=== PATIENT | male | born 1960 | race Caucasian/White ===

== ENCOUNTER 2021-03-29 19:48 | Inpatient (IN) | payer OTHER, SELFPAY ==
[2021-03-29] VITALS (10 sets, daily range): BP systolic 132–148; BP diastolic 78–89; PULSE 69–75; RESP 12–18; TEMP 36.5; O2SAT 97–100
--- NOTE | ~2021-03-29 | MR_ITS ---
EXAMINATION: MRA brain wo con DATE: 03/31/2021 16:36 INDICATION: Right hemiparesis. TECHNIQUE: Magnetic resonance angiography (MRA) of the brain was performed without intravenous contra st with T1-weighted SPGR by the 3D [id number]-dl-roriyd technique. Maximum intensity projection 3D-reconstr uctions were obtained. COMPARISON: Head CT 03/29/2021, brain MRI 08/18/2019 FINDINGS: There is severe motion artifact. There is a large distribution of chronic encephalomalacia in right f rontotemporal parietal region. IMPRESSION: 1. Severe motion artifact, which severely obscures the arteries. 2. Large distribution of chronic encephalomalacia in right frontotemporal parietal region. Reviewed, dictated and finalized at location B. IMPRESSION: 1. Severe motion artifact, which severely obscures the arteries. 2. Large distribution of chronic encephalomalacia in right frontotemporal parie lu region.
--- NOTE | ~2021-03-29 | CT_ITS ---
EXAMINATION: CT abdomen pelvis wo con DATE: 04/02/2021 14:20 INDICATION: Abdominal pain. Constipation. TECHNIQUE: Computed tomography (CT) of the abdomen and pelvis was performed without intravenous contr ast. The dose-length product was 1395.48 mGy-cm. Automated exposure control and iterative reconstruct ion technique were employed. COMPARISON: None. FINDINGS: Small left pleural effusion with underlying compressive atelectasis. Trace right pleural ef fusion. There is atherosclerosis without aneurysm. Younger catheter present in the bladder. Bladder wal l appears mildly thickened, although decompressed. 2.8 cm right renal cyst. There are calcified granulomas of the spleen. The liver, pancreas, adrenal g lands and left kidney are unremarkable. Normal appendix. Nonobstructive bowel gas pattern. Moderate o steoarthritis of the hips. Mild levoscoliosis. Advanced multilevel spondylosis of the lower thoracic and lumbar spine. Tiny fat-containing umbilical hernia. Gallbladder is present. IMPRESSION: 1. Small pleural effusions, left greater than right. 2: Possible mild bladder wall thickening, although not well distended. Consider cystitis in the appro priate clinical setting. Younger catheter present. Reviewed, dictated and finalized at location A. IMPRESSION: 1. Small pleural effusions, left greater than right. 2: Possible mild bladder wall thickening, although not well distended. Consider cystitis in the appropriate clinical setting. Younger catheter present.
--- NOTE | ~2021-03-29 | XR_ITS ---
XR chest 1V portable 03/29/2021 20:27 Indication: Chest pain Procedure: AP portable chest Comparison: 08/18/2019 Findings: Status post median sternotomy for CABG. Moderate cardiomegaly. Mild interstitial edema. Sma ll left pleural effusion. No pneumothorax. No acute osseous abnormality. Impression: 1: Cardiomegaly with mild interstitial edema. 2: Small left pleural effusion. Reviewed, dictated and finalized at location A. Impression: 1: Cardiomegaly with mild interstitial edema. 2: Small left pleural effusion.
--- NOTE | ~2021-03-29 | US_ITS ---
EXAMINATION: US renal BI DATE: 03/30/2021 14:27 INDICATION: Acute kidney injury. TECHNIQUE: Multiple ultrasound grayscale images of the kidneys were obtained. COMPARISON: Chest CT 05/01/2019 FINDINGS: The right kidney measures 11.9 x 7.3 x 4.9 cm. The left kidney measures 10.4 x 5.8 x 6.0 cm. The kidn eys demonstrate normal parenchymal echogenicity. There is a 3.0 cm cyst in right kidney. There is no hydronephrosis. The bladder is decompressed by a Younger catheter. IMPRESSION: 1. Normal kidney sizes. No hydronephrosis. Reviewed, dictated and finalized at location B.
--- NOTE | ~2021-03-29 | CT_ITS ---
EXAMINATION: CT brain wo con DATE: 03/29/2021 20:22 INDICATION: Right-sided weakness TECHNIQUE: Computed tomography (CT) of the head was performed without intravenous contrast. The dose- length product was 681.00 mGy-cm. Automated exposure control and iterative reconstruction technique w ere employed. COMPARISON: CT dated 08/17/2019 FINDINGS: There is a chronic right MCA distribution infarction with encephalomalacia and developing d ystrophic calcification. No ventriculomegaly or midline shift. Basilar cisterns are patent. There is intracranial atherosclerosis. No acute intracranial hemorrhage, infarction, mass or mass effect. Mild mucosal thickening of the maxillary and ethmoid sinuses. Mastoids are pneumatized. No depressed skul l fractures. Generalized atrophy. There are scattered mild periventricular and subcortical white hector er changes, most likely related to small vessel ischemic disease (microangiopathy). IMPRESSION: 1. No acute intracranial abnormality. 2: Large chronic right MCA distribution infarction with associated dystrophic calcification. 3: Chronic age-related findings. As per stroke protocol, I called these results to emergency room, discussed with Dr. Himanshu murillo MD at 03/29/2021 20:26 CDT. Reviewed, dictated and finalized at location A. IMPRESSION: 1. No acute intracranial abnormality. 2: Large chronic right MCA distribution infarction with associated dystrophic c alcification. 3: Chronic age-related findings. As per stroke protocol, I called these results to emergency room, discussed wit h Dr. Himanshu Patel MD at 03/29/2021 20:26 CDT.
--- NOTE | 2021-03-29 20:05 | ED.NEUROSD ---
HPI - Neuro Symptoms/Deficit General Chief Complaint: Weakness Stated Complaint: stroke like sx Time Seen by Provider: 03/29/21 19:55 Source: patient Mode of arrival: EMS Limitations: no limitations History of Present Illness HPI Narrative: Patient is a 60-year-old male complaining of right-sided weakness and numbness of right hand that started yesterday. Patient states that his right-sided weakness has increased today and unable to even get up. 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 Patient states he had a stroke while undergoing CABG. Patient states that he is only able to ambulate with assistance due to his stroke in 2019 that cause his left sided weakness, that is why he is in a detention. Patient is on Coumadin due to history of blood clots but patient cannot recall if it is either DVT or PE. Patient denies any speech or visual disturbance, headache, dizziness, chest pain, abdominal pain, nausea, vomiting, fever or chills. Related Data Allergies Allergy/AdvReac Type Severity Reaction Status Date / Time No Known Allergies Allergy Unknown Unverified 03/29/21 20:03 No Known Allergies Allergy Unknown Uncoded 03/29/21 20:03 Review of Systems Review of Systems: All systems reviewed & are unremarkable except as noted in HPI and below Constitutional: Constitutional: Denies body ache(s), Denies chills, Denies excessive sweating, Denies fatigue, Denies fever(s), Denies headache(s), Denies lethargy, Denies malaise and Denies weight loss Eyes: Eyes: Denies blurry vision, Denies change in vision and Denies loss of vision ENT: Denies dizziness, Denies ear discharge, Denies headache(s), Denies lip swelling, Denies epistaxis, Denies nasal congestion, Denies neck pain, Denies throat swelling and Denies tongue swelling Cardiovascular: Cardiovascular: Denies chest pain, Denies chest pain at rest, Denies chest pain with activity, Denies diaphoresis, Denies rapid heart rate, Denies edema, Denies irregular heart rhythm, Denies lightheadedness, Denies palpitations, Denies dyspnea and Denies dyspnea on exertion Respiratory: Respiratory: Denies chest congestion, Denies cough, Denies hemoptysis, Denies dyspnea and Denies dyspnea on exertion Gastrointestinal: Gastrointestinal: Denies abdominal pain, Denies melena, Denies hematochezia, Denies diarrhea, Denies nausea, Denies vomiting and Denies hematemesis Musculoskeletal: Musculoskeletal: Denies abnormal gait, Denies deformity, Denies joint swelling, Denies limited range of motion, Denies neck pain and Denies numbness Neurologic: Denies Abnormal speech present, Denies abnormal gait, Denies confusion, Denies dizziness, Denies headache(s), Denies loss of vision and Denies Other visual disturbances Psychiatric: Psychiatric: Denies confusion, Denies depression, Denies auditory hallucinations, Denies homicidal ideation and Denies suicidal ideation Endocrine: Endocrine: Denies cold intolerance, Denies excessive sweating, Denies fatigue, Denies heat intolerance and Denies palpitations Hematologic/Lymphatic: Hematologic/Lymphatic: Denies easy bleeding and Denies easy bruising Allergic/Immunologic: Allergic/Immunologic: Denies lip swelling, Denies throat swelling and Denies tongue swelling PMFSH Family History Family History Mother Patient's mother is Father Patient's father is Social History Social History Smoking status: Former smoker Second hand tobacco smoke exposure: No Smoking end date: 11/05/10 Alcohol intake: never Comments Past medical history: CVA, coronary artery disease, CABG, hypertension, diabetes, hyperlipidemia Social history: Former smoker, no EtOH use, no drug use, lives in a detention Exam Const: General: cooperative, healthy appearing, comfortable, no acute distress
[2021-03-29 20:50] LABS: Basophils Absolute Auto 0.1 K/mm3 (0.0-0.1); Basophils Percent Auto 0.6 % (0.2-1.2); Eosinophils Absolute Auto 0.3 K/mm3 (0-0.3); Eosinophils Percent Auto 2.8 % (0-4.4); Hemoglobin 9.5 g/dL (14.0-18.0); Immature Granulocyte Absolute 0.08 K/mm3 (0.00-0.031); Immature Granulocyte Percent A 0.9 % (0-0.5); Lymphocytes Absolute Auto 1.52 K/mm3 (0.9-3.2); Lymphocytes Percent Auto 16.2 % (18.3-44.2); Mean Corpuscular HGB Conc 30.6 g/dl (32-36); Mean Corpuscular Hemoglobin 28.4 pg (26-34); Mean Corpuscular Volume 92.8 fl (80-100); Mean Platelet Volume 11.6 fl (7.4-10.4); Monocytes Absolute Auto 0.8 K/mm3 (0.1-0.6); Monocytes Percent Auto 8.1 % (2.6-8.5); Neutrophils Absolute Auto 6.7 K/mm3 (1.3-6.7); Neutrophils Percent Auto 71.4 % (45.5-73.1); Nucleated Red Blood Cells Perc 0.4 % (0.0-0.2); Platelet Count Result 147 k/mm3 (150-375); Red Blood Count 3.34 M/mm3 (4.6-6.20); Red Cell Distribution Width 16.4 % (11.5-14.5); White Blood Count 9.4 K/mm3 (4.5-10.0)
[2021-03-29 21:09] LABS: INR 3.5; Prothrombin Time 35.3 Seconds (11.1-14.7)
[2021-03-29 21:10] LABS: Partial Thromboplastin Time 50.3 SECONDS (22.3-36.8)
[2021-03-29 21:11] LABS: Troponin I < 0.012 ng/mL (0.000-0.034)
[2021-03-29 21:29] LABS: Alanine Aminotransferase 16 U/L (4-50); Albumin Level 4.3 g/dL (3.5-5.1); Alkaline Phosphatase 91 U/L (38-126); Anion Gap 8 mmol/L (8-16); Aspartate Amino Transferase 28 U/L (17-59); Bilirubin,Total 0.4 mg/dL (0.2-1.3); Blood Urea Nitrogen 60 mg/dL (9-20); Calcium 8.8 mg/dL (8.4-10.2); Carbon Dioxide 21 mmol/L (22-30); Chloride 109 mmol/L (98-107); Estimated Glomerular Filt Rate 24; Glucose 175 mg/dL (75-110); Potassium 7.6 mmol/L (3.4-5.0); Sodium 138 mmol/L (137-145)
--- NOTE | 2021-03-29 21:56 | ECG_ITS ---
Measurements Intervals [place] Rate: 71 P: 62 WA: 205 QRS: -45 QRSD: 162 T: 105 QT: 422 QTc: 459 Interpretive Statements SINUS RHYTHM LEFT AXIS DEVIATION BORDERLINE AV CONDUCTION DELAY INTRAVENTRICULAR CONDUCTION DELAY POOR R WAVE PROGRESSION, ANTERIOR LEADS ST-T WAVE ABNORMALITY IN HIGH LATERAL LEADS- CONSIDER ISCHEMIA ABNORMAL ECG Electronically Signed On 03-30-2021 6:58:05 CDT by Valentín James D.O.
[2021-03-29 21:57] LABS: Potassium 7.6 mmol/L (3.4-5.0)
[2021-03-29] MEDS: ALBUTEROL SULFATE NEB 2.5 MG/0.5 ML INH 10 MG INHALATION (22:14)
[2021-03-29] MEDS: DEXTROSE 50% 25 GM/50 ML SYRINGE IV PUSH (22:24)
[2021-03-29] MEDS: INSULIN HUMAN REGULAR (*BKC) 100 UNITS/ML 10 UNITS IV PUSH (22:24)
[2021-03-29] MEDS: CALCIUM GLUC 1,000 MG/NS 50 ML 1,000 MG/50 ML BAG 100 MG IVPB (22:29)
[2021-03-29 22:46] LABS: Glucose Point of Care 214 mg/dl (65-105)
--- NOTE | 2021-03-29 23:20 | PC.NURSE ---
[facility] unable to reach phone for report. Will call again shortly.
[2021-03-30] VITALS (21 sets, daily range): BP systolic 125–170; BP diastolic 57–74; PULSE 60–78; RESP 16–23; TEMP 35.9–36.7; O2SAT 94–99; BMI 31.8
--- NOTE | 2021-03-30 00:15 | ADMGEN ---
This patient, Bayron Ann, was admitted to [facility] Room 232-01. Patient/family oriented to hospital policies and general routines including ID bracelet, bed and alarms, visiting hours, pain management, procedures, bathroom and other care routines, personal items, smoking policy, room service/diet, and visiting hours. Information on how to activate the Rapid Response Team has been discussed. Patient/Family are encouraged to report perceived risks to care and to ask questions if they do not understand what they are told or what they should do.
[2021-03-30] MEDS: LACTATED RINGERS 1,000 ML 90 ML IV CONT ×2 (00:35→11:56)
--- NOTE | 2021-03-30 02:13 | PM.IMHP ---
H&P: HPI History of Present Illness Date/Time: 03/30/21 02:13 Chief Complaint: RIGHT-SIDED WEAKNESS Narrative: THIS IS A 60-YEAR-OLD MALE WITH PAST MEDICAL HISTORY SIGNIFICANT FOR STROKE IN JANUARY OF 2019 PATIENT HAS BEEN LIVING AT [facility]CE HAS NOT BEEN ABLE TO GET REHABILITATION DUE TO INSURANCE ISSUES BUT TODAY HE WAS BROUGHT TO THE EMERGENCY ROOM AFTER HE WAS NOTED TO HAVE SOME RIGHT UPPER EXTREMITY WEAKNESS. PRELIMINARY WORKUP WAS HE IS ESSENTIALLY NONREVEALING FOR ACUTE ABNORMALITY BUT PATIENT HAS A CREATININE OF 2.[address] OF HEAD SHOWED OLD STROKE AND ENCEPHALOMALACIA. PATIENT DENIES ANY HEADACHES ANY CHANGES IN HIS VISION NO TINGLING OF OR NUMBNESS NO NAUSEA VOMITING OR DIARRHEA NO SHORTNESS OF BREATH NO COUGH NO SPUTUM PRODUCTION NO ABDOMINAL PAIN. Review of Systems Review of Systems: Narrative: NUMBNESS OF RIGHT UPPER EXTREMITY Constitutional: Constitutional: Denies chills, Denies fatigue and Denies fever(s) Eyes: Eyes: Denies change in vision ENT: Denies nasal congestion, Denies nasal discharge and Denies nasal obstruction Cardiovascular: Cardiovascular: Denies irregular heart rhythm, Denies leg edema, Denies lightheadedness, Denies radiating jaw, neck or arm pain, Denies palpitations, Denies dyspnea and Denies orthopnea Respiratory: Respiratory: Denies chest congestion, Denies cough, Denies dyspnea and Denies wheezing Gastrointestinal: Gastrointestinal: Denies dysphagia, Denies diarrhea, Denies nausea and Denies vomiting Genitourinary: Genitourinary: Denies dysuria Musculoskeletal: Musculoskeletal: Reports muscle weakness Integumentary/Breasts: Skin/Breast: Denies rash Neurologic: Reports focal weakness and Reports Sensory deficit (Neuro) Comments: LEFT-SIDED HEMIPARESIS Psychiatric: Psychiatric: Reports no additional psychiatric complaints Endocrine: Endocrine: Reports no additional endocrine complaints Hematologic/Lymphatic: Hematologic/Lymphatic: Reports no additional hematologic/lymphatic complaints Allergic/Immunologic: Allergic/Immunologic: Reports no additional allergic/immunologic complaints [facility] Family History Family History Mother Patient's mother is Father Patient's father is Social History Social History Smoking status: Former smoker Second hand tobacco smoke exposure: No Smoking end date: 11/05/10 Alcohol intake: never Substance use: never Substance use type: does not use Spiritual care concerns: No Meds Home Medications and Allergies Home Medications Medication Instructions Recorded Confirmed Type acetaminophen [Tylenol] 650 mg PO ONCE PRN 03/30/21 03/30/21 History allopurinol 300 mg PO DAILY 03/30/21 03/30/21 History aspirin [Aspir-81] 81 mg PO DAILY 03/30/21 03/30/21 History atorvastatin 40 mg PO HS 03/30/21 03/30/21 History baclofen 5 mg PO BIDPC 03/30/21 03/30/21 History biotin 5,000 mcg PO DAILY 03/30/21 03/30/21 History bisacodyl [Biscolax] 10 mg RECTAL DAILY PRN 03/30/21 03/30/21 History carvedilol 6.25 mg PO DAILY 03/30/21 03/30/21 History cetirizine 10 mg PO DAILY 03/30/21 03/30/21 History collagenase clostridium histo. 1 applic TOPICAL DAILY 03/30/21 03/30/21 History [Santyl] diclofenac sodium 2 g TOPICAL QID PRN 03/30/21 03/30/21 History docusate sodium 100 mg PO DAILY PRN 03/30/21 03/30/21 History doxycycline hyclate 100 mg PO BID 03/30/21 03/30/21 History finasteride 5 mg PO DAILY 03/30/21 03/30/21 History fluticasone propionate 1 spray INTRANASAL DAILY 03/30/21 03/30/21 History gabapentin 300 mg PO HS 03/30/21 03/30/21 History gabapentin 600 mg PO TID 03/30/21 03/30/21 History insulin glargine [Lantus U-100 30 unit SUBCUT HS 03/30/21 03/30/21 History Insulin] insulin lispro 3 unit SUBCUT AC 03/30/21 03/30/21 History levothyroxine 137 mcg PO QAM 03/30/21 03/30/21 History lisinop
[2021-03-30 02:48] LABS: Anion Gap 8 mmol/L (8-16); Blood Urea Nitrogen 58 mg/dL (9-20); Calcium 8.8 mg/dL (8.4-10.2); Carbon Dioxide 20 mmol/L (22-30); Chloride 112 mmol/L (98-107); Estimated CRCL calculation 37 ml/min; Estimated Glomerular Filt Rate 26; Glucose 96 mg/dL (75-110); Sodium 140 mmol/L (137-145)
[2021-03-30] MEDS: SODIUM POLYSTYRENE SULFONONATE 15 GM/60 ML BTL PO (03:13)
[2021-03-30] MEDS: LEVOTHYROXINE SODIUM 112 MCG TABLET PO (06:11)
[2021-03-30] MEDS: LEVOTHYROXINE SODIUM 25 MCG TABLET PO (06:11)
[2021-03-30 08:06] LABS: Glucose Point of Care 108 mg/dl (65-105)
[2021-03-30] MEDS: FUROSEMIDE INJ 40 MG/4 ML VIAL 20 MG IV PUSH ×2 (08:40→23:47)
[2021-03-30] MEDS: CALCIUM GLUCONATE 1,000 MG/10 ML VIAL 1000 MG IV PUSH (08:40)
[2021-03-30] MEDS: INSULIN HUMAN REGULAR (*BKC) 100 UNITS/ML 10 UNITS IV PUSH ×2 (08:40→21:31)
[2021-03-30] MEDS: DEXTROSE 50% 25 GM/50 ML SYRINGE IV PUSH ×2 (08:41→21:31)
[2021-03-30] MEDS: PANTOPRAZOLE 40 MG TABLET PO (08:58)
[2021-03-30] MEDS: ASPIRIN 81 MG ENTERIC TABLET PO (08:58)
[2021-03-30] MEDS: DOXYCYCLINE HYCLATE 100 MG TABLET PO ×2 (08:58→21:04)
[2021-03-30] MEDS: BACLOFEN 5 MG TABLET PO ×2 (08:58→17:52)
[2021-03-30] MEDS: LORATADINE 10 MG TABLET PO (08:58)
[2021-03-30] MEDS: FINASTERIDE 5 MG TABLET PO (08:58)
[2021-03-30] MEDS: FLUTICASONE PROPIONATE 0.05% NA SPR 16 GM BTL (*BKC) 1 SPRAY NASAL (08:59)
[2021-03-30] MEDS: GABAPENTIN 300 MG CAPSULE 600 MG PO ×3 (08:59→17:52)
[2021-03-30] MEDS: allopurinoL 300 MG TABLET PO (08:59)
[2021-03-30 10:07] LABS: Albumin Level 3.8 g/dL (3.5-5.1); Anion Gap 7 mmol/L (8-16); Blood Urea Nitrogen 53 mg/dL (9-20); Calcium 9.1 mg/dL (8.4-10.2); Carbon Dioxide 21 mmol/L (22-30); Chloride 109 mmol/L (98-107); Estimated CRCL calculation 39 ml/min; Estimated Glomerular Filt Rate 28; Glucose 254 mg/dL (75-110); Phosphorus 4.2 mg/dL (2.5-4.5); Potassium 6.6 mmol/L (3.4-5.0); Sodium 137 mmol/L (137-145)
[2021-03-30] MEDS: carvediloL 6.25 MG TABLET PO (10:46)
[2021-03-30 11:22] LABS: Alanine Aminotransferase 18 U/L (4-50); Alkaline Phosphatase 73 U/L (38-126); Anion Gap 9 mmol/L (8-16); Aspartate Amino Transferase 29 U/L (17-59); Bilirubin,Total 0.6 mg/dL (0.2-1.3); Blood Urea Nitrogen 50 mg/dL (9-20); Calcium 8.9 mg/dL (8.4-10.2); Carbon Dioxide 22 mmol/L (22-30); Chloride 108 mmol/L (98-107); Estimated CRCL calculation 39 ml/min; Estimated Glomerular Filt Rate 28; Glucose 147 mg/dL (75-110); Potassium 6.4 mmol/L (3.4-5.0); Sodium 139 mmol/L (137-145)
[2021-03-30] MEDS: DICLOFENAC SODIUM 1% 100 GM GEL (*BKC) 1 APPLIC TOPICAL (12:00)
[2021-03-30] MEDS: traMADol HCL (*CRX) 50 MG TABLET 100 MG PO (12:05)
[2021-03-30] MEDS: INSULIN ASPART (*BKC) 100 UNITS/ML SUB-Q (12:06)
[2021-03-30 12:30] LABS: Glucose Point of Care 188 mg/dl (65-105)
--- NOTE | 2021-03-30 13:30 | PM.CNNEP ---
Assessment and Plan Assessment and plan (1) Acute renal failure (ARF): Qualifiers: Acute renal failure type: unspecified Qualified Code(s): N17.9 - Acute kidney failure, unspecified Code(s): N17.9 - Acute kidney failure, unspecified Status: Acute Assessment and Plan: no reported history of renal insuffiency or CKD will try to get records fron his nursing facility regarding old labs renal ultrasound with obstruction check urine electrolytes and urine eosinophils check UA and urine culture making good urine output but no significant improvement in creatinine if this is really all acute, will likely proceed with serological evaluation as well follow trend of repeat labs and UOP (2) Acute hyperkalemia: Code(s): E87.5 - Hyperkalemia Status: Acute Assessment and Plan: although better, quite persistent since admission likely precipitated by ERAN + JOSE-I + spironolactone - long half life of spironolactone in renal failure likely more to blame continue medical management as K+ is coming down will add bicarb to IVFs to help follow repeat K+ levels (3) CVA (cerebrovascular accident): Qualifiers: CVA mechanism: unspecified Qualified Code(s): I63.9 - Cerebral infarction, unspecified Code(s): I63.9 - Cerebral infarction, unspecified Status: Acute Assessment and Plan: positive history admission symptoms concerning for recurrence MRI of brain ordered for further evaluation (4) Type 2 diabetes mellitus without complications: Code(s): E11.9 - Type 2 diabetes mellitus without complications Status: Acute Assessment and Plan: follow accuchecks glycemic control Will continue to follow. History of Present Illness Reason for Consult Consult date: 03/30/21 Reason for consult: acute renal failure and hyperkalemia Chief Complaint Chief complaint: ACUTE RENAL FAILURE, HYPERKALEMIA, CVA History of Present Illness Narrative: The patient is a 60-year-old male with a past medical history as outlined below who presented to [facility] Emergency room for further evaluation of right upper extremity weakness. Ever since he had his CVA in 2019, the patient has been residing his current usp. He was noted on the day of admission that he had more severe right upper extremity weakness in general. Given his history of strokes in the past, the nursing facility was concerned that he may have had another neurological event and hence he was transferred to the emergency room for further evaluation. Workup and evaluation in the emergency room demonstrated the patient hemodynamically stable and with what appeared to be a profound weakness in his right upper extremity. CT scan of head demonstrated an old CVA consistent with his history but nothing new in terms any intracranial pathology. Routine blood test demonstrated Redig hyperkalemia in association with an elevated creatinine presumed to be acute renal failure. Do these laboratory abnormalities as well as his right upper extremity weakness, he was admitted the hospital for further evaluation and therapy. Renal consultation was requested due to his acute kidney injury in association with severe hyperkalemia. Since his admission, repeat blood work has shown persistent his hyperkalemia although it is slowly improving. He has received multiple rounds of medical management in the form of calcium gluconate, D50, insulin, as well as Kayexalate. According the patient, he has never been told he has any issues or problems with his kidneys in the past and he does not recall ever being told that he had problems with his potassium either. Currently, at the time my visit, he appears to be in no acute distress. Review of Systems Review of Systems: Narrative: As per HPI. [facility] Past Medical History Medical History (Updated 03/30/21 @ 18:39 by Christian Stubbs
--- NOTE | 2021-03-30 13:38 | PM.IMPN ---
Progress Note: A&P Assessment and Plan (1) Acute hyperkalemia: Code(s): E87.5 - Hyperkalemia Status: Acute Assessment and Plan: Nephrology consult Hold lisinopril and Aldactone Status post calcium gluconate Albuterol inhaler IV insulin Kayexalate Nephrology recommendation (2) CVA (cerebrovascular accident): Qualifiers: CVA mechanism: unspecified Qualified Code(s): I63.9 - Cerebral infarction, unspecified Code(s): I63.9 - Cerebral infarction, unspecified Status: Acute Assessment and Plan: OLD STROKE Patient have no right upper extremity weakness rule out acute stroke discussed with neurology MRI will be done once hyperkalemia improved (3) Acute renal failure (ARF): Qualifiers: Acute renal failure type: unspecified Qualified Code(s): N17.9 - Acute kidney failure, unspecified Code(s): N17.9 - Acute kidney failure, unspecified Status: Acute Assessment and Plan: Renal ultrasound Younger catheter nephrology consult S (4) Gout: Code(s): M10.9 - Gout, unspecified Status: Acute Assessment and Plan: Continue allopurinol (5) Type 2 diabetes mellitus without complications: Code(s): E11.9 - Type 2 diabetes mellitus without complications Status: Acute Assessment and Plan: CONTINUE INSULIN GLARGINE AND LISPRO ACCU-CHEKS AC AND HS HOLDING METFORMIN DUE TO RENAL FAILURE Lantus and lispro Accu-Chek hold metformin due to renal failure and as the patient was admitted to the hospital (6) Hyperlipidemia, unspecified: Code(s): E78.5 - Hyperlipidemia, unspecified Status: Acute Assessment and Plan: Continue statin Subjective Date/time seen: 03/30/21 13:38 Interval history: Patient seen and examined 60 years old male with past medical history of stroke 2019 on the left side presented from nursing facility with right upper extremity weakness at the ER CT scan was negative for acute stroke but patient was found to have acute renal failure and potassium of above 7 patient was admitted to the hospital for further evaluation and treatment I discussed with the hand tube winder today regarding hyperkalemia and patient current medication including lisinopril and Aldactone Patient feels weak still have right upper extremity weakness Patient denies fever headache chest pain shortness of breath I am seeing the patient for right upper extremity weakness Review of Systems Constitutional: Constitutional: Denies fever(s) Exam Narrative: Exam Narrative: Alert Chest no wheeze crackles Abdomen nontender nondistended CVS S1 + S2 Pre-existing left-sided weakness Right arm weakness Objective Data Vital Signs Vital Signs: Vital Signs - 24 hr 03/29/21 19:52 03/29/21 20:01 03/29/21 21:15 Temperature 97.7 F Pulse Rate 74 74 69 Respiratory Rate 13 18 12 Blood Pressure 137/89 137/89 Pulse Oximetry 98 97 97 03/29/21 21:55 03/29/21 22:01 03/29/21 22:15 Temperature Pulse Rate 71 72 73 Respiratory Rate 14 16 15 Blood Pressure 136/79 133/80 Pulse Oximetry 99 99 03/29/21 22:31 03/29/21 23:01 03/29/21 23:15 Temperature Pulse Rate 69 75 74 Respiratory Rate 17 16 13 Blood Pressure 132/80 148/82 H Pulse Oximetry 100 100 03/29/21 23:31 03/30/21 00:00 03/30/21 02:00 Temperature 97.4 F L Pulse Rate 75 74 78 Respiratory Rate 16 18 Blood Pressure 143/78 H 170/72 H Pulse Oximetry 98 95 03/30/21 04:00 03/30/21 05:56 03/30/21 08:04 Temperature 97.6 F 97.0 F L Pulse Rate 64 72 69 Respiratory Rate 20 23 H Blood Pressure 130/74 129/67 Pulse Oximetry 97 96 03/30/21 12:44 Temperature 96.7 F L Pulse Rate 76 Respiratory Rate 22 H Blood Pressure 137/57 L Pulse Oximetry 96 Intake/Output Intake/Output: Intake & Output 03/27/21 03/28/21 03/29/21 03/30/21 23:59 23:59 23:59 23:59 Intake Total 50 1240 Output Total 3250 Balance 50 -2009 Meds/Results Med
[2021-03-30] MEDS: COLLAGENASE OINT 30 GM TUBE 1 APPLIC TOPICAL (15:37)
[2021-03-30] MEDS: SODIUM POLYSTYRENE SULFONONATE 15 GM/60 ML BTL 30 GM PO ×2 (15:37→22:38)
[2021-03-30 17:14] LABS: Glucose Point of Care 146 mg/dl (65-105)
[2021-03-30 20:18] LABS: Glucose Point of Care 170 mg/dl (65-105)
[2021-03-30 20:22] LABS: Anion Gap 7 mmol/L (8-16); Blood Urea Nitrogen 52 mg/dL (9-20); Calcium 8.9 mg/dL (8.4-10.2); Carbon Dioxide 23 mmol/L (22-30); Chloride 108 mmol/L (98-107); Estimated CRCL calculation 41 ml/min; Estimated Glomerular Filt Rate 29; Glucose 170 mg/dL (75-110); Phosphorus 4.8 mg/dL (2.5-4.5); Potassium 6.8 mmol/L (3.4-5.0); Sodium 138 mmol/L (137-145)
[2021-03-30] MEDS: INSULIN GLARGINE (*BKC) 100 UNITS/ML 30 UNITS SUB-Q (21:01)
[2021-03-30] MEDS: GABAPENTIN 300 MG CAPSULE PO (21:04)
[2021-03-30] MEDS: TAMSULOSIN HCL 0.4 MG CAPSULE 0.8 MG PO (21:04)
[2021-03-30] MEDS: rOPINIRole HCL 1 MG TABLET PO (21:05)
[2021-03-30] MEDS: ATORVASTATIN 40 MG TABLET PO (21:05)
[2021-03-30] MEDS: SERTRALINE HCL 50 MG TABLET PO (21:05)
[2021-03-30] MEDS: ALBUTEROL SULFATE NEB 2.5 MG/0.5 ML INH 5 MG INHALATION (21:24)
[2021-03-30] MEDS: CALCIUM GLUC 1,000 MG/NS 50 ML 1,000 MG/50 ML BAG 100 MG IVPB (21:31)
[2021-03-30] MEDS: ALBUTEROL SULFATE NEB 2.5 MG/0.5 ML INH 10 MG INHALATION (21:48)
[2021-03-30 23:36] LABS: Glucose Point of Care 186 mg/dl (65-105)
[2021-03-30] MEDS: SODIUM BICARBONATE 8.4% 75 MEQ in SODIUM CHLORIDE 0.45% 1,000 ML 60 ML IV CONT (23:47)
[2021-03-31] VITALS (16 sets, daily range): BP systolic 133–150; BP diastolic 63–68; PULSE 67–96; RESP 20–22; TEMP 35.8–36.6; O2SAT 93–97
[2021-03-31 00:21] LABS: Total Protein Urine Random 15 mg/dL
[2021-03-31 00:44] LABS: Anion Gap 9 mmol/L (8-16); Blood Urea Nitrogen 52 mg/dL (9-20); Calcium 8.7 mg/dL (8.4-10.2); Carbon Dioxide 22 mmol/L (22-30); Chloride 108 mmol/L (98-107); Estimated CRCL calculation 44 ml/min; Estimated Glomerular Filt Rate 32; Glucose 183 mg/dL (75-110); Sodium 139 mmol/L (137-145)
[2021-03-31 01:20] LABS: Eosinophil Urine None Seen % (None Seen)
[2021-03-31 02:23] LABS: Add Urine Microscopic? YES; Appearance Urine Clear (Clear); Bilirubin Urine Negative (Negative); Blood Urine 1+ (Negative); Color Urine Colorless (Yellow); Glucose Urine UA Negative (Negative); Ketones Urine Negative (Negative); Leukocyte Esterase Ur Negative LEU/UL (Negative); Nitrate Urine Negative (Negative); Protein Urine Negative (Negative); Specific Grav Ur 1.005 (1.001-1.035); WBC Urine 0-3 /hpf
[2021-03-31] MEDS: ACETAMINOPHEN 325 MG TABLET 650 MG PO (03:17)
[2021-03-31 03:42] LABS: Creatinine Urine 13.2 mg/dL; Ur Ttl Prot Creatinine Ratio 1.14 mg/mg (0-0.20)
[2021-03-31 04:07] LABS: Sodium Urine Random 117 meq/L
[2021-03-31 05:19] LABS: Albumin Level 3.9 g/dL (3.5-5.1); Anion Gap 9 mmol/L (8-16); Blood Urea Nitrogen 47 mg/dL (9-20); Calcium 8.9 mg/dL (8.4-10.2); Carbon Dioxide 24 mmol/L (22-30); Chloride 107 mmol/L (98-107); Estimated CRCL calculation 42 ml/min; Estimated Glomerular Filt Rate 30; Glucose 156 mg/dL (75-110); Phosphorus 4.6 mg/dL (2.5-4.5); Sodium 140 mmol/L (137-145)
[2021-03-31 06:03] LABS: INR 3.5; Prothrombin Time 35.5 Seconds (11.1-14.7)
[2021-03-31] MEDS: LEVOTHYROXINE SODIUM 25 MCG TABLET PO (06:13)
[2021-03-31] MEDS: LEVOTHYROXINE SODIUM 112 MCG TABLET PO (06:13)
[2021-03-31] MEDS: traMADol HCL (*CRX) 50 MG TABLET 100 MG PO ×2 (06:18→19:58)
[2021-03-31] MEDS: DEXTROSE 50% 25 GM/50 ML SYRINGE IV PUSH (07:01)
[2021-03-31] MEDS: INSULIN HUMAN REGULAR (*BKC) 100 UNITS/ML 10 UNITS IV PUSH (07:02)
[2021-03-31] MEDS: CALCIUM GLUC 1,000 MG/NS 50 ML 1,000 MG/50 ML BAG 100 MG IVPB (07:11)
[2021-03-31] MEDS: allopurinoL 300 MG TABLET PO (09:10)
[2021-03-31] MEDS: LORATADINE 10 MG TABLET PO (09:10)
[2021-03-31] MEDS: ASPIRIN 81 MG ENTERIC TABLET PO (09:10)
[2021-03-31] MEDS: FLUTICASONE PROPIONATE 0.05% NA SPR 16 GM BTL (*BKC) 1 SPRAY NASAL (09:11)
[2021-03-31] MEDS: DOXYCYCLINE HYCLATE 100 MG TABLET PO ×2 (09:11→20:01)
[2021-03-31] MEDS: GABAPENTIN 300 MG CAPSULE 600 MG PO ×3 (09:11→16:42)
[2021-03-31] MEDS: FINASTERIDE 5 MG TABLET PO (09:11)
[2021-03-31] MEDS: carvediloL 6.25 MG TABLET PO (09:11)
[2021-03-31] MEDS: PANTOPRAZOLE 40 MG TABLET PO (09:11)
[2021-03-31 11:39] LABS: Albumin Level 3.9 g/dL (3.5-5.1); Anion Gap 9 mmol/L (8-16); Blood Urea Nitrogen 43 mg/dL (9-20); Calcium 9.1 mg/dL (8.4-10.2); Carbon Dioxide 25 mmol/L (22-30); Chloride 107 mmol/L (98-107); Estimated CRCL calculation 44 ml/min; Estimated Glomerular Filt Rate 32; Glucose 134 mg/dL (75-110); Phosphorus 4.6 mg/dL (2.5-4.5); Potassium 5.6 mmol/L (3.4-5.0); Sodium 141 mmol/L (137-145)
[2021-03-31 11:46] LABS: Complement C3 99 mg/dL (88-165)
[2021-03-31 12:24] LABS: Glucose Point of Care 129 mg/dl (65-105)
--- NOTE | 2021-03-31 12:46 | PM.IMPN ---
Progress Note: A&P Assessment and Plan (1) Acute hyperkalemia: Code(s): E87.5 - Hyperkalemia Status: Acute Assessment and Plan: Nephrology consult Hold lisinopril and Aldactone Status post calcium gluconate Albuterol inhaler IV insulin Kayexalate Improved low-potassium diet Nephrology recommendation appreciated (2) CVA (cerebrovascular accident): Qualifiers: CVA mechanism: unspecified Qualified Code(s): I63.9 - Cerebral infarction, unspecified Code(s): I63.9 - Cerebral infarction, unspecified Status: Acute Assessment and Plan: OLD STROKE Patient have no right upper extremity weakness rule out acute stroke discussed with neurology MRI pending MRI from today (3) Acute renal failure (ARF): Qualifiers: Acute renal failure type: unspecified Qualified Code(s): N17.9 - Acute kidney failure, unspecified Code(s): N17.9 - Acute kidney failure, unspecified Status: Acute Assessment and Plan: Renal ultrasound Younger catheter nephrology consult continue hydration (4) Gout: Code(s): M10.9 - Gout, unspecified Status: Acute Assessment and Plan: Continue allopurinol (5) Type 2 diabetes mellitus without complications: Code(s): E11.9 - Type 2 diabetes mellitus without complications Status: Acute Assessment and Plan: Lantus and lispro Accu-Chek hold metformin due to renal failure and as the patient was admitted to the hospital (6) Hyperlipidemia, unspecified: Code(s): E78.5 - Hyperlipidemia, unspecified Status: Acute Assessment and Plan: Continue statin Anticipate discharge once kidney function improve expected on 04/02/2021 Subjective Date/time seen: 03/31/21 12:46 Interval history: Patient seen and examined 60 years old male with past medical history of stroke 2019 on the left side presented from nursing facility with right upper extremity weakness at the ER CT scan was negative for acute stroke but patient was found to have acute renal failure and potassium of above 7 patient was admitted to the hospital for further evaluation and treatment Improved after DC Aldactone and lisinopril lying given Kayexalate nephrology recommendation appreciated Right arm weakness has significantly improved Patient denies fever headache chest pain shortness of breath I am seeing the patient for right upper extremity weakness Exam Narrative: Exam Narrative: Alert Chest no wheeze crackles Abdomen nontender nondistended CVS S1 + S2 Pre-existing left-sided weakness Right arm weakness significantly improved from yesterday Objective Data Vital Signs Vital Signs: Vital Signs - 24 hr 03/30/21 14:00 03/30/21 16:00 03/30/21 17:32 Temperature 96.8 F L Pulse Rate 77 69 66 Respiratory Rate 21 H Blood Pressure 127/63 Pulse Oximetry 95 03/30/21 18:00 03/30/21 19:57 03/30/21 20:00 Temperature 98.1 F Pulse Rate 63 66 66 Respiratory Rate 18 Blood Pressure 125/61 Pulse Oximetry 99 03/30/21 21:29 03/30/21 21:35 03/30/21 22:00 Temperature Pulse Rate 67 74 Respiratory Rate 16 Blood Pressure Pulse Oximetry 94 03/30/21 22:34 03/30/21 23:41 03/31/21 00:00 Temperature 97.9 F Pulse Rate 72 60 73 Respiratory Rate 16 18 Blood Pressure 130/60 Pulse Oximetry 97 03/31/21 01:47 03/31/21 04:00 03/31/21 05:28 Temperature 97.9 F Pulse Rate 74 67 77 Respiratory Rate 20 Blood Pressure 133/64 Pulse Oximetry 97 03/31/21 08:00 03/31/21 08:27 03/31/21 09:11 Temperature 96.7 F L Pulse Rate 80 83 83 Respiratory Rate 21 H Blood Pressure 148/63 H Pulse Oximetry 94 03/31/21 10:00 03/31/21 12:34 Temperature 97.0 F L Pulse Rate 84 77 Respiratory Rate 22 H Blood Pressure 137/68 Pulse Oximetry 94 Intake/Output Intake/Output: Intake & Output 03/28/21 03/29/21 03/30/21 03/31/21 23:59 23:59 23:59 23:59 Intake Total 50 5704 138
[2021-03-31] MEDS: GABAPENTIN 300 MG CAPSULE PO (13:31)
[2021-03-31] MEDS: LORazepam INJ (*CRX) 2 MG/ML VIAL 0.5 MG IV PUSH (15:24)
--- NOTE | 2021-03-31 15:43 | P.PNNP_ITS ---
Progress Note: A&P Assessment and Plan (1) Acute renal failure (ARF): Qualifiers: Acute renal failure type: unspecified Qualified Code(s): N17.9 - Acute kidney failure, unspecified Code(s): N17.9 - Acute kidney failure, unspecified Status: Acute Assessment and Plan: * normal creatinine by retirement labs about about a month ago * renal ultrasound with obstruction * urine electrolytes non-prerenal and urine eosinophils negative * making good urine output but no significant improvement in creatinine * evidence of proteinuria by urine protein/creatinine ratio but no protein on urinalysis... * proceed with serological evaluation * follow trend of repeat labs and UOP (2) Acute hyperkalemia: Code(s): E87.5 - Hyperkalemia Status: Acute Assessment and Plan: * although better, quite persistent since admission * likely precipitated by ERAN + JOSE-I + spironolactone - long half life of spironolactone in renal failure likely more to blame * continue medical management as K+ is coming down * follow repeat K+ levels (3) CVA (cerebrovascular accident): Qualifiers: CVA mechanism: unspecified Qualified Code(s): I63.9 - Cerebral infarction, unspecified Code(s): I63.9 - Cerebral infarction, unspecified Status: Acute Assessment and Plan: * positive history * admission symptoms concerning for recurrence * MRI of brain today for further evaluation (4) Type 2 diabetes mellitus without complications: Code(s): E11.9 - Type 2 diabetes mellitus without complications Status: Acute Assessment and Plan: * follow accuchecks * glycemic control Will continue to follow. Subjective Date/time seen: 03/31/21 15:43 No apparent distress voiced at the time of my visit; potassium is finally improving by last check; right arm weakness seems to be doing better as well; no apparent issues or events overnight or earlier this AM; no other complaints to report currently. Exam Narrative: Exam Narrative: General: WD/WN male in NAD Heart: normal S1 and S2; no rub Lungs: clear to auscultation Abdomen: soft, nontender, nondistended, positive bowel sounds Extremities: no cyanosis or clubbing; no edema Skin: warm and dry Objective Data Vital Signs Vital Signs: Vital Signs Temp Pulse Resp BP Pulse Ox 03/31/21 14:00 79 03/31/21 12:34 36.1 C L 77 22 H 137/68 94 03/31/21 12:00 80 03/31/21 10:00 84 03/31/21 09:11 83 03/31/21 08:27 35.9 C L 83 21 H 148/63 H 94 03/31/21 08:00 80 03/31/21 05:28 77 03/31/21 04:00 36.6 C 67 20 133/64 97 03/31/21 01:47 74 03/31/21 00:00 73 03/30/21 23:41 36.6 C 60 18 130/60 97 03/30/21 22:34 72 16 03/30/21 22:00 74 03/30/21 21:35 94 03/30/21 21:29 67 16 03/30/21 20:00 66 03/30/21 19:57 36.7 C 66 18 125/61 99 03/30/21 18:00 63 03/30/21 17:32 36.0 C L 66 21 H 127/63 95 Intake/Output Intake/Output: Intake & Output 03/28/21 03/29/21 03/30/21 03/31/21 23:59 23:59 23:59 23:59 Intake Total 50 1530 1380 Output Total 8487 3607 Balance 94 -9154 -7084 Meds/Results Medications:
--- NOTE | 2021-03-31 15:43 | PM.PNNEP ---
Progress Note: A&P Assessment and Plan (1) Acute renal failure (ARF): Qualifiers: Acute renal failure type: unspecified Qualified Code(s): N17.9 - Acute kidney failure, unspecified Code(s): N17.9 - Acute kidney failure, unspecified Status: Acute Assessment and Plan: normal creatinine by [facility] labs about about a month ago renal ultrasound with obstruction urine electrolytes non-prerenal and urine eosinophils negative making good urine output but no significant improvement in creatinine evidence of proteinuria by urine protein/creatinine ratio but no protein on urinalysis... proceed with serological evaluation follow trend of repeat labs and UOP (2) Acute hyperkalemia: Code(s): E87.5 - Hyperkalemia Status: Acute Assessment and Plan: although better, quite persistent since admission likely precipitated by ERAN + JOSE-I + spironolactone - long half life of spironolactone in renal failure likely more to blame continue medical management as K+ is coming down follow repeat K+ levels (3) CVA (cerebrovascular accident): Qualifiers: CVA mechanism: unspecified Qualified Code(s): I63.9 - Cerebral infarction, unspecified Code(s): I63.9 - Cerebral infarction, unspecified Status: Acute Assessment and Plan: positive history admission symptoms concerning for recurrence MRI of brain today for further evaluation (4) Type 2 diabetes mellitus without complications: Code(s): E11.9 - Type 2 diabetes mellitus without complications Status: Acute Assessment and Plan: follow accuchecks glycemic control Will continue to follow. Subjective Date/time seen: 03/31/21 15:43 No apparent distress voiced at the time of my visit; potassium is finally improving by last check; right arm weakness seems to be doing better as well; no apparent issues or events overnight or earlier this AM; no other complaints to report currently. Exam Narrative: Exam Narrative: General: WD/WN male in NAD Heart: normal S1 and S2; no rub Lungs: clear to auscultation Abdomen: soft, nontender, nondistended, positive bowel sounds Extremities: no cyanosis or clubbing; no edema Skin: warm and dry Objective Data Vital Signs Vital Signs: Vital Signs Temp Pulse Resp BP Pulse Ox 03/31/21 14:00 79 03/31/21 12:34 36.1 C L 77 22 H 137/68 94 03/31/21 12:00 80 03/31/21 10:00 84 03/31/21 09:11 83 03/31/21 08:27 35.9 C L 83 21 H 148/63 H 94 03/31/21 08:00 80 03/31/21 05:28 77 03/31/21 04:00 36.6 C 67 20 133/64 97 03/31/21 01:47 74 03/31/21 00:00 73 03/30/21 23:41 36.6 C 60 18 130/60 97 03/30/21 22:34 72 16 03/30/21 22:00 74 03/30/21 21:35 94 03/30/21 21:29 67 16 03/30/21 20:00 66 03/30/21 19:57 36.7 C 66 18 125/61 99 03/30/21 18:00 63 03/30/21 17:32 36.0 C L 66 21 H 127/63 95 Intake/Output Intake/Output: Intake & Output 03/28/21 03/29/21 03/30/21 03/31/21 23:59 23:59 23:59 23:59 Intake Total 50 1530 1380 Output Total 6200 4375 Balance 61 -6540 -2578 Meds/Results Medications: Active Medications Generic Name Dose Route Start Last Admin Trade Name Anton PRN Reason Stop Dose Admin Acetaminophen 650 mg 03/30/21 01:57 03/31/21 03:17 Acetaminophen 325 Mg Tablet PO 650 mg Q6H PRN Administration Mild Pain (Score 1-4) OR FEVER Allopurinol 300 mg 03/30/21 08:00 03/31/21 09:10 Allopurinol 300 Mg Tablet PO 300 mg DAILY@0800 [facility] Administration Aspirin 81 mg 03/30/21 09:00 03/31/21 09:10 Aspirin 81 Mg Enteric Tablet PO 81 mg DAILY JERRY Administration Atorvastatin Calcium 40 mg 03/30/21 21:00 03/30/21 21:05 Atorvastatin 40 Mg Tablet PO 40 mg HS JERRY Administration Baclofen 5 mg 03/31/21 16:00 Baclofen 5 Mg Tablet PO 0000,1600 [facility] Bisacod
[2021-03-31] MEDS: BACLOFEN 5 MG TABLET PO ×2 (16:43→23:16)
[2021-03-31] MEDS: SODIUM BICARBONATE 8.4% 75 MEQ in SODIUM CHLORIDE 0.45% 1,000 ML 60 ML IV CONT (16:43)
[2021-03-31] MEDS: ALPRAZolam (*CRX) 0.25 MG TABLET PO (17:22)
[2021-03-31 17:33] LABS: Glucose Point of Care 162 mg/dl (65-105)
[2021-03-31] MEDS: INSULIN ASPART (*BKC) 100 UNITS/ML SUB-Q (18:13)
[2021-03-31 19:02] LABS: Albumin Level 4.2 g/dL (3.5-5.1); Anion Gap 9 mmol/L (8-16); Blood Urea Nitrogen 42 mg/dL (9-20); Calcium 9.2 mg/dL (8.4-10.2); Carbon Dioxide 25 mmol/L (22-30); Chloride 107 mmol/L (98-107); Estimated CRCL calculation 47 ml/min; Estimated Glomerular Filt Rate 34; Glucose 170 mg/dL (75-110); Phosphorus 4.3 mg/dL (2.5-4.5); Potassium 5.3 mmol/L (3.4-5.0); Sodium 141 mmol/L (137-145)
[2021-03-31] MEDS: MELATONIN 5 MG TABLET PO (20:01)
[2021-03-31] MEDS: TAMSULOSIN HCL 0.4 MG CAPSULE 0.8 MG PO (20:01)
[2021-03-31] MEDS: rOPINIRole HCL 1 MG TABLET PO (20:01)
[2021-03-31] MEDS: ATORVASTATIN 40 MG TABLET PO (20:01)
[2021-03-31] MEDS: SERTRALINE HCL 50 MG TABLET PO (20:02)
[2021-03-31] MEDS: INSULIN GLARGINE (*BKC) 100 UNITS/ML 30 UNITS SUB-Q (20:14)
[2021-03-31 20:15] LABS: Glucose Point of Care 201 mg/dl (65-105)
[2021-04-01] VITALS (11 sets, daily range): BP systolic 127–169; BP diastolic 50–79; PULSE 72–86; RESP 18–20; TEMP 36.1–36.9; O2SAT 92–99
[2021-04-01 05:06] LABS: INR 2.1; Prothrombin Time 24.5 Seconds (11.1-14.7)
[2021-04-01 05:10] LABS: Albumin Level 3.7 g/dL (3.5-5.1); Anion Gap 8 mmol/L (8-16); Blood Urea Nitrogen 34 mg/dL (9-20); Calcium 8.7 mg/dL (8.4-10.2); Carbon Dioxide 24 mmol/L (22-30); Chloride 109 mmol/L (98-107); Estimated CRCL calculation 55 ml/min; Estimated Glomerular Filt Rate 41; Glucose 112 mg/dL (75-110); Phosphorus 4.2 mg/dL (2.5-4.5); Potassium 4.5 mmol/L (3.4-5.0); Sodium 141 mmol/L (137-145)
[2021-04-01] MEDS: LEVOTHYROXINE SODIUM 112 MCG TABLET PO (06:06)
[2021-04-01] MEDS: LEVOTHYROXINE SODIUM 25 MCG TABLET PO (06:06)
[2021-04-01 08:52] LABS: Glucose Point of Care 110 mg/dl (65-105)
[2021-04-01] MEDS: INSULIN ASPART (*BKC) 100 UNITS/ML SUB-Q ×3 (08:58→17:44)
[2021-04-01] MEDS: FLUTICASONE PROPIONATE 0.05% NA SPR 16 GM BTL (*BKC) 1 SPRAY NASAL (09:00)
[2021-04-01] MEDS: ASPIRIN 81 MG ENTERIC TABLET PO (09:01)
[2021-04-01] MEDS: GABAPENTIN 300 MG CAPSULE 600 MG PO ×3 (09:01→17:45)
[2021-04-01] MEDS: LORATADINE 10 MG TABLET PO (09:01)
[2021-04-01] MEDS: DOXYCYCLINE HYCLATE 100 MG TABLET PO ×2 (09:02→19:50)
[2021-04-01] MEDS: FINASTERIDE 5 MG TABLET PO (09:02)
[2021-04-01] MEDS: allopurinoL 300 MG TABLET PO (09:02)
[2021-04-01] MEDS: carvediloL 6.25 MG TABLET PO (09:03)
[2021-04-01] MEDS: PANTOPRAZOLE 40 MG TABLET PO (09:03)
[2021-04-01] MEDS: DOCUSATE SODIUM 100 MG CAPSULE PO (09:06)
[2021-04-01] MEDS: SODIUM BICARBONATE 8.4% 75 MEQ in SODIUM CHLORIDE 0.45% 1,000 ML 60 ML IV CONT (10:44)
[2021-04-01 11:44] LABS: Glucose Point of Care 191 mg/dl (65-105)
--- NOTE | 2021-04-01 14:28 | P.PNNP_ITS ---
Progress Note: A&P Assessment and Plan (1) Acute renal failure (ARF): Qualifiers: Acute renal failure type: unspecified Qualified Code(s): N17.9 - Acute kidney failure, unspecified Code(s): N17.9 - Acute kidney failure, unspecified Status: Acute Assessment and Plan: * normal creatinine by assisted labs about about a month ago * renal ultrasound with obstruction * urine electrolytes non-prerenal and urine eosinophils negative * creatinine seems to have improved. * evidence of proteinuria by urine protein/creatinine ratio but no protein on urinalysis... * proceed with serological evaluation * check creatinine in am (2) Acute hyperkalemia: Code(s): E87.5 - Hyperkalemia Status: Acute Assessment and Plan: * although better, quite persistent since admission * K okay now. (3) CVA (cerebrovascular accident): Qualifiers: CVA mechanism: unspecified Qualified Code(s): I63.9 - Cerebral infarction, unspecified Code(s): I63.9 - Cerebral infarction, unspecified Status: Acute Assessment and Plan: * positive history * admission symptoms concerning for recurrence * MRI of brain today for further evaluation (4) Type 2 diabetes mellitus without complications: Code(s): E11.9 - Type 2 diabetes mellitus without complications Status: Acute Assessment and Plan: * follow accuchecks * glycemic control Subjective Date/time seen: 04/01/21 14:28 Interval history: patient feels okay. up in a chair. no cp or sob. eating okay Exam Narrative: Exam Narrative: General: WD/WN male in NAD Heart: normal S1 and S2; no rub Lungs: clear Abdomen: soft, nontender, nondistended, positive bowel sounds Extremities: no cyanosis or clubbing; no edema Skin: no rash Objective Data Vital Signs Vital Signs: Vital Signs - 24 hr 03/31/21 16:50 03/31/21 18:00 03/31/21 19:33 Temperature 35.8 C L 36.5 C Pulse Rate 86 96 90 Respiratory Rate 20 20 Blood Pressure 150/68 H 150/67 H Pulse Oximetry 93 94 03/31/21 20:00 03/31/21 22:00 04/01/21 00:00 Temperature 36.6 C Pulse Rate 89 95 86 Respiratory Rate 19 Blood Pressure 143/68 H Pulse Oximetry 04/01/21 01:37 04/01/21 04:00 04/01/21 06:00 Temperature 36.6 C Pulse Rate 72 79 77 Respiratory Rate 20 Blood Pressure 127/50 L Pulse Oximetry 94 04/01/21 08:00 04/01/21 09:03 04/01/21 10:00 Temperature 36.2 C L Pulse Rate 77 86 76 Respiratory Rate 18 Blood Pressure 139/76 Pulse Oximetry 99 04/01/21 12:00 04/01/21 14:12 Temperature 36.2 C L Pulse Rate 79 Respiratory Rate 18 Blood Pressure 139/76 Pulse Oximetry 99 97 Intake/Output Intake/Output: Intake & Output 03/29/21 03/30/21 03/31/21 04/01/21 23:59 23:59 23:59 23:59 Intake Total 50 9370 2605 1815 Output Total 2539 1679 6720 Balance 03 -4248 -3102 415 Meds/Results Medications: Active Medications Generic Name Dose Route Start Last Admin Tr
--- NOTE | 2021-04-01 14:28 | PM.PNNEP ---
Progress Note: A&P Assessment and Plan (1) Acute renal failure (ARF): Qualifiers: Acute renal failure type: unspecified Qualified Code(s): N17.9 - Acute kidney failure, unspecified Code(s): N17.9 - Acute kidney failure, unspecified Status: Acute Assessment and Plan: normal creatinine by senior care labs about about a month ago renal ultrasound with obstruction urine electrolytes non-prerenal and urine eosinophils negative creatinine seems to have improved. evidence of proteinuria by urine protein/creatinine ratio but no protein on urinalysis... proceed with serological evaluation check creatinine in am (2) Acute hyperkalemia: Code(s): E87.5 - Hyperkalemia Status: Acute Assessment and Plan: although better, quite persistent since admission K okay now. (3) CVA (cerebrovascular accident): Qualifiers: CVA mechanism: unspecified Qualified Code(s): I63.9 - Cerebral infarction, unspecified Code(s): I63.9 - Cerebral infarction, unspecified Status: Acute Assessment and Plan: positive history admission symptoms concerning for recurrence MRI of brain today for further evaluation (4) Type 2 diabetes mellitus without complications: Code(s): E11.9 - Type 2 diabetes mellitus without complications Status: Acute Assessment and Plan: follow accuchecks glycemic control Subjective Date/time seen: 04/01/21 14:28 Interval history: patient feels okay. up in a chair. no cp or sob. eating okay Exam Narrative: Exam Narrative: General: WD/WN male in NAD Heart: normal S1 and S2; no rub Lungs: clear Abdomen: soft, nontender, nondistended, positive bowel sounds Extremities: no cyanosis or clubbing; no edema Skin: no rash Objective Data Vital Signs Vital Signs: Vital Signs - 24 hr 03/31/21 16:50 03/31/21 18:00 03/31/21 19:33 Temperature 35.8 C L 36.5 C Pulse Rate 86 96 90 Respiratory Rate 20 20 Blood Pressure 150/68 H 150/67 H Pulse Oximetry 93 94 03/31/21 20:00 03/31/21 22:00 04/01/21 00:00 Temperature 36.6 C Pulse Rate 89 95 86 Respiratory Rate 19 Blood Pressure 143/68 H Pulse Oximetry 04/01/21 01:37 04/01/21 04:00 04/01/21 06:00 Temperature 36.6 C Pulse Rate 72 79 77 Respiratory Rate 20 Blood Pressure 127/50 L Pulse Oximetry 94 04/01/21 08:00 04/01/21 09:03 04/01/21 10:00 Temperature 36.2 C L Pulse Rate 77 86 76 Respiratory Rate 18 Blood Pressure 139/76 Pulse Oximetry 99 04/01/21 12:00 04/01/21 14:12 Temperature 36.2 C L Pulse Rate 79 Respiratory Rate 18 Blood Pressure 139/76 Pulse Oximetry 99 97 Intake/Output Intake/Output: Intake & Output 03/29/21 03/30/21 03/31/21 04/01/21 23:59 23:59 23:59 23:59 Intake Total 50 4910 2605 1815 Output Total 1080 5149 1400 Balance 93 -8844 -4116 415 Meds/Results Medications: Active Medications Generic Name Dose Route Start Last Admin Trade Name Freq PRN Reason Stop Dose Admin Acetaminophen 650 mg 03/30/21 01:57 03/31/21 03:17 Acetaminophen 325 Mg Tablet PO 650 mg Q6H PRN Administration Mild Pain (Score 1-4) OR FEVER Allopurinol 300 mg 03/30/21 08:00 04/01/21 09:02 Allopurinol 300 Mg Tablet PO 300 mg DAILY@0800 [facility] Administration Aspirin 81 mg 03/30/21 09:00 04/01/21 09:01 Aspirin 81 Mg Enteric Tablet PO 81 mg DAILY JERRY Administration Atorvastatin Calcium 40 mg 03/30/21 21:00 03/31/21 20:01 Atorvastatin 40 Mg Tablet PO 40 mg HS JERRY Administration Baclofen 5 mg 03/31/21 16:00 03/31/21 23:16 Baclofen 5 Mg Tablet PO 5 mg 0000,1600 [facility] Administration Bisacodyl 10 mg 03/30/21 01:57 Bisacodyl 10 Mg Suppository RECTAL DAILY PRN Constipation Carvedilol 6.25 mg 03/30/21 09:00 04/01/21 09:03 Carvedilol 6.25 Mg Tablet PO 6.25 mg DAILY JERRY Administration Dextrose 12.5 gm 03/29/21
[2021-04-01 17:39] LABS: Glucose Point of Care 149 mg/dl (65-105)
[2021-04-01] MEDS: BACLOFEN 5 MG TABLET PO ×2 (17:46→23:07)
[2021-04-01] MEDS: WARFARIN (*PBKC) 3 MG TABLET PO (17:46)
--- NOTE | 2021-04-01 18:38 | PC.NURSE ---
This patient, Bayron Ann, was transferred to [facility] on 04/01/21 at 1838. Personal belongings sent with patient. Report given to Esperanza SPRINGER. Appropriate documentation sent with patient.
--- NOTE | 2021-04-01 18:46 | PC.NURSE ---
Pt received from IMU room 232. Patient oriented to the room. 04/01/21 [id number]
[2021-04-01] MEDS: ATORVASTATIN 40 MG TABLET PO (19:49)
[2021-04-01] MEDS: GABAPENTIN 300 MG CAPSULE PO (19:50)
[2021-04-01] MEDS: MELATONIN 5 MG TABLET PO (19:50)
[2021-04-01] MEDS: SERTRALINE HCL 50 MG TABLET PO (19:51)
[2021-04-01] MEDS: TAMSULOSIN HCL 0.4 MG CAPSULE 0.8 MG PO (19:51)
[2021-04-01] MEDS: rOPINIRole HCL 1 MG TABLET PO (19:56)
[2021-04-01] MEDS: INSULIN GLARGINE (*BKC) 100 UNITS/ML 30 UNITS SUB-Q (19:59)
[2021-04-01 22:48] LABS: Glucose Point of Care 188 mg/dl (65-105)
[2021-04-01] MEDS: traMADol HCL (*CRX) 50 MG TABLET 100 MG PO (23:03)
[2021-04-02] MEDS: SODIUM BICARBONATE 8.4% 75 MEQ in SODIUM CHLORIDE 0.45% 1,000 ML 60 ML IV CONT ×2 (03:10→20:03)
[2021-04-02 05:27] LABS: Albumin Level 3.9 g/dL (3.5-5.1); Anion Gap 8 mmol/L (8-16); Blood Urea Nitrogen 26 mg/dL (9-20); Calcium 8.8 mg/dL (8.4-10.2); Carbon Dioxide 25 mmol/L (22-30); Chloride 108 mmol/L (98-107); Estimated CRCL calculation 71 ml/min; Estimated Glomerular Filt Rate 56; Glucose 137 mg/dL (75-110); Phosphorus 3.4 mg/dL (2.5-4.5); Potassium 4.1 mmol/L (3.4-5.0); Sodium 141 mmol/L (137-145)
[2021-04-02 05:41] LABS: INR 1.5; Prothrombin Time 18.6 Seconds (11.1-14.7)
[2021-04-02] MEDS: LEVOTHYROXINE SODIUM 25 MCG TABLET PO (05:57)
[2021-04-02] MEDS: LEVOTHYROXINE SODIUM 112 MCG TABLET PO (05:57)
[2021-04-02 06:00] VITALS: BP 152/74; PULSE 88; RESP 18; TEMP 36.2; O2SAT 96
[2021-04-02 08:03] LABS: Glucose Point of Care 118 mg/dl (65-105)
[2021-04-02] MEDS: ASPIRIN 81 MG ENTERIC TABLET PO (08:13)
[2021-04-02] MEDS: allopurinoL 300 MG TABLET PO (08:13)
[2021-04-02] MEDS: FINASTERIDE 5 MG TABLET PO (08:13)
[2021-04-02] MEDS: DOXYCYCLINE HYCLATE 100 MG TABLET PO ×2 (08:13→20:30)
[2021-04-02] MEDS: GABAPENTIN 300 MG CAPSULE 600 MG PO ×3 (08:14→16:27)
[2021-04-02] MEDS: PANTOPRAZOLE 40 MG TABLET PO (08:14)
[2021-04-02] MEDS: LORATADINE 10 MG TABLET PO (08:14)
[2021-04-02] MEDS: FLUTICASONE PROPIONATE 0.05% NA SPR 16 GM BTL (*BKC) 1 SPRAY NASAL (08:15)
[2021-04-02 08:16] VITALS: PULSE 96
[2021-04-02] MEDS: carvediloL 6.25 MG TABLET PO (08:16)
--- NOTE | 2021-04-02 08:26 | PM.IMPN ---
Progress Note: A&P Assessment and Plan (1) Acute hyperkalemia: Code(s): E87.5 - Hyperkalemia Status: Acute Assessment and Plan: Nephrology consult Hold lisinopril and Aldactone Status post calcium gluconate Albuterol inhaler IV insulin Kayexalate Improved low-potassium diet Nephrology recommendation appreciated Anticipate discharge in a.m. Follow-up serology results (2) CVA (cerebrovascular accident): Qualifiers: CVA mechanism: unspecified Qualified Code(s): I63.9 - Cerebral infarction, unspecified Code(s): I63.9 - Cerebral infarction, unspecified Status: Acute Assessment and Plan: OLD STROKE Patient have no right upper extremity weakness MRI shows acute follow [place] (3) Acute renal failure (ARF): Qualifiers: Acute renal failure type: unspecified Qualified Code(s): N17.9 - Acute kidney failure, unspecified Code(s): N17.9 - Acute kidney failure, unspecified Status: Acute Assessment and Plan: Renal ultrasound Younger catheter nephrology consult continue hydration (4) Gout: Code(s): M10.9 - Gout, unspecified Status: Acute Assessment and Plan: Continue allopurinol (5) Type 2 diabetes mellitus without complications: Code(s): E11.9 - Type 2 diabetes mellitus without complications Status: Acute Assessment and Plan: Lantus and lispro Accu-Chek hold metformin due to renal failure and as the patient was admitted to the hospital (6) Hyperlipidemia, unspecified: Code(s): E78.5 - Hyperlipidemia, unspecified Status: Acute Assessment and Plan: Continue statin Anticipate discharge once kidney function improve expected on 04/02/2021 Subjective Date/time seen: 04/01/21 08:26 Interval history: Patient seen and examined 60 years old male with past medical history of stroke 2019 on the left side presented from nursing facility with right upper extremity weakness at the ER CT scan was negative for acute stroke but patient was found to have acute renal failure and potassium of above 7 patient was admitted to the hospital for further evaluation and treatment Improved after DC Aldactone and lisinopril lying given Kayexalate nephrology recommendation appreciated Right arm weakness has significantly improved I think the left arm weakness most likely is related to hyperkalemia and acute renal failure and dehydration Patient denies fever headache chest pain shortness of breath I am seeing the patient for right upper extremity weakness Exam Narrative: Exam Narrative: Alert Chest no wheeze crackles Abdomen nontender nondistended CVS S1 + S2 Pre-existing left-sided weakness Right arm weakness significantly improved from yesterday Objective Data Vital Signs Vital Signs: Vital Signs - 24 hr 04/01/21 09:03 04/01/21 10:00 04/01/21 12:00 Temperature 97.2 F L Pulse Rate 86 76 79 Respiratory Rate 18 Blood Pressure 139/76 Pulse Oximetry 99 04/01/21 14:12 04/01/21 16:00 04/01/21 22:00 Temperature 98.5 F 97.0 F L Pulse Rate 78 84 Respiratory Rate 20 20 Blood Pressure 169/79 H 155/68 H Pulse Oximetry 97 93 92 04/02/21 06:00 04/02/21 08:16 Temperature 97.1 F L Pulse Rate 88 96 Respiratory Rate 18 Blood Pressure 152/74 H Pulse Oximetry 96 Intake/Output Intake/Output: Intake & Output 03/30/21 03/31/21 04/01/21 04/02/21 23:59 23:59 23:59 23:59 Intake Total 1530 2605 2655 1175 Output Total 6200 6075 6400 2500 [facility] -4670 -3470 -3745 -1325 Meds/Results Medications: Active Medications Generic Name Dose Route Start Last Admin Trade Name Freq PRN Reason Stop Dose Admin Acetaminophen 650 mg 03/30/21 01:57 03/31/21 03:17 Acetaminophen 325 Mg Tablet PO 650 mg Q6H PRN Administration Mild Pain (Score 1-4) OR FEVER Allopurinol 300 mg 03/30/21 08:00 04/02/21 08:13 Allopurinol 300 Mg Tablet PO 300 mg DAILY@0800 [facility] Administrat
--- NOTE | 2021-04-02 08:29 | PM.IMPN ---
Progress Note: A&P Assessment and Plan (1) Acute hyperkalemia: Code(s): E87.5 - Hyperkalemia Status: Acute Assessment and Plan: Nephrology consult Hold lisinopril and Aldactone Status post calcium gluconate Albuterol inhaler IV insulin Kayexalate Improved low-potassium diet Nephrology recommendation appreciated Anticipate discharge in a.m. Follow-up serology results (2) CVA (cerebrovascular accident): Qualifiers: CVA mechanism: unspecified Qualified Code(s): I63.9 - Cerebral infarction, unspecified Code(s): I63.9 - Cerebral infarction, unspecified Status: Acute Assessment and Plan: OLD STROKE Patient have no right upper extremity weakness MRI shows acute follow malacia (3) Acute renal failure (ARF): Qualifiers: Acute renal failure type: unspecified Qualified Code(s): N17.9 - Acute kidney failure, unspecified Code(s): N17.9 - Acute kidney failure, unspecified Status: Acute Assessment and Plan: Renal ultrasound Younger catheter nephrology consult continue hydration (4) Gout: Code(s): M10.9 - Gout, unspecified Status: Acute Assessment and Plan: Continue allopurinol (5) Type 2 diabetes mellitus without complications: Code(s): E11.9 - Type 2 diabetes mellitus without complications Status: Acute Assessment and Plan: Lantus and lispro Accu-Chek hold metformin due to renal failure and as the patient was admitted to the hospital (6) Hyperlipidemia, unspecified: Code(s): E78.5 - Hyperlipidemia, unspecified Status: Acute Assessment and Plan: Continue statin (7) Abdominal pain: Code(s): R10.9 - Unspecified abdominal pain Status: Acute Assessment and Plan: Abdominal pain constipation will get CT scan of the abdomen Anticipate discharge in a.m. Subjective Date/time seen: 04/02/21 08:29 Interval history: Patient seen and examined 60 years old male with past medical history of stroke 2019 on the left side presented from nursing facility with right upper extremity weakness at the ER CT scan was negative for acute stroke but patient was found to have acute renal failure and potassium of above 7 patient was admitted to the hospital for further evaluation and treatment Improved after DC Aldactone and lisinopril lying given Kayexalate nephrology recommendation appreciated Right arm weakness has significantly improved I think the left arm weakness most likely is related to hyperkalemia and acute renal failure and dehydration Patient complains of abdominal pain distension and constipation Patient denies fever headache chest pain shortness of breath I am seeing the patient for right upper extremity weakness Exam Narrative: Exam Narrative: Alert Chest no wheeze crackles Abdomen nontender nondistended CVS S1 + S2 Pre-existing left-sided weakness Right arm weakness significantly improved from yesterday Objective Data Vital Signs Vital Signs: Vital Signs - 24 hr 04/01/21 09:03 04/01/21 10:00 04/01/21 12:00 Temperature 97.2 F L Pulse Rate 86 76 79 Respiratory Rate 18 Blood Pressure 139/76 Pulse Oximetry 99 04/01/21 14:12 04/01/21 16:00 04/01/21 22:00 Temperature 98.5 F 97.0 F L Pulse Rate 78 84 Respiratory Rate 20 20 Blood Pressure 169/79 H 155/68 H Pulse Oximetry 97 93 92 04/02/21 06:00 04/02/21 08:16 Temperature 97.1 F L Pulse Rate 88 96 Respiratory Rate 18 Blood Pressure 152/74 H Pulse Oximetry 96 Intake/Output Intake/Output: Intake & Output 03/30/21 03/31/21 04/01/21 04/02/21 23:59 23:59 23:59 23:59 Intake Total 1530 2605 2655 1175 Output Total 6200 6052 6400 2500 [facility] -4670 -3470 -3745 -1325 Meds/Results Medications: Active Medications Generic Name Dose Route Start Last Admin Trade Name Freq PRN Reason Stop Dose Admin Acetaminophen 650 mg 03/30/21 01:57 03/31/21 03:17 Acetaminophen 325 Mg Ta
[2021-04-02 10:00] VITALS: BP 141/72; PULSE 80; RESP 16; TEMP 36.3; O2SAT 96
[2021-04-02 11:25] LABS: Glucose Point of Care 148 mg/dl (65-105)
[2021-04-02 15:01] VITALS: BP 141/69; PULSE 84; RESP 16; TEMP 36.5; O2SAT 96
[2021-04-02] MEDS: ACETAMINOPHEN 325 MG TABLET 650 MG PO (15:31)
[2021-04-02] MEDS: BACLOFEN 5 MG TABLET PO (16:27)
[2021-04-02 16:35] LABS: Glucose Point of Care 145 mg/dl (65-105)
[2021-04-02] MEDS: WARFARIN (*PBKC) 4 MG TABLET PO (18:32)
[2021-04-02] MEDS: INSULIN GLARGINE (*BKC) 100 UNITS/ML 30 UNITS SUB-Q (20:29)
[2021-04-02] MEDS: GABAPENTIN 300 MG CAPSULE PO (20:30)
[2021-04-02] MEDS: rOPINIRole HCL 1 MG TABLET PO (20:30)
[2021-04-02] MEDS: SERTRALINE HCL 50 MG TABLET PO (20:30)
[2021-04-02] MEDS: TAMSULOSIN HCL 0.4 MG CAPSULE 0.8 MG PO (20:30)
[2021-04-02] MEDS: ATORVASTATIN 40 MG TABLET PO (20:31)
[2021-04-02] MEDS: MELATONIN 5 MG TABLET PO (20:31)
[2021-04-02 21:24] LABS: Glucose Point of Care 160 mg/dl (65-105)
[2021-04-02 22:00] VITALS: BP 157/66; PULSE 82; RESP 20; TEMP 36.7; O2SAT 95
[2021-04-03] MEDS: BACLOFEN 5 MG TABLET PO (00:16)
[2021-04-03] MEDS: traMADol HCL (*CRX) 50 MG TABLET 100 MG PO (00:16)
[2021-04-03 05:14] LABS: Albumin Level 3.9 g/dL (3.5-5.1); Anion Gap 8 mmol/L (8-16); Blood Urea Nitrogen 22 mg/dL (9-20); Calcium 8.9 mg/dL (8.4-10.2); Carbon Dioxide 25 mmol/L (22-30); Chloride 109 mmol/L (98-107); Estimated CRCL calculation 83 ml/min; Estimated Glomerular Filt Rate > 60; Glucose 119 mg/dL (75-110); Phosphorus 3.5 mg/dL (2.5-4.5); Potassium 4.2 mmol/L (3.4-5.0); Sodium 142 mmol/L (137-145)
[2021-04-03 05:18] LABS: INR 1.2; Prothrombin Time 15.9 Seconds (11.1-14.7)
[2021-04-03] MEDS: LEVOTHYROXINE SODIUM 25 MCG TABLET PO (05:40)
[2021-04-03] MEDS: LEVOTHYROXINE SODIUM 112 MCG TABLET PO (05:40)
[2021-04-03 05:41] LABS: Kappa\\Lambda Light Chains 1.61 (0.26-1.65); Lambda Light Chain 35.8 mg/L (5.7-26.3)
[2021-04-03 06:00] VITALS: BP 146/75; PULSE 84; RESP 18; TEMP 36.3; O2SAT 99
[2021-04-03 07:50] LABS: Glucose Point of Care 114 mg/dl (65-105)
[2021-04-03] MEDS: FLUTICASONE PROPIONATE 0.05% NA SPR 16 GM BTL (*BKC) 1 SPRAY NASAL (08:15)
[2021-04-03] MEDS: DOXYCYCLINE HYCLATE 100 MG TABLET PO (08:15)
[2021-04-03] MEDS: FINASTERIDE 5 MG TABLET PO (08:15)
[2021-04-03 08:16] VITALS: PULSE 100
[2021-04-03] MEDS: ASPIRIN 81 MG ENTERIC TABLET PO (08:16)
[2021-04-03] MEDS: GABAPENTIN 300 MG CAPSULE 600 MG PO (08:16)
[2021-04-03] MEDS: PANTOPRAZOLE 40 MG TABLET PO (08:16)
[2021-04-03] MEDS: allopurinoL 300 MG TABLET PO (08:16)
[2021-04-03] MEDS: LORATADINE 10 MG TABLET PO (08:16)
[2021-04-03] MEDS: carvediloL 6.25 MG TABLET PO (08:16)
--- NOTE | 2021-04-03 08:47 | PM.DS ---
DS: Admitting Diagnosis Admitting Diagnosis Admitting Diagnosis: Upper extremity weakness generalized weakness acute renal failure hyperkalemia DS: Discharge Diagnosis Discharge Diagnosis (1) Acute hyperkalemia: Code(s): E87.5 - Hyperkalemia Status: Acute Assessment and Plan: Nephrology consult Hold lisinopril and Aldactone Status post calcium gluconate Albuterol inhaler IV insulin Kayexalate Improved low-potassium diet Nephrology recommendation appreciated Repeat CMP in 2 days Follow-up serology results (2) CVA (cerebrovascular accident): Qualifiers: CVA mechanism: unspecified Qualified Code(s): I63.9 - Cerebral infarction, unspecified Code(s): I63.9 - Cerebral infarction, unspecified Status: Acute Assessment and Plan: OLD STROKE Patient have no right upper extremity weakness MRI shows acute follow malacia I do not think patient has TIA or stroke I think most likely patient has weakness related to acute renal failure and dehydration and hyperkalemia continue aspirin statin and home medication (3) Acute renal failure (ARF): Qualifiers: Acute renal failure type: unspecified Qualified Code(s): N17.9 - Acute kidney failure, unspecified Code(s): N17.9 - Acute kidney failure, unspecified Status: Acute Assessment and Plan: Renal ultrasound DC Younger catheter nephrology consult continue hydration repeat CMP in 2 days (4) Gout: Code(s): M10.9 - Gout, unspecified Status: Acute Assessment and Plan: Continue allopurinol (5) Type 2 diabetes mellitus without complications: Code(s): E11.9 - Type 2 diabetes mellitus without complications Status: Acute Assessment and Plan: Lantus and lispro Accu-Chek resume home medication (6) Hyperlipidemia, unspecified: Code(s): E78.5 - Hyperlipidemia, unspecified Status: Acute Assessment and Plan: Continue statin (7) Abdominal pain: Code(s): R10.9 - Unspecified abdominal pain Status: Acute Assessment and Plan: Secondary to constipation follow-up with GI as outpatient patient will need age-appropriate cancer screening with colonoscopy if not done CT scan negative for acute finding DS: Summary Hospital Course Hospital Course: Patient was admitted to the hospital with weakness was found to have acute on top of chronic renal failure severe hyperkalemia lisinopril and Aldactone was DC patient was treated with IV fluid bicarb albuterol calcium gluconate IV insulin significantly improved renal failure liver resolved patient will be discharged on amlodipine DC lisinopril and Aldactone encourage oral hydration I do not think patient has a stroke or TIA Patient on oral anticoagulation Coumadin resume home does repeat INR in 2 days Repeat CBC and CMP in 2 days Time Spent with Patient Time attestation: Total time spent providing and/or coordinating discharge services: 35 minutes Exam Narrative: Exam Narrative: Alert Chest no wheeze crackles Abdomen nontender nondistended CVS S1 + S2 Pre-existing left-sided weakness Right arm weakness significantly improved from yesterday DS: Data Data Completed and Pending Labs on day of discharge: Labs from last 24 hours 04/03/21 04/03/21 04/03/21 07:40 04:35 04:35 WBC RBC Hgb Hct MCV MCH MCHC RDW Plt Count MPV Immature Gran % (Auto) Neut % (Auto) Lymph % (Auto) [place] % (Auto) Eos % (Auto) Baso % (Auto) Lymph # (Auto) [place] # (Auto) Eos # (Auto) Baso # (Auto) Abs Immat Gran (auto) Absolute Neuts (auto) Absolute Nucleated RBC Nucleated RBC % PT 15.9 H INR 1.2 Sodium 142 Potassium 4.2 Chloride 109 H Carbon Dioxide 25 Anion Gap 8 BUN 22 H Creatinine 1.10 Estim Creat Clear Calc 83 Estimated GFR > 60 Glucose 119 H POC Capillary Glucose 114 H Calcium 8.9 Phosph
[2021-04-03 09:06] LABS: Basophils Absolute Auto 0.1 K/mm3 (0.0-0.1); Basophils Percent Auto 0.7 % (0.2-1.2); Eosinophils Absolute Auto 0.4 K/mm3 (0-0.3); Eosinophils Percent Auto 4.8 % (0-4.4); Hematocrit 30.9 % (42.0-52.0); Hemoglobin 9.5 g/dL (14.0-18.0); Immature Granulocyte Absolute 0.06 K/mm3 (0.00-0.031); Immature Granulocyte Percent A 0.7 % (0-0.5); Lymphocytes Percent Auto 15.7 % (18.3-44.2); Mean Corpuscular HGB Conc 30.7 g/dl (32-36); Mean Corpuscular Hemoglobin 28.4 pg (26-34); Mean Corpuscular Volume 92.5 fl (80-100); Mean Platelet Volume 12.4 fl (7.4-10.4); Monocytes Absolute Auto 0.6 K/mm3 (0.1-0.6); Monocytes Percent Auto 7.2 % (2.6-8.5); Neutrophils Absolute Auto 6.3 K/mm3 (1.3-6.7); Neutrophils Percent Auto 70.9 % (45.5-73.1); Nucleated Red Blood Cells Perc 0.2 % (0.0-0.2); Platelet Count Result 178 k/mm3 (150-375); Red Blood Count 3.34 M/mm3 (4.6-6.20); Red Cell Distribution Width 16.9 % (11.5-14.5); White Blood Count 8.9 K/mm3 (4.5-10.0)
[2021-04-03 12:13] LABS: ANCA Screen Negative (Negative)
[2021-04-05 01:14] LABS: Albumin 3.8 g/dL (3.8-4.8); Alpha 1 Globulin 0.3 g/dL (0.2-0.3); Alpha 2 Globulin 0.6 g/dL (0.5-0.9); Beta 1 Globulin 0.5 g/dL (0.4-0.6); Gamma Globulin 1.2 g/dL (0.8-1.7); Protein, Total 6.8 g/dL (6.1-8.1)
[2021-04-06 16:23] LABS: Cryoglobulin, QL Negative (Negative)
[2021-04-06 22:00] LABS: Anti Glomerular Basement Memb <1.0 AI (<1.0)
== END 2021-04-03 11:09 | DRG 425 ==
LOC: ANHED 22:09 → ANHIMU 03-30 01:07 → ANH2MED 04-03 08:44 → ANHIMU 04-06 13:53
PROVIDERS: Internal Medicine Nephrology; Nurse Practitioner; Admitting Provider Internal Medicine; Emergency Provider Emergency Medicine; PCP Family Medicine; Visit Provider Internal Medicine
DX: E87.5 Hyperkalemia (principal); N17.9 Acute kidney failure, unspecified; R29.898 Other symptoms and signs involving the musculoskeletal system; M10.9 Gout, unspecified; E78.5 Hyperlipidemia, unspecified; E11.9 Type 2 diabetes mellitus without complications; K59.00 Constipation, unspecified; I25.10 Atherosclerotic heart disease of native coronary artery without angina pectoris; I10 Essential (primary) hypertension; I69.354 Hemiplegia and hemiparesis following cerebral infarction affecting left non-dominant side; Z79.01 Long term (current) use of anticoagulants; Z79.4 Long term (current) use of insulin; Z79.82 Long term (current) use of aspirin; Z79.899 Other long term (current) drug therapy; Z87.891 Personal history of nicotine dependence; Z95.1 Presence of aortocoronary bypass graft
CPT/HCPCS: 36415; 70450; 70544; 71045; 74176; 76775; 80048; 80053; 80069; 81001; 81050; 82436; 82570; 82595; 82948; 83520; 83883; 84132; 84155; 84156; 84165; 84166; 84300; 84484; 85025; 85610; 85730; 85999; 86021; 86038; 86160; 86225; 86334; 86335; 93005; 94640; 96374; 96375; 97110; 97116; 97161; 97166; 97530; 97535; 99285; A9270; J0610; J1815; J1940; J2060; J7120

== ENCOUNTER 2021-04-19 08:31 | Inpatient (IN) | payer OTHER, SELFPAY ==
[2021-04-19] VITALS (17 sets, daily range): BP systolic 123–188; BP diastolic 54–104; PULSE 66–112; RESP 17–34; TEMP 36.3–36.6; O2SAT 89–98; BMI 35.6
--- NOTE | ~2021-04-19 | XR_ITS ---
EXAMINATION: XR chest 1V portable INDICATION: Shortness of breath TECHNIQUE: Portable AP chest at 0519 hours COMPARISON: 04/19/2021 FINDINGS: Cardiomegaly is noted. A mild diffuse interstitial pattern persists without significant flo nge. There is no pleural effusion or pneumothorax. Median sternotomy wires and mediastinal surgical c lips are seen, likely from prior coronary artery bypass grafting. IMPRESSION: 1. Stable cardiomegaly with mild pulmonary edema. Reviewed, dictated and finalized at location A.
--- NOTE | ~2021-04-19 | XR_ITS ---
XR chest 1V portable 04/19/2021 09:10 Indication: Dyspnea. Procedure: AP portable chest Comparison: Comparison to multiple prior studies sequentially, with oldest reviewed study dated 03/2019. Findings: Status post median sternotomy for CABG. Cardiomegaly with interstitial edema. Small left pl eural effusion. No pneumothorax. No acute osseous abnormality. There are degenerative changes of the right shoulder. Impression: 1: Cardiomegaly with interstitial edema. Reviewed, dictated and finalized at location A. Impression: 1: Cardiomegaly with interstitial edema.
--- NOTE | 2021-04-19 08:39 | ECG_ITS ---
Measurements Intervals [place] Rate: 87 P: 53 CO: 153 QRS: -19 QRSD: 125 T: 106 QT: 394 QTc: 475 Interpretive Statements SINUS RHYTHM VENTRICULAR PREMATURE COMPLEX INTRAVENTRICULAR CONDUCTION DELAY POOR R WAVE PROGRESSION, CONSIDER ANERIOR INFARCT BORDERLINE ST-T WAVE ABNORMALITY- HIGH LATERAL LEADS ABNORMAL ECG Electronically Signed On 04-19-2021 10:13:35 CDT by Valentín James D.O.
--- NOTE | 2021-04-19 08:39 | ED.SOB ---
HPI - SOB/Dyspnea General Chief Complaint: Shortness of Breath/Dyspnea Stated Complaint: SOB Time Seen by Provider: 04/19/21 08:39 Source: patient and EMS Mode of arrival: EMS Limitations: clinical condition History of Present Illness HPI Narrative: Patient is a 60-year-old male with a history of CVA in 2019, anticoagulated on Coumadin, type 2 diabetes, chronic kidney disease, hypertension, who presents for evaluation of shortness of breath. Patient reportedly short of breath at facility this morning, oxygen saturation 88% on room air, was placed on 2 L via EMS and transported to this facility for evaluation. Pt without history of COPD or emphysema. He is a previous smoker with smoking cessation over 12 years ago. He does report shortness of breath and generalized fatigue. He denies fever, chills. He reports cough without hemoptysis. He denies history of confirmed Covid infection or Covid vaccination. States he does not believe in the vaccine. He reports mild swelling of the left lower leg, states that otherwise his paralysis is at baseline. No current chest pain. Denies fever. Denies calf pain. He has been compliant with his anticoagulation. Related Data Home Medications Medication Instructions Recorded Confirmed Lantus U-100 Insulin 30 unit SUBCUT HS 03/30/21 03/30/21 Santyl 1 applic TOPICAL DAILY 03/30/21 03/30/21 acetaminophen [Tylenol] 650 mg PO Q6H PRN 03/30/21 04/19/21 allopurinol 300 mg PO DAILY 03/30/21 04/19/21 aspirin 81 mg PO DAILY 03/30/21 04/19/21 atorvastatin 40 mg PO HS 03/30/21 04/19/21 baclofen 5 mg PO BIDPC PRN 03/30/21 04/19/21 biotin 5,000 mcg PO DAILY 03/30/21 04/19/21 bisacodyl 10 mg RECTAL DAILY PRN 03/30/21 04/19/21 carvedilol 6.25 mg PO DAILY 03/30/21 04/19/21 cetirizine 10 mg PO DAILY 03/30/21 04/19/21 diclofenac sodium 2 g TOPICAL QID PRN 03/30/21 03/30/21 docusate sodium 100 mg PO DAILY PRN 03/30/21 04/19/21 finasteride 5 mg PO DAILY 03/30/21 04/19/21 fluticasone propionate 1 spray INTRANASAL DAILY 03/30/21 03/30/21 gabapentin 300 mg PO HS 03/30/21 03/30/21 gabapentin 600 mg PO TID 03/30/21 03/30/21 insulin lispro 3 unit SUBCUT AC 03/30/21 03/30/21 levothyroxine 137 mcg PO QAM 03/30/21 03/30/21 metformin 1,000 mg PO BID 03/30/21 04/19/21 pantoprazole 40 mg PO DAILY 03/30/21 04/19/21 ropinirole 1 mg PO HS 03/30/21 04/19/21 sertraline 75 mg PO HS 03/30/21 04/19/21 tamsulosin 0.8 mg PO HS 03/30/21 04/19/21 tramadol 100 mg PO Q8H PRN 03/30/21 04/19/21 warfarin 3 mg PO QTUTH 03/30/21 04/19/21 warfarin 4 mg PO QMWFSU 03/30/21 04/19/21 diphenhydramine HCl [Benadryl] 1 applic TOPICAL PRN PRN 04/19/21 04/19/21 ondansetron 4 mg PO TID PRN 04/19/21 04/19/21 polyethylene glycol 3350 17 g PO DAILY 04/19/21 04/19/21 Allergies Allergy/AdvReac Type Severity Reaction Status Date / Time No Known Allergies Allergy Unknown Verified 04/19/21 08:49 Review of Systems Review of Systems: Narrative: CONSTITUTIONAL: Denies fever, chills, or sweats. EYES: Denies visual changes, redness, or discharge. ENT: Denies rhinorrhea, congestion, sore throat, or otalgia. CARDIOVASCULAR: Denies chest pain, palpitations, reports leg leg swelling. RESPIRATORY: Reports cough and dyspnea GASTROINTESTINAL: Denies abdominal pain, nausea, vomiting, or diarrhea. GENITOURINARY: Denies dysuria or hematuria. SKIN: Denies rash or itching. MUSCULOSKELETAL: Denies back pain, joint pain, or myalgia. NEUROLOGIC: Denies headache, numbness, or weakness. [facility] Past Medical History Medical History CHF (congestive heart failure) Family History Family History (Updated 04/19/21 @ 13:40 by Wan Olvera RN) Mother Patient's mother is Hypertension Father Patient's father is Malignant neoplasm of prostate Social History Social History Smoking packs per day: 1 Smoking cigarettes per day: 2
[2021-04-19 09:02] LABS: Alveolar/Arterial O2 Gradient 51.7 mmHg; Base Excess ABG -4.9 mEq/l (+/-2.0); Carboxyhemoglobin 1.1 % THb (0-2.0); Fractional Inspired Oxygen 21 %; HCO3 ABG 19.7 mEq/l (22.0-26.0); Methemoglobin ABG 0.3 %THb (0-1.5); Oxygen Content ABG 12.1 %vol (16.0-22.0); Oxygen Saturation ABG 89.1 % (95.0-100.0); Oxyhemoglobin 86.7 % THb (90.0-100.0); PCO2 ABG 34.6 mmHg (35.0-45.0); PO2 ABG 56.6 mmHg (80.0-100.0); Reduced Hemoglobin 11.9 %THb (0-5.0); Total Hemoglobin 9.9 g/dL (12.0-18.0); pH ABG 7.374 (7.350-7.450)
[2021-04-19 09:03] LABS: Device ROOM AIR; Modified Allen's Test Pass; Site Drawn RIGHT RADIAL
--- NOTE | 2021-04-19 09:03 | PC.NURSE ---
Assumed care of pt, pt is alert and upright on stretcher, VSS, discussed POC.
--- NOTE | 2021-04-19 09:06 | PC.NURSE ---
Pt placed on 2 L NC O2 due to O2 sat 89% on room air.
[2021-04-19 09:12] LABS: Basophils Absolute Auto 0.1 K/mm3 (0.0-0.1); Basophils Percent Auto 0.7 % (0.2-1.2); Eosinophils Absolute Auto 0.3 K/mm3 (0-0.3); Eosinophils Percent Auto 3.7 % (0-4.4); Hematocrit 27.9 % (42.0-52.0); Hemoglobin 8.1 g/dL (14.0-18.0); Immature Granulocyte Absolute 0.06 K/mm3 (0.00-0.031); Immature Granulocyte Percent A 0.7 % (0-0.5); Lymphocytes Absolute Auto 1.16 K/mm3 (0.9-3.2); Lymphocytes Percent Auto 14.4 % (18.3-44.2); Mean Platelet Volume 11.1 fl (7.4-10.4); Monocytes Absolute Auto 0.6 K/mm3 (0.1-0.6); Monocytes Percent Auto 7.7 % (2.6-8.5); Neutrophils Absolute Auto 5.8 K/mm3 (1.3-6.7); Neutrophils Percent Auto 72.8 % (45.5-73.1); Platelet Count Result 173 k/mm3 (150-375); Red Cell Distribution Width 17.1 % (11.5-14.5)
[2021-04-19] MEDS: SODIUM CHLORIDE 0.9% IV 500 ML 999 ML IV CONT (09:16)
[2021-04-19 09:22] LABS: Hypochromasia 1+ (NORMAL); Ovalocytes 1+ (NORMAL); Platelet Estimate Adequate (Adequate); Poikilocytosis 2+ (NORMAL)
[2021-04-19 09:23] LABS: Tear Drop Cells 1+ (NORMAL)
[2021-04-19 09:24] LABS: Alanine Aminotransferase 12 U/L (4-50); Albumin Level 3.2 g/dL (3.5-5.1); Alkaline Phosphatase 74 U/L (38-126); Anion Gap 8 mmol/L (8-16); Aspartate Amino Transferase 22 U/L (17-59); Bilirubin,Total 0.8 mg/dL (0.2-1.3); Blood Urea Nitrogen 33 mg/dL (9-20); Calcium 7.2 mg/dL (8.4-10.2); Carbon Dioxide 18 mmol/L (22-30); Chloride 115 mmol/L (98-107); Estimated CRCL calculation 99 ml/min; Estimated Glomerular Filt Rate > 60; Glucose 92 mg/dL (75-110); Potassium 4.3 mmol/L (3.4-5.0); Sodium 141 mmol/L (137-145)
[2021-04-19 09:25] LABS: Anion Gap 11 mmol/L (8-16); Blood Urea Nitrogen 34 mg/dL (9-20); Calcium 7.5 mg/dL (8.4-10.2); Carbon Dioxide 18 mmol/L (22-30); Chloride 113 mmol/L (98-107); Estimated CRCL calculation 99 ml/min; Estimated Glomerular Filt Rate > 60; Glucose 95 mg/dL (75-110); Lactic Acid Reflex 1.2 mmol/L (0.7-2.1); Potassium 4.4 mmol/L (3.4-5.0); Sodium 142 mmol/L (137-145)
[2021-04-19 09:33] LABS: Prothrombin Time 39.5 Seconds (11.1-14.7)
[2021-04-19 09:35] LABS: Partial Thromboplastin Time 57.7 SECONDS (22.3-36.8)
[2021-04-19 09:36] LABS: NT Pro B Type Natriuretic Pept 4550 pg/mL (5-100); Troponin I < 0.012 ng/mL (0.000-0.034)
[2021-04-19] MEDS: FUROSEMIDE INJ 40 MG/4 ML VIAL 20 MG IV PUSH (09:58)
[2021-04-19] MEDS: MAGNESIUM SULF 2 GM/WATER 50ML 2 GM/50 ML BAG IVPB (11:10)
[2021-04-19] MEDS: ALBUTEROL SULFATE NEB 2.5 MG/0.5 ML INH 10 MG INHALATION (11:24)
[2021-04-19] MEDS: IPRATROPIUM BR 0.02% INH SOLN 0.5 MG/2.5 ML VIAL 2 MG INHALATION (11:24)
--- NOTE | 2021-04-19 12:16 | ADMGEN ---
This patient, Bayron Ann, was admitted to IMU Room 210-01. Patient/family oriented to hospital policies and general routines including ID bracelet, bed and alarms, visiting hours, pain management, procedures, bathroom and other care routines, personal items, smoking policy, room service/diet, and visiting hours. Information on how to activate the Rapid Response Team has been discussed. Patient/Family are encouraged to report perceived risks to care and to ask questions if they do not understand what they are told or what they should do.
[2021-04-19] MEDS: IPRATROPIUM BR 0.02% INH SOLN 0.5 MG/2.5 ML VIAL INHALATION ×2 (14:39→21:15)
[2021-04-19] MEDS: ALBUTEROL SULFATE NEB 2.5 MG/0.5 ML INH 5 MG INHALATION ×2 (14:40→21:15)
[2021-04-19 16:34] LABS: Glucose Point of Care 176 mg/dl (65-105)
[2021-04-19 17:24] LABS: SARS-CoV-2 RNA PCR Negative
--- NOTE | 2021-04-19 18:00 | PM.IMHP ---
H&P: HPI History of Present Illness Date/Time: 04/19/21 18:00 Chief Complaint: Shortness of breath. Narrative: This is a 60-year-old male with coronary artery disease status post CABG, ischemic cardiomyopathy, mixed systolic and diastolic congestive heart failure with most recent measured EF of 31%, hypertension, insulin-dependent diabetes, and several other comorbidities who presented to the emergency department earlier today via EMS from [facility] for evaluation of shortness of breath. He was recently admitted to the hospital on 03/29/2021 with generalized weakness, found to have hyperkalemia and acute kidney injury. His furosemide was held and he was hydrated with normalization of his renal function. It is my understanding that his furosemide was held on discharge and ?I think it was started back a little too late on ?as he has had progressive shortness of breath and extremity swelling over the last week however much worse over the last 2 days. Last night he endorses orthopnea as well as quite a bit of wheezing and a dry cough. This morning he was hypoxic with an SpO2 of 88% on room air and thus he was brought in for evaluation. In the emergency department he was given a nebulizer and steroids as he was reportedly wheezing, possibly with some improvement. He is a former smoker, up to a pack of cigarettes a day and quit in 2008, and has never been diagnosed with COPD. Chest x-ray today showed interstitial edema and he is being admitted for diuresis. His troponin level was also elevated however he is not having any chest pain. He goes on to deny pleuritic pain, palpitations, cough, dysphagia and concerns for aspiration, nausea, vomiting, and sweats. Sometime this evening he was increasingly hypoxic and was started on a non-rebreather at 15 liters. I have since ordered a BiPAP and he is tolerating that well. Review of Systems Review of Systems: Narrative: Twelve systems were reviewed with pertinent positives and negatives as per HPI. He denies cold and flu symptoms. No known exposure to those positive for COVID-19. He denies fever and chills. No nausea, vomiting, or diarrhea. No history of venous thromboembolism. Except as documented, all other systems were reviewed and are negative. [facility] Past Medical History Medical History Benign prostatic hyperplasia Chronic anemia Combined systolic and diastolic congestive heart failure Coronary artery disease Status post three-vessel bypass and left ventricular aneurysm repair in February 2019 at [facility]. 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 Hyperlipidemia Hypertension Hypothyroidism Insulin dependent diabetes mellitus Ischemic cardiomyopathy Most recent calculated EF was 31%. Myocardial infarction (~01/2019) Late presentation [place] found to have severe three-vessel disease, transferred to [facility] for emergent bypass with perioperative ventricular fibrillation arrest. Surgical History Surgical History (Updated 04/19/21 @ 18:42 by Lilly Larios PA-C) History of coronary artery bypass graft (~02/2019) Three-vessel bypass and surgical repair of left ventricular aneurysm at [facility]. Family History Family History Mother Patient's mother is Hypertension Father Patient's father is Malignant neoplasm of prostate Social History Social History (Updated 04/20/21 @ 00:12 by Lilly Larios PA-C) Social History: Surrogate decision maker: Josie Ann, . Code status: Full code. Smoking packs per day: 1 Smoking cigarettes per day: 20.0 Smoking status: Former smoker Tobacco type: cigarettes Second hand tobacco smoke exposure: No Smoking end date:
[2021-04-19 19:18] LABS: Alveolar/Arterial O2 Gradient 492.2 mmHg; Base Excess ABG -7.7 mEq/l (+/-2.0); Carboxyhemoglobin 0.2 % THb (0-2.0); Fractional Inspired Oxygen 90 %; HCO3 ABG 18.2 mEq/l (22.0-26.0); Methemoglobin ABG 0.3 %THb (0-1.5); Oxygen Content ABG 14.3 %vol (16.0-22.0); Oxygen Saturation ABG 97.5 % (95.0-100.0); Oxyhemoglobin 96.4 % THb (90.0-100.0); PCO2 ABG 38.8 mmHg (35.0-45.0); PO2 ABG 109.7 mmHg (80.0-100.0); PO2 FiO2 Ratio Arterial Blood 1.22 %; Reduced Hemoglobin 3.1 %THb (0-5.0); Total Hemoglobin 10.4 g/dL (12.0-18.0)
[2021-04-19 19:21] LABS: Device NON-REBREATHER MASK; Modified Allen's Test Pass; Site Drawn RIGHT RADIAL
[2021-04-19 19:45] LABS: Hemoglobin A1C 7.7 % (<5.7)
[2021-04-19 19:53] LABS: Troponin I 0.103 ng/mL (0.000-0.034)
[2021-04-19 19:54] LABS: CRP 1.8 mg/dL (<1.0)
--- NOTE | 2021-04-19 20:09 | ECG_ITS ---
Measurements Intervals [place] Rate: 102 P: [place]: 0 QRS: -34 QRSD: 132 T: 95 QT: 379 QTc: 494 Interpretive Statements SINUS TACHYCARDIA LEFT AXIS DEVIATION INTRAVENTRICULAR CONDUCTION DELAY POOR R WAVE PROGRESSION, CONSIDER ANTERIOR INFARCT BORDERLINE ST-T WAVE ABNORMALITY- HIGH LATERAL LEADS ABNORMAL ECG Electronically Signed On 04-20-2021 7:52:18 CDT by Valentín James D.O.
[2021-04-19 20:36] LABS: Iron 31 ug/dL (49-181)
[2021-04-19 20:40] LABS: Lactic Acid Reflex 2.4 mmol/L (0.7-2.1)
[2021-04-19 20:43] LABS: Anion Gap 14 mmol/L (8-16); Blood Urea Nitrogen 40 mg/dL (9-20); Calcium 8.6 mg/dL (8.4-10.2); Carbon Dioxide 18 mmol/L (22-30); Chloride 107 mmol/L (98-107); Estimated CRCL calculation 77 ml/min; Estimated Glomerular Filt Rate 56; Glucose 204 mg/dL (75-110); Magnesium 2.1 mg/dL (1.6-2.3); Potassium 5.3 mmol/L (3.4-5.0); Sodium 139 mmol/L (137-145)
[2021-04-19 20:46] LABS: Folic Acid 16.7 ng/mL (2.76->20); Percent Iron Saturation 7 % (20-50)
[2021-04-19] MEDS: SERTRALINE HCL 25 MG TABLET 75 MG PO (20:53)
[2021-04-19] MEDS: FUROSEMIDE INJ 40 MG/4 ML VIAL IV PUSH (20:53)
[2021-04-19] MEDS: GABAPENTIN 300 MG CAPSULE PO (20:53)
[2021-04-19] MEDS: rOPINIRole HCL 1 MG TABLET PO (20:54)
[2021-04-19] MEDS: ATORVASTATIN 40 MG TABLET PO (20:54)
[2021-04-19] MEDS: TAMSULOSIN HCL 0.4 MG CAPSULE 0.8 MG PO (20:54)
[2021-04-19] MEDS: INSULIN GLARGINE (*BKC) 100 UNITS/ML 30 UNITS SUB-Q (20:55)
[2021-04-19 21:10] LABS: Thyroid Stimulating Hormone Reflex 0.417 uIU/mL (0.465-4.68)
[2021-04-19] MEDS: traMADol HCL (*CRX) 50 MG TABLET 100 MG PO (21:10)
[2021-04-19 21:14] LABS: Procalcitonin 0.1 ng/mL
[2021-04-19 22:08] LABS: Troponin I 0.176 ng/mL (0.000-0.034)
[2021-04-19 22:33] LABS: Total Triiodothyronine (T3) 0.81 NG/ML (0.97-1.69)
[2021-04-19 23:29] LABS: Reflex Lactic Acid Yes or No Add Lactic
[2021-04-20] VITALS (28 sets, daily range): BP systolic 124–166; BP diastolic 72–86; PULSE 80–100; RESP 16–32; TEMP 36.2–36.6; O2SAT 94–100
[2021-04-20 00:12] LABS: Lactic Acid 2.1 mmol/L (0.7-2.1)
[2021-04-20] MEDS: ACETAMINOPHEN 325 MG TABLET 650 MG PO (00:18)
[2021-04-20 00:59] LABS: Potassium 5.3 mmol/L (3.4-5.0)
[2021-04-20] MEDS: BACLOFEN 5 MG TABLET PO ×2 (01:12→21:27)
[2021-04-20] MEDS: IPRATROPIUM BR 0.02% INH SOLN 0.5 MG/2.5 ML VIAL INHALATION ×4 (02:43→22:06)
[2021-04-20] MEDS: ALBUTEROL SULFATE NEB 2.5 MG/0.5 ML INH 5 MG INHALATION ×4 (02:43→22:06)
[2021-04-20 05:07] LABS: Hematocrit 29.6 % (42.0-52.0); Mean Corpuscular HGB Conc 30.4 g/dl (32-36); Mean Corpuscular Hemoglobin 27.5 pg (26-34); Mean Corpuscular Volume 90.5 fl (80-100); Mean Platelet Volume 10.2 fl (7.4-10.4); Platelet Count Result 180 k/mm3 (150-375); Red Blood Count 3.27 M/mm3 (4.6-6.20); Red Cell Distribution Width 16.8 % (11.5-14.5); White Blood Count 14.4 K/mm3 (4.5-10.0)
[2021-04-20 05:19] LABS: INR 4.1; Prothrombin Time 39.8 Seconds (11.1-14.7)
[2021-04-20 05:37] LABS: Alanine Aminotransferase 16 U/L (4-50); Alkaline Phosphatase 87 U/L (38-126); Anion Gap 12 mmol/L (8-16); Aspartate Amino Transferase 30 U/L (17-59); Blood Urea Nitrogen 42 mg/dL (9-20); Calcium 8.4 mg/dL (8.4-10.2); Carbon Dioxide 20 mmol/L (22-30); Chloride 107 mmol/L (98-107); Estimated CRCL calculation 77 ml/min; Estimated Glomerular Filt Rate 56; Glucose 212 mg/dL (75-110); Potassium 4.9 mmol/L (3.4-5.0); Sodium 139 mmol/L (137-145)
[2021-04-20] MEDS: LEVOTHYROXINE SODIUM 25 MCG TABLET PO (05:38)
[2021-04-20] MEDS: LEVOTHYROXINE SODIUM 112 MCG TABLET PO (05:38)
[2021-04-20] MEDS: traMADol HCL (*CRX) 50 MG TABLET 100 MG PO ×2 (05:38→14:33)
[2021-04-20] MEDS: LORATADINE 10 MG TABLET PO (08:48)
[2021-04-20] MEDS: allopurinoL 300 MG TABLET PO (08:48)
[2021-04-20] MEDS: polyethylene glycoL 3350 17 GM POWD.PACK PO (08:48)
[2021-04-20] MEDS: GABAPENTIN 300 MG CAPSULE 600 MG PO ×3 (08:48→16:26)
[2021-04-20] MEDS: ASPIRIN 81 MG ENTERIC TABLET PO (08:48)
[2021-04-20] MEDS: FINASTERIDE 5 MG TABLET PO (08:48)
[2021-04-20] MEDS: carvediloL 6.25 MG TABLET PO (08:48)
[2021-04-20] MEDS: FUROSEMIDE INJ 40 MG/4 ML VIAL IV PUSH ×2 (08:48→16:26)
[2021-04-20] MEDS: PANTOPRAZOLE 40 MG TABLET PO (08:48)
[2021-04-20] MEDS: amLODIPine BESYLATE 2.5 MG TABLET PO (08:49)
[2021-04-20] MEDS: FLUTICASONE PROPIONATE 0.05% NA SPR 16 GM BTL (*BKC) 1 SPRAY NASAL (08:49)
[2021-04-20 09:07] LABS: Glucose Point of Care 225 mg/dl (65-105)
[2021-04-20] MEDS: INSULIN ASPART (*BKC) 100 UNITS/ML SUB-Q ×2 (09:22→12:29)
[2021-04-20 12:17] LABS: Glucose Point of Care 275 mg/dl (65-105)
--- NOTE | 2021-04-20 16:22 | PM.IMPN ---
Progress Note: A&P Assessment and Plan (1) Acute respiratory failure with hypoxia: Code(s): J96.01 - Acute respiratory failure with hypoxia Status: Acute Assessment and Plan: Was on BIpap now on oxygen long Discussion with his Pt is a Nh pt due to immobility and old stroke pt/ ot ordered (2) Acute exacerbation of congestive heart failure: Code(s): I50.9 - Heart failure, unspecified Status: Acute Assessment and Plan: IV LASIX continue to watch Bps (3) Chronic anemia: Code(s): D64.9 - Anemia, unspecified Status: Acute Assessment and Plan: Watch Hb (4) Hypertension: Code(s): I10 - Essential (primary) hypertension Status: Acute Assessment and Plan: Elevated due to stopping Bp medications continue lisinopril and restart lasix oral pripr to dc (5) Insulin dependent diabetes mellitus: Status: Acute Assessment and Plan: Continue to watch Accuchecks and SSi stop metformin causes him alot of gi upset (6) Current use of belt loop maker 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 Weight: 129.5 kilograms. BMI: 35.7. HEENT: Normocephalic, atraumatic. PERRL, EOMI. Sclerae anicteric. Oral mucosa not examined as he is on BiPAP. Neck: Supple. No significant jugular venous distension. Respiratory: Currently on BiPAP, tolerating it well. Able to speak freely through the mask. Crackles heard anteriorly, right greater than left. Faint, scattered wheezing. Cardiovascular: Regular rate and rhythm with S1-S2. Gastrointestinal: Abdomen is soft, nontender, and nondistended with positive bowel sounds. Skin: Warm and dry. Chronic skin changes on the lower legs. Scattered excoriations on the anterior shins bilaterally, left greater than right. Extremities: No cyanosis or clubbing. He has pitting edema of the lower extremities, left greater than right, and the left upper extremity. Hands and feet are warm and perfused. Negative [place] sign bilaterally. Neurological: Alert. Cranial nerves 2-12 are grossly intact. Residual left-sided weakness from previous stroke. Psychiatric: Pleasant and cooperative with normal mood and affect. Objective Data Vital Signs Vital Signs: Vital Signs - 24 hr 04/19/21 18:00 04/19/21 20:00 04/19/21 21:05 Temperature 36.6 C Pulse Rate 106 H 104 H 104 H Respiratory Rate 28 H 34 H Blood Pressure 123/54 L Pulse Oximetry 96 97 04/19/21 21:18 04/19/21 21:30 04/19/21 21:33 Temperature Pulse Rate 104 H 100 99 Respiratory Rate 28 H 21 H 26 H Blood Pressure Pulse Oximetry 97 04/19/21 22:00 04/20/21 00:00 04/20/21 02:00 Temperature 36.6 C Pulse Rate 99 96 94 Respiratory Rate 17 Blood Pressure 166/84 H Pulse Oximetry 96 04/20/21 02:43 04/20/21 02:58 04/20/21 02:59 Temperature Pulse Rate 94 92 94 Respiratory Rate 27 H 25 H 32 H Blood Pressure Pulse Oximetry 97 04/20/21 04:00 04/20/21 06:00 04/20/21 08:00 Temperature 36.4 C 36.6 C Pulse Rate 94 96 97 Respiratory Rate 17 26 H Blood Pressure 156/73 H 163/86 H Pulse Oximetry 100 100 04/20/21 08:35 04/20/21 08:48 04/20/21 09:02 Temperature Pulse Rate 95 Respiratory Rate Blood Pressure Pulse Oximetry 94 96 04/20/21 10:00 04/20/21 10:15 04/20/21 10:26 Temperature Pulse Rate 91 89 88 Respiratory Rate 18 20 Blood Pressure Pulse Oximetry 04/20/21 12:00 04/20/21 14:00 04/20/21 14:57 Temperature 36.3 C L Puls
[2021-04-20] MEDS: BENZONATATE 100 MG CAPSULE PO (16:25)
[2021-04-20 17:39] LABS: Glucose Point of Care 147 mg/dl (65-105)
[2021-04-20 19:33] LABS: IFOB Positive Control Positive; Immunochemical Fecal Occult Bl Negative (N)
[2021-04-20 21:19] LABS: Glucose Point of Care 246 mg/dl (65-105)
[2021-04-20] MEDS: rOPINIRole HCL 1 MG TABLET PO (21:25)
[2021-04-20] MEDS: TAMSULOSIN HCL 0.4 MG CAPSULE 0.8 MG PO (21:25)
[2021-04-20] MEDS: SERTRALINE HCL 25 MG TABLET 75 MG PO (21:26)
[2021-04-20] MEDS: GABAPENTIN 300 MG CAPSULE PO (21:27)
[2021-04-20] MEDS: ATORVASTATIN 40 MG TABLET PO (21:27)
[2021-04-20] MEDS: INSULIN GLARGINE (*BKC) 100 UNITS/ML 30 UNITS SUB-Q (21:59)
[2021-04-20] MEDS: MELATONIN 5 MG TABLET PO (21:59)
[2021-04-21] VITALS (28 sets, daily range): BP systolic 111–141; BP diastolic 66–80; PULSE 77–99; RESP 17–21; TEMP 35.6–37; O2SAT 93–100
[2021-04-21] MEDS: ALBUTEROL SULFATE NEB 2.5 MG/0.5 ML INH 5 MG INHALATION ×4 (02:42→20:17)
[2021-04-21] MEDS: IPRATROPIUM BR 0.02% INH SOLN 0.5 MG/2.5 ML VIAL INHALATION ×4 (02:42→20:17)
[2021-04-21 05:08] LABS: Hematocrit 26.8 % (42.0-52.0); Mean Corpuscular HGB Conc 29.9 g/dl (32-36); Mean Corpuscular Hemoglobin 27.1 pg (26-34); Mean Corpuscular Volume 90.8 fl (80-100); Mean Platelet Volume 11.8 fl (7.4-10.4); Platelet Count Result 167 k/mm3 (150-375); Red Blood Count 2.95 M/mm3 (4.6-6.20); Red Cell Distribution Width 16.9 % (11.5-14.5)
[2021-04-21 05:30] LABS: Anion Gap 8 mmol/L (8-16); Blood Urea Nitrogen 43 mg/dL (9-20); Calcium 8.2 mg/dL (8.4-10.2); Carbon Dioxide 25 mmol/L (22-30); Chloride 105 mmol/L (98-107); Estimated CRCL calculation 83 ml/min; Estimated Glomerular Filt Rate > 60; Glucose 170 mg/dL (75-110); Potassium 4.4 mmol/L (3.4-5.0); Sodium 138 mmol/L (137-145)
[2021-04-21] MEDS: traMADol HCL (*CRX) 50 MG TABLET 100 MG PO (05:42)
[2021-04-21] MEDS: LEVOTHYROXINE SODIUM 25 MCG TABLET PO (05:43)
[2021-04-21] MEDS: LEVOTHYROXINE SODIUM 112 MCG TABLET PO (05:43)
[2021-04-21 07:52] LABS: Glucose Point of Care 150 mg/dl (65-105)
[2021-04-21] MEDS: AZITHROMYCIN 250 MG TABLET 500 MG PO (08:54)
[2021-04-21] MEDS: ASPIRIN 81 MG ENTERIC TABLET PO (08:54)
[2021-04-21] MEDS: amLODIPine BESYLATE 2.5 MG TABLET PO (08:54)
[2021-04-21] MEDS: GABAPENTIN 300 MG CAPSULE 600 MG PO ×3 (08:55→17:42)
[2021-04-21] MEDS: lisinopriL 2.5 MG TABLET PO (08:55)
[2021-04-21] MEDS: carvediloL 6.25 MG TABLET PO (08:56)
[2021-04-21] MEDS: allopurinoL 300 MG TABLET PO (08:56)
[2021-04-21] MEDS: BENZONATATE 100 MG CAPSULE PO ×3 (08:56→17:42)
[2021-04-21] MEDS: FINASTERIDE 5 MG TABLET PO (08:57)
[2021-04-21] MEDS: LORATADINE 10 MG TABLET PO (08:57)
[2021-04-21] MEDS: FLUTICASONE PROPIONATE 0.05% NA SPR 16 GM BTL (*BKC) 1 SPRAY NASAL (08:57)
[2021-04-21] MEDS: FUROSEMIDE INJ 40 MG/4 ML VIAL IV PUSH ×2 (08:57→17:57)
[2021-04-21] MEDS: polyethylene glycoL 3350 17 GM POWD.PACK PO (08:58)
[2021-04-21] MEDS: PANTOPRAZOLE 40 MG TABLET PO (11:24)
[2021-04-21 11:36] LABS: Glucose Point of Care 216 mg/dl (65-105)
[2021-04-21] MEDS: INSULIN ASPART (*BKC) 100 UNITS/ML SUB-Q ×2 (12:06→17:51)
--- NOTE | 2021-04-21 14:25 | PM.IMPN ---
Progress Note: A&P Assessment and Plan (1) Acute respiratory failure with hypoxia: Code(s): J96.01 - Acute respiratory failure with hypoxia Status: Acute Assessment and Plan: Was on BIpap now on oxygen long Discussion with his Pt is a [place] pt due to immobility and old stroke pt/ ot ordered (2) Acute exacerbation of congestive heart failure: Code(s): I50.9 - Heart failure, unspecified Status: Acute Assessment and Plan: IV LASIX continue to watch Bps (3) Chronic anemia: Code(s): D64.9 - Anemia, unspecified Status: Acute Assessment and Plan: Watch Hb (4) Hypertension: Code(s): I10 - Essential (primary) hypertension Status: Acute Assessment and Plan: Elevated due to stopping Bp medications continue lisinopril and restart lasix oral pripr to dc (5) Insulin dependent diabetes mellitus: Status: Acute Assessment and Plan: Continue to watch Accuchecks and SSi stop metformin causes him alot of gi upset (6) Current use of detention anticoagulation: Code(s): Z79.01 - alf (current) use of anticoagulants Status: Acute Assessment and Plan: Continue was before Additional Plan INTERVAL HISTORY : The patient presents today with 2 days of worsening shortness of breath, found to be hypoxic and with evidence of CHF exacerbation. He was also swabbed for COVID in the emergency department which seems to be less likely. Pulmonary embolism is also unlikely as his INR is 4.0. I suppose he may have undiagnosed COPD but he could be wheezing due to CHF as well. At this time I will continue with the updrafts as they seemed to have helped though will not schedule any further steroids as he is not wheezing significantly at this time. Subjective Date/time seen: 04/21/21 14:25 Interval history: Pt being treated for COPD exacerbation high BPs and pulmonary congestion Review of Systems Review of Systems: All systems reviewed & are unremarkable except as noted in HPI and below Exam Narrative: Exam Narrative: General: Well-developed male sitting up in bed in no acute distress. Respiratory: On oxygen Chest shows decreased BS Cardiovascular: Regular rate and rhythm with S1-S2. Gastrointestinal: Abdomen is soft, nontender, and nondistended with positive bowel sounds. Skin: Warm and dry. Chronic skin changes on the lower legs. Scattered excoriations on the anterior shins bilaterally, left greater than right. Extremities: No cyanosis or clubbing. He has pitting edema of the lower extremities, left greater than right, and the left upper extremity. Hands and feet are warm and perfused. Negative [place] sign bilaterally. Neurological: Alert. Cranial nerves 2-12 are grossly intact. Residual left-sided weakness from previous stroke. Psychiatric: Pleasant and cooperative with normal mood and affect. Objective Data Vital Signs Vital Signs: Vital Signs - 24 hr 04/20/21 14:57 04/20/21 15:05 04/20/21 16:00 Temperature 36.2 C L Pulse Rate 88 89 90 Respiratory Rate 18 18 22 H Blood Pressure 138/79 Pulse Oximetry 94 04/20/21 16:30 04/20/21 18:00 04/20/21 19:49 Temperature 36.2 C L Pulse Rate 80 92 Respiratory Rate 20 Blood Pressure 124/73 Pulse Oximetry 94 96 04/20/21 20:00 04/20/21 22:00 04/20/21 22:07 Temperature Pulse Rate 91 92 92 Respiratory Rate 18 Blood Pressure Pulse Oximetry 97 04/20/21 22:10 04/20/21 22:20 04/20/21 23:23 Temperature 36.5 C Pulse Rate 92 94 91 Respiratory Rate 20 18 16 Blood Pressure 132/80 Pulse Oximetry 95 94 04/21/21 00:00 04/21/21 02:00 04/21/21 02:42 Temperature Pulse Rate 85 82 89 Respiratory Rate 18 Blood Pressure Pulse Oximetry 97 04/21/21 02:48 04/21/21 04:00 04/21/21 06:00 Temperature 37.0 C Pulse Rate 88 87 90 Respiratory Rate 17 17 Blood Pressure 141/80 H Pulse Oximetry 95 04/21/21 07:43
[2021-04-21 16:43] LABS: Glucose Point of Care 212 mg/dl (65-105)
[2021-04-21] MEDS: GABAPENTIN 300 MG CAPSULE PO (20:31)
[2021-04-21] MEDS: TAMSULOSIN HCL 0.4 MG CAPSULE 0.8 MG PO (20:31)
[2021-04-21] MEDS: MELATONIN 5 MG TABLET PO (20:31)
[2021-04-21] MEDS: ATORVASTATIN 40 MG TABLET PO (20:31)
[2021-04-21] MEDS: SERTRALINE HCL 25 MG TABLET 75 MG PO (20:31)
[2021-04-21] MEDS: rOPINIRole HCL 1 MG TABLET PO (20:31)
[2021-04-21] MEDS: INSULIN GLARGINE (*BKC) 100 UNITS/ML 30 UNITS SUB-Q (20:32)
[2021-04-21 20:39] LABS: Glucose Point of Care 204 mg/dl (65-105)
[2021-04-21] MEDS: BACLOFEN 5 MG TABLET PO (21:15)
[2021-04-22] VITALS (23 sets, daily range): BP systolic 132–146; BP diastolic 71–90; PULSE 80–102; RESP 16–20; TEMP 36–36.6; O2SAT 91–95
[2021-04-22] MEDS: ALBUTEROL SULFATE NEB 2.5 MG/0.5 ML INH 5 MG INHALATION ×4 (01:50→22:09)
[2021-04-22] MEDS: IPRATROPIUM BR 0.02% INH SOLN 0.5 MG/2.5 ML VIAL INHALATION ×4 (01:50→22:09)
[2021-04-22] MEDS: LEVOTHYROXINE SODIUM 25 MCG TABLET PO (05:08)
[2021-04-22] MEDS: LEVOTHYROXINE SODIUM 112 MCG TABLET PO (05:08)
[2021-04-22 05:27] LABS: Hematocrit 24.6 % (42.0-52.0); Hemoglobin 7.5 g/dL (14.0-18.0); Mean Corpuscular HGB Conc 30.5 g/dl (32-36); Mean Corpuscular Volume 88.5 fl (80-100); Mean Platelet Volume 11.6 fl (7.4-10.4); Platelet Count Result 135 k/mm3 (150-375); Red Blood Count 2.78 M/mm3 (4.6-6.20); Red Cell Distribution Width 16.6 % (11.5-14.5); White Blood Count 10.1 K/mm3 (4.5-10.0)
[2021-04-22 05:31] LABS: Anion Gap 8 mmol/L (8-16); Blood Urea Nitrogen 48 mg/dL (9-20); Calcium 8.1 mg/dL (8.4-10.2); Carbon Dioxide 25 mmol/L (22-30); Chloride 105 mmol/L (98-107); Estimated CRCL calculation 77 ml/min; Estimated Glomerular Filt Rate 56; Glucose 160 mg/dL (75-110); Potassium 4.3 mmol/L (3.4-5.0); Sodium 138 mmol/L (137-145)
[2021-04-22 08:19] LABS: Glucose Point of Care 156 mg/dl (65-105)
[2021-04-22] MEDS: GABAPENTIN 300 MG CAPSULE 600 MG PO ×3 (09:52→16:55)
[2021-04-22] MEDS: FINASTERIDE 5 MG TABLET PO (09:53)
[2021-04-22] MEDS: AZITHROMYCIN 250 MG TABLET 500 MG PO (09:53)
[2021-04-22] MEDS: PANTOPRAZOLE 40 MG TABLET PO (09:53)
[2021-04-22] MEDS: FUROSEMIDE INJ 40 MG/4 ML VIAL IV PUSH ×2 (09:53→16:55)
[2021-04-22] MEDS: allopurinoL 300 MG TABLET PO (09:53)
[2021-04-22] MEDS: ASPIRIN 81 MG ENTERIC TABLET PO (09:53)
[2021-04-22] MEDS: lisinopriL 2.5 MG TABLET PO (09:53)
[2021-04-22] MEDS: FLUTICASONE PROPIONATE 0.05% NA SPR 16 GM BTL (*BKC) 1 SPRAY NASAL (09:54)
[2021-04-22] MEDS: polyethylene glycoL 3350 17 GM POWD.PACK PO (09:54)
[2021-04-22] MEDS: BENZONATATE 100 MG CAPSULE PO ×3 (09:54→16:55)
[2021-04-22] MEDS: carvediloL 6.25 MG TABLET PO (09:54)
[2021-04-22] MEDS: amLODIPine BESYLATE 2.5 MG TABLET PO (09:54)
[2021-04-22] MEDS: LORATADINE 10 MG TABLET PO (09:55)
[2021-04-22 11:50] LABS: Glucose Point of Care 217 mg/dl (65-105)
[2021-04-22] MEDS: INSULIN ASPART (*BKC) 100 UNITS/ML SUB-Q (13:47)
[2021-04-22 18:00] LABS: Glucose Point of Care 200 mg/dl (65-105)
--- NOTE | 2021-04-22 18:32 | PM.IMPN ---
Progress Note: A&P Assessment and Plan (1) Acute respiratory failure with hypoxia: Code(s): J96.01 - Acute respiratory failure with hypoxia Status: Resolved Assessment and Plan: Pt is off oxygen Pt is a [facility] pt due to immobility and old stroke PT/OT ordered iv rocephin and iv zithromax and breathing treatments (2) Acute exacerbation of congestive heart failure: Code(s): I50.9 - Heart failure, unspecified Status: Acute Assessment and Plan: iv lasix (3) Chronic anemia: Code(s): D64.9 - Anemia, unspecified Status: Acute Assessment and Plan: Watch Hb 7.8 (4) Hypertension: Code(s): I10 - Essential (primary) hypertension Status: Acute Assessment and Plan: Elevated due to stopping Bp medications continue lisinopril and restart lasix, bp is stable (5) Insulin dependent diabetes mellitus: Status: Acute Assessment and Plan: Continue to watch Accuchecks and SSi stop metformin causes him alot of gi upset (6) Current use of nursing home anticoagulation: Code(s): 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 Respiratory: Chest decreased BS Cardiovascular: Regular rate and rhythm with S1-S2. Gastrointestinal: Abdomen is soft, nontender, and nondistended with positive bowel sounds. Skin: Warm and dry. Chronic skin changes on the lower legs. Scattered excoriations on the anterior shins bilaterally, left greater than right. Extremities: No cyanosis or clubbing. . Neurological: Alert. Cranial nerves 2-12 are grossly intact. Residual left-sided weakness from previous stroke. Psychiatric: Pleasant and cooperative with normal mood and affect. Objective Data Vital Signs Vital Signs: Vital Signs - 24 hr 04/21/21 19:33 04/21/21 20:00 04/21/21 20:19 Temperature 36.3 C L Pulse Rate 79 79 77 Respiratory Rate 20 18 Blood Pressure 122/70 Pulse Oximetry 98 99 04/21/21 20:20 04/21/21 20:29 04/21/21 21:11 Temperature Pulse Rate 79 Respiratory Rate 18 Blood Pressure Pulse Oximetry 100 98 04/21/21 22:00 04/21/21 23:26 04/22/21 00:00 Temperature 36.5 C Pulse Rate 79 81 80 Respiratory Rate 18 Blood Pressure 125/69 Pulse Oximetry 97 95 04/22/21 01:50 04/22/21 02:00 04/22/21 03:40 Temperature 36.0 C L Pulse Rate 82 82 85 Respiratory Rate 18 18 16 Blood Pressure 132/74 Pulse Oximetry 95 04/22/21 04:00 04/22/21 06:00 04/22/21 07:53 Temperature Pulse Rate 85 84 88 Respiratory Rate 18 Blood Pressure Pulse Oximetry 94 92 04/22/21 08:00 04/22/21 08:03 04/22/21 09:54 Temperature 36.3 C L Pulse Rate 86 87 102 H Respiratory Rate 16 20 Blood Pressure 140/90 Pulse Oximetry 95 04/22/21 10:00 04/22/21 12:00 04/22/21 14:00 Temperature 36.4 C L Pulse Rate 96 90 88 Respiratory Rate 18 Blood Pressure 146/71 H Pulse Oximetry 93 04/22/21 14:03 04/22/21 16:00 04/22/21 17:48 Temperature 36.3 C L Pulse Rate 87 86 93 Respiratory Rate 20 18 Blood Pressure 146/74 H Pulse Oximetry 93 Intake/Output Intake/Output: Intake & Output 04/19/21 04/20/21 04/21/21 04/22/21 23:59 23:59 23:59 23:59 Intake Total 1460 1990 1600 3500 Output Total 950 2650 3850 4674 Balance 510 -660 -2250 -1125 Meds/Results Medications: Active Medications Generic Name Dose Route Start Last Admin Trade Name Freq PRN Reason Stop Dose Admin Acetaminophen 650 mg 04/19/21 18:59 Acetaminophen 325 M
[2021-04-22] MEDS: traMADol HCL (*CRX) 50 MG TABLET 100 MG PO (19:44)
[2021-04-22 20:53] LABS: Glucose Point of Care 284 mg/dl (65-105)
[2021-04-22] MEDS: SERTRALINE HCL 25 MG TABLET 75 MG PO (21:28)
[2021-04-22] MEDS: GABAPENTIN 300 MG CAPSULE PO (21:28)
[2021-04-22] MEDS: ATORVASTATIN 40 MG TABLET PO (21:28)
[2021-04-22] MEDS: TAMSULOSIN HCL 0.4 MG CAPSULE 0.8 MG PO (21:28)
[2021-04-22] MEDS: rOPINIRole HCL 1 MG TABLET PO (21:28)
[2021-04-22] MEDS: MELATONIN 5 MG TABLET PO (21:33)
[2021-04-22] MEDS: INSULIN GLARGINE (*BKC) 100 UNITS/ML 30 UNITS SUB-Q (21:33)
[2021-04-22] MEDS: BACLOFEN 5 MG TABLET PO (21:42)
[2021-04-23] VITALS (21 sets, daily range): BP systolic 118–150; BP diastolic 64–82; PULSE 86–98; RESP 16–18; TEMP 36.2–37.2; O2SAT 91–98
[2021-04-23] MEDS: ALBUTEROL SULFATE NEB 2.5 MG/0.5 ML INH 5 MG INHALATION ×4 (01:42→20:46)
[2021-04-23] MEDS: IPRATROPIUM BR 0.02% INH SOLN 0.5 MG/2.5 ML VIAL INHALATION ×4 (01:42→20:47)
[2021-04-23] MEDS: traMADol HCL (*CRX) 50 MG TABLET 100 MG PO ×2 (03:52→15:29)
[2021-04-23 04:57] LABS: Hematocrit 25.9 % (42.0-52.0); Hemoglobin 7.8 g/dL (14.0-18.0); Mean Corpuscular HGB Conc 30.1 g/dl (32-36); Mean Corpuscular Hemoglobin 26.7 pg (26-34); Mean Corpuscular Volume 88.7 fl (80-100); Mean Platelet Volume 11.3 fl (7.4-10.4); Platelet Count Result 143 k/mm3 (150-375); Red Blood Count 2.92 M/mm3 (4.6-6.20); Red Cell Distribution Width 16.8 % (11.5-14.5); White Blood Count 9.5 K/mm3 (4.5-10.0)
[2021-04-23 05:09] LABS: Anion Gap 7 mmol/L (8-16); Blood Urea Nitrogen 40 mg/dL (9-20); Calcium 8.2 mg/dL (8.4-10.2); Carbon Dioxide 27 mmol/L (22-30); Chloride 104 mmol/L (98-107); Estimated CRCL calculation 91 ml/min; Estimated Glomerular Filt Rate > 60; Glucose 155 mg/dL (75-110); Potassium 4.1 mmol/L (3.4-5.0); Sodium 138 mmol/L (137-145)
[2021-04-23] MEDS: LEVOTHYROXINE SODIUM 25 MCG TABLET PO (06:18)
[2021-04-23] MEDS: ACETAMINOPHEN 325 MG TABLET 650 MG PO ×2 (06:19→21:23)
[2021-04-23] MEDS: LEVOTHYROXINE SODIUM 112 MCG TABLET PO (06:19)
[2021-04-23 07:40] LABS: Glucose Point of Care 144 mg/dl (65-105)
[2021-04-23] MEDS: PANTOPRAZOLE 40 MG TABLET PO (09:07)
[2021-04-23] MEDS: lisinopriL 2.5 MG TABLET PO (09:07)
[2021-04-23] MEDS: FUROSEMIDE INJ 40 MG/4 ML VIAL IV PUSH ×2 (09:07→17:09)
[2021-04-23] MEDS: allopurinoL 300 MG TABLET PO (09:07)
[2021-04-23] MEDS: FINASTERIDE 5 MG TABLET PO (09:07)
[2021-04-23] MEDS: GABAPENTIN 300 MG CAPSULE 600 MG PO ×3 (09:07→17:09)
[2021-04-23] MEDS: carvediloL 6.25 MG TABLET PO (09:07)
[2021-04-23] MEDS: BENZONATATE 100 MG CAPSULE PO ×3 (09:07→17:09)
[2021-04-23] MEDS: AZITHROMYCIN 250 MG TABLET 500 MG PO (09:07)
[2021-04-23] MEDS: ASPIRIN 81 MG ENTERIC TABLET PO (09:07)
[2021-04-23] MEDS: amLODIPine BESYLATE 2.5 MG TABLET PO (09:07)
[2021-04-23] MEDS: LORATADINE 10 MG TABLET PO (09:07)
[2021-04-23] MEDS: polyethylene glycoL 3350 17 GM POWD.PACK PO (09:08)
[2021-04-23] MEDS: FLUTICASONE PROPIONATE 0.05% NA SPR 16 GM BTL (*BKC) 1 SPRAY NASAL (09:08)
[2021-04-23 12:01] LABS: Glucose Point of Care 222 mg/dl (65-105)
[2021-04-23] MEDS: INSULIN ASPART (*BKC) 100 UNITS/ML SUB-Q (12:04)
[2021-04-23] MEDS: BACLOFEN 5 MG TABLET PO (15:29)
[2021-04-23 15:53] LABS: Glucose Point of Care 151 mg/dl (65-105)
[2021-04-23 20:49] LABS: Glucose Point of Care 181 mg/dl (65-105)
[2021-04-23] MEDS: GABAPENTIN 300 MG CAPSULE PO (21:16)
[2021-04-23] MEDS: ATORVASTATIN 40 MG TABLET PO (21:16)
[2021-04-23] MEDS: rOPINIRole HCL 1 MG TABLET PO (21:17)
[2021-04-23] MEDS: SERTRALINE HCL 25 MG TABLET 75 MG PO (21:19)
[2021-04-23] MEDS: TAMSULOSIN HCL 0.4 MG CAPSULE 0.8 MG PO (21:20)
[2021-04-23] MEDS: INSULIN GLARGINE (*BKC) 100 UNITS/ML 30 UNITS SUB-Q (21:20)
[2021-04-23] MEDS: MELATONIN 5 MG TABLET PO (21:23)
[2021-04-24] VITALS (7 sets, daily range): BP systolic 118–140; BP diastolic 71–74; PULSE 83–94; RESP 16–20; TEMP 36.3–36.6; O2SAT 93–95
[2021-04-24] MEDS: ALBUTEROL SULFATE NEB 2.5 MG/0.5 ML INH 5 MG INHALATION ×3 (02:42→13:51)
[2021-04-24] MEDS: IPRATROPIUM BR 0.02% INH SOLN 0.5 MG/2.5 ML VIAL INHALATION ×3 (02:42→13:51)
[2021-04-24 05:27] LABS: Hematocrit 26.6 % (42.0-52.0); Hemoglobin 7.9 g/dL (14.0-18.0); Mean Corpuscular HGB Conc 29.7 g/dl (32-36); Mean Corpuscular Hemoglobin 26.8 pg (26-34); Mean Corpuscular Volume 90.2 fl (80-100); Mean Platelet Volume 11.4 fl (7.4-10.4); Platelet Count Result 162 k/mm3 (150-375); Red Blood Count 2.95 M/mm3 (4.6-6.20); Red Cell Distribution Width 16.5 % (11.5-14.5); White Blood Count 8.6 K/mm3 (4.5-10.0)
[2021-04-24 05:47] LABS: Anion Gap 5 mmol/L (8-16); Blood Urea Nitrogen 38 mg/dL (9-20); Calcium 8.4 mg/dL (8.4-10.2); Carbon Dioxide 30 mmol/L (22-30); Chloride 105 mmol/L (98-107); Estimated CRCL calculation 78 ml/min; Estimated Glomerular Filt Rate 56; Glucose 138 mg/dL (75-110); Sodium 140 mmol/L (137-145)
[2021-04-24] MEDS: LEVOTHYROXINE SODIUM 112 MCG TABLET PO (05:53)
[2021-04-24] MEDS: LEVOTHYROXINE SODIUM 25 MCG TABLET PO (05:53)
[2021-04-24 08:26] LABS: Glucose Point of Care 140 mg/dl (65-105)
[2021-04-24] MEDS: amLODIPine BESYLATE 2.5 MG TABLET PO (08:52)
[2021-04-24] MEDS: carvediloL 6.25 MG TABLET PO (08:52)
[2021-04-24] MEDS: FINASTERIDE 5 MG TABLET PO (08:52)
[2021-04-24] MEDS: allopurinoL 300 MG TABLET PO (08:52)
[2021-04-24] MEDS: ASPIRIN 81 MG ENTERIC TABLET PO (08:52)
[2021-04-24] MEDS: AZITHROMYCIN 250 MG TABLET 500 MG PO (08:52)
[2021-04-24] MEDS: LORATADINE 10 MG TABLET PO (08:52)
[2021-04-24] MEDS: BENZONATATE 100 MG CAPSULE PO (08:52)
[2021-04-24] MEDS: lisinopriL 2.5 MG TABLET PO (08:52)
[2021-04-24] MEDS: GABAPENTIN 300 MG CAPSULE 600 MG PO ×3 (08:53→16:25)
[2021-04-24] MEDS: polyethylene glycoL 3350 17 GM POWD.PACK PO (08:54)
[2021-04-24] MEDS: PANTOPRAZOLE 40 MG TABLET PO (08:54)
[2021-04-24] MEDS: FLUTICASONE PROPIONATE 0.05% NA SPR 16 GM BTL (*BKC) 1 SPRAY NASAL (08:54)
[2021-04-24] MEDS: FUROSEMIDE INJ 40 MG/4 ML VIAL IV PUSH (08:54)
[2021-04-24] MEDS: INSULIN ASPART (*BKC) 100 UNITS/ML SUB-Q (12:11)
[2021-04-24 12:20] LABS: Glucose Point of Care 206 mg/dl (65-105)
--- NOTE | 2021-04-24 14:49 | PM.DS ---
DS: Admitting Diagnosis Admitting Diagnosis Admitting Diagnosis: Shortness of breath DS: Discharge Diagnosis Discharge Diagnosis (1) Acute respiratory failure with hypoxia: Code(s): J96.01 - Acute respiratory failure with hypoxia Status: Resolved Assessment and Plan: Pt is off oxygen now Pt from [place],due to immobility and old stroke Pt was on iv rocephin and iv zithromax and breathing treatments transition to [facility]. 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 Respiratory: Chest clear good air entry Cardiovascular: Regular rate and rhythm with S1-S2. Gastrointestinal: Abdomen is soft, nontender, and nondistended with positive bowel sounds. Skin: Warm and dry. Chronic skin changes on the lower legs. Scattered excoriations on the anterior shins bilaterally, left greater than right. Extremities: No cyanosis or clubbing. . Neurological: Alert. Cranial nerves 2-12 are grossly intact. Residual left-sided weakness from previous stroke. Psychiatric: Pleasant and cooperative with normal mood and affect. DS: Data Data Completed and Pending Labs on day of discharge: Labs from last 24 hours 04/24/21 04/24/21 04/24/21 12:06 08:15 04:37 WBC RBC Hgb Hct MCV MCH MCHC RDW Plt Count MPV Sodium 140 Potassium 4.0 Chloride 105 Carbon Dioxide 30 Anion Gap 5 L BUN 38 H Creatinine 1.30 Estim Creat Clear Calc 78 Estimated GFR 56 L Glucose 138 H POC Capillary Glucose 206 H 140 H Calcium 8.4 04/24/21 04/23/21 04/23/21 04:37 20:44 15:41 WBC 8.6 RBC 2.95 L Hgb 7.9 L Hct 26.6 L MCV 90.2 MCH 26.8 MCHC 29.7 L RDW 16.5 H Plt Count 162 MPV 11.4 H Sodium Potassium Chloride Carbon Dioxide Anion Gap BUN Creatinine Estim Creat Clear Calc Estimated GFR Glucose POC Capillary Glucose 181 H 151 H Calcium Preliminary micro results at discharge 04/19/21 09:31 Blood Culture - Preliminary Blood 04/19/21 09:31 Blood Culture - Preliminary Blood Discharge Plan Discharge Attending physician on discharge: Lilliana Bain Discharging Clinician: Lilliana Bain Anticipated Discharge Date/Time: 04/24/21 14:45 Patient Disposition: SNF Activity: as tolerated Diet: heart healthy Patient Instructions: Warfarin (By mouth), Heart Failure (DC) Stand Alone Forms: General Discharge Information Follow-up/Referrals: Ike Rodríguez MD [Primary Care Provider] - Discharge Medications: New azithromycin [Zithromax] 250 mg Tablet 500 mg PO DAILY Qty: 5 RF: 0 baclofen 10 mg Tablet 5 mg PO Q12H PRN (Reason:
[2021-04-24 15:29] LABS: INR 1.3; Prothrombin Time 17.2 Seconds (11.1-14.7)
[2021-04-24] MEDS: WARFARIN (*PBKC) 4 MG TABLET PO (16:25)
== END 2021-04-24 17:03 | DRG 133 ==
LOC: ANHED 09:21 → ANHIMU 11:25
PROVIDERS: Physician Assistant; Admitting Provider Internal Medicine; Emergency Provider Emergency Medicine; PCP Family Medicine; Visit Provider Family Medicine
DX: J96.01 Acute respiratory failure with hypoxia (principal); D64.9 Anemia, unspecified; Z20.822 Contact with and (suspected) exposure to COVID-19; E11.9 Type 2 diabetes mellitus without complications; I11.0 Hypertensive heart disease with heart failure; I50.43 Acute on chronic combined systolic (congestive) and diastolic (congestive) heart failure; I25.2 Old myocardial infarction; E78.5 Hyperlipidemia, unspecified; E03.9 Hypothyroidism, unspecified; I25.10 Atherosclerotic heart disease of native coronary artery without angina pectoris; Z79.01 Long term (current) use of anticoagulants
CPT/HCPCS: 36415; 36600; 71045; 80048; 80053; 82274; 82375; 82607; 82728; 82746; 82805; 82948; 83036; 83050; 83540; 83550; 83605; 83735; 83880; 84132; 84145; 84439; 84443; 84480; 84484; 85025; 85027; 85610; 85730; 86140; 86850; 86900; 86901; 87040; 93005; 94002; 94003; 94640; 96361; 96374; 96375; 96376; 97110; 97116; 97161; 97166; 97530; 99285; A9270; C9803; G0378; G0379; J0696; J1100; J1815; J1940; J3475; J7040; U0003; U0005

== ENCOUNTER 2021-06-01 11:08 | Inpatient (IN) | payer OTHER, SELFPAY ==
[2021-06-01] VITALS (10 sets, daily range): BP systolic 100–136; BP diastolic 53–80; PULSE 81–102; RESP 14–22; TEMP 35.8–36.6; O2SAT 91–100; BMI 35.0
--- NOTE | ~2021-06-01 | XR_ITS ---
XR chest 2V 06/01/2021 11:31 Indication: Shortness of breath. CHF. Procedure: AP and lateral views of the chest Comparison: Comparison to multiple prior studies sequentially, with oldest reviewed study dated 08/05. Findings: Status post median sternotomy for CABG. Cardiomegaly. Improving interstitial edema. Small l eft pleural effusion. No pneumothorax. Impression: 1: Cardiomegaly with improving interstitial edema. 2: Small left pleural effusion. Reviewed, dictated and finalized at location A. Impression: 1: Cardiomegaly with improving interstitial edema. 2: Small left pleural effusion.
--- NOTE | ~2021-06-01 | CT_ITS ---
EXAMINATION: CT abdomen pelvis wo con DATE: 06/04/2021 14:36 INDICATION: Left-sided abdominal pain TECHNIQUE: Computed tomography (CT) of the abdomen and pelvis was performed without intravenous contr ast. The dose-length product (DLP) was 1472.17 mGy-cm. Automated exposure control and iterative recon struction technique were employed. COMPARISON: 04/02/2021 FINDINGS: There is a moderate size left pleural effusion and a trace right pleural effusion. Cardiome con is noted. There is atelectasis of the visualized lung bases. Punctate calcifications in an other [place] normal spleen likely represent healed granulomatous disease. The liver, pancreas, gallbladder, a nd adrenal glands are normal. There is a 2.8 cm cyst of the right kidney. The left kidney is unremark able. There is calcified atherosclerosis of the aorta and many of the other arteries. The appendix is normal. There is mild bilateral inguinal and right external iliac chain lymphadenopathy. A small vol ume of pelvic ascites is noted. There is a moderate volume of fluid in the left abdominal wall subcut aneous tissues and insinuating in the lateral abdominal wall musculature. There is severe lumbar spon dylosis. IMPRESSION: 1. Moderate volume of asymmetric fluid in the left lateral abdominal wall of unclear etiology, correl ate for history of trauma. 2. Moderate size left pleural effusion. 3. Small volume of ascites. 4. Bilateral inguinal and right pelvic lymphadenopathy, possibly reactive. Reviewed, dictated and finalized at location A. IMPRESSION: 1. Moderate volume of asymmetric fluid in the left lateral abdominal wall of un clear etiology, correlate for history of trauma. 2. Moderate size left pleural effusion. 3. Small volume of ascites. 4. Bilateral inguinal and right pelvic lymphadenopathy, possibly reactive.
--- NOTE | 2021-06-01 11:17 | ECG_ITS ---
Measurements Intervals [place]man Rate: 84 P: 48 VA: 163 QRS: -23 QRSD: 130 T: 112 QT: 413 QTc: 490 Interpretive Statements SINUS RHYTHM POSSIBLE LEFT ATRIAL ENLARGEMENT INTRAVENTRICULAR CONDUCTION DELAY CANNOT RULE OUT SEPTAL INFARCT, AGE INDETERMINATE ST-T WAVE ABNORMALITY IN HIGH LATERAL LEADS- CONSIDER ISCHEMIA BASELINE ARTIFACT- I, III, AVR, AVL, AVF ABNORMAL ECG Electronically Signed On 06-01-2021 11:43:11 CDT by Valentín James D.O.
[2021-06-01 11:30] LABS: Basophils Absolute Auto 0.1 K/mm3 (0.0-0.1); Basophils Percent Auto 0.5 % (0.2-1.2); Eosinophils Absolute Auto 0.3 K/mm3 (0-0.3); Eosinophils Percent Auto 2.8 % (0-4.4); Hematocrit 26.8 % (42.0-52.0); Hemoglobin 7.8 g/dL (14.0-18.0); Immature Granulocyte Absolute 0.06 K/mm3 (0.00-0.031); Immature Granulocyte Percent A 0.6 % (0-0.5); Lymphocytes Absolute Auto 0.77 K/mm3 (0.9-3.2); Lymphocytes Percent Auto 7.9 % (18.3-44.2); Mean Corpuscular HGB Conc 29.1 g/dl (32-36); Mean Corpuscular Hemoglobin 23.5 pg (26-34); Mean Corpuscular Volume 80.7 fl (80-100); Mean Platelet Volume 10.8 fl (7.4-10.4); Monocytes Absolute Auto 1.1 K/mm3 (0.1-0.6); Monocytes Percent Auto 10.9 % (2.6-8.5); Neutrophils Absolute Auto 7.5 K/mm3 (1.3-6.7); Neutrophils Percent Auto 77.3 % (45.5-73.1); Nucleated Red Blood Cells Perc 0.2 % (0.0-0.2); Platelet Count Result 199 k/mm3 (150-375); Red Blood Count 3.32 M/mm3 (4.6-6.20); Red Cell Distribution Width 17.3 % (11.5-14.5); White Blood Count 9.7 K/mm3 (4.5-10.0)
[2021-06-01 11:41] LABS: INR 2.1; Prothrombin Time 22.9 Seconds (11.1-14.7)
[2021-06-01 11:42] LABS: Partial Thromboplastin Time 51.8 SECONDS (22.3-36.8)
[2021-06-01 11:46] LABS: Hypochromasia 2+ (NORMAL); Ovalocytes 1+ (NORMAL); Platelet Estimate Adequate (Adequate); Tear Drop Cells 1+ (NORMAL)
[2021-06-01 11:49] LABS: Anion Gap 9 mmol/L (8-16); Blood Urea Nitrogen 35 mg/dL (9-20); Calcium 8.7 mg/dL (8.4-10.2); Carbon Dioxide 25 mmol/L (22-30); Chloride 101 mmol/L (98-107); Estimated CRCL calculation 64 ml/min; Estimated Glomerular Filt Rate 44; Glucose 173 mg/dL (65-110); Potassium 4.6 mmol/L (3.4-5.0); Sodium 135 mmol/L (137-145)
[2021-06-01 12:02] LABS: NT Pro B Type Natriuretic Pept 2750 pg/mL (5-100); Troponin I < 0.012 ng/mL (0.000-0.034)
--- NOTE | 2021-06-01 12:07 | PC.NURSE ---
sachin called lab, saray, added on hepatic
[2021-06-01 12:20] LABS: Alanine Aminotransferase 14 U/L (4-50); Albumin Level 4.1 g/dL (3.5-5.1); Alkaline Phosphatase 101 U/L (38-126); Aspartate Amino Transferase 25 U/L (17-59)
[2021-06-01 12:26] LABS: Alveolar/Arterial O2 Gradient 40.8 mmHg; Fractional Inspired Oxygen 21 %; HCO3 ABG 25.3 mEq/l (22.0-26.0); Oxygen Content ABG 11.1 %vol (16.0-22.0); Oxygen Saturation ABG 92.8 % (95.0-100.0); Oxyhemoglobin 90.2 % THb (90.0-100.0); PCO2 ABG 38.6 mmHg (35.0-45.0); PO2 ABG 62.7 mmHg (80.0-100.0); PO2 FiO2 Ratio Arterial Blood 2.99 %; Total Hemoglobin 8.7 g/dL (12.0-18.0); pH ABG 7.434 (7.350-7.450)
[2021-06-01 12:27] LABS: Device ROOM AIR; Modified Allen's Test Pass; Site Drawn RIGHT RADIAL
--- NOTE | 2021-06-01 12:44 | ED.SOB ---
HPI - SOB/Dyspnea General Chief Complaint: Shortness of Breath/Dyspnea Stated Complaint: SOB Time Seen by Provider: 06/01/21 11:35 Source: patient and RN notes reviewed Mode of arrival: EMS Limitations: no limitations History of Present Illness HPI Narrative: This is 60 year old male with history of DVT on eliquis, CHF, CABG, and cva who presents for evaluation of anasarca with shortness of breath. Patient states he was admitted to [facility] 1 month ago for CHF. He states he developed swelling to his legs and arms after having his lasix stopped 1 month ago. He was admitted to the hospital for diuresis. He states he has been taking his lasix but his swelling has worsened again. HE denies chest pain but he reports shortness of breath with exertion. He reports weight gain. He was diagnosed with upper extremity DVT so he is on Eliquis. Related Data Home Medications Medication Instructions Recorded Confirmed Lantus U-100 Insulin 30 unit SUBCUT 03/30/21 06/01/21 acetaminophen [Tylenol] 650 mg PO Q6H PRN 03/30/21 06/01/21 allopurinol 300 mg PO DAILY 03/30/21 06/01/21 aspirin 81 mg PO DAILY 03/30/21 06/01/21 atorvastatin 40 mg PO HS 03/30/21 06/01/21 baclofen 5 mg PO BIDPC PRN 03/30/21 06/01/21 biotin 5,000 mcg PO DAILY 03/30/21 06/01/21 bisacodyl 10 mg RECTAL DAILY PRN 03/30/21 06/01/21 carvedilol 6.25 mg PO DAILY 03/30/21 06/01/21 cetirizine 10 mg PO DAILY 03/30/21 06/01/21 docusate sodium 100 mg PO DAILY PRN 03/30/21 06/01/21 finasteride 5 mg PO DAILY 03/30/21 06/01/21 gabapentin 300 mg PO HS 03/30/21 06/01/21 gabapentin 600 mg PO TID 03/30/21 06/01/21 insulin lispro 3 unit SUBCUT AC 03/30/21 06/01/21 levothyroxine 137 mcg PO QAM 03/30/21 06/01/21 pantoprazole 40 mg PO DAILY 03/30/21 06/01/21 ropinirole 1 mg PO HS 03/30/21 06/01/21 sertraline 75 mg PO HS 03/30/21 06/01/21 tamsulosin 0.8 mg PO HS 03/30/21 06/01/21 tramadol 100 mg PO Q8H PRN 03/30/21 06/01/21 ondansetron 4 mg PO TID PRN 04/19/21 06/01/21 diclofenac sodium 2 g TOPICAL Q6H PRN 04/20/21 06/01/21 apixaban [Eliquis] 5 mg PO BID 06/01/21 06/01/21 ipratropium-albuterol 3 ml INHALATION Q4H PRN 06/01/21 06/01/21 metolazone 5 mg PO DAILY 06/01/21 06/01/21 Allergies Allergy/AdvReac Type Severity Reaction Status Date / Time No Known Allergies Allergy Unknown Verified 06/01/21 11:20 Review of Systems Review of Systems: All systems reviewed & are unremarkable except as noted in HPI and below [facility] Past Medical History Medical History (Updated 06/01/21 @ 19:17 by Callie Acosta MD) Benign prostatic hyperplasia Chronic anemia Combined systolic and diastolic congestive heart failure Coronary artery disease Status post three-vessel bypass and left ventricular aneurysm repair in February 2019 at [facility]. 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 Hyperlipidemia Hypertension Hypothyroidism Insulin dependent diabetes mellitus Hemoglobin A1c was 7.7% on 04/19/2021. Ischemic cardiomyopathy Most recent calculated EF was 31%. Myocardial infarction (~01/2019) Late presentation [place] found to have severe three-vessel disease, transferred to [facility] for emergent bypass with perioperative ventricular fibrillation arrest. Surgical History Surgical History History of coronary artery bypass graft (~02/2019) Three-vessel bypass and surgical repair of left ventricular aneurysm at [facility]. Family History Family History Mother Patient's mother is Hypertension Father Patient's father is Malignant neoplasm of prostate Social History Social History (Updated 06/01/21 @ 14:13 by Lilly Larios PA-C) Social History: Surrogate decision maker: Josie Hoffman
[2021-06-01] MEDS: FUROSEMIDE INJ 40 MG/4 ML VIAL IV PUSH ×2 (14:44→23:36)
--- NOTE | 2021-06-01 15:00 | PM.IMHP ---
H&P: HPI History of Present Illness Date/Time: 06/01/21 15:00 Chief Complaint: Edema and shortness of breath. Narrative: This is a 60-year-old male with coronary artery disease status post CABG, ischemic cardiomyopathy, mixed systolic and diastolic congestive heart failure with most recent measured EF of 31%, hypertension, insulin-dependent diabetes, and several other comorbidities who presented to the emergency department earlier today via EMS from [facility] for evaluation of edema shortness of breath. He has chronic lower extremity edema and seems to put weight on quite easily and quickly despite being hospitalized monthly for the last 3 months for diuresis. Last discharge was on 04/24/2021 and at that time he felt like the swelling had markedly improved and his dyspnea on exertion was back to baseline. Since that time he estimates he has put on 20 lb of fluid and it looks like he was prescribed metolazone 5 mg a day starting on 05/14/2021. Despite this he continues to have increasing shortness of breath on even minimal exertion, such is transferring from his wheelchair to the commode which is what occurred today. At the time my evaluation he reports that he has urinated quite a bit since admission. He is complaining of discomfort in his left flank and on exam the area is indurated with pitting edema. His swelling seems to be worse in his left leg and left arm as well when compared to the right and the patient admits that when he sits in his wheelchair that he leans to his left side. He denies fever, chills, sweats, shortness of breath at this time, chest pain, pleuritic pain, palpitations, cough, nausea, vomiting, change in urine output, and concerns for urinary retention. Review of Systems Review of Systems: 12 systems were reviewed with pertinent positives and negatives as per HPI. Except as documented, all other systems were reviewed and are negative. [facility] Past Medical History Medical History Benign prostatic hyperplasia Chronic anemia Combined systolic and diastolic congestive heart failure Coronary artery disease Status post three-vessel bypass and left ventricular aneurysm repair in February 2019 at [facility]. 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 Hyperlipidemia Hypertension Hypothyroidism Insulin dependent diabetes mellitus Hemoglobin A1c was 7.7% on 04/19/2021. Ischemic cardiomyopathy Most recent calculated EF was 31%. Myocardial infarction (~01/2019) Late presentation [place] found to have severe three-vessel disease, transferred to [facility] for emergent bypass with perioperative ventricular fibrillation arrest. Surgical History Surgical History History of coronary artery bypass graft (~02/2019) Three-vessel bypass and surgical repair of left ventricular aneurysm at [facility]. Family History Family History Mother Patient's mother is Hypertension Father Patient's father is Malignant neoplasm of prostate Social History Social History Social History: Surrogate decision maker: Josie Ann, . Code status: Full code. Smoking packs per day: 1 Smoking cigarettes per day: 20.0 Smoking status: Former smoker Tobacco type: cigarettes Second hand tobacco smoke exposure: No Smoking end date: 11/19/08 Alcohol intake: never Substance use: never Substance use type: does not use Additional living arrangements comments: Resides at [facility]. His lives in [place]. They have 2 grown children. 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
--- NOTE | 2021-06-01 16:03 | ADMGEN ---
This patient, Bayron Ann, was admitted to Medical Room 255-. Patient/family oriented to hospital policies and general routines including ID bracelet, bed and alarms, visiting hours, pain management, procedures, bathroom and other care routines, personal items, smoking policy, room service/diet, and visiting hours. Information on how to activate the Rapid Response Team has been discussed. Patient/Family are encouraged to report perceived risks to care and to ask questions if they do not understand what they are told or what they should do.
[2021-06-01 21:42] LABS: Glucose Point of Care 168 mg/dl (65-105)
[2021-06-01] MEDS: rOPINIRole HCL 1 MG TABLET PO (23:33)
[2021-06-01] MEDS: GABAPENTIN 300 MG CAPSULE PO (23:33)
[2021-06-01] MEDS: SERTRALINE HCL 25 MG TABLET 75 MG PO (23:34)
[2021-06-01] MEDS: TAMSULOSIN HCL 0.4 MG CAPSULE 0.8 MG PO (23:35)
[2021-06-01] MEDS: MELATONIN 5 MG TABLET PO (23:39)
[2021-06-01] MEDS: ACETAMINOPHEN 325 MG TABLET 650 MG PO (23:39)
[2021-06-01] MEDS: INSULIN GLARGINE (*BKC) 100 UNITS/ML 30 UNITS SUB-Q (23:40)
[2021-06-02] MEDS: traMADol HCL (*CRX) 50 MG TABLET 100 MG PO ×2 (02:42→18:15)
[2021-06-02] MEDS: BACLOFEN 5 MG TABLET PO (03:20)
[2021-06-02 05:30] VITALS: BP 133/74; PULSE 102; RESP 20; TEMP 36.5; O2SAT 94
[2021-06-02] MEDS: LEVOTHYROXINE SODIUM 25 MCG TABLET PO (05:36)
[2021-06-02] MEDS: LEVOTHYROXINE SODIUM 112 MCG TABLET PO (05:36)
[2021-06-02 05:44] LABS: Basophils Absolute Auto 0.1 K/mm3 (0.0-0.1); Basophils Percent Auto 0.5 % (0.2-1.2); Eosinophils Absolute Auto 0.2 K/mm3 (0-0.3); Eosinophils Percent Auto 1.9 % (0-4.4); Hematocrit 25.2 % (42.0-52.0); Hemoglobin 7.3 g/dL (14.0-18.0); Immature Granulocyte Absolute 0.07 K/mm3 (0.00-0.031); Immature Granulocyte Percent A 0.8 % (0-0.5); Lymphocytes Absolute Auto 0.87 K/mm3 (0.9-3.2); Lymphocytes Percent Auto 9.3 % (18.3-44.2); Mean Corpuscular Hemoglobin 23.1 pg (26-34); Mean Corpuscular Volume 79.7 fl (80-100); Mean Platelet Volume 10.7 fl (7.4-10.4); Monocytes Absolute Auto 0.9 K/mm3 (0.1-0.6); Monocytes Percent Auto 9.9 % (2.6-8.5); Neutrophils Absolute Auto 7.2 K/mm3 (1.3-6.7); Neutrophils Percent Auto 77.6 % (45.5-73.1); Platelet Count Result 192 k/mm3 (150-375); Red Blood Count 3.16 M/mm3 (4.6-6.20); Red Cell Distribution Width 17.3 % (11.5-14.5); White Blood Count 9.3 K/mm3 (4.5-10.0)
[2021-06-02 05:53] LABS: INR 1.8; Prothrombin Time 20.6 Seconds (11.1-14.7)
[2021-06-02 06:11] LABS: Alanine Aminotransferase 13 U/L (4-50); Albumin Level 3.6 g/dL (3.5-5.1); Alkaline Phosphatase 95 U/L (38-126); Anion Gap 13 mmol/L (8-16); Aspartate Amino Transferase 23 U/L (17-59); Bilirubin,Total 1.1 mg/dL (0.2-1.3); Blood Urea Nitrogen 33 mg/dL (9-20); Calcium 8.9 mg/dL (8.4-10.2); Carbon Dioxide 23 mmol/L (22-30); Chloride 99 mmol/L (98-107); Estimated CRCL calculation 71 ml/min; Estimated Glomerular Filt Rate 51; Glucose 130 mg/dL (65-110); Magnesium 1.8 mg/dL (1.6-2.3); Sodium 135 mmol/L (137-145)
[2021-06-02 08:05] LABS: Thyroid Stimulating Hormone Reflex 0.538 uIU/mL (0.465-4.68)
[2021-06-02 08:34] LABS: Glucose Point of Care 153 mg/dl (65-105)
[2021-06-02] MEDS: DICLOFENAC SODIUM 1% 100 GM GEL (*BKC) 1 APPLIC TOPICAL ×2 (09:38→21:26)
[2021-06-02] MEDS: APIXABAN 5 MG TABLET PO ×2 (09:38→21:23)
[2021-06-02] MEDS: FUROSEMIDE INJ 40 MG/4 ML VIAL IV PUSH ×2 (09:38→21:22)
[2021-06-02 09:39] VITALS: PULSE 102
[2021-06-02] MEDS: PANTOPRAZOLE 40 MG TABLET PO (09:39)
[2021-06-02] MEDS: allopurinoL 300 MG TABLET PO (09:39)
[2021-06-02] MEDS: carvediloL 6.25 MG TABLET PO (09:39)
[2021-06-02] MEDS: amLODIPine BESYLATE 2.5 MG TABLET PO (09:39)
[2021-06-02] MEDS: lisinopriL 2.5 MG TABLET PO (09:39)
[2021-06-02] MEDS: FINASTERIDE 5 MG TABLET PO (09:39)
[2021-06-02] MEDS: LORATADINE 10 MG TABLET PO (09:39)
[2021-06-02] MEDS: ASPIRIN 81 MG ENTERIC TABLET PO (09:39)
[2021-06-02] MEDS: GABAPENTIN 300 MG CAPSULE 600 MG PO ×2 (09:41→18:10)
--- NOTE | 2021-06-02 11:00 | PM.IMPN ---
Progress Note: A&P Assessment and Plan (1) Congestive heart failure: Qualifiers: Heart failure type: combined systolic and diastolic Heart failure chronicity: acute on chronic Qualified Code(s): I50.43 - Acute on chronic combined systolic (congestive) and diastolic (congestive) heart failure Code(s): I50.9 - Heart failure, unspecified Status: Acute Assessment and Plan: Acute on chronic combined systolic and diastolic CHF. Last known EF 31% presents again with worsening edema and shortness of breath. Continue diuresis with IV lasix and monitor electrolytes, fluid status. (2) Chronic anemia: Code(s): D64.9 - Anemia, unspecified Status: Chronic Assessment and Plan: H&H low but stable. No evidence of acute bleeding. Monitor CBC. (3) Hypertension: Qualifiers: Hypertension type: primary hypertension Qualified Code(s): I10 - Essential (primary) hypertension Code(s): I10 - Essential (primary) hypertension Status: Chronic Assessment and Plan: BPs reviewed, stable last 133/74. Continue home amlodipine, carvedilol, lisinopril. (4) Insulin dependent diabetes mellitus: Status: Chronic Assessment and Plan: Recent A1c 7.7% last month. Continue Lantus. Continue to monitor with accu-cheks and adjust treatment as needed, cover with SSI. (5) Hypothyroidism: Qualifiers: Hypothyroidism type: unspecified Qualified Code(s): E03.9 - Hypothyroidism, unspecified Code(s): E03.9 - Hypothyroidism, unspecified Status: Chronic Assessment and Plan: Continue home levothyroxine. TSH within normal limits. (6) Edema: Qualifiers: Edema type: localized Qualified Code(s): R60.0 - Localized edema Code(s): R60.9 - Edema, unspecified Status: Acute Assessment and Plan: Suspect related to decompensated CHF as above. Concentrated on his left side as he favors leaning to this side due to weakness from prior CVAs. Edema to L abdomen, forearm, and leg. Continue diuresis as above. (7) CVA (cerebrovascular accident): Qualifiers: CVA mechanism: unspecified Qualified Code(s): I63.9 - Cerebral infarction, unspecified Code(s): I63.9 - Cerebral infarction, unspecified Status: Chronic Assessment and Plan: H/o prior CVAs with residual left-sided weakness. Stable, continue ASA and statin therapy. PT/OT appreciated. Subjective Date/time seen: 06/02/21 1045 Interval history: Mr. Ann is a 60yo M admitted with decomensated CHF. He reports his shortness of breath and swelling are a bit improved today. He denies chest pain. Serena a little nauseous before breakfast but this has subsided. No vomiting. Slept a little on and off last night. Review of Systems Review of Systems: All systems reviewed & are unremarkable except as noted in HPI and below Exam Narrative: General: Well-developed male in the semi-Buenrostro position in bed in no distress.Weight: 127.1 kg. BMI: 35.0. HEENT: normocephalic, EOMI. Sclerae anicteric. Oral mucosa moist. Neck: Supple. Respiratory: Lung sounds are diminished due to body habitus with very faint crackles at the bases. He is in no respiratory distress and is speaking in full sentences. Tolerating room air. Cardiovascular: Regular rate and rhythm with S1-S2. Gastrointestinal: Abdomen is obese and nondistended with positive bowel sounds. Left flank is indurated with pitting edema while of the right is fairly soft. There is no bruising or discoloration in this area. Is a bit tender to palpation. No voluntary guarding or rebound tenderness. Skin: W
[2021-06-02 13:12] LABS: Glucose Point of Care 176 mg/dl (65-105)
[2021-06-02 14:00] VITALS: BP 139/62; PULSE 92; RESP 18; TEMP 36.6; O2SAT 96
[2021-06-02 16:53] LABS: Glucose Point of Care 194 mg/dl (65-105)
[2021-06-02] MEDS: MAGNESIUM OXIDE 400 MG TABLET PO (18:10)
[2021-06-02] MEDS: MUPIROCIN 2% OINT 22 GM TUBE 1 APPLIC TOPICAL ×2 (18:15→21:24)
[2021-06-02] MEDS: TAMSULOSIN HCL 0.4 MG CAPSULE 0.8 MG PO (21:22)
[2021-06-02] MEDS: ATORVASTATIN 40 MG TABLET PO (21:23)
[2021-06-02] MEDS: GABAPENTIN 300 MG CAPSULE PO (21:23)
[2021-06-02] MEDS: SERTRALINE HCL 25 MG TABLET 75 MG PO (21:23)
[2021-06-02] MEDS: rOPINIRole HCL 1 MG TABLET PO (21:23)
[2021-06-02] MEDS: MELATONIN 5 MG TABLET PO (21:27)
[2021-06-02] MEDS: INSULIN GLARGINE (*BKC) 100 UNITS/ML 30 UNITS SUB-Q (21:35)
[2021-06-02 22:00] VITALS: BP 118/55; PULSE 96; RESP 18; TEMP 36.7; O2SAT 93
[2021-06-02 22:02] LABS: Glucose Point of Care 195 mg/dl (65-105)
[2021-06-03] MEDS: ACETAMINOPHEN 325 MG TABLET 650 MG PO (00:33)
[2021-06-03] MEDS: BACLOFEN 5 MG TABLET PO (00:34)
[2021-06-03 02:00] VITALS: BP 103/57; PULSE 89; RESP 18; TEMP 36; O2SAT 91
[2021-06-03] MEDS: traMADol HCL (*CRX) 50 MG TABLET 100 MG PO (02:22)
[2021-06-03] MEDS: LEVOTHYROXINE SODIUM 112 MCG TABLET PO (05:44)
[2021-06-03] MEDS: LEVOTHYROXINE SODIUM 25 MCG TABLET PO (05:44)
[2021-06-03 05:47] LABS: Hematocrit 24.7 % (42.0-52.0); Hemoglobin 7.3 g/dL (14.0-18.0); Mean Corpuscular HGB Conc 29.6 g/dl (32-36); Mean Corpuscular Hemoglobin 22.9 pg (26-34); Mean Corpuscular Volume 77.4 fl (80-100); Mean Platelet Volume 9.5 fl (7.4-10.4); Platelet Count Result 182 k/mm3 (150-375); Red Blood Count 3.19 M/mm3 (4.6-6.20); Red Cell Distribution Width 17.2 % (11.5-14.5)
[2021-06-03 06:00] VITALS: BP 102/57; PULSE 95; RESP 18; TEMP 36.3; O2SAT 93
[2021-06-03 06:00] LABS: Anion Gap 10 mmol/L (8-16); Blood Urea Nitrogen 32 mg/dL (9-20); Carbon Dioxide 28 mmol/L (22-30); Chloride 98 mmol/L (98-107); Estimated CRCL calculation 66 ml/min; Estimated Glomerular Filt Rate 47; Glucose 141 mg/dL (65-110); Magnesium 1.7 mg/dL (1.6-2.3); Potassium 3.6 mmol/L (3.4-5.0); Sodium 136 mmol/L (137-145)
[2021-06-03] MEDS: amLODIPine BESYLATE 2.5 MG TABLET PO (09:35)
[2021-06-03] MEDS: MAGNESIUM SULF 1 GM/D5W 100 ML 1 GM/100 ML BAG IVPB (09:35)
[2021-06-03] MEDS: allopurinoL 300 MG TABLET PO (09:35)
[2021-06-03 09:36] VITALS: PULSE 96
[2021-06-03] MEDS: APIXABAN 5 MG TABLET PO ×2 (09:36→20:31)
[2021-06-03] MEDS: ASPIRIN 81 MG ENTERIC TABLET PO (09:36)
[2021-06-03] MEDS: carvediloL 6.25 MG TABLET PO (09:36)
[2021-06-03] MEDS: FINASTERIDE 5 MG TABLET PO (09:37)
[2021-06-03] MEDS: FUROSEMIDE INJ 40 MG/4 ML VIAL IV PUSH ×2 (09:37→20:31)
[2021-06-03] MEDS: GABAPENTIN 300 MG CAPSULE 600 MG PO ×3 (09:37→18:05)
[2021-06-03] MEDS: lisinopriL 2.5 MG TABLET PO (09:38)
[2021-06-03] MEDS: PANTOPRAZOLE 40 MG TABLET PO (09:39)
[2021-06-03] MEDS: MAGNESIUM OXIDE 400 MG TABLET PO (09:39)
[2021-06-03] MEDS: MUPIROCIN 2% OINT 22 GM TUBE 1 APPLIC TOPICAL ×2 (09:39→20:30)
[2021-06-03] MEDS: LORATADINE 10 MG TABLET PO (09:39)
[2021-06-03 09:51] LABS: Glucose Point of Care 131 mg/dl (65-105)
--- NOTE | 2021-06-03 11:10 | PM.IMPN ---
Progress Note: A&P Assessment and Plan (1) Congestive heart failure: Qualifiers: Heart failure type: combined systolic and diastolic Heart failure chronicity: acute on chronic Qualified Code(s): I50.43 - Acute on chronic combined systolic (congestive) and diastolic (congestive) heart failure Code(s): I50.9 - Heart failure, unspecified Status: Acute Assessment and Plan: Acute on chronic combined systolic and diastolic CHF. Last known EF 31% presents again with worsening edema and shortness of breath. Continue diuresis with IV lasix and monitor electrolytes, fluid status. (2) Chronic anemia: Code(s): D64.9 - Anemia, unspecified Status: Chronic Assessment and Plan: H&H low but stable. No evidence of acute bleeding. Monitor CBC. (3) Hypertension: Qualifiers: Hypertension type: primary hypertension Qualified Code(s): I10 - Essential (primary) hypertension Code(s): I10 - Essential (primary) hypertension Status: Chronic Assessment and Plan: BPs reviewed, stable last 136/67. Continue home amlodipine, carvedilol, lisinopril. (4) Insulin dependent diabetes mellitus: Status: Chronic Assessment and Plan: Recent A1c 7.7% last month. Continue Lantus. Continue to monitor with accu-cheks and adjust treatment as needed, cover with SSI. (5) Hypothyroidism: Qualifiers: Hypothyroidism type: unspecified Qualified Code(s): E03.9 - Hypothyroidism, unspecified Code(s): E03.9 - Hypothyroidism, unspecified Status: Chronic Assessment and Plan: Continue home levothyroxine. TSH within normal limits. (6) Edema: Qualifiers: Edema type: localized Qualified Code(s): R60.0 - Localized edema Code(s): R60.9 - Edema, unspecified Status: Acute Assessment and Plan: Suspect related to decompensated CHF as above. Concentrated on his left side as he favors leaning to this side due to weakness from prior CVAs. Edema to L abdomen, forearm, and leg. Continue diuresis as above. (7) CVA (cerebrovascular accident): Qualifiers: CVA mechanism: unspecified Qualified Code(s): I63.9 - Cerebral infarction, unspecified Code(s): I63.9 - Cerebral infarction, unspecified Status: Chronic Assessment and Plan: H/o prior CVAs with residual left-sided weakness. Stable, continue ASA and statin therapy. PT/OT appreciated. Subjective Date/time seen: 06/03/21 11:00 Interval history: Mr. Ann is a 60yo M admitted with decompensated CHF. He feels his shortness of breath is improved. Swelling is a little improved today. He denies chest pain. Tolerating meals without nausea, vomiting, abdominal pain. Review of Systems Review of Systems: All systems reviewed & are unremarkable except as noted in HPI and below Exam Narrative: General: Well-developed male in the semi-Buenrostro position in bed in no distress eating lunch. HEENT: normocephalic, EOMI. Sclerae anicteric. Oral mucosa moist. Neck: Supple. Respiratory: Lung sounds are diminished due to body habitus with very faint crackles at the bases. He is in no respiratory distress and is speaking in full sentences. Tolerating room air. Cardiovascular: Regular rate and rhythm with S1-S2. Gastrointestinal: Abdomen is obese and nondistended with positive bowel sounds. Left flank is indurated with pitting edema while of the right is fairly soft. There is no bruising or discoloration in this area. Is a bit tender to palpation. No voluntary guarding or rebound tenderness. Skin: Warm and dry. Excoriations on the lower legs, left greater th
[2021-06-03 12:50] LABS: Glucose Point of Care 187 mg/dl (65-105)
[2021-06-03 13:00] VITALS: BP 136/67; PULSE 96; RESP 20; TEMP 36.4; O2SAT 94
[2021-06-03 18:01] LABS: Glucose Point of Care 206 mg/dl (65-105)
[2021-06-03] MEDS: INSULIN ASPART (*BKC) 100 UNITS/ML SUB-Q (18:04)
[2021-06-03 20:00] VITALS: PULSE 90; RESP 18; O2SAT 94
[2021-06-03] MEDS: TAMSULOSIN HCL 0.4 MG CAPSULE 0.8 MG PO (20:30)
[2021-06-03] MEDS: ATORVASTATIN 40 MG TABLET PO (20:31)
[2021-06-03] MEDS: rOPINIRole HCL 1 MG TABLET PO (20:31)
[2021-06-03] MEDS: SERTRALINE HCL 25 MG TABLET 75 MG PO (20:31)
[2021-06-03] MEDS: GABAPENTIN 300 MG CAPSULE PO (20:31)
[2021-06-03] MEDS: INSULIN GLARGINE (*BKC) 100 UNITS/ML 30 UNITS SUB-Q (20:43)
[2021-06-03 20:45] LABS: Glucose Point of Care 184 mg/dl (65-105)
[2021-06-03 20:49] VITALS: BP 107/69; PULSE 90; RESP 18; TEMP 36.2; O2SAT 94
[2021-06-04] MEDS: traMADol HCL (*CRX) 50 MG TABLET 100 MG PO ×2 (00:39→10:06)
[2021-06-04] MEDS: MELATONIN 5 MG TABLET PO ×3 (00:41→20:50)
[2021-06-04 04:58] LABS: Hematocrit 24.9 % (42.0-52.0); Hemoglobin 7.2 g/dL (14.0-18.0)
[2021-06-04 05:15] LABS: Anion Gap 10 mmol/L (8-16); Blood Urea Nitrogen 35 mg/dL (9-20); Calcium 8.8 mg/dL (8.4-10.2); Carbon Dioxide 28 mmol/L (22-30); Chloride 96 mmol/L (98-107); Estimated CRCL calculation 72 ml/min; Estimated Glomerular Filt Rate 51; Glucose 141 mg/dL (65-110); Magnesium 1.8 mg/dL (1.6-2.3); Potassium 3.9 mmol/L (3.4-5.0); Sodium 134 mmol/L (137-145)
[2021-06-04 05:33] VITALS: BP 118/69; PULSE 93; RESP 20; TEMP 36.3; O2SAT 94
[2021-06-04] MEDS: LEVOTHYROXINE SODIUM 25 MCG TABLET PO (06:08)
[2021-06-04] MEDS: LEVOTHYROXINE SODIUM 112 MCG TABLET PO (06:08)
[2021-06-04] MEDS: MAGNESIUM OXIDE 400 MG TABLET PO (09:57)
[2021-06-04] MEDS: FUROSEMIDE INJ 40 MG/4 ML VIAL IV PUSH ×2 (09:57→20:43)
[2021-06-04] MEDS: allopurinoL 300 MG TABLET PO (09:57)
[2021-06-04] MEDS: GABAPENTIN 300 MG CAPSULE 600 MG PO ×3 (09:57→17:52)
[2021-06-04] MEDS: FINASTERIDE 5 MG TABLET PO (09:57)
[2021-06-04 09:58] VITALS: PULSE 64
[2021-06-04] MEDS: carvediloL 6.25 MG TABLET PO (09:58)
[2021-06-04] MEDS: lisinopriL 2.5 MG TABLET PO (09:58)
[2021-06-04] MEDS: APIXABAN 5 MG TABLET PO ×2 (09:58→20:44)
[2021-06-04] MEDS: PANTOPRAZOLE 40 MG TABLET PO (09:58)
[2021-06-04] MEDS: ASPIRIN 81 MG ENTERIC TABLET PO (09:58)
[2021-06-04] MEDS: LORATADINE 10 MG TABLET PO (09:58)
[2021-06-04] MEDS: amLODIPine BESYLATE 2.5 MG TABLET PO (09:58)
[2021-06-04] MEDS: MUPIROCIN 2% OINT 22 GM TUBE 1 APPLIC TOPICAL ×2 (10:04→20:45)
[2021-06-04 11:19] LABS: Glucose Point of Care 152 mg/dl (65-105)
[2021-06-04 12:00] VITALS: BP 117/68; PULSE 90; RESP 18; TEMP 36.2; O2SAT 94
[2021-06-04 15:20] LABS: Glucose Point of Care 183 mg/dl (65-105)
--- NOTE | 2021-06-04 15:50 | PM.IMPN ---
Progress Note: A&P Assessment and Plan (1) Congestive heart failure: Qualifiers: Heart failure type: combined systolic and diastolic Heart failure chronicity: acute on chronic Qualified Code(s): I50.43 - Acute on chronic combined systolic (congestive) and diastolic (congestive) heart failure Code(s): I50.9 - Heart failure, unspecified Status: Acute Assessment and Plan: Acute on chronic combined systolic and diastolic CHF. Last known EF 31% presents again with worsening edema and shortness of breath. Continue diuresis with IV lasix and monitor electrolytes, fluid status. (2) Chronic anemia: Code(s): D64.9 - Anemia, unspecified Status: Chronic Assessment and Plan: H&H low but stable. No evidence of acute bleeding. Monitor CBC. (3) Hypertension: Qualifiers: Hypertension type: primary hypertension Qualified Code(s): I10 - Essential (primary) hypertension Code(s): I10 - Essential (primary) hypertension Status: Chronic Assessment and Plan: BPs reviewed, stable last 117/68. Continue home amlodipine, carvedilol, lisinopril. (4) Insulin dependent diabetes mellitus: Status: Chronic Assessment and Plan: Recent A1c 7.7% last month. Continue Lantus. Continue to monitor with accu-cheks and adjust treatment as needed, cover with SSI. (5) Hypothyroidism: Qualifiers: Hypothyroidism type: unspecified Qualified Code(s): E03.9 - Hypothyroidism, unspecified Code(s): E03.9 - Hypothyroidism, unspecified Status: Chronic Assessment and Plan: Continue home levothyroxine. TSH within normal limits. (6) Edema: Qualifiers: Edema type: localized Qualified Code(s): R60.0 - Localized edema Code(s): R60.9 - Edema, unspecified Status: Acute Assessment and Plan: Suspect related to decompensated CHF as above. Concentrated on his left side as he favors leaning to this side due to weakness from prior CVAs. Edema to L abdomen, forearm, and leg. Continue diuresis as above. Abdominal pain initially felt to be related to L abdominal wall induration from edema patient endorses is worsening today - obtain CT abd/pel. (7) CVA (cerebrovascular accident): Qualifiers: CVA mechanism: unspecified Qualified Code(s): I63.9 - Cerebral infarction, unspecified Code(s): I63.9 - Cerebral infarction, unspecified Status: Chronic Assessment and Plan: H/o prior CVAs with residual left-sided weakness. Stable, continue ASA and statin therapy. PT/OT appreciated. Subjective Date/time seen: 06/04/21 1130 Interval history: Mr. Ann is a 60yo M admitted with decompensated CHF. He feels his shortness of breath is improved. Swelling is a little improved today. He denies chest pain. He endorses concerns regarding some left-sided abdominal pain that we initially attributed to abdominal wall swelling, but he describes it as a pressure with intermittent sharp/stabbing pain that feels worse now over the last few days. Tolerating meals without nausea, vomiting. Review of Systems Review of Systems: All systems reviewed & are unremarkable except as noted in HPI and below Exam Narrative: General: Well-developed male resting sitting in bedside chair in no acute distress. HEENT: normocephalic, EOMI. Sclerae anicteric. Oral mucosa moist. Neck: Supple. Respiratory: Lung sounds are diminished due to body habitus with very faint crackles at the bases. He is in no respiratory distress and is speaking in full sentences. Tolerating room air. Cardiovascular: Regular rate and rhythm. Gastrointestin
[2021-06-04] MEDS: FERROUS SULFATE 324 MG TABLET PO (17:52)
[2021-06-04] MEDS: INSULIN ASPART (*BKC) 100 UNITS/ML SUB-Q (17:55)
[2021-06-04 18:23] LABS: Glucose Point of Care 231 mg/dl (65-105)
[2021-06-04 20:00] VITALS: PULSE 87; RESP 20; O2SAT 95
[2021-06-04] MEDS: SERTRALINE HCL 25 MG TABLET 75 MG PO (20:44)
[2021-06-04] MEDS: TAMSULOSIN HCL 0.4 MG CAPSULE 0.8 MG PO (20:44)
[2021-06-04] MEDS: ATORVASTATIN 40 MG TABLET PO (20:44)
[2021-06-04] MEDS: GABAPENTIN 300 MG CAPSULE PO (20:44)
[2021-06-04] MEDS: rOPINIRole HCL 1 MG TABLET PO (20:44)
[2021-06-04 20:50] LABS: Glucose Point of Care 223 mg/dl (65-105)
[2021-06-04] MEDS: INSULIN GLARGINE (*BKC) 100 UNITS/ML 30 UNITS SUB-Q (20:56)
[2021-06-04 21:05] VITALS: BP 116/62; PULSE 87; RESP 20; TEMP 36.1; O2SAT 95
[2021-06-05 04:53] VITALS: BP 115/66; PULSE 92; RESP 20; TEMP 36.1; O2SAT 96
[2021-06-05 05:25] LABS: Hematocrit 25.8 % (42.0-52.0); Hemoglobin 7.6 g/dL (14.0-18.0)
[2021-06-05 05:41] LABS: Anion Gap 12 mmol/L (8-16); Blood Urea Nitrogen 33 mg/dL (9-20); Carbon Dioxide 29 mmol/L (22-30); Chloride 93 mmol/L (98-107); Estimated CRCL calculation 72 ml/min; Estimated Glomerular Filt Rate 51; Glucose 161 mg/dL (65-110); Magnesium 1.8 mg/dL (1.6-2.3); Potassium 3.7 mmol/L (3.4-5.0); Sodium 134 mmol/L (137-145)
[2021-06-05] MEDS: LEVOTHYROXINE SODIUM 112 MCG TABLET PO (06:31)
[2021-06-05] MEDS: LEVOTHYROXINE SODIUM 25 MCG TABLET PO (06:31)
[2021-06-05 08:06] LABS: Glucose Point of Care 150 mg/dl (65-105)
[2021-06-05] MEDS: traMADol HCL (*CRX) 50 MG TABLET 100 MG PO (09:25)
[2021-06-05] MEDS: MAGNESIUM OXIDE 400 MG TABLET PO (09:26)
[2021-06-05] MEDS: PANTOPRAZOLE 40 MG TABLET PO (09:27)
[2021-06-05] MEDS: GABAPENTIN 300 MG CAPSULE 600 MG PO ×2 (09:27→12:27)
[2021-06-05] MEDS: FINASTERIDE 5 MG TABLET PO (09:27)
[2021-06-05] MEDS: LORATADINE 10 MG TABLET PO (09:27)
[2021-06-05] MEDS: amLODIPine BESYLATE 2.5 MG TABLET PO (09:27)
[2021-06-05] MEDS: ASPIRIN 81 MG ENTERIC TABLET PO (09:27)
[2021-06-05] MEDS: APIXABAN 5 MG TABLET PO (09:27)
[2021-06-05] MEDS: lisinopriL 2.5 MG TABLET PO (09:27)
[2021-06-05 09:28] VITALS: PULSE 92
[2021-06-05] MEDS: carvediloL 6.25 MG TABLET PO (09:28)
[2021-06-05] MEDS: FUROSEMIDE INJ 40 MG/4 ML VIAL IV PUSH (09:28)
[2021-06-05] MEDS: allopurinoL 300 MG TABLET PO (09:28)
[2021-06-05] MEDS: FERROUS SULFATE 324 MG TABLET PO (09:28)
[2021-06-05] MEDS: MUPIROCIN 2% OINT 22 GM TUBE 1 APPLIC TOPICAL (09:28)
[2021-06-05] MEDS: INSULIN ASPART (*BKC) 100 UNITS/ML SUB-Q (11:23)
[2021-06-05] MEDS: polyethylene glycoL 3350 17 GM POWD.PACK PO (11:27)
--- NOTE | 2021-06-05 11:27 | PM.DS ---
DS: Admitting Diagnosis Admitting Diagnosis CHF exacerbation DS: Discharge Diagnosis Discharge Diagnosis (1) Congestive heart failure: Qualifiers: Heart failure type: combined systolic and diastolic Heart failure chronicity: acute on chronic Qualified Code(s): I50.43 - Acute on chronic combined systolic (congestive) and diastolic (congestive) heart failure Code(s): I50.9 - Heart failure, unspecified Status: Acute Assessment and Plan: Date of Admission 06/01/21 Date of Discharge 06/05/21 Mr. Ann is a pleasant 60yo M with history of systolic and diastolic CHF, chronic anemia, hypertension, and history of prior CVA who presented to the ED for evaluation of progressively worsening shortness of breath, leg swelling and generalized weakness. See H&P for full details. He was admitted to the hospitalist service for acute on chronic CHF exacerbation. He was diuresed with IV lasix which he tolerated well. He is known to have left-sided weakness due to his prior CVAs. It is noted that he tends to lean to his left when sitting and much of his edema is concentrated to his left arm, left abdominal wall, and left leg. The edema to his abdominal wall caused him discomfort on this left side. CT performed due to this pain and showed no other acute etiology to explain his discomfort other than the known subcutaneous edema which hopefully will improve as he is further diuresed. CT showed moderate left pleural effusion. His shortness of breath is improved and his vital signs are stable. Should this persist or worsen despite continued diuresis, thoracentesis should be considered. His other chronic medical comorbidities remained stable. He showed clinical improvement in his symptoms and is hemodynamically stable for discharge on 06/05/21. He is instructed to double his lasix dose for the next 1 week and follow up with cardiology. Acute on chronic combined systolic and diastolic CHF. Last known EF 31% presents again with worsening edema and shortness of breath. Diuresed with IV lasix while monitoring electrolytes and fluid status. (2) Chronic anemia: Code(s): D64.9 - Anemia, unspecified Status: Chronic Assessment and Plan: H&H low but stable. No evidence of acute bleeding. Monitor CBC. (3) Hypertension: Qualifiers: Hypertension type: primary hypertension Qualified Code(s): I10 - Essential (primary) hypertension Code(s): I10 - Essential (primary) hypertension Status: Chronic Assessment and Plan: BPs stable maintained on his home amlodipine, carvedilol, lisinopril. (4) Insulin dependent diabetes mellitus: Status: Chronic Assessment and Plan: Recent A1c 7.7% last month. Continue Lantus, monitored accu-cheks and covered with sliding scale insulin as needed. (5) Hypothyroidism: Qualifiers: Hypothyroidism type: unspecified Qualified Code(s): E03.9 - Hypothyroidism, unspecified Code(s): E03.9 - Hypothyroidism, unspecified Status: Chronic Assessment and Plan: Continue home levothyroxine. TSH within normal limits. (6) Edema: Qualifiers: Edema type: localized Qualified Code(s): R60.0 - Localized edema Code(s): R60.9 - Edema, unspecified Status: Acute Assessment and Plan: Suspect related to decompensated CHF as above. Concentrated on his left side as he favors leaning to this side due to weakness from prior CVAs. Edema to L abdomen, forearm, and leg. Continue diuresis as above. (7) CVA (cerebrovascular accident): Qualifiers: CVA mechanism: unspecified Qualified Code(s): I63.9 - Cerebral infarction, unspecified Code(s): I63.9 - Cer
[2021-06-05 14:42] LABS: Glucose Point of Care 224 mg/dl (65-105)
== END 2021-06-05 14:30 | DRG 194 ==
LOC: ANHED 12:02 → ANH2MED 14:28
PROVIDERS: Physician Assistant; Admitting Provider Internal Medicine; Emergency Provider General Practice; PCP Family Medicine; Visit Provider Hospitalist
DX: I11.0 Hypertensive heart disease with heart failure (principal); I50.43 Acute on chronic combined systolic (congestive) and diastolic (congestive) heart failure; D50.9 Iron deficiency anemia, unspecified; I69.354 Hemiplegia and hemiparesis following cerebral infarction affecting left non-dominant side; E03.9 Hypothyroidism, unspecified; E11.9 Type 2 diabetes mellitus without complications
CPT/HCPCS: 36415; 36600; 71046; 74176; 80048; 80053; 80076; 82805; 82948; 83735; 83880; 84443; 84484; 85014; 85018; 85025; 85027; 85610; 85730; 93005; 96365; 96374; 96375; 96376; 97110; 97161; 97165; 97530; 97535; 99285; A9270; G0378; G0379; J1815; J1940; J3475

== ENCOUNTER 2021-06-05 21:27 | Emergency (ER) | payer OTHER, SELFPAY ==
--- NOTE | ~2021-06-05 | CT_ITS ---
EXAMINATION: CT facial & cervical spine wo DATE: 06/05/2021 23:05 INDICATION: Patient fell and struck face. Neck pain. TECHNIQUE: Computed tomography (CT) of the facial bones and cervical spine was performed without intr avenous contrast. Automated exposure control and iterative reconstruction technique were employed. Ex am dose: 531.70 mGy-cm total exam DLP. COMPARISON: None FINDINGS: Right frontal cephalohematoma. The frontozygomatic arches are intact. Zygomatic arches are intact. Normal alignment of the temporal mandibular joint. No orbital rim or wall fracture or blowout fracture of the orbits. No other facial fracture is detected. Several mucous retention cysts or polyps of the right maxillary sinus and focal minimal soft tissue t hickening at the anterior base of the left maxillary sinus. The paranasal sinuses otherwise are sameer lly developed and aerated. The mastoid air cells are normally developed and aerated. There is severe degenerative disease at C7-T1 and mild degenerative disc disease of the cervical spin e. There are degenerative changes of the apophyseal joints throughout the cervical spine. No cervical spine fracture or dislocation, locked facet or prevertebral soft tissue swelling. IMPRESSION: Right frontal cephalohematoma No facial fracture or cervical spine fracture Reviewed, dictated and finalized at [facility]. Reviewed, dictated and finalized at [facility].
--- NOTE | ~2021-06-05 | CT_ITS ---
EXAMINATION: CT brain wo con DATE: 06/05/2021 23:05 INDICATION: Fall. Patient struck face. Neck pain. TECHNIQUE: Computed tomography (CT) of the head was performed without intravenous contrast. The mA wa s adjusted according to patient size. Iterative reconstruction technique was employed. Exam dose: 68 1.00 mGy-cm total exam DLP. COMPARISON: 03/29/2021 CT brain FINDINGS: There is chronic encephalomalacia and gyral calcification involving the mid to posterior ri ght temporal, parietal and occipital areas within the right middle cerebral artery territory, consist ent with old infarct. Bilateral vertebral artery and bilateral carotid siphon internal carotid artery calcifications are no jose. There is nonspecific diminished attenuation of the cerebral white matter, likely due to chronic small vessel ischemic changes. Left frontal scalp hematoma. No underlying skull fracture is evident. No skull fracture is noted othe rwise. No intracranial mass lesion or hemorrhage or recent cerebrovascular accident is detected. No midline shift or mass effect effect. No subdural or epidural hematoma is detected. There is a mucous retention cyst or polyp in the lateral floor of the right maxillary sinus. The para nasal sinuses and mastoid air cells are otherwise unremarkable. finding or IMPRESSION: Old right middle cerebral artery territory infarct; no acute intracranial finding Left frontal cephalohematoma; no skull fracture Reviewed, dictated and finalized at [facility]. Reviewed, dictated and finalized at [facility]. IMPRESSION: Old right middle cerebral artery territory infarct; no acute intra cranial finding Left frontal cephalohematoma; no skull fracture
[2021-06-05 22:20] VITALS: BP 127/65; PULSE 92; RESP 18; TEMP 36.5; O2SAT 98
[2021-06-06] VITALS (12 sets, daily range): BP systolic 134–142; BP diastolic 71–105; PULSE 100–105; RESP 15–23; TEMP 36.6; O2SAT 92–96
--- NOTE | 2021-06-06 02:31 | ED.GENADULT ---
HPI - General Adult General Chief complaint: Fall Stated complaint: ground level fall Time Seen by Provider: 06/06/21 02:16 History of Present Illness HPI narrative: Patient 60-year-old gentleman who presents the emergency department with chief complaint of head injury. The patient reports that he was just discharged from the hospital is currently on blood thinners and was using a wheelchair. The patient states the cushion in his wheelchair slid forward and the patient slid out of his chair and struck his head against a table. The patient denies loss of consciousness reports that he has a small abrasion on the bridge of his nose the patient states that he currently is not having any neck pain denies chest pain denies shortness of breath patient denies any other injuries. Related Data Home Medications Medication Instructions Recorded Confirmed Lantus U-100 Insulin 30 unit SUBCUT 03/30/21 06/01/21 acetaminophen [Tylenol] 650 mg PO Q6H PRN 03/30/21 06/01/21 allopurinol 300 mg PO DAILY 03/30/21 06/01/21 aspirin 81 mg PO DAILY 03/30/21 06/01/21 atorvastatin 40 mg PO HS 03/30/21 06/01/21 baclofen 5 mg PO BIDPC PRN 03/30/21 06/01/21 biotin 5,000 mcg PO DAILY 03/30/21 06/01/21 bisacodyl 10 mg RECTAL DAILY PRN 03/30/21 06/01/21 carvedilol 6.25 mg PO DAILY 03/30/21 06/01/21 cetirizine 10 mg PO DAILY 03/30/21 06/01/21 docusate sodium 100 mg PO DAILY PRN 03/30/21 06/01/21 finasteride 5 mg PO DAILY 03/30/21 06/01/21 gabapentin 300 mg PO 03/30/21 06/01/21 gabapentin 600 mg PO TID 03/30/21 06/01/21 insulin lispro 3 unit SUBCUT AC 03/30/21 06/01/21 levothyroxine 137 mcg PO QA 03/30/21 06/01/21 pantoprazole 40 mg PO DAILY 03/30/21 06/01/21 ropinirole 1 mg PO 03/30/21 06/01/21 sertraline 75 mg PO 03/30/21 06/01/21 tamsulosin 0.8 mg PO HS 03/30/21 06/01/21 tramadol 100 mg PO Q8H PRN 03/30/21 06/01/21 ondansetron 4 mg PO TID PRN 04/19/21 06/01/21 diclofenac sodium 2 g TOPICAL Q6H PRN 04/20/21 06/01/21 Eliquis 5 mg PO BID 06/01/21 06/01/21 ipratropium-albuterol 3 ml INHALATION Q4H PRN 06/01/21 06/01/21 metolazone 5 mg PO DAILY 06/01/21 06/01/21 Allergies Allergy/AdvReac Type Severity Reaction Status Date / Time No Known Allergies Allergy Unknown Verified 06/05/21 22:22 Review of Systems Review of Systems: A 10 system review of systems was completed on the patient and is negative except for what is stated in the HPI. Nursing and ancillary documentation was reviewed. [facility] Past Medical History Medical History Benign prostatic hyperplasia Chronic anemia Combined systolic and diastolic congestive heart failure Coronary artery disease Status post three-vessel bypass and left ventricular aneurysm repair in February 2019 at [facility]. Current use of intermediate accountant anticoagulation Gout History of cerebrovascular accident (~01/2019) Post CABG right parietal infarction with clinical left hemiplegia. Hyperlipidemia Hypertension Hypothyroidism Insulin dependent diabetes mellitus Hemoglobin A1c was 7.7% on 04/19/2021. Ischemic cardiomyopathy Most recent calculated EF was 31%. Myocardial infarction (~01/2019) Late presentation [place] found to have severe three-vessel disease, transferred to [facility] for emergent bypass with perioperative ventricular fibrillation arrest. Surgical History Surgical History History of coronary artery bypass graft (~02/2019) Three-vessel bypass and surgical repair of left ventricular aneurysm at [facility]. Family History Family History Mother Patient's mother is Hypertension Father Patient's father is Malignant neoplasm of prostate Social History Social History Social History: Surrogate ricardois
[2021-06-06] MEDS: TETANUS,DIPHTHERIA,AC PERTUSSIS ADULT (0.5 ML) BOOSTRIX IM (02:48)
--- NOTE | 2021-06-06 03:30 | PC.NURSE ---
called [facility] to request transport. ETA 20- 30 minutes.
--- NOTE | 2021-06-06 03:35 | PC.NURSE ---
Attempted to call report to the [place], no answer.
--- NOTE | 2021-06-06 03:51 | PC.NURSE ---
[facility] here.
== END 2021-06-06 03:56 ==
PROVIDERS: Emergency Provider Emergency Medicine; PCP Family Medicine
DX: S00.83XA Contusion of other part of head, initial encounter (principal); S00.31XA Abrasion of nose, initial encounter; Z23 Encounter for immunization; I25.10 Atherosclerotic heart disease of native coronary artery without angina pectoris; E78.5 Hyperlipidemia, unspecified; I50.40 Unspecified combined systolic (congestive) and diastolic (congestive) heart failure; I11.0 Hypertensive heart disease with heart failure; E11.9 Type 2 diabetes mellitus without complications; I25.2 Old myocardial infarction; I25.5 Ischemic cardiomyopathy; E03.9 Hypothyroidism, unspecified; N40.0 Benign prostatic hyperplasia without lower urinary tract symptoms; M10.9 Gout, unspecified; Z95.1 Presence of aortocoronary bypass graft; Z86.73 Personal history of transient ischemic attack (TIA), and cerebral infarction without residual deficits; Z87.891 Personal history of nicotine dependence; Z79.01 Long term (current) use of anticoagulants; Z79.4 Long term (current) use of insulin; W05.0XXA Fall from non-moving wheelchair, initial encounter
CPT/HCPCS: 70450; 70486; 72125; 90471; 90715; 99284

== ENCOUNTER 2022-01-25 01:18 | Day surgery (SDC) | payer MEDICAID, SELFPAY ==
[2022-01-18 11:19] VITALS: BMI 31.1
[2022-01-25] MEDS: LACTATED RINGERS 1,000 ML 150 ML IV CONT (11:32)
[2022-01-25 11:40] VITALS: BP 177/89; PULSE 87; RESP 18; TEMP 36.8; O2SAT 95
[2022-01-25 11:40] LABS: Glucose Point of Care 233 mg/dl (65-105)
--- NOTE | 2022-01-25 12:08 | WPDANESEPPF ---
Anes - Initial Pre Proc Eval Procedure: Operation Date: 01/25/22 12:30 Proposed Procedures p Screening Colonoscopy - Omi Sosa MD Date/Time: 01/25/22 12:08 Surgeon: Omi Sosa MD Pre Op Diagnosis: neoplasm screening Patient Data Age: 61 Gender: M Height: 1.91 m Weight: 112.9 kg Last Vital Signs Temp 36.8 C 01/25/22 11:40 Pulse 87 01/25/22 11:40 Resp 18 01/25/22 11:40 BP 177/89 H 01/25/22 11:40 Pulse Ox 95 01/25/22 11:40 Allergies Allergy/AdvReac Type Severity Reaction Status Date / Time No Known Allergies Allergy Unknown Verified 01/25/22 11:30 Home Medications Medication Instructions Recorded Confirmed Type acetaminophen [Tylenol] 650 mg PO Q6H PRN 03/30/21 01/18/22 History allopurinol 300 mg PO DAILY 03/30/21 01/18/22 History aspirin 81 mg PO DAILY 03/30/21 01/18/22 History atorvastatin 40 mg PO HS 03/30/21 01/18/22 History baclofen 5 mg PO BIDPC PRN 03/30/21 01/18/22 History biotin 5,000 mcg PO DAILY 03/30/21 01/18/22 History bisacodyl 10 mg RECTAL DAILY PRN 03/30/21 01/18/22 History carvedilol 6.25 mg PO DAILY 03/30/21 01/18/22 History cetirizine 10 mg PO DAILY 03/30/21 01/18/22 History docusate sodium 100 mg PO DAILY PRN 03/30/21 01/18/22 History finasteride 5 mg PO DAILY 03/30/21 01/18/22 History gabapentin 300 mg PO HS 03/30/21 01/18/22 History gabapentin 600 mg PO TID 03/30/21 01/18/22 History insulin lispro 3 unit SUBCUT AC 03/30/21 01/18/22 History levothyroxine 137 mcg PO QAM 03/30/21 01/18/22 History pantoprazole 40 mg PO DAILY 03/30/21 01/18/22 History ropinirole 1 mg PO HS 03/30/21 01/18/22 History tamsulosin 0.8 mg PO HS 03/30/21 01/18/22 History amlodipine 2.5 mg PO DAILY #30 tablet 04/03/21 01/18/22 Rx melatonin 5 mg PO HS PRN #30 tablet 04/03/21 01/18/22 Rx lisinopril 2.5 mg PO QAM #60 tablet 04/24/21 01/18/22 Rx Eliquis 5 mg PO BID 06/01/21 01/18/22 History ipratropium-albuterol 3 ml INHALATION Q6H PRN 06/01/21 01/18/22 History metolazone 5 mg PO DAILY 06/01/21 01/18/22 History ferrous sulfate 324 mg PO DAILY 30 Days #30 tablet 06/05/21 01/18/22 Rx hydrocodone-acetaminophen 1 tablet PO Q8H PRN #10 tablet 06/05/21 Rx magnesium oxide 400 mg PO DAILY 7 Days #7 tablet 06/05/21 01/18/22 Rx diclofenac sodium 1 % topical gel 2 g TOPICAL Q6H PRN #100 g 11/21/21 01/18/22 Rx fluticasone propionate 50 1 spray INTRANASAL DAILY #16 g 11/21/21 01/18/22 Rx mcg/actuation nasal spray,suspension Complete Multivitamin-Mineral 1 cap PO DAILY 01/18/22 01/18/22 History Fleet Enema 1 applic RECTAL PRN PRN 01/18/22 01/18/22 History ascorbic acid (vitamin C) 500 mg PO BID 01/18/22 01/18/22 History duloxetine 60 mg PO DAILY 01/18/22 01/18/22 History furosemide 80 mg PO DAILY 01/18/22 01/18/22 History insulin glargine [Lantus Solostar 30 unit SUBCUT HS 01/18/22 01/18/22 History U-100 Insulin] loperamide 2 mg PO PRN PRN 01/18/22 01/18/22 History magnesium citrate 296 ml PO DAILY PRN 01/18/22 01/18/22 History magnesium hydroxide [Milk of 30 ml PO HS PRN 01/18/22 01/18/22 History Magnesia] montelukast 10 mg PO DAILY 01/18/22 01/18/22 History polyethylene glycol 3350 [Miralax] 17 g PO QAM 01/18/22 01/18/22 History primidone 100 mg PO DAILY 01/18/22 01/18/22 History tramadol 100 mg PO Q8H PRN 01/18/22 01/18/22 History Laboratory Tests 01/25/22 11:34 POC Capillary Glucose 233 mg/dl H mg/dl (65-105) Patient hx anesthesia problems: none Family hx anesthesia problems: none Results Review: All pre-operative results and documents have been reviewed as part of the pre-operative evaluation. [facility] Past Medical History Medical History Benign prostatic hyperplasia Chronic anemia Combined systolic and diastolic congestive heart failure Coronary artery disease Status post three-vessel bypass and left ventricular aneurysm repair in February 2019 at [facility]. Current use of residential ant
--- NOTE | 2022-01-25 12:25 | PM.HPGS ---
History of Present Illness History of Present Illness Consent: Risks, benefits, and alternatives have been discussed and questions answered. Patient agrees to proceed with procedure. Chief complaint: neoplasm screening Narrative: Bayron Ann is a 61 year old male here for first screening colonoscopy Review of Systems Constitutional: Constitutional: Denies headache(s) and Denies weakness Eyes: Eyes: Denies blurry vision ENT: Reports Normal hearing present, Denies headache(s) and Denies neck pain Cardiovascular: Cardiovascular: Denies chest pain and Denies dyspnea Respiratory: Respiratory: Denies dyspnea Gastrointestinal: Gastrointestinal: Reports no additional gastrointestinal complaints Genitourinary: Genitourinary: Denies dysuria Musculoskeletal: Musculoskeletal: Denies neck pain Integumentary/Breasts: Skin/Breast: Denies dry skin Neurologic: Reports Normal hearing present, Denies headache(s) and Denies weakness Psychiatric: Psychiatric: Denies anxiety Endocrine: Endocrine: Denies change in body appearance Hematologic/Lymphatic: Hematologic/Lymphatic: Denies easy bleeding Allergic/Immunologic: Allergic/Immunologic: Denies urticaria [facility] Past Medical History Medical History (Updated 01/25/22 @ 12:25 by Omi Sosa MD) Benign prostatic hyperplasia Chronic anemia Colon cancer screening Combined systolic and diastolic congestive heart failure Coronary artery disease Status post three-vessel bypass and left ventricular aneurysm repair in February [address] [facility]. Current use of manager long term care anticoagulation Gout History of cerebrovascular accident (~01/2019) Post CABG right parietal infarction with clinical left hemiplegia. Hyperlipidemia Hypertension Hypothyroidism Insulin dependent diabetes mellitus Hemoglobin A1c was 7.7% on 04/19/2021. Ischemic cardiomyopathy Most recent calculated EF was 31%. Myocardial infarction (~01/2019) Late presentation OR found to have severe three-vessel disease, transferred to [facility] for emergent bypass with perioperative ventricular fibrillation arrest. Surgical History Surgical History History of coronary artery bypass graft (~02/2019) Three-vessel bypass and surgical repair of left ventricular aneurysm at [facility]. Family History Family History Mother Patient's mother is Hypertension Father Patient's father is Malignant neoplasm of prostate Social History Social History Social History: Surrogate decision maker: Josie Ann, . Code status: Full code. Smoking packs per day: 1 Smoking cigarettes per day: 20.0 Years smoked: 20 Smoking pack-years: 20.00 Smoking status: Former smoker Tobacco type: cigarettes Second hand tobacco smoke exposure: No Smoking end date: 11/19/08 Alcohol intake: never Substance use: never Substance use type: does not use Living arrangements: half-way Additional living arrangements comments: Resides at [facility]. His lives in [place]. They have 2 grown children. 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 Gender identity (if verbalized by the patient): Male Sexual Orientation (if Verbalized by the Patient): Straight or Heterosexual Spiritual care concerns: No Meds Home Medications and Allergies Home Medications Medication Instructions Recorded Confirmed Type acetaminophen [Tylenol] 650 mg PO Q6H PRN 03/30/21 01/18/22 History allopurinol 300 mg PO DAILY 03/30/21 01/18/22 History aspirin 81 mg PO DAILY 03/30/21 01/18/22 History atorvastatin 40 mg PO HS 03/30/21 01/18/22 History baclofen 5 mg PO BIDPC PRN 03/30/21 01/18/22 History biotin 5,000 mcg PO DAILY
--- NOTE | 2022-01-25 12:32 | SUR.OPER ---
Pressure ulcer noted bilateral upper buttock.
[2022-01-25 12:45] VITALS: BP 126/55; PULSE 88; RESP 18; O2SAT 96
[2022-01-25 12:55] VITALS: BP 120/59; PULSE 97; RESP 25; O2SAT 93
[2022-01-25 12:57] LABS: Glucose Point of Care 221 mg/dl (65-105)
[2022-01-25 13:05] VITALS: BP 123/54; PULSE 86; RESP 19; O2SAT 95
== END 2022-01-25 13:38 | disposition home or self-care (01) ==
PROVIDERS: PCP Family Medicine; Visit Provider Internal Medicine Gastroenterology
PROC: 0DJD8ZZ Inspection of Lower Intestinal Tract, Via Natural or Artificial Opening Endoscopic (ICD-10-PCS; CPT 45378; principal; 2022-01-25 12:30)
DX: Z12.11 Encounter for screening for malignant neoplasm of colon (principal); K64.8 Other hemorrhoids; I11.0 Hypertensive heart disease with heart failure; I50.40 Unspecified combined systolic (congestive) and diastolic (congestive) heart failure; I25.10 Atherosclerotic heart disease of native coronary artery without angina pectoris; I25.5 Ischemic cardiomyopathy; E78.5 Hyperlipidemia, unspecified; E03.9 Hypothyroidism, unspecified; I25.2 Old myocardial infarction; M10.9 Gout, unspecified; D64.9 Anemia, unspecified; N40.0 Benign prostatic hyperplasia without lower urinary tract symptoms; Z95.1 Presence of aortocoronary bypass graft; Z86.73 Personal history of transient ischemic attack (TIA), and cerebral infarction without residual deficits; Z87.891 Personal history of nicotine dependence; E66.9 Obesity, unspecified; Z68.31 Body mass index [BMI] 31.0-31.9, adult; Z79.01 Long term (current) use of anticoagulants; Z79.82 Long term (current) use of aspirin; Z79.4 Long term (current) use of insulin; Z79.891 Long term (current) use of opiate analgesic
CPT/HCPCS: 45378; 82948; J2704; J7120

== ENCOUNTER 2022-02-02 19:12 | Emergency (ER) | payer MEDICAID, SELFPAY ==
[2022-02-02] VITALS (31 sets, daily range): BP systolic 99–170; BP diastolic 84–98; PULSE 79–99; RESP 14–23; TEMP 36.9; O2SAT 93–96
--- NOTE | ~2022-02-02 | CT_ITS ---
EXAMINATION: CT brain wo con DATE: 02/02/2022 20:46 INDICATION: Altered mental status. Syncope. Transient ischemic attack. TECHNIQUE: Computed tomography (CT) of the head was performed without intravenous contrast. The mA wa s adjusted according to patient size. Iterative reconstruction technique was employed. The dose-lengt h product was 681.00 mGy-cm. 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 There is no intracrani al hemorrhage, acute infarction, or abnormal intracranial mass lesion. There is ex vacuo dilatation o f right lateral ventricle. The orbits are normal. There is mild mucosal thickening in the paranasal s inuses. The mastoid air cells are normal. IMPRESSION: 1. Old infarct in the expected distribution of right middle cerebral artery. Reviewed, dictated and finalized at location A.
--- NOTE | 2022-02-02 19:13 | ECG_ITS ---
Measurements Intervals [place] Rate: 92 P: 66 NV: 185 QRS: -35 QRSD: 134 T: 93 QT: 377 QTc: 469 Interpretive Statements SINUS RHYTHM POSSIBLE LEFT ATRIAL ENLARGEMENT [-0.1mV P WAVE IN V1/V2] LEFT AXIS DEVIATION [QRS AXIS < -30] INTRAVENTRICULAR CONDUCTION DELAY [130+ ms QRS DURATION] BASELINE ARTIFACT ANTEROSEPTAL MYOCARDIAL INFARCTION , OF INDETERMINATE AGE [40+ ms Q WAVE IN V1-V4] ABNORMAL EKG COMPARED TO ECG 06/01/2021 11:15:30 NO SIGNIFICANT CHANGE Electronically Signed On 02-03-2022 17:03:18 CDT by Dajuan Small M.D.
--- NOTE | 2022-02-02 19:20 | PC.NURSE ---
Patient report given to GIAN Mejía. All questions answered and care of patient transferred.
[2022-02-02 19:37] LABS: Basophils Absolute Auto 0.1 K/mm3 (0.0-0.1); Basophils Percent Auto 0.8 % (0.2-1.2); Eosinophils Absolute Auto 0.4 K/mm3 (0-0.3); Eosinophils Percent Auto 4.1 % (0-4.4); Hematocrit 44.4 % (42.0-52.0); Hemoglobin 15.1 g/dL (14.0-18.0); Immature Granulocyte Absolute 0.22 K/mm3 (0.00-0.031); Lymphocytes Absolute Auto 1.56 K/mm3 (0.9-3.2); Lymphocytes Percent Auto 14.4 % (18.3-44.2); Mean Corpuscular Hemoglobin 31.8 pg (26-34); Mean Corpuscular Volume 93.5 fl (80-100); Monocytes Percent Auto 9.2 % (2.6-8.5); Neutrophils Absolute Auto 7.5 K/mm3 (1.3-6.7); Neutrophils Percent Auto 69.5 % (45.5-73.1); Platelet Count Result 161 k/mm3 (150-375); Red Blood Count 4.75 M/mm3 (4.6-6.20); Red Cell Distribution Width 14.2 % (11.5-14.5); White Blood Count 10.8 K/mm3 (4.5-10.0)
[2022-02-02 19:47] LABS: Alanine Aminotransferase 20 U/L (4-50); Albumin Level 4.4 g/dL (3.5-5.1); Alkaline Phosphatase 150 U/L (38-126); Anion Gap 9 mmol/L (8-16); Aspartate Amino Transferase 35 U/L (17-59); Bilirubin,Total 0.5 mg/dL (0.2-1.3); Blood Urea Nitrogen 40 mg/dL (9-20); Calcium 8.9 mg/dL (8.4-10.2); Carbon Dioxide 28 mmol/L (22-30); Chloride 100 mmol/L (98-107); Estimated CRCL calculation 75 ml/min; Estimated Glomerular Filt Rate 51; Glucose 244 mg/dL (65-110); INR 1.2; Potassium 4.2 mmol/L (3.4-5.0); Sodium 137 mmol/L (137-145)
[2022-02-02 19:48] LABS: Partial Thromboplastin Time 37.3 SECONDS (22.3-36.8)
--- NOTE | 2022-02-02 21:14 | ED.GENADULT ---
HPI - General Adult General Chief complaint: Altered Mental Status Stated complaint: AMS Time Seen by Provider: 02/02/22 19:17 Source: patient and EMS Mode of arrival: EMS Limitations: no limitations History of Present Illness HPI narrative: 61-year-old with a history of CVA, hyperlipidemia, hypertension was sent in from the shelter for the complaints of. Of unresponsiveness for 3 to 4 seconds. Patient upon arrival is alert denies any headache, chest pain, shortness of breath. He still states that I feel weak. Onset (ago): hour(s) (1) Exacerbating factors: none Associated symptoms: denies other symptoms Related Data Home Medications Medication Instructions Recorded Confirmed acetaminophen [Tylenol] 650 mg PO Q6H PRN 03/30/21 01/18/22 allopurinol 300 mg PO DAILY 03/30/21 01/18/22 aspirin 81 mg PO DAILY 03/30/21 01/18/22 atorvastatin 40 mg PO HS 03/30/21 01/18/22 baclofen 5 mg PO BIDPC PRN 03/30/21 01/18/22 biotin 5,000 mcg PO DAILY 03/30/21 01/18/22 bisacodyl 10 mg RECTAL DAILY PRN 03/30/21 01/18/22 carvedilol 6.25 mg PO DAILY 03/30/21 01/18/22 cetirizine 10 mg PO DAILY 03/30/21 01/18/22 docusate sodium 100 mg PO DAILY PRN 03/30/21 01/18/22 finasteride 5 mg PO DAILY 03/30/21 01/18/22 gabapentin 300 mg PO HS 03/30/21 01/18/22 gabapentin 600 mg PO TID 03/30/21 01/18/22 insulin lispro 3 unit SUBCUT AC 03/30/21 01/18/22 levothyroxine 137 mcg PO QAM 03/30/21 01/18/22 pantoprazole 40 mg PO DAILY 03/30/21 01/18/22 ropinirole 1 mg PO HS 03/30/21 01/18/22 tamsulosin 0.8 mg PO 03/30/21 01/18/22 Eliquis 5 mg PO BID 06/01/21 01/18/22 ipratropium-albuterol 3 ml INHALATION Q6H PRN 06/01/21 01/18/22 metolazone 5 mg PO DAILY 06/01/21 01/18/22 Complete Multivitamin-Mineral 1 cap PO DAILY 01/18/22 01/18/22 Fleet Enema 1 applic RECTAL PRN PRN 01/18/22 01/18/22 ascorbic acid (vitamin C) 500 mg PO BID 01/18/22 01/18/22 duloxetine 60 mg PO DAILY 01/18/22 01/18/22 furosemide 80 mg PO DAILY 01/18/22 01/18/22 insulin glargine [Lantus Solostar 30 unit SUBCUT HS 01/18/22 01/18/22 U-100 Insulin] loperamide 2 mg PO PRN PRN 01/18/22 01/18/22 magnesium citrate 296 ml PO DAILY PRN 01/18/22 01/18/22 magnesium hydroxide [Milk of 30 ml PO HS PRN 01/18/22 01/18/22 Magnesia] montelukast 10 mg PO DAILY 01/18/22 01/18/22 polyethylene glycol 3350 [Miralax] 17 g PO QAM 01/18/22 01/18/22 primidone 100 mg PO DAILY 01/18/22 01/18/22 tramadol 100 mg PO Q8H PRN 01/18/22 01/18/22 Allergies Allergy/AdvReac Type Severity Reaction Status Date / Time No Known Allergies Allergy Unknown Verified 01/25/22 11:30 Review of Systems Review of Systems: All systems reviewed & are unremarkable except as noted in HPI and below Constitutional: Constitutional: Reports no additional constitutional complaints Eyes: Eyes: Reports no additional eye complaints Cardiovascular: Cardiovascular: Reports no additional cardiovascular complaints Respiratory: Respiratory: Reports no additional respiratory complaints Musculoskeletal: Musculoskeletal: Reports no additional musculoskeletal complaints [facility] Past Medical History Medical History Benign prostatic hyperplasia Chronic anemia Colon cancer screening Combined systolic and diastolic congestive heart failure Coronary artery disease Status post three-vessel bypass and left ventricular aneurysm repair in February 2019 at [facility]. 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 Hyperlipidemia Hypertension Hypothyroidism Insulin dependent diabetes mellitus Hemoglobin A1c was 7.7% on 04/19/2021. Ischemic cardiomyopathy Most recent calculated EF was 31%. Myocardial infarction (~01/2019) Late presentation [place] found to have severe three-vessel disease, transferred to [facility] for emergent bypass with perioperative ventricular fibrillation a
[2022-02-02 21:27] LABS: Add Urine Microscopic? YES; Amorphous Sediment Urine Few; Appearance Urine Cloudy (Clear); Bacteria Urine Trace /hpf; Bilirubin Urine Negative (Negative); Blood Urine Negative (Negative); Color Urine Yellow (Yellow); Glucose Urine UA Negative (Negative); Ketones Urine Negative (Negative); Leukocyte Esterase Ur Negative LEU/UL (Negative); Mucus Urine Rare /lpf; Nitrate Urine Negative (Negative); Protein Urine 1+ mg/dL (Negative); RBC Urine 0-2 /hpf (0-2); Specific Grav Ur 1.014 (1.001-1.035); Urobilinogen Urine Negative mg/dL (<2.0); WBC Urine 0-3 /hpf
[2022-02-02] MEDS: BACLOFEN 5 MG TABLET PO (23:05)
[2022-02-03] VITALS (12 sets, daily range): BP systolic 144–162; BP diastolic 79–98; PULSE 84–96; RESP 16–18; O2SAT 93–96
--- NOTE | 2022-02-03 04:38 | PC.NURSE ---
Rosaura called at 2200 [facility]. eta was given as 2300, then eta was updated to 0000, then flat tire to ambulance, then arrived at 315am. Laura tech
== END 2022-02-03 03:23 ==
PROVIDERS: Emergency Provider Family Medicine; PCP Family Medicine
DX: R53.1 Weakness (principal); R41.82 Altered mental status, unspecified; E78.5 Hyperlipidemia, unspecified; D64.9 Anemia, unspecified; I50.40 Unspecified combined systolic (congestive) and diastolic (congestive) heart failure; I25.10 Atherosclerotic heart disease of native coronary artery without angina pectoris; Z95.1 Presence of aortocoronary bypass graft; M10.9 Gout, unspecified; E03.9 Hypothyroidism, unspecified; E11.9 Type 2 diabetes mellitus without complications; I25.5 Ischemic cardiomyopathy; I69.954 Hemiplegia and hemiparesis following unspecified cerebrovascular disease affecting left non-dominant side; I11.0 Hypertensive heart disease with heart failure; I25.2 Old myocardial infarction; Z79.4 Long term (current) use of insulin; Z79.01 Long term (current) use of anticoagulants; Z79.82 Long term (current) use of aspirin; Z87.891 Personal history of nicotine dependence; I45.9 Conduction disorder, unspecified; R94.31 Abnormal electrocardiogram [ECG] [EKG]
CPT/HCPCS: 36415; 70450; 80053; 81001; 85025; 85610; 85730; 93005; 99284; A9270

== ENCOUNTER 2022-02-03 12:37 | Emergency (ER) | payer MEDICAID, SELFPAY ==
--- NOTE | ~2022-02-03 | CT_ITS ---
EXAMINATION: CT brain wo con EXAM DATE: 02/03/2022 15:11 INDICATION: Sleepy , weakness. TECHNIQUE: Spiral CT of the head was performed without contrast. Axial, coronal and sagittal images were reviewed. The dose-length product (DLP) for this examination was 681.00 mGy-cm. The exposure w as tailored according to patient size, and iterative reconstruction (ASIR) was used as additional dos e reduction technique. Comparison is made to prior examination from 02/02/2022. FINDINGS: There is no large infarction in right MCA distribution. There is mild microangiopathy and c erebral atrophy. There are no areas of restricted diffusion to suggest acute infarction. There is no acute hemorrhage seen on the T2*, a hemosiderin sensitive sequence. No intraparenchymal brain mass. The ventricles are normal in size. There are no extra-axial collections. Flow voids are seen in th e cerebral arteries on the T2-weighted sequences consistent with their expected patency. The orbits are unremarkable. Soft tissue is unremarkable. IMPRESSION: Large old right MCA infarction unchanged. No acute findings. Reviewed, dictated and finalized at location B.
--- NOTE | ~2022-02-03 | XR_ITS ---
EXAMINATION: XR chest 1V portable DATE: 02/03/2022 14:19 INDICATION: Weakness TECHNIQUE: frontal view of the chest was obtained. COMPARISON: Chest radiograph dated 06/01/21 FINDINGS: Persistent opacities at the left lower lung zones with blunting at the costophrenic angles consistent with small bilateral pleural effusions and associated basilar atelectasis and/or pneumonia. No pulmo nary edema, pneumothorax or right pleural effusion. Cardiomegaly. Median sternotomy wires and mediast inal surgical clips are seen, likely from prior coronary artery bypass grafting. IMPRESSION: 1. Small left pleural effusion with associated basilar atelectasis and/or pneumonia. 2. Cardiomegaly. Reviewed, dictated and finalized at location A. IMPRESSION: 1. Small left pleural effusion with associated basilar atelectasis and/or pneum onia. 2. Cardiomegaly.
[2022-02-03 12:43] VITALS: BP 148/79; PULSE 86; RESP 20; TEMP 36.3; O2SAT 92
--- NOTE | 2022-02-03 12:44 | ECG_ITS ---
Measurements Intervals [place] Rate: 84 P: 33 TN: 150 QRS: -34 QRSD: 131 T: 105 QT: 393 QTc: 466 Interpretive Statements SINUS RHYTHM POSSIBLE LEFT ATRIAL ENLARGEMENT [-0.1mV P WAVE IN V1/V2] LEFT AXIS DEVIATION [QRS AXIS < -30] BASELINE ARTIFACT INTRAVENTRICULAR CONDUCTION DELAY [130+ ms QRS DURATION] ANTEROSEPTAL MYOCARDIAL INFARCTION, AGE INDETERMINATE ABNORMAL ECG COMPARED TO ECG 02/02/2022 19:09:43 NO SIGNIFICANT CHANGES Electronically Signed On 02-03-2022 17:25:32 CDT by Dajuan Small M.D.
[2022-02-03 12:53] VITALS: PULSE 81
[2022-02-03 13:01] LABS: Basophils Absolute Auto 0.1 K/mm3 (0.0-0.1); Basophils Percent Auto 0.8 % (0.2-1.2); Eosinophils Absolute Auto 0.3 K/mm3 (0-0.3); Eosinophils Percent Auto 2.9 % (0-4.4); Hematocrit 47.8 % (42.0-52.0); Hemoglobin 16.1 g/dL (14.0-18.0); Immature Granulocyte Absolute 0.19 K/mm3 (0.00-0.031); Immature Granulocyte Percent A 1.9 % (0-0.5); Lymphocytes Absolute Auto 1.42 K/mm3 (0.9-3.2); Mean Corpuscular HGB Conc 33.7 g/dl (32-36); Mean Corpuscular Hemoglobin 31.8 pg (26-34); Mean Corpuscular Volume 94.3 fl (80-100); Mean Platelet Volume 10.7 fl (7.4-10.4); Monocytes Percent Auto 9.7 % (2.6-8.5); Neutrophils Absolute Auto 7.2 K/mm3 (1.3-6.7); Neutrophils Percent Auto 70.7 % (45.5-73.1); Platelet Count Result 157 k/mm3 (150-375); Red Blood Count 5.07 M/mm3 (4.6-6.20); Red Cell Distribution Width 14.3 % (11.5-14.5); White Blood Count 10.2 K/mm3 (4.5-10.0)
[2022-02-03 13:02] VITALS: BP 145/85; PULSE 78; RESP 15; O2SAT 96
--- NOTE | 2022-02-03 13:08 | PC.NURSE ---
Pt resting in bed, fall precautions in place, noted intermittent tremors, shaking on the right side.
[2022-02-03 13:48] LABS: Alanine Aminotransferase 19 U/L (4-50); Albumin Level 4.2 g/dL (3.5-5.1); Alkaline Phosphatase 113 U/L (38-126); Anion Gap 8 mmol/L (8-16); Aspartate Amino Transferase 28 U/L (17-59); Bilirubin,Total 0.6 mg/dL (0.2-1.3); Blood Urea Nitrogen 36 mg/dL (9-20); Calcium 8.9 mg/dL (8.4-10.2); Carbon Dioxide 29 mmol/L (22-30); Chloride 99 mmol/L (98-107); Estimated CRCL calculation 76 ml/min; Estimated Glomerular Filt Rate > 60; Glucose 301 mg/dL (65-110); Sodium 136 mmol/L (137-145)
--- NOTE | 2022-02-03 14:07 | ED.WEAKNESS ---
HPI - Weakness General Chief complaint: Weakness Stated complaint: weakness, lethargic Time Seen by Provider: 02/03/22 13:14 Source: patient, EMS and RN notes reviewed Mode of arrival: EMS Limitations: no limitations History of Present Illness HPI Narrative: Patient is 61 years old white male came from skilled nursing with a chief complaint of general weakness and falling asleep most of the day. Started yesterday. Patient was seen in our emergency room yesterday and was discharged without a specific diagnosis. Patient denies any fever, chills, nausea, vomiting, abdominal pain, chest pain, shortness of breath, headache, back pain or urinary symptoms. A lot of stress, fight with . Related Data Home Medications Medication Instructions Recorded Confirmed acetaminophen [Tylenol] 650 mg PO Q6H PRN 03/30/21 01/18/22 allopurinol 300 mg PO DAILY 03/30/21 01/18/22 aspirin 81 mg PO DAILY 03/30/21 01/18/22 atorvastatin 40 mg PO HS 03/30/21 01/18/22 baclofen 5 mg PO BIDPC PRN 03/30/21 01/18/22 biotin 5,000 mcg PO DAILY 03/30/21 01/18/22 bisacodyl 10 mg RECTAL DAILY PRN 03/30/21 01/18/22 carvedilol 6.25 mg PO DAILY 03/30/21 01/18/22 cetirizine 10 mg PO DAILY 03/30/21 01/18/22 docusate sodium 100 mg PO DAILY PRN 03/30/21 01/18/22 finasteride 5 mg PO DAILY 03/30/21 01/18/22 gabapentin 300 mg PO HS 03/30/21 01/18/22 gabapentin 600 mg PO TID 03/30/21 01/18/22 insulin lispro 3 unit SUBCUT AC 03/30/21 01/18/22 levothyroxine 137 mcg PO QAM 03/30/21 01/18/22 pantoprazole 40 mg PO DAILY 03/30/21 01/18/22 ropinirole 1 mg PO HS 03/30/21 01/18/22 tamsulosin 0.8 mg PO 03/30/21 01/18/22 Eliquis 5 mg PO BID 06/01/21 01/18/22 ipratropium-albuterol 3 ml INHALATION Q6H PRN 06/01/21 01/18/22 metolazone 5 mg PO DAILY 06/01/21 01/18/22 Complete Multivitamin-Mineral 1 cap PO DAILY 01/18/22 01/18/22 Fleet Enema 1 applic RECTAL PRN PRN 01/18/22 01/18/22 ascorbic acid (vitamin C) 500 mg PO BID 01/18/22 01/18/22 duloxetine 60 mg PO DAILY 01/18/22 01/18/22 furosemide 80 mg PO DAILY 01/18/22 01/18/22 insulin glargine [Lantus Solostar 30 unit SUBCUT HS 01/18/22 01/18/22 U-100 Insulin] loperamide 2 mg PO PRN PRN 01/18/22 01/18/22 magnesium citrate 296 ml PO DAILY PRN 01/18/22 01/18/22 magnesium hydroxide [Milk of 30 ml PO HS PRN 01/18/22 01/18/22 Magnesia] montelukast 10 mg PO DAILY 01/18/22 01/18/22 polyethylene glycol 3350 [Miralax] 17 g PO QAM 01/18/22 01/18/22 primidone 100 mg PO DAILY 01/18/22 01/18/22 tramadol 100 mg PO Q8H PRN 01/18/22 01/18/22 Allergies Allergy/AdvReac Type Severity Reaction Status Date / Time No Known Allergies Allergy Unknown Verified 02/03/22 13:10 [facility] Past Medical History Medical History Benign prostatic hyperplasia Chronic anemia Colon cancer screening Combined systolic and diastolic congestive heart failure Coronary artery disease Status post three-vessel bypass and left ventricular aneurysm repair in February 2019 at [facility]. 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 Hyperlipidemia Hypertension Hypothyroidism Insulin dependent diabetes mellitus Hemoglobin A1c was 7.7% on 04/19/2021. Ischemic cardiomyopathy Most recent calculated EF was 31%. Myocardial infarction (~01/2019) Late presentation [place] found to have severe three-vessel disease, transferred to [facility] for emergent bypass with perioperative ventricular fibrillation arrest. Surgical History Surgical History History of coronary artery bypass graft (~02/2019) Three-vessel bypass and surgical repair of left ventricular aneurysm at [facility]. Family History Family History Mother Patient's mother is Hypertension Father Patie
[2022-02-03 14:27] LABS: Alveolar/Arterial O2 Gradient 26.1 mmHg; Base Excess ABG 2.4 mEq/l (+/-2.0); Fractional Inspired Oxygen 21 %; HCO3 ABG 27.1 mEq/l (22.0-26.0); Oxygen Content ABG 21.1 %vol (16.0-22.0); Oxyhemoglobin 92.9 % THb (90.0-100.0); PCO2 ABG 42.2 mmHg (35.0-45.0); PO2 ABG 73.1 mmHg (80.0-100.0); PO2 FiO2 Ratio Arterial Blood 3.48 %; Total Hemoglobin 16.2 g/dL (12.0-18.0); pH ABG 7.426 (7.350-7.450)
[2022-02-03 14:28] LABS: Device ROOM AIR; Modified Allen's Test Pass; Site Drawn RIGHT RADIAL
[2022-02-03 14:30] VITALS: BP 135/85; PULSE 77; RESP 17; O2SAT 95
[2022-02-03 14:58] LABS: Troponin I < 0.012 ng/mL (0.000-0.034)
[2022-02-03 15:17] LABS: Thyroid Stimulating Hormone < 0.015 uIU/mL (0.465-4.680)
--- NOTE | 2022-02-03 16:28 | PC.NURSE ---
Ordered pt dinner tray at this time
--- NOTE | 2022-02-03 16:31 | PC.NURSE ---
[facility] accepted return to [facility] eta 1830 trip # [phone]
[2022-02-03 18:47] VITALS: PULSE 82; RESP 16
[2022-02-03 18:59] VITALS: BP 117/69; PULSE 80; RESP 22; O2SAT 92
== END 2022-02-03 19:27 ==
PROVIDERS: Emergency Medicine; Emergency Provider Emergency Medicine; PCP Family Medicine
DX: R53.1 Weakness (principal); N40.0 Benign prostatic hyperplasia without lower urinary tract symptoms; D64.9 Anemia, unspecified; I50.40 Unspecified combined systolic (congestive) and diastolic (congestive) heart failure; I25.10 Atherosclerotic heart disease of native coronary artery without angina pectoris; M10.9 Gout, unspecified; E78.5 Hyperlipidemia, unspecified; I11.0 Hypertensive heart disease with heart failure; E11.9 Type 2 diabetes mellitus without complications; I25.5 Ischemic cardiomyopathy; I25.2 Old myocardial infarction; Z95.1 Presence of aortocoronary bypass graft; Z87.891 Personal history of nicotine dependence; Z79.01 Long term (current) use of anticoagulants; Z79.4 Long term (current) use of insulin; Z79.82 Long term (current) use of aspirin; I51.7 Cardiomegaly; I45.9 Conduction disorder, unspecified; R94.31 Abnormal electrocardiogram [ECG] [EKG]
CPT/HCPCS: 36415; 36600; 70450; 71045; 80053; 82805; 84443; 84484; 85025; 93005; 99284

== ENCOUNTER 2022-04-03 14:25 | Emergency (ER) | payer MEDICAID, SELFPAY ==
--- NOTE | ~2022-04-03 | CT_ITS ---
EXAMINATION: CT brain wo con DATE: 04/03/2022 15:56 INDICATION: Altered mental status. History of hypertension. TECHNIQUE: Computed tomography (CT) of the head was performed without intravenous contrast. The dose- length product was 681.00 mGy-cm. Automated exposure control and iterative reconstruction technique w ere employed. COMPARISON: CT dated 02/03/2022 FINDINGS: There is a large chronic right parietal lobe infarction with a gyral calcification. There i s compensatory dilation of the right lateral ventricle. No midline shift. No acute intracranial hemor rhage, infarction, mass or mass effect. Mild mucosal thickening of the maxillary sinuses. Mastoids ar e pneumatized. No depressed skull fractures. IMPRESSION: 1. No acute intracranial abnormality. 2: Large chronic right parietal lobe infarction with encephalomalacia. Reviewed, dictated and finalized at location A.
--- NOTE | ~2022-04-03 | XR_ITS ---
XR chest 1V portable 04/03/2022 15:44 Indication: Altered mental status Procedure: AP portable chest Comparison: Comparison to multiple prior studies sequentially, with oldest reviewed study dated 04/19. Findings: Status post median sternotomy for CABG. Cardiomegaly is stable. Mild interstitial edema. Th ere is chronic left basilar airspace disease. Small left pleural effusion versus pleural thickening. No pneumothorax. No acute osseous abnormality. Impression: 1: Cardiomegaly with mild interstitial edema. 2: Chronic left basilar airspace disease which most likely represents atelectasis/scarring. 3: Chronic blunting left lateral costophrenic recess which may represent a small effusion or pleural thickening. Reviewed, dictated and finalized at location A. Impression: 1: Cardiomegaly with mild interstitial edema. 2: Chronic left basilar airspace disease which most likely represents atelecta sis/scarring. 3: Chronic blunting left lateral costophrenic recess which may represent a sma ll effusion or pleural thickening.
[2022-04-03 14:31] VITALS: BP 136/78; PULSE 75; RESP 18; TEMP 36.9; O2SAT 98
--- NOTE | 2022-04-03 14:58 | ECG_ITS ---
Measurements Intervals [place] Rate: 72 P: 45 WA: 173 QRS: -27 QRSD: 134 T: 118 QT: 436 QTc: 478 Interpretive Statements SINUS RHYTHM POSSIBLE LEFT ATRIAL ENLARGEMENT INTRAVENTRICULAR CONDUCTION DELAY POOR R WAVE PROGRESSION, ANTERIOR LEADS INFERIOR INFARCT, AGE INDETERMINATE ST-T WAVE ABNORMALITY IN HIGH LATERAL LEADS- CONSIDER ISCHEMIA BASELINE ARTIFACT- II, III, AVF ABNORMAL ECG Electronically Signed On 04-03-2022 20:16:35 CDT by Valentín James D.O.
[2022-04-03 15:17] LABS: Basophils Absolute Auto 0.1 K/mm3 (0.0-0.1); Basophils Percent Auto 0.6 % (0.2-1.2); Eosinophils Absolute Auto 0.4 K/mm3 (0-0.3); Eosinophils Percent Auto 3.2 % (0-4.4); Hematocrit 40.4 % (42.0-52.0); Hemoglobin 13.5 g/dL (14.0-18.0); Immature Granulocyte Absolute 0.28 K/mm3 (0.00-0.031); Immature Granulocyte Percent A 2.5 % (0-0.5); Lymphocytes Absolute Auto 1.69 K/mm3 (0.9-3.2); Lymphocytes Percent Auto 15.3 % (18.3-44.2); Mean Corpuscular HGB Conc 33.4 g/dl (32-36); Mean Corpuscular Hemoglobin 32.1 pg (26-34); Mean Platelet Volume 10.4 fl (7.4-10.4); Monocytes Percent Auto 8.7 % (2.6-8.5); Neutrophils Absolute Auto 7.7 K/mm3 (1.3-6.7); Neutrophils Percent Auto 69.7 % (45.5-73.1); Platelet Count Result 147 k/mm3 (150-375); Red Blood Count 4.21 M/mm3 (4.6-6.20); Red Cell Distribution Width 15.4 % (11.5-14.5); White Blood Count 11.1 K/mm3 (4.5-10.0)
[2022-04-03 15:28] LABS: Alanine Aminotransferase 23 U/L (6-50); Albumin Level 4.1 g/dL (3.5-5.1); Alkaline Phosphatase 140 U/L (38-126); Anion Gap 10 mmol/L (8-16); Aspartate Amino Transferase 40 U/L (17-59); Bilirubin,Total 0.5 mg/dL (0.2-1.3); Blood Urea Nitrogen 53 mg/dL (9-20); Calcium 8.5 mg/dL (8.4-10.2); Carbon Dioxide 28 mmol/L (22-30); Chloride 98 mmol/L (98-107); Estimated CRCL calculation 48 ml/min; Estimated Glomerular Filt Rate 41; Glucose 253 mg/dL (65-110); Magnesium 2.2 mg/dL (1.6-2.3); Potassium 3.9 mmol/L (3.4-5.0); Sodium 136 mmol/L (137-145)
[2022-04-03 15:39] LABS: NT Pro B Type Natriuretic Pept 1130 pg/mL (5-100); Troponin I 0.022 ng/mL (0.000-0.034)
--- NOTE | 2022-04-03 17:07 | ED.WEAKNESS ---
HPI - Weakness General Chief complaint: Weakness Stated complaint: lethargy Time Seen by Provider: 04/03/22 14:57 History of Present Illness HPI Narrative: 61-year-old male who states that he has been quite sleepy recently, says that while he was walking to the bathroom he started feeling like he was going to fall asleep again, so he kind of leaned against the wall, was found and brought here. He states that he has been seen for this in the past, they told him that they think he is just mental stress, he would like to have more complete work-up. Denies any chest pain, difficulty breathing, headache, focal numbness or weakness. No nausea or vomiting, no fevers or chills or recent illnesses. He does state that he likely snores at night and is supposed to sleep with a CPAP machine Related Data Home Medications Medication Instructions Recorded Confirmed acetaminophen 325 mg tablet 650 mg PO Q6H PRN Mild Pain (Scale 03/30/21 01/18/22 (Tylenol) Score 1-4) allopurinol 300 mg tablet 300 mg PO DAILY 03/30/21 01/18/22 aspirin 81 mg tablet,delayed 81 mg PO DAILY 03/30/21 01/18/22 release atorvastatin 40 mg tablet 40 mg PO HS 03/30/21 01/18/22 baclofen 5 mg tablet 5 mg PO BIDPC PRN Pain 03/30/21 01/18/22 biotin 5,000 mcg disintegrating 5,000 mcg PO DAILY 03/30/21 01/18/22 tablet bisacodyl 10 mg rectal suppository 10 mg RECTAL DAILY PRN Constipation 03/30/21 01/18/22 carvedilol 6.25 mg tablet 6.25 mg PO DAILY 03/30/21 01/18/22 cetirizine 10 mg tablet 10 mg PO DAILY 03/30/21 01/18/22 docusate sodium 100 mg capsule 100 mg PO DAILY PRN Constipation 03/30/21 01/18/22 finasteride 5 mg tablet 5 mg PO DAILY 03/30/21 01/18/22 gabapentin 300 mg capsule 300 mg PO HS 03/30/21 01/18/22 gabapentin 600 mg tablet 600 mg PO TID 03/30/21 01/18/22 insulin lispro 100 unit/mL 3 unit subcut AC 03/30/21 01/18/22 subcutaneous pen levothyroxine 137 mcg tablet 137 mcg PO QAM 03/30/21 01/18/22 pantoprazole 40 mg tablet,delayed 40 mg PO DAILY 03/30/21 01/18/22 release ropinirole 1 mg tablet 1 mg PO HS 03/30/21 01/18/22 tamsulosin 0.4 mg capsule 0.8 mg PO HS 03/30/21 01/18/22 apixaban 5 mg tablet (Eliquis) 5 mg PO BID 06/01/21 01/18/22 ipratropium 0.5 mg-albuterol 3 mg 3 ml inhalation Q6H PRN Shortness 06/01/21 01/18/22 (2.5 mg base)/3 mL nebulization Of Breath soln metolazone 5 mg tablet 5 mg PO DAILY 06/01/21 01/18/22 Complete Multivitamin-Mineral 1 cap PO DAILY 01/18/22 01/18/22 Fleet Enema 1 applic RECTAL PRN PRN 01/18/22 01/18/22 Constipation ascorbic acid (vitamin C) 500 mg 500 mg PO BID 01/18/22 01/18/22 capsule duloxetine 60 mg capsule,delayed 60 mg PO DAILY 01/18/22 01/18/22 release furosemide 80 mg tablet 80 mg PO DAILY 01/18/22 01/18/22 insulin glargine 100 unit/mL (3 30 unit subcut HS 01/18/22 01/18/22 mL) subcutaneous pen (Lantus Solostar U-100 Insulin) loperamide 2 mg capsule 2 mg PO PRN PRN Diarrhea 01/18/22 01/18/22 magnesium citrate 296 ml PO DAILY PRN Constipation 01/18/22 01/18/22 magnesium hydroxide 400 mg/5 mL 30 ml PO HS PRN Constipation 01/18/22 01/18/22 oral suspension (Milk of Magnesia) montelukast 10 mg tablet 10 mg PO DAILY 01/18/22 01/18/22 polyethylene glycol 3350 17 gram 17 g PO QAM 01/18/22 01/18/22 oral powder packet (Miralax) primidone 50 mg tablet 100 mg PO DAILY 01/18/22 01/18/22 tramadol 50 mg tablet 100 mg PO Q8H PRN Pain 01/18/22 01/18/22 Allergies Allergy/AdvReac Type Severity Reaction Status Date / Time No Known Allergies Allergy Unknown Verified 02/03/22 13:10 Review of Systems Review of Systems: CONST: No fever. HEENT: No sore throat C/V: No chest pain RESP: No cough GI: No nausea or vomiting : No dysuria. M/S: No joint pain. SKIN: No rash. NEURO: [No headache or focal numbness or weakness] PSYCH: Sleepy PMFSH Past Medical History Medical History Benign prostatic hyperplasia Chronic anemia Colon cancer screening Combined sys
[2022-04-03] MEDS: FUROSEMIDE INJ 40 MG/4 ML VIAL IV PUSH (17:15)
[2022-04-03 18:54] LABS: Appearance Urine Clear (Clear); Bilirubin Urine Negative (Negative); Blood Urine Negative (Negative); Color Urine Yellow (Yellow); Glucose Urine UA 3+ mg/dL (Negative); Ketones Urine Negative (Negative); Leukocyte Esterase Ur Negative LEU/UL (Negative); Nitrate Urine Negative (Negative); Protein Urine Negative (Negative); Urobilinogen Urine 0.2 mg/dL (<2.0); pH Urine 5.5 (5.0-9.0)
[2022-04-03 19:06] LABS: RBC Urine 0-2 /hpf (0-2)
[2022-04-03 19:07] LABS: Add Urine Microscopic? YES
[2022-04-03 19:46] VITALS: BP 130/78; PULSE 72; RESP 16; O2SAT 98
== END 2022-04-03 19:48 | disposition home or self-care (01) ==
PROVIDERS: Emergency Provider Emergency Medicine; PCP Family Medicine
DX: G47.10 Hypersomnia, unspecified (principal); I50.40 Unspecified combined systolic (congestive) and diastolic (congestive) heart failure; E78.5 Hyperlipidemia, unspecified; I11.0 Hypertensive heart disease with heart failure; E11.9 Type 2 diabetes mellitus without complications; I25.5 Ischemic cardiomyopathy; D64.9 Anemia, unspecified; I25.10 Atherosclerotic heart disease of native coronary artery without angina pectoris; I69.954 Hemiplegia and hemiparesis following unspecified cerebrovascular disease affecting left non-dominant side; I25.2 Old myocardial infarction; E03.9 Hypothyroidism, unspecified; N40.0 Benign prostatic hyperplasia without lower urinary tract symptoms; M10.9 Gout, unspecified; Z95.1 Presence of aortocoronary bypass graft; Z79.01 Long term (current) use of anticoagulants; Z79.4 Long term (current) use of insulin; Z79.82 Long term (current) use of aspirin; Z87.891 Personal history of nicotine dependence; I45.9 Conduction disorder, unspecified; R94.31 Abnormal electrocardiogram [ECG] [EKG]; I51.7 Cardiomegaly
CPT/HCPCS: 36415; 70450; 71045; 80053; 81001; 83735; 83880; 84484; 85025; 93005; 96374; 99283; J1940

== ENCOUNTER 2022-05-24 09:36 | Outpatient (CLI) | payer MEDICAID, SELFPAY ==
--- NOTE | ~2022-05-24 | XR_ITS ---
EXAMINATION: XR chest PICC line DATE: 05/24/2022 11:08 INDICATION: PICC line placement TECHNIQUE: frontal view of the chest was obtained. COMPARISON: Chest radiograph dated 04/03/2022 FINDINGS: Right upper extremity peripherally inserted central venous catheter (PICC) tip at the superior cavoa trial junction. Approximately 3.5 x 2.3 cm masslike opacity at the left lung base. Small left pleural effusion. Remainder of the lungs are clear. Lateral most aspect of the right mid to lower lung inclu ding the costophrenic angle is excluded from the [id number]. No pulmonary edema or pneumothorax. T he cardiomediastinal silhouette is within normal limits for AP technique. Median sternotomy wires and mediastinal surgical clips are seen, likely from prior coronary artery bypass grafting. IMPRESSION: 1. Right PICC line tip at the superior cavoatrial junction. 2. Indeterminate 3.5 x 2.3 cm masslike opacity left lung base which could represent pneumonia, malign peri or round atelectasis. Recommend further evaluation with chest CT, preferably with contrast. 3. Small left pleural effusion. Reviewed, dictated and finalized at location A. IMPRESSION: 1. Right PICC line tip at the superior cavoatrial junction. 2. Indeterminate 3.5 x 2.3 cm masslike opacity left lung base which could repre sent pneumonia, malignancy or round atelectasis. Recommend further evaluation w ith chest CT, preferably with contrast. 3. Small left pleural effusion.
[2022-05-24 10:00] VITALS: BMI 30.8
[2022-05-24 10:55] VITALS: BP 109/65; PULSE 75; RESP 14; TEMP 37.2; O2SAT 93
--- NOTE | 2022-05-24 13:37 | PC.NURSE ---
0950 Patient arrived per w/c for o/p picc line insertion. Patient A and O x3.
--- NOTE | 2022-05-24 13:39 | PC.NURSE ---
1115 Patient discharged per w/c with picc insertion information handed to transport personnel. No complaints voiced from patient.
== END 2022-05-24 09:37 | disposition home or self-care (01) ==
PROVIDERS: PCP Family Medicine; Visit Provider Family Medicine
DX: A49.02 Methicillin resistant Staphylococcus aureus infection, unspecified site (principal); J90 Pleural effusion, not elsewhere classified
CPT/HCPCS: 36569; C1751

== ENCOUNTER 2022-06-07 14:43 | Outpatient (CLI) | payer MEDICAID, SELFPAY ==
--- NOTE | ~2022-06-07 | CT_ITS ---
EXAMINATION:CT diagnostic chest w con DATE: 06/07/2022 15:40 INDICATION: Chest mass. TECHNIQUE: Computed tomography (CT) of the chest was performed with 75 mL Omnipaque 350 intravenous c ontrast. Automated exposure control and iterative reconstruction technique were employed. The dose-le ngth product (DLP) was 836.12 mGy-cm. COMPARISON: Chest CT 05/01/2019, chest single view 05/24/2022, 02/03/2022 FINDINGS: There is mild emphysema. There is elevation of left hemidiaphragm. There is a small left pl eural effusion with pleural thickening. There are airspace opacities in left lower lobe abutting the pleura, consistent with rounded atelectasis. Calcified left lung nodules are consistent with old and calcified left hilar lymph nodes are consistent with old granulomatous disease. The heart size is nor mal. There are coronary artery calcifications. There are changes of coronary artery bypass grafting. Calcifications in the spleen are consistent with old granulomatous disease. There is mild chronic ant erior wedging of multiple thoracic vertebral bodies. There is moderate thoracic spondylosis. IMPRESSION: 1. Chronic small left pleural effusion. 2. Chronic airspace opacities in left lung lower lobe abutting the pleura, consistent with rounded at electasis. 3. Mild emphysema. Reviewed, dictated and finalized at location A. IMPRESSION: 1. Chronic small left pleural effusion. 2. Chronic airspace opacities in left lung lower lobe abutting the pleura, cons istent with rounded atelectasis. 3. Mild emphysema.
[2022-06-07 15:27] LABS: Estimated Glomerular Filt Rate 36
== END 2022-06-07 14:44 | disposition home or self-care (01) ==
LOC: ANHIMG 14:51
PROVIDERS: PCP Family Medicine; Visit Provider Family Medicine
DX: J43.9 Emphysema, unspecified (principal); R91.8 Other nonspecific abnormal finding of lung field; J90 Pleural effusion, not elsewhere classified
CPT/HCPCS: 71260; Q9967

== ENCOUNTER 2022-06-09 08:03 | Inpatient (IN) | payer MEDICARE, MEDICAID, SELFPAY ==
[2022-06-09] VITALS (8 sets, daily range): BP systolic 122–151; BP diastolic 65–97; PULSE 81–87; RESP 16–18; TEMP 36.1–36.9; O2SAT 94–99
--- NOTE | ~2022-06-09 | XR_ITS ---
XR chest 1V portable 06/09/2022 10:09 Indication: Check placement of PICC line Procedure: AP portable chest Comparison: Comparison to multiple prior studies sequentially, with oldest reviewed study dated 11/2021. Findings: Right subclavian PICC line tip in the SVC. Left basilar airspace consolidation. Small left pleural effusion. Heart size normal. No pneumothorax or edema. Impression: 1: Left basilar airspace consolidation which may represent atelectasis or pneumonia. Reviewed, dictated and finalized at location A. Impression: 1: Left basilar airspace consolidation which may represent atelectasis or pneum onia.
--- NOTE | ~2022-06-09 | XR_ITS ---
EXAMINATION: XR foot LT min 3V DATE: 06/09/2022 08:32 INDICATION: Left foot wound. TECHNIQUE: 5 views of left foot were obtained. COMPARISON: Left ankle radiographs 12/15/2014 FINDINGS: Bone alignment is normal. No fracture. 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 There are erosions of c alcaneal tuberosity, consistent with osteomyelitis. There is soft tissue gas in the heel of the foot. IMPRESSION: 1. Osteomyelitis involving calcaneal tuberosity. Reviewed, dictated and finalized at location A.
--- NOTE | 2022-06-09 08:16 | ED.GENADULT ---
HPI - General Adult General Chief complaint: Wound/Laceration Stated complaint: unknown Time Seen by Provider: 06/09/22 08:05 Source: RN notes reviewed History of Present Illness HPI narrative: Patient presents emergency room from home for left heel wound. 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 and was just on vancomycin with last dose on June 05 denies any fevers or chills numbness or tingling in the extremities or any other symptoms of concern he states he does have aching in that leg secondary to the infection Related Data Home Medications Medication Instructions Recorded Confirmed acetaminophen 325 mg tablet 650 mg PO Q6H PRN Mild Pain (Scale 03/30/21 01/18/22 (Tylenol) Score 1-4) allopurinol 300 mg tablet 300 mg PO DAILY 03/30/21 01/18/22 aspirin 81 mg tablet,delayed 81 mg PO DAILY 03/30/21 01/18/22 release atorvastatin 40 mg tablet 40 mg PO HS 03/30/21 01/18/22 baclofen 5 mg tablet 5 mg PO BIDPC PRN Pain 03/30/21 01/18/22 biotin 5,000 mcg disintegrating 5,000 mcg PO DAILY 03/30/21 01/18/22 tablet bisacodyl 10 mg rectal suppository 10 mg RECTAL DAILY PRN Constipation 03/30/21 01/18/22 carvedilol 6.25 mg tablet 6.25 mg PO DAILY 03/30/21 01/18/22 cetirizine 10 mg tablet 10 mg PO DAILY 03/30/21 01/18/22 docusate sodium 100 mg capsule 100 mg PO DAILY PRN Constipation 03/30/21 01/18/22 finasteride 5 mg tablet 5 mg PO DAILY 03/30/21 01/18/22 insulin lispro 100 unit/mL 3 unit subcut AC 03/30/21 01/18/22 subcutaneous pen levothyroxine 137 mcg tablet 137 mcg PO QAM 03/30/21 01/18/22 pantoprazole 40 mg tablet,delayed 40 mg PO DAILY 03/30/21 01/18/22 release ropinirole 1 mg tablet 1 mg PO HS 03/30/21 01/18/22 tamsulosin 0.4 mg capsule 0.8 mg PO HS 03/30/21 01/18/22 apixaban 5 mg tablet (Eliquis) 5 mg PO BID 06/01/21 01/18/22 ipratropium 0.5 mg-albuterol 3 mg 3 ml inhalation Q6H PRN Shortness 06/01/21 01/18/22 (2.5 mg base)/3 mL nebulization Of Breath soln metolazone 5 mg tablet 5 mg PO DAILY 06/01/21 01/18/22 Complete Multivitamin-Mineral 1 cap PO DAILY 01/18/22 01/18/22 Fleet Enema 1 applic RECTAL PRN PRN 01/18/22 01/18/22 Constipation ascorbic acid (vitamin C) 500 mg 500 mg PO BID 01/18/22 01/18/22 capsule duloxetine 60 mg capsule,delayed 60 mg PO DAILY 01/18/22 01/18/22 release furosemide 80 mg tablet 80 mg PO DAILY 01/18/22 01/18/22 insulin glargine 100 unit/mL (3 30 unit subcut HS 01/18/22 01/18/22 mL) subcutaneous pen (Lantus Solostar U-100 Insulin) loperamide 2 mg capsule 2 mg PO PRN PRN Diarrhea 01/18/22 01/18/22 magnesium citrate 296 ml PO DAILY PRN Constipation 01/18/22 01/18/22 magnesium hydroxide 400 mg/5 mL 30 ml PO HS PRN Constipation 01/18/22 01/18/22 oral suspension (Milk of Magnesia) montelukast 10 mg tablet 10 mg PO DAILY 01/18/22 01/18/22 polyethylene glycol 3350 17 gram 17 g PO QAM 01/18/22 01/18/22 oral powder packet (Miralax) primidone 50 mg tablet 100 mg PO DAILY 01/18/22 01/18/22 Allergies Allergy/AdvReac Type Severity Reaction Status Date / Time No Known Allergies Allergy Unknown Verified 06/09/22 08:20 Review of Systems Review of Systems: Gen.: Denies fevers or chills ENT: Denies congestion Respiratory: Denies shortness of breath or cough CV: Denies chest pain or palpitations GI: Denies abdominal pain nausea, emesis or diarrhea Musculoskeletal: Denies back pain or muscle pain Neuro: Denies numbness, tingling, weakness or focal weakness Skin: See HPI Except as documented, all other systems reviewed and negative [facility] Past Medical History Medical History Benign prostatic hyperplasia Chronic anemia Colon cancer screening Combined systolic and diastolic congestive heart failure Coronary artery disease Status post three-vessel bypass and left ventricular aneurysm repair in
[2022-06-09 08:51] LABS: Basophils Absolute Auto 0.1 K/mm3 (0.0-0.1); Basophils Percent Auto 0.8 % (0.2-1.2); Eosinophils Absolute Auto 0.3 K/mm3 (0-0.3); Eosinophils Percent Auto 1.7 % (0-4.4); Hematocrit 37.8 % (42.0-52.0); Hemoglobin 11.7 g/dL (14.0-18.0); Immature Granulocyte Absolute 0.55 K/mm3 (0.00-0.031); Immature Granulocyte Percent A 3.5 % (0-0.5); Lymphocytes Absolute Auto 1.33 K/mm3 (0.9-3.2); Lymphocytes Percent Auto 8.5 % (18.3-44.2); Mean Corpuscular Hemoglobin 29.5 pg (26-34); Mean Corpuscular Volume 95.5 fl (80-100); Mean Platelet Volume 10.6 fl (7.4-10.4); Monocytes Absolute Auto 1.2 K/mm3 (0.1-0.6); Monocytes Percent Auto 7.4 % (2.6-8.5); Neutrophils Absolute Auto 12.2 K/mm3 (1.3-6.7); Neutrophils Percent Auto 78.1 % (45.5-73.1); Platelet Count Result 211 k/mm3 (150-375); Red Blood Count 3.96 M/mm3 (4.6-6.20); Red Cell Distribution Width 15.7 % (11.5-14.5); White Blood Count 15.6 K/mm3 (4.5-10.0)
[2022-06-09 09:02] LABS: Alanine Aminotransferase 25 U/L (6-50); Albumin Level 3.8 g/dL (3.5-5.1); Alkaline Phosphatase 161 U/L (38-126); Anion Gap 10 mmol/L (8-16); Aspartate Amino Transferase 36 U/L (17-59); Bilirubin,Total 0.4 mg/dL (0.2-1.3); Blood Urea Nitrogen 50 mg/dL (9-20); Calcium 8.5 mg/dL (8.4-10.2); Carbon Dioxide 27 mmol/L (22-30); Chloride 102 mmol/L (98-107); Estimated CRCL calculation 54 ml/min; Estimated Glomerular Filt Rate 41; Glucose 141 mg/dL (65-110); Potassium 4.3 mmol/L (3.4-5.0); Sodium 139 mmol/L (137-145)
[2022-06-09 09:37] LABS: SARS-CoV-2 RNA PCR Negative
--- NOTE | 2022-06-09 12:08 | PM.IMHP ---
H&P: HPI History of Present Illness Date/Time: 06/09/22 12:08 Chief Complaint: foot wound Narrative: 60-year-old male with coronary artery disease status post CABG, CVA, ischemic cardiomyopathy, mixed systolic and diastolic congestive heart failure with most recent measured EF of 31%, hypertension, insulin-dependent diabetes, and several other comorbidities who presented to the emergency department earlier today via EMS from [facility] for a L heel wound. Pt has reportedly been dealing with a wound to his L heel for >1 month. He had a PICC line placed last week and was supposed to be getting Vancomycin, however he states due to senior care staffing shortages he has only been getting it every few days. Apparently his nurse today noticed the wound looked worse which prompted the visit to the ED today. He admits to nausea and decreased appetite but denies fevers, chills. He had one episode of emesis yesterday. He has muscle cramps in that leg which have been ongoing for quite some time. Also admits to cough which has been present for quite some time but became productive w/ green sputum 1-2 weeks ago. ER workup significant for foot XR positive for osteomyelitis. Leukocytosis of 15.6. Pt was started on Vanc and Imipenem in the ED and general surgery consult was placed. Pt admitted as observation status. Review of Systems Review of Systems: General: Denies fevers Eyes: Denies vision changes ENT: Denies sore throat Respiratory: + cough, denies shortness of breath Cardiovascular: Denies chest pain Gastrointestinal: Denies abdominal pain, vomiting, or diarrhea Genitourinary: Denies dysuria Musculoskeletal: Denies back pain, +muscle cramps Neurological: Denies headache or motor weakness Integumentary: Denies rash [facility] Past Medical History Medical History Benign prostatic hyperplasia Chronic anemia Colon cancer screening Combined systolic and diastolic congestive heart failure Coronary artery disease Status post three-vessel bypass and left ventricular aneurysm repair in February 2019 at [facility]. Current use of intermediate anticoagulation Gout History of cerebrovascular accident (~01/2019) Post CABG right parietal infarction with clinical left hemiplegia. Hyperlipidemia Hypertension Hypothyroidism Insulin dependent diabetes mellitus Hemoglobin A1c was 7.7% on 04/19/2021. Ischemic cardiomyopathy Most recent calculated EF was 31%. Myocardial infarction (~01/2019) Late presentation NH found to have severe three-vessel disease, transferred to [facility] for emergent bypass with perioperative ventricular fibrillation arrest. Surgical History Surgical History History of coronary artery bypass graft (~02/2019) Three-vessel bypass and surgical repair of left ventricular aneurysm at [facility]. Family History Family History Mother Patient's mother is Hypertension Father Patient's father is Malignant neoplasm of prostate Social History Social History Social History: Surrogate decision maker: Josie Ann, . Code status: Full code. Smoking packs per day: 1 Smoking cigarettes per day: 20.0 Years smoked: 20 Smoking pack-years: 20.00 Smoking status: Former smoker Tobacco type: cigarettes Second hand tobacco smoke exposure: No Smoking end date: 11/19/08 Alcohol intake: former Substance use: never Substance use type: does not use Additional living arrangements comments: Resides at [facility]. His lives in [place]. They have 2 grown children. 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 Gender identity (if verbalized by the patien
--- NOTE | 2022-06-09 12:47 | PC.NURSE ---
This patient, Bayron Ann, was admitted to 2 Medical Room 256-. Patient/family oriented to hospital policies and general routines including ID bracelet, bed and alarms, visiting hours, pain management, procedures, bathroom and other care routines, personal items, smoking policy, room service/diet, and visiting hours. Information on how to activate the Rapid Response Team has been discussed. Patient/Family are encouraged to report perceived risks to care and to ask questions if they do not understand what they are told or what they should do.
[2022-06-09] MEDS: CENTRAL LINE FLUSH 10 ML IV PUSH ×2 (13:12→22:10)
--- NOTE | 2022-06-09 14:55 | PM.CNGS ---
Assessment and Plan Assessment and plan (1) Decubitus ulcer, heel, left, unstageable: Code(s): L89.620 - Pressure ulcer of left heel, unstageable Status: Acute Assessment and Plan: patient has an unstageable infected left heel ulcer with signs of osteomyelitis of the calcaneus on the foot x-ray. The ulcer will likely require surgical debridement to treat the infection. Depending on how deep the bone infection is, he might ultimately need amputation. Patient voiced his concerns with amputation and states he would rather I then proceed with amputation. After surgical debridement, I will have a better idea of ability to treat this with local wound care and/or long-term IV antibiotics. Discussed with patient that with wound care this still can take several months to years for the wound to completely heal. He will need to limit pressure on this part of his foot to allow for adequate blood flow and healing. (2) Acute osteomyelitis of left foot: Code(s): M86.172 - Other acute osteomyelitis, left ankle and foot Status: Acute (3) Insulin dependent diabetes mellitus: Status: Chronic (4) Coronary artery disease: Code(s): I25.10 - Atherosclerotic heart disease of i[place]qu[place] coronary artery without angina pectoris Status: Acute (5) Combined systolic and diastolic congestive heart failure: Code(s): I50.40 - Unspecified combined systolic (congestive) and diastolic (congestive) heart failure Status: Acute (6) CVA (cerebrovascular accident): Qualifiers: CVA mechanism: unspecified Qualified Code(s): I63.9 - Cerebral infarction, unspecified Code(s): I63.9 - Cerebral infarction, unspecified Status: Chronic History of Present Illness Consult details Consult date: 06/09/22 Reason for consult: wound care Requesting physician: Himanshu Cheng DO Narrative: This is a 61-year-old man who I am asked to see for a left heel wound. He presented to the emergency department today from his residential facility with worsening problems with a left heel wound. This [facility] with IV antibiotics, but patient's wound continued to progress. He is not ambulatory and states that he wears a shoe and has his leg propped up in his wheelchair for long periods of time. He has some pain in the area. He denies fevers. He denies any history of vascular procedures to his leg. He does have a prior history of coronary artery bypass graft. He is also diabetic and on insulin and oral hypoglycemics. Review of Systems Review of Systems: All systems reviewed & are unremarkable except as noted in HPI and below Constitutional: Constitutional: Denies chills and Denies fever(s) Eyes: Eyes: Denies change in vision ENT: Denies hearing loss, Denies neck pain and Denies sore throat Cardiovascular: Cardiovascular: Denies chest pain and Denies dyspnea Respiratory: Respiratory: Denies cough, Denies dyspnea and Denies wheezing Genitourinary: Genitourinary: Denies hematuria and Denies dysuria Musculoskeletal: Musculoskeletal: Denies arthralgias, Denies joint swelling and Denies neck pain Allergic/Immunologic: Allergic/Immunologic: Denies wheezing [facility] Past Medical History Medical History Benign prostatic hyperplasia Chronic anemia Colon cancer screening Combined systolic and diastolic congestive heart failure Coronary artery disease Status post three-vessel bypass and left ventricular aneurysm repair in February 2019 at [facility]. 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 Hyperlipidemia Hypertension Hypothyroidism Insulin dependent diabetes mellitus Hemoglobin A1c was 7.7% on 04/19/2021. Ischemic cardiomyopathy Most recent calculated EF was 31%. Myocardial infarction (~
[2022-06-09] MEDS: traMADol HCL (*CRX) 50 MG TABLET 100 MG PO (16:33)
[2022-06-09 16:54] LABS: Glucose Point of Care 120 mg/dl (65-105)
[2022-06-09] MEDS: BACLOFEN 5 MG TABLET PO (17:06)
[2022-06-09] MEDS: ASCORBIC ACID 500 MG TABLET PO (17:06)
[2022-06-09] MEDS: PREGABALIN (*CRX) 50 MG CAPSULE PO (17:06)
[2022-06-09] MEDS: SACCHAROMYCES BOULARDII 250 MG CAPSULE PO (17:07)
[2022-06-09] MEDS: ATORVASTATIN 40 MG TABLET PO (20:04)
[2022-06-09] MEDS: APIXABAN 5 MG TABLET PO (20:04)
[2022-06-09] MEDS: LATANOPROST 0.005% OP SOLN 2.5 ML BTL 1 DROP EACH EYE (20:04)
[2022-06-09] MEDS: rOPINIRole HCL 1 MG TABLET 3 MG PO (20:05)
[2022-06-09] MEDS: TAMSULOSIN HCL 0.4 MG CAPSULE 0.8 MG PO (20:05)
[2022-06-10] VITALS (10 sets, daily range): BP systolic 109–148; BP diastolic 70–81; PULSE 77–97; RESP 12–20; TEMP 36.2–36.8; O2SAT 96–100
[2022-06-10 05:15] LABS: Basophils Absolute Auto 0.1 K/mm3 (0.0-0.1); Basophils Percent Auto 0.8 % (0.2-1.2); Eosinophils Absolute Auto 0.2 K/mm3 (0-0.3); Hematocrit 38.1 % (42.0-52.0); Hemoglobin 11.9 g/dL (14.0-18.0); Immature Granulocyte Absolute 0.39 K/mm3 (0.00-0.031); Immature Granulocyte Percent A 3.2 % (0-0.5); Lymphocytes Absolute Auto 1.09 K/mm3 (0.9-3.2); Lymphocytes Percent Auto 8.9 % (18.3-44.2); Mean Corpuscular HGB Conc 31.2 g/dl (32-36); Mean Corpuscular Hemoglobin 29.9 pg (26-34); Mean Corpuscular Volume 95.7 fl (80-100); Mean Platelet Volume 10.7 fl (7.4-10.4); Monocytes Absolute Auto 0.9 K/mm3 (0.1-0.6); Monocytes Percent Auto 7.4 % (2.6-8.5); Neutrophils Absolute Auto 9.5 K/mm3 (1.3-6.7); Neutrophils Percent Auto 77.7 % (45.5-73.1); Platelet Count Result 202 k/mm3 (150-375); Red Blood Count 3.98 M/mm3 (4.6-6.20); Red Cell Distribution Width 15.8 % (11.5-14.5); White Blood Count 12.2 K/mm3 (4.5-10.0)
[2022-06-10] MEDS: CENTRAL LINE FLUSH 10 ML IV PUSH ×3 (06:04→21:25)
--- NOTE | 2022-06-10 07:44 | WPDANESEPPF ---
Anes - Initial Pre Proc Eval Procedure: Operation Date: 06/10/22 09:00 Proposed Procedures p Debridement Left Heel Ulcer - Ethan Fu DO Date/Time: 06/10/22 07:44 Surgeon: Loreta Weinstein PA-C Pre Op Diagnosis: osteomyelutis left heel left foot cellulitis Patient Data Age: 61 Gender: M Height: 1.91 m Weight: 111 kg Last Vital Signs Temp 36.8 C 06/10/22 04:14 Pulse 80 06/10/22 04:14 Resp 16 06/10/22 04:14 BP 143/77 H 06/10/22 04:14 Pulse Ox 97 06/10/22 04:14 O2 Del Method Room Air 06/09/22 22:46 Allergies Allergy/AdvReac Type Severity Reaction Status Date / Time No Known Allergies Allergy Unknown Verified 06/09/22 08:20 Home Medications Medication Instructions Recorded Confirmed Type allopurinol 300 mg tablet 300 mg PO DAILY 03/30/21 06/09/22 History aspirin 81 mg tablet,delayed 81 mg PO DAILY 03/30/21 06/09/22 History release atorvastatin 40 mg tablet 40 mg PO HS 03/30/21 06/09/22 History biotin 5,000 mcg disintegrating 5,000 mcg PO DAILY 03/30/21 06/09/22 History tablet bisacodyl 10 mg rectal suppository 10 mg RECTAL DAILY PRN Constipation 03/30/21 06/09/22 History carvedilol 6.25 mg tablet 6.25 mg PO DAILY 03/30/21 06/09/22 History cetirizine 10 mg tablet 10 mg PO DAILY 03/30/21 06/09/22 History docusate sodium 100 mg capsule 100 mg PO DAILY PRN Constipation 03/30/21 06/09/22 History finasteride 5 mg tablet 5 mg PO DAILY 03/30/21 06/09/22 History insulin lispro 100 unit/mL 3 unit subcut AC 03/30/21 06/09/22 History subcutaneous pen levothyroxine 137 mcg tablet 137 mcg PO QAM 03/30/21 06/09/22 History pantoprazole 40 mg tablet,delayed 40 mg PO DAILY 03/30/21 06/09/22 History release ropinirole 1 mg tablet 3 mg PO HS 03/30/21 06/09/22 History tamsulosin 0.4 mg capsule 0.8 mg PO HS 03/30/21 06/09/22 History amlodipine 2.5 mg tablet 2.5 mg PO DAILY #30 tabs 04/03/21 06/09/22 Rx melatonin 5 mg tablet 5 mg PO HS PRN insomina #30 tabs 04/03/21 06/09/22 Rx lisinopril 2.5 mg tablet 2.5 mg PO QAM #60 tabs 04/24/21 06/09/22 Rx apixaban 5 mg tablet (Eliquis) 5 mg PO BID 06/01/21 06/09/22 History metolazone 5 mg tablet 5 mg PO DAILY 06/01/21 06/09/22 History magnesium oxide 400 mg (241.3 mg 400 mg PO DAILY 7 days #7 tabs 06/05/21 06/09/22 Rx magnesium) tablet diclofenac sodium 1 % topical gel 2 g topical Q6H PRN mild pain to 11/21/21 06/09/22 Rx hips/legs #100 grams fluticasone propionate 50 1 spray intranasal DAILY #16 grams 11/21/21 06/09/22 Rx mcg/actuation nasal spray,suspension ascorbic acid (vitamin C) 500 mg 500 mg PO BID 01/18/22 06/09/22 History capsule duloxetine 60 mg capsule,delayed 60 mg PO DAILY 01/18/22 06/09/22 History release furosemide 80 mg tablet 80 mg PO DAILY 01/18/22 06/09/22 History loperamide 2 mg capsule 2 mg PO PRN PRN Diarrhea 01/18/22 06/09/22 History magnesium hydroxide 400 mg/5 mL 30 ml PO HS PRN Constipation 01/18/22 06/09/22 History oral suspension (Milk of Magnesia) montelukast 10 mg tablet 10 mg PO DAILY 01/18/22 06/09/22 History polyethylene glycol 3350 17 gram 17 g PO QAM 01/18/22 06/09/22 History oral powder packet (Miralax) primidone 50 mg tablet 100 mg PO DAILY 01/18/22 06/09/22 History tramadol 50 mg tablet 100 mg PO Q8H PRN Pain #100 tabs 04/19/22 06/09/22 Rx Multivitamin-Minerals 1 tab-cap PO DAILY 06/09/22 06/09/22 History Saccharomyces boulardii 250 mg 250 mg PO BID 06/09/22 06/09/22 History capsule acetaminophen 500 mg tablet 1,000 mg PO Q8H PRN Pain 06/09/22 06/09/22 History baclofen 5 mg tablet 5 mg PO TID 06/09/22 06/09/22 History dulaglutide 0.75 mg/0.5 mL 0.75 mg subcut WEEKLY 06/09/22 06/09/22 History subcutaneous pen injector (Trulicity) empagliflozin 25 mg tablet 25 mg PO DAILY 06/09/22 06/09/22 History (Jardiance) ferrous gluconate 324 mg (38 mg 324 mg PO DAILY 06/09/22 06/09/22 History iron) tablet insulin glargine-yfgn 100 unit/mL 55 unit subcut HS 06/09/22 06/09/22 Hi
[2022-06-10 07:55] LABS: Glucose Point of Care 190 mg/dl (65-105)
--- NOTE | 2022-06-10 08:30 | WPDHPUPDATE1 ---
History and Physical Update Update Date/Time: 06/10/22 08:30 History and Physical has been reviewed, including an updated exam of the patient. There are NO changes in the patient's condition. Risks, benefits, and alternatives have been discussed and questions answered. Patient agrees to proceed with procedure.
[2022-06-10] MEDS: carvediloL 6.25 MG TABLET PO (09:00)
--- NOTE | 2022-06-10 09:20 | PM.IMPN ---
Progress Note: A&P Assessment and Plan (1) Acute osteomyelitis of left foot: Code(s): M86.172 - Other acute osteomyelitis, left ankle and foot Status: Acute Assessment and Plan: -noted on foot XR -started on Vanc and Imipenem (had reportedly been on Vanc already started last week but only got a couple of doses, apparently missed several days in a row because of alf shortages? Per patient report to previous provider, unclear if this is accurate or not) -general surgery consulted and plan for the OR today -blood cx NGTD, wound cx pending -WBC improving and pt has been afebrile. No systemic infection suspected at this time. (2) Diabetes mellitus: Code(s): E11.9 - Type 2 diabetes mellitus without complications Status: Acute Assessment and Plan: Last glucose 190 -Pt takes 55u of glargine at home as well as trulicity and jardiance -Will continue jardiance for tomorrow morning (pt NPO this morning for a procedure) -Will start lantus at 40u HS and increase depending on his trends. Continue SSI -Continue AccuChecks AC/HS and hypoglycemia protocol (3) Community acquired pneumonia: Code(s): J18.9 - Pneumonia, unspecified organism Status: Acute Assessment and Plan: -noted on CXR, pt symptomatic -being tx for osteo w/ Vanc and Imipenem which will also cover bacterial PNA -COVID negative (4) Hypertension: Qualifiers: Hypertension type: primary hypertension Qualified Code(s): I10 - Essential (primary) hypertension Code(s): I10 - Essential (primary) hypertension Status: Chronic Assessment and Plan: Last bp 143/77 -Continue amlodipine, carvedilol, lasix, and lisinopril (5) Chronic anticoagulation: Code(s): Z79.01 - 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 gifford about this (6) History of CVA (cerebrovascular accident): Code(s): Z86.73 - Personal history of transient ischemic attack (TIA), and cerebral infarction without residual deficits Status: Acute Assessment and Plan: With left sided weakness -continue aspirin and statin therapy (7) Chronic systolic (congestive) heart failure: Code(s): I50.22 - Chronic systolic (congestive) heart failure Status: Acute Assessment and Plan: Hx of HFrEF down to 31% -Continue lisinopril, metoprolol, aspirin, and lasix -Pt have IV fluids during this augie-operative time but would d/c them once he is eating and drinking -monitor fluid statis Time Spent With Patient Time with patient: 25 - 35 minutes Subjective Date/time seen: 06/10/22 09:20 Interval history: Pt is a 61-year-old male here for osteomyelitis. Patient was seen today and states he is doing okay. He denies foot pain, fevers, chills, chest pain, shortness of breath, diarrhea or constipation. He is about to go down to surgery and has no questions or concerns at this time. Review of Systems Review of Systems: All systems reviewed & are unremarkable except as noted in HPI and below Exam Narrative: General: Well developed well nourished patient in NAD HEENT: normocephalic Neck: supple Neuro: Alert and oriented CV:RRR No murmurs Resp:CTA, no crackles, rhonchi or wheezing Abd: Soft, non distended. No pain to palpation. Positive bowel sounds Extremities: left foot wrapped with gauze with a foul odor. Foot warm with good color. bandage intact and I did not remove it since pt is heading down for surgery. Please see prior note for wound specifics. Objective Data Vital Signs Vital Signs: Vital Signs - 24 hr 06/09/22 10:19 06/09/22 12:23 06/09/22 14:00 Temperature 97.9 F Pulse Rate 81 84 83 Respiratory Rate 18 18 18 Blood Pressure 131/77 151/97 H 148/82 H Pul
[2022-06-10] MEDS: LIDO 1%/EPINEPHRINE 1:100,000 50 ML VIAL 30 ML INFILTRATE (10:04)
[2022-06-10] MEDS: LACTATED RINGERS 1,000 ML 30 ML IV CONT (10:24)
--- NOTE | 2022-06-10 10:32 | P.OP_ITS ---
Procedure Note - Detailed Date of Procedure 06/10/22 Pre-op Diagnosis Unstageable left heel decubitus ulcer, left foot osteomyelitis Post-op Diagnosis Other (Stage IV left heel decubitus ulcer, left foot osteomyelitis) Procedure Performed Sharp excisional debridement left heel ulcer measuring 7 cm x 7 cm including skin, subcutaneous fat, tendon, and bone Surgeon Ethan Fu, DO Anesthesia MAC and Local (1% lidocaine with epinephrine) Indications This is a 61-year-old man who presented with a decubitus ulcer on his left heel. He is wheelchair-bound and sits with his leg propped up in shoes most of the day. He has a necrotic ulcer on the surface of his left heel and tissue appears soft and necrotic deep to this area. There is some foul smelling drainage around the wound as well. Foot x-rays showed evidence of osteomyelitis involving the left calcaneus. Discussions were made with the patient about treatment options and decision was made to proceed with debridement of left heel wound. Findings Sharp excisional debridement was performed using scissors and scalpel. The necrotic surface of the wound was unroofed and the necrotic tissue deep to this area was sharply debrided. Debridement included skin, subcutaneous fat, tendon, and bone. Bone biopsies were performed to confirm osteomyelitis. Total dimensions of wound measured 7 cm x 7 cm. Wound was debrided back to about 90% healthy appearing tissue. Betadine soaked 2 in Kerlix gauze was then placed within the wound followed by left gauze, ABD pad, and 4 in Kerlix wrap. Description of Procedure Procedure as well as risks, benefits, and alternatives were discussed with the patient. Written consent was obtained and placed in chart prior to procedure. Patient was brought back to surgical suite. He was placed supine on operating table. Time-out was done to confirm patient and procedure. IV sedation was then administered by the anesthesia department. His left foot area was prepped and draped in sterile fashion using Betadine prep. 1% lidocaine with epinephrine was infiltrated locally around the heel ulcer. Sharp excisional debridement was then performed using curved Franklin scissors. The necrotic tissue was debrided down to healthy appearing bleeding tissue. A 10 blade scalpel then also used to further d?bride some of the necrotic tissue. The necrotic appeared to extend all the way down to the calcaneus. Rongeurs were used to take several bone biopsies to send for pathology. Most of the wound bed appeared healthy and viable after adequate debridement. The wound was then irrigated with sterile saline. Hemostasis was achieved with electrocautery. The wound was then packed with Betadine soaked 2 in Kerlix gauze. Fluff gauze, ABD pad, and 4 in Kerlix wrap were applied. The patient was then awakened from anesthesia and transferred to recovery. Estimated Blood Loss -10.0 Urine Output 400 Pathology Yes (Left calcaneus biopsy) Complications No immediate complications Condition Stable Disposition Floor [facility] [place] Billing Surgery - Charge Forward: Surgery Billing
[2022-06-10] MEDS: fentaNYL CITRATE INJ (*CRX) 100 MCG/2 ML VIAL 25 MCG IV PUSH ×4 (10:38→10:49)
[2022-06-10 10:40] LABS: Glucose Point of Care 133 mg/dl (65-105)
[2022-06-10 12:18] LABS: Glucose Point of Care 133 mg/dl (65-105)
[2022-06-10] MEDS: FLUTICASONE PROPIONATE 0.05% NA SPR 16 GM BTL (*BKC) 1 SPRAY NASAL (12:32)
[2022-06-10] MEDS: PANTOPRAZOLE 40 MG TABLET PO (12:33)
[2022-06-10] MEDS: BACLOFEN 5 MG TABLET PO ×3 (12:33→17:13)
[2022-06-10] MEDS: FUROSEMIDE 80 MG TABLET PO (12:33)
[2022-06-10] MEDS: SACCHAROMYCES BOULARDII 250 MG CAPSULE PO ×2 (12:33→17:14)
[2022-06-10] MEDS: ASCORBIC ACID 500 MG TABLET PO ×2 (12:33→17:13)
[2022-06-10] MEDS: FERROUS GLUCONATE 324 MG TABLET PO (12:34)
[2022-06-10] MEDS: allopurinoL 300 MG TABLET PO (12:34)
[2022-06-10] MEDS: FINASTERIDE 5 MG TABLET PO (12:34)
[2022-06-10] MEDS: MONTELUKAST SODIUM 10 MG TABLET PO (12:34)
[2022-06-10] MEDS: MAGNESIUM OXIDE 400 MG TABLET PO (12:34)
[2022-06-10] MEDS: DULoxetine HCL 60 MG CAPSULE.DR PO (12:34)
[2022-06-10] MEDS: metOLazone 5 MG TABLET PO (12:34)
[2022-06-10] MEDS: APIXABAN 5 MG TABLET PO ×2 (12:35→21:24)
[2022-06-10] MEDS: EMPAGLIFLOZIN 25 MG TABLET PO (12:35)
[2022-06-10] MEDS: lisinopriL 2.5 MG TABLET PO (12:35)
[2022-06-10] MEDS: amLODIPine BESYLATE 2.5 MG TABLET PO (12:36)
[2022-06-10] MEDS: PRIMIDONE 50 MG TABLET 100 MG PO (12:36)
[2022-06-10] MEDS: POTASSIUM CHLORIDE 10 MEQ TABLET.ER PO (12:36)
[2022-06-10] MEDS: ASPIRIN 81 MG ENTERIC TABLET PO (12:37)
[2022-06-10 12:50] LABS: Alanine Aminotransferase 20 U/L (6-50); Albumin Level 3.6 g/dL (3.5-5.1); Alkaline Phosphatase 96 U/L (38-126); Anion Gap 10 mmol/L (8-16); Aspartate Amino Transferase 21 U/L (17-59); Bilirubin,Total 0.5 mg/dL (0.2-1.3); Blood Urea Nitrogen 35 mg/dL (9-20); Calcium 8.5 mg/dL (8.4-10.2); Carbon Dioxide 28 mmol/L (22-30); Chloride 101 mmol/L (98-107); Estimated CRCL calculation 76 ml/min; Estimated Glomerular Filt Rate > 60; Glucose 135 mg/dL (65-110); Potassium 4.2 mmol/L (3.4-5.0); Sodium 139 mmol/L (137-145)
[2022-06-10] MEDS: PREGABALIN (*CRX) 50 MG CAPSULE PO ×2 (12:53→17:13)
[2022-06-10] MEDS: THERAPEUTIC MULTIVITAMINS/MINERALS TAB (*BKC) 1 TABLET PO (12:54)
[2022-06-10] MEDS: traMADol HCL (*CRX) 50 MG TABLET 100 MG PO (14:51)
[2022-06-10 17:35] LABS: Glucose Point of Care 153 mg/dl (65-105)
[2022-06-10] MEDS: ATORVASTATIN 40 MG TABLET PO (21:24)
[2022-06-10] MEDS: rOPINIRole HCL 1 MG TABLET 3 MG PO (21:24)
[2022-06-10] MEDS: TAMSULOSIN HCL 0.4 MG CAPSULE 0.8 MG PO (21:24)
[2022-06-10] MEDS: LATANOPROST 0.005% OP SOLN 2.5 ML BTL 1 DROP EACH EYE (21:24)
[2022-06-10] MEDS: INSULIN GLARGINE (*BKC) 100 UNITS/ML 40 UNITS SUB-Q (21:25)
[2022-06-10 21:55] LABS: Glucose Point of Care 200 mg/dl (65-105)
[2022-06-11] VITALS (8 sets, daily range): BP systolic 100–115; BP diastolic 51–89; PULSE 78–104; RESP 12–20; TEMP 36.1–37.4; O2SAT 94–98
[2022-06-11] MEDS: CENTRAL LINE FLUSH 10 ML IV PUSH ×3 (06:12→21:09)
[2022-06-11] MEDS: LEVOTHYROXINE SODIUM 112 MCG TABLET PO (06:12)
[2022-06-11] MEDS: LEVOTHYROXINE SODIUM 25 MCG TABLET PO (06:12)
[2022-06-11 06:24] LABS: Basophils Absolute Auto 0.1 K/mm3 (0.0-0.1); Basophils Percent Auto 0.6 % (0.2-1.2); Eosinophils Absolute Auto 0.2 K/mm3 (0-0.3); Eosinophils Percent Auto 1.8 % (0-4.4); Hematocrit 38.2 % (42.0-52.0); Hemoglobin 11.9 g/dL (14.0-18.0); Immature Granulocyte Absolute 0.31 K/mm3 (0.00-0.031); Immature Granulocyte Percent A 2.3 % (0-0.5); Lymphocytes Absolute Auto 1.05 K/mm3 (0.9-3.2); Lymphocytes Percent Auto 7.7 % (18.3-44.2); Mean Corpuscular HGB Conc 31.2 g/dl (32-36); Mean Corpuscular Hemoglobin 29.6 pg (26-34); Monocytes Absolute Auto 0.9 K/mm3 (0.1-0.6); Monocytes Percent Auto 6.6 % (2.6-8.5); Neutrophils Absolute Auto 11.1 K/mm3 (1.3-6.7); Platelet Count Result 198 k/mm3 (150-375); Red Blood Count 4.02 M/mm3 (4.6-6.20); Red Cell Distribution Width 15.6 % (11.5-14.5); White Blood Count 13.7 K/mm3 (4.5-10.0)
[2022-06-11 07:22] LABS: Anion Gap 10 mmol/L (8-16); Blood Urea Nitrogen 39 mg/dL (9-20); Calcium 8.7 mg/dL (8.4-10.2); Carbon Dioxide 24 mmol/L (22-30); Chloride 98 mmol/L (98-107); Estimated CRCL calculation 65 ml/min; Estimated Glomerular Filt Rate 51; Glucose 189 mg/dL (65-110); Potassium 3.8 mmol/L (3.4-5.0); Sodium 132 mmol/L (137-145)
[2022-06-11 07:45] LABS: Glucose Point of Care 183 mg/dl (65-105)
[2022-06-11] MEDS: FUROSEMIDE 80 MG TABLET PO (08:44)
[2022-06-11] MEDS: lisinopriL 2.5 MG TABLET PO (08:44)
[2022-06-11] MEDS: POTASSIUM CHLORIDE 10 MEQ TABLET.ER PO (08:44)
[2022-06-11] MEDS: amLODIPine BESYLATE 2.5 MG TABLET PO (08:44)
[2022-06-11] MEDS: THERAPEUTIC MULTIVITAMINS/MINERALS TAB (*BKC) 1 TABLET PO (08:44)
[2022-06-11] MEDS: BACLOFEN 5 MG TABLET PO ×4 (08:44→23:01)
[2022-06-11] MEDS: MAGNESIUM OXIDE 400 MG TABLET PO (08:44)
[2022-06-11] MEDS: PRIMIDONE 50 MG TABLET 100 MG PO (08:45)
[2022-06-11] MEDS: FERROUS GLUCONATE 324 MG TABLET PO (08:45)
[2022-06-11] MEDS: SACCHAROMYCES BOULARDII 250 MG CAPSULE PO ×2 (08:45→17:23)
[2022-06-11] MEDS: ASCORBIC ACID 500 MG TABLET PO ×2 (08:45→17:24)
[2022-06-11] MEDS: DULoxetine HCL 60 MG CAPSULE.DR PO (08:45)
[2022-06-11] MEDS: metOLazone 5 MG TABLET PO (08:45)
[2022-06-11] MEDS: MONTELUKAST SODIUM 10 MG TABLET PO (08:45)
[2022-06-11] MEDS: PANTOPRAZOLE 40 MG TABLET PO (08:45)
[2022-06-11] MEDS: FINASTERIDE 5 MG TABLET PO (08:45)
[2022-06-11] MEDS: APIXABAN 5 MG TABLET PO ×2 (08:46→21:06)
[2022-06-11] MEDS: allopurinoL 300 MG TABLET PO (08:46)
[2022-06-11] MEDS: ASPIRIN 81 MG ENTERIC TABLET PO (08:46)
[2022-06-11] MEDS: EMPAGLIFLOZIN 25 MG TABLET PO (08:46)
[2022-06-11] MEDS: carvediloL 6.25 MG TABLET PO (08:46)
[2022-06-11] MEDS: FLUTICASONE PROPIONATE 0.05% NA SPR 16 GM BTL (*BKC) 1 SPRAY NASAL (08:47)
[2022-06-11] MEDS: PREGABALIN (*CRX) 50 MG CAPSULE PO ×2 (08:50→17:23)
[2022-06-11] MEDS: POVIDONE-IODINE 10% SOLUTION 118 ML BOTTLE TOPICAL (08:50)
--- NOTE | 2022-06-11 10:40 | WPDANESPN ---
Anes - Prog Note Post-Op Date/Time: 06/11/22 10:40 Vital Signs: Last Vital Signs Temp 36.1 C L 06/11/22 09:21 Pulse 80 06/11/22 09:21 Resp 16 06/11/22 09:21 BP 109/68 06/11/22 09:21 Pulse Ox 98 06/11/22 09:21 O2 Del Method Room Air 06/10/22 20:00 O2 Flow Rate 8 06/10/22 10:40 Pain Score (VAS): 0 I/O: Intake & Output 06/10/22 06/11/22 06/11/22 23:59 07:59 15:59 Intake Total 1900 750 360 Output Total 1325 500 Balance 575 250 360 Laboratory Tests 06/11/22 06:09 06/11/22 06:54 06/10/22 06/10/22 06/10/22 10:34 12:13 12:16 WBC RBC Hgb Hct MCV MCH MCHC RDW Plt Count MPV Immature Gran % (Auto) Neut % (Auto) Lymph % (Auto) [place] % (Auto) Eos % (Auto) Baso % (Auto) Lymph # (Auto) [place] # (Auto) Eos # (Auto) Baso # (Auto) Abs Immat Gran (auto) Absolute Neuts (auto) Absolute Nucleated RBC Nucleated RBC % Sodium 139 Potassium 4.2 Chloride 101 Carbon Dioxide 28 Anion Gap 10 BUN 35 H D Creatinine 1.20 Estim Creat Clear Calc 76 Estimated GFR > 60 Glucose 135 H POC Capillary Glucose 133 H 133 H Calcium 8.5 Total Bilirubin 0.5 AST 21 ALT 20 Alkaline Phosphatase 96 Total Protein 8.0 Albumin 3.6 06/10/22 06/10/22 06/11/22 17:29 21:21 06:09 WBC 13.7 H RBC 4.02 L Hgb 11.9 L Hct 38.2 L MCV 95.0 MCH 29.6 MCHC 31.2 L RDW 15.6 H Plt Count 198 MPV 11.0 H Immature Gran % (Auto) 2.3 H Neut % (Auto) 81.0 H Lymph % (Auto) 7.7 L [place] % (Auto) 6.6 Eos % (Auto) 1.8 Baso % (Auto) 0.6 Lymph # (Auto) 1.05 [place] # (Auto) 0.9 H Eos # (Auto) 0.2 Baso # (Auto) 0.1 Abs Immat Gran (auto) 0.31 H Absolute Neuts (auto) 11.1 H Absolute Nucleated RBC 0.0 Nucleated RBC % 0.0 Sodium Potassium Chloride Carbon Dioxide Anion Gap BUN Creatinine Estim Creat Clear Calc Estimated GFR Glucose POC Capillary Glucose 153 H 200 H Calcium Total Bilirubin AST ALT Alkaline Phosphatase Total Protein Albumin 06/11/22 06/11/22 06:54 07:39 WBC RBC Hgb Hct MCV MCH MCHC RDW Plt Count MPV Immature Gran % (Auto) Neut % (Auto) Lymph % (Auto) [place] % (Auto) Eos % (Auto) Baso % (Auto) Lymph # (Auto) [place] # (Auto) Eos # (Auto) Baso # (Auto) Abs Immat Gran (auto) Absolute Neuts (auto) Absolute Nucleated RBC Nucleated RBC % Sodium 132 L Potassium 3.8 Chloride 98 Carbon Dioxide 24 Anion Gap 10 BUN 39 H Creatinine 1.40 H Estim Creat Clear Calc 65 Estimated GFR 51 L Glucose 189 H POC Capillary Glucose 183 H Calcium 8.7 Total Bilirubin AST ALT Alkaline Phosphatase Total Protein Albumin Microbiology 06/09/22 09:06 Foot Left Anaerobic Culture - Preliminary Patient Feedback: Patient satisfied with anesthetic care.
--- NOTE | 2022-06-11 11:21 | PM.IMPN ---
Progress Note: A&P Assessment and Plan (1) Acute osteomyelitis of left foot: Code(s): M86.172 - Other acute osteomyelitis, left ankle and foot Status: Acute Assessment and Plan: - noted on foot XR - continue Vanc and Imipenem (had reportedly been on Vanc already started last week but only got a couple of doses, apparently missed several days in a row because of reported halfway shortages per patient report to previous provider, unclear if this is accurate or not) - appreciate general surgery consultation - underwent sharp excisional debridement of left heel ulcer in the OR on 06/10/2022. Tolerated procedure well - wound culture pending - blood cultures with no growth to date - mild leukocytosis noted today. Continue to monitor. Patient is afebrile. No signs of systemic infection. (2) Diabetes mellitus: Code(s): E11.9 - Type 2 diabetes mellitus without complications Status: Acute Assessment and Plan: blood sugars have been reasonably controlled - continue Accu-Cheks, sliding scale insulin, hypoglycemic protocol - continue Jardiance - increase Lantus to 42 units q.h.s. Home dose is 55 units - check A1c (3) Community acquired pneumonia: Code(s): J18.9 - Pneumonia, unspecified organism Status: Acute Assessment and Plan: suspected however seems unlikely based on clinical picture and imaging. - CXR with left basilar airspace consolidation which may represent atelectasis vs pna. CT of the chest reviewed with findings most consistent with atelectasis - patient remains on broad-spectrum antibiotics for treatment of osteomyelitis. This would cover CAP - COVID negative - provide incentive spirometry (4) Hypertension: Qualifiers: Hypertension type: primary hypertension Qualified Code(s): I10 - Essential (primary) hypertension Code(s): I10 - Essential (primary) hypertension Status: Chronic Assessment and Plan: blood pressure reviewed and has been stable. Last BP 109/68 -Continue amlodipine, carvedilol, lasix, and lisinopril (5) Chronic anticoagulation: Code(s): Z79.01 - [facility] (current) use of anticoagulants Status: Acute Assessment and Plan: Pt on eliquis for many years - secondary to stroke (6) History of CVA (cerebrovascular accident): Code(s): Z86.73 - Personal history of transient ischemic attack (TIA), and cerebral infarction without residual deficits Status: Acute Assessment and Plan: With residual left sided weakness -continue aspirin and statin therapy (7) Chronic systolic (congestive) heart failure: Code(s): I50.22 - Chronic systolic (congestive) heart failure Status: Acute Assessment and Plan: Hx of HFrEF down to 31% - No acute issues - Continue lisinopril, metoprolol, aspirin, and lasix - monitor volume status closely and avoid overhydration (8) Elevated serum creatinine: Code(s): R79.89 - Other specified abnormal findings of blood chemistry Status: Acute Assessment and Plan: Creatinine 1.4 today - Review of prior labs suggest this to be near his baseline - He likely has CKD, though this is not documented in his medical history - Continue to monitor BMP closely Subjective Date/time seen: 06/11/22 11:21 Interval history: Date of service: 06/11/2022 Bayron Ann is a 61-year-old male with a history of BPH, CAD, CHF, CVA, hypertension, hyperlipidemia, type 2 diabetes mellitus who is seen in follow-up for osteomyelitis of the left foot. He underwent excisional debridement yesterday and states he tolerated this procedure well. He has poor sensation in his foot. At this time he has no pain. He denies shortness of breath. denies nausea or vomiting. Tolerating his diet. He states he had a bowel movement yesterday. He denies dysuria. Review of Systems Review of Systems: All syst
[2022-06-11 11:52] LABS: Glucose Point of Care 165 mg/dl (65-105)
--- NOTE | 2022-06-11 13:29 | PM.PNGS ---
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 Will likely need [facility] to treat osteomyelitis. Will assess wound with wound care nurses tomorrow. Discussed with patient that this will take months to heal completely, if not longer. Could result in amputation if unable to heal or infection worsens. (2) Acute osteomyelitis of left foot: Code(s): M86.172 - Other acute osteomyelitis, left ankle and foot Status: Acute (3) Current use of [place] anticoagulation: Code(s): Z79.01 - [facility] (current) use of anticoagulants Status: Acute (4) Insulin dependent diabetes mellitus: Status: Chronic (5) Coronary artery disease: Code(s): I25.10 - Atherosclerotic heart disease of [place] coronary artery without angina pectoris Status: Acute Subjective Subjective Date/Time Seen: 06/11/22 13:29 Interval history: Pain controlled. No fevers. Tolerated dressing change today. Exam Extrem: Other: Dressing dry. Just changed at 10:30 this AM, so I did not take dressing down to look at wound. Objective Data Vital Signs Vital Signs: Vital Signs - 24 hr 06/10/22 15:30 06/10/22 14:00 06/10/22 20:11 Temperature 36.5 C 36.5 C Pulse Rate 86 97 Respiratory Rate 20 16 Blood Pressure 139/74 110/70 Pulse Oximetry 96 96 98 Oxygen Delivery Room Air 06/11/22 01:03 06/10/22 20:00 06/11/22 05:03 Temperature 36.8 C 37.1 C Pulse Rate 84 78 Respiratory Rate 20 16 Blood Pressure 111/68 104/62 Pulse Oximetry 98 98 94 Oxygen Delivery Room Air 06/11/22 08:46 06/11/22 09:21 06/11/22 10:30 Temperature 36.1 C L Pulse Rate 78 80 Respiratory Rate 16 16 Blood Pressure 109/68 Pulse Oximetry 98 98 Oxygen Delivery Room Air Intake/Output Intake/Output: Intake & Output 06/08/22 06/09/22 06/10/22 06/11/22 23:59 23:59 23:59 23:59 Intake Total 1390 3350 1210 Output Total 925 2625 1000 Balance 465 725 210 Meds/Results Medications: Active Medications Generic Name Dose Route Start Last Admin Trade Name Anton PRN Reason Stop Dose Admin Acetaminophen 1,000 mg 06/09/22 15:32 Acetaminophen 500 Mg Tablet PO Q8H PRN Pain 1-3 Albuterol 2.5 mg 06/09/22 15:32 Albuterol Sulfate Neb 2.5 Mg/0.5 Ml Inh INHALATION Q6HRT PRN Shortness Of Breath Allopurinol 300 mg 06/10/22 09:00 06/11/22 08:46 Allopurinol 300 Mg Tablet PO 300 mg DAILY JERRY Administration Amlodipine Besylate 2.5 mg 06/10/22 09:00 06/11/22 08:44 Amlodipine Besylate 2.5 Mg Tablet PO 2.5 mg DAILY JERRY Administration Apixaban 5 mg 06/09/22 21:00 06/11/22 08:46 Apixaban 5 Mg Tablet PO 5 mg Q12HR JERRY Administration Ascorbic Acid 500 mg 06/09/22 17:00 06/11/22 08:45 Ascorbic Acid 500 Mg Tablet PO 500 mg BID JERRY Administration Aspirin 81 mg 06/10/22 09:00 06/11/22 08:46 Aspirin 81 Mg Enteric Tablet PO 81 mg DAILY JERRY Administration Atorvastatin Calcium 40 mg 06/09/22 21:00 06/10/22 21:24 Atorvastatin 40 Mg Tablet PO 40 mg HS JERRY Administration Baclofen 5 mg 06/09/22 17:00 06/11/22 12:29 Baclofen 5 Mg Tablet PO 5 mg TID JERRY Administration Carvedilol 6.25 mg 06/10/22 09:00 06/11/22 08:46 Carvedilol 6.25 Mg Tablet PO 6.25 mg DAILY JERRY Administration Dextrose 12.5 gm 06/09/22 14:20 Dextrose 50% 25 Gm/50 Ml Syringe IV PUSH PRN PRN Hypoglycemia Protocol Docusate Sodium 100 mg 06/09/22 15:32 Docusate Sodium 100 Mg Capsule PO DAILY PRN Constipation Duloxetine HCl 60 mg 06/10/22 09:00 06/11/22 08:45 Duloxetine Hcl 60 Mg Capsule.Dr PO 60 mg DAILY JERRY Administration Empagliflozin 25 mg 06/10/22 09:00 06/11/22 08:46 Empagliflozin 25 Mg Tablet PO 25 mg LEONARDO
[2022-06-11 15:59] LABS: Vancomycin Trough 33.4 ug/mL (10.0-20.0)
[2022-06-11 17:28] LABS: Glucose Point of Care 170 mg/dl (65-105)
[2022-06-11 20:32] LABS: Glucose Point of Care 175 mg/dl (65-105)
[2022-06-11] MEDS: rOPINIRole HCL 1 MG TABLET 3 MG PO (21:06)
[2022-06-11] MEDS: TAMSULOSIN HCL 0.4 MG CAPSULE 0.8 MG PO (21:06)
[2022-06-11] MEDS: ATORVASTATIN 40 MG TABLET PO (21:06)
[2022-06-11] MEDS: INSULIN GLARGINE (*BKC) 100 UNITS/ML 42 UNITS SUB-Q (21:07)
[2022-06-11] MEDS: LATANOPROST 0.005% OP SOLN 2.5 ML BTL 1 DROP EACH EYE (21:07)
[2022-06-11] MEDS: ACETAMINOPHEN 500 MG TABLET 1000 MG PO (21:08)
[2022-06-11] MEDS: MELATONIN 5 MG TABLET PO (23:06)
[2022-06-12] VITALS (7 sets, daily range): BP systolic 103–122; BP diastolic 59–74; PULSE 77–89; RESP 12–20; TEMP 36–36.6; O2SAT 93–97
[2022-06-12] MEDS: traMADol HCL (*CRX) 50 MG TABLET 100 MG PO ×2 (01:43→10:12)
[2022-06-12 05:27] LABS: Hematocrit 37.3 % (42.0-52.0); Hemoglobin 11.7 g/dL (14.0-18.0); Mean Corpuscular HGB Conc 31.4 g/dl (32-36); Mean Corpuscular Hemoglobin 29.3 pg (26-34); Mean Corpuscular Volume 93.3 fl (80-100); Mean Platelet Volume 10.9 fl (7.4-10.4); Platelet Count Result 198 k/mm3 (150-375); Red Cell Distribution Width 15.5 % (11.5-14.5); White Blood Count 14.9 K/mm3 (4.5-10.0)
[2022-06-12] MEDS: CENTRAL LINE FLUSH 10 ML IV PUSH ×3 (05:35→20:13)
[2022-06-12] MEDS: LEVOTHYROXINE SODIUM 25 MCG TABLET PO (05:35)
[2022-06-12 05:36] LABS: Hemoglobin A1C 8.4 % (<5.7)
[2022-06-12] MEDS: LEVOTHYROXINE SODIUM 112 MCG TABLET PO (05:36)
[2022-06-12 05:39] LABS: Anion Gap 9 mmol/L (8-16); Blood Urea Nitrogen 45 mg/dL (9-20); Calcium 8.8 mg/dL (8.4-10.2); Carbon Dioxide 27 mmol/L (22-30); Chloride 97 mmol/L (98-107); Estimated CRCL calculation 61 ml/min; Estimated Glomerular Filt Rate 47; Glucose 154 mg/dL (65-110); Potassium 3.6 mmol/L (3.4-5.0); Sodium 133 mmol/L (137-145)
[2022-06-12 07:45] LABS: Glucose Point of Care 155 mg/dl (65-105)
[2022-06-12] MEDS: lisinopriL 2.5 MG TABLET PO (09:22)
[2022-06-12] MEDS: FERROUS GLUCONATE 324 MG TABLET PO (09:22)
[2022-06-12] MEDS: carvediloL 6.25 MG TABLET PO (09:22)
[2022-06-12] MEDS: FLUTICASONE PROPIONATE 0.05% NA SPR 16 GM BTL (*BKC) 1 SPRAY NASAL ×2 (09:22→20:12)
[2022-06-12] MEDS: APIXABAN 5 MG TABLET PO ×2 (09:22→20:12)
[2022-06-12] MEDS: POTASSIUM CHLORIDE 10 MEQ TABLET.ER PO (09:22)
[2022-06-12] MEDS: THERAPEUTIC MULTIVITAMINS/MINERALS TAB (*BKC) 1 TABLET PO (09:22)
[2022-06-12] MEDS: DULoxetine HCL 60 MG CAPSULE.DR PO (09:23)
[2022-06-12] MEDS: BACLOFEN 5 MG TABLET PO ×3 (09:23→16:22)
[2022-06-12] MEDS: ASCORBIC ACID 500 MG TABLET PO ×2 (09:24→16:23)
[2022-06-12] MEDS: metOLazone 5 MG TABLET PO (09:24)
[2022-06-12] MEDS: FUROSEMIDE 80 MG TABLET PO (09:24)
[2022-06-12] MEDS: allopurinoL 300 MG TABLET PO (09:24)
[2022-06-12] MEDS: MAGNESIUM OXIDE 400 MG TABLET PO (09:24)
[2022-06-12] MEDS: PRIMIDONE 50 MG TABLET 100 MG PO (09:24)
[2022-06-12] MEDS: amLODIPine BESYLATE 2.5 MG TABLET PO (09:24)
[2022-06-12] MEDS: EMPAGLIFLOZIN 25 MG TABLET PO (09:24)
[2022-06-12] MEDS: ASPIRIN 81 MG ENTERIC TABLET PO (09:24)
[2022-06-12] MEDS: SACCHAROMYCES BOULARDII 250 MG CAPSULE PO ×2 (09:24→16:23)
[2022-06-12] MEDS: FINASTERIDE 5 MG TABLET PO (09:24)
[2022-06-12] MEDS: MONTELUKAST SODIUM 10 MG TABLET PO (09:24)
[2022-06-12] MEDS: PANTOPRAZOLE 40 MG TABLET PO (09:25)
[2022-06-12] MEDS: PREGABALIN (*CRX) 50 MG CAPSULE PO ×2 (09:27→16:22)
[2022-06-12 12:21] LABS: Glucose Point of Care 172 mg/dl (65-105)
--- NOTE | 2022-06-12 15:01 | PM.IMPN ---
Progress Note: A&P Assessment and Plan (1) Acute osteomyelitis of left foot: Code(s): M86.172 - Other acute osteomyelitis, left ankle and foot Status: Acute Assessment and Plan: noted on foot XR - continue Vanc and Imipenem (had reportedly been on Vanc already started last week but only got a couple of doses, apparently missed several days in a row because of reported long term shortages per patient report to previous provider, unclear if this is accurate or not) - appreciate general surgery consultation - underwent sharp excisional debridement of left heel ulcer in the OR on 06/10/2022. Tolerated procedure well - wound culture with heavy growth of Providencia rettgeri - discussed with Infectious Disease PharmD. Recommends transition to IV Ceftriaxone 2 g and PO flagyl for anaerobic coverage while awaiting finalized cultures. Will discuss with general surgery regarding duration. Continue Vanc and Imipenem until further surgical recommendations - blood cultures with no growth to date - slight increase in leukocytosis noted today. Continue to monitor. Patient is afebrile (2) Diabetes mellitus: Code(s): E11.9 - Type 2 diabetes mellitus without complications Status: Acute Assessment and Plan: A1c is 8.4. Blood sugars have been reasonably controlled - continue Accu-Cheks, sliding scale insulin, hypoglycemic protocol - continue Jardiance - Lantus to 42 units q.h.s. Home dose is 55 units (3) Community acquired pneumonia: Code(s): J18.9 - Pneumonia, unspecified organism Status: Acute Assessment and Plan: suspected however seems unlikely based on clinical picture and imaging. - CXR with left basilar airspace consolidation which may represent atelectasis vs pna. CT of the chest reviewed with findings most consistent with atelectasis - No treatment required, however patient remains on broad-spectrum antibiotics for treatment of osteomyelitis. This would cover CAP - COVID negative - provide incentive spirometry (4) Hypertension: Qualifiers: Hypertension type: primary hypertension Qualified Code(s): I10 - Essential (primary) hypertension Code(s): I10 - Essential (primary) hypertension Status: Chronic Assessment and Plan: blood pressure reviewed and has been stable. Last BP 117/70 -Continue amlodipine, carvedilol, lasix, and lisinopril (5) Chronic anticoagulation: Code(s): Z79.01 - [facility] (current) use of anticoagulants Status: Acute Assessment and Plan: Pt on eliquis for many years - secondary to stroke (6) History of CVA (cerebrovascular accident): Code(s): Z86.73 - Personal history of transient ischemic attack (TIA), and cerebral infarction without residual deficits Status: Acute Assessment and Plan: With residual left sided weakness -continue aspirin and statin therapy (7) Chronic systolic (congestive) heart failure: Code(s): I50.22 - Chronic systolic (congestive) heart failure Status: Acute Assessment and Plan: Hx of HFrEF down to 31% - No acute issues - Continue lisinopril, metoprolol, aspirin, and lasix - monitor volume status closely (8) Elevated serum creatinine: Code(s): R79.89 - Other specified abnormal findings of blood chemistry Status: Acute Assessment and Plan: Creatinine 1.5 today - Review of prior labs suggest this to be near his baseline - He likely has CKD, though this is not documented in his medical history - Continue to monitor BMP closely - Slight increase in BUN today noted. Continue monitoring Subjective Date/time seen: 06/12/22 15:01 Interval history: Date of service: 06/12/2022 Bayron Ann is a 61-year-old male with a history of BPH, CAD, CHF, CVA, hypertension, hyperlipidemia, type 2 diabetes mellitus who is seen in follow-up for osteomyelitis of the left foot s/p excisional azar
[2022-06-12] MEDS: POVIDONE-IODINE 10% SOLUTION 118 ML BOTTLE TOPICAL (16:23)
--- NOTE | 2022-06-12 17:13 | PC.NURSE ---
On 06/12/22, the Graduate nurse, Philip Quinonez, provided care and completed [employer] documentation on this patient. I have reviewed the student's documentation and agree with the findings.
[2022-06-12 17:27] LABS: Glucose Point of Care 167 mg/dl (65-105)
--- NOTE | 2022-06-12 20:00 | PM.PNGS ---
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 Will likely need intermediate school teacher antibiotics to treat osteomyelitis, possible 6 week course. Might benefit from enzymatic debridement with Santyl dressings to allow for more healing. Will discuss with wound care nurses tomorrow. Hopefully patient will be stable for discharge in the next 1-2 days. (2) Acute osteomyelitis of left foot: Code(s): M86.172 - Other acute osteomyelitis, left ankle and foot Status: Acute (3) Current use of jail anticoagulation: Code(s): Z79.01 - [facility] (current) use of anticoagulants Status: Acute (4) Insulin dependent diabetes mellitus: Status: Chronic (5) Coronary artery disease: Code(s): I25.10 - Atherosclerotic heart disease of [place] coronary artery without angina pectoris Status: Acute Subjective Subjective Date/Time Seen: 06/12/22 20:00 Interval history: Patient doing well. Pain controlled. No fevers. Exam Extrem: Other: Left heel wound has no purulence drainage. Minimal necrotic slough in wound bed. No surrounding erythema. Objective Data Vital Signs Vital Signs: Vital Signs - 24 hr 06/11/22 20:02 06/12/22 00:28 06/12/22 04:41 Temperature 37.4 C 36.6 C 36.5 C Pulse Rate 104 H 89 79 Respiratory Rate 12 12 20 Blood Pressure 115/89 110/69 111/73 Pulse Oximetry 98 95 97 Oxygen Delivery 06/12/22 09:22 06/12/22 10:00 06/12/22 14:00 Temperature 36.0 C L 36.2 C L Pulse Rate 79 77 78 Respiratory Rate 16 16 Blood Pressure 117/70 122/74 Pulse Oximetry 97 97 Oxygen Delivery 06/12/22 19:27 06/12/22 19:46 Temperature 36.1 C L Pulse Rate 77 77 Respiratory Rate 20 20 Blood Pressure 103/59 L Pulse Oximetry 93 93 Oxygen Delivery Room Air Intake/Output Intake/Output: Intake & Output 06/09/22 06/10/22 06/11/22 06/12/22 23:59 23:59 23:59 23:59 Intake Total 1390 3350 2350 1600 Output Total 920 4814 1821 1100 Balance 465 725 525 500 Meds/Results Medications: Active Medications Generic Name Dose Route Start Last Admin Trade Name Freq PRN Reason Stop Dose Admin Acetaminophen 1,000 mg 06/09/22 15:32 06/11/22 21:08 Acetaminophen 500 Mg Tablet PO 1,000 mg Q8H PRN Administration Pain 1-3 Albuterol 2.5 mg 06/09/22 15:32 Albuterol Sulfate Neb 2.5 Mg/0.5 Ml Inh INHALATION Q6HRT PRN Shortness Of Breath Allopurinol 300 mg 06/10/22 09:00 06/12/22 09:24 Allopurinol 300 Mg Tablet PO 300 mg DAILY JERRY Administration Amlodipine Besylate 2.5 mg 06/10/22 09:00 06/12/22 09:24 Amlodipine Besylate 2.5 Mg Tablet PO 2.5 mg DAILY JERRY Administration Apixaban 5 mg 06/09/22 21:00 06/12/22 09:22 Apixaban 5 Mg Tablet PO 5 mg Q12HR JERRY Administration Ascorbic Acid 500 mg 06/09/22 17:00 06/12/22 16:23 Ascorbic Acid 500 Mg Tablet PO 500 mg BID JERRY Administration Aspirin 81 mg 06/10/22 09:00 06/12/22 09:24 Aspirin 81 Mg Enteric Tablet PO 81 mg DAILY JERRY Administration Atorvastatin Calcium 40 mg 06/09/22 21:00 06/11/22 21:06 Atorvastatin 40 Mg Tablet PO 40 mg HS JERRY Administration Baclofen 5 mg 06/09/22 17:00 06/12/22 16:22 Baclofen 5 Mg Tablet PO 5 mg TID JERRY Administration Carvedilol 6.25 mg 06/10/22 09:00 06/12/22 09:22 Carvedilol 6.25 Mg Tablet PO 6.25 mg DAILY JERRY Administration Dextrose 12.5 gm 06/09/22 14:20 Dextrose 50% 25 Gm/50 Ml Syringe IV PUSH PRN PRN Hypoglycemia Protocol Docusate Sodium 100 mg 06/09/22 15:32 Docusate Sodium 100 Mg Capsule PO DAILY PRN Constipation Duloxetine HCl 60 mg 06/10/22 09:00 06/12/22 09:23 Duloxetine Hcl 60 Mg Capsule.Dr PO 60 mg DAILY JERRY Administration Empagliflozin 25 mg 06/10/22 09:00
[2022-06-12] MEDS: TAMSULOSIN HCL 0.4 MG CAPSULE 0.8 MG PO (20:11)
[2022-06-12] MEDS: rOPINIRole HCL 1 MG TABLET 3 MG PO (20:11)
[2022-06-12] MEDS: ATORVASTATIN 40 MG TABLET PO (20:12)
[2022-06-12] MEDS: LATANOPROST 0.005% OP SOLN 2.5 ML BTL 1 DROP EACH EYE (20:14)
[2022-06-12] MEDS: INSULIN GLARGINE (*BKC) 100 UNITS/ML 42 UNITS SUB-Q (20:45)
[2022-06-12 20:56] LABS: Glucose Point of Care 199 mg/dl (65-105)
[2022-06-12] MEDS: MAGNESIUM HYDROXIDE SUSP 30 ML UDC PO (21:12)
[2022-06-13 04:13] VITALS: BP 113/69; PULSE 86; RESP 20; TEMP 36; O2SAT 94
[2022-06-13] MEDS: LEVOTHYROXINE SODIUM 25 MCG TABLET PO (04:57)
[2022-06-13] MEDS: LEVOTHYROXINE SODIUM 112 MCG TABLET PO (04:57)
[2022-06-13] MEDS: CENTRAL LINE FLUSH 10 ML IV PUSH ×2 (04:57→13:43)
[2022-06-13 05:01] LABS: Basophils Absolute Auto 0.1 K/mm3 (0.0-0.1); Basophils Percent Auto 0.7 % (0.2-1.2); Eosinophils Absolute Auto 0.3 K/mm3 (0-0.3); Eosinophils Percent Auto 2.8 % (0-4.4); Hematocrit 37.4 % (42.0-52.0); Hemoglobin 11.9 g/dL (14.0-18.0); Immature Granulocyte Absolute 0.23 K/mm3 (0.00-0.031); Immature Granulocyte Percent A 1.9 % (0-0.5); Lymphocytes Absolute Auto 1.46 K/mm3 (0.9-3.2); Mean Corpuscular HGB Conc 31.8 g/dl (32-36); Mean Corpuscular Hemoglobin 29.5 pg (26-34); Mean Corpuscular Volume 92.8 fl (80-100); Mean Platelet Volume 10.7 fl (7.4-10.4); Monocytes Absolute Auto 0.8 K/mm3 (0.1-0.6); Monocytes Percent Auto 6.8 % (2.6-8.5); Neutrophils Absolute Auto 9.2 K/mm3 (1.3-6.7); Neutrophils Percent Auto 75.8 % (45.5-73.1); Platelet Count Result 188 k/mm3 (150-375); Red Blood Count 4.03 M/mm3 (4.6-6.20); Red Cell Distribution Width 15.7 % (11.5-14.5); White Blood Count 12.2 K/mm3 (4.5-10.0)
[2022-06-13 05:18] LABS: Anion Gap 12 mmol/L (8-16); Blood Urea Nitrogen 55 mg/dL (9-20); Calcium 8.5 mg/dL (8.4-10.2); Carbon Dioxide 27 mmol/L (22-30); Chloride 97 mmol/L (98-107); Estimated CRCL calculation 61 ml/min; Estimated Glomerular Filt Rate 47; Glucose 128 mg/dL (65-110); Potassium 3.7 mmol/L (3.4-5.0); Sodium 136 mmol/L (137-145)
[2022-06-13 05:22] LABS: Vancomycin Trough 19.1 ug/mL (10.0-20.0)
[2022-06-13 07:20] LABS: Glucose Point of Care 117 mg/dl (65-105)
[2022-06-13] MEDS: cefTRIAXone 2 GM in SODIUM CHLORIDE 0.9% IV 100 ML 200 ML IVPB (08:49)
[2022-06-13] MEDS: metroNIDAZOLE 250 MG TABLET 500 MG PO ×2 (08:51→13:42)
[2022-06-13] MEDS: FINASTERIDE 5 MG TABLET PO (08:52)
[2022-06-13] MEDS: POTASSIUM CHLORIDE 10 MEQ TABLET.ER PO (08:52)
[2022-06-13] MEDS: allopurinoL 300 MG TABLET PO (08:52)
[2022-06-13] MEDS: FUROSEMIDE 80 MG TABLET PO (08:52)
[2022-06-13] MEDS: MONTELUKAST SODIUM 10 MG TABLET PO (08:52)
[2022-06-13] MEDS: metOLazone 5 MG TABLET PO (08:52)
[2022-06-13] MEDS: FERROUS GLUCONATE 324 MG TABLET PO (08:52)
[2022-06-13] MEDS: THERAPEUTIC MULTIVITAMINS/MINERALS TAB (*BKC) 1 TABLET PO (08:52)
[2022-06-13] MEDS: SACCHAROMYCES BOULARDII 250 MG CAPSULE PO ×2 (08:52→17:27)
[2022-06-13 08:53] VITALS: PULSE 88
[2022-06-13] MEDS: carvediloL 6.25 MG TABLET PO (08:53)
[2022-06-13] MEDS: amLODIPine BESYLATE 2.5 MG TABLET PO (08:53)
[2022-06-13] MEDS: MAGNESIUM OXIDE 400 MG TABLET PO (08:53)
[2022-06-13] MEDS: BACLOFEN 5 MG TABLET PO ×3 (08:53→17:25)
[2022-06-13] MEDS: PRIMIDONE 50 MG TABLET 100 MG PO (08:54)
[2022-06-13] MEDS: ASPIRIN 81 MG ENTERIC TABLET PO (08:54)
[2022-06-13] MEDS: ASCORBIC ACID 500 MG TABLET PO ×2 (08:54→17:26)
[2022-06-13] MEDS: APIXABAN 5 MG TABLET PO (08:54)
[2022-06-13] MEDS: lisinopriL 2.5 MG TABLET PO (08:54)
[2022-06-13] MEDS: EMPAGLIFLOZIN 25 MG TABLET PO (08:54)
[2022-06-13] MEDS: DULoxetine HCL 60 MG CAPSULE.DR PO (08:54)
[2022-06-13] MEDS: PANTOPRAZOLE 40 MG TABLET PO (08:54)
[2022-06-13] MEDS: PREGABALIN (*CRX) 50 MG CAPSULE PO ×2 (09:00→17:26)
[2022-06-13 11:16] LABS: Glucose Point of Care 161 mg/dl (65-105)
[2022-06-13] MEDS: COLLAGENASE OINT 30 GM TUBE 1 APPLIC TOPICAL (11:47)
--- NOTE | 2022-06-13 12:46 | PM.DS ---
DS: Admitting Diagnosis Discharge Date 06/13/22 Admitting Diagnosis Osteomyelitis of the left foot DS: Discharge Diagnosis Discharge Diagnosis (1) Acute osteomyelitis of left foot: Code(s): M86.172 - Other acute osteomyelitis, left ankle and foot Status: Acute Assessment and Plan: Noted on foot XR - seen in consultation by general surgery - underwent sharp excisional debridement of left heel ulcer in the OR on 06/10/2022. Tolerated procedure well - treated with IV Vancomycin and Primaxin during admission - wound culture with heavy growth of Providencia rettgeri - discussed with Infectious Disease PharmD. Recommended IV Ceftriaxone 2 g x6 weeks and PO flagyl for anaerobic coverage while awaiting finalized cultures for 2 weeks. Discussed with PCP who will follow antibiotics and determine full duration of Flagyl based on culture results and clinical improvement. - blood cultures with no growth to date. Final cultures will be monitored. - seen by wound care and instructions provided to pts nursing facility regarding wound care - follow up with General surgery and wound care on 06/27/22 (2) Diabetes mellitus: Code(s): E11.9 - Type 2 diabetes mellitus without complications Status: Acute Assessment and Plan: A1c is 8.4. Blood sugars were reasonably controlled during admission - continue Jardiance - continue home Lantus 55 units qHS with scheduled mealtime insulin 3 units (3) Community acquired pneumonia: Code(s): J18.9 - Pneumonia, unspecified organism Status: Ruled-out Assessment and Plan: Suspected on admission however seems unlikely based on clinical picture and imaging. - CXR with left basilar airspace consolidation which may represent atelectasis vs pna. CT of the chest reviewed with findings most consistent with atelectasis - No treatment required - COVID negative - Incentive spirometry provided. (4) Hypertension: Qualifiers: Hypertension type: primary hypertension Qualified Code(s): I10 - Essential (primary) hypertension Code(s): I10 - Essential (primary) hypertension Status: Chronic Assessment and Plan: Blood pressure reviewed daily during admission and was stable - Continue amlodipine, carvedilol, lasix, and lisinopril (5) History of CVA (cerebrovascular accident): Code(s): Z86.73 - Personal history of transient ischemic attack (TIA), and cerebral infarction without residual deficits Status: Acute Assessment and Plan: With residual left sided weakness -continue aspirin and statin therapy -pt maintained on eliquis due to history of stroke (6) Chronic systolic (congestive) heart failure: Code(s): I50.22 - Chronic systolic (congestive) heart failure Status: Acute Assessment and Plan: Hx of HFrEF down to 31% - not in acute exacerbation - No issues during admisison - Continue lisinopril, metoprolol, aspirin, and lasix (7) Elevated serum creatinine: Code(s): R79.89 - Other specified abnormal findings of blood chemistry Status: Acute Assessment and Plan: Renal function was monitored daily and remained stable - Review of prior labs suggest this to be near his baseline - He likely has CKD, though this is not documented in his medical history DS: Summary Hospital Course Hospital Course: Date of admission: 06/09/2022 Date of discharge: 06/13/2022 Bayron Ann is a 61-year-old male with a history of BPH, CAD, CHF,? CVA, hypertension, hyperlipidemia, type 2 diabetes mellitus who presented to the emergency department on 06/09/2022 due to left heel wound. The wound had been monitored at his nursing facility and when dressing change was being completed, staff felt the wound looked worsened. The patient was reportedly on vancomycin via PICC line, however the patient reported not taking this as prescribed due to medication shortage. On presentat
[2022-06-13 13:42] VITALS: BP 105/68; PULSE 86; RESP 20; TEMP 36.1; O2SAT 98
[2022-06-13 15:23] LABS: EDCOVIDSCREEN Negative (Negative)
[2022-06-13 16:29] LABS: Glucose Point of Care 254 mg/dl (65-105)
[2022-06-13] MEDS: INSULIN ASPART (*BKC) 100 UNITS/ML SUB-Q (17:28)
--- NOTE | 2022-06-13 19:20 | PC.NURSE ---
On 06/13/22, the Graduate Nurse, Philip Quinonez, provided care and completed [facility] documentation on this patient. I have reviewed the student's documentation and agree with the findings.
--- NOTE | 2022-06-16 06:49 | PC.NURSE ---
Blood cx are negative. Wound cx growing Providencia Rettgeri- susceptible to Ceftriaxone. THis is what pt was dc on. BRENNA Valdez aware.
== END 2022-06-13 19:35 | DRG 628 ==
LOC: ANHED 09:45 → ANH2MED 15:04
PROVIDERS: Physician Assistant; Surgery; Admitting Provider Student in an Organized Health Care Education/Training Program; Emergency Provider Emergency Medicine; PCP Family Medicine; Visit Provider Internal Medicine
PROC: 0QBM0ZX Excision of Left Tarsal, Open Approach, Diagnostic (ICD-10-PCS; principal; 2022-06-10 09:00)
DX: E11.69 Type 2 diabetes mellitus with other specified complication (principal); L89.624 Pressure ulcer of left heel, stage 4; M86.172 Other acute osteomyelitis, left ankle and foot; I69.354 Hemiplegia and hemiparesis following cerebral infarction affecting left non-dominant side; I50.42 Chronic combined systolic (congestive) and diastolic (congestive) heart failure; J98.11 Atelectasis; E11.621 Type 2 diabetes mellitus with foot ulcer; Z20.822 Contact with and (suspected) exposure to COVID-19; E11.9 Type 2 diabetes mellitus without complications; I11.0 Hypertensive heart disease with heart failure; E78.5 Hyperlipidemia, unspecified; B96.89 Other specified bacterial agents as the cause of diseases classified elsewhere; I25.10 Atherosclerotic heart disease of native coronary artery without angina pectoris; N40.0 Benign prostatic hyperplasia without lower urinary tract symptoms; E03.9 Hypothyroidism, unspecified; D72.829 Elevated white blood cell count, unspecified; I25.5 Ischemic cardiomyopathy; D64.9 Anemia, unspecified; Z79.82 Long term (current) use of aspirin; Z79.01 Long term (current) use of anticoagulants; I25.2 Old myocardial infarction; Z95.1 Presence of aortocoronary bypass graft; Z87.891 Personal history of nicotine dependence
CPT/HCPCS: 36415; 71045; 73630; 80048; 80053; 80202; 82948; 83036; 83605; 83735; 85025; 85027; 87040; 87070; 87075; 87077; 87186; 87205; 87426; 88307; 88311; 96365; 99285; A9270; C9803; J0696; J0743; J1815; J2704; J3010; J3370; J7120; U0003; U0005

== ENCOUNTER 2022-09-18 07:31 | Outpatient (RCR) | payer MEDICAID, SELFPAY ==
[2022-06-26 12:56] VITALS: BMI 30.4
--- NOTE | 2022-06-26 15:59 | P.PNWOUND_ITS ---
Wound Care Note Date/Time: 06/26/22 15:59 History: This is a 61-year-old man who presented with a left heel was hospitalized from 06/09/2022 to 06/13/2022. He underwent debridement of the heel wound on 06/10/2022. There was evidence of osteomyelitis and he is currently on long- term antibiotics. He returns for follow-up assessment of the wound. Wound history: Sharp excisional debridement left heel wound performed on 06/10/2022. Patient has currently been performing Santyl with Vaseline gauze dressings daily. He has been using the soft cushion and boot while in bed and avoiding pressure to the heel area. 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 Will have patient follow up again in 1 month in the wound clinic. (2) Acute osteomyelitis of left foot: Code(s): M86.172 - Other acute osteomyelitis, left ankle and foot Status: Acute (3) Chronic systolic (congestive) heart failure: Code(s): I50.22 - Chronic systolic (congestive) heart failure Status: Acute (4) Diabetes mellitus: Code(s): E11.9 - Type 2 diabetes mellitus without complications Status: Acute (5) Neuropathy: Code(s): G62.9 - Polyneuropathy, unspecified Status: Acute (6) CVA (cerebrovascular accident): Qualifiers: CVA mechanism: unspecified Qualified Code(s): I63.9 - Cerebral infarction, unspecified Code(s): I63.9 - Cerebral infarction, unspecified Status: Chronic Review of Systems Review of Systems: All systems reviewed & are unremarkable except as noted in HPI and below Exam 2 Extrem: Other: left heel wound remains open but surrounding tissue appears healthy and viable. There is still some yellow slough within the wound but there is also healthy granulation tissue and no evidence of necrotic tissue or purulence drainage.
--- NOTE | 2022-07-25 12:16 | PCWOUND ---
WOCN NOTE Care facility called and cancelled appointment for today. Let provider know and waiting for call back on new appointment date
--- NOTE | 2022-08-08 13:46 | P.PNWOUND_ITS ---
Wound Care Note Date/Time: 08/07/22 12:00 History: Bayron presented with a necrotic heel ulcer and osteomyelitis in June of 2022. He underwent surgical debridement of the ulcer on 06/10/2022. He was discharged from the hospital on 06/13/2022 and has been following up in the Wound Clinic. He has routine wound care at [facility]. Wound history: Patient was having Santyl wound dressing changes. He reports the wound has been doing well. He denies any fevers or surrounding redness. 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 Follow up in 6 weeks in Wound Clinic. (2) Acute osteomyelitis of left foot: Code(s): M86.172 - Other acute osteomyelitis, left ankle and foot Status: Acute (3) Chronic systolic (congestive) heart failure: Code(s): I50.22 - Chronic systolic (congestive) heart failure Status: Acute (4) Chronic anticoagulation: Code(s): Z79.01 - [facility] (current) use of anticoagulants Status: Acute (5) Diabetes mellitus: Code(s): E11.9 - Type 2 diabetes mellitus without complications Status: Acute Review of Systems Review of Systems: All systems reviewed & are unremarkable except as noted in HPI and below
--- NOTE | 2022-10-02 11:47 | P.PNWOUND_ITS ---
Wound Care Note Date/Time: 10/02/22 11:47 History: 62 yo man with left heel decubitus ulcer. Has hx of CVA and is bed and wheel chair bound. 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 Patient no longer on IV antibiotics. Continue physical therapy. Avoid pressure to heel. Follow up in 6 weeks. (2) History of CVA (cerebrovascular accident): Code(s): Z86.73 - Personal history of transient ischemic attack (TIA), and cerebral infarction without residual deficits Status: Acute Exam Extrem: Other: Left heel ulcer continuing to improve. Good granulation tissue and bone appears firm. No purulent drainage.
== END 2022-09-24 23:59 | disposition home or self-care (01) ==
LOC: ANHWOC 07:31
PROVIDERS: PCP Family Medicine; Visit Provider Surgery
DX: E11.621 Type 2 diabetes mellitus with foot ulcer (principal); L89.624 Pressure ulcer of left heel, stage 4
CPT/HCPCS: 99213; G0463

== ENCOUNTER 2022-11-30 12:34 | Observation (INO) | payer MEDICAID, SELFPAY ==
[2022-11-30] VITALS (19 sets, daily range): BP systolic 98–137; BP diastolic 60–93; PULSE 68–96; RESP 11–23; TEMP 36.3–36.5; O2SAT 93–99
--- NOTE | ~2022-11-30 | US_ITS ---
Duplex Sonography of the bilateral lower extremities: Indication: Swelling Sagittal and transverse B-mode images as well as color-flow imaging were performed on the right and l eft femoral and popliteal veins. B-mode examination was done without and with compression in the tra nsverse plane. There is good visualization of the bilateral common femoral, proximal profunda femora l, superficial femoral, greater saphenous, and popliteal veins. Normal flow was seen on color-flow im aging. Normal compressibility was demonstrated. Bilateral posterior tibial and peroneal veins are al so patent. Impression: No evidence of deep vein thrombosis involving either lower extremity. Reviewed, dictated and finalized at location M. NISTRATIVE NURSING SUPERVISOR Impression: No evidence of deep vein thrombosis involving either lower extremit y.
--- NOTE | ~2022-11-30 | XR_ITS ---
EXAMINATION: XR chest 1V portable DATE: 11/30/2022 14:11 INDICATION: Cough and shortness of breath. Syncope. TECHNIQUE: A single frontal view of the chest was obtained. COMPARISON: Chest single view 06/09/2022 FINDINGS: There are airspace opacities at left lung base. There is a small left pleural effusion. No pneumothorax. The heart size is normal. Median sternotomy wires and mediastinal surgical clips are se en, likely from prior coronary artery bypass grafting. IMPRESSION: 1. Stable chronic small left pleural effusion. 2. Stable chronic airspace opacities at left lung base, consistent with rounded atelectasis. Reviewed, dictated and finalized at location A. RVISOR LEAF SPRING FABRICATION
--- NOTE | ~2022-11-30 | CT_ITS ---
EXAMINATION: CT brain wo con DATE: 11/30/2022 20:18 INDICATION: Facial twitch. TECHNIQUE: Computed tomography (CT) of the head was performed without intravenous contrast. The dose- length product was 681.00 mGy-cm. Automated exposure control and iterative reconstruction technique w ere employed. COMPARISON: CT dated 04/03/2022 FINDINGS: Stable large chronic right parietal infarction with encephalomalacia. Generalized atrophy. There are scattered mild periventricular and subcortical white matter changes, most likely related to small vessel ischemic disease (microangiopathy). There is intracranial atherosclerosis. No ventricul omegaly or midline shift. There is compensatory dilation of the right lateral ventricle. Paranasal si nuses and mastoids are pneumatized. No depressed skull fractures. There is intracranial atheroscleros is. IMPRESSION: 1. No acute intracranial abnormality. 2: Stable chronic right parietal lobe infarction. Reviewed, dictated and finalized at location A. 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
--- NOTE | ~2022-11-30 | CT_ITS ---
EXAMINATION: CT facial & cervical spine wo DATE: 12/01/2022 10:55 INDICATION: Muscle spasms to the face. TECHNIQUE: Computed tomography (CT) of the maxillofacial region and cervical spine was performed with out intravenous contrast. Automated exposure control and iterative reconstruction technique were empl oyed. The dose-length product was 504.73 mGy-cm. COMPARISON: CT 06/05/2021 FINDINGS: MAXILLOFACIAL CT: There is an old infarct in right frontotemporal parietal region. There is a 10 x 13 mm subcutaneous m ass in right posterior scalp, stable from 06/05/2021, likely benign. There is rightward deviation of th e nasal septum. No fracture. There is mild mucosal thickening in the paranasal sinuses. There is ceru men in left external auditory canal. There is a carious lesion of tooth 31. CERVICAL SPINE CT: There is 14 degrees levoscoliosis of cervical spine. Vertebral body heights are normal. There is an o ld healed fracture of the base of the dens. There is mildly decreased disc height at C3-C4, C4-C5, an d C5-C6 and severely decreased disc height at C7-T1. The following disc levels are specifically discu ssed: C2-C3: There is mild bilateral uncovertebral joint osteoarthritis. There is mild bilateral facet join t osteoarthritis. There is no neural foraminal stenosis. There is no central canal stenosis. C3-C4: There is severe bilateral uncovertebral joint osteoarthritis. There is severe bilateral facet joint osteoarthritis. There is mild left neural foraminal stenosis. There is mild central canal steno sis. C4-C5: There is severe right and mild left uncovertebral joint osteoarthritis. There is severe bilate ral facet joint osteoarthritis. There is mild right neural foraminal stenosis. There is mild central canal stenosis. C5-C6: There is no uncovertebral joint osteoarthritis. There is mild right and severe left facet join t osteoarthritis. There is no neural foraminal stenosis. There is no central canal stenosis. C6-C7: There is mild left uncovertebral joint osteoarthritis. There is severe bilateral facet joint o steoarthritis. There is mild left neural foraminal stenosis. There is no central canal stenosis. C7-T1: There is severe bilateral uncovertebral joint osteoarthritis. There is severe right and modera te left facet joint osteoarthritis. There is mild bilateral neural foraminal stenosis. There is no ce ntral canal stenosis. IMPRESSION: 1. Old infarct in right frontotemporal parietal region. 2. Carious lesion of tooth 31. 3. No acute fracture. 4. Severe cervical spondylosis. 5. Cervical levoscoliosis. Reviewed, dictated and finalized at location A. 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
--- NOTE | ~2022-11-30 | US_ITS ---
Procedure: Duplex Doppler examination of the bilateral carotids. Indication: Syncope Technique: Real time, color-flow and pulse wave Doppler examination of the bilateral carotids was performed. Findings: Rawls scale ultrasonography of the right neck demonstrated a small calcified plaques the right carotid bulb. There was demonstration of normal color-flow and Doppler waveforms within the right common, in ternal and external carotid arteries. The peak systolic velocities in the right common, internal and external carotid arteries were demonstrated to be 68 cm/sec, 79 cm/sec and 101 cm/sec respectively. T he right ICA/CCA ratio was 1.3.The proximal right internal carotid artery demonstrates 15% stenosis r elative to the normal distal artery lumen diameter. Rawls scale sonography of the left neck demonstrated small calcified plaque at the mid left common car otid artery. There are additional small to moderate calcified plaques at the distal left common carot id artery/left carotid bulb.. There was demonstration of normal color-flow and wave forms within the left common, internal and external carotid arteries. The peak systolic velocities in the left common, internal and external carotid arteries were demonstrated to be 70cm/sec, 96 cm/sec and 152 cm/sec re spectively. The left ICA/CCA ratio was 1.4. The proximal left internal carotid artery demonstrates 15 % stenosis relative to the normal distal artery lumen diameter. There was antegrade flow demonstrated in the bilateral vertebral arteries. Impression: No hemodynamically significant stenosis of the bilateral internal carotid arteries. Antegrade flow in the bilateral vertebral arteries. Note: The methodology used is an indirect measurement validated against a direct method (such as the NASCET criteria) that compares diameters at the stenosis to the distal ICA. Reviewed, dictated and finalized at location . H FIXER Impression: No hemodynamically significant stenosis of the bilateral internal carotid arter ies. Antegrade flow in the bilateral vertebral arteries. Note: The methodology used is an indirect measurement validated against a direct meth od (such as the NASCET criteria) that compares diameters at the stenosis to the distal ICA.
--- NOTE | ~2022-11-30 | XR_ITS ---
XR ankle LT 2V 11/30/2022 22:51 Indication: Chronic wound Procedure: 2 views left ankle Comparison: 12/15/2014 Findings: Ankle mortise intact. No there is moderate soft tissue swelling adjacent to the posterior m argin of the calcaneus. There are degenerative calcaneal enthesophytes. There is polyarticular osteoa rthritis. There is extensive atherosclerosis. No erosive changes. No fracture or traumatic malalignme nt. Impression: 1: No acute bone or joint abnormality. No evidence for osteomyelitis. If there is clinical concern fo r osteomyelitis, further evaluation with MRI recommended. Reviewed, dictated and finalized at location A. EW TRAINER Impression: 1: No acute bone or joint abnormality. No evidence for osteomyelitis. If there is clinical concern for osteomyelitis, further evaluation with MRI recommended.
--- NOTE | 2022-11-30 12:47 | ECG_ITS ---
Measurements Intervals [place] Rate: 77 P: 57 DE: 197 QRS: -30 QRSD: 121 T: 136 QT: 390 QTc: 442 Interpretive Statements SINUS RHYTHM EXTENSIVE ANTERIOR INFARCT, AGE INDETERMINATE INFERIOR INFARCT, AGE INDETERMINATE ST-T WAVE ABNORMALITY IN HIGH LATERAL LEADS- CONSIDER ISCHEMIA BASELINE ARTIFACT- I, II, AVR, AVL. V4-V5 ABNORMAL ECG COMPARED TO ECG 04/03/2022 16:03:53 NO SIGNIFICANT CHANGES Electronically Signed On 11-30-2022 15:33:05 SHOE COVERER by Valentín James D.O.
[2022-11-30 13:03] LABS: Basophils Absolute Auto 0.1 K/mm3 (0.0-0.1); Eosinophils Absolute Auto 0.3 K/mm3 (0-0.3); Eosinophils Percent Auto 3.3 % (0-4.4); Hematocrit 43.3 % (42.0-52.0); Hemoglobin 14.3 g/dL (14.0-18.0); Immature Granulocyte Absolute 0.45 K/mm3 (0.00-0.031); Immature Granulocyte Percent A 4.6 % (0-0.5); Lymphocytes Absolute Auto 1.24 K/mm3 (0.9-3.2); Lymphocytes Percent Auto 12.6 % (18.3-44.2); Mean Corpuscular Hemoglobin 29.9 pg (26-34); Mean Corpuscular Volume 90.6 fl (80-100); Mean Platelet Volume 11.8 fl (7.4-10.4); Monocytes Absolute Auto 0.8 K/mm3 (0.1-0.6); Monocytes Percent Auto 7.7 % (2.6-8.5); Neutrophils Absolute Auto 6.9 K/mm3 (1.3-6.7); Neutrophils Percent Auto 70.8 % (45.5-73.1); Platelet Count Result 141 k/mm3 (150-375); Red Blood Count 4.78 M/mm3 (4.6-6.20); Red Cell Distribution Width 16.9 % (11.5-14.5); White Blood Count 9.8 K/mm3 (4.5-10.0)
[2022-11-30 13:11] LABS: Chloride 93 mmol/L (98-107)
[2022-11-30 13:15] LABS: Alanine Aminotransferase 18 U/L (6-50); Albumin Level 4.5 g/dL (3.5-5.1); Alkaline Phosphatase 111 U/L (38-126); Anion Gap 10 mmol/L (8-16); Aspartate Amino Transferase 26 U/L (17-59); Bilirubin,Total 0.5 mg/dL (0.2-1.3); Blood Urea Nitrogen 63 mg/dL (9-20); Calcium 8.8 mg/dL (8.4-10.2); Carbon Dioxide 30 mmol/L (22-30); Estimated CRCL calculation 58 ml/min; Estimated Glomerular Filt Rate 44; Glucose 334 mg/dL (65-110); Potassium 4.3 mmol/L (3.4-5.0); Sodium 133 mmol/L (137-145)
--- NOTE | 2022-11-30 13:31 | ED.GENADULT ---
HPI - General Adult General Chief complaint: Syncope Stated complaint: change of mental status Time Seen by Provider: 11/30/22 12:43 History of Present Illness HPI narrative: Patient is a 62-year-old male with history of CAD status post CABG, hyperlipidemia, hypertension, chronic foot wound presenting with syncope. Patient was at his nursing facility when he was noted to have altered mental status. He reportedly had a syncopal episode requiring sternal rub. Patient states that he thinks that he was aware of the entire episode but he is not sure. States that he sometimes has these blackout episodes. He complains of feeling generally fatigued but he otherwise denies complaints. No headache, vision changes, focal numbness or weakness, chest pain, shortness of breath, abdominal pain, vomiting, diarrhea. States he has a wound on his left foot that has been healing well since Dr. Fu debrided it. Related Data Home Medications Medication Instructions Recorded Confirmed allopurinol 300 mg tablet 300 mg PO DAILY 03/30/21 06/26/22 aspirin 81 mg tablet,delayed 81 mg PO DAILY 03/30/21 06/26/22 release atorvastatin 40 mg tablet 40 mg PO HS 03/30/21 06/26/22 biotin 5,000 mcg disintegrating 5,000 mcg PO DAILY 03/30/21 06/26/22 tablet bisacodyl 10 mg rectal suppository 10 mg RECTAL DAILY PRN Constipation 03/30/21 06/26/22 carvedilol 6.25 mg tablet 6.25 mg PO DAILY 03/30/21 06/26/22 cetirizine 10 mg tablet 10 mg PO DAILY 03/30/21 06/26/22 docusate sodium 100 mg capsule 100 mg PO DAILY PRN Constipation 03/30/21 06/26/22 finasteride 5 mg tablet 5 mg PO DAILY 03/30/21 06/26/22 insulin lispro 100 unit/mL 3 unit subcut AC 03/30/21 06/26/22 subcutaneous pen levothyroxine 137 mcg tablet 137 mcg PO QAM 03/30/21 06/26/22 pantoprazole 40 mg tablet,delayed 40 mg PO DAILY 03/30/21 06/26/22 release ropinirole 1 mg tablet 3 mg PO HS 03/30/21 06/26/22 tamsulosin 0.4 mg capsule 0.8 mg PO HS 03/30/21 06/26/22 apixaban 5 mg tablet (Eliquis) 5 mg PO BID 06/01/21 06/26/22 metolazone 5 mg tablet 5 mg PO DAILY 06/01/21 06/26/22 ascorbic acid (vitamin C) 500 mg 500 mg PO BID 01/18/22 06/26/22 capsule duloxetine 60 mg capsule,delayed 60 mg PO DAILY 01/18/22 06/26/22 release furosemide 80 mg tablet 80 mg PO DAILY 01/18/22 06/26/22 loperamide 2 mg capsule 2 mg PO PRN PRN Diarrhea 01/18/22 06/26/22 magnesium hydroxide 400 mg/5 mL 30 ml PO HS PRN Constipation 01/18/22 06/26/22 oral suspension (Milk of Magnesia) montelukast 10 mg tablet 10 mg PO DAILY 01/18/22 06/26/22 polyethylene glycol 3350 17 gram 17 g PO QAM 01/18/22 06/26/22 oral powder packet (Miralax) primidone 50 mg tablet 100 mg PO DAILY 01/18/22 06/26/22 Multivitamin-Minerals 1 tab-cap PO DAILY 06/09/22 06/26/22 Saccharomyces boulardii 250 mg 250 mg PO BID 06/09/22 06/26/22 capsule acetaminophen 500 mg tablet 1,000 mg PO Q8H PRN Pain 06/09/22 06/26/22 baclofen 5 mg tablet 5 mg PO TID 06/09/22 06/26/22 dulaglutide 0.75 mg/0.5 mL 0.75 mg subcut WEEKLY 06/09/22 06/26/22 subcutaneous pen injector (Trulicity) empagliflozin 25 mg tablet 25 mg PO DAILY 06/09/22 06/26/22 (Jardiance) ferrous gluconate 324 mg (38 mg 324 mg PO DAILY 06/09/22 06/26/22 iron) tablet insulin glargine-yfgn 100 unit/mL 55 unit subcut HS 06/09/22 06/26/22 subcutaneous solution ipratropium 0.5 mg-albuterol 3 mg 3 ml inhalation Q6H PRN Shortness 06/09/22 06/26/22 (2.5 mg base)/3 mL nebulization Of Breath soln latanoprost 0.005 % eye drops 1 drp EACH EYE HS 06/09/22 06/26/22 magnesium citrate (Citroma oral 296 ml PO DAILY PRN Constipation 06/09/22 06/26/22 solution) nystatin 100,000 unit/gram topical 1 applic topical BID 06/09/22 06/26/22 powder (Nyamyc) potassium chloride 10 mEq 10 meq PO DAILY 06/09/22 06/26/22 capsule,extended release sodium phosphates 19 gram-7 118 ml RECTAL DAILY PRN 06/09/22 06/26/22 gram/118 mL enema (Fleet Enema) Constipation triamcinolone acetonide 0.1 % 1 applic topical BI
[2022-11-30] MEDS: SODIUM CHLORIDE 0.9% IV 1,000 ML 999 ML IV CONT (13:52)
[2022-11-30 14:03] LABS: Troponin I < 0.012 ng/mL (0.000-0.034)
[2022-11-30 14:07] LABS: Appearance Urine Clear (Clear); Bilirubin Urine Negative (Negative); Blood Urine Negative (Negative); Color Urine Yellow (Yellow); Glucose Urine UA 3+ mg/dL (Negative); Ketones Urine Negative (Negative); Leukocyte Esterase Ur Negative LEU/UL (Negative); Nitrate Urine Negative (Negative); Protein Urine Negative (Negative); Urobilinogen Urine 0.2 mg/dL (<2.0)
[2022-11-30 14:14] LABS: RBC Urine 0-2 /hpf (0-2); WBC Urine 0-3 /hpf
[2022-11-30 14:33] LABS: Add Urine Microscopic? YES
[2022-11-30 14:53] LABS: Influenza A QL RT-PCR Negative (Negative); Influenza B QL RT-PCR Negative (Negative); RSV RNA, RT-PCR Negative (Negative); SARS-CoV-2 RNA PCR Negative
--- NOTE | 2022-11-30 15:49 | ADMGEN ---
This patient, Bayron Ann, was admitted to Medical Room 254-01. Patient/family oriented to hospital policies and general routines including ID bracelet, bed and alarms, visiting hours, pain management, procedures, bathroom and other care routines, personal items, smoking policy, room service/diet, and visiting hours. Information on how to activate the Rapid Response Team has been discussed. Patient/Family are encouraged to report perceived risks to care and to ask questions if they do not understand what they are told or what they should do.
[2022-11-30 17:32] LABS: Glucose Point of Care 210 mg/dl (65-105)
[2022-11-30 17:34] LABS: Troponin I < 0.012 ng/mL (0.000-0.034)
--- NOTE | 2022-11-30 19:09 | PM.IMHP ---
H&P: HPI History of Present Illness Date/Time: 11/30/22 19:09 Chief Complaint: Syncope Narrative: This is a 62-year-old male patient who has a history of a 4 vessel CABG, hyperlipidemia and hypertension. The patient also has a chronic wound to his left foot and cannot bear weight on that foot. The patient comes from [facility] where he was noted to have altered mental status. The patient stated that he had a syncopal episode requiring sternal rub. The patient is also complaining of having some muscle spasms to his left face. No facial drooping is noted. The patient had no visual changes and no other focal weakness. The patient has not been ambulating very well due to his nonweightbearing to his left foot due to his chronic ulcer. The patient stated that his left foot has been healing since he saw Dr. gifford however that left foot is edematous. Platelet count is 141. Patient's creatinine is 1.6 with a baseline of 1.4-1.5. The patient was found to be hypotensive when sitting up. Patient's blood pressure lying was 126/88 and sitting was 98/60. The patient is on a beta-farhan. His glucose initially was 334 and is now 200. Troponin x2 nonreactive. Patient is negative for influenza a B RSV and COVID. The patient was started on IV fluids. Head CT was read as no acute intracranial abnormality. Stable chronic rate parietal lobe infarction. Chest x-ray was read as stable chronic small left pleural effusion. Stable chronic airspace opacities at the left lung base consistent with rounded atelectasis. The patient is being admitted to observation on the date of service 11/30/2022. Review of Systems Review of Systems: See HPI All systems reviewed & are unremarkable except as noted in HPI and below Constitutional: Constitutional: Reports as per HPI and Reports no additional constitutional complaints Eyes: Eyes: Reports as per HPI and Reports no additional eye complaints ENT: Reports system reviewed and no additional complaints, except as documented and Reports Normal hearing present Cardiovascular: Cardiovascular: Reports no additional cardiovascular complaints Respiratory: Respiratory: Reports no additional respiratory complaints and Reports no additional respiratory complaints Gastrointestinal: Gastrointestinal: Reports as per HPI and Reports no additional gastrointestinal complaints Musculoskeletal: Musculoskeletal: Reports no additional musculoskeletal complaints Integumentary/Breasts: Skin/Breast: Reports system reviewed and no additional complaints, except as docu and Reports as per HPI Neurologic: Reports system reviewed and no additional complaints, except as documented, Reports as per HPI and Reports Normal hearing present Psychiatric: Psychiatric: Reports no additional psychiatric complaints and Reports as per HPI Endocrine: Endocrine: Reports no additional endocrine complaints Hematologic/Lymphatic: Hematologic/Lymphatic: Reports no additional hematologic/lymphatic complaints Allergic/Immunologic: Allergic/Immunologic: Reports no additional allergic/immunologic complaints [facility] Past Medical History Medical History (Updated 11/30/22 @ 22:26 by Barb Hoyt NP) Benign prostatic hyperplasia Chronic anemia Colon cancer screening Combined systolic and diastolic congestive heart failure Coronary artery disease Status post three-vessel bypass and left ventricular aneurysm repair in February 2019 at [facility]. Current use of alf anticoagulation Depression Glaucoma Gout History of cerebrovascular accident (~01/2019) Post CABG right parietal infarction with clinical left hemiplegia. Hyperlipidemia Hypertension Hypothyroidism Insulin dependent diabetes mellitus Hemoglobin A1c was 7.7% on 04/19/2021. Ischemic cardiomyopathy Most recent calculated EF was 31%. Myocardial infarction (~01/2019) Late presentation [place] found to have severe three-vessel disease, transferred to [facility]
[2022-11-30 20:58] LABS: Glucose Point of Care 200 mg/dl (65-105)
[2022-11-30] MEDS: APIXABAN 5 MG TABLET PO (23:29)
[2022-11-30] MEDS: rOPINIRole HCL 1 MG TABLET 3 MG PO (23:29)
[2022-11-30] MEDS: BACLOFEN 5 MG TABLET PO (23:29)
[2022-11-30] MEDS: TAMSULOSIN HCL 0.4 MG CAPSULE 0.8 MG PO (23:29)
[2022-11-30] MEDS: SILVERGEL (ELTA) 45 ML 1 APPLIC TOPICAL (23:29)
[2022-11-30] MEDS: PREGABALIN (*CRX) 75 MG CAPSULE PO (23:29)
[2022-11-30] MEDS: MELATONIN 5 MG TABLET PO (23:30)
[2022-11-30] MEDS: ATORVASTATIN 40 MG TABLET PO (23:30)
[2022-11-30] MEDS: LATANOPROST 0.005% OP SOLN 2.5 ML BTL 1 DROP EACH EYE (23:31)
[2022-11-30] MEDS: PRIMIDONE 50 MG TABLET PO (23:33)
[2022-12-01] VITALS (18 sets, daily range): BP systolic 103–130; BP diastolic 56–91; PULSE 72–94; RESP 14–21; TEMP 36.3–36.8; O2SAT 92–100
--- NOTE | 2022-12-01 | ECHO_ITS ---
Patient Info Name: Bayron Ann Age: 62 years : 1960 Gender: Male Ht: 74 in Wt: 258 lbs BSA: 2.50 m2 HR: 81 bpm BP: 128 / 56 mmHg Heart Rhythm: Sinus Rhythm Technical Quality: Fair Exam Date: 12/01/2022 9:15 AM Exam Location: [facility] Patient Status: Outpatient Admit Date: 11/30/2022 Staff Ordering Physician: Barb Hoyt NP Frame Stripper: Raina Hooks RDCS Attending Provider: Sarah Woods DO Referring Physician: Evelina ROGERS; Exam Type: CA echo dop color flow w con Study Info Indications R55 - Syncope and collapse Complete two-dimensional, color flow and Doppler transthoracic echocardiogram is performed with contrast to opacify the left ventricle and to improve the deliniation of the left ventricle endocardial borders. Contrast/Agitated Saline Contrast/Ag. Saline: Definity Amount: 3.00 ml Administered By: Raina Hooks RDCS Existing IV Access: Yes IV Access Condition: patent with no signs of infiltration Summary 1. Definity contrast injected to improve visualization. 2. Mild LV enlargement with systolic dysfunction with akinesis of the mid to apical anterior wall, apex, apical septum and apical inferior wall. 3. Wall motion abnormalities are compatible with previous mid to apical anterior infarction. 4. Dilated left atrium. 5. Mild aortic valve stenosis. Left Ventricle Left ventricular chamber dimension is mildly enlarged. Left ventricular systolic function is moderately reduced, estimated at 35-40%. The left ventricular diastolic function is grade I diastolic dysfunction. Right Ventricle Right ventricular chamber dimension is normal. Left Atria Left atrial chamber dimension is moderately enlarged. Right Atria Right atrial chamber dimension is normal. Aortic Valve The aortic valve is trileaflet. There is moderate aortic valve sclerosis. There is mild aortic valve stenosis with a peak velocity of 191.04 cm/s, mean gradient of 8 mmHg, and aortic valve area of 1.76 cm2. Pulmonic Valve The pulmonic valve is not well visualized. Mitral Valve The mitral valve has normal leaflets. The mitral valve annulus is mildly calcified. Tricuspid Valve The tricuspid valve leaflets are normal. Pericardium/Pleural The pericardium appears normal. Aorta The aortic root size at the sinus of Valsalva is normal. Left Ventricular Outflow Tract Name Value Normal LVOT 2D LVOT Diameter 2.02 cm LVOT Doppler LVOT Peak Gradient 5 mmHg LVOT Mean Gradient 2 mmHg LVOT VTI 20.88 cm LVOT VTI/AV VTI Ratio 0.55 LVOT Stroke Volume 66.98 ml LVOT CO 5.20 l/min LVOT CI 2.07 L/min/m2 Pulmonic Valve Name Value Normal MANSOOR Snell
[2022-12-01 03:43] LABS: Alanine Aminotransferase 17 U/L (6-50); Albumin Level 4.1 g/dL (3.5-5.1); Alkaline Phosphatase 102 U/L (38-126); Anion Gap 8 mmol/L (8-16); Aspartate Amino Transferase 28 U/L (17-59); Bilirubin,Total 0.6 mg/dL (0.2-1.3); Blood Urea Nitrogen 60 mg/dL (9-20); Calcium 8.6 mg/dL (8.4-10.2); Carbon Dioxide 30 mmol/L (22-30); Chloride 96 mmol/L (98-107); Estimated CRCL calculation 58 ml/min; Estimated Glomerular Filt Rate 44; Glucose 175 mg/dL (65-110); Phosphorus 4.7 mg/dL (2.5-4.5); Sodium 134 mmol/L (137-145)
--- NOTE | 2022-12-01 04:18 | PC.NURSE ---
0155 patient had called nursing for pain medication, entered room to find patient with jerking movements to bilat arms, right leg and head. patient was not incontinent, could answer questions and follow commands to hold arm still for blood pressure check. bp 128/56, pulse 81, rr 16, pulse ox 95% on room air.
--- NOTE | 2022-12-01 04:21 | PC.NURSE ---
0200 Dr. Guevara informed of jerking movements and status, order for prolactin level obtained.
--- NOTE | 2022-12-01 04:22 | PC.NURSE ---
0230 patient resting quietly in bed with no jerking movements noted.
[2022-12-01] MEDS: LEVOTHYROXINE SODIUM 112 MCG TABLET PO (05:50)
[2022-12-01] MEDS: LEVOTHYROXINE SODIUM 25 MCG TABLET PO (05:50)
[2022-12-01 06:11] LABS: Basophils Absolute Auto 0.1 K/mm3 (0.0-0.1); Basophils Percent Auto 1.1 % (0.2-1.2); Eosinophils Absolute Auto 0.4 K/mm3 (0-0.3); Hematocrit 40.5 % (42.0-52.0); Immature Granulocyte Absolute 0.51 K/mm3 (0.00-0.031); Immature Granulocyte Percent A 4.2 % (0-0.5); Lymphocytes Absolute Auto 1.73 K/mm3 (0.9-3.2); Lymphocytes Percent Auto 14.1 % (18.3-44.2); Mean Corpuscular HGB Conc 32.1 g/dl (32-36); Mean Corpuscular Hemoglobin 29.7 pg (26-34); Mean Corpuscular Volume 92.7 fl (80-100); Mean Platelet Volume 11.3 fl (7.4-10.4); Monocytes Absolute Auto 1.2 K/mm3 (0.1-0.6); Monocytes Percent Auto 9.4 % (2.6-8.5); Neutrophils Absolute Auto 8.4 K/mm3 (1.3-6.7); Neutrophils Percent Auto 68.2 % (45.5-73.1); Platelet Count Result 144 k/mm3 (150-375); Red Blood Count 4.37 M/mm3 (4.6-6.20); Red Cell Distribution Width 16.7 % (11.5-14.5); White Blood Count 12.3 K/mm3 (4.5-10.0)
[2022-12-01 06:39] LABS: Lactic Acid Reflex 1.3 mmol/L (0.7-2.0)
[2022-12-01 07:28] LABS: Hemoglobin A1C 7.9 % (<5.7)
--- NOTE | 2022-12-01 08:30 | PM.IMPN ---
Progress Note: A&P Assessment and Plan (1) Syncope due to orthostatic hypotension: Code(s): I95.1 - Orthostatic hypotension Status: Acute Assessment and Plan: Q shift orthostatic blood pressures Head CT - No acute intracranial abnormality and stable chronic right parietal lobe infarction. Patient has had a history of cervical neck fracture that was fused. facial and neck CT negative. carotid doppler without significant stenosis Echocardiogram pending. EEG completed and results pending. Prolactin level pending. neurology consult was greatly be appreciated. Attempt to de-escalate medications- decreased coreg and furosemide. 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 -wound care consult was greatly be appreciated. continue wound care daily. wound culture pending (3) Chronic systolic (congestive) heart failure: Code(s): I50.22 - Chronic systolic (congestive) heart failure Status: Acute Assessment and Plan: Is reported that he has both diastolic and systolic. an echo pending decrease coreg and furosemide doses due to orthostasis. Hold zaroxolyn. the patient has been inactive and chair bound. (4) History of CVA (cerebrovascular accident): Code(s): Z86.73 - Personal history of transient ischemic attack (TIA), and cerebral infarction without residual deficits Status: Chronic Assessment and Plan: the patient is on Eliquis (5) Diabetes mellitus: Code(s): E11.9 - Type 2 diabetes mellitus without complications Status: Acute Assessment and Plan: Trulicity is non formulary. Accu-Cheks AC and HS with sliding scale insulin and hypoglycemic protocol. Check A1c 7.9% continue with Jardiance (6) Neuropathy: Code(s): G62.9 - Polyneuropathy, unspecified Status: Acute Assessment and Plan: Continue with Lyrica. (7) Hypothyroidism: Qualifiers: Hypothyroidism type: unspecified Qualified Code(s): E03.9 - Hypothyroidism, unspecified Code(s): E03.9 - Hypothyroidism, unspecified Status: Chronic Assessment and Plan: TSH low, free T4 within normal range, repeat in 4-6 weeks. -continue with levothyroxine. (8) Hyperlipidemia: Code(s): E78.5 - Hyperlipidemia, unspecified Status: Chronic Assessment and Plan: -continue with atorvastatin (9) Hypertension: Qualifiers: Hypertension type: primary hypertension Qualified Code(s): I10 - Essential (primary) hypertension Code(s): I10 - Essential (primary) hypertension Status: Chronic Assessment and Plan: +orthostatic vitals. antihypertensive changes as above (10) RLS (restless legs syndrome): Code(s): G25.81 - Restless legs syndrome Status: Acute Assessment and Plan: -continue with Lyrica -continue with baclofen -continue with Voltaren cream -continue with primidone. Patient's outside pharmacy prescription is read as 50 mg b.i.d. and not 150 mg daily. (11) Glaucoma: Code(s): H40.9 - Unspecified glaucoma Status: Chronic Assessment and Plan: Continue with home eye drops. (12) Benign prostatic hyperplasia: Code(s): N40.0 - Benign prostatic hyperplasia without lower urinary tract symptoms Status: Chronic Assessment and Plan: -continue with finasteride and tamsulosin (13) CKD (chronic kidney disease) stage 3, GFR 30-59 ml/min: Code(s): N18.30 - Chronic kidney disease, stage 3 unspecified Status: Chronic Assessment and Plan: Monitor renal function Time Spent With Patient Time with patient: 25 - 35 minutes Subjective Date/time seen: 12/01/22 08:30 Interval history: Patient is a 62-year-old male with CAD s/p CABG 4 vessel, insulin depend
[2022-12-01 08:37] LABS: Glucose Point of Care 180 mg/dl (65-105)
[2022-12-01] MEDS: DULoxetine HCL 60 MG CAPSULE.DR PO (09:17)
[2022-12-01] MEDS: FINASTERIDE 5 MG TABLET PO (09:17)
[2022-12-01] MEDS: CHOLECALCIFEROL 1,000 UNITS TABLET 4000 UNITS PO (09:17)
[2022-12-01] MEDS: MAGNESIUM OXIDE 400 MG TABLET PO (09:17)
[2022-12-01] MEDS: EMPAGLIFLOZIN 25 MG TABLET PO (09:18)
[2022-12-01] MEDS: APIXABAN 5 MG TABLET PO ×2 (09:18→20:33)
[2022-12-01] MEDS: ASCORBIC ACID 500 MG TABLET PO ×2 (09:18→16:06)
[2022-12-01] MEDS: PANTOPRAZOLE 40 MG TABLET PO (09:18)
[2022-12-01] MEDS: PRIMIDONE 50 MG TABLET PO ×2 (09:18→20:33)
[2022-12-01] MEDS: FERROUS GLUCONATE 324 MG TABLET PO (09:19)
[2022-12-01] MEDS: PREGABALIN (*CRX) 75 MG CAPSULE PO ×3 (09:19→16:06)
[2022-12-01] MEDS: POTASSIUM CHLORIDE 10 MEQ TABLET.ER PO (09:19)
[2022-12-01] MEDS: ASPIRIN 81 MG ENTERIC TABLET PO (09:19)
[2022-12-01] MEDS: BACLOFEN 5 MG TABLET PO ×2 (09:19→16:06)
[2022-12-01] MEDS: carvediloL 3.125 MG TABLET PO (09:21)
[2022-12-01] MEDS: lisinopriL 2.5 MG TABLET PO (09:22)
[2022-12-01] MEDS: FUROSEMIDE 40 MG TABLET PO (09:22)
[2022-12-01] MEDS: TRIAMCINOLONE ACET 0.1% CREAM 15 GM TUBE 1 APPLIC TOPICAL ×2 (09:22→16:06)
[2022-12-01] MEDS: AZELASTINE HCL NASAL 0.1% 137 MCG/SPR 30 ML BTL 1 SPRAY NASAL ×2 (09:22→16:06)
[2022-12-01] MEDS: traMADol HCL (*CRX) 50 MG TABLET 100 MG PO (09:39)
[2022-12-01 09:53] LABS: Free T4 Free Thyroxine Reflex 1.22 ng/dL (0.78-2.19)
[2022-12-01] MEDS: PERFLUTREN LIPID MICROSPHERES 1.5 ML VIAL DILUTED TO 10 ML TOTAL VOLUME IV PUSH (10:16)
--- NOTE | 2022-12-01 10:17 | IVDEFINITY ---
Prior to administration of IV Definity the patient was educated on the risks and benefits of the imaging enhancing agent including potential adverse side effects. The patient verbalized understanding. Allergies were verified. No exclusion criteria were identified and at least one of the following inclusion criteria were met: 1) physician request, 2) patient technically difficult to image (per the [place] [employer] Echocardi[employer] guidelines of two or more segments not discernable within the apical view), or 3) questionable left ventricular function. ?
[2022-12-01 11:34] LABS: Total Triiodothyronine (T3) 1.01 NG/ML (0.97-1.69)
[2022-12-01 12:26] LABS: Glucose Point of Care 222 mg/dl (65-105)
[2022-12-01] MEDS: INSULIN ASPART (*BKC) 100 UNITS/ML SUB-Q ×2 (12:41→17:10)
[2022-12-01 17:06] LABS: Glucose Point of Care 218 mg/dl (65-105)
--- NOTE | 2022-12-01 17:15 | WPDNEURCNPN ---
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: Code(s): L89.624 - Pressure ulcer of left heel, stage 4 Status: Acute (4) Chronic systolic (congestive) heart failure: Code(s): I50.22 - Chronic systolic (congestive) heart failure Status: Acute (5) History of CVA (cerebrovascular accident): Code(s): Z86.73 - Personal history of transient ischemic attack (TIA), and cerebral infarction without residual deficits Status: Acute (6) Chronic anticoagulation: Code(s): 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 Diabetic neuropathy with autonomic dysfunction resulting in orthostatic hypotension 4 history of cervical spine surgery but no evidence of abnormal Babinski's consider spinal stenosis plan complete evaluation then recommendation accordingly Consult date: 12/01/22 HPI: Bayron Ann is a 62 year old male admitted to the hospital through the emergency room for the complaints of change in the mental status with syncope in addition to history of 1. Coronary artery disease status post CABG 2. Hyperlipidemia 3. Hypertension 4. Chronic foot wound reportedly he was at his nursing facility when he was noted to have change in the mental status with syncopal episode which required sternal rub he also reported some time he has these blackout episodes he complained of general weakness and fatigue without any headache focal weakness or numbness or difficulties in breathing. Medications included aspirin 81 mg daily atorvastatin 40 mg daily, carvedilol 6.25 mg daily finasteride 5 mg daily insulin 3units a.c. levothyroxine 137 micro g daily ropinirole 3 mg at night apixaban 5 mg twice a day and duloxetine 60 mg daily, evaluation in the Emergency Room documented mild leukocytosis with platelet count 144, blood sugar 218, negative for influenza AB RSV and starts COVID, x-ray chest with chronic small left pleural effusion, carotid Doppler studies negative, head CT scan negative, echocardiogram with dilated left atrium and mild aortic valve stenosis, former alcohol intake former smoker, initial evaluation in the emergency room with normal vital signs and admitted to the hospital for syncope due to orthostatic hypotension in addition to documented stage IV pressure ulcer of the left he Leah history of TIA in the past, history of neuropathy in the p [facility] Past Medical History Medical History Benign prostatic hyperplasia Chronic anemia CKD (chronic kidney disease) stage 3, GFR 30-59 ml/min Colon cancer screening Combined systolic and diastolic congestive heart failure Coronary artery disease Status post three-vessel bypass and left ventricular aneurysm repair in February 2019 at [facility]. Current use of fpc anticoagulation Depression Glaucoma Gout History of cerebrovascular accident (~01/2019) Post CABG right parietal infarction with clinical left hemiplegia. Hyperlipidemia Hypertension Hypothyroidism Insulin dependent diabetes mellitus Hemoglobin A1c was 7.7% on 04/19/2021. Ischemic cardiomyopathy Most recent calculated EF was 31%. Myocardial infarction (~01/2019) Late presentation [place] found to have severe three-vessel disease, transferred to [facility] for emergent bypass with perioperative ventricular fibrillation arrest. Surgical History Surgical History (Reviewed
[2022-12-01] MEDS: TAMSULOSIN HCL 0.4 MG CAPSULE 0.8 MG PO (20:32)
[2022-12-01] MEDS: ATORVASTATIN 40 MG TABLET PO (20:33)
[2022-12-01] MEDS: rOPINIRole HCL 1 MG TABLET 3 MG PO (20:33)
[2022-12-01] MEDS: LATANOPROST 0.005% OP SOLN 2.5 ML BTL 1 DROP EACH EYE (20:33)
[2022-12-01] MEDS: INSULIN GLARGINE (*BKC) 100 UNITS/ML 55 UNITS SUB-Q (20:39)
[2022-12-01 21:12] LABS: Glucose Point of Care 216 mg/dl (65-105)
[2022-12-02] VITALS (12 sets, daily range): BP systolic 109–128; BP diastolic 48–71; PULSE 74–107; RESP 14–20; TEMP 36.3–36.8; O2SAT 94–99
[2022-12-02] MEDS: BACLOFEN 5 MG TABLET PO ×4 (02:04→23:23)
[2022-12-02 05:15] LABS: Hematocrit 39.8 % (42.0-52.0); Mean Corpuscular HGB Conc 32.7 g/dl (32-36); Mean Corpuscular Hemoglobin 30.1 pg (26-34); Mean Corpuscular Volume 92.1 fl (80-100); Mean Platelet Volume 11.6 fl (7.4-10.4); Platelet Count Result 137 k/mm3 (150-375); Red Blood Count 4.32 M/mm3 (4.6-6.20); Red Cell Distribution Width 16.7 % (11.5-14.5); White Blood Count 11.5 K/mm3 (4.5-10.0)
[2022-12-02 05:35] LABS: Alanine Aminotransferase 16 U/L (6-50); Albumin Level 3.9 g/dL (3.5-5.1); Alkaline Phosphatase 81 U/L (38-126); Anion Gap 8 mmol/L (8-16); Aspartate Amino Transferase 19 U/L (17-59); Bilirubin,Total 0.4 mg/dL (0.2-1.3); Blood Urea Nitrogen 53 mg/dL (9-20); Calcium 8.7 mg/dL (8.4-10.2); Carbon Dioxide 30 mmol/L (22-30); Chloride 97 mmol/L (98-107); Estimated CRCL calculation 58 ml/min; Estimated Glomerular Filt Rate 44; Glucose 140 mg/dL (65-110); Potassium 3.6 mmol/L (3.4-5.0); Sodium 135 mmol/L (137-145)
[2022-12-02] MEDS: LEVOTHYROXINE SODIUM 25 MCG TABLET PO (05:50)
[2022-12-02] MEDS: LEVOTHYROXINE SODIUM 112 MCG TABLET PO (05:50)
[2022-12-02 06:30] LABS: Vitamin D 25 Hydroxy 66.9 ng/mL
[2022-12-02 08:18] LABS: Glucose Point of Care 160 mg/dl (65-105)
[2022-12-02] MEDS: TRIAMCINOLONE ACET 0.1% CREAM 15 GM TUBE 1 APPLIC TOPICAL ×2 (08:55→16:26)
[2022-12-02] MEDS: PRIMIDONE 50 MG TABLET PO (08:55)
[2022-12-02] MEDS: EMPAGLIFLOZIN 25 MG TABLET PO (08:55)
[2022-12-02] MEDS: PANTOPRAZOLE 40 MG TABLET PO (08:55)
[2022-12-02] MEDS: MAGNESIUM OXIDE 400 MG TABLET PO (08:55)
[2022-12-02] MEDS: AZELASTINE HCL NASAL 0.1% 137 MCG/SPR 30 ML BTL 1 SPRAY NASAL ×2 (08:55→16:26)
[2022-12-02] MEDS: ASCORBIC ACID 500 MG TABLET PO ×2 (08:56→16:26)
[2022-12-02] MEDS: lisinopriL 2.5 MG TABLET PO (08:56)
[2022-12-02] MEDS: APIXABAN 5 MG TABLET PO ×2 (08:56→20:21)
[2022-12-02] MEDS: PREGABALIN (*CRX) 75 MG CAPSULE PO ×3 (08:56→16:26)
[2022-12-02] MEDS: ASPIRIN 81 MG ENTERIC TABLET PO (08:56)
[2022-12-02] MEDS: CHOLECALCIFEROL 1,000 UNITS TABLET 4000 UNITS PO (08:56)
[2022-12-02] MEDS: FERROUS GLUCONATE 324 MG TABLET PO (08:56)
[2022-12-02] MEDS: carvediloL 3.125 MG TABLET PO (08:56)
[2022-12-02] MEDS: POTASSIUM CHLORIDE 10 MEQ TABLET.ER PO (08:56)
[2022-12-02] MEDS: DULoxetine HCL 60 MG CAPSULE.DR PO (08:56)
[2022-12-02] MEDS: FUROSEMIDE 40 MG TABLET PO (08:57)
[2022-12-02] MEDS: SILVERGEL (ELTA) 45 ML 1 APPLIC TOPICAL (08:57)
--- NOTE | 2022-12-02 09:51 | PM.IMPN ---
Progress Note: A&P Assessment and Plan (1) Syncope due to orthostatic hypotension: Code(s): I95.1 - Orthostatic hypotension Status: Acute Assessment and Plan: Q shift orthostatic blood pressures Head CT - No acute intracranial abnormality and stable chronic right parietal lobe infarction. Patient has had a history of cervical neck fracture that was fused. facial and neck CT negative. carotid doppler without significant stenosis Echocardiogram pending. EEG completed and results pending. Prolactin level pending. neurology consult was greatly be appreciated. Attempt to de-escalate medications- decreased coreg and furosemide. 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 -wound care consult was greatly be appreciated. continue wound care daily. wound culture demonstrates staph aureus growth. Wound with yellow slough to the wound base and clear, yellow discharge. No odor, surrounding erythema or purulent discharge. Hold off on antibiotics at this time. (3) Chronic systolic (congestive) heart failure: Code(s): I50.22 - Chronic systolic (congestive) heart failure Status: Acute Assessment and Plan: Chronic, not in acute exacerbation. echo shows mild LV enlargement, apical and septal akinesis, EF 35-40%, mild aortic stenosis and LA enlargement. decrease coreg and furosemide doses due to orthostasis. Hold zaroxolyn. the patient has been inactive and chair bound. (4) History of CVA (cerebrovascular accident): Code(s): Z86.73 - Personal history of transient ischemic attack (TIA), and cerebral infarction without residual deficits Status: Chronic Assessment and Plan: -the patient is on Eliquis (5) Diabetes mellitus: Code(s): E11.9 - Type 2 diabetes mellitus without complications Status: Acute Assessment and Plan: -Trulicity is non formulary. -Accu-Cheks AC and HS with sliding scale insulin and hypoglycemic protocol. A1c 7.9% -continue with Jardiance (6) Neuropathy: Code(s): G62.9 - Polyneuropathy, unspecified Status: Acute Assessment and Plan: Continue with Lyrica. (7) Hypothyroidism: Qualifiers: Hypothyroidism type: unspecified Qualified Code(s): E03.9 - Hypothyroidism, unspecified Code(s): E03.9 - Hypothyroidism, unspecified Status: Chronic Assessment and Plan: -check thyroid level in the a.m.. -continue with levothyroxine. (8) Hyperlipidemia: Code(s): E78.5 - Hyperlipidemia, unspecified Status: Chronic Assessment and Plan: -continue with atorvastatin (9) Hypertension: Qualifiers: Hypertension type: primary hypertension Qualified Code(s): I10 - Essential (primary) hypertension Code(s): I10 - Essential (primary) hypertension Status: Chronic (10) RLS (restless legs syndrome): Code(s): G25.81 - Restless legs syndrome Status: Acute Assessment and Plan: -continue with Lyrica -continue with baclofen -continue with Voltaren cream -continue with primidone. Increased jerking movements- increase HS primidone 75 mg and am 50 mg. EEG pending. (11) Glaucoma: Code(s): H40.9 - Unspecified glaucoma Status: Chronic Assessment and Plan: Continue with home eye drops. (12) Benign prostatic hyperplasia: Code(s): N40.0 - Benign prostatic hyperplasia without lower urinary tract symptoms Status: Chronic Assessment and Plan: -continue with finasteride (13) CKD (chronic kidney disease) stage 3, GFR 30-59 ml/min: Code(s): N18.30 - Chronic kidney disease, stage 3 unspecified Status: Chronic Assessment and Plan: Chronic, near baseline and stable for 48 hours. Avoid nephrotoxic agents. Monitor I/O Plan Pos
[2022-12-02 12:05] LABS: Glucose Point of Care 173 mg/dl (65-105)
[2022-12-02 17:35] LABS: Glucose Point of Care 183 mg/dl (65-105)
[2022-12-02] MEDS: LATANOPROST 0.005% OP SOLN 2.5 ML BTL 1 DROP EACH EYE (20:21)
[2022-12-02] MEDS: FINASTERIDE 5 MG TABLET PO (20:21)
[2022-12-02] MEDS: rOPINIRole HCL 1 MG TABLET 3 MG PO (20:21)
[2022-12-02] MEDS: TAMSULOSIN HCL 0.4 MG CAPSULE 0.8 MG PO (20:21)
[2022-12-02] MEDS: ATORVASTATIN 40 MG TABLET PO (20:21)
[2022-12-02] MEDS: PRIMIDONE 25 MG TABLET 75 MG PO (20:21)
[2022-12-02] MEDS: INSULIN GLARGINE (*BKC) 100 UNITS/ML 55 UNITS SUB-Q (20:23)
[2022-12-02 20:46] LABS: Glucose Point of Care 188 mg/dl (65-105)
[2022-12-02] MEDS: traMADol HCL (*CRX) 50 MG TABLET 100 MG PO (21:57)
[2022-12-02] MEDS: MELATONIN 5 MG TABLET PO (21:58)
[2022-12-03] VITALS (8 sets, daily range): BP systolic 101–126; BP diastolic 57–73; PULSE 73–97; RESP 16–18; TEMP 36.4–36.8; O2SAT 94–95
[2022-12-03 04:49] LABS: Basophils Absolute Auto 0.1 K/mm3 (0.0-0.1); Basophils Percent Auto 0.7 % (0.2-1.2); Eosinophils Absolute Auto 0.3 K/mm3 (0-0.3); Eosinophils Percent Auto 2.8 % (0-4.4); Hematocrit 42.3 % (42.0-52.0); Hemoglobin 13.6 g/dL (14.0-18.0); Immature Granulocyte Absolute 0.35 K/mm3 (0.00-0.031); Immature Granulocyte Percent A 2.9 % (0-0.5); Lymphocytes Absolute Auto 1.91 K/mm3 (0.9-3.2); Lymphocytes Percent Auto 15.6 % (18.3-44.2); Mean Corpuscular HGB Conc 32.2 g/dl (32-36); Mean Corpuscular Hemoglobin 29.9 pg (26-34); Mean Platelet Volume 11.6 fl (7.4-10.4); Monocytes Percent Auto 8.3 % (2.6-8.5); Neutrophils Absolute Auto 8.5 K/mm3 (1.3-6.7); Neutrophils Percent Auto 69.7 % (45.5-73.1); Nucleated Red Blood Cells Perc 0.2 % (0.0-0.2); Platelet Count Result 149 k/mm3 (150-375); Red Blood Count 4.55 M/mm3 (4.6-6.20); Red Cell Distribution Width 16.9 % (11.5-14.5); White Blood Count 12.3 K/mm3 (4.5-10.0)
[2022-12-03 05:07] LABS: Anion Gap 11 mmol/L (8-16); Blood Urea Nitrogen 53 mg/dL (9-20); CRP 1.3 mg/dL (<1.0); Calcium 9.1 mg/dL (8.4-10.2); Carbon Dioxide 29 mmol/L (22-30); Chloride 98 mmol/L (98-107); Estimated CRCL calculation 55 ml/min; Estimated Glomerular Filt Rate 41; Glucose 167 mg/dL (65-110); Potassium 3.8 mmol/L (3.4-5.0); Sodium 138 mmol/L (137-145)
[2022-12-03] MEDS: LEVOTHYROXINE SODIUM 25 MCG TABLET PO (06:05)
[2022-12-03] MEDS: LEVOTHYROXINE SODIUM 112 MCG TABLET PO (06:05)
[2022-12-03] MEDS: traMADol HCL (*CRX) 50 MG TABLET 100 MG PO (07:56)
[2022-12-03] MEDS: PREGABALIN (*CRX) 75 MG CAPSULE PO ×3 (08:00→16:25)
[2022-12-03] MEDS: MAGNESIUM OXIDE 400 MG TABLET PO (08:00)
[2022-12-03] MEDS: ASPIRIN 81 MG ENTERIC TABLET PO (08:00)
[2022-12-03] MEDS: lisinopriL 2.5 MG TABLET PO (08:00)
[2022-12-03] MEDS: PRIMIDONE 50 MG TABLET PO (08:00)
[2022-12-03] MEDS: FUROSEMIDE 40 MG TABLET PO (08:00)
[2022-12-03] MEDS: DULoxetine HCL 60 MG CAPSULE.DR PO (08:00)
[2022-12-03] MEDS: ASCORBIC ACID 500 MG TABLET PO ×2 (08:00→16:25)
[2022-12-03] MEDS: POTASSIUM CHLORIDE 10 MEQ TABLET.ER PO (08:00)
[2022-12-03] MEDS: CHOLECALCIFEROL 1,000 UNITS TABLET 1000 UNITS PO (08:00)
[2022-12-03] MEDS: APIXABAN 5 MG TABLET PO (08:00)
[2022-12-03] MEDS: FERROUS GLUCONATE 324 MG TABLET PO (08:00)
[2022-12-03] MEDS: PANTOPRAZOLE 40 MG TABLET PO (08:00)
[2022-12-03] MEDS: BACLOFEN 5 MG TABLET PO ×2 (08:00→16:25)
[2022-12-03] MEDS: carvediloL 3.125 MG TABLET PO (08:01)
[2022-12-03] MEDS: EMPAGLIFLOZIN 25 MG TABLET PO (08:01)
[2022-12-03] MEDS: TRIAMCINOLONE ACET 0.1% CREAM 15 GM TUBE 1 APPLIC TOPICAL ×2 (08:01→16:25)
[2022-12-03] MEDS: AZELASTINE HCL NASAL 0.1% 137 MCG/SPR 30 ML BTL 1 SPRAY NASAL ×2 (08:01→16:25)
[2022-12-03 08:39] LABS: Glucose Point of Care 187 mg/dl (65-105)
[2022-12-03 11:51] LABS: Glucose Point of Care 255 mg/dl (65-105)
[2022-12-03] MEDS: INSULIN ASPART (*BKC) 100 UNITS/ML SUB-Q (12:02)
--- NOTE | 2022-12-03 12:10 | WPDNEUROLOGY ---
Neurology EEG Report General Information Date of Study: 12/01/22 TEST eeg DIAGNOSIS Syncope CONDITION OF RECORDING sleep EEG NUMBER [id number] CLINICAL HISTORY patient was brought in to hospital yesterday after losing consciousness. EEG DESCRIPTION Background rhythm consists of low-voltage 15 to 21 hertz per 2nd beta with waxing and waning low-voltage posterior alpha rhythm. Bilateral symmetrical sleep activity seen during sleep hyperventilation not done. Photic stimulation not done. Non paroxysmal. Nonfocal. Nonlateralizing. IMPRESSION No significant abnormalities noted. Clinical correlation recommended.
--- NOTE | 2022-12-03 13:05 | PM.DS ---
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 Chronic systolic (congestive) heart failure History of CVA Diabetes mellitus Neuropathy? Hypothyroidism Essential (primary) hypertension Restless legs syndrome DS: Discharge Diagnosis Discharge Diagnosis (1) Syncope due to orthostatic hypotension: Code(s): I95.1 - Orthostatic hypotension Status: Acute Assessment and Plan: Positive orthostatic vitals in ED. Treated with IV fluids and antihypertensives adjusted. Monitored Q shift orthostatic blood pressures Head CT - No acute intracranial abnormality and stable chronic right parietal lobe infarction. Patient has had a history of cervical neck fracture that was fused. facial and neck CT negative. carotid doppler without significant stenosis Echocardiogram with mild aortic stenosis, mild LV enlargement with systolic dysfunction and akinesis, EF 35%, EEG completed and did not acute findings suggesting seizure Prolactin level pending at discharge neurology consulted was greatly be appreciated. Attempt to de-escalate medications- decreased coreg and furosemide. 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 wound care consult was greatly be appreciated. continue silver gel ointment with dry gauze changed daily. wound culture demonstrates staph aureus growth. Wound with yellow slough to the wound base and clear, yellow discharge. No odor, surrounding erythema or purulent discharge. He is completing course of cefuroxime and will need 2 more doses after discharge. (3) Chronic systolic (congestive) heart failure: Code(s): I50.22 - Chronic systolic (congestive) heart failure Status: Acute Assessment and Plan: Chronic, not in acute exacerbation. echo shows mild LV enlargement, apical and septal akinesis, EF 35-40%, mild aortic stenosis and LA enlargement. decrease coreg and furosemide doses due to orthostasis. Stopped zaroxolyn due to orthostasis the patient has been inactive and chair bound. (4) History of CVA (cerebrovascular accident): Code(s): Z86.73 - Personal history of transient ischemic attack (TIA), and cerebral infarction without residual deficits Status: Chronic Assessment and Plan: continue Eliquis (5) Diabetes mellitus: Code(s): E11.9 - Type 2 diabetes mellitus without complications Status: Acute Assessment and Plan: Trulicity is non formulary. Accu-Cheks AC and HS with sliding scale insulin and hypoglycemic protocol. A1c 7.9% continued with Jardiance stable (6) Neuropathy: Code(s): G62.9 - Polyneuropathy, unspecified Status: Acute Assessment and Plan: Continue with Lyrica. (7) Hypothyroidism: Qualifiers: Hypothyroidism type: unspecified Qualified Code(s): E03.9 - Hypothyroidism, unspecified Code(s): E03.9 - Hypothyroidism, unspecified Status: Chronic Assessment and Plan: thyroid panel shows low TSH and normal free T4. Repeat thyroid panel in 4-6 weeks. continue with levothyroxine (8) Hyperlipidemia: Qualifiers: Hyperlipidemia type: mixed hyperlipidemia Qualified Code(s): E78.2 - Mixed hyperlipidemia Code(s): E78.5 - Hyperlipidemia, unspecified Status: Chronic Assessment and Plan: -continue with atorvastatin (9) Hypertension: Qualifiers: Hypertension type: primary hypertension Qualified Code(s): I10 - Essential (primary) hypertension Code(s): I10 - Essential (primary) hypertension Status: Chronic Assessment and Plan: chronic, now with orthostatic hypotension. Decreased coreg and furosemide doses. Stopped metolazo
[2022-12-03] MEDS: SILVERGEL (ELTA) 45 ML 1 APPLIC TOPICAL (14:14)
[2022-12-03 17:13] LABS: Glucose Point of Care 182 mg/dl (65-105)
[2022-12-06 04:40] LABS: Prolactin 8.6 ng/mL (***)
== END 2022-12-03 17:28 ==
LOC: ANHED 14:19 → ANH2MED 14:34
PROVIDERS: Nurse Practitioner; Nurse Practitioner Family; Admitting Provider Student in an Organized Health Care Education/Training Program; Emergency Provider Emergency Medicine; PCP Family Medicine; Visit Provider Student in an Organized Health Care Education/Training Program
DX: I95.1 Orthostatic hypotension (principal); L89.624 Pressure ulcer of left heel, stage 4; I25.10 Atherosclerotic heart disease of native coronary artery without angina pectoris; I50.22 Chronic systolic (congestive) heart failure; E78.5 Hyperlipidemia, unspecified; Z79.82 Long term (current) use of aspirin; Z95.1 Presence of aortocoronary bypass graft; I13.0 Hypertensive heart and chronic kidney disease with heart failure and stage 1 through stage 4 chronic kidney disease, or unspecified chronic kidney disease; E03.9 Hypothyroidism, unspecified; I25.2 Old myocardial infarction; Z87.891 Personal history of nicotine dependence; Z86.73 Personal history of transient ischemic attack (TIA), and cerebral infarction without residual deficits; E11.42 Type 2 diabetes mellitus with diabetic polyneuropathy; Z79.4 Long term (current) use of insulin; H40.9 Unspecified glaucoma; N40.0 Benign prostatic hyperplasia without lower urinary tract symptoms; N18.30 Chronic kidney disease, stage 3 unspecified; E11.22 Type 2 diabetes mellitus with diabetic chronic kidney disease; Z79.01 Long term (current) use of anticoagulants; G25.81 Restless legs syndrome; Z20.822 Contact with and (suspected) exposure to COVID-19
CPT/HCPCS: 36415; 70450; 70486; 71045; 72125; 73600; 80048; 80053; 81001; 82306; 82948; 83036; 83605; 83735; 84100; 84146; 84439; 84443; 84480; 84484; 85025; 85027; 86140; 87040; 87070; 87147; 87181; 87186; 87205; 87637; 93005; 93880; 93970; 95816; 96374; 97161; 97165; 99285; A9270; C8929; G0378; G0379; J1815; J7030; Q9957

== ENCOUNTER 2022-12-07 19:00 | Emergency (ER) | payer MEDICAID, SELFPAY ==
--- NOTE | ~2022-12-07 | XR_ITS ---
EXAMINATION: XR chest 1V portable DATE: 12/07/2022 19:46 INDICATION: Presyncope. TECHNIQUE: A single frontal view of the chest was obtained on 2 radiographs. COMPARISON: Chest single view 11/30/2022 FINDINGS: There is a small left pleural effusion. There are chronic airspace opacities at left lung b ase. No pneumothorax. The heart size is normal. Median sternotomy wires and mediastinal surgical clip s are seen, likely from prior coronary artery bypass grafting. IMPRESSION: 1. Stable chronic small left pleural effusion. 2. Stable chronic airspace opacities at left lung base, consistent with rounded atelectasis. Reviewed, dictated and finalized at location [facility]. [facility]
[2022-12-07 19:18] VITALS: PULSE 85
--- NOTE | 2022-12-07 19:28 | ECG_ITS ---
Measurements Intervals [place] Rate: 77 P: 19 [place]: 151 QRS: -37 QRSD: 128 T: 114 QT: 416 QTc: 473 Interpretive Statements SINUS RHYTHM LEFT VENTRICULAR HYPERTROPHY AND ST-T CHANGE [VOLTAGE CRITERIA PLUS ST/T ABNORMALITY] INFERIOR MYOCARDIAL INFARCTION , OF INDETERMINATE AGE [40+ ms Q WAVE AND/OR ST/T ABNORMALITY IN II/aVF] POSSIBLE ANTEROSEPTAL MYOCARDIAL INFARCTION , OF INDETERMINATE AGE [30 ms Q WAVE IN V1- V4] COMPARED TO ECG 11/30/2022 12:43:17 NO SIGNIFICANT DIFFERENCE Electronically Signed On 12-08-2022 14:40:57 HOUSEPERSON by Bayron Rojas M.D.
[2022-12-07 19:54] LABS: Glucose Point of Care 209 mg/dl (65-105)
[2022-12-07 20:00] LABS: Appearance Urine Clear (Clear); Bilirubin Urine Negative (Negative); Blood Urine Negative (Negative); Glucose Urine UA 2+ mg/dL (Negative); Ketones Urine Negative (Negative); Leukocyte Esterase Ur Negative LEU/UL (Negative); Nitrate Urine Negative (Negative); Protein Urine Trace mg/dL (Negative); Urobilinogen Urine 0.2 mg/dL (<2.0); pH Urine 5.5 (5.0-9.0)
[2022-12-07 20:06] LABS: Alanine Aminotransferase 17 U/L (6-50); Albumin Level 3.3 g/dL (3.5-5.1); Alkaline Phosphatase 115 U/L (38-126); Anion Gap 7 mmol/L (8-16); Aspartate Amino Transferase 20 U/L (17-59); Bilirubin,Total 0.4 mg/dL (0.2-1.3); Blood Urea Nitrogen 44 mg/dL (9-20); Calcium 6.9 mg/dL (8.4-10.2); Carbon Dioxide 24 mmol/L (22-30); Chloride 108 mmol/L (98-107); Estimated CRCL calculation 62 ml/min; Estimated Glomerular Filt Rate 56; Glucose 190 mg/dL (65-110); Magnesium 1.8 mg/dL (1.6-2.3); Potassium 3.7 mmol/L (3.4-5.0); Sodium 139 mmol/L (137-145)
[2022-12-07 20:09] LABS: INR 1.2; Prothrombin Time 14.7 Seconds (11.1-14.7)
[2022-12-07 20:11] LABS: RBC Urine 0-2 /hpf (0-2); WBC Urine 0-3 /hpf
[2022-12-07 20:17] LABS: Add Urine Microscopic? YES; Color Urine Light Yellow (Yellow); Troponin I < 0.012 ng/mL (0.000-0.034)
[2022-12-07 20:20] LABS: NT Pro B Type Natriuretic Pept 1810 pg/mL (19.9-100)
--- NOTE | 2022-12-07 20:30 | PC.NURSE ---
Diabetic ulcer to heal of L foot cleaned, dried, covered with absorbant dressing and wrapped with kerlex for protection.
[2022-12-07 20:53] LABS: Basophils Absolute Auto 0.1 K/mm3 (0.0-0.1); Basophils Percent Auto 0.9 % (0.2-1.2); Eosinophils Absolute Auto 0.4 K/mm3 (0-0.3); Eosinophils Percent Auto 3.8 % (0-4.4); Hematocrit 42.2 % (42.0-52.0); Hemoglobin 13.5 g/dL (14.0-18.0); Immature Granulocyte Percent A 4.1 % (0-0.5); Lymphocytes Absolute Auto 1.41 K/mm3 (0.9-3.2); Lymphocytes Percent Auto 14.5 % (18.3-44.2); Mean Corpuscular Hemoglobin 30.1 pg (26-34); Mean Corpuscular Volume 94.2 fl (80-100); Mean Platelet Volume 11.7 fl (7.4-10.4); Monocytes Absolute Auto 0.9 K/mm3 (0.1-0.6); Monocytes Percent Auto 8.9 % (2.6-8.5); Neutrophils Absolute Auto 6.6 K/mm3 (1.3-6.7); Neutrophils Percent Auto 67.8 % (45.5-73.1); Platelet Count Result 150 k/mm3 (150-375); Red Blood Count 4.48 M/mm3 (4.6-6.20); Red Cell Distribution Width 17.1 % (11.5-14.5); White Blood Count 9.8 K/mm3 (4.5-10.0)
[2022-12-07 20:53] LABS: D Dimer 0.54 ug/mL (<0.48)
[2022-12-07 20:55] LABS: Influenza A QL RT-PCR Negative (Negative); Influenza B QL RT-PCR Negative (Negative); RSV RNA, RT-PCR Negative (Negative); SARS-CoV-2 RNA PCR Negative
[2022-12-07 21:46] VITALS: PULSE 78; RESP 19
[2022-12-07 21:48] VITALS: BP 112/61; PULSE 78; RESP 15
[2022-12-07 21:49] VITALS: BP 134/86; PULSE 78; RESP 16; O2SAT 97
[2022-12-07 22:01] VITALS: BP 136/62; PULSE 78
[2022-12-07 22:02] VITALS: BP 115/57; PULSE 80
--- NOTE | 2022-12-07 22:15 | ED.SYNCOPE ---
HPI - Syncope General Chief Complaint: Syncope Stated Complaint: syncope, lethargy, weakness Time Seen by Provider: 12/07/22 19:28 History of Present Illness HPI narrative: Patient states that [facility] [place] [facility] [place] [facility] when he started feeling very tired, and felt like he may pass out, he also was feeling some tremors in his left upper extremity. He has a history of an old stroke on this extremity, and was admitted recently for the same issue a week ago; just discharged 2 days ago and states his symptoms have been persistent. States that he has been having the symptoms for quite a while now and he is quite frustrated about it. Related Data Home Medications Medication Instructions Recorded Confirmed aspirin 81 mg tablet,delayed 81 mg PO DAILY 03/30/21 11/30/22 release atorvastatin 40 mg tablet 40 mg PO HS 03/30/21 11/30/22 biotin 5,000 mcg disintegrating 5,000 mcg PO DAILY 03/30/21 11/30/22 tablet bisacodyl 10 mg rectal suppository 10 mg RECTAL DAILY PRN Constipation 03/30/21 11/30/22 insulin lispro 100 unit/mL 3 unit subcut AC 03/30/21 11/30/22 subcutaneous pen levothyroxine 137 mcg tablet 137 mcg PO QAM 03/30/21 11/30/22 pantoprazole 40 mg tablet,delayed 40 mg PO DAILY 03/30/21 11/30/22 release ropinirole 1 mg tablet 3 mg PO HS 03/30/21 11/30/22 tamsulosin 0.4 mg capsule 0.8 mg PO HS 03/30/21 11/30/22 apixaban 5 mg tablet (Eliquis) 5 mg PO BID 06/01/21 11/30/22 ascorbic acid (vitamin C) 500 mg 500 mg PO BID 01/18/22 11/30/22 capsule duloxetine 60 mg capsule,delayed 60 mg PO DAILY 01/18/22 11/30/22 release magnesium hydroxide 400 mg/5 mL 30 ml PO HS PRN Constipation 01/18/22 11/30/22 oral suspension (Milk of Magnesia) polyethylene glycol 3350 17 gram 17 g PO QAM PRN Constipation 01/18/22 11/30/22 oral powder packet (Miralax) Multivitamin-Minerals 1 tab-cap PO DAILY 06/09/22 11/30/22 baclofen 5 mg tablet 5 mg PO TID 06/09/22 11/30/22 dulaglutide 0.75 mg/0.5 mL 0.75 mg subcut WEEKLY 06/09/22 11/30/22 subcutaneous pen injector (Trulicity) empagliflozin 25 mg tablet 25 mg PO DAILY 06/09/22 11/30/22 (Jardiance) ferrous gluconate 324 mg (38 mg 324 mg PO DAILY 06/09/22 11/30/22 iron) tablet insulin glargine-yfgn 100 unit/mL 55 unit subcut HS 06/09/22 11/30/22 subcutaneous solution ipratropium 0.5 mg-albuterol 3 mg 3 ml inhalation Q6H PRN Shortness 06/09/22 11/30/22 (2.5 mg base)/3 mL nebulization Of Breath soln latanoprost 0.005 % eye drops 1 drp EACH EYE HS 06/09/22 11/30/22 nystatin 100,000 unit/gram topical 1 applic topical BID PRN Fungal 06/09/22 11/30/22 powder (Nyamy) rash potassium chloride 10 mEq 10 meq PO DAILY 06/09/22 11/30/22 capsule,extended release sodium phosphates 19 gram-7 118 ml RECTAL DAILY PRN 06/09/22 11/30/22 gram/118 mL enema (Fleet Enema) Constipation triamcinolone acetonide 0.1 % 1 applic topical BID 06/09/22 11/30/22 topical cream Arginald Packet 1 packet PO DAILY 11/30/22 11/30/22 silver chloride 1 ea topical DAILY 11/30/22 11/30/22 Allergies Allergy/AdvReac Type Severity Reaction Status Date / Time No Known Allergies Allergy Unknown Verified 06/09/22 08:20 Review of Systems Review of Systems: CONST: No fever. HEENT: No sore throat C/V: No chest pain RESP: No cough GI: No nausea or vomiting : No dysuria. M/S: No joint pain. SKIN: No rash. NEURO: Shakes PSYCH: [No depression] PMFSH Past Medical History Medical History Benign prostatic hyperplasia Chronic anemia CKD (chronic kidney disease) stage 3, GFR 30-59 ml/min Colon cancer screening Combined systolic and diastolic congestive heart failure Coronary artery disease Status post three-vessel bypass and left ventricular aneurysm repair in February 2019 at [facility]. Current use of clinical counselor anticoagulation Depression Glaucoma Gout History of cerebrovascular accident (~01/2019) Post CABG right parietal infarction wi
== END 2022-12-08 00:04 ==
PROVIDERS: Emergency Provider Emergency Medicine; PCP Family Medicine
DX: R55 Syncope and collapse (principal); R25.1 Tremor, unspecified; Z20.822 Contact with and (suspected) exposure to COVID-19; I13.0 Hypertensive heart and chronic kidney disease with heart failure and stage 1 through stage 4 chronic kidney disease, or unspecified chronic kidney disease; E11.22 Type 2 diabetes mellitus with diabetic chronic kidney disease; N18.30 Chronic kidney disease, stage 3 unspecified; I50.40 Unspecified combined systolic (congestive) and diastolic (congestive) heart failure; N40.0 Benign prostatic hyperplasia without lower urinary tract symptoms; D64.9 Anemia, unspecified; I25.10 Atherosclerotic heart disease of native coronary artery without angina pectoris; H40.9 Unspecified glaucoma; I69.954 Hemiplegia and hemiparesis following unspecified cerebrovascular disease affecting left non-dominant side; E78.5 Hyperlipidemia, unspecified; I25.5 Ischemic cardiomyopathy; I25.2 Old myocardial infarction; M10.9 Gout, unspecified; Z95.1 Presence of aortocoronary bypass graft; Z98.1 Arthrodesis status; Z87.891 Personal history of nicotine dependence; Z79.4 Long term (current) use of insulin; Z79.82 Long term (current) use of aspirin; Z79.01 Long term (current) use of anticoagulants; Z79.84 Long term (current) use of oral hypoglycemic drugs; I51.7 Cardiomegaly
CPT/HCPCS: 36415; 71045; 80053; 81001; 82948; 83735; 83880; 84484; 85025; 85380; 85610; 87637; 93005; 99284

== ENCOUNTER 2022-12-28 14:03 | Inpatient (IN) | payer MEDICARE, MEDICAID, SELFPAY ==
[2022-12-28] VITALS (102 sets, daily range): BP systolic 109–183; BP diastolic 58–140; PULSE 78–118; RESP 12–26; TEMP 36.2–36.8; O2SAT 93–100
--- NOTE | ~2022-12-28 | MR_ITS ---
EXAMINATION: MR brain/brain stem wo/w con DATE: 01/03/2023 11:48 INDICATION: Seizure. TECHNIQUE: Magnetic resonance imaging (MRI) of the brain and brainstem was performed without and with 20 mL MultiHance intravenous contrast. COMPARISON: Brain MRI 08/18/2019, head CT 12/28/2022 FINDINGS: There is an old infarct involving the right frontal temporal parietal occipital region and posterior right insula. Areas of decreased T2*weighted signal intensity in the old infarct correlate with calcifications by CT. Increased T2-weighted signal intensity extending from the old infarct into the posterior limb right internal capsule and right thalamus may be chronic Wallerian degeneration. There are two foci of decreased T2*-weighted signal intensity in right frontal lobe, likely old micro hemorrhages. There are scattered areas of nonspecific increased T2-weighted signal intensity in the c erebral white matter, which is within normal limits for the patient's age. There is no acute ischemic infarct or abnormal mass lesion. There is ex vacuo dilatation of trigone of right lateral ventricle. The orbits are normal. The paranasal sinuses are clear. The mastoid air cells are normal. IMPRESSION: 1. Old infarct in the expected distribution of the right middle cerebral artery. Reviewed, dictated and finalized at location A. Y RAIL TRAIN OPERATOR IMPRESSION: 1. Old infarct in the expected distribution of the right middle cerebral artery .
--- NOTE | ~2022-12-28 | CT_ITS ---
EXAMINATION: CT brain wo con DATE: 12/28/2022 15:49 INDICATION: Seizure. Altered mental status. TECHNIQUE: Computed tomography (CT) of the head was performed without intravenous contrast. Sagittal and coronal reconstructions were performed. Automated exposure control and iterative reconstruction t echnique were employed. The dose-length product was 756.67 mGy-cm. COMPARISON: head CT dated 11/30/2022 FINDINGS: Old infarct in the right parietal lobe extending to involve the distal regions of the right occipital lobe and posterior right frontal and temporal lobes and insula, the expected vascular distribution o f the right middle cerebral artery. No acute intracranial hemorrhage, acute infarction or abnormal ex tra axial fluid collection. Expected dilation of the occipital horn of the right lateral ventricle. V entricles are otherwise normal and symmetric. No mass/mass effect. The orbits, paranasal sinuses and mastoid air cells are normal. . IMPRESSION: 1. No acute intracranial process. 2. Stable appearance of an old infarct in the expected vascular distribution of the right middle cere bral artery. Reviewed, dictated and finalized at location A. HER OPERATOR IMPRESSION: 1. No acute intracranial process. 2. Stable appearance of an old infarct in the expected vascular distribution of the right middle cerebral artery.
--- NOTE | ~2022-12-28 | US_ITS ---
EXAMINATION: US carotid duplex BI DATE: 12/28/2022 22:35 INDICATION: Syncope. Seizure. TECHNIQUE: Grayscale, color Doppler, and pulsed Doppler images of the cervical carotid arteries were obtained. The degree of vessel stenosis is placed in one of the following categories: normal, <50%, 5 0-69%, >=70% but less than near-occlusion, near-occlusion, or total occlusion. Note that percent sten osis relative to normal distal artery lumen diameter is indirectly measured from velocity measurement s as described by Kale, et al. Radiology 2003; [id number]:340-346. COMPARISON: ultrasound 11/30/22 FINDINGS: RIGHT: The right common carotid artery (CCA) peak systolic velocity (PSV) is 55 cm/s. The right internal car otid artery (ICA) PSV is 58 cm/s. The right ICA end-diastolic velocity (EDV) is 13 cm/s. The right IC A/CCA PSV ratio is 1.0. Grayscale and color Doppler images yield an estimate of <50% diameter reducti on from plaque in the ICA. There is antegrade flow in the right vertebral artery. LEFT: The left CCA PSV is 45 cm/s. The left ICA PSV is 92 cm/s. The left ICA EDV is 24 cm/s. The left ICA/C CA PSV ratio is 2.1. Grayscale and color Doppler images yield an estimate of <50% diameter reduction from plaque in the ICA. There is antegrade flow in the left vertebral artery. IMPRESSION: 1. <50% stenosis in the right internal carotid artery. 2. <50% stenosis in the left internal carotid artery. Reviewed, dictated and finalized at location A. HER WORKER
--- NOTE | ~2022-12-28 | XR_ITS ---
XR chest 1V portable 12/28/2022 16:12 Indication: Altered mental status. Seizures. Procedure: AP portable chest Comparison: Comparison to multiple prior studies sequentially, with oldest reviewed study dated 05/24. Findings: Status post median sternotomy for CABG. Cardiomegaly. Mild interstitial edema. No significa nt effusion or pneumothorax. No acute osseous abnormality. Impression: 1: Cardiomegaly with mild interstitial edema. Reviewed, dictated and finalized at location A. MOTIVE PAINTER HELPER Impression: 1: Cardiomegaly with mild interstitial edema.
--- NOTE | ~2022-12-28 | XR_ITS ---
Supine portable view of the abdomen Clinical history: NG tube placement Findings: NG tube is in satisfactory position. Bowel gas pattern is nonspecific. No evidence for obst ruction or free air. No abnormal mass lesion or calcification is seen. Osseous structures are intact. Impression: NG tube in satisfactory position. Reviewed, dictated and finalized at [facility]. STRIPPER Impression: NG tube in satisfactory position.
--- NOTE | ~2022-12-28 | XR_ITS ---
Portable chest x-ray Comparison: 12/31/2022 Clinical History: Respiratory failure Findings: Endotracheal tube and NG tube are in satisfactory positions. There is probable mild pulmon rene edema pattern. Small left pleural effusion present. Cardiomediastinal silhouette is stable. Bone s and soft tissues are unremarkable. Impression: Mild pulmonary edema pattern with small left pleural effusion. Support tubes, as above. Reviewed, dictated and finalized at location . IRER GENERAL Impression: Mild pulmonary edema pattern with small left pleural effusion. Support tubes, as above.
--- NOTE | ~2022-12-28 | XR_ITS ---
Portable chest x-ray Comparison: 12/28/2022 at 4:10 PM Clinical History: Tube placement Findings: Endotracheal tube and NG tube are in satisfactory use. Probable minimal left pleural effus ion. Possible minimal central congestive changes. Cardiomediastinal silhouette is stable. Bones and soft tissues are unremarkable. Impression: Support tubes, as above. Minimal left pleural effusion and possible minimal central congestive changes. Reviewed, dictated and finalized at location M. M POWER PLANT OPERATOR Impression: Support tubes, as above. Minimal left pleural effusion and possible minimal central congestive changes.
--- NOTE | ~2022-12-28 | XR_ITS ---
EXAMINATION: XR abdomen NG/feed tube insert DATE: 12/29/2022 17:27 INDICATION: Nasogastric tube placement. TECHNIQUE: An upright view of the abdomen was obtained. COMPARISON: Abdomen radiograph 12/29/2022 FINDINGS: The lower abdomen and right lateral aspect of the abdomen are excluded. The nasogastric tub e tip is in the stomach. Median sternotomy wires and mediastinal surgical clips are seen, likely from prior coronary artery bypass grafting. IMPRESSION: 1. Nasogastric tube tip in the stomach. Reviewed, dictated and finalized at location A. ET NEWS REPORTER
--- NOTE | ~2022-12-28 | XR_ITS ---
Portable chest x-ray Comparison: 01/03/2023 Clinical History: Respiratory failure Findings: There is central congestive change and probable mild pulmonary edema. Minimal left pleural effusion present. Cardiomediastinal silhouette is stable. Bones and soft tissues are unremarkable. Impression: Central congestive change with mild pulmonary edema and minimal left pleural effusion. Reviewed, dictated and finalized at [facility]. ICAL MASSAGE THERAPIST Impression: Central congestive change with mild pulmonary edema and minimal left pleural ef fusion.
--- NOTE | ~2022-12-28 | XR_ITS ---
XR chest 1V portable DATE: 12/31/2022 06:31 INDICATION: Acute respiratory failure TECHNIQUE: Portable AP chest on December 31, 2022 at 0518 hours COMPARISON: December 30, 2022 portable AP chest at 0513 hours FINDINGS: ET and NG tubes in satisfactory position. No central lines. Relatively stable left lower lung infiltrate and/atelectasis, particularly at the left lung base. Sma ll left pleural effusion is suggested. IMPRESSION: No change since December 30 Reviewed, dictated and finalized at location A. ING SAW OPERATOR IMPRESSION: No change since December 30
--- NOTE | ~2022-12-28 | XR_ITS ---
Portable chest x-ray Comparison: 01/01/2023 Clinical History: Respiratory failure Findings: Probable mild central congestive changes and minimal left pleural effusion. Cardiomediast inal silhouette is stable, status post CABG. Bones and soft tissues are unremarkable. Impression: Probable mild central congestive changes and minimal left pleural effusion. Reviewed, dictated and finalized at [facility]. HEAD CRANE TRUCK LOADER Impression: Probable mild central congestive changes and minimal left pleural effusion.
--- NOTE | ~2022-12-28 | XR_ITS ---
Portable chest x-ray Comparison: 01/02/2023 Clinical History: Acute respiratory failure Findings: Probable minimal central congestive changes are noted. No definite pleural effusion. Card iomediastinal silhouette is stable. Bones and soft tissues are unremarkable. Impression: Probable minimal central congestive changes. Reviewed, dictated and finalized at [facility]. ENT CASE COORDINATOR Impression: Probable minimal central congestive changes.
--- NOTE | ~2022-12-28 | XR_ITS ---
XR chest 1V portable DATE: 12/30/2022 06:00 INDICATION: Intubation TECHNIQUE: Portable AP chest of December 30, 2022 at 0513 hours COMPARISON: December 28, 2022 portable AP chest at 2354 hours FINDINGS: ET and NG tubes in expected position. Status post sternotomy. There is infiltrate and/atelectasis at the left lower lung, particularly left lung base and mild left pleural effusion. IMPRESSION: Left lower lung infiltrate and/atelectasis and mild left pleural effusion Reviewed, dictated and finalized at location A. CONDUCTOR PROCESSING GROUP LEADER IMPRESSION: Left lower lung infiltrate and/atelectasis and mild left pleural ef fusion
--- NOTE | 2022-12-28 14:40 | ED.SEIZURE ---
HPI - Seizure General Chief Complaint: Seizure Stated Complaint: unresponsive with seizure like activity Time Seen by Provider: 12/28/22 14:40 Source: EMS Mode of arrival: EMS Limitations: clinical condition History of Present Illness HPI Narrative: Patient is a 62-year-old male with a history of CVA with left-sided hemiplegia and hemiparesis, type 2 diabetes, hypertension, hyperlipidemia, with chronic embolism of right upper extremity, left upper extremity, atrial fibrillation, essential tremor, presenting to the emergency department for evaluation of seizure-like activity. Per EMS report, patient was noted to have tonic-clonic activity of the bilateral upper extremities. Patient had 1 short episode during transport which resolved without use of Ativan. Patient blood sugar was greater than 100. Patient transferred here in stable condition. The time of my assessment, called to bedside as patient was having tonic-clonic activity of the right upper and lower extremity. Patient was nonverbal at this time. He was tachycardic. Not hypoxic. Glucose 187 at time of recheck. I reviewed the patient's chart, no history of known seizure. He is on chronic anticoagulation per review. Patient is full code per review. Related Data Home Medications Medication Instructions Recorded Confirmed aspirin 81 mg tablet,delayed 81 mg PO DAILY 03/30/21 11/30/22 release atorvastatin 40 mg tablet 40 mg PO HS 03/30/21 11/30/22 biotin 5,000 mcg disintegrating 5,000 mcg PO DAILY 03/30/21 11/30/22 tablet bisacodyl 10 mg rectal suppository 10 mg RECTAL DAILY PRN Constipation 03/30/21 11/30/22 insulin lispro 100 unit/mL 3 unit subcut AC 03/30/21 11/30/22 subcutaneous pen levothyroxine 137 mcg tablet 137 mcg PO QAM 03/30/21 11/30/22 pantoprazole 40 mg tablet,delayed 40 mg PO DAILY 03/30/21 11/30/22 release ropinirole 1 mg tablet 3 mg PO HS 03/30/21 11/30/22 tamsulosin 0.4 mg capsule 0.8 mg PO HS 03/30/21 11/30/22 apixaban 5 mg tablet (Eliquis) 5 mg PO BID 06/01/21 11/30/22 ascorbic acid (vitamin C) 500 mg 500 mg PO BID 01/18/22 11/30/22 capsule duloxetine 60 mg capsule,delayed 60 mg PO DAILY 01/18/22 11/30/22 release magnesium hydroxide 400 mg/5 mL 30 ml PO HS PRN Constipation 01/18/22 11/30/22 oral suspension (Milk of Magnesia) polyethylene glycol 3350 17 gram 17 g PO QAM PRN Constipation 01/18/22 11/30/22 oral powder packet (Miralax) Multivitamin-Minerals 1 tab-cap PO DAILY 06/09/22 11/30/22 baclofen 5 mg tablet 5 mg PO TID 06/09/22 11/30/22 dulaglutide 0.75 mg/0.5 mL 0.75 mg subcut WEEKLY 06/09/22 11/30/22 subcutaneous pen injector (Trulicity) empagliflozin 25 mg tablet 25 mg PO DAILY 06/09/22 11/30/22 (Jardiance) ferrous gluconate 324 mg (38 mg 324 mg PO DAILY 06/09/22 11/30/22 iron) tablet insulin glargine-yfgn 100 unit/mL 55 unit subcut HS 06/09/22 11/30/22 subcutaneous solution ipratropium 0.5 mg-albuterol 3 mg 3 ml inhalation Q6H PRN Shortness 06/09/22 11/30/22 (2.5 mg base)/3 mL nebulization Of Breath soln latanoprost 0.005 % eye drops 1 drp EACH EYE HS 06/09/22 11/30/22 nystatin 100,000 unit/gram topical 1 applic topical BID PRN Fungal 06/09/22 11/30/22 powder (Nyamyc) rash potassium chloride 10 mEq 10 meq PO DAILY 06/09/22 11/30/22 capsule,extended release sodium phosphates 19 gram-7 118 ml RECTAL DAILY PRN 06/09/22 11/30/22 gram/118 mL enema (Fleet Enema) Constipation triamcinolone acetonide 0.1 % 1 applic topical BID 06/09/22 11/30/22 topical cream Arginald Packet 1 packet PO DAILY 11/30/22 11/30/22 silver chloride 1 ea topical DAILY 11/30/22 11/30/22 Allergies Allergy/AdvReac Type Severity Reaction Status Date / Time No Known Allergies Allergy Unknown Verified 12/28/22 14:24 Review of Systems Review of Systems: ROS unobtainable: Yes unobtainable due to mental status PMFSH Past Medical History Medical History Benign prostatic hype
--- NOTE | 2022-12-28 14:43 | ECG_ITS ---
Measurements Intervals [place] Rate: 87 P: 32 [place]: 154 QRS: -42 QRSD: 125 T: 108 QT: 392 QTc: 473 Interpretive Statements SINUS RHYTHM POSSIBLE LEFT ATRIAL ENLARGEMENT [-0.1mV P-WAVE IN V1/V2] LEFT VENTRICULAR HYPERTROPHY AND ST-T CHANGE [VOLTAGE CRITERIA PLUS ST/T ABNORMALITY] INFERIOR MYOCARDIAL INFARCTION , OF INDETERMINATE AGE [40+ ms Q WAVE AND/OR ST/T ABNORMALITY IN II/aVF] POSSIBLE ANTEROSEPTAL MYOCARDIAL INFARCTION , OF INDETERMINATE AGE [30 ms Q WAVE IN V1-V4] ABNORMAL ECG COMPARED TO ECG 12/07/2022 19:38:49 NO SIGNIFICANT CHANGES Electronically Signed On 12-28-2022 15:12:17 DESKTOP PUBLISHING SPECIALIST by Benjamin Benitez M.D.
[2022-12-28] MEDS: LORazepam INJ (*CRX) 2 MG/ML VIAL IV PUSH ×3 (15:20→23:07)
[2022-12-28 15:29] LABS: Glucose Point of Care 187 mg/dl (65-105)
[2022-12-28] MEDS: LORazepam INJ (*CRX) 2 MG/ML VIAL (15:31)
[2022-12-28 15:32] LABS: Basophils Absolute Auto 0.1 K/mm3 (0.0-0.1); Eosinophils Absolute Auto 0.3 K/mm3 (0-0.3); Eosinophils Percent Auto 3.4 % (0-4.4); Hematocrit 42.5 % (42.0-52.0); Immature Granulocyte Absolute 0.28 K/mm3 (0.00-0.031); Immature Granulocyte Percent A 2.8 % (0-0.5); Immature Platelet Fraction Pct 4.2 % (0.9-11.2); Lymphocytes Absolute Auto 1.18 K/mm3 (0.9-3.2); Mean Corpuscular HGB Conc 32.9 g/dl (32-36); Mean Corpuscular Hemoglobin 30.4 pg (26-34); Mean Corpuscular Volume 92.4 fl (80-100); Mean Platelet Volume 11.9 fl (7.4-10.4); Monocytes Absolute Auto 0.7 K/mm3 (0.1-0.6); Monocytes Percent Auto 7.5 % (2.6-8.5); Neutrophils Absolute Auto 7.2 K/mm3 (1.3-6.7); Neutrophils Percent Auto 73.3 % (45.5-73.1); Platelet Count Result 140 k/mm3 (150-375); Red Cell Distribution Width 16.2 % (11.5-14.5); White Blood Count 9.9 K/mm3 (4.5-10.0)
[2022-12-28 15:33] LABS: Appearance Urine Clear (Clear); Bilirubin Urine Negative (Negative); Blood Urine Negative (Negative); Color Urine Yellow (Yellow); Glucose Urine UA 3+ mg/dL (Negative); Ketones Urine Negative (Negative); Leukocyte Esterase Ur Negative LEU/UL (Negative); Nitrate Urine Negative (Negative); Protein Urine 1+ mg/dL (Negative); Urobilinogen Urine 0.2 mg/dL (<2.0); pH Urine 5.5 (5.0-9.0)
[2022-12-28 15:39] LABS: RBC Urine 0-2 /hpf (0-2); WBC Urine 0-3 /hpf
[2022-12-28 15:41] LABS: Add Urine Microscopic? YES
[2022-12-28 15:42] LABS: Lactic Acid Reflex 1.1 mmol/L (0.7-2.0)
[2022-12-28 15:43] LABS: Alanine Aminotransferase 21 U/L (6-50); Albumin Level 4.2 g/dL (3.5-5.1); Alkaline Phosphatase 134 U/L (38-126); Anion Gap 6 mmol/L (8-16); Aspartate Amino Transferase 24 U/L (17-59); Bilirubin,Total 0.5 mg/dL (0.2-1.3); Blood Urea Nitrogen 39 mg/dL (9-20); Calcium 8.6 mg/dL (8.4-10.2); Carbon Dioxide 24 mmol/L (22-30); Chloride 106 mmol/L (98-107); Estimated CRCL calculation 70 ml/min; Estimated Glomerular Filt Rate 56; Glucose 168 mg/dL (65-110); Potassium 4.1 mmol/L (3.4-5.0); Sodium 136 mmol/L (137-145)
[2022-12-28 15:52] LABS: Amphetamine Screen Urine Negative (Negative); Barbiturate Screen Urine Positive (Negative); Benzodiazepines Screen Urine Negative (Negative); Cannabinoid Screen Urine Negative (Negative); Cocaine Screen Urine Negative (Negative); Methadone Screen Urine Negative (Negative); Opiate Screen Urine Negative (Negative); Phencyclidine Screen Urine Negative (Negative)
[2022-12-28] MEDS: levETIRAcetam 1000MG/NACL100ML 1,000 MG/100 ML BAG 400 MG IVPB (15:59)
--- NOTE | 2022-12-28 16:14 | PC.NURSE ---
Pt transferred to room 3 for end title CO2 monitoring. Sleeping, VSS. 98% on room air, HR 88, RR 18, BP 144/73. Seizure pads on bed, Pt laying on left side
[2022-12-28 16:17] LABS: Troponin I < 0.012 ng/mL (0.000-0.034)
[2022-12-28 16:46] LABS: Alveolar/Arterial O2 Gradient 52.4 mmHg; Carboxyhemoglobin 1.5 % THb (0-2.0); Fractional Inspired Oxygen 28 %; HCO3 ABG 23.4 mEq/l (22.0-26.0); Oxygen Content ABG 18.8 %vol (16.0-22.0); Oxygen Saturation ABG 96.4 % (95.0-100.0); PCO2 ABG 46.5 mmHg (35.0-45.0); PO2 ABG 92.4 mmHg (80.0-100.0); Reduced Hemoglobin 3.5 %THb (0-5.0); pH ABG 7.319 (7.350-7.450)
[2022-12-28 16:47] LABS: Device NASAL CANNULA; Modified Allen's Test Unable to perform; Site Drawn RIGHT RADIAL
[2022-12-28 16:56] LABS: Creatine Kinase 81 U/L (55-170); Procalcitonin 0.1 ng/mL
[2022-12-28 17:19] LABS: Influenza A QL RT-PCR Negative (Negative); Influenza B QL RT-PCR Negative (Negative); RSV RNA, RT-PCR Negative (Negative); SARS-CoV-2 RNA PCR Negative
--- NOTE | 2022-12-28 18:09 | PC.NURSE ---
Clarified with Angie Tavares to be scheduled every 12 hours. Not due at this time.
--- NOTE | 2022-12-28 18:31 | PM.IMHP ---
H&P: HPI History of Present Illness Date/Time: 12/28/22 18:31 Chief Complaint: Seizure Narrative: This is a 62-year-old male patient who comes from [facility]. The patient is in rehab but there for a large left heel wound. He is diabetic. He has no prior history of having a seizure. He also has a history of CVA and he is bed bound and wheelchair bound. The patient has had her a surgical debridement on 06/10/2022. The patient has a history of left-sided hemo plegia and hemo paresis. The patient came to the emergency room to be evaluated for seizure-like activity. The patient was noted to have tonic clonic activity of the bilateral upper extremities. The patient had a short episode during transport which resolved without the use of Ativan. The patient had a blood sugar that was greater than 100. At the time of assessment the he per ED provider the patient was having a tonic clonic activity of right upper and lower extremity. Patient was nonverbal at the time. He was very tachycardic but not hypoxic. Neurology has been consulted. Oxygen has been applied to the patient. The patient was given 6 mg of Ativan in the emergency room. The patient was lethargic when I assessed him. The patient was started on Keppra in the emergency room. The patient is being admitted to inpatient status date of service of 12/28/2022. Review of Systems Review of Systems: See HPI All systems reviewed & are unremarkable except as noted in HPI and below Constitutional: Constitutional: Reports as per HPI and Reports no additional constitutional complaints Eyes: Eyes: Reports as per HPI and Reports no additional eye complaints ENT: Reports system reviewed and no additional complaints, except as documented and Reports Normal hearing present Cardiovascular: Cardiovascular: Reports no additional cardiovascular complaints Respiratory: Respiratory: Reports no additional respiratory complaints and Reports no additional respiratory complaints Gastrointestinal: Gastrointestinal: Reports as per HPI and Reports no additional gastrointestinal complaints Musculoskeletal: Musculoskeletal: Reports no additional musculoskeletal complaints Integumentary/Breasts: Skin/Breast: Reports system reviewed and no additional complaints, except as docu and Reports as per HPI Neurologic: Reports system reviewed and no additional complaints, except as documented, Reports as per HPI and Reports Normal hearing present Psychiatric: Psychiatric: Reports no additional psychiatric complaints and Reports as per HPI Endocrine: Endocrine: Reports no additional endocrine complaints Hematologic/Lymphatic: Hematologic/Lymphatic: Reports no additional hematologic/lymphatic complaints Allergic/Immunologic: Allergic/Immunologic: Reports no additional allergic/immunologic complaints [facility] Past Medical History Medical History Benign prostatic hyperplasia Chronic anemia CKD (chronic kidney disease) stage 3, GFR 30-59 ml/min Colon cancer screening Combined systolic and diastolic congestive heart failure Coronary artery disease Status post three-vessel bypass and left ventricular aneurysm repair in February 2019 at [facility]. Current use of fertilizer loader anticoagulation Depression Glaucoma Gout History of cerebrovascular accident (~01/2019) Post CABG right parietal infarction with clinical left hemiplegia. Hyperlipidemia Hypertension Hypothyroidism Insulin dependent diabetes mellitus Hemoglobin A1c was 7.7% on 04/19/2021. Ischemic cardiomyopathy Most recent calculated EF was 31%. Myocardial infarction (~01/2019) Late presentation [place] found to have severe three-vessel disease, transferred to [facility] for emergent bypass with perioperative ventricular fibrillation arrest. Surgical History Surgical History H/O cervical spine surgery Fusion History of church
[2022-12-28] MEDS: LACTATED RINGERS 1,000 ML 125 ML IV CONT (18:34)
--- NOTE | 2022-12-28 22:13 | PC.NURSE ---
US at bedside
[2022-12-28] MEDS: LORazepam INJ (*CRX) 2 MG/ML VIAL 1 MG IV PUSH (22:26)
--- NOTE | 2022-12-28 22:27 | PC.NURSE ---
Cryptologic Supervisor found patient seizing at 10:24. MD At bedside. 1 MG of Ativan given at 2226. HR 97, SpO@ 97%, Co2 4
--- NOTE | 2022-12-28 23:07 | PC.NURSE ---
Another witness seizure by RN, EPOXY SPECIALIST Barb, and Dr Anna. 2 IV ativan given via verbal order. Setting up intubation at this time.
--- NOTE | 2022-12-28 23:16 | PC.NURSE ---
Addendum entered by Saima Camp RN 12/29/22 06:55: 2330 propofol drip started at 5 mcg/kg/min and increased to 30 mcg/kg/min q5 minutes until pt. RASS -2 Original Note: 2316: HR 89 97% on 2 liters NC RR 17 2316: 30 of Atomodate given 2314: 80 Rocc given 87 HR SpO2 100% RR 17 2318: Successful intubation, mechanically ventilating Hr 104 SpO2 100% RR 17 2319: HR 117 100% RR 16 2320: HR 120 100% RR 26 2330: Propofol drip started at 30 mcg/kg/min with weight of 113.6 kg. Rate of 20.3 mL/HR
[2022-12-28] MEDS: PROPOFOL IV EMULSION 100 ML 3.41 MG IV CONT (23:24)
--- NOTE | 2022-12-28 23:37 | P.PNCROSS_ITS ---
Event Note Event Note Event Note: I was called to the emergency room as the patient was having continuous seizure s. The patient had 3 seizures sound in the emergency room. The patient was given Ativan in the emergency room by the ED provider. Neurology has been contacted by the ED physician. Who suggested that the patient receive another g of Keppra. The nurse and I were on the way to IMU when the patient had another seizure. It was determined that the patient needed to be intubated to protect his airway. See intubation note.
--- NOTE | 2022-12-28 23:39 | WPDPROCEDUR ---
Procedures Intubation Intubation Date: 12/28/22 Intubation Time: 23:30 Sedative: etomidate Mg given: 30 Paralytic: rocuronium Mg given: 80 Laryngoscope: fiber optic video scope Assist device used: fiber optic device ET tube size: 8 Tube secured depth (cm): 26 Tube secured location: lips Tube placement confirmation: visualized tube passing through cords, equal breath sounds bilaterally, no breath sounds over epigastrium and confirmation by capnometry Patient tolerated procedure: no complications Intubation complications: none Additional comments: O2 saturations remain 100%. see chest x-ray for position
--- NOTE | 2022-12-28 23:40 | PC.NURSE ---
Report called to Xi[facility] in ICU. Pt to be admitted to ICU 5
[2022-12-29] VITALS (32 sets, daily range): BP systolic 120–160; BP diastolic 50–104; PULSE 76–100; RESP 15–19; TEMP 36.2–38.7; O2SAT 95–100; BMI 31.1
--- NOTE | 2022-12-29 | PC.NURSE ---
Called respiratory for assist with transfer to ICU
--- NOTE | 2022-12-29 01:00 | PC.NURSE ---
Attempted to call to give status update. No answer at this time.
[2022-12-29] MEDS: levETIRAcetam 1000MG/NACL100ML 1,000 MG/100 ML BAG 400 MG IVPB ×3 (01:03→21:35)
--- NOTE | 2022-12-29 01:11 | ADMGEN ---
This patient, Bayron Ann, was admitted to Intensive Care Unit-5 at 0033. Patient/family oriented to hospital policies and general routines including ID bracelet, bed and alarms, visiting hours, pain management, procedures, bathroom and other care routines, personal items, smoking policy, room service/diet, and visiting hours. Information on how to activate the Rapid Response Team has been discussed. Patient/Family are encouraged to report perceived risks to care and to ask questions if they do not understand what they are told or what they should do.
[2022-12-29 02:40] LABS: Base Excess ABG -0.7 mEq/l (+/-2.0); Device VENTILATOR; Fractional Inspired Oxygen 45 %; HCO3 ABG 24.5 mEq/l (22.0-26.0); Modified Allen's Test Pass; Oxygen Saturation ABG 98.5 % (95.0-100.0); Oxyhemoglobin 96.4 % THb (90.0-100.0); PO2 ABG 127.1 mmHg (80.0-100.0); PO2 FiO2 Ratio Arterial Blood 2.82 %; Site Drawn RIGHT RADIAL; Total Hemoglobin 14.6 g/dL (12.0-18.0); pH ABG 7.383 (7.350-7.450)
[2022-12-29 02:41] LABS: Arterial Blood Gas PEEP 5 cmH2O; Arterial Blood Gas Tidal Volume 500 ml; Arterial Blood Gas Vent Mode CMV; Arterial Blood Gas Ventilator rate 16 /MIN
[2022-12-29] MEDS: PROPOFOL IV EMULSION 100 ML 27.26 MG IV CONT ×4 (02:41→20:00)
[2022-12-29 02:58] LABS: Glucose Point of Care 160 mg/dl (65-105)
[2022-12-29 04:21] LABS: Basophils Absolute Auto 0.1 K/mm3 (0.0-0.1); Basophils Percent Auto 1.1 % (0.2-1.2); Eosinophils Absolute Auto 0.4 K/mm3 (0-0.3); Eosinophils Percent Auto 3.4 % (0-4.4); Hematocrit 41.4 % (42.0-52.0); Hemoglobin 13.6 g/dL (14.0-18.0); Immature Granulocyte Absolute 0.23 K/mm3 (0.00-0.031); Immature Platelet Fraction Pct 4.7 % (0.9-11.2); Lymphocytes Absolute Auto 1.58 K/mm3 (0.9-3.2); Lymphocytes Percent Auto 14.1 % (18.3-44.2); Mean Corpuscular HGB Conc 32.9 g/dl (32-36); Mean Corpuscular Volume 91.2 fl (80-100); Mean Platelet Volume 12.1 fl (7.4-10.4); Monocytes Absolute Auto 0.9 K/mm3 (0.1-0.6); Monocytes Percent Auto 7.6 % (2.6-8.5); Neutrophils Absolute Auto 8.1 K/mm3 (1.3-6.7); Neutrophils Percent Auto 71.8 % (45.5-73.1); Platelet Count Result 124 k/mm3 (150-375); Red Blood Count 4.54 M/mm3 (4.6-6.20); Red Cell Distribution Width 15.8 % (11.5-14.5); White Blood Count 11.2 K/mm3 (4.5-10.0)
[2022-12-29 04:48] LABS: Alanine Aminotransferase 20 U/L (6-50); Albumin Level 3.9 g/dL (3.5-5.1); Alkaline Phosphatase 98 U/L (38-126); Anion Gap 7 mmol/L (8-16); Aspartate Amino Transferase 26 U/L (17-59); Bilirubin,Total 0.5 mg/dL (0.2-1.3); Blood Urea Nitrogen 33 mg/dL (9-20); Calcium 8.8 mg/dL (8.4-10.2); Carbon Dioxide 24 mmol/L (22-30); Chloride 108 mmol/L (98-107); Estimated CRCL calculation 82 ml/min; Estimated Glomerular Filt Rate > 60; Glucose 153 mg/dL (65-110); Lipase 206 U/L (23-300); Potassium 3.7 mmol/L (3.4-5.0); Sodium 139 mmol/L (137-145)
[2022-12-29] MEDS: LEVOTHYROXINE SODIUM INJ 100 MCG/5 ML VIAL 68 MCG IV PUSH (05:50)
[2022-12-29] MEDS: LACTATED RINGERS 1,000 ML 125 ML IV CONT (05:51)
[2022-12-29 05:59] LABS: Glucose Point of Care 136 mg/dl (65-105)
[2022-12-29 06:05] LABS: Thyroid Stimulating Hormone Reflex 0.254 uIU/mL (0.465-4.68)
[2022-12-29] MEDS: LACTATED RINGERS 1,000 ML 75 ML IV CONT ×2 (08:55→17:12)
[2022-12-29 09:14] LABS: Free T4 Free Thyroxine Reflex 1.37 ng/dL (0.78-2.19)
[2022-12-29] MEDS: ENOXAPARIN 40 MG/0.4 ML SYRINGE SUB-Q (10:58)
[2022-12-29] MEDS: PANTOPRAZOLE SODIUM IV 40 MG VIAL IV PUSH (10:58)
--- NOTE | 2022-12-29 11:10 | WPDCNINT ---
Assessment and Plan Assessment and plan (1) Seizure: Code(s): R56.9 - Unspecified convulsions Status: Acute Assessment and Plan: Patient presented with multiple seizures, requiring intubation for airway protection -patient was loaded with Keppra 1 g IV x2 occasions on admission -will start Keppra 1 g IV q.12 hours -currently on propofol -Ativan p.r.n. -seizure precautions -12/28/2022: CT scan of the brain no acute intracranial process, stable appearance of an old infarct in the expected vascular distribution of the right middle cerebral artery -neurology has been consulted -12/28 EEG was done, results are pending (2) Acute respiratory failure with hypoxia: Code(s): J96.01 - Acute respiratory failure with hypoxia Status: Resolved Assessment and Plan: Patient was intubated on 12/28/2022 for airway protection a biopsy had multiple seizure activity and altered mental status -chest x-ray this morning showed minimal left effusion possible minimal central congestive changes -currently on CMV mode of ventilation, peep of 5, 45% FiO2 -will add bronchodilators -sedated with propofol, wean to maintain a RASS of 0 to -2 (3) 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: Code(s): L89.624 - Pressure ulcer of left heel, stage 4 Status: Acute Assessment and Plan: Wound care is following the patient for his left heel ulcer (4) Insulin dependent diabetes mellitus: Status: Chronic Assessment and Plan: Continue Accu-Cheks and sliding scale insulin -if blood sugar are elevated we will add Lantus (5) Hypothyroidism: Qualifiers: Hypothyroidism type: unspecified Qualified Code(s): E03.9 - Hypothyroidism, unspecified Code(s): E03.9 - Hypothyroidism, unspecified Status: Chronic Assessment and Plan: Continue levothyroxine (6) Hypertension: Qualifiers: Hypertension type: primary hypertension Qualified Code(s): I10 - Essential (primary) hypertension Code(s): I10 - Essential (primary) hypertension Status: Chronic Assessment and Plan: Blood pressures are stable at this time - On hydralazine p.r.n. (7) History of CVA (cerebrovascular accident): Code(s): Z86.73 - Personal history of transient ischemic attack (TIA), and cerebral infarction without residual deficits Status: Chronic Assessment and Plan: Patient with history of CVA with left hemiparesis -12/28 CT scan of the brain as above Plan DVT prophylaxis: Lovenox SQ Stress ulcer prophylaxis: Protonix Nutrition: Will start tube feeds Code Status: Full code Critical Care Time Spent: 51 minutes Due to a high probability of clinically significant, life threatening deterioration, the patient required my highest level of preparedness to intervene emergently and I personally spent this critical care time directly and personally managing the patient. This critical care time included obtaining a history; examining the patient; pulse oximetry; ordering and review of studies; arranging urgent treatment with development of a management plan; evaluation of patient's response to treatment; frequent reassessment; and discussions with other providers. It was exclusive of separately billable procedures and treating other patients and teaching time. Please see Assessment and Plan section and the rest of the note for further information on patient assessment and treatment This dictation may have been done utilizing a voice recognition system. Attempts have been made to correct errors. However, there may be uncorrected grammatical, spelling, and recognitions errors present. Energy Audit Advisor Consult Note Consult date: 12/29/22 Reason for consult: Multiple tonic clonic seizures requiring intubation for airway protection due to altered mental status, chronic left hemiparesis, left heel pressure ulcer HPI: Bayron Ann is a 62 year old male with significant past medical histor
[2022-12-29 11:45] LABS: Glucose Point of Care 150 mg/dl (65-105)
[2022-12-29 13:25] LABS: Total Triiodothyronine (T3) 0.98 NG/ML (0.97-1.69)
[2022-12-29] MEDS: PROPOFOL IV EMULSION 100 ML 17.04 MG IV CONT (14:53)
[2022-12-29 17:29] LABS: Glucose Point of Care 185 mg/dl (65-105)
[2022-12-29] MEDS: PROPOFOL IV EMULSION 100 ML 30.67 MG IV CONT (23:02)
[2022-12-29 23:07] LABS: Glucose Point of Care 169 mg/dl (65-105)
[2022-12-30] VITALS (33 sets, daily range): BP systolic 130–151; BP diastolic 60–84; PULSE 75–99; RESP 16–22; TEMP 37.2–38.4; O2SAT 97–100
[2022-12-30 00:52] LABS: Glucose Point of Care 160 mg/dl (65-105)
[2022-12-30] MEDS: CEFEPIME 2 GM/NS 50 ML 2 GM/50 ML BAG IVPB ×2 (01:13→13:23)
[2022-12-30] MEDS: PROPOFOL IV EMULSION 100 ML 30.67 MG IV CONT (02:40)
[2022-12-30] MEDS: PROPOFOL IV EMULSION 100 ML 27.26 MG IV CONT (05:38)
[2022-12-30] MEDS: LEVOTHYROXINE SODIUM INJ 100 MCG/5 ML VIAL 68 MCG IV PUSH (05:42)
[2022-12-30 06:02] LABS: Glucose Point of Care 181 mg/dl (65-105)
[2022-12-30 07:31] LABS: Basophils Absolute Auto 0.1 K/mm3 (0.0-0.1); Basophils Percent Auto 0.7 % (0.2-1.2); Eosinophils Absolute Auto 0.2 K/mm3 (0-0.3); Eosinophils Percent Auto 1.6 % (0-4.4); Hematocrit 41.8 % (42.0-52.0); Hemoglobin 13.5 g/dL (14.0-18.0); Immature Granulocyte Absolute 0.17 K/mm3 (0.00-0.031); Immature Granulocyte Percent A 1.2 % (0-0.5); Lymphocytes Absolute Auto 0.93 K/mm3 (0.9-3.2); Lymphocytes Percent Auto 6.8 % (18.3-44.2); Mean Corpuscular HGB Conc 32.3 g/dl (32-36); Mean Corpuscular Hemoglobin 30.5 pg (26-34); Mean Corpuscular Volume 94.4 fl (80-100); Mean Platelet Volume 11.8 fl (7.4-10.4); Monocytes Absolute Auto 1.4 K/mm3 (0.1-0.6); Monocytes Percent Auto 10.1 % (2.6-8.5); Neutrophils Absolute Auto 10.9 K/mm3 (1.3-6.7); Neutrophils Percent Auto 79.6 % (45.5-73.1); Platelet Count Result 135 k/mm3 (150-375); Red Blood Count 4.43 M/mm3 (4.6-6.20); Red Cell Distribution Width 16.5 % (11.5-14.5); White Blood Count 13.7 K/mm3 (4.5-10.0)
[2022-12-30 07:44] LABS: Phosphorus 3.7 mg/dL (2.5-4.5); Triglycerides 253 mg/dL (<150)
[2022-12-30] MEDS: ENOXAPARIN 40 MG/0.4 ML SYRINGE SUB-Q (08:19)
[2022-12-30] MEDS: PANTOPRAZOLE SODIUM IV 40 MG VIAL IV PUSH (08:21)
[2022-12-30] MEDS: SILVERGEL (ELTA) 45 ML 1 APPLIC TOPICAL (08:21)
[2022-12-30] MEDS: levETIRAcetam 1000MG/NACL100ML 1,000 MG/100 ML BAG 400 MG IVPB ×2 (09:08→21:49)
[2022-12-30] MEDS: PROPOFOL IV EMULSION 100 ML 13.58 MG IV CONT ×2 (09:10→16:22)
--- NOTE | 2022-12-30 09:19 | WPDINTPN ---
Progress Note: A&P Assessment and Plan (1) Sepsis: Code(s): A41.9 - Sepsis, unspecified organism Status: Acute Assessment and Plan: Febrile with T-max of 101.6? F, leukocytosis, new left lower lobe infiltrates -patient also on acetaminophen for fevers -chest x-ray this morning showed left lower lobe infiltrate -12/28/2022 blood cultures negative x2 so far -12/28/2022 culture from the foot wound is growing few Gram-positive cocci in clusters -check sputum cultures -patient started on vancomycin and cefepime (12/30) to treat pneumonia and possible wound infection (2) Seizure: Code(s): R56.9 - Unspecified convulsions Status: Acute Assessment and Plan: Patient presented with multiple seizures, requiring intubation for airway protection -patient was loaded with Keppra 1 g IV x2 occasions on admission -will start Keppra 1 g IV q.12 hours -currently on propofol -Ativan p.r.n. -seizure precautions -12/28/2022: CT scan of the brain no acute intracranial process, stable appearance of an old infarct in the expected vascular distribution of the right middle cerebral artery -neurology has been consulted -12/28 EEG was done, results are pending (3) Acute respiratory failure with hypoxia: Code(s): J96.01 - Acute respiratory failure with hypoxia Status: Resolved Assessment and Plan: Patient was intubated on 12/28/2022 for airway protection a biopsy had multiple seizure activity and altered mental status -chest x-ray this morning showed minimal left effusion possible minimal central congestive changes -currently on CMV mode of ventilation, peep of 5, 45% FiO2 -continue bronchodilators -antibiotics as above -sedated with propofol, wean to maintain a RASS of 0 to -2 -have asked the bedside RN to wean propofol to evaluate mental status (4) 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: Code(s): L89.624 - Pressure ulcer of left heel, stage 4 Status: Acute Assessment and Plan: Wound care is following the patient for his left heel ulcer -wound cultures as above (5) Insulin dependent diabetes mellitus: Status: Chronic Assessment and Plan: Continue Accu-Cheks and sliding scale insulin -if blood sugar are elevated we will add Lantus (6) Hypothyroidism: Qualifiers: Hypothyroidism type: unspecified Qualified Code(s): E03.9 - Hypothyroidism, unspecified Code(s): E03.9 - Hypothyroidism, unspecified Status: Chronic Assessment and Plan: Continue levothyroxine (7) Hypertension: Qualifiers: Hypertension type: primary hypertension Qualified Code(s): I10 - Essential (primary) hypertension Code(s): I10 - Essential (primary) hypertension Status: Chronic Assessment and Plan: Blood pressures are stable at this time - On hydralazine p.r.n. (8) History of CVA (cerebrovascular accident): Code(s): Z86.73 - Personal history of transient ischemic attack (TIA), and cerebral infarction without residual deficits Status: Chronic Assessment and Plan: Patient with history of CVA with left hemiparesis -12/28 CT scan of the brain as above Plan DVT prophylaxis: Lovenox SQ Stress ulcer prophylaxis: Protonix Nutrition: Tolerating tube feeds Code Status: Full code Critical Care Time Spent: 33 minutes Due to a high probability of clinically significant, life threatening deterioration, the patient required my highest level of preparedness to intervene emergently and I personally spent this critical care time directly and personally managing the patient. This critical care time included obtaining a history; examining the patient; pulse oximetry; ordering and review of studies; arranging urgent treatment with development of a management plan; evaluation of patient's response to treatment; frequent reassessment; and discussions with other providers. It was exclusive of separately billable procedures and treating ot
[2022-12-30] MEDS: SCOPOLAMINE 1.5 MG PATCH TRANSDERM (11:53)
[2022-12-30] MEDS: INSULIN ASPART (*BKC) 100 UNITS/ML SUB-Q (11:57)
[2022-12-30 11:58] LABS: Glucose Point of Care 201 mg/dl (65-105)
[2022-12-30 13:32] LABS: Alanine Aminotransferase 17 U/L (6-50); Albumin Level 3.7 g/dL (3.5-5.1); Alkaline Phosphatase 86 U/L (38-126); Anion Gap 10 mmol/L (8-16); Aspartate Amino Transferase 20 U/L (17-59); Bilirubin,Total 0.5 mg/dL (0.2-1.3); Blood Urea Nitrogen 25 mg/dL (9-20); Calcium 9.3 mg/dL (8.4-10.2); Carbon Dioxide 19 mmol/L (22-30); Chloride 115 mmol/L (98-107); Estimated CRCL calculation 77 ml/min; Estimated Glomerular Filt Rate > 60; Glucose 181 mg/dL (65-110); Sodium 144 mmol/L (137-145)
[2022-12-30 17:28] LABS: Glucose Point of Care 181 mg/dl (65-105)
[2022-12-30] MEDS: PROPOFOL IV EMULSION 100 ML 20.38 MG IV CONT ×2 (20:26→23:10)
[2022-12-31] VITALS (40 sets, daily range): BP systolic 113–143; BP diastolic 60–82; PULSE 0–89; RESP 16–21; TEMP 37.1–37.5; O2SAT 79–100
[2022-12-31 00:19] LABS: Glucose Point of Care 200 mg/dl (65-105)
[2022-12-31] MEDS: CEFEPIME 2 GM/NS 50 ML 2 GM/50 ML BAG IVPB ×2 (01:59→13:01)
[2022-12-31] MEDS: PROPOFOL IV EMULSION 100 ML 23.77 MG IV CONT ×2 (03:04→07:45)
[2022-12-31 03:42] LABS: Basophils Absolute Auto 0.1 K/mm3 (0.0-0.1); Basophils Percent Auto 0.5 % (0.2-1.2); Eosinophils Absolute Auto 0.2 K/mm3 (0-0.3); Eosinophils Percent Auto 1.4 % (0-4.4); Hematocrit 39.4 % (42.0-52.0); Hemoglobin 12.8 g/dL (14.0-18.0); Immature Granulocyte Absolute 0.17 K/mm3 (0.00-0.031); Immature Granulocyte Percent A 1.2 % (0-0.5); Lymphocytes Absolute Auto 0.87 K/mm3 (0.9-3.2); Lymphocytes Percent Auto 6.2 % (18.3-44.2); Mean Corpuscular HGB Conc 32.5 g/dl (32-36); Mean Corpuscular Volume 92.3 fl (80-100); Mean Platelet Volume 12.2 fl (7.4-10.4); Monocytes Absolute Auto 1.1 K/mm3 (0.1-0.6); Neutrophils Absolute Auto 11.6 K/mm3 (1.3-6.7); Neutrophils Percent Auto 82.7 % (45.5-73.1); Platelet Count Result 127 k/mm3 (150-375); Red Blood Count 4.27 M/mm3 (4.6-6.20); Red Cell Distribution Width 16.1 % (11.5-14.5); White Blood Count 14.1 K/mm3 (4.5-10.0)
[2022-12-31 03:55] LABS: Lactic Acid Reflex 0.9 mmol/L (0.7-2.0)
[2022-12-31 03:57] LABS: INR 1.3; Prothrombin Time 15.8 Seconds (11.1-14.7)
[2022-12-31 03:58] LABS: Alanine Aminotransferase 15 U/L (6-50); Albumin Level 3.7 g/dL (3.5-5.1); Alkaline Phosphatase 80 U/L (38-126); Anion Gap 6 mmol/L (8-16); Aspartate Amino Transferase 18 U/L (17-59); Bilirubin,Total 0.6 mg/dL (0.2-1.3); Blood Urea Nitrogen 23 mg/dL (9-20); Calcium 8.7 mg/dL (8.4-10.2); Carbon Dioxide 23 mmol/L (22-30); Chloride 111 mmol/L (98-107); Estimated CRCL calculation 92 ml/min; Estimated Glomerular Filt Rate > 60; Glucose 202 mg/dL (65-110); Lipase 57 U/L (23-300); Partial Thromboplastin Time 41.6 SECONDS (22.3-36.8); Phosphorus 3.6 mg/dL (2.5-4.5); Potassium 3.6 mmol/L (3.4-5.0); Sodium 140 mmol/L (137-145)
[2022-12-31 04:28] LABS: Thyroid Stimulating Hormone 0.241 uIU/mL (0.465-4.680)
[2022-12-31 05:22] LABS: Alveolar/Arterial O2 Gradient 72.3 mmHg; Base Excess ABG -0.5 mEq/l (+/-2.0); Fractional Inspired Oxygen 30 %; HCO3 ABG 23.5 mEq/l (22.0-26.0); Methemoglobin ABG 0.2 %THb (0-1.5); Oxygen Content ABG 20.4 %vol (16.0-22.0); Oxygen Saturation ABG 97.6 % (95.0-100.0); Oxyhemoglobin 95.8 % THb (90.0-100.0); PCO2 ABG 37.1 mmHg (35.0-45.0); PO2 FiO2 Ratio Arterial Blood 3.27 %; Total Hemoglobin 15.1 g/dL (12.0-18.0)
[2022-12-31 05:46] LABS: Device VENTILATOR; Modified Allen's Test Pass; Site Drawn RIGHT RADIAL
[2022-12-31 05:47] LABS: Arterial Blood Gas PEEP 5 cmH2O; Arterial Blood Gas Tidal Volume 500 ml; Arterial Blood Gas Vent Mode CMV; Arterial Blood Gas Ventilator rate 16 /MIN
[2022-12-31 06:15] LABS: Glucose Point of Care 244 mg/dl (65-105)
[2022-12-31] MEDS: LEVOTHYROXINE SODIUM INJ 100 MCG/5 ML VIAL 68 MCG IV PUSH (06:18)
[2022-12-31] MEDS: INSULIN ASPART (*BKC) 100 UNITS/ML SUB-Q ×3 (06:21→18:33)
--- NOTE | 2022-12-31 07:47 | PM.IMPN ---
Progress Note: A&P Assessment and Plan (1) Sepsis: Code(s): A41.9 - Sepsis, unspecified organism Status: Acute Assessment and Plan: Suspect pneumonia as etiology, follow sputum cultures, continue vancomycin and cefepime, started 12/30 Blood cultures NGTD Foot wound culture growing Staph aureus, sensitivity pending, continue current antibiotics (2) Seizure: Code(s): R56.9 - Unspecified convulsions Status: Acute Assessment and Plan: Recurrent seizures noted, CT of the brain nonacute, continue Keppra Seizure precautions, appreciate neurology consultation EEG pending? 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: Code(s): L89.624 - Pressure ulcer of left heel, stage 4 Status: Acute Assessment and Plan: Appreciate Wound Care consult, follow-up wound culture, Staph aureus growing, sensitivities pending (5) Insulin dependent diabetes mellitus: Status: Chronic Assessment and Plan: Continue Lantus, Accu-Cheks, sliding scale insulin (6) Hypothyroidism: Qualifiers: Hypothyroidism type: unspecified Qualified Code(s): E03.9 - Hypothyroidism, unspecified Code(s): E03.9 - Hypothyroidism, unspecified Status: Chronic Assessment and Plan: Continue levothyroxine (7) Hypertension: Qualifiers: Hypertension type: primary hypertension Qualified Code(s): I10 - Essential (primary) hypertension Code(s): I10 - Essential (primary) hypertension Status: Chronic Assessment and Plan: Continue hydralazine as needed, stable (8) History of CVA (cerebrovascular accident): Code(s): Z86.73 - Personal history of transient ischemic attack (TIA), and cerebral infarction without residual deficits Status: Chronic Assessment and Plan: Patient with history of CVA with left hemiparesis Plan DVT prophylaxis: Lovenox SQ Stress ulcer prophylaxis: Protonix Nutrition: Tolerating tube feeds Code Status: Full code Subjective Date/time seen: 12/31/22 07:47 Interval history: Intubated, sedated. Continue tube feeds. Review of Systems Review of Systems: ROS unobtainable: Yes unobtainable due to endotracheal tube Exam Narrative: General: Intubated, sedated HEENT: Atraumatic, normocephalic, mucous membranes moist CV: Sinus rhythm on telemetry Lungs: Unlabored breathing noted Abdomen: Nondistended abdomen Extremities: Normal to inspection, left heel wound with dressing noted Skin: Chronic venous stasis dermatitis noted on bilateral lower extremities Psych: Unable to assess Objective Data Vital Signs Vital Signs: Vital Signs - 24 hr 12/30/22 08:00 12/30/22 09:10 12/30/22 09:52 Temperature Pulse Rate 81 78 79 Respiratory Rate 16 16 16 Blood Pressure Pulse Oximetry Oxygen Delivery Fraction of Inspired Oxygen 12/30/22 10:23 12/30/22 08:00 12/30/22 08:00 Temperature 99.8 F H Pulse Rate 94 85 85 Respiratory Rate 16 16 16 Blood Pressure 134/68 Pulse Oximetry 97 97 Oxygen Delivery Mechanical Ventilation Fraction of Inspired Oxygen 30 12/30/22 10:00 12/30/22 08:00 12/30/22 08:00 Temperature Pulse Rate 94 83 Respiratory Rate 16 Blood Pressure 144/71 H Pulse Oximetry 100 Oxygen Delivery Fraction of Inspired Oxygen 30 12/30/22 10:00 12/30/22 11:11 12/30/22 12:00 Temperature Pulse Rate 94 88 84 Respiratory Rate Blood Pressure Pulse Oximetry 99 Oxygen Delivery Mechanical Ventilation Fraction of Inspired Oxygen 30 12/30/22 12:00 12/30/22 12:00 12/30/22 14:30 Temperature 99.3 F
[2022-12-31] MEDS: levETIRAcetam 1000MG/NACL100ML 1,000 MG/100 ML BAG 400 MG IVPB ×2 (08:10→20:01)
[2022-12-31] MEDS: dexmedeTOMIDine 400 MCG/100 ML 400 MCG/100 ML BAG 5.73 MCG IV CONT (08:12)
[2022-12-31] MEDS: PANTOPRAZOLE SODIUM IV 40 MG VIAL IV PUSH (08:19)
[2022-12-31] MEDS: SILVERGEL (ELTA) 45 ML 1 APPLIC TOPICAL (08:19)
[2022-12-31] MEDS: ENOXAPARIN 40 MG/0.4 ML SYRINGE SUB-Q (08:19)
[2022-12-31] MEDS: MINERAL OIL/WHITE PETROLATUM OINTMENT 1 APPLIC EACH EYE ×2 (08:29→20:01)
--- NOTE | 2022-12-31 08:39 | WPDINTPN ---
Progress Note: A&P Assessment and Plan (1) Sepsis: Code(s): A41.9 - Sepsis, unspecified organism Status: Acute Assessment and Plan: 12/30: Febrile with T-max of 101.6? F, leukocytosis, new left lower lobe infiltrates -patient also on acetaminophen for fevers -chest x-ray this morning showed left lower lobe infiltrate -12/28/2022 blood cultures negative x2 so far -12/28/2022 culture from the foot wound is growing Staph Aureus -12/29: sputum pending -12/30: MRSA screen pending -continue vancomycin and cefepime (12/30) to treat wound infection possible pneumonia (2) Seizure: Code(s): R56.9 - Unspecified convulsions Status: Acute Assessment and Plan: Patient presented with multiple seizures, requiring intubation for airway protection -patient was loaded with Keppra 1 g IV x2 occasions on admission -will start Keppra 1 g IV q.12 hours -currently on propofol -Ativan p.r.n. -seizure precautions -12/28/2022: CT scan of the brain no acute intracranial process, stable appearance of an old infarct in the expected vascular distribution of the right middle cerebral artery -neurology has been consulted -12/28 EEG was done, results are pending (3) Acute respiratory failure with hypoxia: Code(s): J96.01 - Acute respiratory failure with hypoxia Status: Resolved Assessment and Plan: Patient was intubated on 12/28/2022 for airway protection a biopsy had multiple seizure activity and altered mental status -chest x-ray this morning showed minimal left effusion possible minimal central congestive changes -currently on CMV mode of ventilation, peep of 5, 45% FiO2 -continue bronchodilators -antibiotics as above -sedated with propofol, wean to maintain a RASS of 0 to -2 -have asked the bedside RN to wean propofol to evaluate mental status -will place patient on Precedex infusion, wean propofol off and will try patient on SBT and evaluate for extubation when more awake (4) 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: Code(s): L89.624 - Pressure ulcer of left heel, stage 4 Status: Acute Assessment and Plan: Wound care is following the patient for his left heel ulcer -wound cultures as above (5) Insulin dependent diabetes mellitus: Status: Chronic Assessment and Plan: Continue Accu-Cheks and sliding scale insulin -if blood sugar are elevated we will add Lantus (6) Hypothyroidism: Qualifiers: Hypothyroidism type: unspecified Qualified Code(s): E03.9 - Hypothyroidism, unspecified Code(s): E03.9 - Hypothyroidism, unspecified Status: Chronic Assessment and Plan: Continue levothyroxine (7) Hypertension: Qualifiers: Hypertension type: primary hypertension Qualified Code(s): I10 - Essential (primary) hypertension Code(s): I10 - Essential (primary) hypertension Status: Chronic Assessment and Plan: Blood pressures are stable at this time - On hydralazine p.r.n. (8) History of CVA (cerebrovascular accident): Code(s): Z86.73 - Personal history of transient ischemic attack (TIA), and cerebral infarction without residual deficits Status: Chronic Assessment and Plan: Patient with history of CVA with left hemiparesis -12/28 CT scan of the brain as above Plan DVT prophylaxis: Lovenox SQ Stress ulcer prophylaxis: Protonix Nutrition: Tolerating tube feeds Code Status: Full code Critical Care Time Spent: 33 minutes Due to a high probability of clinically significant, life threatening deterioration, the patient required my highest level of preparedness to intervene emergently and I personally spent this critical care time directly and personally managing the patient. This critical care time included obtaining a history; examining the patient; pulse oximetry; ordering and review of studies; arranging urgent treatment with development of a management plan; evaluation of patient's response to treatme
[2022-12-31 13:04] LABS: Glucose Point of Care 227 mg/dl (65-105)
[2022-12-31 13:50] LABS: Vancomycin Trough 21.1 ug/mL (10.0-20.0)
[2022-12-31] MEDS: dexmedeTOMIDine 400 MCG/100 ML 400 MCG/100 ML BAG 22.92 MCG IV CONT (14:21)
[2022-12-31 18:28] LABS: Glucose Point of Care 251 mg/dl (65-105)
[2022-12-31] MEDS: dexmedeTOMIDine 400 MCG/100 ML 400 MCG/100 ML BAG 17.19 MCG IV CONT (19:49)
[2023-01-01] VITALS (29 sets, daily range): BP systolic 119–149; BP diastolic 65–86; PULSE 67–85; RESP 16–22; TEMP 37.1–37.7; O2SAT 95–100
[2023-01-01] MEDS: CEFEPIME 2 GM/NS 50 ML 2 GM/50 ML BAG IVPB ×3 (00:10→23:34)
[2023-01-01] MEDS: INSULIN ASPART (*BKC) 100 UNITS/ML SUB-Q ×5 (00:15→23:39)
[2023-01-01 00:19] LABS: Glucose Point of Care 264 mg/dl (65-105)
[2023-01-01] MEDS: dexmedeTOMIDine 400 MCG/100 ML 400 MCG/100 ML BAG 17.19 MCG IV CONT ×2 (01:08→06:42)
[2023-01-01 04:33] LABS: Basophils Absolute Auto 0.1 K/mm3 (0.0-0.1); Basophils Percent Auto 0.5 % (0.2-1.2); Eosinophils Absolute Auto 0.3 K/mm3 (0-0.3); Eosinophils Percent Auto 2.4 % (0-4.4); Hematocrit 42.7 % (42.0-52.0); Hemoglobin 13.9 g/dL (14.0-18.0); Immature Granulocyte Absolute 0.18 K/mm3 (0.00-0.031); Immature Granulocyte Percent A 1.4 % (0-0.5); Lymphocytes Absolute Auto 0.86 K/mm3 (0.9-3.2); Lymphocytes Percent Auto 6.6 % (18.3-44.2); Mean Corpuscular HGB Conc 32.6 g/dl (32-36); Mean Corpuscular Hemoglobin 30.4 pg (26-34); Mean Corpuscular Volume 93.4 fl (80-100); Mean Platelet Volume 11.9 fl (7.4-10.4); Monocytes Percent Auto 7.8 % (2.6-8.5); Neutrophils Absolute Auto 10.6 K/mm3 (1.3-6.7); Neutrophils Percent Auto 81.3 % (45.5-73.1); Platelet Count Result 129 k/mm3 (150-375); Red Blood Count 4.57 M/mm3 (4.6-6.20)
[2023-01-01 04:43] LABS: INR 1.2; Prothrombin Time 14.8 Seconds (11.1-14.7)
[2023-01-01 04:55] LABS: Alanine Aminotransferase 17 U/L (6-50); Albumin Level 3.8 g/dL (3.5-5.1); Alkaline Phosphatase 84 U/L (38-126); Anion Gap 5 mmol/L (8-16); Aspartate Amino Transferase 18 U/L (17-59); Bilirubin,Total 0.6 mg/dL (0.2-1.3); Blood Urea Nitrogen 26 mg/dL (9-20); Calcium 8.7 mg/dL (8.4-10.2); Carbon Dioxide 24 mmol/L (22-30); Chloride 110 mmol/L (98-107); Estimated CRCL calculation 91 ml/min; Estimated Glomerular Filt Rate > 60; Glucose 259 mg/dL (65-110); Magnesium 2.1 mg/dL (1.6-2.3); Phosphorus 3.4 mg/dL (2.5-4.5); Potassium 3.9 mmol/L (3.4-5.0); Sodium 139 mmol/L (137-145); Triglycerides 158 mg/dL (<150)
[2023-01-01 05:14] LABS: Alveolar/Arterial O2 Gradient 45.9 mmHg; Carboxyhemoglobin 1.7 % THb (0-2.0); Device VENTILATOR; Fractional Inspired Oxygen 30 %; HCO3 ABG 24.4 mEq/l (22.0-26.0); Modified Allen's Test Pass; Oxygen Content ABG 19.2 %vol (16.0-22.0); Oxygen Saturation ABG 98.2 % (95.0-100.0); Oxyhemoglobin 96.2 % THb (90.0-100.0); PCO2 ABG 42.9 mmHg (35.0-45.0); PO2 ABG 117.6 mmHg (80.0-100.0); PO2 FiO2 Ratio Arterial Blood 3.92 %; Reduced Hemoglobin 2.1 %THb (0-5.0); Site Drawn RIGHT RADIAL; Total Hemoglobin 14.1 g/dL (12.0-18.0); pH ABG 7.372 (7.350-7.450)
[2023-01-01 05:15] LABS: Arterial Blood Gas PEEP 5 cmH2O; Arterial Blood Gas Vent Mode ASV
[2023-01-01] MEDS: LEVOTHYROXINE SODIUM INJ 100 MCG/5 ML VIAL 68 MCG IV PUSH (05:33)
[2023-01-01] MEDS: FUROSEMIDE INJ 40 MG/4 ML VIAL IV PUSH (08:03)
[2023-01-01] MEDS: PANTOPRAZOLE SODIUM IV 40 MG VIAL IV PUSH (08:04)
[2023-01-01] MEDS: levETIRAcetam 1000MG/NACL100ML 1,000 MG/100 ML BAG 400 MG IVPB ×2 (08:04→20:39)
[2023-01-01] MEDS: BACLOFEN 5 MG TABLET PO ×3 (08:14→23:33)
[2023-01-01] MEDS: amLODIPine BESYLATE 2.5 MG TABLET PO (08:14)
[2023-01-01] MEDS: carvediloL 3.125 MG TABLET PO (08:14)
[2023-01-01] MEDS: APIXABAN 5 MG TABLET PO ×2 (08:14→20:37)
[2023-01-01] MEDS: PRIMIDONE 50 MG TABLET PO ×2 (08:15→17:41)
[2023-01-01] MEDS: DULoxetine HCL 60 MG CAPSULE.DR PO (08:15)
[2023-01-01] MEDS: PREGABALIN (*CRX) 75 MG CAPSULE 150 MG PO ×2 (08:17→17:41)
--- NOTE | 2023-01-01 08:25 | WPDINTPN ---
Progress Note: A&P Assessment and Plan (1) Sepsis: Code(s): A41.9 - Sepsis, unspecified organism Status: Acute Assessment and Plan: 12/30: Febrile with T-max of 101.6? F, leukocytosis, new left lower lobe infiltrates -currently afebrile -patient also on acetaminophen for fevers -chest x-ray this morning showed left lower lobe infiltrate -12/28/2022 blood cultures negative x2 so far -12/28/2022 culture from the foot wound is growing Staph Aureus -12/29: sputum - no growth so far -12/30: MRSA screen is positive -continue vancomycin and cefepime (12/30) to treat wound infection and possible pneumonia (2) Seizure: Code(s): R56.9 - Unspecified convulsions Status: Acute Assessment and Plan: Patient presented with multiple seizures, requiring intubation for airway protection -patient was loaded with Keppra 1 g IV x2 occasions on admission -will start Keppra 1 g IV q.12 hours -currently on propofol -Ativan p.r.n. -seizure precautions -12/28/2022: CT scan of the brain no acute intracranial process, stable appearance of an old infarct in the expected vascular distribution of the right middle cerebral artery -neurology has been consulted -12/28 EEG was done, results are pending (3) Acute respiratory failure with hypoxia: Code(s): J96.01 - Acute respiratory failure with hypoxia Status: Resolved Assessment and Plan: Patient was intubated on 12/28/2022 for airway protection a biopsy had multiple seizure activity and altered mental status -chest x-ray this morning showed minimal left effusion possible minimal central congestive changes -currently on CMV mode of ventilation, peep of 5, 45% FiO2 -continue bronchodilators -antibiotics as above -sedated with propofol, wean to maintain a RASS of 0 to -2 -on precedex infusion, pt more awake, Will place on SBT and evaluate for extubation (4) 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: Code(s): L89.624 - Pressure ulcer of left heel, stage 4 Status: Acute Assessment and Plan: Wound care is following the patient for his left heel ulcer -wound cultures as above (5) Insulin dependent diabetes mellitus: Status: Chronic Assessment and Plan: Continue Accu-Cheks and sliding scale insulin Hold tube feeds as patient may be extubated (6) Hypothyroidism: Qualifiers: Hypothyroidism type: unspecified Qualified Code(s): E03.9 - Hypothyroidism, unspecified Code(s): E03.9 - Hypothyroidism, unspecified Status: Chronic Assessment and Plan: Continue levothyroxine (7) Hypertension: Qualifiers: Hypertension type: primary hypertension Qualified Code(s): I10 - Essential (primary) hypertension Code(s): I10 - Essential (primary) hypertension Status: Chronic Assessment and Plan: Blood pressures are stable at this time - On hydralazine p.r.n -started on home carvedilol, will also add Lasix which is home medication (8) History of CVA (cerebrovascular accident): Code(s): Z86.73 - Personal history of transient ischemic attack (TIA), and cerebral infarction without residual deficits Status: Chronic Assessment and Plan: Patient with history of CVA with left hemiparesis -12/28 CT scan of the brain as above -add primidone, pregabalin, baclofen Plan DVT prophylaxis: Continue Eliquis, patient takes at half-way Stress ulcer prophylaxis: Protonix Nutrition: Tolerating tube feeds, currently on hold for possible extubation Code Status: Full code Critical Care Time Spent: 34 minutes Due to a high probability of clinically significant, life threatening deterioration, the patient required my highest level of preparedness to intervene emergently and I personally spent this critical care time directly and personally managing the patient. This critical care time included obtaining a history; examining the patient; pulse oximetry; ordering and review of studies;
[2023-01-01] MEDS: SILVERGEL (ELTA) 45 ML 1 APPLIC TOPICAL (08:27)
[2023-01-01 09:28] LABS: Alveolar/Arterial O2 Gradient 73.1 mmHg; Base Excess ABG -1.3 mEq/l (+/-2.0); Fractional Inspired Oxygen 30 %; HCO3 ABG 23.4 mEq/l (22.0-26.0); Oxygen Content ABG 19.2 %vol (16.0-22.0); Oxygen Saturation ABG 97.2 % (95.0-100.0); Oxyhemoglobin 95.3 % THb (90.0-100.0); PCO2 ABG 39.3 mmHg (35.0-45.0); PO2 ABG 94.6 mmHg (80.0-100.0); PO2 FiO2 Ratio Arterial Blood 3.15 %; Total Hemoglobin 14.3 g/dL (12.0-18.0); pH ABG 7.393 (7.350-7.450)
[2023-01-01 09:29] LABS: Device VENTILATOR; Modified Allen's Test Pass
[2023-01-01 09:30] LABS: Arterial Blood Gas PEEP 5 cmH2O; Arterial Blood Gas Pressure Support 8 cmH2O; Arterial Blood Gas Vent Mode SPONTANEOUS
[2023-01-01] MEDS: racEPINEPHrine 2.25% NEBU SOLN 0.5 ML VIAL.NEB INHALATION (11:00)
--- NOTE | 2023-01-01 11:05 | PCFNICU ---
ICU Rounding Note: Pt current nutrition is NPO awaiting speech evaluation. Nutrition recommendation: Advance to oral diet as medically able Last recorded weight is 118.1 kg. Bowel Motility: Last BM 12/31/22 Labs Reviewed: Hgb 13.9, BUN 26, Glu 259 Meds Noted: Danelle Adams Skin: L h eel diabetic ulcer crater Additional Notes: Pt was successfully extubated today. Tube feeding will be cancelled. Speech eval is ordered. Following daily in ICU rounds. Will monitor every Sunday and Sunday..
--- NOTE | 2023-01-01 11:12 | P.NEURO_ITS ---
Neurology EEG Report General Information Date of Study: 12/29/22 TEST Routine EEG DIAGNOSIS Seizures CONDITION OF RECORDING Unresponsive EEG NUMBER [id number] CLINICAL HISTORY Patient is currently in the ICU on mechanical ventilation following several witnessed seizures. Propofol was stopped at the beginning of recording but was restarted again senior care during the recording due to agitation and movement. EEG DESCRIPTION The recording is continuous, there is no well-developed posterior dominant rhythm or anterior posterior gardient. The background consists of mostly theta and alpha range activity that is symmetric. There is also intermittent beta range activity noted bilaterally. There are focal epileptiform discharges intermittently noted in the left anterior temporal region (T3). Normal sleep architecture was not observed. No electrographic seizures are noted. No activation procedures were performed due to patient's clinical status. IMPRESSION This is an abnormal EEG due to: 1. Abnormal slowing of background which can be seen in the setting of encephalopathy. 2. Epileptiform discharges arising from the left anterior temporal region which may suggest a decrease threshold to have seizure from a focal-onset mechanism. 3. Diffuse beta range activity which is likely secondary to sedative medication effect (propofol). Clinical correlation is recommended.
[2023-01-01 11:46] LABS: Glucose Point of Care 288 mg/dl (65-105)
[2023-01-01 12:37] LABS: Alveolar/Arterial O2 Gradient 76.3 mmHg; Base Excess ABG -3.4 mEq/l (+/-2.0); Fractional Inspired Oxygen 32 %; HCO3 ABG 22.4 mEq/l (22.0-26.0); Oxygen Content ABG 19.8 %vol (16.0-22.0); Oxygen Saturation ABG 97.3 % (95.0-100.0); PCO2 ABG 42.9 mmHg (35.0-45.0); PO2 ABG 101.7 mmHg (80.0-100.0); PO2 FiO2 Ratio Arterial Blood 3.18 %; Total Hemoglobin 14.6 g/dL (12.0-18.0); pH ABG 7.335 (7.350-7.450)
[2023-01-01 12:38] LABS: Device NASAL CANNULA; Modified Allen's Test Pass; Site Drawn RIGHT RADIAL
[2023-01-01] MEDS: DEXAMETHASONE SOD PHOS INJ 4 MG/ML VIAL IV PUSH ×3 (12:59→23:33)
--- NOTE | 2023-01-01 14:11 | WPDNEURCNPN ---
Assessment and Plan Assessment and plan (1) New onset seizure: Code(s): R56.9 - Unspecified convulsions Status: Acute (2) History of CVA (cerebrovascular accident): Code(s): Z86.73 - Personal history of transient ischemic attack (TIA), and cerebral infarction without residual deficits Status: Chronic (3) Sepsis: Code(s): A41.9 - Sepsis, unspecified organism Status: Acute Plan Mr. Ann is a 62 year old male with a history of prior stroke, current admitted after presenting with new onset seizures. - Agree with maintenance Keppra 1g BID - Waiting on MRI brain w/o contrast - No driving until seizure free for 6 months Consult date: 01/01/23 Time Seen: 14:11 Reason for consult: Seizure HPI: Bayron Ann is a 62 year old male with a past medical history of BPH, chronic anemia, CKD, heart failure, CAD s/p bypass, depression, gout, prior stroke with residulal L hemiplegia, HLD, HTN, DM, hypothyroidism who presented from his [facility] due to seizure like activity. EMS was called and patient was brought to [facility] ED. He was given ativan en route. In the ED patient has notable GTC activity of the R upper and lower extremity. He had three more seizures, resulting in him receing more doses of Ativan. Due to persistent seizures, patient was intubated for airway protection and started on propofol for sedation. He was given Keppra 2 g load and admitted to the ICU. CT head was negative for any acute process. UDS was positive for barbiturates. CT head showed old R MCA territory infarct. Patient was switched to Precedex this morning and then intubated. He is currently being treated for wound infection pneumonia. EEG done this morning which showed generalized slowing. Review of Systems Review of Systems: ROS unobtainable: Yes unobtainable due to medical condition and unobtainable due to mental status [facility] Past Medical History Medical History Benign prostatic hyperplasia Chronic anemia CKD (chronic kidney disease) stage 3, GFR 30-59 ml/min Colon cancer screening Combined systolic and diastolic congestive heart failure Coronary artery disease Status post three-vessel bypass and left ventricular aneurysm repair in February 2019 at [facility]. 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 Hyperlipidemia Hypertension Hypothyroidism Insulin dependent diabetes mellitus Hemoglobin A1c was 7.7% on 04/19/2021. Ischemic cardiomyopathy Most recent calculated EF was 31%. Myocardial infarction (~01/2019) Late presentation NH found to have severe three-vessel disease, transferred to [facility] for emergent bypass with perioperative ventricular fibrillation arrest. Surgical History Surgical History H/O cervical spine surgery Fusion History of coronary artery bypass graft (~02/2019) Three-vessel bypass and surgical repair of left ventricular aneurysm at [facility]. Family History Family History Mother Patient's mother is Hypertension Father Patient's father is Malignant neoplasm of prostate Social History Social History Social History: The patient lives at [facility]. His lives in their home. His daughter takes care of his . The patient had a set of twins a boy and a girl. 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 Surrogate decision maker: Josie Ann, . Code status: Full code. Smoking packs per day: 1 Smoking cigarettes per day: 20.0 Years smoked: 20 Smoking pack-years: 20.00 Smoking status: Unknown if ever smoked Tobacco type: ci
--- NOTE | 2023-01-01 15:44 | PM.IMPN ---
Progress Note: A&P Assessment and Plan (1) Sepsis: Code(s): A41.9 - Sepsis, unspecified organism Status: Acute Assessment and Plan: Continue vancomycin and cefepime, started 12/30 Blood cultures NGTD Foot wound culture growing Staph aureus, sensitivity pending, continue current antibiotics Sputum culture growing Staph aureus, sensitivities pending Wound culture showing gram-positive cocci in clusters as well as Staph aureus, sensitivities pending (2) Seizure: Code(s): R56.9 - Unspecified convulsions Status: Acute Assessment and Plan: Recurrent seizures noted, CT of the brain nonacute, MRI pending Seizure precautions, appreciate neurology consultation Continue Keppra 1 g b.i.d. 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: Code(s): L89.624 - Pressure ulcer of left heel, stage 4 Status: Acute Assessment and Plan: Appreciate Wound Care consult, follow-up wound culture, Staph aureus growing, sensitivities pending (5) Insulin dependent diabetes mellitus: Status: Chronic Assessment and Plan: Continue Lantus, Accu-Cheks, sliding scale insulin (6) Hypothyroidism: Qualifiers: Hypothyroidism type: unspecified Qualified Code(s): E03.9 - Hypothyroidism, unspecified Code(s): E03.9 - Hypothyroidism, unspecified Status: Chronic Assessment and Plan: Continue levothyroxine (7) Hypertension: Qualifiers: Hypertension type: primary hypertension Qualified Code(s): I10 - Essential (primary) hypertension Code(s): I10 - Essential (primary) hypertension Status: Chronic Assessment and Plan: Continue hydralazine as needed, stable (8) History of CVA (cerebrovascular accident): Code(s): Z86.73 - Personal history of transient ischemic attack (TIA), and cerebral infarction without residual deficits Status: Chronic Assessment and Plan: Patient with history of CVA with left hemiparesis Plan DVT prophylaxis: Lovenox SQ Stress ulcer prophylaxis: Protonix Nutrition: Tolerating tube feeds Code Status: Full code Subjective Date/time seen: 01/01/23 15:44 Interval history: Patient recently extubated earlier this morning. Sitting up in bed asking for ice chips. Voice is somewhat hoarse, no other complaints. Patient is remember why end of need intubated. No overnight events noted. No fevers. Review of Systems Review of Systems: 12 point review of systems was assessed and was negative except as noted in the HPI Exam Narrative: General: No acute distress, alert and oriented per baseline, comfortable on nasal cannula HEENT: Atraumatic, normocephalic, mucous membranes moist CV: Regular rate and rhythm, S1, S2 Lungs: Coarse breath sounds throughout, moderate air entry Abdomen: Soft, nontender, nondistended Extremities: Normal to inspection Skin: No rashes noted, no lesions or wounds seen Psych: Euthymic, normal affect Objective Data Vital Signs Vital Signs: Vital Signs - 24 hr 12/31/22 16:00 12/31/22 16:00 12/31/22 16:00 Temperature 98.8 F Pulse Rate 72 71 71 Respiratory Rate 16 16 Blood Pressure 137/74 Pulse Oximetry 98 98 Oxygen Delivery Mechanical Ventilation Oxygen Flow Rate Fraction of Inspired Oxygen 30 12/31/22 16:45 12/31/22 18:00 12/31/22 18:00 Temperature Pulse Rate 74 70 70 Respiratory Rate 20 Blood Pressure 134/69 Pulse Oximetry 99 79 L Oxygen Delivery Mechanical Ventilation Oxygen Flow Rate Fraction of Inspired Oxygen 30 12/31/22 19:36 12/31/22 19:49 12/31/22 19:57 Temperature Pulse Rate 65 69 69
[2023-01-01 18:14] LABS: Glucose Point of Care 285 mg/dl (65-105)
[2023-01-01] MEDS: rOPINIRole HCL 1 MG TABLET 3 MG PO (20:36)
[2023-01-01] MEDS: LORATADINE 5 MG TABLET PO (20:37)
[2023-01-01] MEDS: ATORVASTATIN 40 MG TABLET PO (20:37)
[2023-01-01] MEDS: LATANOPROST 0.005% OP SOLN 2.5 ML BTL 1 DROP EACH EYE (20:38)
[2023-01-01 23:50] LABS: Glucose Point of Care 217 mg/dl (65-105)
[2023-01-02] VITALS (11 sets, daily range): BP systolic 121–143; BP diastolic 55–97; PULSE 66–91; RESP 15–22; TEMP 36.4–36.9; O2SAT 92–97
[2023-01-02 04:49] LABS: Basophils Percent Auto 0.3 % (0.2-1.2); Hematocrit 42.6 % (42.0-52.0); Hemoglobin 13.8 g/dL (14.0-18.0); Immature Granulocyte Absolute 0.15 K/mm3 (0.00-0.031); Immature Granulocyte Percent A 1.1 % (0-0.5); Lymphocytes Absolute Auto 0.68 K/mm3 (0.9-3.2); Lymphocytes Percent Auto 5.1 % (18.3-44.2); Mean Corpuscular HGB Conc 32.4 g/dl (32-36); Mean Corpuscular Hemoglobin 29.7 pg (26-34); Mean Corpuscular Volume 91.8 fl (80-100); Mean Platelet Volume 11.4 fl (7.4-10.4); Monocytes Absolute Auto 0.7 K/mm3 (0.1-0.6); Monocytes Percent Auto 4.9 % (2.6-8.5); Neutrophils Absolute Auto 11.8 K/mm3 (1.3-6.7); Neutrophils Percent Auto 88.6 % (45.5-73.1); Platelet Count Result 160 k/mm3 (150-375); Red Blood Count 4.64 M/mm3 (4.6-6.20); Red Cell Distribution Width 15.8 % (11.5-14.5); White Blood Count 13.3 K/mm3 (4.5-10.0)
[2023-01-02 04:59] LABS: INR 1.3; Prothrombin Time 15.6 Seconds (11.1-14.7)
[2023-01-02 05:07] LABS: Alanine Aminotransferase 17 U/L (6-50); Albumin Level 3.9 g/dL (3.5-5.1); Alkaline Phosphatase 81 U/L (38-126); Anion Gap 8 mmol/L (8-16); Aspartate Amino Transferase 18 U/L (17-59); Bilirubin,Total 0.6 mg/dL (0.2-1.3); Blood Urea Nitrogen 35 mg/dL (9-20); Calcium 8.9 mg/dL (8.4-10.2); Carbon Dioxide 26 mmol/L (22-30); Chloride 107 mmol/L (98-107); Estimated CRCL calculation 83 ml/min; Estimated Glomerular Filt Rate > 60; Glucose 205 mg/dL (65-110); Phosphorus 3.6 mg/dL (2.5-4.5); Potassium 3.9 mmol/L (3.4-5.0); Sodium 141 mmol/L (137-145)
[2023-01-02] MEDS: LEVOTHYROXINE SODIUM INJ 100 MCG/5 ML VIAL 68 MCG IV PUSH (05:35)
[2023-01-02] MEDS: DEXAMETHASONE SOD PHOS INJ 4 MG/ML VIAL IV PUSH (05:35)
[2023-01-02 05:40] LABS: Glucose Point of Care 195 mg/dl (65-105)
[2023-01-02 05:41] LABS: Alveolar/Arterial O2 Gradient 28.5 mmHg; Base Excess ABG 0.3 mEq/l (+/-2.0); Carboxyhemoglobin 0.8 % THb (0-2.0); Fractional Inspired Oxygen 21 %; HCO3 ABG 24.7 mEq/l (22.0-26.0); Methemoglobin ABG 0.1 %THb (0-1.5); Oxygen Content ABG 19.7 %vol (16.0-22.0); Oxygen Saturation ABG 95.1 % (95.0-100.0); Oxyhemoglobin 94.1 % THb (90.0-100.0); PCO2 ABG 39.4 mmHg (35.0-45.0); PO2 ABG 74.1 mmHg (80.0-100.0); PO2 FiO2 Ratio Arterial Blood 3.53 %; Total Hemoglobin 14.9 g/dL (12.0-18.0); pH ABG 7.415 (7.350-7.450)
[2023-01-02 05:42] LABS: Device ROOM AIR; Modified Allen's Test Pass; Site Drawn RIGHT RADIAL
--- NOTE | 2023-01-02 08:58 | WPDINTPN ---
Progress Note: A&P Assessment and Plan (1) Sepsis: Code(s): A41.9 - Sepsis, unspecified organism Status: Acute Assessment and Plan: Secondary to left leg wound infection and possible pneumonia -chest x-ray this morning showed left lower lobe infiltrate -12/28/2022 blood cultures negative x2 so far -12/28/2022 culture from the foot wound is growing Staph Aureus -12/29: sputum -MRSA -12/30: MRSA screen is positive -continue vancomycin and cefepime (12/30) to treat wound infection and possible pneumonia (2) Seizure: Code(s): R56.9 - Unspecified convulsions Status: Acute Assessment and Plan: Patient presented with multiple seizures, requiring intubation for airway protection -patient was loaded with Keppra 1 g IV x2 occasions on admission -continue 1 g IV q.12 hours -Ativan p.r.n. -seizure precautions -12/28/2022: CT scan of the brain no acute intracranial process, stable appearance of an old infarct in the expected vascular distribution of the right middle cerebral artery -neurology is following -01/01 EEG This is an abnormal EEG due to: 1. Abnormal slowing of background which can be seen in the setting of encephalopathy. 2. Epileptiform discharges arising from the left anterior temporal region which may suggest a decrease threshold to have seizure from a focal-onset mechanism. 3. Diffuse beta range activity which is likely secondary to sedative medication effect (propofol). Clinical correlation is recommended. -MRIs ordered and pending -seizure precautions. P.r.n. 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: Code(s): L89.624 - Pressure ulcer of left heel, stage 4 Status: Acute Assessment and Plan: Wound care is following the patient for his left heel ulcer -wound cultures and antibiotics as above (5) Insulin dependent diabetes mellitus: Status: Chronic Assessment and Plan: Continue Accu-Cheks and sliding scale insulin Diabetic diet (6) Hypothyroidism: Qualifiers: Hypothyroidism type: unspecified Qualified Code(s): E03.9 - Hypothyroidism, unspecified Code(s): E03.9 - Hypothyroidism, unspecified Status: Chronic Assessment and Plan: Continue levothyroxine (7) Hypertension: Qualifiers: Hypertension type: primary hypertension Qualified Code(s): I10 - Essential (primary) hypertension Code(s): I10 - Essential (primary) hypertension Status: Chronic Assessment and Plan: Blood pressures are stable at this time - On hydralazine p.r.n -started on home carvedilol -continue Lasix (8) History of CVA (cerebrovascular accident): Code(s): Z86.73 - Personal history of transient ischemic attack (TIA), and cerebral infarction without residual deficits Status: Chronic Assessment and Plan: Patient with history of CVA with left hemiparesis -12/28 CT scan of the brain as above -continue home dose primidone, pregabalin, baclofen Plan DVT prophylaxis: Continue Eliquis, patient takes at half-way Stress ulcer prophylaxis: Protonix Nutrition: Tolerating tube feeds, currently on hold for possible extubation Code Status: Full code Patient was evaluated by speech therapy and modified diet as per recommendations ordered. Incentive spirometry, up in chair, PT OT Transfer out of ICU today Subjective Date/time seen: 01/02/23 He was extubated yesterday after
[2023-01-02] MEDS: carvediloL 3.125 MG TABLET PO (09:00)
[2023-01-02] MEDS: BACLOFEN 5 MG TABLET PO ×3 (09:00→23:29)
[2023-01-02] MEDS: amLODIPine BESYLATE 2.5 MG TABLET PO (09:00)
[2023-01-02] MEDS: APIXABAN 5 MG TABLET PO ×2 (09:00→20:05)
[2023-01-02] MEDS: PRIMIDONE 50 MG TABLET PO ×3 (09:01→16:56)
[2023-01-02] MEDS: DULoxetine HCL 60 MG CAPSULE.DR PO (09:01)
[2023-01-02] MEDS: PREGABALIN (*CRX) 75 MG CAPSULE 150 MG PO ×2 (09:01→16:56)
[2023-01-02] MEDS: FUROSEMIDE INJ 40 MG/4 ML VIAL IV PUSH (09:03)
[2023-01-02] MEDS: PANTOPRAZOLE SODIUM IV 40 MG VIAL IV PUSH (09:03)
[2023-01-02] MEDS: levETIRAcetam 1000MG/NACL100ML 1,000 MG/100 ML BAG 400 MG IVPB ×2 (09:03→20:02)
[2023-01-02] MEDS: SILVERGEL (ELTA) 45 ML 1 APPLIC TOPICAL (09:04)
[2023-01-02] MEDS: BENZONATATE 100 MG CAPSULE PO (09:04)
[2023-01-02] MEDS: SCOPOLAMINE 1.5 MG PATCH TRANSDERM (09:04)
--- NOTE | 2023-01-02 09:14 | PCSTNOTE ---
Please refer to the Bedside Swallow Evaluation in the EMR. Please note, silent aspiration cannot be ruled out at bedside.
--- NOTE | 2023-01-02 10:48 | PCFNICU ---
ICU Rounding Note: Pt current nutrition is Soft and Bite Sized Level 6/DBCC Last recorded weight is 115.7 kg. Bowel Motility:+Bm reported 01/02 Labs Reviewed:Glu 205, BUN 35 Meds Noted:Keppra, Cylindsayalta, Eliquis, Lasanabelle Skin: Left heel-DM ulcer Additional Notes: Patient had swallow study today, diet order has advanced to a soft and bite sized, Level 6/DBCC. Tolerating diet. Agree with diet orders. Monitoring every 7 days.
[2023-01-02 12:15] LABS: Glucose Point of Care 356 mg/dl (65-105)
[2023-01-02 12:15] LABS: Glucose Point of Care 324 mg/dl (65-105)
[2023-01-02] MEDS: INSULIN ASPART (*BKC) 100 UNITS/ML SUB-Q ×2 (12:21→16:57)
[2023-01-02] MEDS: CEFEPIME 2 GM/NS 50 ML 2 GM/50 ML BAG IVPB ×2 (12:47→23:29)
[2023-01-02 17:05] LABS: Glucose Point of Care 233 mg/dl (65-105)
[2023-01-02] MEDS: rOPINIRole HCL 1 MG TABLET 3 MG PO (20:05)
[2023-01-02] MEDS: LORATADINE 5 MG TABLET PO (20:05)
[2023-01-02] MEDS: LATANOPROST 0.005% OP SOLN 2.5 ML BTL 1 DROP EACH EYE (20:06)
[2023-01-02] MEDS: ATORVASTATIN 40 MG TABLET PO (20:06)
[2023-01-02 20:29] LABS: Glucose Point of Care 225 mg/dl (65-105)
[2023-01-03] VITALS (14 sets, daily range): BP systolic 99–152; BP diastolic 60–80; PULSE 66–82; RESP 18; TEMP 36.4–36.5; O2SAT 94–97
--- NOTE | 2023-01-03 00:43 | PC.NURSE ---
This patient, Bayron Ann, was transferred to [[id number]] on 01/03/23 at 0043. Personal belongings sent with patient. Report given. Appropriate documentation sent with patient.
--- NOTE | 2023-01-03 01:01 | PC.NURSE ---
RECEIVED PT FROM ICU PER BED. PT VOICES NO C/O
[2023-01-03 05:15] LABS: Alanine Aminotransferase 19 U/L (6-50); Albumin Level 3.4 g/dL (3.5-5.1); Alkaline Phosphatase 73 U/L (38-126); Anion Gap 7 mmol/L (8-16); Aspartate Amino Transferase 20 U/L (17-59); Basophils Absolute Auto 0.1 K/mm3 (0.0-0.1); Basophils Percent Auto 0.7 % (0.2-1.2); Bilirubin,Total 0.6 mg/dL (0.2-1.3); Blood Urea Nitrogen 42 mg/dL (9-20); Carbon Dioxide 24 mmol/L (22-30); Chloride 108 mmol/L (98-107); Eosinophils Absolute Auto 0.1 K/mm3 (0-0.3); Estimated CRCL calculation 83 ml/min; Estimated Glomerular Filt Rate > 60; Glucose 194 mg/dL (65-110); Hematocrit 39.2 % (42.0-52.0); Hemoglobin 12.6 g/dL (14.0-18.0); Immature Granulocyte Absolute 0.21 K/mm3 (0.00-0.031); Immature Granulocyte Percent A 1.5 % (0-0.5); Lymphocytes Absolute Auto 1.47 K/mm3 (0.9-3.2); Lymphocytes Percent Auto 10.8 % (18.3-44.2); Mean Corpuscular HGB Conc 32.1 g/dl (32-36); Mean Corpuscular Hemoglobin 29.5 pg (26-34); Mean Corpuscular Volume 91.8 fl (80-100); Mean Platelet Volume 11.9 fl (7.4-10.4); Monocytes Absolute Auto 1.1 K/mm3 (0.1-0.6); Neutrophils Absolute Auto 10.7 K/mm3 (1.3-6.7); Phosphorus 2.8 mg/dL (2.5-4.5); Platelet Count Result 150 k/mm3 (150-375); Potassium 3.4 mmol/L (3.4-5.0); Red Blood Count 4.27 M/mm3 (4.6-6.20); Red Cell Distribution Width 15.4 % (11.5-14.5); Sodium 139 mmol/L (137-145); White Blood Count 13.7 K/mm3 (4.5-10.0)
[2023-01-03 05:30] LABS: INR 1.3
[2023-01-03] MEDS: LEVOTHYROXINE SODIUM INJ 100 MCG/5 ML VIAL 68 MCG IV PUSH (06:13)
[2023-01-03 08:28] LABS: Glucose Point of Care 163 mg/dl (65-105)
[2023-01-03] MEDS: levETIRAcetam 1000MG/NACL100ML 1,000 MG/100 ML BAG 400 MG IVPB (08:56)
[2023-01-03] MEDS: FUROSEMIDE INJ 40 MG/4 ML VIAL IV PUSH (08:57)
[2023-01-03] MEDS: PREGABALIN (*CRX) 75 MG CAPSULE 150 MG PO ×2 (08:57→16:03)
[2023-01-03] MEDS: DULoxetine HCL 60 MG CAPSULE.DR PO (08:57)
[2023-01-03] MEDS: PANTOPRAZOLE SODIUM IV 40 MG VIAL IV PUSH (08:57)
[2023-01-03] MEDS: APIXABAN 5 MG TABLET PO ×2 (09:02→20:42)
[2023-01-03] MEDS: BACLOFEN 5 MG TABLET PO ×2 (09:02→16:03)
[2023-01-03] MEDS: PRIMIDONE 50 MG TABLET PO ×3 (09:02→16:03)
[2023-01-03] MEDS: SILVERGEL (ELTA) 45 ML 1 APPLIC TOPICAL (09:50)
[2023-01-03] MEDS: amLODIPine BESYLATE 2.5 MG TABLET PO (10:39)
[2023-01-03] MEDS: carvediloL 3.125 MG TABLET PO (10:40)
[2023-01-03 12:17] LABS: Glucose Point of Care 239 mg/dl (65-105)
[2023-01-03] MEDS: INSULIN ASPART (*BKC) 100 UNITS/ML SUB-Q ×2 (12:29→17:41)
[2023-01-03] MEDS: CEFEPIME 2 GM/NS 50 ML 2 GM/50 ML BAG IVPB (14:05)
--- NOTE | 2023-01-03 15:13 | PC.NURSE ---
On 01/03/23, the student, [Lisa Arthur], provided care and completed [facility] documentation on this patient. I have reviewed the student's documentation and agree with the findings.
[2023-01-03 17:34] LABS: Glucose Point of Care 244 mg/dl (65-105)
--- NOTE | 2023-01-03 18:19 | PM.IMPN ---
Progress Note: A&P Assessment and Plan (1) Sepsis: Code(s): A41.9 - Sepsis, unspecified organism Status: Acute Assessment and Plan: Secondary to left leg wound infection and possible pneumonia -chest x-ray this morning showed left lower lobe infiltrate -12/28/2022 blood cultures negative x2 so far -12/28/2022 culture from the foot wound is growing Staph Aureus -12/29: sputum -MRSA -12/30: MRSA screen is positive -continue vancomycin and cefepime (12/30) to treat wound infection and possible pneumonia (2) Seizure: Code(s): R56.9 - Unspecified convulsions Status: Acute Assessment and Plan: Patient presented with multiple seizures, requiring intubation for airway protection -patient was loaded with Keppra 1 g IV x2 occasions on admission and continued on 1gm Q12 -12/28/2022: CT scan of the brain no acute intracranial process, stable appearance of an old infarct in the expected vascular distribution of the right middle cerebral artery -neurology is following -01/01 EEG This is an abnormal EEG due to: 1. Abnormal slowing of background which can be seen in the setting of encephalopathy. 2. Epileptiform discharges arising from the left anterior temporal region which may suggest a decrease threshold to have seizure from a focal-onset mechanism. 3. Diffuse beta range activity which is likely secondary to sedative medication effect (propofol). Clinical correlation is recommended. -Brain MRI showing old infarct in the right MCA territory. -Continue seizure precautions and P.r.n. 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 The patient's blood glucose was reviewed on 01/03 Glucose remains poorly controlled. Continue AccuCheks covering with sliding scale. Hypoglycemia protocol available as needed. Resume lantus Diabetic diet (6) Hypothyroidism: Qualifiers: Hypothyroidism type: unspecified Qualified Code(s): E03.9 - Hypothyroidism, unspecified Code(s): E03.9 - Hypothyroidism, unspecified Status: Chronic Assessment and Plan: TSH 0.25. Continue levothyroxine and change back to oral (7) Hypertension: Qualifiers: Hypertension type: primary hypertension Qualified Code(s): I10 - Essential (primary) hypertension Code(s): I10 - Essential (primary) hypertension Status: Chronic Assessment and Plan: Patient's blood pressure was reviewed on 01/03 Blood pressure remains well controlled. Will continue current medications. (8) History of CVA (cerebrovascular accident): Code(s): Z86.73 - Personal history of transient ischemic attack (TIA), and cerebral infarction without residual deficits Status: Chronic Assessment and Plan: Patient with history of CVA with left hemiparesis -12/28 CT and MRI of the brain as above -continue home dose primidone, pregabalin, baclofen Plan DVT prophylaxis: Eliquis Stress ulcer prophylaxis: Protonix Code Status: Full code Patient was evaluated by speech therapy and modified diet as per recommendations ordere
[2023-01-03] MEDS: LATANOPROST 0.005% OP SOLN 2.5 ML BTL 1 DROP EACH EYE (20:40)
[2023-01-03] MEDS: BRIMONIDINE TARTRATE 0.2% OP SOLN 5 ML BTL 1 DROP EACH EYE (20:41)
[2023-01-03] MEDS: levETIRAcetam 500 MG TABLET 1000 MG PO (20:42)
[2023-01-03] MEDS: rOPINIRole HCL 1 MG TABLET 3 MG PO (20:42)
[2023-01-03] MEDS: ATORVASTATIN 40 MG TABLET PO (20:42)
[2023-01-03] MEDS: FINASTERIDE 5 MG TABLET PO (20:42)
[2023-01-03] MEDS: LORATADINE 5 MG TABLET PO (20:42)
[2023-01-03] MEDS: TAMSULOSIN HCL 0.4 MG CAPSULE 0.8 MG PO (20:44)
[2023-01-03] MEDS: metroNIDAZOLE 250 MG TABLET 500 MG PO (20:45)
[2023-01-03] MEDS: INSULIN GLARGINE (*BKC) 100 UNITS/ML 40 UNITS SUB-Q (20:48)
[2023-01-03 22:04] LABS: Glucose Point of Care 221 mg/dl (65-105)
[2023-01-04] VITALS (8 sets, daily range): BP systolic 122–129; BP diastolic 63–64; PULSE 67–82; RESP 16; TEMP 36.5–36.8; O2SAT 96–97
[2023-01-04] MEDS: CEFEPIME 2 GM/NS 50 ML 2 GM/50 ML BAG IVPB ×2 (00:47→12:05)
[2023-01-04] MEDS: BACLOFEN 5 MG TABLET PO ×3 (00:47→16:37)
[2023-01-04 06:06] LABS: Alanine Aminotransferase 20 U/L (6-50); Albumin Level 3.6 g/dL (3.5-5.1); Alkaline Phosphatase 80 U/L (38-126); Anion Gap 6 mmol/L (8-16); Aspartate Amino Transferase 29 U/L (17-59); Bilirubin,Total 0.6 mg/dL (0.2-1.3); Blood Urea Nitrogen 44 mg/dL (9-20); Calcium 8.1 mg/dL (8.4-10.2); Carbon Dioxide 25 mmol/L (22-30); Chloride 103 mmol/L (98-107); Estimated CRCL calculation 89 ml/min; Estimated Glomerular Filt Rate > 60; Glucose 229 mg/dL (65-110); Phosphorus 3.3 mg/dL (2.5-4.5); Potassium 4.1 mmol/L (3.4-5.0); Sodium 134 mmol/L (137-145)
[2023-01-04] MEDS: metroNIDAZOLE 250 MG TABLET 500 MG PO ×3 (06:11→21:01)
[2023-01-04] MEDS: LEVOTHYROXINE SODIUM 112 MCG TABLET PO (06:12)
[2023-01-04] MEDS: LEVOTHYROXINE SODIUM 25 MCG TABLET PO (06:12)
[2023-01-04 06:38] LABS: INR 1.2; Prothrombin Time 15.1 Seconds (11.1-14.7)
[2023-01-04] MEDS: BRIMONIDINE TARTRATE 0.2% OP SOLN 5 ML BTL 1 DROP EACH EYE ×2 (08:03→16:38)
[2023-01-04] MEDS: levETIRAcetam 500 MG TABLET 1000 MG PO ×2 (08:04→20:31)
[2023-01-04] MEDS: PANTOPRAZOLE 40 MG TABLET PO (08:05)
[2023-01-04] MEDS: PRIMIDONE 50 MG TABLET PO ×3 (08:05→16:38)
[2023-01-04] MEDS: DULoxetine HCL 60 MG CAPSULE.DR PO (08:05)
[2023-01-04] MEDS: FUROSEMIDE 40 MG TABLET PO (08:05)
[2023-01-04] MEDS: EMPAGLIFLOZIN 25 MG TABLET PO (08:05)
[2023-01-04] MEDS: amLODIPine BESYLATE 2.5 MG TABLET PO (08:06)
[2023-01-04] MEDS: APIXABAN 5 MG TABLET PO ×2 (08:06→20:30)
[2023-01-04] MEDS: allopurinoL 300 MG TABLET PO (08:06)
[2023-01-04] MEDS: FERROUS GLUCONATE 324 MG TABLET PO (08:06)
[2023-01-04] MEDS: THERAPEUTIC MULTIVITAMINS/MINERALS TAB (*BKC) 1 TABLET PO (08:06)
[2023-01-04] MEDS: MAGNESIUM OXIDE 400 MG TABLET PO (08:06)
[2023-01-04] MEDS: ARTIFICIAL TEARS OPHTH SOLN 15 ML BOTTLE 1 DROP EACH EYE ×2 (08:07→16:38)
[2023-01-04] MEDS: carvediloL 3.125 MG TABLET PO (08:07)
[2023-01-04] MEDS: SILVERGEL (ELTA) 45 ML 1 APPLIC TOPICAL (08:07)
[2023-01-04 08:10] LABS: Basophils Absolute Auto 0.1 K/mm3 (0.0-0.1); Basophils Percent Auto 0.9 % (0.2-1.2); Eosinophils Absolute Auto 0.3 K/mm3 (0-0.3); Eosinophils Percent Auto 2.9 % (0-4.4); Hematocrit 40.1 % (42.0-52.0); Hemoglobin 12.8 g/dL (14.0-18.0); Immature Granulocyte Absolute 0.25 K/mm3 (0.00-0.031); Immature Granulocyte Percent A 2.9 % (0-0.5); Immature Platelet Fraction Pct 5.6 % (0.9-11.2); Lymphocytes Absolute Auto 1.18 K/mm3 (0.9-3.2); Lymphocytes Percent Auto 13.5 % (18.3-44.2); Mean Corpuscular HGB Conc 31.9 g/dl (32-36); Mean Corpuscular Hemoglobin 30.1 pg (26-34); Mean Corpuscular Volume 94.4 fl (80-100); Mean Platelet Volume 12.4 fl (7.4-10.4); Monocytes Absolute Auto 0.9 K/mm3 (0.1-0.6); Monocytes Percent Auto 10.4 % (2.6-8.5); Neutrophils Absolute Auto 6.1 K/mm3 (1.3-6.7); Neutrophils Percent Auto 69.4 % (45.5-73.1); Platelet Count Result 136 k/mm3 (150-375); Red Blood Count 4.25 M/mm3 (4.6-6.20); Red Cell Distribution Width 15.6 % (11.5-14.5); White Blood Count 8.8 K/mm3 (4.5-10.0)
[2023-01-04] MEDS: PREGABALIN (*CRX) 75 MG CAPSULE 150 MG PO ×2 (08:10→16:40)
[2023-01-04 08:24] LABS: Glucose Point of Care 200 mg/dl (65-105)
[2023-01-04 09:33] LABS: Platelet Estimate Adequate (Adequate)
[2023-01-04 09:34] LABS: Anisocytosis 1+ (NORMAL); Schistocytes Rare (NORMAL); Tear Drop Cells 1+ (NORMAL)
--- NOTE | 2023-01-04 11:27 | PCOTNOTE ---
Attempted to see patient this am, however patient was sleeping upon entering and unable to arouse at this time.
[2023-01-04 12:27] LABS: Glucose Point of Care 263 mg/dl (65-105)
[2023-01-04] MEDS: INSULIN ASPART (*BKC) 100 UNITS/ML SUB-Q ×2 (12:28→16:49)
--- NOTE | 2023-01-04 14:20 | PM.IMPN ---
Progress Note: A&P Assessment and Plan (1) Sepsis: Code(s): A41.9 - Sepsis, unspecified organism Status: Acute Assessment and Plan: Secondary to left leg wound infection and possible pneumonia -chest x-ray this morning showed left lower lobe infiltrate -12/28/2022 blood cultures negative x2 so far -12/28/2022 culture from the foot wound is growing Staph Aureus -12/29: sputum -MRSA -12/30: MRSA screen is positive -continue vancomycin and cefepime (12/30) to treat wound infection and possible pneumonia; Flagyl added 01/03. Plan to change to Doxy and Flagyl at discharge to complete a 10 day course. (2) Seizure: Code(s): R56.9 - Unspecified convulsions Status: Acute Assessment and Plan: Patient presented with multiple seizures, requiring intubation for airway protection -patient was loaded with Keppra 1 g IV x2 occasions on admission and continued on 1gm Q12 -12/28/2022: CT scan of the brain no acute intracranial process, stable appearance of an old infarct in the expected vascular distribution of the right middle cerebral artery -neurology is following -01/01 EEG This is an abnormal EEG due to: 1. Abnormal slowing of background which can be seen in the setting of encephalopathy. 2. Epileptiform discharges arising from the left anterior temporal region which may suggest a decrease threshold to have seizure from a focal-onset mechanism. 3. Diffuse beta range activity which is likely secondary to sedative medication effect (propofol). Clinical correlation is recommended. -Brain MRI showing old infarct in the right MCA territory. -Continue seizure precautions and P.r.n. 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 The patient's blood glucose was reviewed on 01/04 Glucose remains poorly controlled. Continue AccuCheks covering with sliding scale. Hypoglycemia protocol available as needed. Advance lantus Diabetic diet (6) Hypothyroidism: Qualifiers: Hypothyroidism type: unspecified Qualified Code(s): E03.9 - Hypothyroidism, unspecified Code(s): E03.9 - Hypothyroidism, unspecified Status: Chronic Assessment and Plan: TSH 0.25. Continue levothyroxine (7) Hypertension: Qualifiers: Hypertension type: primary hypertension Qualified Code(s): I10 - Essential (primary) hypertension Code(s): I10 - Essential (primary) hypertension Status: Chronic Assessment and Plan: Patient's blood pressure was reviewed on 01/04 Blood pressure remains well controlled. Will continue current medications. (8) History of CVA (cerebrovascular accident): Code(s): Z86.73 - Personal history of transient ischemic attack (TIA), and cerebral infarction without residual deficits Status: Chronic Assessment and Plan: Patient with history of CVA with left hemiparesis -12/28 CT and MRI of the brain as above -continue home dose primidone, pregabalin, baclofen Plan DVT prophylaxis: Eliquis Stress ulcer prophylaxis: Protonix Code Status: Full code Patient was
[2023-01-04 17:07] LABS: Glucose Point of Care 209 mg/dl (65-105)
[2023-01-04] MEDS: INSULIN GLARGINE (*BKC) 100 UNITS/ML 48 UNITS SUB-Q (20:25)
[2023-01-04] MEDS: rOPINIRole HCL 1 MG TABLET 3 MG PO (20:30)
[2023-01-04] MEDS: FINASTERIDE 5 MG TABLET PO (20:30)
[2023-01-04] MEDS: TAMSULOSIN HCL 0.4 MG CAPSULE 0.8 MG PO (20:30)
[2023-01-04] MEDS: ATORVASTATIN 40 MG TABLET PO (20:30)
[2023-01-04] MEDS: LORATADINE 5 MG TABLET PO (20:30)
[2023-01-04] MEDS: LATANOPROST 0.005% OP SOLN 2.5 ML BTL 1 DROP EACH EYE (20:31)
[2023-01-04 20:37] LABS: Glucose Point of Care 235 mg/dl (65-105)
[2023-01-05] MEDS: BACLOFEN 5 MG TABLET PO ×2 (00:02→09:01)
[2023-01-05] MEDS: CEFEPIME 2 GM/NS 50 ML 2 GM/50 ML BAG IVPB (00:02)
[2023-01-05] MEDS: LEVOTHYROXINE SODIUM 25 MCG TABLET PO (05:42)
[2023-01-05] MEDS: metroNIDAZOLE 250 MG TABLET 500 MG PO (05:42)
[2023-01-05] MEDS: LEVOTHYROXINE SODIUM 112 MCG TABLET PO (05:42)
[2023-01-05 06:24] VITALS: BP 119/58; PULSE 67; RESP 16; TEMP 36.6; O2SAT 96
[2023-01-05 08:38] LABS: Glucose Point of Care 177 mg/dl (65-105)
[2023-01-05 08:46] LABS: Anion Gap 4 mmol/L (8-16); Blood Urea Nitrogen 39 mg/dL (9-20); Calcium 8.4 mg/dL (8.4-10.2); Carbon Dioxide 26 mmol/L (22-30); Chloride 105 mmol/L (98-107); Estimated CRCL calculation 95 ml/min; Estimated Glomerular Filt Rate > 60; Glucose 145 mg/dL (65-110); Potassium 3.7 mmol/L (3.4-5.0); Sodium 135 mmol/L (137-145)
[2023-01-05] MEDS: EMPAGLIFLOZIN 25 MG TABLET PO (08:59)
[2023-01-05] MEDS: PREGABALIN (*CRX) 75 MG CAPSULE 150 MG PO (08:59)
[2023-01-05] MEDS: levETIRAcetam 500 MG TABLET 1000 MG PO (08:59)
[2023-01-05 09:00] LABS: Vancomycin Trough 19.9 ug/mL (10.0-20.0)
[2023-01-05] MEDS: APIXABAN 5 MG TABLET PO (09:00)
[2023-01-05] MEDS: allopurinoL 300 MG TABLET PO (09:00)
[2023-01-05] MEDS: THERAPEUTIC MULTIVITAMINS/MINERALS TAB (*BKC) 1 TABLET PO (09:00)
[2023-01-05] MEDS: amLODIPine BESYLATE 2.5 MG TABLET PO (09:00)
[2023-01-05] MEDS: FUROSEMIDE 40 MG TABLET PO (09:01)
[2023-01-05] MEDS: MAGNESIUM OXIDE 400 MG TABLET PO (09:01)
[2023-01-05] MEDS: DULoxetine HCL 60 MG CAPSULE.DR PO (09:01)
[2023-01-05 09:02] VITALS: PULSE 67
[2023-01-05] MEDS: FERROUS GLUCONATE 324 MG TABLET PO (09:02)
[2023-01-05] MEDS: carvediloL 3.125 MG TABLET PO (09:02)
[2023-01-05] MEDS: PRIMIDONE 50 MG TABLET PO ×2 (09:03→12:33)
[2023-01-05] MEDS: PANTOPRAZOLE 40 MG TABLET PO (09:03)
[2023-01-05] MEDS: SCOPOLAMINE 1.5 MG PATCH TRANSDERM (09:04)
[2023-01-05] MEDS: BRIMONIDINE TARTRATE 0.2% OP SOLN 5 ML BTL 1 DROP EACH EYE (09:05)
[2023-01-05] MEDS: ARTIFICIAL TEARS OPHTH SOLN 15 ML BOTTLE 1 DROP EACH EYE (09:05)
[2023-01-05] MEDS: SILVERGEL (ELTA) 45 ML 1 APPLIC TOPICAL (09:10)
[2023-01-05 12:12] LABS: Glucose Point of Care 318 mg/dl (65-105)
[2023-01-05] MEDS: INSULIN ASPART (*BKC) 100 UNITS/ML SUB-Q (12:30)
--- NOTE | 2023-01-05 13:02 | PM.DS ---
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: Code(s): L89.624 - Pressure ulcer of left heel, stage 4 Status: Acute (6) Insulin dependent diabetes mellitus: Status: Chronic (7) Hypothyroidism: Qualifiers: Hypothyroidism type: unspecified Qualified Code(s): E03.9 - Hypothyroidism, unspecified Code(s): E03.9 - Hypothyroidism, unspecified Status: Chronic (8) Hypertension: Qualifiers: Hypertension type: primary hypertension Qualified Code(s): I10 - Essential (primary) hypertension Code(s): I10 - Essential (primary) hypertension Status: Chronic (9) History of CVA (cerebrovascular accident): Code(s): Z86.73 - Personal history of transient ischemic attack (TIA), and cerebral infarction without residual deficits Status: Chronic DS: Summary Hospital Course Reason for hospitalization: 62yo male with CKD, HTN, DM and CHF here for seizure. Please see H&P for details. Hospital Course: Patient presented to the emergency room after having seizure-like activities. He was found to have sepsis with the source being the left heel wound and/or pneumonia. Sputum culture grew MRSA. His left heel wound also grew MRSA. Completed 7 days of IV antibiotics for his sepsis. Plan is for him to be transition to doxycycline and Flagyl for 3 more days. Patient did require intubation for airway protection on admission due to the multiple seizures. He was loaded with Keppra IV continued on Keppra throughout his hospital course. His clinical condition improved and he was able to be extubated. EEG showed abnormal slowing of background consistent with encephalopathy. He had epileptiform discharges arising the left anterior temporal region. Brain MRI showing old infarcts in the right MCA territory no acute findings. Patient had clinical improvement. He overall did well and was able to be [facility]. Status at Discharge Cognitive/behavioral status at discharge: stable Time Spent with Patient Time attestation: Total time spent providing and/or coordinating discharge services: 35 minutes Time spent: Greater than 30 minutes Exam Narrative: AF 119/58 67 16 96% ra Gen - NARD Chest - few basilar crackles. nml RR CV - RRR S1/S2 Abd - Soft, NT/ND, Positive BS Ext - No pedal edema Psych - Nml mood and affect Skin - Warm and dry. Left heel with serous drainage from flat shallow ulcer with good granulation tissue. No surrounding erythema or strong odor. No purluence DS: Data Data Completed and Pending Labs on day of discharge: Labs from last 24 hours 01/05/23 01/05/23 01/05/23 12:08 08:22 07:55 Sodium 135 L Potassium 3.7 Chloride 105 Carbon Dioxide 26 Anion Gap 4 L BUN 39 H Creatinine 1.00 Estim Creat Clear Calc 95 Estimated GFR > 60 Glucose 145 H POC Capillary Glucose 318 H 177 H Calcium 8.4 Vancomycin Trough 01/05/23 01/04/23 01/04/23 07:55 20:24 16:47 Sodium Potassium Chloride Carbon Dioxide Anion Gap BUN Creatinine Estim Creat Clear Calc Estimated GFR Glucose POC Capillary Glucose 235 H 209 H Calcium Vancomycin Trough 19.9 Discharge Plan Discharge Attending physician on discharge: Rocael Corado Consulting providers: Joao Estrada Discharging Clinician: Rocael Corado Anti
[2023-01-05 14:15] LABS: EDCOVIDSCREEN Negative (Negative)
== END 2023-01-05 16:46 | DRG 870 ==
LOC: ANHED 14:42 → ANHIMU 19:34 → ANHICU 12-29 00:45 → ANH2MED 01-03 00:45
PROVIDERS: Internal Medicine; Nurse Practitioner; Admitting Provider Chiropractor; Emergency Provider Emergency Medicine; PCP Family Medicine; Visit Provider Internal Medicine
DX: A41.02 Sepsis due to Methicillin resistant Staphylococcus aureus (principal); I50.43 Acute on chronic combined systolic (congestive) and diastolic (congestive) heart failure; J18.9 Pneumonia, unspecified organism; L89.624 Pressure ulcer of left heel, stage 4; J96.01 Acute respiratory failure with hypoxia; I13.0 Hypertensive heart and chronic kidney disease with heart failure and stage 1 through stage 4 chronic kidney disease, or unspecified chronic kidney disease; I69.354 Hemiplegia and hemiparesis following cerebral infarction affecting left non-dominant side; R56.9 Unspecified convulsions; E03.9 Hypothyroidism, unspecified; E11.22 Type 2 diabetes mellitus with diabetic chronic kidney disease; N18.30 Chronic kidney disease, stage 3 unspecified; I25.2 Old myocardial infarction; I25.10 Atherosclerotic heart disease of native coronary artery without angina pectoris; E11.65 Type 2 diabetes mellitus with hyperglycemia; F32.A Depression, unspecified; N40.0 Benign prostatic hyperplasia without lower urinary tract symptoms; Z20.822 Contact with and (suspected) exposure to COVID-19; Z74.01 Bed confinement status; Z79.4 Long term (current) use of insulin; Z95.1 Presence of aortocoronary bypass graft; Z87.891 Personal history of nicotine dependence; Z79.899 Other long term (current) drug therapy
CPT/HCPCS: 36415; 36600; 70450; 70553; 71045; 80048; 80053; 80202; 80307; 81001; 82375; 82550; 82805; 82948; 83050; 83605; 83690; 83735; 84100; 84145; 84439; 84443; 84478; 84480; 84484; 85025; 85055; 85610; 85730; 87040; 87070; 87077; 87081; 87147; 87186; 87205; 87426; 87637; 92610; 93005; 93880; 94002; 94003; 94640; 95816; 96374; 96375; 97161; 97165; 97530; 97535; 99285; A9270; A9577; C9113; C9803; J0131; J0692; J1100; J1650; J1815; J1940; J1953; J2060; J2704; J3370; J7120

== ENCOUNTER 2023-01-07 18:48 | Inpatient (IN) | payer MEDICARE, MEDICAID, SELFPAY ==
[2023-01-07] VITALS (7 sets, daily range): BP systolic 143–181; BP diastolic 73–81; PULSE 89–97; RESP 16–26; O2SAT 95–100
--- NOTE | ~2023-01-07 | CT_ITS ---
EXAMINATION: CT brain wo con INDICATION: Confusion COMPARISON: 12/28/2022 TECHNIQUE: Standard unenhanced head CT. The dose-length product (DLP) was 681.00 mGy-cm. The mA was a djusted according to patient size. Iterative reconstruction technique was employed. FINDINGS: There is no acute intraparenchymal hemorrhage. No evidence of mass lesion. No evidence of a cute infarction. Again noted is an old infarct in the expected distribution of the right middle cereb ral artery. There is mild ex vacuo enlargement of the right lateral ventricle. Intracranial calcified cerebral atherosclerosis is noted. There are no extra-axial collections. There is no mass effect or midline shift. The orbits and soft tissues are unremarkable. The visualized sinuses and mastoid air c ells are well aerated. IMPRESSION: 1. Old right middle cerebral artery distribution infarct without acute intracranial abnormality. 2. Age related findings. Reviewed, dictated and finalized at location F. ORK ENGINEERING ADVISOR IMPRESSION: 1. Old right middle cerebral artery distribution infarct without acute intracra nial abnormality. 2. Age related findings.
--- NOTE | ~2023-01-07 | XR_ITS ---
MODIFIED ESOPHAGRAM HISTORY: Difficulty swallowing TECHNIQUE: Modified barium esophagram was performed on 01/08/2023. I administered fluoroscopy and perfo rmed the exam with speech pathologist. Patient was seated for lateral fluoroscopic imaging for inges tion of thin liquids, pudding, solids and quantified amounts, followed by thin liquids in uncontrolle d amounts. This was recorded on tape. A single fluoroscopic spot image was also recorded. The DAP for this procedure was 1.914 Gycm2. The amount of fluoroscopy time used during this procedure was 2.0 mi nutes. FINDINGS: Oral stage: Adequate function. Pharyngeal stage: Adequate function. Cervical/esophageal stage: Adequate function. IMPRESSION: Patient tolerated regular consistency oral feedings in the upright position. Please eric elate with speech pathologist findings and specific feeding recommendations. Reviewed, dictated and finalized at location A. ICITY PERSON IMPRESSION: Patient tolerated regular consistency oral feedings in the upright position. Please correlate with speech pathologist findings and specific feedi ng recommendations.
--- NOTE | ~2023-01-07 | XR_ITS ---
EXAMINATION: XR foot LT min 3V DATE: 01/07/2023 21:33 INDICATION: Left foot pain post recent debridement of a plantar wound at the left foot TECHNIQUE: Dorsoplantar, two oblique and lateral views of the left foot were obtained. COMPARISON: 06/09/2022 FINDINGS: Bone alignment is normal. No acute fracture. Moderate polyarticular osteoarthritis at the first metat arsophalangeal, the second and third tarsal metatarsal and first interphalangeal joints and mild oste oarthritis at the left ankle and remaining joints in the left foot. Moderate-sized plantar calcaneal spur. Now smoothly corticated margin along the posterior tuberosity of the calcaneus at the site of p rior erosions related osteomyelitis. No new erosions or osteolysis to suggest acute osteomyelitis. Ad ditional enthesophytes along the dorsal aspect of multiple tarsal bones. Diffuse soft tissue swelling about the left foot. No soft tissue gas. Scattered vascular calcifications. IMPRESSION: 1. Moderate polyarticular osteoarthritis in the left foot. 2. Interval healing of prior erosion related to osteitis. No regions suspicious for acute/ongoing ost eomyelitis. Reviewed, dictated and finalized at location A. L EQUIPMENT OPERATOR IMPRESSION: 1. Moderate polyarticular osteoarthritis in the left foot. 2. Interval healing of prior erosion related to osteitis. No regions suspicious for acute/ongoing osteomyelitis.
--- NOTE | ~2023-01-07 | XR_ITS ---
EXAMINATION: XR chest 1V portable INDICATION: Shortness of breath TECHNIQUE: Portable AP chest at 1927 hours COMPARISON: 01/04/2023 FINDINGS: Cardiomegaly is noted. There is a mild diffuse interstitial pattern. There is a small left pleural effusion. There is no pneumothorax. Median sternotomy wires and mediastinal surgical clips ar e seen, likely from prior coronary artery bypass grafting. IMPRESSION: 1. Cardiomegaly with mild pulmonary edema. 2. Small left pleural effusion. Reviewed, dictated and finalized at location F. IRATORY CARE PROGRAM DIRECTOR
--- NOTE | 2023-01-07 19:03 | ECG_ITS ---
Measurements Intervals [place] Rate: 97 P: 76 OK: 176 QRS: -31 QRSD: 128 T: 103 QT: 385 QTc: 491 Interpretive Statements SINUS RHYTHM LEFT AXIS DEVIATION POSSIBLE LEFT ATRIAL ENLARGEMENT INTRAVENTRICULAR CONDUCTION DELAY CANNOT RULE OUT SEPTAL INFARCT, AGE INDETERMINATE CONSIDER INFERIOR INFARCT, AGE INDETERMINATE ST-T WAVE ABNORMALITY IN HIGH LATERAL LEADS- CONSIDER ISCHEMIA ABNORMAL ECG COMPARED TO ECG 12/28/2022 14:54:49 NO SIGNIFICANT CHANGES Electronically Signed On 01-07-2023 21:08:43 GRADES 1 THROUGH 5 TEACHER by Valentín James D.O.
--- NOTE | 2023-01-07 19:30 | ED.AMS ---
HPI - Altered Mental Status General Chief Complaint: Altered Mental Status Stated Complaint: CHOKING EPISODE Time Seen by Provider: 01/07/23 18:54 Source: patient, EMS, RN notes reviewed and old records reviewed Mode of arrival: EMS Limitations: other (poor historian) History of Present Illness HPI narrative: This is a 62 year old male with history of left heel ulcer, seizures, CVA with residual left side weakness. sepsis who presents for evaluation of choking. EMS states patient has been reporting that he feels like he is choking on secretions. IT is reports that patient appeared to gasping for air . EMS reports patient's lungs are clear and normal oxygen saturation. EMS reports patient seems to be having episodes in which he may be going in and out of consciousness. Patient reports he is here to today for similar admission. He states that he was eating sloppy jasmeet today and he felt like he was choking. He also reports episode of nausea and vomiting. HE also reports left lower back pain since yesterday. He denies any falls. Related Data Home Medications Medication Instructions Recorded Confirmed aspirin 81 mg tablet,delayed 81 mg PO DAILY 03/30/21 12/29/22 release atorvastatin 40 mg tablet 40 mg PO HS 03/30/21 12/29/22 biotin 5,000 mcg disintegrating 5,000 mcg PO DAILY 03/30/21 12/29/22 tablet bisacodyl 10 mg rectal suppository 10 mg RECTAL DAILY PRN Constipation 03/30/21 12/29/22 insulin lispro 100 unit/mL 3 unit subcut AC 03/30/21 12/29/22 subcutaneous pen levothyroxine 137 mcg tablet 137 mcg PO QAM 03/30/21 12/29/22 pantoprazole 40 mg tablet,delayed 40 mg PO DAILY 03/30/21 12/29/22 release ropinirole 1 mg tablet 3 mg PO HS 03/30/21 12/29/22 tamsulosin 0.4 mg capsule 0.8 mg PO HS 03/30/21 12/29/22 ascorbic acid (vitamin C) 500 mg 500 mg PO BID 01/18/22 12/29/22 capsule duloxetine 60 mg capsule,delayed 60 mg PO DAILY 01/18/22 12/29/22 release magnesium hydroxide 400 mg/5 mL 30 ml PO HS PRN Constipation 01/18/22 12/29/22 oral suspension (Milk of Magnesia) polyethylene glycol 3350 17 gram 17 g PO QAM PRN Constipation 01/18/22 12/29/22 oral powder packet (Miralax) baclofen 5 mg tablet 5 mg PO TID 06/09/22 12/29/22 dulaglutide 0.75 mg/0.5 mL 0.75 mg subcut WEEKLY 06/09/22 12/29/22 subcutaneous pen injector (Trulicity) empagliflozin 25 mg tablet 25 mg PO DAILY 06/09/22 12/29/22 (Jardiance) ferrous gluconate 324 mg (38 mg 324 mg PO DAILY 06/09/22 12/29/22 iron) tablet insulin glargine-yfgn 100 unit/mL 55 unit subcut HS 06/09/22 12/29/22 subcutaneous solution ipratropium 0.5 mg-albuterol 3 mg 3 ml inhalation Q6H PRN Shortness 06/09/22 12/29/22 (2.5 mg base)/3 mL nebulization Of Breath soln latanoprost 0.005 % eye drops 1 drp EACH EYE HS 06/09/22 12/29/22 multivitamin with minerals (Daily 1 tablet PO DAILY ##0 06/09/22 12/29/22 Multivitamin-Minerals tablet) nystatin 100,000 unit/gram topical 1 applic topical BID PRN Fungal 06/09/22 12/29/22 powder (Nyamyc) rash potassium chloride 10 mEq 10 meq PO DAILY 06/09/22 12/29/22 capsule,extended release sodium phosphates 19 gram-7 118 ml RECTAL DAILY PRN 06/09/22 12/29/22 gram/118 mL enema (Fleet Enema) Constipation arginine-vitamin C-vitamin E oral See Rx Instructions .Route 11/30/22 12/29/22 4.5 gram-156 mg/9.2 gram powder .COMPLEX ##0 pkt (Arginaid) acetaminophen 500 mg tablet 500 mg PO Q8H PRN Mild Pain (Scale 12/29/22 12/29/22 Score 1-4) allopurinol 300 mg tablet 300 mg PO DAILY 12/29/22 12/29/22 amlodipine 2.5 mg tablet 2.5 mg PO DAILY 12/29/22 12/29/22 brimonidine 0.2 % eye drops 1 drp EACH EYE BID 12/29/22 12/29/22 diclofenac sodium 1 % topical gel 1 ea topical Q6H PRN mild pain to 12/29/22 12/29/22 hips/legs levocetirizine 5 mg tablet 2.5 mg PO HS 12/29/22 12/29/22 peg [id number] 1 1 drp EACH EYE BID 12/29/22 12/29/22 %-0.2 %-0.2 % eye drops (Artificial Tears ([id number])) pregabalin 75 mg cap
[2023-01-07 20:03] LABS: Basophils Absolute Auto 0.1 K/mm3 (0.0-0.1); Basophils Percent Auto 1.1 % (0.2-1.2); Eosinophils Absolute Auto 0.3 K/mm3 (0-0.3); Eosinophils Percent Auto 2.5 % (0-4.4); Hematocrit 44.3 % (42.0-52.0); Hemoglobin 14.2 g/dL (14.0-18.0); Immature Granulocyte Absolute 0.73 K/mm3 (0.00-0.031); Immature Granulocyte Percent A 5.8 % (0-0.5); Lymphocytes Absolute Auto 1.77 K/mm3 (0.9-3.2); Lymphocytes Percent Auto 14.1 % (18.3-44.2); Mean Corpuscular HGB Conc 32.1 g/dl (32-36); Mean Corpuscular Hemoglobin 30.1 pg (26-34); Mean Corpuscular Volume 94.1 fl (80-100); Mean Platelet Volume 11.6 fl (7.4-10.4); Monocytes Absolute Auto 0.9 K/mm3 (0.1-0.6); Monocytes Percent Auto 7.2 % (2.6-8.5); Neutrophils Absolute Auto 8.7 K/mm3 (1.3-6.7); Neutrophils Percent Auto 69.3 % (45.5-73.1); Platelet Count Result 189 k/mm3 (150-375); Red Blood Count 4.71 M/mm3 (4.6-6.20); Red Cell Distribution Width 15.4 % (11.5-14.5); White Blood Count 12.6 K/mm3 (4.5-10.0)
[2023-01-07 20:22] LABS: Lactic Acid Reflex 3.9 mmol/L (0.7-2.0)
[2023-01-07 20:24] LABS: Alanine Aminotransferase 56 U/L (6-50); Albumin Level 4.3 g/dL (3.5-5.1); Alkaline Phosphatase 147 U/L (38-126); Anion Gap 11 mmol/L (8-16); Aspartate Amino Transferase 45 U/L (17-59); Bilirubin,Total 0.4 mg/dL (0.2-1.3); Blood Urea Nitrogen 44 mg/dL (9-20); Calcium 8.7 mg/dL (8.4-10.2); Carbon Dioxide 21 mmol/L (22-30); Chloride 105 mmol/L (98-107); Estimated CRCL calculation 65 ml/min; Estimated Glomerular Filt Rate 51; Glucose 216 mg/dL (65-110); Magnesium 2.2 mg/dL (1.6-2.3); Potassium 4.4 mmol/L (3.4-5.0); Sodium 137 mmol/L (137-145)
[2023-01-07 20:35] LABS: NT Pro B Type Natriuretic Pept 1910 pg/mL (19.9-100); Troponin I < 0.012 ng/mL (0.000-0.034)
[2023-01-07] MEDS: levETIRAcetam 1000MG/NACL100ML 1,000 MG/100 ML BAG 400 MG IVPB (21:55)
[2023-01-07 22:46] LABS: Appearance Urine Clear (Clear); Bacteria Urine None Seen /hpf; Bilirubin Urine Negative (Negative); Blood Urine Negative (Negative); Color Urine Yellow (Yellow); Glucose Urine UA 3+ mg/dL (Negative); Ketones Urine Negative (Negative); Leukocyte Esterase Ur Negative LEU/UL (Negative); Nitrate Urine Negative (Negative); Non Pathogenic Casts 0-2; Protein Urine 2+ mg/dL (Negative); RBC Urine 0-2 /hpf (0-2); Squamous Epithelial Cell Urine None seen /hpf (Few); Urobilinogen Urine 0.2 mg/dL (<2.0); WBC Urine 0-5 /hpf
[2023-01-07 22:52] LABS: Add Urine Microscopic? YES; INR 1.1; Prothrombin Time 14.2 Seconds (11.1-14.7)
[2023-01-07 22:53] LABS: Partial Thromboplastin Time 33.9 SECONDS (22.3-36.8)
[2023-01-07 22:59] LABS: Reflex Lactic Acid Yes or No Add Lactic
[2023-01-08] VITALS (14 sets, daily range): BP systolic 119–165; BP diastolic 60–80; PULSE 64–102; RESP 14–20; TEMP 36.2–36.8; O2SAT 95–98; BMI 30.6
--- NOTE | 2023-01-08 00:49 | ADMGEN ---
This patient, Bayron Ann, was admitted to 2 Medical Room 260-. Patient/family oriented to hospital policies and general routines including ID bracelet, bed and alarms, visiting hours, pain management, procedures, bathroom and other care routines, personal items, smoking policy, room service/diet, and visiting hours. Information on how to activate the Rapid Response Team has been discussed. Patient/Family are encouraged to report perceived risks to care and to ask questions if they do not understand what they are told or what they should do.
[2023-01-08] MEDS: SODIUM CHLORIDE 0.9% IV 1,000 ML 75 ML IV CONT (01:06)
[2023-01-08 01:35] LABS: Creatine Kinase 68 U/L (55-170)
[2023-01-08 01:38] LABS: Lactic Acid 1.2 mmol/L (0.7-2.0)
[2023-01-08 02:00] LABS: Troponin I < 0.012 ng/mL (0.000-0.034)
--- NOTE | 2023-01-08 02:46 | PM.IMHP ---
H&P: HPI History of Present Illness Date/Time: 01/08/23 02:46 Chief Complaint: Difficulty eating, ?seizure-like activity? Narrative: 62-year-old male with past medical history of coronary artery disease, ischemic cardiomyopathy with mixed systolic and diastolic heart failure, essential hypertension, insulin-dependent diabetes, prior strokes, and recent hospitalization for status epilepticus and intubation for protection of airway due to seizure who presented to the ER from senior care facility via EMS due to seizure-like activity and difficulty swallowing. The patient in the ER complained that he was sent in due to difficulty swallowing. EMS report reported that the patient was having seizure-like activity in route. The entirety of the HPI comes from review of recent medical records and ER in EMS report. The patient was alert oriented for nursing staff but time of my evaluation the patient became tearful any time I tried to ask orientation questions. When asked the patient why he came to the ER he did not give me an answer but he had told both ER and the admitting nurse that he is having difficulty eating and swallowing. He had just been admitted on the due to seizure and was found have pneumonia and MRSA infection in his diabetic foot wound on the left foot. He was extubated on the . He was discharged hospital on the with prescriptions for Keppra 1 g q.12 hours Flagyl 500 mg q.8 hours and doxycycline 100 mg q.12 hours to completed completed on 01/08/2023. During that hospitalization an EEG which confirmed generalized background slowing and epileptiform discharges. Patient was post follow-up with Neurology in 4-6 weeks.. ER reports that the patient's seizure-like activity the involved patient clenching his right fist an arm. The ER prior to me that they could talk the patient through the episodes in a seem to respond and talk to them occasionally the patient had another when these episodes when he arrived to the medical floor in fact he had several of the episodes on the medical floor. When the patient arrived to the medical floor he was initially alert oriented and was answering all questions. The patient had told the nursing staff that he was coughing up phlegm that that tasted like fire. Told me that he has been short of breath but could not give me any details. He has a told the nurses on the floor that he has not slept in 1 week due to a stopping some of his medications. However the only medication that was stopped when he was discharged were topical medications and tramadol as this can increase the risk of seizures. He states that he was not getting his medications per his usual regimen at the assisted. However by the time I saw the patient he was tearful. He stated that he did not know where he was not thought that he was at the assisted. He was slow to answer questions and ultimately did not answer any orientation questions for me. He did state that is hands and feet were hurting. I did witness 1 of his episodes of seizure-like activity. The patient gripped the hand rail of the bed and was shaking the bed violently. He did not have any movement of his lower extremities at all. The episode happened while I was entering the room the patient was turned away from me so I could not see if there was any facial movement or eye involvement. He did seem to relax and like of the side of the bed and was following commands immediately after this episode. He did squeeze my hand with his right hand and follow make him answer my told him to let go. This episode ended Within approximately 10 seconds at the most vigorous portions of shaking. The patient started to get anxious and seemed to start shaking again but when I diverted his attention the shaking seemed to cease and it was not as violent. This episode was probably 10 seconds. Pictures of the patient's foot wound were reviewed as nursing staff had already re bandaged the patien
[2023-01-08 06:20] LABS: Basophils Absolute Auto 0.1 K/mm3 (0.0-0.1); Basophils Percent Auto 1.2 % (0.2-1.2); Eosinophils Absolute Auto 0.3 K/mm3 (0-0.3); Eosinophils Percent Auto 2.6 % (0-4.4); Hematocrit 42.1 % (42.0-52.0); Hemoglobin 13.8 g/dL (14.0-18.0); Lymphocytes Absolute Auto 1.72 K/mm3 (0.9-3.2); Lymphocytes Percent Auto 14.6 % (18.3-44.2); Mean Corpuscular HGB Conc 32.8 g/dl (32-36); Mean Corpuscular Hemoglobin 30.3 pg (26-34); Mean Corpuscular Volume 92.3 fl (80-100); Mean Platelet Volume 12.2 fl (7.4-10.4); Monocytes Percent Auto 8.1 % (2.6-8.5); Neutrophils Percent Auto 67.5 % (45.5-73.1); Platelet Count Result 188 k/mm3 (150-375); Red Blood Count 4.56 M/mm3 (4.6-6.20); Red Cell Distribution Width 15.4 % (11.5-14.5); White Blood Count 11.8 K/mm3 (4.5-10.0)
[2023-01-08 06:34] LABS: Alanine Aminotransferase 49 U/L (6-50); Albumin Level 3.8 g/dL (3.5-5.1); Alkaline Phosphatase 115 U/L (38-126); Anion Gap 7 mmol/L (8-16); Aspartate Amino Transferase 33 U/L (17-59); Bilirubin,Total 0.4 mg/dL (0.2-1.3); Blood Urea Nitrogen 36 mg/dL (9-20); Calcium 8.5 mg/dL (8.4-10.2); Carbon Dioxide 22 mmol/L (22-30); Chloride 110 mmol/L (98-107); Estimated CRCL calculation 89 ml/min; Estimated Glomerular Filt Rate > 60; Glucose 145 mg/dL (65-110); Potassium 3.9 mmol/L (3.4-5.0); Sodium 139 mmol/L (137-145)
[2023-01-08 08:02] LABS: Glucose Point of Care 147 mg/dl (65-105)
[2023-01-08] MEDS: FERROUS GLUCONATE 324 MG TABLET PO (09:24)
[2023-01-08] MEDS: metroNIDAZOLE 250 MG TABLET 500 MG PO ×3 (09:24→21:00)
[2023-01-08] MEDS: BRIMONIDINE TARTRATE 0.2% OP SOLN 5 ML BTL 1 DROP EACH EYE ×2 (09:24→18:21)
[2023-01-08] MEDS: LEVOTHYROXINE SODIUM 25 MCG TABLET PO (09:25)
[2023-01-08] MEDS: POTASSIUM CHLORIDE 10 MEQ TABLET.ER PO (09:25)
[2023-01-08] MEDS: BACLOFEN 5 MG TABLET PO ×3 (09:25→18:21)
[2023-01-08] MEDS: PRIMIDONE 50 MG TABLET PO ×3 (09:25→18:57)
[2023-01-08] MEDS: DOXYCYCLINE HYCLATE 100 MG TABLET PO ×2 (09:26→20:56)
[2023-01-08] MEDS: EMPAGLIFLOZIN 25 MG TABLET PO (09:26)
[2023-01-08] MEDS: PANTOPRAZOLE 40 MG TABLET PO (09:26)
[2023-01-08] MEDS: DULoxetine HCL 60 MG CAPSULE.DR PO (09:26)
[2023-01-08] MEDS: levETIRAcetam 500 MG TABLET 1000 MG PO ×2 (09:26→20:57)
[2023-01-08] MEDS: ASPIRIN 81 MG ENTERIC TABLET PO (09:26)
[2023-01-08] MEDS: MAGNESIUM OXIDE 400 MG TABLET PO (09:26)
[2023-01-08] MEDS: lisinopriL 2.5 MG TABLET PO (09:27)
[2023-01-08] MEDS: SILVERGEL (ELTA) 45 ML 1 APPLIC TOPICAL (09:33)
[2023-01-08] MEDS: THERAPEUTIC MULTIVITAMINS/MINERALS TAB (*BKC) 1 TABLET PO (09:33)
[2023-01-08] MEDS: PREGABALIN (*CRX) 75 MG CAPSULE 150 MG PO ×2 (09:37→18:21)
[2023-01-08] MEDS: INSULIN ASPART (*BKC) 100 UNITS/ML SUB-Q ×3 (09:37→18:20)
[2023-01-08] MEDS: LEVOTHYROXINE SODIUM 112 MCG TABLET PO (09:38)
[2023-01-08] MEDS: ASCORBIC ACID 500 MG TABLET PO ×2 (09:38→18:21)
[2023-01-08] MEDS: amLODIPine BESYLATE 2.5 MG TABLET PO (09:48)
--- NOTE | 2023-01-08 10:02 | PCSTNOTE ---
Please refer to the Bedside Swallow Evaluation in the EMR. Please note, silent aspiration cannot be ruled out at bedside.
--- NOTE | 2023-01-08 10:43 | PM.IMPN ---
Progress Note: A&P Assessment and Plan (1) Dysphagia: Qualifiers: Dysphagia type: unspecified Qualified Code(s): R13.10 - Dysphagia, unspecified Code(s): R13.10 - Dysphagia, unspecified Status: Acute Assessment and Plan: The patient had been discharged on a soft diet level 6 which will continue. Is very possible the patient may not be receiving this modified diet at the [facility] resulting in him having a sensation of dysphagia. CXR here showing CMG and mild pulmonary edema but no infiltrates. Speech therapy recommending MBS which has been ordered. (2) Seizure disorder: Code(s): G40.909 - Epilepsy, unspecified, not intractable, without status epilepticus Status: Acute Assessment and Plan: The patient may be having partial or partial complex seizures versus pseudoseizures. He received additional 1 g of Keppra IV in the ER. Continue patient's home Keppra. Neurology has been consulted. Patient has been placed on seizure precautions. Ativan available if the patient has any persistent seizures lasting greater than 2 minutes or any persistent generalized seizures. (3) Idayu-vh-[id number] kidney injury: Code(s): N17.9 - Acute kidney failure, unspecified; N18.9 - Chronic kidney disease, unspecified Status: Acute Assessment and Plan: The patient's mucous membranes do appear dry. The patient does have ischemic cardiomyopathy with combined systolic and diastolic dysfunction. He does have some pulmonary edema on x-ray but this is unchanged from prior. His BMP is similar to prior. He was given some IV fluids. Cr normal now so IV fluids stopped. 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 Continue localized wound care. (5) Chronic systolic (congestive) heart failure: Code(s): I50.22 - Chronic systolic (congestive) heart failure Status: Acute Assessment and Plan: Patient has pulmonary edema on x-ray but does not appear to be overtly fluid overloaded. Continue the patient's home cardiac medications. Will monitor fluid status. (6) Type 2 diabetes mellitus with hyperglycemia: Qualifiers: Diabetes mellitus termite treater helper insulin use: with termite treater helper use Qualified Code(s): E11.65 - Type 2 diabetes mellitus with hyperglycemia; Z79.4 - long term care pharmacist (current) use of insulin Code(s): E11.65 - Type 2 diabetes mellitus with hyperglycemia Status: Acute Assessment and Plan: A1c 7.9 in November. Patient's home Lantus resumed and lower dose of 40 units. Will continue mealtime bolus insulin and moderate dose sliding scale insulin with Accu-Cheks. Continue hypoglycemia protocol. Subjective Date/time seen: 01/08/23 10:43 Interval history: 62yo male with CKD, HTN, DM and CHF here for seizure. Patient states he has little memory of events that occurred the prompted this readmission. He denies any nausea or vomiting. No chest pain or shortness of breath. He does have a cough productive of brown sputum at times. No hemoptysis. He has a burn to taste in his mouth. He believes lot of his symptoms began after being extubated from the prior hospitalization. Speech therapy was at bedside at the time of my evaluation and they recommended modified barium swallow because patient was having difficulty with breakfast. Exam Narrative: AF 123/60 71 14 97% ra Gen - NARD Chest - few basilar rhonchi o/w clear. nml RR CV - RRR S1/S2. Tele showing PVCs Abd - Soft, NT/ND, Positive BS Ext - No pedal edema. Left ankle dressing clean and dry Neuro - Alert and oriented x4. Psych - Nml mood but odd affect Skin - Warm and dry Objective Data Vital Signs Vital Signs: Vital Signs - 24 hr 01/07/23 18:57 01/07/23 18:55 01/07/23 18:59
--- NOTE | 2023-01-08 11:28 | WPDNEURCNPN ---
Assessment and Plan Assessment and plan (1) Type 2 diabetes mellitus with hyperglycemia: Qualifiers: Diabetes mellitus public administration teacher insulin use: with penitentiary use Qualified Code(s): E11.65 - Type 2 diabetes mellitus with hyperglycemia; Z79.4 - halfway (current) use of insulin Code(s): E11.65 - Type 2 diabetes mellitus with hyperglycemia Status: Acute (2) Seizure disorder: Code(s): G40.909 - Epilepsy, unspecified, not intractable, without status epilepticus Status: Acute (3) Dysphagia: Qualifiers: Dysphagia type: unspecified Qualified Code(s): R13.10 - Dysphagia, unspecified Code(s): R13.10 - Dysphagia, unspecified Status: Acute (4) History of CVA (cerebrovascular accident): Code(s): Z86.73 - Personal history of transient ischemic attack (TIA), and cerebral infarction without residual deficits Status: Chronic Plan One is status post right hemispheric stroke in the distribution of the middle cerebral artery 2 multiple underlying medical conditions. predisposing to the complication the care but definitely will benefit from the speech and swallowing evaluation before continuing these medications p.o. patient has had the CT scan of the head done this time which is unchanged and so as the MRI 1 can consider the possibility of seizure which is likely because of underlying stroke but that will need another medication to be added he is taking Lyrica 150 b.i.d. with primidone 50 t.i.d. we need to 1st evaluate the swallowing mechanism Consult date: 01/08/23 HPI: Bayron Ann is a 62 year old maleAdmitted to the hospital through the emergency room the complaints of choking episode with altered mental status in addition to the history of 1. Left heel ulcer 2. Seizure 3. Cerebrovascular accident with residual left hemiparesis patient as per the information has been choking on his own secretions and gasping for air though his initial oxygen saturation were normal but reportedly was going in and out of the consciousness as per the report from the EMS and he was brought to the ER for the same incidence he was eating sloppy Pramod and felt like he was choking. His medications included aspirin 81 mg daily atorvastatin 40 mg at night insulin 3units subcu a.c. levothyroxine 137 micro grain daily pantoprazole 40 mg daily ropinirole 3 mg at night tamsulosin 0.8 mg at night duloxetine 60 mg daily baclofen 5 mg 3 times a day to lucidity 0.75 mg subcu weekly GERD and 25 mg daily insulin 55units subcu q.h.s. amlodipine 2.5 mg daily pregabalin 75 mg each 150 twice a day and primidone 50 mg 3 times a day. He has undergone coronary artery bypass grafting in February of 2019 he has undergone cervical spine fusion surgery does not drink and does not smoke. Initial vital signs were normal with blood pressure 153/75 pulse ox 95 on room air CBC normal basic metabolic panel with BUN of 44 creatinine 1.40 and blood sugar of 216 chest x-ray revealed cardiomegaly with mild pulmonary edema and left pleural effusion CT of the head was compatible with old right middle cerebral artery distribution without acute intracranial abnormality . And the brain MRI has documented old infarct in the expected distribution of the right middle cerebral artery Review of Systems Review of Systems: All systems reviewed & are unremarkable except as noted in HPI and below [facility] Past Medical History Medical History (Updated 01/08/23 @ 07:07 by Esperanza Hutton, DO) Benign prostatic hyperplasia Chronic anemia CKD (chronic kidney disease) stage 3, GFR 30-59 ml/min Colon cancer screening Combined systolic and diastolic congestive heart failure Coronary artery disease Status post three-vessel bypass and left ventricular aneurysm repair in February 2019 at [facility]. Current use of penitentiary anticoagulation Depression Glaucoma Gout History of cerebrovascular accident (~01/2019) Post CABG right parietal infarction with clin
[2023-01-08 12:13] LABS: Glucose Point of Care 152 mg/dl (65-105)
--- NOTE | 2023-01-08 15:08 | PCSTNOTE ---
Please refer to the Bedside Swallow Evaluation in the EMR. Please note, silent aspiration cannot be ruled out at bedside.
[2023-01-08 17:33] LABS: Glucose Point of Care 141 mg/dl (65-105)
[2023-01-08 20:47] LABS: Glucose Point of Care 141 mg/dl (65-105)
[2023-01-08] MEDS: ATORVASTATIN 40 MG TABLET PO (20:56)
[2023-01-08] MEDS: TAMSULOSIN HCL 0.4 MG CAPSULE PO (20:56)
[2023-01-08] MEDS: LORATADINE 10 MG TABLET PO (20:57)
[2023-01-08] MEDS: LATANOPROST 0.005% OP SOLN 2.5 ML BTL 1 DROP EACH EYE (20:57)
[2023-01-08] MEDS: rOPINIRole HCL 1 MG TABLET PO (20:57)
[2023-01-08] MEDS: INSULIN GLARGINE (*BKC) 100 UNITS/ML 40 UNITS SUB-Q (21:01)
[2023-01-09] VITALS (7 sets, daily range): BP systolic 120–126; BP diastolic 63–65; PULSE 64–77; RESP 18; TEMP 36.4–36.7; O2SAT 93–97
[2023-01-09 05:31] LABS: Hematocrit 41.6 % (42.0-52.0); Hemoglobin 13.3 g/dL (14.0-18.0); Mean Corpuscular Hemoglobin 29.3 pg (26-34); Mean Corpuscular Volume 91.6 fl (80-100); Mean Platelet Volume 11.3 fl (7.4-10.4); Platelet Count Result 176 k/mm3 (150-375); Red Blood Count 4.54 M/mm3 (4.6-6.20); Red Cell Distribution Width 15.5 % (11.5-14.5); White Blood Count 10.1 K/mm3 (4.5-10.0)
[2023-01-09] MEDS: LEVOTHYROXINE SODIUM 112 MCG TABLET PO (05:36)
[2023-01-09] MEDS: LEVOTHYROXINE SODIUM 25 MCG TABLET PO (05:36)
[2023-01-09 05:51] LABS: Albumin Level 3.7 g/dL (3.5-5.1); Anion Gap 5 mmol/L (8-16); Blood Urea Nitrogen 27 mg/dL (9-20); Calcium 8.6 mg/dL (8.4-10.2); Carbon Dioxide 24 mmol/L (22-30); Chloride 108 mmol/L (98-107); Estimated CRCL calculation 89 ml/min; Estimated Glomerular Filt Rate > 60; Glucose 126 mg/dL (65-110); Magnesium 2.1 mg/dL (1.6-2.3); Phosphorus 3.4 mg/dL (2.5-4.5); Potassium 3.9 mmol/L (3.4-5.0); Sodium 137 mmol/L (137-145)
[2023-01-09 08:29] LABS: Glucose Point of Care 150 mg/dl (65-105)
[2023-01-09] MEDS: MAGNESIUM OXIDE 400 MG TABLET PO (09:27)
[2023-01-09] MEDS: POTASSIUM CHLORIDE 10 MEQ TABLET.ER PO (09:27)
[2023-01-09] MEDS: EMPAGLIFLOZIN 25 MG TABLET PO (09:27)
[2023-01-09] MEDS: FERROUS GLUCONATE 324 MG TABLET PO (09:27)
[2023-01-09] MEDS: PREGABALIN (*CRX) 75 MG CAPSULE 150 MG PO ×2 (09:27→16:39)
[2023-01-09] MEDS: DOXYCYCLINE HYCLATE 100 MG TABLET PO (09:27)
[2023-01-09] MEDS: PRIMIDONE 50 MG TABLET PO ×3 (09:27→16:39)
[2023-01-09] MEDS: DULoxetine HCL 60 MG CAPSULE.DR PO (09:28)
[2023-01-09] MEDS: ASPIRIN 81 MG ENTERIC TABLET PO (09:28)
[2023-01-09] MEDS: amLODIPine BESYLATE 2.5 MG TABLET PO (09:28)
[2023-01-09] MEDS: ASCORBIC ACID 500 MG TABLET PO ×2 (09:28→16:40)
[2023-01-09] MEDS: PANTOPRAZOLE 40 MG TABLET PO (09:28)
[2023-01-09] MEDS: lisinopriL 2.5 MG TABLET PO (09:28)
[2023-01-09] MEDS: levETIRAcetam 500 MG TABLET 1000 MG PO (09:28)
[2023-01-09] MEDS: THERAPEUTIC MULTIVITAMINS/MINERALS TAB (*BKC) 1 TABLET PO (09:28)
[2023-01-09] MEDS: BACLOFEN 5 MG TABLET PO ×3 (09:28→16:39)
[2023-01-09] MEDS: BRIMONIDINE TARTRATE 0.2% OP SOLN 5 ML BTL 1 DROP EACH EYE ×2 (09:29→16:39)
[2023-01-09] MEDS: SILVERGEL (ELTA) 45 ML 1 APPLIC TOPICAL (09:37)
--- NOTE | 2023-01-09 11:08 | PCNWS ---
Weekly nutritional screen. Patient is tolerating current diet with adequate intake. MBS -3/6 recommending regular consistencies. No weight loss reported. No further nutritional needs at this time.
--- NOTE | 2023-01-09 11:50 | WPDNEUROPN ---
Subjective Date/time seen: 01/09/23 11:50 Interval history: on follow-up today is more awake alert and following instructions fairly well, had the modified esophagram which documented advocate functioning of the oral pharyngeal and cervical and esophageal stage, and as mentioned before MRI of the brain had documented old infarct in the distribution of the right middle cerebral artery and he is already taking Keppra 1000 mg q.12 hours treatment will be continued as such Objective Data Vital Signs Vital Signs: Vital Signs - 24 hr 01/08/23 14:46 01/08/23 12:00 01/08/23 16:00 Temperature 36.2 C L Pulse Rate 64 72 66 Respiratory Rate 17 Blood Pressure 119/71 Pulse Oximetry 95 Oxygen Delivery 01/08/23 21:39 01/08/23 21:15 01/09/23 00:00 Temperature 36.8 C Pulse Rate 74 73 69 Respiratory Rate 18 Blood Pressure 125/70 Pulse Oximetry 96 Oxygen Delivery 01/09/23 04:00 01/09/23 05:29 01/09/23 09:20 Temperature 36.7 C Pulse Rate 67 64 Respiratory Rate 18 Blood Pressure 120/65 Pulse Oximetry 93 Oxygen Delivery Room Air Intake/Output Intake/Output: Intake & Output 01/06/23 01/07/23 01/08/23 01/09/23 23:59 23:59 23:59 23:59 Intake Total 100 840 580 Output Total 2500 600 Balance 100 -1660 -20 Meds/Results Medications: Active Medications Generic Name Dose Route Start Last Admin Trade Name Freq PRN Reason Stop Dose Admin Albuterol 2.5 mg 01/08/23 06:57 Albuterol Sulfate Neb 2.5 Mg/3 Ml Inh INHALATION Q6H PRN Shortness Of Breath Amlodipine Besylate 2.5 mg 01/08/23 09:00 01/09/23 09:28 Amlodipine Besylate 2.5 Mg Tablet PO 2.5 mg DAILY JERRY Administration Ascorbic Acid 500 mg 01/08/23 09:00 01/09/23 09:28 Ascorbic Acid 500 Mg Tablet PO 500 mg BID JERRY Administration Aspirin 81 mg 01/08/23 09:00 01/09/23 09:28 Aspirin 81 Mg Enteric Tablet PO 81 mg DAILY JERRY Administration Atorvastatin Calcium 40 mg 01/08/23 21:00 01/08/23 20:56 Atorvastatin 40 Mg Tablet PO 40 mg HS JERRY Administration Baclofen 5 mg 01/08/23 09:00 01/09/23 09:28 Baclofen 5 Mg Tablet PO 5 mg TID ON LICENSE OF [facility] Administration Bisacodyl 10 mg 01/08/23 06:27 Bisacodyl 10 Mg Suppository RECTAL DAILY PRN Constipation Brimonidine Tartrate 1 drop 01/08/23 09:00 01/09/23 09:29 Brimonidine Tartrate 0.2% Op Soln 5 Ml Btl EACH EYE 1 drop BID JERRY Administration Dextrose 12.5 gm 01/08/23 06:30 Dextrose 50% 25 Gm/50 Ml Syringe IV PUSH PRN PRN Hypoglycemia Protocol Diclofenac Sodium 1 applic 01/08/23 04:37 Diclofenac Sodium 1% 100 Gm Gel (*Bkc) TOPICAL Q6H PRN mild pain to hips/legs Doxycycline Hyclate 100 mg 01/08/23 09:00 01/09/23 09:27 Doxycycline Hyclate 100 Mg Tablet PO 100 mg Q12HR JERRY Administration Duloxetine HCl 60 mg 01/08/23 09:00 01/09/23 09:28 Duloxetine Hcl 60 Mg Capsule. PO 60 mg DAILY JERRY Administration Empagliflozin 25 mg 01/08/23 09:00 01/09/23 09:27 Empagliflozin 25 Mg Tablet PO 25 mg DAILY JERRY Administration Ferrous Gluconate 324 mg 01/08/23 09:00 01/09/23 09:27 Ferrous Gluconate 324 Mg Tablet PO 324 mg DAILY JERRY Administration Glucagon 1 mg 01/08/23 06:30 Glucagon For Inj 1 Mg Vial IM PRN PRN Hypoglycemia Protocol Glucose 15 gm 01/08/23 06:30 Glucose Oral Gel 15 Gm Of Glucse In 37.5 Gm Tube PO PRN PRN Hypoglycemia Protocol Dextrose 1,000 mls @ 100 mls/hr 01/08/23 06:30 Dextrose 5% 1,000 Ml IVPB PRN PRN Hypoglycemia Protocol Insulin Aspart 3 - 6 units 01/08/23 08:00 01/09/23 09:19 Insulin Aspart (*Bkc) 100 Units/Ml SUB-Q Not Given TIDWM ON LICENSE OF [facility] Protocol Insulin Aspart 3 units 01/08/23 08:00 01/09/23 09:00 Insulin Aspart (*Bkc) 100 Units/Ml SUB-Q Not Given TIDWM ON LICENSE OF [facility] Insulin Glargine 40 units 01/08/23 21:00 01/08/23 21:01 I
[2023-01-09 12:01] LABS: Glucose Point of Care 237 mg/dl (65-105)
[2023-01-09] MEDS: INSULIN ASPART (*BKC) 100 UNITS/ML SUB-Q ×3 (12:02→17:22)
--- NOTE | 2023-01-09 15:40 | PM.DS ---
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: Code(s): L89.624 - Pressure ulcer of left heel, stage 4 Status: Acute (5) Chronic systolic (congestive) heart failure: Code(s): I50.22 - Chronic systolic (congestive) heart failure Status: Acute (6) Type 2 diabetes mellitus with hyperglycemia: Qualifiers: Diabetes mellitus medical terminologist insulin use: with senior care use Qualified Code(s): E11.65 - Type 2 diabetes mellitus with hyperglycemia; Z79.4 - intermission coordinator (current) use of insulin Code(s): E11.65 - Type 2 diabetes mellitus with hyperglycemia Status: Acute DS: Summary Hospital Course Reason for hospitalization: 62yo male with CKD, HTN, DM and CHF here for possible seizure. Please see H&P for details. Hospital Course: The patient has a seizure disorder. Patient was having seizure-like activity and was sent to the ED for this reason. The patient may be having partial or partial complex seizures versus pseudoseizures.? He received additional 1 g of Keppra IV in the ER.? We continued patient's home Keppra.? Neurology was consulted.? Patient was placed on seizure precautions.?CXR showing CMG and mild pulmonary edema. Patient did not appear to be overtly fluid overloaded. We continued the patient's home cardiac medications.?CT brain showing no acute changes. The patient was discharged on a soft diet level 6 which was continued.? It is very possible the patient may not be receiving this modified diet at the long-term resulting in him having a sensation of dysphagia. Speech therapy recommending MBS which was ordered. They recommended regular diet. Patient had [id number] kidney injury. The patient's mucous membranes were dry.? He was given some IV fluids. Cr normal now so IV fluids stopped. The left heel wound appeared improved from prior. Patient overall did well and was able be discharged on 01/09/2023. Status at Discharge Cognitive/behavioral status at discharge: Stable Time Spent with Patient Time attestation: Total time spent providing and/or coordinating discharge services: 35 minutes Time spent: Greater than 30 minutes Exam Narrative: AF 126/63 73 18 97% ra Gen - NARD Chest - CTA bilaterally. CV - RRR S1/S2. Tele showing PVCs Abd - Soft, NT/ND, Positive BS Ext - No pedal edema. Left ankle dressing clean and dry Neuro - Alert and appropriate Psych - Nml mood and affect Skin - Warm and dry DS: Data Data Completed and Pending Labs on day of discharge: Labs from last 24 hours 01/09/23 01/09/23 01/09/23 11:58 08:26 05:15 WBC RBC Hgb Hct MCV MCH MCHC RDW Plt Count MPV Sodium 137 Potassium 3.9 Chloride 108 H Carbon Dioxide 24 Anion Gap 5 L BUN 27 H Creatinine 1.00 Estim Creat Clear Calc 89 Estimated GFR > 60 Glucose 126 H POC Capillary Glucose 237 H 150 H Calcium 8.6 Phosphorus 3.4 Magnesium 2.1 Albumin 3.7 01/09/23 01/08/23 01/08/23 05:15 20:39 17:18 WBC 10.1 H RBC 4.54 L Hgb 13.3 L Hct 41.6 L MCV 91.6 MCH 29.3 MCHC 32.0 RDW 15.5 H Plt Count 176 MPV 11.3 H Sodium Potassium Chloride Carbon Dioxide Anion Gap BUN Creatinine Estim Creat Clear Calc Estimated GFR Glucose POC Capillary
[2023-01-09 17:04] LABS: Glucose Point of Care 186 mg/dl (65-105)
== END 2023-01-09 20:40 | DRG 100 ==
LOC: ANHED 23:54 → ANH2MED 01-08 00:11
PROVIDERS: Admitting Provider Internal Medicine; Emergency Provider General Practice; PCP Family Medicine; Visit Provider Internal Medicine
DX: G40.209 Localization-related (focal) (partial) symptomatic epilepsy and epileptic syndromes with complex partial seizures, not intractable, without status epilepticus (principal); L89.624 Pressure ulcer of left heel, stage 4; N17.9 Acute kidney failure, unspecified; I13.0 Hypertensive heart and chronic kidney disease with heart failure and stage 1 through stage 4 chronic kidney disease, or unspecified chronic kidney disease; I50.42 Chronic combined systolic (congestive) and diastolic (congestive) heart failure; R13.10 Dysphagia, unspecified; E11.65 Type 2 diabetes mellitus with hyperglycemia; E11.22 Type 2 diabetes mellitus with diabetic chronic kidney disease; N18.30 Chronic kidney disease, stage 3 unspecified; I25.5 Ischemic cardiomyopathy; I25.10 Atherosclerotic heart disease of native coronary artery without angina pectoris; Z95.1 Presence of aortocoronary bypass graft; I25.2 Old myocardial infarction; Z79.4 Long term (current) use of insulin; Z79.01 Long term (current) use of anticoagulants; Z79.899 Other long term (current) drug therapy
CPT/HCPCS: 36415; 70450; 71045; 73630; 80053; 80069; 81001; 82550; 82948; 83605; 83735; 83880; 84484; 85025; 85027; 85610; 85730; 92610; 92611; 93005; 96374; 99285; A9270; G0378; J1815; J1953; J7030

== ENCOUNTER 2023-01-15 12:34 | Inpatient (IN) | payer MEDICARE, MEDICAID, SELFPAY ==
[2023-01-15] VITALS (13 sets, daily range): BP systolic 104–145; BP diastolic 49–87; PULSE 81–109; RESP 18–20; TEMP 36.1–37.1; O2SAT 92–97; BMI 31.0
--- NOTE | ~2023-01-15 | CT_ITS ---
Noncontrast CT scan of the cervical spine Technique: Multiple contiguous axial [address] images of the cervical spine were obtained and rec onstructed in 2D sagittal and coronal planes on the acquisition scanner. Dose reduction technique was used on this scan by utilizing automated exposure control, adjustment of the mA and/or kV according to patient size. Clinical History: Pain Findings: No fracture identified. Probable minimal grade 1 anterolisthesis of C3 over C4. Interverteb ral disc spaces are relatively well-preserved. Scattered facet arthropathy noted in the cervical spin e. Multilevel minimal disc osteophyte complexes are present. No prevertebral soft tissue swelling. Impression: No fracture. Minimal grade 1 anterolisthesis of C3 over C4. Mild degenerative spondylosis, as above. Reviewed, dictated and finalized at [facility]. Impression: No fracture. Minimal grade 1 anterolisthesis of C3 over C4. Mild degenerative spondylosis, as above.
--- NOTE | ~2023-01-15 | CT_ITS ---
Non-contrast Head CT History: Seizure COMPARISON: 01/07/2023 Technique: Axial non-contrast imaging of the brain was performed. Dose reduction technique was used on this scan by utilizing automated exposure control and iterative reconstruction technique. The dose -length product (DLP) was 681.00 mGy-cm. Findings: There is no evidence of intracranial hemorrhage, mass lesion, or acute infarct. Stable chr onic encephalomalacia in the right temporal and parietal lobes. The ventricles and subarachnoid spac es are normal in size. The calvarium appears normal. The visualized paranasal sinuses and mastoid a ir cells are clear. Impression: No acute abnormality seen. Stable chronic right temporoparietal encephalomalacia. Reviewed, dictated and finalized at location . Impression: No acute abnormality seen. Stable chronic right temporoparietal encephalomalacia.
--- NOTE | ~2023-01-15 | XR_ITS ---
Right wrist Technique: PA, oblique, lateral, and ulnar deviation views were obtained. Clinical History: Pain Findings: No acute fracture or dislocation is seen. There is mild to moderate degenerative change at the STT articulations. Soft tissues are unremarkable. Impression: Mild to moderate degenerative change at the STT articulations. No fracture or dislocation. Reviewed, dictated and finalized at location . Impression: Mild to moderate degenerative change at the STT articulations. No fracture or dislocation.
--- NOTE | 2023-01-15 13:49 | ED.GENADULT ---
HPI - General Adult General Chief complaint: Seizure Stated complaint: seizure Time Seen by Provider: 01/15/23 12:49 History of Present Illness HPI narrative: 62-year-old male presented the emergency department from [facility] for evaluation of multiple seizures. Patient has a prior history of CVA in 2019. Patient had his first seizures in December of this year. Patient has been taking Keppra. Nursing staff reported that the patient did have up to 7 seizures prior to arrival. Patient was treated with Ativan. Patient does take Keppra for his seizures and states he does not believe he has missed any medications. Patient was also complaining of some right wrist pain. Patient denies any other new pain or complaint Related Data Home Medications Medication Instructions Recorded Confirmed aspirin 81 mg tablet,delayed 81 mg PO DAILY 03/30/21 01/15/23 release atorvastatin 40 mg tablet 40 mg PO HS 03/30/21 01/15/23 biotin 5,000 mcg disintegrating 5,000 mcg PO DAILY 03/30/21 01/15/23 tablet bisacodyl 10 mg rectal suppository 10 mg RECTAL DAILY PRN Constipation 03/30/21 01/15/23 insulin lispro 100 unit/mL See Rx Instructions .Route .COMPLEX 03/30/21 01/15/23 subcutaneous pen levothyroxine 137 mcg tablet 137 mcg PO QAM 03/30/21 01/15/23 ropinirole 1 mg tablet 1 mg PO HS 03/30/21 01/15/23 tamsulosin 0.4 mg capsule 0.4 mg PO HS 03/30/21 01/15/23 ascorbic acid (vitamin C) 500 mg 500 mg PO BID 01/18/22 01/15/23 capsule duloxetine 60 mg capsule,delayed 60 mg PO DAILY 01/18/22 01/15/23 release magnesium hydroxide 400 mg/5 mL 30 ml PO HS PRN Constipation 01/18/22 01/15/23 oral suspension (Milk of Magnesia) baclofen 5 mg tablet 5 mg PO TID 06/09/22 01/15/23 dulaglutide 0.75 mg/0.5 mL 0.75 mg subcut WEEKLY 06/09/22 01/15/23 subcutaneous pen injector (Trulicity) empagliflozin 25 mg tablet 25 mg PO DAILY 06/09/22 01/15/23 (Jardiance) ferrous gluconate 324 mg (38 mg 324 mg PO DAILY 06/09/22 01/15/23 iron) tablet ipratropium 0.5 mg-albuterol 3 mg 3 ml inhalation Q6H PRN Shortness 06/09/22 01/15/23 (2.5 mg base)/3 mL nebulization Of Breath soln latanoprost 0.005 % eye drops 1 drp EACH EYE HS 06/09/22 01/15/23 multivitamin with minerals (Daily 1 tablet PO DAILY ##0 06/09/22 01/15/23 Multivitamin-Minerals tablet) nystatin 100,000 unit/gram topical 1 applic topical BID PRN Fungal 06/09/22 01/15/23 powder (Nyamyc) rash potassium chloride 10 mEq 10 meq PO DAILY 06/09/22 01/15/23 capsule,extended release sodium phosphates 19 gram-7 118 ml RECTAL DAILY PRN 06/09/22 01/15/23 gram/118 mL enema (Fleet Enema) Constipation amlodipine 2.5 mg tablet 2.5 mg PO DAILY 12/29/22 01/15/23 brimonidine 0.2 % eye drops 1 drp EACH EYE BID 12/29/22 01/15/23 diclofenac sodium 1 % topical gel 1 ea topical Q6H PRN mild pain to 12/29/22 01/15/23 hips/legs levocetirizine 5 mg tablet 5 mg PO HS 12/29/22 01/15/23 primidone 50 mg tablet (Mysoline) 50 mg PO TID 12/29/22 01/15/23 silver chloride 1 ea topical DAILY 12/29/22 01/15/23 omeprazole 20 mg capsule,delayed 20 mg PO DAILY GERD 01/08/23 01/15/23 release insulin lispro 100 unit/mL 3 unit subcut AC 01/15/23 01/15/23 subcutaneous pen levetiracetam 500 mg tablet 500 mg PO Q12HR 01/15/23 01/15/23 (Keppra) Allergies Allergy/AdvReac Type Severity Reaction Status Date / Time No Known Allergies Allergy Unknown Verified 01/07/23 19:05 Review of Systems Review of Systems: All systems reviewed & are unremarkable except as noted in HPI and below PMFSH Past Medical History Medical History (Updated 01/15/23 @ 15:21 by Timbo Prieto MD) Benign prostatic hyperplasia Chronic anemia CKD (chronic kidney disease) stage 3, GFR 30-59 ml/min Colon cancer screening Combined systolic and diastolic congestive heart failure Coronary artery disease Status post three-vessel bypass and left ventricular aneurysm repair in February 2019 at [facility]. Current use of
[2023-01-15 13:57] LABS: Basophils Absolute Auto 0.1 K/mm3 (0.0-0.1); Basophils Percent Auto 0.7 % (0.2-1.2); Eosinophils Absolute Auto 0.2 K/mm3 (0-0.3); Eosinophils Percent Auto 1.5 % (0-4.4); Hematocrit 42.7 % (42.0-52.0); Hemoglobin 14.1 g/dL (14.0-18.0); Lymphocytes Percent Auto 6.1 % (18.3-44.2); Mean Corpuscular Hemoglobin 29.7 pg (26-34); Mean Corpuscular Volume 89.9 fl (80-100); Mean Platelet Volume 12.1 fl (7.4-10.4); Monocytes Absolute Auto 1.2 K/mm3 (0.1-0.6); Monocytes Percent Auto 8.4 % (2.6-8.5); Neutrophils Percent Auto 81.3 % (45.5-73.1); Platelet Count Result 174 k/mm3 (150-375); Red Blood Count 4.75 M/mm3 (4.6-6.20); Red Cell Distribution Width 15.5 % (11.5-14.5); White Blood Count 14.8 K/mm3 (4.5-10.0)
[2023-01-15 14:09] LABS: INR 1.1; Partial Thromboplastin Time 32.4 SECONDS (22.3-36.8); Prothrombin Time 13.7 Seconds (11.1-14.7)
[2023-01-15 14:13] LABS: Lactic Acid Reflex 1.4 mmol/L (0.7-2.0)
[2023-01-15 14:18] LABS: Alanine Aminotransferase 23 U/L (6-50); Alkaline Phosphatase 108 U/L (38-126); Anion Gap 6 mmol/L (8-16); Aspartate Amino Transferase 20 U/L (17-59); Bilirubin,Total 0.5 mg/dL (0.2-1.3); Blood Urea Nitrogen 26 mg/dL (9-20); Calcium 8.6 mg/dL (8.4-10.2); Carbon Dioxide 24 mmol/L (22-30); Chloride 107 mmol/L (98-107); Estimated CRCL calculation 89 ml/min; Estimated Glomerular Filt Rate > 60; Glucose 176 mg/dL (65-110); Potassium 4.8 mmol/L (3.4-5.0); Sodium 137 mmol/L (137-145)
[2023-01-15 14:36] LABS: Procalcitonin 0.1 ng/mL
[2023-01-15] MEDS: SODIUM CHLORIDE 0.9% IV 1,000 ML 999 ML IV CONT (14:39)
[2023-01-15 14:59] LABS: Appearance Urine Clear (Clear); Bacteria Urine None Seen /hpf; Bilirubin Urine Negative (Negative); Blood Urine Negative (Negative); Color Urine Yellow (Yellow); Glucose Urine UA 3+ mg/dL (Negative); Ketones Urine Negative (Negative); Leukocyte Esterase Ur Negative LEU/UL (Negative); Nitrate Urine Negative (Negative); Non Pathogenic Casts 0-2; Protein Urine 2+ mg/dL (Negative); RBC Urine 0-2 /hpf (0-2); Specific Grav Ur 1.017 (1.001-1.035); Squamous Epithelial Cell Urine None seen /hpf (Few); Urobilinogen Urine 0.2 mg/dL (<2.0); WBC Urine 0-5 /hpf
[2023-01-15] MEDS: levETIRAcetam 1000MG/NACL100ML 1,000 MG/100 ML BAG 400 MG IVPB ×3 (15:16)
[2023-01-15 15:34] LABS: Add Urine Microscopic? YES
[2023-01-15 15:39] LABS: Influenza A QL RT-PCR Negative (Negative); Influenza B QL RT-PCR Negative (Negative); RSV RNA, RT-PCR Negative (Negative); SARS-CoV-2 RNA PCR Negative
--- NOTE | 2023-01-15 18:55 | ADMGEN ---
This patient, Bayron Ann, was admitted to IMU Room 206-02. Patient/family oriented to hospital policies and general routines including ID bracelet, bed and alarms, visiting hours, pain management, procedures, bathroom and other care routines, personal items, smoking policy, room service/diet, and visiting hours. Information on how to activate the Rapid Response Team has been discussed. Patient/Family are encouraged to report perceived risks to care and to ask questions if they do not understand what they are told or what they should do.
--- NOTE | 2023-01-15 19:32 | PM.IMHP ---
H&P: HPI History of Present Illness Date/Time: 01/15/23 19:32 Chief Complaint: Seizure activity Narrative: This is a 62-year-old male patient who has a history of seizures NT came to the emergency room from [facility] to be evaluated for multiple seizures. The patient was just discharged from this facility on 01/09/2023 after having multiple seizures. The nursing staff stated that the patient had 7 seizures prior to arrival to the emergency room today. The patient was treated with Ativan. The patient does take Keppra for seizures and does not miss any medication.He has a wbc of 14.8. Glucose 175. Negative for influenza A/B and COVID. The patient was given normal saline and Keppra in the emergency room. Cervical spine CT read as no fracture minimal grade 1 anterior lithiasis of C3 over C4 mild degenerative spondylosis. Wrist x-ray was read asMild to moderate degenerative change at the STT articulations. No fracture or dislocation. Head CT was read as no acute abnormality seen. Stable chronic right temporoparietal encephalomalacia. The patient did have a modified barium swallow on 01/08/2023 which stated the patient was able to have a regular diet. Patient is being admitted to observation status on 01/15/2023. Review of Systems Review of Systems: All systems reviewed & are unremarkable except as noted in HPI and below Constitutional: Constitutional: Reports as per HPI and Reports no additional constitutional complaints Eyes: Eyes: Reports as per HPI and Reports no additional eye complaints ENT: Reports system reviewed and no additional complaints, except as documented and Reports Normal hearing present Cardiovascular: Cardiovascular: Reports no additional cardiovascular complaints Respiratory: Respiratory: Reports no additional respiratory complaints and Reports no additional respiratory complaints Gastrointestinal: Gastrointestinal: Reports as per HPI and Reports no additional gastrointestinal complaints Musculoskeletal: Musculoskeletal: Reports no additional musculoskeletal complaints Integumentary/Breasts: Skin/Breast: Reports system reviewed and no additional complaints, except as docu and Reports as per HPI Neurologic: Reports system reviewed and no additional complaints, except as documented, Reports as per HPI and Reports Normal hearing present Psychiatric: Psychiatric: Reports no additional psychiatric complaints and Reports as per HPI Endocrine: Endocrine: Reports no additional endocrine complaints Hematologic/Lymphatic: Hematologic/Lymphatic: Reports no additional hematologic/lymphatic complaints Allergic/Immunologic: Allergic/Immunologic: Reports no additional allergic/immunologic complaints [facility] Past Medical History Medical History Benign prostatic hyperplasia Chronic anemia CKD (chronic kidney disease) stage 3, GFR 30-59 ml/min Colon cancer screening Combined systolic and diastolic congestive heart failure Coronary artery disease Status post three-vessel bypass and left ventricular aneurysm repair in February 2019 at [facility]. Current use of intermediate anticoagulation Depression Glaucoma Gout History of cerebrovascular accident (~01/2019) Post CABG right parietal infarction with clinical left hemiplegia. Hyperlipidemia Hypertension Hypothyroidism Insulin dependent diabetes mellitus Hemoglobin A1c was 7.7% on 04/19/2021. Ischemic cardiomyopathy Most recent calculated EF was 31%. Myocardial infarction (~01/2019) Late presentation [place] found to have severe three-vessel disease, transferred to [facility] for emergent bypass with perioperative ventricular fibrillation arrest. Seizure disorder Surgical History Surgical History H/O cervical spine surgery Fusion History of coronary artery bypass graft (~02/2019) Three-vessel bypass and surgical repair of left v
[2023-01-15] MEDS: BRIMONIDINE TARTRATE 0.2% OP SOLN 5 ML BTL 1 DROP EACH EYE (21:05)
[2023-01-15] MEDS: PRIMIDONE 50 MG TABLET PO (21:06)
[2023-01-15] MEDS: LATANOPROST 0.005% OP SOLN 2.5 ML BTL 1 DROP EACH EYE (21:06)
[2023-01-15] MEDS: ATORVASTATIN 40 MG TABLET PO (21:06)
[2023-01-15] MEDS: LORATADINE 10 MG TABLET PO (21:07)
[2023-01-15] MEDS: levETIRAcetam 500 MG TABLET PO (21:07)
[2023-01-15] MEDS: TAMSULOSIN HCL 0.4 MG CAPSULE PO (21:07)
[2023-01-15] MEDS: rOPINIRole HCL 1 MG TABLET PO (21:07)
[2023-01-15] MEDS: PREGABALIN (*CRX) 75 MG CAPSULE 150 MG PO (21:10)
[2023-01-15] MEDS: INSULIN GLARGINE (*BKC) 100 UNITS/ML 45 UNITS SUB-Q (21:10)
[2023-01-15] MEDS: ASCORBIC ACID 500 MG TABLET PO (21:12)
[2023-01-15] MEDS: BACLOFEN 5 MG TABLET PO (23:23)
[2023-01-16] VITALS (14 sets, daily range): BP systolic 115–139; BP diastolic 57–67; PULSE 71–95; RESP 14–20; TEMP 36.6–37.6; O2SAT 95–100; BMI 31.0
[2023-01-16 03:24] LABS: Basophils Absolute Auto 0.1 K/mm3 (0.0-0.1); Basophils Percent Auto 0.7 % (0.2-1.2); Eosinophils Absolute Auto 0.2 K/mm3 (0-0.3); Hematocrit 40.7 % (42.0-52.0); Hemoglobin 13.2 g/dL (14.0-18.0); Immature Granulocyte Absolute 0.24 K/mm3 (0.00-0.031); Immature Granulocyte Percent A 2.4 % (0-0.5); Lymphocytes Absolute Auto 1.29 K/mm3 (0.9-3.2); Lymphocytes Percent Auto 12.8 % (18.3-44.2); Mean Corpuscular HGB Conc 32.4 g/dl (32-36); Mean Corpuscular Hemoglobin 30.4 pg (26-34); Mean Corpuscular Volume 93.8 fl (80-100); Mean Platelet Volume 11.2 fl (7.4-10.4); Monocytes Absolute Auto 1.1 K/mm3 (0.1-0.6); Monocytes Percent Auto 10.9 % (2.6-8.5); Neutrophils Absolute Auto 7.2 K/mm3 (1.3-6.7); Neutrophils Percent Auto 71.2 % (45.5-73.1); Platelet Count Result 171 k/mm3 (150-375); Red Blood Count 4.34 M/mm3 (4.6-6.20); Red Cell Distribution Width 15.6 % (11.5-14.5); White Blood Count 10.1 K/mm3 (4.5-10.0)
[2023-01-16 03:35] LABS: Alanine Aminotransferase 20 U/L (6-50); Albumin Level 3.8 g/dL (3.5-5.1); Alkaline Phosphatase 79 U/L (38-126); Anion Gap 5 mmol/L (8-16); Aspartate Amino Transferase 18 U/L (17-59); Bilirubin,Total 0.6 mg/dL (0.2-1.3); Blood Urea Nitrogen 23 mg/dL (9-20); Calcium 8.3 mg/dL (8.4-10.2); Carbon Dioxide 24 mmol/L (22-30); Chloride 110 mmol/L (98-107); Estimated CRCL calculation 89 ml/min; Estimated Glomerular Filt Rate > 60; Glucose 130 mg/dL (65-110); Lactic Acid Reflex 1.2 mmol/L (0.7-2.0); Potassium 4.6 mmol/L (3.4-5.0); Sodium 139 mmol/L (137-145)
[2023-01-16 04:27] LABS: Thyroid Stimulating Hormone Reflex 0.132 uIU/mL (0.465-4.68)
[2023-01-16 05:18] LABS: Free T4 Free Thyroxine Reflex 1.38 ng/dL (0.78-2.19)
[2023-01-16] MEDS: LEVOTHYROXINE SODIUM 112 MCG TABLET PO (05:50)
[2023-01-16] MEDS: LEVOTHYROXINE SODIUM 25 MCG TABLET PO (05:50)
[2023-01-16 06:00] LABS: Total Triiodothyronine (T3) 0.97 NG/ML (0.97-1.69)
[2023-01-16 07:51] LABS: Glucose Point of Care 111 mg/dl (65-105)
[2023-01-16] MEDS: BRIMONIDINE TARTRATE 0.2% OP SOLN 5 ML BTL 1 DROP EACH EYE ×2 (09:16→18:51)
[2023-01-16] MEDS: lisinopriL 2.5 MG TABLET PO (09:16)
[2023-01-16] MEDS: PREGABALIN (*CRX) 75 MG CAPSULE 150 MG PO ×2 (09:16→18:51)
[2023-01-16] MEDS: PANTOPRAZOLE 40 MG TABLET PO (09:16)
[2023-01-16] MEDS: THERAPEUTIC MULTIVITAMINS/MINERALS TAB (*BKC) 1 TABLET PO (09:16)
[2023-01-16] MEDS: POTASSIUM CHLORIDE 10 MEQ TABLET.ER PO (09:16)
[2023-01-16] MEDS: DULoxetine HCL 60 MG CAPSULE.DR PO (09:17)
[2023-01-16] MEDS: MAGNESIUM OXIDE 400 MG TABLET PO (09:17)
[2023-01-16] MEDS: EMPAGLIFLOZIN 25 MG TABLET PO (09:17)
[2023-01-16] MEDS: levETIRAcetam 500 MG TABLET PO ×2 (09:17→20:12)
[2023-01-16] MEDS: SILVERGEL (ELTA) 45 ML 1 APPLIC TOPICAL (09:17)
[2023-01-16] MEDS: amLODIPine BESYLATE 2.5 MG TABLET PO (09:17)
[2023-01-16] MEDS: FERROUS GLUCONATE 324 MG TABLET PO (09:17)
[2023-01-16] MEDS: ASPIRIN 81 MG ENTERIC TABLET PO (09:17)
[2023-01-16] MEDS: PRIMIDONE 50 MG TABLET PO ×3 (09:17→18:51)
[2023-01-16] MEDS: BACLOFEN 5 MG TABLET PO ×2 (09:17→18:51)
[2023-01-16] MEDS: ASCORBIC ACID 500 MG TABLET PO ×2 (09:17→18:51)
--- NOTE | 2023-01-16 10:09 | WPDNEURCNPN ---
Assessment and Plan Assessment and plan (1) Status epilepticus: Code(s): G40.901 - Epilepsy, unspecified, not intractable, with status epilepticus Status: Acute (2) Seizure disorder: Code(s): G40.909 - Epilepsy, unspecified, not intractable, without status epilepticus Status: Acute (3) History of CVA (cerebrovascular accident): Code(s): Z86.73 - Personal history of transient ischemic attack (TIA), and cerebral infarction without residual deficits Status: Chronic Plan Bayron Ann is a 62 year old male with a history of CKD, HTN, DM, CHF, prior stroke resulting in seizures presenting due to status epilepticus. Patient reports having some preservation of awareness during what sounded like a generalized episode. This raises suspicion for non-epileptic spells. Obviously he is also at risk for having true epileptic seizures given encephalomalacia which makes treatment challenging. Not sure what to make of the black out spells he is describing. His carotid ultrasound from last month showed <50% stenosis bilaterally. Could be cardiogenic? - I would not increase his Keppra at this time, until we have more definite information about what is occurring during these episodes - Will watch him in the hospital for a few more days to see if he has any more episodes Consult date: 01/16/23 Reason for consult: Status epileptics HPI: Bayron Ann is a 62 year old male with a history of CKD, HTN, DM, CHF, prior stroke resulting in seizures presenting due to concerns of status epilepticus. Patient was recently admitted last week due to increase seizure frequency. He was discharged on his same dose of Keppra 1000mg BID. Patient presented again yesterday due to increase seizures. Patient lives at [facility]. The nursing staff noted that patient had seven seizures prior to arrival in the emergency room. At [facility] he was treated with Ativan and given Keppra 3 gram load. There are reports of good compliance to Keppra. No Keppra level was obtained prior to the load. CT head showed old right MCA territory encephalomalacia. Labs work-up was unrevealing. No signs of illness. Per hospitalist note, patient was twitching and appeared to be having clonic-tonic seizure however patient was talking during the episode. There have been concerns for non-epileptic seizures. Patient reports feeling well this morning. He says he has some recollection of the seizure that occurred yesterday. He remembers the nurse calling out his name and he reports he was able to partially respond. His seizures started last month, but he has been having black out episodes for quite some time, which he describes as passing out and slumping over. He also reports his legs shake due to his neuropathy. Review of Systems Constitutional: Constitutional: Reports no additional constitutional complaints Eyes: Eyes: Reports no additional eye complaints ENT: Reports system reviewed and no additional complaints, except as documented Cardiovascular: Cardiovascular: Reports no additional cardiovascular complaints Respiratory: Respiratory: Reports no additional respiratory complaints Gastrointestinal: Gastrointestinal: Reports no additional gastrointestinal complaints Genitourinary: Genitourinary: Reports no additional male genitourinary complaints Musculoskeletal: Musculoskeletal: Reports no additional musculoskeletal complaints Integumentary/Breasts: Skin/Breast: Reports system reviewed and no additional complaints, except as docu Neurologic: Reports as per HPI Psychiatric: Psychiatric: Reports no additional psychiatric complaints [facility] Past Medical History Medical History Benign prostatic hyperplasia Chronic anemia CKD (chronic kidney disease) stage 3, GFR 30-59 ml/min Colon cancer screening Combined systolic and diastolic congestive heart failure Coronary artery disease Statu
--- NOTE | 2023-01-16 11:25 | PM.IMPN ---
Progress Note: A&P Assessment and Plan (1) Seizure: Code(s): R56.9 - Unspecified convulsions Status: Acute Assessment and Plan: Check Keppra level No seizure activity overnight. Perhaps the patient is having pseudoseizures? Neurology has been consulted Continue with home dose of Keppra P.r.n. Ativan Continue primidone The patient is on Cymbalta perhaps this is causing him to have seizures He is also on Lyrica. (2) Chronic heel ulcer: Code(s): L97.409 - Non-pressure chronic ulcer of unspecified heel and midfoot with unspecified severity Status: Acute Assessment and Plan: Wound care consult has been placed (3) Type 2 diabetes mellitus with hyperglycemia: Qualifiers: Diabetes mellitus correction insulin use: with rodent exterminator use Qualified Code(s): E11.65 - Type 2 diabetes mellitus with hyperglycemia; Z79.4 - roasterman (current) use of insulin Code(s): E11.65 - Type 2 diabetes mellitus with hyperglycemia Status: Acute Assessment and Plan: Accu-Cheks AC and HS with sliding scale insulin and hypoglycemic protocol Continue with Jardiance (4) Depression: Code(s): F32.A - Depression, unspecified Status: Acute Assessment and Plan: Continue with Cymbalta and Lyrica? 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 Definity contrast injected to improve visualization. ? 2. Mild LV enlargement with systolic dysfunction with akinesis of the mid to apical anterior wall, apex, apical septum and apical inferior wall. ? 3. Wall motion abnormalities are compatible with previous mid to apical anterior infarction. ? 4. Dilated left atrium. ? 5. Mild aortic valve stenosis. Left Ventricle ? Left ventricular chamber dimension is mildly enlarged. ? Left ventricular systolic function is moderately reduced, estimated at 35-40%. ? The left ventricular diastolic function is grade I diastolic dysfunction. (8) Hypothyroidism: Qualifiers: Hypothyroidism type: unspecified Qualified Code(s): E03.9 - Hypothyroidism, unspecified Code(s): E03.9 - Hypothyroidism, unspecified Status: Chronic Assessment and Plan: Check thyroid level Continue levothyroxine (9) Benign prostatic hyperplasia: Code(s): N40.0 - Benign prostatic hyperplasia without lower urinary tract symptoms Status: Chronic Assessment and Plan: Continue with tamsulosin (10) Hyperlipidemia: Qualifiers: Hyperlipidemia type: mixed hyperlipidemia Qualified Code(s): E78.2 - Mixed hyperlipidemia Code(s): E78.5 - Hyperlipidemia, unspecified Status: Chronic Assessment and Plan: Atorvastatin (11) Hypertension: Qualifiers: Hypertension type: primary hypertension Qualified Code(s): I10 - Essential (primary) hypertension Code(s): I10 - Essential (primary) hypertension Status: Chronic Assessment and Plan: Continue with amlodipine Subjective Date/time seen: 01/16/23 11:25 No complaints today. No seizure activity overnight. Exam Const: General: cooperative, healthy appearing, comfortable, no acute distress, well developed, awake, Physically active, average body habitus and well nourished Nutritional A
[2023-01-16 12:05] LABS: Glucose Point of Care 220 mg/dl (65-105)
[2023-01-16] MEDS: INSULIN ASPART (*BKC) 100 UNITS/ML SUB-Q (12:36)
[2023-01-16] MEDS: MICONAZOLE NITRATE 2% CREAM 30 GM TUBE 1 APPLIC TOPICAL (12:39)
[2023-01-16 16:51] LABS: Glucose Point of Care 162 mg/dl (65-105)
[2023-01-16] MEDS: TOLNAFTATE 1% POWDER 45 GM BTL 1 APPLIC TOPICAL ×2 (18:28→20:13)
[2023-01-16 20:05] LABS: Glucose Point of Care 192 mg/dl (65-105)
[2023-01-16] MEDS: rOPINIRole HCL 1 MG TABLET PO (20:12)
[2023-01-16] MEDS: INSULIN GLARGINE (*BKC) 100 UNITS/ML 45 UNITS SUB-Q (20:12)
[2023-01-16] MEDS: LATANOPROST 0.005% OP SOLN 2.5 ML BTL 1 DROP EACH EYE (20:12)
[2023-01-16] MEDS: ATORVASTATIN 40 MG TABLET PO (20:12)
[2023-01-16] MEDS: TAMSULOSIN HCL 0.4 MG CAPSULE PO (20:12)
[2023-01-16] MEDS: LORATADINE 10 MG TABLET PO (20:12)
[2023-01-17] VITALS (12 sets, daily range): BP systolic 110–135; BP diastolic 50–72; PULSE 65–89; RESP 16–20; TEMP 36.3–36.6; O2SAT 94–98
[2023-01-17] MEDS: BACLOFEN 5 MG TABLET PO ×4 (00:26→23:36)
[2023-01-17] MEDS: LEVOTHYROXINE SODIUM 25 MCG TABLET PO (05:32)
[2023-01-17] MEDS: LEVOTHYROXINE SODIUM 112 MCG TABLET PO (05:32)
[2023-01-17 07:56] LABS: Glucose Point of Care 127 mg/dl (65-105)
[2023-01-17] MEDS: PRIMIDONE 50 MG TABLET PO ×3 (10:00→18:00)
[2023-01-17] MEDS: PANTOPRAZOLE 40 MG TABLET PO (11:35)
[2023-01-17] MEDS: ASPIRIN 81 MG ENTERIC TABLET PO (11:35)
[2023-01-17] MEDS: PREGABALIN (*CRX) 75 MG CAPSULE 150 MG PO ×2 (11:35→17:58)
[2023-01-17] MEDS: THERAPEUTIC MULTIVITAMINS/MINERALS TAB (*BKC) 1 TABLET PO (11:35)
[2023-01-17] MEDS: MAGNESIUM OXIDE 400 MG TABLET PO (11:35)
[2023-01-17] MEDS: levETIRAcetam 500 MG TABLET PO ×2 (11:36→20:46)
[2023-01-17] MEDS: lisinopriL 2.5 MG TABLET PO (11:36)
[2023-01-17] MEDS: DULoxetine HCL 60 MG CAPSULE.DR PO (11:37)
[2023-01-17] MEDS: EMPAGLIFLOZIN 25 MG TABLET PO (11:37)
[2023-01-17] MEDS: ASCORBIC ACID 500 MG TABLET PO ×2 (11:38→17:59)
[2023-01-17] MEDS: amLODIPine BESYLATE 2.5 MG TABLET PO (11:38)
[2023-01-17] MEDS: BRIMONIDINE TARTRATE 0.2% OP SOLN 5 ML BTL 1 DROP EACH EYE ×2 (11:38→17:59)
[2023-01-17] MEDS: POTASSIUM CHLORIDE 10 MEQ TABLET.ER PO (11:39)
[2023-01-17] MEDS: TOLNAFTATE 1% POWDER 45 GM BTL 1 APPLIC TOPICAL ×2 (11:39→20:47)
[2023-01-17] MEDS: SILVERGEL (ELTA) 45 ML 1 APPLIC TOPICAL (11:39)
[2023-01-17] MEDS: FERROUS GLUCONATE 324 MG TABLET PO (11:39)
[2023-01-17 11:46] LABS: Glucose Point of Care 148 mg/dl (65-105)
[2023-01-17 15:22] LABS: Levetiracetam Keppra 12.9 mcg/mL (6.0-46.0)
--- NOTE | 2023-01-17 16:18 | PM.IMPN ---
Progress Note: A&P Assessment and Plan (1) Seizure: Code(s): R56.9 - Unspecified convulsions Status: Acute Assessment and Plan: Check Keppra level No seizure activity overnight. Perhaps the patient is having pseudoseizures? Neurology has been consulted Continue with home dose of Keppra P.r.n. Ativan Continue primidone The patient is on Cymbalta perhaps this is causing him to have seizures He is also on Lyrica. (2) Chronic heel ulcer: Code(s): L97.409 - Non-pressure chronic ulcer of unspecified heel and midfoot with unspecified severity Status: Acute Assessment and Plan: Wound care consult has been placed (3) Type 2 diabetes mellitus with hyperglycemia: Qualifiers: Diabetes mellitus fpc insulin use: with unit controller use Qualified Code(s): E11.65 - Type 2 diabetes mellitus with hyperglycemia; Z79.4 - new car get ready mechanic (current) use of insulin Code(s): E11.65 - Type 2 diabetes mellitus with hyperglycemia Status: Acute Assessment and Plan: Accu-Cheks AC and HS with sliding scale insulin and hypoglycemic protocol Continue with Jardiance (4) Depression: Code(s): F32.A - Depression, unspecified Status: Acute Assessment and Plan: Continue with Cymbalta and Lyrica? 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 Definity contrast injected to improve visualization. ? 2. Mild LV enlargement with systolic dysfunction with akinesis of the mid to apical anterior wall, apex, apical septum and apical inferior wall. ? 3. Wall motion abnormalities are compatible with previous mid to apical anterior infarction. ? 4. Dilated left atrium. ? 5. Mild aortic valve stenosis. Left Ventricle ? Left ventricular chamber dimension is mildly enlarged. ? Left ventricular systolic function is moderately reduced, estimated at 35-40%. ? The left ventricular diastolic function is grade I diastolic dysfunction. (8) Hypothyroidism: Qualifiers: Hypothyroidism type: unspecified Qualified Code(s): E03.9 - Hypothyroidism, unspecified Code(s): E03.9 - Hypothyroidism, unspecified Status: Chronic Assessment and Plan: Check thyroid level Continue levothyroxine (9) Benign prostatic hyperplasia: Code(s): N40.0 - Benign prostatic hyperplasia without lower urinary tract symptoms Status: Chronic Assessment and Plan: Continue with tamsulosin (10) Hyperlipidemia: Qualifiers: Hyperlipidemia type: mixed hyperlipidemia Qualified Code(s): E78.2 - Mixed hyperlipidemia Code(s): E78.5 - Hyperlipidemia, unspecified Status: Chronic Assessment and Plan: Atorvastatin (11) Hypertension: Qualifiers: Hypertension type: primary hypertension Qualified Code(s): I10 - Essential (primary) hypertension Code(s): I10 - Essential (primary) hypertension Status: Chronic Assessment and Plan: Continue with amlodipine Plan (1) Seizure Check Keppra level No seizure activity overnight. Perhaps the patient is having pseudoseizures Continue Keppra per neurology P.r.n. Ativan Neurology following (2) Chronic heel ulcer: Wound care consult has been placed (3) Type 2 diabetes mellitus w
[2023-01-17 16:51] LABS: Glucose Point of Care 178 mg/dl (65-105)
[2023-01-17 20:25] LABS: Glucose Point of Care 191 mg/dl (65-105)
[2023-01-17] MEDS: LATANOPROST 0.005% OP SOLN 2.5 ML BTL 1 DROP EACH EYE (20:45)
[2023-01-17] MEDS: INSULIN GLARGINE (*BKC) 100 UNITS/ML 45 UNITS SUB-Q (20:45)
[2023-01-17] MEDS: rOPINIRole HCL 1 MG TABLET PO (20:46)
[2023-01-17] MEDS: ATORVASTATIN 40 MG TABLET PO (20:46)
[2023-01-17] MEDS: TAMSULOSIN HCL 0.4 MG CAPSULE PO (20:46)
[2023-01-17] MEDS: LORATADINE 10 MG TABLET PO (20:46)
[2023-01-18] VITALS (15 sets, daily range): BP systolic 100–151; BP diastolic 48–96; PULSE 68–90; RESP 16–20; TEMP 36.1–36.6; O2SAT 92–98
[2023-01-18 05:01] LABS: Basophils Absolute Auto 0.1 K/mm3 (0.0-0.1); Eosinophils Absolute Auto 0.2 K/mm3 (0-0.3); Eosinophils Percent Auto 2.6 % (0-4.4); Hematocrit 42.7 % (42.0-52.0); Hemoglobin 13.7 g/dL (14.0-18.0); Immature Granulocyte Absolute 0.18 K/mm3 (0.00-0.031); Immature Granulocyte Percent A 2.1 % (0-0.5); Lymphocytes Absolute Auto 1.02 K/mm3 (0.9-3.2); Lymphocytes Percent Auto 11.7 % (18.3-44.2); Mean Corpuscular HGB Conc 32.1 g/dl (32-36); Mean Corpuscular Hemoglobin 30.1 pg (26-34); Mean Corpuscular Volume 93.8 fl (80-100); Mean Platelet Volume 12.2 fl (7.4-10.4); Monocytes Absolute Auto 0.9 K/mm3 (0.1-0.6); Monocytes Percent Auto 10.2 % (2.6-8.5); Neutrophils Absolute Auto 6.3 K/mm3 (1.3-6.7); Neutrophils Percent Auto 72.4 % (45.5-73.1); Platelet Count Result 152 k/mm3 (150-375); Red Blood Count 4.55 M/mm3 (4.6-6.20); Red Cell Distribution Width 15.3 % (11.5-14.5); White Blood Count 8.7 K/mm3 (4.5-10.0)
[2023-01-18 05:13] LABS: Alanine Aminotransferase 17 U/L (6-50); Albumin Level 3.8 g/dL (3.5-5.1); Alkaline Phosphatase 79 U/L (38-126); Anion Gap 5 mmol/L (8-16); Aspartate Amino Transferase 18 U/L (17-59); Bilirubin,Total 0.5 mg/dL (0.2-1.3); Blood Urea Nitrogen 30 mg/dL (9-20); Calcium 8.7 mg/dL (8.4-10.2); Carbon Dioxide 25 mmol/L (22-30); Chloride 105 mmol/L (98-107); Estimated CRCL calculation 93 ml/min; Estimated Glomerular Filt Rate > 60; Glucose 110 mg/dL (65-110); Potassium 4.4 mmol/L (3.4-5.0); Sodium 135 mmol/L (137-145)
[2023-01-18] MEDS: LEVOTHYROXINE SODIUM 112 MCG TABLET PO (05:59)
[2023-01-18] MEDS: LEVOTHYROXINE SODIUM 25 MCG TABLET PO (05:59)
[2023-01-18 08:25] LABS: Glucose Point of Care 99 mg/dl (65-105)
[2023-01-18] MEDS: TOLNAFTATE 1% POWDER 45 GM BTL 1 APPLIC TOPICAL ×2 (09:45→21:31)
[2023-01-18] MEDS: SILVERGEL (ELTA) 45 ML 1 APPLIC TOPICAL (09:46)
[2023-01-18] MEDS: PANTOPRAZOLE 40 MG TABLET PO (09:47)
[2023-01-18] MEDS: PREGABALIN (*CRX) 75 MG CAPSULE 150 MG PO ×2 (09:47→16:25)
[2023-01-18] MEDS: POTASSIUM CHLORIDE 10 MEQ TABLET.ER PO (09:47)
[2023-01-18] MEDS: PRIMIDONE 50 MG TABLET PO ×3 (09:47→16:25)
[2023-01-18] MEDS: FERROUS GLUCONATE 324 MG TABLET PO (09:48)
[2023-01-18] MEDS: MAGNESIUM OXIDE 400 MG TABLET PO (09:48)
[2023-01-18] MEDS: THERAPEUTIC MULTIVITAMINS/MINERALS TAB (*BKC) 1 TABLET PO (09:48)
[2023-01-18] MEDS: lisinopriL 2.5 MG TABLET PO (09:48)
[2023-01-18] MEDS: ENOXAPARIN 40 MG/0.4 ML SYRINGE SUB-Q (09:48)
[2023-01-18] MEDS: levETIRAcetam 500 MG TABLET PO ×2 (09:48→21:27)
[2023-01-18] MEDS: BRIMONIDINE TARTRATE 0.2% OP SOLN 5 ML BTL 1 DROP EACH EYE ×2 (09:52→16:26)
[2023-01-18] MEDS: DULoxetine HCL 60 MG CAPSULE.DR PO (09:52)
[2023-01-18] MEDS: EMPAGLIFLOZIN 25 MG TABLET PO (09:52)
[2023-01-18] MEDS: ASCORBIC ACID 500 MG TABLET PO ×2 (09:53→16:26)
[2023-01-18] MEDS: amLODIPine BESYLATE 2.5 MG TABLET PO (09:53)
[2023-01-18] MEDS: ASPIRIN 81 MG ENTERIC TABLET PO (09:53)
[2023-01-18] MEDS: BACLOFEN 5 MG TABLET PO ×2 (09:54→16:27)
[2023-01-18 12:46] LABS: Glucose Point of Care 157 mg/dl (65-105)
--- NOTE | 2023-01-18 15:04 | PM.IMPN ---
Progress Note: A&P Assessment and Plan (1) Seizure: Code(s): R56.9 - Unspecified convulsions Status: Acute Assessment and Plan: Check Keppra level No seizure activity overnight. Perhaps the patient is having pseudoseizures? Neurology has been consulted Continue with home dose of Keppra P.r.n. Ativan Continue primidone The patient is on Cymbalta perhaps this is causing him to have seizures He is also on Lyrica. 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 Definity contrast injected to improve visualization. ? 2. Mild LV enlargement with systolic dysfunction with akinesis of the mid to apical anterior wall, apex, apical septum and apical inferior wall. ? 3. Wall motion abnormalities are compatible with previous mid to apical anterior infarction. ? 4. Dilated left atrium. ? 5. Mild aortic valve stenosis. Left Ventricle ? Left ventricular chamber dimension is mildly enlarged. ? Left ventricular systolic function is moderately reduced, estimated at 35-40%. ? The left ventricular diastolic function is grade I diastolic dysfunction. (8) Hypothyroidism: Qualifiers: Hypothyroidism type: unspecified Qualified Code(s): E03.9 - Hypothyroidism, unspecified Code(s): E03.9 - Hypothyroidism, unspecified Status: Chronic Assessment and Plan: Check thyroid level Continue levothyroxine (9) Benign prostatic hyperplasia: Code(s): N40.0 - Benign prostatic hyperplasia without lower urinary tract symptoms Status: Chronic Assessment and Plan: Continue with tamsulosin (10) Hyperlipidemia: Qualifiers: Hyperlipidemia type: mixed hyperlipidemia Qualified Code(s): E78.2 - Mixed hyperlipidemia Code(s): E78.5 - Hyperlipidemia, unspecified Status: Chronic Assessment and Plan: Atorvastatin (11) Hypertension: Qualifiers: Hypertension type: primary hypertension Qualified Code(s): I10 - Essential (primary) hypertension Code(s): I10 - Essential (primary) hypertension Status: Chronic Assessment and Plan: Continue with amlodipine Plan (1) Seizure Check Keppra level No seizure activity overnight. Perhaps the patient is having pseudoseizures Continue Keppra per neurology [facility] noted patient will be monitored in the hospital for a few more days, thus awaiting neurology clearance for disc
[2023-01-18 17:04] LABS: Glucose Point of Care 123 mg/dl (65-105)
[2023-01-18 21:08] LABS: Glucose Point of Care 150 mg/dl (65-105)
[2023-01-18] MEDS: INSULIN GLARGINE (*BKC) 100 UNITS/ML 45 UNITS SUB-Q (21:26)
[2023-01-18] MEDS: TAMSULOSIN HCL 0.4 MG CAPSULE PO (21:27)
[2023-01-18] MEDS: LATANOPROST 0.005% OP SOLN 2.5 ML BTL 1 DROP EACH EYE (21:27)
[2023-01-18] MEDS: rOPINIRole HCL 1 MG TABLET PO (21:27)
[2023-01-18] MEDS: ATORVASTATIN 40 MG TABLET PO (21:27)
[2023-01-18] MEDS: LORATADINE 10 MG TABLET PO (21:27)
[2023-01-19] VITALS (8 sets, daily range): BP systolic 92–123; BP diastolic 57–67; PULSE 68–90; RESP 16–20; TEMP 36.1–36.6; O2SAT 92–97
[2023-01-19] MEDS: BACLOFEN 5 MG TABLET PO ×2 (00:04→10:33)
[2023-01-19 05:23] LABS: Basophils Absolute Auto 0.1 K/mm3 (0.0-0.1); Basophils Percent Auto 0.8 % (0.2-1.2); Eosinophils Absolute Auto 0.2 K/mm3 (0-0.3); Eosinophils Percent Auto 2.9 % (0-4.4); Hematocrit 43.2 % (42.0-52.0); Hemoglobin 14.1 g/dL (14.0-18.0); Immature Granulocyte Absolute 0.13 K/mm3 (0.00-0.031); Immature Granulocyte Percent A 1.7 % (0-0.5); Lymphocytes Absolute Auto 1.11 K/mm3 (0.9-3.2); Lymphocytes Percent Auto 14.6 % (18.3-44.2); Mean Corpuscular HGB Conc 32.6 g/dl (32-36); Mean Corpuscular Hemoglobin 30.7 pg (26-34); Mean Corpuscular Volume 93.9 fl (80-100); Mean Platelet Volume 11.7 fl (7.4-10.4); Monocytes Absolute Auto 0.8 K/mm3 (0.1-0.6); Monocytes Percent Auto 10.7 % (2.6-8.5); Neutrophils Absolute Auto 5.3 K/mm3 (1.3-6.7); Neutrophils Percent Auto 69.3 % (45.5-73.1); Platelet Count Result 158 k/mm3 (150-375); Red Cell Distribution Width 15.2 % (11.5-14.5); White Blood Count 7.6 K/mm3 (4.5-10.0)
[2023-01-19 05:48] LABS: Alanine Aminotransferase 16 U/L (6-50); Albumin Level 3.9 g/dL (3.5-5.1); Alkaline Phosphatase 76 U/L (38-126); Anion Gap 4 mmol/L (8-16); Aspartate Amino Transferase 20 U/L (17-59); Bilirubin,Total 0.5 mg/dL (0.2-1.3); Blood Urea Nitrogen 37 mg/dL (9-20); Calcium 8.9 mg/dL (8.4-10.2); Carbon Dioxide 28 mmol/L (22-30); Chloride 104 mmol/L (98-107); Estimated CRCL calculation 85 ml/min; Estimated Glomerular Filt Rate > 60; Glucose 133 mg/dL (65-110); Potassium 4.8 mmol/L (3.4-5.0); Sodium 136 mmol/L (137-145)
[2023-01-19] MEDS: LEVOTHYROXINE SODIUM 112 MCG TABLET PO (06:19)
[2023-01-19] MEDS: LEVOTHYROXINE SODIUM 25 MCG TABLET PO (06:19)
[2023-01-19 07:51] LABS: Glucose Point of Care 119 mg/dl (65-105)
[2023-01-19] MEDS: ASCORBIC ACID 500 MG TABLET PO (10:35)
[2023-01-19] MEDS: ASPIRIN 81 MG ENTERIC TABLET PO (10:36)
[2023-01-19] MEDS: DULoxetine HCL 60 MG CAPSULE.DR PO (10:36)
[2023-01-19] MEDS: EMPAGLIFLOZIN 25 MG TABLET PO (10:37)
[2023-01-19] MEDS: ENOXAPARIN 40 MG/0.4 ML SYRINGE SUB-Q (10:37)
[2023-01-19] MEDS: FERROUS GLUCONATE 324 MG TABLET PO (10:39)
[2023-01-19] MEDS: amLODIPine BESYLATE 2.5 MG TABLET PO (10:41)
[2023-01-19] MEDS: lisinopriL 2.5 MG TABLET PO (10:41)
[2023-01-19] MEDS: MAGNESIUM OXIDE 400 MG TABLET PO (10:42)
--- NOTE | 2023-01-19 10:42 | PM.DS ---
DS: Admitting Diagnosis Discharge Date 01/19/23 Admitting Diagnosis Seizure activity DS: Discharge Diagnosis Discharge Diagnosis Plan Plan (1) Seizure Check Keppra level No seizure activity overnight. Perhaps the patient is having pseudoseizures Continue Keppra per neurology P.r.n. [facility] Neu[facility] noted to increase Keppra and monitor in the hospital for a few more days, Patient has been asymptomatic since admission Neurology approved discharge and will f/u outpatient keppra increased to 750 bid (2) Chronic heel ulcer: Wound care consult has been placed (3) Type 2 diabetes mellitus with hyperglycemia Accu-Cheks AC and HS with sliding scale insulin and hypoglycemic protocol Continue with Jardiance (4) Depression: Continue with Cymbalta and Lyrica? 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 Definity contrast injected to improve visualization. ? 2. Mild LV enlargement with systolic dysfunction with akinesis of the mid to apical anterior wall, apex, apical septum and apical inferior wall. ? 3. Wall motion abnormalities are compatible with previous mid to apical anterior infarction. ? 4. Dilated left atrium. ? 5. Mild aortic valve stenosis. Left Ventricle ? Left ventricular chamber dimension is mildly enlarged. ? Left ventricular systolic function is moderately reduced, estimated at 35-40%. ? The left ventricular diastolic function is grade I diastolic dysfunction. Cardiology referral for f/u in 1- 2 weeks (8) Hypothyroidism Check thyroid level Continue levothyroxine (9) Benign prostatic hyperplasia Continue with tamsulosin (10) Hyperlipidemia Atorvastatin (11) Hypertension Continue with amlodipine F/u with PCP in 3-5 days DS: Summary Hospital Course Hospital Course: Presented to the ER with seizure activity, evaluated by neurology who suspected non epileptic seizure, keppra was increased and patient was observed in the hospital for another 3 day with no symptoms. Discharged today back to SNF, will f/u with neurology as instructed, PCP in 3-5 days, cardiology referral to follow up in 1-2 weeks. Time Spent with Patient Time attestation: Total time spent providing and/or coordinating discharge services: DS: Data Data Completed and Pending Labs on day of discharge: Labs from last 24 hours 01/19/23 01/19/23 01/19/23 07:41 05:00 05:00 WBC 7.6 RBC 4.60 Hgb 14.1 Hct 43.2 MCV 93.9 MCH 30.7 MCHC 32.6 RDW 15.2 H Plt Count 158 MPV 11.7 H Immature Gran % (Auto) 1.7 H Neut % (Auto) 69.3 Lymph % (Auto) 14.6 L Blaine % (Auto) 10.7 H Eos % (Auto) 2.9 Baso % (Auto) 0.8 Lymph # (Auto) 1.11 Blaine # (Auto) 0.8 H Eos # (Auto) 0.2 Baso # (Auto) 0.1 Abs Immat Gran (auto) 0.13 H Absolute Neuts (auto) 5.3 Absolute Nucleated RBC 0.0 Nucleated RBC % 0.0 Sodium 136 L Potassium 4.8 Chloride 104 Carbon Dioxide 28 Anion Gap 4 L BUN 37 H Creatinine 1.10 Estim Creat Clear Calc 85 Estimated GFR > 60 Glucose 133 H POC Capillary Glucose 119 H Calcium 8.9 Total Bilirubin 0.5 AST 20 ALT 16 Alkaline Phosphatase 76 Total Protein 7.0 Albumin 3.9 01/18/23 01/18/23 01/18/23 20:59 16:40 11:41 WBC RBC Hgb Hct MCV MCH MCHC RDW Plt Count MPV Immature Gran % (Auto) Neut % (Auto) Lymph % (Auto) Blaine % (Auto) Eos % (Auto) Baso % (Auto) Lymph # (Auto) Blaine # (Auto) Eos # (Auto) Baso # (Auto) Abs Immat Gran (auto) Absolute Neuts (auto) Absolute Nucleated RBC Nucleated RBC % Sodium Potassium Chloride Carbon Dioxide Anion Gap BUN Creatinine Estim Creat Clear Calc Estimated GFR Glucose POC Capillary
[2023-01-19] MEDS: PANTOPRAZOLE 40 MG TABLET PO (10:43)
[2023-01-19] MEDS: THERAPEUTIC MULTIVITAMINS/MINERALS TAB (*BKC) 1 TABLET PO (10:43)
[2023-01-19] MEDS: POTASSIUM CHLORIDE 10 MEQ TABLET.ER PO (10:44)
[2023-01-19] MEDS: PRIMIDONE 50 MG TABLET PO (10:45)
[2023-01-19] MEDS: BRIMONIDINE TARTRATE 0.2% OP SOLN 5 ML BTL 1 DROP EACH EYE (10:46)
[2023-01-19] MEDS: TOLNAFTATE 1% POWDER 45 GM BTL 1 APPLIC TOPICAL (10:50)
[2023-01-19] MEDS: SILVERGEL (ELTA) 45 ML 1 APPLIC TOPICAL (10:50)
[2023-01-19] MEDS: PREGABALIN (*CRX) 75 MG CAPSULE 150 MG PO (10:55)
[2023-01-19 11:30] LABS: Glucose Point of Care 152 mg/dl (65-105)
[2023-01-19] MEDS: levETIRAcetam 500 MG TABLET PO (12:05)
[2023-01-19 12:31] LABS: EDCOVIDSCREEN Negative (Negative)
== END 2023-01-19 13:52 | DRG 100 ==
LOC: ANHED 15:21 → ANHIMU 16:20
PROVIDERS: Nurse Practitioner; Admitting Provider Chiropractor; Emergency Provider Emergency Medicine; PCP Family Medicine; Visit Provider Internal Medicine
DX: G40.901 Epilepsy, unspecified, not intractable, with status epilepticus (principal); I50.43 Acute on chronic combined systolic (congestive) and diastolic (congestive) heart failure; L89.624 Pressure ulcer of left heel, stage 4; I13.0 Hypertensive heart and chronic kidney disease with heart failure and stage 1 through stage 4 chronic kidney disease, or unspecified chronic kidney disease; I69.354 Hemiplegia and hemiparesis following cerebral infarction affecting left non-dominant side; D63.1 Anemia in chronic kidney disease; E11.22 Type 2 diabetes mellitus with diabetic chronic kidney disease; E11.65 Type 2 diabetes mellitus with hyperglycemia; E78.5 Hyperlipidemia, unspecified; E03.9 Hypothyroidism, unspecified; F32.A Depression, unspecified; G93.89 Other specified disorders of brain; H40.9 Unspecified glaucoma; I69.398 Other sequelae of cerebral infarction; I25.10 Atherosclerotic heart disease of native coronary artery without angina pectoris; I25.5 Ischemic cardiomyopathy; I25.2 Old myocardial infarction; M10.9 Gout, unspecified; N40.0 Benign prostatic hyperplasia without lower urinary tract symptoms; N18.30 Chronic kidney disease, stage 3 unspecified; Z20.822 Contact with and (suspected) exposure to COVID-19; Z79.82 Long term (current) use of aspirin; Z79.4 Long term (current) use of insulin; Z95.1 Presence of aortocoronary bypass graft
CPT/HCPCS: 36415; 70450; 72125; 73110; 80053; 80177; 81001; 82948; 83605; 83735; 84145; 84439; 84443; 84480; 85025; 85610; 85730; 87426; 87637; 96361; 96365; 99285; A9270; C9803; G0378; J1650; J1815; J1953; J7030

== ENCOUNTER 2023-01-23 07:22 | Outpatient (RCR) | payer MEDICAID, SELFPAY ==
[2022-09-25 00:06] VITALS: BMI 30.4
--- NOTE | 2022-10-31 16:19 | P.PNWOUND_ITS ---
Wound Care Note Date/Time: 10/31/22 16:19 History: 62 yo man with left heel decubitus ulcer.? Has hx of CVA and is bed and wheel chair bound. He is doing well with current wound care and denies any changes or concerns. 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 Will have patient follow-up in the office in 6 weeks to reassess. Continue limiting pressure to the heel to prevent any further pressure injuries. (2) History of CVA (cerebrovascular accident): Code(s): Z86.73 - Personal history of transient ischemic attack (TIA), and cerebral infarction without residual deficits Status: Acute Review of Systems Review of Systems: All systems reviewed & are unremarkable except as noted in HPI and below Exam Extrem: Other: Left heel ulcer still measuring about 4 cm x 4 cm. There is good granulation tissue and evidence of slow healing. No exposed bone or purulence drainage.
--- NOTE | 2022-12-12 13:15 | P.PNWOUND_ITS ---
Wound Care Note Date/Time: 12/12/22 13:15 History: 62 yo man with left heel decubitus ulcer.? Has hx of CVA and is bed and wheel chair bound.? He is doing well with current wound care and denies any changes or concerns. He is continuing to work with PT to increase mobility and strength. 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 Will add antifungal powder to surrounding skin. Will have patient follow-up in the office in 6 weeks to reassess. Continue limiting pressure to the heel to prevent any further pressure injuries. (2) History of CVA (cerebrovascular accident): Code(s): Z86.73 - Personal history of transient ischemic attack (TIA), and cerebral infarction without residual deficits Status: Chronic Exam Extrem: Other: Left heel ulcer with good granulation tissue. Surrounding skin has yeast appearing rash developing. No other wound breakdown or signs of soft tissue infection.
--- NOTE | 2023-01-23 12:34 | P.PNWOUND_ITS ---
Wound Care Note Date/Time: 01/23/23 12:34 History: 62 yo man with left heel decubitus ulcer.? Has hx of CVA and is bed and wheel chair bound.? He is doing well with current wound care and denies any changes or concerns.? He is continuing to work with PT to increase mobility and strength. He was recently hospitalized for seizure activity. He was seen by the wound care nurses at time but no further changes to treatment were needed. He was discharged back to his intermediate facility on 01/19/2023. 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 Will have patient follow-up in the office in 6 weeks to reassess. Continue limiting pressure to the heel to prevent any further pressure injuries. (2) History of CVA (cerebrovascular accident): Code(s): Z86.73 - Personal history of transient ischemic attack (TIA), and cerebral infarction without residual deficits Status: Chronic Exam Extrem: Other: Left heel ulcer continuing to show signs of healing. Tissue remains healthy.
== END 2023-01-29 23:59 | disposition home or self-care (01) ==
LOC: ANHWOC 07:22
PROVIDERS: PCP Family Medicine; Visit Provider Surgery
DX: E11.621 Type 2 diabetes mellitus with foot ulcer (principal); L89.624 Pressure ulcer of left heel, stage 4
CPT/HCPCS: 99212; 99213; A9270; G0463

== ENCOUNTER 2023-01-30 20:38 | Observation (INO) | payer MEDICAID, SELFPAY ==
[2023-01-30] VITALS (13 sets, daily range): BP systolic 140–172; BP diastolic 76–88; PULSE 88–103; RESP 15–22; TEMP 36.9; O2SAT 93–100
--- NOTE | ~2023-01-30 | MR_ITS ---
EXAMINATION: MR brain/brain stem wo/w con DATE: 01/31/2023 08:58 INDICATION: Right hemiparesis. Right-sided paresthesias. TECHNIQUE: Magnetic resonance imaging (MRI) of the brain and brainstem was performed without and with 20 mL MultiHance intravenous contrast. COMPARISON: Brain MRI 01/03/2023, head CT 01/30/2023 FINDINGS: There is an old infarct involving the right frontal temporal parietal occipital region and posterior right insula. Areas of decreased T2*-weighted signal intensity in the old infarct correlate with calcifications by CT. Increased T2-weighted signal intensity extending from the old infarct int o the posterior limb right internal capsule and right thalamus may be chronic Wallerian degeneration. There are a few scattered foci of old microhemorrhage in the brain. There is no abnormal mass lesion or acute ischemic infarct. There is ex vacuo dilatation of trigone of right lateral ventricle. There is mucosal thickening in the paranasal sinuses. The orbits are normal. The mastoid air cells are nor mal. IMPRESSION: 1. Old infarct in the expected distribution of the right middle cerebral artery. Reviewed, dictated and finalized at location A. IMPRESSION: 1. Old infarct in the expected distribution of the right middle cerebral artery .
--- NOTE | ~2023-01-30 | XR_ITS ---
EXAMINATION: XR chest 1V portable INDICATION: Stroke symptoms TECHNIQUE: Portable AP chest at 2103 hours COMPARISON: 01/07/2023 FINDINGS: Cardiomegaly is noted. There is mild diffuse interstitial pattern. A small left pleural eff usion is present and not significantly changed. There is no pneumothorax. Median sternotomy wires and mediastinal surgical clips are seen, likely from prior coronary artery bypass grafting. IMPRESSION: 1. Cardiomegaly with mild pulmonary edema. 2. Small left pleural effusion. Reviewed, dictated and finalized at location F.
--- NOTE | ~2023-01-30 | CT_ITS ---
EXAMINATION: CT brain wo con INDICATION: Headache COMPARISON: None TECHNIQUE: Standard unenhanced head CT. The dose-length product (DLP) was 756.67 mGy-cm. The mA was a djusted according to patient size. Iterative reconstruction technique was employed. FINDINGS: There is no acute intraparenchymal hemorrhage. No evidence of mass lesion. No evidence of a cute infarction. There is an old infarct in the expected distribution of the right middle cerebral ar araceli. Extra-axial enlargement of the right lateral ventricle is again noted. Intracranial calcified c erebral atherosclerosis is noted. There are no extra-axial collections. There is no mass effect or mi dline shift. The orbits and soft tissues are unremarkable. The visualized sinuses and mastoid air gilberto ls are well aerated. IMPRESSION: 1. Old right middle cerebral artery distribution infarct without acute intracranial abnormality. 2. Age related findings. As per stroke protocol, I called these results to the Emergency Department, and discussed with Dr. Julius Prieto MD at 2050 hours on 01/30/2023. Reviewed, dictated and finalized at location F. IMPRESSION: 1. Old right middle cerebral artery distribution infarct without acute intracra nial abnormality. 2. Age related findings. As per stroke protocol, I called these results to the Emergency Department, and discussed with Dr. Timbo Prieto MD at 2050 hours on 01/30/2023.
--- NOTE | ~2023-01-30 | CT_ITS ---
EXAMINATION: CTA brain carotid DATE: 01/30/2023 21:59 INDICATION: Right-sided facial droop TECHNIQUE: Computed tomographic angiography (CTA) of the head was performed with 100 mL Omnipaque-350 intravenous contrast. CTA of the neck was performed with intravenous contrast. The dose-length produ ct was 1278.81 mGy-cm. Maximum intensity projection and volume rendered 3D-reconstructions were creat ed by the technologist on a separate workstation. Automated exposure control and iterative reconstruc tion technique were employed. COMPARISON: 03/31/2021 FINDINGS: HEAD CTA: There is no acute intraparenchymal hemorrhage. No evidence of mass lesion. No evidence of a cute infarction. Again seen is an old infarct in the expected distribution of the right middle cerebr al artery. Ex-vacuo enlargement of the right lateral ventricle is again noted. Intracranial calcified cerebral atherosclerosis is noted. There are no extra-axial collections. There is no mass effect or midline shift. The orbits and soft tissues are unremarkable. There is mild mucosal thickening of the paranasal sinuses. There is no significant stenosis of the basilar artery or posterior cerebral arteries. There is no si gnificant stenosis of the intracranial internal carotid arteries or the anterior or middle cerebral a rteries. The anterior communicating artery and posterior communicating arteries are normal. There is no aneurysm. NECK CTA: The thyroid gland is unremarkable. The submandibular and parotid glands are symmetric. Ther e is no lymphadenopathy. There are no masses identified. The airway is unremarkable. There are mild c ervical spondylosis. There is a small left pleural effusion. There are minimal airspace opacities of the upper lobes. Mild mediastinal lymphadenopathy is noted, likely reactive. There is 16% stenosis of the proximal right internal carotid artery relative to normal distal artery lumen diameter (NASCET criteria). There is 28% stenosis of the proximal left internal carotid artery relative to normal distal artery lumen diameter. IMPRESSION: 1. Areas of prior infarction in the right middle cerebral artery distribution without acute intracran ial abnormality. Normal head CTA. 2. 16% stenosis of the proximal right internal carotid artery relative to normal distal artery lumen diameter (NASCET criteria). 3. 28% stenosis of the proximal left internal carotid artery relative to normal distal artery lumen d iameter. Reviewed, dictated and finalized at location F. IMPRESSION: 1. Areas of prior infarction in the right middle cerebral artery distribution w ithout acute intracranial abnormality. Normal head CTA. 2. 16% stenosis of the proximal right internal carotid artery relative to sameer l distal artery lumen diameter (NASCET criteria). 3. 28% stenosis of the proximal left internal carotid artery relative to normal distal artery lumen diameter.
--- NOTE | 2023-01-30 20:53 | ECG_ITS ---
Measurements Intervals [place] Rate: 112 P: 57 AR: 172 QRS: -30 QRSD: 111 T: 114 QT: 343 QTc: 469 Interpretive Statements SINUS TACHYCARDIA INTRAVENTRICULAR CONDUCTION DELAY CANNOT RULE OUT SEPTAL INFARCT, AGE INDETERMINATE CONSIDER INFERIOR INFARCT, AGE INDETERMINATE ST-T WAVE ABNORMALITY IN HIGH LATERAL LEADS- CONSIDER ISCHEMIA BASELINE ARTIFACT- I, II, III, AVR, AVL AVF, V3-V6 ABNORMAL ECG COMPARED TO ECG 01/07/2023 21:02:10 SINUS TACHYCARDIA NOW PRESENT Electronically Signed On 01-30-2023 21:59:06 CDT by Valentín James D.O.
[2023-01-30 21:14] LABS: Basophils Absolute Auto 0.1 K/mm3 (0.0-0.1); Basophils Percent Auto 1.1 % (0.2-1.2); Eosinophils Absolute Auto 0.4 K/mm3 (0-0.3); Eosinophils Percent Auto 4.3 % (0-4.4); Hematocrit 43.6 % (42.0-52.0); Hemoglobin 14.2 g/dL (14.0-18.0); Immature Granulocyte Absolute 0.23 K/mm3 (0.00-0.031); Immature Granulocyte Percent A 2.7 % (0-0.5); Lymphocytes Absolute Auto 1.44 K/mm3 (0.9-3.2); Lymphocytes Percent Auto 16.8 % (18.3-44.2); Mean Corpuscular HGB Conc 32.6 g/dl (32-36); Mean Corpuscular Hemoglobin 30.1 pg (26-34); Mean Corpuscular Volume 92.4 fl (80-100); Mean Platelet Volume 10.7 fl (7.4-10.4); Monocytes Absolute Auto 0.8 K/mm3 (0.1-0.6); Monocytes Percent Auto 9.6 % (2.6-8.5); Neutrophils Absolute Auto 5.6 K/mm3 (1.3-6.7); Neutrophils Percent Auto 65.5 % (45.5-73.1); Platelet Count Result 144 k/mm3 (150-375); Red Blood Count 4.72 M/mm3 (4.6-6.20); White Blood Count 8.6 K/mm3 (4.5-10.0)
[2023-01-30 21:19] LABS: INR 1.2; Prothrombin Time 14.3 Seconds (11.1-14.7)
[2023-01-30 21:22] LABS: Ethanol < 10 mg/dL (<10); Lactic Acid Reflex 1.8 mmol/L (0.7-2.0)
--- NOTE | 2023-01-30 21:30 | PC.NURSE ---
RN attempted to call [facility] for report x4 no answer. MD order RN to call PD for a wellness check.
[2023-01-30 21:42] LABS: Alanine Aminotransferase 19 U/L (6-50); Albumin Level 4.3 g/dL (3.5-5.1); Alkaline Phosphatase 120 U/L (38-126); Anion Gap 10 mmol/L (8-16); Aspartate Amino Transferase 21 U/L (17-59); Bilirubin,Total 0.5 mg/dL (0.2-1.3); Blood Urea Nitrogen 31 mg/dL (9-20); Calcium 8.5 mg/dL (8.4-10.2); Carbon Dioxide 25 mmol/L (22-30); Chloride 108 mmol/L (98-107); Estimated Glomerular Filt Rate > 60; Glucose 240 mg/dL (65-110); Magnesium 1.9 mg/dL (1.6-2.3); Potassium 4.4 mmol/L (3.4-5.0); Sodium 143 mmol/L (137-145)
[2023-01-30] MEDS: SODIUM CHLORIDE 0.9% IV 1,000 ML 999 ML IV CONT (21:44)
--- NOTE | 2023-01-30 21:50 | PC.NURSE ---
pt. to CT
[2023-01-30 21:54] LABS: Troponin I 0.014 ng/mL (0.000-0.034)
[2023-01-30 22:24] LABS: Barbiturate Screen Urine Positive (Negative); Benzodiazepines Screen Urine Negative (Negative)
[2023-01-30 22:25] LABS: Amphetamine Screen Urine Negative (Negative); Cocaine Screen Urine Negative (Negative); Methadone Screen Urine Negative (Negative); Opiate Screen Urine Negative (Negative)
[2023-01-30 22:30] LABS: Appearance Urine Clear (Clear); Bacteria Urine None Seen /hpf; Bilirubin Urine Negative (Negative); Blood Urine Negative (Negative); Color Urine Yellow (Yellow); Glucose Urine UA 3+ mg/dL (Negative); Ketones Urine Negative (Negative); Leukocyte Esterase Ur Negative LEU/UL (Negative); Nitrate Urine Negative (Negative); Non Pathogenic Casts 0-2; Protein Urine 2+ mg/dL (Negative); RBC Urine 0-2 /hpf (0-2); Specific Grav Ur 1.023 (1.001-1.035); Squamous Epithelial Cell Urine None seen /hpf (Few); Urobilinogen Urine 0.2 mg/dL (<2.0); WBC Urine 0-5 /hpf; pH Urine 5.5 (5.0-9.0)
[2023-01-30 22:40] LABS: Phencyclidine Screen Urine Negative (Negative)
[2023-01-30 22:42] LABS: Add Urine Microscopic? YES
[2023-01-30 22:54] LABS: Cannabinoid Screen Urine Negative (Negative)
--- NOTE | 2023-01-30 23:22 | ED.GENADULT ---
HPI - General Adult General Chief complaint: Altered Mental Status Stated complaint: Stroke Time Seen by Provider: 01/30/23 20:46 History of Present Illness HPI narrative: Patient 62-year-old gentleman who presents the emergency department with chief complaint of right-sided weakness and numbness. Patient has prior history of a stroke that resulted in left-sided weakness the patient also has history of seizures and takes Keppra for this. The patient was at the nursing facility and was reported to have a seizure and then also was complaining of right-sided paresthesias and right-sided facial droop. The patient reports no missing of any medications. Related Data Home Medications Medication Instructions Recorded Confirmed aspirin 81 mg tablet,delayed 81 mg PO DAILY 03/30/21 01/15/23 release atorvastatin 40 mg tablet 40 mg PO HS 03/30/21 01/15/23 biotin 5,000 mcg disintegrating 5,000 mcg PO DAILY 03/30/21 01/15/23 tablet bisacodyl 10 mg rectal suppository 10 mg RECTAL DAILY PRN Constipation 03/30/21 01/15/23 insulin lispro 100 unit/mL See Rx Instructions .Route .COMPLEX 03/30/21 01/15/23 subcutaneous pen levothyroxine 137 mcg tablet 137 mcg PO QAM 03/30/21 01/15/23 ropinirole 1 mg tablet 1 mg PO HS 03/30/21 01/15/23 tamsulosin 0.4 mg capsule 0.4 mg PO HS 03/30/21 01/15/23 ascorbic acid (vitamin C) 500 mg 500 mg PO BID 01/18/22 01/15/23 capsule duloxetine 60 mg capsule,delayed 60 mg PO DAILY 01/18/22 01/15/23 release magnesium hydroxide 400 mg/5 mL 30 ml PO HS PRN Constipation 01/18/22 01/15/23 oral suspension (Milk of Magnesia) baclofen 5 mg tablet 5 mg PO TID 06/09/22 01/15/23 dulaglutide 0.75 mg/0.5 mL 0.75 mg subcut WEEKLY 06/09/22 01/15/23 subcutaneous pen injector (Trulicity) empagliflozin 25 mg tablet 25 mg PO DAILY 06/09/22 01/15/23 (Jardiance) ferrous gluconate 324 mg (38 mg 324 mg PO DAILY 06/09/22 01/15/23 iron) tablet ipratropium 0.5 mg-albuterol 3 mg 3 ml inhalation Q6H PRN Shortness 06/09/22 01/15/23 (2.5 mg base)/3 mL nebulization Of Breath soln latanoprost 0.005 % eye drops 1 drp EACH EYE HS 06/09/22 01/15/23 multivitamin with minerals (Daily 1 tablet PO DAILY ##0 06/09/22 01/15/23 Multivitamin-Minerals tablet) nystatin 100,000 unit/gram topical 1 applic topical BID PRN Fungal 06/09/22 01/15/23 powder (Nyamyc) rash potassium chloride 10 mEq 10 meq PO DAILY 06/09/22 01/15/23 capsule,extended release sodium phosphates 19 gram-7 118 ml RECTAL DAILY PRN 06/09/22 01/15/23 gram/118 mL enema (Fleet Enema) Constipation amlodipine 2.5 mg tablet 2.5 mg PO DAILY 12/29/22 01/15/23 brimonidine 0.2 % eye drops 1 drp EACH EYE BID 12/29/22 01/15/23 diclofenac sodium 1 % topical gel 1 ea topical Q6H PRN mild pain to 12/29/22 01/15/23 hips/legs levocetirizine 5 mg tablet 5 mg PO HS 12/29/22 01/15/23 primidone 50 mg tablet (Mysoline) 50 mg PO TID 12/29/22 01/15/23 silver chloride 1 ea topical DAILY 12/29/22 01/15/23 omeprazole 20 mg capsule,delayed 20 mg PO DAILY GERD 01/08/23 01/15/23 release insulin lispro 100 unit/mL 3 unit subcut AC 01/15/23 01/15/23 subcutaneous pen Allergies Allergy/AdvReac Type Severity Reaction Status Date / Time No Known Allergies Allergy Unknown Verified 01/30/23 22:37 Review of Systems Review of Systems: A 10 system review of systems was completed on the patient and is negative except for what is stated in the HPI. Nursing and ancillary documentation was reviewed. [facility] Past Medical History Medical History Benign prostatic hyperplasia Chronic anemia CKD (chronic kidney disease) stage 3, GFR 30-59 ml/min Colon cancer screening Combined systolic and diastolic congestive heart failure Coronary artery disease Status post three-vessel bypass and left ventricular aneurysm repair in February 2019 at [facility]. Current use of jail anticoagulation Depression Glaucoma Gout Histo
[2023-01-30 23:57] LABS: Troponin I 0.017 ng/mL (0.000-0.034)
[2023-01-31] VITALS (34 sets, daily range): BP systolic 108–180; BP diastolic 64–95; PULSE 86–110; RESP 12–26; TEMP 36.2–36.9; O2SAT 90–98; BMI 31.5; BMI 31.6
--- NOTE | 2023-01-31 04:31 | PM.IMHP ---
H&P: HPI History of Present Illness Date/Time: 01/31/23 04:31 Chief Complaint: Left-sided weakness Narrative: Bayron Ann is a 62 year old male resident of [facility] with a history of CKD, HTN, DM, CHF, CAD s/p quadruple bypass, prior stroke with left-sided residual resulting in seizures presenting due to concerns of new CVA with worsening left-sided weakness as well as repeat seizure. This is the patient's 3rd admission this month. Patient was recently admitted due to increased seizure frequency. He was discharged on his same dose of Keppra 1000mg BID. Patient presented again about a week ago due to increase seizures. Labs work-up was unrevealing. No signs of illness. Per hospitalist note, patient was twitching and appeared to be having clonic-tonic seizure however patient was talking during the episode. There have been concerns for non-epileptic seizures. Neurology was again consulted at that time and supposedly no further changes to his medications were made. However on review of discharge summary, patient initially was on 1000 twice a day of Keppra and on most recent discharge this was changed to 750 twice a day. Patient says that he has baseline left-sided weakness however yesterday she started having more severe left-sided facial weakness as well as inability to lift his left arm he usually ambulates with a wheelchair and he felt so weak he leaned forward and fell out of his wheelchair. When nursing staff assisted him back to bed patient had seizure episode lasting about 1 minute. On arrival to the ER patient had a code stroke called and imaging of his head was done which did not show any acute lesions. Neurology was consulted from the ER and did not recommend any tPA or anticoagulation due to patient's seizure history. No change in his Keppra was done. I am seeing the patient in the ER and he says that he is almost back to baseline. He is able to move the left side of his face as well as his left arm but he says he still feels a little bit numb. Patient says that his symptoms started after he had complications from his quadruple bypass surgery. He said he coded 2 times in the ICU and when he woke P already sustained a CVA with left-sided weakness at that time. Currently he is only ambulating with a wheelchair as he has an open wound on his left heel for which [facility]. He says he feels very frustrated with this situation because she was supposed to follow-up with the neurologist as recommended from his previous discharge however no appointments were made. He denies any fever, nausea or vomiting. Denies any diarrhea or dysuria. He says he eats regular food and denies any choking episodes. Review of Systems Review of Systems: no fever or weight loss no vision changes, no eye discharge no throat pain, no hoarseness, no lymphadenopathy no chest pain, no palpitations no coughing, no wheezing no abdominal pain, no diarrhea, no nausea, no vomiting no dysuria, no vaginal discharge no leg swelling, no edema no suicidal or homicidal ideation PMFSH Past Medical History Medical History Benign prostatic hyperplasia Chronic anemia CKD (chronic kidney disease) stage 3, GFR 30-59 ml/min Colon cancer screening Combined systolic and diastolic congestive heart failure Coronary artery disease Status post three-vessel bypass and left ventricular aneurysm repair in February 2019 at [facility]. Current use of terminal gauger anticoagulation Depression Glaucoma Gout History of cerebrovascular accident (~01/2019) Post CABG right parietal infarction with clinical left hemiplegia. Hyperlipidemia Hypertension Hypothyroidism Insulin dependent diabetes mellitus Hemoglobin A1c was 7.7% on 04/19/2021. Ischemic cardiomyopathy Most recent calculated EF was 31%. Myocardial infarction (~01/2019) Late presentation [place] found to have severe thre
[2023-01-31 05:46] LABS: Troponin I 0.028 ng/mL (0.000-0.034)
[2023-01-31 08:37] LABS: Glucose Point of Care 195 mg/dl (65-105)
[2023-01-31] MEDS: ENOXAPARIN 40 MG/0.4 ML SYRINGE SUB-Q (09:45)
[2023-01-31] MEDS: levETIRAcetam 500 MG TABLET PO (09:45)
[2023-01-31] MEDS: ASPIRIN 81 MG CHEWABLE TABLET PO (09:45)
--- NOTE | 2023-01-31 10:08 | WPDNEURCNPN ---
Assessment and Plan Assessment and plan (1) Seizure: Code(s): R56.9 - Unspecified convulsions Status: Acute (2) CVA (cerebrovascular accident): Qualifiers: CVA mechanism: unspecified Qualified Code(s): I63.9 - Cerebral infarction, unspecified Code(s): I63.9 - Cerebral infarction, unspecified Status: Chronic Plan Bayron Ann is a 62 year old male with a history of CAD s/p quadruple bypass, CKD, HTN, DM, prior R MCA territory stroke, seizures presenting for evaluation of worsening left sided weakness and seizure. MRI brain negative for acute stroke. Concern for breakthrough seizure, seemingly unprovoked. 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 - Increase Keppra back to 1000mg BID Consult date: 01/31/23 Reason for consult: Worsening left sided weakness HPI: Bayron Ann is a 62 year old male with a history of CAD s/p quadruple bypass, CKD, HTN, DM, prior R MCA territory stroke, seizures presenting for evaluation of left sided weakness and seizure. Patient has already been admitted several times this month due to concerns regarding increase in seizures. However, there have been concerns for non-epileptic episodes as patient had an episode of generalized movements but patient was talking during the episode. He was discharged on Keppra 750mg BID (although he was receiving 1000mg BID while he was admitted). At baseline patient has left sided weakness from the prior stroke. However, he presented yesterday after noting left facial droop and worsening of left upper extremity weakness. Per nursing staff at his [facility], he had a one minute long seizure. On arrival to ED, patient had a CT head which did not show any acute findings. MRI brain shows old R MCA territory infarct but no new findings. CTA brain/carotid showed 16% stenosis of the proximal R ICA and 28% stenosis of the L ICA. His labs including WBC, UA, and UDS were unremarkable. UDS was positive for barbiturates but patient is on primidone. Patient still feels weaker on the left side compared to his baseline. He denies any other complaints. Review of Systems Constitutional: Constitutional: Reports weakness Eyes: Eyes: Reports no additional eye complaints ENT: Reports system reviewed and no additional complaints, except as documented Cardiovascular: Cardiovascular: Reports no additional cardiovascular complaints Respiratory: Respiratory: Reports no additional respiratory complaints Gastrointestinal: Gastrointestinal: Reports no additional gastrointestinal complaints Genitourinary: Genitourinary: Reports no additional male genitourinary complaints Musculoskeletal: Musculoskeletal: Reports no additional musculoskeletal complaints Integumentary/Breasts: Skin/Breast: Reports system reviewed and no additional complaints, except as docu Neurologic: Reports as per HPI Psychiatric: Psychiatric: Reports no additional psychiatric complaints [facility] Past Medical History Medical History Benign prostatic hyperplasia Chronic anemia CKD (chronic kidney disease) stage 3, GFR 30-59 ml/min Colon cancer screening Combined systolic and diastolic congestive heart failure Coronary artery disease Status post three-vessel bypass and left ventricular aneurysm repair in February 2019 at [facility]. Current use of [facility] anticoagulation Depression Glaucoma Gout History of cerebrovascular accident (~01/2019) Post CABG right parietal infarction with clinical left hemiplegia. Hyperlipidemia Hypertension Hypothyroidism Insulin dependent diabetes mellitus Hemoglobin A1c was 7.7% on 04/19/2021. Ischemic cardiomyopathy Most recent calculated EF was 31%. Myocardial infarction (~01/2019) Late presentation PR found to have severe three-vessel disease, transferred to [facility] for emergent bypass with perioperative ventricular fibrillation arrest. Seizure disorder
[2023-01-31 12:23] LABS: Glucose Point of Care 240 mg/dl (65-105)
--- NOTE | 2023-01-31 12:53 | P.PNCROSS_ITS ---
Event Note Event Note Event Note: Bayron Ann is a 62 year old male with a history of CAD s/p quadruple byp ass, CKD, HTN, DM, prior R MCA territory stroke, seizures presenting for evaluation of worsening left sided weakness and seizure. MRI brain negative for acute stroke. Concern for breakthrough seizure, seemingly unprovoked. 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 Neurology consulted. - Increase Keppra back to 1000mg BID
[2023-01-31] MEDS: INSULIN ASPART (*BKC) 100 UNITS/ML SUB-Q ×2 (13:20→17:14)
[2023-01-31] MEDS: PREGABALIN (*CRX) 75 MG CAPSULE 150 MG PO ×2 (13:20→17:13)
[2023-01-31] MEDS: amLODIPine BESYLATE 5 MG TABLET 10 MG PO (14:13)
[2023-01-31 16:57] LABS: Glucose Point of Care 272 mg/dl (65-105)
[2023-01-31] MEDS: SILVERGEL (ELTA) 45 ML 1 APPLIC TOPICAL (17:14)
[2023-01-31] MEDS: levETIRAcetam 500 MG TABLET 1000 MG PO (20:04)
[2023-01-31 20:58] LABS: Glucose Point of Care 200 mg/dl (65-105)
[2023-02-01] VITALS: BP 90/70; PULSE 115; PULSE 119; RESP 16; RESP 20; TEMP 37.2; O2SAT 96; O2SAT 98
[2023-02-01] MEDS: BACLOFEN 5 MG TABLET PO ×2 (00:36→08:38)
[2023-02-01 02:00] VITALS: PULSE 110
[2023-02-01 04:00] VITALS: BP 128/62; PULSE 101; PULSE 102; RESP 18; RESP 20; TEMP 36.1; O2SAT 90; O2SAT 98
[2023-02-01 06:00] VITALS: PULSE 93
[2023-02-01 07:51] LABS: Glucose Point of Care 183 mg/dl (65-105)
[2023-02-01 07:54] VITALS: BP 121/63; PULSE 86; RESP 14; TEMP 37.1; O2SAT 92
[2023-02-01 08:00] VITALS: PULSE 93
[2023-02-01] MEDS: PREGABALIN (*CRX) 75 MG CAPSULE 150 MG PO (08:37)
[2023-02-01] MEDS: levETIRAcetam 500 MG TABLET 1000 MG PO (08:37)
[2023-02-01] MEDS: amLODIPine BESYLATE 5 MG TABLET 10 MG PO (08:38)
[2023-02-01] MEDS: DULoxetine HCL 60 MG CAPSULE.DR PO (08:38)
[2023-02-01] MEDS: ASPIRIN 81 MG CHEWABLE TABLET PO (08:39)
[2023-02-01] MEDS: SILVERGEL (ELTA) 45 ML 1 APPLIC TOPICAL (08:39)
[2023-02-01] MEDS: ENOXAPARIN 40 MG/0.4 ML SYRINGE SUB-Q (08:39)
--- NOTE | 2023-02-01 10:47 | PM.DS ---
DS: Admitting Diagnosis Discharge Date 02/01/23 Admitting Diagnosis Left-sided weakness DS: Discharge Diagnosis Discharge Diagnosis (1) Seizure: Code(s): R56.9 - Unspecified convulsions Status: Acute (2) Type 2 diabetes mellitus with hyperglycemia: Qualifiers: Diabetes mellitus [facility] insulin use: with moth exterminator use Qualified Code(s): E11.65 - Type 2 diabetes mellitus with hyperglycemia; Z79.4 - moth exterminator (current) use of insulin Code(s): E11.65 - Type 2 diabetes mellitus with hyperglycemia Status: Acute (3) Nighf-fm-qctqsel kidney injury: Code(s): N17.9 - Acute kidney failure, unspecified; N18.9 - Chronic kidney disease, unspecified Status: Acute DS: Summary Hospital Course Hospital Course: Bayron Ann is a 62 year old male with a history of CAD s/p quadruple bypass, CKD, HTN, DM, prior R MCA territory stroke, seizures presenting for evaluation of worsening left sided weakness and seizure. MRI brain negative for acute stroke. Concern for breakthrough seizure, seemingly unprovoked. 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 Neurology consulted. Increased Keppra back to 1000mg BID. Patient is less some residual left-sided weakness but otherwise stable. He has been discharged back to longterm facility Time Spent with Patient Time attestation: Total time spent providing and/or coordinating discharge services: Exam Const: General: comfortable and no acute distress HENMT: Mouth: Yes moist mucous membranes Eyes: Pupils: Equal, round and reactive pupils present EOM: EOMs intact bilaterally Resp: Effort & Inspection: normal respiratory effort Auscultation: clear to auscultation bilaterally Cardio: Rate: regular rate GI: GI Palp: Yes Soft to palpation Skin: General skin exam: normal color Neuro: Other: Pupils equal and reactive bilaterally, EOMI, left facial droop. Strength is 5/5 in RUE, 2/5 in LUE, 5/5 in RLE, and 2/5 in LLE. Language comprehension and fluency intact. Gait deferred. Extrem: General: normal to inspection Psych: Mental Status: mental status grossly normal Affect: normal affect DS: Data Data Completed and Pending Labs on day of discharge: Labs from last 24 hours 02/01/23 01/31/23 01/31/23 07:46 20:55 16:54 POC Capillary Glucose 183 H 200 H 272 H 01/31/23 11:45 POC Capillary Glucose 240 H Discharge Plan Discharge Consulting providers: Cynthia Camilo Discharging Clinician: Vicente Ribera Anticipated Discharge Date/Time: 02/01/23 10:44 Patient Disposition: SNF Activity: may shower Diet: heart healthy Stand Alone Forms: General Discharge Information Follow-up/Referrals: Ike Rodríguez MD [Primary Care Provider] - Cynthia Camilo MD [Physician] - Discharge Medications: Continued atorvastatin 40 mg tablet 40 mg PO HS levothyroxine 137 mcg tablet 137 mcg PO QAM ropinirole 1 mg tablet 1 mg PO HS aspirin 81 mg Tablet,Delayed Release (Dr/Ec) 81 mg PO DAILY bisacodyl 10 mg Suppository 10 mg RECTAL DAILY PRN (Reason: Constipation) Rx Instructions: IF NO RESULTS FROM MOM insulin lispro 100 unit/mL Insulin Pen See Rx Instructions .ROUTE .COMPLEX Rx Instructions: bs 151-200 =3U, 201-250 =6 U, 251-300= 9 U, 301-350= 12U, 351-400= 15U biotin 5,000 mcg Tablet,Disintegrating 5,000 mcg PO DAILY tamsulosin 0.4 mg capsule 0.4 mg PO HS magnesium oxide 400 mg (241.3 mg magnesium) Tablet 400 mg PO DAILY 7 Days Qty: 7 0RF omeprazole 20 mg capsule,delayed release(DR/EC) 20 mg PO DAILY insulin glargine-yfgn 100 unit/mL solution 45 unit SUBCUT HS Qty: 1 0RF insulin lispro 100 unit/mL Insulin Pen 3 unit SUBCUT AC lisinopril 2.5 mg Tablet 2.5 mg PO QAM Qty: 60 0RF duloxetine 60 mg capsule,delayed release(DR/EC) 60 mg PO DAILY magnesium hydroxide [Milk of Magnesia] 400 m
[2023-02-01 12:17] LABS: EDCOVIDSCREEN Negative (Negative)
[2023-02-01 12:26] LABS: Glucose Point of Care 252 mg/dl (65-105)
[2023-02-01] MEDS: INSULIN ASPART (*BKC) 100 UNITS/ML SUB-Q (12:36)
[2023-02-04 11:36] LABS: Levetiracetam Keppra 11.5 mcg/mL (6.0-46.0)
== END 2023-02-01 13:31 ==
LOC: ANHED 23:30 → ANHIMU 01-31 04:39
PROVIDERS: Admitting Provider Internal Medicine; Emergency Provider Emergency Medicine; PCP Family Medicine; Visit Provider Hospitalist
DX: R56.9 Unspecified convulsions (principal); E11.65 Type 2 diabetes mellitus with hyperglycemia; N17.9 Acute kidney failure, unspecified; Z20.822 Contact with and (suspected) exposure to COVID-19; I69.354 Hemiplegia and hemiparesis following cerebral infarction affecting left non-dominant side; N40.0 Benign prostatic hyperplasia without lower urinary tract symptoms; D64.9 Anemia, unspecified; I13.0 Hypertensive heart and chronic kidney disease with heart failure and stage 1 through stage 4 chronic kidney disease, or unspecified chronic kidney disease; E11.22 Type 2 diabetes mellitus with diabetic chronic kidney disease; N18.30 Chronic kidney disease, stage 3 unspecified; I50.40 Unspecified combined systolic (congestive) and diastolic (congestive) heart failure; I25.10 Atherosclerotic heart disease of native coronary artery without angina pectoris; Z95.1 Presence of aortocoronary bypass graft; F32.A Depression, unspecified; H40.9 Unspecified glaucoma; M10.9 Gout, unspecified; E78.5 Hyperlipidemia, unspecified; E03.9 Hypothyroidism, unspecified; I25.5 Ischemic cardiomyopathy; I25.2 Old myocardial infarction; Z79.82 Long term (current) use of aspirin; Z79.4 Long term (current) use of insulin; Z79.85 Long-term (current) use of injectable non-insulin antidiabetic drugs; Z79.51 Long term (current) use of inhaled steroids; Z79.899 Other long term (current) drug therapy; Z82.49 Family history of ischemic heart disease and other diseases of the circulatory system
CPT/HCPCS: 36415; 70450; 70496; 70498; 70553; 71045; 80053; 80177; 80307; 81001; 82948; 83605; 83735; 84484; 85025; 85610; 85730; 87426; 93005; 96360; 96372; 99285; A9270; A9577; C9803; G0378; G0379; J1650; J1815; J7030; Q9967

== ENCOUNTER → 2023-02-04 | Emergency (ER) | payer MEDICAID, SELFPAY ==
[2023-02-04] VITALS (10 sets, daily range): BP systolic 134–170; BP diastolic 83–98; PULSE 89–109; RESP 14–22; TEMP 36.6; O2SAT 88–96
--- NOTE | ~2023-02-04 | CT_ITS ---
EXAMINATION: CT brain wo con DATE: 02/04/2023 18:48 INDICATION: seizure . TECHNIQUE: Computed tomography (CT) of the head was performed without intravenous contrast. The mA wa s adjusted according to patient size. Iterative reconstruction technique was employed. The dose-lengt h product was 681.00 mGy-cm. COMPARISON: 01/30/2023. FINDINGS: No acute intracranial hemorrhage or extra-axial fluid collection. No hydrocephalus, mass, or herniation. No acute ischemic infarct. Unremarkable dural venous sinus attenuation. No acute osseous abnormality. Minimal left inferior maxillary sinus mucosal thickening, the remaining aerated spaces are clear. Mild atrophy and chronic white matter change. Atherosclerotic intracranial calcification. Encephaloma lacia and laminar necrosis in the right MCA territory. Ex vacuo dilation of the right lateral ventric le. IMPRESSION: No acute intracranial process. Reviewed, dictated and finalized at location K.
[2023-02-04] MEDS: diazePAM INJ (*CRX) 10 MG/2 ML SYRINGE 5 MG IV PUSH (16:30)
--- NOTE | 2023-02-04 16:40 | ECG_ITS ---
Measurements Intervals [place] Rate: 107 P: 68 MD: 183 QRS: -42 QRSD: 125 T: 108 QT: 355 QTc: 476 Interpretive Statements SINUS TACHYCARDIA MARKED LEFT AXIS DEVIATION [QRS AXIS < -30] INTRAVENTRICULAR CONDUCTION DELAY POSSIBLE SEPTAL MYOCARDIAL INFARCTION , OF INDETERMINATE AGE [30 ms Q WAVE IN V3/V4, OR R < 0.2 mV IN V4] MODERATE T-WAVE ABNORMALITY, CONSIDER LATERAL ISCHEMIA [-0.1+ mV T WAVE IN I/aVL/V5/V6] COMPARED TO ECG 01/30/2023 20:55:53 NO SIGNIFICANT CHANGES Electronically Signed On 02-05-2023 12:06:26 CDT by Maritza Edwards M.D.
[2023-02-04 16:56] LABS: Basophils Absolute Auto 0.1 K/mm3 (0.0-0.1); Basophils Percent Auto 1.1 % (0.2-1.2); Eosinophils Absolute Auto 0.3 K/mm3 (0-0.3); Eosinophils Percent Auto 3.4 % (0-4.4); Hematocrit 40.4 % (42.0-52.0); Hemoglobin 12.9 g/dL (14.0-18.0); Immature Granulocyte Absolute 0.18 K/mm3 (0.00-0.031); Immature Granulocyte Percent A 2.2 % (0-0.5); Lymphocytes Absolute Auto 1.08 K/mm3 (0.9-3.2); Lymphocytes Percent Auto 13.1 % (18.3-44.2); Mean Corpuscular HGB Conc 31.9 g/dl (32-36); Mean Corpuscular Hemoglobin 29.6 pg (26-34); Mean Corpuscular Volume 92.7 fl (80-100); Mean Platelet Volume 11.4 fl (7.4-10.4); Monocytes Absolute Auto 0.7 K/mm3 (0.1-0.6); Neutrophils Percent Auto 72.2 % (45.5-73.1); Platelet Count Result 185 k/mm3 (150-375); Red Blood Count 4.36 M/mm3 (4.6-6.20); Red Cell Distribution Width 14.9 % (11.5-14.5); White Blood Count 8.3 K/mm3 (4.5-10.0)
--- NOTE | 2023-02-04 16:59 | ED.SEIZURE ---
HPI - Seizure General Chief Complaint: Seizure Stated Complaint: SEIZURE Source: patient and EMS Mode of arrival: EMS History of Present Illness HPI Narrative: Patient came to the emergency room by ambulance from [facility] with seizure-like activity on the right side of his body. Patient is awake, alert and oriented x4 during the seizure. Patient is able to carry normal conversation while seizing on the right upper and right lower extremity. Patient still me that he had similar symptoms numerous of time, was admitted to [facility] many times for the same problem without any significant conclusion. Patient currently on Keppra. He denies any fever, chills, nausea, vomiting, diarrhea, constipation, chest pain, shortness of breath, headache or new focal neurodeficit. History of CAD, status post quadruple bypass, CKD, hypertension, diabetes, prior right MCA territory stroke and seizure. Related Data Home Medications Medication Instructions Recorded Confirmed aspirin 81 mg tablet,delayed 81 mg PO DAILY 03/30/21 01/31/23 release atorvastatin 40 mg tablet 40 mg PO HS 03/30/21 01/31/23 biotin 5,000 mcg disintegrating 5,000 mcg PO DAILY 03/30/21 01/31/23 tablet bisacodyl 10 mg rectal suppository 10 mg RECTAL DAILY PRN Constipation 03/30/21 01/31/23 insulin lispro 100 unit/mL See Rx Instructions .Route .COMPLEX 03/30/21 01/31/23 subcutaneous pen levothyroxine 137 mcg tablet 137 mcg PO QAM 03/30/21 01/31/23 ropinirole 1 mg tablet 1 mg PO HS 03/30/21 01/31/23 tamsulosin 0.4 mg capsule 0.4 mg PO HS 03/30/21 01/31/23 ascorbic acid (vitamin C) 500 mg 500 mg PO BID 01/18/22 01/31/23 capsule duloxetine 60 mg capsule,delayed 60 mg PO DAILY 01/18/22 01/31/23 release magnesium hydroxide 400 mg/5 mL 30 ml PO HS PRN Constipation 01/18/22 01/31/23 oral suspension (Milk of Magnesia) baclofen 5 mg tablet 5 mg PO TID 06/09/22 01/31/23 dulaglutide 0.75 mg/0.5 mL 0.75 mg subcut WEEKLY 06/09/22 01/31/23 subcutaneous pen injector (Trulicity) empagliflozin 25 mg tablet 25 mg PO DAILY 06/09/22 01/31/23 (Jardiance) ferrous gluconate 324 mg (38 mg 324 mg PO DAILY 06/09/22 01/31/23 iron) tablet ipratropium 0.5 mg-albuterol 3 mg 3 ml inhalation Q6H PRN Shortness 06/09/22 01/31/23 (2.5 mg base)/3 mL nebulization Of Breath soln latanoprost 0.005 % eye drops 1 drp EACH EYE HS 06/09/22 01/31/23 multivitamin with minerals (Daily 1 tablet PO DAILY ##0 06/09/22 01/31/23 Multivitamin-Minerals tablet) nystatin 100,000 unit/gram topical 1 applic topical BID PRN Fungal 06/09/22 01/31/23 powder (Nyamyc) rash potassium chloride 10 mEq 10 meq PO DAILY 06/09/22 01/31/23 capsule,extended release sodium phosphates 19 gram-7 118 ml RECTAL DAILY PRN 06/09/22 01/31/23 gram/118 mL enema (Fleet Enema) Constipation amlodipine 2.5 mg tablet 2.5 mg PO DAILY 12/29/22 01/31/23 brimonidine 0.2 % eye drops 1 drp EACH EYE BID 12/29/22 01/31/23 diclofenac sodium 1 % topical gel 1 ea topical Q6H PRN mild pain to 12/29/22 01/31/23 hips/legs levocetirizine 5 mg tablet 5 mg PO HS 12/29/22 01/31/23 primidone 50 mg tablet (Mysoline) 50 mg PO TID 12/29/22 01/31/23 silver chloride 1 ea topical DAILY 12/29/22 01/31/23 omeprazole 20 mg capsule,delayed 20 mg PO DAILY GERD 01/08/23 01/31/23 release insulin lispro 100 unit/mL 3 unit subcut AC 01/15/23 01/31/23 subcutaneous pen Allergies Allergy/AdvReac Type Severity Reaction Status Date / Time No Known Allergies Allergy Unknown Verified 01/30/23 22:37 Review of Systems Review of Systems: All systems reviewed & are unremarkable except as noted in HPI and below PMFSH Past Medical History Medical History Benign prostatic hyperplasia Chronic anemia CKD (chronic kidney disease) stage 3, GFR 30-59 ml/min Colon cancer screening Combined systolic and diastolic congestive heart failure Coronary artery disease Status post three-vessel bypass a
[2023-02-04 17:04] LABS: Alanine Aminotransferase 18 U/L (6-50); Albumin Level 3.8 g/dL (3.5-5.1); Alkaline Phosphatase 110 U/L (38-126); Anion Gap 7 mmol/L (8-16); Aspartate Amino Transferase 20 U/L (17-59); Bilirubin,Total 0.5 mg/dL (0.2-1.3); Blood Urea Nitrogen 25 mg/dL (9-20); Calcium 8.3 mg/dL (8.4-10.2); Carbon Dioxide 26 mmol/L (22-30); Chloride 107 mmol/L (98-107); Estimated CRCL calculation 78 ml/min; Estimated Glomerular Filt Rate > 60; Glucose 222 mg/dL (65-110); Potassium 4.1 mmol/L (3.4-5.0); Sodium 140 mmol/L (137-145)
--- NOTE | 2023-02-04 19:57 | PC.NURSE ---
Called pt's with updates. Informed her that pt has been accepted at [facility] and he already has a bed. We are currently waiting for EMS and the ETA is 2114. Reassured that pt has not had anymore tremors or shaking. She will be notified when pt leaves department.
--- NOTE | 2023-02-04 22:27 | PM.IMHP ---
H&P: HPI History of Present Illness Date/Time: 02/04/23 22:27 Chief Complaint: Seizure Narrative: This is a 62-year-old male patient who has a history of seizure activity. The patient resides at [facility]. He was noted to have a seizure-like activity on the right side of his body. The patient was recently discharged from this hospital on 01/19/2023. He was also discharged from this hospital on 01/09/2023. Prior to that he was discharged from this hospital on 01/05/2023. Prior to that he was discharged from here on 12/03/2022. The patient has been admitted multiple times for seizure-like activity. The patient has been seen and evaluated by Neurology during his previous admissions to this hospital. During his last admission his Keppra was increased to 1000 mg b.i.d.. Patient has some left-sided residual from a previous CVA. I assessed the patient in the emergency room and he was awake and talking. The patient stated that he does not care to be staying at [facility] and would like to find somewhere else to stay. However he is having difficulty finding somewhere else to go. The patient denies any nausea vomiting diarrhea or fever. The ER physician spoke with the travel accommodations rater and it was noted that the patient could go back to residential. It was noted that the patient had an extensive workup and believes that the patient may need long-term monitoring at [facility]. It was felt that the patient would be unsafe if they return back to the residential. As per ER note DR RAMOS, neurologist at [facility], accepted patient transfer, no bed available at this time. The patient was being admitted to the hospitalist services until the patient could be transferred to [facility]. However the patient had received a bed before he ever left the emergency department. THE PATIENT WAS TRANSFERRED TO [facility] FROM THE EMERGENCY ROOM.. THIS IS A SHORT-STAY SUMMARY. Review of Systems Review of Systems: All systems reviewed & are unremarkable except as noted in HPI and below Constitutional: Constitutional: Reports as per HPI and Reports no additional constitutional complaints Eyes: Eyes: Reports as per HPI and Reports no additional eye complaints ENT: Reports system reviewed and no additional complaints, except as documented and Reports Normal hearing present Cardiovascular: Cardiovascular: Reports no additional cardiovascular complaints Respiratory: Respiratory: Reports no additional respiratory complaints and Reports no additional respiratory complaints Gastrointestinal: Gastrointestinal: Reports as per HPI and Reports no additional gastrointestinal complaints Musculoskeletal: Musculoskeletal: Reports no additional musculoskeletal complaints Integumentary/Breasts: Skin/Breast: Reports system reviewed and no additional complaints, except as docu and Reports as per HPI Neurologic: Reports system reviewed and no additional complaints, except as documented, Reports as per HPI and Reports Normal hearing present Psychiatric: Psychiatric: Reports no additional psychiatric complaints and Reports as per HPI Endocrine: Endocrine: Reports no additional endocrine complaints Hematologic/Lymphatic: Hematologic/Lymphatic: Reports no additional hematologic/lymphatic complaints Allergic/Immunologic: Allergic/Immunologic: Reports no additional allergic/immunologic complaints [facility] Past Medical History Medical History Benign prostatic hyperplasia Chronic anemia CKD (chronic kidney disease) stage 3, GFR 30-59 ml/min Colon cancer screening Combined systolic and diastolic congestive heart failure Coronary artery disease Status post three-vessel bypass and left ventricular aneurysm repair in February 2019 at [facility]. Current use of alf anticoagulation Depression Glaucoma Gout History of cerebrovas
--- NOTE | 2023-02-04 23:21 | PC.NURSE ---
Pt pulled up in bed and turned onto his left side. Lights turned out per pt request.
--- NOTE | 2023-02-04 23:43 | PC.NURSE ---
Receiving RN Colette at [facility] notified EMS is here to picking tech pt at this time. Updates given. No questions.
== END | disposition short-term general hospital (02) ==
PROVIDERS: Emergency Provider Emergency Medicine; PCP Family Medicine
DX: G40.909 Epilepsy, unspecified, not intractable, without status epilepticus (principal); F32.A Depression, unspecified; I13.0 Hypertensive heart and chronic kidney disease with heart failure and stage 1 through stage 4 chronic kidney disease, or unspecified chronic kidney disease; E11.22 Type 2 diabetes mellitus with diabetic chronic kidney disease; N18.30 Chronic kidney disease, stage 3 unspecified; I50.40 Unspecified combined systolic (congestive) and diastolic (congestive) heart failure; I25.10 Atherosclerotic heart disease of native coronary artery without angina pectoris; Z86.73 Personal history of transient ischemic attack (TIA), and cerebral infarction without residual deficits; E78.5 Hyperlipidemia, unspecified; E03.9 Hypothyroidism, unspecified; Z87.891 Personal history of nicotine dependence
CPT/HCPCS: 36415; 70450; 80053; 85025; 93005; 99285; J3360

== ENCOUNTER 2023-03-06 11:50 | Outpatient (RCR) | payer MEDICAID, SELFPAY ==
[2023-01-30 00:04] VITALS: BMI 30.4
--- NOTE | 2023-03-06 16:05 | P.PNWOUND_ITS ---
Wound Care Note Date/Time: 03/06/23 16:05 History: 62 yo man with left heel decubitus ulcer.? Has hx of CVA and is bed and wheel chair bound.? He is doing well with current wound care and denies any changes or concerns.? He is continuing to work with PT to increase mobility and strength. He was recently hospitalized for seizure activity.? He has been continuing with wound care. It appears that Silvadene cream was being applied to the wound instead of Silver gel. 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 Will have wound care nurses explain to SNF that we would prefer Silver gel instead of Silvadene cream. Will have patient follow-up in the office in 6 weeks to reassess. Continue limiting pressure to the heel to prevent any further pres sure injuries. (2) History of CVA (cerebrovascular accident): Code(s): Z86.73 - Personal history of transient ischemic attack (TIA), and cerebral infarction without residual deficits Status: Chronic Review of Systems Review of Systems: All systems reviewed & are unremarkable except as noted in HPI and below Exam Extrem: Other: Left heel wound still open but continuing to heal. Wound is much smaller that last wound assessment.
== END 2023-05-21 08:33 | disposition home or self-care (01) ==
LOC: ANHWOC 11:50
PROVIDERS: PCP Family Medicine; Visit Provider Surgery
DX: E11.621 Type 2 diabetes mellitus with foot ulcer (principal); L89.624 Pressure ulcer of left heel, stage 4
CPT/HCPCS: 99212; G0463

== ENCOUNTER 2023-03-20 16:06 | Emergency (ER) | payer MEDICAID, SELFPAY ==
[2023-03-20] VITALS (15 sets, daily range): BP systolic 115–141; BP diastolic 73–82; PULSE 76–87; RESP 15–22; TEMP 36.3; O2SAT 90–93
--- NOTE | ~2023-03-20 | XR_ITS ---
EXAMINATION: XR chest 1V portable DATE: 03/20/2023 17:23 INDICATION: Seizure TECHNIQUE: frontal view of the chest was obtained. COMPARISON: Chest radiograph dated 01/30/2023 FINDINGS: Slight improvement in hazy opacities in the left lower lung zone with blunting at the left costophren ic angle consistent with small posterior layering left pleural effusion and associated atelectasis an d/or pneumonia. Improvement in prior pulmonary vascular congestion and resolution of prior pulmonary edema. No pneumothorax or right-sided pleural effusion. Cardiomegaly. Median sternotomy wires, ostial markers and mediastinal surgical clips consistent with prior coronary artery bypass grafting. IMPRESSION: 1. Small left pleural effusion with associated left basilar atelectasis and/or pneumonia. 2. Cardiomegaly. Reviewed, dictated and finalized at location A.
--- NOTE | 2023-03-20 17:01 | ECG_ITS ---
Measurements Intervals [place] Rate: 85 P: 65 IN: 175 QRS: -34 QRSD: 130 T: 106 QT: 414 QTc: 493 Interpretive Statements SINUS RHYTHM VENTRICULAR PREMATURE COMPLEX INTRAVENTRICULAR CONDUCTION DELAY CONSIDER EXTENSIVE ANTERIOR INFARCT, AGE INDETERMINATE ST-T WAVE ABNORMALITY IN HIGH LATERAL LEADS- CONSIDER ISCHEMIA ABNORMAL ECG COMPARED TO ECG 02/04/2023 15:59:19 SINUS RHYTHM NOW PRESENT Electronically Signed On 03-20-2023 18:38:27 CDT by Valentín James D.O.
[2023-03-20] MEDS: SODIUM CHLORIDE 0.9% IV 1,000 ML 999 ML IV CONT (17:23)
--- NOTE | 2023-03-20 17:38 | ED.SEIZURE ---
HPI - Seizure General Chief Complaint: Seizure Stated Complaint: altered mental status Time Seen by Provider: 03/20/23 16:24 History of Present Illness HPI Narrative: Patient is a 62-year-old male with a history of stroke with left-sided deficits, seizures, hyperlipidemia, hypertension, CAD, diabetes presenting after a seizure. Patient states that he was in therapy at his nursing facility today when he felt the left side of his face go tight. States that he was then witnessed to have a generalized tonic-clonic seizure. EMS was called and brought him in for evaluation. Patient states that he has been having seizures for the last several months. States that he was at [facility] recently and an EEG was performed. States that there is no seizure activity and his neurologist wants to get him off of Keppra. Currently, the patient states that he feels tired. Denies headache, new focal weakness or numbness, chest pain, shortness of breath, cough, abdominal pain, nausea or vomiting. Related Data Home Medications Medication Instructions Recorded Confirmed aspirin 81 mg tablet,delayed 81 mg PO DAILY heart disease 03/30/21 03/06/23 release atorvastatin 40 mg tablet 40 mg PO HS high cholesterol 03/30/21 03/06/23 biotin 5,000 mcg disintegrating 5,000 mcg PO DAILY supplement 03/30/21 03/06/23 tablet bisacodyl 10 mg rectal suppository 10 mg RECTAL DAILY PRN Constipation 03/30/21 03/06/23 insulin lispro 100 unit/mL See Rx Instructions .Route .COMPLEX 03/30/21 03/06/23 subcutaneous pen levothyroxine 137 mcg tablet 137 mcg PO QAM hypothyroidism 03/30/21 03/06/23 tamsulosin 0.4 mg capsule 0.8 mg PO HS benign prostatic 03/30/21 03/06/23 hyperplasia ascorbic acid (vitamin C) 500 mg 500 mg PO BID wound healing 01/18/22 03/06/23 capsule duloxetine 60 mg capsule,delayed 60 mg PO DAILY depression 01/18/22 03/06/23 release baclofen 5 mg tablet 5 mg PO TID pain 06/09/22 03/06/23 dulaglutide 0.75 mg/0.5 mL 0.75 mg subcut WEEKLY 06/09/22 03/06/23 subcutaneous pen injector ([facility]) empagliflozin 25 mg tablet 25 mg PO DAILY type 2 diabetes 06/09/22 03/06/23 (Jardiance) ferrous gluconate 324 mg (38 mg 324 mg PO DAILY supplementation 06/09/22 03/06/23 iron) tablet ipratropium 0.5 mg-albuterol 3 mg 3 ml inhalation Q6H PRN Shortness 06/09/22 03/06/23 (2.5 mg base)/3 mL nebulization Of Breath soln latanoprost 0.005 % eye drops 1 drp EACH EYE HS glaucoma 06/09/22 03/06/23 multivitamin with minerals (Daily 1 tablet PO DAILY wound healing ##0 06/09/22 03/06/23 Multivitamin-Minerals tablet) potassium chloride 10 mEq 10 meq PO DAILY hypokalemia 06/09/22 03/06/23 capsule,extended release sodium phosphates 19 gram-7 118 ml RECTAL DAILY PRN 06/09/22 03/06/23 gram/118 mL enema (Fleet Enema) Constipation amlodipine 2.5 mg tablet 2.5 mg PO DAILY Hypertension 12/29/22 03/06/23 brimonidine 0.2 % eye drops 1 drp EACH EYE BID glaucoma 12/29/22 03/06/23 diclofenac sodium 1 % topical gel 1 ea topical Q6H PRN mild pain to 12/29/22 03/06/23 hips/legs levocetirizine 5 mg tablet 2.5 mg PO HS allergic rhinitis 12/29/22 03/06/23 Nystatin Powder 1 applic topical DIRECTED PRN 03/06/23 03/06/23 Rash acetaminophen 500 mg tablet 1,000 mg PO Q8H PRN Pain (Scale 03/06/23 03/06/23 (Acetaminophen Extra Strength) Score 4-6) allopurinol 300 mg tablet 300 mg PO DAILY gout 03/06/23 03/06/23 apixaban 5 mg tablet (Eliquis) 5 mg PO BID anticoagulant 03/06/23 03/06/23 arginine-vitamin C-vitamin E oral 1 g PO DAILY wound healing 03/06/23 03/06/23 4.5 gram-156 mg/9.2 gram powder pkt (Arginaid) azelastine 137 mcg (0.1 %) nasal 1 spray intranasal Q12H allergic 03/06/23 03/06/23 spray aerosol rhinitis carvedilol 3.125 mg tablet 3.125 mg PO DAILY hypertension 03/06/23 03/06/23 cholecalciferol (vitamin D3) 25 25 mcg PO DAILY supplement 03/06/23 03/06/23 mcg (1,000 unit) tablet finasteride 5 mg tablet 5 mg PO HS BPH 03/06/23 03/06/23 furosemide 40 mg tablet 40 mg PO
[2023-03-20 17:43] LABS: Add Urine Microscopic? YES; Appearance Urine Clear (Clear); Bacteria Urine None Seen /hpf; Bilirubin Urine Negative (Negative); Blood Urine Negative (Negative); Color Urine Yellow (Yellow); Glucose Urine UA 3+ mg/dL (Negative); Ketones Urine Negative (Negative); Leukocyte Esterase Ur Negative LEU/UL (Negative); Nitrate Urine Negative (Negative); Non Pathogenic Casts 0-2; Protein Urine 2+ mg/dL (Negative); RBC Urine 0-2 /hpf (0-2); Specific Grav Ur 1.013 (1.001-1.035); Squamous Epithelial Cell Urine None seen /hpf (Few); Urobilinogen Urine 0.2 mg/dL (<2.0); WBC Urine 0-5 /hpf; pH Urine 5.5 (5.0-9.0)
[2023-03-20 17:44] LABS: Basophils Absolute Auto 0.1 K/mm3 (0.0-0.1); Basophils Percent Auto 0.7 % (0.2-1.2); Eosinophils Absolute Auto 0.2 K/mm3 (0-0.3); Eosinophils Percent Auto 3.2 % (0-4.4); Hemoglobin 13.4 g/dL (14.0-18.0); Immature Granulocyte Absolute 0.09 K/mm3 (0.00-0.031); Immature Granulocyte Percent A 1.2 % (0-0.5); Lymphocytes Absolute Auto 1.09 K/mm3 (0.9-3.2); Lymphocytes Percent Auto 14.4 % (18.3-44.2); Mean Corpuscular HGB Conc 31.9 g/dl (32-36); Mean Corpuscular Hemoglobin 29.9 pg (26-34); Mean Corpuscular Volume 93.8 fl (80-100); Mean Platelet Volume 10.9 fl (7.4-10.4); Monocytes Absolute Auto 0.8 K/mm3 (0.1-0.6); Monocytes Percent Auto 10.5 % (2.6-8.5); Neutrophils Absolute Auto 5.3 K/mm3 (1.3-6.7); Platelet Count Result 151 k/mm3 (150-375); Red Blood Count 4.48 M/mm3 (4.6-6.20); Red Cell Distribution Width 16.1 % (11.5-14.5); White Blood Count 7.6 K/mm3 (4.5-10.0)
[2023-03-20 17:53] LABS: Alanine Aminotransferase 19 U/L (6-50); Albumin Level 4.1 g/dL (3.5-5.1); Alkaline Phosphatase 99 U/L (38-126); Anion Gap 10 mmol/L (8-16); Aspartate Amino Transferase 21 U/L (17-59); Bilirubin,Total 0.5 mg/dL (0.2-1.3); Blood Urea Nitrogen 25 mg/dL (9-20); Calcium 8.2 mg/dL (8.4-10.2); Carbon Dioxide 24 mmol/L (22-30); Chloride 108 mmol/L (98-107); Estimated CRCL calculation 75 ml/min; Estimated Glomerular Filt Rate > 60; Glucose 131 mg/dL (65-110); Potassium 4.2 mmol/L (3.4-5.0); Sodium 142 mmol/L (137-145)
[2023-03-20] MEDS: ACETAMINOPHEN 500 MG TABLET 1000 MG PO (18:32)
== END 2023-03-20 20:34 ==
PROVIDERS: Emergency Provider Emergency Medicine; PCP Family Medicine
DX: G40.909 Epilepsy, unspecified, not intractable, without status epilepticus (principal); I13.0 Hypertensive heart and chronic kidney disease with heart failure and stage 1 through stage 4 chronic kidney disease, or unspecified chronic kidney disease; E11.22 Type 2 diabetes mellitus with diabetic chronic kidney disease; N18.30 Chronic kidney disease, stage 3 unspecified; I50.40 Unspecified combined systolic (congestive) and diastolic (congestive) heart failure; I69.954 Hemiplegia and hemiparesis following unspecified cerebrovascular disease affecting left non-dominant side; I25.10 Atherosclerotic heart disease of native coronary artery without angina pectoris; N40.0 Benign prostatic hyperplasia without lower urinary tract symptoms; E11.39 Type 2 diabetes mellitus with other diabetic ophthalmic complication; H42 Glaucoma in diseases classified elsewhere; M10.9 Gout, unspecified; E78.5 Hyperlipidemia, unspecified; I25.5 Ischemic cardiomyopathy; I25.2 Old myocardial infarction; Z95.1 Presence of aortocoronary bypass graft; Z98.1 Arthrodesis status; Z87.891 Personal history of nicotine dependence; Z79.01 Long term (current) use of anticoagulants; Z79.4 Long term (current) use of insulin; Z79.82 Long term (current) use of aspirin; I49.3 Ventricular premature depolarization; I45.9 Conduction disorder, unspecified; R94.31 Abnormal electrocardiogram [ECG] [EKG]
CPT/HCPCS: 36415; 71045; 80053; 81001; 85025; 93005; 96360; 96361; 99283; A9270; J7030

== ENCOUNTER 2023-04-17 02:20 | Inpatient (IN) | payer MEDICARE, MEDICAID, SELFPAY ==
[2023-04-17] VITALS (13 sets, daily range): BP systolic 130–149; BP diastolic 78–100; PULSE 84–95; RESP 12–21; TEMP 35.6–36.3; O2SAT 90–96; BMI 33.7
--- NOTE | 2023-04-17 | ECHO_ITS ---
Patient Info Name: Bayron Ann Age: 62 years : 1960 Gender: Male Ht: 75 in Wt: 270 lbs BSA: 2.58 m2 HR: 86 bpm BP: 149 / 92 mmHg Heart Rhythm: Sinus Rhythm Technical Quality: Fair Exam Date: 04/17/2023 9:39 AM Exam Location: [facility] Patient Status: Inpatient Admit Date: 04/17/2023 Staff Ordering Physician: Vicente Ribera MD Other Sales Support Worker: Raina Hooks RDCS Attending Provider: Vicente Ribera MD Referring Physician: Mounika CRABTREE; Exam Type: CA echo limited w contrast Study Info Indications R06.02 - Shortness of breath Limited two-dimensional transthoracic echocardiogram is performed with contrast. Contrast/Agitated Saline Contrast/Ag. Saline: Definity Amount: 2.00 ml Administered By: Raina Hooks RDCS Existing IV Access: Yes IV Access Condition: patent with no signs of infiltration Summary 1. Left ventricular chamber dimension is mildly enlarged. 2. Left ventricular systolic function is severely reduced, estimated at 25-30%. 3. There is akinesis of the anteroseptum, apex, mid to apical anterior wall. 4. Right ventricular chamber dimension is normal. 5. Right ventricular systolic function is normal. 6. Left atrial chamber dimension is moderately enlarged. 7. Right atrial chamber dimension is moderately enlarged. 8. There is mild mitral valve regurgitation. 9. There is mild tricuspid valve regurgitation. Left Ventricle There is akinesis of the anteroseptum, apex, mid to apical anterior wall. Left ventricular chamber dimension is mildly enlarged. Left ventricular systolic function is severely reduced, estimated at 25-30%. Right Ventricle Right ventricular chamber dimension is normal. Right ventricular systolic function is normal. Left Atria Left atrial chamber dimension is moderately enlarged. Right Atria Right atrial chamber dimension is moderately enlarged. Atrial Septum Intact interatrial septum visualized by color flow imaging. Aortic Valve There is no aortic valve regurgitation. There is moderate aortic valve calcification. Pulmonic Valve The pulmonic valve is not well visualized. Mitral Valve There is mild mitral valve regurgitation. The mitral valve annulus is mildly calcified. Tricuspid Valve There is mild tricuspid valve regurgitation. Pericardium/Pleural There is no pericardial effusion. Inferior Vena Cava Normal inferior vena cava with <50% collapse upon inspiration consistent with elevated right atrial pressure, 8 mmHg. Aorta The aortic root size at the sinus of Valsalva is normal. Tricuspid Valve Name Value Normal Estimated PAP/RSVP RA Pressure 8 mmHg <=5 Ventricles Name Value Normal LV Fractional Shortening/Ejection Fraction 2D/MM LV Diastolic Volume (4C MOD) 112 ml LV EF (4C MOD) 25 % LV Diastolic Volume (2C MOD) 107 ml LV EF (2C MOD) 39 % LV Diastolic Volume (BP MOD) 110 ml
--- NOTE | ~2023-04-17 | XR_ITS ---
EXAMINATION: XR chest 1V portable INDICATION: Shortness of breath TECHNIQUE: Portable AP chest at 0255 hours COMPARISON: 03/20/2023 FINDINGS: Cardiomegaly is noted. There is a small left pleural effusion. There is a mild diffuse inte rstitial pattern. No pneumothorax is identified. Median sternotomy wires and mediastinal surgical cli ps are seen, likely from prior coronary artery bypass grafting. IMPRESSION: 1. Cardiomegaly with mild pulmonary edema. 2. Small left pleural effusion Reviewed, dictated and finalized at location A.
--- NOTE | ~2023-04-17 | XR_ITS ---
EXAMINATION: XR chest 1V portable DATE: 04/19/2023 09:20 INDICATION: Congestive heart failure. TECHNIQUE: A single frontal view of the chest was obtained. COMPARISON: Chest single view 04/17/2023, chest CT 06/07/2022 FINDINGS: There is a small left pleural effusion. There are airspace opacities at left lung base. No pneumothorax. Cardiomegaly is noted. Median sternotomy wires and mediastinal surgical clips are seen, likely from prior coronary artery bypass grafting. IMPRESSION: 1. Stable chronic small left pleural effusion. 2. Stable chronic airspace opacities at left lung base, consistent with rounded atelectasis. 3. Cardiomegaly. Reviewed, dictated and finalized at location A.
--- NOTE | 2023-04-17 02:26 | ECG_ITS ---
Measurements Intervals Calvin Rate: 84 P: 69 CT: 173 QRS: -30 QRSD: 134 T: 109 QT: 417 QTc: 493 Interpretive Statements SINUS RHYTHM WITH OCCASIONAL VENTRICULAR PREMATURE COMPLEXES INTRAVENTRICULAR CONDUCTION DELAY [130+ ms QRS DURATION] POSSIBLE ANTERIOR MYOCARDIAL INFARCTION , OF INDETERMINATE AGE [30 ms Q WAVE IN V3/V4, OR R < 0.2 mV IN V4] COMPARED TO ECG 03/20/2023 17:21:01 NO SIGNIFICANT CHANGES Electronically Signed On 04-17-2023 14:51:37 CDT by Maritza Edwards M.D.
[2023-04-17 02:44] LABS: Basophils Absolute Auto 0.1 K/mm3 (0.0-0.1); Basophils Percent Auto 0.8 % (0.2-1.2); Eosinophils Absolute Auto 0.3 K/mm3 (0-0.3); Eosinophils Percent Auto 3.2 % (0-4.4); Hematocrit 44.7 % (42.0-52.0); Hemoglobin 14.1 g/dL (14.0-18.0); Immature Granulocyte Absolute 0.05 K/mm3 (0.00-0.031); Immature Granulocyte Percent A 0.6 % (0-0.5); Immature Platelet Fraction Pct 4.8 % (0.9-11.2); Lymphocytes Absolute Auto 1.12 K/mm3 (0.9-3.2); Lymphocytes Percent Auto 14.5 % (18.3-44.2); Mean Corpuscular HGB Conc 31.5 g/dl (32-36); Mean Corpuscular Hemoglobin 29.1 pg (26-34); Mean Corpuscular Volume 92.4 fl (80-100); Mean Platelet Volume 10.8 fl (7.4-10.4); Monocytes Absolute Auto 0.8 K/mm3 (0.1-0.6); Monocytes Percent Auto 10.5 % (2.6-8.5); Neutrophils Absolute Auto 5.5 K/mm3 (1.3-6.7); Neutrophils Percent Auto 70.4 % (45.5-73.1); Platelet Count Result 139 k/mm3 (150-375); Red Blood Count 4.84 M/mm3 (4.6-6.20); Red Cell Distribution Width 15.6 % (11.5-14.5); White Blood Count 7.7 K/mm3 (4.5-10.0)
[2023-04-17 02:53] LABS: INR 1.3; Prothrombin Time 16.8 Seconds (11.1-14.7)
[2023-04-17 02:54] LABS: Partial Thromboplastin Time 38.3 SECONDS (22.3-36.8)
[2023-04-17 02:55] LABS: Alanine Aminotransferase 18 U/L (6-50); Albumin Level 3.9 g/dL (3.5-5.1); Alkaline Phosphatase 100 U/L (38-126); Anion Gap 7 mmol/L (8-16); Aspartate Amino Transferase 22 U/L (17-59); Bilirubin,Total 0.5 mg/dL (0.2-1.3); Blood Urea Nitrogen 22 mg/dL (9-20); Calcium 8.3 mg/dL (8.4-10.2); Carbon Dioxide 28 mmol/L (22-30); Chloride 107 mmol/L (98-107); Estimated CRCL calculation 79 ml/min; Estimated Glomerular Filt Rate > 60; Glucose 131 mg/dL (65-110); Potassium 3.9 mmol/L (3.4-5.0); Sodium 142 mmol/L (137-145)
[2023-04-17 03:06] LABS: NT Pro B Type Natriuretic Pept 10600 pg/mL (19.9-100); Troponin I < 0.012 ng/mL (0.000-0.034)
[2023-04-17] MEDS: FUROSEMIDE INJ 40 MG/4 ML VIAL IV PUSH (03:14)
--- NOTE | 2023-04-17 03:36 | ED.GENADULT ---
HPI - General Adult General Chief complaint: Shortness of Breath/Dyspnea Stated complaint: SOB Time Seen by Provider: 04/17/23 02:31 History of Present Illness HPI narrative: Patient 62-year-old gentleman who presents the emergency department with chief complaint of shortness of breath. Patient was sent from a local nursing facility after has been having increasing shortness of breath. The patient has prior history of CHF and they noticed that his BNP was running high and normally is not on oxygen but is required to laser his nasal cannula to maintain a saturation in the 90s. Patient was recently started on Lasix at the facility Related Data Home Medications Medication Instructions Recorded Confirmed aspirin 81 mg tablet,delayed 81 mg PO DAILY heart disease 03/30/21 03/06/23 release atorvastatin 40 mg tablet 40 mg PO HS high cholesterol 03/30/21 03/06/23 biotin 5,000 mcg disintegrating 5,000 mcg PO DAILY supplement 03/30/21 03/06/23 tablet bisacodyl 10 mg rectal suppository 10 mg RECTAL DAILY PRN Constipation 03/30/21 03/06/23 insulin lispro 100 unit/mL See Rx Instructions .Route .COMPLEX 03/30/21 03/06/23 subcutaneous pen levothyroxine 137 mcg tablet 137 mcg PO QAM hypothyroidism 03/30/21 03/06/23 tamsulosin 0.4 mg capsule 0.8 mg PO HS benign prostatic 03/30/21 03/06/23 hyperplasia ascorbic acid (vitamin C) 500 mg 500 mg PO BID wound healing 01/18/22 03/06/23 capsule duloxetine 60 mg capsule,delayed 60 mg PO DAILY depression 01/18/22 03/06/23 release baclofen 5 mg tablet 5 mg PO TID pain 06/09/22 03/06/23 dulaglutide 0.75 mg/0.5 mL 0.75 mg subcut WEEKLY 06/09/22 03/06/23 subcutaneous pen injector (Trulicity) empagliflozin 25 mg tablet 25 mg PO DAILY type 2 diabetes 06/09/22 03/06/23 (Jardiance) ferrous gluconate 324 mg (38 mg 324 mg PO DAILY supplementation 06/09/22 03/06/23 iron) tablet ipratropium 0.5 mg-albuterol 3 mg 3 ml inhalation Q6H PRN Shortness 06/09/22 03/06/23 (2.5 mg base)/3 mL nebulization Of Breath soln latanoprost 0.005 % eye drops 1 drp EACH EYE HS glaucoma 06/09/22 03/06/23 multivitamin with minerals (Daily 1 tablet PO DAILY wound healing ##0 06/09/22 03/06/23 Multivitamin-Minerals tablet) potassium chloride 10 mEq 10 meq PO DAILY hypokalemia 06/09/22 03/06/23 capsule,extended release sodium phosphates 19 gram-7 118 ml RECTAL DAILY PRN 06/09/22 03/06/23 gram/118 mL enema (Fleet Enema) Constipation amlodipine 2.5 mg tablet 2.5 mg PO DAILY Hypertension 12/29/22 03/06/23 brimonidine 0.2 % eye drops 1 drp EACH EYE BID glaucoma 12/29/22 03/06/23 diclofenac sodium 1 % topical gel 1 ea topical Q6H PRN mild pain to 12/29/22 03/06/23 hips/legs levocetirizine 5 mg tablet 2.5 mg PO HS allergic rhinitis 12/29/22 03/06/23 Nystatin Powder 1 applic topical DIRECTED PRN 03/06/23 03/06/23 Rash acetaminophen 500 mg tablet 1,000 mg PO Q8H PRN Pain (Scale 03/06/23 03/06/23 (Acetaminophen Extra Strength) Score 4-6) allopurinol 300 mg tablet 300 mg PO DAILY gout 03/06/23 03/06/23 apixaban 5 mg tablet (Eliquis) 5 mg PO BID anticoagulant 03/06/23 03/06/23 arginine-vitamin C-vitamin E oral 1 g PO DAILY wound healing 03/06/23 03/06/23 4.5 gram-156 mg/9.2 gram powder pkt (Arginaid) azelastine 137 mcg (0.1 %) nasal 1 spray intranasal Q12H allergic 03/06/23 03/06/23 spray aerosol rhinitis carvedilol 3.125 mg tablet 3.125 mg PO DAILY hypertension 03/06/23 03/06/23 cholecalciferol (vitamin D3) 25 25 mcg PO DAILY supplement 03/06/23 03/06/23 mcg (1,000 unit) tablet finasteride 5 mg tablet 5 mg PO HS BPH 03/06/23 03/06/23 furosemide 40 mg tablet 40 mg PO DAILY HTN 03/06/23 03/06/23 insulin glargine-yfgn 100 unit/mL 55 unit subcut HS 03/06/23 03/06/23 subcutaneous solution lisinopril 2.5 mg tablet 2.5 mg PO QAM HTN 03/06/23 03/06/23 magnesium hydroxide 400 mg/5 mL 30 ml PO HS PRN Constipation 03/06/23 03/06/23 oral suspension (Milk of Magnesia) magnesium oxide 400 mg (241.3 mg 400 mg PO LEONARDO
[2023-04-17 06:55] LABS: Troponin I < 0.012 ng/mL (0.000-0.034)
[2023-04-17 08:15] LABS: Glucose Point of Care 102 mg/dl (65-105)
[2023-04-17] MEDS: levETIRAcetam 250 MG TABLET 750 MG PO ×2 (10:00→20:25)
[2023-04-17] MEDS: ASPIRIN 81 MG ENTERIC TABLET PO (10:00)
[2023-04-17] MEDS: PERFLUTREN LIPID MICROSPHERES 1.5 ML VIAL DILUTED TO 10 ML TOTAL VOLUME IV PUSH (10:00)
[2023-04-17] MEDS: FUROSEMIDE INJ 100 MG/10 ML VIAL 60 MG IV PUSH ×2 (10:01→20:25)
[2023-04-17] MEDS: LEVOTHYROXINE SODIUM 112 MCG, LEVOTHYROXINE SODIUM 25 MCG 137 MCG PO (10:01)
[2023-04-17] MEDS: lisinopriL 5 MG TABLET PO (10:01)
[2023-04-17] MEDS: POTASSIUM CHLORIDE 10 MEQ ER TABLET PO (10:01)
[2023-04-17] MEDS: PREGABALIN (*CRX) 75 MG CAPSULE PO ×2 (10:03→17:08)
--- NOTE | 2023-04-17 10:27 | PM.IMHP ---
H&P: HPI History of Present Illness Date/Time: 04/17/23 10:27 Chief Complaint: Shortness of Narrative: 62-year-old male with a past medical history of congestive heart failure who presented to the ER from longterm with complaints of acute onset of shortness of breath. Patient states he has been short of breath for last 6 days but it got worse last night. He is usually not on oxygen but he was placed on oxygen last night to keep his saturations above 90%. Patient denies any chest pain fever chills abdominal pain nausea vomiting or change in bladder or bowel habits. He was given 40 mg IV Lasix in the ED and is being admitted for further management. Review of Systems Review of Systems: A 10 system review of systems was completed on the patient and is negative except for what is stated in the HPI. Nursing and ancillary documentation was reviewed. [facility] Past Medical History Medical History Benign prostatic hyperplasia Chronic anemia CKD (chronic kidney disease) stage 3, GFR 30-59 ml/min Colon cancer screening Combined systolic and diastolic congestive heart failure Coronary artery disease Status post three-vessel bypass and left ventricular aneurysm repair in February 2019 at [facility]. 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 Hyperlipidemia Hypertension Hypothyroidism Insulin dependent diabetes mellitus Hemoglobin A1c was 7.7% on 04/19/2021. Ischemic cardiomyopathy Most recent calculated EF was 31%. Myocardial infarction (~01/2019) Late presentation [place] found to have severe three-vessel disease, transferred to [facility] for emergent bypass with perioperative ventricular fibrillation arrest. Seizure disorder Surgical History Surgical History H/O cervical spine surgery Fusion History of coronary artery bypass graft (~02/2019) Three-vessel bypass and surgical repair of left ventricular aneurysm at [facility]. Family History Family History Mother Patient's mother is Hypertension Father Patient's father is Malignant neoplasm of prostate Social History Social History Social History: The patient lives at [facility]. His lives in their home. His daughter takes care of his . The patient had a set of twins a boy and a girl. 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 Surrogate decision maker: Josie Ann, . Code status: Full code. Smoking packs per day: 1 Smoking cigarettes per day: 20.0 Years smoked: 15 Smoking pack-years: 15.00 Smoking status: Never smoker Tobacco type: cigarettes Second hand tobacco smoke exposure: No Smoking end date: 01/20/09 Alcohol intake: never Substance use: never Substance use type: does not use Lack of Transportation: No Lack of Food: Never True Current Housing: I Have Housing Concerned About Future Housing: No Difficulty Paying Gas/Electric Bills: No Difficulty Paying for Meds: No Currently Unemployed: No Education: High School Diploma/GED Difficulty w/ Childcare or Family Care: No Living arrangements: longterm Additional living arrangements comments: Resides at [facility]. His lives in [place]. They have 2 grown children. 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 Gender identity (if verbalized by the patient): Male Sexual Orientation (if Verbalized by the Patient): Straight or Heterosexual Spiritual care concerns: No Meds Home Medications and Allergies Home Med
[2023-04-17 11:36] LABS: Glucose Point of Care 173 mg/dl (65-105)
[2023-04-17] MEDS: ENOXAPARIN 40 MG/0.4 ML SYRINGE SUB-Q (11:51)
[2023-04-17 16:30] LABS: Glucose Point of Care 162 mg/dl (65-105)
[2023-04-17] MEDS: SILVERGEL (ELTA) 45 ML 1 APPLIC TOPICAL (17:09)
[2023-04-17] MEDS: INSULIN GLARGINE (*BKC) 100 UNITS/ML 45 UNITS SUB-Q (17:09)
[2023-04-17 19:39] LABS: Glucose Point of Care 172 mg/dl (65-105)
[2023-04-17] MEDS: TAMSULOSIN HCL 0.4 MG CAPSULE 0.8 MG PO (20:25)
[2023-04-17] MEDS: ATORVASTATIN 40 MG TABLET PO (20:25)
[2023-04-17] MEDS: ACETAMINOPHEN 325 MG TABLET 650 MG PO (23:02)
[2023-04-18 12:10] LABS: Glucose Point of Care 101 mg/dl (65-105)
[2023-04-18 12:37] LABS: Glucose Point of Care 148 mg/dl (65-105)
[2023-04-18 16:56] LABS: Glucose Point of Care 140 mg/dl (65-105)
[2023-04-18 20:00] VITALS: PULSE 92; O2SAT 96
[2023-04-18 20:27] LABS: Glucose Point of Care 198 mg/dl (65-105)
[2023-04-18] MEDS: ACETAMINOPHEN 325 MG TABLET 650 MG PO (20:59)
[2023-04-18] MEDS: TAMSULOSIN HCL 0.4 MG CAPSULE 0.8 MG PO (21:00)
[2023-04-18] MEDS: levETIRAcetam 250 MG TABLET 750 MG PO (21:00)
[2023-04-18] MEDS: ATORVASTATIN 40 MG TABLET PO (21:00)
[2023-04-18 21:19] VITALS: BP 117/57; PULSE 89; RESP 16; TEMP 36.8; O2SAT 96
--- NOTE | 2023-04-18 21:25 | PC.NURSE ---
Paper documentation exists on this patient due to [employer] downtime on 04/18/23 from 0030 to 1930 .
[2023-04-19] VITALS (14 sets, daily range): BP systolic 120–136; BP diastolic 57–75; PULSE 62–97; RESP 12–18; TEMP 36.3–37.1; O2SAT 92–99
[2023-04-19] MEDS: LEVOTHYROXINE SODIUM 112 MCG, LEVOTHYROXINE SODIUM 25 MCG 137 MCG PO (05:36)
[2023-04-19 07:39] LABS: Glucose Point of Care 120 mg/dl (65-105)
[2023-04-19] MEDS: lisinopriL 5 MG TABLET PO (08:28)
[2023-04-19] MEDS: ASPIRIN 81 MG ENTERIC TABLET PO (08:29)
[2023-04-19] MEDS: POTASSIUM CHLORIDE 10 MEQ ER TABLET PO (08:29)
[2023-04-19] MEDS: FUROSEMIDE INJ 100 MG/10 ML VIAL 60 MG IV PUSH ×2 (08:30→20:25)
[2023-04-19] MEDS: levETIRAcetam 250 MG TABLET 750 MG PO ×2 (08:30→20:25)
[2023-04-19] MEDS: SILVERGEL (ELTA) 45 ML 1 APPLIC TOPICAL (08:34)
[2023-04-19] MEDS: ENOXAPARIN 40 MG/0.4 ML SYRINGE SUB-Q (08:35)
[2023-04-19] MEDS: PREGABALIN (*CRX) 75 MG CAPSULE PO ×2 (08:38→16:58)
[2023-04-19 09:30] LABS: Anion Gap 5 mmol/L (8-16); Blood Urea Nitrogen 32 mg/dL (9-20); Calcium 8.3 mg/dL (8.4-10.2); Carbon Dioxide 38 mmol/L (22-30); Chloride 98 mmol/L (98-107); Estimated CRCL calculation 63 ml/min; Estimated Glomerular Filt Rate 47; Glucose 152 mg/dL (65-110); Sodium 141 mmol/L (137-145)
[2023-04-19 09:55] LABS: NT Pro B Type Natriuretic Pept 7590 pg/mL (19.9-100)
--- NOTE | 2023-04-19 11:04 | PM.IMPN ---
Progress Note: A&P Assessment and Plan (1) Acute exacerbation of CHF (congestive heart failure): Qualifiers: Heart failure type: unspecified Qualified Code(s): I50.9 - Heart failure, unspecified Code(s): I50.9 - Heart failure, unspecified Status: Acute Assessment and Plan: Will start him on IV Lasix 60 mg b.i.d.. Monitor intake and output. Monitor daily weights. Will also get an echocardiogram. Continue lisinopril. Continue aspirin and statin (2) Seizure: Code(s): R56.9 - Unspecified convulsions Status: Acute Assessment and Plan: History of seizures. 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 Hold Trulicity for now. Monitor Accu-Cheks AC and HS. Continue hypoglycemia protocol Plan Full code Cardiac diabetic diet DVT prophylaxis-Lovenox Subjective Date/time seen: 04/19/23 11:04 Interval history: Breathing is better. Still a little short of breath. Vitals are stable Exam Narrative: GENERAL: Well-appearing, well-nourished, and in no acute distress. HEAD: Normocephalic, atraumatic. EYES: PERRLA and EOMI. ENT: Nares clear, no rhinorrhea or epistaxis. Mucous membranes moist. NECK: Supple. CHEST: Clear to auscultation. No respiratory distress. HEART: Regular rate and rhythm. No murmur heard. Normal peripheral pulses. ABDOMEN: Soft, nontender, nondistended, normal active bowel sounds. EXTREMITIES: Normal range of motion. Left lower extremity edema. SKIN: Warm, dry, no rash. NEURO: No focal deficits. Alert and oriented x3. PSYCH: Normal mood and affect. Objective Data Vital Signs Vital Signs: Vital Signs - 24 hr 04/18/23 21:19 04/18/23 20:00 04/19/23 00:10 Temperature 98.2 F Pulse Rate 89 89 Respiratory Rate 16 16 Blood Pressure 117/57 L Pulse Oximetry 96 96 96 Oxygen Delivery Nasal Cannula Nasal Cannula Oxygen Flow Rate 2.5 2 Fraction of Inspired Oxygen 28 04/18/23 20:00 04/19/23 00:00 04/19/23 04:00 Temperature Pulse Rate 92 83 75 Respiratory Rate Blood Pressure Pulse Oximetry Oxygen Delivery Oxygen Flow Rate Fraction of Inspired Oxygen 04/19/23 05:17 Temperature 97.8 F Pulse Rate 97 Respiratory Rate 16 Blood Pressure 133/70 Pulse Oximetry 99 Oxygen Delivery Oxygen Flow Rate Fraction of Inspired Oxygen Intake/Output Intake/Output: Intake & Output 04/16/23 04/17/23 04/18/23 04/19/23 23:59 23:59 23:59 23:59 Intake Total 1036 1334 Output Total 5250 925 Balance -4214 409 Meds/Results Medications: Active Medications Generic Name Dose Route Start Last Admin Trade Name Freq PRN Reason Stop Dose Admin Acetaminophen 650 mg 04/17/23 22:10 04/18/23 20:59 Acetaminophen 325 Mg Tablet PO 650 mg Q6H PRN Administration Mild Pain (1-3) or Fever Albuterol 2.5 mg 04/17/23 08:22 Albuterol Sulfate Neb 2.5 Mg/3 Ml Inh INHALATION Q6HRT PRN Shortness Of Breath Aspirin 81 mg 04/17/23 09:00 04/19/23 08:29 Aspirin 81 Mg Enteric Tablet PO 81 mg DAILY JERRY Administration Atorvastatin Calcium 40 mg 04/17/23 21:00 04/18/23 21:00 Atorvastatin 40 Mg Tablet PO 40 mg HS JERRY Administration Dextrose 12.5 gm 04/17/23 10:30 Dextrose 50% 25 Gm/50 Ml Syringe IV PUSH PRN PRN Hypoglycemia Protocol Enoxaparin Sodium 40 mg 04/17/23 11:00 04/19/23 08:35 Enoxaparin 40 Mg/0.4 Ml Syringe SUB-Q 40 mg DAILY JERRY Administration Furosemide 60 mg 04/17/23 09:00 04/19/23 08:30 Furosemide Inj 100 Mg/10 Ml Vial IV PUSH 60 mg Q12HR JERRY Administ
[2023-04-19 11:25] LABS: Glucose Point of Care 166 mg/dl (65-105)
[2023-04-19] MEDS: INSULIN ASPART (*BKC) 100 UNITS/ML SUB-Q ×2 (12:32→16:52)
[2023-04-19 13:03] LABS: Anion Gap 7 mmol/L (8-16); Blood Urea Nitrogen 25 mg/dL (9-20); Calcium 8.5 mg/dL (8.4-10.2); Carbon Dioxide 35 mmol/L (22-30); Chloride 99 mmol/L (98-107); Estimated CRCL calculation 73 ml/min; Estimated Glomerular Filt Rate 56; Glucose 152 mg/dL (65-110); Potassium 3.8 mmol/L (3.4-5.0); Sodium 141 mmol/L (137-145)
[2023-04-19 13:04] LABS: Hematocrit 46.1 % (42.0-52.0); Hemoglobin 14.3 g/dL (14.0-18.0); Mean Corpuscular Hemoglobin 29.1 pg (26-34); Mean Corpuscular Volume 93.7 fl (80-100); Mean Platelet Volume 11.5 fl (7.4-10.4); NT Pro B Type Natriuretic Pept 11100 pg/mL (19.9-100); Platelet Count Result 165 k/mm3 (150-375); Red Blood Count 4.92 M/mm3 (4.6-6.20); Red Cell Distribution Width 15.4 % (11.5-14.5); White Blood Count 8.4 K/mm3 (4.5-10.0)
[2023-04-19 16:28] LABS: Glucose Point of Care 153 mg/dl (65-105)
[2023-04-19] MEDS: INSULIN GLARGINE (*BKC) 100 UNITS/ML 45 UNITS SUB-Q (18:00)
--- NOTE | 2023-04-19 18:10 | PC.NURSE ---
Pt complaining of shortness of breath and a new cough. RN took and charted vital signs. RN called RT for a PRN breathing treatment.
[2023-04-19] MEDS: ALBUTEROL SULFATE NEB 2.5 MG/3 ML INH INHALATION (18:20)
[2023-04-19] MEDS: IPRATROPIUM BR 0.02% INH SOLN 0.5 MG/2.5 ML VIAL INHALATION (18:20)
[2023-04-19 20:17] LABS: Glucose Point of Care 157 mg/dl (65-105)
[2023-04-19] MEDS: TAMSULOSIN HCL 0.4 MG CAPSULE 0.8 MG PO (20:25)
[2023-04-19] MEDS: ATORVASTATIN 40 MG TABLET PO (20:25)
[2023-04-20] VITALS (7 sets, daily range): BP systolic 104–122; BP diastolic 56–62; PULSE 76–86; RESP 20; TEMP 35.9–36.4; O2SAT 91–99
[2023-04-20] MEDS: LEVOTHYROXINE SODIUM 112 MCG, LEVOTHYROXINE SODIUM 25 MCG 137 MCG PO (05:33)
[2023-04-20] MEDS: ACETAMINOPHEN 325 MG TABLET 650 MG PO (05:34)
[2023-04-20 07:44] LABS: Glucose Point of Care 158 mg/dl (65-105)
[2023-04-20] MEDS: INSULIN ASPART (*BKC) 100 UNITS/ML SUB-Q ×2 (08:33→11:49)
[2023-04-20] MEDS: levETIRAcetam 250 MG TABLET 750 MG PO (08:35)
[2023-04-20] MEDS: PREGABALIN (*CRX) 75 MG CAPSULE PO (08:35)
[2023-04-20] MEDS: FUROSEMIDE INJ 100 MG/10 ML VIAL 60 MG IV PUSH (08:36)
[2023-04-20] MEDS: POTASSIUM CHLORIDE 10 MEQ ER TABLET PO (08:36)
[2023-04-20] MEDS: lisinopriL 5 MG TABLET PO (08:36)
[2023-04-20] MEDS: ASPIRIN 81 MG ENTERIC TABLET PO (08:36)
[2023-04-20] MEDS: SILVERGEL (ELTA) 45 ML 1 APPLIC TOPICAL (08:37)
[2023-04-20] MEDS: ENOXAPARIN 40 MG/0.4 ML SYRINGE SUB-Q (08:37)
[2023-04-20 09:42] LABS: Anion Gap 9 mmol/L (8-16); Blood Urea Nitrogen 38 mg/dL (9-20); Calcium 8.1 mg/dL (8.4-10.2); Carbon Dioxide 33 mmol/L (22-30); Chloride 97 mmol/L (98-107); Estimated CRCL calculation 68 ml/min; Estimated Glomerular Filt Rate 51; Glucose 155 mg/dL (65-110); Potassium 4.1 mmol/L (3.4-5.0); Sodium 139 mmol/L (137-145)
--- NOTE | 2023-04-20 11:19 | PM.DS ---
DS: Admitting Diagnosis Discharge Date April 20, 2023 Admitting Diagnosis Acute on chronic CHF exacerbation. Systolic DS: Discharge Diagnosis Discharge Diagnosis (1) Acute exacerbation of CHF (congestive heart failure): Qualifiers: Heart failure type: unspecified Qualified Code(s): I50.9 - Heart failure, unspecified Code(s): I50.9 - Heart failure, unspecified Status: Acute Assessment and Plan: Will start him on IV Lasix 60 mg b.i.d.. Monitor intake and output. Monitor daily weights. Will also get an echocardiogram. Continue lisinopril. Continue aspirin and statin (2) Seizure: Code(s): R56.9 - Unspecified convulsions Status: Acute Assessment and Plan: History of seizures. 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 Hold Trulicity for now. Monitor Accu-Cheks AC and HS. Continue hypoglycemia protocol Plan Full code Cardiac diabetic diet DVT prophylaxis-Lovenox DS: Summary Hospital Course Hospital Course: Patient was admitted for CHF exacerbation, acute on chronic systolic. Patient is on appropriate cardiac regimen however we increased his IV diuretics and he did exceptionally well. He is now satting 99% no oxygen when i saw him today. Not have any complaints of chest pain shortness of breath. Will increase his Lasix on discharge to40mg p.o. daily. Otherwise electrolytes are okay and kidney function is good. Time Spent with Patient Time attestation: Total time spent providing and/or coordinating discharge services: Exam Narrative: GENERAL: Well-appearing, well-nourished, and in no acute distress. HEAD: Normocephalic, atraumatic. EYES: PERRLA and EOMI. ENT: Nares clear, no rhinorrhea or epistaxis. Mucous membranes moist. NECK: Supple. CHEST: Clear to auscultation. No respiratory distress. HEART: Regular rate and rhythm. No murmur heard. Normal peripheral pulses. ABDOMEN: Soft, nontender, nondistended, normal active bowel sounds. EXTREMITIES: Normal range of motion. Left lower extremity edema. SKIN: Warm, dry, no rash. NEURO: No focal deficits. Alert and oriented x3. PSYCH: Normal mood and affect. DS: Data Data Completed and Pending Labs on day of discharge: Labs from last 24 hours 04/20/23 04/20/23 04/19/23 08:59 07:39 20:15 WBC RBC Hgb Hct MCV MCH MCHC RDW Plt Count MPV Sodium 139 Potassium 4.1 Chloride 97 L Carbon Dioxide 33 H Anion Gap 9 BUN 38 H Creatinine 1.40 H Estim Creat Clear Calc 68 Estimated GFR 51 L Glucose 155 H POC Capillary Glucose 158 H 157 H Calcium 8.1 L NT-Pro-B Natriuret Pep 04/19/23 04/19/23 04/19/23 16:19 11:17 09:10 WBC RBC Hgb Hct MCV MCH MCHC RDW Plt Count MPV Sodium Potassium Chloride Carbon Dioxide Anion Gap BUN 32 H Creatinine Estim Creat Clear Calc Estimated GFR Glucose POC Capillary Glucose 153 H 166 H Calcium NT-Pro-B Natriuret Pep 04/18/23 10:30 WBC 8.4 RBC 4.92 Hgb 14.3 Hct 46.1 MCV 93.7 MCH 29.1 MCHC 31.0 L RDW 15.4 H Plt Count 165 MPV 11.5 H Sodium 141 Potassium 3.8 Chloride 99 Carbon Dioxide 35 H Anion Gap 7 L BUN 25 H Creatinine 1.30 Estim Creat Clear Calc 73 Estimated GFR 56 L Glucose 152 H POC Capillary Glucose Calcium 8.5 NT-Pro-B Natriuret Pep 43683 H Discharge Plan Discharge Attending physician on discharge: Bayron Bob Discharging Clinician: Bayron Bob Patient Disposition: Home,
[2023-04-20 11:37] LABS: Glucose Point of Care 140 mg/dl (65-105)
== END 2023-04-20 14:20 | DRG 291 ==
LOC: ANHED 03:41 → ANH3MEDSUR 04:32
PROVIDERS: Hospitalist; Admitting Provider Internal Medicine; Emergency Provider Emergency Medicine; PCP Family Medicine; Visit Provider Chiropractor
DX: I13.0 Hypertensive heart and chronic kidney disease with heart failure and stage 1 through stage 4 chronic kidney disease, or unspecified chronic kidney disease (principal); I50.23 Acute on chronic systolic (congestive) heart failure; I69.354 Hemiplegia and hemiparesis following cerebral infarction affecting left non-dominant side; D63.1 Anemia in chronic kidney disease; E11.65 Type 2 diabetes mellitus with hyperglycemia; E11.22 Type 2 diabetes mellitus with diabetic chronic kidney disease; E03.9 Hypothyroidism, unspecified; E78.5 Hyperlipidemia, unspecified; F32.A Depression, unspecified; G40.909 Epilepsy, unspecified, not intractable, without status epilepticus; H40.9 Unspecified glaucoma; I25.10 Atherosclerotic heart disease of native coronary artery without angina pectoris; I43 Cardiomyopathy in diseases classified elsewhere; I25.2 Old myocardial infarction; M10.9 Gout, unspecified; N18.30 Chronic kidney disease, stage 3 unspecified; N40.0 Benign prostatic hyperplasia without lower urinary tract symptoms; Z95.1 Presence of aortocoronary bypass graft; Z79.01 Long term (current) use of anticoagulants; Z79.4 Long term (current) use of insulin; Z79.82 Long term (current) use of aspirin
CPT/HCPCS: 36415; 71045; 80048; 80053; 82948; 83880; 84484; 85025; 85027; 85055; 85610; 85730; 93005; 93308; 94640; 96374; 96375; 99285; A9270; C8924; G0378; J1650; J1815; J1940; Q9957

== ENCOUNTER 2023-05-14 20:25 | Inpatient (IN) | payer MEDICARE, MEDICAID, SELFPAY ==
[2023-05-14] VITALS (7 sets, daily range): BP systolic 119–159; BP diastolic 79–98; PULSE 85–89; RESP 14–20; TEMP 36–36.3; O2SAT 91–99; BMI 31.6
--- NOTE | ~2023-05-14 | XR_ITS ---
EXAMINATION: XR chest 1V DATE: 05/14/2023 20:44 INDICATION: Shortness of breath. TECHNIQUE: A single frontal view of the chest was obtained. COMPARISON: Chest single view 04/19/2023, chest CT 06/07/2022 FINDINGS: There is a small left pleural effusion. There are chronic airspace opacities in left mid an d lower lung zones. No pneumothorax. Cardiomegaly is noted. Median sternotomy wires and mediastinal s urgical clips are seen, likely from prior coronary artery bypass grafting. IMPRESSION: 1. Stable small left pleural effusion. 2. Stable airspace opacities in left mid and lower lung zones, likely rounded atelectasis. 3. Cardiomegaly. Reviewed, dictated and finalized at location E. IMPRESSION: 1. Stable small left pleural effusion. 2. Stable airspace opacities in left mid and lower lung zones, likely rounded a telectasis. 3. Cardiomegaly.
--- NOTE | ~2023-05-14 | XR_ITS ---
Clinical Indication: Shortness of breath AP and lateral views of the chest: Comparison: 05/14/2023 Findings: Small left pleural effusion is present. There is probable minimal central congestive change . Cardiomediastinal silhouette is stable, status post median sternotomy. Bones and soft tissues are unremarkable. Impression: Small left pleural effusion and probable minimal central congestive change. Stable cardiomegaly, status post median sternotomy. Reviewed, dictated and finalized at location M. Impression: Small left pleural effusion and probable minimal central congestive change. Stable cardiomegaly, status post median sternotomy.
--- NOTE | 2023-05-14 20:32 | ECG_ITS ---
Measurements Intervals [place] Rate: 83 P: 72 CT: 179 QRS: -41 QRSD: 130 T: 113 QT: 437 QTc: 516 Interpretive Statements SINUS RHYTHM LEFT AXIS DEVIATION POSSIBLE LEFT ATRIAL ENLARGEMENT INTRAVENTRICULAR CONDUCTION DELAY POOR R WAVE PROGRESSION, CONSIDER ANTERIOR INFARCT INFERIOR INFARCT, AGE INDETERMINATE ST-T WAVE ABNORMALITY IN HIGH LATERAL LEADS- CONSIDER ISCHEMIA ABNORMAL ECG COMPARED TO ECG 04/17/2023 02:28:21 NO SIGNIFICANT CHANGES Electronically Signed On 05-14-2023 21:12:06 CDT by Valentín James D.O.
[2023-05-14 20:41] LABS: Basophils Absolute Auto 0.1 K/mm3 (0.0-0.1); Basophils Percent Auto 0.8 % (0.2-1.2); Eosinophils Absolute Auto 0.2 K/mm3 (0-0.3); Eosinophils Percent Auto 2.8 % (0-4.4); Hematocrit 39.9 % (42.0-52.0); Hemoglobin 12.3 g/dL (14.0-18.0); Immature Granulocyte Absolute 0.04 K/mm3 (0.00-0.031); Immature Granulocyte Percent A 0.5 % (0-0.5); Lymphocytes Percent Auto 13.5 % (18.3-44.2); Mean Corpuscular HGB Conc 30.8 g/dl (32-36); Mean Corpuscular Hemoglobin 28.5 pg (26-34); Mean Corpuscular Volume 92.6 fl (80-100); Mean Platelet Volume 12.8 fl (7.4-10.4); Monocytes Absolute Auto 0.9 K/mm3 (0.1-0.6); Monocytes Percent Auto 11.8 % (2.6-8.5); Neutrophils Absolute Auto 5.2 K/mm3 (1.3-6.7); Neutrophils Percent Auto 70.6 % (45.5-73.1); Platelet Count Result 113 k/mm3 (150-375); Red Blood Count 4.31 M/mm3 (4.6-6.20); Red Cell Distribution Width 15.7 % (11.5-14.5); White Blood Count 7.4 K/mm3 (4.5-10.0)
[2023-05-14 20:50] LABS: Alanine Aminotransferase 16 U/L (6-50); Albumin Level 2.8 g/dL (3.5-5.1); Alkaline Phosphatase 94 U/L (38-126); Anion Gap 3 mmol/L (8-16); Aspartate Amino Transferase 20 U/L (17-59); Bilirubin,Total 0.5 mg/dL (0.2-1.3); Blood Urea Nitrogen 25 mg/dL (9-20); Calcium 6.5 mg/dL (8.4-10.2); Carbon Dioxide 23 mmol/L (22-30); Chloride 114 mmol/L (98-107); Estimated CRCL calculation 99 ml/min; Estimated Glomerular Filt Rate > 60; Glucose 131 mg/dL (65-110); Potassium 3.1 mmol/L (3.4-5.0); Sodium 140 mmol/L (137-145)
[2023-05-14 21:15] LABS: Magnesium 1.7 mg/dL (1.6-2.3)
[2023-05-14 21:28] LABS: NT Pro B Type Natriuretic Pept 8120 pg/mL (19.9-100); Troponin I < 0.012 ng/mL (0.000-0.034)
[2023-05-14 21:30] LABS: Lactic Acid Reflex 1.2 mmol/L (0.7-2.0)
[2023-05-14 21:42] LABS: Alveolar/Arterial O2 Gradient 92.5 mmHg; Base Excess ABG -1.9 mEq/l (+/-2.0); Fractional Inspired Oxygen 32 %; HCO3 ABG 23.9 mEq/l (22.0-26.0); Oxygen Content ABG 19.7 %vol (16.0-22.0); Oxygen Saturation ABG 95.8 % (95.0-100.0); Oxyhemoglobin 92.8 % THb (90.0-100.0); PCO2 ABG 44.3 mmHg (35.0-45.0); PO2 ABG 83.8 mmHg (80.0-100.0); PO2 FiO2 Ratio Arterial Blood 2.62 %; Total Hemoglobin 15.1 g/dL (12.0-18.0); pH ABG 7.349 (7.350-7.450)
[2023-05-14 21:43] LABS: Device NASAL CANNULA; Modified Allen's Test Pass; Site Drawn RIGHT RADIAL
[2023-05-14 21:59] LABS: Procalcitonin 0.1 ng/mL
[2023-05-14 22:06] LABS: Appearance Urine Clear (Clear); Bacteria Urine None Seen /hpf; Bilirubin Urine Negative (Negative); Blood Urine Trace (Negative); Color Urine Yellow (Yellow); Glucose Urine UA 3+ mg/dL (Negative); Hyaline Casts Urine Present /lpf; Ketones Urine Negative (Negative); Leukocyte Esterase Ur Negative LEU/UL (Negative); Nitrate Urine Negative (Negative); Non Pathogenic Casts 0-2; Protein Urine 3+ mg/dL (Negative); RBC Urine 0-2 /hpf (0-2); Specific Grav Ur 1.025 (1.001-1.035); Squamous Epithelial Cell Urine None seen /hpf (Few); WBC Urine 0-5 /hpf; pH Urine 5.5 (5.0-9.0)
[2023-05-14 22:07] LABS: Add Urine Microscopic? YES
--- NOTE | 2023-05-14 22:32 | ED.GENADULT ---
HPI - General Adult General Chief complaint: Shortness of Breath/Dyspnea Stated complaint: LETHARGY Time Seen by Provider: 05/14/23 20:55 History of Present Illness HPI narrative: Patient is a 62-year-old gentleman who presents the emergency department with chief complaint of shortness of breath generalized weakness. Patient is a resident of local residential after he had a prior stroke. Patient has had generalized weakness today and also was noted to have shortness of breath and a oxygen saturation was in the 80s. The patient oxygen levels improved with nasal cannula oxygen Related Data Home Medications Medication Instructions Recorded Confirmed aspirin 81 mg tablet,delayed 81 mg PO DAILY heart disease 03/30/21 04/17/23 release atorvastatin 40 mg tablet 40 mg PO HS high cholesterol 03/30/21 04/17/23 biotin 5,000 mcg disintegrating 5,000 mcg PO DAILY supplement 03/30/21 04/17/23 tablet bisacodyl 10 mg rectal suppository 10 mg RECTAL DAILY PRN Constipation 03/30/21 04/17/23 levothyroxine 137 mcg tablet 137 mcg PO QAM hypothyroidism 03/30/21 04/17/23 tamsulosin 0.4 mg capsule 0.8 mg PO HS benign prostatic 03/30/21 04/17/23 hyperplasia ascorbic acid (vitamin C) 500 mg 500 mg PO BID wound healing 01/18/22 04/17/23 capsule duloxetine 60 mg capsule,delayed 60 mg PO DAILY depression 01/18/22 04/17/23 release baclofen 5 mg tablet 5 mg PO TID pain 06/09/22 04/17/23 dulaglutide 0.75 mg/0.5 mL 0.75 mg subcut WEEKLY 06/09/22 04/17/23 subcutaneous pen injector (Trulicity) empagliflozin 25 mg tablet 25 mg PO DAILY type 2 diabetes 06/09/22 04/17/23 (Jardiance) ferrous gluconate 324 mg (38 mg 324 mg PO DAILY supplementation 06/09/22 04/17/23 iron) tablet ipratropium 0.5 mg-albuterol 3 mg 3 ml inhalation Q6H PRN Shortness 06/09/22 04/17/23 (2.5 mg base)/3 mL nebulization Of Breath soln latanoprost 0.005 % eye drops 1 drp EACH EYE HS glaucoma 06/09/22 04/17/23 multivitamin with minerals (Daily 1 tablet PO DAILY wound healing ##0 06/09/22 04/17/23 Multivitamin-Minerals tablet) potassium chloride 10 mEq 10 meq PO DAILY hypokalemia 06/09/22 04/17/23 capsule,extended release sodium phosphates 19 gram-7 118 ml RECTAL DAILY PRN 06/09/22 04/17/23 gram/118 mL enema (Fleet Enema) Constipation amlodipine 2.5 mg tablet 5 mg PO DAILY Hypertension 12/29/22 04/17/23 brimonidine 0.2 % eye drops 1 drp EACH EYE BID glaucoma 12/29/22 04/17/23 diclofenac sodium 1 % topical gel 1 ea topical Q6H PRN mild pain to 12/29/22 04/17/23 hips/legs Nystatin Powder 1 applic topical DIRECTED PRN 03/06/23 04/17/23 Rash acetaminophen 500 mg tablet 1,000 mg PO Q8H PRN Pain (Scale 03/06/23 04/17/23 (Acetaminophen Extra Strength) Score 4-6) azelastine 137 mcg (0.1 %) nasal 1 spray intranasal Q12H allergic 03/06/23 04/17/23 spray aerosol rhinitis furosemide 40 mg tablet 40 mg PO DAILY HTN 03/06/23 04/17/23 magnesium hydroxide 400 mg/5 mL 30 ml PO HS PRN Constipation 03/06/23 04/17/23 oral suspension (Milk of Magnesia) magnesium oxide 400 mg (241.3 mg 400 mg PO DAILY hypomagnesemia 03/06/23 04/17/23 magnesium) tablet peg [id number] 1 1 drp EACH EYE BID dry eyes 03/06/23 04/17/23 %-0.2 %-0.2 % eye drops (Artificial Tears ([id number])) polyethylene glycol 1 ea DIRECTED PRN Constipation 03/06/23 04/17/23 pregabalin 75 mg capsule 75 mg PO BID neuropathy 03/06/23 04/17/23 primidone 50 mg tablet 50 mg PO TID tremors 03/06/23 04/17/23 ropinirole 3 mg tablet 1 mg PO HS RLS 03/06/23 04/17/23 silver chloride 1 ea topical DAILY wound healing 03/06/23 04/17/23 triamcinolone acetonide 0.1 % 1 applic topical BID dermatitis 03/06/23 04/17/23 topical cream cetirizine 10 mg tablet (All Day 10 mg PO DAILY 04/17/23 04/17/23 Allergy (cetirizine)) glucagon 1 mg injection kit 1 mg subcut PRN PRN Hypoglycemia 04/17/23 04/17/23 insulin glargine 100 unit/mL (3 45 unit subcut QPM 04/17/23 04/17/23 mL) subcutaneous pen (
[2023-05-14] MEDS: FUROSEMIDE INJ 40 MG/4 ML VIAL IV PUSH (22:45)
--- NOTE | 2023-05-14 22:53 | PM.IMHP ---
H&P: HPI History of Present Illness Date/Time: 05/14/23 22:53 Chief Complaint: AMS Narrative: This is a 62-year-old male with past medical history significant for insulin-dependent diabetes mellitus, hypertension, chronic left heel ulcer, peripheral diabetic neuropathy. Patient lives at a [facility]. was brought to the emergency room for evaluation due to lethargy. Most of the history has been obtained upon reviewing medical records. Preliminary workup was significant for lung infiltrates. Patient is been admitted for further evaluation management and treat EXAMINATION: XR chest 1V DATE: 05/14/2023 20:44 INDICATION: Shortness of breath. TECHNIQUE: A single frontal view of the chest was obtained. COMPARISON: Chest single view 04/19/2023, chest CT 06/07/2022 FINDINGS: There is a small left pleural effusion. There are chronic airspace opacities in left mid and lower lung zones. No pneumothorax. Cardiomegaly is noted. Median sternotomy wires and mediastinal surgical clips are seen, likely from prior coronary artery bypass grafting. IMPRESSION: 1. Stable small left pleural effusion. 2. Stable airspace opacities in left mid and lower lung zones, likely rounded atelectasis. 3. Cardiomegaly. Review of Systems Review of Systems: ROS unobtainable: Yes unobtainable due to mental status (Lethargy) [facility] Past Medical History Medical History Benign prostatic hyperplasia Chronic anemia CKD (chronic kidney disease) stage 3, GFR 30-59 ml/min Colon cancer screening Combined systolic and diastolic congestive heart failure Coronary artery disease Status post three-vessel bypass and left ventricular aneurysm repair in February 2019 at [facility]. Current use of assisted anticoagulation Depression Glaucoma Gout History of cerebrovascular accident (~01/2019) Post CABG right parietal infarction with clinical left hemiplegia. Hyperlipidemia Hypertension Hypothyroidism Insulin dependent diabetes mellitus Hemoglobin A1c was 7.7% on 04/19/2021. Ischemic cardiomyopathy Most recent calculated EF was 31%. Myocardial infarction (~01/2019) Late presentation [place] found to have severe three-vessel disease, transferred to [facility] for emergent bypass with perioperative ventricular fibrillation arrest. Seizure disorder Surgical History Surgical History H/O cervical spine surgery Fusion History of coronary artery bypass graft (~02/2019) Three-vessel bypass and surgical repair of left ventricular aneurysm at [facility]. Family History Family History Mother Patient's mother is Hypertension Father Patient's father is Malignant neoplasm of prostate Social History Social History Social History: The patient lives at [facility]. His lives in their home. His daughter takes care of his . The patient had a set of twins a boy and a girl. 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 Surrogate decision maker: Josie Ann, . Code status: Full code. Smoking packs per day: 1.5 Smoking cigarettes per day: 30.0 Years smoked: 30 Smoking pack-years: 45.00 Smoking status: Former smoker Tobacco type: cigarettes Second hand tobacco smoke exposure: No Smoking end date: 01/20/09 Alcohol intake: never Substance use: never Substance use type: does not use Lack of Transportation: No Lack of Food: Never True Current Housing: I Have Housing Concerned About Future Housing: No Difficulty Paying Gas/Electric Bills: No Difficulty Paying for Meds: No Currently Unemployed: No Education: High School Diploma/GED Difficulty w/ Childcare or Family Care: No Living arrangements: [facility] Enrique gonzalez
[2023-05-14] MEDS: AZITHROMYCIN 500 MG/NS 250 ML 500 MG/250 ML BAG 250 MG IVPB (23:24)
--- NOTE | 2023-05-14 23:50 | ADMGEN ---
This patient, Bayron Ann, was admitted to Medical Room 257-01. Patient/family oriented to hospital policies and general routines including ID bracelet, bed and alarms, visiting hours, pain management, procedures, bathroom and other care routines, personal items, smoking policy, room service/diet, and visiting hours. Information on how to activate the Rapid Response Team has been discussed. Patient/Family are encouraged to report perceived risks to care and to ask questions if they do not understand what they are told or what they should do.
[2023-05-15] VITALS (12 sets, daily range): BP systolic 114–130; BP diastolic 70–83; PULSE 82–93; RESP 14–20; TEMP 36.2; O2SAT 93–98
--- NOTE | 2023-05-15 | ECHO_ITS ---
Patient Info Name: Bayron Ann Age: 62 years : 1960 Gender: Male Ht: 75 in Wt: 252 lbs BSA: 2.49 m2 HR: 86 bpm BP: 114 / 70 mmHg Heart Rhythm: Sinus Rhythm Technical Quality: Poor Exam Date: 05/15/2023 2:37 PM Exam Location: [facility] Card Pulmonary Patient Status: Inpatient Admit Date: 05/15/2023 Staff Ordering Physician: Judy Calles PA-C Truck Engine Technician: Anay Johnston RDCS Attending Provider: Bianca Anna MD Referring Physician: Stevan MONTGOMERY; Exam Type: CA echo dop color flow w con Study Info Indications R60.9 - Edema, unspecified R06.02 - Shortness of breath Complete two-dimensional, color flow and Doppler transthoracic echocardiogram is performed with contrast to opacify the left ventricle and to improve the deliniation of the left ventricle endocardial borders. Contrast/Agitated Saline Contrast/Ag. Saline: Definity Amount: 4.00 ml Administered By: Anay Johnston RDCS Existing IV Access: Yes IV Access Condition: patent with no signs of infiltration Reason for Poor Study: poor echocardiographic windows Summary 1. Left ventricular chamber dimension is severely enlarged. 2. There is mildly increased left ventricular wall thickness. 3. Left ventricular systolic function is severely reduced, estimated at 20-25%. 4. The apex, anteroseptum are akinetic. The inferoseptum, inferior, anterior govea are hypokinetic. 5. Right ventricular chamber dimension is enlarged. 6. Right ventricular systolic function is reduced. 7. Left atrial chamber dimension is moderately enlarged. 8. Right atrial chamber dimension is moderately enlarged. 9. There is moderate aortic valve calcification. 10. There is mild aortic valve stenosis with a peak velocity of 138.87 cm/s, mean gradient of 5 mmHg, and aortic valve area of 1.40 cm2. 11. The mitral valve annulus is moderately calcified. 12. There is mild mitral valve regurgitation. 13. There is moderate tricuspid valve regurgitation. 14. Pulmonary 15. hypertension, estimated pulmonary arterial systolic pressure is 68 mmHg. Left Ventricle The apex, anteroseptum are akinetic. The inferoseptum, inferior, anterior govea are hypokinetic. Left ventricular chamber dimension is severely enlarged. Left ventricular systolic function is severely reduced, estimated at 20-25%. There is mildly increased left ventricular wall thickness. Right Ventricle Right ventricular chamber dimension is enlarged. Right ventricular systolic function is reduced. Left Atria Left atrial chamber dimension is moderately enlarged. Right Atria Right atrial chamber dimension is moderately enlarged. Atrial Septum Intact interatrial septum visualized by color flow imaging. Aortic Valve The aortic valve is probable trileaflet. There is mild aortic valve stenosis with a peak velocity of 138.87 cm/s, mean gradient of 5 mmHg, and aortic valve area of 1.40 cm2. There is no aortic valve regurgitation. There is moderate aortic valve calcification. Pulmonic Valve The pulmonic valve is not well visualized. Mitral Valve There is mild mitral valve regurgitation. The mitral valve annulus is moderately calcified. Tricuspid Valve There is moderate tricuspid valve regurgitation. Pulmonary hypertension, estimated pulmonary arterial systolic pressure is 68 mmHg. Pericardium/Pleural There is no pericardial effusion. Inferior Vena Cava Dilated inferior vena cava with <50% collapse upon inspiration consistent with elevated right atrial pressure, 15 mmHg. Aorta The aortic root size at
[2023-05-15 01:28] LABS: Troponin I < 0.012 ng/mL (0.000-0.034)
[2023-05-15] MEDS: LEVOTHYROXINE SODIUM 25 MCG TABLET PO (05:31)
[2023-05-15] MEDS: LEVOTHYROXINE SODIUM 112 MCG TABLET PO (05:31)
[2023-05-15 05:43] LABS: Basophils Absolute Auto 0.1 K/mm3 (0.0-0.1); Basophils Percent Auto 0.8 % (0.2-1.2); Eosinophils Absolute Auto 0.2 K/mm3 (0-0.3); Eosinophils Percent Auto 2.9 % (0-4.4); Hematocrit 47.2 % (42.0-52.0); Hemoglobin 14.4 g/dL (14.0-18.0); Immature Granulocyte Absolute 0.06 K/mm3 (0.00-0.031); Immature Granulocyte Percent A 0.7 % (0-0.5); Lymphocytes Absolute Auto 1.26 K/mm3 (0.9-3.2); Mean Corpuscular HGB Conc 30.5 g/dl (32-36); Mean Corpuscular Hemoglobin 28.2 pg (26-34); Mean Corpuscular Volume 92.5 fl (80-100); Mean Platelet Volume 12.3 fl (7.4-10.4); Monocytes Percent Auto 11.3 % (2.6-8.5); Neutrophils Absolute Auto 5.8 K/mm3 (1.3-6.7); Neutrophils Percent Auto 69.3 % (45.5-73.1); Platelet Count Result 131 k/mm3 (150-375); Red Cell Distribution Width 15.8 % (11.5-14.5); White Blood Count 8.4 K/mm3 (4.5-10.0)
[2023-05-15 05:58] LABS: Alanine Aminotransferase 20 U/L (6-50); Albumin Level 3.8 g/dL (3.5-5.1); Alkaline Phosphatase 113 U/L (38-126); Anion Gap 5 mmol/L (8-16); Aspartate Amino Transferase 24 U/L (17-59); Bilirubin,Total 0.6 mg/dL (0.2-1.3); Blood Urea Nitrogen 27 mg/dL (9-20); Calcium 8.2 mg/dL (8.4-10.2); Carbon Dioxide 28 mmol/L (22-30); Chloride 111 mmol/L (98-107); Estimated CRCL calculation 76 ml/min; Estimated Glomerular Filt Rate > 60; Glucose 140 mg/dL (65-110); Potassium 3.6 mmol/L (3.4-5.0); Sodium 144 mmol/L (137-145)
[2023-05-15 07:46] LABS: Glucose Point of Care 126 mg/dl (65-105)
[2023-05-15] MEDS: DULoxetine HCL 60 MG CAPSULE.DR PO (09:27)
[2023-05-15] MEDS: MAGNESIUM OXIDE 400 MG TABLET PO (09:27)
[2023-05-15] MEDS: BACLOFEN 5 MG TABLET PO ×3 (09:27→17:39)
[2023-05-15] MEDS: PREGABALIN (*CRX) 75 MG CAPSULE PO ×2 (09:27→20:14)
[2023-05-15] MEDS: FUROSEMIDE INJ 40 MG/4 ML VIAL IV PUSH ×2 (09:27→20:07)
[2023-05-15] MEDS: levETIRAcetam 250 MG TABLET 750 MG PO ×2 (09:27→20:08)
[2023-05-15] MEDS: THERAPEUTIC MULTIVITAMINS/MINERALS TAB (*BKC) 1 TABLET PO (09:28)
[2023-05-15] MEDS: BRIMONIDINE TARTRATE 0.2% OP SOLN 5 ML BTL 1 DROP EACH EYE ×2 (09:28→20:07)
[2023-05-15] MEDS: ASPIRIN 81 MG ENTERIC TABLET PO (09:28)
[2023-05-15] MEDS: INSULIN ASPART (*BKC) 100 UNITS/ML SUB-Q ×4 (09:28→17:39)
[2023-05-15] MEDS: FERROUS GLUCONATE 324 MG TABLET PO (09:28)
[2023-05-15] MEDS: lisinopriL 5 MG TABLET PO (09:28)
[2023-05-15] MEDS: ARTIFICIAL TEARS OPHTH SOLN 15 ML BOTTLE 1 DROP EACH EYE ×2 (09:28→17:39)
[2023-05-15] MEDS: LORATADINE 10 MG TABLET PO (09:28)
[2023-05-15] MEDS: PANTOPRAZOLE 40 MG TABLET PO (09:28)
[2023-05-15] MEDS: GENTAMICIN SULFATE 0.1% CR 15 GM TUBE 1 APPLIC TOPICAL (09:29)
[2023-05-15] MEDS: AZELASTINE HCL NASAL 0.1% 137 MCG/SPR 30 ML BTL 1 SPRAY NASAL ×2 (09:34→20:07)
[2023-05-15] MEDS: TRIAMCINOLONE ACET 0.1% CREAM 15 GM TUBE 1 APPLIC TOPICAL (09:35)
[2023-05-15] MEDS: amLODIPine BESYLATE 5 MG TABLET PO (09:37)
[2023-05-15 11:49] LABS: Glucose Point of Care 249 mg/dl (65-105)
[2023-05-15] MEDS: PRIMIDONE 50 MG TABLET PO ×2 (12:42→17:39)
--- NOTE | 2023-05-15 13:06 | PM.IMPN ---
Progress Note: A&P Assessment and Plan (1) Acute exacerbation of CHF (congestive heart failure): Qualifiers: Heart failure type: unspecified Qualified Code(s): I50.9 - Heart failure, unspecified Code(s): I50.9 - Heart failure, unspecified Status: Acute Assessment and Plan: Patient recently here on 04/19/2023 for CHF exacerbation. -Monitor vital signs, I&Os, BUN/creatinine, daily weights, and patient is a fall risk -Monitor serum electrolytes, Keep serum Potassium>4 and serum Magnesium>2 and CBC -previous EKG revealed EF of 35-40%, grade 1 diastolic dysfunction with wall motion abnormalities compatible to prior anterior infarct -Obtain an Echocardiogram -Lasix 40 mg IV q12H -BNP elevated at 8100 -tropes negative x3 -wean oxygen to maintain O2 saturation greater than 90%. -Patient was post to follow-up with cardiology back in November but I do not see record of this in our system. (2) Fatigue: Code(s): R53.83 - Other fatigue Status: Acute Assessment and Plan: Patient presented to the ED due to increased fatigue. Patient recently in the hospital for CHF exacerbation. He did not change echocardiogram at this time. Echocardiogram ordered. -Increased to take could be due to worsening CHF -overall labs are fairly normal. 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 BUN moderately increased at 25. Continue to monitor Plan Continue home medications as appropriate. Subjective Date/time seen: 05/15/23 13:06 Interval history: Patient presented back to the ED due to increased fatigue and shortness of breath. He was found have an elevated BNP of surgery IV Lasix. He is not sure why he is so tired. I explained him that with heart failure he can have the symptoms. He has difficulty lying flat in does have a chronic cough. He is requiring 4 L of oxygen and typically does not wear oxygen at home. He was really started on IV antibiotics although chest x-ray does not reveal any signs of pneumonia. He also clinically does not appear infectious. Is likely that patient is suffering more from uncontrolled CHF. Review of Systems Review of Systems: All systems reviewed & are unremarkable except as noted in HPI and below Exam Narrative: GENERAL: Comfortable, no acute distress HENMT: moist mucous membranes EYES: EOM intact b/l NECK: no lymphadenopathy RESPIRATORY: clear to auscultation CARDIO: RRR GI: soft, nontender, bowel sounds present, mild edema over the flanks SKIN: no rashes EXTREMITIES: no edema, redness or tenderness Objective Data Vital Signs Vital Signs: Vital Signs - 24 hr 05/14/23 20:27 05/14/23 20:31 05/14/23 21:01 Temperature 97.4 F L Pulse Rate 85 85 Respiratory Rate 14 16 Blood Pressure 143/82 H Pulse Oximetry 91 95 96 Oxygen Delivery Nasal Cannula Nasal Cannula Oxygen Flow Rate 2 2 Fraction of Inspired Oxygen 05/14/23 22:23 05/14/23 22:46 05/14/23 23:01 Temperature Pulse Rate 88 88 89 Respiratory Rate 17 17 16 Blood Pressure 159/93 H 155/98 H 157/98 H Pulse Oximetry 99 98 97 Oxygen Delivery Oxygen Flow Rate Fraction of Inspired Oxygen 05/14/23 23:59 05/15/23 00:00 05/15/23 00:00 Temperature 96.8 F L Pulse Rate 87 86 Respiratory Rate 20
[2023-05-15] MEDS: PERFLUTREN LIPID MICROSPHERES 1.5 ML VIAL DILUTED TO 10 ML TOTAL VOLUME IV PUSH (15:00)
[2023-05-15] MEDS: MAGNESIUM SULF 2 GM/WATER 50ML 2 GM/50 ML BAG IVPB (17:08)
[2023-05-15 17:36] LABS: Glucose Point of Care 155 mg/dl (65-105)
[2023-05-15] MEDS: INSULIN GLARGINE (*BKC) 100 UNITS/ML 45 UNITS SUB-Q (17:39)
[2023-05-15] MEDS: LATANOPROST 0.005% OP SOLN 2.5 ML BTL 1 DROP EACH EYE (20:07)
[2023-05-15] MEDS: rOPINIRole HCL 1 MG TABLET PO (20:07)
[2023-05-15] MEDS: ZINC SULFATE 220 MG CAPSULE PO (20:07)
[2023-05-15] MEDS: TAMSULOSIN HCL 0.4 MG CAPSULE 0.8 MG PO (20:08)
[2023-05-15 21:46] LABS: Glucose Point of Care 172 mg/dl (65-105)
[2023-05-16] VITALS (15 sets, daily range): BP systolic 100–124; BP diastolic 62–76; PULSE 72–87; RESP 18–20; TEMP 36–36.6; O2SAT 92–100
[2023-05-16] MEDS: MICONAZOLE NITRATE 2% CREAM 30 GM TUBE 1 APPLIC TOPICAL (00:23)
[2023-05-16 01:42] LABS: Glucose Point of Care 147 mg/dl (65-105)
[2023-05-16 05:25] LABS: Basophils Absolute Auto 0.1 K/mm3 (0.0-0.1); Eosinophils Absolute Auto 0.2 K/mm3 (0-0.3); Hematocrit 46.4 % (42.0-52.0); Hemoglobin 14.4 g/dL (14.0-18.0); Immature Granulocyte Absolute 0.05 K/mm3 (0.00-0.031); Immature Granulocyte Percent A 0.6 % (0-0.5); Immature Platelet Fraction Pct 5.9 % (0.9-11.2); Lymphocytes Absolute Auto 1.18 K/mm3 (0.9-3.2); Lymphocytes Percent Auto 15.2 % (18.3-44.2); Mean Corpuscular Hemoglobin 28.7 pg (26-34); Mean Corpuscular Volume 92.4 fl (80-100); Mean Platelet Volume 12.5 fl (7.4-10.4); Monocytes Absolute Auto 0.9 K/mm3 (0.1-0.6); Monocytes Percent Auto 11.7 % (2.6-8.5); Neutrophils Absolute Auto 5.3 K/mm3 (1.3-6.7); Neutrophils Percent Auto 68.5 % (45.5-73.1); Platelet Count Result 111 k/mm3 (150-375); Red Blood Count 5.02 M/mm3 (4.6-6.20); Red Cell Distribution Width 15.7 % (11.5-14.5); White Blood Count 7.8 K/mm3 (4.5-10.0)
[2023-05-16 05:37] LABS: Albumin Level 3.6 g/dL (3.5-5.1); Blood Urea Nitrogen 33 mg/dL (9-20); Chloride 107 mmol/L (98-107); Glucose 134 mg/dL (65-110); Magnesium 2.3 mg/dL (1.6-2.3); Potassium 3.9 mmol/L (3.4-5.0); Sodium 140 mmol/L (137-145)
[2023-05-16 05:58] LABS: Alanine Aminotransferase 19 U/L (6-50); Alkaline Phosphatase 97 U/L (38-126); Anion Gap 4 mmol/L (8-16); Aspartate Amino Transferase 24 U/L (17-59); Bilirubin,Total 0.7 mg/dL (0.2-1.3); Carbon Dioxide 29 mmol/L (22-30); Estimated CRCL calculation 83 ml/min; Estimated Glomerular Filt Rate > 60
[2023-05-16] MEDS: LEVOTHYROXINE SODIUM 112 MCG TABLET PO (06:09)
[2023-05-16] MEDS: LEVOTHYROXINE SODIUM 25 MCG TABLET PO (06:09)
[2023-05-16 08:56] LABS: Glucose Point of Care 102 mg/dl (65-105)
[2023-05-16] MEDS: PREGABALIN (*CRX) 75 MG CAPSULE PO ×2 (08:57→20:16)
[2023-05-16] MEDS: PRIMIDONE 50 MG TABLET PO ×3 (08:57→17:02)
[2023-05-16] MEDS: FERROUS GLUCONATE 324 MG TABLET PO (08:57)
[2023-05-16] MEDS: THERAPEUTIC MULTIVITAMINS/MINERALS TAB (*BKC) 1 TABLET PO (08:57)
[2023-05-16] MEDS: MAGNESIUM OXIDE 400 MG TABLET PO (08:57)
[2023-05-16] MEDS: levETIRAcetam 250 MG TABLET 750 MG PO ×2 (08:58→20:16)
[2023-05-16] MEDS: amLODIPine BESYLATE 5 MG TABLET PO (08:58)
[2023-05-16] MEDS: BACLOFEN 5 MG TABLET PO ×3 (08:58→17:02)
[2023-05-16] MEDS: lisinopriL 5 MG TABLET PO (08:58)
[2023-05-16] MEDS: LORATADINE 10 MG TABLET PO (08:59)
[2023-05-16] MEDS: ASPIRIN 81 MG ENTERIC TABLET PO (08:59)
[2023-05-16] MEDS: DULoxetine HCL 60 MG CAPSULE.DR PO (08:59)
[2023-05-16] MEDS: PANTOPRAZOLE 40 MG TABLET PO (08:59)
[2023-05-16] MEDS: FUROSEMIDE INJ 40 MG/4 ML VIAL IV PUSH ×2 (09:05→20:16)
[2023-05-16] MEDS: ARTIFICIAL TEARS OPHTH SOLN 15 ML BOTTLE 1 DROP EACH EYE ×2 (09:06→17:02)
[2023-05-16] MEDS: INSULIN ASPART (*BKC) 100 UNITS/ML SUB-Q ×4 (09:07→18:25)
[2023-05-16] MEDS: BRIMONIDINE TARTRATE 0.2% OP SOLN 5 ML BTL 1 DROP EACH EYE ×2 (09:12→20:16)
[2023-05-16] MEDS: AZELASTINE HCL NASAL 0.1% 137 MCG/SPR 30 ML BTL 1 SPRAY NASAL ×2 (09:13→20:15)
--- NOTE | 2023-05-16 10:24 | PM.IMPN ---
Progress Note: A&P Assessment and Plan (1) Acute exacerbation of CHF (congestive heart failure): Qualifiers: Heart failure type: unspecified Qualified Code(s): I50.9 - Heart failure, unspecified Code(s): I50.9 - Heart failure, unspecified Status: Acute Assessment and Plan: Patient recently here on 04/19/2023 for CHF exacerbation. -Monitor vital signs, I&Os, BUN/creatinine, daily weights, and patient is a fall risk -Monitor serum electrolytes, Keep serum Potassium>4 and serum Magnesium>2 and CBC -previous EKG revealed EF of 35-40%, grade 1 diastolic dysfunction with wall motion abnormalities compatible to prior anterior infarct -Obtain an Echocardiogram -Lasix 40 mg IV q12H -BNP elevated at 8100 -tropes negative x3 -wean oxygen to maintain O2 saturation greater than 90%. -Patient was post to follow-up with cardiology back in November but I do not see record of this in our system. (2) Fatigue: Code(s): R53.83 - Other fatigue Status: Acute Assessment and Plan: Patient presented to the ED due to increased fatigue. Patient recently in the hospital for CHF exacerbation. He did not change echocardiogram at this time. Echocardiogram ordered. -Increased to take could be due to worsening CHF -overall labs are fairly normal. (3) Type 2 diabetes mellitus with hyperglycemia: Qualifiers: Diabetes mellitus terminal superintendent insulin use: with terminal superintendent use Qualified Code(s): E11.65 - Type 2 diabetes mellitus with hyperglycemia; Z79.4 - longterm (current) use of insulin Code(s): E11.65 - Type 2 diabetes mellitus with hyperglycemia Status: Acute Assessment and Plan: -Insulin Lispro sliding scale, Accu-checks qAc and HS and Hold oral hypoglycemics -Initiate hypoglycemic precautions -Obtain a HgbA1c (4) Cpyvc-kz-jslptqq kidney injury: Code(s): N17.9 - Acute kidney failure, unspecified; N18.9 - Chronic kidney disease, unspecified Status: Inactive Assessment and Plan: Patient's kidney function is stable. BUN moderately increased at 25. Continue to monitor Plan Continue home medications as appropriate. Subjective Date/time seen: 05/16/23 10:24 Interval history: no new complaints sob improved Exam Narrative: GENERAL: Comfortable, no acute distress HENMT: moist mucous membranes EYES: EOM intact b/l NECK: no lymphadenopathy RESPIRATORY: clear to auscultation CARDIO: RRR GI: soft, nontender, bowel sounds present, mild edema over the flanks SKIN: no rashes EXTREMITIES: no edema, redness or tenderness Objective Data Vital Signs Vital Signs: Vital Signs - 24 hr 05/15/23 14:00 05/15/23 12:00 05/15/23 16:00 Temperature 97.1 F L Pulse Rate 87 91 85 Respiratory Rate 20 Blood Pressure 114/70 Pulse Oximetry 96 Oxygen Delivery Oxygen Flow Rate Fraction of Inspired Oxygen 05/15/23 20:11 05/15/23 20:00 05/15/23 20:00 Temperature 97.2 F L Pulse Rate 84 82 Respiratory Rate 20 Blood Pressure 128/80 Pulse Oximetry 96 96 Oxygen Delivery Nasal Cannula Oxygen Flow Rate 2 Fraction of Inspired Oxygen 05/16/23 00:11 05/16/23 00:00 05/16/23 04:00 Temperature Pulse Rate 77 72 Respiratory Rate Blood Pressure Pulse Oximetry 94 Oxygen Delivery Nasal Cannula Oxygen Flow Rate 2 Fraction of Inspired Oxygen 28 05/16/23 04:35 05/16/23 08:55 Temperature 96.8 F L Pulse Rate 74 74 Respiratory Rate 20 Blood Pressure 124/76 111/70 Pulse Oximetry 96 98 Oxygen Delivery Oxygen Flow Rate Fraction of Inspired Oxygen Intake/Output Intake/Output: Intake & Output 05/13/23 05/14/23 05/15/23 05/16/23 23:59 23:59 23:59 23:59 Intake Total 50 1772 950 Output Total 2600 1000 Balance 50 -828 -50 Meds/Results Medications: Active Medications Generic Name Dose Route Start Last Admin Trade Name Anton PRN Reason Stop Dose Admin Acetaminophen 1,000 mg 05/15/23 02:
[2023-05-16 12:20] LABS: Glucose Point of Care 204 mg/dl (65-105)
--- NOTE | 2023-05-16 12:33 | PM.CNCAR ---
Assessment and Plan Assessment and plan (1) Acute exacerbation of CHF (congestive heart failure): Qualifiers: Heart failure type: unspecified Qualified Code(s): I50.9 - Heart failure, unspecified Code(s): I50.9 - Heart failure, unspecified Status: Acute Assessment and Plan: Continue with IV Lasix today. Anticipate changing to PO Lasix tomorrow. Please monitor strict I/Os. As for his heart failure with reduced ejection fraction, will stop Amlodipine to allow blood pressure room for GDMT. Start Toprol. Increase home Lisinopril from 5mg to 10mg. Will arrange for outpatient follow up with Dr. Rojas. History of Present Illness History of Present Illness Consult date/time: 05/16/23 12:33 Requesting physician: Bayron Bob MD Consult reason: congestive heart failure Reason For Visit: hypoxic respiratory failure, dyspnea, generalized Narrative: We are consulted for congestive heart failure. This is a 62-year-old male who follows with Dr. Rojas. He has coronary artery disease who presented in January 2019 with myocardial infarction. Cardiac cath showed chronic occlusion of the LAD and diffuse three vessel coronary artery disease. He had very poor LV function with LVEF 15% and anteroapical aneurysm. IABP was placed and patient sent to [facility] for surgical revascularization He underwent CABG and had a left ventricular aneurysmectomy done. Post-operatively, he had ventricular fibrillation arrest and had a CVA with left hemiplegia. He also had post-operative atrial fibrillation. Echo 11/2022 showed LVEF 35-40%. Patient last saw Dr. Rojas in January 2022. Echo 04/17/2023 shows LVEF 25-30%. Patient was brought in from his intermediate for shortness of breath and weakness. Shortness of breath had been occurring for about a week. No chest pain. No lower extremity edema. BNP elevated at 8,120. Troponins negative x 2. CXR with small left pleural effusion and minimal central congestive changes. Echo 05/15/2023 shows LVEF 20-25%. Review of Systems Review of Systems: All systems reviewed & are unremarkable except as noted in HPI and below (HPI) FOR[facility]LY [facility] Past Medical History Medical History Benign prostatic hyperplasia Chronic anemia CKD (chronic kidney disease) stage 3, GFR 30-59 ml/min Colon cancer screening Combined systolic and diastolic congestive heart failure Coronary artery disease Status post three-vessel bypass and left ventricular aneurysm repair in February 2019 at [facility]. Current use of halfway anticoagulation Depression Glaucoma Gout History of cerebrovascular accident (~01/2019) Post CABG right parietal infarction with clinical left hemiplegia. Hyperlipidemia Hypertension Hypothyroidism Insulin dependent diabetes mellitus Hemoglobin A1c was 7.7% on 04/19/2021. Ischemic cardiomyopathy Most recent calculated EF was 31%. Myocardial infarction (~01/2019) Late presentation [place] found to have severe three-vessel disease, transferred to [facility] for emergent bypass with perioperative ventricular fibrillation arrest. Seizure disorder Surgical History Surgical History H/O cervical spine surgery Fusion History of coronary artery bypass graft (~02/2019) Three-vessel bypass and surgical repair of left ventricular aneurysm at [facility]. Family History Family History Mother Patient's mother is Hypertension Father Patient's father is Malignant neoplasm of prostate Social History Social History Social History: The patient lives at [facility]. His lives in their home. His daughter takes care of his . The patient had a set of twins a boy and a girl. 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
[2023-05-16] MEDS: METOPROLOL SUCCINATE EXT REL 25 MG TABCR PO (13:57)
[2023-05-16] MEDS: TRIAMCINOLONE ACET 0.1% CREAM 15 GM TUBE 1 APPLIC TOPICAL ×2 (13:58→17:03)
[2023-05-16 16:46] LABS: Glucose Point of Care 124 mg/dl (65-105)
[2023-05-16] MEDS: INSULIN GLARGINE (*BKC) 100 UNITS/ML 45 UNITS SUB-Q (18:27)
[2023-05-16] MEDS: ZINC SULFATE 220 MG CAPSULE PO (20:16)
[2023-05-16] MEDS: rOPINIRole HCL 1 MG TABLET PO (20:16)
[2023-05-16] MEDS: LATANOPROST 0.005% OP SOLN 2.5 ML BTL 1 DROP EACH EYE (20:16)
[2023-05-16] MEDS: TAMSULOSIN HCL 0.4 MG CAPSULE 0.8 MG PO (20:16)
[2023-05-16] MEDS: TOLNAFTATE 1% POWDER 45 GM BTL 1 APPLIC TOPICAL (20:17)
[2023-05-16 20:55] LABS: Glucose Point of Care 204 mg/dl (65-105)
[2023-05-17] VITALS (11 sets, daily range): BP systolic 91–103; BP diastolic 58–69; PULSE 66–74; RESP 16–20; TEMP 36.2–36.6; O2SAT 92–97
[2023-05-17] MEDS: ACETAMINOPHEN 500 MG TABLET 1000 MG PO ×2 (03:16→18:54)
[2023-05-17] MEDS: BACLOFEN 5 MG TABLET PO ×3 (04:52→23:08)
[2023-05-17] MEDS: LEVOTHYROXINE SODIUM 112 MCG TABLET PO (05:48)
[2023-05-17] MEDS: LEVOTHYROXINE SODIUM 25 MCG TABLET PO (05:48)
[2023-05-17 07:41] LABS: Glucose Point of Care 148 mg/dl (65-105)
--- NOTE | 2023-05-17 08:40 | PCPTNOTE ---
Attempted PT evaluation, pt's BP is low this morning per RN. Will follow.
[2023-05-17] MEDS: levETIRAcetam 250 MG TABLET 750 MG PO ×2 (09:36→20:47)
[2023-05-17] MEDS: DULoxetine HCL 60 MG CAPSULE.DR PO (09:36)
[2023-05-17] MEDS: MAGNESIUM OXIDE 400 MG TABLET PO (09:37)
[2023-05-17] MEDS: METOPROLOL SUCCINATE EXT REL 25 MG TABCR PO (09:37)
[2023-05-17] MEDS: PANTOPRAZOLE 40 MG TABLET PO (09:37)
[2023-05-17] MEDS: THERAPEUTIC MULTIVITAMINS/MINERALS TAB (*BKC) 1 TABLET PO (09:37)
[2023-05-17] MEDS: FERROUS GLUCONATE 324 MG TABLET PO (09:37)
[2023-05-17] MEDS: PRIMIDONE 50 MG TABLET PO ×3 (09:37→17:09)
[2023-05-17] MEDS: LORATADINE 10 MG TABLET PO (09:38)
[2023-05-17] MEDS: ASPIRIN 81 MG ENTERIC TABLET PO (09:38)
[2023-05-17] MEDS: PREGABALIN (*CRX) 75 MG CAPSULE PO ×2 (09:40→20:48)
[2023-05-17] MEDS: FUROSEMIDE INJ 40 MG/4 ML VIAL IV PUSH (09:41)
[2023-05-17] MEDS: AZELASTINE HCL NASAL 0.1% 137 MCG/SPR 30 ML BTL 1 SPRAY NASAL ×2 (09:41→20:47)
[2023-05-17] MEDS: ARTIFICIAL TEARS OPHTH SOLN 15 ML BOTTLE 1 DROP EACH EYE ×2 (09:42→17:10)
[2023-05-17] MEDS: TOLNAFTATE 1% POWDER 45 GM BTL 1 APPLIC TOPICAL ×2 (09:47→20:48)
[2023-05-17] MEDS: BRIMONIDINE TARTRATE 0.2% OP SOLN 5 ML BTL 1 DROP EACH EYE ×2 (09:47→20:47)
[2023-05-17] MEDS: TRIAMCINOLONE ACET 0.1% CREAM 15 GM TUBE 1 APPLIC TOPICAL (09:48)
[2023-05-17] MEDS: INSULIN ASPART (*BKC) 100 UNITS/ML SUB-Q ×3 (09:50→17:22)
--- NOTE | 2023-05-17 09:50 | P.CDI_ITS ---
acute systolic CDI Query Clarification Request Documented history of CHF. CHF noted in the assessment and plan. Elevated BNP on 05/14/23 lab work. Lasix listed as a home medication. Patient receiving Lasix. Edema noted in the documentation. Congestive changes noted on the 05/15/23 Chest Xray. Shortness of breath with exertion noted in documentation. Please specify type and acuity of heart failure if known. * Acute * Chronic * Acute on Chronic * Unknown * Systolic * Diastolic * Combined Systolic and Diastolic * Unknown
--- NOTE | 2023-05-17 10:51 | PM.IMPN ---
Progress Note: A&P Assessment and Plan (1) Acute exacerbation of CHF (congestive heart failure): Qualifiers: Heart failure type: unspecified Qualified Code(s): I50.9 - Heart failure, unspecified Code(s): I50.9 - Heart failure, unspecified Status: Acute Assessment and Plan: Patient recently here on 04/19/2023 for CHF exacerbation. -Monitor vital signs, I&Os, BUN/creatinine, daily weights, and patient is a fall risk -Monitor serum electrolytes, Keep serum Potassium>4 and serum Magnesium>2 and CBC -previous EKG revealed EF of 35-40%, grade 1 diastolic dysfunction with wall motion abnormalities compatible to prior anterior infarct -Obtain an Echocardiogram -Lasix 40 mg IV q12H -BNP elevated at 8100 -tropes negative x3 -wean oxygen to maintain O2 saturation greater than 90%. -Patient was post to follow-up with cardiology back in November but I do not see record of this in our system. Blood pressure little low today. Patient does feel more weak and lethargic. Will adjust his blood pressure medications. (2) Fatigue: Code(s): R53.83 - Other fatigue Status: Acute Assessment and Plan: Patient presented to the ED due to increased fatigue. Patient recently in the hospital for CHF exacerbation. He did not change echocardiogram at this time. Echocardiogram ordered. -Increased to take could be due to worsening CHF -overall labs are fairly normal. (3) Type 2 diabetes mellitus with hyperglycemia: Qualifiers: Diabetes mellitus director long term care insulin use: with assisted use Qualified Code(s): E11.65 - Type 2 diabetes mellitus with hyperglycemia; Z79.4 - halfway (current) use of insulin Code(s): E11.65 - Type 2 diabetes mellitus with hyperglycemia Status: Acute Assessment and Plan: -Insulin Lispro sliding scale, Accu-checks qAc and HS and Hold oral hypoglycemics -Initiate hypoglycemic precautions -Obtain a HgbA1c (4) Ovexj-yi-rnobsdp kidney injury: Code(s): N17.9 - Acute kidney failure, unspecified; N18.9 - Chronic kidney disease, unspecified Status: Inactive Assessment and Plan: Patient's kidney function is stable. BUN moderately increased at 25. Continue to monitor Plan Continue home medications as appropriate. Subjective Date/time seen: 05/17/23 10:51 Interval history: No complaints Exam Narrative: GENERAL: Comfortable, no acute distress HENMT: moist mucous membranes EYES: EOM intact b/l NECK: no lymphadenopathy RESPIRATORY: clear to auscultation CARDIO: RRR GI: soft, nontender, bowel sounds present, mild edema over the flanks SKIN: no rashes EXTREMITIES: no edema, redness or tenderness Objective Data Vital Signs Vital Signs: Vital Signs - 24 hr 05/16/23 11:09 05/16/23 11:43 05/16/23 13:51 Temperature Pulse Rate 78 Respiratory Rate Blood Pressure 122/69 Pulse Oximetry 94 92 93 Oxygen Delivery Nasal Cannula Room Air Oxygen Flow Rate 1 05/16/23 13:57 05/16/23 14:20 05/16/23 12:00 Temperature 97.8 F Pulse Rate 78 78 76 Respiratory Rate 18 Blood Pressure 107/62 Pulse Oximetry 92 Oxygen Delivery Oxygen Flow Rate 05/16/23 16:00 05/16/23 20:41 05/16/23 20:00 Temperature 97.2 F L Pulse Rate 84 87 Respiratory Rate 20 Blood Pressure 100/67 Pulse Oximetry 100 Oxygen Delivery Room Air Oxygen Flow Rate 05/16/23 20:00 05/17/23 00:00 05/17/23 04:00 Temperature Pulse Rate 73 70 69 Respiratory Rate Blood Pressure Pulse Oximetry Oxygen Delivery Oxygen Flow Rate 05/17/23 04:27 05/17/23 07:40 05/17/23 08:00 Temperature 97.1 F L 97.6 F Pulse Rate 73 71 71 Respiratory Rate 20 16 Blood Pressure 91/66 L 99/68 L Pulse Oximetry 96 95 Oxygen Delivery Oxygen Flow Rate 05/17/23 09:37 Temperature Pulse Rate 70 Respiratory Rate Blood Pressure Pulse Oximetry Oxygen Delivery Oxygen Flow Rate Intake/Output Intake/O
[2023-05-17 11:57] LABS: Glucose Point of Care 159 mg/dl (65-105)
--- NOTE | 2023-05-17 11:58 | PM.PNCARD ---
Progress Note: A&P Assessment and Plan (1) Acute exacerbation of CHF (congestive heart failure): Qualifiers: Heart failure type: unspecified Qualified Code(s): I50.9 - Heart failure, unspecified Code(s): I50.9 - Heart failure, unspecified Status: Acute Assessment and Plan: Shift to PO Lasix today. Please monitor strict I/Os. As for his heart failure with reduced ejection fraction, continue Amlodipine to allow blood pressure room for GDMT. Start Toprol. Increase home Lisinopril from 5mg to 10mg. Cardiology will sign off. Please call with questions. Subjective Date/time seen: 05/17/23 11:58 Interval history: Feeling better today. He is complaining of some pain in his left foot. No chest pain, shortness of breath, or palpitations. Exam Const: General: comfortable and no acute distress Eyes: General: appearance normal, both eyes and all related structures Sclera: sclerae normal Resp: Effort & Inspection: normal respiratory effort Auscultation: diminished lung sounds Cardio: Rate: regular rate Rhythm: regular rhythm Heart sounds: Murmur heart sound present systolic Neuro: Speech: normal speech Psych: Mental Status: mental status grossly normal Affect: normal affect Objective Data Vital Signs Vital Signs: Vital Signs - 24 hr 05/16/23 13:51 05/16/23 13:57 05/16/23 14:20 Temperature 36.6 C Pulse Rate 78 78 78 Respiratory Rate 18 Blood Pressure 122/69 107/62 Pulse Oximetry 93 92 Oxygen Delivery 05/16/23 12:00 05/16/23 16:00 05/16/23 20:41 Temperature 36.2 C L Pulse Rate 76 84 87 Respiratory Rate 20 Blood Pressure 100/67 Pulse Oximetry 100 Oxygen Delivery 05/16/23 20:00 05/16/23 20:00 05/17/23 00:00 Temperature Pulse Rate 73 70 Respiratory Rate Blood Pressure Pulse Oximetry Oxygen Delivery Room Air 05/17/23 04:00 05/17/23 04:27 05/17/23 07:40 Temperature 36.2 C L 36.4 C Pulse Rate 69 73 71 Respiratory Rate 20 16 Blood Pressure 91/66 L 99/68 L Pulse Oximetry 96 95 Oxygen Delivery 05/17/23 08:00 05/17/23 09:37 05/17/23 09:40 Temperature Pulse Rate 71 70 Respiratory Rate Blood Pressure Pulse Oximetry Oxygen Delivery Room Air 05/17/23 10:40 Temperature Pulse Rate Respiratory Rate Blood Pressure Pulse Oximetry Oxygen Delivery Room Air Intake/Output Intake/Output: Intake & Output 05/14/23 05/15/23 05/16/23 05/17/23 23:59 23:59 23:59 23:59 Intake Total 50 1772 2270 720 Output Total 2600 1550 Balance 50 -828 720 720 Meds/Results Medications: Active Medications Generic Name Dose Route Start Last Admin Trade Name Freq PRN Reason Stop Dose Admin Acetaminophen 1,000 mg 05/15/23 02:10 05/17/23 03:16 Acetaminophen 500 Mg Tablet PO 1,000 mg Q8H PRN Administration Pain (Scale Score 4-6) Albuterol 2.5 mg 05/15/23 02:56 Albuterol Sulfate Neb 2.5 Mg/3 Ml Inh INHALATION Q6H PRN Shortness Of Breath Artificial Tears 1 drop 05/15/23 09:00 05/17/23 09:42 Artificial Tears Ophth Soln 15 Ml Bottle EACH EYE 1 drop BID JERRY Administration Aspirin 81 mg 05/15/23 09:00 05/17/23 09:38 Aspirin 81 Mg Enteric Tablet PO 81 mg DAILY JERRY Administration Azelastine HCl 1 spray 05/15/23 09:00 05/17/23 09:41 Azelastine Hcl Nasal 0.1% 137 Mcg/Spr 30 Ml Btl NASAL 1 spray Q12HR JERRY Administration Baclofen 5 mg 05/17/23 15:00 Baclofen 5 Mg Tablet PO Q8H JERRY Bisacodyl 10 mg 05/15/23 02:10 Bisacodyl 10 Mg Suppository RECTAL DAILY PRN Constipation Brimonidine Tartrate 1 drop 05/15/23 09:00 05/17/23 09:47 Brimonidine Tartrate 0.2% Op Soln 5 Ml Btl EACH EYE 1 drop Q12HR JERRY Administration Dextrose 12.5 gm 05/15/23 06:11 Dextrose 50% 25 Gm/50 Ml Syringe IV PUSH PRN PRN Hypoglycemia Protocol Diclofenac Sodium 1 applic 05/15/23 02:10 Diclofenac Sodium 1% 1
--- NOTE | 2023-05-17 13:57 | PCPTNOTE ---
On 05/17/23, the student, MICHELLE Jolley, provided care and completed [facility] documentation on this patient. I have reviewed the student's documentation and agree with the findings.
[2023-05-17] MEDS: FUROSEMIDE 40 MG TABLET PO (17:09)
[2023-05-17 17:19] LABS: Glucose Point of Care 173 mg/dl (65-105)
[2023-05-17] MEDS: INSULIN GLARGINE (*BKC) 100 UNITS/ML 45 UNITS SUB-Q (17:23)
[2023-05-17] MEDS: LATANOPROST 0.005% OP SOLN 2.5 ML BTL 1 DROP EACH EYE (20:47)
[2023-05-17] MEDS: ZINC SULFATE 220 MG CAPSULE PO (20:48)
[2023-05-17] MEDS: rOPINIRole HCL 1 MG TABLET PO (20:48)
[2023-05-17] MEDS: TAMSULOSIN HCL 0.4 MG CAPSULE 0.8 MG PO (20:48)
[2023-05-17 20:57] LABS: Glucose Point of Care 131 mg/dl (65-105)
[2023-05-18] VITALS (8 sets, daily range): BP systolic 106–115; BP diastolic 64–79; PULSE 68–91; RESP 16–20; TEMP 35.6–36.6; O2SAT 90–99
[2023-05-18] MEDS: ACETAMINOPHEN 500 MG TABLET 1000 MG PO (06:18)
[2023-05-18] MEDS: LEVOTHYROXINE SODIUM 25 MCG TABLET PO (06:19)
[2023-05-18] MEDS: LEVOTHYROXINE SODIUM 112 MCG TABLET PO (06:19)
[2023-05-18] MEDS: BACLOFEN 5 MG TABLET PO ×2 (06:19→17:19)
[2023-05-18 08:32] LABS: Glucose Point of Care 156 mg/dl (65-105)
[2023-05-18] MEDS: FERROUS GLUCONATE 324 MG TABLET PO (08:53)
[2023-05-18] MEDS: ASPIRIN 81 MG ENTERIC TABLET PO (08:53)
[2023-05-18] MEDS: PANTOPRAZOLE 40 MG TABLET PO (08:54)
[2023-05-18] MEDS: PREGABALIN (*CRX) 75 MG CAPSULE PO (08:54)
[2023-05-18] MEDS: LORATADINE 10 MG TABLET PO (08:54)
[2023-05-18] MEDS: DULoxetine HCL 60 MG CAPSULE.DR PO (08:54)
[2023-05-18] MEDS: levETIRAcetam 250 MG TABLET 750 MG PO (08:54)
[2023-05-18] MEDS: lisinopriL 5 MG TABLET PO (08:54)
[2023-05-18] MEDS: PRIMIDONE 50 MG TABLET PO ×3 (08:54→17:19)
[2023-05-18] MEDS: ARTIFICIAL TEARS OPHTH SOLN 15 ML BOTTLE 1 DROP EACH EYE ×2 (08:54→17:19)
[2023-05-18] MEDS: MAGNESIUM OXIDE 400 MG TABLET PO (08:54)
[2023-05-18] MEDS: FUROSEMIDE 40 MG TABLET PO ×2 (08:54→17:19)
[2023-05-18] MEDS: METOPROLOL SUCCINATE EXT REL 25 MG TABCR PO (08:54)
[2023-05-18] MEDS: THERAPEUTIC MULTIVITAMINS/MINERALS TAB (*BKC) 1 TABLET PO (08:54)
[2023-05-18] MEDS: TRIAMCINOLONE ACET 0.1% CREAM 15 GM TUBE 1 APPLIC TOPICAL ×2 (08:55→17:19)
[2023-05-18] MEDS: BRIMONIDINE TARTRATE 0.2% OP SOLN 5 ML BTL 1 DROP EACH EYE (08:55)
[2023-05-18] MEDS: TOLNAFTATE 1% POWDER 45 GM BTL 1 APPLIC TOPICAL (08:55)
[2023-05-18] MEDS: AZELASTINE HCL NASAL 0.1% 137 MCG/SPR 30 ML BTL 1 SPRAY NASAL (08:55)
[2023-05-18] MEDS: INSULIN ASPART (*BKC) 100 UNITS/ML SUB-Q ×3 (08:58→17:08)
--- NOTE | 2023-05-18 12:11 | PM.DS ---
DS: Admitting Diagnosis Discharge Date May 18, 2023 Admitting Diagnosis Hypoxic respiratory failure, CHF exacerbation. , systolic. DS: Discharge Diagnosis Discharge Diagnosis (1) Generalized weakness: Code(s): R53.1 - Weakness Status: Acute (2) Pneumonia: Code(s): J18.9 - Pneumonia, unspecified organism Status: Acute (3) Acute exacerbation of CHF (congestive heart failure): Qualifiers: Heart failure type: unspecified Qualified Code(s): I50.9 - Heart failure, unspecified Code(s): I50.9 - Heart failure, unspecified Status: Acute Assessment and Plan: Summary 11/30/22 ? 1. Definity contrast injected to improve visualization. ? 2. Mild LV enlargement with systolic dysfunction with akinesis of the mid to apical anterior wall, apex, apical septum and apical inferior wall. ? 3. Wall motion abnormalities are compatible with previous mid to apical anterior infarction. ? 4. Dilated left atrium. ? 5. Mild aortic valve stenosis. Left Ventricle ? Left ventricular chamber dimension is mildly enlarged. ? Left ventricular systolic function is moderately reduced, estimated at 35-40%. ? The left ventricular diastolic function is grade I diastolic dysfunction. Right Ventricle ? Right ventricular chamber dimension is normal. 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 He was found to have mild exacerbation of CHF. Medications were adjusted and he is breathing much better. He is at his baseline and can be discharged. Time Spent with Patient Time attestation: Total time spent providing and/or coordinating discharge services: Exam Narrative: GENERAL: Comfortable, no acute distress HENMT: moist mucous membranes EYES: EOM intact b/l NECK: no lymphadenopathy RESPIRATORY: clear to auscultation CARDIO: RRR GI: soft, nontender, bowel sounds present, mild edema over the flanks SKIN: no rashes EXTREMITIES: no edema, redness or tenderness DS: Data Data Completed and Pending Labs on day of discharge: Labs from last 24 hours 05/18/23 05/17/23 05/17/23 08:30 20:50 17:12 POC Capillary Glucose 156 H 131 H 173 H Preliminary micro results at discharge 05/14/23 22:43 Blood Culture - Preliminary Blood 05/14/23 22:43 Blood Culture - Preliminary Blood Discharge Plan Discharge Attending physician on discharge: Bayron Bob Consulting providers: Scarlett De La Torre Discharging Clinician: Bayron Bob Patient Disposition: Home, Self-Care Activity: as tolerated Diet: as tolerated Patient Instructions: Antibiotic Form, Pain Management (DC) Stand Alone Forms: General Discharge Information Follow-up/Referrals: Marcy Davalos, SHIRT FINISHER-C [Advanced Practice Nurse] - (05/23/23 at 11:00. Please arrive at 10:45.) Discharge Medications: New metoprolol succinate [Toprol XL] 25 mg Tablet Extended Release 24 Hr 25 mg PO QAM 30 Days Qty: 30 0RF Continued atorvastatin 40 mg tablet 40 mg PO HS levothyroxine 137 mcg tablet 137 mcg PO QAM aspirin 81 mg Tablet,Delayed Release (Dr/Ec) 81 mg PO DAILY bisacodyl 1
[2023-05-18 12:18] LABS: Glucose Point of Care 150 mg/dl (65-105)
[2023-05-18 17:13] LABS: Glucose Point of Care 191 mg/dl (65-105)
[2023-05-18] MEDS: INSULIN GLARGINE (*BKC) 100 UNITS/ML 45 UNITS SUB-Q (17:19)
== END 2023-05-18 19:43 | disposition home or self-care (01) | DRG 291 ==
LOC: ANHED 22:35 → ANH2MED 22:59
PROVIDERS: Internal Medicine Critical Care Medicine; Admitting Provider Internal Medicine; Emergency Provider Emergency Medicine; PCP Family Medicine; Visit Provider Chiropractor
DX: I13.0 Hypertensive heart and chronic kidney disease with heart failure and stage 1 through stage 4 chronic kidney disease, or unspecified chronic kidney disease (principal); I50.23 Acute on chronic systolic (congestive) heart failure; I69.354 Hemiplegia and hemiparesis following cerebral infarction affecting left non-dominant side; N17.9 Acute kidney failure, unspecified; E11.22 Type 2 diabetes mellitus with diabetic chronic kidney disease; N18.30 Chronic kidney disease, stage 3 unspecified; N40.0 Benign prostatic hyperplasia without lower urinary tract symptoms; F64.9 Gender identity disorder, unspecified; I25.10 Atherosclerotic heart disease of native coronary artery without angina pectoris; H40.9 Unspecified glaucoma; G40.909 Epilepsy, unspecified, not intractable, without status epilepticus; E03.9 Hypothyroidism, unspecified; E78.5 Hyperlipidemia, unspecified; G25.81 Restless legs syndrome; E11.42 Type 2 diabetes mellitus with diabetic polyneuropathy; E11.65 Type 2 diabetes mellitus with hyperglycemia; I25.2 Old myocardial infarction; Z95.1 Presence of aortocoronary bypass graft; Z79.01 Long term (current) use of anticoagulants; Z98.1 Arthrodesis status; Z79.4 Long term (current) use of insulin
CPT/HCPCS: 36415; 36600; 71045; 71046; 80053; 81001; 82805; 82948; 83605; 83735; 83880; 84145; 84484; 85025; 85055; 87040; 93005; 96365; 96375; 97162; 97166; 97530; 97535; 99285; A9270; C8929; G0378; G0379; J0456; J0696; J1815; J1940; J3475; Q9957

== ENCOUNTER 2023-06-07 09:26 | Outpatient (CLI) | payer MEDICAID, SELFPAY ==
--- NOTE | ~2023-06-07 | MR_ITS ---
EXAMINATION: MR foot LT wo/w con DATE: 06/07/2023 10:49 INDICATION: Chronic wound and osteomyelitis at the left heel TECHNIQUE: Magnetic resonance imaging (MRI) of the left fore/mid foot was performed without and with 20 mL Multihance intravenous contrast. Sequences included axial, sagittal and coronal T1-weighted FSE , sagittal fluid sensitive FSE STIR, axial and coronal T2-weighted FS FSE, axial T1-weighted FS FSE a nd postcontrast axial, sagittal and coronal T1-weighted FS FSE. COMPARISON: Left foot radiographs dated 01/07/2023 FINDINGS: Large skin ulceration with loss of the overlying subcutaneous fat overlying the posterolateral margin of the posterior tuberosity of the calcaneus. There is an irregular cortical contour in this region with underlying geographic region of decreased T1 and increased T2 signal with associated enhancement consistent with osteomyelitis. No nonenhancing necrotic bone. At the mild to moderate polyarticular osteoarthritis at the left ankle, mid and hindfoot. Subarticular cystic changes are seen in the talus along the margin of the subtalar joint primarily at the anterior facet. Otherwise normal marrow sign al. No fracture or other regions of osteolysis or other pathologic marrow replacing process. There is extensive increased signal throughout the intrinsic musculature of the foot with some fatty atrophy of the deeper intrinsic musculature in the forefoot. Findings most consistent with acute or chronic d enervation change such as in the setting of diabetes. Visualized musculature of the joint spaces no a bscess or other abnormal fluid collections. The ligaments and tendons of the colon visualized foot ar e normal. Assessment is somewhat limited by motion artifact primarily on the axial sequences. IMPRESSION: 1. Small region of marrow signal change and enhancement with overlying cortical irregularity at the p osterior tuberosity of the calcaneus underlying a skin ulceration at the heel which would be consiste nt with secondary osteomyelitis. No abscess. Reviewed, dictated and finalized at location A. IMPRESSION: 1. Small region of marrow signal change and enhancement with overlying cortical irregularity at the posterior tuberosity of the calcaneus underlying a skin ul ceration at the heel which would be consistent with secondary osteomyelitis. No abscess.
== END 2023-06-07 09:27 | disposition home or self-care (01) ==
PROVIDERS: PCP Family Medicine; Visit Provider Family Medicine
DX: M86.672 Other chronic osteomyelitis, left ankle and foot (principal)
CPT/HCPCS: 73720; A9577

== ENCOUNTER 2023-07-05 13:56 | Outpatient (CLI) | payer MEDICAID, SELFPAY ==
--- NOTE | ~2023-07-05 | CT_ITS ---
CT Scan of the Chest without Contrast: Clinical Indication: Pneumonia Technique: Contiguous sections were acquired throughout the chest without intravenous contrast. Dose reduction technique was used on this scan by utilizing automated exposure control and iterative recon struction technique. The dose-length product (DLP) was 885.29 mGy-cm. COMPARISON: 06/07/2022 Findings: There is no evidence of any significant mediastinal, hilar or axillary lymphadenopathy. Evidence of p rior CABG noted. There is no evidence of pleural or pericardial effusion. There is dense left basilar consolidation, suggestive atelectasis, though pneumonia is not completely excluded. Images through the upper abdomen reveal perisplenic ascites. Impression: Probable left basilar atelectasis, versus possibly pneumonia, or even neoplasm. Correlate clinically. Consider follow-up exam in 1-3 months to reassess. Perisplenic ascites in the left upper quadrant. Cardiomegaly, status post CABG Reviewed, dictated and finalized at [facility]. Impression: Probable left basilar atelectasis, versus possibly pneumonia, or even neoplasm. Correlate clinically. Consider follow-up exam in 1-3 months to reassess. Perisplenic ascites in the left upper quadrant. Cardiomegaly, status post CABG
== END 2023-07-05 13:57 | disposition home or self-care (01) ==
PROVIDERS: PCP Family Medicine; Visit Provider Family Medicine
DX: J18.9 Pneumonia, unspecified organism (principal); I51.7 Cardiomegaly; R91.8 Other nonspecific abnormal finding of lung field
CPT/HCPCS: 71250

== ENCOUNTER 2023-07-19 11:24 | Outpatient (RCR) | payer MEDICARE, MEDICAID, SELFPAY ==
--- NOTE | 2023-07-19 15:50 | P.PNWOUND_ITS ---
Wound Care Note Date/Time: 07/19/23 15:50 History: 62 yo man with left heel decubitus ulcer.? Has hx of CVA and is bed and wheel chair bound.? He is doing well with current wound care and denies any changes or concerns.? He is continuing to work with PT to increase mobility and strength. He underwent Left foot MRI on 06/07/23 which showed evidence of chronic osteomyelitis. His wound has healed completely and he denies any wound openings or other concerns. 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 Continue monitoring for any signs of skin breakdown. OK to be full weight bearing on left foot. Follow up as needed. (2) History of CVA (cerebrovascular accident): Code(s): Z86.73 - Personal history of transient ischemic attack (TIA), and cerebral infarction without residual deficits Status: Chronic Exam Extrem: Other: No wound openings on the left heel where the previous ulcer was. Tissue appears firm without any signs of active infection.
== END 2023-10-08 08:26 | disposition home or self-care (01) ==
LOC: ANHWOC 11:24
PROVIDERS: PCP Family Medicine; Visit Provider Surgery
DX: E11.621 Type 2 diabetes mellitus with foot ulcer (principal); L97.409 Non-pressure chronic ulcer of unspecified heel and midfoot with unspecified severity
CPT/HCPCS: 99213; G0463

== ENCOUNTER 2023-11-02 13:35 | Emergency (ER) | payer MEDICARE, MEDICAID, SELFPAY ==
[2023-11-02] VITALS (8 sets, daily range): BP systolic 104–138; BP diastolic 72–84; PULSE 65–72; RESP 15–20; TEMP 36.5–36.7; O2SAT 97–100
--- NOTE | 2023-11-02 13:47 | ECG_ITS ---
Measurements Intervals [place] Rate: 70 P: 34 IN: 158 QRS: -30 QRSD: 138 T: 119 QT: 443 QTc: 481 Interpretive Statements SINUS RHYTHM POSSIBLE LEFT ATRIAL ENLARGEMENT [-0.1mV P WAVE IN V1/V2] INTRAVENTRICULAR CONDUCTION DELAY [130+ ms QRS DURATION] ANTEROSEPTAL MYOCARDIAL INFARCTION , OF INDETERMINATE AGE [40+ ms Q WAVE IN V1-V4] COMPARED TO ECG 05/14/2023 20:34:50 NO SIGNIFICANT CHANGES Electronically Signed On 11-02-2023 16:41:49 MECHANICAL EXPERT by Maritza Edwards M.D.
[2023-11-02 14:16] LABS: Basophils Absolute Auto 0.1 K/mm3 (0.0-0.1); Basophils Percent Auto 0.8 % (0.2-1.2); Eosinophils Absolute Auto 0.4 K/mm3 (0-0.3); Eosinophils Percent Auto 4.3 % (0-4.4); Hematocrit 44.3 % (42.0-52.0); Hemoglobin 13.6 g/dL (14.0-18.0); Immature Granulocyte Percent A 1.2 % (0-0.5); Immature Platelet Fraction Pct 5.5 % (0.9-11.2); Lymphocytes Absolute Auto 1.08 K/mm3 (0.9-3.2); Lymphocytes Percent Auto 12.6 % (18.3-44.2); Mean Corpuscular HGB Conc 30.7 g/dl (32-36); Mean Corpuscular Hemoglobin 30.1 pg (26-34); Mean Platelet Volume 11.5 fl (7.4-10.4); Monocytes Absolute Auto 1.1 K/mm3 (0.1-0.6); Monocytes Percent Auto 12.6 % (2.6-8.5); Neutrophils Absolute Auto 5.9 K/mm3 (1.3-6.7); Neutrophils Percent Auto 68.5 % (45.5-73.1); Platelet Count Result 127 k/mm3 (150-375); Red Blood Count 4.52 M/mm3 (4.6-6.20); Red Cell Distribution Width 16.1 % (11.5-14.5); White Blood Count 8.6 K/mm3 (4.5-10.0)
--- NOTE | 2023-11-02 14:39 | ED.GENADULT ---
HPI - General Adult General Chief complaint: Seizure Stated complaint: seizures Time Seen by Provider: 11/02/23 14:32 History of Present Illness HPI narrative: 63-year-old male present to the ED for evaluation after having a 1 minute seizure. Patient denies any falls or injuries. Patient was diagnosed by [facility] with nonepileptic seizures. Patient states when he was coming back from breakfast he was sitting in his chair and had 1 minute of seizure-like activity. Patient denies any pain or injury from this episode. Previous EMR documentation shows that the patient does follow-up with [facility] and they stated that the the patient was diagnosed with nonepileptic seizures and that they planned to decrease his Keppra. Related Data Home Medications Medication Instructions Recorded Confirmed aspirin 81 mg tablet,delayed 81 mg PO DAILY heart disease 03/30/21 06/14/23 release atorvastatin 40 mg tablet 40 mg PO HS high cholesterol 03/30/21 06/14/23 biotin 5,000 mcg disintegrating 5,000 mcg PO DAILY supplement 03/30/21 06/14/23 tablet levothyroxine 137 mcg tablet 137 mcg PO QAM hypothyroidism 03/30/21 06/14/23 tamsulosin 0.4 mg capsule 0.8 mg PO HS benign prostatic 03/30/21 06/14/23 hyperplasia ascorbic acid (vitamin C) 500 mg 500 mg PO BID wound healing 01/18/22 06/14/23 capsule duloxetine 60 mg capsule,delayed 60 mg PO DAILY depression 01/18/22 06/14/23 release baclofen 5 mg tablet 5 mg PO TID pain 06/09/22 06/14/23 dulaglutide 0.75 mg/0.5 mL 0.75 mg subcut WEEKLY 06/09/22 06/14/23 subcutaneous pen injector (Trulicity) empagliflozin 25 mg tablet 25 mg PO DAILY type 2 diabetes 06/09/22 06/14/23 (Jardiance) ferrous gluconate 324 mg (38 mg 324 mg PO DAILY supplementation 06/09/22 06/14/23 iron) tablet ipratropium 0.5 mg-albuterol 3 mg 3 ml inhalation Q6H PRN Shortness 06/09/22 06/14/23 (2.5 mg base)/3 mL nebulization Of Breath soln latanoprost 0.005 % eye drops 1 drp EACH EYE HS glaucoma 06/09/22 06/14/23 multivitamin with minerals (Daily 1 tablet PO DAILY wound healing ##0 06/09/22 06/14/23 Multivitamin-Minerals tablet) potassium chloride 10 mEq 10 meq PO DAILY hypokalemia 06/09/22 06/14/23 capsule,extended release sodium phosphates 19 gram-7 118 ml RECTAL DAILY PRN 06/09/22 06/14/23 gram/118 mL enema (Fleet Enema) Constipation amlodipine 2.5 mg tablet 5 mg PO DAILY Hypertension 12/29/22 06/14/23 brimonidine 0.2 % eye drops 1 drp EACH EYE BID glaucoma 12/29/22 06/14/23 diclofenac sodium 1 % topical gel 1 ea topical Q6H PRN mild pain to 12/29/22 06/14/23 hips/legs Nystatin Powder 1 applic topical DIRECTED PRN 03/06/23 06/14/23 Rash acetaminophen 500 mg tablet 1,000 mg PO Q8H PRN Pain (Scale 03/06/23 06/14/23 (Acetaminophen Extra Strength) Score 4-6) azelastine 137 mcg (0.1 %) nasal 1 spray intranasal Q12H allergic 03/06/23 06/14/23 spray aerosol rhinitis magnesium oxide 400 mg (241.3 mg 400 mg PO DAILY hypomagnesemia 03/06/23 06/14/23 magnesium) tablet peg [id number] 1 1 drp EACH EYE BID dry eyes 03/06/23 06/14/23 %-0.2 %-0.2 % eye drops (Artificial Tears ([id number])) polyethylene glycol 1 ea DIRECTED PRN Constipation 03/06/23 06/14/23 primidone 50 mg tablet 50 mg PO TID tremors 03/06/23 06/14/23 ropinirole 3 mg tablet 1 mg PO HS RLS 03/06/23 06/14/23 triamcinolone acetonide 0.1 % 1 applic topical BID dermatitis 03/06/23 06/14/23 topical cream glucagon 1 mg injection kit 1 mg subcut PRN PRN Hypoglycemia 04/17/23 06/14/23 insulin glargine 100 unit/mL (3 45 unit subcut QPM 04/17/23 06/14/23 mL) subcutaneous pen (Lantus Solostar U-100 Insulin) insulin lispro 100 unit/mL 1 sliding scale dose subcut 04/17/23 06/14/23 subcutaneous pen USEASDIRECTD insulin lispro 100 unit/mL 1 sliding scale dose subcut 04/17/23 06/14/23 subcutaneous pen (Humalog KwikPen USEASDIRECTD (U-100) Insulin) levetiracetam 750 mg tablet 750 mg PO BID 04/17/23
[2023-11-02 14:59] LABS: Alanine Aminotransferase 17 U/L (6-50); Albumin Level 3.7 g/dL (3.5-5.1); Alkaline Phosphatase 162 U/L (38-126); Anion Gap 9 mmol/L (8-16); Aspartate Amino Transferase 23 U/L (17-59); Bilirubin,Total 0.9 mg/dL (0.2-1.3); Blood Urea Nitrogen 29 mg/dL (9-20); Calcium 8.2 mg/dL (8.4-10.2); Carbon Dioxide 24 mmol/L (22-30); Chloride 105 mmol/L (98-107); Estimated Glomerular Filt Rate > 60; Glucose 128 mg/dL (65-110); Potassium 3.5 mmol/L (3.4-5.0); Sodium 138 mmol/L (137-145)
[2023-11-02 15:52] LABS: Influenza A QL RT-PCR Negative (Negative); Influenza B QL RT-PCR Negative (Negative); RSV RNA, RT-PCR Negative (Negative); SARS-CoV-2 RNA PCR Negative (Negative)
[2023-11-02 15:56] LABS: Appearance Urine Clear (Clear); Bacteria Urine None Seen /hpf; Bilirubin Urine Negative (Negative); Blood Urine Negative (Negative); Color Urine Yellow (Yellow); Glucose Urine UA 3+ mg/dL (Negative); Ketones Urine Negative (Negative); Leukocyte Esterase Ur Negative LEU/UL (Negative); Nitrate Urine Negative (Negative); Non Pathogenic Casts 0-2; Protein Urine 2+ mg/dL (Negative); RBC Urine 0-2 /hpf (0-2); Specific Grav Ur 1.012 (1.001-1.035); Squamous Epithelial Cell Urine None seen /hpf (Few); WBC Urine 0-5 /hpf
[2023-11-02 16:08] LABS: Add Urine Microscopic? YES
--- NOTE | 2023-11-02 18:35 | PC.NURSE ---
EMS here to transport to [place]
== END 2023-11-02 18:44 ==
PROVIDERS: Emergency Provider Emergency Medicine; PCP Family Medicine
DX: R56.9 Unspecified convulsions (principal); Z20.822 Contact with and (suspected) exposure to COVID-19; I13.0 Hypertensive heart and chronic kidney disease with heart failure and stage 1 through stage 4 chronic kidney disease, or unspecified chronic kidney disease; E11.22 Type 2 diabetes mellitus with diabetic chronic kidney disease; N18.30 Chronic kidney disease, stage 3 unspecified; I50.40 Unspecified combined systolic (congestive) and diastolic (congestive) heart failure; I25.10 Atherosclerotic heart disease of native coronary artery without angina pectoris; I69.954 Hemiplegia and hemiparesis following unspecified cerebrovascular disease affecting left non-dominant side; I25.5 Ischemic cardiomyopathy; I25.2 Old myocardial infarction; E78.5 Hyperlipidemia, unspecified; N40.0 Benign prostatic hyperplasia without lower urinary tract symptoms; H40.9 Unspecified glaucoma; M10.9 Gout, unspecified; Z87.891 Personal history of nicotine dependence; Z79.82 Long term (current) use of aspirin; Z79.4 Long term (current) use of insulin; Z79.85 Long-term (current) use of injectable non-insulin antidiabetic drugs; Z79.84 Long term (current) use of oral hypoglycemic drugs; R94.31 Abnormal electrocardiogram [ECG] [EKG]; I45.9 Conduction disorder, unspecified
CPT/HCPCS: 36415; 80053; 81001; 85025; 85055; 87637; 93005; 99283

== ENCOUNTER 2023-11-21 11:03 | Emergency (ER) | payer MEDICARE, MEDICAID, SELFPAY ==
[2023-11-21] VITALS (11 sets, daily range): BP systolic 102–136; BP diastolic 66–90; PULSE 72–82; RESP 12–20; TEMP 36.8; O2SAT 91–100
--- NOTE | ~2023-11-21 | XR_ITS ---
Portable chest x-ray Comparison: 05/15/2023 Clinical History: Syncope Findings: Small left pleural effusion present with probable rounded area of left basilar consolidati on. Right lung clear. Cardiomediastinal silhouette is stable. Bones and soft tissues are unremarkabl e. Impression: Rounded area of left basilar consolidation. Correlate for atelectasis, pneumonia, or possibly neoplas m. Consider repeat chest CT. Minimal left pleural effusion. Reviewed, dictated and finalized at location M. OR EMBEDDED SOFTWARE ENGINEER Impression: Rounded area of left basilar consolidation. Correlate for atelectasis, pneumoni a, or possibly neoplasm. Consider repeat chest CT. Minimal left pleural effusion.
--- NOTE | ~2023-11-21 | CT_ITS ---
EXAMINATION: CTA chest PE protocol DATE: 11/21/2023 12:22 INDICATION: Rounded area of left basilar atelectasis or consolidation versus lung mass on 11/21/2023 p ortable AP chest TECHNIQUE: Computed tomography angiography (CTA) of the chest was performed with 100 mL Omnipaque-350 intravenous contrast timed to evaluate the pulmonary arteries. Coronal maximum intensity projection 3D-reconstructions were created by the technologist. Automated exposure control and iterative reconst ruction technique were employed. Exam dose: 862.67 mGy-cm total exam DLP. COMPARISON: 11/21/2023 portable AP chest 07/05/2023 CT chest FINDINGS: There is diagnostic contrast enhancement of the pulmonary arteries and no evidence of pulmo nary embolism. There is cardiomegaly. There is some aortic valve calcification. Coronary artery calcifications. No thoracic aortic aneurysm. Mild prominence of the hilar and mediastinal lymph nodes, likely reactive. Chronic stable large semilunar-shaped area of soft tissue opacification without apparent contrast enh ancement in the posterolateral left lung base, left lower lobe, with occasional punctate calcificatio ns, not significantly changed since 07/05/2023, likely an area of chronic atelectasis, pulmonary conso lidation and/or fibrotic change. Pulmonary and pleural malignancy are less likely. There is old pulmonary granulomatous disease, with calcified left hilar nodes, calcified left upper l obe pulmonary granuloma. Normal morphology of the adrenal glands. Small sliding hiatal hernia. IMPRESSION: Stable left basilar lower lobe semilunar prominent soft tissue density, which may repres ent atelectasis, consolidation and/or fibrotic change; no significant change since 07/05/2023 Reviewed, dictated and finalized at [facility]. Reviewed, dictated and finalized at location B. STANT AT SURGERY IMPRESSION: Stable left basilar lower lobe semilunar prominent soft tissue den sity, which may represent atelectasis, consolidation and/or fibrotic change; no significant change since 07/05/2023
--- NOTE | 2023-11-21 11:07 | ECG_ITS ---
Measurements Intervals [place] Rate: 79 P: 51 WI: 143 QRS: -23 QRSD: 136 T: 120 QT: 435 QTc: 499 Interpretive Statements SINUS RHYTHM POSSIBLE LEFT ATRIAL ENLARGEMENT INTRAVENTRICULAR CONDUCTION DELAY ANTEROSEPTAL INFARCT, AGE INDETERMINATE INFERIOR INFARCT, AGE INDETERMINATE ST-T WAVE ABNORMALITY IN HIGH LATERAL LEADS- CONSIDER ISCHEMIA BASELINE ARTIFACT- I, II, AVR, AVL, AVF, V1, V5 ABNORMAL ECG COMPARED TO ECG 11/02/2023 13:52:08 NO SIGNIFICANT CHANGES Electronically Signed On 11-21-2023 11:22:20 ASSOCIATE SALES MANAGER by Valentín James D.O.
--- NOTE | 2023-11-21 11:10 | ED.GENADULT ---
HPI - General Adult General Chief complaint: Seizure Stated complaint: seizure-like activity per NH Time Seen by Provider: 11/21/23 11:08 History of Present Illness HPI narrative: Patient is a 63-year-old male with a known seizure disorder presents to the emergency department this morning after witnessed seizure at his rehab facility. Patient states that he has been at his rehab facility which was helping him with walking in physical therapy after he has had a sore on his foot repaired. Patient states that today at the facility he did have a seizure which was witnessed, patient leaned back into his wheelchair when this happened, denies falling or hitting his head. By the time patient presented to the emergency department he was back to his baseline and patient is currently alert and oriented and answers all my questions appropriately. Patient admits that he is currently on Keppra for his seizure disorder and has been taking it as prescribed. He follows up with a neurologist out of [facility]. Patient denies any symptoms at this time including chest pain, shortness of breath, nausea, vomiting, abdominal pain, dysuria, hematuria, constipation, diarrhea, melena, hematochezia, fevers or chills. Patient also denies any headaches, dizziness, lightheadedness, blurry visions, focal weakness, numbness and or tingling. There are no other modifying, alleviating, or precipitating factors at this time. Related Data Home Medications Medication Instructions Recorded Confirmed aspirin 81 mg tablet,delayed 81 mg PO DAILY heart disease 03/30/21 06/14/23 release atorvastatin 40 mg tablet 40 mg PO HS high cholesterol 03/30/21 06/14/23 biotin 5,000 mcg disintegrating 5,000 mcg PO DAILY supplement 03/30/21 06/14/23 tablet levothyroxine 137 mcg tablet 137 mcg PO QAM hypothyroidism 03/30/21 06/14/23 tamsulosin 0.4 mg capsule 0.8 mg PO HS benign prostatic 03/30/21 06/14/23 hyperplasia ascorbic acid (vitamin C) 500 mg 500 mg PO BID wound healing 01/18/22 06/14/23 capsule duloxetine 60 mg capsule,delayed 60 mg PO DAILY depression 01/18/22 06/14/23 release baclofen 5 mg tablet 5 mg PO TID pain 06/09/22 06/14/23 dulaglutide 0.75 mg/0.5 mL 0.75 mg subcut WEEKLY 06/09/22 06/14/23 subcutaneous pen injector (Trulicity) empagliflozin 25 mg tablet 25 mg PO DAILY type 2 diabetes 06/09/22 06/14/23 (Jardiance) ferrous gluconate 324 mg (38 mg 324 mg PO DAILY supplementation 06/09/22 06/14/23 iron) tablet ipratropium 0.5 mg-albuterol 3 mg 3 ml inhalation Q6H PRN Shortness 06/09/22 06/14/23 (2.5 mg base)/3 mL nebulization Of Breath soln latanoprost 0.005 % eye drops 1 drp EACH EYE HS glaucoma 06/09/22 06/14/23 multivitamin with minerals (Daily 1 tablet PO DAILY wound healing ##0 06/09/22 06/14/23 Multivitamin-Minerals tablet) potassium chloride 10 mEq 10 meq PO DAILY hypokalemia 06/09/22 06/14/23 capsule,extended release sodium phosphates 19 gram-7 118 ml RECTAL DAILY PRN 06/09/22 06/14/23 gram/118 mL enema (Fleet Enema) Constipation amlodipine 2.5 mg tablet 5 mg PO DAILY Hypertension 12/29/22 06/14/23 brimonidine 0.2 % eye drops 1 drp EACH EYE BID glaucoma 12/29/22 06/14/23 diclofenac sodium 1 % topical gel 1 ea topical Q6H PRN mild pain to 12/29/22 06/14/23 hips/legs Nystatin Powder 1 applic topical DIRECTED PRN 03/06/23 06/14/23 Rash acetaminophen 500 mg tablet 1,000 mg PO Q8H PRN Pain (Scale 03/06/23 06/14/23 (Acetaminophen Extra Strength) Score 4-6) azelastine 137 mcg (0.1 %) nasal 1 spray intranasal Q12H allergic 03/06/23 06/14/23 spray aerosol rhinitis magnesium oxide 400 mg (241.3 mg 400 mg PO DAILY hypomagnesemia 03/06/23 06/14/23 magnesium) tablet peg [id number] 1 1 drp EACH EYE BID dry eyes 03/06/23 06/14/23 %-0.2 %-0.2 % eye drops (Artificial Tears ([id number])) polyethylene glycol 1 ea DIRECTED PRN Constipation 03/06/23 06/14/23 primidone 50 mg tablet 50 mg PO TID tremors 05
[2023-11-21] MEDS: levETIRAcetam 1000MG/NACL100ML 1,000 MG/100 ML BAG 400 MG IVPB (11:13)
[2023-11-21 11:29] LABS: Basophils Absolute Auto 0.1 K/mm3 (0.0-0.1); Basophils Percent Auto 0.8 % (0.2-1.2); Eosinophils Absolute Auto 0.3 K/mm3 (0-0.3); Eosinophils Percent Auto 3.4 % (0-4.4); Hematocrit 44.5 % (42.0-52.0); Hemoglobin 14.1 g/dL (14.0-18.0); Immature Granulocyte Absolute 0.05 K/mm3 (0.00-0.031); Immature Granulocyte Percent A 0.7 % (0-0.5); Lymphocytes Absolute Auto 1.07 K/mm3 (0.9-3.2); Mean Corpuscular HGB Conc 31.7 g/dl (32-36); Mean Corpuscular Hemoglobin 30.3 pg (26-34); Mean Corpuscular Volume 95.7 fl (80-100); Mean Platelet Volume 11.2 fl (7.4-10.4); Monocytes Absolute Auto 0.7 K/mm3 (0.1-0.6); Monocytes Percent Auto 8.7 % (2.6-8.5); Neutrophils Absolute Auto 5.5 K/mm3 (1.3-6.7); Neutrophils Percent Auto 72.4 % (45.5-73.1); Platelet Count Result 147 k/mm3 (150-375); Red Blood Count 4.65 M/mm3 (4.6-6.20); Red Cell Distribution Width 15.9 % (11.5-14.5); White Blood Count 7.6 K/mm3 (4.5-10.0)
[2023-11-21 11:39] LABS: Creatine Kinase 53 U/L (55-170); Lactic Acid Reflex 2.2 mmol/L (0.7-2.0); Magnesium 2.2 mg/dL (1.6-2.3)
[2023-11-21 11:40] LABS: Alanine Aminotransferase 15 U/L (6-50); Alkaline Phosphatase 149 U/L (38-126); Anion Gap 12 mmol/L (8-16); Aspartate Amino Transferase 24 U/L (17-59); Bilirubin,Total 0.8 mg/dL (0.2-1.3); Blood Urea Nitrogen 28 mg/dL (9-20); Calcium 8.6 mg/dL (8.4-10.2); Carbon Dioxide 26 mmol/L (22-30); Chloride 103 mmol/L (98-107); Estimated CRCL calculation 76 ml/min; Estimated Glomerular Filt Rate > 60; Glucose 181 mg/dL (65-110); Potassium 3.9 mmol/L (3.4-5.0); Sodium 141 mmol/L (137-145)
[2023-11-21 12:25] LABS: INR 1.2; Partial Thromboplastin Time 38.3 SECONDS (22.3-36.8); Prothrombin Time 15.6 Seconds (11.1-14.7)
[2023-11-21] MEDS: SODIUM CHLORIDE 0.9% IV 1,000 ML 999 ML IV CONT (12:32)
[2023-11-21 14:24] LABS: Reflex Lactic Acid Yes or No Add Lactic
--- NOTE | 2023-11-21 14:42 | PC.NURSE ---
called house sup for house truck at [phone]
== END 2023-11-21 15:24 ==
PROVIDERS: Emergency Provider Emergency Medicine; PCP Family Medicine
DX: G40.909 Epilepsy, unspecified, not intractable, without status epilepticus (principal); I13.0 Hypertensive heart and chronic kidney disease with heart failure and stage 1 through stage 4 chronic kidney disease, or unspecified chronic kidney disease; E11.22 Type 2 diabetes mellitus with diabetic chronic kidney disease; N18.30 Chronic kidney disease, stage 3 unspecified; I50.9 Heart failure, unspecified; Z79.4 Long term (current) use of insulin; E03.9 Hypothyroidism, unspecified; F32.A Depression, unspecified; D64.9 Anemia, unspecified
CPT/HCPCS: 36415; 71045; 71275; 80053; 82550; 83605; 83735; 85025; 85610; 85730; 93005; 96361; 96374; 99284; J1953; J7030; Q9967

== ENCOUNTER 2023-11-27 09:54 | Observation (INO) | payer MEDICARE, MEDICAID, SELFPAY ==
[2023-11-27] VITALS (10 sets, daily range): BP systolic 123–141; BP diastolic 67–84; PULSE 64–70; RESP 15–18; TEMP 35.8–36.2; O2SAT 95–97
--- NOTE | ~2023-11-27 | US_ITS ---
EXAMINATION: US venous doppler [facility] DATE: 11/27/2023 20:14 INDICATION: Left lower limb swelling. TECHNIQUE: Grayscale ultrasound images without and with compression and Doppler ultrasound images of the left lower extremity veins were obtained. COMPARISON: None. FINDINGS: The visualized portions of left common femoral vein, profunda (deep) femoral vein, femoral vein, popl iteal vein, peroneal veins, posterior tibial veins, and greater saphenous vein outflow are patent. IMPRESSION: 1. No deep venous thrombosis. Reviewed, dictated and finalized at location E.
--- NOTE | ~2023-11-27 | XR_ITS ---
XR chest 2V 11/27/2023 10:53 Indication: Left upper chest pain Procedure: 2 view chest Comparison: Comparison to multiple prior studies sequentially, with oldest reviewed study dated 04/19. Findings: Status post median sternotomy for CABG. Cardiomegaly. There is patchy bilateral airspace di sease, compatible with pneumonia. Small left pleural effusion. No pneumothorax. Impression: 1: Patchy bilateral airspace disease, compatible with pneumonia. 2: Small left pleural effusion. Reviewed, dictated and finalized at location L. K MECHANIC Impression: 1: Patchy bilateral airspace disease, compatible with pneumonia. 2: Small left pleural effusion.
--- NOTE | 2023-11-27 10:01 | ECG_ITS ---
Measurements Intervals [place] Rate: 69 P: 45 VT: 204 QRS: -45 QRSD: 118 T: 122 QT: 437 QTc: 469 Interpretive Statements SINUS RHYTHM POSSIBLE LEFT ATRIAL ENLARGEMENT INTRAVENTRICULAR CONDUCTION DELAY LEFT VENTRICULAR HYPERTROPHY AND ST-T CHANGE INFERIOR INFARCT, AGE INDETERMINATE ANTEROLATERAL INFARCT, AGE INDETERMINATE BASELINE ARTIFACT- I, II, AVR, AVL ABNORMAL ECG COMPARED TO ECG 11/21/2023 11:10:57 LEFT VENTRICULAR HYPERTROPHY NOW PRESENT Electronically Signed On 11-27-2023 10:27:53 INSPECTOR POISING by Valentín James D.O.
[2023-11-27 12:26] LABS: Basophils Absolute Auto 0.1 K/mm3 (0.0-0.1); Basophils Percent Auto 0.9 % (0.2-1.2); Eosinophils Absolute Auto 0.3 K/mm3 (0-0.3); Eosinophils Percent Auto 3.3 % (0-4.4); Hematocrit 45.5 % (42.0-52.0); Hemoglobin 14.4 g/dL (14.0-18.0); Immature Granulocyte Absolute 0.07 K/mm3 (0.00-0.031); Immature Granulocyte Percent A 0.9 % (0-0.5); Lymphocytes Absolute Auto 0.99 K/mm3 (0.9-3.2); Lymphocytes Percent Auto 12.2 % (18.3-44.2); Mean Corpuscular HGB Conc 31.6 g/dl (32-36); Mean Corpuscular Hemoglobin 30.6 pg (26-34); Mean Corpuscular Volume 96.8 fl (80-100); Mean Platelet Volume 10.7 fl (7.4-10.4); Monocytes Absolute Auto 0.8 K/mm3 (0.1-0.6); Monocytes Percent Auto 9.6 % (2.6-8.5); Neutrophils Absolute Auto 5.9 K/mm3 (1.3-6.7); Neutrophils Percent Auto 73.1 % (45.5-73.1); Platelet Count Result 150 k/mm3 (150-375); Red Cell Distribution Width 15.7 % (11.5-14.5); White Blood Count 8.1 K/mm3 (4.5-10.0)
[2023-11-27 12:36] LABS: INR 1.2; Prothrombin Time 16.1 Seconds (11.1-14.7)
[2023-11-27 12:37] LABS: Partial Thromboplastin Time 40.2 SECONDS (22.3-36.8)
[2023-11-27 12:39] LABS: Alanine Aminotransferase 16 U/L (6-50); Alkaline Phosphatase 161 U/L (38-126); Anion Gap 10 mmol/L (8-16); Aspartate Amino Transferase 24 U/L (17-59); Bilirubin,Total 0.9 mg/dL (0.2-1.3); Blood Urea Nitrogen 30 mg/dL (9-20); Calcium 8.5 mg/dL (8.4-10.2); Carbon Dioxide 25 mmol/L (22-30); Chloride 104 mmol/L (98-107); Estimated CRCL calculation 80 ml/min; Estimated Glomerular Filt Rate > 60; Glucose 196 mg/dL (65-110); Lipase 330 U/L (23-300); Potassium 4.2 mmol/L (3.4-5.0); Sodium 139 mmol/L (137-145)
[2023-11-27 12:51] LABS: Troponin I < 0.012 ng/mL (0.000-0.034)
--- NOTE | 2023-11-27 12:53 | ED.GENADULT ---
HPI - General Adult General Chief complaint: Unspecified Stated complaint: left side pain Time Seen by Provider: 11/27/23 12:40 Source: patient Limitations: no limitations History of Present Illness HPI narrative: 63 yo with history of bypass surgery complicated by stroke resulting in left sided deficits and seizures presents from facility where he resides. Began having chest pain which he feels like is along his left superior anterior chest and radiating to his left axilla. No appreciable swelling. Has been working with PT to improve functionality in his left upper and lower extremity after stroke but otherwise no significant repetitive movements. Exposure to possible sick contacts given lives in a facility where several residence cough. Occasional cough for patient but denies fever. Related Data Home Medications Medication Instructions Recorded Confirmed aspirin 81 mg tablet,delayed 81 mg PO DAILY heart disease 03/30/21 11/27/23 release atorvastatin 40 mg tablet 40 mg PO HS high cholesterol 03/30/21 11/27/23 biotin 5,000 mcg disintegrating 5,000 mcg PO DAILY supplement 03/30/21 11/27/23 tablet levothyroxine 137 mcg tablet 137 mcg PO QAM hypothyroidism 03/30/21 11/27/23 tamsulosin 0.4 mg capsule 0.8 mg PO HS benign prostatic 03/30/21 11/27/23 hyperplasia ascorbic acid (vitamin C) 500 mg 500 mg PO BID wound healing 01/18/22 11/27/23 capsule duloxetine 60 mg capsule,delayed 60 mg PO DAILY depression 01/18/22 11/27/23 release baclofen 5 mg tablet 5 mg PO TID pain 06/09/22 11/27/23 dulaglutide 0.75 mg/0.5 mL 0.75 mg subcut WEEKLY 06/09/22 11/27/23 subcutaneous pen injector (Trulicity) empagliflozin 25 mg tablet 25 mg PO DAILY type 2 diabetes 06/09/22 11/27/23 (Jardiance) ferrous gluconate 324 mg (38 mg 324 mg PO DAILY supplementation 06/09/22 11/27/23 iron) tablet ipratropium 0.5 mg-albuterol 3 mg 3 ml inhalation Q6H PRN Shortness 06/09/22 11/27/23 (2.5 mg base)/3 mL nebulization Of Breath soln latanoprost 0.005 % eye drops 1 drp EACH EYE HS glaucoma 06/09/22 11/27/23 multivitamin with minerals (Daily 1 tablet PO DAILY wound healing ##0 06/09/22 11/27/23 Multivitamin-Minerals tablet) potassium chloride 10 mEq 10 meq PO DAILY hypokalemia 06/09/22 11/27/23 capsule,extended release sodium phosphates 19 gram-7 118 ml RECTAL DAILY PRN 06/09/22 11/27/23 gram/118 mL enema (Fleet Enema) Constipation amlodipine 2.5 mg tablet 5 mg PO DAILY Hypertension 12/29/22 11/27/23 brimonidine 0.2 % eye drops 1 drp EACH EYE BID glaucoma 12/29/22 11/27/23 diclofenac sodium 1 % topical gel 1 ea topical Q6H PRN mild pain to 12/29/22 11/27/23 hips/legs Nystatin Powder 1 applic topical DIRECTED PRN 03/06/23 11/27/23 Rash acetaminophen 500 mg tablet 1,000 mg PO Q8H PRN Pain (Scale 03/06/23 11/27/23 (Acetaminophen Extra Strength) Score 4-6) azelastine 137 mcg (0.1 %) nasal 1 spray intranasal Q12H allergic 03/06/23 11/27/23 spray aerosol rhinitis magnesium oxide 400 mg (241.3 mg 400 mg PO DAILY hypomagnesemia 03/06/23 11/27/23 magnesium) tablet peg [id number] 1 1 drp EACH EYE BID dry eyes 03/06/23 11/27/23 %-0.2 %-0.2 % eye drops (Artificial Tears ([id number])) polyethylene glycol 1 ea DIRECTED PRN Constipation 03/06/23 11/27/23 primidone 50 mg tablet 50 mg PO TID tremors 03/06/23 11/27/23 triamcinolone acetonide 0.1 % 1 applic topical BID dermatitis 03/06/23 11/27/23 topical cream glucagon 1 mg injection kit 1 mg subcut PRN PRN Hypoglycemia 04/17/23 11/27/23 insulin glargine 100 unit/mL (3 10 unit subcut QPM 04/17/23 11/27/23 mL) subcutaneous pen (Lantus Solostar U-100 Insulin) insulin lispro 100 unit/mL 3 sliding scale dose subcut TID 04/17/23 11/27/23 subcutaneous pen insulin lispro 100 unit/mL 1 sliding scale dose subcut 04/17/23 11/27/23 subcutaneous pen (Humalog KwikPen USEASDIRECTD (U-100) Insulin) levetiracetam 750 mg tablet 500 mg PO BID 04/17/23 11/27/23
--- NOTE | 2023-11-27 13:47 | PC.NURSE ---
No blood cultures needed per EDP
[2023-11-27] MEDS: DOXYCYCLINE 100 MG/NS 100 ML 100 MG/100 ML BAG IVPB ×2 (14:23→23:10)
--- NOTE | 2023-11-27 15:40 | PM.IMHP ---
H&P: HPI History of Present Illness Date/Time: 11/27/23 18:00 Chief Complaint: Left upper chest and arm pain. Narrative: This is a 63-year-old male with coronary artery disease status post CABG, ischemic cardiomyopathy with an EF of 20 to 25% in May 2023, reduced right ventricular systolic function, pulmonary hypertension, hypertension, insulin-dependent diabetes mellitus, stroke, seizures, and other comorbidities who presented to the emergency department via EMS from a nursing facility for evaluation of left upper chest and arm pain. The patient provides the following history. Today he was experiencing sharp pain in the left upper ribs near mid axillary line radiating to the left axilla and left biceps. It is perhaps a bit worse with palpation and sometimes movement but not always. It is not pleuritic in nature. He has not had any recent falls or injuries to the area. He does note however that he is currently undergoing rehab after a pretty lengthy treatment for a left heel wound. He is learning to walk again and he has noticed that he is getting short of breath with that activity although he does admit that he has been deconditioned. Because of his cardiac history he was sent in for evaluation. His vital signs were stable on arrival to the ED. Initial troponin was negative and EKG did not show any ST segment elevations or depressions. Chest x-ray showed patchy bilateral airspace disease compatible with pneumonia and I was asked to admit the patient in this setting. With further questioning he has had congestion, postnasal drip, and cough though it is rarely productive. It should be noted that he was seen in the ED 1 week ago with seizure-like activity and a CTA of the chest at that time showed stable findings at the left base which may represent atelectasis, consolidation, and/or fibrotic change. No evidence of pulmonary embolism was noted. At the time my evaluation he is resting comfortably and is not having any chest pain. Review of Systems Review of Systems: Twelve systems were reviewed. No fever, chills, or sweats. He denies sore throat. He has mild lower extremity edema, left greater than right. Reports history of DVT. No calf pain or tenderness. Except as documented, all other systems were reviewed and are negative. [facility] Past Medical History Medical History Benign prostatic hyperplasia Cerebrovascular accident Chronic anemia (01/2019) Post CABG right parietal infarction resultant hemiplegia. Chronic kidney disease, stage 3 Chronic systolic right heart failure Combined systolic and diastolic congestive heart failure Coronary artery disease Status post three-vessel bypass and left ventricular aneurysm repair in February 2019 at [facility]. 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 Myocardial infarction (01/2019) Late presentation [facility] found to have severe three-vessel disease, transferred to [facility] for emergent bypass with perioperative ventricular fibrillation arrest. Pulmonary hypertension Seizure disorder Surgical History Surgical History History of cardiac catheterization History of coronary artery bypass graft (~02/2019) Three-vessel bypass and surgical repair of left ventricular aneurysm at [facility]. History of fusion of cervical spine Family History Family History Mother Patient's mother is Hypertension Father Patient's father is Malignant neoplasm of prostate Social History Social History Social History: Healthcare power of patent attorney: Blanquita Ann, .
--- NOTE | 2023-11-27 15:41 | ADMGEN ---
This patient, Bayron Ann, was admitted to [facility] Surg Room 325-01. Patient/family oriented to hospital policies and general routines including ID bracelet, bed and alarms, visiting hours, pain management, procedures, bathroom and other care routines, personal items, smoking policy, room service/diet, and visiting hours. Information on how to activate the Rapid Response Team has been discussed. Patient/Family are encouraged to report perceived risks to care and to ask questions if they do not understand what they are told or what they should do.
[2023-11-27 16:37] LABS: Influenza A QL RT-PCR Negative (Negative); Influenza B QL RT-PCR Negative (Negative); RSV RNA, RT-PCR Negative (Negative); SARS-CoV-2 RNA PCR Negative (Negative)
[2023-11-27 16:42] LABS: Troponin I < 0.012 ng/mL (0.000-0.034)
[2023-11-27 17:16] LABS: Glucose Point of Care 188 mg/dl (65-105)
[2023-11-27 19:03] LABS: Troponin I < 0.012 ng/mL (0.000-0.034)
[2023-11-27 20:24] LABS: Glucose Point of Care 184 mg/dl (65-105)
[2023-11-27 21:40] LABS: Hemoglobin A1C 7.9 % (<5.7)
[2023-11-27] MEDS: ATORVASTATIN 40 MG TABLET PO (22:50)
[2023-11-27] MEDS: AZELASTINE HCL NASAL 0.1% 137 MCG/SPR 30 ML BTL 1 SPRAY NASAL (22:50)
[2023-11-27] MEDS: levETIRAcetam 500 MG TABLET PO (22:50)
[2023-11-27] MEDS: ZINC SULFATE 220 MG CAPSULE PO (22:51)
[2023-11-27] MEDS: TAMSULOSIN HCL 0.4 MG CAPSULE 0.8 MG PO (22:51)
[2023-11-27] MEDS: TRIAMCINOLONE ACET 0.1% CREAM 15 GM TUBE 1 APPLIC TOPICAL (22:51)
[2023-11-27] MEDS: ARTIFICIAL TEARS OPHTH SOLN 15 ML BOTTLE 1 DROP EACH EYE (22:52)
[2023-11-27] MEDS: INSULIN GLARGINE (*BKC) 100 UNITS/ML 10 UNITS SUB-Q (22:59)
[2023-11-27] MEDS: traMADol HCL (*CRX) 50 MG TABLET 100 MG PO (23:09)
[2023-11-27] MEDS: PREGABALIN (*CRX) 75 MG CAPSULE PO (23:09)
[2023-11-27] MEDS: BACLOFEN 5 MG TABLET PO (23:10)
[2023-11-27] MEDS: BRIMONIDINE TARTRATE 0.2% OP SOLN 5 ML BTL 1 DROP EACH EYE (23:10)
[2023-11-28] VITALS (11 sets, daily range): BP systolic 106–120; BP diastolic 55–75; PULSE 63–89; RESP 13–16; TEMP 35.9–36.6; O2SAT 90–95
[2023-11-28] MEDS: LEVOTHYROXINE SODIUM 25 MCG TABLET PO (06:24)
[2023-11-28] MEDS: LEVOTHYROXINE SODIUM 112 MCG TABLET PO (06:24)
[2023-11-28 06:28] LABS: Hemoglobin 13.4 g/dL (14.0-18.0); Immature Platelet Fraction Pct 4.9 % (0.9-11.2); Mean Corpuscular HGB Conc 31.2 g/dl (32-36); Mean Corpuscular Hemoglobin 30.6 pg (26-34); Mean Corpuscular Volume 98.2 fl (80-100); Mean Platelet Volume 10.9 fl (7.4-10.4); Platelet Count Result 120 k/mm3 (150-375); Red Blood Count 4.38 M/mm3 (4.6-6.20); Red Cell Distribution Width 15.5 % (11.5-14.5)
[2023-11-28 06:50] LABS: Anion Gap 5 mmol/L (8-16); Blood Urea Nitrogen 28 mg/dL (9-20); CRP 1.3 mg/dL (<1.0); Calcium 8.2 mg/dL (8.4-10.2); Carbon Dioxide 30 mmol/L (22-30); Chloride 102 mmol/L (98-107); Estimated CRCL calculation 71 ml/min; Estimated Glomerular Filt Rate > 60; Glucose 111 mg/dL (65-110); Magnesium 2.2 mg/dL (1.6-2.3); Sodium 137 mmol/L (137-145)
[2023-11-28 07:08] LABS: Procalcitonin 0.1 ng/mL
[2023-11-28 07:26] LABS: Glucose Point of Care 235 mg/dl (65-105)
[2023-11-28 07:42] LABS: Thyroid Stimulating Hormone Reflex 0.551 uIU/mL (0.465-4.68)
[2023-11-28] MEDS: INSULIN ASPART (*BKC) 100 UNITS/ML SUB-Q ×5 (08:28→16:52)
[2023-11-28] MEDS: EMPAGLIFLOZIN 25 MG TABLET PO (08:30)
[2023-11-28] MEDS: PREGABALIN (*CRX) 75 MG CAPSULE PO ×2 (08:30→20:38)
[2023-11-28] MEDS: ASPIRIN 81 MG ENTERIC TABLET PO (08:30)
[2023-11-28] MEDS: POTASSIUM CHLORIDE 10 MEQ ER TABLET PO (08:30)
[2023-11-28] MEDS: PANTOPRAZOLE 40 MG TABLET PO (08:30)
[2023-11-28] MEDS: ASCORBIC ACID 500 MG TABLET PO ×2 (08:30→16:31)
[2023-11-28] MEDS: MAGNESIUM OXIDE 400 MG TABLET PO (08:31)
[2023-11-28] MEDS: amLODIPine BESYLATE 5 MG TABLET PO (08:31)
[2023-11-28] MEDS: THERAPEUTIC MULTIVITAMINS/MINERALS TAB (*BKC) 1 TABLET PO (08:31)
[2023-11-28] MEDS: METOPROLOL SUCCINATE EXT REL 25 MG TABCR PO (08:31)
[2023-11-28] MEDS: FUROSEMIDE 40 MG TABLET PO ×2 (08:31→16:32)
[2023-11-28] MEDS: DULoxetine HCL 60 MG CAPSULE.DR PO (08:31)
[2023-11-28] MEDS: FERROUS GLUCONATE 324 MG TABLET PO (08:31)
[2023-11-28] MEDS: levETIRAcetam 500 MG TABLET PO ×2 (08:31→20:38)
[2023-11-28] MEDS: ARTIFICIAL TEARS OPHTH SOLN 15 ML BOTTLE 1 DROP EACH EYE ×2 (08:35→20:39)
[2023-11-28] MEDS: AZELASTINE HCL NASAL 0.1% 137 MCG/SPR 30 ML BTL 1 SPRAY NASAL ×2 (08:36→20:39)
[2023-11-28] MEDS: MICONAZOLE NITRATE 2% CREAM 30 GM TUBE 1 APPLIC TOPICAL ×2 (08:43→20:37)
[2023-11-28] MEDS: BRIMONIDINE TARTRATE 0.2% OP SOLN 5 ML BTL 1 DROP EACH EYE ×2 (08:43→20:39)
[2023-11-28] MEDS: TOLNAFTATE 1% POWDER 45 GM BTL 1 APPLIC TOPICAL ×2 (08:44→20:40)
[2023-11-28] MEDS: BACLOFEN 5 MG TABLET PO ×3 (08:52→23:44)
[2023-11-28] MEDS: PRIMIDONE 50 MG TABLET PO ×3 (08:53→16:32)
[2023-11-28] MEDS: TRIAMCINOLONE ACET 0.1% CREAM 15 GM TUBE 1 APPLIC TOPICAL ×2 (08:54→20:41)
[2023-11-28] MEDS: ENOXAPARIN 40 MG/0.4 ML SYRINGE SUB-Q (09:01)
[2023-11-28] MEDS: traMADol HCL (*CRX) 50 MG TABLET 100 MG PO (09:56)
[2023-11-28 11:44] LABS: Glucose Point of Care 209 mg/dl (65-105)
[2023-11-28] MEDS: DOXYCYCLINE 100 MG/NS 100 ML 100 MG/100 ML BAG IVPB ×2 (11:56→23:44)
--- NOTE | 2023-11-28 16:13 | PM.IMPN ---
Progress Note: A&P Assessment and Plan (1) Pneumonia: Code(s): J18.9 - Pneumonia, unspecified organism Status: Acute Assessment and Plan: Chest x-ray showed patchy bilateral airspace opacities compatible with pneumonia. Continue doxycycline and ceftriaxone. . (2) Left-sided chest pain: Code(s): R07.9 - Chest pain, unspecified Status: Acute Assessment and Plan: Patient presented with left-sided chest pain as detailed in HPI. Likely relate underlying pneumonia or musculoskeletal component. Acute coronary syndrome seems unlikely and troponins have been negative. Chest CTA 1 week ago was negative for PE and that seems unlikely. (3) Elevated lipase: Code(s): R74.8 - Abnormal levels of other serum enzymes Status: Acute Assessment and Plan: Lipase is mildly elevated and his abdominal exam is benign. Repeat in a.m. and continue serial abdominal exams. (4) Heart failure with reduced ejection fraction: Code(s): I50.20 - Unspecified systolic (congestive) heart failure Status: Acute Assessment and Plan: Appears clinically compensated. Continue furosemide, metoprolol, empagliflozin, aspirin, atorvastatin. (5) Insulin dependent diabetes mellitus: Status: Chronic Assessment and Plan: Continue basal insulin. Initiate sliding scale insulin, Accu-Cheks, and hypoglycemic protocol. Check hemoglobin A1c. (6) Hypothyroidism: Qualifiers: Hypothyroidism type: unspecified Qualified Code(s): E03.9 - Hypothyroidism, unspecified Code(s): E03.9 - Hypothyroidism, unspecified Status: Chronic Assessment and Plan: Continue levothyroxine and check TSH. (7) Seizure disorder: Code(s): G40.909 - Epilepsy, unspecified, not intractable, without status epilepticus Status: Acute Assessment and Plan: Continue levetiracetam. Subjective Date/time seen: 11/28/23 16:13 Interval history: 63-year-old male with coronary artery disease status post CABG, ischemic cardiomyopathy with an EF of 20 to 25% in May 2023, reduced right ventricular systolic function, pulmonary hypertension, hypertension, insulin-dependent diabetes mellitus, stroke, seizures, and other comorbidities who presented to the emergency department via EMS from a nursing facility for evaluation of left upper chest and arm pain. The patient provides the following history. Today he was experiencing sharp pain in the left upper ribs near mid axillary line radiating to the left axilla and left biceps. It is perhaps a bit worse with palpation and sometimes movement but not always. It is not pleuritic in nature. He has not had any recent falls or injuries to the area. He does note however that he is currently undergoing rehab after a pretty lengthy treatment for a left heel wound. He is learning to walk again and he has noticed that he is getting short of breath with that activity although he does admit that he has been deconditioned. Because of his cardiac history he was sent in for evaluation. His vital signs were stable on arrival to the ED. Initial troponin was negative and EKG did not show any ST segment elevations or depressions. Chest x-ray showed patchy bilateral airspace disease compatible with pneumonia and I was asked to admit the patient in this setting. Review of Systems Review of Systems: some chest discomfort left sided Exam Narrative: General:?Well-developed, nontoxic-appearing male sitting up in bed. Neck:??Supple. Respiratory:?Respirations are nonlabored. Lung sounds are coarse at the bases. Cardiovascular:??Regular rate and rhythm with S1-S2.?Systolic murmur at the left sternal border. Gastrointestinal:??Abdomen is soft, nontender, and nondistended with positive bowel sounds. Skin:??Warm and dry.?Chronic skin changes of the lower legs bilaterally. Extremities:??No cyanosis or clubbing. He has trace edema of the right lowe
[2023-11-28 16:23] LABS: Glucose Point of Care 145 mg/dl (65-105)
[2023-11-28] MEDS: INSULIN GLARGINE (*BKC) 100 UNITS/ML 10 UNITS SUB-Q (17:29)
[2023-11-28 20:32] LABS: Glucose Point of Care 170 mg/dl (65-105)
[2023-11-28] MEDS: ATORVASTATIN 40 MG TABLET PO (20:38)
[2023-11-28] MEDS: ZINC SULFATE 220 MG CAPSULE PO (20:38)
[2023-11-28] MEDS: TAMSULOSIN HCL 0.4 MG CAPSULE 0.8 MG PO (20:38)
[2023-11-28] MEDS: LATANOPROST 0.005% OP SOLN 2.5 ML BTL 1 DROP EACH EYE (20:40)
[2023-11-29] VITALS (11 sets, daily range): BP systolic 103–138; BP diastolic 56–97; PULSE 62–72; RESP 14–18; TEMP 36.1–36.5; O2SAT 94–96
[2023-11-29] MEDS: LEVOTHYROXINE SODIUM 25 MCG TABLET PO (05:53)
[2023-11-29] MEDS: LEVOTHYROXINE SODIUM 112 MCG TABLET PO (05:53)
[2023-11-29 06:31] LABS: Hematocrit 45.3 % (42.0-52.0); Immature Platelet Fraction Pct 4.8 % (0.9-11.2); Mean Corpuscular HGB Conc 30.9 g/dl (32-36); Mean Corpuscular Hemoglobin 30.3 pg (26-34); Mean Corpuscular Volume 98.1 fl (80-100); Mean Platelet Volume 11.4 fl (7.4-10.4); Platelet Count Result 117 k/mm3 (150-375); Red Blood Count 4.62 M/mm3 (4.6-6.20); Red Cell Distribution Width 15.7 % (11.5-14.5); White Blood Count 6.6 K/mm3 (4.5-10.0)
[2023-11-29 06:41] LABS: Anion Gap 10 mmol/L (8-16); Blood Urea Nitrogen 32 mg/dL (9-20); Calcium 8.6 mg/dL (8.4-10.2); Carbon Dioxide 23 mmol/L (22-30); Chloride 105 mmol/L (98-107); Estimated CRCL calculation 78 ml/min; Estimated Glomerular Filt Rate > 60; Glucose 110 mg/dL (65-110); Sodium 138 mmol/L (137-145)
[2023-11-29 08:08] LABS: Glucose Point of Care 100 mg/dl (65-105)
[2023-11-29] MEDS: INSULIN ASPART (*BKC) 100 UNITS/ML SUB-Q ×4 (08:34→17:09)
[2023-11-29] MEDS: traMADol HCL (*CRX) 50 MG TABLET 100 MG PO (08:36)
[2023-11-29] MEDS: ENOXAPARIN 40 MG/0.4 ML SYRINGE SUB-Q (08:37)
[2023-11-29] MEDS: PANTOPRAZOLE 40 MG TABLET PO (08:38)
[2023-11-29] MEDS: PRIMIDONE 50 MG TABLET PO ×3 (08:38→17:08)
[2023-11-29] MEDS: POTASSIUM CHLORIDE 10 MEQ ER TABLET PO (08:38)
[2023-11-29] MEDS: PREGABALIN (*CRX) 75 MG CAPSULE PO ×2 (08:38→20:52)
[2023-11-29] MEDS: FERROUS GLUCONATE 324 MG TABLET PO (08:38)
[2023-11-29] MEDS: MAGNESIUM OXIDE 400 MG TABLET PO (08:38)
[2023-11-29] MEDS: ASCORBIC ACID 500 MG TABLET PO ×2 (08:38→17:08)
[2023-11-29] MEDS: ASPIRIN 81 MG ENTERIC TABLET PO (08:38)
[2023-11-29] MEDS: EMPAGLIFLOZIN 25 MG TABLET PO (08:38)
[2023-11-29] MEDS: FUROSEMIDE 40 MG TABLET PO ×2 (08:38→17:08)
[2023-11-29] MEDS: BACLOFEN 5 MG TABLET PO ×2 (08:38→17:14)
[2023-11-29] MEDS: levETIRAcetam 500 MG TABLET PO ×2 (08:38→20:52)
[2023-11-29] MEDS: amLODIPine BESYLATE 5 MG TABLET PO (08:39)
[2023-11-29] MEDS: METOPROLOL SUCCINATE EXT REL 25 MG TABCR PO (08:39)
[2023-11-29] MEDS: THERAPEUTIC MULTIVITAMINS/MINERALS TAB (*BKC) 1 TABLET PO (08:39)
[2023-11-29] MEDS: DULoxetine HCL 60 MG CAPSULE.DR PO (08:39)
[2023-11-29] MEDS: AZELASTINE HCL NASAL 0.1% 137 MCG/SPR 30 ML BTL 1 SPRAY NASAL ×2 (08:44→20:53)
[2023-11-29] MEDS: TOLNAFTATE 1% POWDER 45 GM BTL 1 APPLIC TOPICAL ×2 (08:44→20:51)
[2023-11-29] MEDS: ARTIFICIAL TEARS OPHTH SOLN 15 ML BOTTLE 1 DROP EACH EYE ×2 (08:44→20:55)
[2023-11-29] MEDS: BRIMONIDINE TARTRATE 0.2% OP SOLN 5 ML BTL 1 DROP EACH EYE ×2 (08:44→20:54)
[2023-11-29] MEDS: TRIAMCINOLONE ACET 0.1% CREAM 15 GM TUBE 1 APPLIC TOPICAL ×2 (08:45→20:53)
[2023-11-29] MEDS: MICONAZOLE NITRATE 2% CREAM 30 GM TUBE 1 APPLIC TOPICAL ×2 (09:41→20:54)
[2023-11-29 11:23] LABS: Glucose Point of Care 194 mg/dl (65-105)
[2023-11-29] MEDS: DOXYCYCLINE 100 MG/NS 100 ML 100 MG/100 ML BAG IVPB (12:18)
[2023-11-29 12:28] LABS: Mycoplasma IgM Antibody Titer 117 U/mL (<770)
--- NOTE | 2023-11-29 13:32 | PM.IMPN ---
Progress Note: A&P Assessment and Plan (1) Pneumonia: Code(s): J18.9 - Pneumonia, unspecified organism Status: Acute Assessment and Plan: Chest x-ray showed patchy bilateral airspace opacities compatible with pneumonia. Continue doxycycline and ceftriaxone. . (2) Left-sided chest pain: Code(s): R07.9 - Chest pain, unspecified Status: Acute Assessment and Plan: Patient presented with left-sided chest pain as detailed in HPI. Likely relate underlying pneumonia or musculoskeletal component. Acute coronary syndrome seems unlikely and troponins have been negative. Chest CTA 1 week ago was negative for PE and that seems unlikely. (3) Elevated lipase: Code(s): R74.8 - Abnormal levels of other serum enzymes Status: Acute Assessment and Plan: Lipase is mildly elevated and his abdominal exam is benign. Repeat in a.m. and continue serial abdominal exams. (4) Heart failure with reduced ejection fraction: Code(s): I50.20 - Unspecified systolic (congestive) heart failure Status: Acute Assessment and Plan: Appears clinically compensated. Continue furosemide, metoprolol, empagliflozin, aspirin, atorvastatin. (5) Insulin dependent diabetes mellitus: Status: Chronic Assessment and Plan: Continue basal insulin. Initiate sliding scale insulin, Accu-Cheks, and hypoglycemic protocol. Check hemoglobin A1c. (6) Hypothyroidism: Qualifiers: Hypothyroidism type: unspecified Qualified Code(s): E03.9 - Hypothyroidism, unspecified Code(s): E03.9 - Hypothyroidism, unspecified Status: Chronic Assessment and Plan: Continue levothyroxine and check TSH. (7) Seizure disorder: Code(s): G40.909 - Epilepsy, unspecified, not intractable, without status epilepticus Status: Acute Assessment and Plan: Continue levetiracetam. Plan L sided chest pain start lidoderm patch Subjective Date/time seen: 11/29/23 13:32 Interval history: 63-year-old male with coronary artery disease status post CABG, ischemic cardiomyopathy with an EF of 20 to 25% in May 2023, reduced right ventricular systolic function, pulmonary hypertension, hypertension, insulin-dependent diabetes mellitus, stroke, seizures, and other comorbidities who presented to the emergency department via EMS from a nursing facility for evaluation of left upper chest and arm pain. The patient provides the following history. Today he was experiencing sharp pain in the left upper ribs near mid axillary line radiating to the left axilla and left biceps. It is perhaps a bit worse with palpation and sometimes movement but not always. It is not pleuritic in nature. He has not had any recent falls or injuries to the area. He does note however that he is currently undergoing rehab after a pretty lengthy treatment for a left heel wound. He is learning to walk again and he has noticed that he is getting short of breath with that activity although he does admit that he has been deconditioned. Because of his cardiac history he was sent in for evaluation. His vital signs were stable on arrival to the ED. Initial troponin was negative and EKG did not show any ST segment elevations or depressions. Chest x-ray showed patchy bilateral airspace disease compatible with pneumonia and I was asked to admit the patient in this setting. Pt still complaining of left sided chest pains ? secondary from pneumonia cxr shows - Patchy bilateral airspace disease, compatible with pneumonia. 2:? Small left pleural effusion. Pt had ct chest from 11/21 showing - Stable left basilar lower lobe semilunar prominent soft tissue density, which may represent atelectasis, consolidation and/or fibrotic change; no significant change since 07/05/2023 Review of Systems Review of Systems: L sided chest pains Exam Narrative: General:?Well-developed, nontoxic-appearing male sitting up
[2023-11-29] MEDS: LIDOCAINE 5% PATCH 1 PATCH TRANSDERM (14:27)
[2023-11-29 16:35] LABS: Glucose Point of Care 220 mg/dl (65-105)
[2023-11-29] MEDS: INSULIN GLARGINE (*BKC) 100 UNITS/ML 10 UNITS SUB-Q (17:15)
[2023-11-29] MEDS: TAMSULOSIN HCL 0.4 MG CAPSULE 0.8 MG PO (20:51)
[2023-11-29] MEDS: ZINC SULFATE 220 MG CAPSULE PO (20:52)
[2023-11-29] MEDS: ATORVASTATIN 40 MG TABLET PO (20:52)
[2023-11-29] MEDS: LATANOPROST 0.005% OP SOLN 2.5 ML BTL 1 DROP EACH EYE (20:56)
[2023-11-29 21:36] LABS: Glucose Point of Care 132 mg/dl (65-105)
[2023-11-29 22:14] LABS: Pneumococcal Antigen Urine Not Detected (Not Detected)
[2023-11-30] VITALS (10 sets, daily range): BP systolic 110–125; BP diastolic 65–71; PULSE 59–70; RESP 14–15; TEMP 36.1–36.6; O2SAT 93–98
[2023-11-30] MEDS: BACLOFEN 5 MG TABLET PO ×3 (00:49→16:56)
[2023-11-30] MEDS: DOXYCYCLINE 100 MG/NS 100 ML 100 MG/100 ML BAG IVPB ×2 (00:49→12:27)
[2023-11-30 06:18] LABS: Hematocrit 44.4 % (42.0-52.0); Hemoglobin 14.1 g/dL (14.0-18.0); Immature Platelet Fraction Pct 5.6 % (0.9-11.2); Mean Corpuscular HGB Conc 31.8 g/dl (32-36); Mean Corpuscular Hemoglobin 30.6 pg (26-34); Mean Corpuscular Volume 96.3 fl (80-100); Mean Platelet Volume 11.5 fl (7.4-10.4); Platelet Count Result 113 k/mm3 (150-375); Red Blood Count 4.61 M/mm3 (4.6-6.20); Red Cell Distribution Width 15.6 % (11.5-14.5)
[2023-11-30] MEDS: LEVOTHYROXINE SODIUM 25 MCG TABLET PO (06:28)
[2023-11-30] MEDS: LEVOTHYROXINE SODIUM 112 MCG TABLET PO (06:28)
[2023-11-30 06:34] LABS: Anion Gap 10 mmol/L (8-16); Blood Urea Nitrogen 33 mg/dL (9-20); Calcium 8.7 mg/dL (8.4-10.2); Carbon Dioxide 23 mmol/L (22-30); Chloride 105 mmol/L (98-107); Estimated CRCL calculation 71 ml/min; Estimated Glomerular Filt Rate > 60; Glucose 118 mg/dL (65-110); Potassium 3.9 mmol/L (3.4-5.0); Sodium 138 mmol/L (137-145)
[2023-11-30 07:43] LABS: Glucose Point of Care 124 mg/dl (65-105)
[2023-11-30] MEDS: THERAPEUTIC MULTIVITAMINS/MINERALS TAB (*BKC) 1 TABLET PO (09:26)
[2023-11-30] MEDS: EMPAGLIFLOZIN 25 MG TABLET PO (09:26)
[2023-11-30] MEDS: FUROSEMIDE 40 MG TABLET PO ×2 (09:26→16:54)
[2023-11-30] MEDS: METOPROLOL SUCCINATE EXT REL 25 MG TABCR PO (09:26)
[2023-11-30] MEDS: levETIRAcetam 500 MG TABLET PO ×2 (09:26→21:05)
[2023-11-30] MEDS: ASCORBIC ACID 500 MG TABLET PO ×2 (09:26→16:54)
[2023-11-30] MEDS: PANTOPRAZOLE 40 MG TABLET PO (09:26)
[2023-11-30] MEDS: FERROUS GLUCONATE 324 MG TABLET PO (09:26)
[2023-11-30] MEDS: PRIMIDONE 50 MG TABLET PO ×3 (09:27→16:54)
[2023-11-30] MEDS: PREGABALIN (*CRX) 75 MG CAPSULE PO ×2 (09:27→21:05)
[2023-11-30] MEDS: amLODIPine BESYLATE 5 MG TABLET PO (09:27)
[2023-11-30] MEDS: POTASSIUM CHLORIDE 10 MEQ ER TABLET PO (09:27)
[2023-11-30] MEDS: MAGNESIUM OXIDE 400 MG TABLET PO (09:27)
[2023-11-30] MEDS: ASPIRIN 81 MG ENTERIC TABLET PO (09:27)
[2023-11-30] MEDS: DULoxetine HCL 60 MG CAPSULE.DR PO (09:27)
[2023-11-30] MEDS: LIDOCAINE 5% PATCH 1 PATCH TRANSDERM (09:28)
[2023-11-30] MEDS: ENOXAPARIN 40 MG/0.4 ML SYRINGE SUB-Q (09:28)
[2023-11-30] MEDS: TOLNAFTATE 1% POWDER 45 GM BTL 1 APPLIC TOPICAL ×2 (09:29→21:05)
[2023-11-30] MEDS: BRIMONIDINE TARTRATE 0.2% OP SOLN 5 ML BTL 1 DROP EACH EYE ×2 (09:30→21:05)
[2023-11-30] MEDS: TRIAMCINOLONE ACET 0.1% CREAM 15 GM TUBE 1 APPLIC TOPICAL ×2 (09:30→21:05)
[2023-11-30] MEDS: AZELASTINE HCL NASAL 0.1% 137 MCG/SPR 30 ML BTL 1 SPRAY NASAL (09:30)
[2023-11-30] MEDS: MICONAZOLE NITRATE 2% CREAM 30 GM TUBE 1 APPLIC TOPICAL ×2 (09:31→21:04)
[2023-11-30] MEDS: ARTIFICIAL TEARS OPHTH SOLN 15 ML BOTTLE 1 DROP EACH EYE ×2 (09:31→21:04)
[2023-11-30] MEDS: INSULIN ASPART (*BKC) 100 UNITS/ML SUB-Q ×4 (09:32→21:05)
[2023-11-30 11:40] LABS: Glucose Point of Care 183 mg/dl (65-105)
[2023-11-30] MEDS: AMOXICILLIN/CLAVULANATE K 875-125 MG TAB 1 TABLET PO ×2 (13:17→21:04)
[2023-11-30] MEDS: DOXYCYCLINE HYCLATE 100 MG TABLET PO ×2 (13:17→21:05)
--- NOTE | 2023-11-30 14:16 | PM.IMPN ---
Progress Note: A&P Assessment and Plan (1) Pneumonia: Code(s): J18.9 - Pneumonia, unspecified organism Status: Acute Assessment and Plan: Chest x-ray showed patchy bilateral airspace opacities compatible with pneumonia. Continue doxycycline and ceftriaxone. . (2) Left-sided chest pain: Code(s): R07.9 - Chest pain, unspecified Status: Acute Assessment and Plan: Patient presented with left-sided chest pain as detailed in HPI. Likely relate underlying pneumonia or musculoskeletal component. Acute coronary syndrome seems unlikely and troponins have been negative. Chest CTA 1 week ago was negative for PE and that seems unlikely. (3) Elevated lipase: Code(s): R74.8 - Abnormal levels of other serum enzymes Status: Acute Assessment and Plan: Lipase is mildly elevated and his abdominal exam is benign. Repeat in a.m. and continue serial abdominal exams. (4) Heart failure with reduced ejection fraction: Code(s): I50.20 - Unspecified systolic (congestive) heart failure Status: Acute Assessment and Plan: Appears clinically compensated. Continue furosemide, metoprolol, empagliflozin, aspirin, atorvastatin. (5) Insulin dependent diabetes mellitus: Status: Chronic Assessment and Plan: Continue basal insulin. Initiate sliding scale insulin, Accu-Cheks, and hypoglycemic protocol. Check hemoglobin A1c. (6) Hypothyroidism: Qualifiers: Hypothyroidism type: unspecified Qualified Code(s): E03.9 - Hypothyroidism, unspecified Code(s): E03.9 - Hypothyroidism, unspecified Status: Chronic Assessment and Plan: Continue levothyroxine and check TSH. (7) Seizure disorder: Code(s): G40.909 - Epilepsy, unspecified, not intractable, without status epilepticus Status: Acute Assessment and Plan: Continue levetiracetam. Plan 63-year-old male with coronary artery disease status post CABG, ischemic cardiomyopathy with an EF of 20 to 25% in May 2023, reduced right ventricular systolic function, pulmonary hypertension, hypertension, insulin-dependent diabetes mellitus, stroke, seizures, and other comorbidities who presented to the emergency department via EMS from a nursing facility for evaluation of left upper chest and arm pain. The patient provides the following history. Today he was experiencing sharp pain in the left upper ribs near mid axillary line radiating to the left axilla and left biceps. It is perhaps a bit worse with palpation and sometimes movement but not always. It is not pleuritic in nature. He has not had any recent falls or injuries to the area. He does note however that he is currently undergoing rehab after a pretty lengthy treatment for a left heel wound. He is learning to walk again and he has noticed that he is getting short of breath with that activity although he does admit that he has been deconditioned. Because of his cardiac history he was sent in for evaluation. His vital signs were stable on arrival to the ED. Initial troponin was negative and EKG did not show any ST segment elevations or depressions. Chest x-ray showed patchy bilateral airspace disease compatible with pneumonia and was admitted for further treatment. Chest pain likely musculoskeletal. CT chest 11/21/2023 with stable left basilar lower lobe similar nerve prominent soft tissue density which may represent atelectasis consolidation and/or fibrotic change. No significant change since 07/05/2023. Supportive treatment with anti-inflammatory lidocaine patches. Restarted on antibiotic with ceftriaxone and doxycycline which will be switched to oral. Subjective Date/time seen: 11/30/23 14:16 Interval history: 63-year-old male with coronary artery disease status post CABG, ischemic cardiomyopathy with an EF of 20 to 25% in May 2023, reduced right ventricular systolic function, pulmonary hypertension, hypertension, insu
[2023-11-30 16:21] LABS: Glucose Point of Care 175 mg/dl (65-105)
[2023-11-30] MEDS: INSULIN GLARGINE (*BKC) 100 UNITS/ML 10 UNITS SUB-Q (17:29)
[2023-11-30] MEDS: LATANOPROST 0.005% OP SOLN 2.5 ML BTL 1 DROP EACH EYE (21:05)
[2023-11-30] MEDS: ZINC SULFATE 220 MG CAPSULE PO (21:05)
[2023-11-30] MEDS: TAMSULOSIN HCL 0.4 MG CAPSULE 0.8 MG PO (21:05)
[2023-11-30] MEDS: ATORVASTATIN 40 MG TABLET PO (21:05)
[2023-11-30 21:31] LABS: Glucose Point of Care 218 mg/dl (65-105)
[2023-12-01] VITALS (7 sets, daily range): BP systolic 105–132; BP diastolic 66–76; PULSE 60–81; RESP 16; TEMP 35.9–36.6; O2SAT 95–98
[2023-12-01] MEDS: traMADol HCL (*CRX) 50 MG TABLET 100 MG PO ×2 (02:30→17:26)
[2023-12-01 03:21] LABS: Legionella pneumophila Ag Ur Not Detected (Not Detected)
[2023-12-01] MEDS: LEVOTHYROXINE SODIUM 25 MCG TABLET PO (05:41)
[2023-12-01] MEDS: LEVOTHYROXINE SODIUM 112 MCG TABLET PO (05:41)
[2023-12-01 06:21] LABS: Basophils Percent Auto 0.7 % (0.2-1.2); Eosinophils Absolute Auto 0.2 K/mm3 (0-0.3); Eosinophils Percent Auto 3.4 % (0-4.4); Hematocrit 47.5 % (42.0-52.0); Hemoglobin 14.8 g/dL (14.0-18.0); Immature Granulocyte Absolute 0.06 K/mm3 (0.00-0.031); Immature Granulocyte Percent A 1.1 % (0-0.5); Lymphocytes Absolute Auto 0.91 K/mm3 (0.9-3.2); Lymphocytes Percent Auto 16.3 % (18.3-44.2); Mean Corpuscular HGB Conc 31.2 g/dl (32-36); Mean Corpuscular Hemoglobin 30.6 pg (26-34); Mean Corpuscular Volume 98.1 fl (80-100); Monocytes Absolute Auto 0.5 K/mm3 (0.1-0.6); Monocytes Percent Auto 9.5 % (2.6-8.5); Neutrophils Absolute Auto 3.9 K/mm3 (1.3-6.7); Platelet Count Result 116 k/mm3 (150-375); Red Blood Count 4.84 M/mm3 (4.6-6.20); Red Cell Distribution Width 15.7 % (11.5-14.5); White Blood Count 5.6 K/mm3 (4.5-10.0)
[2023-12-01 06:29] LABS: Alanine Aminotransferase 14 U/L (6-50); Albumin Level 3.9 g/dL (3.5-5.1); Alkaline Phosphatase 174 U/L (38-126); Anion Gap 7 mmol/L (8-16); Aspartate Amino Transferase 26 U/L (17-59); Bilirubin,Total 0.7 mg/dL (0.2-1.3); Blood Urea Nitrogen 33 mg/dL (9-20); Calcium 8.8 mg/dL (8.4-10.2); Carbon Dioxide 29 mmol/L (22-30); Chloride 104 mmol/L (98-107); Estimated CRCL calculation 71 ml/min; Estimated Glomerular Filt Rate > 60; Glucose 102 mg/dL (65-110); Magnesium 2.2 mg/dL (1.6-2.3); Potassium 4.1 mmol/L (3.4-5.0); Sodium 140 mmol/L (137-145)
[2023-12-01 07:50] LABS: Glucose Point of Care 99 mg/dl (65-105)
[2023-12-01] MEDS: TOLNAFTATE 1% POWDER 45 GM BTL 1 APPLIC TOPICAL ×2 (08:53→20:40)
[2023-12-01] MEDS: INSULIN ASPART (*BKC) 100 UNITS/ML SUB-Q ×3 (08:53→17:19)
[2023-12-01] MEDS: MICONAZOLE NITRATE 2% CREAM 30 GM TUBE 1 APPLIC TOPICAL ×2 (08:54→20:23)
[2023-12-01] MEDS: ACETAMINOPHEN 325 MG TABLET 650 MG PO (08:56)
[2023-12-01] MEDS: MAGNESIUM OXIDE 400 MG TABLET PO (08:57)
[2023-12-01] MEDS: LORATADINE 10 MG TABLET PO (08:57)
[2023-12-01] MEDS: amLODIPine BESYLATE 5 MG TABLET PO (08:57)
[2023-12-01] MEDS: METOPROLOL SUCCINATE EXT REL 25 MG TABCR PO (08:57)
[2023-12-01] MEDS: FUROSEMIDE 40 MG TABLET PO ×2 (08:57→17:18)
[2023-12-01] MEDS: POTASSIUM CHLORIDE 10 MEQ ER TABLET PO (08:58)
[2023-12-01] MEDS: PREGABALIN (*CRX) 75 MG CAPSULE PO ×2 (08:58→20:22)
[2023-12-01] MEDS: ASCORBIC ACID 500 MG TABLET PO ×2 (08:58→17:18)
[2023-12-01] MEDS: levETIRAcetam 500 MG TABLET PO ×2 (08:58→20:22)
[2023-12-01] MEDS: AMOXICILLIN/CLAVULANATE K 875-125 MG TAB 1 TABLET PO (08:59)
[2023-12-01] MEDS: PANTOPRAZOLE 40 MG TABLET PO (08:59)
[2023-12-01] MEDS: EMPAGLIFLOZIN 25 MG TABLET PO (08:59)
[2023-12-01] MEDS: THERAPEUTIC MULTIVITAMINS/MINERALS TAB (*BKC) 1 TABLET PO (08:59)
[2023-12-01] MEDS: PRIMIDONE 50 MG TABLET PO ×3 (08:59→17:19)
[2023-12-01] MEDS: ASPIRIN 81 MG ENTERIC TABLET PO (08:59)
[2023-12-01] MEDS: FERROUS GLUCONATE 324 MG TABLET PO (08:59)
[2023-12-01] MEDS: DULoxetine HCL 60 MG CAPSULE.DR PO (08:59)
[2023-12-01] MEDS: DOXYCYCLINE HYCLATE 100 MG TABLET PO ×2 (08:59→20:22)
[2023-12-01] MEDS: ARTIFICIAL TEARS OPHTH SOLN 15 ML BOTTLE 1 DROP EACH EYE ×2 (09:00→20:23)
[2023-12-01] MEDS: BRIMONIDINE TARTRATE 0.2% OP SOLN 5 ML BTL 1 DROP EACH EYE ×2 (09:01→20:22)
[2023-12-01] MEDS: AZELASTINE HCL NASAL 0.1% 137 MCG/SPR 30 ML BTL 1 SPRAY NASAL ×2 (09:01→20:22)
[2023-12-01] MEDS: LIDOCAINE 5% PATCH 1 PATCH TRANSDERM (09:02)
[2023-12-01] MEDS: TRIAMCINOLONE ACET 0.1% CREAM 15 GM TUBE 1 APPLIC TOPICAL ×2 (09:03→20:40)
[2023-12-01] MEDS: BACLOFEN 5 MG TABLET PO ×3 (09:06→17:23)
[2023-12-01 11:52] LABS: Glucose Point of Care 135 mg/dl (65-105)
--- NOTE | 2023-12-01 13:28 | PM.IMPN ---
Progress Note: A&P Assessment and Plan (1) Pneumonia: Code(s): J18.9 - Pneumonia, unspecified organism Status: Acute (2) Left-sided chest pain: Code(s): R07.9 - Chest pain, unspecified Status: Acute (3) Elevated lipase: Code(s): R74.8 - Abnormal levels of other serum enzymes Status: Acute (4) Heart failure with reduced ejection fraction: Code(s): I50.20 - Unspecified systolic (congestive) heart failure Status: Acute (5) Insulin dependent diabetes mellitus: Status: Chronic (6) Hypothyroidism: Qualifiers: Hypothyroidism type: unspecified Qualified Code(s): E03.9 - Hypothyroidism, unspecified Code(s): E03.9 - Hypothyroidism, unspecified Status: Chronic (7) Seizure disorder: Code(s): G40.909 - Epilepsy, unspecified, not intractable, without status epilepticus Status: Acute Plan 63-year-old male with coronary artery disease status post CABG, ischemic cardiomyopathy with an EF of 20 to 25% in May 2023, reduced right ventricular systolic function, pulmonary hypertension, hypertension, insulin-dependent diabetes mellitus, stroke, seizures, and other comorbidities who presented to the emergency department via EMS from a nursing facility for evaluation of left upper chest and arm pain. The patient provides the following history. Today he was experiencing sharp pain in the left upper ribs near mid axillary line radiating to the left axilla and left biceps. It is perhaps a bit worse with palpation and sometimes movement but not always. It is not pleuritic in nature. He has not had any recent falls or injuries to the area. He does note however that he is currently undergoing rehab after a pretty lengthy treatment for a left heel wound. He is learning to walk again and he has noticed that he is getting short of breath with that activity although he does admit that he has been deconditioned. Because of his cardiac history he was sent in for evaluation. His vital signs were stable on arrival to the ED. Initial troponin was negative and EKG did not show any ST segment elevations or depressions. Chest x-ray showed patchy bilateral airspace disease compatible with pneumonia and was admitted for further treatment. Chest pain likely musculoskeletal. CT chest 11/21/2023 with stable left basilar lower lobe similar nerve prominent soft tissue density which may represent atelectasis consolidation and/or fibrotic change. No significant change since 07/05/2023. Supportive treatment with anti-inflammatory lidocaine patches. Restarted on antibiotic with ceftriaxone and doxycycline which will be switched to oral. PT OT ordered for evaluation [facility] resident Subjective Date/time seen: 12/01/23 13:28 Interval history: 63-year-old male with coronary artery disease status post CABG, ischemic cardiomyopathy with an EF of 20 to 25% in May 2023, reduced right ventricular systolic function, pulmonary hypertension, hypertension, insulin-dependent diabetes mellitus, stroke, seizures, and other comorbidities who presented to the emergency department via EMS from a nursing facility for evaluation of left upper chest and arm pain. The patient provides the following history. Today he was experiencing sharp pain in the left upper ribs near mid axillary line radiating to the left axilla and left biceps. It is perhaps a bit worse with palpation and sometimes movement but not always. It is not pleuritic in nature. He has not had any recent falls or injuries to the area. He does note however that he is currently undergoing rehab after a pretty lengthy treatment for a left heel wound. He is learning to walk again and he has noticed that he is getting short of breath with that activity although he does admit that he has been deconditioned. Because of his cardiac history he was sent in for evaluation. His vital signs were stable on arrival to the ED. Initial troponin was negative and EKG did not shahid
[2023-12-01 17:20] LABS: Glucose Point of Care 178 mg/dl (65-105)
[2023-12-01] MEDS: INSULIN GLARGINE (*BKC) 100 UNITS/ML 10 UNITS SUB-Q (17:20)
[2023-12-01] MEDS: TAMSULOSIN HCL 0.4 MG CAPSULE 0.8 MG PO (20:22)
[2023-12-01] MEDS: ATORVASTATIN 40 MG TABLET PO (20:22)
[2023-12-01] MEDS: ZINC SULFATE 220 MG CAPSULE PO (20:22)
[2023-12-01] MEDS: LATANOPROST 0.005% OP SOLN 2.5 ML BTL 1 DROP EACH EYE (20:23)
[2023-12-01 21:36] LABS: Glucose Point of Care 168 mg/dl (65-105)
[2023-12-02] MEDS: BACLOFEN 5 MG TABLET PO ×2 (00:25→08:38)
[2023-12-02] MEDS: ACETAMINOPHEN 325 MG TABLET 650 MG PO (00:25)
[2023-12-02] MEDS: LEVOTHYROXINE SODIUM 25 MCG TABLET PO (05:51)
[2023-12-02] MEDS: LEVOTHYROXINE SODIUM 112 MCG TABLET PO (05:51)
[2023-12-02 06:31] VITALS: BP 118/74; PULSE 62; RESP 16; TEMP 36.4; O2SAT 97
[2023-12-02 08:20] LABS: Glucose Point of Care 150 mg/dl (65-105)
[2023-12-02] MEDS: amLODIPine BESYLATE 5 MG TABLET PO (08:22)
[2023-12-02] MEDS: BRIMONIDINE TARTRATE 0.2% OP SOLN 5 ML BTL 1 DROP EACH EYE (08:23)
[2023-12-02] MEDS: ARTIFICIAL TEARS OPHTH SOLN 15 ML BOTTLE 1 DROP EACH EYE (08:23)
[2023-12-02] MEDS: ASCORBIC ACID 500 MG TABLET PO (08:23)
[2023-12-02] MEDS: ASPIRIN 81 MG ENTERIC TABLET PO (08:23)
[2023-12-02] MEDS: MICONAZOLE NITRATE 2% CREAM 30 GM TUBE 1 APPLIC TOPICAL (08:23)
[2023-12-02] MEDS: AZELASTINE HCL NASAL 0.1% 137 MCG/SPR 30 ML BTL 1 SPRAY NASAL (08:23)
[2023-12-02] MEDS: DULoxetine HCL 60 MG CAPSULE.DR PO (08:24)
[2023-12-02] MEDS: DOXYCYCLINE HYCLATE 100 MG TABLET PO (08:24)
[2023-12-02 08:25] VITALS: PULSE 65
[2023-12-02] MEDS: FUROSEMIDE 40 MG TABLET PO (08:25)
[2023-12-02] MEDS: levETIRAcetam 500 MG TABLET PO (08:25)
[2023-12-02] MEDS: METOPROLOL SUCCINATE EXT REL 25 MG TABCR PO (08:25)
[2023-12-02] MEDS: LIDOCAINE 5% PATCH 1 PATCH TRANSDERM (08:25)
[2023-12-02] MEDS: MAGNESIUM OXIDE 400 MG TABLET PO (08:25)
[2023-12-02] MEDS: THERAPEUTIC MULTIVITAMINS/MINERALS TAB (*BKC) 1 TABLET PO (08:26)
[2023-12-02] MEDS: PREGABALIN (*CRX) 75 MG CAPSULE PO (08:27)
[2023-12-02] MEDS: PRIMIDONE 50 MG TABLET PO ×2 (08:27→15:35)
[2023-12-02] MEDS: TRIAMCINOLONE ACET 0.1% CREAM 15 GM TUBE 1 APPLIC TOPICAL (08:27)
[2023-12-02] MEDS: PANTOPRAZOLE 40 MG TABLET PO (08:27)
[2023-12-02] MEDS: TOLNAFTATE 1% POWDER 45 GM BTL 1 APPLIC TOPICAL (08:27)
[2023-12-02] MEDS: POTASSIUM CHLORIDE 10 MEQ ER TABLET PO (08:27)
[2023-12-02] MEDS: EMPAGLIFLOZIN 25 MG TABLET PO (08:38)
[2023-12-02 08:39] VITALS: BP 116/72; PULSE 65
[2023-12-02] MEDS: INSULIN ASPART (*BKC) 100 UNITS/ML SUB-Q ×2 (08:39→11:46)
[2023-12-02] MEDS: FERROUS GLUCONATE 324 MG TABLET PO (08:42)
[2023-12-02 11:30] LABS: Glucose Point of Care 120 mg/dl (65-105)
--- NOTE | 2023-12-02 13:25 | PM.DS ---
DS: Admitting Diagnosis Discharge Date 12/02/2023 Admitting Diagnosis Chest pain DS: Discharge Diagnosis Discharge Diagnosis (1) Pneumonia: Code(s): J18.9 - Pneumonia, unspecified organism Status: Acute (2) Left-sided chest pain: Code(s): R07.9 - Chest pain, unspecified Status: Acute (3) Elevated lipase: Code(s): R74.8 - Abnormal levels of other serum enzymes Status: Acute (4) Heart failure with reduced ejection fraction: Code(s): I50.20 - Unspecified systolic (congestive) heart failure Status: Acute (5) Insulin dependent diabetes mellitus: Status: Chronic (6) Hypothyroidism: Qualifiers: Hypothyroidism type: unspecified Qualified Code(s): E03.9 - Hypothyroidism, unspecified Code(s): E03.9 - Hypothyroidism, unspecified Status: Chronic (7) Seizure disorder: Code(s): G40.909 - Epilepsy, unspecified, not intractable, without status epilepticus Status: Acute DS: Summary Hospital Course Hospital Course: 63-year-old male with coronary artery disease status post CABG, ischemic cardiomyopathy with an EF of 20 to 25% in May 2023, reduced right ventricular systolic function, pulmonary hypertension, hypertension, insulin-dependent diabetes mellitus, stroke, seizures, and other comorbidities who presented to the emergency department via EMS from a nursing facility for evaluation of left upper chest and arm pain. The patient provides the following history. He was experiencing sharp pain in the left upper ribs near mid axillary line radiating to the left axilla and left biceps. It is perhaps a bit worse with palpation and sometimes movement but not always. It is not pleuritic in nature. He has not had any recent falls or injuries to the area. He does note however that he is currently undergoing rehab after a pretty lengthy treatment for a left heel wound. He is learning to walk again and he has noticed that he is getting short of breath with that activity although he does admit that he has been deconditioned. Because of his cardiac history he was sent in for evaluation. His vital signs were stable on arrival to the ED. Initial troponin was negative and EKG did not show any ST segment elevations or depressions. Chest x-ray showed patchy bilateral airspace disease compatible with pneumonia and was admitted for further treatment.? Chest pain likely musculoskeletal and lidocaine patch was applied which helped.? CT chest 11/21/2023 with stable left basilar lower lobe similar nerve prominent soft tissue density which may represent atelectasis consolidation and/or fibrotic change.? No significant change since 07/05/2023.? Supportive treatment with anti-inflammatory lidocaine patches.? Restarted on antibiotic with ceftriaxone and doxycycline which will be switched to oral he will finish his oral antibiotics at discharge. PT OT ordered evaluated the patient during the hospital stay. He will continue PT OT at discharge in the nursing facility. Arrangements were made. Time Spent with Patient Time attestation: Total time spent providing and/or coordinating discharge services: 5 Exam Narrative: General:?Well-developed, nontoxic-appearing male sitting up in bed. Neck:??Supple. Respiratory:?Respirations are nonlabored. Lung sounds are coarse at the bases. Cardiovascular:??Regular rate and rhythm with S1-S2.?Systolic murmur at the left sternal border. Left-sided chest wall tenderness Gastrointestinal:??Abdomen is soft, nontender, and nondistended with positive bowel sounds. Skin:??Warm and dry.?Chronic skin changes of the lower legs bilaterally. Extremities:??No cyanosis or clubbing. He has trace edema of the right lower leg and 1+ augie ankle and pretibial edema of the left leg. No palpable knots or cords. Negative [place] sign bilaterally. Neurological:??Alert.? Cranial nerves 2-12 are grossly intact. Left-sided weakness from previous stroke. Psychiatric:??Pleasant and c
[2023-12-02 14:00] VITALS: BP 105/83; PULSE 65; RESP 18; TEMP 36.3; O2SAT 96
--- NOTE | 2023-12-02 14:51 | PCPTNOTE ---
1432 attempted to see patient, but has discharge orders and just waiting on an ambulance ride. Offered therapy, but patient declines.
== END 2023-12-02 15:45 ==
LOC: ANHED 13:08 → ANH3MEDSUR 15:15
PROVIDERS: Emergency Medicine; Family Medicine; Physician Assistant; Admitting Provider Internal Medicine; Emergency Provider Student in an Organized Health Care Education/Training Program; PCP Family Medicine; Visit Provider Internal Medicine
DX: J18.9 Pneumonia, unspecified organism (principal); R07.9 Chest pain, unspecified; R74.8 Abnormal levels of other serum enzymes; I13.0 Hypertensive heart and chronic kidney disease with heart failure and stage 1 through stage 4 chronic kidney disease, or unspecified chronic kidney disease; I50.20 Unspecified systolic (congestive) heart failure; E11.22 Type 2 diabetes mellitus with diabetic chronic kidney disease; N18.30 Chronic kidney disease, stage 3 unspecified; D63.1 Anemia in chronic kidney disease; E03.9 Hypothyroidism, unspecified; I44.0 Atrioventricular block, first degree; G40.909 Epilepsy, unspecified, not intractable, without status epilepticus; I69.354 Hemiplegia and hemiparesis following cerebral infarction affecting left non-dominant side; J90 Pleural effusion, not elsewhere classified; R79.89 Other specified abnormal findings of blood chemistry; I25.10 Atherosclerotic heart disease of native coronary artery without angina pectoris; Z95.5 Presence of coronary angioplasty implant and graft; N40.0 Benign prostatic hyperplasia without lower urinary tract symptoms; F32.A Depression, unspecified; I25.5 Ischemic cardiomyopathy; Z20.822 Contact with and (suspected) exposure to COVID-19; I25.2 Old myocardial infarction; E78.5 Hyperlipidemia, unspecified; H40.9 Unspecified glaucoma; Z87.891 Personal history of nicotine dependence; Z79.82 Long term (current) use of aspirin; Z79.51 Long term (current) use of inhaled steroids; Z79.1 Long term (current) use of non-steroidal anti-inflammatories (NSAID); Z79.52 Long term (current) use of systemic steroids; Z79.4 Long term (current) use of insulin; Z79.85 Long-term (current) use of injectable non-insulin antidiabetic drugs; Z79.899 Other long term (current) drug therapy; Z82.49 Family history of ischemic heart disease and other diseases of the circulatory system; Z95.1 Presence of aortocoronary bypass graft
CPT/HCPCS: 36415; 71046; 80048; 80053; 82948; 83036; 83690; 83735; 84145; 84443; 84484; 85025; 85027; 85055; 85610; 85730; 86140; 86738; 87449; 87637; 87899; 93005; 93971; 96365; 96366; 96367; 96372; 96376; 97166; 99285; A9270; G0378; J0696; J1650; J1815

== ENCOUNTER 2024-01-01 16:25 | Inpatient (IN) | payer MEDICARE, MEDICAID, SELFPAY ==
[2024-01-01] VITALS (36 sets, daily range): BP systolic 90–103; BP diastolic 60–73; PULSE 66–136; RESP 13–33; TEMP 37.3–39.6; O2SAT 91–99
--- NOTE | ~2024-01-01 | XR_ITS ---
EXAMINATION: XR chest 1V portable Exam Date/Time: 01/01/2024 17:45 CLOTH FINISHING RANGE OPERATOR CHIEF HISTORY: Cough, weakness, short of breath Comparison: 11/27/2023. RESULT: Lines, tubes, and devices: Intact sternotomy wires. Lungs and pleura: Mild diffuse reticular opacities with indistinct vessels. Subsegmental left basila r airspace disease. Mild left costophrenic angle blunting. Cardiomediastinal silhouette: Stable. Other: No acute osseous or upper abdominal finding. IMPRESSION: Mild interstitial edema. Subsegmental left basilar atelectasis/consolidation. Small left pleural effu luis. Reviewed, dictated and finalized at location K. H FINISHING RANGE OPERATOR CHIEF IMPRESSION: Mild interstitial edema. Subsegmental left basilar atelectasis/consolidation. S mall left pleural effusion.
--- NOTE | ~2024-01-01 | XR_ITS ---
EXAMINATION: XR knee RT 3V DATE: 01/04/2024 19:36 INDICATION: Right knee pain TECHNIQUE: Three views of the right knee were obtained. COMPARISON: 11/16/2014 FINDINGS: Alignment is normal. No fracture or osteochondral lesion. There is mild to moderate tricomp artmental osteoarthritis. No joint effusion/synovitis. Calcified atherosclerosis is noted. IMPRESSION: 1. Osteoarthritis without acute osseous abnormality. Reviewed, dictated and finalized at location F. PYTHON DEVELOPER
--- NOTE | ~2024-01-01 | XR_ITS ---
Portable chest x-ray Comparison: 01/01/2024 Clinical History: CHF Findings: Minimal left pleural effusion present with probable hazy left basilar airspace disease. Ri ght lung clear. Cardiomediastinal silhouette is stable. Bones and soft tissues are unremarkable. Impression: Minimal left pleural effusion with left basilar pulmonary edema/atelectasis versus possibly pneumonia . Reviewed, dictated and finalized at location . WINDER Impression: Minimal left pleural effusion with left basilar pulmonary edema/atelectasis janene gume possibly pneumonia.
--- NOTE | ~2024-01-01 | US_ITS ---
EXAMINATION: US venous doppler [facility] DATE: 01/03/2024 14:14 INDICATION: Lower limb pain with positive Homans sign TECHNIQUE: Grayscale ultrasound images without and with compression and Doppler ultrasound images of the bilateral lower extremity veins were obtained. COMPARISON: None. FINDINGS: The visualized portions of right common femoral vein, profunda (deep) femoral vein, femoral vein, pop liteal vein, posterior tibial veins, peroneal veins and greater saphenous vein outflow are patent. The visualized portions of left common femoral vein, profunda femoral vein, femoral vein, popliteal v ein, posterior tibial veins, peroneal veins and greater saphenous vein outflow are patent. IMPRESSION: 1. No deep venous thrombosis in either lower limb. Reviewed, dictated and finalized at location L. CAL LAB SCIENTIST
--- NOTE | 2024-01-01 16:35 | ECG_ITS ---
Measurements Intervals [place] Rate: 136 P: RI: 0 QRS: 208 QRSD: 194 T: 32 QT: 347 QTc: 523 Interpretive Statements SUSPECT VENTRICULAR TACHYCARDIA COMPARED TO ECG 11/27/2023 10:09:57 VENTRICULAR TACHYCARDIA PRESENT Electronically Signed On 01-02-2024 17:20:12 RETAIL SERVICE REPRESENTATIVE by Maritza Edwards M.D.
--- NOTE | 2024-01-01 16:45 | ED.SOB ---
HPI - SOB/Dyspnea General Chief Complaint: Shortness of Breath/Dyspnea Stated Complaint: SOB, R leg pain x 1 wk Time Seen by Provider: 01/01/24 16:27 History of Present Illness HPI Narrative: This is a 63-year-old male, with history coronary artery disease, diabetes, stroke and CHF (EF 25-30%), brought in by EMS from his nursing for hypoxia and tachycardia. The patient states over the past several days, he has had cough productive of nonbloody sputum. He also complains of dull, right anterior lower leg pain without obvious aggravating or alleviating factors. Today, he states he felt feverish and short of breath. EMS reports arrival, the patient was tachycardic to the 130s. Blood pressure was reportedly in the mid 90s the patient was febrile. EKG performed and route showed tachycardia, presumably AFib RVR and possible ST segment elevations. Related Data Home Medications Medication Instructions Recorded Confirmed aspirin 81 mg tablet,delayed 81 mg PO DAILY heart disease 03/30/21 11/27/23 release atorvastatin 40 mg tablet 40 mg PO HS high cholesterol 03/30/21 11/27/23 biotin 5,000 mcg disintegrating 5,000 mcg PO DAILY supplement 03/30/21 11/27/23 tablet levothyroxine 137 mcg tablet 137 mcg PO QAM hypothyroidism 03/30/21 11/27/23 tamsulosin 0.4 mg capsule 0.8 mg PO HS benign prostatic 03/30/21 11/27/23 hyperplasia ascorbic acid (vitamin C) 500 mg 500 mg PO BID wound healing 01/18/22 11/27/23 capsule duloxetine 60 mg capsule,delayed 60 mg PO DAILY depression 01/18/22 11/27/23 release baclofen 5 mg tablet 5 mg PO TID pain 06/09/22 11/27/23 dulaglutide 0.75 mg/0.5 mL 0.75 mg subcut WEEKLY 06/09/22 11/27/23 subcutaneous pen injector (Trulicity) empagliflozin 25 mg tablet 25 mg PO DAILY type 2 diabetes 06/09/22 11/27/23 (Jardiance) ferrous gluconate 324 mg (38 mg 324 mg PO DAILY supplementation 06/09/22 11/27/23 iron) tablet ipratropium 0.5 mg-albuterol 3 mg 3 ml inhalation Q6H PRN Shortness 06/09/22 11/27/23 (2.5 mg base)/3 mL nebulization Of Breath soln latanoprost 0.005 % eye drops 1 drp EACH EYE HS glaucoma 06/09/22 11/27/23 multivitamin with minerals (Daily 1 tablet PO DAILY wound healing ##0 06/09/22 11/27/23 Multivitamin-Minerals tablet) potassium chloride 10 mEq 10 meq PO DAILY hypokalemia 06/09/22 11/27/23 capsule,extended release sodium phosphates 19 gram-7 118 ml RECTAL DAILY PRN 06/09/22 11/27/23 gram/118 mL enema (Fleet Enema) Constipation amlodipine 2.5 mg tablet 5 mg PO DAILY Hypertension 12/29/22 11/27/23 brimonidine 0.2 % eye drops 1 drp EACH EYE BID glaucoma 12/29/22 11/27/23 diclofenac sodium 1 % topical gel 1 ea topical Q6H PRN mild pain to 12/29/22 11/27/23 hips/legs Nystatin Powder 1 applic topical DIRECTED PRN 03/06/23 11/27/23 Rash acetaminophen 500 mg tablet 1,000 mg PO Q8H PRN Pain (Scale 03/06/23 11/27/23 (Acetaminophen Extra Strength) Score 4-6) azelastine 137 mcg (0.1 %) nasal 1 spray intranasal Q12H allergic 03/06/23 11/27/23 spray aerosol rhinitis magnesium oxide 400 mg (241.3 mg 400 mg PO DAILY hypomagnesemia 03/06/23 11/27/23 magnesium) tablet peg [id number] 1 1 drp EACH EYE BID dry eyes 03/06/23 11/27/23 %-0.2 %-0.2 % eye drops (Artificial Tears ([id number])) polyethylene glycol 1 ea DIRECTED PRN Constipation 03/06/23 11/27/23 primidone 50 mg tablet 50 mg PO TID tremors 03/06/23 11/27/23 triamcinolone acetonide 0.1 % 1 applic topical BID dermatitis 03/06/23 11/27/23 topical cream glucagon 1 mg injection kit 1 mg subcut PRN PRN Hypoglycemia 04/17/23 11/27/23 insulin glargine 100 unit/mL (3 10 unit subcut QPM 04/17/23 11/27/23 mL) subcutaneous pen (Lantus Solostar U-100 Insulin) insulin lispro 100 unit/mL 3 sliding scale dose subcut TID 04/17/23 11/27/23 subcutaneous pen insulin lispro 100 unit/mL 1 sliding scale dose subcut 04/17/23 11/27/23 subcutaneous pen (Humalog KwikPen USEASDIRECTD (U-100) Insulin) leveti
[2024-01-01 17:03] LABS: Basophils Percent Auto 0.2 % (0.2-1.2); Eosinophils Percent Auto 0.2 % (0-4.4); Hematocrit 43.2 % (42.0-52.0); Hemoglobin 14.1 g/dL (14.0-18.0); Immature Granulocyte Percent A 0.7 % (0-0.5); Lymphocytes Absolute Auto 0.73 K/mm3 (0.9-3.2); Lymphocytes Percent Auto 5.1 % (18.3-44.2); Mean Corpuscular HGB Conc 32.6 g/dl (32-36); Mean Corpuscular Hemoglobin 30.2 pg (26-34); Mean Corpuscular Volume 92.5 fl (80-100); Mean Platelet Volume 11.9 fl (7.4-10.4); Monocytes Absolute Auto 1.5 K/mm3 (0.1-0.6); Monocytes Percent Auto 10.2 % (2.6-8.5); Neutrophils Absolute Auto 11.9 K/mm3 (1.3-6.7); Neutrophils Percent Auto 83.6 % (45.5-73.1); Platelet Count Result 194 k/mm3 (150-375); Red Blood Count 4.67 M/mm3 (4.6-6.20); Red Cell Distribution Width 14.9 % (11.5-14.5); White Blood Count 14.2 K/mm3 (4.5-10.0)
[2024-01-01] MEDS: SODIUM CHLORIDE 0.9% IV 1,000 ML 999 ML IV CONT (17:10)
[2024-01-01] MEDS: CEFEPIME 2 GM/NS 50 ML 2 GM/50 ML BAG IVPB ×2 (17:10→21:18)
[2024-01-01] MEDS: ACETAMINOPHEN 500 MG TABLET 1000 MG PO (17:14)
[2024-01-01 17:25] LABS: INR 1.5; Prothrombin Time 19.2 Seconds (11.1-14.7)
[2024-01-01 17:26] LABS: Partial Thromboplastin Time 50.7 SECONDS (22.3-36.8)
[2024-01-01 17:26] LABS: Appearance Urine Clear (Clear); Bacteria Urine None Seen /hpf; Bilirubin Urine Negative (Negative); Blood Urine Negative (Negative); Color Urine Yellow (Yellow); Glucose Urine UA 3+ mg/dL (Negative); Ketones Urine Negative (Negative); Leukocyte Esterase Ur Negative LEU/UL (Negative); Nitrate Urine Negative (Negative); Non Pathogenic Casts 0-2; Protein Urine 3+ mg/dL (Negative); RBC Urine 0-2 /hpf (0-2); Specific Grav Ur 1.022 (1.001-1.035); Squamous Epithelial Cell Urine None seen /hpf (Few); WBC Urine 0-5 /hpf
[2024-01-01 17:29] LABS: Add Urine Microscopic? YES
[2024-01-01 17:33] LABS: Alanine Aminotransferase 21 U/L (6-50); Albumin Level 3.8 g/dL (3.5-5.1); Alkaline Phosphatase 168 U/L (38-126); Anion Gap 10 mmol/L (8-16); Aspartate Amino Transferase 39 U/L (17-59); Bilirubin,Total 1.4 mg/dL (0.2-1.3); Blood Urea Nitrogen 37 mg/dL (9-20); CRP 22.2 mg/dL (<1.0); Calcium 8.7 mg/dL (8.4-10.2); Carbon Dioxide 20 mmol/L (22-30); Chloride 102 mmol/L (98-107); Estimated CRCL calculation 53 ml/min; Estimated Glomerular Filt Rate 47; Glucose 263 mg/dL (65-110); Potassium 4.3 mmol/L (3.4-5.0); Sodium 132 mmol/L (137-145)
[2024-01-01] MEDS: SODIUM CHLORIDE 0.9% IV 500 ML 999 ML IV CONT (18:00)
[2024-01-01] MEDS: VANCOMYCIN 1,250 MG/NS 250 ML 1,250 MG/250 ML BAG 166.67 MG IVPB ×2 (18:12→19:46)
--- NOTE | 2024-01-01 18:28 | ECG_ITS ---
Measurements Intervals [place] Rate: 81 P: 36 MN: 144 QRS: -49 QRSD: 130 T: 110 QT: 409 QTc: 476 Interpretive Statements SINUS RHYTHM POSSIBLE ANTERIOR MYOCARDIAL INFARCTION , OF INDETERMINATE AGE [30 ms Q WAVE IN V3/V4, OR R < 0.2 mV IN V4] INFERIOR MYOCARDIAL INFARCTION , OF INDETERMINATE AGE [40+ ms Q WAVE AND/OR ST/T ABNORMALITY IN II/aVF] MODERATE T-WAVE ABNORMALITY, CONSIDER LATERAL ISCHEMIA [-0.1+ mV T-WAVE IN I/aVL/V5/V6] COMPARED TO ECG 01/01/2024 16:35:33 SINUS RHYTHM NOW PRESENT Electronically Signed On 01-02-2024 16:24:07 CONTACT ACID PLANT OPERATOR HELPER by Maritza Edwards M.D.
[2024-01-01 18:29] LABS: NT Pro B Type Natriuretic Pept 26100 pg/mL (19.9-100); Troponin I < 0.012 ng/mL (0.000-0.034)
[2024-01-01 18:50] LABS: Influenza A QL RT-PCR Negative (Negative); Influenza B QL RT-PCR Negative (Negative); RSV RNA, RT-PCR Negative (Negative); SARS-CoV-2 RNA PCR Negative (Negative)
[2024-01-01 19:24] LABS: MRSA (PCR) DETECTED (NOT DETECTE)
--- NOTE | 2024-01-01 19:47 | ECG_ITS ---
Measurements Intervals [place] Rate: 73 P: 29 ND: 143 QRS: -48 QRSD: 133 T: 112 QT: 445 QTc: 494 Interpretive Statements SINUS RHYTHM LEFT AXIS DEVIATION [QRS AXIS < -30] INTRAVENTRICULAR CONDUCTION DELAY [130+ ms QRS DURATION] POSSIBLE ANTERIOR MYOCARDIAL INFARCTION , OF INDETERMINATE AGE [30 ms Q WAVE IN V3/V4, OR R < 0.2 mV IN V4] COMPARED TO ECG 01/01/2024 18:28:09 NO SIGNIFICANT CHANGES Electronically Signed On 01-02-2024 16:25:33 DIAMOND PICKER by Maritza Edwards M.D.
[2024-01-01 20:21] LABS: Troponin I 0.876 ng/mL (0.000-0.034)
[2024-01-01] MEDS: INSULIN GLARGINE (*BKC) 100 UNITS/ML 16 UNITS SUB-Q (21:19)
[2024-01-01 21:26] LABS: Glucose Point of Care 187 mg/dl (65-105)
--- NOTE | 2024-01-01 23:41 | PM.IMHP ---
H&P: HPI History of Present Illness Date/Time: 01/01/24 23:41 Chief Complaint: shortness of breath and difficulty breathing Narrative: 63-year-old male with a past medical history of CVA, diabetes, coronary arteries, cardiac bypass Among other who presented to the ER from [facility] due to staff reported the patient having shortness of breath and difficulty breathing. The patient's only complaint time my evaluation was right arm and leg pain. On direct questioning he does state that he may have been breathing a little bit harder than usual. He denies any recent cough or congestion. Had alf the patient's oxygen saturations were reportedly 60% on room air but when the patient arrived to the ER his oxygen saturations were 93% on room air. He was placed back on oxygen for comfort. Patient denied having any chest pain or palpitations. On arrival to ER patient was found to be in atrial flutter with interventricular conduction delay. He was also noted to be febrile with rectal temperature of 103.2?. After treatment of the patient's temperature and fluid administration patient's heart rate returned to normal and repeat EKG demonstrated normal sinus rhythm. Initial troponin was negative but repeat troponins demonstrate elevation. Patient still denies any chest pain. He denies any dysuria, abdominal symptoms, nausea, vomiting, diaphoresis or other distress. He is focused on the back of his left heel being painful as it is hanging over the into the bed. He reports that his right arm and leg feel weaker than usual. And that they have been hurting for a week. He denies any difficulty with urinary symptoms. Source of information is mainly from ER report, EMS records and alf records. Patient was a fair historian regarding his past medical history but was not the best historian regarding his acute symptoms on presentation. Review of Systems Review of Systems: 12 point review of systems was attempted but limited as patient is not the best historian [facility] Past Medical History Medical History Benign prostatic hyperplasia Cerebrovascular accident Chronic anemia (01/2019) Post CABG right parietal infarction resultant hemiplegia. Chronic kidney disease, stage 3 Chronic systolic right heart failure Combined systolic and diastolic congestive heart failure Coronary artery disease Status post three-vessel bypass and left ventricular aneurysm repair in February 2019 at [facility]. 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 Myocardial infarction (01/2019) Late presentation [place] found to have severe three-vessel disease, transferred to [facility] for emergent bypass with perioperative ventricular fibrillation arrest. Pulmonary hypertension Seizure disorder Surgical History Surgical History History of cardiac catheterization History of coronary artery bypass graft (~02/2019) Three-vessel bypass and surgical repair of left ventricular aneurysm at [facility]. History of fusion of cervical spine Family History Family History Mother Patient's mother is Hypertension Father Patient's father is Malignant neoplasm of prostate Social History Social History (Updated 01/02/24 @ 02:36 by Esperanza Hutton DO) Social History: Healthcare power of agriculture technician: Blanquita Ann, . Code status: Full code. Smoking packs per day: 1.5 Smoking cigarettes per day: 30.0 Years smoked: 30 Smoking pack-years: 45.00 Smoking status: Former smoker Second hand tobacco smoke exposure: No Alcohol intake: never Substance use
--- NOTE | 2024-01-01 23:52 | ECG_ITS ---
Measurements Intervals [place] Rate: 66 P: 74 HI: 207 QRS: -33 QRSD: 120 T: 123 QT: 439 QTc: 463 Interpretive Statements SINUS RHYTHM MARKED LEFT AXIS DEVIATION [QRS AXIS < -30] POSSIBLE ANTERIOR MYOCARDIAL INFARCTION , OF INDETERMINATE AGE [30 ms Q WAVE IN V3/V4, OR R < 0.2 mV IN V4] MODERATE T-WAVE ABNORMALITY, CONSIDER LATERAL ISCHEMIA [-0.1+ mV T WAVE IN I/aVL/V5/V6] COMPARED TO ECG 01/01/2024 19:53:35 NO SIGNIFICANT CHANGES Electronically Signed On 01-02-2024 16:27:29 INBOUND SALES MANAGER by Maritza Edwards M.D.
[2024-01-02] VITALS (17 sets, daily range): BP systolic 83–121; BP diastolic 66–81; PULSE 62–80; RESP 15–21; TEMP 36.5–37.9; O2SAT 92–100; BMI 29.2
--- NOTE | 2024-01-02 | ECHO_ITS ---
Patient Info Name: Bayron Ann Age: 63 years : 1960 Gender: Male Ht: 75 in Wt: 234 lbs BSA: 2.39 m2 HR: 78 bpm BP: 112 / 71 mmHg Heart Rhythm: Sinus Rhythm Technical Quality: Fair Exam Date: 01/02/2024 3:29 PM Exam Location: Echo Lab Exam Room: ICU1 Patient Status: Inpatient Admit Date: 01/02/2024 Staff Ordering Physician: Rocael Corado MD Costume Specialist: Ana Barraza RDCS Attending Provider: Esperanza Hutton DO Exam Type: CA echo doppler color flow Study Info Indications - ATRIAL FLUTTER VS V TACH I51.9 - Heart disease, unspecified Complete two-dimensional, color flow and Doppler transthoracic echocardiogram is performed with contrast to opacify the left ventricle and to improve the deliniation of the left ventricle endocardial borders. Contrast/Agitated Saline Contrast/Ag. Saline: Definity Amount: 2.00 ml Administered By: Ana Barraza [facility] Existing IV Access: Yes IV Access Condition: patent with no signs of infiltration Summary 1. Moderate left ventricular enlargement with normal thickness. Severe left ventricular dysfunction, with akinesis of the anterior wall, anteroseptal wall and apex. Ejection fraction visually 20-25%, calculated 19%. Grade 2 diastolic dysfunction is present. 2. Right ventricular chamber dimension is moderately enlarged. 3. Left atrial chamber dimension is severely enlarged. 4. Right atrial chamber dimension is moderately enlarged. 5. Degree of stenosis. Appeared to have a Was moderately calcified and Valve The aortic There is probably moderate moderate aortic valve stenosis with a peak velocity of only 204 cm/s mean gradient of 9 mmHg, and aortic valve area of 1.4 cm2. Probably low-flow low gradient aortic stenosis. 6. There is moderate mitral valve regurgitation. 7. There is moderate tricuspid valve regurgitation. 8. Severe pulmonary hypertension, estimated pulmonary arterial systolic pressure is 81 mmHg. 9. Dilated inferior vena cava with <50% collapse upon inspiration consistent with significantly elevated right atrial pressure, 10 mmHg. 10. Normal sinus rhythm. Left Ventricle Left ventricular chamber dimension is moderately enlarged. Left ventricular systolic function is severely reduced, estimated at 20-25%. There is no increased left ventricular wall thickness. Left ventricular septal wall motion is normal. The left ventricular diastolic function is grade II diastolic dysfunction. Right Ventricle Right ventricular chamber dimension is moderately enlarged. Right ventricular systolic function is reduced. Left Atria Left atrial chamber dimension is severely enlarged. Right Atria Right atrial chamber dimension is moderately enlarged. Aortic Valve The aortic valve is trileaflet. There is no aortic valve sclerosis. Degree of stenosis. Appeared to have a Was moderately calcified and Valve The aortic There is probably moderate moderate aortic valve stenosis with a peak velocity of only 204 cm/s mean gradient of 9 mmHg, and aortic valve area of 1.4 cm2. Probably low-flow low gradient aortic stenosis. There is trace aortic valve regurgitation. There is moderate aortic valve calcification. Pulmonic Valve The pulmonic valve is normal. There is no pulmonic valve stenosis. There is trace pulmonic regurgitation. Mitral Valve The mitral valve has normal leaflets. There is no mitral valve stenosis. There is moderate mitral valve regurgitation. Tricuspid Valve The tricuspid valve leaflets are normal. There is no significant tricuspid valve stenosis. There
--- NOTE | 2024-01-02 02:17 | ADMGEN ---
This patient, Bayron Ann, was admitted to Intensive Care Unit-1. Patient/family oriented to hospital policies and general routines including ID bracelet, bed and alarms, visiting hours, pain management, procedures, bathroom and other care routines, personal items, smoking policy, room service/diet, and visiting hours. Information on how to activate the Rapid Response Team has been discussed. Patient/Family are encouraged to report perceived risks to care and to ask questions if they do not understand what they are told or what they should do.
[2024-01-02] MEDS: HEPARIN SODIUM 5,000 UNITS/ML VIAL 4000 UNITS IV PUSH ×2 (03:02→09:39)
[2024-01-02] MEDS: HEPARIN SOD/D5W 100 UNITS/ML 25,000 UNITS/250 ML BAG 10 UNITS IV CONT (03:03)
[2024-01-02] MEDS: traMADol HCL (*CRX) 50 MG TABLET 100 MG PO ×2 (03:52→23:43)
[2024-01-02 03:56] LABS: Basophils Percent Auto 0.2 % (0.2-1.2); Eosinophils Absolute Auto 0.1 K/mm3 (0-0.3); Eosinophils Percent Auto 0.8 % (0-4.4); Hematocrit 42.4 % (42.0-52.0); Hemoglobin 13.5 g/dL (14.0-18.0); Immature Granulocyte Absolute 0.07 K/mm3 (0.00-0.031); Immature Granulocyte Percent A 0.7 % (0-0.5); Lymphocytes Absolute Auto 1.07 K/mm3 (0.9-3.2); Lymphocytes Percent Auto 10.3 % (18.3-44.2); Mean Corpuscular HGB Conc 31.8 g/dl (32-36); Mean Corpuscular Hemoglobin 30.3 pg (26-34); Mean Corpuscular Volume 95.1 fl (80-100); Mean Platelet Volume 11.2 fl (7.4-10.4); Monocytes Absolute Auto 1.3 K/mm3 (0.1-0.6); Monocytes Percent Auto 12.2 % (2.6-8.5); Neutrophils Absolute Auto 7.9 K/mm3 (1.3-6.7); Neutrophils Percent Auto 75.8 % (45.5-73.1); Platelet Count Result 141 k/mm3 (150-375); Red Blood Count 4.46 M/mm3 (4.6-6.20); Red Cell Distribution Width 14.8 % (11.5-14.5); White Blood Count 10.4 K/mm3 (4.5-10.0)
[2024-01-02 04:07] LABS: Anion Gap 8 mmol/L (8-16); Blood Urea Nitrogen 40 mg/dL (9-20); Calcium 8.4 mg/dL (8.4-10.2); Carbon Dioxide 24 mmol/L (22-30); Chloride 105 mmol/L (98-107); Estimated CRCL calculation 50 ml/min; Estimated Glomerular Filt Rate 44; Glucose 143 mg/dL (65-110); INR 1.8; Potassium 3.9 mmol/L (3.4-5.0); Sodium 137 mmol/L (137-145)
[2024-01-02 04:32] LABS: Partial Thromboplastin Time > 200.0 SECONDS (22.3-36.8)
--- NOTE | 2024-01-02 04:42 | PC.NURSE ---
PTT > 200 resulted shortly after initiation of Heparin drip and heparin bolus was administered. Dr. Hutton notified and orders received to adjust Heparin drip when 6 hour PTT is drawn at 0900. Will continue to monitor.
[2024-01-02] MEDS: LEVOTHYROXINE SODIUM 25 MCG TABLET PO (05:42)
[2024-01-02 07:44] LABS: Glucose Point of Care 145 mg/dl (65-105)
[2024-01-02] MEDS: DULoxetine HCL 60 MG CAPSULE.DR PO (09:10)
[2024-01-02] MEDS: EMPAGLIFLOZIN 25 MG TABLET PO (09:10)
[2024-01-02] MEDS: levETIRAcetam 500 MG TABLET PO ×2 (09:10→20:27)
[2024-01-02] MEDS: BACLOFEN 5 MG TABLET PO ×3 (09:10→23:43)
[2024-01-02] MEDS: ASPIRIN 81 MG ENTERIC TABLET PO (09:10)
[2024-01-02] MEDS: LEVOTHYROXINE SODIUM 112 MCG TABLET PO (09:11)
[2024-01-02] MEDS: MAGNESIUM OXIDE 400 MG TABLET PO (09:11)
[2024-01-02] MEDS: THERAPEUTIC MULTIVITAMINS/MINERALS TAB (*BKC) 1 TABLET PO (09:12)
[2024-01-02] MEDS: PRIMIDONE 50 MG TABLET PO ×3 (09:12→17:09)
[2024-01-02] MEDS: PANTOPRAZOLE 40 MG TABLET PO (09:12)
[2024-01-02] MEDS: BRIMONIDINE TARTRATE 0.2% OP SOLN 5 ML BTL 1 DROP EACH EYE ×2 (09:12→20:29)
[2024-01-02] MEDS: LIDOCAINE 5% PATCH 1 PATCH TRANSDERM (09:12)
[2024-01-02] MEDS: AZELASTINE HCL NASAL 0.1% 137 MCG/SPR 30 ML BTL 1 SPRAY NASAL ×2 (09:12→20:29)
[2024-01-02] MEDS: ARTIFICIAL TEARS OPHTH SOLN 15 ML BOTTLE 1 DROP EACH EYE ×2 (09:12→20:30)
[2024-01-02] MEDS: PREGABALIN (*CRX) 75 MG CAPSULE PO ×2 (09:12→17:09)
[2024-01-02] MEDS: INSULIN ASPART (*BKC) 100 UNITS/ML SUB-Q ×3 (09:13→17:09)
[2024-01-02] MEDS: polyethylene glycoL 3350 17 GM POWD.PACK PO (09:23)
[2024-01-02] MEDS: DICLOFENAC SODIUM 1% 100 GM GEL (*BKC) 1 APPLIC TOPICAL (09:23)
[2024-01-02 09:29] LABS: Partial Thromboplastin Time 59.8 SECONDS (22.3-36.8)
--- NOTE | 2024-01-02 09:34 | PM.CNCAR ---
Assessment and Plan Assessment and plan (1) Elevated troponin: Code(s): R79.89 - Other specified abnormal findings of blood chemistry Status: Acute Assessment and Plan: Elevated troponin w/o CP or ischemic EKG changes. Type 2 MD 2nd to sustained Ventricular tachycardia, hypoxia, CHF on pre-existing CAD. --DC heparin since no ACS --Echo (2) Ventricular tachycardia: Code(s): I47.20 - Ventricular tachycardia, unspecified Status: Acute Assessment and Plan: Pt's EKG suggests sustained ventricular tachycardia on admission, which spontaneously converted to NSR. Has substrate for VT and is at risk for sudden cardiac . --Resume BB at lower dose since BP is better, titrate. --Further tx depending on pt's resuscitation status, infection status, wishes for tx, etc. (EP eval vs amio???) (3) Acute on chronic combined systolic and diastolic CHF (congestive heart failure): Code(s): I50.43 - Acute on chronic combined systolic (congestive) and diastolic (congestive) heart failure Status: Acute Assessment and Plan: Acute CHF 2nd to ventricular tachycardia, sepsis. Also received a lot of IV fluids yesterday for sepsis. May be resolving as pt no longer needs O2. --CXR tmr.. (4) Ischemic cardiomyopathy: Code(s): I25.5 - Ischemic cardiomyopathy Status: Acute Assessment and Plan: EF 15-20% 05/2023. --Resume guideline-directed medical tx as BP tolerates. (5) Coronary artery disease: Code(s): I25.10 - Atherosclerotic heart disease of [place] coronary artery without angina pectoris Status: Acute Assessment and Plan: H/O CAD, MD, CABG, ischemic cardiomyopathy. --Cont ASA, statin (6) Sepsis: Qualifiers: Acute renal failure type: unspecified Sepsis acute organ dysfunction status: with acute organ dysfunction Sepsis type: sepsis due to unspecified organism Severe sepsis acute organ dysfunction type: acute renal failure Severe sepsis shock status: without septic shock Qualified Code(s): A41.9 - Sepsis, unspecified organism; R65.20 - Severe sepsis without septic shock; N17.9 - Acute kidney failure, unspecified Code(s): A41.9 - Sepsis, unspecified organism Status: Acute Assessment and Plan: with CAP, treated by hospitalists. (7) ERAN (acute kidney injury): Code(s): N17.9 - Acute kidney failure, unspecified Status: Acute Assessment and Plan: Hydrated; --Daily BMP History of Present Illness History of Present Illness Consult date/time: 01/02/24 09:34 Reason For Visit: Sepsis, CAP Narrative: Bayron Ann is a 63 y.o. male residential resident whom we were asked to see at the request of Dr. Hutton for our advice and opinion regarding his elevated troponins, in consultation. Past medical history of CVA, diabetes, CAD (late presentation MD, CABG x3 with ventricular aneurysm repair 2019 at [facility], perioperative VFib arrest), CHF (EF 25-30%), CKD stage 3. Mr. Ann is not a detailed historian, but complained to me that he had right hand and finger pain, and right lower extremity pain. He was short of breath for couple days, worse yesterday. He presented to the ER from [facility] due to staff reported the patient having shortness of breath, cough and difficulty breathing with O2 sats in the 60s. On EMS arrival he was hypotensive with a blood pressure in the mid 90s and tachycardic with heart rate in the 130s, presumed to be AFib RVR at that time. In the emergency room he was found have a temperature of a 103? and was said to be in atrial fib/ flutter. He was treated for sepsis and pneumonia with iV fluids and antibiotics. He converted to sinus rhythm. His blood pressure is gradually improved. His troponins increased to 6.6. He is on antibiotics, heparin, and came office oxygen today. Blood cultures so far are negative. The patient had no complaints of chest laura
[2024-01-02 11:49] LABS: Glucose Point of Care 153 mg/dl (65-105)
[2024-01-02] MEDS: FERROUS GLUCONATE 324 MG TABLET PO (12:12)
[2024-01-02] MEDS: CEFEPIME 2 GM/NS 50 ML 2 GM/50 ML BAG IVPB ×2 (12:13→23:44)
--- NOTE | 2024-01-02 13:18 | PM.IMPN ---
Progress Note: A&P Assessment and Plan (1) Sepsis: Qualifiers: Acute renal failure type: unspecified Sepsis acute organ dysfunction status: with acute organ dysfunction Sepsis type: sepsis due to unspecified organism Severe sepsis acute organ dysfunction type: acute renal failure Severe sepsis shock status: without septic shock Qualified Code(s): A41.9 - Sepsis, unspecified organism; R65.20 - Severe sepsis without septic shock; N17.9 - Acute kidney failure, unspecified Code(s): A41.9 - Sepsis, unspecified organism Status: Acute Assessment and Plan: Patient presents with sepsis likely due to left lower lobe pneumonia with HoTN, tachycardia, fever and leukocytosis. Patient also had associated ERAN. Patient was given 1.5 L of fluid administration but full fluid administration for 30 mL/kilos not given due to the patient's history of cardiac disease. Patient's symptoms improved significantly after fluid administration with resolution of hypotension. MRSA nasal screen positive. BCx pending IV abx started. Sepsis symptoms improving. (2) Non-ST elevation MT (NSTEMI): Code(s): I21.4 - Non-ST elevation (NSTEMI) myocardial infarction Status: Acute Assessment and Plan: Troponin elevated on admission and has climbed to 6.6. EKG showing wide complex tachycardia with computer reading as AFlutter. Consider run of VTach. Repeat EKG was in NSR with evidence of old AMI and IMI with high lateral T wave changes Concern for NSTEMI but could be related to sustained VTach. Heparin gtt started. Continue ASA, Lipitor. Consider resuming Metoprolol if BP remains stable. Cardiology consulted and discussed. Consider AICD placement Check Echo. (3) CAP (community acquired pneumonia): Qualifiers: Laterality: left Lung location: lower lobe of lung Qualified Code(s): J18.9 - Pneumonia, unspecified organism Code(s): J18.9 - Pneumonia, unspecified organism Status: Acute Assessment and Plan: CXR showing mild interstitial edema and subsegmental left basilar atelectasis/consolidation. UA not consistent with UTI. BCx collected. Influenza, COVID and RSV PCR negative. Suspect PNA to explain the sepsis symptoms Continue IV abx. Check sputum (4) Acute kidney injury superimposed on chronic kidney disease: Code(s): N17.9 - Acute kidney failure, unspecified; N18.9 - Chronic kidney disease, unspecified Status: Acute Assessment and Plan: Patient has acute kidney injury. Chronic kidney disease listed with eGFR>60 but CrCl 70-80 range so probably CKD II at baseline. Cr 1.6 most likely due to sepsis with baseline creatinine is usually less than 1. May be a component of retention. Nursing staff noted patient retaining about 450 mL of urine without feeling to void. Younger catheter was placed Continue home Flomax. Monitor urine output, electrolytes and renal function. (5) Hypoxia: Code(s): R09.02 - Hypoxemia Status: Acute Assessment and Plan: Patient was hypoxic requiring O2 at times but resolved now Related to above Monitor (6) Atrial fibrillation with RVR: Code(s): I48.91 - Unspecified atrial fibrillation Status: Acute Assessment and Plan: Patient with tachycardia on admission with EKG showing wide complex tachycardia with computer reading as AFlutter. Official reading not completed yet. Don't see clear flutter waves. Cardiology following. Considering VTach. (7) Heart failure with reduced ejection fraction: Code(s): I50.20 - Unspecified systolic (congestive) heart failure Status: Acute Assessment and Plan: Echo in May showing EF 20-25% with akinetic and hypokinetic govea, RV enlarged with reduced function and moderated MR with pulmonary HTN CXR results noted but felt less likely CHF and more infectious etiology. BNP 26K but could be from the VTach IV fluids given but not continued Mon
[2024-01-02] MEDS: PERFLUTREN LIPID MICROSPHERES 1.5 ML VIAL DILUTED TO 10 ML TOTAL VOLUME IV PUSH (15:40)
--- NOTE | 2024-01-02 16:13 | IVDEFINITY ---
Prior to administration of IV Definity the patient was educated on the risks and benefits of the imaging enhancing agent including potential adverse side effects. The patient verbalized understanding. Allergies were verified. No exclusion criteria were identified and at least one of the following inclusion criteria were met: 1) physician request, 2) patient technically difficult to image (per the [place] [employer] guidelines of two or more segments not discernable within the apical view), or 3) questionable left ventricular function. ?
[2024-01-02 16:50] LABS: Glucose Point of Care 178 mg/dl (65-105)
[2024-01-02] MEDS: INSULIN GLARGINE (*BKC) 100 UNITS/ML 10 UNITS SUB-Q (20:26)
[2024-01-02] MEDS: TAMSULOSIN HCL 0.4 MG CAPSULE 0.8 MG PO (20:28)
[2024-01-02] MEDS: METOPROLOL TARTRATE 12.5 MG TABLET PO (20:28)
[2024-01-02] MEDS: ATORVASTATIN 40 MG TABLET PO (20:28)
[2024-01-02] MEDS: LATANOPROST 0.005% OP SOLN 2.5 ML BTL 1 DROP EACH EYE (20:29)
[2024-01-02] MEDS: VANCOMYCIN 1,500 MG/NS 500 ML 1,500 MG/500 ML BAG 250 MG IVPB (20:30)
[2024-01-02] MEDS: MICONAZOLE NITRATE 2% CREAM 30 GM TUBE 1 APPLIC TOPICAL (20:30)
[2024-01-02 20:45] LABS: Glucose Point of Care 185 mg/dl (65-105)
[2024-01-03] VITALS (16 sets, daily range): BP systolic 97–164; BP diastolic 60–81; PULSE 67–79; RESP 16–24; TEMP 36.5–37.9; O2SAT 94–98
[2024-01-03 04:16] LABS: Alanine Aminotransferase 23 U/L (6-50); Albumin Level 3.3 g/dL (3.5-5.1); Alkaline Phosphatase 158 U/L (38-126); Anion Gap 8 mmol/L (8-16); Aspartate Amino Transferase 51 U/L (17-59); Bilirubin,Total 1.4 mg/dL (0.2-1.3); Blood Urea Nitrogen 44 mg/dL (9-20); Calcium 8.5 mg/dL (8.4-10.2); Carbon Dioxide 21 mmol/L (22-30); Chloride 104 mmol/L (98-107); Estimated CRCL calculation 50 ml/min; Estimated Glomerular Filt Rate 44; Glucose 145 mg/dL (65-110); Magnesium 2.3 mg/dL (1.6-2.3); Potassium 4.1 mmol/L (3.4-5.0); Sodium 133 mmol/L (137-145)
[2024-01-03 04:41] LABS: Basophils Percent Auto 0.3 % (0.2-1.2); Eosinophils Absolute Auto 0.1 K/mm3 (0-0.3); Eosinophils Percent Auto 1.1 % (0-4.4); Hematocrit 39.5 % (42.0-52.0); Hemoglobin 12.8 g/dL (14.0-18.0); Immature Granulocyte Absolute 0.05 K/mm3 (0.00-0.031); Immature Granulocyte Percent A 0.5 % (0-0.5); Lymphocytes Percent Auto 8.3 % (18.3-44.2); Mean Corpuscular HGB Conc 32.4 g/dl (32-36); Mean Corpuscular Hemoglobin 30.5 pg (26-34); Mean Platelet Volume 12.5 fl (7.4-10.4); Monocytes Absolute Auto 0.9 K/mm3 (0.1-0.6); Monocytes Percent Auto 9.6 % (2.6-8.5); Neutrophils Absolute Auto 7.8 K/mm3 (1.3-6.7); Neutrophils Percent Auto 80.2 % (45.5-73.1); Platelet Count Result 143 k/mm3 (150-375); Red Cell Distribution Width 14.6 % (11.5-14.5); White Blood Count 9.7 K/mm3 (4.5-10.0)
[2024-01-03] MEDS: LEVOTHYROXINE SODIUM 112 MCG TABLET PO (05:18)
[2024-01-03] MEDS: LEVOTHYROXINE SODIUM 25 MCG TABLET PO (05:18)
[2024-01-03 07:41] LABS: Glucose Point of Care 168 mg/dl (65-105)
[2024-01-03] MEDS: EMPAGLIFLOZIN 25 MG TABLET PO (08:29)
[2024-01-03] MEDS: levETIRAcetam 500 MG TABLET PO ×2 (08:29→21:14)
[2024-01-03] MEDS: ASPIRIN 81 MG ENTERIC TABLET PO (08:29)
[2024-01-03] MEDS: DULoxetine HCL 60 MG CAPSULE.DR PO (08:29)
[2024-01-03] MEDS: MAGNESIUM OXIDE 400 MG TABLET PO (08:29)
[2024-01-03] MEDS: ENOXAPARIN 40 MG/0.4 ML SYRINGE SUB-Q (08:29)
[2024-01-03] MEDS: METOPROLOL TARTRATE 12.5 MG TABLET PO ×2 (08:29→21:14)
[2024-01-03] MEDS: BACLOFEN 5 MG TABLET PO ×2 (08:29→17:36)
[2024-01-03] MEDS: THERAPEUTIC MULTIVITAMINS/MINERALS TAB (*BKC) 1 TABLET PO (08:30)
[2024-01-03] MEDS: PANTOPRAZOLE 40 MG TABLET PO (08:30)
[2024-01-03] MEDS: LIDOCAINE 5% PATCH 1 PATCH TRANSDERM (08:30)
[2024-01-03] MEDS: INSULIN ASPART (*BKC) 100 UNITS/ML SUB-Q ×4 (08:30→21:17)
[2024-01-03] MEDS: PREGABALIN (*CRX) 75 MG CAPSULE PO ×2 (08:30→17:36)
[2024-01-03] MEDS: polyethylene glycoL 3350 17 GM POWD.PACK PO (08:30)
[2024-01-03] MEDS: PRIMIDONE 50 MG TABLET PO ×2 (08:30→11:59)
[2024-01-03] MEDS: AZELASTINE HCL NASAL 0.1% 137 MCG/SPR 30 ML BTL 1 SPRAY NASAL ×2 (08:31→21:16)
[2024-01-03] MEDS: ARTIFICIAL TEARS OPHTH SOLN 15 ML BOTTLE 1 DROP EACH EYE ×2 (08:31→21:15)
[2024-01-03] MEDS: BRIMONIDINE TARTRATE 0.2% OP SOLN 5 ML BTL 1 DROP EACH EYE ×2 (08:31→21:15)
[2024-01-03] MEDS: DICLOFENAC SODIUM 1% 100 GM GEL (*BKC) 1 APPLIC TOPICAL ×2 (10:00→17:39)
--- NOTE | 2024-01-03 10:33 | PM.IMPN ---
Progress Note: A&P Assessment and Plan (1) Sepsis: Qualifiers: Acute renal failure type: unspecified Sepsis acute organ dysfunction status: with acute organ dysfunction Sepsis type: sepsis due to unspecified organism Severe sepsis acute organ dysfunction type: acute renal failure Severe sepsis shock status: without septic shock Qualified Code(s): A41.9 - Sepsis, unspecified organism; R65.20 - Severe sepsis without septic shock; N17.9 - Acute kidney failure, unspecified Code(s): A41.9 - Sepsis, unspecified organism Status: Acute Assessment and Plan: Patient presents with sepsis likely due to left lower lobe pneumonia with HoTN, tachycardia, fever and leukocytosis. Patient also had associated ERAN. Patient was given 1.5 L of fluid administration but full fluid administration for 30 mL/kilos not given due to the patient's history of cardiac disease. Patient's symptoms improved significantly after fluid administration with resolution of hypotension. CXR showing mild interstitial edema. UA not consistent with UTI. MRSA nasal screen positive. BCx NGTD. Sepsis from PNA vs SIRS? IV abx started. Sepsis symptoms improving. Continue IV abx for now. (2) Non-ST elevation PR (NSTEMI): Code(s): I21.4 - Non-ST elevation (NSTEMI) myocardial infarction Status: Acute Assessment and Plan: Troponin elevated on admission and has climbed to 6.6. EKG showing wide complex tachycardia concerning for VTach. Repeat EKG was in NSR with evidence of old AMI and IMI with high lateral T wave changes Concern for NSTEMI but elevated Trop could be related to sustained VTach Heparin gtt started but now off. We continued ASA, Lipitor. Metoprolol low dose resumed since BP better. Echo showing EF 20-25%, Grade II diastolic dysfunction, moderate , moderate MR/TR and severe pulm HTN. Potassium and Mag levels okay. Cardiology consulted and appreciate their input. Consider AICD placement (3) CAP (community acquired pneumonia): Qualifiers: Laterality: left Lung location: lower lobe of lung Qualified Code(s): J18.9 - Pneumonia, unspecified organism Code(s): J18.9 - Pneumonia, unspecified organism Status: Acute Assessment and Plan: CXR showing mild interstitial edema and subsegmental left basilar atelectasis/consolidation. UA not consistent with UTI. BCx NGTD. Influenza, COVID and RSV PCR negative. Suspect PNA to explain the sepsis symptoms Continue IV abx. (4) Acute kidney injury superimposed on chronic kidney disease: Code(s): N17.9 - Acute kidney failure, unspecified; N18.9 - Chronic kidney disease, unspecified Status: Acute Assessment and Plan: Patient has acute kidney injury. Chronic kidney disease listed with eGFR>60 but CrCl 70-80 range so probably CKD II at baseline. Cr 1.6 most likely due to sepsis with baseline creatinine is usually less than 1. May be a component of retention. Nursing staff noted patient retaining about 450 mL of urine without feeling to void. Younger catheter was placed Cr unchanged. Continue home Flomax. Monitor urine output, electrolytes and renal function. (5) Hypoxia: Code(s): R09.02 - Hypoxemia Status: Acute Assessment and Plan: Patient was hypoxic requiring O2 at times but resolved now Related to above Monitor (6) Atrial fibrillation with RVR: Code(s): I48.91 - Unspecified atrial fibrillation Status: Acute Assessment and Plan: Patient with tachycardia on admission with EKG showing wide complex tachycardia with computer reading as AFlutter but more likely VTach. Cardiology following. Heparin gtt stopped (7) Heart failure with reduced ejection fraction: Code(s): I50.20 - Unspecified systolic (congestive) heart failure Status: Acute Assessment and Plan: Echo as above CXR results noted but felt less likely CHF and more infectious etiology. BNP
--- NOTE | 2024-01-03 11:18 | PM.PNCARD ---
Progress Note: A&P Assessment and Plan (1) Elevated troponin: Code(s): R79.89 - Other specified abnormal findings of blood chemistry Status: Acute Assessment and Plan: Elevated troponin w/o CP or ischemic EKG changes. Nonspecific troponin elevation 2nd to sustained Ventricular tachycardia, hypoxia, CHF on pre-existing CAD. (2) Ventricular tachycardia: Code(s): I47.20 - Ventricular tachycardia, unspecified Status: Acute Assessment and Plan: Pt's EKG on admission showed sustained ventricular tachycardia with a HR of 130's, fairly stable w/ SBP in 90's, and which spontaneously converted to NSR. Has substrate for VT and is at risk for sudden cardiac . --Resumed BB at lower dose since BP is better, titrate. --discussed risk of sudden cardiac with patient, recommended ICD implantation. Described use of a Life Vest also as a bridge to ICD implant. He had a Life Vest after his CABG and VFib arrest; I believe it was discontinued because of improvement of left ventricular function. He will take this under consideration. --In an attempt to prevent further sustained ventricular tachycardia will add amiodarone 400 mg b.i.d. and wean to a lower dose later. (Note: drug interaction w/ primidone,which I will DC for now. (3) Acute on chronic combined systolic and diastolic CHF (congestive heart failure): Code(s): I50.43 - Acute on chronic combined systolic (congestive) and diastolic (congestive) heart failure Status: Acute Assessment and Plan: Acute CHF 2nd to ventricular tachycardia, sepsis. Also received a lot of IV fluids yesterday for sepsis. May be resolving as pt no longer needs O2. --CXR today showed improvement ( personally reviewed) (4) Ischemic cardiomyopathy: Code(s): I25.5 - Ischemic cardiomyopathy Status: Acute Assessment and Plan: EF 15-20% 05/2023. --Resume guideline-directed medical tx as BP tolerates. -- start metoprolol 12.5 mg b.i.d. -- holding losartan because of a KI and low blood pressure (5) Coronary artery disease: Code(s): I25.10 - Atherosclerotic heart disease of [place] coronary artery without angina pectoris Status: Acute Assessment and Plan: H/O CAD, [place], CABG, ischemic cardiomyopathy. --Cont ASA, atorvastatin (6) Sepsis: Qualifiers: Acute renal failure type: unspecified Sepsis acute organ dysfunction status: with acute organ dysfunction Sepsis type: sepsis due to unspecified organism Severe sepsis acute organ dysfunction type: acute renal failure Severe sepsis shock status: without septic shock Qualified Code(s): A41.9 - Sepsis, unspecified organism; R65.20 - Severe sepsis without septic shock; N17.9 - Acute kidney failure, unspecified Code(s): A41.9 - Sepsis, unspecified organism Status: Acute Assessment and Plan: with CAP, treated by hospitalists. Blood cultures negative so far. (7) ERAN (acute kidney injury): Code(s): N17.9 - Acute kidney failure, unspecified Status: Acute Assessment and Plan: Hydrated but no better --Daily BMP (8) Leg pain: Code(s): M79.606 - Pain in leg, unspecified Status: Acute Assessment and Plan: Complains of persistent severe pain in the right lower leg and also fingers on the right hand. There is erythema around the right 3rd metacarpal and some swelling of the right posterior knee. -- Evaluation and treatment per hospitalist --venous Doppler was negative but that only evaluated the LLE. Will order venous doppler RLE Subjective Date/time seen: 01/03/24 11:18 Interval history: FU for CHF, elevated troponins, sustained ventricular tachycardia, cardiomyopathy. Mr. Ann is a 63 y.o. followed by Dr. Rojas. He has a history of late presentation NC followed by CABG and ventricular aneurysm resection in 2019 at [facility], complicated by a postop VFib arrest and also stroke.
[2024-01-03] MEDS: CEFEPIME 2 GM/NS 50 ML 2 GM/50 ML BAG IVPB (11:59)
[2024-01-03] MEDS: FERROUS GLUCONATE 324 MG TABLET PO (11:59)
[2024-01-03 12:06] LABS: Glucose Point of Care 197 mg/dl (65-105)
--- NOTE | 2024-01-03 13:30 | PCPTNOTE ---
Attempted PT evaluation, pt refused due to R knee pain (RN aware) and RN states he has an ultrasound for BLE pending at this time. Pt states he will be agreeable to therapy after pain medicationa and test.Will follow.
[2024-01-03] MEDS: traMADol HCL (*CRX) 50 MG TABLET 100 MG PO (13:32)
--- NOTE | 2024-01-03 13:55 | PCOTNOTE ---
Received OT evaluation orders. Per PT, pt is declining working with therapy at this time due to pain in LE. Pt also having an ultrasound done soon. Will continue to follow.
[2024-01-03 16:12] LABS: Glucose Point of Care 159 mg/dl (65-105)
[2024-01-03] MEDS: AMIODARONE HCL 200 MG TABLET 400 MG PO (17:36)
--- NOTE | 2024-01-03 18:45 | PC.NURSE ---
This patient, Bayron Ann, was transferred to [[id number]] on 01/03/24 at 1845. Personal belongings sent with patient. Report given to [Nayeli SPRINGER]. Appropriate documentation sent with patient.
--- NOTE | 2024-01-03 18:53 | PC.NURSE ---
This patient, Bayron Ann, was received from [ICU ] on 01/03/24 at 1853. Patient/family oriented to unit policies and routines.
[2024-01-03 19:21] LABS: Vancomycin Trough 15.4 ug/mL (10.0-20.0)
[2024-01-03 20:25] LABS: Glucose Point of Care 227 mg/dl (65-105)
[2024-01-03] MEDS: TAMSULOSIN HCL 0.4 MG CAPSULE 0.8 MG PO (21:14)
[2024-01-03] MEDS: ATORVASTATIN 40 MG TABLET PO (21:14)
[2024-01-03] MEDS: LATANOPROST 0.005% OP SOLN 2.5 ML BTL 1 DROP EACH EYE (21:15)
[2024-01-03] MEDS: MICONAZOLE NITRATE 2% CREAM 30 GM TUBE 1 APPLIC TOPICAL (21:15)
[2024-01-03] MEDS: MUPIROCIN 2% OINT 22 GM TUBE 1 APPLIC EACH NARE (21:16)
[2024-01-03] MEDS: INSULIN GLARGINE (*BKC) 100 UNITS/ML 10 UNITS SUB-Q (21:17)
[2024-01-03] MEDS: VANCOMYCIN 1,500 MG/NS 500 ML 1,500 MG/500 ML BAG 250 MG IVPB (21:35)
[2024-01-04] VITALS (15 sets, daily range): BP systolic 102–127; BP diastolic 62–73; PULSE 63–93; RESP 17–21; TEMP 36.1–36.8; O2SAT 94–100
[2024-01-04] MEDS: BACLOFEN 5 MG TABLET PO ×3 (00:29→17:33)
[2024-01-04] MEDS: CEFEPIME 2 GM/NS 50 ML 2 GM/50 ML BAG IVPB ×2 (00:29→12:34)
[2024-01-04 04:38] LABS: Basophils Absolute Auto 0.1 K/mm3 (0.0-0.1); Basophils Percent Auto 0.6 % (0.2-1.2); Eosinophils Absolute Auto 0.2 K/mm3 (0-0.3); Eosinophils Percent Auto 1.8 % (0-4.4); Hematocrit 39.3 % (42.0-52.0); Hemoglobin 12.6 g/dL (14.0-18.0); Immature Granulocyte Absolute 0.08 K/mm3 (0.00-0.031); Immature Granulocyte Percent A 0.9 % (0-0.5); Lymphocytes Absolute Auto 0.82 K/mm3 (0.9-3.2); Lymphocytes Percent Auto 9.5 % (18.3-44.2); Mean Corpuscular HGB Conc 32.1 g/dl (32-36); Mean Corpuscular Hemoglobin 30.1 pg (26-34); Mean Corpuscular Volume 93.8 fl (80-100); Mean Platelet Volume 12.5 fl (7.4-10.4); Monocytes Absolute Auto 0.9 K/mm3 (0.1-0.6); Monocytes Percent Auto 10.5 % (2.6-8.5); Neutrophils Absolute Auto 6.6 K/mm3 (1.3-6.7); Neutrophils Percent Auto 76.7 % (45.5-73.1); Platelet Count Result 143 k/mm3 (150-375); Red Blood Count 4.19 M/mm3 (4.6-6.20); Red Cell Distribution Width 14.6 % (11.5-14.5); White Blood Count 8.7 K/mm3 (4.5-10.0)
[2024-01-04 04:50] LABS: Alanine Aminotransferase 24 U/L (6-50); Albumin Level 3.1 g/dL (3.5-5.1); Alkaline Phosphatase 182 U/L (38-126); Anion Gap 9 mmol/L (8-16); Aspartate Amino Transferase 46 U/L (17-59); Bilirubin,Total 1.4 mg/dL (0.2-1.3); Blood Urea Nitrogen 46 mg/dL (9-20); Calcium 8.5 mg/dL (8.4-10.2); Carbon Dioxide 19 mmol/L (22-30); Chloride 104 mmol/L (98-107); Estimated CRCL calculation 57 ml/min; Estimated Glomerular Filt Rate 51; Glucose 118 mg/dL (65-110); Magnesium 2.4 mg/dL (1.6-2.3); Potassium 3.9 mmol/L (3.4-5.0); Sodium 132 mmol/L (137-145)
[2024-01-04] MEDS: LEVOTHYROXINE SODIUM 112 MCG TABLET PO (06:16)
[2024-01-04] MEDS: LEVOTHYROXINE SODIUM 25 MCG TABLET PO (06:16)
[2024-01-04 08:15] LABS: Glucose Point of Care 111 mg/dl (65-105)
[2024-01-04] MEDS: THERAPEUTIC MULTIVITAMINS/MINERALS TAB (*BKC) 1 TABLET PO (08:56)
[2024-01-04] MEDS: METOPROLOL TARTRATE 12.5 MG TABLET PO ×2 (08:56→20:43)
[2024-01-04] MEDS: AMIODARONE HCL 200 MG TABLET 400 MG PO ×2 (08:56→17:33)
[2024-01-04] MEDS: EMPAGLIFLOZIN 25 MG TABLET PO (08:57)
[2024-01-04] MEDS: PREGABALIN (*CRX) 75 MG CAPSULE PO ×2 (08:57→17:33)
[2024-01-04] MEDS: MUPIROCIN 2% OINT 22 GM TUBE 1 APPLIC EACH NARE ×2 (08:57→20:42)
[2024-01-04] MEDS: ENOXAPARIN 40 MG/0.4 ML SYRINGE SUB-Q (08:57)
[2024-01-04] MEDS: levETIRAcetam 500 MG TABLET PO ×2 (08:57→20:42)
[2024-01-04] MEDS: ASPIRIN 81 MG ENTERIC TABLET PO (08:57)
[2024-01-04] MEDS: MAGNESIUM OXIDE 400 MG TABLET PO (08:57)
[2024-01-04] MEDS: PANTOPRAZOLE 40 MG TABLET PO (08:57)
[2024-01-04] MEDS: polyethylene glycoL 3350 17 GM POWD.PACK PO (08:57)
[2024-01-04] MEDS: BRIMONIDINE TARTRATE 0.2% OP SOLN 5 ML BTL 1 DROP EACH EYE ×2 (08:57→20:40)
[2024-01-04] MEDS: DULoxetine HCL 60 MG CAPSULE.DR PO (08:57)
[2024-01-04] MEDS: ARTIFICIAL TEARS OPHTH SOLN 15 ML BOTTLE 1 DROP EACH EYE ×2 (08:58→20:39)
[2024-01-04] MEDS: INSULIN ASPART (*BKC) 100 UNITS/ML SUB-Q ×3 (08:58→17:33)
[2024-01-04] MEDS: AZELASTINE HCL NASAL 0.1% 137 MCG/SPR 30 ML BTL 1 SPRAY NASAL ×2 (08:58→20:39)
[2024-01-04] MEDS: LIDOCAINE 5% PATCH 1 PATCH TRANSDERM ×2 (08:59)
[2024-01-04 12:31] LABS: Glucose Point of Care 194 mg/dl (65-105)
[2024-01-04] MEDS: FERROUS GLUCONATE 324 MG TABLET PO (12:34)
--- NOTE | 2024-01-04 14:16 | PM.PNCARD ---
Progress Note: A&P Assessment and Plan (1) Elevated troponin: Code(s): R79.89 - Other specified abnormal findings of blood chemistry Status: Acute Assessment and Plan: Elevated troponin w/o CP or ischemic EKG changes. Nonspecific troponin elevation 2nd to sustained Ventricular tachycardia, hypoxia, CHF on pre-existing CAD. (2) Ventricular tachycardia: Code(s): I47.20 - Ventricular tachycardia, unspecified Status: Acute Assessment and Plan: Pt's EKG on admission showed sustained ventricular tachycardia with a HR of 130's, fairly stable w/ SBP in 90's, and which spontaneously converted to NSR. Has substrate for VT and is at risk for sudden cardiac . --Resumed BB at lower dose since BP is better, titrate as able. --discussed risk of sudden cardiac with patient, recommended ICD implantation. Described use of a Life Vest also as a bridge to ICD implant. He had a Life Vest after his CABG and VFib arrest. He has considered LifeVest on d/c from this admission and declines at this time - he states he doesn't want to carry the battery equipment. I re-educated him about the risk of SCD in the absence of LifeVest and his particular risk given presentation with VT. He verbalizes understanding and still wishes to decline LifeVest at this time. --In an attempt to prevent further sustained ventricular tachycardia will add amiodarone 400 mg b.i.d. and wean to a lower dose later. (3) Acute on chronic combined systolic and diastolic CHF (congestive heart failure): Code(s): I50.43 - Acute on chronic combined systolic (congestive) and diastolic (congestive) heart failure Status: Acute Assessment and Plan: Acute CHF 2nd to ventricular tachycardia, sepsis. Also received a lot of IV fluids yesterday for sepsis. May be resolving as pt no longer needs O2. (4) Ischemic cardiomyopathy: Code(s): I25.5 - Ischemic cardiomyopathy Status: Acute Assessment and Plan: EF 15-20% 05/2023. --Resume guideline-directed medical tx as BP tolerates. -- start metoprolol 12.5 mg b.i.d. -- holding losartan because of and low blood pressure. Resume when appropriate. (5) Coronary artery disease: Code(s): I25.10 - Atherosclerotic heart disease of [place] coronary artery without angina pectoris Status: Acute Assessment and Plan: H/O CAD, [place], CABG, ischemic cardiomyopathy. --Cont ASA, atorvastatin (6) Sepsis: Qualifiers: Acute renal failure type: unspecified Sepsis acute organ dysfunction status: with acute organ dysfunction Sepsis type: sepsis due to unspecified organism Severe sepsis acute organ dysfunction type: acute renal failure Severe sepsis shock status: without septic shock Qualified Code(s): A41.9 - Sepsis, unspecified organism; R65.20 - Severe sepsis without septic shock; N17.9 - Acute kidney failure, unspecified Code(s): A41.9 - Sepsis, unspecified organism Status: Acute Assessment and Plan: with CAP, treated by hospitalists. Blood cultures negative so far. (7) ERAN (acute kidney injury): Code(s): N17.9 - Acute kidney failure, unspecified Status: Acute Assessment and Plan: --Daily BMP (8) Leg pain: Code(s): M79.606 - Pain in leg, unspecified Status: Acute Assessment and Plan: Complains of persistent severe pain in the right lower leg and also fingers on the right hand. There is erythema around the right 3rd metacarpal and some swelling of the right posterior knee. -- Evaluation and treatment per hospitalist (9) Joint pain: Code(s): M25.50 - Pain in unspecified joint Status: Acute Assessment and Plan: Synovitis and erythema of right 3rd MCP, R knee consistent with arthritis....gouty arthritis vs. viral/infectious vs. RA. He does have hx gout. Will check uric acid level. Further workup per hospitalist Subjective Date/time seen: 01/04/24 14:
--- NOTE | 2024-01-04 16:13 | PM.IMPN ---
Progress Note: A&P Assessment and Plan (1) Sepsis: Qualifiers: Acute renal failure type: unspecified Sepsis acute organ dysfunction status: with acute organ dysfunction Sepsis type: sepsis due to unspecified organism Severe sepsis acute organ dysfunction type: acute renal failure Severe sepsis shock status: without septic shock Qualified Code(s): A41.9 - Sepsis, unspecified organism; R65.20 - Severe sepsis without septic shock; N17.9 - Acute kidney failure, unspecified Code(s): A41.9 - Sepsis, unspecified organism Status: Acute Assessment and Plan: Patient presents with sepsis likely due to LLL PNA with HoTN, tachycardia, fever and leukocytosis. Patient also had associated ERAN. Patient given 1.5 L but full fluid administration for 30 mL/kilos not given due to the patient's history of cardiac disease. Patient's symptoms improved significantly after fluid administration with resolution of hypotension. CXR showing mild interstitial edema. UA not consistent with UTI. MRSA nasal screen positive. BCx NGTD. Sepsis from PNA vs SIRS? IV abx started. Sepsis symptoms improving. Continue IV abx for now. (2) Non-ST elevation [place] (NSTEMI): Code(s): I21.4 - Non-ST elevation (NSTEMI) myocardial infarction Status: Acute Assessment and Plan: Troponin elevated on admission and has climbed to 6.6. EKG showing wide complex tachycardia concerning for VTach. Repeat EKG was in NSR with evidence of old AMI and IMI with high lateral T wave changes Concern for NSTEMI but elevated Trop could be related to sustained VTach Heparin gtt started but now off. We continued ASA, Lipitor. Metoprolol low dose resumed since BP better. Echo showing EF 20-25%, Grade II diastolic dysfunction, moderate , moderate MR/TR and severe pulm HTN. Potassium and Mag levels okay. Continue ASA, metoprolol and Lipitor. Cardiology consulted and appreciate their input. (3) Ventricular tachycardia: Code(s): I47.20 - Ventricular tachycardia, unspecified Status: Acute Assessment and Plan: Patient with tachycardia on admission with EKG showing wide complex tachycardia with computer reading as AFlutter but more likely VTach. Cardiology following. Heparin gtt stopped Amiodarone started. (4) CAP (community acquired pneumonia): Qualifiers: Laterality: left Lung location: lower lobe of lung Qualified Code(s): J18.9 - Pneumonia, unspecified organism Code(s): J18.9 - Pneumonia, unspecified organism Status: Acute Assessment and Plan: CXR showing mild interstitial edema and subsegmental left basilar atelectasis/consolidation. UA not consistent with UTI. BCx NGTD. Influenza, COVID and RSV PCR negative. Suspect PNA to explain the sepsis symptoms WBC normal. Fever resolving. Continue IV abx. (5) Acute on chronic combined systolic and diastolic CHF (congestive heart failure): Code(s): I50.43 - Acute on chronic combined systolic (congestive) and diastolic (congestive) heart failure Status: Acute Assessment and Plan: Echo as above. Patient with acute on chronic systolic and diastolic CHF. CXR results noted. BNP 26K but could be from the VTach IV fluids given but not continued Monitor fluid status Continue empagliflozin. Metoprol added and tolerating. (6) Acute kidney injury superimposed on chronic kidney disease: Code(s): N17.9 - Acute kidney failure, unspecified; N18.9 - Chronic kidney disease, unspecified Status: Acute Assessment and Plan: Patient has acute kidney injury. Chronic kidney disease listed with eGFR>60 but CrCl 70-80 range so probably CKD II at baseline. Cr 1.6 most likely due to sepsis with baseline creatinine is usually less than 1. May be a component of retention. Nursing staff noted patient retaining about 450 mL of urine without feeling to void. Younger catheter was placed Cr better at 1.4 Continue home Floma
[2024-01-04 17:39] LABS: Glucose Point of Care 159 mg/dl (65-105)
[2024-01-04 18:35] LABS: Uric Acid 9.4 mg/dL (3.5-8.5)
[2024-01-04] MEDS: traMADol HCL (*CRX) 50 MG TABLET 100 MG PO (18:51)
[2024-01-04 20:09] LABS: Glucose Point of Care 188 mg/dl (65-105)
[2024-01-04] MEDS: COLCHICINE 0.6 MG TABLET PO (20:38)
[2024-01-04] MEDS: VANCOMYCIN 1,500 MG/NS 500 ML 1,500 MG/500 ML BAG 250 MG IVPB (20:38)
[2024-01-04] MEDS: ATORVASTATIN 40 MG TABLET PO (20:39)
[2024-01-04] MEDS: INSULIN GLARGINE (*BKC) 100 UNITS/ML 10 UNITS SUB-Q (20:41)
[2024-01-04] MEDS: LATANOPROST 0.005% OP SOLN 2.5 ML BTL 1 DROP EACH EYE (20:42)
[2024-01-04] MEDS: TAMSULOSIN HCL 0.4 MG CAPSULE 0.8 MG PO (20:42)
[2024-01-04] MEDS: MICONAZOLE NITRATE 2% CREAM 30 GM TUBE 1 APPLIC TOPICAL (20:43)
[2024-01-05] VITALS (19 sets, daily range): BP systolic 97–125; BP diastolic 62–76; PULSE 63–74; RESP 18–20; TEMP 36.1–36.6; O2SAT 93–98
[2024-01-05] MEDS: CEFEPIME 2 GM/NS 50 ML 2 GM/50 ML BAG IVPB (00:16)
[2024-01-05] MEDS: BACLOFEN 5 MG TABLET PO ×3 (00:17→17:47)
[2024-01-05 05:08] LABS: Basophils Percent Auto 0.3 % (0.2-1.2); Eosinophils Absolute Auto 0.1 K/mm3 (0-0.3); Eosinophils Percent Auto 1.6 % (0-4.4); Hematocrit 38.3 % (42.0-52.0); Hemoglobin 12.2 g/dL (14.0-18.0); Immature Granulocyte Absolute 0.08 K/mm3 (0.00-0.031); Immature Granulocyte Percent A 0.9 % (0-0.5); Lymphocytes Absolute Auto 0.53 K/mm3 (0.9-3.2); Mean Corpuscular HGB Conc 31.9 g/dl (32-36); Mean Corpuscular Hemoglobin 30.2 pg (26-34); Mean Corpuscular Volume 94.8 fl (80-100); Mean Platelet Volume 12.4 fl (7.4-10.4); Monocytes Absolute Auto 0.9 K/mm3 (0.1-0.6); Monocytes Percent Auto 9.6 % (2.6-8.5); Neutrophils Absolute Auto 7.3 K/mm3 (1.3-6.7); Neutrophils Percent Auto 81.6 % (45.5-73.1); Platelet Count Result 150 k/mm3 (150-375); Red Blood Count 4.04 M/mm3 (4.6-6.20); Red Cell Distribution Width 14.5 % (11.5-14.5); White Blood Count 8.9 K/mm3 (4.5-10.0)
[2024-01-05 05:20] LABS: Alanine Aminotransferase 22 U/L (6-50); Albumin Level 3.1 g/dL (3.5-5.1); Alkaline Phosphatase 212 U/L (38-126); Anion Gap 8 mmol/L (8-16); Aspartate Amino Transferase 38 U/L (17-59); Bilirubin,Total 1.2 mg/dL (0.2-1.3); Blood Urea Nitrogen 47 mg/dL (9-20); Calcium 8.4 mg/dL (8.4-10.2); Carbon Dioxide 19 mmol/L (22-30); Chloride 104 mmol/L (98-107); Estimated CRCL calculation 61 ml/min; Estimated Glomerular Filt Rate 55; Glucose 136 mg/dL (65-110); Magnesium 2.5 mg/dL (1.6-2.3); Potassium 3.8 mmol/L (3.4-5.0); Sodium 131 mmol/L (137-145)
[2024-01-05] MEDS: LEVOTHYROXINE SODIUM 112 MCG TABLET PO (06:30)
[2024-01-05] MEDS: LEVOTHYROXINE SODIUM 25 MCG TABLET PO (06:30)
[2024-01-05] MEDS: ENOXAPARIN 40 MG/0.4 ML SYRINGE SUB-Q (08:45)
[2024-01-05] MEDS: PANTOPRAZOLE 40 MG TABLET PO (08:46)
[2024-01-05] MEDS: ASPIRIN 81 MG ENTERIC TABLET PO (08:46)
[2024-01-05] MEDS: MAGNESIUM OXIDE 400 MG TABLET PO (08:46)
[2024-01-05] MEDS: METOPROLOL TARTRATE 12.5 MG TABLET PO ×2 (08:46→21:43)
[2024-01-05] MEDS: PREGABALIN (*CRX) 75 MG CAPSULE PO ×2 (08:46→17:47)
[2024-01-05] MEDS: THERAPEUTIC MULTIVITAMINS/MINERALS TAB (*BKC) 1 TABLET PO (08:46)
[2024-01-05] MEDS: AMIODARONE HCL 200 MG TABLET 400 MG PO ×2 (08:47→17:47)
[2024-01-05] MEDS: DULoxetine HCL 60 MG CAPSULE.DR PO (08:47)
[2024-01-05] MEDS: levETIRAcetam 500 MG TABLET PO ×2 (08:47→21:43)
[2024-01-05] MEDS: BRIMONIDINE TARTRATE 0.2% OP SOLN 5 ML BTL 1 DROP EACH EYE ×2 (08:48→21:46)
[2024-01-05] MEDS: AZELASTINE HCL NASAL 0.1% 137 MCG/SPR 30 ML BTL 1 SPRAY NASAL ×2 (08:48→21:45)
[2024-01-05] MEDS: ARTIFICIAL TEARS OPHTH SOLN 15 ML BOTTLE 1 DROP EACH EYE ×2 (08:48→21:45)
[2024-01-05] MEDS: LIDOCAINE 5% PATCH 1 PATCH TRANSDERM ×2 (08:49→08:50)
[2024-01-05] MEDS: EMPAGLIFLOZIN 25 MG TABLET PO (08:49)
[2024-01-05] MEDS: MUPIROCIN 2% OINT 22 GM TUBE 1 APPLIC EACH NARE ×2 (08:50→21:46)
[2024-01-05] MEDS: polyethylene glycoL 3350 17 GM POWD.PACK PO (08:51)
[2024-01-05] MEDS: INSULIN ASPART (*BKC) 100 UNITS/ML SUB-Q ×4 (08:51→21:47)
[2024-01-05 09:14] LABS: Glucose Point of Care 126 mg/dl (65-105)
--- NOTE | 2024-01-05 11:14 | PM.PNCARD ---
Progress Note: A&P Assessment and Plan (1) Elevated troponin: Code(s): R79.89 - Other specified abnormal findings of blood chemistry Status: Acute Assessment and Plan: Elevated troponin w/o CP or ischemic EKG changes. Nonspecific troponin elevation 2nd to sustained Ventricular tachycardia, hypoxia, CHF on pre-existing CAD. (2) Ventricular tachycardia: Code(s): I47.20 - Ventricular tachycardia, unspecified Status: Acute Assessment and Plan: Pt's EKG on admission showed sustained ventricular tachycardia with a HR of 130's, fairly stable w/ SBP in 90's, and which spontaneously converted to NSR. Has substrate for VT and is at risk for sudden cardiac . --Resumed BB at lower dose since BP is better, titrate as able. --discussed risk of sudden cardiac with patient, recommended ICD implantation. Described use of a Life Vest also as a bridge to ICD implant. He had a Life Vest after his CABG and VFib arrest. He has considered LifeVest on d/c from this admission and declines at this time - he states he doesn't want to carry the battery equipment. I re-educated him about the risk of SCD in the absence of LifeVest and his particular risk given presentation with VT. He verbalizes understanding and still wishes to decline LifeVest at this time. --continue amiodarone (3) Acute on chronic combined systolic and diastolic CHF (congestive heart failure): Code(s): I50.43 - Acute on chronic combined systolic (congestive) and diastolic (congestive) heart failure Status: Acute Assessment and Plan: Acute CHF 2nd to ventricular tachycardia, sepsis. Diuresis as needed. May be resolving as pt no longer needs O2. (4) Ischemic cardiomyopathy: Code(s): I25.5 - Ischemic cardiomyopathy Status: Acute Assessment and Plan: EF 15-20% 05/2023. --Resume guideline-directed medical tx as BP tolerates. --continue metoprolol 12.5 mg b.i.d. -- holding losartan because of and low blood pressure. Resume when appropriate. (5) Coronary artery disease: Code(s): I25.10 - Atherosclerotic heart disease of [place] coronary artery without angina pectoris Status: Acute Assessment and Plan: H/O CAD, [place], CABG, ischemic cardiomyopathy. --Cont ASA, atorvastatin (6) Sepsis: Qualifiers: Acute renal failure type: unspecified Sepsis acute organ dysfunction status: with acute organ dysfunction Sepsis type: sepsis due to unspecified organism Severe sepsis acute organ dysfunction type: acute renal failure Severe sepsis shock status: without septic shock Qualified Code(s): A41.9 - Sepsis, unspecified organism; R65.20 - Severe sepsis without septic shock; N17.9 - Acute kidney failure, unspecified Code(s): A41.9 - Sepsis, unspecified organism Status: Acute Assessment and Plan: with CAP, treated by hospitalists. Blood cultures negative so far. (7) ERAN (acute kidney injury): Code(s): N17.9 - Acute kidney failure, unspecified Status: Acute Assessment and Plan: --Daily BMP (8) Leg pain: Code(s): M79.606 - Pain in leg, unspecified Status: Acute Assessment and Plan: Complains of persistent severe pain in the right lower leg and also fingers on the right hand. There is erythema around the right 3rd metacarpal and some swelling of the right posterior knee. -- Evaluation and treatment per hospitalist (9) Joint pain: Code(s): M25.50 - Pain in unspecified joint Status: Acute Assessment and Plan: Synovitis and erythema of right 3rd MCP, R knee consistent with arthritis....gouty arthritis vs. viral/infectious vs. RA. He does have hx gout. Further workup per hospitalist Subjective Date/time seen: 01/05/24 11:14 Interval history: FU for CHF, elevated troponins, sustained ventricular tachycardia, cardiomyopathy. Mr. Ann is a 63 y.o[address] followed by Dr. Rojas. He has a his
[2024-01-05 11:55] LABS: Glucose Point of Care 140 mg/dl (65-105)
--- NOTE | 2024-01-05 12:09 | PM.IMPN ---
Progress Note: A&P Assessment and Plan (1) Sepsis: Qualifiers: Acute renal failure type: unspecified Sepsis acute organ dysfunction status: with acute organ dysfunction Sepsis type: sepsis due to unspecified organism Severe sepsis acute organ dysfunction type: acute renal failure Severe sepsis shock status: without septic shock Qualified Code(s): A41.9 - Sepsis, unspecified organism; R65.20 - Severe sepsis without septic shock; N17.9 - Acute kidney failure, unspecified Code(s): A41.9 - Sepsis, unspecified organism Status: Acute Assessment and Plan: Patient presents with sepsis likely due to LLL PNA with HoTN, tachycardia, fever and leukocytosis. Patient also had associated ERAN. Patient given 1.5 L but full fluid administration for 30 mL/kgs not given due to the patient's history of cardiac disease. Patient's symptoms improved significantly after fluid administration with resolution of hypotension. CXR showing mild interstitial edema. UA not consistent with UTI. MRSA nasal screen positive. BCx NGTD. Sputum pending Sepsis from PNA vs SIRS? IV abx started 01/01. Sepsis symptoms improving. WBC normal. Fevers resolving. Continue abx for now. Change to oral abx (2) Non-ST elevation [place] (NSTEMI): Code(s): I21.4 - Non-ST elevation (NSTEMI) myocardial infarction Status: Acute Assessment and Plan: Troponin elevated on admission and has climbed to 6.6. EKG showing wide complex tachycardia concerning for VTach. Repeat EKG was in NSR with evidence of old AMI and IMI with high lateral T wave changes Concern for NSTEMI but elevated Trop could be related to sustained VTach Heparin gtt started but now off. We continued ASA, Lipitor. Metoprolol low dose resumed since BP better. Echo showing EF 20-25%, Grade II diastolic dysfunction, moderate , moderate MR/TR and severe pulm HTN. Mag levels okay. Potassium 3.8 so will replace to keep above 4 Continue ASA, metoprolol and Lipitor. Cardiology consulted and appreciate their input. (3) Ventricular tachycardia: Code(s): I47.20 - Ventricular tachycardia, unspecified Status: Acute Assessment and Plan: Patient with tachycardia on admission with EKG showing wide complex tachycardia with computer reading as AFlutter but more likely VTach. Cardiology following and appreciate their input. Echo as above. Heparin gtt but now stopped Amiodarone started. No recurrence by tele Continue Amio. Continue to monitor on tele. (4) CAP (community acquired pneumonia): Qualifiers: Laterality: left Lung location: lower lobe of lung Qualified Code(s): J18.9 - Pneumonia, unspecified organism Code(s): J18.9 - Pneumonia, unspecified organism Status: Acute Assessment and Plan: CXR showing mild interstitial edema and subsegmental left basilar atelectasis/consolidation. UA not consistent with UTI. BCx NGTD. Influenza, COVID and RSV PCR negative. Suspect PNA to explain the sepsis symptoms WBC normal. Fever resolving. Continue abx. (5) Acute on chronic combined systolic and diastolic CHF (congestive heart failure): Code(s): I50.43 - Acute on chronic combined systolic (congestive) and diastolic (congestive) heart failure Status: Acute Assessment and Plan: Echo as above. Patient with acute on chronic systolic and diastolic CHF. CXR results noted. BNP 26K but could be from the VTach IV fluids given but not continued. No Lasix given. BP better. Monitor fluid status Continue empagliflozin. Metoprol added and tolerating. (6) Acute kidney injury superimposed on chronic kidney disease: Code(s): N17.9 - Acute kidney failure, unspecified; N18.9 - Chronic kidney disease, unspecified Status: Acute Assessment and Plan: Patient has acute kidney injury. Chronic kidney disease listed with eGFR>60 but CrCl 70-80 range so probably CKD II at baseline. Cr 1.6 most likely due to sepsis w
[2024-01-05] MEDS: POTASSIUM CHLORIDE 20 MEQ ER TABLET PO (13:01)
[2024-01-05] MEDS: predniSONE 20 MG TABLET 40 MG PO (13:01)
[2024-01-05] MEDS: FERROUS GLUCONATE 324 MG TABLET PO (13:02)
[2024-01-05 17:03] LABS: Glucose Point of Care 184 mg/dl (65-105)
[2024-01-05 20:28] LABS: Glucose Point of Care 208 mg/dl (65-105)
[2024-01-05] MEDS: TAMSULOSIN HCL 0.4 MG CAPSULE 0.8 MG PO (21:42)
[2024-01-05] MEDS: ATORVASTATIN 40 MG TABLET PO (21:43)
[2024-01-05] MEDS: DOXYCYCLINE HYCLATE 100 MG TABLET PO (21:43)
[2024-01-05] MEDS: AMOXICILLIN/CLAVULANATE K 875-125 MG TAB 1 TABLET PO (21:43)
[2024-01-05] MEDS: LATANOPROST 0.005% OP SOLN 2.5 ML BTL 1 DROP EACH EYE (21:48)
[2024-01-05] MEDS: INSULIN GLARGINE (*BKC) 100 UNITS/ML 10 UNITS SUB-Q (21:48)
[2024-01-05] MEDS: MICONAZOLE NITRATE 2% CREAM 30 GM TUBE 1 APPLIC TOPICAL (21:49)
[2024-01-06] VITALS (19 sets, daily range): BP systolic 110–139; BP diastolic 64–78; PULSE 56–74; RESP 16–20; TEMP 36.1–36.7; O2SAT 95–97
[2024-01-06] MEDS: BACLOFEN 5 MG TABLET PO ×4 (00:37→23:35)
[2024-01-06 01:04] LABS: Glucose Point of Care 174 mg/dl (65-105)
[2024-01-06 04:45] LABS: Anion Gap 11 mmol/L (8-16); Blood Urea Nitrogen 47 mg/dL (9-20); Calcium 8.7 mg/dL (8.4-10.2); Carbon Dioxide 18 mmol/L (22-30); Chloride 106 mmol/L (98-107); Estimated CRCL calculation 65 ml/min; Estimated Glomerular Filt Rate > 60; Glucose 162 mg/dL (65-110); Potassium 4.8 mmol/L (3.4-5.0); Sodium 135 mmol/L (137-145)
[2024-01-06] MEDS: LEVOTHYROXINE SODIUM 112 MCG TABLET PO (06:17)
[2024-01-06] MEDS: LEVOTHYROXINE SODIUM 25 MCG TABLET PO (06:17)
[2024-01-06 08:09] LABS: Glucose Point of Care 165 mg/dl (65-105)
[2024-01-06] MEDS: polyethylene glycoL 3350 17 GM POWD.PACK PO (08:40)
[2024-01-06] MEDS: DOXYCYCLINE HYCLATE 100 MG TABLET PO ×2 (08:41→20:25)
[2024-01-06] MEDS: AMOXICILLIN/CLAVULANATE K 875-125 MG TAB 1 TABLET PO ×2 (08:41→20:26)
[2024-01-06] MEDS: ASPIRIN 81 MG ENTERIC TABLET PO (08:41)
[2024-01-06] MEDS: ARTIFICIAL TEARS OPHTH SOLN 15 ML BOTTLE 1 DROP EACH EYE ×2 (08:41→20:30)
[2024-01-06] MEDS: BRIMONIDINE TARTRATE 0.2% OP SOLN 5 ML BTL 1 DROP EACH EYE ×2 (08:41→20:30)
[2024-01-06] MEDS: PANTOPRAZOLE 40 MG TABLET PO (08:41)
[2024-01-06] MEDS: ENOXAPARIN 40 MG/0.4 ML SYRINGE SUB-Q (08:41)
[2024-01-06] MEDS: MAGNESIUM OXIDE 400 MG TABLET PO (08:41)
[2024-01-06] MEDS: DULoxetine HCL 60 MG CAPSULE.DR PO (08:42)
[2024-01-06] MEDS: AMIODARONE HCL 200 MG TABLET 400 MG PO ×2 (08:42→17:27)
[2024-01-06] MEDS: SODIUM BICARBONATE TAB 650 MG TABLET PO ×2 (08:42→17:27)
[2024-01-06] MEDS: levETIRAcetam 500 MG TABLET PO ×2 (08:42→20:26)
[2024-01-06] MEDS: predniSONE 20 MG TABLET 40 MG PO (08:42)
[2024-01-06] MEDS: THERAPEUTIC MULTIVITAMINS/MINERALS TAB (*BKC) 1 TABLET PO (08:43)
[2024-01-06] MEDS: PREGABALIN (*CRX) 75 MG CAPSULE PO ×2 (08:43→17:27)
[2024-01-06] MEDS: METOPROLOL TARTRATE 12.5 MG TABLET PO (08:43)
[2024-01-06] MEDS: AZELASTINE HCL NASAL 0.1% 137 MCG/SPR 30 ML BTL 1 SPRAY NASAL ×2 (08:43→20:28)
[2024-01-06] MEDS: EMPAGLIFLOZIN 25 MG TABLET PO (08:43)
[2024-01-06] MEDS: MUPIROCIN 2% OINT 22 GM TUBE 1 APPLIC EACH NARE ×2 (08:43→21:57)
[2024-01-06] MEDS: LIDOCAINE 5% PATCH 1 PATCH TRANSDERM ×2 (08:44)
[2024-01-06] MEDS: INSULIN ASPART (*BKC) 100 UNITS/ML SUB-Q ×5 (08:45→21:50)
--- NOTE | 2024-01-06 09:47 | PM.PNCARD ---
Progress Note: A&P Assessment and Plan (1) Elevated troponin: Code(s): R79.89 - Other specified abnormal findings of blood chemistry Status: Acute Assessment and Plan: Elevated troponin w/o CP or ischemic EKG changes. Nonspecific troponin elevation 2nd to sustained Ventricular tachycardia, hypoxia, CHF on pre-existing CAD. (2) Ventricular tachycardia: Code(s): I47.20 - Ventricular tachycardia, unspecified Status: Acute Assessment and Plan: Pt's EKG on admission showed sustained ventricular tachycardia with a HR of 130's, fairly stable w/ SBP in 90's, and which spontaneously converted to NSR. Has substrate for VT and is at risk for sudden cardiac . --Resumed BB at lower dose since BP is better, titrate as able. --discussed risk of sudden cardiac with patient, recommended ICD implantation. Described use of a Life Vest also as a bridge to ICD implant. He had a Life Vest after his CABG and VFib arrest. He has considered LifeVest on d/c from this admission and declines at this time - he states he doesn't want to carry the battery equipment. I re-educated him about the risk of SCD in the absence of LifeVest and his particular risk given presentation with VT. He verbalizes understanding and still wishes to decline LifeVest at this time. --continue amiodarone (3) Acute on chronic combined systolic and diastolic CHF (congestive heart failure): Code(s): I50.43 - Acute on chronic combined systolic (congestive) and diastolic (congestive) heart failure Status: Acute Assessment and Plan: Diuresis as needed. May be resolving as pt no longer needs O2. (4) Ischemic cardiomyopathy: Code(s): I25.5 - Ischemic cardiomyopathy Status: Acute Assessment and Plan: EF 15-20% 05/2023. --Resume guideline-directed medical tx as BP tolerates. DC short-acting metoprolol and start metoprolol succinate 25 mg daily (5) Coronary artery disease: Code(s): I25.10 - Atherosclerotic heart disease of [place] coronary artery without angina pectoris Status: Acute Assessment and Plan: H/O CAD, HI, CABG, ischemic cardiomyopathy. --Cont ASA, atorvastatin (6) Sepsis: Qualifiers: Acute renal failure type: unspecified Sepsis acute organ dysfunction status: with acute organ dysfunction Sepsis type: sepsis due to unspecified organism Severe sepsis acute organ dysfunction type: acute renal failure Severe sepsis shock status: without septic shock Qualified Code(s): A41.9 - Sepsis, unspecified organism; R65.20 - Severe sepsis without septic shock; N17.9 - Acute kidney failure, unspecified Code(s): A41.9 - Sepsis, unspecified organism Status: Acute Assessment and Plan: with CAP, treated by hospitalists. Blood cultures negative so far. (7) ERAN (acute kidney injury): Code(s): N17.9 - Acute kidney failure, unspecified Status: Acute Assessment and Plan: --Daily BMP (8) Leg pain: Code(s): M79.606 - Pain in leg, unspecified Status: Acute Assessment and Plan: Complains of persistent severe pain in the right lower leg and also fingers on the right hand. There is erythema around the right 3rd metacarpal and some swelling of the right posterior knee. -- Evaluation and treatment per hospitalist (9) Joint pain: Code(s): M25.50 - Pain in unspecified joint Status: Acute Assessment and Plan: Synovitis and erythema of right 3rd MCP, R knee consistent with arthritis....gouty arthritis vs. viral/infectious vs. RA. He does have hx gout. Further workup per hospitalist Subjective Date/time seen: 01/06/24 09:47 Interval history: FU for CHF, elevated troponins, sustained ventricular tachycardia, cardiomyopathy. Mr. Ann is a 63 y[address] followed by Dr. Rojas. He has a history of late presentation HI followed by CABG and ventricular aneurysm resection in 2019 at [facility]
[2024-01-06 11:39] LABS: Glucose Point of Care 160 mg/dl (65-105)
[2024-01-06] MEDS: FERROUS GLUCONATE 324 MG TABLET PO (12:20)
--- NOTE | 2024-01-06 13:54 | PM.IMPN ---
Progress Note: A&P Assessment and Plan (1) Sepsis: Qualifiers: Acute renal failure type: unspecified Sepsis acute organ dysfunction status: with acute organ dysfunction Sepsis type: sepsis due to unspecified organism Severe sepsis acute organ dysfunction type: acute renal failure Severe sepsis shock status: without septic shock Qualified Code(s): A41.9 - Sepsis, unspecified organism; R65.20 - Severe sepsis without septic shock; N17.9 - Acute kidney failure, unspecified Code(s): A41.9 - Sepsis, unspecified organism Status: Acute Assessment and Plan: Patient presents with sepsis likely due to LLL PNA with HoTN, tachycardia, fever and leukocytosis. Patient also had associated ERAN. Patient given IV fluids but full fluid administration for 30 mL/kgs not given due to the patient's history of cardiac disease. Patient's symptoms improved significantly after fluid administration with resolution of hypotension. CXR showed mild interstitial edema. UA was not consistent with UTI. MRSA nasal screen positive. BCx NGTD. Sputum not performed. Sepsis from PNA IV abx started 01/01. Sepsis symptoms improving. WBC normal. Fevers resolving. Changed to oral. Continue abx for now. (2) Non-ST elevation NE (NSTEMI): Code(s): I21.4 - Non-ST elevation (NSTEMI) myocardial infarction Status: Acute Assessment and Plan: Troponin elevated on admission and has climbed to 6.6. EKG showing wide complex tachycardia concerning for VTach. Repeat EKG was in NSR with evidence of old AMI and IMI with high lateral T wave changes Concern for NSTEMI but elevated Trop could be related to sustained VTach Heparin gtt started but now off. We continued ASA, Lipitor. Metoprolol low dose resumed since BP better. Echo showing EF 20-25%, Grade II diastolic dysfunction, moderate , moderate MR/TR and severe pulm HTN. Mag levels okay. Potassium 4.8; try to keep above 4 Continue ASA, metoprolol and Lipitor. Cardiology consulted and appreciate their input. (3) Ventricular tachycardia: Code(s): I47.20 - Ventricular tachycardia, unspecified Status: Acute Assessment and Plan: Patient with tachycardia on admission with EKG showing wide complex tachycardia likely VTach. Cardiology following and appreciate their input. Echo as above. Heparin gtt but now stopped Amiodarone started. No recurrence by tele Continue Amio. Continue to monitor on tele. (4) CAP (community acquired pneumonia): Qualifiers: Laterality: left Lung location: lower lobe of lung Qualified Code(s): J18.9 - Pneumonia, unspecified organism Code(s): J18.9 - Pneumonia, unspecified organism Status: Acute Assessment and Plan: CXR showing mild interstitial edema and subsegmental left basilar atelectasis/consolidation. UA not consistent with UTI. BCx NGTD. Influenza, COVID and RSV PCR negative. Suspect PNA to explain the sepsis symptoms. Abx started (01/01) WBC normal. Fever resolving. Continue abx to complete a course. (5) Acute on chronic combined systolic and diastolic CHF (congestive heart failure): Code(s): I50.43 - Acute on chronic combined systolic (congestive) and diastolic (congestive) heart failure Status: Acute Assessment and Plan: Echo as above. Patient with acute on chronic systolic and diastolic CHF. CXR results noted. BNP 26K [facility] not continued. No Lasix given. BP better. Monitor fluid status Continue empagliflozin. Tolerating Metoprol and now changed to XL. Resume Lasix as needed. Consider losartan/entresto and spironolactone now that his BP better and Cr improved LifeVest discussed with patient and he declines at this time. (6) Acute kidney injury superimposed on chronic kidney disease: Code(s): N17.9 - Acute kidney failure, unspecified; N18.9 - Chronic kidney disease, unspecified Status: Acute Assessm
[2024-01-06 16:24] LABS: Glucose Point of Care 210 mg/dl (65-105)
[2024-01-06] MEDS: metroNIDAZOLE 0.75% TOPICAL GEL 45 GM 1 APPLIC TOPICAL (17:29)
[2024-01-06] MEDS: TAMSULOSIN HCL 0.4 MG CAPSULE 0.8 MG PO (20:25)
[2024-01-06] MEDS: ATORVASTATIN 40 MG TABLET PO (20:26)
[2024-01-06 20:55] LABS: Glucose Point of Care 227 mg/dl (65-105)
[2024-01-06] MEDS: INSULIN GLARGINE (*BKC) 100 UNITS/ML 10 UNITS SUB-Q (21:51)
[2024-01-06] MEDS: LATANOPROST 0.005% OP SOLN 2.5 ML BTL 1 DROP EACH EYE (21:56)
[2024-01-06] MEDS: traMADol HCL (*CRX) 50 MG TABLET 100 MG PO (22:01)
[2024-01-06] MEDS: MICONAZOLE NITRATE 2% CREAM 30 GM TUBE 1 APPLIC TOPICAL (23:36)
[2024-01-07] VITALS (9 sets, daily range): BP systolic 117–141; BP diastolic 72–81; PULSE 59–71; RESP 16; TEMP 36.1–36.6; O2SAT 95–97
--- NOTE | 2024-01-07 00:38 | PC.NURSE ---
[facility] faxed and verbal report given for transfer to room 309. Patient aware.
[2024-01-07] MEDS: LEVOTHYROXINE SODIUM 25 MCG TABLET PO (06:05)
[2024-01-07] MEDS: LEVOTHYROXINE SODIUM 112 MCG TABLET PO (06:05)
[2024-01-07 06:49] LABS: Hemoglobin 13.3 g/dL (14.0-18.0); Mean Corpuscular HGB Conc 31.7 g/dl (32-36); Mean Corpuscular Hemoglobin 30.2 pg (26-34); Mean Corpuscular Volume 95.2 fl (80-100); Mean Platelet Volume 12.2 fl (7.4-10.4); Platelet Count Result 187 k/mm3 (150-375); Red Blood Count 4.41 M/mm3 (4.6-6.20); Red Cell Distribution Width 14.7 % (11.5-14.5); White Blood Count 11.3 K/mm3 (4.5-10.0)
[2024-01-07 06:59] LABS: Albumin Level 3.3 g/dL (3.5-5.1); Anion Gap 10 mmol/L (8-16); Blood Urea Nitrogen 48 mg/dL (9-20); Calcium 8.6 mg/dL (8.4-10.2); Carbon Dioxide 21 mmol/L (22-30); Chloride 105 mmol/L (98-107); Estimated CRCL calculation 65 ml/min; Estimated Glomerular Filt Rate > 60; Glucose 161 mg/dL (65-110); Phosphorus 3.3 mg/dL (2.5-4.5); Potassium 4.6 mmol/L (3.4-5.0); Sodium 136 mmol/L (137-145)
[2024-01-07 07:50] LABS: Glucose Point of Care 219 mg/dl (65-105)
[2024-01-07] MEDS: DOXYCYCLINE HYCLATE 100 MG TABLET PO ×2 (08:27→21:59)
[2024-01-07] MEDS: AMIODARONE HCL 200 MG TABLET 400 MG PO ×2 (08:28→17:24)
[2024-01-07] MEDS: METOPROLOL SUCCINATE EXT REL 25 MG TABCR PO (08:28)
[2024-01-07] MEDS: DULoxetine HCL 60 MG CAPSULE.DR PO (08:28)
[2024-01-07] MEDS: predniSONE 20 MG TABLET 40 MG PO (08:28)
[2024-01-07] MEDS: EMPAGLIFLOZIN 25 MG TABLET PO (08:28)
[2024-01-07] MEDS: PREGABALIN (*CRX) 75 MG CAPSULE PO ×2 (08:28→17:24)
[2024-01-07] MEDS: AMOXICILLIN/CLAVULANATE K 875-125 MG TAB 1 TABLET PO ×2 (08:28→22:00)
[2024-01-07] MEDS: SODIUM BICARBONATE TAB 650 MG TABLET PO ×2 (08:28→17:24)
[2024-01-07] MEDS: MAGNESIUM OXIDE 400 MG TABLET PO (08:28)
[2024-01-07] MEDS: PANTOPRAZOLE 40 MG TABLET PO (08:28)
[2024-01-07] MEDS: levETIRAcetam 500 MG TABLET PO ×2 (08:28→22:00)
[2024-01-07] MEDS: THERAPEUTIC MULTIVITAMINS/MINERALS TAB (*BKC) 1 TABLET PO (08:29)
[2024-01-07] MEDS: ASPIRIN 81 MG ENTERIC TABLET PO (08:29)
[2024-01-07] MEDS: ENOXAPARIN 40 MG/0.4 ML SYRINGE SUB-Q (08:30)
[2024-01-07] MEDS: BRIMONIDINE TARTRATE 0.2% OP SOLN 5 ML BTL 1 DROP EACH EYE (08:33)
[2024-01-07] MEDS: MUPIROCIN 2% OINT 22 GM TUBE 1 APPLIC EACH NARE (08:34)
[2024-01-07] MEDS: ARTIFICIAL TEARS OPHTH SOLN 15 ML BOTTLE 1 DROP EACH EYE (08:34)
[2024-01-07] MEDS: AZELASTINE HCL NASAL 0.1% 137 MCG/SPR 30 ML BTL 1 SPRAY NASAL (08:34)
[2024-01-07] MEDS: INSULIN ASPART (*BKC) 100 UNITS/ML SUB-Q ×5 (08:35→21:58)
[2024-01-07] MEDS: BACLOFEN 5 MG TABLET PO ×2 (08:41→17:24)
[2024-01-07] MEDS: LIDOCAINE 5% PATCH 1 PATCH TRANSDERM ×2 (08:54→08:55)
[2024-01-07] MEDS: polyethylene glycoL 3350 17 GM POWD.PACK PO (08:55)
[2024-01-07 11:48] LABS: Glucose Point of Care 171 mg/dl (65-105)
[2024-01-07] MEDS: FERROUS GLUCONATE 324 MG TABLET PO (13:40)
--- NOTE | 2024-01-07 15:38 | PM.DS ---
DS: Admitting Diagnosis Discharge Date 01/07/24 Admitting Diagnosis Shortness of breath DS: Discharge Diagnosis Discharge Diagnosis (1) Sepsis: Qualifiers: Acute renal failure type: unspecified Sepsis acute organ dysfunction status: with acute organ dysfunction Sepsis type: sepsis due to unspecified organism Severe sepsis acute organ dysfunction type: acute renal failure Severe sepsis shock status: without septic shock Qualified Code(s): A41.9 - Sepsis, unspecified organism; R65.20 - Severe sepsis without septic shock; N17.9 - Acute kidney failure, unspecified Code(s): A41.9 - Sepsis, unspecified organism Status: Acute (2) Non-ST elevation LA (NSTEMI): Code(s): I21.4 - Non-ST elevation (NSTEMI) myocardial infarction Status: Acute (3) Ventricular tachycardia: Code(s): I47.20 - Ventricular tachycardia, unspecified Status: Acute (4) CAP (community acquired pneumonia): Qualifiers: Laterality: left Lung location: lower lobe of lung Qualified Code(s): J18.9 - Pneumonia, unspecified organism Code(s): J18.9 - Pneumonia, unspecified organism Status: Acute (5) Acute on chronic combined systolic and diastolic CHF (congestive heart failure): Code(s): I50.43 - Acute on chronic combined systolic (congestive) and diastolic (congestive) heart failure Status: Acute (6) Acute kidney injury superimposed on chronic kidney disease: Code(s): N17.9 - Acute kidney failure, unspecified; N18.9 - Chronic kidney disease, unspecified Status: Acute (7) Hypoxia: Code(s): R09.02 - Hypoxemia Status: Acute (8) Type 2 diabetes mellitus with hyperglycemia, with long-term current use of insulin: Code(s): E11.65 - Type 2 diabetes mellitus with hyperglycemia; Z79.4 - penitentiary (current) use of insulin Status: Acute (9) Leg pain: Code(s): M79.606 - Pain in leg, unspecified Status: Acute DS: Summary Hospital Course Reason for hospitalization: 63yo male with CAD, pHTN, DM, CVA and seizures here for SOB. Please see H&P for details Hospital Course: Patient presents with sepsis likely due to LLL PNA with HoTN, tachycardia, fever and leukocytosis. Patient also had associated ERAN.?Patient given 1.5 L but full fluid administration for 30 mL/kgs not given due to the patient's history of cardiac disease. Patient's symptoms improved significantly after fluid administration with resolution of hypotension.?CXR showing mild interstitial edema and subsegmental left basilar atelectasis/consolidation. Influenza, COVID and RSV PCR negative. UA not consistent with UTI. MRSA nasal screen positive.? BCx NGTD. Sputum test not performed. Sputum not performed. IV abx started 01/01. Sepsis symptoms resolved. WBC normal. Fevers resolved. Changed to oral abx. Troponin elevated on admission and climbed to 6.6. EKG showing wide complex tachycardia concerning for VTach. Repeat EKG was in NSR with evidence of old AMI and IMI with high lateral T wave changes. Concern for NSTEMI but elevated Trop could be related to sustained VTach. Was on a Heparin gtt for a period of time. We continued ASA, Lipitor.? Metoprolol low dose resumed since BP improved. Echo showing EF 20-25%, Grade II diastolic dysfunction, moderate , moderate MR/TR and severe pulmonary HTN. Cardiology consulted and appreciate their input. Patient with tachycardia on admission with EKG showing wide complex tachycardia likely VTach. Amiodarone started. No recurrence by tele. Patient with acute on chronic systolic and diastolic CHF. BNP 26K but could be from the VTach. No Lasix given. We continued empagliflozin. Tolerating Metoprol and now changed to XL. LifeVest discussed with patient and he declines at this time. Patient has acute kidney injury. Chronic kidney disease listed with eGFR>60 but CrCl 70-80 range so probably CKD II at baseline. Cr 1.6 most likely due to sepsis with baseline creatinine is u
[2024-01-07 16:15] LABS: Glucose Point of Care 243 mg/dl (65-105)
[2024-01-07] MEDS: traMADol HCL (*CRX) 50 MG TABLET 100 MG PO (17:24)
[2024-01-07 21:41] LABS: Glucose Point of Care 234 mg/dl (65-105)
[2024-01-07] MEDS: INSULIN GLARGINE (*BKC) 100 UNITS/ML 10 UNITS SUB-Q (21:57)
[2024-01-07] MEDS: TAMSULOSIN HCL 0.4 MG CAPSULE 0.8 MG PO (21:59)
[2024-01-07] MEDS: ATORVASTATIN 40 MG TABLET PO (22:00)
== END 2024-01-07 22:23 | DRG 871 ==
LOC: ANHED 20:12 → ANHIMU 20:28 → ANHICU 01-02 01:20 → ANHIMU 01-03 18:48 → ANH3MEDSUR 01-07 16:08 → ANHIMU 01-08 16:43
PROVIDERS: Nurse Practitioner; Admitting Provider Internal Medicine; Emergency Provider Preventive Medicine Aerospace Medicine; PCP Family Medicine; Visit Provider Internal Medicine
DX: A41.9 Sepsis, unspecified organism (principal); I50.43 Acute on chronic combined systolic (congestive) and diastolic (congestive) heart failure; J18.9 Pneumonia, unspecified organism; N17.9 Acute kidney failure, unspecified; I13.0 Hypertensive heart and chronic kidney disease with heart failure and stage 1 through stage 4 chronic kidney disease, or unspecified chronic kidney disease; I47.20 Ventricular tachycardia, unspecified; R65.20 Severe sepsis without septic shock; I25.5 Ischemic cardiomyopathy; I25.10 Atherosclerotic heart disease of native coronary artery without angina pectoris; I25.2 Old myocardial infarction; I27.20 Pulmonary hypertension, unspecified; I08.3 Combined rheumatic disorders of mitral, aortic and tricuspid valves; I48.91 Unspecified atrial fibrillation; E11.22 Type 2 diabetes mellitus with diabetic chronic kidney disease; E11.65 Type 2 diabetes mellitus with hyperglycemia; E03.9 Hypothyroidism, unspecified; E78.5 Hyperlipidemia, unspecified; G40.909 Epilepsy, unspecified, not intractable, without status epilepticus; H40.9 Unspecified glaucoma; M10.9 Gout, unspecified; M17.11 Unilateral primary osteoarthritis, right knee; N18.30 Chronic kidney disease, stage 3 unspecified; N40.0 Benign prostatic hyperplasia without lower urinary tract symptoms; Z79.82 Long term (current) use of aspirin; Z79.85 Long-term (current) use of injectable non-insulin antidiabetic drugs; Z79.84 Long term (current) use of oral hypoglycemic drugs; Z20.822 Contact with and (suspected) exposure to COVID-19; Z86.73 Personal history of transient ischemic attack (TIA), and cerebral infarction without residual deficits; Z95.1 Presence of aortocoronary bypass graft; Z98.1 Arthrodesis status; Z87.891 Personal history of nicotine dependence
CPT/HCPCS: 36415; 71045; 73562; 80048; 80053; 80069; 80202; 81001; 82948; 83605; 83735; 83880; 84484; 84550; 85025; 85027; 85055; 85610; 85730; 86140; 87040; 87070; 87205; 87637; 87641; 93005; 93970; 96361; 96365; 96366; 96367; 97110; 97162; 97166; 97530; 97535; 99285; A9270; C8929; G0378; J0692; J1644; J1650; J1815; J3370; J7030; J7040; J7512; Q9957

== ENCOUNTER 2024-02-10 22:37 | Inpatient (IN) | payer MEDICARE, MEDICAID, SELFPAY ==
--- NOTE | ~2024-02-10 | XR_ITS ---
Left Knee Technique: AP, lateral, and sunrise views were obtained. Clinical History: Prepatellar abscess COMPARISON: 05/01/2019 Findings: No fracture or dislocation is seen. Osseous alignment is anatomic. Mild degenerative joint disease noted. Multiple soft tissue calcifications/ossifications in the prepatellar soft tissues are similar to prior exam.. No joint effusion is seen. Impression: Multiple soft tissue calcification/ossifications in the prepatellar soft tissues are similar to prior exam, nonspecific, chronic. Mild degenerative joint disease. Reviewed, dictated and finalized at location . Impression: Multiple soft tissue calcification/ossifications in the prepatellar soft tissue s are similar to prior exam, nonspecific, chronic. Mild degenerative joint disease.
[2024-02-10 22:38] VITALS: BP 137/73; PULSE 91; RESP 22; TEMP 36.6; O2SAT 94
[2024-02-10 22:44] VITALS: BP 137/73; PULSE 89; RESP 22; O2SAT 94
--- NOTE | 2024-02-10 23:52 | ED.EXTPRO ---
HPI - Extremity Problem General Chief complaint: Extremity Problem,Nontraumatic Stated complaint: LEFT KNEE SWELLING AND PAIN Time Seen by Provider: 02/10/24 22:44 History of Present Illness HPI Narrative: 63-year-old male with history of CVA, hyperlipidemia, hypothyroidism, insulin-dependent diabetes, CHF, gout presents to emergency department for swelling and erythema and pain to his left knee that started yesterday. Patient lives at [facility]. Patient reports he has been in PT and has been using a standing assisting device that requires him to lean his knees against a pad. States he has had a focal area of swelling to the anterior aspect of his left knee for a while. States yesterday he started noticing it became more painful and edematous. . He denies fever, vomiting, difficulty with range of motion. Patient is taking febuxostat for gout. Related Data Home Medications Medication Instructions Recorded Confirmed aspirin 81 mg tablet,delayed 81 mg PO DAILY heart disease 03/30/21 02/11/24 release atorvastatin 40 mg tablet 40 mg PO HS high cholesterol 03/30/21 02/11/24 biotin 5,000 mcg disintegrating 5,000 mcg PO DAILY supplement 03/30/21 02/11/24 tablet levothyroxine 137 mcg tablet 137 mcg PO QAM hypothyroidism 03/30/21 02/11/24 tamsulosin 0.4 mg capsule 0.8 mg PO HS benign prostatic 03/30/21 02/11/24 hyperplasia ascorbic acid (vitamin C) 500 mg 500 mg PO BID wound healing 01/18/22 02/11/24 capsule duloxetine 60 mg capsule,delayed 60 mg PO DAILY depression 01/18/22 02/11/24 release baclofen 5 mg tablet 5 mg PO TID pain 06/09/22 02/11/24 dulaglutide 0.75 mg/0.5 mL 0.75 mg subcut WEEKLY 06/09/22 02/11/24 subcutaneous pen injector (Trulicity) empagliflozin 25 mg tablet 25 mg PO DAILY type 2 diabetes 06/09/22 02/11/24 (Jardiance) ferrous gluconate 324 mg (38 mg 324 mg PO DAILY supplementation 06/09/22 02/11/24 iron) tablet ipratropium 0.5 mg-albuterol 3 mg 3 ml inhalation Q6H PRN Shortness 06/09/22 02/11/24 (2.5 mg base)/3 mL nebulization Of Breath soln latanoprost 0.005 % eye drops 1 drp EACH EYE HS glaucoma 06/09/22 02/11/24 multivitamin with minerals (Daily 1 tablet PO DAILY wound healing ##0 06/09/22 02/11/24 Multivitamin-Minerals tablet) sodium phosphates 19 gram-7 118 ml RECTAL DAILY PRN 06/09/22 02/11/24 gram/118 mL enema (Fleet Enema) Constipation brimonidine 0.2 % eye drops 1 drp EACH EYE BID glaucoma 12/29/22 02/11/24 diclofenac sodium 1 % topical gel 1 ea topical Q6H PRN Mild Pain 12/29/22 02/11/24 (Scale Score 1-4) Nystatin Powder 1 applic topical Q12H PRN Rash 03/06/23 02/11/24 acetaminophen 500 mg tablet 1,000 mg PO Q8H PRN Pain (Scale 03/06/23 02/11/24 (Acetaminophen Extra Strength) Score 4-6) azelastine 137 mcg (0.1 %) nasal 1 spray intranasal Q12H allergic 03/06/23 02/11/24 spray aerosol rhinitis magnesium oxide 400 mg (241.3 mg 400 mg PO DAILY hypomagnesemia 03/06/23 02/11/24 magnesium) tablet peg [id number] 1 1 drp EACH EYE BID dry eyes 03/06/23 02/11/24 %-0.2 %-0.2 % eye drops (Artificial Tears ([id number])) glucagon 1 mg injection kit 1 mg subcut PRN PRN Hypoglycemia 04/17/23 02/11/24 insulin glargine 100 unit/mL (3 10 unit subcut QPM 04/17/23 02/11/24 mL) subcutaneous pen (Lantus Solostar U-100 Insulin) insulin lispro 100 unit/mL 3 unit subcut AC 04/17/23 02/11/24 subcutaneous pen (Humalog KwikPen (U-100) Insulin) omeprazole 20 mg capsule,delayed 20 mg PO DAILY 04/17/23 02/11/24 release Zinc-50 50 mg PO HS 05/15/23 02/11/24 magnesium citrate 296 ml PO PRN PRN Constipation 05/15/23 02/11/24 metronidazole 1 applic topical PRN PRN Rash 05/15/23 02/11/24 cetirizine 10 mg tablet 10 mg PO DAILY PRN Allergy Symptoms 06/14/23 02/11/24 miconazole nitrate 2 % topical 1 applic topical HS 06/14/23 02/11/24 cream bisacodyl 10 mg rectal suppository 10 mg RECTAL DAILY PRN Constipation 01/02/24 02/11/24 carboxymethylcellulose 0
[2024-02-10 23:53] LABS: Basophils Absolute Auto 0.1 K/mm3 (0.0-0.1); Basophils Percent Auto 0.6 % (0.2-1.2); Eosinophils Absolute Auto 0.2 K/mm3 (0-0.3); Eosinophils Percent Auto 2.1 % (0-4.4); Hematocrit 41.9 % (42.0-52.0); Hemoglobin 13.4 g/dL (14.0-18.0); Immature Granulocyte Absolute 0.11 K/mm3 (0.00-0.031); Immature Granulocyte Percent A 1.1 % (0-0.5); Lymphocytes Percent Auto 12.3 % (18.3-44.2); Mean Corpuscular Hemoglobin 29.9 pg (26-34); Mean Corpuscular Volume 93.5 fl (80-100); Mean Platelet Volume 11.2 fl (7.4-10.4); Monocytes Absolute Auto 0.9 K/mm3 (0.1-0.6); Monocytes Percent Auto 9.3 % (2.6-8.5); Neutrophils Absolute Auto 7.3 K/mm3 (1.3-6.7); Neutrophils Percent Auto 74.6 % (45.5-73.1); Platelet Count Result 168 k/mm3 (150-375); Red Blood Count 4.48 M/mm3 (4.6-6.20); Red Cell Distribution Width 15.9 % (11.5-14.5); White Blood Count 9.8 K/mm3 (4.5-10.0)
[2024-02-11] VITALS (8 sets, daily range): BP systolic 129–149; BP diastolic 72–89; PULSE 79–88; RESP 17–20; TEMP 36.1–36.9; O2SAT 93–99; BMI 28.9
[2024-02-11 00:04] LABS: Anion Gap 6 mmol/L (4-12); Blood Urea Nitrogen 33 mg/dL (9-20); Calcium 8.7 mg/dL (8.4-10.2); Carbon Dioxide 27 mmol/L (22-30); Chloride 106 mmol/L (98-107); Estimated CRCL calculation 78 ml/min; Estimated Glomerular Filt Rate > 60; Glucose 104 mg/dL (65-110); Lactic Acid Reflex 0.7 mmol/L (0.7-2.0); Potassium 3.9 mmol/L (3.4-5.0); Sodium 139 mmol/L (137-145)
[2024-02-11 00:24] LABS: Erythrocyte Sedimentation Rate 64 mm/hr (0-20)
[2024-02-11 02:11] LABS: CRP 2.5 mg/dL (<1.0)
[2024-02-11 03:32] LABS: Uric Acid 4.4 mg/dL (3.5-8.5)
[2024-02-11 03:46] LABS: Appearance Synovial Fluid Bloody (Clear); Color Synovial Fluid Red (Colorless); Source Synovial Fluid Synovial fluid
[2024-02-11] MEDS: MORPHINE SULFATE (*CRX) 2 MG/ML INJ IV PUSH (03:50)
[2024-02-11] MEDS: INDOMETHACIN 25 MG CAPSULE PO (04:01)
[2024-02-11] MEDS: VANCOMYCIN 1,500 MG/NS 500 ML 1,500 MG/500 ML BAG 250 MG IVPB ×2 (04:14→20:27)
[2024-02-11 04:16] LABS: Lymphocytes Synovial Fluid 2 %; Monocytes Synovial Fluid 1 %; Neutrophils Synovial Fluid 97 % (0-25)
[2024-02-11] MEDS: HYDROmorphone HCL INJ (*CRX) 1 MG/ML SYR IV PUSH (04:56)
--- NOTE | 2024-02-11 04:57 | ADMGEN ---
This patient, Bayron Ann, was admitted to [address] [facility] Surg Room 316-02. Patient/family oriented to hospital policies and general routines including ID bracelet, bed and alarms, visiting hours, pain management, procedures, bathroom and other care routines, personal items, smoking policy, room service/diet, and visiting hours. Information on how to activate the Rapid Response Team has been discussed. Patient/Family are encouraged to report perceived risks to care and to ask questions if they do not understand what they are told or what they should do.
--- NOTE | 2024-02-11 08:50 | PM.IMHP ---
H&P: HPI History of Present Illness Date/Time: 02/11/24 08:50 Chief Complaint: Left knee swelling and pain Narrative: 63 year old male with history of coronary artery disease status post CABG, cardiomyopathy with an EF of 20-25% on 01/02/24, reduced right ventricular systolic function, pulmonary hypertension, hypertension, insulin-dependent diabetes mellitus, stroke, and seizures presents to the hospital from [facility] for pain and swelling to the left knee. Patient states that the swelling began a few days ago after continuous use of a standing assistance device that requires him to kneel on a pad. He then developed increased pain yesterday which resulted in him coming to the hospital. He denies any fever, nausea/vomiting, or changes in range of motion. Of note patient has left sided residual weakness due to prior stroke in 2019. Patient states that he has not been able to fully straighten his left knee or move his toes since then. He does note worsening pain with minimal movement but is able to move the extremity. Discussed patient with Dr. Sanchez on the phone. Since WBC is WNL, VS stable, joint is less concerning for septic joint, and patient being a poor surgical candidate will continue to treat with IV antibiotics at this time. The left knee fluctuance was marked and will be monitored for spreading. ED workup: CBC without leukocytosis. Chemistries unremarkable. CRP elevated 2.5, ESR 0.7, Uric acid 4.4. Left knee XR revealed multiple soft tissue calcification/ossifications in the prepatellar soft tissues that are similar to prior exam, nonspecific, chronic and mild degenerative joint disease. Left knee aspiration of synovial fluid revealed elevated neutrophils 97 and mod synovial crystals. Bursa culture showing gram positive cocci in pairs, concerning for staph. Blood cultures pending. Patient started on vancomycin. NPO ordered placed for plan to go to OR 02/[address] Sanchez for bursa debridement. Review of Systems Review of Systems: All systems reviewed & are unremarkable except as noted in HPI and below PMFSH Past Medical History Medical History Benign prostatic hyperplasia Cerebrovascular accident Chronic anemia (01/2019) Post CABG right parietal infarction resultant hemiplegia. Chronic kidney disease, stage 3 Chronic systolic right heart failure Combined systolic and diastolic congestive heart failure Coronary artery disease Status post three-vessel bypass and left ventricular aneurysm repair in February 2019 at [facility]. Current use of intermediate anticoagulation Depression Glaucoma Gout Hyperlipidemia Hypertension Hypothyroidism Insulin dependent diabetes mellitus Ischemic cardiomyopathy EF was 20 to 25% and May 2023. Myocardial infarction (01/2019) Late presentation CA found to have severe three-vessel disease, transferred to [facility] for emergent bypass with perioperative ventricular fibrillation arrest. Pulmonary hypertension Seizure disorder Ventricular tachycardia Surgical History Surgical History History of cardiac catheterization History of coronary artery bypass graft (~02/2019) Three-vessel bypass and surgical repair of left ventricular aneurysm at [facility]. 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 Healthcare power of insurance defense attorney: Blanquita Ann, . Code status: Full code. Smoking packs per day: 1.5 Smoking cigarettes per day: 30.0 Years smoked: 22 Smoking pack-y
[2024-02-11 14:53] LABS: Glucose Point of Care 117 mg/dl (65-105)
[2024-02-11] MEDS: ARTIFICIAL TEARS OPHTH SOLN 15 ML BOTTLE 1 DROP EACH EYE (16:22)
[2024-02-11] MEDS: BRIMONIDINE TARTRATE 0.2% OP SOLN 5 ML BTL 1 DROP EACH EYE (16:23)
[2024-02-11] MEDS: ASCORBIC ACID 500 MG TABLET PO (16:26)
[2024-02-11] MEDS: FUROSEMIDE 40 MG TABLET PO (16:26)
[2024-02-11] MEDS: PRIMIDONE 50 MG TABLET PO (16:26)
[2024-02-11] MEDS: PREGABALIN (*CRX) 75 MG CAPSULE PO (16:26)
[2024-02-11 16:49] LABS: Glucose Point of Care 170 mg/dl (65-105)
[2024-02-11] MEDS: oxyCODONE HCL (*CRX) 5 MG TAB IR PO ×2 (18:06→22:50)
[2024-02-11 20:26] LABS: Appearance Urine Cloudy (Clear); Bacteria Urine None Seen /hpf; Bilirubin Urine Negative (Negative); Blood Urine 1+ (Negative); Color Urine Yellow (Yellow); Glucose Urine UA 3+ mg/dL (Negative); Ketones Urine Negative (Negative); Leukocyte Esterase Ur 2+ LEU/UL (Negative); Nitrate Urine Negative (Negative); Non Pathogenic Casts 0-2; Protein Urine 2+ mg/dL (Negative); Squamous Epithelial Cell Urine None Seen /hpf (Few); WBC Urine >100 /hpf (0-3); pH Urine 5.5 (5.0-9.0)
[2024-02-11] MEDS: ATORVASTATIN 40 MG TABLET PO (20:28)
[2024-02-11] MEDS: LATANOPROST 0.005% OP SOLN 2.5 ML BTL 1 DROP EACH EYE (20:28)
[2024-02-11] MEDS: levETIRAcetam 500 MG TABLET PO (20:28)
[2024-02-11] MEDS: TAMSULOSIN HCL 0.4 MG CAPSULE 0.8 MG PO (20:29)
[2024-02-11 20:44] LABS: Glucose Point of Care 157 mg/dl (65-105)
[2024-02-11 20:57] LABS: Add Urine Microscopic? YES
[2024-02-11 23:54] LABS: Hemoglobin A1C 7.3 % (<5.7)
[2024-02-12] MEDS: traMADol HCL (*CRX) 50 MG TABLET 100 MG PO ×3 (01:36→23:28)
[2024-02-12] MEDS: LEVOTHYROXINE SODIUM 25 MCG TABLET PO (05:33)
[2024-02-12] MEDS: oxyCODONE HCL (*CRX) 5 MG TAB IR PO (05:33)
[2024-02-12] MEDS: LEVOTHYROXINE SODIUM 112 MCG TABLET PO (05:33)
[2024-02-12 05:57] VITALS: BP 134/75; PULSE 87; RESP 20; TEMP 37.1; O2SAT 95
[2024-02-12 06:49] LABS: Estimated CRCL calculation 86 ml/min; Estimated Glomerular Filt Rate > 60
--- NOTE | 2024-02-12 07:15 | PM.IMPN ---
Progress Note: A&P Assessment and Plan (1) Gouty bursitis: Code(s): M10.9 - Gout, unspecified Status: Acute Assessment and Plan: Discussed patient with Dr. Sanchez on the phone. Since WBC is WNL, VS stable, joint is less concerning for septic joint, and patient being a poor surgical candidate will continue to treat with IV antibiotics at this time. - Left bursa synovial fluid: blood appearance, 97 neutrophils, 2 lymphocytes, 1 monocytes, moderate crystals - Left bursa gram stain: Gram positive cocci in pairs, concerning for staph - Continue Vancomycin. MRSA PCR previously positive in 01/01/24. - Left knee fluctuance was marked and will be monitored for spreading. - Analgesics (2) Ischemic cardiomyopathy: Code(s): I25.5 - Ischemic cardiomyopathy Status: Acute Assessment and Plan: In no acute exacerbation. - Current medications: Jardiance 25 mg daily, Lasix 40 mg BID, Atorvastatin 40 mg daily, Metoprolol 25 mg daily - Runner Worker: Dr. Benitez. - Echo 01/02/24: EF of 20-25%, reduced right ventricular systolic function (3) Type 2 diabetes mellitus with hyperglycemia, with long-term current use of insulin: Code(s): E11.65 - Type 2 diabetes mellitus with hyperglycemia; Z79.4 - long-term (current) use of insulin Status: Acute Assessment and Plan: - hypoglycemia protocol - POC blood glucose ACHS - home medication - insulin - correct regimen ordered - low dose TIDWM and HS - A1C pending (4) Seizure: Code(s): R56.9 - Unspecified convulsions Status: Acute Assessment and Plan: Per last seizure in August of 2023. Continue Keppra. (5) Hypothyroidism: Qualifiers: Hypothyroidism type: unspecified Qualified Code(s): E03.9 - Hypothyroidism, unspecified Code(s): E03.9 - Hypothyroidism, unspecified Status: Chronic Assessment and Plan: TSH pending. Continue home levothyroxine. (6) Coronary artery disease: Code(s): I25.10 - Atherosclerotic heart disease of [place] coronary artery without angina pectoris Status: Acute Assessment and Plan: Status post CABG complicated by stroke. (7) History of CVA (cerebrovascular accident): Code(s): Z86.73 - Personal history of transient ischemic attack (TIA), and cerebral infarction without residual deficits Status: Chronic Assessment and Plan: Ischemic stroke following CABG in 2019 with left-sided residual weakness. Time Spent With Patient Time with patient: 25 - 35 minutes Subjective Date/time seen: 02/12/24 07:15 Interval history: 63 year old male with history of coronary artery disease status post CABG, cardiomyopathy with an EF of 20-25% on 01/02/24, reduced right ventricular systolic function, pulmonary hypertension, hypertension, insulin-dependent diabetes mellitus, stroke, and seizures presents [facility] the hospital [facility] for pain and swelling to the left knee.? Patient is pleasant lying in bed. He states he has worsening spasms going down his left leg. Restarted his home baclofen which he states helps. He continues to have an exudative bloody discharge from the aspiration site of the left knee. The erythema extends laterally along the tib fib region. Plan for Dr. Sanchez to see patient today. He remains on vancomycin. Infection markers remain in normal range. Review of Systems Review of Systems: All systems reviewed & are unremarkable except as noted in HPI and below Exam Narrative: AF HR 80 RR 16 SpO2 93 BP 127/57 General: Male in no acute respiratory distress who is nontoxic appearing, lying semi recumbent in bed. HEENT: Normocephalic. Atraumatic. Pupils equal round reactive to light. Extraocular movement intact. Sclera clear and anicteric. No facial asymmetry. Neck: Neck was supple. No dominant adenopathy, thyromegaly or masses. 2+ carotid upstrokes without bruits. Chest: Lungs are clear to auscultation bilaterally
[2024-02-12 07:54] LABS: Glucose Point of Care 115 mg/dl (65-105)
[2024-02-12 08:12] LABS: Basophils Absolute Auto 0.1 K/mm3 (0.0-0.1); Basophils Percent Auto 0.7 % (0.2-1.2); Eosinophils Absolute Auto 0.2 K/mm3 (0-0.3); Eosinophils Percent Auto 1.9 % (0-4.4); Hematocrit 42.4 % (42.0-52.0); Hemoglobin 13.2 g/dL (14.0-18.0); Immature Granulocyte Absolute 0.07 K/mm3 (0.00-0.031); Immature Granulocyte Percent A 0.8 % (0-0.5); Lymphocytes Absolute Auto 0.96 K/mm3 (0.9-3.2); Lymphocytes Percent Auto 11.1 % (18.3-44.2); Mean Corpuscular HGB Conc 31.1 g/dl (32-36); Mean Corpuscular Hemoglobin 30.1 pg (26-34); Mean Corpuscular Volume 96.6 fl (80-100); Mean Platelet Volume 12.6 fl (7.4-10.4); Monocytes Absolute Auto 0.8 K/mm3 (0.1-0.6); Monocytes Percent Auto 9.8 % (2.6-8.5); Neutrophils Absolute Auto 6.5 K/mm3 (1.3-6.7); Neutrophils Percent Auto 75.7 % (45.5-73.1); Platelet Count Result 143 k/mm3 (150-375); Red Blood Count 4.39 M/mm3 (4.6-6.20); Red Cell Distribution Width 15.9 % (11.5-14.5); White Blood Count 8.6 K/mm3 (4.5-10.0)
[2024-02-12 08:23] LABS: Anion Gap 8 mmol/L (4-12); Blood Urea Nitrogen 27 mg/dL (9-20); Carbon Dioxide 25 mmol/L (22-30); Chloride 107 mmol/L (98-107); Estimated CRCL calculation 78 ml/min; Estimated Glomerular Filt Rate > 60; Glucose 112 mg/dL (65-110); Potassium 3.8 mmol/L (3.4-5.0); Sodium 140 mmol/L (137-145)
[2024-02-12] MEDS: BRIMONIDINE TARTRATE 0.2% OP SOLN 5 ML BTL 1 DROP EACH EYE ×2 (09:08→18:02)
[2024-02-12] MEDS: ARTIFICIAL TEARS OPHTH SOLN 15 ML BOTTLE 1 DROP EACH EYE ×2 (09:08→18:02)
[2024-02-12 09:11] VITALS: PULSE 85
[2024-02-12] MEDS: MAGNESIUM OXIDE 400 MG TABLET PO (09:11)
[2024-02-12] MEDS: METOPROLOL SUCCINATE EXT REL 25 MG TABCR PO (09:11)
[2024-02-12] MEDS: ASCORBIC ACID 500 MG TABLET PO ×2 (09:12→18:05)
[2024-02-12] MEDS: FUROSEMIDE 40 MG TABLET PO ×2 (09:13→18:05)
[2024-02-12] MEDS: THERAPEUTIC MULTIVITAMINS/MINERALS TAB (*BKC) 1 TABLET PO (09:13)
[2024-02-12] MEDS: FERROUS GLUCONATE 324 MG TABLET PO (09:13)
[2024-02-12] MEDS: PREGABALIN (*CRX) 75 MG CAPSULE PO ×2 (09:13→18:05)
[2024-02-12] MEDS: levETIRAcetam 500 MG TABLET PO ×2 (09:14→22:00)
[2024-02-12] MEDS: PRIMIDONE 50 MG TABLET PO ×3 (09:14→18:05)
[2024-02-12] MEDS: DULoxetine HCL 60 MG CAPSULE.DR PO (09:15)
[2024-02-12 09:16] VITALS: PULSE 85
[2024-02-12] MEDS: PANTOPRAZOLE 40 MG TABLET PO (09:16)
[2024-02-12] MEDS: AMIODARONE HCL 200 MG TABLET PO (09:16)
[2024-02-12 11:55] LABS: Glucose Point of Care 113 mg/dl (65-105)
[2024-02-12 14:00] VITALS: BP 124/57; PULSE 80; RESP 16; TEMP 36.6; O2SAT 93
[2024-02-12] MEDS: VANCOMYCIN 1,500 MG/NS 500 ML 1,500 MG/500 ML BAG 250 MG IVPB (15:49)
[2024-02-12 16:40] LABS: Glucose Point of Care 140 mg/dl (65-105)
[2024-02-12] MEDS: BACLOFEN 5 MG TABLET PO (18:05)
[2024-02-12 20:53] LABS: Glucose Point of Care 178 mg/dl (65-105)
[2024-02-12 21:22] VITALS: BP 100/48; PULSE 70; RESP 13; TEMP 36.4; O2SAT 91
[2024-02-12] MEDS: ATORVASTATIN 40 MG TABLET PO (22:00)
[2024-02-12] MEDS: LATANOPROST 0.005% OP SOLN 2.5 ML BTL 1 DROP EACH EYE (22:00)
[2024-02-12] MEDS: TAMSULOSIN HCL 0.4 MG CAPSULE 0.8 MG PO (22:00)
[2024-02-13] MEDS: LEVOTHYROXINE SODIUM 25 MCG TABLET PO (05:32)
[2024-02-13] MEDS: LEVOTHYROXINE SODIUM 112 MCG TABLET PO (05:32)
[2024-02-13 05:38] VITALS: BP 106/54; PULSE 75; RESP 14; TEMP 36.7; O2SAT 92
[2024-02-13 07:42] VITALS: O2SAT 95
[2024-02-13 07:46] LABS: Glucose Point of Care 157 mg/dl (65-105)
[2024-02-13] MEDS: BRIMONIDINE TARTRATE 0.2% OP SOLN 5 ML BTL 1 DROP EACH EYE ×2 (09:00→17:01)
[2024-02-13] MEDS: MUPIROCIN 2% OINT 22 GM TUBE 1 APPLIC TOPICAL (09:00)
[2024-02-13] MEDS: ARTIFICIAL TEARS OPHTH SOLN 15 ML BOTTLE 1 DROP EACH EYE ×2 (09:00→17:05)
[2024-02-13] MEDS: MAGNESIUM OXIDE 400 MG TABLET PO (09:21)
[2024-02-13] MEDS: ENOXAPARIN 40 MG/0.4 ML SYRINGE SUB-Q (09:21)
[2024-02-13] MEDS: BACLOFEN 5 MG TABLET PO ×3 (09:21→17:00)
[2024-02-13] MEDS: ASPIRIN 81 MG ENTERIC TABLET PO (09:21)
[2024-02-13 09:22] VITALS: PULSE 79
[2024-02-13] MEDS: POTASSIUM CHLORIDE 10 MEQ ER TABLET PO (09:22)
[2024-02-13] MEDS: PRIMIDONE 50 MG TABLET PO ×3 (09:22→17:01)
[2024-02-13] MEDS: FUROSEMIDE 40 MG TABLET PO ×2 (09:22→17:00)
[2024-02-13] MEDS: METOPROLOL SUCCINATE EXT REL 25 MG TABCR PO (09:22)
[2024-02-13] MEDS: THERAPEUTIC MULTIVITAMINS/MINERALS TAB (*BKC) 1 TABLET PO (09:22)
[2024-02-13] MEDS: levETIRAcetam 500 MG TABLET PO ×2 (09:22→20:27)
[2024-02-13] MEDS: PANTOPRAZOLE 40 MG TABLET PO (09:22)
[2024-02-13] MEDS: AMIODARONE HCL 200 MG TABLET PO (09:22)
[2024-02-13] MEDS: ASCORBIC ACID 500 MG TABLET PO ×2 (09:22→17:01)
[2024-02-13] MEDS: PREGABALIN (*CRX) 75 MG CAPSULE PO ×2 (09:23→17:01)
[2024-02-13] MEDS: DULoxetine HCL 60 MG CAPSULE.DR PO (09:23)
[2024-02-13] MEDS: FERROUS GLUCONATE 324 MG TABLET PO (09:23)
[2024-02-13] MEDS: LIDOCAINE 5% PATCH 1 PATCH TRANSDERM (09:23)
[2024-02-13] MEDS: EMPAGLIFLOZIN 25 MG TABLET PO (09:23)
[2024-02-13 09:34] LABS: Basophils Absolute Auto 0.1 K/mm3 (0.0-0.1); Basophils Percent Auto 0.7 % (0.2-1.2); Eosinophils Absolute Auto 0.2 K/mm3 (0-0.3); Eosinophils Percent Auto 2.1 % (0-4.4); Hematocrit 42.8 % (42.0-52.0); Hemoglobin 13.6 g/dL (14.0-18.0); Immature Granulocyte Absolute 0.07 K/mm3 (0.00-0.031); Immature Granulocyte Percent A 0.9 % (0-0.5); Lymphocytes Percent Auto 11.8 % (18.3-44.2); Mean Corpuscular HGB Conc 31.8 g/dl (32-36); Mean Corpuscular Hemoglobin 29.8 pg (26-34); Mean Corpuscular Volume 93.7 fl (80-100); Mean Platelet Volume 12.1 fl (7.4-10.4); Monocytes Absolute Auto 0.7 K/mm3 (0.1-0.6); Monocytes Percent Auto 9.2 % (2.6-8.5); Neutrophils Absolute Auto 5.7 K/mm3 (1.3-6.7); Neutrophils Percent Auto 75.3 % (45.5-73.1); Platelet Count Result 149 k/mm3 (150-375); Red Blood Count 4.57 M/mm3 (4.6-6.20); Red Cell Distribution Width 15.8 % (11.5-14.5); White Blood Count 7.6 K/mm3 (4.5-10.0)
[2024-02-13 09:54] LABS: Anion Gap 6 mmol/L (4-12); Blood Urea Nitrogen 28 mg/dL (9-20); Calcium 8.7 mg/dL (8.4-10.2); Carbon Dioxide 28 mmol/L (22-30); Chloride 102 mmol/L (98-107); Estimated CRCL calculation 78 ml/min; Estimated Glomerular Filt Rate > 60; Glucose 218 mg/dL (65-110); Potassium 3.6 mmol/L (3.4-5.0); Sodium 136 mmol/L (137-145)
[2024-02-13 10:45] LABS: Vancomycin Trough 15.7 ug/mL (10.0-20.0)
[2024-02-13 11:36] LABS: Glucose Point of Care 175 mg/dl (65-105)
[2024-02-13 14:00] VITALS: BP 88/51; PULSE 69; RESP 20; TEMP 36.4; O2SAT 93
--- NOTE | 2024-02-13 15:35 | PM.IMPN ---
Progress Note: A&P Assessment and Plan (1) Gouty bursitis: Code(s): M10.9 - Gout, unspecified Status: Acute Assessment and Plan: Discussed patient with Dr. Sanchez on the phone. Since WBC is WNL, VS stable, joint is less concerning for septic joint, and patient being a poor surgical candidate will continue to treat with IV antibiotics at this time. - Left bursa synovial fluid: blood appearance, 97 neutrophils, 2 lymphocytes, 1 monocytes, moderate crystals - Left bursa gram stain: Gram positive cocci in pairs, concerning for staph - Continue Vancomycin. MRSA PCR previously positive in 01/01/24. - Left knee fluctuance was marked and will be monitored for spreading. - Analgesics - wound consulted for appropriate dressing (2) Ischemic cardiomyopathy: Code(s): I25.5 - Ischemic cardiomyopathy Status: Chronic Assessment and Plan: In no acute exacerbation. - Current medications: Jardiance 25 mg daily, Lasix 40 mg BID, Atorvastatin 40 mg daily, Metoprolol 25 mg daily - Mushroom Press Operator: Dr. Benitez. - Echo 01/02/24: EF of 20-25%, reduced right ventricular systolic function (3) Type 2 diabetes mellitus with hyperglycemia, with long-term current use of insulin: Code(s): E11.65 - Type 2 diabetes mellitus with hyperglycemia; Z79.4 - intermediate accountant (current) use of insulin Status: Chronic Assessment and Plan: - hypoglycemia protocol - POC blood glucose ACHS - home medication - insulin - correct regimen ordered - low dose TIDWM and HS - A1C pending (4) Seizure: Code(s): R56.9 - Unspecified convulsions Status: Chronic Assessment and Plan: Per last seizure in August of 2023. Continue Keppra. (5) Hypothyroidism: Qualifiers: Hypothyroidism type: unspecified Qualified Code(s): E03.9 - Hypothyroidism, unspecified Code(s): E03.9 - Hypothyroidism, unspecified Status: Chronic Assessment and Plan: TSH WNL Continue home levothyroxine. (6) Coronary artery disease: Code(s): I25.10 - Atherosclerotic heart disease of [place] coronary artery without angina pectoris Status: Chronic Assessment and Plan: Status post CABG complicated by stroke. (7) History of CVA (cerebrovascular accident): Code(s): Z86.73 - Personal history of transient ischemic attack (TIA), and cerebral infarction without residual deficits Status: Chronic Assessment and Plan: Ischemic stroke following CABG in 2019 with left-sided residual weakness. Subjective Date/time seen: 02/13/24 15:35 Interval history: Patient is lying in bed, resting and in no acute distress. Continue vancomycin as he is not a candidate for surgery at this time. Wound consulted for appropriate care. BC pending. micro wound showing staph aureus. Will continue to monitor. Review of Systems Review of Systems: All systems reviewed & are unremarkable except as noted in HPI and below Exam Narrative: General: Male in no acute respiratory distress who is nontoxic appearing, lying semi recumbent in bed. HEENT: Normocephalic. Atraumatic. PERRLA, EOMI. Neck: supple. Chest: Lungs are clear to auscultation bilaterally. No wheezes or crackles. CV: RRR. S1/S2. No murmurs, gallops, or rubs. Abd: soft, nontender. Nondistended. Positive bowel sounds. Ext: No clubbing, cyanosis, or edema. 2+ DP pulses bilaterally. Skin: Painful local fluctuation of the left prepatellar region with surrounding erythema with bloody drainage following aspiration. Surrounding erythema extending laterally down the tib-fib area. Neuro: Patient is alert and oriented x4. Weakness to bilaterally lower extremities L>R. Speech is clear. Psych: Normal mood and affect. Patient is pleasant and cooperative. Objective Data Vital Signs Vital Signs: Vital Signs - 24 hr 02/12/24 21:22 02/12/24 20:00 02/13/24 05:38 Temperature 97.6 F 98.1 F Pulse Rate 70 75 Respiratory Rate 13
[2024-02-13] MEDS: VANCOMYCIN 1,500 MG/NS 500 ML 1,500 MG/500 ML BAG 250 MG IVPB (16:11)
--- NOTE | 2024-02-13 16:16 | PM.PNORT ---
Progress Note: A&P Assessment and Plan (1) Gouty bursitis: Code(s): M10.9 - Gout, unspecified Status: Acute Assessment and Plan: S/P GOUTY BURSITIS WITH ABSCESS. HE WILL MOST LIKELY REQUIRE AN I AND D LEFT PRE P[place] B[place]. HIS SKIN IS NOT IN GOOD REPAIR AND HE HAS MULTIPLE SIGHTS DRAINING GOUTY TOPHUS AND PUS. HE IS A POOR SURGICAL CANDIDATE BUT I DO NOT BELIEVE HE WILL HEAL UNLESS SURGICAL DEBRIDEMENT IS PREFORMED. HE WILL MOST LIKELY REQUIRE A WOUND VAC POSTOPERATIVELY DUE TO THE POOR CONDITION OF THE SKIN AND POTENTIAL FOR THE NEED TO D?BRIDE THE SKIN WELL. THIS MAY MAKE HIS INCISION DIFFICULT TO CLOSE AFTER EXTENSIVE DEBRIDEMENT. WILL DISCUSS WITH INTERNAL MEDICINE AND ANESTHESIA REGARDING PATIENT MEDICAL STABILITY AND DISCUSS A POSSIBLE SURGERY DATE. (2) Cellulitis: Qualifiers: Laterality: left Site of cellulitis: extremity Site of cellulitis of extremity: lower extremity Qualified Code(s): L03.116 - Cellulitis of left lower limb Code(s): L03.90 - Cellulitis, unspecified Status: Acute Subjective Subjective Date/Time Seen: 02/13/24 16:16 Interval history: LEFT KNEE GOUTY BURSITIS WITH ABSCESS. THE PATIENT WAS RESTING COMFORTABLY TODAY. THE CELLULITIS APPEARS TO BE IT WAS YESTERDAY. HE CONTINUES TO BE AFEBRILE AND DHIS WBC COUNT IS NOT INCREASING. Exam Extrem: Other: VSS AFEBRILE DRESSING WITH GOUTY TOPHUS AND PURULENCE. CELLULITIS HAS NOT PROGRESSED SINCE YESTERDAY. TENDER AND FLUCTUANT, IN PRE PATE[place] BUR[place] REGION., CALF AND THIGH ARE NON TENDER Objective Data Vital Signs Vital Signs: Vital Signs - 24 hr 02/12/24 21:22 02/12/24 20:00 02/13/24 05:38 Temperature 36.4 C 36.7 C Pulse Rate 70 75 Respiratory Rate 13 14 Blood Pressure 100/48 L 106/54 L Pulse Oximetry 91 92 Oxygen Delivery Room Air 02/13/24 07:42 02/13/24 09:22 02/13/24 09:22 Temperature Pulse Rate 79 79 Respiratory Rate Blood Pressure Pulse Oximetry 95 Oxygen Delivery Room Air 02/13/24 08:00 02/13/24 14:00 Temperature 36.4 C L Pulse Rate 69 Respiratory Rate 20 Blood Pressure 88/51 L Pulse Oximetry 93 Oxygen Delivery Room Air Intake/Output Intake/Output: Intake & Output 02/10/24 02/11/24 02/12/24 02/13/24 23:59 23:59 23:59 23:59 Intake Total 9924 739 7344 Output Total 900 1825 900 Balance 820 -865 508 Meds/Results Medications: Active Medications Generic Name Dose Route Start Last Admin Trade Name Freq PRN Reason Stop Dose Admin Acetaminophen 1,000 mg 02/11/24 05:07 Acetaminophen 500 Mg Tablet PO Q6H PRN Mild Pain (1-3) or Fever Amiodarone HCl 200 mg 02/12/24 09:00 02/13/24 09:22 Amiodarone Hcl 200 Mg Tablet PO 200 mg DAILY JERRY Administration Artificial Tears 1 drop 02/11/24 17:00 02/13/24 09:00 Artificial Tears Ophth Soln 15 Ml Bottle EACH EYE 1 drop BID JERRY Administration Ascorbic Acid 500 mg 02/11/24 17:00 02/13/24 09:22 Ascorbic Acid 500 Mg Tablet PO 500 mg BID JERRY Administration Aspirin 81 mg 02/12/24 09:00 02/13/24 09:21 Aspirin 81 Mg Enteric Tablet PO 81 mg DAILY JERRY Administration Atorvastatin Calcium 40 mg 02/11/24 21:00 02/12/24 22:00 Atorvastatin 40 Mg Tablet PO 40 mg HS JERRY Administration Baclofen 5 mg 02/12/24 17:00 02/13/24 13:38 Baclofen 5 Mg Tablet PO 5 mg TID JERRY Administration Brimonidine Tartrate 1 drop 02/11/24 17:00 02/13/24 09:00 Brimonidine Tartrate 0.2% Op Soln 5 Ml Btl EACH EYE 1 drop BID JERRY Administration Dextrose 12.5 gm 02/11/24 15:42 Dextrose 50% 25 Gm/50 Ml Syringe IV PUSH PRN PRN Hypoglycemia Protocol Diclofenac Sodium 1 applic 02/11/24 15:34 Diclofenac Sodium 1% 100 Gm Gel (*Bkc) TOPICAL Q6H PRN Mild Pain (Scale Score 1-4) Duloxetine HCl 60 mg 02/12/24 09:00 02/13/24 09:23 Duloxetine Hcl 60 Mg Capsule. PO 60 mg DAILY JERRY Adminis
[2024-02-13 17:00] LABS: Glucose Point of Care 179 mg/dl (65-105)
[2024-02-13 19:58] LABS: Glucose Point of Care 190 mg/dl (65-105)
[2024-02-13] MEDS: ATORVASTATIN 40 MG TABLET PO (20:27)
[2024-02-13] MEDS: TAMSULOSIN HCL 0.4 MG CAPSULE 0.8 MG PO (20:27)
[2024-02-13] MEDS: traMADol HCL (*CRX) 50 MG TABLET 100 MG PO (20:28)
[2024-02-13] MEDS: LATANOPROST 0.005% OP SOLN 2.5 ML BTL 1 DROP EACH EYE (20:28)
[2024-02-13 21:34] VITALS: BP 114/69; PULSE 68; RESP 16; TEMP 36.6; O2SAT 94
[2024-02-14 05:29] VITALS: BP 118/73; PULSE 72; RESP 16; TEMP 36.8; O2SAT 94
[2024-02-14 07:19] LABS: Basophils Absolute Auto 0.1 K/mm3 (0.0-0.1); Basophils Percent Auto 0.9 % (0.2-1.2); Eosinophils Absolute Auto 0.1 K/mm3 (0-0.3); Eosinophils Percent Auto 1.6 % (0-4.4); Hematocrit 42.8 % (42.0-52.0); Hemoglobin 13.6 g/dL (14.0-18.0); Immature Granulocyte Absolute 0.09 K/mm3 (0.00-0.031); Immature Granulocyte Percent A 1.1 % (0-0.5); Lymphocytes Absolute Auto 1.09 K/mm3 (0.9-3.2); Lymphocytes Percent Auto 13.3 % (18.3-44.2); Mean Corpuscular HGB Conc 31.8 g/dl (32-36); Mean Corpuscular Hemoglobin 29.8 pg (26-34); Mean Corpuscular Volume 93.9 fl (80-100); Mean Platelet Volume 11.8 fl (7.4-10.4); Monocytes Absolute Auto 0.9 K/mm3 (0.1-0.6); Monocytes Percent Auto 10.5 % (2.6-8.5); Neutrophils Percent Auto 72.6 % (45.5-73.1); Platelet Count Result 141 k/mm3 (150-375); Red Blood Count 4.56 M/mm3 (4.6-6.20); Red Cell Distribution Width 15.9 % (11.5-14.5); White Blood Count 8.2 K/mm3 (4.5-10.0)
[2024-02-14 07:36] LABS: Anion Gap 8 mmol/L (4-12); Blood Urea Nitrogen 32 mg/dL (9-20); Calcium 8.9 mg/dL (8.4-10.2); Carbon Dioxide 24 mmol/L (22-30); Chloride 107 mmol/L (98-107); Estimated CRCL calculation 61 ml/min; Estimated Glomerular Filt Rate 55; Glucose 152 mg/dL (65-110); Potassium 3.7 mmol/L (3.4-5.0); Sodium 139 mmol/L (137-145)
[2024-02-14 08:03] LABS: Glucose Point of Care 154 mg/dl (65-105)
[2024-02-14] MEDS: METOPROLOL SUCCINATE EXT REL 25 MG TABCR PO (10:24)
[2024-02-14] MEDS: BRIMONIDINE TARTRATE 0.2% OP SOLN 5 ML BTL 1 DROP EACH EYE ×2 (10:25→17:50)
[2024-02-14] MEDS: levETIRAcetam 500 MG TABLET PO ×2 (10:25→20:33)
[2024-02-14] MEDS: LIDOCAINE 5% PATCH 1 PATCH TRANSDERM (10:26)
[2024-02-14] MEDS: ARTIFICIAL TEARS OPHTH SOLN 15 ML BOTTLE 1 DROP EACH EYE ×2 (10:26→17:49)
[2024-02-14] MEDS: MUPIROCIN 2% OINT 22 GM TUBE 1 APPLIC TOPICAL (10:27)
--- NOTE | 2024-02-14 11:37 | ECG_ITS ---
SEE SCANNED COPY FOR CONFIRMED REPORT MTDD
[2024-02-14 11:43] LABS: Glucose Point of Care 160 mg/dl (65-105)
--- NOTE | 2024-02-14 12:16 | PM.IMPN ---
Progress Note: A&P Assessment and Plan (1) Gouty bursitis: Code(s): M10.9 - Gout, unspecified Status: Acute Assessment and Plan: Discussed patient with Dr. Sanchez on the phone. Since WBC is WNL, VS stable, joint is less concerning for septic joint, and patient being a poor surgical candidate will continue to treat with IV antibiotics at this time. - Left bursa synovial fluid: blood appearance, 97 neutrophils, 2 lymphocytes, 1 monocytes, moderate crystals - Left bursa gram stain: POsitive for MRSA Staph - Continue Vancomycin. - Left knee fluctuance was marked and will be monitored for spreading. - ortho following and possible I&D planned for today, pending anesthesia and clearance - poor candidate for anesthesia due to extensive cardiac history - Analgesics - wound consulted for appropriate dressing (2) Ischemic cardiomyopathy: Code(s): I25.5 - Ischemic cardiomyopathy Status: Chronic Assessment and Plan: In no acute exacerbation. - Current medications: Jardiance 25 mg daily, Lasix 40 mg BID, Atorvastatin 40 mg daily, Metoprolol 25 mg daily - Pill Coater: Dr. Benitez. - Echo 01/02/24: EF of 20-25%, reduced right ventricular systolic function (3) Type 2 diabetes mellitus with hyperglycemia, with long-term current use of insulin: Code(s): E11.65 - Type 2 diabetes mellitus with hyperglycemia; Z79.4 - remote computer terminal operator (current) use of insulin Status: Chronic Assessment and Plan: - hypoglycemia protocol - POC blood glucose ACHS - home medication - insulin - correct regimen ordered - low dose TIDWM and HS - A1C 7.3 (4) Seizure: Code(s): R56.9 - Unspecified convulsions Status: Chronic Assessment and Plan: Per last seizure in August of 2023. Continue Keppra. (5) Hypothyroidism: Qualifiers: Hypothyroidism type: unspecified Qualified Code(s): E03.9 - Hypothyroidism, unspecified Code(s): E03.9 - Hypothyroidism, unspecified Status: Chronic Assessment and Plan: TSH WNL Continue home levothyroxine. (6) Coronary artery disease: Code(s): I25.10 - Atherosclerotic heart disease of [place] coronary artery without angina pectoris Status: Chronic Assessment and Plan: Status post CABG complicated by stroke. (7) History of CVA (cerebrovascular accident): Code(s): Z86.73 - Personal history of transient ischemic attack (TIA), and cerebral infarction without residual deficits Status: Chronic Assessment and Plan: Ischemic stroke following CABG in 2019 with left-sided residual weakness. Subjective Date/time seen: 02/14/24 12:16 Interval history: Ortho on board and recommends I&D of his wound due to lack of improvement with AB therapy. Wound cultures finalized with MRSA staph, will continue Vanc in the interim. Due to patient's extensive cardiac history, CHF and confirmed with cardiology that patient is at high risk for anesthesia. Discussed with Dr. Sanchez and will defer to anesthesia for evaluation. Review of Systems Review of Systems: All systems reviewed & are unremarkable except as noted in HPI and below Exam Narrative: General: Male in no acute respiratory distress who is nontoxic appearing, lying semi recumbent in bed. HEENT: Normocephalic. Atraumatic. PERRLA, EOMI. Neck: supple. Chest: Lungs are clear to auscultation bilaterally. No wheezes or crackles. CV: RRR. S1/S2. No murmurs, gallops, or rubs. Abd: soft, nontender. Nondistended. Positive bowel sounds. Ext: No clubbing, cyanosis, or edema. 2+ DP pulses bilaterally. Skin: Painful local fluctuation of the left prepatellar region with surrounding erythema with bloody drainage following aspiration. Surrounding erythema extending laterally down the tib-fib area. Neuro: Patient is alert and oriented x4. Weakness to bilaterally lower extremities L>R. Speech is clear. Psych: Normal mood and affect. Patient is pleasant
--- NOTE | 2024-02-14 12:28 | PM.PNORT ---
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 Surrounding tissue was cellulitis. Warm to touch. Erythema. No malodor. No purulence. Plan for patient to go to the operating room for an I and D and possible wound VAC placement versus closure of the wound by Dr. Sanchez. Surgical intervention currently pending approval from both the medicine team and the anesthesiology team given patient's medical history. Continue IV antibiotics in the interim. Pending decisions, may need to contact the Wound Clinic for wound care recommendations of surgical intervention is declined. Patient to be NPO pending surgical intervention potential. Consent to be obtained by the patient/family. (2) Cellulitis: Qualifiers: Laterality: left Site of cellulitis: extremity Site of cellulitis of extremity: lower extremity Qualified Code(s): L03.116 - Cellulitis of left lower limb Code(s): L03.90 - Cellulitis, unspecified Status: Acute (3) Joint pain: Code(s): M25.50 - Pain in unspecified joint Status: Acute (4) Ischemic cardiomyopathy: Code(s): I25.5 - Ischemic cardiomyopathy Status: Chronic (5) Ventricular tachycardia: Code(s): I47.20 - Ventricular tachycardia, unspecified Status: Acute (6) Acute on chronic combined systolic and diastolic CHF (congestive heart failure): Code(s): I50.43 - Acute on chronic combined systolic (congestive) and diastolic (congestive) heart failure Status: Acute (7) Non-ST elevation [place] (NSTEMI): Code(s): I21.4 - Non-ST elevation (NSTEMI) myocardial infarction Status: Acute Time Spent With Patient Time: Reviewed history, exam, radiographs and current labs with attending MD and covering surgeon, Dr. Sanchez, who agrees with current plan as indicated above. No further recommendations from Dr. Sanchez at this time. Subjective Subjective Date/Time Seen: 02/14/24 12:28 Interval history: Patient is lying in bed. Awakens to voice. Answers questions appropriately. Reports that he is hungry and is currently awaiting decisions regarding surgical intervention today for I and D of the left prepatellar bursa. Review of Systems Review of Systems: All systems reviewed & are unremarkable except as noted in HPI and below Exam Const: General: comfortable and no acute distress Resp: Effort & Inspection: normal respiratory effort Skin: Lesions: lesion noted ( Anterior knee, see below) Extrem: Left lower extremity: knee Details: tenderness ( anterior) Location: of the pre-patellar area, swelling Location: of the patella, normal ROM, crepitus ( anterior patella) and other ( open wounds with gouty tophus noted. Surrounding cellulitis. No significant knee joint effusion) Objective Data Vital Signs Vital Signs: Vital Signs - 24 hr 02/13/24 14:00 02/13/24 21:34 02/13/24 20:00 Temperature 36.4 C L 36.6 C Pulse Rate 69 68 Respiratory Rate 20 16 Blood Pressure 88/51 L 114/69 Pulse Oximetry 93 94 Oxygen Delivery Room Air 02/14/24 05:29 02/14/24 08:00 Temperature 36.8 C Pulse Rate 72 Respiratory Rate 16 Blood Pressure 118/73 Pulse Oximetry 94 Oxygen Delivery Room Air Intake/Output Intake/Output: Intake & Output 02/11/24 02/12/24 02/13/24 02/14/24 23:59 23:59 23:59 23:59 Intake Total 8537 606 0764 0 Output Total 900 1825 2750 500 Balance 820 -865 -882 -500 Meds/Results Medications: Active Medications Generic Name Dose Route Start Last Admin Trade Name Freq PRN Reason Stop Dose Admin Acetaminophen 1,000 mg 02/11/24 05:07 Acetaminophen 500 Mg Tablet PO Q6H PRN Mild Pain (1-3) or Fever Amiodarone HCl 200 mg 02/12/24 09:00 02/14/24 10:20 Amiodarone Hcl
[2024-02-14 14:00] VITALS: BP 119/72; PULSE 66; RESP 16; TEMP 36; O2SAT 93
[2024-02-14] MEDS: oxyCODONE HCL (*CRX) 5 MG TAB IR PO ×2 (15:11→20:34)
[2024-02-14 16:12] LABS: Vancomycin Trough 15.4 ug/mL (10.0-20.0)
[2024-02-14 16:33] LABS: Glucose Point of Care 211 mg/dl (65-105)
[2024-02-14] MEDS: PRIMIDONE 50 MG TABLET PO (17:49)
[2024-02-14] MEDS: BACLOFEN 5 MG TABLET PO (17:49)
[2024-02-14] MEDS: ASCORBIC ACID 500 MG TABLET PO (17:49)
[2024-02-14] MEDS: VANCOMYCIN 1,500 MG/NS 500 ML 1,500 MG/500 ML BAG 250 MG IVPB (17:49)
[2024-02-14] MEDS: PREGABALIN (*CRX) 75 MG CAPSULE PO (17:49)
[2024-02-14] MEDS: FUROSEMIDE 40 MG TABLET PO (17:49)
[2024-02-14] MEDS: INSULIN ASPART (*BKC) 100 UNITS/ML SUB-Q (17:51)
[2024-02-14] MEDS: ATORVASTATIN 40 MG TABLET PO (20:33)
[2024-02-14] MEDS: TAMSULOSIN HCL 0.4 MG CAPSULE 0.8 MG PO (20:33)
[2024-02-14 21:12] VITALS: BP 114/67; PULSE 62; RESP 13; TEMP 36.1; O2SAT 98
[2024-02-14 23:18] VITALS: O2SAT 97
[2024-02-15 05:50] VITALS: BP 121/65; PULSE 76; RESP 13; TEMP 36.3; O2SAT 96
[2024-02-15] MEDS: LEVOTHYROXINE SODIUM 25 MCG TABLET PO (06:03)
[2024-02-15] MEDS: LEVOTHYROXINE SODIUM 112 MCG TABLET PO (06:03)
[2024-02-15] MEDS: oxyCODONE HCL (*CRX) 5 MG TAB IR PO ×3 (06:03→20:38)
[2024-02-15 06:33] LABS: Basophils Absolute Auto 0.1 K/mm3 (0.0-0.1); Basophils Percent Auto 0.7 % (0.2-1.2); Eosinophils Absolute Auto 0.2 K/mm3 (0-0.3); Eosinophils Percent Auto 2.2 % (0-4.4); Hematocrit 42.5 % (42.0-52.0); Hemoglobin 13.4 g/dL (14.0-18.0); Immature Granulocyte Absolute 0.09 K/mm3 (0.00-0.031); Immature Granulocyte Percent A 1.1 % (0-0.5); Lymphocytes Absolute Auto 1.06 K/mm3 (0.9-3.2); Lymphocytes Percent Auto 12.5 % (18.3-44.2); Mean Corpuscular HGB Conc 31.5 g/dl (32-36); Mean Corpuscular Hemoglobin 29.7 pg (26-34); Mean Corpuscular Volume 94.2 fl (80-100); Mean Platelet Volume 12.6 fl (7.4-10.4); Monocytes Absolute Auto 0.8 K/mm3 (0.1-0.6); Monocytes Percent Auto 9.6 % (2.6-8.5); Neutrophils Absolute Auto 6.3 K/mm3 (1.3-6.7); Neutrophils Percent Auto 73.9 % (45.5-73.1); Platelet Count Result 136 k/mm3 (150-375); Red Blood Count 4.51 M/mm3 (4.6-6.20); Red Cell Distribution Width 15.9 % (11.5-14.5); White Blood Count 8.5 K/mm3 (4.5-10.0)
[2024-02-15 06:42] LABS: Anion Gap 8 mmol/L (4-12); Blood Urea Nitrogen 32 mg/dL (9-20); Calcium 8.6 mg/dL (8.4-10.2); Carbon Dioxide 24 mmol/L (22-30); Chloride 105 mmol/L (98-107); Estimated CRCL calculation 78 ml/min; Estimated Glomerular Filt Rate > 60; Glucose 141 mg/dL (65-110); Sodium 137 mmol/L (137-145)
[2024-02-15 07:40] LABS: Glucose Point of Care 145 mg/dl (65-105)
[2024-02-15 09:44] VITALS: PULSE 65
[2024-02-15] MEDS: FUROSEMIDE 40 MG TABLET PO ×2 (09:44→16:08)
[2024-02-15] MEDS: POTASSIUM CHLORIDE 10 MEQ ER TABLET PO (09:44)
[2024-02-15] MEDS: DULoxetine HCL 60 MG CAPSULE.DR PO (09:44)
[2024-02-15] MEDS: ASPIRIN 81 MG ENTERIC TABLET PO (09:44)
[2024-02-15] MEDS: THERAPEUTIC MULTIVITAMINS/MINERALS TAB (*BKC) 1 TABLET PO (09:44)
[2024-02-15] MEDS: PREGABALIN (*CRX) 75 MG CAPSULE PO ×2 (09:44→16:08)
[2024-02-15] MEDS: PRIMIDONE 50 MG TABLET PO ×2 (09:44→16:19)
[2024-02-15] MEDS: METOPROLOL SUCCINATE EXT REL 25 MG TABCR PO (09:44)
[2024-02-15 09:45] VITALS: PULSE 65
[2024-02-15] MEDS: EMPAGLIFLOZIN 25 MG TABLET PO (09:45)
[2024-02-15] MEDS: AMIODARONE HCL 200 MG TABLET PO (09:45)
[2024-02-15] MEDS: levETIRAcetam 500 MG TABLET PO ×2 (09:45→20:38)
[2024-02-15] MEDS: FERROUS GLUCONATE 324 MG TABLET PO (09:45)
[2024-02-15] MEDS: BACLOFEN 5 MG TABLET PO ×2 (09:45→16:19)
[2024-02-15] MEDS: MAGNESIUM OXIDE 400 MG TABLET PO (09:45)
[2024-02-15] MEDS: ASCORBIC ACID 500 MG TABLET PO ×2 (09:45→16:08)
[2024-02-15] MEDS: PANTOPRAZOLE 40 MG TABLET PO (09:45)
[2024-02-15] MEDS: LIDOCAINE 5% PATCH 1 PATCH TRANSDERM (09:47)
[2024-02-15] MEDS: MUPIROCIN 2% OINT 22 GM TUBE 1 APPLIC TOPICAL (09:48)
[2024-02-15] MEDS: BRIMONIDINE TARTRATE 0.2% OP SOLN 5 ML BTL 1 DROP EACH EYE ×2 (09:49→16:20)
[2024-02-15] MEDS: ARTIFICIAL TEARS OPHTH SOLN 15 ML BOTTLE 1 DROP EACH EYE ×2 (09:49→16:20)
--- NOTE | 2024-02-15 09:59 | PM.PNORT ---
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 Surrounding tissue was cellulitis. Warm to touch. Erythema. No malodor. No purulence. Plan for patient to go to the operating room for an I and D and possible wound VAC placement versus closure of the wound by Dr. Sanchez yesterday but unfortunately due to medical status, patient was not cleared for surgical intervention by anesthesia or the medicine team. Continue IV antibiotics and wound care as directed by the wound care team. Patient can follow up in the outpatient wound clinic for continued care. Will require daily dressing changes as well. (2) Cellulitis: Qualifiers: Laterality: left Site of cellulitis: extremity Site of cellulitis of extremity: lower extremity Qualified Code(s): L03.116 - Cellulitis of left lower limb Code(s): L03.90 - Cellulitis, unspecified Status: Acute (3) Joint pain: Code(s): M25.50 - Pain in unspecified joint Status: Acute (4) Ischemic cardiomyopathy: Code(s): I25.5 - Ischemic cardiomyopathy Status: Chronic (5) Ventricular tachycardia: Code(s): I47.20 - Ventricular tachycardia, unspecified Status: Acute (6) Acute on chronic combined systolic and diastolic CHF (congestive heart failure): Code(s): I50.43 - Acute on chronic combined systolic (congestive) and diastolic (congestive) heart failure Status: Acute (7) Non-ST elevation [place] (NSTEMI): Code(s): I21.4 - Non-ST elevation (NSTEMI) myocardial infarction Status: Acute Time Spent With Patient Time: Reviewed history, exam, radiographs and current labs with attending MD and covering surgeon, Dr. Sanchez, who agrees with current plan as indicated above. No further recommendations from Dr. Sanchez at this time. Subjective Subjective Date/Time Seen: 02/15/24 09:59 Interval history: Patient is lying in bed. Awakens to voice. Answers questions appropriately. No new concerns. Review of Systems Review of Systems: All systems reviewed & are unremarkable except as noted in HPI and below Exam Const: General: comfortable and no acute distress Resp: Effort & Inspection: normal respiratory effort Skin: Lesions: lesion noted ( Anterior knee, see below) Extrem: Left lower extremity: knee Details: tenderness ( anterior) Location: of the pre-patellar area, swelling Location: of the patella, normal ROM, crepitus ( anterior patella) and other ( open wounds with gouty tophus noted. Surrounding cellulitis. No significant knee joint effusion) Objective Data Vital Signs Vital Signs: Vital Signs - 24 hr 02/14/24 14:00 02/14/24 21:12 02/14/24 23:18 Temperature 36.0 C L 36.1 C L Pulse Rate 66 62 Respiratory Rate 16 13 Blood Pressure 119/72 114/67 Pulse Oximetry 93 98 97 Oxygen Delivery Room Air 02/15/24 05:50 02/15/24 09:44 02/15/24 09:45 Temperature 36.3 C L Pulse Rate 76 65 65 Respiratory Rate 13 Blood Pressure 121/65 Pulse Oximetry 96 Oxygen Delivery Intake/Output Intake/Output: Intake & Output 02/12/24 02/13/24 02/14/24 02/15/24 23:59 23:59 23:59 23:59 Intake Total 960 1498 567 5346 Output Total 1825 2750 2100 900 [facility] -[phone] 100 Meds/Results Medications: Active Medications Generic Name Dose Route Start Last Admin Trade Name Freq PRN Reason Stop Dose Admin Acetaminophen 1,000 mg 02/11/24 05:07 Acetaminophen 500 Mg Tablet PO Q6H PRN Mild Pain (1-3) or Fever Amiodarone HCl 200 mg 02/12/24 09:00 02/15/24 09:45 Amiodarone Hcl 200 Mg Tablet PO 200 mg DAILY JERRY Administration Artificial Tears 1 drop 02/11/24 17:00 02/15/24 09:49 Artificial Tears Ophth Soln 15 Ml Bottle EACH EYE 1 drop B
--- NOTE | 2024-02-15 11:12 | PM.IMPN ---
Subjective Date/time seen: 02/15/24 11:12 Objective Data Vital Signs Vital Signs: Vital Signs - 24 hr 02/14/24 14:00 02/14/24 21:12 02/14/24 23:18 Temperature 96.8 F L 96.9 F L Pulse Rate 66 62 Respiratory Rate 16 13 Blood Pressure 119/72 114/67 Pulse Oximetry 93 98 97 Oxygen Delivery Room Air 02/15/24 05:50 02/15/24 09:44 02/15/24 09:45 Temperature 97.4 F L Pulse Rate 76 65 65 Respiratory Rate 13 Blood Pressure 121/65 Pulse Oximetry 96 Oxygen Delivery Intake/Output Intake/Output: Intake & Output 02/12/24 02/13/24 02/14/24 02/15/24 23:59 23:59 23:59 23:59 Intake Total 960 9108 319 3864 Output Total 1825 2750 2100 900 [facility] [phone] Meds/Results Medications: Active Medications Generic Name Dose Route Start Last Admin Trade Name Freq PRN Reason Stop Dose Admin Acetaminophen 1,000 mg 02/11/24 05:07 Acetaminophen 500 Mg Tablet PO Q6H PRN Mild Pain (1-3) or Fever Amiodarone HCl 200 mg 02/12/24 09:00 02/15/24 09:45 Amiodarone Hcl 200 Mg Tablet PO 200 mg DAILY JERRY Administration Artificial Tears 1 drop 02/11/24 17:00 02/15/24 09:49 Artificial Tears Ophth Soln 15 Ml Bottle EACH EYE 1 drop BID JERRY Administration Ascorbic Acid 500 mg 02/11/24 17:00 02/15/24 09:45 Ascorbic Acid 500 Mg Tablet PO 500 mg BID JERRY Administration Aspirin 81 mg 02/12/24 09:00 02/15/24 09:44 Aspirin 81 Mg Enteric Tablet PO 81 mg DAILY JERRY Administration Atorvastatin Calcium 40 mg 02/11/24 21:00 02/14/24 20:33 Atorvastatin 40 Mg Tablet PO 40 mg HS JERRY Administration Baclofen 5 mg 02/12/24 17:00 02/15/24 09:45 Baclofen 5 Mg Tablet PO 5 mg TID JERRY Administration Brimonidine Tartrate 1 drop 02/11/24 17:00 02/15/24 09:49 Brimonidine Tartrate 0.2% Op Soln 5 Ml Btl EACH EYE 1 drop BID JERRY Administration Dextrose 12.5 gm 02/11/24 15:42 Dextrose 50% 25 Gm/50 Ml Syringe IV PUSH PRN PRN Hypoglycemia Protocol Diclofenac Sodium 1 applic 02/11/24 15:34 Diclofenac Sodium 1% 100 Gm Gel (*Bkc) TOPICAL Q6H PRN Mild Pain (Scale Score 1-4) Duloxetine HCl 60 mg 02/12/24 09:00 02/15/24 09:44 Duloxetine Hcl 60 Mg Capsule.Dr PO 60 mg DAILY JERRY Administration Empagliflozin 25 mg 02/12/24 09:00 02/15/24 09:45 Empagliflozin 25 Mg Tablet PO 25 mg DAILY JERRY Administration Enoxaparin Sodium 40 mg 02/13/24 09:00 02/14/24 10:25 Enoxaparin 40 Mg/0.4 Ml Syringe SUB-Q Not Given DAILY [facility] Ferrous Gluconate 324 mg 02/12/24 09:00 02/15/24 09:45 Ferrous Gluconate 324 Mg Tablet PO 324 mg DAILY JERRY Administration Furosemide 40 mg 02/11/24 17:00 02/15/24 09:44 Furosemide 40 Mg Tablet PO 40 mg BID JERRY Administration Glucagon 1 mg 02/11/24 15:42 Glucagon For Inj 1 Mg Vial IM PRN PRN Hypoglycemia Protocol Glucose 15 gm 02/11/24 15:42 Glucose Oral Gel 15 Gm Of Glucse In 37.5 Gm Tube PO PRN PRN Hypoglycemia Protocol Hydromorphone HCl 1 mg 02/11/24 05:07 Hydromorphone Hcl Inj (*Crx) 1 Mg/Ml Syr IV PUSH Q3H PRN Pain Rated 7-10 Dextrose 1,000 mls @ 100 mls/hr 02/11/24 15:42 Dextrose 5% 1,000 Ml IVPB PRN PRN Hypoglycemia Protocol Vancomycin HCl 1,500 mg in 500 mls @ 250 mls/hr 02/14/24 17:00 02/14/24 17:49 Vancomycin 1,500 Mg/Ns 500 Ml IVPB 250 mls/hr Q24H JERRY Administration Insulin Aspart 2 - 5 units 02/11/24 17:00 02/15/24 09:49 Insulin Aspart (*Bkc) 100 Units/Ml SUB-Q Not Given TIDWM [facility] Protocol Latanoprost 1 drop 02/11/24 21:00 02/14/24 21:00 Latanoprost 0.005% Op Soln 2.5 Ml Btl EACH EYE Not Given HS JERRY Levetiracetam 500 mg 02/11/24 21:00 02/15/24 09:45 Levetiracetam 500 Mg Tablet PO 500 mg Q12HR JERRY Administration Levothyroxine Sodium 112 mcg 02/12/24 06:30 02/15/24 06:03 Levothyroxine Sodium 112 Mcg
[2024-02-15 11:29] LABS: Glucose Point of Care 203 mg/dl (65-105)
[2024-02-15 14:00] VITALS: BP 95/58; PULSE 62; RESP 14; TEMP 36.4; O2SAT 96
--- NOTE | 2024-02-15 15:10 | PM.DS ---
DS: Admitting Diagnosis Discharge Date Left knee swelling and pain Admitting Diagnosis Tophus gout DS: Discharge Diagnosis Discharge Diagnosis (1) Gouty bursitis: Code(s): M10.9 - Gout, unspecified Status: Acute (2) Cellulitis: Qualifiers: Laterality: left Site of cellulitis: extremity Site of cellulitis of extremity: lower extremity Qualified Code(s): L03.116 - Cellulitis of left lower limb Code(s): L03.90 - Cellulitis, unspecified Status: Acute (3) Joint pain: Code(s): M25.50 - Pain in unspecified joint Status: Acute (4) Leg pain: Code(s): M79.606 - Pain in leg, unspecified Status: Acute (5) Ischemic cardiomyopathy: Code(s): I25.5 - Ischemic cardiomyopathy Status: Chronic (6) Acute on chronic combined systolic and diastolic CHF (congestive heart failure): Code(s): I50.43 - Acute on chronic combined systolic (congestive) and diastolic (congestive) heart failure Status: Acute (7) History of CVA (cerebrovascular accident): Code(s): Z86.73 - Personal history of transient ischemic attack (TIA), and cerebral infarction without residual deficits Status: Chronic (8) Seizure: Code(s): R56.9 - Unspecified convulsions Status: Chronic (9) Hypothyroidism: Qualifiers: Hypothyroidism type: unspecified Qualified Code(s): E03.9 - Hypothyroidism, unspecified Code(s): E03.9 - Hypothyroidism, unspecified Status: Chronic DS: Summary Hospital Course Reason for hospitalization: Left knee swelling and pain Hospital Course: H&P: HPI History of Present Illness Date/Time: 02/11/24? 08:50 Chief Complaint: Left knee swelling and pain Narrative: 63 year old male with history of coronary artery disease status post CABG, cardiomyopathy with an EF of 20-25% on 01/02/24, reduced right ventricular systolic function, pulmonary hypertension, hypertension, insulin-dependent diabetes mellitus, stroke, and seizures presents to the hospital from [facility] for pain and swelling to the left knee. Patient states that the swelling began a few days ago after continuous use of a standing assistance device that requires him to kneel on a pad. He then developed increased pain yesterday which resulted in him coming to the hospital. He denies any fever, nausea/vomiting, or changes in range of motion. Of note patient has left sided residual weakness due to prior stroke in 2019. Patient states that he has not been able to fully straighten his left knee or move his toes since then. He does note worsening pain with minimal movement but is able to move the extremity. Discussed patient with Dr. Sanchez on the phone. Since WBC is WNL, VS stable, joint is less concerning for septic joint, and patient being a poor surgical candidate will continue to treat with IV antibiotics at this time. The left knee fluctuance was marked and will be monitored for spreading. ED workup: CBC without leukocytosis. Chemistries unremarkable. CRP elevated 2.5, ESR 0.7, Uric acid 4.4. Left knee XR revealed multiple soft tissue calcification/ossifications in the prepatellar soft tissues that are similar to prior exam, nonspecific, chronic and mild degenerative joint disease. Left knee aspiration of synovial fluid revealed elevated neutrophils 97 and mod synovial crystals. Bursa culture showing gram positive cocci in pairs, concerning for staph. Blood cultures pending. Patient started on vancomycin. NPO ordered placed for plan to go to OR 02/[address] Sanchez for bursa debridement. Interval Hx: 02/11- Patient is pleasant lying in bed. He states he has worsening spasms going down his left leg. Restarted his home baclofen which he states helps. He continues to have an exudative bloody discharge from the aspiration site of the left knee. The erythema extends laterally along the tib fib region. Plan for Dr. Sanchez to see patient today. He remains on vancomyci
[2024-02-15] MEDS: SULFAMETHOXAZOLE/TRIMETHOPRIM 800/160 MG DS TABLET 2 TAB PO (16:19)
[2024-02-15 16:34] LABS: Glucose Point of Care 201 mg/dl (65-105)
[2024-02-15 17:25] LABS: Influenza A QL RT-PCR Negative (Negative); Influenza B QL RT-PCR Negative (Negative); SARS-CoV-2 RNA PCR Negative (Negative)
[2024-02-15 20:00] VITALS: PULSE 60; RESP 18; O2SAT 91
[2024-02-15 20:21] LABS: Glucose Point of Care 228 mg/dl (65-105)
[2024-02-15] MEDS: traMADol HCL (*CRX) 50 MG TABLET 100 MG PO (20:35)
[2024-02-15] MEDS: TAMSULOSIN HCL 0.4 MG CAPSULE 0.8 MG PO (20:37)
[2024-02-15] MEDS: ATORVASTATIN 40 MG TABLET PO (20:38)
[2024-02-15 20:45] VITALS: BP 94/59; PULSE 60; RESP 18; TEMP 36; O2SAT 91
== END 2024-02-15 21:00 | DRG 554 ==
LOC: ANHED 02-11 03:36 → ANH3MEDSUR 02-11 04:04
PROVIDERS: Orthopaedic Surgery; Student in an Organized Health Care Education/Training Program; Admitting Provider Internal Medicine; Emergency Provider Physician Assistant; Visit Provider Nurse Practitioner
DX: M1A.0621 Idiopathic chronic gout, left knee, with tophus (tophi) (principal); L03.116 Cellulitis of left lower limb; I13.0 Hypertensive heart and chronic kidney disease with heart failure and stage 1 through stage 4 chronic kidney disease, or unspecified chronic kidney disease; I50.42 Chronic combined systolic (congestive) and diastolic (congestive) heart failure; I69.354 Hemiplegia and hemiparesis following cerebral infarction affecting left non-dominant side; M71.062 Abscess of bursa, left knee; B95.62 Methicillin resistant Staphylococcus aureus infection as the cause of diseases classified elsewhere; I25.10 Atherosclerotic heart disease of native coronary artery without angina pectoris; I25.5 Ischemic cardiomyopathy; I27.20 Pulmonary hypertension, unspecified; N18.30 Chronic kidney disease, stage 3 unspecified; N40.0 Benign prostatic hyperplasia without lower urinary tract symptoms; E11.22 Type 2 diabetes mellitus with diabetic chronic kidney disease; E78.5 Hyperlipidemia, unspecified; E03.9 Hypothyroidism, unspecified; E11.9 Type 2 diabetes mellitus without complications; R56.9 Unspecified convulsions; H40.9 Unspecified glaucoma; F32.A Depression, unspecified; I25.2 Old myocardial infarction; Z79.82 Long term (current) use of aspirin; Z79.4 Long term (current) use of insulin; Z11.52 Encounter for screening for COVID-19; Z95.1 Presence of aortocoronary bypass graft; Z98.1 Arthrodesis status; Z87.891 Personal history of nicotine dependence
CPT/HCPCS: 20610; 36415; 73562; 80048; 80202; 81001; 82565; 82948; 83036; 83605; 84443; 84550; 85025; 85652; 86140; 87040; 87070; 87075; 87147; 87181; 87205; 87636; 89051; 89060; 93005; 96365; 96366; 96372; 96375; 99285; A9270; G0378; J1170; J1650; J1815; J2270; J3370

== ENCOUNTER 2024-03-28 18:34 | Emergency (ER) | payer MEDICARE, MEDICAID, SELFPAY ==
--- NOTE | ~2024-03-28 | XR_ITS ---
EXAMINATION: XR chest 2V DATE: 03/28/2024 19:12 INDICATION: Chest pain TECHNIQUE: frontal and lateral views of the chest were obtained. COMPARISON: Chest radiograph dated 01/03/2024, 11/27/[address] studies dated 11/21/2023 and 07/05/2023 FINDINGS: Persistent opacity in the posterior left lower lung zone with appearance on prior CT studies includin g volume loss and architectural distortion most consistent with chronic round atelectasis. Blunting a t the left costophrenic angle and posterior sulcus consistent with small pleural effusion. Difficult to exclude associated pneumonia in the left lower lung zone. No pulmonary edema, pneumothorax or righ t-sided pleural effusion. Cardiomegaly. Median sternotomy wires and mediastinal surgical clips are se en, likely from prior coronary artery bypass grafting. Mild thoracic spondylosis with chronic mild an terior wedging of a few lower thoracic vertebral bodies. IMPRESSION: 1. Persistent opacities in the left lower lung zone consistent with combination of chronic round atel ectasis and small left pleural effusion. Difficult to exclude superimposed pneumonia. Reviewed, dictated and finalized at location A. IMPRESSION: 1. Persistent opacities in the left lower lung zone consistent with combination of chronic round atelectasis and small left pleural effusion. Difficult to exc lude superimposed pneumonia.
--- NOTE | ~2024-03-28 | XR_ITS ---
EXAMINATION: XR shoulder LT min 2V DATE: 03/28/2024 19:49 INDICATION: Left shoulder pain TECHNIQUE: AP internally and externally rotated, AP oblique externally rotated and transscapular Y vi ews of the left shoulder were obtained. COMPARISON: 12/15/2014 FINDINGS: Normal alignment. No fracture. Moderate left glenohumeral and acromioclavicular osteoarthritis the l atter with small inferiorly directed osteophytes. Small subacromial spur with new mild narrowing of t he subacromial space which suggests possibility of interval rotator cuff tear. Median sternotomy wire s and mediastinal surgical clips are seen, likely from prior coronary artery bypass grafting. Soft ti ssues are unremarkable. IMPRESSION: 1. Moderate left glenohumeral and acromioclavicular osteoarthritis. 2. Subacromial spur, inferior directed acromioclavicular osteophytes and narrowing of the subacromial space suggesting possibility of rotator cuff tear. Reviewed, dictated and finalized at location A. IMPRESSION: 1. Moderate left glenohumeral and acromioclavicular osteoarthritis. 2. Subacromial spur, inferior directed acromioclavicular osteophytes and narrow ing of the subacromial space suggesting possibility of rotator cuff tear.
--- NOTE | ~2024-03-28 | CT_ITS ---
CORRECTED REPORT corrected examination description [facility] [place] 04/04/24 This report was recreated on 04/04/2024. Original report was EXAMINATION: CTA UE LT DATE: 03/28/2024 21:07 INDICATION: Left shoulder pain and decreased left radial pulse TECHNIQUE: Computed tomographic angiography (CTA) of the left upper extremity was performed with 100 mL Omnipaque 350 intravenous contrast. Automated exposure control and iterative reconstruction technique were employed. The dose-length product was 1519.08 mGy-cm. COMPARISON: None. FINDINGS: Normal caliber thoracic aorta with no stenosis or dissection. There is no stenosis with good contrast opacification of the left subclavian, axillary and brachial artery extending to below the elbow. Distal to the bifurcation of the left brachial artery the ulnar artery appears atretic with minimal nearly indiscernible contrast seen along portions of the arteries including at the level of Guyon's canal and the hand. No contrast opacification identified along the left radial artery. Phase of contrast is considered unlikely as an etiology for the poor opacification as good contrast opacification to be seen in some of the smaller arteries in the pelvis and visualized proximal left thigh. Findings in the visualized chest, abdomen and pelvis of been described on separate CT angiogram of the chest, abdomen or pelvis. Of note, in the current study there is an irregular elongated filling defect within the dependent layering contrast within the bladder which is of indeterminate etiology. IMPRESSION: 1. No evident contrast opacification of the left brachial artery and minimal contrast in the atretic left pulmonary artery with no evident hemodynamically significant stenosis in the left brachial or more proximal arteries. There is concerning for thrombosis of the left radial artery with differential including lobe of the left contrast bolus in the left upper extremity resulting from a nonvisualized more distal stenosis including in the smaller peripheral arteries suggesting the setting of her Raynaud's disease. 2. Irregular elongated filling defect within the dependent bladder which is of indeterminate etiology, potentially thrombus. Correlate with urinalysis. Reviewed, dictated and finalized at location A. MTDD IMPRESSION: 1. No evident contrast opacification of the left brachial artery and minimal c ontrast in the atretic left pulmonary artery with no evident hemodynamically si gnificant stenosis in the left brachial or more proximal arteries. There is con cerning for thrombosis of the left radial artery with differential including lo be of the left contrast bolus in the left upper extremity resulting from a nonv isualized more distal stenosis including in the smaller peripheral arteries sug gesting the setting of her Raynaud's disease. 2. Irregular elongated filling defect within the dependent bladder which is of indeterminate etiology, potentially thrombus. Correlate with urinalysis.
--- NOTE | ~2024-03-28 | US_ITS ---
EXAMINATION: US art doppler w press UE BI DATE: 03/28/2024 23:25 INDICATION: Diminished left upper extremity pulses TECHNIQUE: Segmental pressures and plethysmographic and Doppler waveforms of the upper extremity sonia emir were obtained. COMPARISON: None. FINDINGS: Right and left brachial artery pressures of 158 mm Hg and 158 mm Hg, respectively, are concordant (no rmal difference <= 30 mmHg). The right finger:brachial systolic pressure ratio is 0.98 (normal > 0.8) . Arterial waveforms are triphasic at the right axillary and radial arteries and biphasic at the righ t subclavian, brachial and ulnar arteries all with normal systolic upstrokes (normal upstroke < 0.2 s ). The left finger:brachial systolic pressure ratio is 0.89. Arterial waveforms are biphasic throughout the arteries of the left upper limb. There appear to be mildly delayed upstrokes on the left radial a nd ulnar arterial Doppler waveforms however when re-interrogated on color Doppler imaging the left ra dial artery waveform appeared biphasic with a normal systolic upstroke. IMPRESSION: 1. No significant arterial occlusive disease in either upper limb with normal bilateral finger brachi al indices. Reviewed, dictated and finalized at location A. IMPRESSION: 1. No significant arterial occlusive disease in either upper limb with normal b ilateral finger brachial indices.
--- NOTE | ~2024-03-28 | CT_ITS ---
EXAMINATION: CTA chest abdomen pelvis DATE: 03/28/2024 21:07 INDICATION: Left shoulder and chest pain TECHNIQUE: Computed tomographic angiography (CTA) of the chest, abdomen, and pelvis was performed 100 mL Omnipaque-350 intravenous contrast. Automated exposure control and iterative reconstruction techn ique were employed. The dose-length product was 1922.92 mGy-cm. COMPARISON: Chest CT dated 11/21/2023 and 07/05/[address] abdomen and pelvis dated 06/04/2021 FINDINGS: Chest: Although not performed as a dedicated pulmonary embolism protocol there is good opacification of the pulmonary arteries which demonstrates no pulmonary embolism with decrease sensitivity in the smaller subsegmental pulmonary arteries. Again seen are few small calcified nodules consistent with old granu lomatous disease within a region of chronic round atelectasis along the left lung base with correspon ding architectural distortion volume loss in the left lower lobe. There is mild smooth septal line th ickening at the bilateral lung bases consistent with mild pulmonary edema. Small left pleural effusio n. Cardiomegaly with coronary artery disease and change of prior mediastinal and coronary artery bypa ss grafting. Thoracic aorta is normal in caliber with no dissection. There is some mediastinal lympha denopathy which is increased since 07/05/2023. For reference the cephalad-most right paratracheal lymp h node is increased from 9 mm in short axis diameter to 1.3 cm and a more caudal right paratracheal l ymph node has increased from 1.3 cm to 1.6 cm. Chronic mild anterior wedging of a few lower thoracic vertebral bodies. Severe spondylosis at C7-T1 with mild cervical and moderate thoracic spondylosis. Abdomen and pelvis: Liver, gallbladder, pancreas and bilateral adrenal glands are normal. Chronic splenomegaly measuring 15.1 cm craniocaudal length which measured 14.2 cm on 06/04/2021. Bowels including the appendix are no rmal. Bladder is normal. Prostatomegaly. No free intraperitoneal gas or fluid. Unchanged mild retrope ritoneal lymph node more notable for number than size with no pathologically enlarged lymph nodes in the abdomen or pelvis. Abdominal aorta is normal in caliber with small amount scattered atherosclerot ic plaque. No dissection or aneurysm. There is moderate stenosis at the proximal celiac axis with mil d poststenotic dilation. This appears to result from extrinsic compression from the sheri of the diaph ragm. No other hemodynamically significant stenosis in the remaining arteries of the abdomen or pelvi s. Small fat-containing umbilical hernia. Transitional partially lumbarized S1 segment. Moderate to s evere lumbar spondylosis. IMPRESSION: 1. Likely congestive heart failure with cardiomegaly, mild pulmonary edema at the lung bases and smal l left pleural effusion. 2. Stable appearance of chronic round atelectasis/scarring at the basilar left lower lobe. 3. No acute intra-abdominal/pelvic process. 4. Mild interval progression since 07/05/2023 and still relatively mild mediastinal lymphadenopathy mo st likely reactive although could not exclude metastatic disease or lymphoma. 5. No significant change in mild splenomegaly. 6. 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 Reviewed, dictated and finalized at location A. IMPRESSION: 1. Likely congestive heart failure with cardiomegaly, mild pulmonary edema at t he lung bases and small left pleural effusion. 2. Stable appearance of chronic round atelectasis/scarring at the basilar left lower lobe. 3. No acute intra-abdominal/pelvic process. 4. Mild interval progression since 07/05/2023 and still relatively mild mediasti nal lymp
[2024-03-28 18:34] VITALS: BP 145/74; PULSE 84; RESP 17; TEMP 36.7; O2SAT 96
[2024-03-28 18:40] VITALS: O2SAT 100
--- NOTE | 2024-03-28 18:46 | ECG_ITS ---
SEE SCANNED COPY FOR CONFIRMED REPORT MTDD
[2024-03-28 19:05] LABS: Basophils Absolute Auto 0.1 K/mm3 (0.0-0.1); Eosinophils Absolute Auto 0.2 K/mm3 (0-0.3); Hematocrit 42.8 % (42.0-52.0); Hemoglobin 13.4 g/dL (14.0-18.0); Immature Granulocyte Absolute 0.09 K/mm3 (0.00-0.031); Immature Granulocyte Percent A 1.2 % (0-0.5); Lymphocytes Percent Auto 13.8 % (18.3-44.2); Mean Corpuscular HGB Conc 31.3 g/dl (32-36); Mean Corpuscular Hemoglobin 29.6 pg (26-34); Mean Corpuscular Volume 94.7 fl (80-100); Monocytes Absolute Auto 0.6 K/mm3 (0.1-0.6); Monocytes Percent Auto 8.6 % (2.6-8.5); Neutrophils Absolute Auto 5.2 K/mm3 (1.3-6.7); Neutrophils Percent Auto 72.4 % (45.5-73.1); Platelet Count Result 144 k/mm3 (150-375); Red Blood Count 4.52 M/mm3 (4.6-6.20); Red Cell Distribution Width 17.5 % (11.5-14.5); White Blood Count 7.2 K/mm3 (4.5-10.0)
[2024-03-28 19:16] LABS: Alanine Aminotransferase 18 U/L (6-50); Albumin Level 4.3 g/dL (3.5-5.1); Alkaline Phosphatase 193 U/L (38-126); Anion Gap 9 mmol/L (4-12); Aspartate Amino Transferase 30 U/L (17-59); Bilirubin,Total 0.9 mg/dL (0.2-1.3); Blood Urea Nitrogen 44 mg/dL (9-20); Calcium 8.5 mg/dL (8.4-10.2); Carbon Dioxide 24 mmol/L (22-30); Chloride 107 mmol/L (98-107); Estimated CRCL calculation 61 ml/min; Estimated Glomerular Filt Rate 55; Glucose 162 mg/dL (65-110); Lipase 368 U/L (23-300); Potassium 4.4 mmol/L (3.4-5.0); Sodium 140 mmol/L (137-145)
[2024-03-28 19:21] LABS: INR 1.3; Prothrombin Time 16.5 Seconds (11.1-14.7)
[2024-03-28 19:22] LABS: Partial Thromboplastin Time 44.5 Seconds (22.3-36.8)
[2024-03-28 19:26] LABS: Troponin I < 0.012 ng/mL (0.000-0.034)
--- NOTE | 2024-03-28 19:32 | ED.CHESTPAIN ---
HPI - Chest Pain General Chief Complaint: Chest Pain Stated Complaint: chest pain Time Seen by Provider: 03/28/24 19:01 History of Present Illness HPI narrative: Patient with complex history including CABG done at [facility], presents here with pain to his left shoulder that he states is going to his chest and down his arm. Has had similar symptoms in the past but seems worse today. Related Data Home Medications Medication Instructions Recorded Confirmed aspirin 81 mg tablet,delayed 81 mg PO DAILY heart disease 03/30/21 03/13/24 release atorvastatin 40 mg tablet 40 mg PO HS high cholesterol 03/30/21 03/13/24 biotin 5,000 mcg disintegrating 5,000 mcg PO DAILY supplement 03/30/21 03/13/24 tablet levothyroxine 137 mcg tablet 137 mcg PO QAM hypothyroidism 03/30/21 03/13/24 tamsulosin 0.4 mg capsule 0.8 mg PO HS benign prostatic 03/30/21 03/13/24 hyperplasia ascorbic acid (vitamin C) 500 mg 500 mg PO BID wound healing 01/18/22 03/13/24 capsule duloxetine 60 mg capsule,delayed 60 mg PO DAILY depression 01/18/22 03/13/24 release baclofen 5 mg tablet 10 mg PO TID pain 06/09/22 03/13/24 dulaglutide 0.75 mg/0.5 mL 0.75 mg subcut WEEKLY 06/09/22 03/13/24 subcutaneous pen injector (Trulicity) empagliflozin 25 mg tablet 25 mg PO DAILY type 2 diabetes 06/09/22 03/13/24 (Jardiance) ferrous gluconate 324 mg (38 mg 324 mg PO DAILY supplementation 06/09/22 03/13/24 iron) tablet ipratropium 0.5 mg-albuterol 3 mg 3 ml inhalation Q6H PRN Shortness 06/09/22 03/13/24 (2.5 mg base)/3 mL nebulization Of Breath soln latanoprost 0.005 % eye drops 1 drp EACH EYE HS glaucoma 06/09/22 03/13/24 multivitamin with minerals (Daily 1 tablet PO DAILY wound healing ##0 06/09/22 03/13/24 Multivitamin-Minerals tablet) brimonidine 0.2 % eye drops 1 drp EACH EYE BID glaucoma 12/29/22 03/13/24 diclofenac sodium 1 % topical gel 1 ea topical Q6H PRN Mild Pain 12/29/22 03/13/24 (Scale Score 1-4) Nystatin Powder 1 applic topical Q12H PRN Rash 03/06/23 03/13/24 acetaminophen 500 mg tablet 1,000 mg PO Q8H PRN Pain (Scale 03/06/23 03/13/24 (Acetaminophen Extra Strength) Score 4-6) azelastine 137 mcg (0.1 %) nasal 1 spray intranasal Q12H allergic 03/06/23 03/13/24 spray aerosol rhinitis magnesium oxide 400 mg (241.3 mg 400 mg PO DAILY hypomagnesemia 03/06/23 03/13/24 magnesium) tablet peg [id number] 1 1 drp EACH EYE BID dry eyes 03/06/23 03/13/24 %-0.2 %-0.2 % eye drops (Artificial Tears ([id number])) glucagon 1 mg injection kit 1 mg subcut PRN PRN Hypoglycemia 04/17/23 03/13/24 insulin glargine 100 unit/mL (3 10 unit subcut QPM 04/17/23 03/13/24 mL) subcutaneous pen (Lantus Solostar U-100 Insulin) insulin lispro 100 unit/mL 3 unit subcut AC 04/17/23 03/13/24 subcutaneous pen (Humalog KwikPen (U-100) Insulin) omeprazole 20 mg capsule,delayed 20 mg PO DAILY 04/17/23 03/13/24 release Zinc-50 50 mg PO HS 05/15/23 03/13/24 magnesium citrate 296 ml PO PRN PRN Constipation 05/15/23 03/13/24 metronidazole 1 applic topical PRN PRN Rash 05/15/23 03/13/24 cetirizine 10 mg tablet 10 mg PO DAILY PRN Allergy Symptoms 06/14/23 03/13/24 miconazole nitrate 2 % topical 1 applic topical HS 06/14/23 03/13/24 cream bisacodyl 10 mg rectal suppository 10 mg RECTAL DAILY PRN Constipation 01/02/24 03/13/24 carboxymethylcellulose 0.5 1 drp EACH EYE BID 01/02/24 03/13/24 %-glycerin 0.9 % eye drops insulin lispro 100 unit/mL 1 sliding scale dose subcut 01/02/24 03/13/24 subcutaneous pen (Humalog KwikPen USEASDIRECTD (U-100) Insulin) magnesium hydroxide 400 mg/5 mL 30 ml PO HS PRN Constipation 01/02/24 03/13/24 oral suspension (Milk of Magnesia) metoprolol succinate 25 mg 25 mg PO DAILY 01/02/24 03/13/24 tablet,extended release 24 hr (Toprol XL) polyethylene glycol 3350 17 gram 17 g PO DAILY PRN Constipation 01/02/24 03/13/24 oral powder packet sodium bicarbonate-sodium chloride 1 pac
[2024-03-28 20:16] VITALS: BP 147/86; PULSE 81; RESP 15; O2SAT 94
[2024-03-28 20:17] VITALS: PULSE 81; RESP 20; O2SAT 94
[2024-03-28 22:15] VITALS: BP 148/85; PULSE 89; RESP 18; O2SAT 98
[2024-03-28 23:48] VITALS: BP 148/85; PULSE 94; RESP 21; O2SAT 95
[2024-03-29] VITALS: BP 146/78; PULSE 92; RESP 22; O2SAT 97
[2024-03-29 00:58] LABS: Appearance Urine Clear (Clear); Bacteria Urine None Seen /hpf; Bilirubin Urine Negative (Negative); Blood Urine 1+ (Negative); Color Urine Yellow (Yellow); Glucose Urine UA 3+ mg/dL (Negative); Ketones Urine Negative (Negative); Leukocyte Esterase Ur 1+ LEU/UL (Negative); Nitrate Urine Negative (Negative); Non Pathogenic Casts 0-2; Protein Urine 2+ mg/dL (Negative); Specific Grav Ur 1.027 (1.001-1.035); Squamous Epithelial Cell Urine None Seen /hpf (Few); WBC Urine 51-100 /hpf (0-3); pH Urine 5.5 (5.0-9.0)
[2024-03-29 01:00] LABS: Add Urine Microscopic? YES
== END 2024-03-29 02:52 ==
PROVIDERS: Student in an Organized Health Care Education/Training Program; Emergency Provider Emergency Medicine
DX: M25.512 Pain in left shoulder (principal); G89.29 Other chronic pain; N39.0 Urinary tract infection, site not specified; I13.0 Hypertensive heart and chronic kidney disease with heart failure and stage 1 through stage 4 chronic kidney disease, or unspecified chronic kidney disease; E11.22 Type 2 diabetes mellitus with diabetic chronic kidney disease; N18.30 Chronic kidney disease, stage 3 unspecified; I50.40 Unspecified combined systolic (congestive) and diastolic (congestive) heart failure; I27.20 Pulmonary hypertension, unspecified; I25.10 Atherosclerotic heart disease of native coronary artery without angina pectoris; I25.5 Ischemic cardiomyopathy; E78.5 Hyperlipidemia, unspecified; E11.39 Type 2 diabetes mellitus with other diabetic ophthalmic complication; H42 Glaucoma in diseases classified elsewhere; G40.909 Epilepsy, unspecified, not intractable, without status epilepticus; D64.9 Anemia, unspecified; N40.0 Benign prostatic hyperplasia without lower urinary tract symptoms; M10.9 Gout, unspecified; Z86.73 Personal history of transient ischemic attack (TIA), and cerebral infarction without residual deficits; Z79.82 Long term (current) use of aspirin; Z79.4 Long term (current) use of insulin; Z79.85 Long-term (current) use of injectable non-insulin antidiabetic drugs; Z79.84 Long term (current) use of oral hypoglycemic drugs; Z79.899 Other long term (current) drug therapy; R09.89 Other specified symptoms and signs involving the circulatory and respiratory systems; I45.9 Conduction disorder, unspecified; I51.7 Cardiomegaly; R94.31 Abnormal electrocardiogram [ECG] [EKG]; M19.012 Primary osteoarthritis, left shoulder; M75.92 Shoulder lesion, unspecified, left shoulder
CPT/HCPCS: 36415; 71046; 71275; 73030; 73206; 73706; 74174; 80053; 81001; 83690; 84484; 85025; 85610; 85730; 87086; 87088; 93005; 93923; 96365; 99284; J0696; Q9967

== ENCOUNTER 2024-04-21 07:59 | Outpatient (RCR) | payer MEDICARE, MEDICAID, SELFPAY ==
[2024-03-13 09:43] VITALS: BMI 28.9
== END 2024-06-11 23:59 | disposition home or self-care (01) ==
LOC: ANHWOC 07:59
PROVIDERS: Visit Provider Family Medicine
DX: L97.829 Non-pressure chronic ulcer of other part of left lower leg with unspecified severity (principal)
CPT/HCPCS: 99213; A9270; G0463

== ENCOUNTER 2024-08-17 14:56 | Observation (INO) | payer MEDICARE, MEDICAID, SELFPAY ==
[2024-08-17] VITALS (8 sets, daily range): BP systolic 118–136; BP diastolic 68–83; PULSE 66–71; RESP 16–24; TEMP 36.5–36.7; O2SAT 94–97
--- NOTE | ~2024-08-17 | XR_ITS ---
EXAMINATION: XR chest 1V portable Exam Date/Time: 08/17/2024 16:00 CDT HISTORY: SEIZURE Comparison: 03/28/2024. RESULT: Lines, tubes, and devices: Mediastinal surgical clips. Intact sternotomy wires. Lungs and pleura: Lordotic positioning and leftward rotation. Low volumes with crowding. Mild diffus e interstitial opacities. Streaky left basilar atelectasis/scar. Mild left costophrenic angle bluntin g. Cardiomediastinal silhouette: Stable. Other: No acute osseous or upper abdominal finding. IMPRESSION: Mild interstitial edema. 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 Reviewed, dictated and finalized at location K. IMPRESSION: Mild interstitial edema. Left basilar atelectasis/scar with a small left pleura l effusion versus chronic pleural blunting.
--- NOTE | ~2024-08-17 | CT_ITS ---
EXAMINATION: CT brain wo con DATE: 08/18/2024 14:21 INDICATION: Right-sided cerebral vascular accident. TECHNIQUE: Computed tomography (CT) of the head was performed without intravenous contrast. The mA wa s adjusted according to patient size. Iterative reconstruction technique was employed. The dose-lengt h product was 681.00 mGy-cm. COMPARISON: Head CT 02/04/2023 FINDINGS: There is an old infarct involving the right temporal, parietal, and occipital lobes, right insula, and right thalamus. There is no intracranial hemorrhage, acute infarction, or abnormal intrac ranial mass lesion. There is ex vacuo dilatation of right lateral ventricle. There is mild mucosal th ickening in the ethmoid sinuses. The orbits are normal. The mastoid air cells are normal. IMPRESSION: 1. Old infarct involving the right temporal, parietal, and occipital lobes, right insula, and right t halamus. Reviewed, dictated and finalized at location A. IMPRESSION: 1. Old infarct involving the right temporal, parietal, and occipital lobes, rig ht insula, and right thalamus.
--- NOTE | ~2024-08-17 | US_ITS ---
EXAMINATION: US carotid duplex BI DATE: 08/18/2024 15:46 INDICATION: Right cerebral infarct. Facial weakness. Hemiparesis. TECHNIQUE: Grayscale, color Doppler, and pulsed Doppler images of the cervical carotid arteries were obtained. The degree of vessel stenosis is placed in one of the following categories: normal, <50%, 5 0-69%, >=70% but less than near-occlusion, near-occlusion, or total occlusion. Note that percent sten osis relative to normal distal artery lumen diameter is indirectly measured from velocity measurement s as described by Kale, et al. Radiology 2003; [id number]:[id number]. COMPARISON: CTA 01/30/23 FINDINGS: RIGHT: The right common carotid artery (CCA) peak systolic velocity (PSV) is 44 cm/s. The right internal car otid artery (ICA) PSV is 62 cm/s. The right ICA end-diastolic velocity (EDV) is 15 cm/s. The right IC A/CCA PSV ratio is 1.4. Grayscale and color Doppler images yield an estimate of <50% diameter reducti on from plaque in the ICA. The right vertebral artery is not well visualized. LEFT: The left CCA PSV is 51 cm/s. The left ICA PSV is 65 cm/s. The left ICA EDV is 18 cm/s. The left ICA/C CA PSV ratio is 1.3. Grayscale and color Doppler images yield an estimate of <50% diameter reduction from plaque in the ICA. The left vertebral artery is not well visualized. IMPRESSION: 1. <50% stenosis in the right internal carotid artery. 2. <50% stenosis in the left internal carotid artery. 3. Vertebral arteries not well visualized. Reviewed, dictated and finalized at location A.
--- NOTE | 2024-08-17 15:36 | ED.GENADULT ---
HPI - General Adult General Chief complaint: Seizure Stated complaint: Seizure Time Seen by Provider: 08/17/24 15:35 Source: patient and EMS Mode of arrival: EMS Limitations: no limitations History of Present Illness HPI narrative: 64 YEARS OLD WHITE MALE CAME FROM [facility] AFTER HAVING 3 EPISODES OF SEIZURE. PATIENT IS TELLING ME THAT USUALLY HIS SEIZURE TRIGGERED BY STRONG SHINING LIGHT IN THE LUNCH AREA. HE DENIES ANY FEVER, CHILLS, NAUSEA, VOMITING, DIARRHEA, CHEST PAIN, SHORTNESS OF BREATH, BACK PAIN OR HEADACHE. HISTORY OF SEIZURE CURRENTLY ON [facility]. HIS NEUROLOGIST PROBABLY AT [facility] Related Data Home Medications Medication Instructions Recorded Confirmed aspirin 81 mg tablet,delayed 81 mg PO DAILY heart disease 03/30/21 03/13/24 release atorvastatin 40 mg tablet 40 mg PO HS high cholesterol 03/30/21 03/13/24 biotin 5,000 mcg disintegrating 5,000 mcg PO DAILY supplement 03/30/21 03/13/24 tablet levothyroxine 137 mcg tablet 137 mcg PO QAM hypothyroidism 03/30/21 03/13/24 tamsulosin 0.4 mg capsule 0.8 mg PO HS benign prostatic 03/30/21 03/13/24 hyperplasia ascorbic acid (vitamin C) 500 mg 500 mg PO BID wound healing 01/18/22 03/13/24 capsule duloxetine 60 mg capsule,delayed 60 mg PO DAILY depression 01/18/22 03/13/24 release baclofen 5 mg tablet 10 mg PO TID pain 06/09/22 03/13/24 dulaglutide 0.75 mg/0.5 mL 0.75 mg subcut WEEKLY 06/09/22 03/13/24 subcutaneous pen injector (Trulicity) empagliflozin 25 mg tablet 25 mg PO DAILY type 2 diabetes 06/09/22 03/13/24 (Jardiance) ferrous gluconate 324 mg (38 mg 324 mg PO DAILY supplementation 06/09/22 03/13/24 iron) tablet ipratropium 0.5 mg-albuterol 3 mg 3 ml inhalation Q6H PRN Shortness 06/09/22 03/13/24 (2.5 mg base)/3 mL nebulization Of Breath soln latanoprost 0.005 % eye drops 1 drp EACH EYE HS glaucoma 06/09/22 03/13/24 multivitamin with minerals (Daily 1 tablet PO DAILY wound healing ##0 06/09/22 03/13/24 Multivitamin-Minerals tablet) brimonidine 0.2 % eye drops 1 drp EACH EYE BID glaucoma 12/29/22 03/13/24 diclofenac sodium 1 % topical gel 1 ea topical Q6H PRN Mild Pain 12/29/22 03/13/24 (Scale Score 1-4) Nystatin Powder 1 applic topical Q12H PRN Rash 03/06/23 03/13/24 acetaminophen 500 mg tablet 1,000 mg PO Q8H PRN Pain (Scale 03/06/23 03/13/24 (Acetaminophen Extra Strength) Score 4-6) azelastine 137 mcg (0.1 %) nasal 1 spray intranasal Q12H allergic 03/06/23 03/13/24 spray rhinitis magnesium oxide 400 mg (241.3 mg 400 mg PO DAILY hypomagnesemia 03/06/23 03/13/24 magnesium) tablet peg [id number] 1 1 drp EACH EYE BID dry eyes 03/06/23 03/13/24 %-0.2 %-0.2 % eye drops (Artificial Tears ([id number])) glucagon 1 mg injection kit 1 mg subcut PRN PRN Hypoglycemia 04/17/23 03/13/24 insulin glargine 100 unit/mL (3 10 unit subcut QPM 04/17/23 03/13/24 mL) subcutaneous pen (Lantus Solostar U-100 Insulin) insulin lispro 100 unit/mL 3 unit subcut AC 04/17/23 03/13/24 subcutaneous pen (Humalog KwikPen (U-100) Insulin) omeprazole 20 mg capsule,delayed 20 mg PO DAILY 04/17/23 03/13/24 release Zinc-50 50 mg PO HS 05/15/23 03/13/24 magnesium citrate 296 ml PO PRN PRN Constipation 05/15/23 03/13/24 metronidazole 1 applic topical PRN PRN Rash 05/15/23 03/13/24 cetirizine 10 mg tablet 10 mg PO DAILY PRN Allergy Symptoms 06/14/23 03/13/24 miconazole nitrate 2 % topical 1 applic topical HS 06/14/23 03/13/24 cream bisacodyl 10 mg rectal suppository 10 mg RECTAL DAILY PRN Constipation 01/02/24 03/13/24 carboxymethylcellulose 0.5 1 drp EACH EYE BID 01/02/24 03/13/24 %-glycerin 0.9 % eye drops insulin lispro 100 unit/mL 1 sliding scale dose subcut 01/02/24 03/13/24 subcutaneous pen (Humalog KwikPen USEASDIRECTD (U-100) Insulin) magnesium hydroxide 400 mg/5 mL 30 ml PO HS PRN Constipation 01/02/24 03/13/24 oral suspension (Milk of Magnesia) metoprolol succinate 25 mg 25 mg PO DAILY 02
[2024-08-17] MEDS: levETIRAcetam 1000MG/NACL100ML 1,000 MG/100 ML BAG 400 MG IVPB (15:47)
[2024-08-17 16:48] LABS: Basophils Percent Auto 0.5 % (0.2-1.2); Eosinophils Absolute Auto 0.3 K/mm3 (0-0.3); Eosinophils Percent Auto 3.4 % (0-4.4); Hematocrit 43.3 % (42.0-52.0); Hemoglobin 14.1 g/dL (14.0-18.0); Immature Granulocyte Absolute 0.07 K/mm3 (0.00-0.031); Immature Granulocyte Percent A 0.9 % (0-0.5); Immature Platelet Fraction Pct 4.9 % (0.9-11.2); Lymphocytes Absolute Auto 1.03 K/mm3 (0.9-3.2); Lymphocytes Percent Auto 13.5 % (18.3-44.2); Mean Corpuscular HGB Conc 32.6 g/dl (32-36); Mean Corpuscular Hemoglobin 30.9 pg (26-34); Mean Platelet Volume 11.3 fl (7.4-10.4); Monocytes Absolute Auto 0.9 K/mm3 (0.1-0.6); Monocytes Percent Auto 11.3 % (2.6-8.5); Neutrophils Absolute Auto 5.4 K/mm3 (1.3-6.7); Neutrophils Percent Auto 70.4 % (45.5-73.1); Platelet Count Result 109 k/mm3 (150-375); Red Blood Count 4.56 M/mm3 (4.6-6.20); Red Cell Distribution Width 15.8 % (11.5-14.5); White Blood Count 7.6 K/mm3 (4.5-10.0)
[2024-08-17 16:53] LABS: Add Urine Microscopic? YES; Appearance Urine Cloudy (Clear); Bacteria Urine None Seen /hpf; Bilirubin Urine Negative (Negative); Blood Urine Non-Hemolyzed Trace (Negative); Color Urine Yellow (Yellow); Glucose Urine UA 3+ mg/dL (Negative); Ketones Urine Negative (Negative); Leukocyte Esterase Ur 2+ LEU/UL (Negative); Nitrate Urine Negative (Negative); Non Pathogenic Casts 0-2; Protein Urine 1+ mg/dL (Negative); Specific Grav Ur 1.015 (1.001-1.035); Squamous Epithelial Cell Urine None Seen /hpf (Few); WBC Urine >100 /hpf (0-3)
[2024-08-17 17:05] LABS: Alanine Aminotransferase 17 U/L (6-50); Albumin Level 4.1 g/dL (3.5-5.1); Alkaline Phosphatase 167 U/L (38-126); Anion Gap 9 mmol/L (4-12); Aspartate Amino Transferase 22 U/L (17-59); Bilirubin,Total 0.6 mg/dL (0.2-1.3); Blood Urea Nitrogen 36 mg/dL (9-20); Calcium 8.7 mg/dL (8.4-10.2); Carbon Dioxide 29 mmol/L (22-30); Chloride 101 mmol/L (98-107); Estimated Glomerular Filt Rate 51; Glucose 159 mg/dL (65-110); Potassium 4.1 mmol/L (3.4-5.0); Sodium 139 mmol/L (137-145)
[2024-08-17] MEDS: ACETAMINOPHEN 325 MG TABLET 650 MG PO (18:38)
[2024-08-17] MEDS: SODIUM CHLORIDE 0.9% IV 1,000 ML 125 ML IV CONT (18:41)
--- NOTE | 2024-08-17 20:43 | PM.IMHP ---
H&P: HPI History of Present Illness Date/Time: 08/17/24 20:43 Chief Complaint: Sent in from skilled nursing for 3 seizures Narrative: 64-year-old male with past medical history mild CVA, seizure disorder, combined systolic and diastolic heart failure with EF of 20-25%, grade 2 diastolic dysfunction, severe pulmonary hypertension, essential hypertension and insulin-dependent diabetes mellitus among other comorbidities who presented to ER from [facility] via EMS with reported 3 seizures. The patient although alert orient x4 is not providing best details regarding his possible seizures today. He stated that he usually gets seizures triggered by bright lights or stimulus. He will off taking have issues after bright lights in the dining room at the skilled nursing due to flashing of car lytes through the window. He did not appreciate having much of this stimuli today. However he reports he went back to his room and was assisted to the toilet by skilled nursing staff. Shortly thereafter he began having shaking and tremors of his right side. He does not know how long this lasted. He did feel confused at the time. He then reports that he had 2 more episodes down in the ER. During his brief mention of patient having to spells of possible seizure in the ER lasting 15-30 seconds. The patient was awake alert oriented x4 during and activity. However there is no documentation of what the possible seizure activity look like. The patient did not have any episodes of tongue biting, or urinary incontinence. (however the time of my evaluation the patient denied urinary continence but while I was evaluating the patient his depends were wet.) His neurologist is at [facility]. Unfortunately there is no EMS report available for my review for further details. Reports that he has been taking his seizure medications as directed. He had an EEG in December 2022 that demonstrated epileptiform activity originating around the left anterior temporal region confirming area to confirm focal onset seizures. The patient does report chronic urinary frequency with intermittent dysuria for several months. He has had multiple UAs and urine culture sent at the skilled nursing which been negative for infection. He does report weak urine stream but feels like he empties his bladder completely. He is scheduled to have a cystoscopy at [facility] on to further evaluate. He has not had any fevers, chills or hematuria. He does not have a white count. Patient's UA did demonstrate 3+ glucose 2+ esterase 3-5 RBCs and greater than 100 wbc's with no bacteria or squamous cells. Patient was given 1 dose of Rocephin in the ER. Review of Systems Review of Systems: 12 systems were reviewed with pertinent positives and negatives per HPI. Except as documented in the HPI, all other systems were reviewed and are negative. [facility] Past Medical History Medical History (Updated 08/18/24 @ 01:56 by Esperanza Hutton, DO) Benign prostatic hyperplasia Cerebrovascular accident Chronic anemia (01/2019) Post CABG right parietal infarction resultant hemiplegia. Chronic kidney disease, stage 3 Combined systolic and diastolic congestive heart failure EF 20-25% on echocardiogram December 2023 with grade 2 diastolic dysfunction, severe pulmonary hypertension with RVSP of 81, moderate aortic stenosis with peak velocity of to 4 mean gradient of 9 valve area 1.4 consistent with low-flow low gradient aortic stenosis Coronary artery disease Status post three-vessel bypass and left ventricular aneurysm repair in February 2019 at [facility]. 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 Myocardial infarction (01/2019) Late presentation [place] found to have severe three-vessel disease, transferred to [facility] for emergent bypass
[2024-08-17] MEDS: ATORVASTATIN 40 MG TABLET PO (21:43)
[2024-08-17] MEDS: MELATONIN 5 MG TABLET PO (21:43)
[2024-08-17] MEDS: BRIMONIDINE TARTRATE 0.2% OP SOLN 5 ML BTL 1 DROP EACH EYE (21:43)
[2024-08-17] MEDS: TAMSULOSIN HCL 0.4 MG CAPSULE 0.8 MG PO (21:43)
[2024-08-17] MEDS: PREGABALIN (*CRX) 75 MG CAPSULE PO (21:43)
[2024-08-17] MEDS: INSULIN ASPART (*BKC) 100 UNITS/ML SUB-Q (21:44)
[2024-08-17 21:52] LABS: Glucose Point of Care 221 mg/dl (65-105)
[2024-08-17] MEDS: LATANOPROST 0.005% OP SOLN 2.5 ML BTL 1 DROP EACH EYE (22:19)
[2024-08-17] MEDS: AZELASTINE HCL NASAL 0.1% 137 MCG/SPR 30 ML BTL 1 SPRAY NASAL (22:19)
[2024-08-18] VITALS (8 sets, daily range): BP systolic 102–124; BP diastolic 64–74; PULSE 59–66; RESP 18–20; TEMP 36.2–36.5; O2SAT 90–98
[2024-08-18] MEDS: LEVOTHYROXINE SODIUM 25 MCG TABLET PO (06:14)
[2024-08-18] MEDS: LEVOTHYROXINE SODIUM 112 MCG TABLET PO (06:14)
[2024-08-18] MEDS: BACLOFEN 10 MG TABLET PO ×3 (07:59→17:34)
[2024-08-18] MEDS: FERROUS GLUCONATE 324 MG TABLET PO (07:59)
[2024-08-18] MEDS: LORATADINE 10 MG TABLET PO (07:59)
[2024-08-18] MEDS: PRIMIDONE 50 MG TABLET PO ×3 (07:59→17:34)
[2024-08-18] MEDS: amLODIPine BESYLATE 5 MG TABLET PO (07:59)
[2024-08-18] MEDS: METOPROLOL SUCCINATE EXT REL 25 MG TABCR PO (08:00)
[2024-08-18] MEDS: MAGNESIUM OXIDE 400 MG TABLET PO (08:00)
[2024-08-18] MEDS: EMPAGLIFLOZIN 25 MG TABLET PO (08:00)
[2024-08-18] MEDS: ASCORBIC ACID 500 MG TABLET PO ×2 (08:00→17:34)
[2024-08-18] MEDS: levETIRAcetam 500 MG TABLET PO ×2 (08:00→20:38)
[2024-08-18] MEDS: POTASSIUM CHLORIDE 10 MEQ ER TABLET PO (08:00)
[2024-08-18] MEDS: MULTIVITAMINS THERAPEUTIC TAB (*BKC) 1 TABLET PO (08:00)
[2024-08-18] MEDS: FUROSEMIDE 40 MG TABLET PO ×2 (08:00→17:34)
[2024-08-18] MEDS: PANTOPRAZOLE 40 MG TABLET PO (08:00)
[2024-08-18] MEDS: PREGABALIN (*CRX) 75 MG CAPSULE PO ×2 (08:00→20:39)
[2024-08-18] MEDS: levETIRAcetam 250 MG TABLET PO ×2 (08:00→20:39)
[2024-08-18] MEDS: FEBUXOSTAT 40 MG TABLET PO (08:01)
[2024-08-18] MEDS: AZELASTINE HCL NASAL 0.1% 137 MCG/SPR 30 ML BTL 1 SPRAY NASAL ×2 (08:02→20:52)
[2024-08-18] MEDS: ASPIRIN 81 MG ENTERIC TABLET PO (08:02)
[2024-08-18] MEDS: ARTIFICIAL TEARS OPHTH SOLN 15 ML BOTTLE 1 DROP EACH EYE ×2 (08:02→17:34)
[2024-08-18] MEDS: BRIMONIDINE TARTRATE 0.2% OP SOLN 5 ML BTL 1 DROP EACH EYE ×2 (08:02→20:52)
[2024-08-18] MEDS: DULoxetine HCL 60 MG CAPSULE.DR PO (08:03)
[2024-08-18] MEDS: ENOXAPARIN 40 MG/0.4 ML SYRINGE SUB-Q (08:06)
[2024-08-18 08:09] LABS: Glucose Point of Care 125 mg/dl (65-105)
[2024-08-18] MEDS: INSULIN ASPART (*BKC) 100 UNITS/ML SUB-Q ×5 (08:12→22:19)
--- NOTE | 2024-08-18 10:43 | PM.IMPN ---
Progress Note: A&P Assessment and Plan (1) Breakthrough seizure: Code(s): G40.919 - Epilepsy, unspecified, intractable, without status epilepticus Status: Acute Assessment and Plan: Patient had reported breakthrough seizure. Patient received 1 g Keppra load in the ER. Will increase patient's home Keppra to 750 mg p.o. q.[address] consult for Neurology. Patient has been placed on seizure precautions. (2) Abnormal finding on urinalysis: Code(s): R82.90 - Unspecified abnormal findings in urine Status: Acute Assessment and Plan: The patient's urinalysis does demonstrate 2+ leukocyte esterase and greater than 100 wbc's patient does not have any evidence bacteria or nitrates in his urine. - longstanding intermittent dysuria but has had multiple negative urine cultures in the past. He has not had a fever and has a normal white count. Patient received 1 dose of Rocephin in the ER for possible UTI Will await urine culture but will not continue antibiotics at this time. The patient has outpatient appointment for cystoscopy and evaluation for BPH at [facility] on the . (3) Chronic kidney disease, stage 3: Qualifiers: Chronic kidney disease stage 3 subtype: stage 3a (GFR 45-59) Qualified Code(s): N18.31 - Chronic kidney disease, stage 3a Code(s): N18.30 - Chronic kidney disease, stage 3 unspecified Status: Acute (4) Insulin dependent diabetes mellitus: Status: Chronic Assessment and Plan: - continue patient's home Lantus but will decrease dose by 2 units. - 8 units Will continue patient's home bolus mealtime insulin of 3 units and p.r.n. sliding scale - AccuCheck ac/hs hypoglycemia protocol has also been ordered. Plan Patient does have history of combined systolic diastolic heart failure, right-sided heart failure and severe pulmonary hypertension. No evidence of exacerbation of the patient's chronic heart failure at this time. -resume patient's home Norvasc and Lasix. The patient's symptoms could be consistent with alteration in status due to cardiac arrhythmia but this seems less likely given the localized nature of the patient's reported symptoms to the right side of his body. Patient has been admitted as observation status. Time Spent With Patient Time with patient: Greater than 35 minutes Subjective Date/time seen: 08/18/24 10:43 Interval history: Chief Complaint: [facility] in from [facility] for [facility] seizures Narrative retrieved form H/P: 64-year-old male with past medical history mild CVA, seizure disorder, combined systolic and diastolic heart failure with EF of 20-25%, grade 2 diastolic dysfunction, severe pulmonary hypertension, essential hypertension and insulin-dependent diabetes mellitus among other comorbidities who presented to ER from [facility] via EMS with reported 3 seizures. The patient although alert orient x4 is not providing best details regarding his possible seizures today. He stated that he usually gets seizures triggered by bright lights or stimulus. He will off taking have issues after bright lights in the [facility] room at the [facility] due to flashing of car lytes through the window. He did not appreciate having much of this stimuli today. However he reports he went back to his room and was assisted to the toilet by [facility] staff. Shortly thereafter he began having shaking and tremors of his right side. He does not know how long this lasted. He did feel confused at the time. He then reports that he had 2 more episodes down in the ER. During his brief mention of patient having to spells of possible seizure in the ER lasting 15-30 seconds. The patient was awake alert oriented x4 during and activity. However there is no documentation of what the possible seizure activity look like. The patient did not have any episodes of tongue biting, or urinary incontinence. (however the time
[2024-08-18 11:45] LABS: Glucose Point of Care 179 mg/dl (65-105)
--- NOTE | 2024-08-18 12:06 | WPDNEURCNPN ---
Assessment and Plan Assessment and plan (1) Seizure: Code(s): R56.9 - Unspecified convulsions Status: Acute Assessment and Plan: Patient has had 5 or 6 seizures in the last 1 year and requires further control. Also suggest increase the dose of Keppra to 750 mg twice a day. It was noted that for some reason he is also on Lyrica or pregabalin 150 mg twice a day in addition Mysoline 50 mg 3 times a day. Since he just had a seizure is probably not appropriate to start reducing his medications but I would suggest consideration of the medications stiff your drugs. He does not appear to have evidence for benign essential tremor and hence Mysoline can be gradually reduced. He does have history of neck pain and surgery on cervical spine and he may be on pregabalin for that reason. The dose of Keppra may be increased further if he has any seizures [place] on 750 mg twice a day. He should be followed up by Neurology seizures and strokes. He told that he follows of somebody in [facility]. (2) History of CVA (cerebrovascular accident): Code(s): Z86.73 - Personal history of transient ischemic attack (TIA), and cerebral infarction without residual deficits Status: Chronic (3) CKD (chronic kidney disease) stage 3, GFR 30-59 ml/min: Code(s): N18.30 - Chronic kidney disease, stage 3 unspecified Status: Chronic (4) Insulin dependent diabetes mellitus: Status: Chronic (5) Coronary artery disease: Code(s): I25.10 - Atherosclerotic heart disease of [place] coronary artery without angina pectoris Status: Chronic Plan I agree with increasing the dose of Keppra to 750 mg twice a day and may continue with the pregabalin and Mysoline at previous doses. Given the history of previous strokes suggest a CT scan of brain without contrast and a carotid Doppler study and lipid profile. Consult date: 08/18/24 HPI: Bayron Ann is a 64 year old male With history of right CVA with a residual left hemiparesis and seizure disorder, diabetes mellitus, coronary artery bypass grafting, cervical spine surgery, chronic kidney disease admitted to the hospital after having had 3 seizures. Patient states that he has had 2 seizures about 2 weeks ago also. He thinks that he might have had 5 to 6 seizures in the last year. He has been on Keppra 500 mg twice a day. In addition is also on pregabalin 150 mg twice a day and Mysoline 50 mg 3 times a day the reason for this is not entirely clear however it may have been for different reasons since pregabalin is often used for pain and Mysoline for tremor however he denies any history of tremor. He does have some pain issue the neck. When he has seizure-like spells his right hand is the 1 that is tremulous and he states that he is generally aware of what is going on but he cannot help it the spells are short-lived and he has not had any tongue biting or incontinence of urine or injuries. No difficulty speech or swallowing. He has persistent weakness in the left upper and lower limb. He is a [facility] of a [facility]. He is and has a . Review of Systems Review of Systems: All systems reviewed & are unremarkable except as noted in HPI and below PMFSH Past Medical History Medical History Benign prostatic hyperplasia Cerebrovascular accident Chronic anemia (01/2019) Post CABG right parietal infarction resultant hemiplegia. Chronic kidney disease, stage 3 Combined systolic and diastolic congestive heart failure EF 20-25% on echocardiogram December 2023 with grade 2 diastolic dysfunction, severe pulmonary hypertension with RVSP of 81, moderate aortic stenosis with peak velocity of to 4 mean gradient of 9 valve area 1.4 consistent with low-flow low gradient aortic stenosis Coronary artery disease Status post three-vessel bypass and left ventricular aneurysm repair in February 2019 at [facility]. Curr
[2024-08-18 13:24] LABS: Cholesterol 86 mg/dL (0-200); HDL Direct 23 mg/dL; Triglycerides 100 mg/dL (<150)
[2024-08-18 13:35] LABS: LDL Cholesterol Direct 39 mg/dL
[2024-08-18 16:42] LABS: Glucose Point of Care 206 mg/dl (65-105)
[2024-08-18] MEDS: INSULIN GLARGINE (*BKC) 100 UNITS/ML 8 UNITS SUB-Q (19:09)
[2024-08-18] MEDS: TAMSULOSIN HCL 0.4 MG CAPSULE 0.8 MG PO (20:38)
[2024-08-18] MEDS: ATORVASTATIN 40 MG TABLET PO (20:38)
[2024-08-18] MEDS: MELATONIN 5 MG TABLET PO (20:39)
[2024-08-18] MEDS: ACETAMINOPHEN 325 MG TABLET 650 MG PO (20:41)
[2024-08-18] MEDS: LATANOPROST 0.005% OP SOLN 2.5 ML BTL 1 DROP EACH EYE (20:52)
[2024-08-18 21:56] LABS: Glucose Point of Care 227 mg/dl (65-105)
[2024-08-19] VITALS: PULSE 56
[2024-08-19 04:00] VITALS: PULSE 56
[2024-08-19] MEDS: LEVOTHYROXINE SODIUM 25 MCG TABLET PO (05:36)
[2024-08-19] MEDS: LEVOTHYROXINE SODIUM 112 MCG TABLET PO (05:36)
[2024-08-19 06:00] VITALS: BP 158/95; PULSE 60; RESP 18; TEMP 36.3; O2SAT 92
[2024-08-19 08:00] VITALS: PULSE 60; RESP 18; O2SAT 92
[2024-08-19 08:09] LABS: Glucose Point of Care 149 mg/dl (65-105)
[2024-08-19] MEDS: FERROUS GLUCONATE 324 MG TABLET PO (09:23)
[2024-08-19] MEDS: METOPROLOL SUCCINATE EXT REL 25 MG TABCR PO (09:24)
[2024-08-19] MEDS: levETIRAcetam 500 MG TABLET PO (09:24)
[2024-08-19] MEDS: FUROSEMIDE 40 MG TABLET PO (09:24)
[2024-08-19] MEDS: amLODIPine BESYLATE 5 MG TABLET PO (09:24)
[2024-08-19] MEDS: PREGABALIN (*CRX) 75 MG CAPSULE PO (09:24)
[2024-08-19] MEDS: PRIMIDONE 50 MG TABLET PO ×2 (09:24→13:09)
[2024-08-19] MEDS: PANTOPRAZOLE 40 MG TABLET PO (09:24)
[2024-08-19] MEDS: MULTIVITAMINS THERAPEUTIC TAB (*BKC) 1 TABLET PO (09:24)
[2024-08-19] MEDS: ASCORBIC ACID 500 MG TABLET PO (09:24)
[2024-08-19] MEDS: levETIRAcetam 250 MG TABLET PO (09:24)
[2024-08-19] MEDS: ASPIRIN 81 MG ENTERIC TABLET PO (09:24)
[2024-08-19] MEDS: EMPAGLIFLOZIN 25 MG TABLET PO (09:24)
[2024-08-19] MEDS: POTASSIUM CHLORIDE 10 MEQ ER TABLET PO (09:24)
[2024-08-19] MEDS: FEBUXOSTAT 40 MG TABLET PO (09:24)
[2024-08-19] MEDS: BACLOFEN 10 MG TABLET PO ×2 (09:24→13:09)
[2024-08-19] MEDS: LORATADINE 10 MG TABLET PO (09:24)
[2024-08-19] MEDS: DULoxetine HCL 60 MG CAPSULE.DR PO (09:24)
[2024-08-19] MEDS: BRIMONIDINE TARTRATE 0.2% OP SOLN 5 ML BTL 1 DROP EACH EYE (09:25)
[2024-08-19] MEDS: ARTIFICIAL TEARS OPHTH SOLN 15 ML BOTTLE 1 DROP EACH EYE (09:25)
[2024-08-19] MEDS: AZELASTINE HCL NASAL 0.1% 137 MCG/SPR 30 ML BTL 1 SPRAY NASAL (09:25)
[2024-08-19] MEDS: ENOXAPARIN 40 MG/0.4 ML SYRINGE SUB-Q (09:25)
[2024-08-19] MEDS: MAGNESIUM OXIDE 400 MG TABLET PO (09:25)
[2024-08-19] MEDS: INSULIN ASPART (*BKC) 100 UNITS/ML SUB-Q ×3 (09:27→13:09)
[2024-08-19 11:50] LABS: Glucose Point of Care 205 mg/dl (65-105)
[2024-08-19 12:00] VITALS: PULSE 60
--- NOTE | 2024-08-19 13:05 | PM.DS ---
DS: Admitting Diagnosis Discharge Date 08/19/2024 Admitting Diagnosis Breakthrough seizure DS: Discharge Diagnosis Discharge Diagnosis (1) Breakthrough seizure: Code(s): G40.919 - Epilepsy, unspecified, intractable, without status epilepticus Status: Acute (2) Abnormal finding on urinalysis: Code(s): R82.90 - Unspecified abnormal findings in urine Status: Acute (3) Chronic kidney disease, stage 3: Qualifiers: Chronic kidney disease stage 3 subtype: stage 3a (GFR 45-59) Qualified Code(s): N18.31 - Chronic kidney disease, stage 3a Code(s): N18.30 - Chronic kidney disease, stage 3 unspecified Status: Acute (4) Insulin dependent diabetes mellitus: Status: Chronic DS: Summary Hospital Course Reason for hospitalization: Breakthrough seizures Hospital Course: Patient was a 64-year-old male who presented to the emergency department with breakthrough seizure from the detention facility. Patient has a past medical history of CVAs, seizure disorder and heart failure with an EF of 20-25. It was reported patient had 3 breakthrough seizures patient states he is seizures are usually triggered by bright lights and prior to seizure he continue to have flashing car lights to his window. Patient had to Will or seizures in the emergency department lasting anywhere between 15-30 seconds patient was none postictal no urinary incontinence. Patient was admitted for observation overnight with a consult to Neurology it was recommended patient increase his Keppra to 750 mg b.i.d. and to monitor for any further breakthrough seizures he did receive 1000 mg IV Keppra in the emergency department. He had an EEG in December 2022 that demonstrated epileptiform activity originating around the left anterior temporal region confirming area to confirm focal onset seizures. Neurology also recommended patient began gradually reducing his my Mysoline. CT head showed old infarct involving the right temporal partial and occipital lobe, right insula, and right thalamus, carotid less than 50% stenosis bilateral. Patient with overall improvement in no further seizures during admission patient was discharged back to detention facility on increase Keppra to follow-up with his neurologist outpatient. Status at Discharge Functional status at discharge: wheelchair bound Time Spent with Patient Time attestation: Total time spent providing and/or coordinating discharge services: Time spent: Greater than 30 minutes Exam Const: General: comfortable HENMT: Other: Mucous membranes are moist, no oral pharyngeal erythema, crowded posterior oropharynx Eyes: Other: Pupils are equal and reactive, no scleral icterus, no conjunctival pallor Neck: Other: No JVD, large neck circumference, supple Resp: Effort & Inspection: normal respiratory effort Auscultation: clear to auscultation bilaterally Other: Clear to auscultation bilaterally, no increased work of breathing Cardio: Rate: regular rate Other: 2/6 systolic murmur, regular rate, regular rhythm presumed by palpation of pulse, 2+ bilateral radial pedal pulses GI: Other: Obese, soft, nontender, +bowel sounds : Other: Normal circumcised male with depends in place, depends are wet patient Skin: Other: No jaundice, no pallor, no foot wounds Neuro: Other: Alert orient times 4, speech is clear, no obvious facial asymmetry, patient is able to move both extremities equally in can lift is foot from the bed about an inch, no localizing neurologic deficits noted during the course of conversation, extraocular movements intact Extrem: General: normal to inspection Other: no clubbing, cyanosis or edema Psych: Other: Appropriate mood and affect, pleasant and cooperative, judgment and insight intact DS: Data Data Completed and Pending Labs on day of discharge: Labs from last 2
[2024-08-19 14:00] VITALS: BP 96/45; PULSE 77; RESP 18; TEMP 36.2; O2SAT 98
[2024-08-19 16:20] LABS: SARS-CoV-2 RNA PCR Negative (Negative)
[2024-08-19 16:49] LABS: Glucose Point of Care 168 mg/dl (65-105)
== END 2024-08-19 18:06 ==
LOC: ANHED 17:22 → ANH3MEDSUR 19:29
PROVIDERS: Psychiatry & Neurology Neurology; Admitting Provider Family Medicine; Emergency Provider Emergency Medicine; Visit Provider Nurse Practitioner Family
DX: G40.919 Epilepsy, unspecified, intractable, without status epilepticus (principal); R82.90 Unspecified abnormal findings in urine; R35.0 Frequency of micturition; R30.0 Dysuria; N40.0 Benign prostatic hyperplasia without lower urinary tract symptoms; M54.2 Cervicalgia; Z98.1 Arthrodesis status; D64.9 Anemia, unspecified; E11.22 Type 2 diabetes mellitus with diabetic chronic kidney disease; I13.0 Hypertensive heart and chronic kidney disease with heart failure and stage 1 through stage 4 chronic kidney disease, or unspecified chronic kidney disease; N18.31 Chronic kidney disease, stage 3a; I50.42 Chronic combined systolic (congestive) and diastolic (congestive) heart failure; I25.10 Atherosclerotic heart disease of native coronary artery without angina pectoris; E11.40 Type 2 diabetes mellitus with diabetic neuropathy, unspecified; I69.354 Hemiplegia and hemiparesis following cerebral infarction affecting left non-dominant side; F32.9 Major depressive disorder, single episode, unspecified; H40.9 Unspecified glaucoma; M10.9 Gout, unspecified; E03.9 Hypothyroidism, unspecified; I25.5 Ischemic cardiomyopathy; I27.20 Pulmonary hypertension, unspecified; I47.20 Ventricular tachycardia, unspecified; I25.2 Old myocardial infarction; Z11.52 Encounter for screening for COVID-19; Z87.891 Personal history of nicotine dependence; Z95.1 Presence of aortocoronary bypass graft; Z79.01 Long term (current) use of anticoagulants; Z79.82 Long term (current) use of aspirin; Z79.4 Long term (current) use of insulin; Z79.84 Long term (current) use of oral hypoglycemic drugs; Z79.85 Long-term (current) use of injectable non-insulin antidiabetic drugs; Z79.51 Long term (current) use of inhaled steroids; Z79.899 Other long term (current) drug therapy
CPT/HCPCS: 36415; 70450; 71045; 80053; 80061; 81001; 82948; 85025; 85055; 87086; 87635; 93880; 96365; 96367; 96372; 97161; 97166; 97530; 99285; A9270; G0378; J0696; J1650; J1815; J1953; J7030

== ENCOUNTER 2024-09-22 15:43 | Inpatient (IN) | payer MEDICARE, SELFPAY ==
[2024-09-22] VITALS (22 sets, daily range): BP systolic 107–129; BP diastolic 56–74; PULSE 66–79; RESP 13–19; TEMP 36.5–36.7; O2SAT 94–98
--- NOTE | ~2024-09-22 | CT_ITS ---
EXAMINATION: CT brain wo con DATE: 09/22/2024 18:38 INDICATION: Seizure. TECHNIQUE: Computed tomography (CT) of the head was performed without intravenous contrast. The mA wa s adjusted according to patient size. Iterative reconstruction technique was employed. The dose-lengt h product was 756.67 mGy-cm. COMPARISON: Head CT 08/18/2024 FINDINGS: There is an old infarct involving the right temporal, parietal, and occipital lobes, right insula, and right thalamus. There is no intracranial hemorrhage, acute infarction, or abnormal intrac ranial mass lesion. There is ex vacuo dilatation of right lateral ventricle. The orbits are normal. T here is mild mucosal thickening in the paranasal sinuses. The mastoid air cells are normal. IMPRESSION: 1. Old infarct involving the right temporal, parietal, and occipital lobes, right insula, and right t halamus. Reviewed, dictated and finalized at location A. CAL PRACTICE MANAGER IMPRESSION: 1. Old infarct involving the right temporal, parietal, and occipital lobes, rig ht insula, and right thalamus.
--- NOTE | ~2024-09-22 | XR_ITS ---
EXAMINATION: XR chest 1V portable DATE: 09/22/2024 18:18 INDICATION: Seizure. TECHNIQUE: A single frontal view of the chest was obtained. COMPARISON: Chest single view 08/17/2024, chest CT 03/28/2024 FINDINGS: There are airspace opacities in left lower lung zone. There is a diffuse interstitial patte rn in the lungs, consistent with mild pulmonary edema. No pleural effusion or pneumothorax. Cardiomeg tayler is noted. Median sternotomy wires and mediastinal surgical clips are seen, likely from prior kobe nary artery bypass grafting. IMPRESSION: 1. Stable airspace opacities in left lower lung zone, consistent with atelectasis versus pneumonia. 2. Mild pulmonary edema. 3. Cardiomegaly. Reviewed, dictated and finalized at location A. OR GIS ANALYST IMPRESSION: 1. Stable airspace opacities in left lower lung zone, consistent with atelectas is versus pneumonia. 2. Mild pulmonary edema. 3. Cardiomegaly.
--- NOTE | 2024-09-22 18:09 | ECG_ITS ---
Test Date: 2024-09-22 18:22:48 Measurements Intervals [place] Rate: 68 P: 60 MI: 203 QRS: -31 QRSD: 137 T: 111 QT: 453 QTc: 483 Interpretive Statements SINUS RHYTHM LEFT AXIS DEVIATION INTRAVENTRICULAR CONDUCTION DELAY POOR R WAVE PROGRESSION, CONSIDER ANTEROLATERAL INFARCT INFERIOR INFARCT, AGE INDETERMINATE ST-T WAVE ABNORMALITY IN HIGH LATERAL LEADS- CONSIDER ISCHEMIA BASELINE WANDER- II, III ABNORMAL ECG No previous ECG available for comparison Electronically Signed On 09-22-2024 18:56:11 PAPER MACHINE BACK TENDER by Valentín James D.O.
[2024-09-22] MEDS: levETIRAcetam 1500MG/NACL100ML 1,500 MG/100 ML BAG 400 MG IVPB (18:19)
[2024-09-22 18:28] LABS: Basophils Absolute Auto 0.1 K/mm3 (0.0-0.1); Basophils Percent Auto 0.9 % (0.2-1.2); Eosinophils Absolute Auto 0.3 K/mm3 (0-0.3); Eosinophils Percent Auto 3.1 % (0-4.4); Hematocrit 46.2 % (42.0-52.0); Hemoglobin 15.1 g/dL (14.0-18.0); Immature Granulocyte Absolute 0.11 K/mm3 (0.00-0.031); Immature Granulocyte Percent A 1.3 % (0-0.5); Immature Platelet Fraction Pct 4.3 % (0.9-11.2); Lymphocytes Absolute Auto 1.43 K/mm3 (0.9-3.2); Lymphocytes Percent Auto 17.5 % (18.3-44.2); Mean Corpuscular HGB Conc 32.7 g/dl (32-36); Mean Corpuscular Volume 94.9 fl (80-100); Mean Platelet Volume 10.9 fl (7.4-10.4); Monocytes Absolute Auto 0.7 K/mm3 (0.1-0.6); Monocytes Percent Auto 8.8 % (2.6-8.5); Neutrophils Absolute Auto 5.6 K/mm3 (1.3-6.7); Neutrophils Percent Auto 68.4 % (45.5-73.1); Platelet Count Result 125 k/mm3 (150-375); Red Blood Count 4.87 M/mm3 (4.6-6.20); Red Cell Distribution Width 15.7 % (11.5-14.5); White Blood Count 8.2 K/mm3 (4.5-10.0)
[2024-09-22 18:45] LABS: Alanine Aminotransferase 18 U/L (6-50); Albumin Level 4.1 g/dL (3.5-5.1); Alkaline Phosphatase 152 U/L (38-126); Anion Gap 8 mmol/L (4-12); Aspartate Amino Transferase 27 U/L (17-59); Bilirubin,Total 0.6 mg/dL (0.2-1.3); Blood Urea Nitrogen 38 mg/dL (9-20); Carbon Dioxide 29 mmol/L (22-30); Chloride 105 mmol/L (98-107); Estimated CRCL calculation 68 ml/min; Estimated Glomerular Filt Rate > 60; Glucose 130 mg/dL (65-110); Magnesium 2.2 mg/dL (1.6-2.3); Sodium 142 mmol/L (137-145)
[2024-09-22 19:03] LABS: Influenza A QL RT-PCR Negative (Negative); Influenza B QL RT-PCR Negative (Negative); RSV RNA, RT-PCR Negative (Negative); SARS-CoV-2 RNA PCR Negative (Negative)
--- NOTE | 2024-09-22 19:22 | PC.NURSE ---
Assumed care of pt after receiving report from GIAN Grace @[id number]
[2024-09-22 19:46] LABS: Add Urine Microscopic? YES; Appearance Urine Cloudy (Clear); Bacteria Urine None Seen /hpf; Bilirubin Urine Negative (Negative); Blood Urine 2+ (Negative); Color Urine Dark Yellow (Yellow); Glucose Urine UA 3+ mg/dL (Negative); Ketones Urine Negative (Negative); Leukocyte Esterase Ur 2+ LEU/UL (Negative); Need Manual Microscopic Reviewed; Nitrate Urine Positive (Negative); Non Pathogenic Casts 0-2; Protein Urine 2+ mg/dL (Negative); Specific Grav Ur 1.016 (1.001-1.035); Squamous Epithelial Cell Urine None Seen /hpf (Few); WBC Urine >100 /hpf (0-3); pH Urine 5.5 (5.0-9.0)
--- NOTE | 2024-09-22 21:17 | ED_ITS ---
HPI - General Adult General Chief complaint: Seizure Stated complaint: seizure Time Seen by Provider: 09/22/24 18:09 History of Present Illness HPI narrative: This is a 64-year-old male history of seizure disorder presenting for breakthrough seizures. Patient had [facility] the prison. EN route to the hospital he received 2 of Ativan and 5 of Versed which abated his seizures. patient was hypoxic in the ambulance 88% room air placed on 2 L nasal cannula patient is sleepy but arousable. He says he has not missed any of his medication. He has denied any complaints such as fevers chills chest pain difficulty breathing abdominal pain or urinary symptoms. Patient says sometimes he has multiple seizures per month and sometimes he does not have them for month s on end. Related Data Home Medications Medication Instructions Recorded Confirmed aspirin 81 mg tablet,delayed 81 mg PO DAILY heart disease 03/30/21 08/17/24 release atorvastatin 40 mg tablet 40 mg PO HS high cholesterol 03/30/21 08/17/24 biotin 5,000 mcg disintegrating 5,000 mcg PO DAILY supplement 03/30/21 08/17/24 tablet levothyroxine 137 mcg tablet 137 mcg PO QAM hypothyroidism 03/30/21 08/17/24 tamsulosin 0.4 mg capsule 0.8 mg PO HS benign prostatic 03/30/21 08/17/24 hyperplasia ascorbic acid (vitamin C) 500 mg 500 mg PO BID wound healing 01/18/22 08/17/24 capsule duloxetine 60 mg capsule,delayed 60 mg PO DAILY depression 01/18/22 08/17/24 release baclofen 5 mg tablet 10 mg PO TID pain 06/09/22 08/17/24 dulaglutide 0.75 mg/0.5 mL 0.75 mg subcut WEEKLY 06/09/22 08/17/24 subcutaneous pen injector (Trulicity) empagliflozin 25 mg tablet 25 mg PO DAILY type 2 diabetes 06/09/22 08/17/24 (Jardiance) ferrous gluconate 324 mg (38 mg 324 mg PO DAILY supplementation 06/09/22 08/17/24 iron) tablet ipratropium 0.5 mg-albuterol 3 mg 3 ml inhalation Q6H PRN Shortness 06/09/22 08/17/24 (2.5 mg base)/3 mL nebulization Of Breath soln latanoprost 0.005 % eye drops 1 drp EACH EYE HS glaucoma 06/09/22 08/17/24 brimonidine 0.2 % eye drops 1 drp EACH EYE BID glaucoma 12/29/22 08/17/24 diclofenac sodium 1 % topical gel 1 ea topical Q6H PRN Mild Pain 12/29/22 08/17/24 (Scale Score 1-4) Nystatin Powder 1 applic topical Q12H PRN Rash 03/06/23 08/17/24 acetaminophen 500 mg tablet 1,000 mg PO Q8H PRN Pain (Scale 03/06/23 08/17/24 (Acetaminophen Extra Strength) Score 4-6) azelastine 137 mcg (0.1 %) nasal 1 spray intranasal Q12H allergic 03/06/23 08/17/24 spray rhinitis magnesium oxide 400 mg (241.3 mg 400 mg PO DAILY hypomagnesemia 03/06/23 08/17/24 magnesium) tablet peg [id number] 1 1 drp EACH EYE BID dry eyes 03/06/23 08/17/24 %-0.2 %-0.2 % eye drops (Artificial Tears ([id number])) glucagon 1 mg injection kit 1 mg subcut PRN PRN Hypoglycemia 04/17/23 08/17/24 insulin glargine 100 unit/mL (3 10 unit subcut QPM 04/17/23 08/17/24 mL) subcutaneous pen (Lantus Solostar U-100 Insulin) insulin lispro 100 unit/mL 3 unit subcut AC 04/17/23 08/17/24 subcutaneous pen (Humalog KwikPen (U-100) Insulin) omeprazole 20 mg capsule,delayed 20 mg PO DAILY 04/17/23 08/17/24 release magnesium citrate 296 ml PO PRN PRN Constipation 05/15/23 08/17/24 metronidazole 1 applic topical PRN PRN Rash 05/15/23 08/17/24 cetirizine 10 mg tablet 10 mg PO DAILY 06/14/23 08/17/24 miconazole nitrate 2 % topical 1 applic topical HS 06/14/23 08/17/24 cream bisacodyl 10 mg rectal suppository 10 mg RECTAL DAILY PRN Constipation 01/02/24 08/17/24 insulin lispro 100 unit/mL 1 sliding scale dose subcut 01/02/24 08/17/24 subcutaneous pen (Humalog KwikPen USEASDIRECTD (U-100) Insulin) magnesium hydroxide 400 mg/5 mL 30 ml PO HS PRN Constipation 01/02/24 08/17/24 oral suspension (Milk of Magnesia) metoprolol succinate 25 mg 25 mg PO DAILY 01/02/24 08/17/24 tablet,extended release 24 hr (Toprol XL) polyethylene glycol 3350 17 gram 17 g PO DAILY PRN Constipation 01/02/24 08/17/24 oral powder packet potassium chloride 10 mEq 10 meq PO DAILY 02/11/24 08/17/24 tablet,extended release primidone 50 mg tablet 50 mg PO TID 02/11/24 08/17/24 amlodipine 5 mg tablet 5 mg PO DAILY 03/13/24 08/17/24 febuxostat 40 mg tablet (Uloric) 40 mg PO DAILY 03/13/24 08/17/24 loperamide 2 mg capsule 2 mg PO Q12H PRN Diarrhea 03/13/24 08/17/24 carboxymethyl 0.5 %-glycerin 1 1 drp EACH EYE BID 08/17/24 08/17/24 %-polysorb 80 0.5 %-PF eye dropperette (Refresh Optive Advanced (PF)) lidocaine 4 % topical patch 1 patch topical DAILY 08/17/24 08/17/24 (Lidocaine Pain Relief) melatonin 5 mg tablet 5 mg PO HS 08/17/24 08/17/24 multivitamin (Multiple Vitamins 1 tablet PO DAILY 08/17/24 08/17/24 tablet) sodium phosphates 19 gram-7 118 ml RECTAL USEASDIRECTD PRN 08/17/24 08/17/24 gram/118 mL enema (Fleet Enema) Constipation Allergies Allergy/AdvReac Type Severity Reaction Status Date / Time No Known Allergies Allergy Unknown Verified 08/17/24 19:29 FOR[facility]LY [facility] Past Medical History Medical History Benign prostatic hyperplasia Cerebrovascular accident Chronic anemia (01/2019) Post CABG right parietal infarction resultant hemiplegia. 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 Current use of adjunct faculty for medical terminology anticoagulation Depression Glaucoma Gout Hyperlipidemia Hypertension Hypothyroidism Insulin dependent diabetes mellitus Ischemic cardiomyopathy EF was 20 to 25% and May 2023. Myocardial infarction (01/2019) Late presentation DC found to have severe three-vessel disease, transferred to [facility] for emergent bypass with perioperative ventricular fibrillation arrest. Pulmonary hypertension Severe pulmonary hypertension with RVSP of 81 non echo December 2023 RLS (restless legs syndrome) Seizure disorder With epileptiform discharges from the left anterior temporal region on EKG December 2022 consistent with history of focal seizures Ventricular tachycardia Surgical History Surgical History History of cardiac catheterization History of coronary artery bypass graft (~02/2019) Three-vessel bypass and surgical repair of left ventricular aneurysm at [facility]. History of fusion of cervical spine Family History Family History Mother Patient's mother is Hypertension Father Patient's father is Malignant neoplasm of prostate Social History Social History Social History: He reports that he has not been home since approximately 2018 due to difficulties with mobility he has had to stay in the prison since then. 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 Healthcare power of insurance attorney: Blanquita Ann, . Code status: Full code. Smoking packs per day: 1.5 Smoking cigarettes per day: 30.0 Years smoked: 30 Smoking pack-years: 45.00 Smoking status: Former smoker Tobacco type: cigarettes Second hand tobacco smoke exposure: No Alcohol intake: never Substance use: never Substance use type: does not use Do You Feel Safe in your Home?: Yes Lack of Transportation: No Lack of Food: Never True Current Housing: I Have Housing Concerned About Future Housing: No Difficulty Paying Gas/Electric Bills: No Difficulty Paying for Meds: No Currently Unemployed: No Education: High School Diploma/GED Difficulty w/ Childcare or Family Care: No Living arrangements: prison Additional living arrangements comments: . He has resided at [facility] since 2019. 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 Spiritual care concerns: No Exam Narrative: APPEARANCE: No apparent distress. Head: atraumatic. EYES: EOMI, NOSE: Atraumatic NECK: Trachea midline RESPIRATORY: hypoxic, clear to auscultation CARDIOVASCULAR: RRR, no peripheral edema ABDOMINAL: Non-distended soft nontender MUSCULOSKELETAl: No obvious deformities NEURO: Alert. left leg paralysis SKIN:: Warm, dry. Normal color PSYCHIATRIC: Normal affect Course Vital Signs Vital signs: Vital Signs Temperature 97.7 F 09/22/24 15:46 Pulse Rate 74 09/22/24 15:46 Respiratory Rate 18 09/22/24 15:46 Blood Pressure 108/56 L 09/22/24 15:46 Pulse Oximetry 96 09/22/24 15:46 Oxygen Delivery Nasal Cannula 09/22/24 15:46 Oxygen Flow Rate 2 09/22/24 15:46 Temperature 97.7 F 09/22/24 15:46 Pulse Rate 69 09/22/24 19:26 Respiratory Rate 16 09/22/24 19:26 Blood Pressure 110/64 09/22/24 19:26 Pulse Oximetry 98 09/22/24 19:27 Oxygen Delivery Nasal Cannula 09/22/24 19:27 Oxygen Flow Rate 2 09/22/24 19:27 Medical Decision Making [facility] Narrative Medical decision making narrative: -Course: 64-year-old male history of seizures secondary to CVA presenting with breakthrough seizures. Patient received appropriate amount of benzos en route to the hospital and has not had any breakthrough seizure since then. He was given a dose of Keppra. Workup was positive for urinary tract infection. Additionally the patient has been hypoxic at 88% on room air. Chest x-ray shows cardiomegaly and possible left lower lobe pneumonia. Point of care cardiothoracic echo shows reduced ejection fraction, dilated left ventricle and a plethoric ivc w/ no respiratory variation. Will trial the patient on a small dose of Lasix. BNP added. Will also start him on ceftriaxone and azithromycin which will cover the UTI and possible pneumonia. Patient will be admitted the hospital for further management. -DDX includes but is not limited to: breakthrough seizure, UTI, pneumonia, sepsis, dehydration, ICH -Co-morbidities complicating care: seizures, CVA -Social determinants of health: prison resident -Independent interpretation of studies: labs imaging reviewed Independent EKG interpretation: Rhythm [sinus], Rate [68], [place] -[normal], [place] -[normal], QRS [narrow], QTC [normal], T waves -[negative for concerning inversions], ST Segments - [Negative for concerning elevations] Final interpretations: [Normal Sinus Rhythm] -Discussion of Management/Consultants:Dr. Anna -Interventions:Ceftriaxone, Azithro, Keprra 1500mg, lasix 40mg iv. -Shared decision making / Disposition:Admitted. Vital Signs Vital Signs: Vital Signs Temperature 97.7 F 09/22/24 15:46 Pulse Rate 74 09/22/24 15:46 Respiratory Rate 18 09/22/24 15:46 Blood Pressure 108/56 L 09/22/24 15:46 Pulse Oximetry 96 09/22/24 15:46 Oxygen Delivery Nasal Cannula 09/22/24 15:46 Oxygen Flow Rate 2 09/22/24 15:46 Temperature 97.7 F 09/22/24 15:46 Pulse Rate 69 09/22/24 19:26 Respiratory Rate 16 09/22/24 19:26 Blood Pressure 110/64 09/22/24 19:26 Pulse Oximetry 98 09/22/24 19:27 Oxygen Delivery Nasal Cannula 09/22/24 19:27 Oxygen Flow Rate 2 09/22/24 19:27 Lab Data 09/22/24 18:19 09/22/24 18:19 Labs: Lab Results 09/22/24 09/22/24 09/22/24 Range/Units 18:19 18:21 19:05 WBC 8.2 (4.5-10.0) K/mm3 RBC 4.87 (4.6-6.20) M/mm3 Hgb 15.1 (14.0-18.0) g/dL Hct 46.2 (42.0-52.0) % MCV 94.9 (80-100) fl MCH 31.0 (26-34) pg MCHC 32.7 (32-36) g/dl RDW 15.7 H (11.5-14.5) % Plt Count 125 L (150-375) k/mm3 MPV 10.9 H (7.4-10.4) fl Immature Gran % (Auto) 1.3 H (0-0.5) % Neut % (Auto) 68.4 (45.5-73.1) % Lymph % (Auto) 17.5 L (18.3-44.2) % [place] % (Auto) 8.8 H (2.6-8.5) % Eos % (Auto) 3.1 (0-4.4) % Baso % (Auto) 0.9 (0.2-1.2) % Lymph # (Auto) 1.43 (0.9-3.2) K/mm3 [place] # (Auto) 0.7 H (0.1-0.6) K/mm3 Eos # (Auto) 0.3 (0-0.3) K/mm3 Baso # (Auto) 0.1 (0.0-0.1) K/mm3 Abs Immat Gran (auto) 0.11 H (0.00-0.031) K/mm3 Absolute Neuts (auto) 5.6 (1.3-6.7) K/mm3 Absolute Nucleated RBC 0.000 (0.0-0.012) K/mm3 Nucleated RBC % 0.0 (0.0-0.2) % % Immature Plt Fraction 4.3 (0.9-11.2) % Sodium 142 (137-145) mmol/L Potassium 4.0 (3.4-5.0) mmol/L Chloride 105 (98-107) mmol/L Carbon Dioxide 29 (22-30) mmol/L Anion Gap 8 (4-12) mmol/L BUN 38 H (9-20) mg/dL Creatinine 1.20 (0.7-1.3) mg/dL Estim Creat Clear Calc 68 ml/min Estimated GFR > 60 (59 - ) Glucose 130 H (65-110) mg/dL Calcium 9.0 (8.4-10.2) mg/dL Magnesium 2.2 (1.6-2.3) mg/dL Total Bilirubin 0.6 (0.2-1.3) mg/dL AST 27 (17-59) U/L ALT 18 (6-50) U/L Alkaline Phosphatase 152 H (38-126) U/L Total Protein 9.0 H (6.3-8.2) g/dL Albumin 4.1 (3.5-5.1) g/dL Urine Color Dark yellow (Yellow) Urine Appearance Cloudy H (Clear) Urine pH 5.5 (5.0-9.0) Ur Specific [place] 1.016 (1.001-1.035) Urine Protein 2+ H (Negative) mg/dL Urine Glucose (UA) 3+ H (Negative) mg/dL Urine Ketones Negative (Negative) mg/dL Ur Blood (Man) 2+ H (Negative) Urine Nitrate Positive H (Negative) Urine Bilirubin Negative (Negative) Urine Urobilinogen 1.0 (<2.0) mg/dL Add Ur Microanalysis Reviewed Leukocyte Esterase Rfl 2+ H (Negative) BRENDA/UL Urine RBC 3-5 H (0-2) /hpf Urine WBC >100 H (0-3) /hpf Ur Squamous Epith Cells None seen (Few) /hpf Urine Bacteria None seen /hpf Urine Casts 0-2 Influenza A (RT-PCR) Negative (Negative) Influenza B (RT-PCR) Negative (Negative) RSV (RT-PCR) Negative (Negative) SARS-CoV-2 RNA (RT-PCR) Negative (Negative) Discharge Plan Discharge Clinical Impression: Breakthrough seizure, Acute UTI, Hypoxic respiratory failure, CHF (congestive heart failure), PNA (pneumonia) Patient Disposition: Still a Patient Condition: Serious Prescriptions: No Action cetirizine 10 mg tablet 10 mg PO DAILY miconazole nitrate 2 % cream 1 applic topical HS Rx Instructions: apply to groin atorvastatin 40 mg tablet 40 mg PO HS levothyroxine 137 mcg tablet 137 mcg PO QAM aspirin 81 mg Tablet,Delayed Release (Dr/Ec) 81 mg PO DAILY biotin 5,000 mcg Tablet,Disintegrating 5,000 mcg PO DAILY tamsulosin 0.4 mg capsule 0.8 mg PO HS glucagon 1 mg Kit 1 mg subcut PRN PRN (Reason: Hypoglycemia) omeprazole 20 mg Capsule,Delayed Release(Dr/Ec) 20 mg PO DAILY insulin lispro [Humalog KwikPen Insulin] 100 unit/mL Insulin Pen 3 unit SUBCUT AC insulin glargine [Lantus Solostar U-100 Insulin] 100 unit/mL (3 mL) Insulin Pen 10 unit SUBCUT QPM magnesium citrate 296 ml PO PRN PRN (Reason: Constipation) metronidazole cream 1 applic topical PRN PRN (Reason: Rash) Rx Instructions: metronidazole external gel 1% prn for rash on face and neck furosemide 40 mg tablet 40 mg PO BID Qty: 60 0RF Hold Instructions: Hold - resume when okay with the doctor primidone 50 mg tablet 50 mg PO TID potassium chloride 10 mEq tablet extended release 10 meq PO DAILY loperamide 2 mg Capsule 2 mg PO Q12H PRN (Reason: Diarrhea) Rx Instructions: give 1 capsule by mouth every 12 hours as needed for diarrhea. Do not exceed 16mg in any 24 hour period. Notify Provider if symptoms persist after 24 hours amlodipine 5 mg Tablet 5 mg PO DAILY febuxostat [Uloric] 40 mg Tablet 40 mg PO DAILY duloxetine 60 mg capsule,delayed release(DR/EC) 60 mg PO DAILY ascorbic acid (vitamin C) 500 mg Capsule 500 mg PO BID Jardiance 25 mg tablet 25 mg PO DAILY Trulicity 0.75 mg/0.5 mL Pen Injector 0.75 mg SUBCUT WEEKLY Rx Instructions: Wednesdays baclofen 5 mg tablet 10 mg PO TID Rx Instructions: patient takes one of the doses at midnight ferrous gluconate 324 mg (38 mg iron) Tablet 324 mg PO DAILY latanoprost 0.005 % drops 1 drp EACH EYE HS ipratropium-albuterol 0.5 mg-3 mg(2.5 mg base)/3 mL Solution For Nebulization 3 ml INHALATION Q6H PRN (Reason: Shortness Of Breath) brimonidine 0.2 % drops 1 drp EACH EYE BID diclofenac sodium 1 % gel 1 ea TOPICAL Q6H PRN (Reason: Mild Pain (Scale Score 1-4)) Rx Instructions: apply to hips and legs acetaminophen [Acetaminophen Extra Strength] 500 mg Tablet 1,000 mg PO Q8H MDD 3000mg PRN (Reason: Pain (Scale Score 4-6)) azelastine 137 mcg (0.1 %) Aerosol,[place] 1 spray INTRANASAL Q12H Rx Instructions: administer into each nostril Artificial Tears([id number]) 1-0.2-0.2 % Drops 1 drp EACH EYE BID Nystatin Powder 1 applic topical Q12H PRN (Reason: Rash) Rx Instructions: apply nystatin powder to groin topically as needed for fungal rash groin magnesium oxide 400 mg (241.3 mg magnesium) tablet 400 mg PO DAILY bisacodyl 10 mg Suppository 10 mg RECTAL DAILY PRN (Reason: Constipation) Rx Instructions: if no results from MOM insulin lispro [Humalog KwikPen Insulin] 100 unit/mL Insulin Pen 1 sliding scale dose SUBCUT USEASDIRECTD Rx Instructions: sliding scale 151-200 3 201-250 6 251-300 9 301-350 12 351-400 15 If >400, call polyethylene glycol 3350 17 gram Powder In Packet 17 g PO DAILY PRN (Reason: Constipation) magnesium hydroxide [Milk of Magnesia] 400 mg/5 mL Suspension 30 ml PO HS PRN (Reason: Constipation) Rx Instructions: if no BM in 3 days metoprolol succinate [Toprol XL] 25 mg tablet extended release 24 hr 25 mg PO DAILY triamcinolone acetonide 0.1 % Cream 1 applic TOPICAL BID PRN (Reason: dermatitis) Qty: 15 0RF Rx Instructions: apply to face and neck redness topically two times a day for dermatitis multivitamin [Multiple Vitamins] Tablet 1 tablet PO DAILY lidocaine [Lidocaine Pain Relief] 4 % Adhesive Patch,Medicated 1 patch TOPICAL DAILY Rx Instructions: apply to left shoulder Fleet Enema 19-7 gram/118 mL Enema 118 ml RECTAL USEASDIRECTD PRN (Reason: Constipation) Rx Instructions: insert one application rectally as needed for constipation if no results 1 day after suppository melatonin 5 mg Tablet 5 mg PO HS Refresh Optive Advanced (PF) 0.5-1-0.5 % Dropperette 1 drp EACH EYE BID levetiracetam [Keppra] 500 mg Tablet 500 mg PO Q12HR Qty: 30 0RF levetiracetam 250 mg Tablet 250 mg PO Q12HR Qty: 30 0RF tramadol 50 mg tablet 100 mg PO Q8H PRN (Reason: pain) Qty: 90 0RF pregabalin 75 mg capsule 75 mg PO BID Qty: 60 1RF Follow-up/Referrals: PHYSICIAN,SALES AUDIT CLERK [Primary Care Provider] -
--- NOTE | 2024-09-22 21:45 | PM.IMHP ---
H&P: HPI History of Present Illness Date/Time: 09/22/24 21:45 Chief Complaint: Seizure Narrative: This is a 64-year-old male with past medical history significant for stroke, left-sided hemiparesis, coronary artery disease, insulin-dependent diabetes mellitus, peripheral neuropathy, seizure disorder, chronic kidney disease, combined systolic and diastolic heart failure, gout, hypertension, restless leg syndrome. patient is a [facility] resident he was brought to the emergency room after having several seizures episodes patient had a recent admission in August for similar problem in which his Keppra was increased. Patient is unable to provide much history however he knows that he had seizures he knows he is at [facility]. Preliminary workup was significant for urine analysis with over 100 WBCs per high-power field, a chest x-ray showed new airspace opacity of the left lower lung. Patient has been admitted for further evaluation management and treatment EXAMINATION: XR chest 1V portable DATE: 09/22/2024 18:18 INDICATION: Seizure. TECHNIQUE: A single frontal view of the chest was obtained. COMPARISON: Chest single view 08/17/2024, chest CT 03/28/2024 FINDINGS: There are airspace opacities in left lower lung zone. There is a diffuse interstitial pattern in the lungs, consistent with mild pulmonary edema. No pleural effusion or pneumothorax. Cardiomegaly is noted. Median sternotomy wires and mediastinal surgical clips are seen, likely from prior coronary artery bypass grafting. IMPRESSION: 1. Stable airspace opacities in left lower lung zone, consistent with atelectasis versus pneumonia. 2. Mild pulmonary edema. 3. Cardiomegaly. Review of Systems Review of Systems: ROS unobtainable: Yes unobtainable due to mental status ( postictal) [facility] Past Medical History Medical History Benign prostatic hyperplasia Cerebrovascular accident Chronic anemia (01/2019) Post CABG right parietal infarction resultant hemiplegia. Chronic kidney disease, stage 3 Combined systolic and diastolic congestive heart failure EF 20-25% on echocardiogram December 2023 with grade 2 diastolic dysfunction, severe pulmonary hypertension with RVSP of 81, moderate aortic stenosis with peak velocity of to 4 mean gradient of 9 valve area 1.4 consistent with low-flow low gradient aortic stenosis Coronary artery disease Status post three-vessel bypass and left ventricular aneurysm repair in February 2019 at [facility]. Current use of retirement anticoagulation Depression Glaucoma Gout Hyperlipidemia Hypertension Hypothyroidism Insulin dependent diabetes mellitus Ischemic cardiomyopathy EF was 20 to 25% and May 2023. Myocardial infarction (01/2019) Late presentation PR found to have severe three-vessel disease, transferred to [facility] for emergent bypass with perioperative ventricular fibrillation arrest. Pulmonary hypertension Severe pulmonary hypertension with RVSP of 81 non echo December 2023 RLS (restless legs syndrome) Seizure disorder With epileptiform discharges from the left anterior temporal region on EKG December 2022 consistent with history of focal seizures Ventricular tachycardia Surgical History Surgical History History of cardiac catheterization History of coronary artery bypass graft (~02/2019) Three-vessel bypass and surgical repair of left ventricular aneurysm at [facility]. History of fusion of cervical spine Family History Family History Mother Patient's mother is Hypertension Father Patient's father is Malignant neoplasm of prostate Social History Social History Social History: He reports that he has not been home since approximately 2018 due to difficulties with mobility he has [facility] in the [facility] since [facility]. 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 Healthcare power of trade mark attorney: Blanquita Ann, . Code status: Full code. Smoking packs per day: 1.5 Smoking cigarettes per day: 30.0 Years smoked: 30 Smoking pack-years: 45.00 Smoking status: Former smoker Tobacco type: cigarettes Second hand tobacco smoke exposure: No Alcohol intake: never Substance use: never Substance use type: does not use Do You Feel Safe in your Home?: Yes Lack of Transportation: No Lack of Food: Never True Current Housing: I Have Housing Concerned About Future Housing: No Difficulty Paying Gas/Electric Bills: No Difficulty Paying for Meds: No Currently Unemployed: No Education: High School Diploma/GED Difficulty w/ Childcare or Family Care: No Living arrangements: [facility] Additional living arrangements comments: . He has resided at [facility] since 2019. 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 Spiritual care concerns: No Meds Home Medications and Allergies Home Medications Medication Instructions Recorded Confirmed Type aspirin 81 mg tablet,delayed 81 mg PO DAILY 03/30/21 09/22/24 History release atorvastatin 40 mg tablet 40 mg PO HS high cholesterol 03/30/21 09/22/24 History biotin 5,000 mcg disintegrating 5,000 mcg PO DAILY supplement 03/30/21 09/22/24 History tablet levothyroxine 137 mcg tablet 137 mcg PO QAM hypothyroidism 03/30/21 09/22/24 History tamsulosin 0.4 mg capsule 0.8 mg PO HS benign prostatic 03/30/21 09/22/24 History hyperplasia ascorbic acid (vitamin C) 500 mg 500 mg PO BID wound healing 01/18/22 09/22/24 History capsule duloxetine 60 mg capsule,delayed 60 mg PO DAILY depression 01/18/22 09/22/24 History release baclofen 5 mg tablet 10 mg PO TID 06/09/22 09/22/24 History dulaglutide 0.75 mg/0.5 mL 0.75 mg subcut WEEKLY 06/09/22 09/22/24 History subcutaneous pen injector (Trulicity) empagliflozin 25 mg tablet 25 mg PO DAILY type 2 diabetes 06/09/22 09/22/24 History (Jardiance) ferrous gluconate 324 mg (38 mg 324 mg PO DAILY supplementation 06/09/22 09/22/24 History iron) tablet ipratropium 0.5 mg-albuterol 3 mg 3 ml inhalation Q6H PRN Shortness 06/09/22 09/22/24 History (2.5 mg base)/3 mL nebulization Of Breath soln latanoprost 0.005 % eye drops 1 drp EACH EYE HS glaucoma 06/09/22 09/22/24 History brimonidine 0.2 % eye drops 1 drp EACH EYE BID glaucoma 12/29/22 09/22/24 History diclofenac sodium 1 % topical gel 1 ea topical BID 12/29/22 09/22/24 History Nystatin Powder 1 applic topical Q12H PRN Rash 03/06/23 09/22/24 History acetaminophen 500 mg tablet 1,000 mg PO Q8H PRN Pain (Scale 03/06/23 09/22/24 History (Acetaminophen Extra Strength) Score 4-6) azelastine 137 mcg (0.1 %) nasal 1 spray intranasal Q12H allergic 03/06/23 09/22/24 History spray rhinitis magnesium oxide 400 mg (241.3 mg 400 mg PO DAILY hypomagnesemia 03/06/23 09/22/24 History magnesium) tablet peg [id number] 1 1 drp EACH EYE BID dry eyes 03/06/23 09/22/24 History %-0.2 %-0.2 % eye drops (Artificial Tears ([id number])) glucagon 1 mg injection kit 1 mg subcut PRN PRN Hypoglycemia 04/17/23 09/22/24 History insulin lispro 100 unit/mL 3 unit subcut AC 04/17/23 09/22/24 History subcutaneous pen (Humalog KwikPen (U-100) Insulin) omeprazole 20 mg capsule,delayed 20 mg PO DAILY 04/17/23 09/22/24 History release tramadol 50 mg tablet 100 mg PO Q8H PRN pain #90 tabs 04/20/23 09/22/24 Rx furosemide 40 mg tablet 40 mg PO BID #60 tabs 05/18/23 09/22/24 Rx cetirizine 10 mg tablet 10 mg PO DAILY 06/14/23 09/22/24 History miconazole nitrate 2 % topical 1 applic topical HS 06/14/23 09/22/24 History cream bisacodyl 10 mg rectal suppository 10 mg RECTAL DAILY PRN Constipation 01/02/24 09/22/24 History insulin lispro 100 unit/mL 1 sliding scale dose subcut 01/02/24 09/22/24 History subcutaneous pen (Humalog KwikPen USEASDIRECTD (U-100) Insulin) magnesium hydroxide 400 mg/5 mL 30 ml PO HS PRN Constipation 01/02/24 09/22/24 History oral suspension (Milk of Magnesia) metoprolol succinate 25 mg 25 mg PO DAILY 01/02/24 09/22/24 History tablet,extended release 24 hr (Toprol XL) polyethylene glycol 3350 17 gram 17 g PO DAILY PRN Constipation 01/02/24 09/22/24 History oral powder packet triamcinolone acetonide 0.1 % 1 applic topical BID PRN 01/07/24 09/22/24 Rx topical cream dermatitis #15 grams potassium chloride 10 mEq 10 meq PO DAILY 02/11/24 09/22/24 History tablet,extended release primidone 50 mg tablet 50 mg PO TID 02/11/24 09/22/24 History amlodipine 5 mg tablet 5 mg PO DAILY 03/13/24 09/22/24 History loperamide 2 mg capsule 2 mg PO Q12H PRN Diarrhea 03/13/24 09/22/24 History carboxymethyl 0.5 %-glycerin 1 1 drp EACH EYE BID 08/17/24 09/22/24 History %-polysorb 80 0.5 %-PF eye dropperette (Refresh Optive Advanced (PF)) lidocaine 4 % topical patch 1 patch topical DAILY 08/17/24 09/22/24 History (Lidocaine Pain Relief) melatonin 5 mg tablet 5 mg PO HS 08/17/24 09/22/24 History multivitamin (Multiple Vitamins 1 tablet PO DAILY 08/17/24 09/22/24 History tablet) sodium phosphates 19 gram-7 118 ml RECTAL USEASDIRECTD PRN 08/17/24 09/22/24 History gram/118 mL enema (Fleet Enema) Constipation levetiracetam 250 mg tablet 250 mg PO Q12HR #30 tabs 08/19/24 09/22/24 Rx levetiracetam 500 mg tablet 500 mg PO Q12HR #30 tabs 08/19/24 09/22/24 Rx (Keppra) febuxostat 40 mg tablet (Uloric) 40 mg PO DAILY 09/22/24 09/22/24 History insulin glargine 100 unit/mL (3 12 unit subcut HS 09/22/24 09/22/24 History mL) subcutaneous pen (Lantus Solostar U-100 Insulin) liraglutide 0.6 mg/0.1 mL (18 mg/3 1.2 mg subcut DAILY 09/22/24 09/22/24 History mL) subcutaneous pen injector lorazepam 2 mg/mL injection 0.5 mg IM Q4H PRN Seizures 09/22/24 09/22/24 History solution magnesium citrate (Citroma oral 296 ml PO DAILY PRN Constipation 09/22/24 09/22/24 History solution) miconazole nitrate 2 % topical 1 applic topical BID 09/22/24 09/22/24 History cream (Micatin) phenazopyridine 100 mg tablet 100 mg PO TID 09/22/24 09/22/24 History pregabalin 75 mg capsule 75 mg PO BID 09/22/24 09/22/24 History Allergies Allergy/AdvReac Type Severity Reaction Status Date / Time No Known Allergies Allergy Unknown Verified 09/22/24 22:27 Vital Signs Vital Signs - 24 hr 09/22/24 15:46 09/22/24 16:21 09/22/24 15:50 Temperature 97.7 F Pulse Rate 74 72 Respiratory Rate 18 19 Blood Pressure 108/56 L Pulse Oximetry 96 97 94 Oxygen Delivery Nasal Cannula Nasal Cannula Oxygen Flow Rate 2 2 09/22/24 16:12 09/22/24 16:15 09/22/24 16:42 Temperature Pulse Rate 79 71 72 Respiratory Rate 17 18 17 Blood Pressure Pulse Oximetry 96 96 96 Oxygen Delivery Oxygen Flow Rate 09/22/24 16:45 09/22/24 17:38 09/22/24 17:45 Temperature Pulse Rate 71 69 70 Respiratory Rate 16 15 13 Blood Pressure 114/68 Pulse Oximetry 95 96 97 Oxygen Delivery Oxygen Flow Rate 09/22/24 17:47 09/22/24 18:00 09/22/24 18:01 Temperature Pulse Rate 68 70 68 Respiratory Rate 14 13 14 Blood Pressure 121/68 122/70 Pulse Oximetry 96 95 95 Oxygen Delivery Oxygen Flow Rate 09/22/24 18:15 09/22/24 18:17 09/22/24 18:55 Temperature Pulse Rate 71 71 69 Respiratory Rate 13 15 17 Blood Pressure 129/67 Pulse Oximetry 94 95 98 Oxygen Delivery Oxygen Flow Rate 09/22/24 18:56 09/22/24 19:26 09/22/24 19:27 Temperature Pulse Rate 74 69 Respiratory Rate 15 16 Blood Pressure 107/74 110/64 Pulse Oximetry 97 96 98 Oxygen Delivery Nasal Cannula Oxygen Flow Rate 2 Exam Narrative: patient is laying in a stretcher Const: General: comfortable, no acute distress, well developed, ill appearing chronically, patient obtunded and average body habitus Nutritional Appearance: average body habitus Orientation/consciousness: oriented to person, oriented to place and Other orientation findings ( post ictal) HENMT: Head: normal to inspection, normocephalic and atraumatic Ears: hearing grossly normal bilaterally Face/Nose/Sinus: normal facial exam Face and sinus: normal facial exam Eyes: General: appearance normal, both eyes and all related structures Pupils: Equal, round and reactive pupils present EOM: EOMs intact bilaterally Neck: Neck: full ROM, no lymphadenopathy and no JVD Thyroid: thyroid normal Lymphatic: no lymphadenopathy noted Resp: Effort & Inspection: normal respiratory effort and able to speak in complete sentences Auscultation: clear to auscultation bilaterally Cardio: Jugular venous distension: no JVD Rate: regular rate Rhythm: regular rhythm Heart sounds: S1 normal heart sound present and S2 normal heart sound present GI: GI Palp: Yes Soft to palpation and Yes No hepatosplenomegaly present : General: Yes deferred Skin: Rashes: no rashes Wounds: no wounds Neuro: General: oriented to person, oriented to place, CN's II-XI intact bilaterally and Unable to assess gait Cranial nerves: Yes CN's II-XII intact bilaterally and Yes Equal, round and reactive pupils present Cognition (Neuro): abnormal cognition ( post ictal) Speech: normal speech Gait exam (Neuro): Unable to assess gait Motor exam (neuro): 5/5 motor strength present throughout Extrem: General: normal to inspection, full ROM, no joint enlargement and no pedal edema H&P: Results Labs Labs: Short CBC 09/22/24 Range/Units 18:19 WBC 8.2 (4.5-10.0) K/mm3 Hgb 15.1 (14.0-18.0) g/dL Hct 46.2 (42.0-52.0) % Plt Count 125 L (150-375) k/mm3 BMP 09/22/24 18:19 Sodium 142 Potassium 4.0 Chloride 105 Carbon Dioxide 29 BUN 38 H Creatinine 1.20 Glucose 130 H Calcium 9.0 Liver Function 09/22/24 Range/Units 18:19 Total Bilirubin 0.6 (0.2-1.3) mg/dL AST 27 (17-59) U/L ALT 18 (6-50) U/L Alkaline Phosphatase 152 H (38-126) U/L Albumin 4.1 (3.5-5.1) g/dL Urine 09/22/24 Range/Units 19:05 Urine Color Dark yellow (Yellow) Urine Appearance Cloudy H (Clear) Urine pH 5.5 (5.0-9.0) Ur Specific [place] 1.016 (1.001-1.035) Urine Protein 2+ H (Negative) mg/dL Urine Glucose (UA) 3+ H (Negative) mg/dL Assessment and Plan Assessment and plan (1) Breakthrough seizure: Code(s): G40.919 - Epilepsy, unspecified, intractable, without status epilepticus Status: Acute Assessment and Plan: patient was loaded with Keppra likely secondary to acute infection CT head reviewed (2) Urinary tract infection: Code(s): N39.0 - Urinary tract infection, site not specified Status: Acute Assessment and Plan: patient started on Rocephin (3) Ischemic cardiomyopathy: Code(s): I25.5 - Ischemic cardiomyopathy Status: Chronic Assessment and Plan: continue to monitor appears euvolemic (4) Type 2 diabetes mellitus with hyperglycemia, with long-term current use of insulin: Code(s): E11.65 - Type 2 diabetes mellitus with hyperglycemia; Z79.4 - ocean transportation intermediary (current) use of insulin Status: Chronic Assessment and Plan: resume home meds continue to monitor (5) Pneumonia: Qualifiers: Laterality: bilateral Code(s): J18.9 - Pneumonia, unspecified organism Status: Acute Assessment and Plan: on Rocephin and Zithromax (6) Generalized weakness: Code(s): R53.1 - Weakness Status: Acute Assessment and Plan: likely secondary to chronic illness with acute superimposed infection (7) Seizure disorder: Code(s): G40.909 - Epilepsy, unspecified, not intractable, without status epilepticus Status: Acute Assessment and Plan: patient is on Keppra (8) Chronic heel ulcer: Code(s): L97.409 - Non-pressure chronic ulcer of unspecified heel and midfoot with unspecified severity Status: Acute Assessment and Plan: local care (9) CKD (chronic kidney disease) stage 3, GFR 30-59 ml/min: Code(s): N18.30 - Chronic kidney disease, stage 3 unspecified Status: Chronic Assessment and Plan: continue to monitor BUN and creatinine (10) Neuropathy: Code(s): G62.9 - Polyneuropathy, unspecified Status: Acute Assessment and Plan: unchanged Hospitalist [facility] Advance Care Plan I have confirmed that the patient's Advanced Care Plan is present, code status is documented, or surrogate decision maker is listed in patient medical record.: Yes Medication Reconciliation I have utilized all available resources to obtain, update and review the patients current medications (includes all prescriptions, OTC, herbals, cannabis, and nutritional supplements).: Yes
[2024-09-22] MEDS: FUROSEMIDE INJ 40 MG/4 ML VIAL IV PUSH (23:00)
[2024-09-22] MEDS: AZITHROMYCIN 500 MG/NS 250 ML 500 MG/250 ML BAG 250 MG IVPB (23:00)
[2024-09-23] VITALS (17 sets, daily range): BP systolic 112–129; BP diastolic 43–72; PULSE 70–83; RESP 14–24; TEMP 35.9–37.2; O2SAT 92–98; BMI 29.0
--- NOTE | 2024-09-23 00:02 | ADMGEN ---
This patient, Bayron Ann, was admitted to IMU Room 213-01. Patient/family oriented to hospital policies and general routines including ID bracelet, bed and alarms, visiting hours, pain management, procedures, bathroom and other care routines, personal items, smoking policy, room service/diet, and visiting hours. Information on how to activate the Rapid Response Team has been discussed. Patient/Family are encouraged to report perceived risks to care and to ask questions if they do not understand what they are told or what they should do.
--- NOTE | 2024-09-23 02:32 | PC.NURSE ---
Azithromycin and Lasix given by GIAN Draper. IMU RN just called asking for meds to be marked as given.
[2024-09-23] MEDS: INSULIN ASPART (*BKC) 100 UNITS/ML SUB-Q ×5 (06:03→20:33)
[2024-09-23] MEDS: LEVOTHYROXINE SODIUM 25 MCG TABLET PO (06:04)
[2024-09-23] MEDS: LEVOTHYROXINE SODIUM 112 MCG TABLET PO (06:04)
[2024-09-23 06:12] LABS: Glucose Point of Care 203 mg/dl (65-105)
[2024-09-23 07:26] LABS: Glucose Point of Care 218 mg/dl (65-105)
[2024-09-23] MEDS: PREGABALIN (*CRX) 75 MG CAPSULE PO ×2 (08:14→16:23)
[2024-09-23] MEDS: BACLOFEN 10 MG TABLET PO ×3 (08:18→16:23)
[2024-09-23] MEDS: levETIRAcetam 500 MG TABLET 1000 MG PO ×2 (08:18→20:33)
[2024-09-23] MEDS: MAGNESIUM OXIDE 400 MG TABLET PO (08:19)
[2024-09-23] MEDS: amLODIPine BESYLATE 5 MG TABLET PO (08:19)
[2024-09-23] MEDS: PANTOPRAZOLE 40 MG TABLET PO (08:19)
[2024-09-23] MEDS: ASPIRIN 81 MG ENTERIC TABLET PO (08:19)
[2024-09-23] MEDS: DULoxetine HCL 60 MG CAPSULE.DR PO (08:21)
[2024-09-23] MEDS: EMPAGLIFLOZIN 25 MG TABLET PO (08:21)
[2024-09-23] MEDS: PRIMIDONE 50 MG TABLET PO ×3 (08:21→16:23)
[2024-09-23] MEDS: FERROUS GLUCONATE 324 MG TABLET PO (08:21)
[2024-09-23] MEDS: FEBUXOSTAT 40 MG TABLET PO (08:21)
[2024-09-23] MEDS: METOPROLOL SUCCINATE EXT REL 25 MG TABCR PO (08:21)
[2024-09-23] MEDS: AZELASTINE HCL NASAL 0.1% 137 MCG/SPR 30 ML BTL 1 SPRAY NASAL ×2 (08:21→20:32)
[2024-09-23] MEDS: LORATADINE 10 MG TABLET PO (08:21)
[2024-09-23] MEDS: BRIMONIDINE TARTRATE 0.2% OP SOLN 5 ML BTL 1 DROP EACH EYE ×2 (08:22→16:24)
[2024-09-23] MEDS: ARTIFICIAL TEARS OPHTH SOLN 15 ML BOTTLE 1 DROP EACH EYE ×2 (08:22→16:23)
[2024-09-23] MEDS: PHENAZOPYRIDINE HCL 100 MG TABLET PO ×3 (08:23→16:23)
[2024-09-23 11:29] LABS: Glucose Point of Care 293 mg/dl (65-105)
--- NOTE | 2024-09-23 13:02 | PM.IMPN ---
Progress Note: A&P Assessment and Plan (1) Breakthrough seizure: Code(s): G40.919 - Epilepsy, unspecified, intractable, without status epilepticus Status: Acute Assessment and Plan: patient was loaded with Keppra likely secondary to acute infection CT head reviewed Will increase Keppra to 1000 mg b.i.d. 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 Status: Chronic Assessment and Plan: resume home meds continue to monitor (5) Pneumonia: Qualifiers: Laterality: bilateral Code(s): J18.9 - Pneumonia, unspecified organism Status: Acute Assessment and Plan: on Rocephin and Zithromax (6) Generalized weakness: Code(s): R53.1 - Weakness Status: Acute Assessment and Plan: likely secondary to chronic illness with acute superimposed infection (7) Seizure disorder: Code(s): G40.909 - Epilepsy, unspecified, not intractable, without status epilepticus Status: Acute Assessment and Plan: patient is on Keppra (8) Chronic heel ulcer: Code(s): L97.409 - Non-pressure chronic ulcer of unspecified heel and midfoot with unspecified severity Status: Acute Assessment and Plan: local care (9) CKD (chronic kidney disease) stage 3, GFR 30-59 ml/min: Code(s): N18.30 - Chronic kidney disease, stage 3 unspecified Status: Chronic Assessment and Plan: continue to monitor BUN and creatinine (10) Neuropathy: Code(s): G62.9 - Polyneuropathy, unspecified Status: Acute Assessment and Plan: unchanged Plan Will order PT OT Downgrade to med surge Subjective Date/time seen: 09/23/24 13:02 Interval history: No overnight events. More awake and alert. Denies any new complaints. Review of Systems Review of Systems: All systems reviewed & are unremarkable except as noted in HPI and below Exam Narrative: GENERAL: The patient is well developed, not in acute distress HEENT: Nonicteric sclerae, PERRLA, EOMI. Oropharynx clear. Moist mucous membranes. Conjunctivae appear well perfused. CHEST: Chest wall is nontender. HEART: Regular rate and rhythm without murmur, rubs, or gallops LUNGS: Clear to auscultation bilaterally. no respiratory distress ABDOMEN: Soft, positive bowel sounds, non-tender, no organomegaly. SKIN: No rash, no excessive bruising, petechiae, or purpura. NEUROLOGIC: Cranial nerves II-XII intact, alert and oriented x 3, left leg weakness from previous stroke EXTREMITIES: no edema, cyanosis or clubbing Objective Data Vital Signs Vital Signs: Vital Signs - 24 hr 09/22/24 15:46 09/22/24 16:21 09/22/24 15:50 Temperature 97.7 F Pulse Rate 74 72 Respiratory Rate 18 19 Blood Pressure 108/56 L Pulse Oximetry 96 97 94 Oxygen Delivery Nasal Cannula Nasal Cannula Oxygen Flow Rate 2 2 Fraction of Inspired Oxygen 09/22/24 16:12 09/22/24 16:15 09/22/24 16:42 Temperature Pulse Rate 79 71 72 Respiratory Rate 17 18 17 Blood Pressure Pulse Oximetry 96 96 96 Oxygen Delivery Oxygen Flow Rate Fraction of Inspired Oxygen 09/22/24 16:45 09/22/24 17:38 09/22/24 17:45 Temperature Pulse Rate 71 69 70 Respiratory Rate 16 15 13 Blood Pressure 114/68 Pulse Oximetry 95 96 97 Oxygen Delivery Oxygen Flow Rate Fraction of Inspired Oxygen 09/22/24 17:47 09/22/24 18:00 09/22/24 18:01 Temperature Pulse Rate 68 70 68 Respiratory Rate 14 13 14 Blood Pressure 121/68 122/70 Pulse Oximetry 96 95 95 Oxygen Delivery Oxygen Flow Rate Fraction of Inspired Oxygen 09/22/24 18:15 09/22/24 18:17 09/22/24 18:55 Temperature Pulse Rate 71 71 69 Respiratory Rate 13 15 17 Blood Pressure 129/67 Pulse Oximetry 94 95 98 Oxygen Delivery Oxygen Flow Rate Fraction of Inspired Oxygen 09/22/24 18:56 09/22/24 19:26 09/22/24 19:27 Temperature Pulse Rate 74 69 Respiratory Rate 15 16 Blood Pressure 107/74 110/64 Pulse Oximetry 97 96 98 Oxygen Delivery Nasal Cannula Oxygen Flow Rate 2 Fraction of Inspired Oxygen 09/22/24 21:53 09/22/24 22:25 09/22/24 23:20 Temperature 98.0 F Pulse Rate 66 66 78 Respiratory Rate 17 17 18 Blood Pressure 125/69 112/66 114/67 Pulse Oximetry 97 96 96 Oxygen Delivery Oxygen Flow Rate Fraction of Inspired Oxygen 09/23/24 00:00 09/22/24 23:26 09/23/24 00:00 Temperature Pulse Rate 76 75 Respiratory Rate Blood Pressure Pulse Oximetry 96 Oxygen Delivery Nasal Cannula Oxygen Flow Rate 2 Fraction of Inspired Oxygen 09/23/24 02:00 09/23/24 03:04 09/23/24 03:52 Temperature 98.2 F Pulse Rate 76 83 Respiratory Rate 18 Blood Pressure 127/65 Pulse Oximetry 97 98 Oxygen Delivery Nasal Cannula Oxygen Flow Rate 2 Fraction of Inspired Oxygen 09/23/24 04:00 09/23/24 06:00 09/23/24 08:00 Temperature 98.9 F Pulse Rate 77 80 81 Respiratory Rate 20 Blood Pressure 116/68 Pulse Oximetry 97 Oxygen Delivery Oxygen Flow Rate Fraction of Inspired Oxygen 09/23/24 08:21 09/23/24 09:11 09/23/24 09:22 Temperature Pulse Rate 83 Respiratory Rate Blood Pressure Pulse Oximetry 96 92 Oxygen Delivery Nasal Cannula Room Air Oxygen Flow Rate 1 Fraction of Inspired Oxygen 09/23/24 12:00 09/23/24 08:00 Temperature 97.4 F L Pulse Rate 76 81 Respiratory Rate 16 Blood Pressure 129/43 L Pulse Oximetry 95 Oxygen Delivery Oxygen Flow Rate Fraction of Inspired Oxygen Intake/Output Intake/Output: Intake & Output 09/20/24 09/21/24 09/22/24 09/23/24 23:59 23:59 23:59 23:59 Intake Total 150 730 Output Total 500 1720 Balance -350 -990 Meds/Results Medications: Active Medications Generic Name Dose Route Start Last Admin Trade Name Freq PRN Reason Stop Dose Admin Acetaminophen 1,000 mg 09/23/24 01:44 Acetaminophen 500 Mg Tablet PO Q8H PRN Pain (Scale Score 1-3) Albuterol/Ipratropium 3 ml 09/23/24 01:44 Ipratropium 0.5 Mg/Albuterol Sulfate 2.5 Mg Ampul.Neb 3 Ml INHALATION Q6HRT PRN Shortness Of Breath Amlodipine Besylate 5 mg 09/23/24 09:00 09/23/24 08:19 Amlodipine Besylate 5 Mg Tablet PO 5 mg DAILY JERRY Administration Artificial Tears 1 drop 09/23/24 09:00 09/23/24 08:22 Artificial Tears Ophth Soln 15 Ml Bottle EACH EYE 1 drop BID JERRY Administration Aspirin 81 mg 09/23/24 09:00 09/23/24 08:19 Aspirin 81 Mg Enteric Tablet PO 81 mg DAILY JERRY Administration Atorvastatin Calcium 40 mg 09/23/24 21:00 Atorvastatin 40 Mg Tablet PO HS JERRY Azelastine HCl 1 spray 09/23/24 09:00 09/23/24 08:21 Azelastine Hcl Nasal 0.1% 137 Mcg/Spr 30 Ml Btl NASAL 1 spray Q12HR JERRY Administration Baclofen 10 mg 09/23/24 09:00 09/23/24 11:49 Baclofen 10 Mg Tablet PO 10 mg TID JERRY Administration Bisacodyl 10 mg 09/23/24 01:44 Bisacodyl 10 Mg Suppository RECTAL DAILY PRN Constipation Brimonidine Tartrate 1 drop 09/23/24 09:00 09/23/24 08:22 Brimonidine Tartrate 0.2% Op Soln 5 Ml Btl EACH EYE 1 drop BID JERRY Administration Dextrose 12.5 gm 09/23/24 11:26 Dextrose 50% 25 Gm/50 Ml Syringe IV PUSH PRN PRN Hypoglycemia Protocol Diclofenac Sodium 1 applic 09/23/24 09:00 09/23/24 08:22 Diclofenac Sodium 1% 100 Gm Gel (*Bkc) TOPICAL 1 applic BID JERRY Administration Duloxetine HCl 60 mg 09/23/24 09:00 09/23/24 08:21 Duloxetine Hcl 60 Mg Capsule.Dr PO 60 mg DAILY JERRY Administration Empagliflozin 25 mg 09/23/24 09:00 09/23/24 08:21 Empagliflozin 25 Mg Tablet PO 25 mg DAILY JERRY Administration Febuxostat 40 mg 09/23/24 09:00 09/23/24 08:21 Febuxostat 40 Mg Tablet PO 40 mg DAILY JERRY Administration Ferrous Gluconate 324 mg 09/23/24 09:00 09/23/24 08:21 Ferrous Gluconate 324 Mg Tablet PO 324 mg DAILY JERRY Administration Glucagon 1 mg 09/23/24 11:26 Glucagon For Inj 1 Mg Vial IM PRN PRN Hypoglycemia Protocol Glucose 15 gm 09/23/24 11:26 Glucose Oral Gel 15 Gm Of Glucse In 37.5 Gm Tube PO PRN PRN Hypoglycemia Protocol Ceftriaxone Sodium 1 gm in 50 mls @ 100 mls/hr 09/23/24 21:00 Rocephin 1 Gm/Ns 50 Ml IVPB Q24H JERRY Azithromycin 500 mg in 250 mls @ 250 mls/hr 09/23/24 21:00 Zithromax IVPB Q24H JERRY Dextrose 1,000 mls @ 100 mls/hr 09/23/24 11:26 Dextrose 5% 1,000 Ml IVPB PRN PRN Hypoglycemia Protocol Insulin Aspart 3 units 09/23/24 06:30 09/23/24 11:49 Insulin Aspart (*Bkc) 100 Units/Ml SUB-Q 10/23/24 06:29 3 units AC JERRY Administration Insulin Aspart 4 - 8 units 09/23/24 12:00 09/23/24 11:50 Insulin Aspart (*Bkc) 100 Units/Ml SUB-Q 5 units TIDWM JERRY Administration Protocol Insulin Aspart 2 - 4 units 09/23/24 21:00 Insulin Aspart (*Bkc) 100 Units/Ml SUB-Q HS [facility] Protocol Insulin Glargine 12 units 09/23/24 21:00 Insulin Glargine (*Bkc) 100 Units/Ml SUB-Q HS [facility] Latanoprost 1 drop 09/23/24 21:00 Latanoprost 0.005% Op Soln 2.5 Ml Btl EACH EYE [facility] Levetiracetam 1,000 mg 09/23/24 09:00 09/23/24 08:18 Levetiracetam 500 Mg Tablet PO 1,000 mg Q12HR JERRY Administration Levothyroxine Sodium 112 mcg 09/23/24 06:30 09/23/24 06:04 Levothyroxine Sodium 112 Mcg Tablet PO 112 mcg DAILY@0630 JERRY Administration Levothyroxine Sodium 25 mcg 09/23/24 06:30 09/23/24 06:04 Levothyroxine Sodium 25 Mcg Tablet PO 25 mcg DAILY@0630 JERRY Administration Loratadine 10 mg 09/23/24 09:00 09/23/24 08:21 Loratadine 10 Mg Tablet PO 10/23/24 08:59 10 mg DAILY JERRY Administration Magnesium Hydroxide 30 ml 09/23/24 01:44 Magnesium Hydroxide Susp 30 Ml Udc PO HS PRN Constipation Magnesium Oxide 400 mg 09/23/24 09:00 09/23/24 08:19 Magnesium Oxide 400 Mg Tablet PO 400 mg DAILY JERRY Administration Melatonin 5 mg 09/23/24 21:00 Melatonin 5 Mg Tablet PO HS [facility] Metoprolol Succinate 25 mg 09/23/24 09:00 09/23/24 08:21 Metoprolol Succinate Ext Rel 25 Mg Tabcr PO 25 mg DAILY JERRY Administration Miconazole Nitrate 1 applic 09/23/24 21:00 Miconazole Nitrate 2% Cream 30 Gm Tube TOPICAL HS [facility] Pantoprazole Sodium 40 mg 09/23/24 09:00 09/23/24 08:19 Pantoprazole 40 Mg Tablet PO 10/23/24 08:59 40 mg DAILY JERRY Administration Phenazopyridine HCl 100 mg 09/23/24 09:00 09/23/24 11:49 Phenazopyridine Hcl 100 Mg Tablet PO 100 mg TID [facility] Administration Polyethylene Glycol 17 gm 09/23/24 01:44 Polyethylene Glycol 3350 17 Gm Powd.Pack PO DAILY PRN Constipation Pregabalin 75 mg 09/23/24 09:00 09/23/24 08:14 Pregabalin (*Crx) 75 Mg Capsule PO 75 mg BID [facility] Administration Primidone 50 mg 09/23/24 09:00 09/23/24 11:49 Primidone 50 Mg Tablet PO 50 mg TID [facility] Administration Tamsulosin HCl 0.8 mg 09/23/24 21:00 Tamsulosin Hcl 0.4 Mg Capsule PO HS [facility] Tramadol HCl 100 mg 09/23/24 01:44 Tramadol Hcl (*Crx) 50 Mg Tablet PO Q8H PRN pain 4-6 Radiology Results: ITS Impressions Chest X-Ray 09/22/24 18:22 IMPRESSION: 1. Stable airspace opacities in left lower lung zone, consistent with atelectasis versus pneumonia. 2. Mild pulmonary edema. 3. Cardiomegaly. Head CT 09/22/24 18:41 IMPRESSION: 1. 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 Labs Labs: Laboratory Results - last 24 hr 09/22/24 09/22/24 09/22/24 18:19 18:21 19:05 WBC 8.2 RBC 4.87 Hgb 15.1 Hct 46.2 MCV 94.9 MCH 31.0 MCHC 32.7 RDW 15.7 H Plt Count 125 L MPV 10.9 H Immature Gran % (Auto) 1.3 H Neut % (Auto) 68.4 Lymph % (Auto) 17.5 L [place] % (Auto) 8.8 H Eos % (Auto) 3.1 Baso % (Auto) 0.9 Lymph # (Auto) 1.43 [place] # (Auto) 0.7 H Eos # (Auto) 0.3 Baso # (Auto) 0.1 Abs Immat Gran (auto) 0.11 H Absolute Neuts (auto) 5.6 Absolute Nucleated RBC 0.000 Nucleated RBC % 0.0 % Immature Plt Fraction 4.3 Sodium 142 Potassium 4.0 Chloride 105 Carbon Dioxide 29 Anion Gap 8 BUN 38 H Creatinine 1.20 Estim Creat Clear Calc 68 Estimated GFR > 60 Glucose 130 H POC Capillary Glucose Calcium 9.0 Magnesium 2.2 Total Bilirubin 0.6 AST 27 ALT 18 Alkaline Phosphatase 152 H Total Protein 9.0 H Albumin 4.1 Urine Color Dark yellow Urine Appearance Cloudy H Urine pH 5.5 Ur Specific [place] 1.016 Urine Protein 2+ H Urine Glucose (UA) 3+ H Urine Ketones Negative Ur Blood (Man) 2+ H Urine Nitrate Positive H Urine Bilirubin Negative Urine Urobilinogen 1.0 Add Ur Microanalysis Reviewed Leukocyte Esterase Rfl 2+ H Urine RBC 3-5 H Urine WBC >100 H Ur Squamous Epith Cells None seen Urine Bacteria None seen Urine Casts 0-2 Influenza A (RT-PCR) Negative Influenza B (RT-PCR) Negative RSV (RT-PCR) Negative SARS-CoV-2 RNA (RT-PCR) Negative 09/23/24 09/23/24 09/23/24 06:02 07:23 11:27 WBC RBC Hgb Hct MCV MCH MCHC RDW Plt Count MPV Immature Gran % (Auto) Neut % (Auto) Lymph % (Auto) [place] % (Auto) Eos % (Auto) Baso % (Auto) Lymph # (Auto) [place] # (Auto) Eos # (Auto) Baso # (Auto) Abs Immat Gran (auto) Absolute Neuts (auto) Absolute Nucleated RBC Nucleated RBC % % Immature Plt Fraction Sodium Potassium Chloride Carbon Dioxide Anion Gap BUN Creatinine Estim Creat Clear Calc Estimated GFR Glucose POC Capillary Glucose 203 H 218 H 293 H Calcium Magnesium Total Bilirubin AST ALT Alkaline Phosphatase Total Protein Albumin Urine Color Urine Appearance Urine pH Ur Specific [place] Urine Protein Urine Glucose (UA) Urine Ketones Ur Blood (Man) Urine Nitrate Urine Bilirubin Urine Urobilinogen Add Ur Microanalysis Leukocyte Esterase Rfl Urine RBC Urine WBC Ur Squamous Epith Cells Urine Bacteria Urine Casts Influenza A (RT-PCR) Influenza B (RT-PCR) RSV (RT-PCR) SARS-CoV-2 RNA (RT-PCR)
[2024-09-23] MEDS: ACETAMINOPHEN 500 MG TABLET 1000 MG PO (14:55)
[2024-09-23 17:03] LABS: Glucose Point of Care 182 mg/dl (65-105)
[2024-09-23 20:25] LABS: Glucose Point of Care 263 mg/dl (65-105)
[2024-09-23] MEDS: AZITHROMYCIN 500 MG/NS 250 ML 500 MG/250 ML BAG 250 MG IVPB (20:32)
[2024-09-23] MEDS: ATORVASTATIN 40 MG TABLET PO (20:32)
[2024-09-23] MEDS: MELATONIN 5 MG TABLET PO (20:33)
[2024-09-23] MEDS: INSULIN GLARGINE (*BKC) 100 UNITS/ML 12 UNITS SUB-Q (20:33)
[2024-09-23] MEDS: MICONAZOLE NITRATE 2% CREAM 30 GM TUBE 1 APPLIC TOPICAL (20:33)
[2024-09-23] MEDS: LATANOPROST 0.005% OP SOLN 2.5 ML BTL 1 DROP EACH EYE (20:33)
[2024-09-23] MEDS: TAMSULOSIN HCL 0.4 MG CAPSULE 0.8 MG PO (20:33)
[2024-09-24] VITALS (14 sets, daily range): BP systolic 107–129; BP diastolic 61–73; PULSE 63–82; RESP 12–20; TEMP 35.7–36.7; O2SAT 92–100
--- NOTE | 2024-09-24 05:56 | PCRCNOTE ---
APNEA was done but no data was collected due to the Pt disconnecting the pulse-ox. Study will need repeated.
[2024-09-24] MEDS: LEVOTHYROXINE SODIUM 112 MCG TABLET PO (06:16)
[2024-09-24] MEDS: LEVOTHYROXINE SODIUM 25 MCG TABLET PO (06:16)
[2024-09-24] MEDS: INSULIN ASPART (*BKC) 100 UNITS/ML SUB-Q ×3 (06:17→12:20)
[2024-09-24 06:51] LABS: Basophils Percent Auto 0.5 % (0.2-1.2); Eosinophils Absolute Auto 0.2 K/mm3 (0-0.3); Eosinophils Percent Auto 2.5 % (0-4.4); Hematocrit 45.7 % (42.0-52.0); Hemoglobin 14.7 g/dL (14.0-18.0); Immature Granulocyte Absolute 0.09 K/mm3 (0.00-0.031); Immature Granulocyte Percent A 1.1 % (0-0.5); Immature Platelet Fraction Pct 4.7 % (0.9-11.2); Lymphocytes Percent Auto 13.5 % (18.3-44.2); Mean Corpuscular HGB Conc 32.2 g/dl (32-36); Mean Corpuscular Hemoglobin 30.7 pg (26-34); Mean Corpuscular Volume 95.4 fl (80-100); Mean Platelet Volume 11.7 fl (7.4-10.4); Monocytes Absolute Auto 0.8 K/mm3 (0.1-0.6); Monocytes Percent Auto 9.4 % (2.6-8.5); Platelet Count Result 109 k/mm3 (150-375); Red Blood Count 4.79 M/mm3 (4.6-6.20); Red Cell Distribution Width 15.6 % (11.5-14.5); White Blood Count 8.2 K/mm3 (4.5-10.0)
[2024-09-24 06:59] LABS: Alanine Aminotransferase 17 U/L (6-50); Albumin Level 3.9 g/dL (3.5-5.1); Alkaline Phosphatase 118 U/L (38-126); Anion Gap 8 mmol/L (4-12); Aspartate Amino Transferase 27 U/L (17-59); Bilirubin,Total 0.8 mg/dL (0.2-1.3); Blood Urea Nitrogen 40 mg/dL (9-20); Calcium 8.9 mg/dL (8.4-10.2); Carbon Dioxide 32 mmol/L (22-30); Chloride 101 mmol/L (98-107); Estimated CRCL calculation 71 ml/min; Estimated Glomerular Filt Rate 55; Glucose 164 mg/dL (65-110); Magnesium 2.2 mg/dL (1.6-2.3); Potassium 3.8 mmol/L (3.4-5.0); Sodium 141 mmol/L (137-145)
[2024-09-24 08:08] LABS: Glucose Point of Care 177 mg/dl (65-105)
[2024-09-24] MEDS: EMPAGLIFLOZIN 25 MG TABLET PO (08:18)
[2024-09-24] MEDS: ASPIRIN 81 MG ENTERIC TABLET PO (08:18)
[2024-09-24] MEDS: PHENAZOPYRIDINE HCL 100 MG TABLET PO ×2 (08:18→12:24)
[2024-09-24] MEDS: BACLOFEN 10 MG TABLET PO ×2 (08:18→12:24)
[2024-09-24] MEDS: METOPROLOL SUCCINATE EXT REL 25 MG TABCR PO (08:18)
[2024-09-24] MEDS: PREGABALIN (*CRX) 75 MG CAPSULE PO (08:18)
[2024-09-24] MEDS: PRIMIDONE 50 MG TABLET PO ×2 (08:18→12:24)
[2024-09-24] MEDS: levETIRAcetam 500 MG TABLET 1000 MG PO (08:18)
[2024-09-24] MEDS: amLODIPine BESYLATE 5 MG TABLET PO (08:18)
[2024-09-24] MEDS: FEBUXOSTAT 40 MG TABLET PO (08:18)
[2024-09-24] MEDS: MAGNESIUM OXIDE 400 MG TABLET PO (08:19)
[2024-09-24] MEDS: PANTOPRAZOLE 40 MG TABLET PO (08:19)
[2024-09-24] MEDS: FERROUS GLUCONATE 324 MG TABLET PO (08:19)
[2024-09-24] MEDS: LORATADINE 10 MG TABLET PO (08:19)
[2024-09-24] MEDS: DULoxetine HCL 60 MG CAPSULE.DR PO (08:19)
[2024-09-24] MEDS: DICLOFENAC SODIUM 1% 100 GM GEL (*BKC) 1 APPLIC TOPICAL ×2 (08:20→16:53)
[2024-09-24] MEDS: AZELASTINE HCL NASAL 0.1% 137 MCG/SPR 30 ML BTL 1 SPRAY NASAL (08:20)
[2024-09-24] MEDS: ARTIFICIAL TEARS OPHTH SOLN 15 ML BOTTLE 1 DROP EACH EYE ×2 (08:20→16:53)
[2024-09-24] MEDS: BRIMONIDINE TARTRATE 0.2% OP SOLN 5 ML BTL 1 DROP EACH EYE ×2 (08:20→16:53)
[2024-09-24 12:08] LABS: Glucose Point of Care 210 mg/dl (65-105)
--- NOTE | 2024-09-24 12:27 | P.PNIM_ITS ---
Progress Note: A&P Assessment and Plan (1) Breakthrough seizure: Code(s): G40.919 - Epilepsy, unspecified, intractable, without status epilepticus Status: Acute Assessment and Plan: * patient was loaded with Keppra * likely secondary to acute infection * CT head reviewed * Neurology consulted * Patient having seizures this afternoon the first was about 2 minutes followed by a couple 30 second to 1 minute seizures. Patient given a total of Ativan 4 mg IVP. * Neuro aware and ordered Levetiracetam 1,000 mg IVPB bolus then Levetiracetam 2,000 mg IVPB q12. Ordered Lorazepam 5 mg ivp q 4 PRN for seizures. * Seizure precautions and suction set up * Telemetry ordered. (2) Urinary tract infection: Code(s): N39.0 - Urinary tract infection, site not specified Status: Acute Assessment and Plan: * patient started on Rocephin * Urine culture showed no growth * encourage hydration. (3) Pneumonia: Qualifiers: Laterality: bilateral Code(s): J18.9 - Pneumonia, unspecified organism Status: Acute Assessment and Plan: * on Rocephin and Zithromax * Add Mucinex. (4) Ischemic cardiomyopathy: Code(s): I25.5 - Ischemic cardiomyopathy Status: Chronic Assessment and Plan: * continue to monitor * appears euvolemic (5) Type 2 diabetes mellitus with hyperglycemia, with long-term current use of insulin: Code(s): E11.65 - Type 2 diabetes mellitus with hyperglycemia; Z79.4 - intermediate accountant (current) use of insulin Status: Chronic Assessment and Plan: * resume home meds * continue to monitor (6) Generalized weakness: Code(s): R53.1 - Weakness Status: Acute Assessment and Plan: * likely secondary to chronic illness with acute superimposed infection * PT/OT (7) Seizure disorder: Code(s): G40.909 - Epilepsy, unspecified, not intractable, without status epilepticus Status: Acute Assessment and Plan: * Neurology consulted * Patient having seizures this afternoon the first was about 2 minutes followed by a couple 30 second to 1 minute seizures. Patient given a total of Ativan 4 mg IVP. * Neuro aware and ordered Levetiracetam 1,000 mg IVPB bolus then Levetiracetam 2,000 mg IVPB q12. Ordered Lorazepam 5 mg ivp q 4 PRN for seizures. * Seizure precautions and suction set up * Keppra level ordered. (8) Chronic heel ulcer: Code(s): L97.409 - Non-pressure chronic ulcer of unspecified heel and midfoot with unspecified severity Status: Acute Assessment and Plan: * local care (9) CKD (chronic kidney disease) stage 3, GFR 30-59 ml/min: Code(s): N18.30 - Chronic kidney disease, stage 3 unspecified Status: Chronic Assessment and Plan: * BUN 40, Creatinine 1.30, GFR 55. (10) Neuropathy: Code(s): G62.9 - Polyneuropathy, unspecified Status: Acute Assessment and Plan: * unchanged Plan Will order PT OT Downgrade to med surge Subjective Date/time seen: 09/24/24 12:27 Interval history: Patient reports pain when coughs and coughing up clear to brown sputum. Patient had episode of left chest heaviness after coughing that subsided after nebulizer treatment and rest. EKG done and Troponin ordered. Trop <0/012. Patient started on Mucinex. Patient having seizures this afternoon the first was about 2 minutes followed by a couple 30 second to 1 minute seizures. Patient given a total of Ativan 4 mg IVP. Neuro aware and ordered Levetiracetam 1,000 mg IVPB bolus then Levetiracetam 2,000 mg IVPB q12. Ordered Lorazepam 5 mg ivp q 4 PRN for seizures. Patient denies palpitations, headache, dizziness, nausea, or vomiting. Patient reported feeling tired. Review of Systems Review of Systems: All systems reviewed & are unremarkable except as noted in HPI and below Exam Const: General: comfortable Resp: Effort & Inspection: normal respiratory effort Auscultation: diminished lung sounds Cardio: Rate: regular rate Rhythm: regular rhythm GI: GI Palp: Yes Soft to palpation Auscultation: normal bowel sounds Skin: Rashes: no rashes noted Neuro: Speech: normal speech Extrem: General: no pedal edema Psych: Affect: normal affect Objective Data Vital Signs Vital Signs: Vital Signs - 24 hr 09/23/24 14:00 09/23/24 16:00 09/23/24 18:03 Temperature 98.2 F 97.7 F Pulse Rate 78 78 70 Respiratory Rate 24 H 16 Blood Pressure 126/72 112/58 L Pulse Oximetry 95 97 Oxygen Delivery Fraction of Inspired Oxygen 09/23/24 19:45 09/23/24 20:35 09/24/24 00:08 Temperature 96.7 F L 97 F L Pulse Rate 71 71 63 Respiratory Rate 14 14 14 Blood Pressure 121/63 Pulse Oximetry 97 97 92 Oxygen Delivery Room Air Fraction of Inspired Oxygen 21 09/24/24 04:35 09/24/24 08:00 09/24/24 12:00 Temperature 96.3 F L 97.3 F L 97.5 F L Pulse Rate 66 67 70 Respiratory Rate 16 18 18 Blood Pressure 117/73 125/70 107/64 Pulse Oximetry 95 92 96 Oxygen Delivery Fraction of Inspired Oxygen Intake/Output Intake/Output: Intake & Output 09/21/24 09/22/24 09/23/24 09/24/24 23:59 23:59 23:59 23:59 Intake Total 150 1450 1280 Output Total 500 1720 1725 Balance -087 -484 -643 Meds/Results Medications: Active Medications Generic Name Dose Route Start Last Admin Trade Name Freq PRN Reason Stop Dose Admin Acetaminophen 1,000 mg 09/23/24 01:44 09/23/24 14:55 Acetaminophen 500 Mg Tablet PO 1,000 mg Q8H PRN Administration Pain (Scale Score 1-3) Albuterol/Ipratropium 3 ml 09/23/24 01:44 Ipratropium 0.5 Mg/Albuterol Sulfate 2.5 Mg Ampul.Neb 3 Ml INHALATION Q6HRT PRN Shortness Of Breath Amlodipine Besylate 5 mg 09/23/24 09:00 09/24/24 08:18 Amlodipine Besylate 5 Mg Tablet PO 5 mg DAILY JERRY Administration Artificial Tears 1 drop 09/23/24 09:00 09/24/24 08:20 Artificial Tears Ophth Soln 15 Ml Bottle EACH EYE 1 drop BID JERYR Administration Aspirin 81 mg 09/23/24 09:00 09/24/24 08:18 Aspirin 81 Mg Enteric Tablet PO 81 mg DAILY JERRY Administration Atorvastatin Calcium 40 mg 09/23/24 21:00 09/23/24 20:32 Atorvastatin 40 Mg Tablet PO 40 mg HS JERRY Administration Azelastine HCl 1 spray 09/23/24 09:00 09/24/24 08:20 Azelastine Hcl Nasal 0.1% 137 Mcg/Spr 30 Ml Btl NASAL 1 spray Q12HR JERRY Administration Baclofen 10 mg 09/23/24 09:00 09/24/24 12:24 Baclofen 10 Mg Tablet PO 10 mg TID JERRY Administration Bisacodyl 10 mg 09/23/24 01:44 Bisacodyl 10 Mg Suppository RECTAL DAILY PRN Constipation Brimonidine Tartrate 1 drop 09/23/24 09:00 09/24/24 08:20 Brimonidine Tartrate 0.2% Op Soln 5 Ml Btl EACH EYE 1 drop BID JERRY Administration Dextrose 12.5 gm 09/23/24 11:26 Dextrose 50% 25 Gm/50 Ml Syringe IV PUSH PRN PRN Hypoglycemia Protocol Diclofenac Sodium 1 applic 09/23/24 09:00 09/24/24 08:20 Diclofenac Sodium 1% 100 Gm Gel (*Bkc) TOPICAL 1 applic BID JERRY Administration Duloxetine HCl 60 mg 09/23/24 09:00 09/24/24 08:19 Duloxetine Hcl 60 Mg Capsule. PO 60 mg DAILY JERRY Administration Empagliflozin 25 mg 09/23/24 09:00 09/24/24 08:18 Empagliflozin 25 Mg Tablet PO 25 mg DAILY JERRY Administration Febuxostat 40 mg 09/23/24 09:00 09/24/24 08:18 Febuxostat 40 Mg Tablet PO 40 mg DAILY JERRY Administration Ferrous Gluconate 324 mg 09/23/24 09:00 09/24/24 08:19 Ferrous Gluconate 324 Mg Tablet PO 324 mg DAILY JERRY Administration Glucagon 1 mg 09/23/24 11:26 Glucagon For Inj 1 Mg Vial IM PRN PRN Hypoglycemia Protocol Glucose 15 gm 09/23/24 11:26 Glucose Oral Gel 15 Gm Of Glucse In 37.5 Gm Tube PO PRN PRN Hypoglycemia Protocol Ceftriaxone Sodium 1 gm in 50 mls @ 100 mls/hr 09/23/24 21:00 09/23/24 22:09 Rocephin 1 Gm/Ns 50 Ml IVPB 100 mls/hr Q24H JERRY Administration Azithromycin 500 mg in 250 mls @ 250 mls/hr 09/23/24 21:00 09/23/24 20:32 Zithromax IVPB 250 mls/hr Q24H JERRY Administration Dextrose 1,000 mls @ 100 mls/hr 09/23/24 11:26 Dextrose 5% 1,000 Ml IVPB PRN PRN Hypoglycemia Protocol Insulin Aspart 3 units 09/23/24 06:30 09/24/24 12:19 Insulin Aspart (*Bkc) 100 Units/Ml SUB-Q 10/23/24 06:29 3 units AC JERRY Administration Insulin Aspart 4 - 8 units 09/23/24 12:00 09/24/24 12:20 Insulin Aspart (*Bkc) 100 Units/Ml SUB-Q 4 units TIDWM JERRY Administration Protocol Insulin Aspart 2 - 4 units 09/23/24 21:00 09/23/24 20:33 Insulin Aspart (*Bkc) 100 Units/Ml SUB-Q 2 units HS JERRY Administration Protocol Insulin Glargine 12 units 09/23/24 21:00 09/23/24 20:33 Insulin Glargine (*Bkc) 100 Units/Ml SUB-Q 12 units HS JERRY Administration Latanoprost 1 drop 09/23/24 21:00 09/23/24 20:33 Latanoprost 0.005% Op Soln 2.5 Ml Btl EACH EYE 1 drop HS JERRY Administration Levetiracetam 1,000 mg 09/23/24 09:00 09/24/24 08:18 Levetiracetam 500 Mg Tablet PO 1,000 mg Q12HR JERRY Administration Levothyroxine Sodium 112 mcg 09/23/24 06:30 09/24/24 06:16 Levothyroxine Sodium 112 Mcg Tablet PO 112 mcg DAILY@0630 JERRY Administration Levothyroxine Sodium 25 mcg 09/23/24 06:30 09/24/24 06:16 Levothyroxine Sodium 25 Mcg Tablet PO 25 mcg DAILY@0630 JERRY Administration Loratadine 10 mg 09/23/24 09:00 09/24/24 08:19 Loratadine 10 Mg Tablet PO 10/23/24 08:59 10 mg DAILY JERRY Administration Magnesium Hydroxide 30 ml 09/23/24 01:44 Magnesium Hydroxide Susp 30 Ml Udc PO HS PRN Constipation Magnesium Oxide 400 mg 09/23/24 09:00 09/24/24 08:19 Magnesium Oxide 400 Mg Tablet PO 400 mg DAILY JERRY Administration Melatonin 5 mg 09/23/24 21:00 09/23/24 20:33 Melatonin 5 Mg Tablet PO 5 mg HS JERRY Administration Metoprolol Succinate 25 mg 09/23/24 09:00 09/24/24 08:18 Metoprolol Succinate Ext Rel 25 Mg Tabcr PO 25 mg DAILY JERRY Administration Miconazole Nitrate 1 applic 09/23/24 21:00 09/23/24 20:33 Miconazole Nitrate 2% Cream 30 Gm Tube TOPICAL 1 applic HS JERRY Administration Pantoprazole Sodium 40 mg 09/23/24 09:00 09/24/24 08:19 Pantoprazole 40 Mg Tablet PO 10/23/24 08:59 40 mg DAILY JERRY Administration Phenazopyridine HCl 100 mg 09/23/24 09:00 09/24/24 12:24 Phenazopyridine Hcl 100 Mg Tablet PO 100 mg TID JERRY Administration Polyethylene Glycol 17 gm 09/23/24 01:44 Polyethylene Glycol 3350 17 Gm Powd.Pack PO DAILY PRN Constipation Pregabalin 75 mg 09/23/24 09:00 09/24/24 08:18 Pregabalin (*Crx) 75 Mg Capsule PO 75 mg BID JERRY Administration Primidone 50 mg 09/23/24 09:00 09/24/24 12:24 Primidone 50 Mg Tablet PO 50 mg TID JERRY Administration Tamsulosin HCl 0.8 mg 09/23/24 21:00 09/23/24 20:33 Tamsulosin Hcl 0.4 Mg Capsule PO 0.8 mg HS [facility] Administration Tramadol HCl 100 mg 09/23/24 01:44 Tramadol Hcl (*Crx) 50 Mg Tablet PO Q8H PRN pain 4-6 Radiology Results: ITS Impressions Chest X-Ray 09/22/24 18:22 IMPRESSION: 1. Stable airspace opacities in left lower lung zone, consistent with atelectasis versus pneumonia. 2. Mild pulmonary edema. 3. Cardiomegaly. Head CT 09/22/24 18:41 IMPRESSION: 1. 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 Labs Labs: Laboratory Results - last 24 hr 09/23/24 09/23/24 09/24/24 16:58 19:48 05:38 WBC RBC Hgb Hct MCV MCH MCHC RDW Plt Count MPV Immature Gran % (Auto) Neut % (Auto) Lymph % (Auto) [place] % (Auto) Eos % (Auto) Baso % (Auto) Lymph # (Auto) [place] # (Auto) Eos # (Auto) Baso # (Auto) Abs Immat Gran (auto) Absolute Neuts (auto) Absolute Nucleated RBC Nucleated RBC % % Immature Plt Fraction Sodium 141 Potassium 3.8 Chloride 101 Carbon Dioxide 32 H Anion Gap 8 BUN 40 H Creatinine 1.30 Estim Creat Clear Calc 71 Estimated GFR 55 L Glucose 164 H POC Capillary Glucose 182 H 263 H Calcium 8.9 Magnesium 2.2 Total Bilirubin 0.8 AST 27 ALT 17 Alkaline Phosphatase 118 Total Protein 8.0 Albumin 3.9 09/24/24 09/24/24 09/24/24 05:41 07:46 11:59 WBC 8.2 RBC 4.79 Hgb 14.7 Hct 45.7 MCV 95.4 MCH 30.7 MCHC 32.2 RDW 15.6 H Plt Count 109 L MPV 11.7 H Immature Gran % (Auto) 1.1 H Neut % (Auto) 73.0 Lymph % (Auto) 13.5 L [place] % (Auto) 9.4 H Eos % (Auto) 2.5 Baso % (Auto) 0.5 Lymph # (Auto) 1.10 [place] # (Auto) 0.8 H Eos # (Auto) 0.2 Baso # (Auto) 0.0 Abs Immat Gran (auto) 0.09 H Absolute Neuts (auto) 6.0 Absolute Nucleated RBC 0.000 Nucleated RBC % 0.0 % Immature Plt Fraction 4.7 Sodium Potassium Chloride Carbon Dioxide Anion Gap BUN Creatinine Estim Creat Clear Calc Estimated GFR Glucose POC Capillary Glucose 177 H 210 H Calcium Magnesium Total Bilirubin AST ALT Alkaline Phosphatase Total Protein Albumin Quality VTE Prophylaxis VTE prophylaxis: mechanical ordered
[2024-09-24] MEDS: guaiFENesin 12 HR 600 MG TABCR PO (12:34)
--- NOTE | 2024-09-24 12:55 | P.CONNEU_ITS ---
Assessment and Plan Assessment and plan (1) Breakthrough seizure: Code(s): G40.919 - Epilepsy, unspecified, intractable, without status epilepticus Status: Acute Plan 1. Focal seizure with secondary generalization. 2. status post right hemispheric stroke in the regions as described above, 3. Increase the levetiracetam [id number] q.12 hours, and obtain an EEG in addition to the ongoing treatment the underlying multiple medical problems. Consult date: 09/24/24 HPI: Bayron Ann is a 64 year old male Admitted to the hospital for the ongoing diagnosis of breakthrough seizure with history of underlying seizure disorder. Patient is a [place] [facility] resident and he has received and route to the hospital 2mg of Ativan and 5mg of Versed he was notedly hypoxic in the ambulance with 88% appear to and receive subsequently oxygen he denied any spec [facility] complaints but was concerned about that he has had multiple seizures when he has a seizure recurrence. He has been taking multiple medications as listed particularly aspirin 81mg daily, atorvastatin 40mg at night, levothyroxine 137 mcg daily, duloxetine 60mg delayed release daily baclofen 5mg daily Trulicity 0.75mg subQ weekly Jardiance 25mg daily insulin subQ 10units subQ in the evening, primidone 50mg 3 times a day, and amlodipine 5mg daily. He has ongoing history of 1. Previous stroke 2. Chronic renal disease stage III 3. Systolic and diastolic congestive heart failure 4. Status post 3 vessel bypass and left ventricular aneurysm repair in February of 2019 5. Glaucoma 6. gout 7. Seizure disorder which documented seizure focus in the left anterior temporal region in the past. Evaluation up until now revealed him to have normal CBC with platelet count of [id number], UA positive for the nitrates screening for influenza RSV and SARs COVID negative, initial CT scan of the head revealed old infarct involving the right temporal parietal and occipital lobe in addition to right insula and right thalamus Review of Systems Review of Systems: All systems reviewed & are unremarkable except as noted in HPI and below PMFSH Past Medical History Medical History Benign prostatic hyperplasia Cerebrovascular accident Chronic anemia (01/2019) Post CABG right parietal infarction resultant hemiplegia. Chronic kidney disease, stage 3 Combined systolic and diastolic congestive heart failure EF 20-25% on echocardiogram December 2023 with grade 2 diastolic dysfunction, severe pulmonary hypertension with RVSP of 81, moderate aortic stenosis with peak velocity of to 4 mean gradient of 9 valve area 1.4 consistent with low- flow low gradient aortic stenosis Coronary artery disease Status post three-vessel bypass and left ventricular aneurysm repair in February 2019 at [facility]. Current use of fpc anticoagulation Depression Glaucoma Gout Hyperlipidemia Hypertension Hypothyroidism Insulin dependent diabetes mellitus Ischemic cardiomyopathy EF was 20 to 25% and May 2023. Myocardial infarction (01/2019) Late presentation [place] found to have severe three-vessel disease, transferred to [facility] for emergent bypass with perioperative ventricular fibrillation arrest. Pulmonary hypertension Severe pulmonary hypertension with RVSP of 81 non echo December 2023 RLS (restless legs syndrome) Seizure disorder With epileptiform discharges from the left anterior temporal region on EKG December 2022 consistent with history of focal seizures Ventricular tachycardia Surgical History Surgical History History of cardiac catheterization History of coronary artery bypass graft (~02/2019) Three-vessel bypass and surgical repair of left ventricular aneurysm at [facility]. History of fusion of cervical spine Family History Family History Mother Patient's mother is Hypertension Father Patient's father is Malignant neoplasm of prostate Social History Social History Social History: He reports that he has not been home since approximately 2018 due to difficulties with mobility he has had to stay in the [place] [facility] since then. 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 Healthcare power of real estate attorney: Blanquita Ann, . Code status: Full code. Smoking packs per day: 1.5 Smoking cigarettes per day: 30.0 Years smoked: 30 Smoking pack-years: 45.00 Smoking status: Former smoker Tobacco type: cigarettes Second hand tobacco smoke exposure: No Alcohol intake: never Substance use: never Substance use type: does not use Do You Feel Safe in your Home?: Yes Lack of Transportation: No Lack of Food: Never True Current Housing: I Have Housing Concerned About Future Housing: No Difficulty Paying Gas/Electric Bills: No Difficulty Paying for Meds: No Currently Unemployed: No Education: High School Diploma/GED Difficulty w/ Childcare or Family Care: No Living arrangements: [facility] Additional living arrangements comments: . He has resided at [facility] since 2019. 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 Spiritual care concerns: No Meds Home Medications and Allergies Home Medications Medication Instructions Recorded Confirmed Type aspirin 81 mg tablet,delayed 81 mg PO DAILY 03/30/21 09/22/24 History release atorvastatin 40 mg tablet 40 mg PO HS high cholesterol 03/30/21 09/22/24 History biotin 5,000 mcg disintegrating 5,000 mcg PO DAILY supplement 03/30/21 09/22/24 History tablet levothyroxine 137 mcg tablet 137 mcg PO QAM hypothyroidism 03/30/21 09/22/24 History tamsulosin 0.4 mg capsule 0.8 mg PO HS benign prostatic 03/30/21 09/22/24 History hyperplasia ascorbic acid (vitamin C) 500 mg 500 mg PO BID wound healing 01/18/22 09/22/24 History capsule duloxetine 60 mg capsule,delayed 60 mg PO DAILY depression 01/18/22 09/22/24 History release baclofen 5 mg tablet 10 mg PO TID 06/09/22 09/22/24 History dulaglutide 0.75 mg/0.5 mL 0.75 mg subcut WEEKLY 06/09/22 09/22/24 History subcutaneous pen injector (Trulicity) empagliflozin 25 mg tablet 25 mg PO DAILY type 2 diabetes 06/09/22 09/22/24 History (Jardiance) ferrous gluconate 324 mg (38 mg 324 mg PO DAILY supplementation 06/09/22 09/22/24 History iron) tablet ipratropium 0.5 mg-albuterol 3 mg 3 ml inhalation Q6H PRN Shortness 06/09/22 09/22/24 History (2.5 mg base)/3 mL nebulization Of Breath soln latanoprost 0.005 % eye drops 1 drp EACH EYE HS glaucoma 06/09/22 09/22/24 History brimonidine 0.2 % eye drops 1 drp EACH EYE BID glaucoma 12/29/22 09/22/24 History diclofenac sodium 1 % topical gel 1 ea topical BID 12/29/22 09/22/24 History Nystatin Powder 1 applic topical Q12H PRN Rash 03/06/23 09/22/24 History acetaminophen 500 mg tablet 1,000 mg PO Q8H PRN Pain (Scale 03/06/23 09/22/24 History (Acetaminophen Extra Strength) Score 4-6) azelastine 137 mcg (0.1 %) nasal 1 spray intranasal Q12H allergic 03/06/23 09/22/24 History spray rhinitis magnesium oxide 400 mg (241.3 mg 400 mg PO DAILY hypomagnesemia 03/06/2309/05 History magnesium) tablet peg [id number] 1 1 drp EACH EYE BID dry eyes 03/06/23 09/22/24 History %-0.2 %-0.2 % eye drops (Artificial Tears ([id number])) glucagon 1 mg injection kit 1 mg subcut PRN PRN Hypoglycemia 04/17/23 09/22/24 History insulin lispro 100 unit/mL 3 unit subcut AC 04/17/23 09/22/24 History subcutaneous pen (Humalog KwikPen (U-100) Insulin) omeprazole 20 mg capsule,delayed 20 mg PO DAILY 04/17/23 09/22/24 History release tramadol 50 mg tablet 100 mg PO Q8H PRN pain #90 tabs 04/20/23 09/22/24 Rx furosemide 40 mg tablet 40 mg PO BID #60 tabs 05/18/23 09/22/24 Rx cetirizine 10 mg tablet 10 mg PO DAILY 06/14/23 09/22/24 History miconazole nitrate 2 % topical 1 applic topical HS 06/14/23 09/22/24 History cream bisacodyl 10 mg rectal suppository 10 mg RECTAL DAILY PRN Constipation 01/02/24 09/22/24 History insulin lispro 100 unit/mL 1 sliding scale dose subcut 01/02/24 09/22/24 History subcutaneous pen (Humalog KwikPen USEASDIRECTD (U-100) Insulin) magnesium hydroxide 400 mg/5 mL 30 ml PO HS PRN Constipation 01/02/24 09/22/24 History oral suspension (Milk of Magnesia) metoprolol succinate 25 mg 25 mg PO DAILY 01/02/24 09/22/24 History tablet,extended release 24 hr (Toprol XL) polyethylene glycol 3350 17 gram 17 g PO DAILY PRN Constipation 01/02/24 09/22/24 History oral powder packet triamcinolone acetonide 0.1 % 1 applic topical BID PRN 01/07/24 09/22/24 Rx topical cream dermatitis #15 grams potassium chloride 10 mEq 10 meq PO DAILY 02/11/24 09/22/24 History tablet,extended release primidone 50 mg tablet 50 mg PO TID 02/11/24 09/22/24 History amlodipine 5 mg tablet 5 mg PO DAILY 03/13/24 09/22/24 History loperamide 2 mg capsule 2 mg PO Q12H PRN Diarrhea 03/13/24 09/22/24 History carboxymethyl 0.5 %-glycerin 1 1 drp EACH EYE BID 08/17/24 09/22/24 History %-polysorb 80 0.5 %-PF eye dropperette (Refresh Optive Advanced (PF)) lidocaine 4 % topical patch 1 patch topical DAILY 08/17/24 09/22/24 History (Lidocaine Pain Relief) melatonin 5 mg tablet 5 mg PO HS 08/17/24 09/22/24 History multivitamin (Multiple Vitamins 1 tablet PO DAILY 08/17/24 09/22/24 History tablet) sodium phosphates 19 gram-7 118 ml RECTAL USEASDIRECTD PRN 08/17/24 09/22/24 History gram/118 mL enema (Fleet Enema) Constipation levetiracetam 250 mg tablet 250 mg PO Q12HR #30 tabs 08/19/24 09/22/24 Rx levetiracetam 500 mg tablet 500 mg PO Q12HR #30 tabs 08/19/24 09/22/24 Rx (Keppra) febuxostat 40 mg tablet (Uloric) 40 mg PO DAILY 09/22/24 09/22/24 History insulin glargine 100 unit/mL (3 12 unit subcut HS 09/22/24 09/22/24 History mL) subcutaneous pen (Lantus Solostar U-100 Insulin) liraglutide 0.6 mg/0.1 mL (18 mg/3 1.2 mg subcut DAILY 09/22/24 09/22/24 History mL) subcutaneous pen injector lorazepam 2 mg/mL injection 0.5 mg IM Q4H PRN Seizures 09/22/24 09/22/24 History solution magnesium citrate (Citroma oral 296 ml PO DAILY PRN Constipation 09/22/24 09/22/24 History solution) miconazole nitrate 2 % topical 1 applic topical BID 09/22/24 09/22/24 History cream (Micatin) phenazopyridine 100 mg tablet 100 mg PO TID 09/22/24 09/22/24 History pregabalin 75 mg capsule 75 mg PO BID 09/22/24 09/22/24 History Allergies Allergy/AdvReac Type Severity Reaction Status Date / Time No Known Allergies Allergy Unknown Verified 09/22/24 22:27 Vital Signs Vital Signs - 24 hr 09/23/24 14:00 09/23/24 16:00 09/23/24 18:03 Temperature 36.8 C 36.5 C Pulse Rate 78 78 70 Respiratory Rate 24 H 16 Blood Pressure 126/72 112/58 L Pulse Oximetry 95 97 Oxygen Delivery Fraction of Inspired Oxygen 09/23/24 19:45 09/23/24 20:35 09/24/24 00:08 Temperature 35.9 C L 36.1 C L Pulse Rate 71 71 63 Respiratory Rate 14 14 14 Blood Pressure 121/63 Pulse Oximetry 97 97 92 Oxygen Delivery Room Air Fraction of Inspired Oxygen 21 09/24/24 04:35 09/24/24 08:00 09/24/24 12:00 Temperature 35.7 C L 36.3 C L 36.4 C L Pulse Rate 66 67 70 Respiratory Rate 16 18 18 Blood Pressure 117/73 125/70 107/64 Pulse Oximetry 95 92 96 Oxygen Delivery Fraction of Inspired Oxygen Exam Narrative: revealed him to be awake alert cooperative in no obvious acute distress, head normocephalic with no cranial bruits, ear nose throat examination normal, neck supple with no cervical bruit no thyromegaly no lymphadenopathy, heart regular with no murmur, lungs clear to auscultation with no rhonchi or crepitations, abdomen is soft protuberant with no organomegaly, neurological examination revealed him to be awake alert oriented x3 aware that he is in the hospital has been transferred from the [place] [facility] speech not dysphasic not dysarthric not dysphonic pupils round regular feels the vision with left-sided neglect face is symmetrical tongue midline uvula midline motor examination revealed him to have left hemiparesis Results Labs 09/24/24 05:41 09/24/24 05:38 Labs: Short CBC 09/24/24 Range/Units 05:41 WBC 8.2 (4.5-10.0) K/mm3 Hgb 14.7 (14.0-18.0) g/dL Hct 45.7 (42.0-52.0) % Plt Count 109 L (150-375) k/mm3 BMP 09/24/24 05:38 Sodium 141 Potassium 3.8 Chloride 101 Carbon Dioxide 32 H BUN 40 H Creatinine 1.30 Glucose 164 H Calcium 8.9 Liver Function 09/24/24 Range/Units 05:38 Total Bilirubin 0.8 (0.2-1.3) mg/dL AST 27 (17-59) U/L ALT 17 (6-50) U/L Alkaline Phosphatase 118 (38-126) U/L Albumin 3.9 (3.5-5.1) g/dL
[2024-09-24] MEDS: IPRATROPIUM 0.5 MG/ALBUTEROL SULFATE 2.5 MG AMPUL.NEB 3 ML INHALATION (14:20)
--- NOTE | 2024-09-24 14:22 | ECG_ITS ---
Test Date: 2024-09-24 14:38:02 Measurements Intervals [place] Rate: 72 P: 39 MD: 156 QRS: 89 QRSD: 139 T: -45 QT: 445 QTc: 488 Interpretive Statements SINUS RHYTHM INTRAVENTRICULAR CONDUCTION DELAY POOR R WAVE PROGRESSION ST-T WAVE ABNORMALITY IN INFERIOR LEADS- CONSIDER ISCHEMIA BASELINE ARTIFACT- I, II, AVR, AVL, AVF, V1, V3 ABNORMAL ECG Compared to ECG 09/22/2024 18:22:48 NO SIGNIFICANT CHANGE Electronically Signed On 09-24-2024 14:47:36 [employer] by Valentín James D.O.
[2024-09-24] MEDS: guaiFENesin/DEXTROMETHORPHAN 10 ML UDC 5 ML PO (14:46)
[2024-09-24] MEDS: LORazepam INJ (*CRX) 2 MG/ML VIAL 1 MG IV PUSH ×2 (15:03→15:14)
[2024-09-24] MEDS: levETIRAcetam 1000MG/NACL100ML 1,000 MG/100 ML BAG 400 MG IVPB ×3 (15:14→20:42)
--- NOTE | 2024-09-24 15:16 | PCPTNOTE ---
Attempted PT evaluation, pt not medically safe to participate with skilled therapy at this time. Will follow.
[2024-09-24] MEDS: LORazepam INJ (*CRX) 2 MG/ML VIAL IV PUSH (15:21)
--- NOTE | 2024-09-24 16:10 | PC.NURSE ---
This RN was at the bedside talking with the patient when he began seizing at approximately 1455. The patient had a total of 4 [id number] seizures with the longest lasting around 3 minutes. Barb Hoff NP called to bedside at onset of seizures and Dr. Estrada called to obtain orders via telephone.
[2024-09-24 16:24] LABS: Troponin I < 0.012 ng/mL (0.000-0.034)
[2024-09-24 17:05] LABS: Glucose Point of Care 197 mg/dl (65-105)
[2024-09-24 19:36] LABS: Glucose Point of Care 175 mg/dl (65-105)
[2024-09-24] MEDS: LATANOPROST 0.005% OP SOLN 2.5 ML BTL 1 DROP EACH EYE (20:28)
[2024-09-24] MEDS: MICONAZOLE NITRATE 2% CREAM 30 GM TUBE 1 APPLIC TOPICAL (20:28)
[2024-09-24] MEDS: INSULIN GLARGINE (*BKC) 100 UNITS/ML 12 UNITS SUB-Q (21:09)
[2024-09-25] VITALS (8 sets, daily range): BP systolic 112–128; BP diastolic 62–71; PULSE 71–77; RESP 13–16; TEMP 36.2–36.6; O2SAT 92–98
[2024-09-25] MEDS: LEVOTHYROXINE SODIUM 25 MCG TABLET PO (05:40)
[2024-09-25] MEDS: LEVOTHYROXINE SODIUM 112 MCG TABLET PO (05:40)
[2024-09-25 06:30] LABS: Glucose Point of Care 172 mg/dl (65-105)
[2024-09-25 06:57] LABS: Basophils Percent Auto 0.5 % (0.2-1.2); Eosinophils Absolute Auto 0.2 K/mm3 (0-0.3); Eosinophils Percent Auto 2.6 % (0-4.4); Hematocrit 47.1 % (42.0-52.0); Hemoglobin 15.1 g/dL (14.0-18.0); Immature Granulocyte Absolute 0.07 K/mm3 (0.00-0.031); Immature Granulocyte Percent A 0.9 % (0-0.5); Immature Platelet Fraction Pct 4.7 % (0.9-11.2); Lymphocytes Absolute Auto 0.96 K/mm3 (0.9-3.2); Lymphocytes Percent Auto 12.1 % (18.3-44.2); Mean Corpuscular HGB Conc 32.1 g/dl (32-36); Mean Corpuscular Hemoglobin 30.4 pg (26-34); Mean Platelet Volume 11.7 fl (7.4-10.4); Monocytes Absolute Auto 0.8 K/mm3 (0.1-0.6); Monocytes Percent Auto 10.5 % (2.6-8.5); Neutrophils Absolute Auto 5.8 K/mm3 (1.3-6.7); Neutrophils Percent Auto 73.4 % (45.5-73.1); Platelet Count Result 107 k/mm3 (150-375); Red Blood Count 4.96 M/mm3 (4.6-6.20); Red Cell Distribution Width 15.3 % (11.5-14.5); White Blood Count 7.9 K/mm3 (4.5-10.0)
[2024-09-25 07:08] LABS: Alanine Aminotransferase 17 U/L (6-50); Albumin Level 3.9 g/dL (3.5-5.1); Alkaline Phosphatase 125 U/L (38-126); Anion Gap 5 mmol/L (4-12); Aspartate Amino Transferase 26 U/L (17-59); Bilirubin,Total 0.8 mg/dL (0.2-1.3); Blood Urea Nitrogen 36 mg/dL (9-20); Calcium 8.8 mg/dL (8.4-10.2); Carbon Dioxide 31 mmol/L (22-30); Chloride 104 mmol/L (98-107); Estimated CRCL calculation 75 ml/min; Estimated Glomerular Filt Rate > 60; Glucose 178 mg/dL (65-110); Potassium 4.5 mmol/L (3.4-5.0); Sodium 140 mmol/L (137-145)
[2024-09-25] MEDS: ACETAMINOPHEN 500 MG TABLET 1000 MG PO (08:15)
[2024-09-25] MEDS: PREGABALIN (*CRX) 75 MG CAPSULE PO ×2 (08:15→16:13)
[2024-09-25] MEDS: FERROUS GLUCONATE 324 MG TABLET PO (08:15)
[2024-09-25] MEDS: LORATADINE 10 MG TABLET PO (08:15)
[2024-09-25] MEDS: FEBUXOSTAT 40 MG TABLET PO (08:16)
[2024-09-25] MEDS: MAGNESIUM OXIDE 400 MG TABLET PO (08:16)
[2024-09-25] MEDS: PHENAZOPYRIDINE HCL 100 MG TABLET PO ×3 (08:16→16:13)
[2024-09-25] MEDS: ASPIRIN 81 MG ENTERIC TABLET PO (08:16)
[2024-09-25] MEDS: guaiFENesin 12 HR 600 MG TABCR PO ×2 (08:16→20:24)
[2024-09-25] MEDS: PRIMIDONE 50 MG TABLET PO ×3 (08:16→16:13)
[2024-09-25] MEDS: METOPROLOL SUCCINATE EXT REL 25 MG TABCR PO (08:16)
[2024-09-25] MEDS: BACLOFEN 10 MG TABLET PO ×3 (08:16→16:13)
[2024-09-25] MEDS: DULoxetine HCL 60 MG CAPSULE.DR PO (08:16)
[2024-09-25] MEDS: PANTOPRAZOLE 40 MG TABLET PO (08:16)
[2024-09-25] MEDS: EMPAGLIFLOZIN 25 MG TABLET PO (08:16)
[2024-09-25] MEDS: amLODIPine BESYLATE 5 MG TABLET PO (08:16)
[2024-09-25] MEDS: DICLOFENAC SODIUM 1% 100 GM GEL (*BKC) 1 APPLIC TOPICAL ×2 (08:17→16:14)
[2024-09-25] MEDS: BRIMONIDINE TARTRATE 0.2% OP SOLN 5 ML BTL 1 DROP EACH EYE ×2 (08:17→16:14)
[2024-09-25] MEDS: AZELASTINE HCL NASAL 0.1% 137 MCG/SPR 30 ML BTL 1 SPRAY NASAL ×2 (08:17→20:34)
[2024-09-25] MEDS: ARTIFICIAL TEARS OPHTH SOLN 15 ML BOTTLE 1 DROP EACH EYE ×2 (08:17→16:14)
[2024-09-25] MEDS: levETIRAcetam 1000MG/NACL100ML 1,000 MG/100 ML BAG 400 MG IVPB ×2 (08:18→08:32)
[2024-09-25 08:56] LABS: Glucose Point of Care 159 mg/dl (65-105)
--- NOTE | 2024-09-25 09:22 | PM.IMPN ---
Progress Note: A&P Assessment and Plan (1) Breakthrough seizure: Code(s): G40.919 - Epilepsy, unspecified, intractable, without status epilepticus Status: Acute Assessment and Plan: patient was loaded with Keppra likely secondary to acute infection CT head reviewed Neurology following Patient having seizures yesterday afternoon the first was about 2 minutes followed by a couple 30 second to 1 minute seizures. Patient given a total of Ativan 4 mg IVP. Neuro aware and ordered Levetiracetam 1,000 mg IVPB bolus then Levetiracetam 2,000 mg IVPB q12. Ordered Lorazepam 5 mg ivp q 4 PRN for seizures. Seizure precautions and suction set up Telemetry- SR 77 (2) Urinary tract infection: Code(s): N39.0 - Urinary tract infection, site not specified Status: Ruled-out Assessment and Plan: Urine culture showed no growth encourage hydration. (3) Pneumonia: Qualifiers: Laterality: bilateral Code(s): J18.9 - Pneumonia, unspecified organism Status: Acute Assessment and Plan: Augmentin 875-125 mg PO q 12 and Azithromycin 500 mg PO daily. Mucinex 600 mg PO q 12. (4) Ischemic cardiomyopathy: Code(s): I25.5 - Ischemic cardiomyopathy Status: Chronic Assessment and Plan: continue to monitor appears euvolemic (5) Type 2 diabetes mellitus with hyperglycemia, with long-term current use of insulin: Code(s): E11.65 - Type 2 diabetes mellitus with hyperglycemia; Z79.4 - continuous churn buttermaker (current) use of insulin Status: Chronic Assessment and Plan: resume home meds continue to monitor (6) Generalized weakness: Code(s): R53.1 - Weakness Status: Acute Assessment and Plan: likely secondary to chronic illness with acute superimposed infection PT/OT (7) Seizure disorder: Code(s): G40.909 - Epilepsy, unspecified, not intractable, without status epilepticus Status: Acute Assessment and Plan: Neurology consulted Patient having seizures this afternoon the first was about 2 minutes followed by a couple 30 second to 1 minute seizures. Patient given a total of Ativan 4 mg IVP. Neuro aware and ordered Levetiracetam 1,000 mg IVPB bolus then Levetiracetam 2,000 mg IVPB q12. Ordered Lorazepam 5 mg ivp q 4 PRN for seizures. Seizure precautions and suction set up Keppra level ordered. (8) Chronic heel ulcer: Code(s): L97.409 - Non-pressure chronic ulcer of unspecified heel and midfoot with unspecified severity Status: Acute Assessment and Plan: local care (9) CKD (chronic kidney disease) stage 3, GFR 30-59 ml/min: Code(s): N18.30 - Chronic kidney disease, stage 3 unspecified Status: Chronic Assessment and Plan: BUN 36, Creatinine 1.20, GFR >60. (10) Neuropathy: Code(s): G62.9 - Polyneuropathy, unspecified Status: Acute Assessment and Plan: unchanged Subjective Date/time seen: 09/25/24 09:22 Interval history: Patient reports pain in left side is a 4 , frequent, and aching. Patient denies chest pain, palpitations, headache, or dizziness. Patient is sitting up in bed eating breakfast. Review of Systems Review of Systems: All systems reviewed & are unremarkable except as noted in HPI and below Exam Const: General: no acute distress and uncomfortable Resp: Effort & Inspection: normal respiratory effort Auscultation: diminished lung sounds Cardio: Rate: regular rate Rhythm: regular rhythm GI: GI Palp: Yes Soft to palpation Auscultation: normal bowel sounds Skin: General skin exam: no rashes or lesions noted Neuro: Speech: normal speech Extrem: General: normal to inspection Psych: Affect: normal affect Objective Data Vital Signs Vital Signs: Vital Signs - 24 hr 09/24/24 12:00 09/24/24 14:22 09/24/24 14:20 Temperature 97.5 F L Pulse Rate 70 72 75 Respiratory Rate 18 18 Blood Pressure 107/64 112/62 Pulse Oximetry 96 96 97 Oxygen Delivery Nasal Cannula Oxygen Flow Rate 1 Fraction of Inspired Oxygen 09/24/24 14:20 09/24/24 14:29 09/24/24 16:00 Temperature 97.6 F Pulse Rate 75 76 79 Respiratory Rate 18 18 20 Blood Pressure 129/63 Pulse Oximetry 99 Oxygen Delivery Oxygen Flow Rate Fraction of Inspired Oxygen 09/24/24 15:30 09/24/24 16:00 09/24/24 19:59 Temperature 97.7 F Pulse Rate 82 80 73 Respiratory Rate 14 Blood Pressure 129/69 Pulse Oximetry 100 Oxygen Delivery Oxygen Flow Rate Fraction of Inspired Oxygen 09/24/24 20:20 09/24/24 20:20 09/24/24 21:56 Temperature Pulse Rate 73 73 Respiratory Rate 14 Blood Pressure Pulse Oximetry 100 93 Oxygen Delivery Nasal Cannula Room Air Oxygen Flow Rate 2 Fraction of Inspired Oxygen 09/24/24 20:01 09/24/24 23:22 09/25/24 00:03 Temperature 98.0 F Pulse Rate 77 77 77 Respiratory Rate 12 Blood Pressure 122/61 Pulse Oximetry 99 Oxygen Delivery Oxygen Flow Rate Fraction of Inspired Oxygen 09/25/24 04:00 09/25/24 04:00 09/25/24 08:00 Temperature 97.7 F 97.8 F Pulse Rate 73 71 76 Respiratory Rate 16 16 Blood Pressure 125/70 128/71 Pulse Oximetry 92 97 Oxygen Delivery Oxygen Flow Rate Fraction of Inspired Oxygen Intake/Output Intake/Output: Intake & Output 09/22/24 09/23/24 09/24/24 09/25/24 23:59 23:59 23:59 23:59 Intake Total 150 1500 1960 0 Output Total 500 1720 1725 1100 Balance -350 -220 235 -1100 Meds/Results Medications: Active Medications Generic Name Dose Route Start Last Admin Trade Name Freq PRN Reason Stop Dose Admin Acetaminophen 1,000 mg 09/23/24 01:44 09/25/24 08:15 Acetaminophen 500 Mg Tablet PO 1,000 mg Q8H PRN Administration Pain (Scale Score 1-3) Albuterol/Ipratropium 3 ml 09/23/24 01:44 09/24/24 14:20 Ipratropium 0.5 Mg/Albuterol Sulfate 2.5 Mg Ampul.Neb 3 Ml INHALATION 3 ml Q6HRT PRN Administration Shortness Of Breath Amlodipine Besylate 5 mg 09/23/24 09:00 09/25/24 08:16 Amlodipine Besylate 5 Mg Tablet PO 5 mg DAILY JERRY Administration Artificial Tears 1 drop 09/23/24 09:00 09/25/24 08:17 Artificial Tears Ophth Soln 15 Ml Bottle EACH EYE 1 drop BID JERRY Administration Aspirin 81 mg 09/23/24 09:00 09/25/24 08:16 Aspirin 81 Mg Enteric Tablet PO 81 mg DAILY JERRY Administration Atorvastatin Calcium 40 mg 09/23/24 21:00 09/24/24 20:27 Atorvastatin 40 Mg Tablet PO Not Given HS [facility] Azelastine HCl 1 spray 09/23/24 09:00 09/25/24 08:17 Azelastine Hcl Nasal 0.1% 137 Mcg/Spr 30 Ml Btl NASAL 1 spray Q12HR JERRY Administration Azithromycin 500 mg 09/24/24 21:00 09/24/24 21:15 Azithromycin 250 Mg Tablet PO 09/26/24 21:01 Not Given DAILY@2100 [facility] Baclofen 10 mg 09/23/24 09:00 09/25/24 08:16 Baclofen 10 Mg Tablet PO 10 mg TID JERRY Administration Bisacodyl 10 mg 09/23/24 01:44 Bisacodyl 10 Mg Suppository RECTAL DAILY PRN Constipation Brimonidine Tartrate 1 drop 09/23/24 09:00 09/25/24 08:17 Brimonidine Tartrate 0.2% Op Soln 5 Ml Btl EACH EYE 1 drop BID JERRY Administration Dextrose 12.5 gm 09/23/24 11:26 Dextrose 50% 25 Gm/50 Ml Syringe IV PUSH PRN PRN Hypoglycemia Protocol Diclofenac Sodium 1 applic 09/23/24 09:00 09/25/24 08:17 Diclofenac Sodium 1% 100 Gm Gel (*Bkc) TOPICAL 1 applic BID JERRY Administration Duloxetine HCl 60 mg 09/23/24 09:00 09/25/24 08:16 Duloxetine Hcl 60 Mg Capsule.Dr PO 60 mg DAILY JERRY Administration Empagliflozin 25 mg 09/23/24 09:00 09/25/24 08:16 Empagliflozin 25 Mg Tablet PO 25 mg DAILY JERRY Administration Febuxostat 40 mg 09/23/24 09:00 09/25/24 08:16 Febuxostat 40 Mg Tablet PO 40 mg DAILY JERRY Administration Ferrous Gluconate 324 mg 09/23/24 09:00 09/25/24 08:15 Ferrous Gluconate 324 Mg Tablet PO 324 mg DAILY JERRY Administration Flumazenil 0.2 mg 09/24/24 15:27 Flumazenil 0.5 Mg/5 Ml Vial IV PUSH PRN PRN Sedation from ativan Glucagon 1 mg 09/23/24 11:26 Glucagon For Inj 1 Mg Vial IM PRN PRN Hypoglycemia Protocol Glucose 15 gm 09/23/24 11:26 Glucose Oral Gel 15 Gm Of Glucse In 37.5 Gm Tube PO PRN PRN Hypoglycemia Protocol Guaifenesin 600 mg 09/24/24 12:30 09/25/24 08:16 Guaifenesin 12 Hr 600 Mg Tabcr PO 10/01/24 12:29 600 mg Q12HR JERRY Administration Guaifenesin/Dextromethorphan 5 ml 09/24/24 14:36 09/24/24 14:46 Guaifenesin/Dextromethorphan 10 Ml Udc PO 5 ml Q4H PRN Administration Cough Ceftriaxone Sodium 1 gm in 50 mls @ 100 mls/hr 09/23/24 21:00 09/24/24 21:08 Rocephin 1 Gm/Ns 50 Ml IVPB 100 mls/hr Q24H JERRY Administration Dextrose 1,000 mls @ 100 mls/hr 09/23/24 11:26 Dextrose 5% 1,000 Ml IVPB PRN PRN Hypoglycemia Protocol Insulin Aspart 3 units 09/23/24 06:30 09/25/24 06:31 Insulin Aspart (*Bkc) 100 Units/Ml SUB-Q 10/23/24 06:29 Not Given AC [facility] Insulin Aspart 4 - 8 units 09/23/24 12:00 09/25/24 08:17 Insulin Aspart (*Bkc) 100 Units/Ml SUB-Q Not Given TIDWM [facility] Protocol Insulin Aspart 2 - 4 units 09/23/24 21:00 09/24/24 20:26 Insulin Aspart (*Bkc) 100 Units/Ml SUB-Q Not Given HS [facility] Protocol Insulin Glargine 12 units 09/23/24 21:00 09/24/24 21:09 Insulin Glargine (*Bkc) 100 Units/Ml SUB-Q 12 units HS [facility] Administration Latanoprost 1 drop 09/23/24 21:00 09/24/24 20:28 Latanoprost 0.005% Op Soln 2.5 Ml Btl EACH EYE 1 drop HS [facility] Administration Levetiracetam 2,000 mg 09/25/24 21:00 Levetiracetam 500 Mg Tablet PO Q12HR [facility] Levothyroxine Sodium 112 mcg 09/23/24 06:30 09/25/24 05:40 Levothyroxine Sodium 112 Mcg Tablet PO 112 mcg DAILY@0630 JERRY Administration Levothyroxine Sodium 25 mcg 09/23/24 06:30 09/25/24 05:40 Levothyroxine Sodium 25 Mcg Tablet PO 25 mcg DAILY@0630 JERRY Administration Loratadine 10 mg 09/23/24 09:00 09/25/24 08:15 Loratadine 10 Mg Tablet PO 10/23/24 08:59 10 mg DAILY [facility] Administration Lorazepam 2 mg 09/24/24 16:00 Lorazepam Inj (*Crx) 2 Mg/Ml Vial IV PUSH Q4H PRN seizure Magnesium Hydroxide 30 ml 09/23/24 01:44 Magnesium Hydroxide Susp 30 Ml Udc PO HS PRN Constipation Magnesium Oxide 400 mg 09/23/24 09:00 09/25/24 08:16 Magnesium Oxide 400 Mg Tablet PO 400 mg DAILY [facility] Administration Melatonin 5 mg 09/23/24 21:00 09/24/24 20:28 Melatonin 5 Mg Tablet PO Not Given [facility] Metoprolol Succinate 25 mg 09/23/24 09:00 09/25/24 08:16 Metoprolol Succinate Ext Rel 25 Mg Tabcr PO 25 mg DAILY [facility] Administration Miconazole Nitrate 1 applic 09/23/24 21:00 09/24/24 20:28 Miconazole Nitrate 2% Cream 30 Gm Tube TOPICAL 1 applic HS [facility] Administration Pantoprazole Sodium 40 mg 09/23/24 09:00 09/25/24 08:16 Pantoprazole 40 Mg Tablet PO 10/23/24 08:59 40 mg DAILY [facility] Administration Phenazopyridine HCl 100 mg 09/23/24 09:00 09/25/24 08:16 Phenazopyridine Hcl 100 Mg Tablet PO 100 mg TID [facility] Administration Polyethylene Glycol 17 gm 09/23/24 01:44 Polyethylene Glycol 3350 17 Gm Powd.Pack PO DAILY PRN Constipation Pregabalin 75 mg 09/23/24 09:00 09/25/24 08:15 Pregabalin (*Crx) 75 Mg Capsule PO 75 mg BID [facility] Administration Primidone 50 mg 09/23/24 09:00 09/25/24 08:16 Primidone 50 Mg Tablet PO 50 mg TID [facility] Administration Tamsulosin HCl 0.8 mg 09/23/24 21:00 09/24/24 20:29 Tamsulosin Hcl 0.4 Mg Capsule PO Not Given HS [facility] Tramadol HCl 100 mg 09/23/24 01:44 Tramadol Hcl (*Crx) 50 Mg Tablet PO Q8H PRN pain 4-6 Radiology Results: ITS Impressions Chest X-Ray 09/22/24 18:22 IMPRESSION: 1. Stable airspace opacities in left lower lung zone, consistent with atelectasis versus pneumonia. 2. Mild pulmonary edema. 3. Cardiomegaly. Head CT 09/22/24 18:41 IMPRESSION: 1. 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 Labs Labs: Laboratory Results - last 24 hr 09/24/24 09/24/24 09/24/24 11:59 15:54 16:59 WBC RBC Hgb Hct MCV MCH MCHC RDW Plt Count MPV Immature Gran % (Auto) Neut % (Auto) Lymph % (Auto) [place] % (Auto) Eos % (Auto) Baso % (Auto) Lymph # (Auto) [place] # (Auto) Eos # (Auto) Baso # (Auto) Abs Immat Gran (auto) Absolute Neuts (auto) Absolute Nucleated RBC Nucleated RBC % % Immature Plt Fraction Sodium Potassium Chloride Carbon Dioxide Anion Gap BUN Creatinine Estim Creat Clear Calc Estimated GFR Glucose POC Capillary Glucose 210 H 197 H Calcium Total Bilirubin AST ALT Alkaline Phosphatase Troponin I < 0.012 Total Protein Albumin 09/24/24 09/25/24 09/25/24 19:20 06:23 06:25 WBC 7.9 RBC 4.96 Hgb 15.1 Hct 47.1 MCV 95.0 MCH 30.4 MCHC 32.1 RDW 15.3 H Plt Count 107 L MPV 11.7 H Immature Gran % (Auto) 0.9 H Neut % (Auto) 73.4 H Lymph % (Auto) 12.1 L [place] % (Auto) 10.5 H Eos % (Auto) 2.6 Baso % (Auto) 0.5 Lymph # (Auto) 0.96 [place] # (Auto) 0.8 H Eos # (Auto) 0.2 Baso # (Auto) 0.0 Abs Immat Gran (auto) 0.07 H Absolute Neuts (auto) 5.8 Absolute Nucleated RBC 0.000 Nucleated RBC % 0.0 % Immature Plt Fraction 4.7 Sodium 140 Potassium 4.5 Chloride 104 Carbon Dioxide 31 H Anion Gap 5 BUN 36 H Creatinine 1.20 Estim Creat Clear Calc 75 Estimated GFR > 60 Glucose 178 H POC Capillary Glucose 175 H 172 H Calcium 8.8 Total Bilirubin 0.8 AST 26 ALT 17 Alkaline Phosphatase 125 Troponin I Total Protein 8.0 Albumin 3.9 09/25/24 08:14 WBC RBC Hgb Hct MCV MCH MCHC RDW Plt Count MPV Immature Gran % (Auto) Neut % (Auto) Lymph % (Auto) [place] % (Auto) Eos % (Auto) Baso % (Auto) Lymph # (Auto) [place] # (Auto) Eos # (Auto) Baso # (Auto) Abs Immat Gran (auto) Absolute Neuts (auto) Absolute Nucleated RBC Nucleated RBC % % Immature Plt Fraction Sodium Potassium Chloride Carbon Dioxide Anion Gap BUN Creatinine Estim Creat Clear Calc Estimated GFR Glucose POC Capillary Glucose 159 H Calcium Total Bilirubin AST ALT Alkaline Phosphatase Troponin I Total Protein Albumin Quality VTE Prophylaxis VTE prophylaxis: mechanical ordered
[2024-09-25 09:28] LABS: Levetiracetam Keppra 57.9 mcg/mL (6.0-46.0)
--- NOTE | 2024-09-25 12:45 | P.PNNEUR_ITS ---
Progress Note: A&P Assessment and Plan (1) Breakthrough seizure: Code(s): G40.919 - Epilepsy, unspecified, intractable, without status epilepticus Status: Acute (2) Left spastic hemiplegia: Code(s): G81.14 - Spastic hemiplegia affecting left nondominant side Status: Acute (3) Acute kidney injury superimposed on chronic kidney disease: Code(s): N17.9 - Acute kidney failure, unspecified; N18.9 - Chronic kidney disease, unspecified Status: Acute (4) Type 2 diabetes mellitus with hyperglycemia: Qualifiers: Diabetes mellitus mcfp insulin use: with adjunct faculty for medical terminology use Qualified Code(s): E11.65 - Type 2 diabetes mellitus with hyperglycemia; Z79.4 - assisted (current) use of insulin Code(s): E11.65 - Type 2 diabetes mellitus with hyperglycemia Status: Acute Plan The patient was previously on Keppra 750 mg twice a day and hence I would suggest we can keep him on Keppra 15 mg twice a day. Of course he to taken some time to adjust to this medication. If he has any further seizures I would like to be informed and would be glad to take care of him. Neurology will follow while he is here. He does have residual weakness on the left side of the body which is longstanding. CT scan of brain shows old right CVA. Carotid Doppler study performed on 08/18/2024 did not show any hemodynamically significant narrowing. From cerebrovascular disease point of view he is on atorvastatin 40 mg a day and aspirin 81 mg a day. Subjective Date/time seen: 09/25/24 12:45 Interval history: the patient is 64 years old with history of CVA with residual left hemiparesis and seizure disorder. He states that he has 2 types of seizures in 1 of them he has some visual symptoms and thereafter he passes out. And other kind he has twitching of the right arm and after that he passes out. He also has history of diabetes mellitus and chronic kidney disease and has had coronary bypass grafting. Been long-term for last 5 years. He has had 6-7 seizures in the last 1 year. I saw him on the previous hospitalization and we have reduced his Keppra to 750 mg twice a day. He came in from an outside hospital because of seizures. He is on Keppra 2000 mg twice a day. He is feeling very drowsy Most likely from medication effect. However he has not had any further seizures. Review of Systems Review of Systems: All systems reviewed & are unremarkable except as noted in HPI and below Exam Narrative: Fully conscious alert oriented to self time place and person. No aphasia or dysarthria. Cranial nerves pupils were equal reacting to light visual garcía by confrontation were normal. There is no facial asymmetry. Face sensation intact. Other cranial normal limits. Motor system shows mild weakness of the left upper and moderate to severe weakness of the left lower limb. No involuntary movements. Objective Data Vital Signs Vital Signs: Vital Signs - 24 hr 09/24/24 14:22 09/24/24 14:20 09/24/24 14:20 Temperature Pulse Rate 72 75 75 Respiratory Rate 18 18 Blood Pressure 112/62 Pulse Oximetry 96 97 Oxygen Delivery Nasal Cannula Oxygen Flow Rate 1 Fraction of Inspired Oxygen 09/24/24 14:29 09/24/24 16:00 09/24/24 15:30 Temperature 97.6 F Pulse Rate 76 79 82 Respiratory Rate 18 20 Blood Pressure 129/63 Pulse Oximetry 99 Oxygen Delivery Oxygen Flow Rate Fraction of Inspired Oxygen 09/24/24 16:00 09/24/24 19:59 09/24/24 20:20 Temperature 97.7 F Pulse Rate 80 73 73 Respiratory Rate 14 14 Blood Pressure 129/69 Pulse Oximetry 100 100 Oxygen Delivery Nasal Cannula Oxygen Flow Rate 2 Fraction of Inspired Oxygen 09/24/24 20:20 09/24/24 21:56 09/24/24 20:01 Temperature Pulse Rate 73 77 Respiratory Rate Blood Pressure Pulse Oximetry 93 Oxygen Delivery Room Air Oxygen Flow Rate Fraction of Inspired Oxygen 09/24/24 23:22 09/25/24 00:03 09/25/24 04:00 Temperature 98.0 F Pulse Rate 77 77 73 Respiratory Rate 12 Blood Pressure 122/61 Pulse Oximetry 99 Oxygen Delivery Oxygen Flow Rate Fraction of Inspired Oxygen 09/25/24 04:00 09/25/24 08:00 09/25/24 09:39 Temperature 97.7 F 97.8 F Pulse Rate 71 76 Respiratory Rate 16 16 Blood Pressure 125/70 128/71 Pulse Oximetry 92 97 Oxygen Delivery Nasal Cannula Oxygen Flow Rate 2 Fraction of Inspired Oxygen 09/25/24 09:28 09/25/24 08:16 09/25/24 08:16 Temperature Pulse Rate 72 Respiratory Rate Blood Pressure Pulse Oximetry 94 Oxygen Delivery Nasal Cannula Nasal Cannula Oxygen Flow Rate 1 2 Fraction of Inspired Oxygen 09/25/24 12:00 Temperature 97.3 F L Pulse Rate 75 Respiratory Rate 16 Blood Pressure 114/69 Pulse Oximetry 98 Oxygen Delivery Oxygen Flow Rate Fraction of Inspired Oxygen Intake/Output Intake/Output: Intake & Output 09/22/24 09/23/24 09/24/24 09/25/24 23:59 23:59 23:59 23:59 Intake Total 150 1500 1960 860 Output Total 500 1720 1725 1100 Balance -350 -220 235 -240 Meds/Results Medications: Active Medications Generic Name Dose Route Start Last Admin Trade Name Freq PRN Reason Stop Dose Admin Acetaminophen 1,000 mg 09/23/24 01:44 09/25/24 08:15 Acetaminophen 500 Mg Tablet PO 1,000 mg Q8H PRN Administration Pain (Scale Score 1-3) Albuterol/Ipratropium 3 ml 09/23/24 01:44 09/24/24 14:20 Ipratropium 0.5 Mg/Albuterol Sulfate 2.5 Mg Ampul.Neb 3 Ml INHALATION 3 ml Q6HRT PRN Administration Shortness Of Breath Amlodipine Besylate 5 mg 09/23/24 09:00 09/25/24 08:16 Amlodipine Besylate 5 Mg Tablet PO 5 mg DAILY JERRY Administration Artificial Tears 1 drop 09/23/24 09:00 09/25/24 08:17 Artificial Tears Ophth Soln 15 Ml Bottle EACH EYE 1 drop BID JERRY Administration Aspirin 81 mg 09/23/24 09:00 09/25/24 08:16 Aspirin 81 Mg Enteric Tablet PO 81 mg DAILY JERRY Administration Atorvastatin Calcium 40 mg 09/23/24 21:00 09/24/24 20:27 Atorvastatin 40 Mg Tablet PO Not Given HS JERRY Azelastine HCl 1 spray 09/23/24 09:00 09/25/24 08:17 Azelastine Hcl Nasal 0.1% 137 Mcg/Spr 30 Ml Btl NASAL 1 spray Q12HR JERRY Administration Azithromycin 500 mg 09/24/24 21:00 09/24/24 21:15 Azithromycin 250 Mg Tablet PO 09/26/24 21:01 Not Given DAILY@2100 JERRY Baclofen 10 mg 09/23/24 09:00 09/25/24 08:16 Baclofen 10 Mg Tablet PO 10 mg TID JERRY Administration Bisacodyl 10 mg 09/23/24 01:44 Bisacodyl 10 Mg Suppository RECTAL DAILY PRN Constipation Brimonidine Tartrate 1 drop 09/23/24 09:00 09/25/24 08:17 Brimonidine Tartrate 0.2% Op Soln 5 Ml Btl EACH EYE 1 drop BID JERRY Administration Dextrose 12.5 gm 09/23/24 11:26 Dextrose 50% 25 Gm/50 Ml Syringe IV PUSH PRN PRN Hypoglycemia Protocol Diclofenac Sodium 1 applic 09/23/24 09:00 09/25/24 08:17 Diclofenac Sodium 1% 100 Gm Gel (*Bkc) TOPICAL 1 applic BID JRERY Administration Duloxetine HCl 60 mg 09/23/24 09:00 09/25/24 08:16 Duloxetine Hcl 60 Mg Capsule. PO 60 mg DAILY JERRY Administration Empagliflozin 25 mg 09/23/24 09:00 09/25/24 08:16 Empagliflozin 25 Mg Tablet PO 25 mg DAILY JERRY Administration Febuxostat 40 mg 09/23/24 09:00 09/25/24 08:16 Febuxostat 40 Mg Tablet PO 40 mg DAILY JERRY Administration Ferrous Gluconate 324 mg 09/23/24 09:00 09/25/24 08:15 Ferrous Gluconate 324 Mg Tablet PO 324 mg DAILY JERRY Administration Flumazenil 0.2 mg 09/24/24 15:27 Flumazenil 0.5 Mg/5 Ml Vial IV PUSH PRN PRN Sedation from ativan Glucagon 1 mg 09/23/24 11:26 Glucagon For Inj 1 Mg Vial IM PRN PRN Hypoglycemia Protocol Glucose 15 gm 09/23/24 11:26 Glucose Oral Gel 15 Gm Of Glucse In 37.5 Gm Tube PO PRN PRN Hypoglycemia Protocol Guaifenesin 600 mg 09/24/24 12:30 09/25/24 08:16 Guaifenesin 12 Hr 600 Mg Tabcr PO 10/01/24 12:29 600 mg Q12HR JERRY Administration Guaifenesin/Dextromethorphan 5 ml 09/24/24 14:36 09/24/24 14:46 Guaifenesin/Dextromethorphan 10 Ml Udc PO 5 ml Q4H PRN Administration Cough Ceftriaxone Sodium 1 gm in 50 mls @ 100 mls/hr 09/23/24 21:00 09/24/24 21:08 Rocephin 1 Gm/Ns 50 Ml IVPB 100 mls/hr Q24H JERRY Administration Dextrose 1,000 mls @ 100 mls/hr 09/23/24 11:26 Dextrose 5% 1,000 Ml IVPB PRN PRN Hypoglycemia Protocol Insulin Aspart 3 units 09/23/24 06:30 09/25/24 06:31 Insulin Aspart (*Bkc) 100 Units/Ml SUB-Q 10/23/24 06:29 Not Given AC JERRY Insulin Aspart 4 - 8 units 09/23/24 12:00 09/25/24 08:17 Insulin Aspart (*Bkc) 100 Units/Ml SUB-Q Not Given TIDWM JERRY Protocol Insulin Aspart 2 - 4 units 09/23/24 21:00 09/24/24 20:26 Insulin Aspart (*Bkc) 100 Units/Ml SUB-Q Not Given HS [facility] Protocol Insulin Glargine 12 units 09/23/24 21:00 09/24/24 21:09 Insulin Glargine (*Bkc) 100 Units/Ml SUB-Q 12 units HS JERRY Administration Latanoprost 1 drop 09/23/24 21:00 09/24/24 20:28 Latanoprost 0.005% Op Soln 2.5 Ml Btl EACH EYE 1 drop HS JERRY Administration Levetiracetam 2,000 mg 09/25/24 21:00 Levetiracetam 500 Mg Tablet PO Q12HR [facility] Levothyroxine Sodium 112 mcg 09/23/24 06:30 09/25/24 05:40 Levothyroxine Sodium 112 Mcg Tablet PO 112 mcg DAILY@0630 JERRY Administration Levothyroxine Sodium 25 mcg 09/23/24 06:30 09/25/24 05:40 Levothyroxine Sodium 25 Mcg Tablet PO 25 mcg DAILY@0630 JERRY Administration Loratadine 10 mg 09/23/24 09:00 09/25/24 08:15 Loratadine 10 Mg Tablet PO 10/23/24 08:59 10 mg DAILY JERRY Administration Lorazepam 2 mg 09/24/24 16:00 Lorazepam Inj (*Crx) 2 Mg/Ml Vial IV PUSH Q4H PRN seizure Magnesium Hydroxide 30 ml 09/23/24 01:44 Magnesium Hydroxide Susp 30 Ml Udc PO HS PRN Constipation Magnesium Oxide 400 mg 09/23/24 09:00 09/25/24 08:16 Magnesium Oxide 400 Mg Tablet PO 400 mg DAILY JERRY Administration Melatonin 5 mg 09/23/24 21:00 09/24/24 20:28 Melatonin 5 Mg Tablet PO Not Given HS [facility] Metoprolol Succinate 25 mg 09/23/24 09:00 09/25/24 08:16 Metoprolol Succinate Ext Rel 25 Mg Tabcr PO 25 mg DAILY JERRY Administration Miconazole Nitrate 1 applic 09/23/24 21:00 09/24/24 20:28 Miconazole Nitrate 2% Cream 30 Gm Tube TOPICAL 1 applic HS [facility] Administration Pantoprazole Sodium 40 mg 09/23/24 09:00 09/25/24 08:16 Pantoprazole 40 Mg Tablet PO 10/23/24 08:59 40 mg DAILY JERRY Administration Phenazopyridine HCl 100 mg 09/23/24 09:00 09/25/24 08:16 Phenazopyridine Hcl 100 Mg Tablet PO 100 mg TID JERRY Administration Polyethylene Glycol 17 gm 09/23/24 01:44 Polyethylene Glycol 3350 17 Gm Powd.Pack PO DAILY PRN Constipation Pregabalin 75 mg 09/23/24 09:00 09/25/24 08:15 Pregabalin (*Crx) 75 Mg Capsule PO 75 mg BID JERRY Administration Primidone 50 mg 09/23/24 09:00 09/25/24 08:16 Primidone 50 Mg Tablet PO 50 mg TID JERRY Administration Tamsulosin HCl 0.8 mg 09/23/24 21:00 09/24/24 20:29 Tamsulosin Hcl 0.4 Mg Capsule PO Not Given HS [facility] Tramadol HCl 100 mg 09/23/24 01:44 Tramadol Hcl (*Crx) 50 Mg Tablet PO Q8H PRN pain 4-6 Radiology Results: ITS Impressions Chest X-Ray 09/22/24 18:22 IMPRESSION: 1. Stable airspace opacities in left lower lung zone, consistent with atelectasis versus pneumonia. 2. Mild pulmonary edema. 3. Cardiomegaly. Head CT 09/22/24 18:41 IMPRESSION: 1. 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 Labs Labs: Laboratory Results - last 24 hr 09/24/24 09/24/24 09/24/24 15:54 16:59 19:20 WBC RBC Hgb Hct MCV MCH MCHC RDW Plt Count MPV Immature Gran % (Auto) Neut % (Auto) Lymph % (Auto) Mcleod % (Auto) Eos % (Auto) Baso % (Auto) Lymph # (Auto) Mcleod # (Auto) Eos # (Auto) Baso # (Auto) Abs Immat Gran (auto) Absolute Neuts (auto) Absolute Nucleated RBC Nucleated RBC % % Immature Plt Fraction Sodium Potassium Chloride Carbon Dioxide Anion Gap BUN Creatinine Estim Creat Clear Calc Estimated GFR Glucose POC Capillary Glucose 197 H 175 H Calcium Total Bilirubin AST ALT Alkaline Phosphatase Troponin I < 0.012 Total Protein Albumin Levetiracetam 57.9 H 09/25/24 09/25/24 09/25/24 06:23 06:25 08:14 WBC 7.9 RBC 4.96 Hgb 15.1 Hct 47.1 MCV 95.0 MCH 30.4 MCHC 32.1 RDW 15.3 H Plt Count 107 L MPV 11.7 H Immature Gran % (Auto) 0.9 H Neut % (Auto) 73.4 H Lymph % (Auto) 12.1 L Mcleod % (Auto) 10.5 H Eos % (Auto) 2.6 Baso % (Auto) 0.5 Lymph # (Auto) 0.96 Mcleod # (Auto) 0.8 H Eos # (Auto) 0.2 Baso # (Auto) 0.0 Abs Immat Gran (auto) 0.07 H Absolute Neuts (auto) 5.8 Absolute Nucleated RBC 0.000 Nucleated RBC % 0.0 % Immature Plt Fraction 4.7 Sodium 140 Potassium 4.5 Chloride 104 Carbon Dioxide 31 H Anion Gap 5 BUN 36 H Creatinine 1.20 Estim Creat Clear Calc 75 Estimated GFR > 60 Glucose 178 H POC Capillary Glucose 172 H 159 H Calcium 8.8 Total Bilirubin 0.8 AST 26 ALT 17 Alkaline Phosphatase 125 Troponin I Total Protein 8.0 Albumin 3.9 Levetiracetam
[2024-09-25 12:51] LABS: Glucose Point of Care 229 mg/dl (65-105)
[2024-09-25] MEDS: INSULIN ASPART (*BKC) 100 UNITS/ML SUB-Q ×3 (13:17→20:24)
[2024-09-25 13:29] LABS: Cholesterol 114 mg/dL (0-200); HDL Direct 27 mg/dL; Triglycerides 116 mg/dL (<150)
[2024-09-25 13:46] LABS: LDL Cholesterol Direct 53 mg/dL
[2024-09-25 14:36] LABS: Folic Acid 6.4 ng/mL (2.76->20)
[2024-09-25 16:28] LABS: Glucose Point of Care 184 mg/dl (65-105)
[2024-09-25 16:41] LABS: Vitamin D 25 Hydroxy 24.5 ng/mL
[2024-09-25 19:41] LABS: Glucose Point of Care 237 mg/dl (65-105)
[2024-09-25] MEDS: AZITHROMYCIN 250 MG TABLET 500 MG PO (20:22)
[2024-09-25] MEDS: ATORVASTATIN 40 MG TABLET PO (20:22)
[2024-09-25] MEDS: TAMSULOSIN HCL 0.4 MG CAPSULE 0.8 MG PO (20:22)
[2024-09-25] MEDS: AMOXICILLIN/CLAVULANATE K 875-125 MG TAB 1 TABLET PO (20:23)
[2024-09-25] MEDS: levETIRAcetam 500 MG TABLET 1500 MG PO (20:23)
[2024-09-25] MEDS: MELATONIN 5 MG TABLET PO (20:24)
[2024-09-25] MEDS: traMADol HCL (*CRX) 50 MG TABLET 100 MG PO (20:25)
[2024-09-25] MEDS: INSULIN GLARGINE (*BKC) 100 UNITS/ML 12 UNITS SUB-Q (20:25)
[2024-09-25] MEDS: MICONAZOLE NITRATE 2% CREAM 30 GM TUBE 1 APPLIC TOPICAL (20:34)
[2024-09-25] MEDS: LATANOPROST 0.005% OP SOLN 2.5 ML BTL 1 DROP EACH EYE (20:35)
[2024-09-26] VITALS (11 sets, daily range): BP systolic 103–123; BP diastolic 65–72; PULSE 63–71; RESP 16; TEMP 36.2–36.7; O2SAT 95–97
[2024-09-26] MEDS: ACETAMINOPHEN 500 MG TABLET 1000 MG PO (02:40)
[2024-09-26] MEDS: LEVOTHYROXINE SODIUM 112 MCG TABLET PO (06:25)
[2024-09-26] MEDS: LEVOTHYROXINE SODIUM 25 MCG TABLET PO (06:25)
[2024-09-26 07:21] LABS: Basophils Absolute Auto 0.1 K/mm3 (0.0-0.1); Basophils Percent Auto 0.7 % (0.2-1.2); Eosinophils Absolute Auto 0.3 K/mm3 (0-0.3); Eosinophils Percent Auto 3.8 % (0-4.4); Hematocrit 44.1 % (42.0-52.0); Hemoglobin 14.1 g/dL (14.0-18.0); Immature Granulocyte Absolute 0.05 K/mm3 (0.00-0.031); Immature Granulocyte Percent A 0.7 % (0-0.5); Immature Platelet Fraction Pct 5.7 % (0.9-11.2); Lymphocytes Absolute Auto 1.12 K/mm3 (0.9-3.2); Lymphocytes Percent Auto 15.1 % (18.3-44.2); Mean Corpuscular Hemoglobin 30.6 pg (26-34); Mean Corpuscular Volume 95.7 fl (80-100); Mean Platelet Volume 11.5 fl (7.4-10.4); Monocytes Absolute Auto 0.8 K/mm3 (0.1-0.6); Monocytes Percent Auto 10.6 % (2.6-8.5); Neutrophils Absolute Auto 5.2 K/mm3 (1.3-6.7); Neutrophils Percent Auto 69.1 % (45.5-73.1); Platelet Count Result 100 k/mm3 (150-375); Red Blood Count 4.61 M/mm3 (4.6-6.20); Red Cell Distribution Width 15.3 % (11.5-14.5); White Blood Count 7.4 K/mm3 (4.5-10.0)
[2024-09-26 07:23] LABS: Glucose Point of Care 169 mg/dl (65-105)
[2024-09-26 07:38] LABS: Alanine Aminotransferase 17 U/L (6-50); Albumin Level 3.7 g/dL (3.5-5.1); Alkaline Phosphatase 113 U/L (38-126); Anion Gap 8 mmol/L (4-12); Aspartate Amino Transferase 28 U/L (17-59); Bilirubin,Total 0.7 mg/dL (0.2-1.3); Blood Urea Nitrogen 40 mg/dL (9-20); Calcium 8.5 mg/dL (8.4-10.2); Carbon Dioxide 27 mmol/L (22-30); Chloride 103 mmol/L (98-107); Estimated CRCL calculation 76 ml/min; Estimated Glomerular Filt Rate > 60; Glucose 151 mg/dL (65-110); Potassium 4.2 mmol/L (3.4-5.0); Sodium 138 mmol/L (137-145)
[2024-09-26] MEDS: LORATADINE 10 MG TABLET PO (08:44)
[2024-09-26] MEDS: levETIRAcetam 500 MG TABLET 1500 MG PO ×2 (08:44→21:03)
[2024-09-26] MEDS: PREGABALIN (*CRX) 75 MG CAPSULE PO ×2 (08:44→17:26)
[2024-09-26] MEDS: PHENAZOPYRIDINE HCL 100 MG TABLET PO ×3 (08:44→17:26)
[2024-09-26] MEDS: amLODIPine BESYLATE 5 MG TABLET PO (08:44)
[2024-09-26] MEDS: ARTIFICIAL TEARS OPHTH SOLN 15 ML BOTTLE 1 DROP EACH EYE ×2 (08:44→17:26)
[2024-09-26] MEDS: FEBUXOSTAT 40 MG TABLET PO (08:44)
[2024-09-26] MEDS: AMOXICILLIN/CLAVULANATE K 875-125 MG TAB 1 TABLET PO ×2 (08:44→21:03)
[2024-09-26] MEDS: EMPAGLIFLOZIN 25 MG TABLET PO (08:45)
[2024-09-26] MEDS: MAGNESIUM OXIDE 400 MG TABLET PO (08:45)
[2024-09-26] MEDS: METOPROLOL SUCCINATE EXT REL 25 MG TABCR PO (08:45)
[2024-09-26] MEDS: BACLOFEN 10 MG TABLET PO ×3 (08:45→17:26)
[2024-09-26] MEDS: PANTOPRAZOLE 40 MG TABLET PO (08:45)
[2024-09-26] MEDS: DULoxetine HCL 60 MG CAPSULE.DR PO (08:45)
[2024-09-26] MEDS: guaiFENesin 12 HR 600 MG TABCR PO ×2 (08:45→21:03)
[2024-09-26] MEDS: DICLOFENAC SODIUM 1% 100 GM GEL (*BKC) 1 APPLIC TOPICAL ×2 (08:46→17:27)
[2024-09-26] MEDS: BRIMONIDINE TARTRATE 0.2% OP SOLN 5 ML BTL 1 DROP EACH EYE ×2 (08:46→17:27)
[2024-09-26] MEDS: FERROUS GLUCONATE 324 MG TABLET PO (08:46)
[2024-09-26] MEDS: ASPIRIN 81 MG ENTERIC TABLET PO (08:46)
[2024-09-26] MEDS: AZELASTINE HCL NASAL 0.1% 137 MCG/SPR 30 ML BTL 1 SPRAY NASAL ×2 (08:46→21:05)
[2024-09-26] MEDS: PRIMIDONE 50 MG TABLET PO ×3 (08:50→17:26)
[2024-09-26 11:21] LABS: Glucose Point of Care 261 mg/dl (65-105)
[2024-09-26] MEDS: INSULIN ASPART (*BKC) 100 UNITS/ML SUB-Q ×3 (12:10→17:26)
--- NOTE | 2024-09-26 15:55 | P.PNIM_ITS ---
Progress Note: A&P Assessment and Plan (1) Breakthrough seizure: Code(s): G40.919 - Epilepsy, unspecified, intractable, without status epilepticus Status: Acute Assessment and Plan: * patient was loaded with Keppra * likely secondary to acute infection * CT head reviewed * Neurology following * Patient having seizures 09/24 afternoon the first was about 2 minutes followed by a couple 30 second to 1 minute seizures. Patient given a total of Ativan 4 mg IVP. * Neuro aware and ordered Levetiracetam 1,000 mg IVPB bolus then Levetiracetam 2,000 mg IVPB q12. Ordered Lorazepam 5 mg ivp q 4 PRN for seizures. * Currently Levetiracetam 1,500 mg PO q 12. * Seizure precautions and suction set up * Telemetry- SR 63 (2) Urinary tract infection: Code(s): N39.0 - Urinary tract infection, site not specified Status: Ruled-out Assessment and Plan: * Urine culture showed no growth * encourage hydration. (3) Pneumonia: Qualifiers: Laterality: bilateral Code(s): J18.9 - Pneumonia, unspecified organism Status: Acute Assessment and Plan: * Augmentin 875-125 mg PO q 12 and Azithromycin 500 mg PO daily. * Mucinex 600 mg PO q 12. * Patient weaned to room air with Sa02 96%. 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 Patient given a total of Ativan 4 mg IVP. * Neuro aware and ordered Levetiracetam 1,000 mg IVPB bolus then Levetiracetam 2,000 mg IVPB q12. Ordered Lorazepam 5 mg ivp q 4 PRN for seizures. * Currently Levetiracetam 1,500 mg PO q 12. * Seizure precautions and suction set up * Keppra level ordered. (8) Chronic heel ulcer: Code(s): L97.409 - Non-pressure chronic ulcer of unspecified heel and midfoot with unspecified severity Status: Acute Assessment and Plan: * local care (9) CKD (chronic kidney disease) stage 3, GFR 30-59 ml/min: Code(s): N18.30 - Chronic kidney disease, stage 3 unspecified Status: Chronic Assessment and Plan: * BUN 40, Creatinine 1.20, GFR >60. (10) Neuropathy: Code(s): G62.9 - Polyneuropathy, unspecified Status: Acute Assessment and Plan: * unchanged Subjective Date/time seen: 09/26/24 15:55 Interval history: Patient reports pain in left hand is a 4 , frequent, and aching. Patient feeling stronger today. Patient denies chest pain, palpitations, headache, dizziness, nausea, or vomiting. Review of Systems Review of Systems: All systems reviewed & are unremarkable except as noted in HPI and below Exam Const: General: no acute distress and uncomfortable Resp: Effort & Inspection: normal respiratory effort Auscultation: diminished lung sounds Cardio: Rate: regular rate Rhythm: regular rhythm GI: GI Palp: Yes Soft to palpation Auscultation: normal bowel sounds Skin: Other: Brown 1 1/2 inch area to medial aspect of right great toe. No drainage Neuro: Speech: normal speech Extrem: General: normal to inspection Psych: Affect: normal affect Objective Data Vital Signs Vital Signs: Vital Signs - 24 hr 09/25/24 15:56 09/25/24 16:00 09/25/24 20:00 Temperature 97.8 F 97.1 F L Pulse Rate 73 74 73 Respiratory Rate 16 13 Blood Pressure 112/62 125/71 Pulse Oximetry 93 94 Oxygen Delivery 09/25/24 20:00 09/26/24 00:00 09/26/24 04:00 Temperature Pulse Rate 74 67 64 Respiratory Rate Blood Pressure Pulse Oximetry Oxygen Delivery 09/26/24 05:06 09/26/24 08:00 09/26/24 08:45 Temperature 98.1 F Pulse Rate 68 63 68 Respiratory Rate 16 Blood Pressure 107/65 Pulse Oximetry 97 Oxygen Delivery 09/26/24 08:00 09/26/24 09:40 09/26/24 08:00 Temperature 97.2 F L Pulse Rate 63 Respiratory Rate 16 Blood Pressure 103/69 Pulse Oximetry 96 95 Oxygen Delivery Room Air Room Air 09/26/24 15:47 Temperature 97.6 F Pulse Rate 67 Respiratory Rate 16 Blood Pressure 113/66 Pulse Oximetry 96 Oxygen Delivery Intake/Output Intake/Output: Intake & Output 09/23/24 09/24/24 09/25/24 09/26/24 23:59 23:59 23:59 23:59 Intake Total 1500 1960 2820 1410 Output Total 1720 1725 2600 1800 Balance -220 235 220 -390 Meds/Results Medications: Active Medications Generic Name Dose Route Start Last Admin Trade Name Freq PRN Reason Stop Dose Admin Acetaminophen 1,000 mg 09/23/24 01:44 09/26/24 02:40 Acetaminophen 500 Mg Tablet PO 1,000 mg Q8H PRN Administration Pain (Scale Score 1-3) Albuterol/Ipratropium 3 ml 09/23/24 01:44 09/24/24 14:20 Ipratropium 0.5 Mg/Albuterol Sulfate 2.5 Mg Ampul.Neb 3 Ml INHALATION 3 ml Q6HRT PRN Administration Shortness Of Breath Amlodipine Besylate 5 mg 09/23/24 09:00 09/26/24 08:44 Amlodipine Besylate 5 Mg Tablet PO 5 mg DAILY JERRY Administration Amoxicillin/Clavulanate Potassium 1 tablet 09/25/24 21:00 09/26/24 08:44 Amoxicillin/Clavulanate K 875-125 Mg Tab PO 09/29/24 09:01 1 tablet Q12HR JERRY Administration Artificial Tears 1 drop 09/23/24 09:00 09/26/24 08:44 Artificial Tears Ophth Soln 15 Ml Bottle EACH EYE 1 drop BID JERRY Administration Aspirin 81 mg 09/23/24 09:00 09/26/24 08:46 Aspirin 81 Mg Enteric Tablet PO 81 mg DAILY JERRY Administration Atorvastatin Calcium 40 mg 09/23/24 21:00 09/25/24 20:22 Atorvastatin 40 Mg Tablet PO 40 mg HS JERRY Administration Azelastine HCl 1 spray 09/23/24 09:00 09/26/24 08:46 Azelastine Hcl Nasal 0.1% 137 Mcg/Spr 30 Ml Btl NASAL 1 spray Q12HR JERRY Administration Azithromycin 500 mg 09/24/24 21:00 09/25/24 20:22 Azithromycin 250 Mg Tablet PO 09/26/24 21:01 500 mg DAILY@2100 JERRY Administration Baclofen 10 mg 09/23/24 09:00 09/26/24 12:15 Baclofen 10 Mg Tablet PO 10 mg TID JERRY Administration Bisacodyl 10 mg 09/23/24 01:44 Bisacodyl 10 Mg Suppository RECTAL DAILY PRN Constipation Brimonidine Tartrate 1 drop 09/23/24 09:00 09/26/24 08:46 Brimonidine Tartrate 0.2% Op Soln 5 Ml Btl EACH EYE 1 drop BID JERRY Administration Dextrose 12.5 gm 09/23/24 11:26 Dextrose 50% 25 Gm/50 Ml Syringe IV PUSH PRN PRN Hypoglycemia Protocol Diclofenac Sodium 1 applic 09/23/24 09:00 09/26/24 08:46 Diclofenac Sodium 1% 100 Gm Gel (*Bk) TOPICAL 1 applic BID JERRY Administration Duloxetine HCl 60 mg 09/23/24 09:00 09/26/24 08:45 Duloxetine Hcl 60 Mg Capsule.Dr PO 60 mg DAILY JERRY Administration Empagliflozin 25 mg 09/23/24 09:00 09/26/24 08:45 Empagliflozin 25 Mg Tablet PO 25 mg DAILY EJRRY Administration Febuxostat 40 mg 09/23/24 09:00 09/26/24 08:44 Febuxostat 40 Mg Tablet PO 40 mg DAILY JERRY Administration Ferrous Gluconate 324 mg 09/23/24 09:00 09/26/24 08:46 Ferrous Gluconate 324 Mg Tablet PO 324 mg DAILY JERRY Administration Flumazenil 0.2 mg 09/24/24 15:27 Flumazenil 0.5 Mg/5 Ml Vial IV PUSH PRN PRN Sedation from ativan Glucagon 1 mg 09/23/24 11:26 Glucagon For Inj 1 Mg Vial IM PRN PRN Hypoglycemia Protocol Glucose 15 gm 09/23/24 11:26 Glucose Oral Gel 15 Gm Of Glucse In 37.5 Gm Tube PO PRN PRN Hypoglycemia Protocol Guaifenesin 600 mg 09/24/24 12:30 09/26/24 08:45 Guaifenesin 12 Hr 600 Mg Tabcr PO 10/01/24 12:29 600 mg Q12HR JERRY Administration Guaifenesin/Dextromethorphan 5 ml 09/24/24 14:36 09/24/24 14:46 Guaifenesin/Dextromethorphan 10 Ml Udc PO 5 ml Q4H PRN Administration Cough Dextrose 1,000 mls @ 100 mls/hr 09/23/24 11:26 Dextrose 5% 1,000 Ml IVPB PRN PRN Hypoglycemia Protocol Insulin Aspart 3 units 09/23/24 06:30 09/26/24 12:10 Insulin Aspart (*Bkc) 100 Units/Ml SUB-Q 10/23/24 06:29 3 units AC JERRY Administration Insulin Aspart 4 - 8 units 09/23/24 12:00 09/26/24 12:10 Insulin Aspart (*Bkc) 100 Units/Ml SUB-Q 5 units TIDWM JERRY Administration Protocol Insulin Aspart 2 - 4 units 09/23/24 21:00 09/25/24 20:24 Insulin Aspart (*Bkc) 100 Units/Ml SUB-Q 2 units HS JERRY Administration Protocol Insulin Glargine 12 units 09/23/24 21:00 09/25/24 20:25 Insulin Glargine (*Bkc) 100 Units/Ml SUB-Q 12 units HS JERRY Administration Latanoprost 1 drop 09/23/24 21:00 09/25/24 20:35 Latanoprost 0.005% Op Soln 2.5 Ml Btl EACH EYE 1 drop HS JERRY Administration Levetiracetam 1,500 mg 09/25/24 21:00 09/26/24 08:44 Levetiracetam 500 Mg Tablet PO 1,500 mg Q12HR JERRY Administration Levothyroxine Sodium 112 mcg 09/23/24 06:30 09/26/24 06:25 Levothyroxine Sodium 112 Mcg Tablet PO 112 mcg DAILY@0630 JERRY Administration Levothyroxine Sodium 25 mcg 09/23/24 06:30 09/26/24 06:25 Levothyroxine Sodium 25 Mcg Tablet PO 25 mcg DAILY@0630 JERRY Administration Loratadine 10 mg 09/23/24 09:00 09/26/24 08:44 Loratadine 10 Mg Tablet PO 10/23/24 08:59 10 mg DAILY JERRY Administration Lorazepam 2 mg 09/24/24 16:00 Lorazepam Inj (*Crx) 2 Mg/Ml Vial IV PUSH Q4H PRN seizure Magnesium Hydroxide 30 ml 09/23/24 01:44 Magnesium Hydroxide Susp 30 Ml Udc PO HS PRN Constipation Magnesium Oxide 400 mg 09/23/24 09:00 09/26/24 08:45 Magnesium Oxide 400 Mg Tablet PO 400 mg DAILY JERRY Administration Melatonin 5 mg 09/23/24 21:00 09/25/24 20:24 Melatonin 5 Mg Tablet PO 5 mg HS JERRY Administration Metoprolol Succinate 25 mg 09/23/24 09:00 09/26/24 08:45 Metoprolol Succinate Ext Rel 25 Mg Tabcr PO 25 mg DAILY JERRY Administration Miconazole Nitrate 1 applic 09/23/24 21:00 09/25/24 20:34 Miconazole Nitrate 2% Cream 30 Gm Tube TOPICAL 1 applic HS [facility] Administration Pantoprazole Sodium 40 mg 09/23/24 09:00 09/26/24 08:45 Pantoprazole 40 Mg Tablet PO 10/23/24 08:59 40 mg DAILY JERRY Administration Phenazopyridine HCl 100 mg 09/23/24 09:00 09/26/24 12:15 Phenazopyridine Hcl 100 Mg Tablet PO 100 mg TID JERRY Administration Polyethylene Glycol 17 gm 09/23/24 01:44 Polyethylene Glycol 3350 17 Gm Powd.Pack PO DAILY PRN Constipation Pregabalin 75 mg 09/23/24 09:00 09/26/24 08:44 Pregabalin (*Crx) 75 Mg Capsule PO 75 mg BID JERRY Administration Primidone 50 mg 09/23/24 09:00 09/26/24 12:15 Primidone 50 Mg Tablet PO 50 mg TID JERRY Administration Tamsulosin HCl 0.8 mg 09/23/24 21:00 09/25/24 20:22 Tamsulosin Hcl 0.4 Mg Capsule PO 0.8 mg HS JERRY Administration Tramadol HCl 100 mg 09/23/24 01:44 09/25/24 20:25 Tramadol Hcl (*Crx) 50 Mg Tablet PO 100 mg Q8H PRN Administration pain 4-6 Radiology Results: ITS Impressions Chest X-Ray 09/22/24 18:22 IMPRESSION: 1. Stable airspace opacities in left lower lung zone, consistent with atelectasis versus pneumonia. 2. Mild pulmonary edema. 3. Cardiomegaly. Head CT 09/22/24 18:41 IMPRESSION: 1. 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 Labs Labs: Laboratory Results - last 24 hr 09/25/24 09/25/24 09/25/24 06:23 16:20 19:23 WBC RBC Hgb Hct MCV MCH MCHC RDW Plt Count MPV Immature Gran % (Auto) Neut % (Auto) Lymph % (Auto) [place] % (Auto) Eos % (Auto) Baso % (Auto) Lymph # (Auto) [place] # (Auto) Eos # (Auto) Baso # (Auto) Abs Immat Gran (auto) Absolute Neuts (auto) Absolute Nucleated RBC Nucleated RBC % % Immature Plt Fraction Sodium Potassium Chloride Carbon Dioxide Anion Gap BUN Creatinine Estim Creat Clear Calc Estimated GFR Glucose POC Capillary Glucose 184 H 237 H Calcium Total Bilirubin AST ALT Alkaline Phosphatase Total Protein Albumin Vitamin D 25-Hydroxy 24.5 09/26/24 09/26/24 09/26/24 06:21 07:11 11:12 WBC 7.4 RBC 4.61 Hgb 14.1 Hct 44.1 MCV 95.7 MCH 30.6 MCHC 32.0 RDW 15.3 H Plt Count 100 L MPV 11.5 H Immature Gran % (Auto) 0.7 H Neut % (Auto) 69.1 Lymph % (Auto) 15.1 L [place] % (Auto) 10.6 H Eos % (Auto) 3.8 Baso % (Auto) 0.7 Lymph # (Auto) 1.12 [place] # (Auto) 0.8 H Eos # (Auto) 0.3 Baso # (Auto) 0.1 Abs Immat Gran (auto) 0.05 H Absolute Neuts (auto) 5.2 Absolute Nucleated RBC 0.000 Nucleated RBC % 0.0 % Immature Plt Fraction 5.7 Sodium 138 Potassium 4.2 Chloride 103 Carbon Dioxide 27 Anion Gap 8 BUN 40 H Creatinine 1.20 Estim Creat Clear Calc 76 Estimated GFR > 60 Glucose 151 H POC Capillary Glucose 169 H 261 H Calcium 8.5 Total Bilirubin 0.7 AST 28 ALT 17 Alkaline Phosphatase 113 Total Protein 8.0 Albumin 3.7 Vitamin D 25-Hydroxy Quality VTE Prophylaxis VTE prophylaxis: mechanical ordered
[2024-09-26 16:24] LABS: Glucose Point of Care 180 mg/dl (65-105)
[2024-09-26] MEDS: TAMSULOSIN HCL 0.4 MG CAPSULE 0.8 MG PO (21:03)
[2024-09-26] MEDS: ATORVASTATIN 40 MG TABLET PO (21:03)
[2024-09-26] MEDS: MELATONIN 5 MG TABLET PO (21:03)
[2024-09-26] MEDS: AZITHROMYCIN 250 MG TABLET 500 MG PO (21:03)
[2024-09-26] MEDS: LATANOPROST 0.005% OP SOLN 2.5 ML BTL 1 DROP EACH EYE (21:04)
[2024-09-26] MEDS: MICONAZOLE NITRATE 2% CREAM 30 GM TUBE 1 APPLIC TOPICAL (21:04)
[2024-09-26] MEDS: INSULIN GLARGINE (*BKC) 100 UNITS/ML 12 UNITS SUB-Q (21:06)
[2024-09-26] MEDS: traMADol HCL (*CRX) 50 MG TABLET 100 MG PO (21:14)
[2024-09-26 22:16] LABS: Glucose Point of Care 178 mg/dl (65-105)
[2024-09-27] VITALS (9 sets, daily range): BP systolic 98–115; BP diastolic 61–70; PULSE 61–72; RESP 12–18; TEMP 36.3–36.4; O2SAT 93–95
[2024-09-27] MEDS: ACETAMINOPHEN 500 MG TABLET 1000 MG PO (03:10)
[2024-09-27] MEDS: LEVOTHYROXINE SODIUM 112 MCG TABLET PO (05:38)
[2024-09-27] MEDS: traMADol HCL (*CRX) 50 MG TABLET 100 MG PO ×2 (05:40→13:15)
[2024-09-27] MEDS: LEVOTHYROXINE SODIUM 25 MCG TABLET PO (06:10)
[2024-09-27 06:22] LABS: Basophils Absolute Auto 0.1 K/mm3 (0.0-0.1); Basophils Percent Auto 0.7 % (0.2-1.2); Eosinophils Absolute Auto 0.2 K/mm3 (0-0.3); Eosinophils Percent Auto 3.2 % (0-4.4); Hematocrit 42.8 % (42.0-52.0); Hemoglobin 14.1 g/dL (14.0-18.0); Immature Granulocyte Absolute 0.09 K/mm3 (0.00-0.031); Immature Granulocyte Percent A 1.2 % (0-0.5); Lymphocytes Absolute Auto 1.09 K/mm3 (0.9-3.2); Lymphocytes Percent Auto 14.5 % (18.3-44.2); Mean Corpuscular HGB Conc 32.9 g/dl (32-36); Mean Corpuscular Hemoglobin 31.1 pg (26-34); Mean Corpuscular Volume 94.3 fl (80-100); Mean Platelet Volume 12.1 fl (7.4-10.4); Monocytes Absolute Auto 0.8 K/mm3 (0.1-0.6); Monocytes Percent Auto 10.1 % (2.6-8.5); Neutrophils Absolute Auto 5.3 K/mm3 (1.3-6.7); Neutrophils Percent Auto 70.3 % (45.5-73.1); Platelet Count Result 104 k/mm3 (150-375); Red Blood Count 4.54 M/mm3 (4.6-6.20); Red Cell Distribution Width 15.3 % (11.5-14.5); White Blood Count 7.5 K/mm3 (4.5-10.0)
[2024-09-27 06:38] LABS: Alanine Aminotransferase 21 U/L (6-50); Albumin Level 3.9 g/dL (3.5-5.1); Alkaline Phosphatase 133 U/L (38-126); Anion Gap 8 mmol/L (4-12); Aspartate Amino Transferase 32 U/L (17-59); Bilirubin,Total 0.9 mg/dL (0.2-1.3); Blood Urea Nitrogen 44 mg/dL (9-20); Calcium 8.7 mg/dL (8.4-10.2); Carbon Dioxide 25 mmol/L (22-30); Chloride 103 mmol/L (98-107); Estimated CRCL calculation 76 ml/min; Estimated Glomerular Filt Rate > 60; Glucose 150 mg/dL (65-110); Potassium 4.4 mmol/L (3.4-5.0); Sodium 136 mmol/L (137-145)
[2024-09-27 08:34] LABS: Glucose Point of Care 152 mg/dl (65-105)
[2024-09-27] MEDS: guaiFENesin 12 HR 600 MG TABCR PO ×2 (08:56→21:46)
[2024-09-27] MEDS: BACLOFEN 10 MG TABLET PO ×3 (08:57→16:57)
[2024-09-27] MEDS: METOPROLOL SUCCINATE EXT REL 25 MG TABCR PO (08:57)
[2024-09-27] MEDS: PREGABALIN (*CRX) 75 MG CAPSULE PO ×2 (08:57→16:57)
[2024-09-27] MEDS: DULoxetine HCL 60 MG CAPSULE.DR PO (08:57)
[2024-09-27] MEDS: amLODIPine BESYLATE 5 MG TABLET PO (08:57)
[2024-09-27] MEDS: levETIRAcetam 500 MG TABLET 1500 MG PO ×2 (08:57→21:46)
[2024-09-27] MEDS: MAGNESIUM OXIDE 400 MG TABLET PO (08:57)
[2024-09-27] MEDS: ASPIRIN 81 MG ENTERIC TABLET PO (08:57)
[2024-09-27] MEDS: FERROUS GLUCONATE 324 MG TABLET PO (08:57)
[2024-09-27] MEDS: PANTOPRAZOLE 40 MG TABLET PO (08:57)
[2024-09-27] MEDS: EMPAGLIFLOZIN 25 MG TABLET PO (08:57)
[2024-09-27] MEDS: AMOXICILLIN/CLAVULANATE K 875-125 MG TAB 1 TABLET PO ×2 (08:57→21:46)
[2024-09-27] MEDS: LORATADINE 10 MG TABLET PO (08:57)
[2024-09-27] MEDS: PRIMIDONE 50 MG TABLET PO ×3 (08:57→16:57)
[2024-09-27] MEDS: PHENAZOPYRIDINE HCL 100 MG TABLET PO ×3 (08:57→16:57)
[2024-09-27] MEDS: INSULIN ASPART (*BKC) 100 UNITS/ML SUB-Q ×4 (08:58→21:51)
[2024-09-27] MEDS: FEBUXOSTAT 40 MG TABLET PO (08:58)
[2024-09-27] MEDS: BRIMONIDINE TARTRATE 0.2% OP SOLN 5 ML BTL 1 DROP EACH EYE ×2 (08:59→17:01)
[2024-09-27] MEDS: ARTIFICIAL TEARS OPHTH SOLN 15 ML BOTTLE 1 DROP EACH EYE ×2 (08:59→17:00)
[2024-09-27] MEDS: AZELASTINE HCL NASAL 0.1% 137 MCG/SPR 30 ML BTL 1 SPRAY NASAL ×2 (08:59→21:46)
[2024-09-27] MEDS: DICLOFENAC SODIUM 1% 100 GM GEL (*BKC) 1 APPLIC TOPICAL ×2 (08:59→17:01)
--- NOTE | 2024-09-27 11:04 | P.PNIM_ITS ---
Progress Note: A&P Assessment and Plan (1) Breakthrough seizure: Code(s): G40.919 - Epilepsy, unspecified, intractable, without status epilepticus Status: Acute Assessment and Plan: * patient was loaded with Keppra * likely secondary to acute infection * CT head reviewed * Neurology following * Patient having seizures 09/24 afternoon the first was about 2 minutes followed by a couple 30 second to 1 minute seizures. Patient given a total of Ativan 4 mg IVP. * Neuro aware and ordered Levetiracetam 1,000 mg IVPB bolus then Levetiracetam 2,000 mg IVPB q12. Ordered Lorazepam 5 mg ivp q 4 PRN for seizures. * Currently Levetiracetam 1,500 mg PO q 12. * Seizure precautions and suction set up * Telemetry- SR 69 (2) Pneumonia: Qualifiers: Laterality: bilateral Code(s): J18.9 - Pneumonia, unspecified organism Status: Acute Assessment and Plan: * Augmentin 875-125 mg PO q 12, completed Azithromycin 500 mg PO daily treatment. * Mucinex 600 mg PO q 12. * Patient weaned to room air with Sa02 96%. (3) Urinary tract infection: Code(s): N39.0 - Urinary tract infection, site not specified Status: Ruled-out Assessment and Plan: * Urine culture showed no growth * encourage hydration. (4) Ischemic cardiomyopathy: Code(s): I25.5 - Ischemic cardiomyopathy Status: Chronic Assessment and Plan: * continue to monitor * appears euvolemic (5) Type 2 diabetes mellitus with hyperglycemia, with long-term current use of insulin: Code(s): E11.65 - Type 2 diabetes mellitus with hyperglycemia; Z79.4 - alf (current) use of insulin Status: Chronic Assessment and Plan: * resume home meds * continue to monitor (6) Generalized weakness: Code(s): R53.1 - Weakness Status: Acute Assessment and Plan: * likely secondary to chronic illness with acute superimposed infection * PT/OT (7) Seizure disorder: Code(s): G40.909 - Epilepsy, unspecified, not intractable, without status epilepticus Status: Acute Assessment and Plan: * Neurology consulted * Patient having seizures this on 09/24 the first was about 2 minutes followed by a couple 30 second to 1 minute seizures. Patient given a total of Ativan 4 mg IVP. * Neuro aware and ordered Levetiracetam 1,000 mg IVPB bolus then Levetiracetam 2,000 mg IVPB q12. Ordered Lorazepam 5 mg ivp q 4 PRN for seizures. * Currently Levetiracetam 1,500 mg PO q 12. * Seizure precautions and suction set up * Keppra level ordered. (8) Chronic heel ulcer: Code(s): L97.409 - Non-pressure chronic ulcer of unspecified heel and midfoot with unspecified severity Status: Acute Assessment and Plan: * local care (9) CKD (chronic kidney disease) stage 3, GFR 30-59 ml/min: Code(s): N18.30 - Chronic kidney disease, stage 3 unspecified Status: Chronic Assessment and Plan: * BUN 44, Creatinine 1.20, GFR >60. (10) Neuropathy: Code(s): G62.9 - Polyneuropathy, unspecified Status: Acute Assessment and Plan: * unchanged Subjective Date/time seen: 09/27/24 11:04 Interval history: Patient report pain in left hand and bilateral legs is a 6 , constant, and aching. Patient denies chest pain, palpitations, headache, dizziness, nausea, or vomiting. Review of Systems Review of Systems: All systems reviewed & are unremarkable except as noted in HPI and below Exam Const: General: no acute distress and uncomfortable Resp: Effort & Inspection: normal respiratory effort Auscultation: diminished lung sounds Cardio: Rate: regular rate Rhythm: regular rhythm Other: Telemetry-SR 69 GI: GI Palp: Yes Soft to palpation Auscultation: normal bowel sounds Skin: Other: Brown 1 1/2 inch area to medial aspect of right great toe. No drainage. Scattered scabs to upper and lower extremities. Neuro: Speech: normal speech Extrem: General: no pedal edema Psych: Affect: normal affect Objective Data Vital Signs Vital Signs: Vital Signs - 24 hr 09/26/24 15:47 09/26/24 12:00 09/26/24 16:00 Temperature 97.6 F Pulse Rate 67 66 65 Respiratory Rate 16 Blood Pressure 113/66 Pulse Oximetry 96 Oxygen Delivery 09/26/24 21:56 09/26/24 20:00 09/27/24 00:00 Temperature 97.8 F Pulse Rate 68 71 71 Respiratory Rate 16 Blood Pressure 123/72 Pulse Oximetry 97 Oxygen Delivery 09/27/24 04:00 09/27/24 05:10 09/27/24 08:03 Temperature 97.4 F L Pulse Rate 68 69 70 Respiratory Rate 16 Blood Pressure 113/70 Pulse Oximetry 95 Oxygen Delivery 09/27/24 08:58 Temperature Pulse Rate Respiratory Rate Blood Pressure Pulse Oximetry Oxygen Delivery Room Air Intake/Output Intake/Output: Intake & Output 09/24/24 09/25/24 09/26/24 09/27/24 23:59 23:59 23:59 23:59 Intake Total 1960 2820 2390 650 Output Total 1725 2600 2200 1225 Balance 235 220 190 -575 Meds/Results Medications: Active Medications Generic Name Dose Route Start Last Admin Trade Name Freq PRN Reason Stop Dose Admin Acetaminophen 1,000 mg 09/23/24 01:44 09/27/24 03:10 Acetaminophen 500 Mg Tablet PO 1,000 mg Q8H PRN Administration Pain (Scale Score 1-3) Albuterol/Ipratropium 3 ml 09/23/24 01:44 09/24/24 14:20 Ipratropium 0.5 Mg/Albuterol Sulfate 2.5 Mg Ampul.Neb 3 Ml INHALATION 3 ml Q6HRT PRN Administration Shortness Of Breath Amlodipine Besylate 5 mg 09/23/24 09:00 09/27/24 08:57 Amlodipine Besylate 5 Mg Tablet PO 5 mg DAILY JERRY Administration Amoxicillin/Clavulanate Potassium 1 tablet 09/25/24 21:00 09/27/24 08:57 Amoxicillin/Clavulanate K 875-125 Mg Tab PO 09/29/24 09:01 1 tablet Q12HR JERRY Administration Artificial Tears 1 drop 09/23/24 09:00 09/27/24 08:59 Artificial Tears Ophth Soln 15 Ml Bottle EACH EYE 1 drop BID JERRY Administration Aspirin 81 mg 09/23/24 09:00 09/27/24 08:57 Aspirin 81 Mg Enteric Tablet PO 81 mg DAILY JERRY Administration Atorvastatin Calcium 40 mg 09/23/24 21:00 09/26/24 21:03 Atorvastatin 40 Mg Tablet PO 40 mg HS JERRY Administration Azelastine HCl 1 spray 09/23/24 09:00 09/27/24 08:59 Azelastine Hcl Nasal 0.1% 137 Mcg/Spr 30 Ml Btl NASAL 1 spray Q12HR JERRY Administration Baclofen 10 mg 09/23/24 09:00 09/27/24 08:57 Baclofen 10 Mg Tablet PO 10 mg TID JERRY Administration Bisacodyl 10 mg 09/23/24 01:44 Bisacodyl 10 Mg Suppository RECTAL DAILY PRN Constipation Brimonidine Tartrate 1 drop 09/23/24 09:00 09/27/24 08:59 Brimonidine Tartrate 0.2% Op Soln 5 Ml Btl EACH EYE 1 drop BID JERRY Administration Dextrose 12.5 gm 09/23/24 11:26 Dextrose 50% 25 Gm/50 Ml Syringe IV PUSH PRN PRN Hypoglycemia Protocol Diclofenac Sodium 1 applic 09/23/24 09:00 09/27/24 08:59 Diclofenac Sodium 1% 100 Gm Gel (*Bkc) TOPICAL 1 applic BID JERRY Administration Duloxetine HCl 60 mg 09/23/24 09:00 09/27/24 08:57 Duloxetine Hcl 60 Mg Capsule. PO 60 mg DAILY JERRY Administration Empagliflozin 25 mg 09/23/24 09:00 09/27/24 08:57 Empagliflozin 25 Mg Tablet PO 25 mg DAILY JERRY Administration Febuxostat 40 mg 09/23/24 09:00 09/27/24 08:58 Febuxostat 40 Mg Tablet PO 40 mg DAILY JERRY Administration Ferrous Gluconate 324 mg 09/23/24 09:00 09/27/24 08:57 Ferrous Gluconate 324 Mg Tablet PO 324 mg DAILY JERRY Administration Flumazenil 0.2 mg 09/24/24 15:27 Flumazenil 0.5 Mg/5 Ml Vial IV PUSH PRN PRN Sedation from ativan Glucagon 1 mg 09/23/24 11:26 Glucagon For Inj 1 Mg Vial IM PRN PRN Hypoglycemia Protocol Glucose 15 gm 09/23/24 11:26 Glucose Oral Gel 15 Gm Of Glucse In 37.5 Gm Tube PO PRN PRN Hypoglycemia Protocol Guaifenesin 600 mg 09/24/24 12:30 09/27/24 08:56 Guaifenesin 12 Hr 600 Mg Tabcr PO 10/01/24 12:29 600 mg Q12HR JERRY Administration Guaifenesin/Dextromethorphan 5 ml 09/24/24 14:36 09/24/24 14:46 Guaifenesin/Dextromethorphan 10 Ml Udc PO 5 ml Q4H PRN Administration Cough Dextrose 1,000 mls @ 100 mls/hr 09/23/24 11:26 Dextrose 5% 1,000 Ml IVPB PRN PRN Hypoglycemia Protocol Insulin Aspart 3 units 09/23/24 06:30 09/27/24 08:58 Insulin Aspart (*Bkc) 100 Units/Ml SUB-Q 10/23/24 06:29 3 units AC JERRY Administration Insulin Aspart 4 - 8 units 09/23/24 12:00 09/27/24 09:54 Insulin Aspart (*Bkc) 100 Units/Ml SUB-Q Not Given TIDWM JERRY Protocol Insulin Aspart 2 - 4 units 09/23/24 21:00 09/27/24 05:15 Insulin Aspart (*Bkc) 100 Units/Ml SUB-Q Not Given HS JERRY Protocol Insulin Glargine 12 units 09/23/24 21:00 09/26/24 21:06 Insulin Glargine (*Bkc) 100 Units/Ml SUB-Q 12 units HS JERRY Administration Latanoprost 1 drop 09/23/24 21:00 09/26/24 21:04 Latanoprost 0.005% Op Soln 2.5 Ml Btl EACH EYE 1 drop HS JERRY Administration Levetiracetam 1,500 mg 09/25/24 21:00 09/27/24 08:57 Levetiracetam 500 Mg Tablet PO 1,500 mg Q12HR JERRY Administration Levothyroxine Sodium 112 mcg 09/23/24 06:30 09/27/24 05:38 Levothyroxine Sodium 112 Mcg Tablet PO 112 mcg DAILY@0630 JERRY Administration Levothyroxine Sodium 25 mcg 09/23/24 06:30 09/27/24 06:10 Levothyroxine Sodium 25 Mcg Tablet PO 25 mcg DAILY@0630 JERRY Administration Loratadine 10 mg 09/23/24 09:00 09/27/24 08:57 Loratadine 10 Mg Tablet PO 10/23/24 08:59 10 mg DAILY JERRY Administration Lorazepam 2 mg 09/24/24 16:00 Lorazepam Inj (*Crx) 2 Mg/Ml Vial IV PUSH Q4H PRN seizure Magnesium Hydroxide 30 ml 09/23/24 01:44 Magnesium Hydroxide Susp 30 Ml Udc PO HS PRN Constipation Magnesium Oxide 400 mg 09/23/24 09:00 09/27/24 08:57 Magnesium Oxide 400 Mg Tablet PO 400 mg DAILY JERRY Administration Melatonin 5 mg 09/23/24 21:00 09/26/24 21:03 Melatonin 5 Mg Tablet PO 5 mg HS JERRY Administration Metoprolol Succinate 25 mg 09/23/24 09:00 09/27/24 08:57 Metoprolol Succinate Ext Rel 25 Mg Tabcr PO 25 mg DAILY JERRY Administration Miconazole Nitrate 1 applic 09/23/24 21:00 09/26/24 21:04 Miconazole Nitrate 2% Cream 30 Gm Tube TOPICAL 1 applic HS [facility] Administration Pantoprazole Sodium 40 mg 09/23/24 09:00 09/27/24 08:57 Pantoprazole 40 Mg Tablet PO 10/23/24 08:59 40 mg DAILY JERRY Administration Phenazopyridine HCl 100 mg 09/23/24 09:00 09/27/24 08:57 Phenazopyridine Hcl 100 Mg Tablet PO 100 mg TID JERRY Administration Polyethylene Glycol 17 gm 09/23/24 01:44 Polyethylene Glycol 3350 17 Gm Powd.Pack PO DAILY PRN Constipation Pregabalin 75 mg 09/23/24 09:00 09/27/24 08:57 Pregabalin (*Crx) 75 Mg Capsule PO 75 mg BID JERRY Administration Primidone 50 mg 09/23/24 09:00 09/27/24 08:57 Primidone 50 Mg Tablet PO 50 mg TID JERRY Administration Tamsulosin HCl 0.8 mg 09/23/24 21:00 09/26/24 21:03 Tamsulosin Hcl 0.4 Mg Capsule PO 0.8 mg HS [facility] Administration Tramadol HCl 100 mg 09/23/24 01:44 09/27/24 05:40 Tramadol Hcl (*Crx) 50 Mg Tablet PO 100 mg Q8H PRN Administration pain 4-6 Radiology Results: ITS Impressions Chest X-Ray 09/22/24 18:22 IMPRESSION: 1. Stable airspace opacities in left lower lung zone, consistent with atelectasis versus pneumonia. 2. Mild pulmonary edema. 3. Cardiomegaly. Head CT 09/22/24 18:41 IMPRESSION: 1. 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 Labs Labs: Laboratory Results - last 24 hr 1109/26/24 09/26/24 11:12 16:17 19:56 WBC RBC Hgb Hct MCV MCH MCHC RDW Plt Count MPV Immature Gran % (Auto) Neut % (Auto) Lymph % (Auto) [place] % (Auto) Eos % (Auto) Baso % (Auto) Lymph # (Auto) [place] # (Auto) Eos # (Auto) Baso # (Auto) Abs Immat Gran (auto) Absolute Neuts (auto) Absolute Nucleated RBC Nucleated RBC % Sodium Potassium Chloride Carbon Dioxide Anion Gap BUN Creatinine Estim Creat Clear Calc Estimated GFR Glucose POC Capillary Glucose 261 H 180 H 178 H Calcium Total Bilirubin AST ALT Alkaline Phosphatase Total Protein Albumin 09/27/24 09/27/24 05:26 08:31 WBC 7.5 RBC 4.54 L Hgb 14.1 Hct 42.8 MCV 94.3 MCH 31.1 MCHC 32.9 RDW 15.3 H Plt Count 104 L MPV 12.1 H Immature Gran % (Auto) 1.2 H Neut % (Auto) 70.3 Lymph % (Auto) 14.5 L [place] % (Auto) 10.1 H Eos % (Auto) 3.2 Baso % (Auto) 0.7 Lymph # (Auto) 1.09 [place] # (Auto) 0.8 H Eos # (Auto) 0.2 Baso # (Auto) 0.1 Abs Immat Gran (auto) 0.09 H Absolute Neuts (auto) 5.3 Absolute Nucleated RBC 0.000 Nucleated RBC % 0.0 Sodium 136 L Potassium 4.4 Chloride 103 Carbon Dioxide 25 Anion Gap 8 BUN 44 H Creatinine 1.20 Estim Creat Clear Calc 76 Estimated GFR > 60 Glucose 150 H POC Capillary Glucose 152 H Calcium 8.7 Total Bilirubin 0.9 AST 32 ALT 21 Alkaline Phosphatase 133 H Total Protein 8.0 Albumin 3.9 Quality VTE Prophylaxis VTE prophylaxis: mechanical ordered
[2024-09-27 11:35] LABS: Glucose Point of Care 198 mg/dl (65-105)
[2024-09-27 16:48] LABS: Glucose Point of Care 159 mg/dl (65-105)
--- NOTE | 2024-09-27 19:27 | P.PNNEUR_ITS ---
Progress Note: A&P Assessment and Plan (1) Left spastic hemiplegia: Code(s): G81.14 - Spastic hemiplegia affecting left nondominant side Status: Acute (2) Breakthrough seizure: Code(s): G40.919 - Epilepsy, unspecified, intractable, without status epilepticus Status: Acute (3) Type 2 diabetes mellitus with hyperglycemia: Qualifiers: Diabetes mellitus [facility] insulin use: with [facility] use Qualified Code(s): E11.65 - Type 2 diabetes mellitus with hyperglycemia; Z79.4 - prison (current) use of insulin Code(s): E11.65 - Type 2 diabetes mellitus with hyperglycemia Status: Acute Plan The patient is doing well with the Keppra 1500 mg twice a day and out suggest to continue with it. Patient has had 6 or 7 seizures in the last 1 year. He seems to tolerating current does well. I shall be glad to see him for follow-up in future. Subjective Date/time seen: 09/27/24 19:27 Interval history: Patient has not had any further seizures and is doing well with the current dose of Keppra 1500 mg twice a day. He was diagnosed to have pneumonia and urinary tract infection for which he is on oral antibiotics and is stable. Review of Systems Review of Systems: All systems reviewed & are unremarkable except as noted in HPI and below Exam Narrative: Pleasant and cooperative. Persistent left hemiparesis. No other additional new findings. Objective Data Vital Signs Vital Signs: Vital Signs - 24 hr 09/26/24 21:56 09/26/24 20:00 09/27/24 00:00 Temperature 97.8 F Pulse Rate 68 71 71 Respiratory Rate 16 Blood Pressure 123/72 Pulse Oximetry 97 Oxygen Delivery 09/27/24 04:00 09/27/24 05:10 09/27/24 08:03 Temperature 97.4 F L Pulse Rate 68 69 70 Respiratory Rate 16 Blood Pressure 113/70 Pulse Oximetry 95 Oxygen Delivery 09/27/24 08:58 09/27/24 12:00 09/27/24 14:16 Temperature 97.6 F Pulse Rate 72 66 Respiratory Rate 12 Blood Pressure 115/70 Pulse Oximetry 95 Oxygen Delivery Room Air 09/27/24 16:00 Temperature Pulse Rate 66 Respiratory Rate Blood Pressure Pulse Oximetry Oxygen Delivery Intake/Output Intake/Output: Intake & Output 09/24/24 09/25/24 09/26/24 11/23/24 23:59 23:59 23:59 23:59 Intake Total 1960 2820 2390 1960 Output Total 1725 2600 2200 2325 Balance 235 220 190 -365 Meds/Results Medications: Active Medications Generic Name Dose Route Start Last Admin Trade Name Freq PRN Reason Stop Dose Admin Acetaminophen 1,000 mg 09/23/24 01:44 09/27/24 03:10 Acetaminophen 500 Mg Tablet PO 1,000 mg Q8H PRN Administration Pain (Scale Score 1-3) Albuterol/Ipratropium 3 ml 09/23/24 01:44 09/24/24 14:20 Ipratropium 0.5 Mg/Albuterol Sulfate 2.5 Mg Ampul.Neb 3 Ml INHALATION 3 ml Q6HRT PRN Administration Shortness Of Breath Amlodipine Besylate 5 mg 09/23/24 09:00 09/27/24 08:57 Amlodipine Besylate 5 Mg Tablet PO 5 mg DAILY JERRY Administration Amoxicillin/Clavulanate Potassium 1 tablet 09/25/24 21:00 09/27/24 08:57 Amoxicillin/Clavulanate K 875-125 Mg Tab PO 09/29/24 09:01 1 tablet Q12HR JERRY Administration Artificial Tears 1 drop 09/23/24 09:00 09/27/24 17:00 Artificial Tears Ophth Soln 15 Ml Bottle EACH EYE 1 drop BID JERRY Administration Aspirin 81 mg 09/23/24 09:00 09/27/24 08:57 Aspirin 81 Mg Enteric Tablet PO 81 mg DAILY JERRY Administration Atorvastatin Calcium 40 mg 09/23/24 21:00 09/26/24 21:03 Atorvastatin 40 Mg Tablet PO 40 mg HS JERRY Administration Azelastine HCl 1 spray 09/23/24 09:00 09/27/24 08:59 Azelastine Hcl Nasal 0.1% 137 Mcg/Spr 30 Ml Btl NASAL 1 spray Q12HR JERRY Administration Baclofen 10 mg 09/23/24 09:00 09/27/24 16:57 Baclofen 10 Mg Tablet PO 10 mg TID JERRY Administration Bisacodyl 10 mg 09/23/24 01:44 Bisacodyl 10 Mg Suppository RECTAL DAILY PRN Constipation Brimonidine Tartrate 1 drop 09/23/24 09:00 09/27/24 17:01 Brimonidine Tartrate 0.2% Op Soln 5 Ml Btl EACH EYE 1 drop BID JERRY Administration Dextrose 12.5 gm 09/23/24 11:26 Dextrose 50% 25 Gm/50 Ml Syringe IV PUSH PRN PRN Hypoglycemia Protocol Diclofenac Sodium 1 applic 09/23/24 09:00 09/27/24 17:01 Diclofenac Sodium 1% 100 Gm Gel (*Bkc) TOPICAL 1 applic BID JERRY Administration Duloxetine HCl 60 mg 09/23/24 09:00 09/27/24 08:57 Duloxetine Hcl 60 Mg Capsule. PO 60 mg DAILY JERRY Administration Empagliflozin 25 mg 09/23/24 09:00 09/27/24 08:57 Empagliflozin 25 Mg Tablet PO 25 mg DAILY JERRY Administration Febuxostat 40 mg 09/23/24 09:00 09/27/24 08:58 Febuxostat 40 Mg Tablet PO 40 mg DAILY JERRY Administration Ferrous Gluconate 324 mg 09/23/24 09:00 09/27/24 08:57 Ferrous Gluconate 324 Mg Tablet PO 324 mg DAILY JERRY Administration Flumazenil 0.2 mg 09/24/24 15:27 Flumazenil 0.5 Mg/5 Ml Vial IV PUSH PRN PRN Sedation from ativan Glucagon 1 mg 09/23/24 11:26 Glucagon For Inj 1 Mg Vial IM PRN PRN Hypoglycemia Protocol Glucose 15 gm 09/23/24 11:26 Glucose Oral Gel 15 Gm Of Glucse In 37.5 Gm Tube PO PRN PRN Hypoglycemia Protocol Guaifenesin 600 mg 09/24/24 12:30 09/27/24 08:56 Guaifenesin 12 Hr 600 Mg Tabcr PO 10/01/24 12:29 600 mg Q12HR JERRY Administration Guaifenesin/Dextromethorphan 5 ml 09/24/24 14:36 09/24/24 14:46 Guaifenesin/Dextromethorphan 10 Ml Udc PO 5 ml Q4H PRN Administration Cough Dextrose 1,000 mls @ 100 mls/hr 09/23/24 11:26 Dextrose 5% 1,000 Ml IVPB PRN PRN Hypoglycemia Protocol Insulin Aspart 3 units 09/23/24 06:30 09/27/24 16:57 Insulin Aspart (*Bkc) 100 Units/Ml SUB-Q 10/23/24 06:29 3 units AC JERRY Administration Insulin Aspart 4 - 8 units 09/23/24 12:00 09/27/24 17:01 Insulin Aspart (*Bkc) 100 Units/Ml SUB-Q Not Given TIDWM [facility] Protocol Insulin Aspart 2 - 4 units 09/23/24 21:00 09/27/24 05:15 Insulin Aspart (*Bkc) 100 Units/Ml SUB-Q Not Given HS [facility] Protocol Insulin Glargine 12 units 09/23/24 21:00 09/26/24 21:06 Insulin Glargine (*Bkc) 100 Units/Ml SUB-Q 12 units HS JERRY Administration Latanoprost 1 drop 09/23/24 21:00 09/26/24 21:04 Latanoprost 0.005% Op Soln 2.5 Ml Btl EACH EYE 1 drop HS JERRY Administration Levetiracetam 1,500 mg 09/25/24 21:00 09/27/24 08:57 Levetiracetam 500 Mg Tablet PO 1,500 mg Q12HR JERRY Administration Levothyroxine Sodium 112 mcg 09/23/24 06:30 09/27/24 05:38 Levothyroxine Sodium 112 Mcg Tablet PO 112 mcg DAILY@0630 JERRY Administration Levothyroxine Sodium 25 mcg 09/23/24 06:30 09/27/24 06:10 Levothyroxine Sodium 25 Mcg Tablet PO 25 mcg DAILY@0630 JERRY Administration Loratadine 10 mg 09/23/24 09:00 09/27/24 08:57 Loratadine 10 Mg Tablet PO 10/23/24 08:59 10 mg DAILY JERRY Administration Lorazepam 2 mg 09/24/24 16:00 Lorazepam Inj (*Crx) 2 Mg/Ml Vial IV PUSH Q4H PRN seizure Magnesium Hydroxide 30 ml 09/23/24 01:44 Magnesium Hydroxide Susp 30 Ml Udc PO HS PRN Constipation Magnesium Oxide 400 mg 09/23/24 09:00 09/27/24 08:57 Magnesium Oxide 400 Mg Tablet PO 400 mg DAILY JERRY Administration Melatonin 5 mg 09/23/24 21:00 09/26/24 21:03 Melatonin 5 Mg Tablet PO 5 mg HS JERRY Administration Metoprolol Succinate 25 mg 09/23/24 09:00 09/27/24 08:57 Metoprolol Succinate Ext Rel 25 Mg Tabcr PO 25 mg DAILY JERRY Administration Miconazole Nitrate 1 applic 09/23/24 21:00 09/26/24 21:04 Miconazole Nitrate 2% Cream 30 Gm Tube TOPICAL 1 applic HS JERRY Administration Pantoprazole Sodium 40 mg 09/23/24 09:00 09/27/24 08:57 Pantoprazole 40 Mg Tablet PO 10/23/24 08:59 40 mg DAILY JERRY Administration Phenazopyridine HCl 100 mg 09/23/24 09:00 09/27/24 16:57 Phenazopyridine Hcl 100 Mg Tablet PO 100 mg TID JERRY Administration Polyethylene Glycol 17 gm 09/23/24 01:44 Polyethylene Glycol 3350 17 Gm Powd.Pack PO DAILY PRN Constipation Pregabalin 75 mg 09/23/24 09:00 09/27/24 16:57 Pregabalin (*Crx) 75 Mg Capsule PO 75 mg BID JERRY Administration Primidone 50 mg 09/23/24 09:00 09/27/24 16:57 Primidone 50 Mg Tablet PO 50 mg TID JERRY Administration Tamsulosin HCl 0.8 mg 09/23/24 21:00 09/26/24 21:03 Tamsulosin Hcl 0.4 Mg Capsule PO 0.8 mg HS JERRY Administration Tramadol HCl 100 mg 09/23/24 01:44 09/27/24 13:15 Tramadol Hcl (*Crx) 50 Mg Tablet PO 100 mg Q8H PRN Administration pain 4-6 Radiology Results: ITS Impressions Chest X-Ray 09/22/24 18:22 IMPRESSION: 1. Stable airspace opacities in left lower lung zone, consistent with atelectasis versus pneumonia. 2. Mild pulmonary edema. 3. Cardiomegaly. Head CT 09/22/24 18:41 IMPRESSION: 1. 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 Labs Labs: Laboratory Results - last 24 hr 09/26/24 09/27/24 09/27/24 19:56 05:26 08:31 WBC 7.5 RBC 4.54 L Hgb 14.1 Hct 42.8 MCV 94.3 MCH 31.1 MCHC 32.9 RDW 15.3 H Plt Count 104 L MPV 12.1 H Immature Gran % (Auto) 1.2 H Neut % (Auto) 70.3 Lymph % (Auto) 14.5 L [place] % (Auto) 10.1 H Eos % (Auto) 3.2 Baso % (Auto) 0.7 Lymph # (Auto) 1.09 [place] # (Auto) 0.8 H Eos # (Auto) 0.2 Baso # (Auto) 0.1 Abs Immat Gran (auto) 0.09 H Absolute Neuts (auto) 5.3 Absolute Nucleated RBC 0.000 Nucleated RBC % 0.0 Sodium 136 L Potassium 4.4 Chloride 103 Carbon Dioxide 25 Anion Gap 8 BUN 44 H Creatinine 1.20 Estim Creat Clear Calc 76 Estimated GFR > 60 Glucose 150 H POC Capillary Glucose 178 H 152 H Calcium 8.7 Total Bilirubin 0.9 AST 32 ALT 21 Alkaline Phosphatase 133 H Total Protein 8.0 Albumin 3.9 09/27/24 09/27/24 11:28 16:35 WBC RBC Hgb Hct MCV MCH MCHC RDW Plt Count MPV Immature Gran % (Auto) Neut % (Auto) Lymph % (Auto) [place] % (Auto) Eos % (Auto) Baso % (Auto) Lymph # (Auto) [place] # (Auto) Eos # (Auto) Baso # (Auto) Abs Immat Gran (auto) Absolute Neuts (auto) Absolute Nucleated RBC Nucleated RBC % Sodium Potassium Chloride Carbon Dioxide Anion Gap BUN Creatinine Estim Creat Clear Calc Estimated GFR Glucose POC Capillary Glucose 198 H 159 H Calcium Total Bilirubin AST ALT Alkaline Phosphatase Total Protein Albumin
[2024-09-27 21:25] LABS: Glucose Point of Care 202 mg/dl (65-105)
[2024-09-27] MEDS: ATORVASTATIN 40 MG TABLET PO (21:45)
[2024-09-27] MEDS: TAMSULOSIN HCL 0.4 MG CAPSULE 0.8 MG PO (21:45)
[2024-09-27] MEDS: LATANOPROST 0.005% OP SOLN 2.5 ML BTL 1 DROP EACH EYE (21:46)
[2024-09-27] MEDS: MELATONIN 5 MG TABLET PO (21:46)
[2024-09-27] MEDS: MICONAZOLE NITRATE 2% CREAM 30 GM TUBE 1 APPLIC TOPICAL (21:47)
[2024-09-27] MEDS: INSULIN GLARGINE (*BKC) 100 UNITS/ML 12 UNITS SUB-Q (21:50)
[2024-09-27] MEDS: guaiFENesin/DEXTROMETHORPHAN 10 ML UDC 5 ML PO (23:28)
[2024-09-28] VITALS (11 sets, daily range): BP systolic 100–118; BP diastolic 54–74; PULSE 61–80; RESP 16–20; TEMP 36.1–36.4; O2SAT 90–96
[2024-09-28] MEDS: traMADol HCL (*CRX) 50 MG TABLET 100 MG PO ×2 (01:49→22:46)
[2024-09-28] MEDS: ACETAMINOPHEN 500 MG TABLET 1000 MG PO (04:45)
[2024-09-28] MEDS: LEVOTHYROXINE SODIUM 25 MCG TABLET PO (05:28)
[2024-09-28] MEDS: LEVOTHYROXINE SODIUM 112 MCG TABLET PO (05:29)
[2024-09-28 06:26] LABS: Basophils Absolute Auto 0.1 K/mm3 (0.0-0.1); Basophils Percent Auto 1.2 % (0.2-1.2); Eosinophils Absolute Auto 0.2 K/mm3 (0-0.3); Hematocrit 45.2 % (42.0-52.0); Hemoglobin 14.3 g/dL (14.0-18.0); Immature Granulocyte Percent A 1.4 % (0-0.5); Immature Platelet Fraction Pct 7.8 % (0.9-11.2); Lymphocytes Absolute Auto 1.13 K/mm3 (0.9-3.2); Lymphocytes Percent Auto 15.3 % (18.3-44.2); Mean Corpuscular HGB Conc 31.6 g/dl (32-36); Mean Platelet Volume 11.9 fl (7.4-10.4); Monocytes Absolute Auto 0.8 K/mm3 (0.1-0.6); Monocytes Percent Auto 11.4 % (2.6-8.5); Neutrophils Percent Auto 67.7 % (45.5-73.1); Platelet Count Result 106 k/mm3 (150-375); Red Blood Count 4.76 M/mm3 (4.6-6.20); Red Cell Distribution Width 15.4 % (11.5-14.5); White Blood Count 7.4 K/mm3 (4.5-10.0)
[2024-09-28 06:35] LABS: Alanine Aminotransferase 32 U/L (6-50); Albumin Level 3.8 g/dL (3.5-5.1); Alkaline Phosphatase 173 U/L (38-126); Anion Gap 9 mmol/L (4-12); Aspartate Amino Transferase 43 U/L (17-59); Bilirubin,Total 0.7 mg/dL (0.2-1.3); Blood Urea Nitrogen 45 mg/dL (9-20); Calcium 8.4 mg/dL (8.4-10.2); Carbon Dioxide 24 mmol/L (22-30); Chloride 103 mmol/L (98-107); Estimated CRCL calculation 58 ml/min; Estimated Glomerular Filt Rate 43; Glucose 189 mg/dL (65-110); Potassium 4.5 mmol/L (3.4-5.0); Sodium 136 mmol/L (137-145)
[2024-09-28 07:40] LABS: Glucose Point of Care 181 mg/dl (65-105)
[2024-09-28] MEDS: BACLOFEN 10 MG TABLET PO ×3 (08:47→16:57)
[2024-09-28] MEDS: PHENAZOPYRIDINE HCL 100 MG TABLET PO (08:47)
[2024-09-28] MEDS: ASPIRIN 81 MG ENTERIC TABLET PO (08:47)
[2024-09-28] MEDS: METOPROLOL SUCCINATE EXT REL 25 MG TABCR PO (08:47)
[2024-09-28] MEDS: LORATADINE 10 MG TABLET PO (08:47)
[2024-09-28] MEDS: DULoxetine HCL 60 MG CAPSULE.DR PO (08:47)
[2024-09-28] MEDS: MAGNESIUM OXIDE 400 MG TABLET PO (08:47)
[2024-09-28] MEDS: FEBUXOSTAT 40 MG TABLET PO (08:47)
[2024-09-28] MEDS: AMOXICILLIN/CLAVULANATE K 875-125 MG TAB 1 TABLET PO ×2 (08:47→21:56)
[2024-09-28] MEDS: PREGABALIN (*CRX) 75 MG CAPSULE PO ×2 (08:47→16:57)
[2024-09-28] MEDS: PANTOPRAZOLE 40 MG TABLET PO (08:47)
[2024-09-28] MEDS: guaiFENesin 12 HR 600 MG TABCR PO ×2 (08:47→21:56)
[2024-09-28] MEDS: EMPAGLIFLOZIN 25 MG TABLET PO (08:47)
[2024-09-28] MEDS: levETIRAcetam 500 MG TABLET 1500 MG PO ×2 (08:47→21:57)
[2024-09-28] MEDS: FERROUS GLUCONATE 324 MG TABLET PO (08:47)
[2024-09-28] MEDS: PRIMIDONE 50 MG TABLET PO ×3 (08:47→17:03)
[2024-09-28] MEDS: BRIMONIDINE TARTRATE 0.2% OP SOLN 5 ML BTL 1 DROP EACH EYE ×2 (08:48→16:58)
[2024-09-28] MEDS: DICLOFENAC SODIUM 1% 100 GM GEL (*BKC) 1 APPLIC TOPICAL ×2 (08:48→17:02)
[2024-09-28] MEDS: ARTIFICIAL TEARS OPHTH SOLN 15 ML BOTTLE 1 DROP EACH EYE ×2 (08:49→16:58)
--- NOTE | 2024-09-28 10:47 | P.PNIM_ITS ---
Progress Note: A&P Assessment and Plan (1) Breakthrough seizure: Code(s): G40.919 - Epilepsy, unspecified, intractable, without status epilepticus Status: Acute Assessment and Plan: * patient was loaded with Keppra * likely secondary to acute infection * CT head reviewed * Neurology following * Patient having seizures 09/24 afternoon the first was about 2 minutes followed by a couple 30 second to 1 minute seizures. Patient given a total of Ativan 4 mg IVP. * Neuro aware and ordered Levetiracetam 1,000 mg IVPB bolus then Levetiracetam 2,000 mg IVPB q12. Ordered Lorazepam 5 mg ivp q 4 PRN for seizures. * Currently Levetiracetam 1,500 mg PO q 12. * Seizure precautions and suction set up * Telemetry- SR 63 (2) Pneumonia: Qualifiers: Laterality: bilateral Code(s): J18.9 - Pneumonia, unspecified organism Status: Acute Assessment and Plan: * Augmentin 875-125 mg PO q 12, completed Azithromycin 500 mg PO daily treatment. * Mucinex 600 mg PO q 12. * Patient weaned to room air with Sa02 96%. (3) Urinary tract infection: Code(s): N39.0 - Urinary tract infection, site not specified Status: Ruled-out Assessment and Plan: * Urine culture showed no growth * encourage hydration. (4) Ischemic cardiomyopathy: Code(s): I25.5 - Ischemic cardiomyopathy Status: Chronic Assessment and Plan: * continue to monitor * appears euvolemic (5) Type 2 diabetes mellitus with hyperglycemia, with long-term current use of insulin: Code(s): E11.65 - Type 2 diabetes mellitus with hyperglycemia; Z79.4 - alf (current) use of insulin Status: Chronic Assessment and Plan: * resume home meds * continue to monitor (6) Generalized weakness: Code(s): R53.1 - Weakness Status: Acute Assessment and Plan: * likely secondary to chronic illness with acute superimposed infection * PT/OT (7) Seizure disorder: Code(s): G40.909 - Epilepsy, unspecified, not intractable, without status epilepticus Status: Acute Assessment and Plan: * Neurology consulted * Patient having seizures this on 09/24 the first was about 2 minutes followed by a couple 30 second to 1 minute seizures. Patient given a total of Ativan 4 mg IVP. * Neuro aware and ordered Levetiracetam 1,000 mg IVPB bolus then Levetiracetam 2,000 mg IVPB q12. Ordered Lorazepam 5 mg ivp q 4 PRN for seizures. * Currently Levetiracetam 1,500 mg PO q 12. * Seizure precautions and suction set up (8) Chronic heel ulcer: Code(s): L97.409 - Non-pressure chronic ulcer of unspecified heel and midfoot with unspecified severity Status: Acute Assessment and Plan: * local care (9) CKD (chronic kidney disease) stage 3, GFR 30-59 ml/min: Code(s): N18.30 - Chronic kidney disease, stage 3 unspecified Status: Chronic Assessment and Plan: * BUN 45, Creatinine 1.60, GFR 43 (10) Neuropathy: Code(s): G62.9 - Polyneuropathy, unspecified Status: Acute Assessment and Plan: * unchanged Subjective Date/time seen: 09/28/24 10:47 Interval history: Patient reports chronic pain in left arm and legs that is a 6 , constant, and aching. Patient denies chest pain, palpitations, headache, dizziness, nausea, or vomiting. Review of Systems Review of Systems: All systems reviewed & are unremarkable except as noted in HPI and below Exam Const: General: no acute distress and uncomfortable Resp: Effort & Inspection: normal respiratory effort Auscultation: diminished lung sounds Cardio: Rate: regular rate Rhythm: regular rhythm Other: Telemetry- SR 63 GI: GI Palp: Yes Soft to palpation Auscultation: normal bowel sounds Skin: Other: Brown 1 1/2 inch area to medial aspect of right great toe. No drainage. Scattered scabs to upper and lower extremities. Neuro: Speech: normal speech Extrem: General: no pedal edema Psych: Mental Status: mental status grossly normal Affect: normal affect Objective Data Vital Signs Vital Signs: Vital Signs - 24 hr 09/27/24 12:00 09/27/24 14:16 09/27/24 16:00 Temperature 97.6 F Pulse Rate 72 66 66 Respiratory Rate 12 Blood Pressure 115/70 Pulse Oximetry 95 Oxygen Delivery 09/27/24 21:38 09/27/24 20:00 09/27/24 20:00 Temperature 97.4 F L Pulse Rate 61 63 Respiratory Rate 18 Blood Pressure 98/61 L Pulse Oximetry 93 Oxygen Delivery Room Air 09/28/24 00:00 09/28/24 04:00 09/28/24 06:00 Temperature 97.6 F Pulse Rate 64 63 61 Respiratory Rate 18 Blood Pressure 103/54 L Pulse Oximetry 95 Oxygen Delivery 09/28/24 08:43 09/28/24 08:47 Temperature Pulse Rate 64 80 Respiratory Rate 16 Blood Pressure 100/62 Pulse Oximetry 96 Oxygen Delivery Intake/Output Intake/Output: Intake & Output 09/25/24 09/26/24 09/27/24 09/28/24 23:59 23:59 23:59 23:59 Intake Total 2820 2390 1960 600 Output Total 2600 2200 2325 730 Balance 220 190 365 130 Meds/Results Medications: Active Medications Generic Name Dose Route Start Last Admin Trade Name Freq PRN Reason Stop Dose Admin Acetaminophen 1,000 mg 09/23/24 01:44 09/28/24 04:45 Acetaminophen 500 Mg Tablet PO 1,000 mg Q8H PRN Administration Pain (Scale Score 1-3) Albuterol/Ipratropium 3 ml 09/23/24 01:44 09/24/24 14:20 Ipratropium 0.5 Mg/Albuterol Sulfate 2.5 Mg Ampul.Neb 3 Ml INHALATION 3 ml Q6HRT PRN Administration Shortness Of Breath Amlodipine Besylate 5 mg 09/23/24 09:00 09/27/24 08:57 Amlodipine Besylate 5 Mg Tablet PO 5 mg DAILY JERRY Administration Amoxicillin/Clavulanate Potassium 1 tablet 09/25/24 21:00 09/28/24 08:47 Amoxicillin/Clavulanate K 875-125 Mg Tab PO 09/29/24 09:01 1 tablet Q12HR JERRY Administration Artificial Tears 1 drop 09/23/24 09:00 09/28/24 08:49 Artificial Tears Ophth Soln 15 Ml Bottle EACH EYE 1 drop BID JERRY Administration Aspirin 81 mg 09/23/24 09:00 09/28/24 08:47 Aspirin 81 Mg Enteric Tablet PO 81 mg DAILY JERRY Administration Atorvastatin Calcium 40 mg 09/23/24 21:00 09/27/24 21:45 Atorvastatin 40 Mg Tablet PO 40 mg HS JERRY Administration Azelastine HCl 1 spray 09/23/24 09:00 09/28/24 08:48 Azelastine Hcl Nasal 0.1% 137 Mcg/Spr 30 Ml Btl NASAL Not Given Q12HR JERRY Baclofen 10 mg 09/23/24 09:00 09/28/24 08:47 Baclofen 10 Mg Tablet PO 10 mg TID JERRY Administration Bisacodyl 10 mg 09/23/24 01:44 Bisacodyl 10 Mg Suppository RECTAL DAILY PRN Constipation Brimonidine Tartrate 1 drop 09/23/24 09:00 09/28/24 08:48 Brimonidine Tartrate 0.2% Op Soln 5 Ml Btl EACH EYE 1 drop BID JERRY Administration Dextrose 12.5 gm 09/23/24 11:26 Dextrose 50% 25 Gm/50 Ml Syringe IV PUSH PRN PRN Hypoglycemia Protocol Diclofenac Sodium 1 applic 09/23/24 09:00 09/28/24 08:48 Diclofenac Sodium 1% 100 Gm Gel (*Bkc) TOPICAL 1 applic BID JERRY Administration Duloxetine HCl 60 mg 09/23/24 09:00 09/28/24 08:47 Duloxetine Hcl 60 Mg Capsule. PO 60 mg DAILY JERRY Administration Empagliflozin 25 mg 09/23/24 09:00 09/28/24 08:47 Empagliflozin 25 Mg Tablet PO 25 mg DAILY JERRY Administration Febuxostat 40 mg 09/23/24 09:00 09/28/24 08:47 Febuxostat 40 Mg Tablet PO 40 mg DAILY JERRY Administration Ferrous Gluconate 324 mg 09/23/24 09:00 09/28/24 08:47 Ferrous Gluconate 324 Mg Tablet PO 324 mg DAILY JERRY Administration Flumazenil 0.2 mg 09/24/24 15:27 Flumazenil 0.5 Mg/5 Ml Vial IV PUSH PRN PRN Sedation from ativan Glucagon 1 mg 09/23/24 11:26 Glucagon For Inj 1 Mg Vial IM PRN PRN Hypoglycemia Protocol Glucose 15 gm 09/23/24 11:26 Glucose Oral Gel 15 Gm Of Glucse In 37.5 Gm Tube PO PRN PRN Hypoglycemia Protocol Guaifenesin 600 mg 09/24/24 12:30 09/28/24 08:47 Guaifenesin 12 Hr 600 Mg Tabcr PO 10/01/24 12:29 600 mg Q12HR JERRY Administration Guaifenesin/Dextromethorphan 5 ml 09/24/24 14:36 09/27/24 23:28 Guaifenesin/Dextromethorphan 10 Ml Udc PO 5 ml Q4H PRN Administration Cough Dextrose 1,000 mls @ 100 mls/hr 09/23/24 11:26 Dextrose 5% 1,000 Ml IVPB PRN PRN Hypoglycemia Protocol Insulin Aspart 3 units 09/23/24 06:30 09/28/24 07:56 Insulin Aspart (*Bkc) 100 Units/Ml SUB-Q 10/23/24 06:29 Not Given AC JERRY Insulin Aspart 4 - 8 units 09/23/24 12:00 09/28/24 08:39 Insulin Aspart (*Bkc) 100 Units/Ml SUB-Q Not Given TIDWM JERRY Protocol Insulin Aspart 2 - 4 units 09/23/24 21:00 09/27/24 21:51 Insulin Aspart (*Bkc) 100 Units/Ml SUB-Q 2 units HS JERRY Administration Protocol Insulin Glargine 12 units 09/23/24 21:00 09/27/24 21:50 Insulin Glargine (*Bkc) 100 Units/Ml SUB-Q 12 units HS JERRY Administration Latanoprost 1 drop 09/23/24 21:00 09/27/24 21:46 Latanoprost 0.005% Op Soln 2.5 Ml Btl EACH EYE 1 drop HS JERRY Administration Levetiracetam 1,500 mg 09/25/24 21:00 09/28/24 08:47 Levetiracetam 500 Mg Tablet PO 1,500 mg Q12HR JERRY Administration Levothyroxine Sodium 112 mcg 09/23/24 06:30 09/28/24 05:29 Levothyroxine Sodium 112 Mcg Tablet PO 112 mcg DAILY@0630 JERRY Administration Levothyroxine Sodium 25 mcg 09/23/24 06:30 09/28/24 05:28 Levothyroxine Sodium 25 Mcg Tablet PO 25 mcg DAILY@0630 JERRY Administration Loratadine 10 mg 09/23/24 09:00 09/28/24 08:47 Loratadine 10 Mg Tablet PO 10/23/24 08:59 10 mg DAILY JERRY Administration Lorazepam 2 mg 09/24/24 16:00 Lorazepam Inj (*Crx) 2 Mg/Ml Vial IV PUSH Q4H PRN seizure Magnesium Hydroxide 30 ml 09/23/24 01:44 Magnesium Hydroxide Susp 30 Ml Udc PO HS PRN Constipation Magnesium Oxide 400 mg 09/23/24 09:00 09/28/24 08:47 Magnesium Oxide 400 Mg Tablet PO 400 mg DAILY JERRY Administration Melatonin 5 mg 09/23/24 21:00 09/27/24 21:46 Melatonin 5 Mg Tablet PO 5 mg HS JERRY Administration Metoprolol Succinate 25 mg 09/23/24 09:00 09/28/24 08:47 Metoprolol Succinate Ext Rel 25 Mg Tabcr PO 25 mg DAILY JERRY Administration Miconazole Nitrate 1 applic 09/23/24 21:00 09/27/24 21:47 Miconazole Nitrate 2% Cream 30 Gm Tube TOPICAL 1 applic HS [facility] Administration Pantoprazole Sodium 40 mg 09/23/24 09:00 09/28/24 08:47 Pantoprazole 40 Mg Tablet PO 10/23/24 08:59 40 mg DAILY JERRY Administration Phenazopyridine HCl 100 mg 09/23/24 09:00 09/28/24 08:47 Phenazopyridine Hcl 100 Mg Tablet PO 100 mg TID JERRY Administration Polyethylene Glycol 17 gm 09/23/24 01:44 Polyethylene Glycol 3350 17 Gm Powd.Pack PO DAILY PRN Constipation Pregabalin 75 mg 09/23/24 09:00 09/28/24 08:47 Pregabalin (*Crx) 75 Mg Capsule PO 75 mg BID [facility] Administration Primidone 50 mg 09/23/24 09:00 09/28/24 08:47 Primidone 50 Mg Tablet PO 50 mg TID [facility] Administration Tamsulosin HCl 0.8 mg 09/23/24 21:00 09/27/24 21:45 Tamsulosin Hcl 0.4 Mg Capsule PO 0.8 mg HS [facility] Administration Tramadol HCl 100 mg 09/23/24 01:44 09/28/24 01:49 Tramadol Hcl (*Crx) 50 Mg Tablet PO 100 mg Q8H PRN Administration pain 4-6 Radiology Results: ITS Impressions Chest X-Ray 09/22/24 18:22 IMPRESSION: 1. Stable airspace opacities in left lower lung zone, consistent with atelectasis versus pneumonia. 2. Mild pulmonary edema. 3. Cardiomegaly. Head CT 09/22/24 18:41 IMPRESSION: 1. 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 Labs Labs: Laboratory Results - last 24 hr 09/27/24 09/27/24 09/27/24 11:28 16:35 21:06 WBC RBC Hgb Hct MCV MCH MCHC RDW Plt Count MPV Immature Gran % (Auto) Neut % (Auto) Lymph % (Auto) [place] % (Auto) Eos % (Auto) Baso % (Auto) Lymph # (Auto) [place] # (Auto) Eos # (Auto) Baso # (Auto) Abs Immat Gran (auto) Absolute Neuts (auto) Absolute Nucleated RBC Nucleated RBC % % Immature Plt Fraction Sodium Potassium Chloride Carbon Dioxide Anion Gap BUN Creatinine Estim Creat Clear Calc Estimated GFR Glucose POC Capillary Glucose 198 H 159 H 202 H Calcium Total Bilirubin AST ALT Alkaline Phosphatase Total Protein Albumin 09/28/24 09/28/24 05:55 07:28 WBC 7.4 RBC 4.76 Hgb 14.3 Hct 45.2 MCV 95.0 MCH 30.0 MCHC 31.6 L RDW 15.4 H Plt Count 106 L MPV 11.9 H Immature Gran % (Auto) 1.4 H Neut % (Auto) 67.7 Lymph % (Auto) 15.3 L [place] % (Auto) 11.4 H Eos % (Auto) 3.0 Baso % (Auto) 1.2 Lymph # (Auto) 1.13 [place] # (Auto) 0.8 H Eos # (Auto) 0.2 Baso # (Auto) 0.1 Abs Immat Gran (auto) 0.10 H Absolute Neuts (auto) 5.0 Absolute Nucleated RBC 0.000 Nucleated RBC % 0.0 % Immature Plt Fraction 7.8 Sodium 136 L Potassium 4.5 Chloride 103 Carbon Dioxide 24 Anion Gap 9 BUN 45 H Creatinine 1.60 H Estim Creat Clear Calc 58 Estimated GFR 43 L Glucose 189 H POC Capillary Glucose 181 H Calcium 8.4 Total Bilirubin 0.7 AST 43 ALT 32 Alkaline Phosphatase 173 H Total Protein 8.0 Albumin 3.8 Quality VTE Prophylaxis VTE prophylaxis: mechanical ordered
[2024-09-28 11:23] LABS: Glucose Point of Care 240 mg/dl (65-105)
--- NOTE | 2024-09-28 11:30 | PC.NURSE ---
RN assumed care
[2024-09-28] MEDS: INSULIN ASPART (*BKC) 100 UNITS/ML SUB-Q ×3 (13:00→16:58)
[2024-09-28 16:32] LABS: Glucose Point of Care 194 mg/dl (65-105)
[2024-09-28 21:20] LABS: Glucose Point of Care 174 mg/dl (65-105)
[2024-09-28] MEDS: TAMSULOSIN HCL 0.4 MG CAPSULE 0.8 MG PO (21:56)
[2024-09-28] MEDS: ATORVASTATIN 40 MG TABLET PO (21:56)
[2024-09-28] MEDS: MICONAZOLE NITRATE 2% CREAM 30 GM TUBE 1 APPLIC TOPICAL (21:57)
[2024-09-28] MEDS: AZELASTINE HCL NASAL 0.1% 137 MCG/SPR 30 ML BTL 1 SPRAY NASAL (21:57)
[2024-09-28] MEDS: LATANOPROST 0.005% OP SOLN 2.5 ML BTL 1 DROP EACH EYE (21:57)
[2024-09-28] MEDS: INSULIN GLARGINE (*BKC) 100 UNITS/ML 12 UNITS SUB-Q (22:47)
[2024-09-29] VITALS (7 sets, daily range): BP systolic 102–131; BP diastolic 65–75; PULSE 59–75; RESP 16–20; TEMP 36.1; O2SAT 95–100
[2024-09-29] MEDS: LEVOTHYROXINE SODIUM 25 MCG TABLET PO (05:46)
[2024-09-29] MEDS: ACETAMINOPHEN 500 MG TABLET 1000 MG PO (05:46)
[2024-09-29] MEDS: LEVOTHYROXINE SODIUM 112 MCG TABLET PO (05:46)
[2024-09-29 07:33] LABS: Basophils Absolute Auto 0.1 K/mm3 (0.0-0.1); Basophils Percent Auto 0.7 % (0.2-1.2); Eosinophils Absolute Auto 0.2 K/mm3 (0-0.3); Eosinophils Percent Auto 2.4 % (0-4.4); Hematocrit 46.2 % (42.0-52.0); Hemoglobin 14.5 g/dL (14.0-18.0); Immature Granulocyte Absolute 0.13 K/mm3 (0.00-0.031); Immature Granulocyte Percent A 1.8 % (0-0.5); Lymphocytes Absolute Auto 0.91 K/mm3 (0.9-3.2); Lymphocytes Percent Auto 12.8 % (18.3-44.2); Mean Corpuscular HGB Conc 31.4 g/dl (32-36); Mean Corpuscular Hemoglobin 30.3 pg (26-34); Mean Corpuscular Volume 96.7 fl (80-100); Mean Platelet Volume 11.9 fl (7.4-10.4); Monocytes Absolute Auto 0.7 K/mm3 (0.1-0.6); Monocytes Percent Auto 10.4 % (2.6-8.5); Neutrophils Absolute Auto 5.1 K/mm3 (1.3-6.7); Neutrophils Percent Auto 71.9 % (45.5-73.1); Platelet Count Result 106 k/mm3 (150-375); Red Blood Count 4.78 M/mm3 (4.6-6.20); Red Cell Distribution Width 15.7 % (11.5-14.5); White Blood Count 7.1 K/mm3 (4.5-10.0)
[2024-09-29 07:41] LABS: Glucose Point of Care 172 mg/dl (65-105)
[2024-09-29 08:01] LABS: Alanine Aminotransferase 36 U/L (6-50); Albumin Level 3.9 g/dL (3.5-5.1); Alkaline Phosphatase 161 U/L (38-126); Anion Gap 8 mmol/L (4-12); Aspartate Amino Transferase 40 U/L (17-59); Bilirubin,Total 0.8 mg/dL (0.2-1.3); Blood Urea Nitrogen 48 mg/dL (9-20); Calcium 8.4 mg/dL (8.4-10.2); Carbon Dioxide 28 mmol/L (22-30); Chloride 101 mmol/L (98-107); Estimated CRCL calculation 58 ml/min; Estimated Glomerular Filt Rate 43; Glucose 151 mg/dL (65-110); Potassium 4.7 mmol/L (3.4-5.0); Sodium 137 mmol/L (137-145)
[2024-09-29] MEDS: PANTOPRAZOLE 40 MG TABLET PO (09:50)
[2024-09-29] MEDS: MAGNESIUM OXIDE 400 MG TABLET PO (09:50)
[2024-09-29] MEDS: guaiFENesin 12 HR 600 MG TABCR PO (09:51)
[2024-09-29] MEDS: PRIMIDONE 50 MG TABLET PO ×2 (09:51→13:37)
[2024-09-29] MEDS: PREGABALIN (*CRX) 75 MG CAPSULE PO (09:51)
[2024-09-29] MEDS: BACLOFEN 10 MG TABLET PO ×2 (09:51→13:37)
[2024-09-29] MEDS: levETIRAcetam 500 MG TABLET 1500 MG PO (09:51)
[2024-09-29] MEDS: METOPROLOL SUCCINATE EXT REL 25 MG TABCR PO (09:52)
[2024-09-29] MEDS: amLODIPine BESYLATE 5 MG TABLET PO (09:52)
[2024-09-29] MEDS: EMPAGLIFLOZIN 25 MG TABLET PO (09:52)
[2024-09-29] MEDS: ASPIRIN 81 MG ENTERIC TABLET PO (09:52)
[2024-09-29] MEDS: FEBUXOSTAT 40 MG TABLET PO (09:52)
[2024-09-29] MEDS: PHENAZOPYRIDINE HCL 100 MG TABLET PO ×2 (09:52→13:37)
[2024-09-29] MEDS: DULoxetine HCL 60 MG CAPSULE.DR PO (09:52)
[2024-09-29] MEDS: AMOXICILLIN/CLAVULANATE K 875-125 MG TAB 1 TABLET PO (09:52)
[2024-09-29] MEDS: FERROUS GLUCONATE 324 MG TABLET PO (09:52)
[2024-09-29] MEDS: LORATADINE 10 MG TABLET PO (09:53)
[2024-09-29] MEDS: BRIMONIDINE TARTRATE 0.2% OP SOLN 5 ML BTL 1 DROP EACH EYE (09:54)
[2024-09-29] MEDS: ARTIFICIAL TEARS OPHTH SOLN 15 ML BOTTLE 1 DROP EACH EYE (09:54)
[2024-09-29] MEDS: DICLOFENAC SODIUM 1% 100 GM GEL (*BKC) 1 APPLIC TOPICAL (09:55)
[2024-09-29] MEDS: AZELASTINE HCL NASAL 0.1% 137 MCG/SPR 30 ML BTL 1 SPRAY NASAL (09:55)
--- NOTE | 2024-09-29 11:02 | P.DS_ITS ---
DS: Admitting Diagnosis Discharge Date 09/29/2024 Admitting Diagnosis Seizure DS: Discharge Diagnosis Discharge Diagnosis (1) Breakthrough seizure: Code(s): G40.919 - Epilepsy, unspecified, intractable, without status epilepticus Status: Acute (2) PNA (pneumonia): Code(s): J18.9 - Pneumonia, unspecified organism Status: Acute (3) Epilepsy: Code(s): G40.909 - Epilepsy, unspecified, not intractable, without status epilepticus Status: Acute (4) Ischemic cardiomyopathy: Code(s): I25.5 - Ischemic cardiomyopathy Status: Chronic (5) Type 2 diabetes mellitus with hyperglycemia, with long-term current use of insulin: Code(s): E11.65 - Type 2 diabetes mellitus with hyperglycemia; 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 Patient had further seizures during admission and was seen by Neurology. * Keppra increased to 1,500 mg PO q12. * Patient also treated for pneumonia with antibiotics and weaned off of oxygen. 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 * Chest X-ray showed: IMPRESSION: 1. Stable airspace opacities in left lower lung zone, consistent with atelectasis versus pneumonia. 2. Mild pulmonary edema. 3. Cardiomegaly. * Patient to follow up with neurology after discharge. Status at Discharge Functional status at discharge: wheelchair bound Overall status at discharge: patient is not back to baseline Time Spent with Patient Time attestation: Total time spent providing and/or coordinating discharge services: Time spent: Greater than 30 minutes Exam Const: General: no acute distress and uncomfortable Other: Chronic left hand and left leg pain that is a 6 , constant, and aching. Resp: Effort & Inspection: normal respiratory effort Auscultation: diminished lung sounds Cardio: Rate: regular rate Rhythm: regular rhythm Other: Telemetry SR 66 GI: GI Palp: Yes Soft to palpation Auscultation: normal bowel sounds Extrem: General: no pedal edema Psych: Mental Status: mental status grossly normal Affect: normal affect DS: Data Data Completed and Pending Labs on day of discharge: Labs from last 24 hours 09/29/24 09/29/24 09/28/24 07:32 06:02 20:09 WBC 7.1 RBC 4.78 Hgb 14.5 Hct 46.2 MCV 96.7 MCH 30.3 MCHC 31.4 L RDW 15.7 H Plt Count 106 L MPV 11.9 H Immature Gran % (Auto) 1.8 H Neut % (Auto) 71.9 Lymph % (Auto) 12.8 L [place] % (Auto) 10.4 H Eos % (Auto) 2.4 Baso % (Auto) 0.7 Lymph # (Auto) 0.91 [place] # (Auto) 0.7 H Eos # (Auto) 0.2 Baso # (Auto) 0.1 Abs Immat Gran (auto) 0.13 H Absolute Neuts (auto) 5.1 Absolute Nucleated RBC 0.000 Nucleated RBC % 0.0 Sodium 137 Potassium 4.7 Chloride 101 Carbon Dioxide 28 Anion Gap 8 BUN 48 H Creatinine 1.60 H Estim Creat Clear Calc 58 Estimated GFR 43 L Glucose 151 H POC Capillary Glucose 172 H 174 H Calcium 8.4 Total Bilirubin 0.8 AST 40 ALT 36 Alkaline Phosphatase 161 H Total Protein 8.0 Albumin 3.9 09/28/24 09/28/24 16:19 11:21 WBC RBC Hgb Hct MCV MCH MCHC RDW Plt Count MPV Immature Gran % (Auto) Neut % (Auto) Lymph % (Auto) [place] % (Auto) Eos % (Auto) Baso % (Auto) Lymph # (Auto) [place] # (Auto) Eos # (Auto) Baso # (Auto) Abs Immat Gran (auto) Absolute Neuts (auto) Absolute Nucleated RBC Nucleated RBC % Sodium Potassium Chloride Carbon Dioxide Anion Gap BUN Creatinine Estim Creat Clear Calc Estimated GFR Glucose POC Capillary Glucose 194 H 240 H Calcium Total Bilirubin AST ALT Alkaline Phosphatase Total Protein Albumin Discharge Plan Discharge Attending physician on discharge: Chava Lopez Consulting providers: Joao Estrada Discharging Clinician: Barb Hoff Anticipated Discharge Date/Time: 09/29/24 13:30 Patient Disposition: [place] Half-Way/Asst Living Activity: march shower Diet: diabetic Discharge Instructions: * Take medications as prescribed. * Follow up with PCP in a week. * Follow up with Neurology in 2 weeks. Patient Instructions: Antibiotic Form, Heart Failure (DC), Pain Management (DC), Recurrent Seizures in Adults (GEN), Epilepsy in Older Adults (DC) Stand Alone Forms: General Discharge Information, Snf Discharge Follow-up/Referrals: Rashid Thornton MD [Primary Care Provider] - 1 Week Brittanie Carlin MD [Physician] - 2 Weeks Discharge Medications: New levetiracetam [Keppra] 500 mg Tablet 1,500 mg PO Q12HR Qty: 84 0RF Continued cetirizine 10 mg tablet 10 mg PO DAILY miconazole nitrate 2 % cream 1 applic topical HS Rx Instructions: apply to penis atorvastatin 40 mg tablet 40 mg PO HS levothyroxine 137 mcg tablet 137 mcg PO QAM aspirin 81 mg Tablet,Delayed Release (Dr/Ec) 81 mg PO DAILY biotin 5,000 mcg Tablet,Disintegrating 5,000 mcg PO DAILY tamsulosin 0.4 mg capsule 0.8 mg PO HS glucagon 1 mg Kit 1 mg subcut PRN PRN (Reason: Hypoglycemia) omeprazole 20 mg Capsule,Delayed Release(Dr/Ec) 20 mg PO DAILY insulin lispro [Humalog KwikPen Insulin] 100 unit/mL Insulin Pen 3 unit SUBCUT AC furosemide 40 mg tablet 40 mg PO BID Qty: 60 0RF Hold Instructions: Hold - resume when okay with the doctor primidone 50 mg tablet 50 mg PO TID potassium chloride 10 mEq tablet extended release 10 meq PO DAILY loperamide 2 mg Capsule 2 mg PO Q12H PRN (Reason: Diarrhea) Rx Instructions: give 1 capsule by mouth every 12 hours as needed for diarrhea. Do not exceed 16mg in any 24 hour period. Notify Provider if symptoms persist after 24 hours duloxetine 60 mg capsule,delayed release(DR/EC) 60 mg PO DAILY ascorbic acid (vitamin C) 500 mg Capsule 500 mg PO BID Jardiance 25 mg tablet 25 mg PO DAILY Trulicity 0.75 mg/0.5 mL Pen Injector 0.75 mg SUBCUT WEEKLY Rx Instructions: Wednesdays baclofen 5 mg tablet 10 mg PO TID ferrous gluconate 324 mg (38 mg iron) Tablet 324 mg PO DAILY latanoprost 0.005 % drops 1 drp EACH EYE HS ipratropium-albuterol 0.5 mg-3 mg(2.5 mg base)/3 mL Solution For Nebulization 3 ml INHALATION Q6H PRN (Reason: Shortness Of Breath) brimonidine 0.2 % drops 1 drp EACH EYE BID diclofenac sodium 1 % gel 1 ea TOPICAL BID Rx Instructions: apply to BLE acetaminophen [Acetaminophen Extra Strength] 500 mg Tablet 1,000 mg PO Q8H MDD 3000mg PRN (Reason: Pain (Scale Score 4-6)) azelastine 137 mcg (0.1 %) Aerosol,[place] 1 spray INTRANASAL Q12H Rx Instructions: administer into each nostril Artificial Tears([id number]) 1-0.2-0.2 % Drops 1 drp EACH EYE BID Nystatin Powder 1 applic topical Q12H PRN (Reason: Rash) Rx Instructions: apply nystatin powder to groin topically as needed for fungal rash groin magnesium oxide 400 mg (241.3 mg magnesium) tablet 400 mg PO DAILY bisacodyl 10 mg Suppository 10 mg RECTAL DAILY PRN (Reason: Constipation) Rx Instructions: if no results from MOM insulin lispro [Humalog KwikPen Insulin] 100 unit/mL Insulin Pen 1 sliding scale dose SUBCUT USEASDIRECTD Rx Instructions: sliding scale 151-200 3 201-250 6 251-300 9 301-350 12 351-400 15 If >400, call polyethylene glycol 3350 17 gram Powder In Packet 17 g PO DAILY PRN (Reason: Constipation) magnesium hydroxide [Milk of Magnesia] 400 mg/5 mL Suspension 30 ml PO HS PRN (Reason: Constipation) Rx Instructions: if no BM in 3 days metoprolol succinate [Toprol XL] 25 mg tablet extended release 24 hr 25 mg PO DAILY triamcinolone acetonide 0.1 % Cream 1 applic TOPICAL BID PRN (Reason: dermatitis) Qty: 15 0RF Rx Instructions: apply to face and neck redness topically two times a day for dermatitis multivitamin [Multiple Vitamins] Tablet 1 tablet PO DAILY lidocaine [Lidocaine Pain Relief] 4 % Adhesive Patch,Medicated 1 patch TOPICAL DAILY Rx Instructions: apply to left shoulder Fleet Enema 19-7 gram/118 mL Enema 118 ml RECTAL USEASDIRECTD PRN (Reason: Constipation) Rx Instructions: insert one application rectally as needed for constipation if no results 1 day after suppository melatonin 5 mg Tablet 5 mg PO HS Refresh Optive Advanced (PF) 0.5-1-0.5 % Dropperette 1 drp EACH EYE BID miconazole nitrate [Micatin] 2 % Cream 1 applic TOPICAL BID lorazepam 2 mg/mL Solution 0.5 mg IM Q4H PRN (Reason: Seizures) phenazopyridine 100 mg Tablet 100 mg PO TID Rx Instructions: end date 09/24/24 insulin glargine [Lantus Solostar U-100 Insulin] 100 unit/mL (3 mL) insulin pen 12 unit SUBCUT HS febuxostat [Uloric] 40 mg Tablet 40 mg PO DAILY liraglutide 0.6 mg/0.1 mL (18 mg/3 mL) Pen Injector 1.2 mg SUBCUT DAILY magnesium citrate [Citroma] Solution 296 ml PO DAILY PRN (Reason: Constipation) Rx Instructions: administer if no results after enema pregabalin 75 mg capsule 75 mg PO BID tramadol 50 mg tablet 100 mg PO Q8H PRN (Reason: pain) Qty: 90 0RF Discontinued amlodipine 5 mg Tablet 5 mg PO DAILY levetiracetam [Keppra] 500 mg Tablet 500 mg PO Q12HR Qty: 30 0RF levetiracetam 250 mg Tablet 250 mg PO Q12HR Qty: 30 0RF Date of admission: 09/25/24 16:11 Primary Care Provider: Rashid Thornton Admitting Provider: Bianca Anna V. Attending physician on admission: Bianca Anna V. Condition: Improved Hospitalist MIPS Heart Failure (Exclusion) Patient has history of Heart Transplant or Left Ventricular Assistive Device?: No IF YES, STOP HERE Heart Failure (Qualifier) Patient has current or prior documentation of LVEF less than or equal to 40%, or mod/servere depressed LVSF?: Yes IF NO, STOP HERE If Yes, Heart Failure (Qualifier) Patient was prescribed or already taking an Angiotensin-Converting Enzyme (JOSE) Inhibitor, or Antiotensin Receptor Jalen (ARB): No Patient was prescribed or already taking bisoprolol, carvedilol, or sustained release metoprolol succinate: Yes If Medications not prescribed/taking Reason patient not prescribed/taking JOSE or ARB: Patient reasons: pt declined or other pt reason
[2024-09-29 11:27] LABS: Glucose Point of Care 210 mg/dl (65-105)
[2024-09-29] MEDS: INSULIN ASPART (*BKC) 100 UNITS/ML SUB-Q ×2 (11:41)
== END 2024-09-29 15:00 | DRG 100 ==
LOC: ANHED 21:48 → ANHIMU 22:29 → ANH3MEDSUR 09-23 17:16
PROVIDERS: Internal Medicine; Psychiatry & Neurology Neurology; Admitting Provider Internal Medicine; Emergency Provider Emergency Medicine; PCP Family Medicine; Visit Provider Nurse Practitioner Family
DX: G40.909 Epilepsy, unspecified, not intractable, without status epilepticus (principal); J18.9 Pneumonia, unspecified organism; I13.0 Hypertensive heart and chronic kidney disease with heart failure and stage 1 through stage 4 chronic kidney disease, or unspecified chronic kidney disease; I69.351 Hemiplegia and hemiparesis following cerebral infarction affecting right dominant side; I50.42 Chronic combined systolic (congestive) and diastolic (congestive) heart failure; I25.5 Ischemic cardiomyopathy; E11.65 Type 2 diabetes mellitus with hyperglycemia; N18.30 Chronic kidney disease, stage 3 unspecified; E11.42 Type 2 diabetes mellitus with diabetic polyneuropathy; E11.22 Type 2 diabetes mellitus with diabetic chronic kidney disease; E78.5 Hyperlipidemia, unspecified; N40.0 Benign prostatic hyperplasia without lower urinary tract symptoms; I25.10 Atherosclerotic heart disease of native coronary artery without angina pectoris; G25.81 Restless legs syndrome; H40.9 Unspecified glaucoma; L97.519 Non-pressure chronic ulcer of other part of right foot with unspecified severity; Z20.822 Contact with and (suspected) exposure to COVID-19; Z79.82 Long term (current) use of aspirin; Z79.4 Long term (current) use of insulin; Z95.1 Presence of aortocoronary bypass graft; I25.2 Old myocardial infarction; Z98.1 Arthrodesis status; Z87.891 Personal history of nicotine dependence
CPT/HCPCS: 36415; 70450; 71045; 80053; 80061; 80177; 81001; 82306; 82607; 82746; 82948; 83735; 84484; 85025; 85055; 87086; 87637; 93005; 94640; 94762; 96365; 96366; 96367; 96375; 97110; 97162; 97166; 97530; 99212; 99285; A9270; G0378; G0463; J0456; J0696; J1815; J1940; J1953; J2060

== ENCOUNTER 2025-01-24 20:06 | Emergency (ER) | payer MEDICARE, SELFPAY ==
[2025-01-24] VITALS (12 sets, daily range): BP systolic 116–141; BP diastolic 69–82; PULSE 71–77; RESP 15–22; TEMP 36.3–36.6; O2SAT 93–98
--- NOTE | ~2025-01-24 | XR_ITS ---
XR chest 1V DATE: 01/24/2025 21:06 INDICATION: Seizure TECHNIQUE: 2 AP views COMPARISON: 09/22/2024 portable AP chest FINDINGS: Cardiomegaly. Mild pulmonary vascular congestion. Mild infiltrate or atelectasis is suggest ed in the left lower lobe. Status post sternotomy. Bilateral glenohumeral osteoarthritis and chronic rotator cuff atrophy. IMPRESSION: Cardiomegaly, pulmonary vascular congestion, left lower lobe infiltrate or atelectasis Reviewed, dictated and finalized at location [facility]. IMPRESSION: Cardiomegaly, pulmonary vascular congestion, left lower lobe infilt rate or atelectasis
--- NOTE | ~2025-01-24 | CT_ITS ---
CLINICAL INDICATION: Abdominal pain, pancreatitis suspected clinically COMPARISON: 03/28/2024. TECHNIQUE: Multiple contiguous axial images of the abdomen and pelvis were performed following the ad ministration of with 100 mL Omnipaque-350 intravenous contrast The dose-length product (DLP) was 1580.86 mGy-cm. Automated exposure control and iterative reconstruction technique were employed. FINDINGS/OBSERVATIONS: Visualized lower thorax: Left basilar consolidation. The right lung bases clear. The heart is enlarged, without pericardial effusion. Small hiatal hernia is present. Liver: The liver demonstrates homogeneous enhancement and is enlarged measuring 21 cm in longitudinal dimens ion. Gallbladder and biliary system: Multiple dependent stones are identified within the gallbladder, which is otherwise unremarkable. Pancreas: The pancreas enhances homogeneously, is not enlarged and is without ductal dilatation or surrounding inflammatory change. Spleen: The spleen enhances homogeneously and is enlarged measuring 15 cm in longitudinal dimension. Kidneys: Rounded focus of decreased attenuation within the interpolar region of the right kidney, unc hanged from previous examination and statistically a cyst. The remainder of the bilateral kidneys otherwise enhance symmetrically without hydronephrosis or madie l calculi. Adrenal glands: Unremarkable. Gastrointestinal tract: Fecal stasis within the colon. Appendix: The air-filled appendix is of normal caliber (axial series, images 140 through 147) Vasculature: Densely calcified atherosclerotic disease. Lymph nodes: No pathologically enlarged or morphologically suspicious lymph nodes within the retroperitoneum or at the root of the mesentery. Pelvic structures: The bladder is only minimally distended, and demonstrates significantly thickened govea with surround ing inflammatory change for which cystitis is suspected. The prostate gland is not enlarged but demonstrates multiple bulky calcifications.. Body wall and musculoskeletal: Small fat-containing umbilical hernia. Significant degenerative disease within the lumbosacral spine, with osteophyte formation, disc space narrowing, endplate changes and vacuum phenomena. No acute compression fracture is appreciated. IMPRESSION: No cross-sectional imaging evidence to suggest the presence of acute pancreatitis. Hepatosplenomegaly. Left basilar pneumonia. Cholelithiasis without CT evidence of cholecystitis. Reviewed, dictated and finalized at location A. IMPRESSION: No cross-sectional imaging evidence to suggest the presence of acute pancreatit is. Hepatosplenomegaly. Left basilar pneumonia. Cholelithiasis without CT evidence of cholecystitis.
--- NOTE | ~2025-01-24 | CT_ITS ---
EXAMINATION: CT brain wo con DATE: 01/24/2025 21:01 INDICATION: Breakthrough seizure TECHNIQUE: Computed tomography (CT) of the head was performed without intravenous contrast. The mA wa s adjusted according to patient size. Iterative reconstruction technique was employed. Exam dose: 68 1.00 mGy-cm total exam DLP. COMPARISON: 09/22/2024 CT brain FINDINGS: Again noted is a large chronic infarct in the right temporal, occipital, parietal areas and right thalamus within the distribution of the right middle cerebral artery, stable since 09/22/2024. No intracranial mass lesion or hemorrhage, midline shift or mass effect or interval cerebrovascular a ccident is detected. Bilateral vertebral artery, basilar artery and bilateral carotid siphon internal carotid artery calci fication. There is nonspecific diminished attenuation of the cerebral white matter, likely due to chr onic small vessel ischemic change. There is moderately prominent central and cortical cerebral volume loss. No subdural or epidural hematoma. The orbital contents are unremarkable. The paranasal sinuses and mastoid air cells are well-developed and aerated. No fracture or bone destruction of the cranial vault. IMPRESSION: Stable old right temporal, parietal, occipital and right thalamic chronic cerebrovascula r infarct, stable since 09/22/2024 No acute intracranial finding Reviewed, dictated and finalized at [facility]. Reviewed, dictated and finalized at location [facility]. IMPRESSION: Stable old right temporal, parietal, occipital and right thalamic chronic cerebrovascular infarct, stable since 09/22/2024 No acute intracranial finding
--- NOTE | 2025-01-24 20:13 | ECG_ITS ---
Test Date: 2025-01-24 20:12:25 Measurements Intervals [place] Rate: 71 P: 47 MT: 200 QRS: -35 QRSD: 135 T: 108 QT: 453 QTc: 493 Interpretive Statements SINUS RHYTHM LEFT AXIS DEVIATION [QRS AXIS < -30] INTRAVENTRICULAR CONDUCTION DELAY [130+ ms QRS DURATION] LEFT VENTRICULAR HYPERTROPHY AND ST-T CHANGE [VOLTAGE CRITERIA PLUS ST/T ABNORMALITY] POOR R-WAVE PROGRESSION Compared to ECG 09/24/2024 14:38:02 Left-axis deviation now present Left ventricular hypertrophy now present Electronically Signed On 01-25-2025 13:21:47 CDT by Maritza Edwards M.D.
[2025-01-24] MEDS: levETIRAcetam 1000MG/NACL100ML 1,000 MG/100 ML BAG 400 MG IVPB (20:27)
[2025-01-24] MEDS: SODIUM CHLORIDE 0.9% IV 1,000 ML 999 ML IV CONT (20:29)
--- OUTSIDE RECORDS SUMMARY | 2025-01-24 20:34 | XMS_ITS ---
Author Organization [facility] Care Team Providers Care Medical Economics Consultant Name Role Phone Leslie Shah Unavailable Unavailable Ike Rodríguez Unavailable Unavailable Efrain Batista Unavailable Unavai lázarole Chel, Becky Unavailable Unavailable Lida Prieto Unavailable Unavailable Fahim, Magid Unavailable Unavailable Allergies and adverse reactions No Known Allergies Care Team Name Role Address Phone Organization Dates Ike Marcos PCP [address] [place], [address], [place] (Office): : [facility] 04/20/2023 - 10/05/2023 Leslie Shah Attending Physician [address], [place], [address], [place] (Office): [facility] 04/20/2023 - 10/05/2023 Efrain Batista Attending Physician [address], [place], [address], [place] (Office): [facility] 04/20/2023 - 10/05/2023 Becky Milligan Attending Physician [address], [place], [address], [place]Office[place] : [facility] 04/20/2023 - 10/05/2023 Lida Prieto Attending Physician [address], [place], [address], [place] (Office): [facility] 04/20/2023 - 10/05/2023 Caitlin Castillo Attending Physician [address] [place] [address], [address], [place] (Office): [facility] 04/20/2023 - 10/05/2023 Goals Section Description Status Target Date Current level of care is franklin ropriate considering current physical/ social/ emotional status. Active 10/25/2023 IMPAIRED SKIN will exhibit s igns of healing evidenced by decrease in size, improved appearance, and be free from signs & symptoms of infection Active 10/25/2023 If the resident's heart stop s, or if they stop breathing, CPR WILL be initiated in honor with their FULL code wishes ongoing through next review date Active 10/25/2023 If the resident's heart stop s, or if they stop breathing, CPR WILL be initiated in honor with their FULL code wishes. Active Bayron will be free from s/ sx of complications of poor circulation through the review date. Active 10/25/2023 Bayron will be/remain free of medication related complications, including abnormal movement disorder, discomfort, hypotension, gait disturbance, ADL decline or cognitive/behavioral impairment through review date. Active 10/25/2023 Bayron will express satisfa ction with type of activities and level of activity involvement when asked through the review date. Active 10/25/2023 Bayron will have a regular bowel elimination pattern AEB soft/formed bowel movements at least once every three days through the next review: Active 10/25/2023 Bayron will have adequate f luid volume balance AEB good skin turgor, pink & moist mucous membranes, and sufficient fluid intake through next review. Active 10/25/2023 Bayron will have improved s leep pattern by reporting satisfaction with rest or fewer documented episodes of insomnia through the review date Active 10/25/2023 Bayron will have no complic ations from hyper or hypoglycemia through the review date. Active 10/25/2023 Bayron will have no indicat ions of psychosocial well being problem by/through review date. Active 10/25/2023 Bayron will have well-controlled pain through r eview date. Active 10/25/2023 Bayron will improve current level of ADL function through the review date. Active 10/25/2023 Bayron will maintain ADEQUATE NUTRITION levels. Active 10/12/2023 Bayron will maintain curren t level of ADL function through the review date. Active 10/25/2023 Bayron will maintain lab va lues within acceptable parameters per physician or receive planned treatment for management of lab values through review date. Active 10/25/2023 Bayron will not harm themselves or others relat ed to behavior. Active 10/25/2023 Bayron will not have an int erruption in normal activities due to pain through the review date. Active 10/25/2023 Bayron will remain free of complications related to altered hematological status through the review date. Active 10/25/20 Bayron will safely use appropriate bed rails as needed. Active 10/25/2023 Bayron will state/demonstra te relief or reduction in pain intensity within one hour after receiving interventions through next review date. Active 10/25/2023 Bayron wishes to receive fu resuscitation measures in the event of cardiac arrest will be honored Active 10/25/2023 Bayron's goals for long-ter care placement will be reviewed and honored as appropriate Active 10/25/2023 Minimize the risk of residen t exposure to the novel Coronavirus (COVID-19). Active 10/25/2023 Prevent a serious fall related injury Active 10/25/2023 Prevent a serious fall related injury Active 10/25/2023 Resident risk for adverse ef fects related to use of opioids will be minimized through next review date. Active 10/25/2023 Resident will be able to par ticipate in enjoyable activities during their stay Active 10/25/2023 Resident will be able to safely and comfortably consume meals. Active 10/25/2023 Resident will be free from c omplications related to Seasonal Allergies Active 10/25/2023 Resident will be free from s igns and symptoms of abnormal bleeding through the next review date. Active 10/25/2023 Resident will be free of com plications related to ADL deficit through next review date: Active 10/25/2023 Resident will be kept clean and comfortable through next review date. Active 10/25/2023 Resident will be maintained at their respiratory baseline with a patent airway and unlabored respirations through next review date. Active 10/25/2023 Resident will improve / main tain current self-care abilities related to participation in specified restorative programs as ordered by next review Active 10/25/2023 Resident will improve / main tain current self-care abilities related to participation in specified restorative programs as ordered by next review Active 10/25/2023 Resident will not experience a decline in overall function related to pain through next review date. Active 10/25/2023 Resident will not experience serious side effects due to medication use. Active 10/25/2023 Resident will not have any s erious side effects related to cardiovascular medications and will not have any unrecognized signs of a worsening cardiovascular condition Active 10/25/20 Resident will receive the le ast dosage of the prescribed psychotropic drug(s) to ensure maximum functional ability both mentally and physically through next review date. Active 10/06 Resident will receive the ne eded assistance to maintain good oral hygiene. Active 10/25/2023 Resident will remain in the facility per family and residents wishes. Active 10/25/2023 Resident will verbalize unde rstanding of potential risks and benefits associated with his/her choices. Active 10/25/2023 Resident's Advance Directive s are in effect, and their wishes and directions will be carried out in accordance with their advanced directives on an ongoing basis through next review date: Active 10/25/2023 Resident's Advance Directive s are in effect, and their wishes and directions will be carried out in accordance with their advanced directives. Active 10/25/2023 Resident's PT and INR values will be maintained within therapeutic range, as determined by their physician through the next review date. Active 10/25/2023 Resident's needs will be ant icipated and met by staff through next review date: Active 10/25/2023 Residents preferences will be honored as able Ac tive 10/25/2023 The resident will be able to communicate needs daily through the review date. Active 10/25/2023 The resident will be free fr om complications of cardiac problems through the review date. Active 10/25/2023 The resident will be free fr om s/sx of new complications of neurological disorder through review date. Active 10/25/2023 The resident will be/remain free of psychotropic drug related complications, including abnormal movement disorder, discomfort, hypotension, gait disturbance, ADL decline or cognitive/behavioral impairment through review date. Active 10/25/2023 The resident will have an un derstanding of the disease process and the importance of compliance with treatment through the review date. Active 10/25/2023 The resident will have elect rolyte balance restored through the review date. Active 10/25/2023 The resident will have impro josie mood state (SPECIFY: happier, calmer appearance, no s/sx of depression, anxiety or sadness) through the review date. Active 10/25/2023 The resident will have no co mplications from thyroid disorder through the review date. Active 10/25/2023 The resident will have no in dications of acute eye problems through the review date. Active 10/25/2023 The resident will have no in dications of psychosocial well-being problem by/through review date. Active 10/25/2023 The resident will have not h ave any complications related to IV Therapy through the review date. Active 10/25/2023 The resident will maintain o ptimal quality of life within limitation imposed by visual function through the review date. Active 10/25/2023 The resident will maintain o ptimal status and quality of life within limitations imposed by neurological deficits through review date. Active 10/25/2023 The resident will remain eric e from discomfort, complications or s/sx related to gastro-intestinal alterations through review date. Active 10/25/2023 The resident will remain eric e from or at a level of discomfort acceptable to the resident through the review date. Active The resident's disruption of skin surface will remain free from infection Active 10/25/2023 Immunizations Immunization Status Vaccine Details Vaccine Code CodeSystem Date Notes TB 1 Step Mantoux (PPD) completed tuberculin skin test; unspecified formulation lotNumber: [id number] expiry: 03/28/2024 Given 0.1 ml Left Forearm subcutaneously 98 CVX created date: 3 consent date: 3 administe red date: 3 TB 1 Step Mantoux (PPD) completed tuberculin skin test; unspecified formulation lotNumber: [id number] expiry: 08/26/2022 Mfg: [employer] Given 0.1 ml Left Forearm intradermally 98 CVX created date: 2 consent date: 2 administe red date: 2 Educated by Jimbo Olmstead RN on 02/10/2022 Pneumovax (PCV 13)(91406) completed pneumococcal conjugate vaccine, 13 valent lotNumber: [id number] expiry: 01/02/2023 Mfg: prevnar 13 Given Left Deltoid intramuscularly 133 CVX created date: 1 consent date: 1 administe red date: 1 Afluria (Influenza vaccine) Q2035 cancelled Influenza, split virus, quadrivalent, injectable, preservative free 150 CVX created date: 1 consent date: 1 Resident refused 08/23/2021 declination signed SARS-COV-2 (COVID-19) completed SARS-COV-2 (COVID-19) vaccine, mRNA, spike protein, LNP, preservative free, 30 mcg/0.3mL dose lotNumber: [id number] expiry: 05/04/2022 Mfg: [employer] Given 0.3 ml Left Deltoid intramuscularly Step 2 of Multi-step with next step required 208 CVX created date: 2 consent date: 2 administe red date: 2 SARS-COV-2 (COVID-19) completed SARS-COV-2 (COVID-19) vaccine, mRNA, spike protein, LNP, preservative free, 10 mcg/0.2mL dose, anayeli-sucrose formulation Given intramuscularly Step 1 of Multi-step with next step required 218 CVX created date: 2 consent date: 2 administe red date: 2 SARS-COV-2 (COVID-19) cancelled created date: 1 consent date: 1 Flucelvax (Influenza vaccine) cancelled Influenza, split virus, quadrivalent, injectable, preservative free 150 CVX created date: 3 consent date: 3 Flucelvax (Influenza vaccine) completed Influenza, split virus, quadrivalent, injectable, preservative free lotNumber: [id number] expiry: 05/04/2023 Given Left Deltoid intramuscularly 150 CVX created date: 2 consent date: 2 administe red date: 2 SARS-COV-2 Bivalent Booster- Pfizer completed SARS-COV-2 (COVID-19) vaccine, mRNA, spike protein, LNP, bivalent, preservative free, 30 mcg/0.3 mL dose, anayeli-sucrose formulation lotNumber: [id number] expiry: 06/05/2023 Given Left Deltoid intramuscularly 300 CVX created date: 2 consent date: 2 administe red date: 2 Pneumovax (PCV 20) completed Pneumococcal conjugate vaccine 20-valent (PCV20), polysaccharide [id number] conjugate, adjuvant, preservative free lotNumber: [id number] expiry: 05/04/2024 Given Right Deltoid intramuscularly 216 CVX created date: 2 consent date: 2 administe red date: 2 7501-6306 COVID Vaccine (Moderna Spikevax) new SARS-COV-2 (COVID-19) vaccine, mRNA, spike protein, LNP, preservative free, 50 mcg/0.5 mL dose 312 CVX created date: 3 consent date: 3 Educated by Elver Zavaleta RN on 10/09/2023 Medications Section Medication Name Status Code CodeSystem Dose Route Frequency Admin Type Sig Text Start Date End Date Diclofenac Sodium External Gel 1 % active 335250 RXNORM n/a n/a Topical as needed PRN Apply to hips/l egs topica lly every 6 hours as needed for pain 2022 - Nystatin External Powder 896577 UNIT/GM active 754073 RXNORM n/a n/a Topical as needed PRN Apply to groin topica lly every 12 hours as needed for fungal rash 2022 - Fleet Enema Rectal Enema active 1 applic ator Rectal as needed PRN Insert 1 applic ator rectal ly every 24 hours as needed for if no result s after suppos itory 2022 - Ipratropium-A lbuterol Solution 0.5-2.5 (3) MG/3ML active 2572916 RXNORM 1 vial Inhalat ion as needed PRN 1 vial inhale orally every 6 hours as needed for sob 2022 - Milk of Magnesia Suspension 400 MG/5ML active 184519 RXNORM 30 ml Oral as needed PRN Give 30 ml by mouth every 24 hours as needed for Consti pation at bedtim e if not BM in 3 days 2022 - Bisacodyl Suppository 10 MG active 951268 RXNORM 1 suppos itory Rectal as needed PRN Insert 1 suppos itory rectal ly every 24 hours as needed for for consti pation daily if no result s for MOM 2022 - Citroma Solution 1.745 GM/30ML active 1929601 RXNORM 296 ml Oral as needed PRN Give 296 ml by mouth as needed for consti pation In AM if no result s after enema. If no result s within 1 hour of comple tion of bowel protoc ol, contac heidy COATES immedi ately for furthe r orders . 2022 - Miconazole Nitrate External Cream 2 % active 712708 RXNORM n/a n/a Topical at bedtime Routine Apply to groin topica lly at bedtim e for fungus 2022 - Multiple Vitamins-Mine rals Tablet active 5098968 RXNORM 1 tablet Oral one time a day Routine Give 1 tablet by mouth one time a day for supple ment 2022 - Levothyroxine Sodium Oral Tablet 137 MCG active 150108 RXNORM 1 tablet Oral one time a day Routine Give 1 tablet by mouth one time a day for thyroi d 2022 - Trulicity Subcutaneous Solution Pen-injector 0.75 MG/0.5ML active 3237126 RXNORM 1 applic ation Subcuta neous one time a day Routine Inject 1 applic ation subcut aneous ly one time a day every Wed for diabet es 2022 - Aspirin Low Dose Oral Tablet Delayed Release 81 MG active 1 tablet Oral one time a day Routine Give 1 tablet by mouth one time a day for antico agulan t 2022 - Omeprazole 20 MG Capsule delayed release active 376344 RXNORM 1 tablet Oral one time a day Routine Give 1 tablet by mouth one time a day for GERD 2022 - Brimonidine Tartrate Ophthalmic Solution 0.2 % active 389824 RXNORM 1 drop Ophthal eliecer two times a day Routine Instil l 1 drop in both eyes two times a day for eyes 2022 - Primidone Oral Tablet 50 MG active RXNORM 1 tablet Oral three times a day Routine Give 1 tablet by mouth three times a day for seizur es 2022 - Atorvastatin Calcium Oral Tablet 40 MG active 910747 RXNORM 1 tablet Oral at bedtime Routine Give 1 tablet by mouth at bedtim e for hyperl ipidem ia 2022 - Biotin Maximum Strength Oral Capsule 5000 MCG active 1 capsul e Oral one time a day Routine Give 1 capsul e by mouth one time a day for supple ment 2022 - Ferrous Gluconate Oral Tablet 324 (38 Fe) MG active 246998 RXNORM 1 tablet Oral one time a day Routine Give 1 tablet by mouth one time a day for supple ment 2022 - Jardiance Oral Tablet 25 MG active 9090105 RXNORM 1 tablet Oral one time a day Routine Give 1 tablet by mouth one time a day for diabet es 2022 - DULoxetine HCl Oral Capsule Delayed Release Particles 60 MG active 810318 RXNORM 1 capsul e Oral one time a day Routine Give 1 capsul e by mouth one time a day for depres luis relate d to OTHER CHRONI C PAIN (G89.2 9) 2022 - Baclofen Oral Tablet 5 MG active 909661 RXNORM 1 tablet Oral three times a day Routine Give 1 tablet by mouth three times a day for muscle spasms 2022 - Latanoprost Ophthalmic Solution 0.005 % active 595176 RXNORM 1 drop Ophthal eliecer at bedtime Routine Instil l 1 drop in both eyes at bedtim e for dry eyes 2022 - Potassium Chloride ER Tablet Extended Release 10 MEQ active 076444 RXNORM 1 tablet Oral one time a day Routine Give 1 tablet by mouth one time a day for supple ment 2022 - Ascorbic Acid Oral Tablet 500 MG active 980245 RXNORM 1 tablet Oral two times a day Routine Give 1 tablet by mouth two times a day for wound healin g 2022 - Zinc Tablet 50 MG active 1 tablet Oral one time a day Routine Give 1 tablet by mouth one time a day for aid wound healin g relate d to NASAL CONGES TION (R09.8 1) 2022 - Cetirizine HCl Tablet 10 MG active 5257750 RXNORM 1 tablet Oral one time a day Routine Give 1 tablet by mouth one time a day for Allerg y sympto ms 2022 - Glucagon Emergency Kit 1 MG active 565080 RXNORM 1 mg Subcuta neous as needed PRN Inject 1 mg subcut aneous ly as needed for hypogl ycemia for hypogl ycemic episod e 2022 - metroNIDAZOLE External Gel 1 % active 855530 RXNORM n/a n/a Topical as needed PRN Apply to face and neck topica lly as needed for as needed 2022 - amLODIPine Besylate Oral Tablet 5 MG active 071132 RXNORM 1 tablet Oral one time a day Routine Give 1 tablet by mouth one time a day relate d to ESSENT IAL (PRIMA RY) HYPERT ENSION (I10) 2022 - traMADol HCl Oral Tablet 50 MG active 556429 RXNORM 100 mg Oral as needed PRN Give 100 mg by mouth every 8 hours as needed for severe pain 2022 - Tamsulosin HCl Oral Capsule 0.4 MG active 302641 RXNORM 2 capsul e Oral at bedtime Routine Give 2 capsul e by mouth at bedtim e for bph 2022 - Polyethylene Glycol 3350 Oral Powder 17 GM/SCOOP active 051803 RXNORM 17 gram Oral as needed PRN Give 17 gram by mouth every 24 hours as needed for Consti pation 2022 - Triamcinolone Acetonide External Cream 0.1 % active 0504721 RXNORM n/a n/a Topical two times a day Routine Apply to face and neck rednes s topica lly two times a day for dermat itis 2022 - Acetaminophen Extra Strength Oral Tablet 500 MG active 1000 mg Oral as needed PRN Give 1000 mg by mouth every 8 hours as needed for Pain Scale score (4-6) 2022 - Magnesium Oxide Oral Tablet 400 MG active 400 mg Oral one time a day Routine Give 400 mg by mouth one time a day relate d to UNSPEC IFIED CONVUL SIONS (R56.9 ) 2022 - Artificial Tears Ophthalmic Solution 0.1-0.2-0.3 % active 1 drop Ophthal eliecer two times a day Routine Instil l 1 drop in both eyes two times a day for dry eyes 2022 - Metoprolol Succinate ER Oral Tablet Extended Release 24 Hour 25 MG active 612865 RXNORM 25 mg Oral one time a day Routine Give 25 mg by mouth one time a day relate d to ESSENT IAL (PRIMA RY) HYPERT ENSION (I10) 2022 - Furosemide Tablet 40 MG active 954324 RXNORM 1 tablet Oral two times a day Routine Give 1 tablet by mouth two times a day relate d to 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 LIC (CONGE STIVE) HEART FAILUR E (I50.4 2) 2022 - Lyrica Oral Capsule 75 MG active 060648 RXNORM 1 capsul e Oral at bedtime Routine Give 1 capsul e by mouth at bedtim e for pain 2022 - Lantus SoloStar Subcutaneous Solution Pen-injector 100 UNIT/ML active 749143 RXNORM 10 unit Subcuta neous at bedtime Routine Inject 10 unit subcut aneous ly at bedtim e relate d to Type 2 diabet es mellit us withou t compli cation s (E11.9 ) 2022 - levETIRAcetam ER Oral Tablet Extended Release 24 Hour 500 MG active 480229 RXNORM 1 tablet Oral two times a day Routine Give 1 tablet by mouth two times a day for seizur es 2022 - HumaLOG KwikPen 100 UNIT/ML Solution pen-injector active 4075609 RXNORM n/a n/a Subcuta neous before meals and at bedtime Routine Inject as per kristi g scale: if 151 - 200 = 3 units IF LESS THAN 60 CALL MD LESS THAN 70 FOLLOW HYPOGL YCEMIC PROTOC OL.; 201 - 250 = 6 units; 251 - 300 = 9 units; 301 - 350 = 12 units; 351 - 400 = 15 units IF GREATE R THAN 400 CALL MD, subcut aneous ly before meals and at bedtim e for hyperg lycemi a AND Inject 3 unit subcut aneous ly before meals for DM 2022 - 0280507 RXNORM 3 unit Subcuta neous before meals Routine Inject as per kristi g scale: if 151 - 200 = 3 units IF LESS THAN 60 CALL MD LESS THAN 70 FOLLOW HYPOGL YCEMIC PROTOC OL.; 201 - 250 = 6 units; 251 - 300 = 9 units; 301 - 350 = 12 units; 351 - 400 = 15 units IF GREATE R THAN 400 CALL MD, subcut aneous ly before meals and at bedtim e for hyperg lycemi a AND Inject 3 unit subcut aneous ly before meals for DM 2022 - Dymista Nasal Suspension 137-50 MCG/ACT active 0188257 RXNORM 2 spray Nasal two times a day Routine 2 spray in each nostri l two times a day for nasal 2022 - Refresh Optive PF Ophthalmic Solution 0.5-0.9 % active 1 drop Ophthal eliecer two times a day Routine Instil l 1 drop in both eyes two times a day for dry eye relate d to OTHER CHRONI C PAIN (G89.2 9) 2022 - Sinus Rinse Kit Nasal Packet active 1 unspec ified Nasal one time a day Routine 1 unspec ified in both nostri ls one time a day for nasal draina ge Pt. can do this himsel f and may keep at bedsid e 2022 - Mental Status Section Date Assessment Total Score Description 07/13/2023 BIMS 13 cognitively int act CAM 0 No delirium ind icated PHQ-9 12 moderate depres luis 05/21/2023 CAM 0 No delirium ind icated Problems Problem # Description Date of onset Resolved Date Code CodeSystem Concern Status 1 COVID-[address] active 2 OTHER MALAISE [address] active 3 PARKINSON'S DISEASE WITHOUT DYSKINESIA, WITHOUT MENTION OF FLUCTUATIONS [address] active 4 MUSCLE WASTING AND ATROPHY, NOT ELSEWHERE CLASSIFIED, UNSPECIFIED SITE [address] active 5 MUSCLE WEAKNESS (GENERALIZED) [address] active 6 NEED FOR ASSISTANCE WITH PERSONAL CARE [address] active 7 ADULT FAILURE TO THRIVE [address] active 8 ALTERED MENTAL STATUS, UNSPECIFIED 023 06/26/[address] completed 9 ATHEROSCLEROTIC HEART DISEASE OF [place] CORONARY ARTERY WITHOUT ANGINA PECTORIS [address] active 10 FACIAL WEAKNESS [address] active 11 HEART FAILURE, UNSPECIFIED [address] active 12 PARKINSON'S DISEASE 023 08/04/[address] completed 13 [address] ELEVATION (STEMI) MYOCARDIAL INFARCTION OF UNSPECIFIED SITE [address] active 14 [address]OMEGALY [address] active 15 CHRONIC KIDNEY DISEASE, STAGE 3 UNSPECIFIED 023 04/20/[address] completed 16 FUSION OF SPINE, CERVICAL REGION [address] active 17 ISCHEMIC CARDIOMYOPATHY [address] active 18 NON-PRESSURE CHRONIC ULCER OF LEFT HEEL AND MIDFOOT WITH UNSPECIFIED SEVERITY [address] active 19 OLD MYOCARDIAL INFARCTION [address] active 20 PLEURAL EFFUSION IN OTHER CONDITIONS CLASSIFIED ELSEWHERE [address] active 21 SHORTNESS OF BREATH 023 06/26/[address] completed 22 STIFFNESS OF UNSPECIFIED JOINT, NOT ELSEWHERE CLASSIFIED [address] active 23 TYPE 2 DIABETES MELLITUS WITH HYPERGLYCEMIA [address] active 24 UNSPECIFIED CONVULSIONS [address] active 25 SEBORRHEIC DERMATITIS, UNSPECIFIED [address] active 26 ATHEROSCLEROSIS OF CORONARY ARTERY 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 ANGINA PECTORIS 023 02/08/[address] completed 27 ATHEROSCLEROSIS OF CORONARY ARTERY 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 ANGINA PECTORIS [address] active 28 BENIGN PROSTATIC HYPERPLASIA WITH LOWER URINARY TRACT SYMPTOMS [address] active 29 CHRONIC KIDNEY DISEASE, UNSPECIFIED 023 04/20/[address] completed 30 CONVERSION DISORDER WITH SEIZURES OR CONVULSIONS [address] active 31 GASTRO-ESOPHAGEAL REFLUX DISEASE WITHOUT ESOPHAGITIS 023 [id number] SNOMED CT active 32 HYPOTHYROIDISM, UNSPECIFIED [address] active 33 MUSCLE WEAKNESS (GENERALIZED) 023 06/26/[id number] completed 34 STIFFNESS OF LEFT ELBOW, NOT ELSEWHERE CLASSIFIED [address] active 35 STIFFNESS OF LEFT SHOULDER, NOT ELSEWHERE CLASSIFIED [address] active 36 TYPE 2 DIABETES MELLITUS WITH DIABETIC MONONEUROPATHY [address] active 37 NON-PRESSURE CHRONIC ULCER OF UNSPECIFIED HEEL AND MIDFOOT WITH UNSPECIFIED SEVERITY [address] active 38 OTHER SEIZURES 023 02/07/[address] completed 39 OTHER SPECIFIED DISORDERS OF BRAIN [address] active 40 COGNITIVE COMMUNICATION DEFICIT 023 01/12/[address] completed 41 DYSPHAGIA, PHARYNGEAL PHASE 023 01/12/[id number] completed 42 DYSPHAGIA, UNSPECIFIED 023 01/12/[address] completed 43 UNSPECIFIED CONVULSIONS 023 02/07/[address] completed 44 CHRONIC COMBINED SYSTOLIC (CONGESTIVE) AND DIASTOLIC (CONGESTIVE) HEART FAILURE [address] active 45 TYPE 2 DIABETES MELLITUS WITH HYPERGLYCEMIA 023 02/07/[id number] completed 46 CHRONIC KIDNEY DISEASE, STAGE 3B [address] active 47 METHICILLIN RESISTANT STAPHYLOCOCCUS AUREUS INFECTION, UNSPECIFIED SITE 022 02/07/[address] completed 48 VITAMIN D DEFICIENCY, UNSPECIFIED [address] active 49 ENCOUNTER FOR SCREENING FOR MALIGNANT NEOPLASM OF PROSTATE 022 12/18/[address] completed 50 ENCOUNTER FOR SCREENING FOR MALIGNANT NEOPLASM OF PROSTATE 022 04/20/[address] completed 51 ESSENTIAL TREMOR 021 02/07/[address] completed 52 HYPOMAGNESEMIA [address] active 53 ACUTE EMBOLISM AND THROMBOSIS OF DEEP VEINS OF LEFT UPPER EXTREMITY 021 02/07/[id number] completed 54 ACUTE EMBOLISM AND THROMBOSIS OF DEEP VEINS OF RIGHT UPPER EXTREMITY 021 06/26/[address] completed 55 LOCALIZED SWELLING, MASS AND LUMP, LOWER LIMB, BILATERAL [id number] active 56 OTHER MUSCLE SPASM [address] active 57 ACUTE RESPIRATORY FAILURE WITH HYPOXIA 021 02/07/[address] completed 58 ANEMIA, UNSPECIFIED [address] active 59 HEART FAILURE, UNSPECIFIED 021 04/20/[address] completed 60 OTHER SPECIFIED GLAUCOMA [address] active 61 TYPE 2 DIABETES MELLITUS WITHOUT COMPLICATIONS 021 02/07/[address] completed 62 UNSPECIFIED ATRIAL FIBRILLATION [address] active 63 MAJOR DEPRESSIVE DISORDER, RECURRENT, UNSPECIFIED [address] active 64 OTHER ABNORMALITIES OF GAIT AND MOBILITY 021 02/07/[address] completed 65 ACTIVITY, SLEEPING 021 02/07/[address] completed 66 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 [address] active 67 NASAL CONGESTION 021 06/26/[address] completed 68 RESTLESS LEGS SYNDROME [address] active 69 ACUTE KIDNEY FAILURE, UNSPECIFIED [address] active 70 CEREBRAL INFARCTION, UNSPECIFIED 021 02/07/[address] completed 71 HYPERKALEMIA [address] active 72 DIRECT INFECTION OF LEFT KNEE IN INFECTIOUS AND PARASITIC DISEASES CLASSIFIED ELSEWHERE 021 02/07/[address] completed 73 NON-PRESSURE CHRONIC ULCER OF BUTTOCK LIMITED TO BREAKDOWN OF SKIN [address] active 74 OTHER CHRONIC PAIN [address] active 75 PERSONAL HISTORY OF COVID-[address] active 76 CONTACT WITH AND (SUSPECTED) EXPOSURE TO OTHER VIRAL COMMUNICABLE DISEASES 020 04/20/[address] completed 77 COVID-19 020 10/05/[address] completed 78 ENCOUNTER FOR OBSERVATION FOR SUSPECTED EXPOSURE TO OTHER BIOLOGICAL AGENTS RULED OUT 020 04/20/[address] completed 79 MUSCLE WEAKNESS (GENERALIZED) 02/07/[address] completed 80 NEED FOR ASSISTANCE WITH PERSONAL CARE 06/26/[id number] completed 81 ENCOUNTER FOR SCREENING FOR OTHER VIRAL DISEASES 04/20/[address] completed 82 DEPENDENCE ON WHEELCHAIR 019 02/07/[address] completed 83 DIFFICULTY IN WALKING, NOT ELSEWHERE CLASSIFIED 019 06/26/[address] completed 84 DISORDER OF THYROID, UNSPECIFIED [address] active 85 ESSENTIAL (PRIMARY) HYPERTENSION [address] active 86 FRONTAL LOBE AND EXECUTIVE FUNCTION DEFICIT FOLLOWING OTHER CEREBROVASCULAR DISEASE [address] active 87 GOUT, UNSPECIFIED 31976387 SNOMED CT active 88 HEART DISEASE, UNSPECIFIED 019 02/07/[address] completed 89 HEMIPLEGIA AND HEMIPARESIS FOLLOWING CEREBRAL INFARCTION AFFECTING LEFT NON-DOMINANT SIDE [address] active 90 HYPERLIPIDEMIA, UNSPECIFIED [address] active 91 MEMORY DEFICIT FOLLOWING CEREBRAL INFARCTION [address] active 92 MUSCLE WASTING AND ATROPHY, NOT ELSEWHERE CLASSIFIED, UNSPECIFIED SITE 019 02/07/[address] completed 93 NEURALGIA AND NEURITIS, UNSPECIFIED [address] active 94 OTHER LACK OF COORDINATION 019 02/07/[address] completed 95 ST ELEVATION (STEMI) MYOCARDIAL INFARCTION INVOLVING OTHER CORONARY ARTERY OF ANTERIOR WALL [address] active 96 Type 2 diabetes mellitus without complications 019 01/03/[address] completed 97 UNSTEADINESS ON FEET 019 04/20/[address] completed 98 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 [address] active Reason for Referral No Reasons for Referral Entered Social History Social History Observation Description Start Date End Date Code Code System Current Smoking Status Tobacco smoking consumption unknown 889242273 SNOMED CT Sex Assigned At Male 1960 58094-6 [facility] Vital Signs Code Code System Vitals Name Values and Units Timing Information 9279-1 [facility] Respiratory Rate Value=16.0 Units=/m in 10/28/2023 8310-5 [facility] Body Temperature Value=98.2 Units= F 10/28/2023 8867-4 [facility] Heart rate Value=84.0 Units=/min 65841-7 [facility] O2 % BldC Oximetry Value=97.0 Units= % 10/28/2023 15450-1 [facility] Pain Level Value=0.0 10/28/2023 8462-4 [facility] Blood Pressure-Diastolic Value=74 Un its=mmHg 10/11/2023 8480-6 [facility] Blood Pressure-Systolic Awccu=935 Un its=mmHg 10/11/2023 2339-0 [facility] Blood Sugar Zsgnu=283.0 Units=mg/dL 10/11/2023 49270-3 [facility] Weight Ymhxe=013.0 Units=Lbs 8302-2 [facility] Height Value=75.0 Units=Inches 02/08/2023
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
--- OUTSIDE RECORDS SUMMARY | 2025-01-24 20:35 | XMS_ITS | Clinical Summary ---
Author Organization [facility] Address [address] [place] [address] Care Team Providers Care Mechanical Developer Prover Name Role Phone Unavailable Primary Care Provider Unavailabl e Allergies No known active allergies Medications acetaminophen (TYLENOL) 325 MG tablet Take 650 mg by mouth every 6 (six) hours as needed for mild pain (1 - 3) or Temp > or equal to 101F (38.3C) (pain). 9 Active albuterol (ACCUNEB) (2.5 MG/3ML) 0.083% nebulizer solution Take 2.5 mg by nebulization every 4 (four) hours as needed for wheezing (bronchospasm). 9 Active allopurinol (ZYLOPRIM) 100 MG tablet Take 100 mg by mouth once a day. 9 Active amiodarone (PACERONE) 200 MG tablet Take 400 mg by mouth 2 (two) times a day. 9 Active Apixaban (Eliquis) 5 MG tablet Take 5 mg by mouth 2 (two) times a day. Active aspirin (aspirin) 81 MG EC tablet Take 81 mg by mouth once a day. Active atorvastatin (LIPITOR) 80 MG tablet Take 80 mg by mouth nightly. 9 Active Baclofen (LIORESAL) 5 MG tablet tablet Take 5 mg by mouth 2 (two) times a day as needed for muscle spasms. 9 Active bisacodyl (DULCOLAX) 10 MG suppository Insert 10 mg into the rectum daily as needed for constipation. 9 Active carvedilol (COREG) 3.125 MG tablet Take 3.125 mg by mouth 2 (two) times a day. 9 Active dexamethasone 0.5 MG/5ML solution once a day. Active dextrose 10 % infusion continuously. Active docusate sodium (COLACE) 100 MG capsule Take 100 mg by mouth 2 (two) times a day. Active gabapentin (NEURONTIN) 300 MG capsule Take 300 mg by mouth 2 (two) times a day. 9 Active glucagon 1 MG injection Inject 1 mg into the shoulder, thigh, or buttocks every 30 (thirty) minutes as needed for low blood sugar. 9 Active hydrocortisone 2.5 % cream Apply 1 application topically 3 (three) times a day. Active insulin lispro (HumaLOG) 100 UNIT/ML injection Inject under the skin 4 (four) times a day with meals and nightly. Active levothyroxine (SYNTHROID, LEVOTHROID) 50 MCG tablet Take 50 mcg by mouth Daily at 6am. Active lidocaine (XYLOCAINE) 5 % ointment Place 1 application on the skin once a day. Apply daily remove and discard patch within 12hours Active Menthol-Zinc Oxide (CALMOSEPTINE) 0.44-20.625 % ointment Apply 1 application topically 2 (two) times a day. 9 Active pantoprazole (PROTONIX) 20 MG ec/dr tablet Take 40 mg by mouth once a day. Active polyethylene glycol (MIRALAX) packet Take 17 g by mouth once a day. Active SITagliptin (JANUVIA) 100 MG tablet Take 100 mg by mouth once a day. Active spironolactone (ALDACTONE) 25 MG tablet Take 25 mg by mouth 2 (two) times a day. 9 Active tamsulosin (FLOMAX) 0.4 MG capsule Take 0.4 mg by mouth daily with dinner. Active traMADol (ULTRAM) 50 MG tablet Take 50 mg by mouth every 4 (four) hours as needed for moderate pain (4 - 6). 9 Active Active Problems Problem Noted Date Diagnosed Date Stroke 01/22/2019 Immunizations Immunization Administration Dates Next Due Influenza Split 01/23/2019(Deferred: Received ou tside of this facility) Family History Medical History Relation Name Comments Cancer Father Hypertension Mother Relation Name Status Comments Father Mother Social History Tobacco Use Types Packs/Day Years Used Date Smoking Tobacco: Never Alcohol Use Standard Drinks/Week Comments Not Currently 0 (1 standard drink = 0.6 oz pur e alcohol) Sex and Gender Information Value Date Recorded Sex Assigned at Not on file Legal Sex Male 3:53 PM EDT Gender Identity Not on file Sexual Orientation Not on file Last Filed Vital Signs Vital Sign Reading Time Taken Comments Blood Pressure 116/69 02/13/2019 8:58 AM CDT Pulse 83 02/13/2019 8:58 AM CDT Temperature 35.9 C (96.7 F) 02/13/2019 8:58 AM CDT Respiratory Rate 22 02/13/2019 8:58 AM CDT Oxygen Saturation 96% 02/13/2019 8:58 AM CDT Inhaled Oxygen Concentration - - Weight 97.5 kg (215 lb) 02/10/2019 1:00 AM CDT Height 190.5 cm (6' 3 ) 01/23/2019 1:34 PM CDT Body Mass Index 26.87 01/23/2019 1:34 PM CDT Plan of Treatment Not on file Advance Directives * Full Resuscitation (Latest Code Status on File) Date Activated Date Inactivated Comments 01/22/2019 8:10 PM 02/13/2019 2:18 PM
--- OUTSIDE RECORDS SUMMARY | 2025-01-24 20:35 | XMS_ITS | Continuity of Care Document ---
Author Organization [facility] Address [address] [place] [address] Phone Care Team Providers Care Pusher Operator Name Role Phone Lucas Boyd MD Unavailable Unavailable Advance Directives Directive Yes / No Effective Date File Name No Information Encounters Encounter Description Practice Location Reason(s) For Visit Diagnoses Date Provider Providers Copied on Encounter [facility], [address], [place], [place], [id number], [place] tel:[phone] SEC Suraj MEEHAN Professional No Information [address] [facility] [address], [place], [place], [id number], [place]. tel:[phone] Referring Provider: Ike Rodriguez OD, [address], [address]. tel:[phone] Family History Family Member Type Diagnosis Age At Onset No Information Payers Payer name Insurance type Covered libertarian ID Authoriza tion(s) Medicaid [facility] [id number] Social History Type Description Quantity Date Captured Comments Sex Male Smoking Status No Information Chief Complaint And Reason For Visit No Information Reason For Referral Reason For Referral No Information History Of Present Illness Encounter Date Complaint History Of Prese nt Illness No Information Functional Status Date Functional Assessmen t No Information Instructions Date Instruction Additional Infor mation No Information Assessments Type Assessment Date No Information Patient Care Teams Name Effective Dates (start - stop) Status Members No Information
--- OUTSIDE RECORDS SUMMARY | 2025-01-24 20:35 | XMS_ITS | Referral Summary ---
Author Organization [facility] [address] Address [address] [place] [address] Care Team Providers Care Scaffold Builder Name Role Phone Rashid Thornton MD Primary Care Provider [phone] Encounters Date Type Department Care Team Description 01/06/2025 10:30 AM DIRECTOR HEALTH Office Visit [facility] Cardiology [address] [facility] [address] [place] [address] Helga Taylor NP Coronary artery disease involving nome coronary artery of nome heart without angina pectoris (Primary Dx); Cardiomyopathy, ischemic; VT (ventricular tachycardia) (HCC); Postoperative atrial fibrillation (HCC); History of CVA (cerebrovascular accident) 12/27/2024 9:05 PM DIRECTOR HEALTH - 12/27/2024 11:59 PM DIRECTOR HEALTH [place] [address] Discharge Disposition: Discharge to home or self care from Last 3 Months Allergies Active Allergy Reactions Criticality Noted Date Comments Aspartame Other (See comments) Low 08/11/2024 HEADACHE Medications aspirin 81 mg enteric coated tabletIndication s:acute myocardial infarction Take 1 tablet (81 mg total) by mouth daily 30 tablet 11 01/24/20 19 Active ipratropium-albu teroL (DUO-NEB) 0.5-2.5 [...] total) by mouth nightly 30 tablet 05/25/[address] (CYMBALTA) 60 mg capsule Take 1 capsule (60 mg total) by mouth daily 30 capsule 05/26/20 Active furosemide (LASIX) 40 mg tablet Take 1 tablet (40 mg total) by mouth 2 (two) times a day 60 tablet 05/25/20 Active levothyroxine (SYNTHROID) 137 mcg tablet Take 1 tablet (137 mcg total) by mouth stave jointer before breakfast 30 tablet 05/26/20 Active pregabalin [...] brimonidine (ALPHAGAN) 0.2 % ophthalmic solution 12/26/19 25 Active budesonide-formo teroL (SYMBICORT) 160-4.5 mcg/actuation inhaler 12/01/19 25 Active LORazepam (ATIVAN) 2 mg/mL concentrated solution Take 0.5 mg by mouth every 4 (four) hours as needed Active magnesium citrate solution Take 296 mL by mouth 02/02/20 23 Active magnesium hydroxide (MILK OF MAGNESIA) suspension [...] 90 mcg/actuation inhaler 12/01/19 25 Active multivitamin,tx- vawy-Kr-RW-min 27-0.4 mg tablet Take 1 tablet by [...] (25 mg total) by mouth daily 05/19/20 025 Discontin ued(Alter mamie therapy) Trulicity 0.75 mg/0.5 mL pen injector Inject 0.5 mL (0.75 mg total) under the skin once a week 02/08/20 23 025 Discontin ued(Alter mamie therapy) levETIRAcetam (KEPPRA) [...] CABG 05/22/2019 Coronary artery disease invo lving nome coronary artery of nome heart without angina pectoris 04/21/2019 Cardiomyopathy, ischemic 04/21/2019 Postoperative atrial fibrillation 04/21/2019 Ischemic stroke 01/12/2019 Cardiogenic shock 01/12/2019 Hyperglycemia 01/12/2019 Bacteremia 01/12/2019 VT (ventricular tachycardia) 01/12/2019 VF (ventricular fibrillation) 01/12/2019 Coronary artery disease of n ative heart with stable angina pectoris 01/08/2019 Overview (01/09/2019): Added automatically from request for surgery [id number] Acute ST elevation myocardia l infarction (STEMI) due to occlusion of left coronary artery Resolved Problems Problem Noted Date Diagnosed Date Resolved Date ERAN (acute kidney injury) 01/12/2019 Immunizations Immunization Administration Dates Next Due Pfizer SARS-CoV-2 Monovalent Vaccination (12+ Yrs) PURPLE 01/12/2022 Pfizer Sars-Cov-2 Bivalent Vaccination (12+ YRS) 10/19/2022 Pneumococcal Conjugate Pcv20 11/02/2022 Social History Tobacco Use Types Packs/Day Years [...] on file Legal Sex Male 12:35 PM DIRECTOR HEALTH Gender Identity Not on file Sexual Orientation Not on file Last Filed Vital Signs Vital Sign Reading Time Taken Comments Blood Pressure 102/58 01/06/2025 10:54 AM DIRECTOR HEALTH Pulse 70 01/06/2025 10:54 AM DIRECTOR HEALTH Temperature 36.4 C (97.5 F) 06/25/2023 12:49 PM CDT Respiratory Rate 18 06/25/2023 12:49 PM CDT Oxygen Saturation 98% 01/06/2025 10:54 AM DIRECTOR HEALTH Inhaled Oxygen Concentration - - Weight 101.2 kg (223 lb) 01/06/2025 10:54 AM DIRECTOR HEALTH Height 190.5 cm (6' 3 ) 01/06/2025 10:54 AM DIRECTOR HEALTH Body Mass Index 27.87 01/06/2025 10:54 AM DIRECTOR HEALTH Plan of Treatment Not on file Medical Devices Implanted Type Area [employer]i Truck Driver Device Identifier Shelf Expiration Date Model / Serial / Lot [id number] Hemashield 6x2in 2 Velour Knitted Impregnated Nonsealed Tapered - [id number] - [id number] Implanted:Qty: 1 on 01/10/2019 by Gui Monae MD at [facility] N/A: Heart [employer] [id number] 03/04/2021 [id number] / [id number] Procedures Procedure Name Priority Date/Time Associated Diagnosis Comments EGFR STAT 12/27/2024 3:46 PM DIRECTOR HEALTH COMPREHENSIVE METABOIC PANEL, SERUM STAT 12/27/2024 3:46 PM DIRECTOR HEALTH DIFFERENTIAL AUTO Routine 12/27/2024 3:4 6 PM DIRECTOR HEALTH CBC WITH AUTO DIFFERENTIAL Routine 12/27/2024 3:46 PM DIRECTOR HEALTH from Last 3 Months Results * eGFR (12/27/2024 3:46 PM DIRECTOR HEALTH) eGFR 65 >=60 mL/min/1. 73 m2 Comment: [...] of Race in Diagnosing Kidney Disease, JASN 202). The CKD-EPI equation should not be used for patients with unstable renal function and has not been validated in children and those over 70. Current interpretive data was last reviewed 2021. Blood 12/27/2024 3:46 PM DIRECTOR HEALTH 12/27/2024 9:12 PM DIRECTOR HEALTH us Kenia Hoffman NP LAB BLOOD ORDERABLES Jaylyn corey Result [facility] [id number] Department [place] [address] * (ABNORMAL) Differential, auto (12/27/2024 3:46 PM DIRECTOR HEALTH) Neutrophil abs 8.0(H) 1.5 - 6.5 K/cumm Imm gran abs 0.1 0.0 - 0.1 K/cumm [facility] Lymphocyte abs 1.1 0.8 - 3.3 K/cumm [facility] Monocyte abs 0.9(H) 0.2 - 0.8 K/cumm [facility] Eosinophil abs 0.1 0.0 - 0.5 K/cumm [facility] Basophil abs 0.1 0.0 - 0.1 K/cumm [facility] Neutrophil pct 77.7 % [facility] Comment: Interpretive Data Percent cell count reference ranges are not reported, since discordance with absolute values may lead to misinterpretation of CBC data. Current Interpretive Data was last revised on 2018. Imm gran pct 1.3 % [facility] Comment: Interpretive Data Percent cell count reference ranges are not reported, since discordance with absolute values may lead to misinterpretation of CBC data. Current Interpretive Data was last revised on 2018. Lymphocyte pct 10.8 % [facility] Comment: Interpretive Data Percent cell count reference ranges are not reported, since discordance with absolute values may lead to misinterpretation of CBC data. Current Interpretive Data was last revised on 2018. Monocyte pct 9.1 % [facility] Comment: Interpretive Data Percent cell count reference ranges are not reported, since discordance with absolute values may lead to misinterpretation of CBC data. Current Interpretive Data was last revised on 2018. Eosinophil pct 0.6 % [facility] Comment: Interpretive Data Percent cell count reference ranges are not reported, since discordance with absolute values may lead to misinterpretation of CBC data. Current Interpretive Data was last revised on 2018. Basophil pct 0.5 % [facility] Comment: Interpretive Data Percent cell count reference ranges are not reported, since discordance with absolute values may lead to misinterpretation of CBC data. Current Interpretive Data was last revised on 2018. Blood 12/27/2024 3:46 PM DIRECTOR HEALTH 12/27/2024 9:07 PM DIRECTOR HEALTH Kenia Hoffman NP LAB BLOOD ORDERABLES Jaylyn corey Result [facility] [id number] Department [place] [address] * (ABNORMAL) Comprehensive metabolic panel, serum (12/27/2024 3:46 PM DIRECTOR HEALTH) Sodium 140 135 - 145 mmol/L Potassium, sr 4.6 3.6 - 5.2 mmol/L [facility] Chloride 102 97 - 110 mmol/L [facility] CO2 21(L) 22 - 32 mmol/L [facility] Anion gap 17(H) 2 - 15 mmol/L [facility] BUN 55(H) 6 - 25 mg/dL [facility] Creatinine 1.22 0.80 - 1.30 mg/dL [facility] Glucose 122 70 - 199 mg/dL [facility] Comment: Interpretive Data Fasting glucose >/= 126 [...] classification and Diagnosis of Diabetes Diabetes Care 2021; 46: S19-S40. Current interpretive data was last [...] Units/L [facility] Blood 12/27/2024 3:46 PM DIRECTOR HEALTH 12/27/2024 9:10 PM DIRECTOR HEALTH us Kenia Hoffman NP LAB BLOOD ORDERABLES Jaylyn corye Result [facility] [id number] Department [place] [address] * (ABNORMAL) CBC with auto differential (12/27/2024 3:46 PM DIRECTOR HEALTH) WBC 10.3(H) 3.8 - 9.9 K/cumm Hgb [...] RDW CV 17.0(H) 11.1 - 14.9 % [facility] RDW SD 56.9(H) 35.7 - 48.1 fL [facility] NRBC abs 0.00 0.00 - 0.01 K/cumm [facility] Blood 12/27/2024 3:46 PM DIRECTOR HEALTH 12/27/2024 9:07 PM DIRECTOR HEALTH us Kenia Hoffman NP LAB BLOOD ORDERABLES Jaylyn corey Result [facility] [id number] Department [place] [address] from Last 3 Months Insurance [facility] MEDICARE ADVANTAGE [facility] IDID MEDICARE [facility] MEDICARE ADVANTAGE Advance Directives For more information, please contact: [phone] Documents on File Type Date Recorded Patient Payroll Director Expl anation ADVANCE DIRECTIVE 02/10/2020 ADVANCE DIRECTIVE 01/15/2020 * Full Code (Latest Code Status on File) Date Activated Date Inactivated Comments 05/22/2023 12:09 PM 05/25/2023 10:31 PM * Full Code Date Activated Date Inactivated Comments 01/08/2019 4:00 PM 01/22/2019 7:08 PM Care Teams Scaffold Builder Relationship Specialty Start Date End Date Rashid Thornton MD [address] [place] [id number] PCP - General Family Medicine 06/05/24
--- OUTSIDE RECORDS SUMMARY | 2025-01-24 20:35 | XMS_ITS | Clinical Summary ---
Author Organization [facility] Address [address] [place] [address] Phone Care Team Providers Care Quality Control Operator Name Role Phone Caitlin Castillo MD Primary Care Provider [phone] Micah Romero MD Unavailable Allergies Active Allergy Reactions Criticality Noted Date Comments Aspartame Other (see Comments) 08/11/2024 HEADACHE Medications acetaminophen (TYLENOL) 500 MG Tablet Take 1,000 mg by mouth every 8 hours as needed. Active albuterol (PROVENTIL, VENTOLIN) (2.5 MG/3ML) 0.083% Nebulizer Soln take 2.5 mg by inhalation. 9 Active amiodarone (CORDARONE) 200 MG Tablet Take 400 mg by mouth. 9 Active allopurinol (ZYLOPRIM) 100 MG Tablet Take 100 mg by mouth. 9 Active amLODIPine (NORVASC) 2.5 MG Tablet Take 5 mg by mouth daily. Active atorvastatin (LIPITOR) 40 MG Tablet Take 40 mg by mouth nightly. 3 Active apixaban (ELIQUIS) 5 MG Tablet Take 5 mg by mouth. Active ascorbic acid 500 MG Tablet Take 500 mg by mouth daily. 3 Active aspirin 81 MG Chewable Tablet Take 1 Tablet by mouth daily. Active Dymista 137-50 MCG/ACT Suspension by Nasal route. 3 Active baclofen (LIORESAL) 5 MG Tablet Take 10 mg by mouth 3 times daily. 9 Active bisacodyl 10 MG Suppository 10 mg by Rectal route as needed (if no result from MOM). 9 Active carvedilol (COREG) 3.125 MG Tablet Take 3.125 mg by mouth. 9 Active cetirizine (ZyrTEC) 10 MG Tablet Take 10 mg by mouth daily. Active cefUROXime (CEFTIN) 500 MG Tablet 4 Active docusate sodium 100 MG Capsule Take 100 mg by mouth. 9 Active dextrose 10 % Solution continuously. Active Diclofenac Sodium (VOLTAREN) 1 % Gel Apply. 3 Active dexamethasone (DECADRON) 0.5 MG/5ML Solution once a day. Ac tive dulaglutide (Trulicity) 0.75 MG/0.5ML Solution Pen-injector injection 0.75 mg by Subcutaneous route once a week. Sunday 3 Active Jardiance 25 MG Tablet Take 25 mg by mouth daily. 3 Active DULoxetine (CYMBALTA) [address] Particles Take 60 mg by mouth daily. 3 Active febuxostat (ULORIC) 40 MG Tablet 4 Active fluconazole (DIFLUCAN) 150 MG Tablet 4 Active furosemide (LASIX) 40 MG Tablet Take 60 mg by mouth in the morning and at bedtime. 3 Active ferrous gluconate 324 (38 Fe) MG Tablet Take 324 mg by mouth. Active hydrocortisone 1 % Cream 4 Active Glucagon, rDNA, (Glucagon Emergency) 1 MG Kit 9 Active gabapentin (NEURONTIN) 300 MG Capsule Take 300 mg by mouth. 9 Active insulin glargine (LANTUS) 100 UNIT/ML SolutionIndicat ions:Type 2 Diabetes Mellitus 12 Units by Subcutaneous route nightly. Indications: Type 2 Diabetes Active hydrocortisone 2.5 % Cream Apply 1 Application. 9 Active HumaLOG KwikPen 100 UNIT/ML Solution Pen-injector 3 Units by Subcutaneous route 3 times daily (before meals). Sliding scale also 3 Active ipratropium-alb uterol (DUO-NEB) 0.5-2.5 (3) MG/3ML Solution take 3 mL by inhalation every 6 hours as needed. 1 Active latanoprost (XALATAN) 0.005 % Solution Place 1 Drop in both eyes nightly. 3 Active insulin lispro (HumaLOG) 100 UNIT/ML Solution 3 Units by Subcutaneous route 3 times daily (before meals). 9 Active levETIRAcetam (KEPPRA XR) 500 MG TABLET SR 24 HR Take 500 mg by mouth 2 times daily. 3 Active levothyroxine (SYNTHROID) 137 MCG Tablet Take 137 mcg by mouth daily. 3 Active lidocaine (XYLOCAINE) 5 % Ointment by Transdermal route daily. Apply to left shoulder topically in the morning related to stiffness of left shoulder, not elsewhere classified; other chronic pain. On for 12 hours, then off for 12 hours 9 Active lisinopril (PRINIVIL, ZESTRIL) 2.5 MG Tablet Take 1 Tablet by mouth daily. Active loperamide (IMODIUM) 2 MG Capsule Take 1 Capsule by mouth every 4 hours as needed. 4 Active Magnesium Oxide 400 MG Capsule Take by mouth. Active losartan (COZAAR) 50 MG Tablet Take 25 mg by mouth. 4 Active LUTEIN PO Take by mouth. Activ e magnesium citrate (V-R MAGNESIUM CITRATE) 1.745 GM/30ML Solution Take 296 mL by mouth. 3 Active metoprolol Succinate (TOPROL-XL) 25 MG TABLET SR 24 HR Take 25 mg by mouth. 3 Active metroNIDAZOLE (METROGEL) 1 % Gel Apply. 3 Active nystatin [id number] UNIT/GM Powder Apply 2 times daily. 3 Active nitrofurantoin (MACRODANTIN) 100 MG Capsule 4 Active pantoprazole (PROTONIX) 20 MG Tablet Delayed Response Take 40 mg by mouth. 9 Active omeprazole (PriLOSEC) 20 MG CAPSULE DELAYED RELEASE Take 20 mg by mouth daily. Active potassium chloride 10 MEQ/100ML Solution 10 mEq by Intravenous route. Active pregabalin (Lyrica) 75 MG Capsule Take 75 mg by mouth 2 times daily. 3 Active SITagliptin (JANUVIA) 100 MG Tablet Take 100 mg by mouth. Active rOPINIRole (REQUIP) 1 MG Tablet 3 Active primidone (MYSOLINE) 50 MG Tablet Take 1 Tablet by mouth. 3 Active spironolactone (ALDACTONE) 25 MG Tablet Take 25 mg by mouth. 9 Active traMADol (ULTRAM) 50 MG Tablet Take 50 mg by mouth. 9 Active tamsulosin (FLOMAX) 0.4 MG Capsule Take 0.8 mg by mouth nightly. 9 Active triamcinolone (KENALOG) 0.1 % Cream Apply. Face/neck 3 Active traMADol (ULTRAM) 50 MG Tablet Take 100 mg by mouth every 8 hours as needed. 3 Active brimonidine (ALPHAGAN) 0.2 % Solution Place 1 Drop in affected eye(s) 2 times daily. Active Sodium Phosphates (FLEET ENEMA RE) by Rectal route. I APPLICATION RECTALLY NEEDED FOR CONSTIPATION IF NO RESULTS 1 DAY AFTER SUPPOSITORY Active Lidocaine 4 % Patch 1 Patch by Transdermal route every 24 hours. Active LORazepam oral (ATIVAN) 2 MG/ML Concentrate Take 0.5 mg by mouth every 4 hours as needed. Active melatonin 3 MG Tablet Take 5 mg by mouth nightly. Active miconazole (JOSÉ MIGUEL; MICATIN) 2 % Cream Apply nightly. Application Site: GROIN/PENIS (Description and Location) Active magnesium hydroxide (Milk of Magnesia) 400 MG/5ML Suspension Take 30 mL by mouth daily as needed. Active Carboxymethylce llulose Sodium (ARTIFICIAL TEARS OP) Place 1 Drop in affected eye(s) 2 times daily. Both eyes for dry eyes Active Azelastine HCl 137 MCG/SPRAY Solution 1 [place] by Nasal route every 12 hours as needed (congestion). Active Biotin 5000 MCG CapsuleIndicati ons:Adult failure to thrive Take 5,000 mcg by mouth daily. Indications: Adult failure to thrive Active insulin lispro (HumaLOG) 100 UNIT/ML Solution by Subcutaneous route. Use as directed: Sliding scale 0-150=0 0-60= Glucagon 1 mg 151-200=3 201-250=6 251-300=9 301-350=12 351-400=15 401-500=18 >500 Notify MD immediately Active levETIRAcetam (KEPPRA) 750 MG Tablet Take 2 Tablets by mouth every 12 hours. Active Tirzepatide 5 MG/0.5ML Solution Auto-injector 5 mg by Subcutaneous route once a week. Active MULTIPLE VITAMINS-MINERA LS PO Take 1 Tablet by mouth daily. Active naloxone HCl (Narcan) 4 MG/0.1ML Liquid 1 [place] by Nasal route as needed for Opioid Reversal. Administer in one nostril for symptoms of overdose (severe sleepiness, breathing problems, not responsive). Call 911. May repeat 1 spray in alternate nostril in 2-3 minutes if needed. Active polyethylene glycol (GLYCOLAX, MIRALAX) 17 g Pack Take 17 g by mouth daily as needed (constipation). Dissolve in 4-8 oz of liquid. Active amoxicillin-cla vulanate (AUGMENTIN) 875-125 MG TabletIndicatio ns:STARTED 11/08/24 Take 1 Tablet by mouth 2 times daily. Indications: STARTED 11/08/24 Active Active Problems Problem Noted Date Diagnosed Date Lymphadenopathy, retroperitoneal 11/27/2024 History of coronary artery bypass graft 11/27/19 History of cardioembolic stroke 11/27/2024 Normocytic anemia 11/27/2024 Bladder-neck obstruction 11/27/2024 Encounters Date Type Department Care Team Description 11/27/2024 11:20 AM INTERNAL CONTROL CONSULTANT [facility] [address] [place] [address] Bryan Panchal MD Normocytic anemia; Bladder-neck obstruction Discharge Disposition: Discharged to home or Selfcare 11/27/2024 10:20 AM INTERNAL CONTROL CONSULTANT [facility] [address] [place] [address] Bryan Panchal MD History of coronary artery bypass graft (Primary Dx); Lymphadenopathy, retroperitoneal; History of cardioembolic stroke; Normocytic anemia; Bladder-neck obstruction Discharge Disposition: Discharged to home or Selfcare 11/27/2024 Travel 11/20/2024 Results Follow-Up [facility] [address] [place] [address] Micah Romero MD 11/13/2024 12:10 PM INTERNAL CONTROL CONSULTANT - 11/13/2024 1:10 PM INTERNAL CONTROL CONSULTANT [facility] [address] [place] [address] Micah Romero MD CYSTOSCOPY 11/13/2024 9:02 AM INTERNAL CONTROL CONSULTANT - 11/13/2024 2:57 PM INTERNAL CONTROL CONSULTANT [facility] [address] [place] [address] Micah Romero MD Discharge Disposition: Discharged to home or Selfcare 11/13/2024 Travel 11/03/2024 Travel 10/31/2024 12:11 PM INTERNAL CONTROL CONSULTANT - 10/31/2024 11:59 PM INTERNAL CONTROL CONSULTANT [facility] [address] [place] [address] Micah Romero MD Discharge Disposition: Discharged to home or Selfcare 10/31/2024 Travel from Last 3 Months Immunizations Immunization Administration Dates Next Due Covid-19, Mrna, Lnp-s, Pf, 30 Mcg/0.3 Ml Dose (P fizer) 02/16/2022,01/12/2022 Pneumococcal Vaccine - 13 Valent 03/22/2021 Pneumococcal conjugate PCV20 , polysaccharide [id number] conjugate, adjuvant, PF 11/02/2022 TDAP Vaccine 06/06/2021 Family History Medical History Relation Name Comments Cancer Father SKIN Prostate Cancer Father diagnosed ea rly 70s Rheumatoid Arthritis Mother Relation Name Status Comments Father Mother Social History Tobacco Use Types Packs/Day Years Used Date Smoking Tobacco: Former Cigarettes 1 30 1 974 - 2004 Smokeless Tobacco: Never Tobacco Cessation:Counseling Given: Not Answered Alcohol Use Standard Drinks/Week Comments Not Currently 0 (1 standard drink = 0.6 oz pur e alcohol) Sexually Active Control Partners Comments Not Currently Sex and Gender Information Value Date Recorded Sex Assigned at Not on file Legal Sex Male 10:55 PM CDT Gender Identity Not on file Sexual Orientation Not on file Last Filed Vital Signs Vital Sign Reading Time Taken Comments Blood Pressure 116/80 11/27/2024 10:53 AM INTERNAL CONTROL CONSULTANT Pulse 72 11/27/2024 10:53 AM INTERNAL CONTROL CONSULTANT Temperature 36.6 C (97.8 F) 11/27/2024 10:53 AM INTERNAL CONTROL CONSULTANT Respiratory Rate 16 11/27/2024 10:53 AM INTERNAL CONTROL CONSULTANT Oxygen Saturation 98% 11/27/2024 10:53 AM INTERNAL CONTROL CONSULTANT Inhaled Oxygen Concentration - - Weight 106.6 kg (235 lb) 11/27/2024 10:53 AM INTERNAL CONTROL CONSULTANT Height 190.5 cm (6' 3 ) 11/27/2024 10:53 AM INTERNAL CONTROL CONSULTANT Body Mass Index 29.37 11/27/2024 10:53 AM INTERNAL CONTROL CONSULTANT Plan of Treatment Upcoming Encounters Date Type Department Care Team (Late st Contact Info) Description 01/26/2025 11:20 AM CDT Office Visit [facility] [address] [place] [address] Bryan Panchal MD [address] [place] [address] Discharge Disposition: Discharged to home or Selfcare Health Maintenance Due Date Last Done Comments Hepatitis C Virus (HCV) Screening 1958 Colonoscopy 2003 Colorectal Cancer Screening 2003 Cologuard 2008 Immunochemical Fecal Occult Blood 2008 Zoster Immunization (1 of 2) 2008 Respiratory Syncytial Virus (RSV) Immunization (Adult) (1 - Risk 60-74 years 1-dose series) 2018 AAA Screening Ultrasound 2023 Influenza Immunization (#1) 2024 11/02/2022 SARS-COV-2 Immunization ( season) 2024 10/19/2022, 02/16/2022, 01/12/2022 Td Immunization Every 10 Yea rs (Adults With 1 Tdap) 06/06/2031 06/06/2021 TdaP Immunization Discontinued 06/06/2021 Pneumococcal Immunization (5 0+ years) Completed 11/02/2022, 03/22/2021 PSA Discussion Completed 11/27/2024 Hepatitis B Immunization Aged Out No longer eligible based on patient's age to complete this topic Meningococcal Immunization (ACWY) Aged Out No longer eligible based on patient's age to complete this topic Rotavirus Immunization Aged Out No lo nger eligible based on patient's age to complete this topic Procedures Procedure Name Priority Date/Time Associated Diagnosis Comments CBC WITH AUTO DIFFERENTIAL Routine 11/27/2024 11:45 AM INTERNAL CONTROL CONSULTANT Normocytic anemia IRON,TRANSFERN,CALC .TIBC,%SAT Routine 11/27/2024 11:45 AM INTERNAL CONTROL CONSULTANT Normocytic anemia FERRITIN Routine 11/27/2024 11:45 AM INTERNAL CONTROL CONSULTANT Normocytic anemia VITAMIN B12 Routine 11/27/2024 11:45 AM INTERNAL CONTROL CONSULTANT Normocytic anemia PSA DIAGNOSTIC,TOTAL Routine 11/27/2024 11:45 AM INTERNAL CONTROL CONSULTANT Normocytic anemia Bladder-neck obstruction CMP (COMPREHENSIVE METABOLIC PANEL) Routine 11/27/2024 11:45 AM INTERNAL CONTROL CONSULTANT Normocytic anemia COMPLETE BLOOD COUNT (CBC) WITH DIFF Routine 11/27/2024 11:45 AM INTERNAL CONTROL CONSULTANT Normocytic anemia CULTURE, URINE STAT 11/13/2024 1:05 PM INTERNAL CONTROL CONSULTANT CYSTOSCOPY 11/13/2024 12:10 PM INTERNAL CONTROL CONSULTANT RECURRENT URINARY TRACT INFECTION, BENIGN PROSTATIC HYPERPLASIA WITH OBSTRUCTION Special Needs Allergy: Aspartame Hx: Diabetes, HTN, Stroke-L hemiplegia & Hemiparesis, uses sit to stand equipment. Resides at [facility] POCT GLUCOSE Routine 11/13/2024 10:14 AM [address]OL [address] UROGRAPHY WO/W CONTRAST Routine 10/31/2024 1:34 PM INTERNAL CONTROL CONSULTANT Recurrent UTI POCT CREATININE Routine 10/31/2024 1:04 PM INTERNAL CONTROL CONSULTANT from Last 3 Months Results * (ABNORMAL) IRON,TRANSFERN,CALC.TIBC,%SAT (11/27/2024 11:45 AM INTERNAL CONTROL CONSULTANT) Pathologist [facility] IRON 91 31 - 144 mcg/dL 11/27/2024 12:45 PM INTERNAL CONTROL CONSULTANT [facility] TRANSFERRIN 196 163 - 344 mg/dL 11/27/2024 12:45 PM INTERNAL CONTROL CONSULTANT [facility] TIBC, CALCULATED 245(L) 261 - 462 mcg/dL 11/27/2024 12:45 PM INTERNAL CONTROL CONSULTANT [facility] % SATURATION * 37 15 - 62 % 11/27/2024 12:45 PM INTERNAL CONTROL CONSULTANT [facility] Blood Venipuncture / Unknown 11/27/2024 11:45 AM INTERNAL CONTROL CONSULTANT 11/27/2024 11:45 AM INTERNAL CONTROL CONSULTANT [facility] Starla Panchal MD CHEMISTRY ORDERABLES Fin al Result Performing Organization Address City/State/[place] Co de Phone Number [facility] [address] [place] [address] * (ABNORMAL) CBC WITH AUTO DIFFERENTIAL (11/27/2024 11:45 AM INTERNAL CONTROL CONSULTANT) [facility] WBC 7.89 4.00 - 12.00 10(3)/mcL 11/27/2024 12:19 PM [facility] RBC 5.65 4.40 - 5.80 10(6)/mcL 11/27/2024 12:19 PM [facility] HEMOGLOBIN (HGB) 17.1(H) 13.0 - 16.5 g/dL 11/27/2024 12:19 PM [facility] HEMATOCRIT (HCT) 52.8(H) 38.0 - 50.0 % 11/27/2024 12:19 PM [facility] MCV 93.5 82.0 - 96.0 fL 11/27/2024 12:19 PM [facility] MCH 30.3 26.0 - 32.0 pg 11/27/2024 12:19 PM [facility] MCHC 32.4 31.0 - 36.0 g/dL 11/27/2024 12:19 PM [facility] PLATELET COUNT 155 140 - 440 10(3)/mcL 11/27/2024 12:19 PM [facility] RDW 15.2 11.8 - 15.5 % 11/27/2024 12:19 PM [facility] MPV 12.1 8.0 - 12.6 fL 11/27/2024 12:19 PM [facility] NEUTROPHILS 71.5(H) 40.0 - 68.0 % 11/27/2024 12:19 PM [facility] LYMPHOCYTES 14.3(L) 19.0 - 49.0 % 11/27/2024 12:19 PM [facility] MONOCYTES 9.9 3.0 - 13.0 % 11/27/2024 12:19 PM [facility] EOSINOPHILS 3.2 0.0 - 8.0 % 11/27/2024 12:19 PM [facility] BASOPHILS 1.1(H) 0.0 - 1.0 % 11/27/2024 12:19 PM [facility] ABSOLUTE NEUTROPHILS 5.64(H) 1.40 - 5.30 10(3)/mcL 11/27/2024 12:19 PM [facility] ABSOLUTE LYMPHOCYTES 1.13 0.90 - 3.30 10(3)/mcL 11/27/2024 12:19 PM [facility] ABSOLUTE MONOCYTES 0.78 0.10 - 0.90 10(3)/mcL 11/27/2024 12:19 PM [facility] ABSOLUTE EOSINOPHIL 0.25 0.00 - 0.50 10(3)/mcL 11/27/2024 12:19 PM [facility] ABSOLUTE BASOPHILS 0.09 0.00 - 0.10 10(3)/mcL 11/27/2024 12:19 PM [facility] NRBC PER 100 WBC 0 11/27/19 12:19 PM INTERNAL CONTROL CONSULTANT [facility] Blood Venipuncture / Unknown 11/27/2024 11:45 AM INTERNAL CONTROL CONSULTANT 11/27/2024 11:45 AM INTERNAL CONTROL CONSULTANT Bryan Panchal MD HEMATOLOGY ORDERABLES Fi nal Result Performing Organization Address City/[facility]/ZIP Co de Phone Number [facility] [address] [place] [address] * VITAMIN B12 (11/27/2024 11:45 AM INTERNAL CONTROL CONSULTANT) VITAMIN B12 774 213 - 816 pg/mL 11/27/2024 1:10 PM INTERNAL CONTROL CONSULTANT [facility] Blood Venipuncture / Unknown 11/27/2024 11:45 AM INTERNAL CONTROL CONSULTANT 11/27/2024 11:45 AM INTERNAL CONTROL CONSULTANT Bryan Panchal MD CHEMISTRY ORDERABLES Fin al Result Performing Organization Address City/[facility]/[place] Co de Phone Number [facility] [address] [place] [address] * PSA DIAGNOSTIC,TOTAL (11/27/2024 11:45 AM INTERNAL CONTROL CONSULTANT) PSA, TOTAL (PROSTATIC SPECIFIC ANTIGEN) 1.07 <4.00 ng/mL 11/27/2024 1:10 PM INTERNAL CONTROL CONSULTANT [facility] Blood Venipuncture / Unknown 11/27/2024 11:45 AM INTERNAL CONTROL CONSULTANT 11/27/2024 11:45 AM INTERNAL CONTROL CONSULTANT Narrative [facility] - 11/27/2024 1:10 PM INTERNAL CONTROL CONSULTANT PSA NOTE: The PSA value should be used in conjunction with information available from clinical evaluation and other diagnostic procedures. The ALINITY Total PSA assay is a Chemiluminescent Microparticle Immunoassay (CMIA) for the quantitative determination of total PSA (both free PSA and PSA complexed to [id number]) in human serum. Total PSA values obtained with different assay methods, including Kaplan PSA assays, cannot be used interchangeably. Bryan Panchal MD CHEMISTRY ORDERABLES Fin al Result Performing Organization Address City/[facility]/ZIP Co de Phone Number [facility] [address] [place] [address] * (ABNORMAL) FERRITIN (11/27/2024 11:45 AM INTERNAL CONTROL CONSULTANT) FERRITIN 309(H) 22 - 274 ng/mL 11/27/2024 1:02 PM INTERNAL CONTROL CONSULTANT [facility] Blood Venipuncture / Unknown 11/27/2024 11:45 AM INTERNAL CONTROL CONSULTANT 11/27/2024 11:45 AM INTERNAL CONTROL CONSULTANT Bryan Panchal MD CHEMISTRY ORDERABLES Fin al Result Performing Organization Address [facility] de Phone Number [facility] [address] [place] [address] * (ABNORMAL) CMP (COMPREHENSIVE METABOLIC PANEL) (11/27/2024 11:45 AM INTERNAL CONTROL CONSULTANT) SODIUM 136 136 - 145 mmol/L 11/27/2024 12:45 PM [facility] POTASSIUM 5.0 3.5 - 5.1 mmol/L 11/27/2024 12:45 PM [facility] CHLORIDE 104 98 - 107 mmol/L 11/27/2024 12:45 PM [facility] CO2, VENOUS 24 22 - 30 mmol/L 11/27/2024 12:45 PM [facility] ANION GAP 13.0 <18.0 mmol/L 11/27/2024 12:45 PM [facility] GLUCOSE 205(H) 70 - 99 mg/dL 11/27/2024 12:45 PM [facility] BUN 44(H) 8 - 26 mg/dL 11/27/2024 12:45 PM [facility] CREATININE, BLOOD 1.41(H) 0.70 - 1.30 mg/dL 11/27/2024 12:45 PM [facility] BUN/CREATININE RATIO 31(H) 12 - 20 ratio 11/27/2024 12:45 PM [facility] TOTAL PROTEIN 9.4(H) 6.0 - 8.0 g/dL 11/27/2024 12:45 PM [facility] ALBUMIN 3.4(L) 3.5 - 5.0 g/dL 11/27/2024 12:45 PM [facility] A/G RATIO 0.6(L) 1.0 - 2.2 11/27/2024 12:45 PM [facility] CALCIUM 9.1 8.7 - 10.5 mg/dL 11/27/2024 12:45 PM [facility] T BILI 0.6 0.2 - 1.2 mg/dL 11/27/2024 12:45 PM [facility] SGOT (AST) 32 6 - 42 U/L 11/27/2024 12:45 PM [facility] SGPT (ALT) 20 6 - 55 U/L 11/27/2024 12:45 PM [facility] ALKALINE PHOSPHATASE 173(H) 40 - 150 U/L 11/27/2024 12:45 PM [facility] IS THE PATIENT REQUIRED TO BE FASTING? No 11/27/2024 12:45 PM [facility] GFR, ESTIMATED 55(L) >=60 11/27/2024 12:45 PM [facility] Comment: Creatinine Clearance is the preferred criteria for selecting drug dose adjustments in renally impaired patients. The GFR is provided as additional pertinent clinical information. GFR is reported in mL/min/1.73 sq m. Calculation based on the Chronic Kidney Disease Epidemiology Collaboration (CKD- EPI) equation refit without adjustment for race. GFR, EST. >60 >=60 025 12:45 PM [facility] GFR, EST. NONAFRICAN 50(L) >=60 11/27/2024 12:45 PM [facility] Blood Venipuncture / Unknown 11/27/2024 11:45 AM INTERNAL CONTROL CONSULTANT 11/27/2024 11:45 AM INTERNAL CONTROL CONSULTANT us Bryan Panchal MD CHEMISTRY ORDERABLES Fin al Result Performing Organization Address [facility]/[place] Co de Phone Number [facility] [address] [place] [address] * Culture, Urine (11/13/2024 1:05 PM INTERNAL CONTROL CONSULTANT) CULTURE RESULTS NAKASEOMYCES GLABRATUS 11/15/2024 11:57 PM INTERNAL CONTROL CONSULTANT [facility] Comment:SENSITIVITY NOT PERF ORMED Culture (ASPIRATEU) Non-Phlebotomy Collection / Unknown 11/13/2024 1:05 PM INTERNAL CONTROL CONSULTANT 11/13/2024 1:05 PM INTERNAL CONTROL CONSULTANT us Micah Romero MD MICROBIOLOGY - GENERAL ORDERABLE S Final Result Performing Organization Address [facility]/[place] Co de Phone Number [facility] [address] [place] [address], [place] * (ABNORMAL) POCT Glucose (11/13/2024 10:14 AM INTERNAL CONTROL CONSULTANT) GLUCOSE,BEDSID E POCT 136(H) 70 - 99 mg/dL 11/13/2024 10:20 AM INTERNAL CONTROL CONSULTANT [facility] Comment:Patient RN Performed Blood 11/13/2024 10:1 4 AM INTERNAL CONTROL CONSULTANT 11/13/2024 10:20 AM INTERNAL CONTROL CONSULTANT us None Provider POINT OF CARE TESTING Final Resu lt Performing Organization Address [facility]/[place] Co de Phone Number [facility] [address] [place] [address] * CT UROGRAPHY WO/W CONTRAST (10/31/2024 1:34 PM INTERNAL CONTROL CONSULTANT) Anatomical Region Laterality Modality , Abdomen N/A Computed Tomogra phy 11/07/2024 8:27 AM INTERNAL CONTROL CONSULTANT Impressions 11/07/2024 8:29 AM INTERNAL CONTROL CONSULTANT IMPRESSION: 1. Mild indeterminate urinary bladder wall thickening with mass effect on the posterior bladder wall from a prominent prostate. Partial opacification of the urinary bladder with excreted contrast limits evaluation. Recommend correlation with urinalysis, urine cytology and PSA. 2. Nonopacification of the proximal right ureter and mid to distal left ureter, likely due to peristalsis. This limits evaluation. 3. Indeterminate retroperitoneal and inguinal lymph nodes. Recommend short-term interval follow-up CT in 3 months. 4. Indeterminate left lower lobe masslike consolidation with associated small effusion. Primary differential considerations are round atelectasis, pneumonia and malignancy. Short-term follow-up chest CT with IV contrast is recommended for further evaluation. Narrative 11/07/2024 8:29 AM INTERNAL CONTROL CONSULTANT EXAM DESCRIPTION: CT UROGRAPHY WO/W CONTRAST REASON FOR STUDY: persistent dysuria during and after voiding, hesitancy, postvoid dribbling with milky urethral discharge x 4-5 months. Hx stroke,CHF,HTN,CKD,DM,parkinson,heart diease and former smoker. TECHNIQUE: Precontrast images of the abdomen. Abdomen and pelvis images with intravenous and without oral contrast using helical scanning technique with dynamic intravenous contrast injection. Corticomedullary, nephrographic, excretory phase images were acquired. Reconstructed coronal and sagittal MPR images reviewed. All images stored on PACS. Automated exposure control was used as a dose optimization technique for this examination. CONTRAST TYPE/DOSE: 100mL of IOPAMIDOL 76 % IV SOLN injected via Intravenous COMPARISON: None FINDINGS: URINARY TRACT: KIDNEYS: The kidneys are normal in size. Noncontrast images demonstrate no stone. There is symmetric bilateral renal enhancement. A 3 cm right renal cyst is seen. Subcentimeter hypoattenuating lesion within left kidney too small to further characterize but likely represents a cyst as well. URETERS AND BLADDER: No hydronephrosis is seen. Delayed images demonstrate contrast within the right collecting system and right ureter. There is nonopacification of the proximal to mid right ureter, likely due to peristalsis. A ureteral jet is seen. Contrast is seen within the left collecting system and left ureter. There is nonopacification of the mid and distal left ureter, likely due to peristalsis. On initial images the urinary bladder is partially distended. Indeterminate urinary bladder wall thickening is seen. Delayed images demonstrate partial opacification of the urinary bladder with contrast material which limits evaluation. Ureteral jets are documented. ABDOMEN/PELVIS: LOWER CHEST: Trace left effusion. Indeterminate masslike consolidation within the left lung base with calcification, likely representing chronic scarring. Short-term follow-up chest CT is recommended. LIVER: The liver is normal in size. Undulating surface appearance of the liver likely reflects chronic underlying liver disease. No suspicious liver lesion is seen. GALLBLADDER: Partially distended. Cholelithiasis. No CT evidence of acute cholecystitis BILE DUCTS: No gross biliary ductal dilatation. SPLEEN: The spleen is normal in size. PANCREAS: The pancreas is normal in size. No significant peripancreatic stranding or main ductal dilatation ADRENALS: Normal. GI: There is stool throughout the colon which appears nondilated. The appendix is nondilated. The stomach is partially distended. The small bowel is nondilated without evidence of small-bowel obstruction. PERITONEUM: No free air. No ascites is seen. No mesenteric lymphadenopathy. Small fat containing umbilical hernia. RETROPERITONEUM: There indeterminate retroperitoneal lymph nodes, nonenlarged by size criteria but increased in number. For reference is a 9 mm left para-lymph node (series 3, image 85). Prominent inguinal lymph nodes are also noted. For reference is a 12 mm left inguinal lymph node in short axis (177). REPRODUCTIVE: Prominent prostate. VASCULATURE: No abdominal aortic aneurysm. MUSCULOSKELETAL: Mild sclerosis within the bony pelvis is likely chronic degenerative. Recommend close attention on follow-up. Moderate lumbar degenerative disc disease. OTHER: No other abnormality. THIS IS AN ELECTRONICALLY VERIFIED FINAL REPORT 11/07/2024 8:27 AM - Electronically signed by Alexandro Ibrahim M.D. AG: AMANDA Report ID: [id number] Reading Location: [id number] Procedure Note Alexandro Ibrahim MD - 11/07/2024 EXAM DESCRIPTION: CT UROGRAPHY WO/W CONTRAST REASON FOR STUDY: persistent dysuria during and after voiding, hesitancy, postvoid dribbling with milky urethral discharge x 4-5 months. Hx stroke,CHF,HTN,CKD,DM,parkinson,heart diease and former smoker. TECHNIQUE: Precontrast images of the abdomen. Abdomen and pelvis images with intravenous and without oral contrast using helical scanning technique with dynamic intravenous contrast injection. Corticomedullary, nephrographic, excretory phase images were acquired. Reconstructed coronal and sagittal MPR images reviewed. All images stored on PACS. Automated exposure control was used as a dose optimization technique for this examination. CONTRAST TYPE/DOSE: 100mL of IOPAMIDOL 76 % IV SOLN injected via Intravenous COMPARISON: None FINDINGS: URINARY TRACT: KIDNEYS: The kidneys are normal in size. Noncontrast images demonstrate no stone. There is symmetric bilateral renal enhancement. A 3 cm right renal cyst is seen. Subcentimeter hypoattenuating lesion within left kidney too small to further characterize but likely represents a cyst as well. URETERS AND BLADDER: No hydronephrosis is seen. Delayed images demonstrate contrast within the right collecting system and right ureter. There is nonopacification of the proximal to mid right ureter, likely due to peristalsis. A ureteral jet is seen. Contrast is seen within the left collecting system and left ureter. There is nonopacification of the mid and distal left ureter, likely due to peristalsis. On initial images the urinary bladder is partially distended. Indeterminate urinary bladder wall thickening is seen. Delayed images demonstrate partial opacification of the urinary bladder with contrast material which limits evaluation. Ureteral jets are documented. ABDOMEN/PELVIS: LOWER CHEST: Trace left effusion. Indeterminate masslike consolidation within the left lung base with calcification, likely representing chronic scarring. Short-term follow-up chest CT is recommended. LIVER: The liver is normal in size. Undulating surface appearance of the liver likely reflects chronic underlying liver disease. No suspicious liver lesion is seen. GALLBLADDER: Partially distended. Cholelithiasis. No CT evidence of acute cholecystitis BILE DUCTS: No gross biliary ductal dilatation. SPLEEN: The spleen is normal in size. PANCREAS: The pancreas is normal in size. No significant peripancreatic stranding or main ductal dilatation ADRENALS: Normal. GI: There is stool throughout the colon which appears nondilated. The appendix is nondilated. The stomach is partially distended. The small bowel is nondilated without evidence of small-bowel obstruction. PERITONEUM: No free air. No ascites is seen. No mesenteric lymphadenopathy. Small fat containing umbilical hernia. RETROPERITONEUM: There indeterminate retroperitoneal lymph nodes, nonenlarged by size criteria but increased in number. For reference is a 9 mm left para-lymph node (series 3, image 85). Prominent inguinal lymph nodes are also noted. For reference is a 12 mm left inguinal lymph node in short axis (177). REPRODUCTIVE: Prominent prostate. VASCULATURE: No abdominal aortic aneurysm. MUSCULOSKELETAL: Mild sclerosis within the bony pelvis is likely chronic degenerative. Recommend close attention on follow-up. Moderate lumbar degenerative disc disease. OTHER: No other abnormality. THIS IS AN ELECTRONICALLY VERIFIED FINAL REPORT 11/07/2024 8:27 AM - Electronically signed by Alexandro Ibrahim M.D. AG: AMANDA Report ID: [id number] Reading Location: [place] [id number] IMPRESSION: 1. Mild indeterminate urinary bladder wall thickening with mass effect on the posterior bladder wall from a prominent prostate. Partial opacification of the urinary bladder with excreted contrast limits evaluation. Recommend correlation with urinalysis, urine cytology and PSA. 2. Nonopacification of the proximal right ureter and mid to distal left ureter, likely due to peristalsis. This limits evaluation. 3. Indeterminate retroperitoneal and inguinal lymph nodes. Recommend short-term interval follow-up CT in 3 months. 4. Indeterminate left lower lobe masslike consolidation with associated small effusion. Primary differential considerations are round atelectasis, pneumonia and malignancy. Short-term follow-up chest CT with IV contrast is recommended for further evaluation. us Micah Romero MD IMG CT ORDERABLES Final Result * (ABNORMAL) POCT Creatinine (10/31/2024 1:04 PM INTERNAL CONTROL CONSULTANT) CREATININE - POCT 1.5(H) 0.6 - 1.3 mg/dL 10/31/2024 1:05 PM INTERNAL CONTROL CONSULTANT [facility] Blood 10/31/2024 1:04 PM INTERNAL CONTROL CONSULTANT 10/31/2024 1:05 PM INTERNAL CONTROL CONSULTANT us None Provider POINT OF CARE TESTING Final Resu lt [facility] [address] [place] [address] from Last 3 Months Insurance MEDICARE C [facility] Advance Directives Documents on File Type Date Recorded Patient Facility Administrator Expl anation Power of Dry Cleaning Machine Operator for Health Care 08/12/2024 3:33 PM Authorization to Dis close Health Info/Life-sustaining treatment/POA/ Personal Facility Administrator Designation Care Teams Quality Control Operator Relationship Specialty Start Date End Date Caitlin Castillo MD [address] [place] [address] PCP - General Family Medicine 07/10/24 Micah Romero MD [address], [facility] [address] [place] [address] Consulting Physician Urology 07/10/24
--- OUTSIDE RECORDS SUMMARY | 2025-01-24 20:35 | XMS_ITS | Clinical Summary ---
Author Organization [facility] Address [address] [place] [address] Care Team Providers Care Sanitarian Inspector Name Role Phone Ike Rodríguez MD Primary Care Provider [phone] Source Comments [facility],non-owned Affiliates and Associated Physician Practices is amultiple site organization consisting of ambulatory clinics and hospital sitesin [place], [place], [place] and [place]. This disclosure is being madepursuant to the Care Everywhere program and may not contain all information available regarding this patient. Last updated 18.[employer] Allergies No known active allergies Medications * Be aware that medications may not be up to date on this document. Alwaysverify current medications with the patient. Medication Sig Dispensed Refills Start Date End Date Status atorvastatin (Lipitor) 40 MG tablet Take 1 (one) tablet by mouth at bedtime Active levothyroxine (Synthroid) 137 MCG tablet Take 1 (one) tablet by mouth daily before breakfast Active rOPINIRole (Requip) 1 MG tablet Take 1 (one) tablet by mouth at bedtime Active aspirin (Aspirin) 81 MG chew tablet Take 1 (one) tablet by mouth once daily Active tamsulosin (Flomax) 0.4 MG capsule Take 1 (one) capsule by mouth once daily At the same time every day after a meal. Active omeprazole (PriLOSEC) 20 MG capsule Take 1 (one) capsule by mouth daily before breakfast Active levETIRAcetam (Keppra) 750 MG tablet Take 1 (one) tablet by mouth 2 times daily Active insulin lispro (HumaLOG;ADMelog) 100 UNIT/ML pen Inject 3 (three) Units subcutaneously daily before breakfast Active insulin glargine (Lantus/Semglee) 100 units/ml injection Inject 45 (forty five) Units subcutaneously at bedtime Active lisinopril (Prinivil; Zestril) 2.5 MG tablet Take 1 (one) tablet by mouth once daily Active DULoxetine (Cymbalta) 60 MG capsule Take 1 (one) capsule by mouth once daily Active ferrous gluconate 324 (38 Fe) MG tablet Take 1 (one) tablet by mouth once daily Active latanoprost (Xalatan) 0.005 % ophthalmic solution 1 (one) drop at bedtime Active amLODIPine (Norvasc) 2.5 MG tablet Take 1 (one) tablet by mouth once daily Active pregabalin (Lyrica) 75 MG capsule Take 2 (two) capsules by mouth 3 times daily Activ e albuterol-ipratrop ium (Duo-Neb) 0.5-2.5 (3) MG/3ML nebulizer solution Inhale 3 mL by mouth 4 times daily as needed for Shortness of Breath or Wheezing Active primidone (Mysoline) 50 MG tablet Take 1 (one) tablet by mouth 3 times daily Active brimonidine (Alphagan) 0.2 % ophthalmic solution Instill 1 (one) drop into both eyes 2 times daily Active Active Problems Problem Noted Date Diagnosed Date Status epilepticus 02/04/2023 Immunizations Name Administration Dates Next Due [employer] BIVALENT 12Y+ 30mcg/0.3ML 2 [facility] primary Monovalent 12+ yr 0.3ml ,01/12/2022 TDAP, HISTORIC VACCINE 06/06/2021 Social History Tobacco Use Types Packs/Day Years Used Date Smoking Tobacco: Never Assessed AUDIT-C Answer Date Recorded Q1: How often do you have a drink containing alcohol? Never 02/05/2023 Q2: How many drinks containi ng alcohol do you have on a typical day when you are drinking? Patient does not drink Q3: How often do you have si x or more drinks on one occasion? Never 02/05/2023 Overall Financial Resource Strain (CARDIA) Answe r Date Recorded How hard is it for you to pa y for the very basics like food, housing, medical care, and heating? Not hard at all 02/05/2023 Hunger Vital Sign Answer Date Recorded Within the past 12 months, y ou worried that your food would run out before you got the money to buy more. Never true 02/06/20 23 Within the past 12 months, t he food you bought just didn't last and you didn't have money to get more. Never true 02/05/2023 PRAPARE - Transportation Answer Date Re corded In the past 12 months, has l ack of transportation kept you from medical appointments or from getting medications? No 01/2023 In the past 12 months, has l ack of transportation kept you from meetings, work, or from getting things needed for daily living? No 02/05/2023 Housing Stability Vital Sign Answer Rakesh e Recorded In the last 12 months, was t here a time when you were not able to pay the mortgage or rent on time? No 02/05/2023 In the last 12 months, how many places have you lived? 1 02/05/2023 In the last 12 months, was t here a time when you did not have a steady place to sleep or slept in a skilled nursing (including now)? No 02/05/2023 Sex and Gender Information Value Date Recorded Sex Assigned at Not on file Gender Identity Not on file Sexual Orientation Not on file Last Filed Vital Signs Vital Sign Reading Time Taken Comments Blood Pressure 145/84 04/03/2023 12:31 AM CDT Pulse 82 04/03/2023 12:31 AM CDT Temperature 36.7 C (98.1 F) 04/03/2023 12:31 AM CDT Respiratory Rate 18 04/03/2023 12:31 AM CDT Oxygen Saturation 93% 04/03/2023 12:31 AM CDT Inhaled Oxygen Concentration - - Weight 113.4 kg (250 lb) 04/03/2023 12:31 AM CDT Height 190.5 cm (6' 3 ) 04/03/2023 12:31 AM CDT Body Mass Index 31.25 04/03/2023 12:31 AM CDT Plan of Treatment Health Maintenance Due Date Last Done Comments COLOGUARD (AGES 45-75) - COLON CA SCREENING 1958 COLON MONITORING 1958 COLONOSCOPY - COLON CA SCREENING 1958 CT COLONOGRAPHY - COLON CA SCREENING 1958 Colorectal Cancer Screening 1958 FIT - COLON CA SCREENING 1958 FLEX SIG - COLON CA SCREENING 1958 MEDICARE AWV 12 MONTHS 1958 HEPATITIS C SCREENING 07/31/1976 PNEUMOCOCCAL VACCINE 50+ (1 of 1 - PCV) 2008 ZOSTER VACCINE (1 of 2) 2008 COVID-19 VACCINE (4 - season) 2024 10/19/2022, 02/16/2022, 01/12/2022 INFLUENZA VACCINE (#1) 2024 DEPRESSION SCREENING 11/05/2024 SCREENING FOR DIABETES 04/03/2026 3, 02/07/2023, 02/07/2023, Additional history exists DTAP/TDAP/TD VACCINES (2 - Td or Tdap) 06/06/2031 06/06/2021 Respiratory Syncytial Virus (RSV) Vaccine Pt: or over 60 yrs (1 - 1-dose 75+ series) 2033 HEPATITIS B VACCINE Aged Out No longe r eligible based on patient's age to complete this topic HIB VACCINE Aged Out No longer eligi ble based on patient's age to complete this topic HPV VACCINE Aged Out No longer eligi ble based on patient's age to complete this topic MENINGOCOCCAL (Group B) VACCINE SHARED DECISION-MAKING Aged Out No longer eligible based on patient's age to complete this topic MENINGOCOCCAL GROUPS A/C/Y/W VACCINE Aged Out No longer eligible based on patient's age to complete this topic Procedures Procedure Name Priority Date/Time Associated Diagnosis Comments BASIC METABOLIC PANEL (CALCIUM TOTAL) STAT 04/03/2023 1:05 AM CDT from Last 3 Months or Most Recently Relevant to Health Maintenance Results * (ABNORMAL) BASIC METABOLIC PANEL (CALCIUM TOTAL) (04/03/2023 1:05 AM CDT) BUN 21 7 - 26 mg/dL 04/03/2023 1:43 AM CDT [facility] Creatinine 1.14 0.71 - 1.16 mg/dL 04/03/2023 1:43 AM CDT [facility] Sodium 143 136 - 145 mmol/L 04/03/2023 1:43 AM CDT [facility] Potassium 3.8 3.5 - 4.5 mmol/L 04/03/2023 1:43 AM [facility] Chloride 112(H) 98 - 107 mmol/L 04/03/2023 1:43 AM [facility] CO2 22 22 - 29 mmol/L 04/03/2023 1:43 AM [facility] Glucose 117(H) 70 - 115 mg/dL 04/03/2023 1:43 AM [facility] Calcium 8.5 8.4 - 10.2 mg/dL 04/03/2023 1:43 AM [facility] Anion Gap 13 8 - 18 04/03/2023 1:43 AM [facility] BUN/Creatinine Ratio 18 7 - 23 04/03/2023 1:43 AM [facility] Osmolality Calculated 300 270 - 300 mOsm/kg 04/03/2023 1:43 AM [facility] eGFR by CKD-EPI 72(L) >=90 mL/min/1.7 3 m2 04/03/2023 1:43 AM [facility] Blood BLOOD SPECIMEN / Unknown Venipuncture / Unknown 04/03/2023 1:05 AM CDT 04/03/2023 1:15 AM T Candelario Francis MD LAB - CHEMISTRY ORD ERABLES [facility] [address] [place] [address], [facility] [phone] from Last 3 Months or Most Recently Relevant to Health Maintenance Care Teams Sanitarian Inspector Relationship Specialty Start Date End Date Ike Rodríguez MD [address] [place] [address] PCP - General 06/26/22
[2025-01-24] MEDS: LORazepam INJ (*CRX) 2 MG/ML VIAL 1 MG IV PUSH (20:41)
[2025-01-24 21:00] LABS: INR 1.3; Prothrombin Time 16.5 Seconds (11.1-14.7)
[2025-01-24 21:03] LABS: Alanine Aminotransferase 33 U/L (6-50); Alkaline Phosphatase 159 U/L (38-126); Anion Gap 11 mmol/L (4-12); Aspartate Amino Transferase 34 U/L (17-59); Bilirubin,Total 0.6 mg/dL (0.2-1.3); Blood Urea Nitrogen 34 mg/dL (9-20); Calcium 8.7 mg/dL (8.4-10.2); Carbon Dioxide 26 mmol/L (22-30); Chloride 103 mmol/L (98-107); Estimated CRCL calculation 66 ml/min; Estimated Glomerular Filt Rate > 60; Glucose 126 mg/dL (65-110); Lipase 1309 U/L (23-300); Magnesium 2.2 mg/dL (1.6-2.3); Potassium 4.5 mmol/L (3.4-5.0); Sodium 140 mmol/L (137-145)
[2025-01-24 21:05] LABS: Lactic Acid Reflex 1.5 mmol/L (0.7-2.0)
[2025-01-24 21:11] LABS: Basophils Percent Auto 0.5 % (0.2-1.2); Eosinophils Absolute Auto 0.2 K/mm3 (0-0.3); Eosinophils Percent Auto 1.9 % (0-4.4); Hematocrit 44.9 % (42.0-52.0); Hemoglobin 14.8 g/dL (14.0-18.0); Immature Granulocyte Absolute 0.12 K/mm3 (0.00-0.031); Immature Granulocyte Percent A 1.4 % (0-0.5); Immature Platelet Fraction Pct 4.1 % (0.9-11.2); Lymphocytes Absolute Auto 1.03 K/mm3 (0.9-3.2); Lymphocytes Percent Auto 12.4 % (18.3-44.2); Mean Corpuscular Hemoglobin 31.5 pg (26-34); Mean Corpuscular Volume 95.5 fl (80-100); Mean Platelet Volume 11.6 fl (7.4-10.4); Monocytes Absolute Auto 0.8 K/mm3 (0.1-0.6); Monocytes Percent Auto 9.5 % (2.6-8.5); Neutrophils Absolute Auto 6.1 K/mm3 (1.3-6.7); Neutrophils Percent Auto 74.3 % (45.5-73.1); Platelet Count Result 108 k/mm3 (150-375); Red Cell Distribution Width 16.9 % (11.5-14.5); White Blood Count 8.3 K/mm3 (4.5-10.0)
[2025-01-24 21:14] LABS: NT Pro B Type Natriuretic Pept 9100 pg/mL (19.9-100); Troponin I < 0.012 ng/mL (0.000-0.034)
[2025-01-24 21:22] LABS: Influenza A QL RT-PCR Negative (Negative); Influenza B QL RT-PCR Negative (Negative); RSV RNA, RT-PCR Negative (Negative); SARS-CoV-2 RNA PCR Negative (Negative)
[2025-01-24 21:34] LABS: Procalcitonin 0.1 ng/mL
--- NOTE | 2025-01-24 22:34 | ED.GENADULT ---
HPI - General Adult General Chief complaint: Seizure Stated complaint: seizure activity with postictal Time Seen by Provider: 01/24/25 20:10 History of Present Illness HPI narrative: Patient is a 64-year-old gentleman who presents emergency department with chief complaint of seizure. Patient has prior history of seizure disorder takes Keppra patient had several heart partial seizures today for and was sent to the emergency department. Related Data Home Medications ?Medication ?Instructions ?Recorded ?Confirmed ?Last Taken ?Type aspirin 81 mg tablet,delayed 81 mg PO DAILY 03/30/21 09/22/24 1 Day Ago History release ~01/07/23 atorvastatin 40 mg tablet 40 mg PO HS high cholesterol 03/30/21 09/22/24 1 Day Ago History ~01/07/23 biotin 5,000 mcg disintegrating 5,000 mcg PO DAILY supplement 03/30/21 09/22/24 1 Day Ago History tablet ~01/07/23 levothyroxine 137 mcg tablet 137 mcg PO QAM hypothyroidism 03/30/21 09/22/24 1 Day Ago History ~01/07/23 tamsulosin 0.4 mg capsule 0.8 mg PO HS benign prostatic 03/30/21 09/22/24 1 Day Ago History hyperplasia ~01/07/23 ascorbic acid (vitamin C) 500 mg 500 mg PO BID wound healing 01/18/22 09/22/24 1 Day Ago History capsule ~01/07/23 duloxetine 60 mg capsule,delayed 60 mg PO DAILY depression 01/18/22 09/22/24 1 Day Ago History release ~01/07/23 baclofen 5 mg tablet 10 mg PO TID 06/09/22 09/22/24 1 Day Ago History ~01/07/23 dulaglutide 0.75 mg/0.5 mL 0.75 mg subcut WEEKLY 06/09/22 09/22/24 01/24/23 History subcutaneous pen injector (Trulicity) empagliflozin 25 mg tablet 25 mg PO DAILY type 2 diabetes 06/09/22 09/22/24 1 Day Ago History (Jardiance) ~01/07/23 ferrous gluconate 324 mg (38 mg 324 mg PO DAILY supplementation 06/09/22 09/22/24 1 Day Ago History iron) tablet ~01/07/23 ipratropium 0.5 mg-albuterol 3 mg 3 ml inhalation Q6H PRN Shortness 06/09/22 09/22/24 1 Day Ago History (2.5 mg base)/3 mL nebulization Of Breath ~01/07/23 soln latanoprost 0.005 % eye drops 1 drp EACH EYE HS glaucoma 06/09/22 09/22/24 1 Day Ago History ~01/07/23 brimonidine 0.2 % eye drops 1 drp EACH EYE BID glaucoma 12/29/22 09/22/24 1 Day Ago History ~01/07/23 diclofenac sodium 1 % topical gel 1 ea topical BID 12/29/22 09/22/24 1 Day Ago History ~01/07/23 Nystatin Powder 1 applic topical Q12H PRN Rash 03/06/23 09/22/24 Unknown History acetaminophen 500 mg tablet 1,000 mg PO Q8H PRN Pain (Scale 03/06/23 09/22/24 Unknown History (Acetaminophen Extra Strength) Score 4-6) azelastine 137 mcg (0.1 %) nasal 1 spray intranasal Q12H allergic 03/06/23 09/22/24 Unknown History spray rhinitis magnesium oxide 400 mg (241.3 mg 400 mg PO DAILY hypomagnesemia 03/06/23 09/22/24 Unknown History magnesium) tablet peg [id number] 1 1 drp EACH EYE BID dry eyes 03/06/23 09/22/24 Unknown History %-0.2 %-0.2 % eye drops (Artificial Tears ([id number])) glucagon 1 mg injection kit 1 mg subcut PRN PRN Hypoglycemia 04/17/23 09/22/24 Unknown History insulin lispro 100 unit/mL 3 unit subcut AC 04/17/23 09/22/24 Unknown History subcutaneous pen (Humalog KwikPen (U-100) Insulin) omeprazole 20 mg capsule,delayed 20 mg PO DAILY 04/17/23 09/22/24 Unknown History release cetirizine 10 mg tablet 10 mg PO DAILY 06/14/23 09/22/24 Unknown History miconazole nitrate 2 % topical 1 applic topical HS 06/14/23 09/22/24 Unknown History cream bisacodyl 10 mg rectal suppository 10 mg RECTAL DAILY PRN Constipation 01/02/24 09/22/24 Unknown History insulin lispro 100 unit/mL 1 sliding scale dose subcut 01/02/24 09/22/24 Unknown History subcutaneous pen (Humalog KwikPen USEASDIRECTD (U-100) Insulin) magnesium hydroxide 400 mg/5 mL 30 ml PO HS PRN Constipation 01/02/24 09/22/24 Unknown History oral suspension (Milk of Magnesia) metoprolol succinate 25 mg 25 mg PO DAILY 01/02/24 09/22/24 Unknown History tablet,extended release 24 hr (Toprol XL) polyethylene glycol 3350 17 gram 17 g PO DAILY PRN Constipation 01/02/24 09/22/24 Unknown History oral powder packet potassium chloride 10 mEq 10 meq PO DAILY 02/11/24 09/22/24 Unknown History tablet,extended release primidone 50 mg tablet 50 mg PO TID 02/11/24 09/22/24 Unknown History loperamide 2 mg capsule 2 mg PO Q12H PRN Diarrhea 03/13/24 09/22/24 Unknown History carboxymethyl 0.5 %-glycerin 1 1 drp EACH EYE BID 08/17/24 09/22/24 Unknown History %-polysorb 80 0.5 %-PF eye dropperette (Refresh Optive Advanced (PF)) lidocaine 4 % topical patch 1 patch topical DAILY 08/17/24 09/22/24 Unknown History (Lidocaine Pain Relief) melatonin 5 mg tablet 5 mg PO HS 08/17/24 09/22/24 Unknown History multivitamin (Multiple Vitamins 1 tablet PO DAILY 08/17/24 09/22/24 Unknown History tablet) sodium phosphates 19 gram-7 118 ml RECTAL USEASDIRECTD PRN 08/17/24 09/22/24 Unknown History gram/118 mL enema (Fleet Enema) Constipation febuxostat 40 mg tablet (Uloric) 40 mg PO DAILY 09/22/24 09/22/24 Unknown History insulin glargine 100 unit/mL (3 12 unit subcut HS 09/22/24 09/22/24 Unknown History mL) subcutaneous pen (Lantus Solostar U-100 Insulin) liraglutide 0.6 mg/0.1 mL (18 mg/3 1.2 mg subcut DAILY 09/22/24 09/22/24 Unknown History mL) subcutaneous pen injector lorazepam 2 mg/mL injection 0.5 mg IM Q4H PRN Seizures 09/22/24 09/22/24 Unknown History solution magnesium citrate (Citroma oral 296 ml PO DAILY PRN Constipation 09/22/24 09/22/24 Unknown History solution) miconazole nitrate 2 % topical 1 applic topical BID 09/22/24 09/22/24 Unknown History cream (Micatin) phenazopyridine 100 mg tablet 100 mg PO TID 09/22/24 09/22/24 Unknown History pregabalin 75 mg capsule 75 mg PO BID 09/22/24 09/22/24 Unknown History Allergies Allergy/AdvReac Type Severity Reaction Status Date / Time No Known Allergies Allergy Unknown Verified 09/22/24 22:27 Review of Systems Review of Systems: A 10 system review of systems was completed on the patient and is negative except for what is stated in the HPI. Nursing and ancillary documentation was reviewed. [facility] Past Medical History Medical History Left spastic hemiplegia Ventricular tachycardia Cerebrovascular accident Pulmonary hypertension Severe pulmonary hypertension with RVSP of 81 non echo December 2023 Chronic kidney disease, stage 3 Seizure disorder With epileptiform discharges from the left anterior temporal region on EKG December 2022 consistent with history of focal seizures Glaucoma Depression Current use of residential anticoagulation Insulin dependent diabetes mellitus Myocardial infarction (01/2019) Late presentation ID found to have severe three-vessel disease, transferred to [facility] for emergent bypass with perioperative ventricular fibrillation arrest. Gout Hypothyroidism Chronic anemia (01/2019) Post CABG right parietal infarction resultant hemiplegia. Benign prostatic hyperplasia Hyperlipidemia Hypertension Ischemic cardiomyopathy EF was 20 to 25% and May 2023. Coronary artery disease Status post three-vessel bypass and left ventricular aneurysm repair in February 2019 at [facility]. Combined systolic and diastolic congestive heart failure EF 20-25% on echocardiogram December 2023 with grade 2 diastolic dysfunction, severe pulmonary hypertension with RVSP of 81, moderate aortic stenosis with peak velocity of to 4 mean gradient of 9 valve area 1.4 consistent with low-flow low gradient aortic stenosis RLS (restless legs syndrome) Surgical History Surgical History History of cardiac catheterization History of fusion of cervical spine History of coronary artery bypass graft (~02/2019) Three-vessel bypass and surgical repair of left ventricular aneurysm at [facility]. Family History Family History Mother Patient's mother is Hypertension Father Patient's father is Malignant neoplasm of prostate Social History Social History Social History: He reports that he has not been home since approximately 2019 due to difficulties with mobility he has had to stay in the [facility] since then. 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 Healthcare power of civil rights attorney: Blanquita Ann, . Code status: Full code. Smoking packs per day: 1.5 Smoking cigarettes per day: 30.0 Years smoked: 30 Smoking pack-years: 45.00 Smoking status: Former smoker Tobacco type: cigarettes Second hand tobacco smoke exposure: No Alcohol intake: never Substance use: never Substance use type: does not use Do You Feel Safe in your Home?: Yes Lack of Transportation: No Lack of Food: Never True Current Housing: I Have Housing Concerned About Future Housing: No Difficulty Paying Gas/Electric Bills: No Difficulty Paying for Meds: No Currently Unemployed: No Education: High School Diploma/GED Difficulty w/ Childcare or Family Care: No Living arrangements: [facility] Additional living arrangements comments: . He has resided at [facility] since 2019. 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 Spiritual care concerns: No Exam Narrative: GENERAL: Well-appearing, well-nourished, and in no acute distress. HEAD: Normocephalic, atraumatic. EYES: PERRLA and EOMI. ENT: Nares clear, no rhinorrhea or epistaxis. Mucous membranes moist. NECK: Supple. CHEST: Clear to auscultation. No respiratory distress. HEART: Regular rate and rhythm. No murmur heard. Normal peripheral pulses. ABDOMEN: Soft, nontender, nondistended, normal active bowel sounds. EXTREMITIES: Normal range of motion. No edema. SKIN: Warm, dry, no rash. NEURO: No focal deficits. Alert and oriented x3. PSYCH: Normal mood and affect. Course Vital Signs Vital signs: Vital Signs Temperature 36.3 C L 01/24/25 20:03 Pulse Rate 72 01/24/25 20:03 Respiratory Rate 19 01/24/25 20:03 Blood Pressure 132/78 01/24/25 20:03 Pulse Oximetry 97 01/24/25 20:03 Oxygen Delivery Room Air 01/24/25 20:03 Temperature 36.6 C 01/25/25 03:15 Pulse Rate 73 01/25/25 03:15 Respiratory Rate 16 01/25/25 03:15 Blood Pressure 119/73 01/25/25 03:15 Pulse Oximetry 93 01/25/25 03:15 Oxygen Delivery Room Air 01/24/25 20:48 Medical Decision Making MDM Narrative Medical decision making narrative: Differential diagnosis breakthrough seizure, electrolyte abnormality, dehydration, ACS CT head was negative Laboratory studies were obtained on the patient within normal limits foot the Vital Signs Vital Signs: Vital Signs Temperature 36.3 C L 01/24/25 20:03 Pulse Rate 72 01/24/25 20:03 Respiratory Rate 19 01/24/25 20:03 Blood Pressure 132/78 01/24/25 20:03 Pulse Oximetry 97 01/24/25 20:03 Oxygen Delivery Room Air 01/24/25 20:03 Temperature 36.6 C 01/25/25 03:15 Pulse Rate 73 01/25/25 03:15 Respiratory Rate 16 01/25/25 03:15 Blood Pressure 119/73 01/25/25 03:15 Pulse Oximetry 93 01/25/25 03:15 Oxygen Delivery Room Air 01/24/25 20:48 Lab Data 01/24/25 20:37 01/24/25 20:37 Labs: Lab Results 01/24/25 01/24/25 01/24/25 Range/Units 20:37 22:40 23:03 WBC 8.3 (4.5-10.0) K/mm3 RBC 4.70 (4.6-6.20) M/mm3 Hgb 14.8 (14.0-18.0) g/dL Hct 44.9 (42.0-52.0) % MCV 95.5 (80-100) fl MCH 31.5 (26-34) pg MCHC 33.0 (32-36) g/dl RDW 16.9 H (11.5-14.5) % Plt Count 108 L (150-375) k/mm3 MPV 11.6 H (7.4-10.4) fl Immature Gran % (Auto) 1.4 H (0-0.5) % Neut % (Auto) 74.3 H (45.5-73.1) % Lymph % (Auto) 12.4 L (18.3-44.2) % [place] % (Auto) 9.5 H (2.6-8.5) % Eos % (Auto) 1.9 (0-4.4) % Baso % (Auto) 0.5 (0.2-1.2) % Lymph # (Auto) 1.03 (0.9-3.2) K/mm3 [place] # (Auto) 0.8 H (0.1-0.6) K/mm3 Eos # (Auto) 0.2 (0-0.3) K/mm3 Baso # (Auto) 0.0 (0.0-0.1) K/mm3 Abs Immat Gran (auto) 0.12 H (0.00-0.031) K/mm3 Absolute Neuts (auto) 6.1 (1.3-6.7) K/mm3 Absolute Nucleated RBC 0.000 (0.0-0.012) K/mm3 Nucleated RBC % 0.0 (0.0-0.2) % % Immature Plt Fraction 4.1 (0.9-11.2) % PT 16.5 H (11.1-14.7) Seconds INR 1.3 APTT 38.0 H (22.3-36.8) Seconds Sodium 140 (137-145) mmol/L Potassium 4.5 (3.4-5.0) mmol/L Chloride 103 (98-107) mmol/L Carbon Dioxide 26 (22-30) mmol/L Anion Gap 11 (4-12) mmol/L BUN 34 H D (9-20) mg/dL Creatinine 1.17 (0.7-1.3) mg/dL Estim Creat Clear Calc 66 ml/min Estimated GFR > 60 (59 - ) Glucose 126 H (65-110) mg/dL Lactic Acid 1.5 (0.7-2.0) mmol/L Calcium 8.7 (8.4-10.2) mg/dL Magnesium 2.2 (1.6-2.3) mg/dL Total Bilirubin 0.6 (0.2-1.3) mg/dL AST 34 (17-59) U/L ALT 33 (6-50) U/L Alkaline Phosphatase 159 H (38-126) U/L Troponin I < 0.012 < 0.012 (0.000-0.034) ng/mL NT-Pro-B Natriuret Pep 9100 H (19.9-100) pg/mL Total Protein 8.0 (6.3-8.2) g/dL Albumin 4.0 (3.5-5.1) g/dL Lipase 1309 H (23-300) U/L Procalcitonin 0.1 ng/mL Urine Color Yellow (Yellow) Urine Appearance Cloudy H (Clear) Urine pH 5.5 (5.0-9.0) Ur Specific [place] 1.009 (1.001-1.035) Urine Protein 1+ H (Negative) mg/dL Urine Glucose (UA) 2+ H (Negative) mg/dL Urine Ketones Negative (Negative) mg/dL Ur Blood (Man) 1+ H (Negative) Urine Nitrate Negative (Negative) Urine Bilirubin Negative (Negative) Urine Urobilinogen 0.2 (<2.0) mg/dL Leukocyte Esterase Rfl 2+ H (Negative) BRENDA/UL Urine RBC 0-2 (0-2) /hpf Urine WBC >100 H (0-3) /hpf Ur Squamous Epith Cells None seen (Few) /hpf Urine Bacteria None seen /hpf Urine Casts 0-2 Influenza A (RT-PCR) Negative (Negative) Influenza B (RT-PCR) Negative (Negative) RSV (RT-PCR) Negative (Negative) SARS-CoV-2 RNA (RT-PCR) Negative (Negative) Discharge Plan Discharge Clinical Impression: Breakthrough seizure, Pneumonia Patient Disposition: [facility] Living Condition: Stable Instructions: Antibiotic Form, Epilepsy (ED), Pneumonia (ED) Patient Language: Latvian Prescriptions: New cefdinir 300 mg capsule 300 mg PO Q12H 10 Days Qty: 20 0RF doxycycline hyclate 100 mg tablet 100 mg PO BID Qty: 14 0RF cefdinir 300 mg capsule 300 mg PO Q12H 10 Days Qty: 20 0RF doxycycline hyclate 100 mg tablet 100 mg PO BID Qty: 14 0RF No Action cetirizine 10 mg tablet 10 mg PO DAILY miconazole nitrate 2 % cream 1 applic topical HS Rx Instructions: apply to penis atorvastatin 40 mg tablet 40 mg PO HS levothyroxine 137 mcg tablet 137 mcg PO QAM aspirin 81 mg Tablet,Delayed Release (Dr/Ec) 81 mg PO DAILY biotin 5,000 mcg Tablet,Disintegrating 5,000 mcg PO DAILY tamsulosin 0.4 mg capsule 0.8 mg PO HS glucagon 1 mg Kit 1 mg subcut PRN PRN (Reason: Hypoglycemia) omeprazole 20 mg Capsule,Delayed Release(Dr/Ec) 20 mg PO DAILY insulin lispro [Humalog KwikPen Insulin] 100 unit/mL Insulin Pen 3 unit SUBCUT AC furosemide 40 mg tablet 40 mg PO BID Qty: 60 0RF primidone 50 mg tablet 50 mg PO TID potassium chloride 10 mEq tablet extended release 10 meq PO DAILY loperamide 2 mg Capsule 2 mg PO Q12H PRN (Reason: Diarrhea) Rx Instructions: give 1 capsule by mouth every 12 hours as needed for diarrhea. Do not exceed 16mg in any 24 hour period. Notify Provider if symptoms persist after 24 hours duloxetine 60 mg capsule,delayed release(DR/EC) 60 mg PO DAILY ascorbic acid (vitamin C) 500 mg Capsule 500 mg PO BID Jardiance 25 mg tablet 25 mg PO DAILY Trulicity 0.75 mg/0.5 mL Pen Injector 0.75 mg SUBCUT WEEKLY Rx Instructions: Wednesdays baclofen 5 mg tablet 10 mg PO TID ferrous gluconate 324 mg (38 mg iron) Tablet 324 mg PO DAILY latanoprost 0.005 % drops 1 drp EACH EYE HS ipratropium-albuterol 0.5 mg-3 mg(2.5 mg base)/3 mL Solution For Nebulization 3 ml INHALATION Q6H PRN (Reason: Shortness Of Breath) brimonidine 0.2 % drops 1 drp EACH EYE BID diclofenac sodium 1 % gel 1 ea TOPICAL BID Rx Instructions: apply to BLE acetaminophen [Acetaminophen Extra Strength] 500 mg Tablet 1,000 mg PO Q8H MDD 3000mg PRN (Reason: Pain (Scale Score 4-6)) azelastine 137 mcg (0.1 %) Aerosol,[place] 1 spray INTRANASAL Q12H Rx Instructions: administer into each nostril Artificial Tears([id number]) 1-0.2-0.2 % Drops 1 drp EACH EYE BID Nystatin Powder 1 applic topical Q12H PRN (Reason: Rash) Rx Instructions: apply nystatin powder to groin topically as needed for fungal rash groin magnesium oxide 400 mg (241.3 mg magnesium) tablet 400 mg PO DAILY bisacodyl 10 mg Suppository 10 mg RECTAL DAILY PRN (Reason: Constipation) Rx Instructions: if no results from [facility] insulin lispro [Humalog KwikPen Insulin] 100 unit/mL Insulin Pen 1 sliding scale dose SUBCUT USEASDIRECTD Rx Instructions: sliding scale 151-200 3 201-250 6 251-300 9 301-350 12 351-400 15 If >400, call polyethylene glycol 3350 17 gram Powder In Packet 17 g PO DAILY PRN (Reason: Constipation) magnesium hydroxide [Milk of Magnesia] 400 mg/5 mL Suspension 30 ml PO HS PRN (Reason: Constipation) Rx Instructions: if no BM in 3 days metoprolol succinate [Toprol XL] 25 mg tablet extended release 24 hr 25 mg PO DAILY triamcinolone acetonide 0.1 % Cream 1 applic TOPICAL BID PRN (Reason: dermatitis) Qty: 15 0RF Rx Instructions: apply to face and neck redness topically two times a day for dermatitis multivitamin [Multiple Vitamins] Tablet 1 tablet PO DAILY lidocaine [Lidocaine Pain Relief] 4 % Adhesive Patch,Medicated 1 patch TOPICAL DAILY Rx Instructions: apply to left shoulder Fleet Enema 19-7 gram/118 mL Enema 118 ml RECTAL USEASDIRECTD PRN (Reason: Constipation) Rx Instructions: insert one application rectally as needed for constipation if no results 1 day after suppository melatonin 5 mg Tablet 5 mg PO HS Refresh Optive Advanced (PF) 0.5-1-0.5 % Dropperette 1 drp EACH EYE BID miconazole nitrate [Micatin] 2 % Cream 1 applic TOPICAL BID lorazepam 2 mg/mL Solution 0.5 mg IM Q4H PRN (Reason: Seizures) phenazopyridine 100 mg Tablet 100 mg PO TID Rx Instructions: end date 09/24/24 insulin glargine [Lantus Solostar U-100 Insulin] 100 unit/mL (3 mL) insulin pen 12 unit SUBCUT HS febuxostat [Uloric] 40 mg Tablet 40 mg PO DAILY liraglutide 0.6 mg/0.1 mL (18 mg/3 mL) Pen Injector 1.2 mg SUBCUT DAILY magnesium citrate [Citroma] Solution 296 ml PO DAILY PRN (Reason: Constipation) Rx Instructions: administer if no results after enema pregabalin 75 mg capsule 75 mg PO BID levetiracetam [Keppra] 500 mg Tablet 1,500 mg PO Q12HR Qty: 84 0RF tramadol 50 mg tablet 100 mg PO Q8H PRN (Reason: pain) Qty: 90 0RF Follow-up/Referrals: Rashid Thornton MD [Primary Care Provider] -
[2025-01-24 22:53] LABS: Add Urine Microscopic? YES; Appearance Urine Cloudy (Clear); Bacteria Urine None Seen /hpf; Bilirubin Urine Negative (Negative); Blood Urine 1+ (Negative); Color Urine Yellow (Yellow); Glucose Urine UA 2+ mg/dL (Negative); Ketones Urine Negative (Negative); Leukocyte Esterase Ur 2+ LEU/UL (Negative); Nitrate Urine Negative (Negative); Non Pathogenic Casts 0-2; Protein Urine 1+ mg/dL (Negative); RBC Urine 0-2 /hpf (0-2); Specific Grav Ur 1.009 (1.001-1.035); Squamous Epithelial Cell Urine None Seen /hpf (Few); Urobilinogen Urine 0.2 mg/dL (<2.0); WBC Urine >100 /hpf (0-3); pH Urine 5.5 (5.0-9.0)
--- NOTE | 2025-01-24 22:59 | ECG_ITS ---
Test Date: 2025-01-24 23:04:06 Measurements Intervals [place] Rate: 74 P: 60 OR: 193 QRS: -44 QRSD: 137 T: 102 QT: 453 QTc: 505 Interpretive Statements SINUS RHYTHM LEFT AXIS DEVIATION [QRS AXIS < -30] INTRAVENTRICULAR CONDUCTION DELAY [130+ ms QRS DURATION] LEFT VENTRICULAR HYPERTROPHY AND ST-T CHANGE [VOLTAGE CRITERIA PLUS ST/T ABNORMALITY] POOR R WAVE PROGRESSION Compared to ECG 01/24/2025 20:12:25 NO SIGNIFICANT CHANGES Electronically Signed On 01-25-2025 13:27:34 CDT by Maritza Edwards M.D.
[2025-01-24 23:33] LABS: Troponin I < 0.012 ng/mL (0.000-0.034)
[2025-01-25 01:10] VITALS: BP 114/69; PULSE 72; RESP 21; O2SAT 98
[2025-01-25 03:15] VITALS: BP 119/73; PULSE 73; RESP 16; TEMP 36.6; O2SAT 93
[2025-01-25] MEDS: CEFDINIR 300 MG CAPSULE PO (04:20)
[2025-01-25] MEDS: DOXYCYCLINE HYCLATE 100 MG TABLET PO (04:20)
[2025-01-25 05:03] VITALS: BP 124/74; PULSE 71; RESP 15; TEMP 36.4; O2SAT 92
--- NOTE | 2025-01-25 07:11 | PC.NURSE ---
patient cleaned up and depend changed
[2025-01-25 07:30] VITALS: BP 121/70; PULSE 72; RESP 16; O2SAT 94
== END 2025-01-25 08:47 ==
PROVIDERS: Emergency Provider Emergency Medicine; PCP Family Medicine
DX: G40.909 Epilepsy, unspecified, not intractable, without status epilepticus (principal); J18.9 Pneumonia, unspecified organism; Z20.822 Contact with and (suspected) exposure to COVID-19; E11.22 Type 2 diabetes mellitus with diabetic chronic kidney disease; I13.0 Hypertensive heart and chronic kidney disease with heart failure and stage 1 through stage 4 chronic kidney disease, or unspecified chronic kidney disease; N18.30 Chronic kidney disease, stage 3 unspecified; I50.40 Unspecified combined systolic (congestive) and diastolic (congestive) heart failure; I27.20 Pulmonary hypertension, unspecified; Z86.73 Personal history of transient ischemic attack (TIA), and cerebral infarction without residual deficits; I25.10 Atherosclerotic heart disease of native coronary artery without angina pectoris; I25.5 Ischemic cardiomyopathy; I25.2 Old myocardial infarction; E03.9 Hypothyroidism, unspecified; E11.39 Type 2 diabetes mellitus with other diabetic ophthalmic complication; H42 Glaucoma in diseases classified elsewhere; N40.0 Benign prostatic hyperplasia without lower urinary tract symptoms; M10.9 Gout, unspecified; G81.14 Spastic hemiplegia affecting left nondominant side; G25.81 Restless legs syndrome; Z98.1 Arthrodesis status; Z95.1 Presence of aortocoronary bypass graft; Z87.891 Personal history of nicotine dependence; Z79.82 Long term (current) use of aspirin; Z79.899 Other long term (current) drug therapy; Z79.4 Long term (current) use of insulin; Z79.84 Long term (current) use of oral hypoglycemic drugs; Z79.85 Long-term (current) use of injectable non-insulin antidiabetic drugs; I45.9 Conduction disorder, unspecified; I51.7 Cardiomegaly
CPT/HCPCS: 36415; 70450; 71045; 74177; 80053; 81001; 83605; 83690; 83735; 83880; 84145; 84484; 85025; 85055; 85610; 85730; 87086; 87637; 93005; 96361; 96365; 96375; 99284; A9270; J1953; J2060; J7030; Q9967

== ENCOUNTER 2025-02-05 08:24 | Outpatient (CLI) | payer MEDICARE, SELFPAY ==
--- NOTE | ~2025-02-05 | CT_ITS ---
Clinical Indication: History of artery bypass CT Scan of the Chest, Abdomen, and Pelvis with Contrast: Technique: Contiguous sections were acquired throughout the chest, abdomen, and pelvis after intraven ous administration of 100 cc of Omnipaque 350. Dose reduction technique was used on this scan by sabrina lemus automated exposure control and iterative reconstruction technique. The dose-length product (DL P) was 1786.02 mGy-cm. Comparison: 01/25/2025 Findings: There is no evidence of any significant mediastinal, hilar or axillary lymphadenopathy. Probable prio r CABG. No aortic aneurysm or dissection. No central pulmonary embolus seen. Extensive coronary arter y calcification present. No pericardial effusion. Pleural minimal chronic left pleural effusion. No right pleural effusion.. Stable left basilar consolidation. Right lung clear. Liver measures 20.6 cm in length. Spleen measures 15.3 cm in length. The liver, spleen, pancreas, adr enals and kidneys are otherwise within normal limits. Small gallstones noted. There are atherosclerot ic calcifications of the aorta. No lymphadenopathy. No bowel obstruction or bowel wall thickening. There is no evidence to suggest acute appendicitis. Probable wall thickening of the urinary bladder, especially posteriorly. No pelvic mass seen otherwis e. No ascites. Impression: Stable left basilar consolidation, which could reflect chronic atelectasis. Correlate for pneumonia. Neoplasm less likely based on morphology. Probable minimal chronic left pleural effusion. Splenomegaly. Cholelithiasis. Probable urinary bladder wall thickening, especially posteriorly. Correlate for cystitis. Reviewed, dictated and finalized at [facility]. Impression: Stable left basilar consolidation, which could reflect chronic atelectasis. Cor relate for pneumonia. Neoplasm less likely based on morphology. Probable minimal chronic left pleural effusion. Splenomegaly. Cholelithiasis. Probable urinary bladder wall thickening, especially posteriorly. Correlate for cystitis.
--- OUTSIDE RECORDS SUMMARY | 2025-02-05 08:33 | XMS_ITS | Clinical Summary ---
Author Organization [facility] Address [address] [place] [address] Care Team Providers Care Network Admin Name Role Phone Unavailable Primary Care Provider [...]
--- OUTSIDE RECORDS SUMMARY | 2025-02-05 08:33 | XMS_ITS | Clinical Summary ---
Author Organization [facility] Address [address] [place] [address] Phone Care Team Providers Care Um Specialist Name Role Phone Caitlin Castillo MD Primary Care Provider [phone] Micah Romero MD Unavailable Allergies Active Allergy [...] 1 % Gel Apply. 3 Active nystatin 038135 UNIT/GM Powder Apply 2 times daily. 3 [...] Active Azelastine HCl 137 MCG/SPRAY Solution 1 [place] by Nasal route every 12 hours as [...] naloxone HCl (Narcan) 4 MG/0.1ML Liquid 1 [place] by Nasal route as needed for Opioid [...] Department Care Team Description 11/27/2024 11:20 AM PULL TAB DEALER [facility] [address] [place] [address] Bryan Panchal MD Normocytic anemia; Bladder-neck obstruction Discharge Disposition: Discharged to home or Selfcare 11/27/2024 10:20 AM PULL TAB DEALER [facility] [address] [place] [address] Bryan Panchal MD History of coronary artery bypass graft (Primary Dx); Lymphadenopathy, retroperitoneal; History of cardioembolic stroke; Normocytic anemia; Bladder-neck obstruction Discharge Disposition: Discharged to home or Selfcare 11/27/2024 Travel 11/20/2024 Results Follow-Up [facility] [address] [place] [address] Micah Romero MD 11/13/2024 12:10 PM PULL TAB DEALER - 11/13/2024 1:10 PM PULL TAB DEALER [facility] [address] [facility] [place] [address] Micah Romero MD CYSTOSCOPY 11/13/2024 9:02 AM PULL TAB DEALER - 11/13/2024 2:57 PM PULL TAB DEALER [facility]Pac[facility] [address] [place] [address] Micah Romero MD Discharge Disposition: Discharged to home or Selfcare 11/13/2024 Travel from Last 3 Months Immunizations Immunization Administration Dates Next Due Covid-19, Mrna, Lnp-s, Pf, 30 Mcg/0.3 Ml Dose (P fizer) 02/16/2022,01/12/2022 Pneumococcal Vaccine - 13 Valent 03/22/2021 Pneumococcal conjugate PCV20 , polysaccharide [id number] conjugate, adjuvant, PF 11/02/2022 TDAP Vaccine 06/06/2021 [...] Comments Blood Pressure 116/80 11/27/2024 10:53 AM PULL TAB DEALER Pulse 72 11/27/2024 10:53 AM PULL TAB DEALER Temperature 36.6 C (97.8 F) 11/27/2024 10:53 AM PULL TAB DEALER Respiratory Rate 16 11/27/2024 10:53 AM PULL TAB DEALER Oxygen Saturation 98% 11/27/2024 10:53 AM PULL TAB DEALER Inhaled Oxygen Concentration - - Weight 106.6 kg (235 lb) 11/27/2024 10:53 AM PULL TAB DEALER Height 190.5 cm (6' 3 ) 11/27/2024 10:53 AM PULL TAB DEALER Body Mass Index 29.37 11/27/2024 10:53 AM PULL TAB DEALER Plan of Treatment Upcoming Encounters Date Type Department Care Team (Late st Contact Info) Description 02/19/2025 11:40 AM CDT Office Visit [facility] [address] [place] [address] Bryan Panchal MD [address] [place] [address] Discharge Disposition: Discharged to home or Selfcare Health Maintenance Due Date Last Done Comments Hepatitis C Virus (HCV) Screening 1960 Colonoscopy 2003 Colorectal Cancer Screening 2003 Cologuard 2008 Immunochemical Fecal Occult Blood 2008 Zoster Immunization (1 of 2) 2008 Respiratory Syncytial Virus (RSV) Immunization (Adult) (1 - Risk 60-74 years 1-dose series) 2018 AAA Screening Ultrasound 2023 SARS-COV-2 Immunization ( season) 2024 10/19/2022, 02/16/2022, 01/12/2022 Influenza Immunization (Seas on Ended) 2025 11/02/2022 Td Immunization Every 10 Yea rs (Adults [...] WITH AUTO DIFFERENTIAL Routine 11/27/2024 11:45 AM PULL TAB DEALER Normocytic anemia IRON,TRANSFERN,CALC .TIBC,%SAT Routine 11/27/2024 11:45 AM PULL TAB DEALER Normocytic anemia FERRITIN Routine 11/27/2024 11:45 AM PULL TAB DEALER Normocytic anemia VITAMIN B12 Routine 11/27/2024 11:45 AM PULL TAB DEALER Normocytic anemia PSA DIAGNOSTIC,TOTAL Routine 11/27/2024 11:45 AM PULL TAB DEALER Normocytic anemia Bladder-neck obstruction CMP (COMPREHENSIVE METABOLIC PANEL) Routine 11/27/2024 11:45 AM PULL TAB DEALER Normocytic anemia COMPLETE BLOOD COUNT (CBC) WITH DIFF Routine 11/27/2024 11:45 AM PULL TAB DEALER Normocytic anemia CULTURE, URINE STAT 11/13/2024 1:05 PM PULL TAB DEALER CYSTOSCOPY 11/13/2024 12:10 PM PULL TAB DEALER RECURRENT URINARY TRACT INFECTION, BENIGN PROSTATIC HYPERPLASIA WITH OBSTRUCTION Special Needs Allergy: Aspartame Hx: Diabetes, HTN, Stroke-L hemiplegia & Hemiparesis, uses sit to stand equipment. Resides at [facility] POCT GLUCOSE Routine 11/13/2024 10:14 AM PULL TAB DEALER from Last 3 Months Results * (ABNORMAL) IRON,TRANSFERN,CALC.TIBC,%SAT (11/27/2024 11:45 AM PULL TAB DEALER) IRON 91 31 - 144 mcg/dL 11/27/2024 12:45 PM PULL TAB DEALER [facility] TRANSFERRIN 196 163 - 344 mg/dL 11/27/2024 12:45 PM PULL TAB DEALER [facility] TIBC, CALCULATED 245(L) 261 - 462 mcg/dL 11/27/2024 12:45 PM PULL TAB DEALER [facility] % SATURATION * 37 15 - 62 % 11/27/2024 12:45 PM [facility] Blood Venipuncture / Unknown 11/27/2024 11:45 AM PULL TAB DEALER 11/27/2024 11:45 AM PULL TAB DEALER Bryan Panchal MD CHEMISTRY ORDERABLES Fin al Result [facility] [address] [place] [address] * (ABNORMAL) CBC WITH AUTO DIFFERENTIAL (11/27/2024 11:45 AM PULL TAB DEALER) WBC 7.89 4.00 - 12.00 10(3)/mcL 11/27/2024 12:19 PM [facility] RBC 5.65 4.40 - 5.80 10(6)/mcL 11/27/2024 12:19 PM [facility] HEMOGLOBIN (HGB) 17.1(H) 13.0 - 16.5 g/dL 11/27/2024 12:19 PM [facility] HEMATOCRIT (HCT) 52.8(H) 38.0 - 50.0 % 11/27/2024 12:19 PM [facility] MCV 93.5 82.0 - 96.0 fL 11/27/2024 12:19 PM [facility] MCH 30.3 26.0 - 32.0 pg 11/27/2024 12:19 PM [facility] MCHC 32.4 31.0 - 36.0 g/dL 11/27/2024 12:19 PM [facility] PLATELET COUNT 155 140 - 440 10(3)/mcL 11/27/2024 12:19 PM [facility] RDW 15.2 11.8 - 15.5 % 11/27/2024 12:19 PM [facility] MPV 12.1 8.0 - 12.6 fL 11/27/2024 12:19 PM [facility] NEUTROPHILS 71.5(H) 40.0 - 68.0 % 11/27/2024 12:19 PM PULL TAB DEALER [facility] LYMPHOCYTES 14.3(L) 19.0 - 49.0 % 11/27/2024 12:19 PM [facility] MONOCYTES 9.9 3.0 - 13.0 % 11/27/2024 12:19 PM [facility] EOSINOPHILS 3.2 0.0 - 8.0 % 11/27/2024 12:19 PM [facility] BASOPHILS 1.1(H) 0.0 - 1.0 % 11/27/2024 12:19 PM [facility] ABSOLUTE NEUTROPHILS 5.64(H) 1.40 - 5.30 10(3)/[facility] 11/27/2024 12:19 PM [facility] ABSOLUTE LYMPHOCYTES 1.13 0.90 - 3.30 10(3)/[facility] 11/27/2024 12:19 PM [facility] ABSOLUTE MONOCYTES 0.78 0.10 - 0.90 10(3)/[facility] 11/27/2024 12:19 PM [facility] ABSOLUTE EOSINOPHIL 0.25 0.00 - 0.50 10(3)/[facility] 11/27/2024 12:19 PM [facility] ABSOLUTE BASOPHILS 0.09 0.00 - 0.10 10(3)/[facility] 11/27/2024 12:19 PM [facility] NRBC PER 100 WBC 0 11/27/19 25 12:19 PM [facility] Blood Venipuncture / Unknown 11/27/2024 11:45 AM PULL TAB DEALER 11/27/2024 11:45 AM PULL TAB DEALER us Bryan Panchal MD HEMATOLOGY ORDERABLES Fi nal Result [facility] [address] [place] [address] * VITAMIN B12 (11/27/2024 11:45 AM PULL TAB DEALER) [facility] VITAMIN B12 346 275 - 316 pg/mL 11/27/2024 1:10 PM PULL TAB DEALER [facility] Blood Venipuncture / Unknown 11/27/2024 11:45 AM PULL TAB DEALER 11/27/2024 11:45 AM PULL TAB DEALER Bryan Panchal MD CHEMISTRY ORDERABLES Fin al Result Performing Organization Address City/[facility]/ZIP Co de Phone Number [facility] [address] [place] [address] * PSA DIAGNOSTIC,TOTAL (11/27/2024 11:45 AM PULL TAB DEALER) Pathologist [facility] PSA, TOTAL (PROSTATIC SPECIFIC ANTIGEN) 1.07 <4.00 ng/mL 11/27/2024 1:10 PM PULL TAB DEALER [facility] Blood Venipuncture / Unknown 11/27/2024 11:45 AM PULL TAB DEALER 11/27/2024 11:45 AM PULL TAB DEALER Narrative [facility] - 11/27/2024 1:10 PM PULL TAB DEALER PSA NOTE: The PSA value should be used in conjunction with information available from clinical evaluation and other diagnostic procedures. The ALINITY Total PSA assay is a Chemiluminescent Microparticle Immunoassay (CMIA) for the quantitative determination of total PSA (both free PSA and PSA complexed to [id number]) in human serum. Total PSA values obtained with different assay methods, including Kaplan PSA assays, cannot be used interchangeably. Bryan Panchal MD CHEMISTRY ORDERABLES Fin al Result Performing Organization Address City/[facility] Co de Phone Number [facility] [address] [place] [address] * (ABNORMAL) FERRITIN (11/27/2024 11:45 AM PULL TAB DEALER) Pathologist [facility] FERRITIN 309(H) 22 - 274 ng/mL 11/27/2024 1:02 PM PULL TAB DEALER [facility] Blood Venipuncture / Unknown 11/27/2024 11:45 AM PULL TAB DEALER 11/27/2024 11:45 AM PULL TAB DEALER us Bryan Panchal MD CHEMISTRY ORDERABLES Fin al Result [facility] [address] [place] [address] * (ABNORMAL) CMP (COMPREHENSIVE METABOLIC PANEL) (11/27/2024 11:45 AM PULL TAB DEALER) SODIUM 136 136 - 145 mmol/L 11/27/2024 12:45 PM PULL TAB DEALER [facility] POTASSIUM 5.0 3.5 - 5.1 mmol/L 11/27/2024 12:45 PM [facility] CHLORIDE 104 98 - 107 mmol/L 11/27/2024 12:45 PM [facility] CO2, VENOUS 24 22 - 30 mmol/L 11/27/2024 12:45 PM [facility] ANION GAP 13.0 <18.0 mmol/L 11/27/2024 12:45 PM PULL TAB DEALER [facility] GLUCOSE 205(H) 70 - 99 mg/dL 11/27/2024 12:45 PM [facility] BUN 44(H) 8 - 26 mg/dL 11/27/2024 12:45 PM [facility] CREATININE, BLOOD 1.41(H) 0.70 - 1.30 mg/dL 11/27/2024 12:45 PM [facility] BUN/CREATININE RATIO 31(H) 12 - 20 ratio 11/27/2024 12:45 PM [facility] TOTAL PROTEIN 9.4(H) 6.0 - 8.0 g/dL 11/27/2024 12:45 PM [facility] ALBUMIN 3.4(L) 3.5 - 5.0 g/dL 11/27/2024 12:45 PM [facility] A/G RATIO 0.6(L) 1.0 - 2.2 11/27/2024 12:45 PM PULL TAB DEALER [facility] CALCIUM 9.1 8.7 - 10.5 mg/dL 11/27/2024 12:45 PM PULL TAB DEALER [facility] T BILI 0.6 0.2 - 1.2 mg/dL 11/27/2024 12:45 PM PULL TAB DEALER [facility] SGOT (AST) 32 6 - 42 U/L 11/27/2024 12:45 PM PULL TAB DEALER [facility] SGPT (ALT) 20 6 - 55 U/L 11/27/2024 12:45 PM PULL TAB DEALER [facility] ALKALINE PHOSPHATASE 173(H) 40 - 150 U/L 11/27/2024 12:45 PM PULL TAB DEALER [facility] IS THE PATIENT REQUIRED TO BE FASTING? No 11/27/2024 12:45 PM PULL TAB DEALER [facility] GFR, ESTIMATED 55(L) >=60 11/27/2024 12:45 PM PULL TAB DEALER [facility] Comment: Creatinine Clearance is the preferred criteria for selecting drug dose adjustments in renally impaired patients. The GFR is provided as additional pertinent clinical information. GFR is reported in mL/min/1.73 sq m. Calculation based on the Chronic Kidney Disease Epidemiology Collaboration (CKD- EPI) equation refit without adjustment for race. GFR, EST. >60 >=60 025 12:45 PM PULL TAB DEALER [facility] GFR, EST. NONAFRICAN 50(L) >=60 11/27/2024 12:45 PM PULL TAB DEALER [facility] Blood Venipuncture / Unknown 11/27/2024 11:45 AM PULL TAB DEALER 11/27/2024 11:45 AM PULL TAB DEALER us Bryan Panchal MD CHEMISTRY ORDERABLES Fin al Result [facility] [address] [place] [address] * Culture, Urine (11/13/2024 1:05 PM PULL TAB DEALER) CULTURE RESULTS NAKASEOMYCES GLABRATUS 11/15/2024 11:57 PM PULL TAB DEALER [facility] Comment:SENSITIVITY NOT PERF ORMED Culture (ASPIRATEU) Non-Phlebotomy Collection / Unknown 11/13/2024 1:05 PM PULL TAB DEALER 11/13/2024 1:05 PM PULL TAB DEALER us Micah Romero MD MICROBIOLOGY - GENERAL ORDERABLE S Final Result Performing Organization Address City/[facility]/ZIP Co de Phone Number [facility] [address] [place] [address], * (ABNORMAL) POCT Glucose (11/13/2024 10:14 AM PULL TAB DEALER) GLUCOSE,BEDSID E POCT 136(H) 70 - 99 mg/dL 11/13/2024 10:20 AM PULL TAB DEALER [facility] Comment:Patient RN Performed Blood 11/13/2024 10:1 4 AM PULL TAB DEALER 11/13/2024 10:20 AM PULL TAB DEALER us None Provider POINT OF CARE TESTING Final Resu lt [facility] [address] [place] [id number] from Last 3 Months Insurance [facility] Directives Documents on File Type Date Recorded Patient Warehouse Hand Expl anation Power of Hammer Repairer for Health Care 08/12/2024 3:33 PM Authorization to Dis close Health Info/Life-sustaining treatment/POA/ Personal Warehouse Hand Designation Care Teams Um Specialist Relationship Specialty Start Date End Date Caitlin Castillo MD [address] [facility] [address] [place] [address] PCP - General Family Medicine 07/10/24 Micah Romero MD [address] [facility] [address] [place] [address] Consulting Physician Urology 07/10/24
--- OUTSIDE RECORDS SUMMARY | 2025-02-05 08:33 | XMS_ITS | Referral Summary ---
Author Organization [facility] [address] [facility] [address] Address [address] [place] [address] Care Team Providers Care No Bake Molder Name Role Phone Rashid Thornton MD Primary Care Provider [phone] Encounters Date Type Department Care Team Description 01/06/2025 10:30 AM PREMIUM NOTE INTEREST CALCULATOR CLERK Office Visit [facility] Cardiology [address] [facility] [address] [place] [address] Helga Taylor NP Coronary artery disease involving shungnak coronary artery of shungnak heart without angina pectoris (Primary Dx); Cardiomyopathy, ischemic; VT (ventricular tachycardia) (HCC); Postoperative atrial fibrillation (HCC); History of CVA (cerebrovascular accident) 12/27/2024 9:05 PM PREMIUM NOTE INTEREST CALCULATOR CLERK - 12/27/2024 11:59 PM PREMIUM NOTE INTEREST CALCULATOR [place] [address] Discharge Disposition: Discharge to home or self care from Last 3 Months Allergies Active Allergy Reactions Criticality Noted Date Comments Aspartame Other (See comments) Low 08/11/2024 HEADACHE Medications aspirin 81 mg enteric coated tabletIndications :acute myocardial infarction Take 1 tablet (81 mg total) by mouth daily 30 tablet 11 9 Active ipratropium-albut Raulito (DUO-NEB) 0.5-2.5 mg/3 mL nebulizer solution 1 Active Jardiance 25 mg tablet Take 1 tablet (25 mg total) by mouth daily 3 Active acetaminophen (TYLENOL) 500 mg tablet Take [...] mg total) by mouth nightly 30 tablet [address] (CYMBALTA) 60 mg capsule Take 1 capsule (60 mg total) by mouth daily 30 capsule 3 Active furosemide (LASIX) 40 mg tablet Take 1 tablet (40 mg total) by mouth 2 (two) times a day 60 tablet 3 Active levothyroxine (SYNTHROID) 137 mcg tablet Take 1 tablet (137 mcg total) by mouth machine icer before breakfast 30 tablet 3 Active pregabalin (LYRICA) 75 mg capsule Take 1 capsule (75 mg total) by mouth nightly 30 capsule 3 Active insulin glargine 100 unit/mL (3 mL) pen for injection Inject 10 Units under the skin nightly 3 mL 3 Active HumaLOG 100 unit/mL pen for injection 3 Active tamsulosin (FLOMAX) 0.4 mg extended release capsule 3 Active ascorbic acid 500 mg tablet,chewable Acti ve baclofen (LIORESAL) 5 mg tablet Take 1 tablet (5 mg total) by mouth 3 (three) times a day Active latanoprost (XALATAN) 0.005 % ophthalmic solution 1 drop nightly Activ e magnesium oxide 400 mg magnesium capsule Take by mouth Active metroNIDAZOLE 0.75 % lotionIndications :Acne Rosacea Apply topically 2 (two) times a [...] Active brimonidine (ALPHAGAN) 0.2 % ophthalmic solution 5 Active budesonide-formot Raulito (SYMBICORT) 160-4.5 mcg/actuation inhaler 5 Active LORazepam (ATIVAN) 2 mg/mL concentrated solution Take 0.5 mg by mouth every 4 (four) hours as needed Active magnesium citrate solution Take 296 mL by mouth 3 Active magnesium hydroxide (MILK OF MAGNESIA) suspension 400 mg/5 mL Take 30 mL by mouth daily as needed 3 Active melatonin tablet Take 5 mg by mouth nightly Active naloxone (NARCAN) 4 mg/actuation spray,non-aerosol Administer 1 spray into affected nostril(s) as needed Active potassium chloride ER 10 mEq CR capsule 5 Active spironolactone (ALDACTONE) 25 mg tablet Take 1 tablet (25 mg total) by mouth daily 5 Active traMADoL 100 mg tablet 5 Active Mounjaro 5 mg/0.5 mL pen injector injection Inject 0.5 mL (5 mg total) under the skin once a week Active albuterol HFA (PROVENTIL HFA,VENTOLIN HFA,PROAIR HFA) 90 mcg/actuation inhaler 5 Active multivitamin,tx-i fqj-Gp-DF-min 27-0.4 mg tablet Take 1 tablet by mouth daily Active loperamide (IMODIUM) 2 mg capsule Take 1 capsule (2 mg total) by mouth every 4 (four) hours as needed 4 Active lidocaine (ASPERCREME) 4 % adhesive patch,medicated Place 1 patch on the skin daily Active metoprolol XL (TOPROL-XL) 50 mg extended release tablet 5 Active levETIRAcetam (KEPPRA) 750 mg tablet Take 1 tablet (750 mg total) by mouth 2 (two) times a day 5 Active Active Problems Problem Noted Date Diagnosed Date CKD (chronic kidney disease) stage 3, GFR 30-59 ml/min 12/04/2023 HFrEF (heart failure with reduced ejection fract ion) 06/06/2023 Altered mental status, unspe cified altered mental status type 05/21/2023 Deep vein thrombosis (DVT) of both upper extremi ties 05/26/2021 Hx of CABG 05/22/2019 Coronary artery disease invo lving shungnak coronary artery of [place] heart without angina pectoris 04/21/2019 Cardiomyopathy, ischemic 04/21/2019 Postoperative atrial fibrillation 04/21/2019 Ischemic stroke 01/12/2019 Cardiogenic shock 01/12/2019 Hyperglycemia 01/12/2019 Bacteremia 01/12/2019 VT (ventricular tachycardia) 01/12/2019 VF (ventricular fibrillation) 01/12/2019 Coronary artery disease of n ative heart with stable angina pectoris 01/08/2019 Overview (01/09/2019): Added automatically from request for surgery [id number] Acute ST elevation myocardia l infarction (STEMI) [...] on file Legal Sex Male 12:35 PM PREMIUM NOTE INTEREST CALCULATOR CLERK Gender Identity Not on file Sexual Orientation Not on file Last Filed Vital Signs Vital Sign Reading Time Taken Comments Blood Pressure 102/58 01/06/2025 10:54 AM PREMIUM NOTE INTEREST CALCULATOR CLERK Pulse 70 01/06/2025 10:54 AM PREMIUM NOTE INTEREST CALCULATOR CLERK Temperature 36.4 C (97.5 F) 06/25/2023 12:49 PM CDT Respiratory Rate 18 06/25/2023 12:49 PM CDT Oxygen Saturation 98% 01/06/2025 10:54 AM PREMIUM NOTE INTEREST CALCULATOR CLERK Inhaled Oxygen Concentration - - Weight 101.2 kg (223 lb) 01/06/2025 10:54 AM PREMIUM NOTE INTEREST CALCULATOR CLERK Height 190.5 cm (6' 3 ) 01/06/2025 10:54 AM PREMIUM NOTE INTEREST CALCULATOR CLERK Body Mass Index 27.87 01/06/2025 10:54 AM PREMIUM NOTE INTEREST CALCULATOR CLERK Plan of Treatment Not on file Medical Devices Implanted Type Area Gmat Tutor Device Identifier Shelf Expiration Date Model / Serial / Lot [employer]reet Cardiovascular [employer] [id number] Hemashield 6x2in 2 Velour Knitted Impregnated Nonsealed Tapered - [id number] - [id number] Implanted:Qty: 1 on 01/10/2019 by Gui Monae MD at [facility] N/A: Heart [employer] [id number] 03/04/2021 [id number] / [id number] Procedures Procedure Name Priority Date/Time Associated Diagnosis Comments EGFR STAT 12/27/2024 3:46 PM PREMIUM NOTE INTEREST CALCULATOR CLERK COMPREHENSIVE METABOIC PANEL, SERUM STAT 12/27/2024 3:46 PM PREMIUM NOTE INTEREST CALCULATOR CLERK DIFFERENTIAL AUTO Routine 12/27/2024 3:4 6 PM PREMIUM NOTE INTEREST CALCULATOR CLERK CBC WITH AUTO DIFFERENTIAL Routine 12/27/2024 3:46 PM PREMIUM NOTE INTEREST CALCULATOR CLERK from Last 3 Months Results * eGFR (12/27/2024 3:46 PM PREMIUM NOTE INTEREST CALCULATOR CLERK) eGFR 65 >=60 mL/min/1. 73 m2 Comment: [...] last reviewed 2021. Blood 12/27/2024 3:46 PM PREMIUM NOTE INTEREST CALCULATOR CLERK 12/27/2024 9:12 PM PREMIUM NOTE INTEREST CALCULATOR CLERK us Kenia Hoffman NP LAB BLOOD ORDERABLES Jaylyn corey Result [facility] [id number] Department [place] [address] * (ABNORMAL) Differential, auto (12/27/2024 3:46 PM PREMIUM NOTE INTEREST CALCULATOR CLERK) Neutrophil abs 8.0(H) 1.5 - 6.5 K/cumm Imm gran abs 0.1 0.0 - 0.1 K/cumm [facility] Lymphocyte abs 1.1 0.8 - 3.3 K/cumm [facility] Monocyte abs 0.9(H) 0.2 - 0.8 K/cumm [facility] Eosinophil abs 0.1 0.0 - 0.5 K/cumm [facility] Basophil abs 0.1 0.0 - 0.1 K/cumm [facility] Neutrophil pct 77.7 % [facility] Comment: Interpretive Data Percent cell count reference ranges are not reported, since discordance with absolute values may lead to misinterpretation of CBC data. Current Interpretive Data was last revised on 2018. Imm gran pct 1.3 % [facility] Comment: Interpretive Data Percent cell count reference ranges are not reported, since discordance with absolute values may lead to misinterpretation of CBC data. Current Interpretive Data was last revised on 2018. Lymphocyte pct 10.8 % [facility] Comment: Interpretive Data Percent [...] revised on 2018. Blood 12/27/2024 3:46 PM PREMIUM NOTE INTEREST CALCULATOR CLERK 12/27/2024 9:07 PM PREMIUM NOTE INTEREST CALCULATOR CLERK Kenia Hoffman NP LAB BLOOD ORDERABLES Jaylyn corey Result [facility] [id number] Department [place] [address] * (ABNORMAL) Comprehensive metabolic panel, serum (12/27/2024 3:46 PM PREMIUM NOTE INTEREST CALCULATOR CLERK) Sodium 140 135 - 145 mmol/L Potassium, sr 4.6 3.6 - 5.2 mmol/L [facility] Chloride 102 97 - 110 mmol/L [facility] CO2 21(L) 22 - 32 mmol/L [facility] Anion gap 17(H) 2 - 15 mmol/L [facility] BUN 55(H) 6 - 25 mg/dL [facility] Creatinine 1.22 0.80 - 1.30 mg/dL [facility] [...] Units/L [facility] Blood 12/27/2024 3:46 PM PREMIUM NOTE INTEREST CALCULATOR CLERK 12/27/2024 9:10 PM PREMIUM NOTE INTEREST CALCULATOR CLERK Kenia Hoffman NP LAB BLOOD ORDERABLES Jaylyn l Result [facility] [id number] Department [place] [address] * (ABNORMAL) CBC with auto differential (12/27/2024 3:46 PM PREMIUM NOTE INTEREST CALCULATOR CLERK) WBC 10.3(H) 3.8 - 9.9 K/cumm Hgb 15.6 13.0 - 17.5 g/dL [facility] Hct 49.6 38.9 - 50.3 % [facility] Plt 167 150 - 400 K/cumm [facility] MPV 11.3 9.1 - 12.3 fL [facility] RBC 5.14 4.30 - 5.80 M/cumm [facility] MCV 96.5(H) 81.3 - 96.4 fL [facility] MCH 30.4 27.1 - 33.3 pg [facility] MCHC 31.5(L) 32.3 - 35.7 g/dL [facility] RDW CV 17.0(H) 11.1 - 14.9 % [facility] RDW SD 56.9(H) 35.7 - 48.1 fL [facility] NRBC abs 0.00 0.00 - 0.01 K/cumm [facility] Blood 12/27/2024 3:46 PM PREMIUM NOTE INTEREST CALCULATOR CLERK 12/27/2024 9:07 PM PREMIUM NOTE INTEREST CALCULATOR CLERK us Kenia Hoffman NP LAB BLOOD ORDERABLES Jaylyn corey Result [facility] [id number] Department [place] [address] from Last 3 Months Insurance IDPA [facility] MEDICARE ADVANTAGE [employer]PA [employer] MEDICARE [facility] MEDICARE ADVANTAGE Advance Directives For more information, please contact: [phone] Documents on File Type Date Recorded Patient Orthopedic Technician Expl anation ADVANCE DIRECTIVE 02/10/2020 ADVANCE DIRECTIVE 01/15/2020 * Full Code (Latest Code Status on File) Date Activated Date Inactivated Comments 05/22/2023 12:09 PM 05/25/2023 10:31 PM * Full Code Date Activated Date Inactivated Comments 01/08/2019 4:00 PM 01/22/2019 7:08 PM Care Teams No Bake Molder Relationship Specialty Start Date End Date Rashid Thornton MD [address] [address] PCP - General Family Medicine 06/05/24
--- OUTSIDE RECORDS SUMMARY | 2025-02-05 08:33 | XMS_ITS | Continuity of Care Document ---
Author Organization [facility] Address [address] [place] [address] Phone Care Team Providers Care Parole Board Member Name Role Phone Lucas Boyd MD Unavailable Unavailable Advance Directives Directive Yes / No Effective Date File Name No Information Encounters Encounter Description Practice Location Reason(s) For Visit Diagnoses Date Provider Providers Copied on Encounter [facility], [address], [place], [place], [id number], [place] tel:[phone] SEC Suraj MEEHAN Professional No Information [address] [facility] [address], [place], [place], [id number], [place]. tel:[phone] Referring Provider: Ike Rodriguez OD, [address], [address]. tel:[phone] Family History Family Member Type Diagnosis Age At Onset No Information Payers Payer name Insurance type Covered constitution party ID Authoriza tion(s) Medicaid [facility] [id number] Social History Type Description Quantity Date Captured [...]
--- OUTSIDE RECORDS SUMMARY | 2025-02-05 08:33 | XMS_ITS | Clinical Summary ---
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 30 tablet 3 Active pregabalin [...] HFA) 90 mcg/actuation inhaler 5 Active multivitamin,tx-i xdz-Zf-VD-min 27-0.4 mg tablet Take 1 tablet by [...] CABG 05/22/2019 Coronary artery disease invo lving kashia coronary artery of kashia heart without angina pectoris 04/21/2019 Cardiomyopathy, ischemic 04/21/2019 Postoperative atrial fibrillation 04/21/2019 Ischemic stroke 01/12/2019 Cardiogenic shock 01/12/2019 Hyperglycemia 01/12/2019 Bacteremia 01/12/2019 VT (ventricular tachycardia) 01/12/2019 VF (ventricular fibrillation) 01/12/2019 Coronary artery disease of n ative heart with stable angina pectoris 01/08/2019 Overview (01/09/2019): Added automatically from request for surgery [id number] Acute ST elevation myocardia l infarction (STEMI) due to occlusion of left coronary artery Resolved Problems Problem Noted Date Diagnosed Date Resolved Date ERAN (acute kidney injury) 01/12/2019 Encounters Date Type Department Care Team Description 01/06/2025 10:30 AM SYSTEMS ARCHITECTURE ANALYST Office Visit [facility] Cardiology [address] [place] [address] Helga Taylor NP Coronary artery disease involving kashia coronary artery of kashia heart without angina pectoris (Primary Dx); Cardiomyopathy, ischemic; VT (ventricular tachycardia) (HCC); Postoperative atrial fibrillation (HCC); History of CVA (cerebrovascular accident) 12/27/2024 9:05 PM SYSTEMS ARCHITECTURE ANALYST - 12/27/2024 11:59 PM SYSTEMS ARCHITECTURE ANALYST [place] [address] Discharge Disposition: Discharge to home or self [...] on file Legal Sex Male 12:35 PM SYSTEMS ARCHITECTURE ANALYST Gender Identity Not on file Sexual Orientation Not on file Obstetrics History Last Filed Vital Signs Vital Sign Reading Time Taken Comments Blood Pressure 102/58 01/06/2025 10:54 AM SYSTEMS ARCHITECTURE ANALYST Pulse 70 01/06/2025 10:54 AM SYSTEMS ARCHITECTURE ANALYST Temperature 36.4 C (97.5 F) 06/25/2023 12:49 PM CDT Respiratory Rate 18 06/25/2023 12:49 PM CDT Oxygen Saturation 98% 01/06/2025 10:54 AM SYSTEMS ARCHITECTURE ANALYST Inhaled Oxygen Concentration - - Weight 101.2 kg (223 lb) 01/06/2025 10:54 AM SYSTEMS ARCHITECTURE ANALYST Height 190.5 cm (6' 3 ) 01/06/2025 10:54 AM SYSTEMS ARCHITECTURE ANALYST Body Mass Index 27.87 01/06/2025 10:54 AM SYSTEMS ARCHITECTURE ANALYST Plan of Treatment Health Maintenance Due Date Last Done Comments Colon Cancer Screening-Colonoscopy 1960 Hepatitis C Screening 1960 Prostate Cancer Screening-PSA 1958 Hepatitis B Screening 1976 Lung Cancer Screening 2008 Zoster Vaccine (1 of 2) 2008 Depression Screening 01/09/2020 01/08/2019 Well Visit 65+ 2023 Fall Risk Assessment 05/25/2024 05/25/2023 Covid-19 Vaccine ( season) 2024 10/19/2022, 02/16/2022, 01/12/2022 Influenza Vaccine (Season Ended) 2025 11/02/20 DTaP/Tdap/Td Vaccine (2 - Td or Tdap) 06/06/203112/2020 Pneumococcal vaccine 65+ Completed 11/02/2022, 03/05 Abdominal Aortic Aneurysm (A AA) Screen Completed 10/31/2024 Medical Devices Implanted Type Area Esthetician Makeup Artist Device Identifier Shelf Expiration Date Model / Serial / Lot [employer] [id number] Hemashield 6x2in 2 Velour Knitted Impregnated Nonsealed Tapered - [id number] - [id number] Implanted:Qty: 1 on 01/10/2019 by Gui Monae MD at [facility] N/A: Heart [employer] [id number] 03/04/2021 [id number] / [id number] Procedures Procedure Name Priority Date/Time Associated Diagnosis Comments EGFR STAT 12/27/2024 3:46 PM SYSTEMS ARCHITECTURE ANALYST COMPREHENSIVE METABOIC PANEL, SERUM STAT 12/27/2024 3:46 PM SYSTEMS ARCHITECTURE ANALYST DIFFERENTIAL AUTO Routine 12/27/2024 3:4 6 PM SYSTEMS ARCHITECTURE ANALYST CBC WITH AUTO DIFFERENTIAL Routine 12/27/2024 3:46 PM SYSTEMS ARCHITECTURE ANALYST from Last 3 Months Results * eGFR (12/27/2024 3:46 PM SYSTEMS ARCHITECTURE ANALYST) eGFR 65 >=60 mL/min/1. 73 m2 Comment: [...] last reviewed 2021. Blood 12/27/2024 3:46 PM SYSTEMS ARCHITECTURE ANALYST 12/27/2024 9:12 PM SYSTEMS ARCHITECTURE ANALYST us Kenia Hoffman NP LAB BLOOD ORDERABLES Jaylyn corey Result [facility] [id number] Department [place] [address] * (ABNORMAL) Differential, auto (12/27/2024 3:46 PM SYSTEMS ARCHITECTURE ANALYST) Neutrophil abs 8.0(H) 1.5 - 6.5 K/cumm Imm gran abs 0.1 0.0 - 0.1 K/cumm [facility] Lymphocyte abs 1.1 0.8 - 3.3 K/cumm [facility] Monocyte abs 0.9(H) 0.2 - 0.8 K/cumm [facility] Eosinophil abs 0.1 0.0 - 0.5 K/cumm [facility] Basophil abs 0.1 0.0 - 0.1 K/cumm [facility] Neutrophil pct 77.7 % [facility] Comment: Interpretive Data Percent cell count reference ranges are not reported, since discordance with absolute values may lead to misinterpretation of CBC data. Current Interpretive Data was last revised on 2018. Imm gran pct 1.3 % [facility] Comment: Interpretive Data Percent cell count reference ranges are not reported, since discordance with absolute values may lead to misinterpretation of CBC data. Current Interpretive Data was last revised on 2018. Lymphocyte pct 10.8 % [facility] Comment: Interpretive Data Percent cell count reference ranges are not reported, since discordance with absolute values may lead to misinterpretation of CBC data. Current Interpretive Data was last revised on 2018. Monocyte pct 9.1 % [facility] Comment: Interpretive Data Percent cell count reference ranges are not reported, since discordance with absolute values may lead to misinterpretation of CBC data. Current Interpretive Data was last revised on 2018. Eosinophil pct 0.6 % [facility] Comment: Interpretive Data Percent cell count [...] revised on 2018. Blood 12/27/2024 3:46 PM SYSTEMS ARCHITECTURE ANALYST 12/27/2024 9:07 PM SYSTEMS ARCHITECTURE ANALYST Kenia Hoffman NP LAB BLOOD ORDERABLES Jaylyn l [facility] [address] Department [place] [address] * (ABNORMAL) Comprehensive metabolic panel, serum (12/27/2024 3:46 PM SYSTEMS ARCHITECTURE ANALYST) Sodium 140 135 - 145 mmol/L Potassium, [...] Units/L [facility] Blood 12/27/2024 3:46 PM SYSTEMS ARCHITECTURE ANALYST 12/27/2024 9:10 PM SYSTEMS ARCHITECTURE ANALYST Kenia Hoffman TECHNOLOGY ADMINISTRATOR LAB BLOOD ORDERABLES Jaylyn l Result Performing Organization Address City/[facility]/ZIP Co de Phone Number [facility] [id number] [place] [address] * (ABNORMAL) CBC with auto differential (12/27/2024 3:46 PM SYSTEMS ARCHITECTURE ANALYST) WBC 10.3(H) 3.8 - 9.9 K/cumm Hgb [...] K/cumm [facility] Blood 12/27/2024 3:46 PM SYSTEMS ARCHITECTURE ANALYST 12/27/2024 9:07 PM SYSTEMS ARCHITECTURE ANALYST Kenia Hoffman TECHNOLOGY ADMINISTRATOR LAB BLOOD ORDERABLES Jaylyn l Result [facility] [id number] [place] [address] from Last 3 Months Insurance [facility] MEDICARE ADVANTAGE [facility] MEDIC[facility] Address: [address] [address] [place] [address] [employer] MEDICARE UHC MEDICARE ADVANTAGE Advance Directives For more information, please contact: [phone] Documents on File Type Date Recorded 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
--- OUTSIDE RECORDS SUMMARY | 2025-02-05 08:33 | XMS_ITS | Clinical Summary ---
Author Organization [facility] Address [address] [place] [address] Care Team Providers Care Egg Caser Name Role Phone Ike Rodríguez MD Primary Care Provider [phone] Source Comments [facility],non-owned Affiliates and Associated Physician Practices is amultiple site organization consisting of ambulatory clinics and hospital sitesin [place], [place], [place] and [place]. This disclosure is being madepursuant to the Care Everywhere program and may not contain all information available regarding this patient. Last updated 18.[employer] Allergies No known active allergies Medications * [...] 02/04/2023 Immunizations Name Administration Dates Next Due The Grounds Keeper BIVALENT 12Y+ 30mcg/0.3ML 2 [employer] primary Monovalent 12+ yr 0.3ml ,01/12/2022 TDAP, [...] place to sleep or slept in a custodial (including now)? No 02/05/2023 Sex and Gender [...] - 26 mg/dL 04/03/2023 1:43 AM CDT [facility] Creatinine 1.14 0.71 - 1.16 mg/dL 04/03/2023 1:43 AM CDT [facility] Sodium 143 136 - 145 mmol/L 04/03/2023 1:43 AM CDT [facility] Potassium 3.8 3.5 - 4.5 mmol/L 04/03/2023 1:43 AM [facility] Chloride 112(H) 98 - 107 mmol/L 04/03/2023 1:43 AM [facility] CO2 22 22 - 29 mmol/L 04/03/2023 1:43 AM [facility] Glucose 117(H) 70 - 115 mg/dL 04/03/2023 1:43 AM [facility] Calcium 8.5 8.4 - 10.2 mg/dL 04/03/2023 1:43 AM [facility] Anion Gap 13 8 - 18 04/03/2023 1:43 AM [facility] BUN/Creatinine Ratio 18 7 - 23 04/03/2023 1:43 AM [facility] Osmolality Calculated 300 270 - 300 mOsm/kg 04/03/2023 1:43 AM [facility] eGFR by CKD-EPI 72(L) >=90 mL/min/1.7 3 m2 04/03/2023 1:43 AM [facility] Blood BLOOD SPECIMEN / Unknown Venipuncture / Unknown 04/03/2023 1:05 AM CDT 04/03/2023 1:15 AM T Candelario Francis MD LAB - CHEMISTRY ORD ERABLES [facility] [address] [place] [address], [facility] [phone] from Last 3 Months or Most Recently Relevant to Health Maintenance Care Teams Egg Caser Relationship Specialty Start Date End Date Ike Rodríguez MD [address] [place] [address] PCP - General 06/26/22
== END 2025-02-05 08:25 | disposition home or self-care (01) ==
PROVIDERS: PCP Internal Medicine; Visit Provider Internal Medicine
DX: R59.0 Localized enlarged lymph nodes (principal); Z86.73 Personal history of transient ischemic attack (TIA), and cerebral infarction without residual deficits; Z95.1 Presence of aortocoronary bypass graft; R16.1 Splenomegaly, not elsewhere classified; K80.20 Calculus of gallbladder without cholecystitis without obstruction
CPT/HCPCS: 71260; 74177; Q9967

== ENCOUNTER 2025-05-27 14:32 | Inpatient (IN) | payer MEDICARE, MEDICAID, SELFPAY ==
--- NOTE | ~2025-05-27 | XR_ITS ---
CHEST RADIOGRAPH CLINICAL HISTORY: RECURRENT SEIZURE . COMPARISON: 01/24/2025 TECHNIQUE: Single portable view of the chest. FINDINGS Sternal wires and mediastinal clips are identified, the wires are midline and intact. The remainder of the cardiomediastinal silhouette is otherwise unremarkable. Blunting of the left costophrenic sulcus suggesting a left-sided pleural effusion. The remainder of the lungs are clear. IMPRESSION: Left-sided pleural effusion suspected without focal infiltrate. Reviewed, dictated and finalized at location A.
--- NOTE | 2025-05-27 14:38 | ED_ITS ---
HPI - General Adult General Chief complaint: Seizure Stated complaint: Seizure Time Seen by Provider: 05/27/25 14:36 Source: patient and EMS Mode of arrival: EMS History of Present Illness HPI narrative: 64 YEARS OLD WHITE MALE CAME FROM [place]AIL BY AMBULANCE WITH SEIZURE-LIKE ACTIVITY. PATIENT CURRENTLY ON 1500 MG OF KEPPRA B.I.D.. PATIENT DENIES BITING HIS TONGUE OR HAVING URINE INCONTINENCE PATIENT IS TELLING ME THAT WHAT HE HAD DOES NOT LOOK LIKE HIS REGULAR SEIZURE. LAST SEIZURE ACTIVITY WAS OVER 4 MONTHS AGO. PATIENT JUST FEELS TIRED AND WEAK BEFORE HAVING THIS KIND OF SYMPTOMS. Related Data Home Medications ?Medication ?Instructions ?Recorded ?Confirmed ?Last Taken ?Type aspirin 81 mg tablet,delayed 81 mg PO DAILY 03/30/21 09/22/24 1 Day Ago History release ~01/07/23 atorvastatin 40 mg tablet 40 mg PO HS high cholesterol 03/30/21 09/22/24 1 Day Ago History ~01/07/23 biotin 5,000 mcg disintegrating 5,000 mcg PO DAILY supplement 03/30/21 09/22/24 1 Day Ago History tablet ~01/07/23 levothyroxine 137 mcg tablet 137 mcg PO QAM hypothyroidism 03/30/21 09/22/24 1 Day Ago History ~01/07/23 tamsulosin 0.4 mg capsule 0.8 mg PO HS benign prostatic 03/30/21 09/22/24 1 Day Ago History hyperplasia ~01/07/23 ascorbic acid (vitamin C) 500 mg 500 mg PO BID wound healing 01/18/22 09/22/24 1 Day Ago History capsule ~01/07/23 duloxetine 60 mg capsule,delayed 60 mg PO DAILY depression 01/18/22 09/22/24 1 Day Ago History release ~01/07/23 baclofen 5 mg tablet 10 mg PO TID 06/09/22 09/22/24 1 Day Ago History ~01/07/23 dulaglutide 0.75 mg/0.5 mL 0.75 mg subcut WEEKLY 06/09/22 09/22/24 01/24/23 History subcutaneous pen injector (Trulicity) empagliflozin 25 mg tablet 25 mg PO DAILY type 2 diabetes 06/09/22 09/22/24 1 Day Ago History (Jardiance) ~01/07/23 ferrous gluconate 324 mg (38 mg 324 mg PO DAILY supplementation 06/09/22 09/22/24 1 Day Ago History iron) tablet ~01/07/23 ipratropium 0.5 mg-albuterol 3 mg 3 ml inhalation Q6H PRN Shortness 06/09/22 09/22/24 1 Day Ago History (2.5 mg base)/3 mL nebulization Of Breath ~01/07/23 soln latanoprost 0.005 % eye drops 1 drp EACH EYE HS glaucoma 06/09/22 09/22/24 1 Day Ago History ~01/07/23 brimonidine 0.2 % eye drops 1 drp EACH EYE BID glaucoma 12/29/22 09/22/24 1 Day Ago History ~01/07/23 diclofenac sodium 1 % topical gel 1 ea topical BID 12/29/22 09/22/24 1 Day Ago History ~01/07/23 Nystatin Powder 1 applic topical Q12H PRN Rash 03/06/23 09/22/24 Unknown History acetaminophen 500 mg tablet 1,000 mg PO Q8H PRN Pain (Scale 03/06/23 09/22/24 Unknown History (Acetaminophen Extra Strength) Score 4-6) azelastine 137 mcg (0.1 %) nasal 1 spray intranasal Q12H allergic 03/06/23 09/22/24 Unknown History spray rhinitis magnesium oxide 400 mg (241.3 mg 400 mg PO DAILY hypomagnesemia 03/06/23 09/22/24 Unknown History magnesium) tablet peg [id number] 1 1 drp EACH EYE BID dry eyes 03/06/23 09/22/24 Unknown History %-0.2 %-0.2 % eye drops (Artificial Tears ([id number])) glucagon 1 mg injection kit 1 mg subcut PRN PRN Hypoglycemia 04/17/23 09/22/24 Unknown History insulin lispro 100 unit/mL 3 unit subcut AC 04/17/23 09/22/24 Unknown History subcutaneous pen (Humalog KwikPen (U-100) Insulin) omeprazole 20 mg capsule,delayed 20 mg PO DAILY 04/17/23 09/22/24 Unknown History release cetirizine 10 mg tablet 10 mg PO DAILY 06/14/23 09/22/24 Unknown History miconazole nitrate 2 % topical 1 applic topical HS 06/14/23 09/22/24 Unknown History cream bisacodyl 10 mg rectal suppository 10 mg RECTAL DAILY PRN Constipation 01/02/24 09/22/24 Unknown History insulin lispro 100 unit/mL 1 sliding scale dose subcut 01/02/24 09/22/24 Unknown History subcutaneous pen (Humalog KwikPen USEASDIRECTD (U-100) Insulin) magnesium hydroxide 400 mg/5 mL 30 ml PO HS PRN Constipation 01/02/24 09/22/24 Unknown History oral suspension (Milk of Magnesia) metoprolol succinate 25 mg 25 mg PO DAILY 01/02/24 09/22/24 Unknown History tablet,extended release 24 hr (Toprol XL) polyethylene glycol 3350 17 gram 17 g PO DAILY PRN Constipation 01/02/24 09/22/24 Unknown History oral powder packet potassium chloride 10 mEq 10 meq PO DAILY 02/11/24 09/22/24 Unknown History tablet,extended release loperamide 2 mg capsule 2 mg PO Q12H PRN Diarrhea 03/13/24 09/22/24 Unknown History carboxymethyl 0.5 %-glycerin 1 1 drp EACH EYE BID 08/17/24 09/22/24 Unknown History %-polysorb 80 0.5 %-PF eye dropperette (Refresh Optive Advanced (PF)) lidocaine 4 % topical patch 1 patch topical DAILY 08/17/24 09/22/24 Unknown History (Lidocaine Pain Relief) melatonin 5 mg tablet 5 mg PO HS 08/17/24 09/22/24 Unknown History multivitamin (Multiple Vitamins 1 tablet PO DAILY 08/17/24 09/22/24 Unknown History tablet) sodium phosphates 19 gram-7 118 ml RECTAL USEASDIRECTD PRN 08/17/24 09/22/24 Unknown History gram/118 mL enema (Fleet Enema) Constipation febuxostat 40 mg tablet (Uloric) 40 mg PO DAILY 09/22/24 09/22/24 Unknown History insulin glargine 100 unit/mL (3 12 unit subcut HS 09/22/24 09/22/24 Unknown History mL) subcutaneous pen (Lantus Solostar U-100 Insulin) liraglutide 0.6 mg/0.1 mL (18 mg/3 1.2 mg subcut DAILY 09/22/24 09/22/24 Unknown History mL) subcutaneous pen injector lorazepam 2 mg/mL injection 0.5 mg IM Q4H PRN Seizures 09/22/24 09/22/24 Unknown History solution magnesium citrate (Citroma oral 296 ml PO DAILY PRN Constipation 09/22/24 09/22/24 Unknown History solution) miconazole nitrate 2 % topical 1 applic topical BID 09/22/24 09/22/24 Unknown History cream (Micatin) phenazopyridine 100 mg tablet 100 mg PO TID 09/22/24 09/22/24 Unknown History allopurinol 100 mg tablet 100 mg PO DAILY 02/18/25 Unknown History pregabalin 75 mg capsule 150 mg PO BID 02/18/25 Unknown History primidone 50 mg tablet 100 mg PO BID 02/18/25 Unknown History spironolactone 25 mg tablet 25 mg PO DAILY 02/18/25 Unknown History Allergies Allergy/AdvReac Type Severity Reaction Status Date / Time No Known Allergies Allergy Unknown Verified 05/27/25 14:44 Review of Systems 2 Review of Systems: All systems reviewed & are unremarkable except as noted in HPI and below PMFSH Past Medical History Medical History 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 spastic hemiplegia Ventricular tachycardia Cerebrovascular accident Pulmonary hypertension Severe pulmonary hypertension with RVSP of 81 non echo December 2023 Chronic kidney disease, stage 3 Seizure disorder With epileptiform discharges from the left anterior temporal region on EKG December 2022 consistent with history of focal seizures Glaucoma Depression 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 Gout Hypothyroidism Chronic anemia (01/2019) Post CABG right parietal infarction resultant hemiplegia. Benign prostatic hyperplasia Hyperlipidemia Hypertension Ischemic cardiomyopathy EF was 20 to 25% and May 2023. Coronary artery disease Status post three-vessel bypass and left ventricular aneurysm repair in February 2019 at [facility]. Combined systolic and diastolic congestive heart failure EF 20-25% on echocardiogram December 2023 with grade 2 diastolic dysfunction, severe pulmonary hypertension with RVSP of 81, moderate aortic stenosis with peak velocity of to 4 mean gradient of 9 valve area 1.4 consistent with low- flow low gradient aortic stenosis RLS (restless legs syndrome) Surgical History Surgical History History of cardiac catheterization History of fusion of cervical spine History of coronary artery bypass graft (~02/2019) Three-vessel bypass and surgical repair of left ventricular aneurysm at [facility]. Family History Family History Mother Patient's mother is Hypertension Father Patient's father is Malignant neoplasm of prostate Social History Social History Social History: He reports that he has not been home since approximately 2019 due to difficulties with mobility he [facility]. 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 Healthcare power of deputy attorney general: Blanquita Ann, . Code status: Full code. Smoking packs per day: 1.5 Smoking cigarettes per day: 30.0 Years smoked: 30 Smoking pack-years: 45.00 Smoking status: Former smoker Tobacco type: cigarettes Second hand tobacco smoke exposure: No Alcohol intake: never Substance use: never Substance use type: does not use Do You Feel Safe in your Home?: Yes Lack of Transportation: No Lack of Food: Never True Current Housing: I Have Housing Concerned About Future Housing: No Difficulty Paying Gas/Electric Bills: No Difficulty Paying for Meds: No Currently Unemployed: No Education: High School Diploma/GED Difficulty w/ Childcare or Family Care: No Living arrangements: penitentiary Additional living arrangements comments: . He has resided at [facility] since 2019. 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 Spiritual care concerns: No Exam 2 Narrative: GENERAL APPEARANCE: WELL-DEVELOPED, WELL-NOURISHED SKIN: NORMAL COLOR HEAD: NORMOCEPHALIC, NONTRAUMATIC EYES: CLEAR CONJUNCTIVA ENT: OROPHARYNX NORMAL, EARS NORMAL, NOSE NORMAL NECK: SUPPLE, NONTENDER CHEST AND RESPIRATORY: AIRWAY PATENT, NO RESPIRATORY DISTRESS, NO ACCESSORY MUSCLE USE HEART: REGULAR RATE/RHYTHM ABDOMEN: SOFT, NONTENDER, NO ORGANOMEGALY, QUIET BOWEL SOUNDS VASCULAR: NORMAL PERIPHERAL PULSES, NORMAL CAPILLARY REFILL. MUSCULOSKELETAL: NORMAL RANGE OF MOTION, NONTENDER BACK NEUROLOGIC: ALERT AND ORIENTED ?3, LEAD SYSTEMS ENGINEER IS NORMAL TESTED, NO GROSS MOTOR DEFICIT Course Vital Signs Vital signs: Vital Signs Temperature 36.9 C 05/27/25 14:40 Pulse Rate 72 05/27/25 14:40 Respiratory Rate 17 05/27/25 14:40 Blood Pressure 127/106 H 05/27/25 14:40 Pulse Oximetry 95 05/27/25 14:40 Oxygen Delivery Room Air 05/27/25 14:40 Temperature 36.9 C 05/27/25 14:40 Pulse Rate 77 05/27/25 17:27 Respiratory Rate 24 H 05/27/25 17:27 Blood Pressure 105/79 05/27/25 17:27 Pulse Oximetry 96 05/27/25 17:27 Oxygen Delivery Room Air 05/27/25 14:40 Medical Decision Making MDM Narrative Medical decision making narrative: PATIENT PRESENTS WITH POSSIBLE SEIZURE-LIKE ACTIVITY VITAL SIGNS ARE STABLE PHYSICAL EXAMINATION IS UNREMARKABLE BLOOD WORKUP TODAY INCLUDES CBC, CMP SHOWED PLATELET COUNT 115 CONSISTENT WITH THE PREVIOUS READINGS, CREATININE 1.3 CONSISTENT WITH PREVIOUS READINGS, URINALYSIS SHOWED EVIDENCE OF INFECTION WHICH HIGH LIKELY THE UNDERLYING CAUSE OF PATIENT RECURRENT SEIZURE ROCEPHIN IV STARTED 1 G OF KEPPRA IV GIVEN ADMIT TO HOSPITALIST DIAGNOSIS ACUTE URINARY TRACT INFECTION, SEIZURE-LIKE ACTIVITIES Differential Diagnosis Differential Diagnosis: ABOVE Vital Signs Vital Signs: Vital Signs Temperature 36.9 C 05/27/25 14:40 Pulse Rate 72 05/27/25 14:40 Respiratory Rate 17 05/27/25 14:40 Blood Pressure 127/106 H 05/27/25 14:40 Pulse Oximetry 95 05/27/25 14:40 Oxygen Delivery Room Air 05/27/25 14:40 Temperature 36.9 C 05/27/25 14:40 Pulse Rate 77 05/27/25 17:27 Respiratory Rate 24 H 05/27/25 17:27 Blood Pressure 105/79 05/27/25 17:27 Pulse Oximetry 96 05/27/25 17:27 Oxygen Delivery Room Air 05/27/25 14:40 Lab Data 05/27/25 15:52 05/27/25 15:52 Labs: Lab Results 05/27/25 05/27/25 Range/Units 15:52 16:43 WBC 8.7 (4.5-10.0) K/mm3 RBC 4.53 L (4.6-6.20) M/mm3 Hgb 14.0 (14.0-18.0) g/dL Hct 44.1 (42.0-52.0) % MCV 97.4 (80-100) fl MCH 30.9 (26-34) pg MCHC 31.7 L (32-36) g/dl RDW 14.4 (11.5-14.5) % Plt Count 115 L (150-375) k/mm3 MPV 10.8 H (7.4-10.4) fl Immature Gran % (Auto) 1.1 H (0-0.5) % Neut % (Auto) 73.9 H (45.5-73.1) % Lymph % (Auto) 12.9 L (18.3-44.2) % [place] % (Auto) 8.6 H (2.6-8.5) % Eos % (Auto) 2.9 (0-4.4) % Baso % (Auto) 0.6 (0.2-1.2) % Lymph # (Auto) 1.12 (0.9-3.2) K/mm3 [place] # (Auto) 0.8 H (0.1-0.6) K/mm3 Eos # (Auto) 0.3 (0-0.3) K/mm3 Baso # (Auto) 0.1 (0.0-0.1) K/mm3 Abs Immat Gran (auto) 0.10 H (0.00-0.031) K/mm3 Absolute Neuts (auto) 6.4 (1.3-6.7) K/mm3 Absolute Nucleated RBC 0.000 (0.0-0.012) K/mm3 Nucleated RBC % 0.0 (0.0-0.2) % % Immature Plt Fraction 4.4 (0.9-11.2) % Sodium 138 (137-145) mmol/L Potassium 4.3 (3.4-5.0) mmol/L Chloride 101 (98-107) mmol/L Carbon Dioxide 27 (22-30) mmol/L Anion Gap 10 (4-12) mmol/L BUN 37 H (9-20) mg/dL Creatinine 1.38 H (0.7-1.3) mg/dL Estim Creat Clear Calc 57 ml/min Estimated GFR 52 L (59 - ) Glucose 191 H (65-110) mg/dL Calcium 8.7 (8.4-10.2) mg/dL Total Bilirubin 0.2 (0.2-1.3) mg/dL AST 47 (17-59) U/L ALT 27 (6-50) U/L Alkaline Phosphatase 149 H (38-126) U/L Total Protein 8.1 (6.3-8.2) g/dL Albumin 3.8 (3.5-5.1) g/dL Urine Color Yellow (Yellow) Urine Appearance Cloudy H (Clear) Urine pH 5.5 (5.0-9.0) Ur Specific [place] 1.018 (1.001-1.035) Urine Protein 3+ H (Negative) mg/dL Urine Glucose (UA) 3+ H (Negative) mg/dL Urine Ketones Negative (Negative) mg/dL Ur Blood (Man) 1+ H (Negative) Urine Nitrate Negative (Negative) Urine Bilirubin Negative (Negative) Urine Urobilinogen 0.2 (<2.0) mg/dL Leukocyte Esterase Rfl 2+ H (Negative) BRENDA/UL Urine RBC 0-2 (0-2) /hpf Urine WBC >100 H (0-3) /hpf Ur Squamous Epith Cells None seen (Few) /hpf Urine Bacteria None seen /hpf Urine Casts 0-2 Imaging Data Radiologist's impression: Impressions Chest X-Ray 05/27/25 16:12 IMPRESSION: Left-sided pleural effusion suspected without focal infiltrate. Critical Care Time Critical Care Time Critical Care Time: No Discharge Plan Discharge Clinical Impression: Observed seizure-like activity, Urinary tract infection Patient Disposition: Still a Patient Condition: Improved Patient Language: Gibralt[place] Prescriptions: No Action spironolactone 25 mg tablet 25 mg PO DAILY allopurinol 100 mg tablet 100 mg PO DAILY pregabalin 75 mg capsule 150 mg PO BID primidone 50 mg tablet 100 mg PO BID levetiracetam [Keppra] 500 mg tablet 1,500 mg PO Q12HR Qty: 84 0RF cetirizine 10 mg tablet 10 mg PO DAILY miconazole nitrate 2 % cream 1 applic topical HS Rx Instructions: apply to penis atorvastatin 40 mg tablet 40 mg PO HS levothyroxine 137 mcg tablet 137 mcg PO QAM aspirin 81 mg Tablet,Delayed Release (Dr/Ec) 81 mg PO DAILY biotin 5,000 mcg Tablet,Disintegrating 5,000 mcg PO DAILY tamsulosin 0.4 mg capsule 0.8 mg PO HS glucagon 1 mg Kit 1 mg subcut PRN PRN (Reason: Hypoglycemia) omeprazole 20 mg Capsule,Delayed Release(Dr/Ec) 20 mg PO DAILY insulin lispro [Humalog KwikPen Insulin] 100 unit/mL Insulin Pen 3 unit SUBCUT AC furosemide 40 mg tablet 40 mg PO BID Qty: 60 0RF potassium chloride 10 mEq tablet extended release 10 meq PO DAILY loperamide 2 mg Capsule 2 mg PO Q12H PRN (Reason: Diarrhea) Rx Instructions: give 1 capsule by mouth every 12 hours as needed for diarrhea. Do not exceed 16mg in any 24 hour period. Notify Provider if symptoms persist after 24 hours cefdinir 300 mg capsule 300 mg PO Q12H 10 Days Qty: 20 0RF doxycycline hyclate 100 mg tablet 100 mg PO BID Qty: 14 0RF cefdinir 300 mg capsule 300 mg PO Q12H 10 Days Qty: 20 0RF doxycycline hyclate 100 mg tablet 100 mg PO BID Qty: 14 0RF duloxetine 60 mg capsule,delayed release(DR/EC) 60 mg PO DAILY ascorbic acid (vitamin C) 500 mg Capsule 500 mg PO BID Jardiance 25 mg tablet 25 mg PO DAILY Trulicity 0.75 mg/0.5 mL Pen Injector 0.75 mg SUBCUT WEEKLY Rx Instructions: Wednesdays baclofen 5 mg tablet 10 mg PO TID ferrous gluconate 324 mg (38 mg iron) Tablet 324 mg PO DAILY latanoprost 0.005 % drops 1 drp EACH EYE HS ipratropium-albuterol 0.5 mg-3 mg(2.5 mg base)/3 mL Solution For Nebulization 3 ml INHALATION Q6H PRN (Reason: Shortness Of Breath) brimonidine 0.2 % drops 1 drp EACH EYE BID diclofenac sodium 1 % gel 1 ea TOPICAL BID Rx Instructions: apply to BLE acetaminophen [Acetaminophen Extra Strength] 500 mg Tablet 1,000 mg PO Q8H MDD 3000mg PRN (Reason: Pain (Scale Score 4-6)) azelastine 137 mcg (0.1 %) Aerosol,[place] 1 spray INTRANASAL Q12H Rx Instructions: administer into each nostril Artificial Tears([id number]) 1-0.2-0.2 % Drops 1 drp EACH EYE BID Nystatin Powder 1 applic topical Q12H PRN (Reason: Rash) Rx Instructions: apply nystatin powder to groin topically as needed for fungal rash groin magnesium oxide 400 mg (241.3 mg magnesium) tablet 400 mg PO DAILY bisacodyl 10 mg Suppository 10 mg RECTAL DAILY PRN (Reason: Constipation) Rx Instructions: if no results from MOM insulin lispro [Humalog KwikPen Insulin] 100 unit/mL Insulin Pen 1 sliding scale dose SUBCUT USEASDIRECTD Rx Instructions: sliding scale 151-200 3 201-250 6 251-300 9 301-350 12 351-400 15 If >400, call polyethylene glycol 3350 17 gram Powder In Packet 17 g PO DAILY PRN (Reason: Constipation) magnesium hydroxide [Milk of Magnesia] 400 mg/5 mL Suspension 30 ml PO HS PRN (Reason: Constipation) Rx Instructions: if no BM in 3 days metoprolol succinate [Toprol XL] 25 mg tablet extended release 24 hr 25 mg PO DAILY triamcinolone acetonide 0.1 % Cream 1 applic TOPICAL BID PRN (Reason: dermatitis) Qty: 15 0RF Rx Instructions: apply to face and neck redness topically two times a day for dermatitis multivitamin [Multiple Vitamins] Tablet 1 tablet PO DAILY lidocaine [Lidocaine Pain Relief] 4 % Adhesive Patch,Medicated 1 patch TOPICAL DAILY Rx Instructions: apply to left shoulder Fleet Enema 19-7 gram/118 mL Enema 118 ml RECTAL USEASDIRECTD PRN (Reason: Constipation) Rx Instructions: insert one application rectally as needed for constipation if no results 1 day after suppository melatonin 5 mg Tablet 5 mg PO HS Refresh Optive Advanced (PF) 0.5-1-0.5 % Dropperette 1 drp EACH EYE BID miconazole nitrate [Micatin] 2 % Cream 1 applic TOPICAL BID lorazepam 2 mg/mL Solution 0.5 mg IM Q4H PRN (Reason: Seizures) phenazopyridine 100 mg Tablet 100 mg PO TID Rx Instructions: end date 09/24/24 insulin glargine [Lantus Solostar U-100 Insulin] 100 unit/mL (3 mL) insulin pen 12 unit SUBCUT HS febuxostat [Uloric] 40 mg Tablet 40 mg PO DAILY liraglutide 0.6 mg/0.1 mL (18 mg/3 mL) Pen Injector 1.2 mg SUBCUT DAILY magnesium citrate [Citroma] Solution 296 ml PO DAILY PRN (Reason: Constipation) Rx Instructions: administer if no results after enema Follow-up/Referrals: Bryan Panchal MD [Primary Care Provider] -
[2025-05-27 14:40] VITALS: BP 127/106; PULSE 72; RESP 17; TEMP 36.9; O2SAT 95
--- OUTSIDE RECORDS SUMMARY | 2025-05-27 15:38 | XMS_ITS | Clinical Summary ---
Author Organization [facility] Address [address] [place] [address] Phone Care Team Providers Care Red Mud Thickener Operator Name Role Phone Caitlin Castillo MD Primary Care Provider [phone] Micah Romero MD Unavailable Allergies Active Allergy Reactions Criticality Noted Date Comments Aspartame Other (see Comments) 08/11/2024 HEADACHE Medications acetaminophen (TYLENOL) 500 MG Tablet Take 1,000 mg by mouth every 8 hours as needed. Active allopurinol (ZYLOPRIM) 100 MG Tablet Take 100 mg by mouth. 9 Active atorvastatin (LIPITOR) 40 MG Tablet Take 40 mg by mouth nightly. 3 Active apixaban (ELIQUIS) 5 MG Tablet Take 5 mg by mouth. Active aspirin 81 MG Chewable Tablet Take 1 Tablet by mouth daily. Active baclofen (LIORESAL) 5 MG Tablet Take 10 mg by mouth 3 times daily. 9 Active bisacodyl 10 MG Suppository 10 mg by Rectal route as needed (if no result from MOM). 9 Active cetirizine (ZyrTEC) 10 MG Tablet Take 10 mg by mouth daily. Active Diclofenac Sodium (VOLTAREN) 1 % Gel Apply. 3 Active Jardiance 25 MG Tablet Take 25 mg by mouth daily. 3 Active DULoxetine (CYMBALTA) [address] Particles Take 60 mg by mouth daily. 3 Active furosemide (LASIX) 40 MG Tablet Take 80 mg by mouth in the morning and at bedtime. 3 Active insulin glargine (LANTUS) 100 UNIT/ML SolutionIndicat ions:Type 2 Diabetes Mellitus 12 Units by Subcutaneous route nightly. Indications: Type 2 Diabetes Active HumaLOG KwikPen 100 UNIT/ML Solution Pen-injector 3 Units by Subcutaneous route 3 times daily (before meals). Sliding scale also 3 Active latanoprost (XALATAN) 0.005 % Solution Place 1 Drop in both eyes nightly. 3 Active insulin lispro (HumaLOG) 100 UNIT/ML Solution 3 Units by Subcutaneous route 3 times daily (before meals). 9 Active levothyroxine (SYNTHROID) 137 MCG Tablet Take 137 mcg by mouth daily. 3 Active loperamide (IMODIUM) 2 MG Capsule Take 1 Capsule by mouth every 4 hours as needed. 4 Active Magnesium Oxide 400 MG Capsule Take by mouth. Active magnesium citrate (V-R MAGNESIUM CITRATE) 1.745 GM/30ML Solution Take 296 mL by mouth. 3 Active metoprolol Succinate (TOPROL-XL) 25 MG TABLET SR 24 HR Take 50 mg by mouth daily. 3 Active omeprazole (PriLOSEC) 20 MG CAPSULE DELAYED RELEASE Take 20 mg by mouth daily. Active pregabalin (Lyrica) 75 MG Capsule Take 150 mg by mouth 2 times daily. 3 Active primidone (MYSOLINE) 50 MG Tablet Take 2 Tablets by mouth 2 times daily. 3 Active spironolactone (ALDACTONE) 25 MG Tablet Take 25 mg by mouth. 9 Active tamsulosin (FLOMAX) [...] NO RESULTS 1 DAY AFTER SUPPOSITORY Active melatonin 3 MG Tablet Take 5 [...] Active Azelastine HCl 137 MCG/SPRAY Solution 1 Odin by Nasal route every 12 hours as [...] naloxone HCl (Narcan) 4 MG/0.1ML Liquid 1 Odin by Nasal route as needed for Opioid Reversal. Administer in one nostril for symptoms of overdose (severe sleepiness, breathing problems, not responsive). Call 911. May repeat 1 spray in alternate nostril in 2-3 minutes if needed. Active polyethylene glycol (GLYCOLAX, MIRALAX) 17 g Pack Take 17 g by mouth daily as needed (constipation). Dissolve in 4-8 oz of liquid. Active CRANBERRY PO Take 450 mg by mouth daily. Active ferrous sulfate 325 (65 Fe) MG Tablet Take 325 mg by mouth daily. Active GUAIFENESIN PO Take 600 mg by mouth 2 times daily. Active pentoxifylline (TRENtal) 400 MG Tablet Controlled Release Take 400 mg by mouth 2 times daily. Active albuterol 108 (90 Base) MCG/ACT Aerosol Solution take 1-2 Puffs by inhalation every 4 hours as needed. Active saccharomyces boulardii (FLORASTOR) 250 MG Capsule Take 250 mg by mouth 2 times daily. Active POTASSIUM CHLORIDE PO Take 10 mEq by mouth daily. Active LORazepam (ATIVAN) 2 MG/ML Solution 0.5 mg by Intravenous route every 4 hours as needed. Intramuscular injection Active Midazolam 5 MG/0.1ML Solution by Nasal route. Acti ve Active Problems Problem Noted Date Diagnosed Date Lymphadenopathy, retroperitoneal 11/27/2024 History of coronary artery bypass graft 11/27/19 25 History of cardioembolic stroke 11/27/2024 Normocytic anemia 11/27/2024 Bladder-neck obstruction 11/27/2024 Encounters Date Type Department Care Team Description 04/02/2025 Telephone [facility] [address] [place] [id number] Caitlin Castillo MD Referral from Last 3 Months Immunizations Immunization Administration Dates Next Due Covid-19, Mrna, Lnp-s, Pf, 30 Mcg/0.3 Ml Dose (P fizer) 02/16/2022,01/12/2022 Pneumococcal Vaccine - 13 Valent 03/22/2021 Pneumococcal conjugate PCV20 , polysaccharide [id number] conjugate, adjuvant, PF 11/02/2022 TDAP Vaccine 06/06/2021 [...] Sign Reading Time Taken Comments Blood Pressure 111/67 02/19/2025 11:37 AM CDT Pulse 71 02/19/2025 11:37 AM CDT Temperature 36.5 C (97.7 F) 02/19/2025 11:37 AM CDT Respiratory Rate 18 02/19/2025 11:37 AM CDT Oxygen Saturation 97% 02/19/2025 11:37 AM CDT Inhaled Oxygen Concentration - - Weight 106.1 kg (234 lb) 02/19/2025 11:37 AM CDT Height 190.5 cm (6' 3) 02/19/2025 11:37 AM CDT Body Mass Index 29.25 02/19/2025 11:37 AM CDT Plan of Treatment Upcoming Encounters Date Type Department Care Team (Late st Contact Info) Description 06/04/2025 10:15 AM CDT Office Visit [facility] [address] [place] [address] Micah Romero MD [address] [facility], [address] [address] Health Maintenance Due Date Last Done Comments Hepatitis C Virus (HCV) Screening 1958 Cologuard 2003 Colonoscopy 2003 Colorectal Cancer Screening 2003 Immunochemical Fecal Occult Blood 2003 Zoster Immunization (1 of 2) 2008 Respiratory Syncytial Virus (RSV) Immunization (Adult) (1 - Risk 60-74 years 1-dose series) 2018 AAA Screening Ultrasound 2023 SARS-COV-2 Immunization ( season) 2024 10/19/2022, 02/16/2022, 01/12/2022 Influenza Immunization (#1) 2025 11/02/2022 Td Immunization Every 10 Yea rs (Adults With 1 Tdap) 06/06/2031 06/06/2021 TdaP Immunization Discontinued 06/06/2021 Pneumococcal Immunization (5 0+ years) Completed 11/02/2022, 03/22/2021 PSA Discussion Completed 11/27/2024 Hepatitis B Immunization Aged Out No longer eligible based on patient's age to complete this topic Human Papillomavirus (HPV) Immunization Aged Out No longer eligible based on patient's age to complete this topic Meningococcal Immunization (ACWY) Aged Out No longer eligible based on patient's age to complete this topic Rotavirus Immunization Aged Out No lo nger eligible based on patient's age to complete this topic Procedures Procedure Name Priority Date/Time Associated Diagnosis Comments PSA DIAGNOSTIC,TOTAL Routine 11/27/2024 11:45 AM HOTEL DESK CLERK Normocytic anemia Bladder-neck obstruction from Last 3 Months or Most Recently Relevant to Health Maintenance Results * PSA DIAGNOSTIC,TOTAL (11/27/2024 11:45 AM HOTEL DESK CLERK) PSA, TOTAL (PROSTATIC SPECIFIC ANTIGEN) 1.07 <4.00 ng/mL 11/27/2024 1:10 PM HOTEL DESK CLERK [facility] Blood Venipuncture / Unknown 11/27/2024 11:45 AM HOTEL DESK CLERK 11/27/2024 11:45 AM HOTEL DESK CLERK Narrative [facility] - 11/27/2024 1:10 PM HOTEL DESK CLERK PSA NOTE: The PSA value should be used in conjunction with information available from clinical evaluation and other diagnostic procedures. The ALINITY Total PSA assay is a Chemiluminescent Microparticle Immunoassay (CMIA) for the quantitative determination of total PSA (both free PSA and PSA complexed to [id number]) in human serum. Total PSA values obtained with different assay methods, including Kaplan PSA assays, cannot be used interchangeably. Bryan Panchal MD CHEMISTRY ORDERABLES Fin al Result [facility] [address] [place] [address] from Last 3 Months or Most Recently Relevant to Health Maintenance Insurance MEDICARE C [facility] Advance Directives Documents on File Type Date Recorded Patient Medical Claims Assistant Expl anation Power of Acid Bath Mixer for Health Care 08/12/2024 3:33 PM Authorization to Dis close Health Info/Life-sustaining treatment/POA/ Personal Medical Claims Assistant Designation Care Teams Red Mud Thickener Operator Relationship Specialty Start Date End Date Caitlin Castillo MD [address] [place] [address] PCP - General Family Medicine 07/10/24 Micah Romero MD [address] [facility] [address] [place] [address] Consulting Physician Urology 07/10/24
--- OUTSIDE RECORDS SUMMARY | 2025-05-27 15:38 | XMS_ITS | Clinical Summary ---
Author Organization [facility] Address [address] [place] [address] Care Team Providers Care Soda Clerk Name Role Phone Unavailable Primary Care Provider [...] 1:00 AM CDT Height 190.5 cm (6' 3) 01/23/2019 1:34 PM CDT Body Mass Index 26.87 01/23/2019 1:34 PM CDT Plan of Treatment Not on file Advance Directives * Full Resuscitation (Latest Code Status on File) Date Activated Date Inactivated Comments 01/22/2019 8:10 PM 02/13/2019 2:18 PM
--- OUTSIDE RECORDS SUMMARY | 2025-05-27 15:38 | XMS_ITS | Clinical Summary ---
Author Organization [facility] Address [address] [facility] [place] [address] Care Team Providers Care Contractor General Engineering Name Role Phone Ike Rodríguez MD Primary Care Provider [phone] Source Comments [facility],non-owned Affiliates and Associated Physician Practices is amultiple site organization consisting of ambulatory clinics and hospital sitesin [place], [place], [place] and [place]. This disclosure is being madepursuant to the Care Everywhere program and may not contain all information available regarding this patient. Last updated 18.[employer] Allergies No known active allergies Medications * Be aware that medications may not be up to date on this document. Alwaysverify current medications with the patient. atorvastatin (Lipitor) 40 MG tablet Take 1 [...] mouth 2 times daily Active insulin lispro (HumaLOG;ADMel og) 100 UNIT/ML pen Inject 3 (three) Units subcutaneously daily before breakfast Active insulin glargine (Lantus/Semgle e) 100 units/ml injection Inject 45 (forty five) [...] (two) capsules by mouth 3 times daily Active albuterol-ipra tropium (Duo-Neb) 0.5-2.5 (3) MG/3ML nebulizer solution Inhale [...] Date Diagnosed Date Status epilepticus 02/04/2023 Immunizations Immunization Administration Dates Next Due Trampoline BIVALENT 12Y+ 30mcg/0.3ML 2 [employer] primary Monovalent 12+ yr 0.3ml ,01/12/2022 TDAP, [...] place to sleep or slept in a nursing home (including now)? No 02/05/2023 Sex and Gender Information Value Date Recorded Sex Assigned at Not on file Legal Sex Male 9:14 AM CDT Gender Identity Not on file Sexual [...] 12:31 AM CDT Height 190.5 cm (6' 3) 04/03/2023 12:31 AM CDT Body Mass Index [...] (4 - season) 2024 10/19/2022, 02/16/2022, 01/12/2022 DEPRESSION SCREENING 11/05/2024 INFLUENZA VACCINE (#1) 2025 SCREENING FOR DIABETES 04/03/2026 3, 02/07/2023, 02/07/2023, [...] - 26 mg/dL 04/03/2023 1:43 AM CDT [facility] Creatinine 1.14 0.71 - 1.16 mg/dL 04/03/2023 1:43 AM CDT [facility] Sodium 143 136 - 145 mmol/L 04/03/2023 1:43 AM [facility] Potassium 3.8 3.5 - 4.5 mmol/L 04/03/2023 1:43 AM [facility] Chloride 112(H) 98 - 107 mmol/L 04/03/2023 1:43 AM [facility] CO2 22 22 - 29 mmol/L 04/03/2023 1:43 AM [facility] Glucose 117(H) 70 - 115 mg/dL 04/03/2023 1:43 AM [facility] Calcium 8.5 8.4 - 10.2 mg/dL 04/03/2023 1:43 AM [facility] Anion Gap 13 8 - 18 04/03/2023 1:43 AM [facility] BUN/Creatinine Ratio 18 7 - 23 04/03/2023 1:43 AM [facility] Osmolality Calculated 300 270 - 300 mOsm/kg 04/03/2023 1:43 AM [facility] eGFR by CKD-EPI 72(L) >=90 mL/min/1.7 3 m2 04/03/2023 1:43 AM [facility] Blood BLOOD SPECIMEN / Unknown Venipuncture / Unknown 04/03/2023 1:05 AM CDT 04/03/2023 1:15 AM [facility] us Candelario Francis MD LAB - CHEMISTRY ORDERABLES Final Result [facility] [address] [place] [address], [facility] [phone] from Last 3 Months or Most Recently Relevant to Health Maintenance Insurance MEDICAID - OUT OF STATE MEDICARE MEDICARE Care Teams Contractor General Engineering Relationship Specialty Start Date End Date Ike Rodríguez MD [address] [place] [address] PCP - General 06/26/22
--- OUTSIDE RECORDS SUMMARY | 2025-05-27 15:38 | XMS_ITS | Continuity of Care Document ---
Author Organization [facility] Address [address] [place] [address] Phone Care Team Providers Care Baggagemaster Name Role Phone Lucas Boyd MD Unavailable Unavailable Advance Directives Directive Yes / No Effective Date File Name No Information Encounters Encounter Description Practice Location Reason(s) For Visit Diagnoses Date Provider Providers Copied on Encounter [facility], [address], [place], [place], [id number], [place] tel:[phone] SEC Suraj MEEHAN Professional No Information [address] [facility] [address], [place], [place], [id number], [place]. tel:[phone] Referring Provider: Ike Rodriguez OD, [address], [address]. tel:[phone] Family History Family Member Type Diagnosis Age At Onset No Information Payers Payer name Insurance type Covered green party ID Authoriza tion(s) Medicaid [facility] [id number] Social History Type Description Quantity Date Captured [...]
--- OUTSIDE RECORDS SUMMARY | 2025-05-27 15:38 | XMS_ITS | Patient Health Record ---
Author Organization [facility] [employer] Address [address] [place] [address] Care Team Providers Care Weekend Caregiver Name Role Phone Xiomy Melendez Unavailable [phone] Reason For Referral No Information Medications Medication SIG (Take, Route, Frequency, Duration) Notes Start Date End Date Status Spironolactone 25 MG Oral 05/27/2021 Active INSULIN LISPRO (U-100) 100 UNIT/ML SUBCUTANEOUS SOLUTION *Reorder from SLID for eRx and Interaction Alerts* 05/27/2021 Active Tamsulosin HCl 0.4 MG Oral 05/27/2021 Active Ondansetron HCl 4 MG Oral 05/27/2021 Active rOPINIRole HCl 1 MG Oral 05/27/2021 Active Lisinopril 2.5 MG Oral 05/27/2021 A ctive Allopurinol 100 MG Oral 05/27/2021 Active Sertraline HCl 50 MG Oral 05/27/2021 Active Gabapentin 600 MG Oral 05/27/2021 A ctive Sertraline HCl 25 MG Oral 05/27/2021 Active Cyclobenzaprine HCl 5 MG Oral 05/27/2021 Active Warfarin Sodium 3 MG Oral 05/27/2021 Active Benzonatate 100 MG Oral 05/27/2021 Active Furosemide 40 MG Oral 05/27/2021 Ac tive Doxycycline Hyclate 100 MG Oral 05/27/2021 Active Lantus 100 UNIT/ML Subcutaneous 05/27/2021 Active metOLazone 5 MG Oral 05/27/2021 Act edilia amLODIPine Besylate 5 MG Oral 05/27/2021 Active Pantoprazole Sodium 40 MG Oral 05/27/2021 Active Silver sulfADIAZINE 1 % External 05/27/2021 Active Atorvastatin Calcium 40 MG Oral 05/27/2021 Active amLODIPine Besylate 2.5 MG Oral 05/27/2021 Active Furosemide 80 MG Oral 05/27/2021 Ac tive Amoxicillin-Pot Clavulanate 875-125 MG Oral 05/27/2021 Activ e Lantus SoloStar 100 UNIT/ML Subcutaneous 05/27/2021 Active Warfarin Sodium 4 MG Oral 05/27/2021 Active Carvedilol 6.25 MG Oral 05/27/2021 Active Allopurinol 300 MG Oral 05/27/2021 Active Gentamicin Sulfate 0.1 % External 05/27/2021 Active Levothyroxine Sodium 137 MCG Oral 05/27/2021 Active metFORMIN HCl 500 MG Oral 05/27/2021 Active Azithromycin 250 MG Oral 05/27/2021 Active Azithromycin 500 MG Oral 05/27/2021 Active Finasteride 5 MG Oral 05/27/2021 Ac tive Warfarin Sodium 1 MG Oral 05/27/2021 Active Gabapentin 300 MG Oral 05/27/2021 A ctive Fluticasone Propionate Diskus 50 MCG/ACT Inhalation *Reorder from SLID for eRx and Interaction Alerts* 05/27/2021 Active traMADol HCl 50 MG Oral 05/27/2021 Active ProAir HFA 108 (90 Base) MCG/ACT Inhalation 05/27/2021 Active Ipratropium-Albuterol 0.5-2.5 (3) MG/3ML Inhalation 05/27/2021 Active Baclofen 5 mg ORAL 05/27/2021 Activ e Plan Of Treatment No Information Insurance Providers Payer Name Payer Address Payer Phone Subscriber Number Group Number Insured Name Patient Relationship to Insured Coverage Start Date Coverage End Date [facility] Medicaid Replacement - Hmo [address] [place] [address] [id number] JOSE ORTIZ Self - patient is the insured
--- OUTSIDE RECORDS SUMMARY | 2025-05-27 15:38 | XMS_ITS | Clinical Summary ---
Author Organization [facility] [address] Address [address] [place] [address] Care Team Providers Care Utilities Estimator And Drafter Name Role Phone Rashid Thornton MD Primary Care Provider [phone] Allergies Active Allergy Reactions Criticality Noted Date [...] 1 tablet (137 mcg total) by mouth saute chef before breakfast 30 tablet 3 Active pregabalin [...] HFA) 90 mcg/actuation inhaler 5 Active multivitamin,tx-i wzy-Aw-WQ-min 27-0.4 mg tablet Take 1 tablet by [...] CABG 05/22/2019 Coronary artery disease invo lving [place] coronary artery of [place] heart without angina pectoris 04/21/2019 Cardiomyopathy, ischemic 04/21/2019 Postoperative atrial fibrillation 04/21/2019 Ischemic stroke 01/12/2019 Cardiogenic shock 01/12/2019 Hyperglycemia 01/12/2019 Bacteremia 01/12/2019 VT (ventricular tachycardia) 01/12/2019 VF (ventricular fibrillation) 01/12/2019 Coronary artery disease of n ative heart with stable angina pectoris 01/08/2019 Overview (01/09/2019): Added automatically from request for surgery [id number] Acute ST elevation myocardia l infarction (STEMI) [...] on file Legal Sex Male 12:35 PM CERAMIC SAW TENDER Gender Identity Not on file Sexual Orientation Not on file Obstetrics History Last Filed Vital Signs Vital Sign Reading Time Taken Comments Blood Pressure 102/58 01/06/2025 10:54 AM CERAMIC SAW TENDER Pulse 70 01/06/2025 10:54 AM CERAMIC SAW TENDER Temperature 36.4 C (97.5 F) 06/25/2023 12:49 PM CDT Respiratory Rate 18 06/25/2023 12:49 PM CDT Oxygen Saturation 98% 01/06/2025 10:54 AM CERAMIC SAW TENDER Inhaled Oxygen Concentration - - Weight 101.2 kg (223 lb) 01/06/2025 10:54 AM CERAMIC SAW TENDER Height 190.5 cm (6' 3) 01/06/2025 10:54 AM CERAMIC SAW TENDER Body Mass Index 27.87 01/06/2025 10:54 AM CERAMIC SAW TENDER Plan of Treatment Health Maintenance Due Date Last Done Comments Colon Cancer Screening-Colonoscopy 1960 Hepatitis C Screening 1960 Prostate Cancer Screening-PSA 1958 Hepatitis B Screening 1976 Lung Cancer Screening 2008 Zoster Vaccine (1 of 2) 2008 Depression Screening 01/09/2020 01/08/2019 Well Visit 65+ 2023 Fall Risk Assessment 05/25/2024 05/25/2023 Covid-19 Vaccine ( season) 2024 10/19/2022, 02/16/2022, 01/12/2022 Influenza Vaccine (Season Ended) 2025 11/02/20 22 DTaP/Tdap/Td Vaccine (2 - Td or Tdap) 06/06/203112/2020 Pneumococcal vaccine 65+ Completed 11/02/2022, 03/05 Abdominal Aortic Aneurysm (A AA) Screen Completed 10/31/2024 Medical Devices Implanted Type Area Parole Board Member Device Identifier Shelf Expiration Date Model / Serial / Lot [employer] [id number] Hemashield 6x2in 2 Velour Knitted Impregnated Nonsealed Tapered - [id number] - [id number] Implanted:Qty: 1 on 01/10/2019 by Gui Monae MD at [facility] N/A: Heart [employer] [id number] 03/04/2021 [id number] / [id number] Insurance IDPA [facility] MEDICARE [facility] [place] [facility] Address: [address] [address] [place] [address] IDND IDPA MEDICARE [facility] MEDICARE ADVANTAGE Advance Directives For more information, please contact: [phone] Documents on File Type Date Recorded Patient Antique Repairer Expl anation ADVANCE DIRECTIVE 02/10/2020 ADVANCE DIRECTIVE 01/15/2020 * Full Code (Latest Code Status on File) Date Activated Date Inactivated Comments 05/22/2023 12:09 PM 05/25/2023 10:31 PM * Full Code Date Activated Date Inactivated Comments 01/08/2019 4:00 PM 01/22/2019 7:08 PM Care Teams Utilities Estimator And Drafter Relationship Specialty Start Date End Date Rashid Thornton MD [address] [place] [address] PCP - General Family Medicine 06/05/24
--- OUTSIDE RECORDS SUMMARY | 2025-05-27 15:38 | XMS_ITS | Referral Summary ---
Author Organization [facility] [address] Address [address] [place] [address] Care Team Providers Care Party Planner Name Role Phone Rashid Thornton MD Primary Care Provider [phone] Allergies Active Allergy Reactions Criticality Noted Date [...] 1 tablet (137 mcg total) by mouth quality assurance engineer before breakfast 30 tablet 3 Active pregabalin [...] HFA) 90 mcg/actuation inhaler 5 Active multivitamin,tx-i gkx-Fu-AZ-min 27-0.4 mg tablet Take 1 tablet by [...] CABG 05/22/2019 Coronary artery disease invo lving [place] coronary artery of [place] heart without angina pectoris 04/21/2019 Cardiomyopathy, ischemic 04/21/2019 Postoperative atrial fibrillation 04/21/2019 Ischemic stroke 01/12/2019 Cardiogenic shock 01/12/2019 Hyperglycemia 01/12/2019 Bacteremia 01/12/2019 VT (ventricular tachycardia) 01/12/2019 VF (ventricular fibrillation) 01/12/2019 Coronary artery disease of n ative heart with stable angina pectoris 01/08/2019 Overview (01/09/2019): Added automatically from request for surgery [id number] Acute ST elevation myocardia l infarction (STEMI) [...] on file Legal Sex Male 12:35 PM LINUX SYSTEM ENGINEER Gender Identity Not on file Sexual Orientation Not on file Last Filed Vital Signs Vital Sign Reading Time Taken Comments Blood Pressure 102/58 01/06/2025 10:54 AM LINUX SYSTEM ENGINEER Pulse 70 01/06/2025 10:54 AM LINUX SYSTEM ENGINEER Temperature 36.4 C (97.5 F) 06/25/2023 12:49 PM CDT Respiratory Rate 18 06/25/2023 12:49 PM CDT Oxygen Saturation 98% 01/06/2025 10:54 AM LINUX SYSTEM ENGINEER Inhaled Oxygen Concentration - - Weight 101.2 kg (223 lb) 01/06/2025 10:54 AM LINUX SYSTEM ENGINEER Height 190.5 cm (6' 3) 01/06/2025 10:54 AM LINUX SYSTEM ENGINEER Body Mass Index 27.87 01/06/2025 10:54 AM LINUX SYSTEM ENGINEER Plan of Treatment Not on file Medical Devices Implanted Type Area Trophy Assembler Device Identifier Shelf Expiration Date Model / Serial / Lot [employer] [id number] Hemashield 6x2in 2 Velour Knitted Impregnated Nonsealed Tapered - [id number] - [id number] Implanted:Qty: 1 on 01/10/2019 by Gui Monae MD at [facility] N/A: Heart [employer] [id number] 03/04/2021 [id number] / [id number] Insurance IDIN [facility] MEDICARE ADVANTAGE [facility] MEDIC[facility] Address: [address] [address] [place] [address] IDIN IDIN MEDICARE [facility] Address: [address] [address] [place] [address] [facility] MEDICARE ADVANTAGE [facility] MEDICARE Address: [address] [address] [place] [address] Advance Directives For more information, please contact: [phone] Documents on File Type Date Recorded Patient Grades 1 Thru 6 Visiting Teacher Expl anation ADVANCE DIRECTIVE 02/10/2020 ADVANCE DIRECTIVE 01/15/2020 * Full Code (Latest Code Status on File) Date Activated Date Inactivated Comments 05/22/2023 12:09 PM 05/25/2023 10:31 PM * Full Code Date Activated Date Inactivated Comments 01/08/2019 4:00 PM 01/22/2019 7:08 PM Care Teams Party Planner Relationship Specialty Start Date End Date Rashid Thornton MD [address] [address] PCP - General Family Medicine 06/05/24
[2025-05-27] MEDS: levETIRAcetam 1000MG/NACL100ML 1,000 MG/100 ML BAG 400 MG IVPB (15:53)
[2025-05-27 15:59] LABS: Hematocrit 44.1 % (42.0-52.0); Hemoglobin 14.0 g/dL (14.0-18.0); Immature Granulocyte Percent A 1.1 % (0-0.5); Immature Platelet Fraction Pct 4.4 % (0.9-11.2); Lymphocytes Absolute Auto 1.12 K/mm3 (0.9-3.2); Mean Corpuscular HGB Conc 31.7 g/dl (32-36); Mean Corpuscular Hemoglobin 30.9 pg (26-34); Mean Corpuscular Volume 97.4 fl (80-100); Nucleated Red Blood Cells Absolute Auto 0.000 K/mm3 (0.0-0.012); Nucleated Red Blood Cells Perc 0.0 % (0.0-0.2); Platelet Count Result 115 k/mm3 (150-375); Red Blood Count 4.53 M/mm3 (4.6-6.20); White Blood Count 8.7 K/mm3 (4.5-10.0)
[2025-05-27 16:09] VITALS: BP 118/73; PULSE 76; RESP 22; O2SAT 96
[2025-05-27 16:26] LABS: Alanine Aminotransferase 27 U/L (6-50); Albumin Level 3.8 g/dL (3.5-5.1); Alkaline Phosphatase 149 U/L (38-126); Anion Gap 10 mmol/L (4-12); Aspartate Amino Transferase 47 U/L (17-59); Bilirubin,Total 0.2 mg/dL (0.2-1.3); Blood Urea Nitrogen 37 mg/dL (9-20); Calcium 8.7 mg/dL (8.4-10.2); Carbon Dioxide 27 mmol/L (22-30); Chloride 101 mmol/L (98-107); Estimated CRCL calculation 57 ml/min; Estimated Glomerular Filt Rate 52; Glucose 191 mg/dL (65-110); Potassium 4.3 mmol/L (3.4-5.0); Sodium 138 mmol/L (137-145); Total Protein 8.1 g/dL (6.3-8.2)
[2025-05-27 16:51] LABS: Add Urine Microscopic? YES; Appearance Urine Cloudy (Clear); Glucose Urine UA 3+ mg/dL (Negative); Leukocyte Esterase Ur 2+ LEU/UL (Negative); Nitrate Urine Negative (Negative); Non Pathogenic Casts 0-2; Specific Grav Ur 1.018 (1.001-1.035)
[2025-05-27 17:27] VITALS: BP 105/79; PULSE 77; RESP 24; O2SAT 96
[2025-05-27] MEDS: cefTRIAXone 1 GM in SODIUM CHLORIDE 0.9% IV 50 ML 100 ML IVPB (18:58)
[2025-05-27 19:04] VITALS: BP 120/78; PULSE 80; RESP 19; TEMP 36.7; O2SAT 94
[2025-05-27 20:01] VITALS: BP 132/78; PULSE 76; RESP 15; O2SAT 93
[2025-05-27 21:20] VITALS: BP 132/78; PULSE 76; RESP 15; O2SAT 93
[2025-05-27 22:05] VITALS: BMI 29.3
--- NOTE | 2025-05-27 22:05 | ADMGEN ---
This patient, Bayron Ann, was admitted to Medical Room 342-01. Patient/family oriented to hospital policies and general routines including ID bracelet, bed and alarms, visiting hours, pain management, procedures, bathroom and other care routines, personal items, smoking policy, room service/diet, and visiting hours. Information on how to activate the Rapid Response Team has been discussed. Patient/Family are encouraged to report perceived risks to care and to ask questions if they do not understand what they are told or what they should do.
--- NOTE | 2025-05-27 23:55 | P.HP_ITS ---
H&P: HPI History of Present Illness Date/Time: 05/27/25 23:55 Chief Complaint: Seizures Narrative: 64-year-old male with past medical history of seizure disorder, CVA with residual left-sided hemiplegia, combined systolic and diastolic heart failure, grade 2 diastolic dysfunction, severe pulmonary hypertension, essential hypertension, insulin-dependent diabetes mellitus among other comorbidities who presented to the ER from [facility] with reported 2 witnessed seizures by nursing staff. The patient's of is unsure if he really had a seizure. He remembers trying to stand up for physical therapy in his right leg giving out so he sat back down his wheelchair in slumped to the left side. He stated that he was having trouble staying sitting up. He reports that he generally just has not felt good for the last couple of days in felt weaker than usual before going to therapy. He requested to skip therapy and the therapist convinced him to still participate. He was then so weak when they got him back to his room that he was unable to assist in transfer and basically had be dragged back to bed. He reports that he is chronically weak on the left side due to a stroke. He is able to move his left arm more than he has is left leg. He did not feel that is strength in his left arm right leg is significantly changed from his baseline. His speech is at baseline. He denies any headaches. He denies any sensation of lightheadedness or near-syncope. He reports that he has been having some dysuria for several months. He has chronic weak urine stream. He denies any hematuria. His urine in the urinal at bedside is light yellow in color but markedly cloudy in turbid with large amounts of sediment. Patient has a olecranon bursitis. He reports that the swelling is been slowly getting larger. He reports that is occasionally uncomfortable when he is trying to lean on the arm rest of his wheelchair were on tables. He was hoping to get it drained in the near future. Patient is alert oriented x4 and is a good historian. Information was supplemented by review of past medical records, ER physician report and nursing report. Review of Systems 2 Review of Systems: 12 systems were reviewed with pertinent positives and negatives per HPI. Except as documented in the HPI, all other systems were reviewed and are negative. [facility] Past Medical History Medical History (Updated 05/28/25 @ 01:54 by Esperanaz Hutton DO) 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 spastic hemiplegia Ventricular tachycardia Cerebrovascular accident Pulmonary hypertension Severe pulmonary hypertension with RVSP of 81 non echo December 2023 Chronic kidney disease, stage 3 Seizure disorder With epileptiform discharges from the left anterior temporal region on EKG December 2022 consistent with history of focal seizures Glaucoma Depression Current use of long term care phlebotomist anticoagulation Insulin dependent diabetes mellitus Myocardial infarction (01/2019) Late presentation [place] found to have severe three-vessel disease, transferred to [facility] for emergent bypass with perioperative ventricular fibrillation arrest. Gout Hypothyroidism Chronic anemia (01/2019) Post CABG right parietal infarction resultant hemiplegia. Benign prostatic hyperplasia Hyperlipidemia Hypertension Ischemic cardiomyopathy EF was 20 to 25% and May 2023. Coronary artery disease Status post three-vessel bypass and left ventricular aneurysm repair in February 2019 at [facility]. Combined systolic and diastolic congestive heart failure EF 20-25% on echocardiogram December 2023 with grade 2 diastolic dysfunction, severe pulmonary hypertension with RVSP of 81, moderate aortic stenosis with peak velocity of to 4 mean gradient of 9 valve area 1.4 consistent with low- flow low gradient aortic stenosis RLS (restless legs syndrome) Surgical History Surgical History History of cardiac catheterization History of fusion of cervical spine History of coronary artery bypass graft (~02/2019) Three-vessel bypass and surgical repair of left ventricular aneurysm at [facility]. Family History Family History Mother Patient's mother is Hypertension Father Malignant neoplasm of prostate Patient's father is Sibling Lung cancer Sibling Heart attack Social History Social History Social History: He reports that he has not been home since approximately 2019 due to difficulties with mobility he has had to stay in the halfway since then. 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 Healthcare power of regulatory attorney: Blanquitavesna Ann, . Code status: Full code. Smoking packs per day: 1.5 Smoking cigarettes per day: 30.0 Years smoked: 30 Smoking pack-years: 45.00 Smoking status: Former smoker Second hand tobacco smoke exposure: No Alcohol intake: former Substance use: never Substance use type: does not use Do You Feel Safe in your Home?: Yes Lack of Transportation: No Lack of Food: Never True Current Housing: I Have Housing Concerned About Future Housing: No Difficulty Paying Gas/Electric Bills: No Difficulty Paying for Meds: No Currently Unemployed: No Education: High School Diploma/GED Difficulty w/ Childcare or Family Care: No Living arrangements: halfway Additional living arrangements comments: . He has resided at [facility] since 2019. 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 Spiritual care concerns: No Meds Home Medications and Allergies Home Medications ?Medication ?Instructions ?Recorded ?Confirmed ?Type aspirin 81 mg tablet,delayed 81 mg PO DAILY 03/30/21 05/27/25 History release atorvastatin 40 mg tablet 40 mg PO HS high cholesterol 03/30/21 05/27/25 History levothyroxine 137 mcg tablet 137 mcg PO QAM hypothyroidism 03/30/21 05/27/25 History tamsulosin 0.4 mg capsule 0.8 mg PO HS benign prostatic 03/30/21 05/27/25 History hyperplasia baclofen 5 mg tablet 10 mg PO TID 06/09/22 05/27/25 History empagliflozin 25 mg tablet 25 mg PO DAILY type 2 diabetes 06/09/22 05/27/25 History (Jardiance) ipratropium 0.5 mg-albuterol 3 mg 3 ml inhalation Q6H PRN Shortness 06/09/22 05/28/25 History (2.5 mg base)/3 mL nebulization Of Breath soln latanoprost 0.005 % eye drops 1 drp EACH EYE HS glaucoma 06/09/22 05/27/25 History brimonidine 0.2 % eye drops 1 drp EACH EYE BID glaucoma 12/29/22 05/27/25 History diclofenac sodium 1 % topical gel 1 ea topical BID 12/29/22 05/27/25 History acetaminophen 500 mg tablet 1,000 mg PO Q8H PRN Pain (Scale 03/06/23 05/27/25 History (Acetaminophen Extra Strength) Score 4-6) azelastine 137 mcg (0.1 %) nasal 1 spray intranasal Q12H allergic 03/06/23 05/27/25 History spray rhinitis magnesium oxide 400 mg (241.3 mg 400 mg PO DAILY hypomagnesemia 03/06/23 05/27/25 History magnesium) tablet glucagon 1 mg injection kit 1 mg subcut PRN PRN Hypoglycemia 04/17/23 05/27/25 History insulin lispro 100 unit/mL 3 unit subcut AC 04/17/23 05/27/25 History subcutaneous pen (Humalog KwikPen (U-100) Insulin) omeprazole 20 mg capsule,delayed 20 mg PO DAILY 04/17/23 05/27/25 History release miconazole nitrate 2 % topical 1 applic topical HS 06/14/23 05/27/25 History cream bisacodyl 10 mg rectal suppository 10 mg RECTAL DAILY PRN Constipation 01/02/24 05/27/25 History insulin lispro 100 unit/mL 1 sliding scale dose subcut 01/02/24 05/27/25 History subcutaneous pen (Humalog KwikPen USEASDIRECTD (U-100) Insulin) magnesium hydroxide 400 mg/5 mL 30 ml PO HS PRN Constipation 01/02/24 05/27/25 History oral suspension (Milk of Magnesia) polyethylene glycol 3350 17 gram 17 g PO DAILY PRN Constipation 01/02/24 05/27/25 History oral powder packet triamcinolone acetonide 0.1 % 1 applic topical BID PRN 01/07/24 05/27/25 Rx topical cream dermatitis #15 grams potassium chloride 10 mEq 10 meq PO DAILY 02/11/24 05/27/25 History tablet,extended release loperamide 2 mg capsule 2 mg PO Q12H PRN Diarrhea 03/13/24 05/27/25 History melatonin 5 mg tablet 5 mg PO HS 08/17/24 05/27/25 History multivitamin (Multiple Vitamins 1 tablet PO DAILY 08/17/24 05/27/25 History tablet) sodium phosphates 19 gram-7 118 ml RECTAL USEASDIRECTD PRN 08/17/24 05/27/25 History gram/118 mL enema (Fleet Enema) Constipation insulin glargine 100 unit/mL (3 12 unit subcut HS 09/22/24 05/27/25 History mL) subcutaneous pen (Lantus Solostar U-100 Insulin) lorazepam 2 mg/mL injection 0.5 mg IM Q4H PRN Seizures 09/22/24 05/27/25 History solution magnesium citrate (Citroma oral 296 ml PO DAILY PRN Constipation 09/22/24 05/27/25 History solution) allopurinol 100 mg tablet 100 mg PO DAILY 02/18/25 05/27/25 History levetiracetam 500 mg tablet 1,500 mg (3 x 500 mg) PO Q12HR #84 02/18/25 05/27/25 Rx (Keppra) tabs pregabalin 75 mg capsule 150 mg PO BID 02/18/25 05/27/25 History primidone 50 mg tablet 100 mg PO BID 02/18/25 05/27/25 History spironolactone 25 mg tablet 25 mg PO DAILY 02/18/25 05/27/25 History albuterol sulfate 90 mcg/actuation 2 inh inhalation Q4H PRN shortness 05/27/25 05/27/25 History aerosol inhaler (Ventolin HFA) of breath or wheezing apixaban 5 mg tablet (Eliquis) 5 mg PO Q12H 05/27/25 05/27/25 History artificial tears solution eye drops 1 drp ophthalmic (eye) BID 05/27/25 05/27/25 History bimatoprost 0.03 % eye drops 1 drp EACH EYE QPM 05/27/25 05/27/25 History cranberry fruit 450 mg tablet 450 mg PO BID 05/27/25 05/27/25 History (cranberry) duloxetine 20 mg capsule,delayed 40 mg PO DAILY 05/27/25 05/27/25 History release sprinkle (Drizalma Sprinkle) ferrous sulfate 325 mg (65 mg 325 mg PO DAILY 05/27/25 05/27/25 History iron) tablet,delayed release furosemide 40 mg tablet 80 mg PO BID 05/27/25 05/27/25 History guaifenesin 600 mg tablet, 600 mg PO Q12H PRN congestion 05/27/25 05/27/25 History extended release 12 hr metoprolol succinate 50 mg 50 mg PO DAILY 05/27/25 05/27/25 History tablet,extended release 24 hr midazolam 5 mg/spray (0.1 mL) 5 mg intranasal ONCE PRN seizure 05/27/25 05/27/25 History nasal spray activity pentoxifylline 400 mg 400 mg PO Q12H 05/27/25 05/27/25 History tablet,extended release tirzepatide 5 mg/0.5 mL 5 mg subcut WEEKLY 05/27/25 05/27/25 History subcutaneous pen injector (Jose) Allergies Allergy/AdvReac Type Severity Reaction Status Date / Time No Known Allergies Allergy Unknown Verified 05/27/25 14:44 Vital Signs Vital Signs - 24 hr 05/27/25 14:40 05/27/25 16:09 05/27/25 16:09 Temperature 98.5 F Pulse Rate 72 76 76 Respiratory Rate 17 22 H Blood Pressure 127/106 H 118/73 Pulse Oximetry 95 96 Oxygen Delivery Room Air 05/27/25 17:27 05/27/25 19:04 05/27/25 20:01 Temperature 98.0 F Pulse Rate 77 80 76 Respiratory Rate 24 H 19 15 Blood Pressure 105/79 120/78 132/78 Pulse Oximetry 96 94 93 Oxygen Delivery 05/27/25 21:20 05/28/25 00:00 Temperature 97.7 F Pulse Rate 76 74 Respiratory Rate 15 18 Blood Pressure 132/78 135/75 Pulse Oximetry 93 98 Oxygen Delivery Exam 2 Narrative: Weight 106.5 kg BMI 29.3 Const: Other: No acute distress, well-developed well-nourished, appears stated age HENMT: Other: Mucous membranes are moist, no oral pharyngeal erythema, upper and lower dentures in place Eyes: Other: Pupils are equal, thick clouded cataracts bilaterally, injected sclera bilaterally, no icterus Neck: Other: No JVD, no lymphadenopathy Resp: Other: Clear to auscultation bilaterally, no increased work of breathing Cardio: Other: Regular rate, 2+ bilateral radial pedal pulses, systolic murmur, 2+ bilateral radial pedal pulses GI: Other: Soft, distended, nontender, normoactive bowel sounds Skin: Other: Callus the posterior left hand oral with small scab, thick yellow toenails, Neuro: Other: Alert oriented x4, speech is clear, increased tone of the left upper extremity, decreased fine motor control left upper and lower extremity, 4/5 strength on straight leg raise right intact sensation, mild facial asymmetry, slow speech Extrem: Other: Weakness of the left upper and lower extremity consistent with history of hemiplegia, decreased range of motion in extension of the 3rd and 4th finger of the left hand consistent with contractures, he has gouty changes to bilateral patella, a as large olecranon bursitis of the left without erythema or warmth but tenderness with palpation. Psych: Other: Appropriate mood and affect, pleasant and cooperative, judgment and insight intact H&P: Results Labs Labs: Laboratory Tests 05/27/25 15:52 05/27/25 15:52 05/27/25 05/27/25 15:52 16:43 WBC 8.7 RBC 4.53 L Hgb 14.0 Hct 44.1 MCV 97.4 MCH 30.9 MCHC 31.7 L RDW 14.4 Plt Count 115 L MPV 10.8 H Immature Gran % (Auto) 1.1 H Neut % (Auto) 73.9 H Lymph % (Auto) 12.9 L [place] % (Auto) 8.6 H Eos % (Auto) 2.9 Baso % (Auto) 0.6 Lymph # (Auto) 1.12 [place] # (Auto) 0.8 H Eos # (Auto) 0.3 Baso # (Auto) 0.1 Abs Immat Gran (auto) 0.10 H Absolute Neuts (auto) 6.4 Absolute Nucleated RBC 0.000 Nucleated RBC % 0.0 % Immature Plt Fraction 4.4 Sodium 138 Potassium 4.3 Chloride 101 Carbon Dioxide 27 Anion Gap 10 BUN 37 H Creatinine 1.38 H Estim Creat Clear Calc 57 Estimated GFR 52 L Glucose 191 H Calcium 8.7 Total Bilirubin 0.2 AST 47 ALT 27 Alkaline Phosphatase 149 H Total Protein 8.1 Albumin 3.8 Urine Color Yellow Urine Appearance Cloudy H Urine pH 5.5 Ur Specific [place] 1.018 Urine Protein 3+ H Urine Glucose (UA) 3+ H Urine Ketones Negative Ur Blood (Man) 1+ H Urine Nitrate Negative Urine Bilirubin Negative Urine Urobilinogen 0.2 Leukocyte Esterase Rfl 2+ H Urine RBC 0-2 Urine WBC >100 H Ur Squamous Epith Cells None seen Urine Bacteria None seen Urine Casts 0-2 Impressions Chest X-Ray 05/27/25 16:12 IMPRESSION: Left-sided pleural effusion suspected without focal infiltrate. Assessment and Plan Assessment and plan (1) Observed seizure-like activity: Code(s): R56.9 - Unspecified convulsions Status: Acute Assessment and Plan: Patient had seizure-like activity but denies having known seizure. Although he states that would not be unusual for him did not realize he had a seizure. 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 Will check orthostatic vital signs to rule out component of orthostasis resulting in near syncopal episode. (2) Gouty olecranon bursitis of left elbow: Code(s): M10.9 - Gout, unspecified Status: Acute Assessment and Plan: The patient has a large area of swelling to the left olecranon. He reported that he is post to try to a get a outpatient follow-up for draining of the bursitis. He reports that the areas getting is more sore when he tries to lean against support equipment to try to stand up or the knee against a wheelchair. Unfortunately will not be able to arrange for inpatient aspiration as patient has been receiving is Eliquis.. 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 HS and hypoglycemia protocol. (4) Acute kidney injury superimposed on chronic kidney disease: Code(s): N17.9 - Acute kidney failure, unspecified; N18.9 - Chronic kidney disease, unspecified Status: Acute (5) Abnormal urinalysis: Code(s): R82.90 - Unspecified abnormal findings in urine Status: Acute Assessment and Plan: Patient has abnormal urinalysis but no nitrates or bacteria. He reports chronic dysuria. The patient is a urine culture that is pending. He was given empiric antibiotic therapy with Rocephin in the ER. Plan Patient has been admitted as observation status. MEDICAL DECISION MAKING NARRATIVE -Spoke with the ED provider in detail regarding patient's evaluation, workup and management -Patient seen and examined at bedside -Collaborated with patient's nurse at the bedside in detail and addressed all concerns -Labs, electrolytes, radiology, investigations and test results reviewed -ED/Consult/Nursing/Ancilliary notes on the chart reviewed and appreciated -Spoke with patient with plan discussed in all questions answered. Quality VTE Prophylaxis VTE prophylaxis: pharmacologic ordered (Continue on Eliquis) Hospitalist [facility] Advance Care Plan I have confirmed that the patient's Advanced Care Plan is present, code status is documented, or surrogate decision maker is listed in patient medical record.: Yes Medication Reconciliation I have utilized all available resources to obtain, update and review the patients current medications (includes all prescriptions, OTC, herbals, cannabis, and nutritional supplements).: Yes
[2025-05-28] VITALS (12 sets, daily range): BP systolic 103–148; BP diastolic 65–77; PULSE 54–91; RESP 14–20; TEMP 36.5–36.9; O2SAT 89–98
--- NOTE | 2025-05-28 | ECHO_ITS ---
Patient Info Name: Bayron Ann Age: 64 years : 1960 Gender: Male Ht: 75 in Wt: 234 lbs BSA: 2.39 m2 HR: 64 bpm BP: 139 / 74 mmHg Technical Quality: Good Exam Date: 05/28/2025 11:06 AM Patient Status: O Admit Date: 05/27/2025 Exam Type: CA echo dop color flow w con Complete two-dimensional, color flow and Doppler transthoracic echocardiogram is performed with contrast to opacify the left ventricle and to improve the deliniation of the left ventricle endocardial borders. Staff Referring Physician: Dulce Medina MD Bar Machine Operator Production: Simona Eubanks Attending Provider: Christine Amaya MD Contrast/Agitated Saline Contrast/Ag. Saline: Definity Amount: 2.00 ml Administered By: Simona Eubanks Summary 1. The left ventricle is severely dilated with severely reduced systolic function. The left ventricular ejection fraction is visually estimated to be 15-20%. 2. The right ventricle is dilated with reduced systolic function. 3. The left atrium is severely dilated. 4. The aortic valve is likely trileaflet and calcified. The leaflets are restricted. There is moderate aortic stenosis. There is trace aortic regurgitation. 5. There is severe pulmonary hypertension with PASP greater than 75 mm Hg. Left Ventricle The left ventricle is severely dilated with severely reduced systolic function. The left ventricular ejection fraction is visually estimated to be 15-20%. Right Ventricle The right ventricle is dilated with reduced systolic function. Left Atria The left atrium is severely dilated. Right Atria The right atrium is dilated. Atrial Septum The atrial septum is visually intact. Aortic Valve The aortic valve is likely trileaflet and calcified. The leaflets are restricted. There is moderate aortic stenosis. There is trace aortic regurgitation. Pulmonic Valve The pulmonic valve is normal. There is no significant pulmonic valve regurgitation. Mitral Valve The mitral valve is normal. There is mild mitral regurgitation. Tricuspid Valve The tricuspid valve is normal. There is moderate tricuspid regurgitation. Pulmonary Arteries There is severe pulmonary hypertension with PASP greater than 75 mm Hg. Pericardium/Pleural Pericardium is normal in appearance with no evidence for significant pericardial effusion. Inferior Vena Cava Inferior vena cava is not well visualized. Aorta The aortic root at the level of the sinus of Valsalva measures 3.3 cm in diameter. Left Ventricular Outflow Tract Name Value Normal LVOT 2D LVOT Diameter 2.0 cm LVOT Doppler LVOT Peak Velocity 121 cm/s LVOT Peak Gradient 6 mmHg LVOT Mean Gradient 3 mmHg LVOT VTI 29 cm LVOT VTI/AV VTI Ratio 0.5 LVOT Stroke Volume 90 ml LVOT CO 5.7 l/min LVOT CI 2.4 l/min/m2 Pulmonic Valve Name Value Normal RVOT Doppler RVOT Peak Velocity 75 cm/s RVOT Peak Gradient 2 mmHg PV Doppler PV Peak Velocity 94 cm/s PV Peak Gradient 4 mmHg Mitral Valve Name Value Normal MV Diastolic Function MV E Peak Velocity 88 cm/s MV A Peak Velocity 48 cm/s MV E/A 1.8 MV Decel Time (PW) 154 ms MV Annular TDI MV E/e' (Septal) 26.4 MV E/e' (Lateral) 17.4 MV E/e' (Average) 21.9 Tricuspid Valve Name Value Normal TV Regurgitation Doppler TR Peak Velocity 435 cm/s TR Peak Gradient 76 mmHg Aortic Valve Name Value Normal AV Doppler AV Peak Velocity 275 cm/s AV Peak Gradient 22 mmHg AV Mean Gradient 16 mmHg AV VTI 62 cm AV Area (Cont Eq VTI) 1.5 cm2 >=3.0 AV Area (Cont Eq Espinoza) 1.5 cm2 AV DI (Espinoza) 0.44 AV Regurgitation 2D LVOT Area 3.1 cm2 Ventricles Name Value Normal LV Dimensions 2D/MM IVS Diastolic Thickness (2D) 1.1 cm 0.6-1.0 LVID Diastole (2D) 6.9 cm 4.2-5.8 LVIW Diastolic Thickness (2D) 0.9 cm 0.6-1.0 LVID Systole (2D) 6.1 cm 2.5-4.0 LVOT Diameter 2.0 cm LV Mass (2D Cubed) 317.59 g 88.00-224.00 LV Mass Index (2D Cubed) 133 g/m2 49-115 Relative Wall Thickness (2D) 0.27 <=0.42 LV Fractional Shortening/Ejection Fraction 2D/MM LV Fractional Shortening (2D) 11 % 25-43 LV EF (2D Teichholz) 24 % LV Diastolic Volume (4C MOD) 221 ml LV EF (4C MOD) 22 % LV Diastolic Volume (2C MOD) 168 ml LV EF (2C MOD) 14 % LV Diastolic Volume (BP MOD) 201 ml 62-150 LV Diastolic Volume Index (BP MOD) 84 ml/m2 34-74 LV Systolic Volume (BP MOD) 158 ml 21-61 LV Systolic Volume Index (BP MOD) 66 ml/m2 11-31 LV EF (BP MOD) 21 % 52-72 LV Diastolic Length (4C) 9.8 cm LV Systolic Length (4C) 9.2 cm LV Stroke Volume (4C MOD) 49 ml Atria Name Value Normal LA Dimensions LA Volume (4C A-L) 123 ml LA Volume (BP A-L) 123 ml RA Dimensions RA Systolic Major [place] Length (4C) 6.2 cm 2.1-2.7 RA Area (4C) 23.1 cm2 <=18.0 Report Signatures
[2025-05-28] MEDS: SODIUM CHLORIDE 0.9% IV 1,000 ML 100 ML IV CONT (03:05)
[2025-05-28] MEDS: INSULIN GLARGINE (*BKC) 100 UNITS/ML 12 UNITS SUB-Q ×2 (03:06→21:47)
[2025-05-28] MEDS: ACETAMINOPHEN 325 MG TABLET 650 MG PO ×2 (03:28→12:28)
[2025-05-28] MEDS: LEVOTHYROXINE SODIUM 112 MCG TABLET PO (06:18)
[2025-05-28] MEDS: LEVOTHYROXINE SODIUM 25 MCG TABLET PO (06:18)
[2025-05-28 06:32] LABS: Hematocrit 42.9 % (42.0-52.0); Hemoglobin 13.9 g/dL (14.0-18.0); Immature Platelet Fraction Pct 4.7 % (0.9-11.2); Mean Corpuscular HGB Conc 32.4 g/dl (32-36); Mean Corpuscular Hemoglobin 31.6 pg (26-34); Mean Corpuscular Volume 97.5 fl (80-100); Platelet Count Result 113 k/mm3 (150-375); Red Blood Count 4.40 M/mm3 (4.6-6.20); White Blood Count 8.7 K/mm3 (4.5-10.0)
[2025-05-28 06:54] LABS: Anion Gap 8 mmol/L (4-12); Blood Urea Nitrogen 36 mg/dL (9-20); Calcium 8.5 mg/dL (8.4-10.2); Carbon Dioxide 28 mmol/L (22-30); Chloride 100 mmol/L (98-107); Estimated CRCL calculation 62 ml/min; Estimated Glomerular Filt Rate 58; Glucose 192 mg/dL (65-110); Potassium 4.1 mmol/L (3.4-5.0); Sodium 136 mmol/L (137-145)
--- NOTE | 2025-05-28 07:34 | P.PNIM_ITS ---
Progress Note: A&P Assessment and Plan (1) Observed seizure-like activity: Code(s): R56.9 - Unspecified convulsions Status: Acute Assessment and Plan: -with history of epilepsy on Keppra 1500 mg BID - last saw neurology 02/18/25 (Dr. Carlin) with concern for seizure-like activity - tramadol was discontinued, continued Keppra 1500mg BID, increased primidone to 100mg BID and pregabalin to 150 mg BID - unclear if presenting complaints were true seizure activity vs. presyncope. Patient feels symptoms were more due to weakness/lightheadedness. - consult neurology, appreciate recommendations. Defer EEG for now. - seizure precautions (2) Pre-syncope: Code(s): R55 - Syncope and collapse Status: Acute Assessment and Plan: - patient reported feeling lightheaded and SOB while working with therapy and was found slumped over. Unclear if he lost consciousness. - has prior history of VT per cardio notes - check orthostatics, echocardiogram. Monitor on telemetry - cardio consulted in setting of arrhythmia history and elevated troponin, appreciate recs. (3) Elevated troponin: Code(s): R79.89 - Other specified abnormal findings of blood chemistry Status: Acute Assessment and Plan: - troponin I 2.21 - denied chest pain, but reported near syncope and increased dyspnea. - EKG with new TWI in V1, V2 - trend troponin, monitor on telemetry - consult cardiology, appreciate recs (4) Gouty olecranon bursitis of left elbow: Code(s): M10.9 - Gout, unspecified Status: Acute Assessment and Plan: -patient has a large area of swelling to the left olecranon. Reported that he is supposed to get an outpatient follow-up for draining of the bursitis. He reports that the areas getting is more sore when he tries to lean against support equipment to try to stand up or the knee against a wheelchair. - Unfortunately will not be able to arrange for inpatient aspiration as patient has been receiving Eliquis. Encourage outpatient follow-up. (5) Type 2 diabetes mellitus with hyperglycemia, with long-term current use of insulin: Code(s): E11.65 - Type 2 diabetes mellitus with hyperglycemia; Z79.4 - terminal carman (current) use of insulin Status: Chronic Assessment and Plan: - continue lantus 12 u, lispro 3 u with meals and SSI - POCT glucose qACHS - hypoglycemia management protocol (6) Acute kidney injury superimposed on chronic kidney disease: Code(s): N17.9 - Acute kidney failure, unspecified; N18.9 - Chronic kidney disease, unspecified Status: Acute Assessment and Plan: - admit Cr 1.38, baseline 1.2 - received IV fluids. Will monintor off for now. - avoid nephrotoxins (7) Abnormal urinalysis: Code(s): R82.90 - Unspecified abnormal findings in urine Status: Acute Assessment and Plan: - UA with cloudy appearance, 1+ blood, 2+ LE, >100 WBC - reported chronic dysuria. Concern for UTI given weakness/fatigue. - continue IV Rocephin, await urine culture. (8) Seizure disorder: Code(s): G40.909 - Epilepsy, unspecified, not intractable, without status epilepticus Status: Acute Assessment and Plan: - continue home Keppra (9) Combined systolic and diastolic congestive heart failure: Code(s): I50.40 - Unspecified combined systolic (congestive) and diastolic (congestive) heart failure Status: Acute Assessment and Plan: - echo 12/2023 with EF 20-25%, G2DD, moderate aortic stenosis, NELLY 1.4 cm2 - continue home lasix, Jardiance, metoprolol, aldactone, unclear why not on ACEi. Appreciate cardio input. (10) Cerebrovascular accident (CVA) with left hemiparesis: Status: Acute Assessment and Plan: - with chronic L-sided weakness - continue home Eliquis (11) Coronary artery disease: Code(s): I25.10 - Atherosclerotic heart disease of [place] coronary artery without angina pectoris Status: Chronic Assessment and Plan: - continue home statin. Does not appear to be on antiplatelet. Appreciate cardio input. (12) Atrial fibrillation: Code(s): I48.91 - Unspecified atrial fibrillation Status: Acute Assessment and Plan: - continue home Eliquis, metoprolol Subjective Date/time seen: 05/28/25 07:34 Interval history: Patient seen and examined at bedside. Still feeling low energy and weak. Denies chest pain, SOB. Review of Systems Review of Systems: All systems reviewed & are unremarkable except as noted in HPI and below Exam Narrative: General: NAD Eyes: EOMI ENT: neck supple Cardiovascular: Regular rate and rhythm Respiratory: Clear to auscultation, respirations even and unlabored on RA Gastrointestinal: Soft, non tender Genitourinary: no suprapubic tenderness Musculoskeletal: No edema Skin: warm, dry Neuro: Alert. Strength R arm and leg 5/5, chronic left-sided weakness. Face symmetric, speech clear. Psych: Mood appropriate Objective Data Vital Signs Vital Signs: Vital Signs - 24 hr 05/27/25 14:40 05/27/25 16:09 05/27/25 16:09 Temperature 98.5 F Pulse Rate 72 76 76 Respiratory Rate 17 22 H Blood Pressure 127/106 H 118/73 Pulse Oximetry 95 96 Oxygen Delivery Room Air 05/27/25 17:27 05/27/25 19:04 05/27/25 20:01 Temperature 98.0 F Pulse Rate 77 80 76 Respiratory Rate 24 H 19 15 Blood Pressure 105/79 120/78 132/78 Pulse Oximetry 96 94 93 Oxygen Delivery 05/27/25 21:20 05/28/25 00:00 05/28/25 05:50 Temperature 97.7 F 98.3 F Pulse Rate 76 74 70 Respiratory Rate 15 18 18 Blood Pressure 132/78 135/75 139/74 Pulse Oximetry 93 98 91 Oxygen Delivery Intake/Output Intake/Output: Intake & Output 05/25/25 05/26/25 05/27/25 05/28/25 23:59 23:59 23:59 23:59 Intake Total 150 650 Output Total 1000 Balance 150 -350 Meds/Results Medications: Active Medications Generic Name Dose Route Start Last Admin Trade Name Freq PRN Reason Stop Dose Admin Acetaminophen 650 mg 05/27/25 18:19 05/28/25 03:28 Acetaminophen 325 Mg Tablet PO 650 mg Q4H PRN Administration Mild Pain (1-3) or Fever Albuterol/Ipratropium 3 ml 05/28/25 01:43 Ipratropium 0.5 Mg/Albuterol Sulfate 2.5 Mg Ampul.Neb 3 Ml INHALATION Q6H PRN Shortness Of Breath Allopurinol 100 mg 05/28/25 08:00 Allopurinol 100 Mg Tablet PO DAILY@0800 [facility] Apixaban 5 mg 05/28/25 09:00 Apixaban 5 Mg Tablet PO Q12HR [facility] Artificial Tears 1 drop 05/28/25 09:00 Artificial Tears Ophth Soln 15 Ml Bottle EACH EYE BID [facility] Aspirin 81 mg 05/28/25 09:00 Aspirin 81 Mg Enteric Tablet PO DAILY [facility] Atorvastatin Calcium 40 mg 05/28/25 21:00 Atorvastatin 40 Mg Tablet PO HS [facility] Azelastine HCl 1 spray 05/28/25 09:00 Azelastine Hcl Nasal 0.1% 137 Mcg/Spr 30 Ml Btl NASAL Q12HR [facility]Y Baclofen 10 mg 05/28/25 09:00 Baclofen 10 Mg Tablet PO TID [facility] Brimonidine Tartrate 1 drop 05/28/25 09:00 Brimonidine Tartrate 0.2% Op Soln 5 Ml Btl EACH EYE Q12HR [facility] Dextrose 12.5 gm 05/27/25 21:13 Dextrose 50% 25 Gm/50 Ml Syringe IV PUSH PRN PRN Hypoglycemia Protocol Diclofenac Sodium 1 applic 05/28/25 09:00 Diclofenac Sodium 1% 100 Gm Gel (*Bkc) TOPICAL BID [facility] Duloxetine HCl 40 mg 05/28/25 09:00 Duloxetine Hcl 20 Mg Capsule.Dr PO DAILY [facility] Ferrous Sulfate 325 mg 05/28/25 09:00 Ferrous Sulfate [address] PO DAILY [facility] Glucagon 1 mg 05/27/25 21:13 Glucagon For Inj 1 Mg Vial IM PRN PRN Hypoglycemia Protocol Glucose 15 gm 05/27/25 21:13 Glucose Oral Gel 15 Gm Of Glucse In 37.5 Gm Tube PO PRN PRN Hypoglycemia Protocol Ceftriaxone Sodium 1 gm/ 50 mls @ 100 mls/hr 05/28/25 18:00 Sodium Chloride IVPB Q24H [facility] Dextrose 1,000 mls @ 100 mls/hr 05/27/25 21:13 Dextrose 5% 1,000 Ml IVPB PRN PRN Hypoglycemia Protocol Sodium Chloride 1,000 mls @ 100 mls/hr 05/28/25 01:45 05/28/25 03:05 Normal Saline Iv IV CONT 05/28/25 11:44 100 mls/hr .Q10H JERRY Administration Insulin Aspart 1 - 3 units 05/28/25 21:00 Insulin Aspart (*Bkc) 100 Units/Ml SUB-Q HS [facility]Y Protocol Insulin Aspart 3 - 6 units 05/28/25 08:00 Insulin Aspart (*Bkc) 100 Units/Ml SUB-Q TIDWM [facility] Protocol Insulin Aspart 3 units 05/28/25 08:00 Insulin Aspart (*Bkc) 100 Units/Ml SUB-Q TIDWM [facility] Insulin Glargine 12 units 05/28/25 01:50 05/28/25 03:06 Insulin Glargine (*Bkc) 100 Units/Ml SUB-Q 12 units HS [facility] Administration Latanoprost 1 drop 05/28/25 21:00 Latanoprost 0.005% Op Soln 2.5 Ml Btl EACH EYE HS [facility] Levetiracetam 1,500 mg 05/28/25 09:00 Levetiracetam 500 Mg Tablet PO Q12HR [facility] Levothyroxine Sodium 112 mcg 05/28/25 06:30 05/28/25 06:18 Levothyroxine Sodium 112 Mcg Tablet PO 112 mcg DAILY@0630 [facility] Administration Levothyroxine Sodium 25 mcg 05/28/25 06:30 05/28/25 06:18 Levothyroxine Sodium 25 Mcg Tablet PO 25 mcg DAILY@0630 [facility] Administration Magnesium Hydroxide 30 ml 05/28/25 01:43 Magnesium Hydroxide Susp 30 Ml Udc PO HS PRN Constipation Magnesium Oxide 400 mg 05/28/25 09:00 Magnesium Oxide 400 Mg Tablet PO DAILY [facility] Melatonin 5 mg 05/28/25 21:00 Melatonin 5 Mg Tablet PO HS [facility] Metoprolol Succinate 50 mg 05/28/25 09:00 Metoprolol Succinate Ext Rel 50 Mg Tabcr PO DAILY [facility] Miconazole Nitrate 1 applic 05/28/25 21:00 Miconazole Nitrate 2% Cream 30 Gm Tube TOPICAL HS [facility] Ondansetron HCl 4 mg 05/27/25 18:19 Ondansetron Inj 4 Mg/2 Ml Vial IV PUSH Q4H PRN Nausea Pantoprazole Sodium 40 mg 05/28/25 09:00 Pantoprazole 40 Mg Tablet PO QAM [facility] Pentoxifylline 400 mg 05/28/25 09:00 Pentoxifylline 400 Mg Tabcr PO Q12HR [facility] Potassium Chloride 10 meq 05/28/25 08:00 Potassium Chloride 10 Meq Er Tablet PO DAILY@0800 [facility] Pregabalin 150 mg 05/28/25 09:00 Pregabalin (*Crx) 75 Mg Capsule PO Q12HR [facility] Primidone 100 mg 05/28/25 09:00 Primidone 50 Mg Tablet PO BID [facility] Tamsulosin HCl 0.8 mg 05/28/25 21:00 Tamsulosin Hcl 0.4 Mg Capsule PO HS [facility] Radiology Results: ITS Impressions Chest X-Ray 05/27/25 16:12 IMPRESSION: Left-sided pleural effusion suspected without focal infiltrate. Labs Labs: Laboratory Results - last 24 hr 05/27/25 05/27/25 05/28/25 15:52 16:43 03:03 WBC 8.7 RBC 4.53 L Hgb 14.0 Hct 44.1 MCV 97.4 MCH 30.9 MCHC 31.7 L RDW 14.4 Plt Count 115 L MPV 10.8 H Immature Gran % (Auto) 1.1 H Neut % (Auto) 73.9 H Lymph % (Auto) 12.9 L Richardson % (Auto) 8.6 H Eos % (Auto) 2.9 Baso % (Auto) 0.6 Lymph # (Auto) 1.12 Richardson # (Auto) 0.8 H Eos # (Auto) 0.3 Baso # (Auto) 0.1 Abs Immat Gran (auto) 0.10 H Absolute Neuts (auto) 6.4 Absolute Nucleated RBC 0.000 Nucleated RBC % 0.0 % Immature Plt Fraction 4.4 Sodium 138 Potassium 4.3 Chloride 101 Carbon Dioxide 27 Anion Gap 10 BUN 37 H Creatinine 1.38 H Estim Creat Clear Calc 57 Estimated GFR 52 L Glucose 191 H POC Capillary Glucose 225 H Calcium 8.7 Total Bilirubin 0.2 AST 47 ALT 27 Alkaline Phosphatase 149 H Total Protein 8.1 Albumin 3.8 Urine Color Yellow Urine Appearance Cloudy H Urine pH 5.5 Ur Specific [place] 1.018 Urine Protein 3+ H Urine Glucose (UA) 3+ H Urine Ketones Negative Ur Blood (Man) 1+ H Urine Nitrate Negative Urine Bilirubin Negative Urine Urobilinogen 0.2 Leukocyte Esterase Rfl 2+ H Urine RBC 0-2 Urine WBC >100 H Ur Squamous Epith Cells None seen Urine Bacteria None seen Urine Casts 0-2 05/28/25 06:07 WBC 8.7 RBC 4.40 L Hgb 13.9 L Hct 42.9 MCV 97.5 MCH 31.6 MCHC 32.4 RDW 14.4 Plt Count 113 L MPV 11.5 H Immature Gran % (Auto) Neut % (Auto) Lymph % (Auto) Richardson % (Auto) Eos % (Auto) Baso % (Auto) Lymph # (Auto) Richardson # (Auto) Eos # (Auto) Baso # (Auto) Abs Immat Gran (auto) Absolute Neuts (auto) Absolute Nucleated RBC Nucleated RBC % % Immature Plt Fraction 4.7 Sodium 136 L Potassium 4.1 Chloride 100 Carbon Dioxide 28 Anion Gap 8 BUN 36 H Creatinine 1.25 Estim Creat Clear Calc 62 Estimated GFR 58 L Glucose 192 H POC Capillary Glucose Calcium 8.5 Total Bilirubin AST ALT Alkaline Phosphatase Total Protein Albumin Urine Color Urine Appearance Urine pH Ur Specific [place] Urine Protein Urine Glucose (UA) Urine Ketones Ur Blood (Man) Urine Nitrate Urine Bilirubin Urine Urobilinogen Leukocyte Esterase Rfl Urine RBC Urine WBC Ur Squamous Epith Cells Urine Bacteria Urine Casts Quality VTE Prophylaxis VTE prophylaxis: pharmacologic ordered
[2025-05-28] MEDS: MAGNESIUM OXIDE 400 MG TABLET PO (08:37)
[2025-05-28] MEDS: ASPIRIN 81 MG ENTERIC TABLET PO (08:37)
[2025-05-28] MEDS: PREGABALIN (*CRX) 75 MG CAPSULE 150 MG PO (08:37)
[2025-05-28] MEDS: PENTOXIFYLLINE 400 MG TABCR PO ×2 (08:37→21:46)
[2025-05-28] MEDS: PANTOPRAZOLE 40 MG TABLET PO (08:37)
[2025-05-28] MEDS: PRIMIDONE 50 MG TABLET 100 MG PO ×2 (08:37→18:04)
[2025-05-28] MEDS: APIXABAN 5 MG TABLET PO ×2 (08:38→21:46)
[2025-05-28] MEDS: METOPROLOL SUCCINATE EXT REL 50 MG TABCR PO (08:38)
[2025-05-28] MEDS: FERROUS SULFATE 325 MG TABLET DR PO (08:38)
[2025-05-28] MEDS: BACLOFEN 10 MG TABLET PO ×3 (08:39→18:04)
[2025-05-28] MEDS: POTASSIUM CHLORIDE 10 MEQ ER TABLET PO (08:39)
[2025-05-28] MEDS: AZELASTINE HCL NASAL 0.1% 137 MCG/SPR 30 ML BTL 1 SPRAY NASAL ×2 (08:40→21:48)
[2025-05-28] MEDS: BRIMONIDINE TARTRATE 0.2% OP SOLN 5 ML BTL 1 DROP EACH EYE ×2 (08:43→21:49)
[2025-05-28] MEDS: INSULIN ASPART (*BKC) 100 UNITS/ML SUB-Q ×5 (08:50→21:48)
[2025-05-28] MEDS: ARTIFICIAL TEARS OPHTH SOLN 15 ML BOTTLE 1 DROP EACH EYE ×2 (08:52→18:04)
--- NOTE | 2025-05-28 10:07 | ECG_ITS ---
Test Date: 2025-05-28 10:31:54 Measurements Intervals [place] Rate: 66 P: 49 DE: 196 QRS: -33 QRSD: 137 T: 107 QT: 487 QTc: 512 Interpretive Statements SINUS RHYTHM LEFT AXIS DEVIATION [QRS AXIS < -30] LEFT VENTRICULAR HYPERTROPHY AND ST- T CHANGE ANTEROSEPTAL MYOCARDIAL INFARCTION , OF INDETERMINATE AGE [40+ ms Q WAVE IN V1-V4] INFERIOR INFARCT, AGE INDETERMINATE Compared to ECG 01/24/2025 23:04:06 Myocardial infarct finding now present Electronically Signed On 05-29-2025 15:49:10 CDT by Alex Iglesias M.D.
[2025-05-28 11:28] LABS: Troponin I 2.210 ng/mL (0.000-0.034)
[2025-05-28] MEDS: PERFLUTREN LIPID MICROSPHERES 1.5 ML VIAL DILUTED TO 10 ML TOTAL VOLUME IV PUSH (11:39)
--- NOTE | 2025-05-28 11:39 | IVDEFINITY ---
Prior to administration of IV Definity the patient was educated on the risks and benefits of the imaging enhancing agent including potential adverse side effects. The patient verbalized understanding. Allergies were verified. No exclusion criteria were identified and at least one of the following inclusion criteria were met: 1) physician request, 2) patient technically difficult to image (per the [employer]ocardi[employer] guidelines of two or more segments not discernable within the apical view), or 3) questionable left ventricular function. ?
[2025-05-28 14:56] LABS: Troponin I 2.080 ng/mL (0.000-0.034)
--- NOTE | 2025-05-28 17:15 | P.CONCA_ITS ---
Assessment and Plan Assessment and plan (1) Acute exacerbation of CHF (congestive heart failure): Qualifiers: Heart failure type: unspecified Qualified Code(s): I50.9 - Heart failure, unspecified Code(s): I50.9 - Heart failure, unspecified Status: Acute (2) Ischemic cardiomyopathy: Code(s): I25.5 - Ischemic cardiomyopathy Status: Chronic (3) Coronary artery disease: Code(s): I25.10 - Atherosclerotic heart disease of [place] coronary artery without angina pectoris Status: Chronic (4) Elevated troponin: Code(s): R79.89 - Other specified abnormal findings of blood chemistry Status: Acute Plan 64-year-old man with coronary artery disease status post CABG (YOUSSEF-OM1, Radial- OM2, [id number] with left ventricular aneurysmectomy complicated by VF arrest and ischemic stroke; LAD known to be occluded), post op AFIB, history of VT, and chronic systolic heart failure (refused ICD in the past) was brought in for seizure-like activity found to have elevated troponin for which Cardiology has been consulted Troponin elevation -is likely demand related Coronary artery disease status post CABG -continue aspirin 81 mg p.o. daily and atorvastatin Ventricular tachycardia -for reasons unknown to me and the patient, he has not been on amiodarone for quite some time now -given his reduced systolic function as well as history of VT along with history left ventricular aneurysmectomy, I discussed with him again the utility of ICD which he will consider -we will place an outpatient EP referral for him Chronic systolic heart failure -appears mildly volume overloaded -would resume his home dose Lasix -continue metoprolol and resume his home dose spironolactone -is blood pressure and renal function tolerates, would add losartan 25 mg p.o. daily Paroxysmal atrial fibrillation -continue Eliquis History of Present Illness History of Present Illness Consult date/time: 05/28/25 17:15 Requesting physician: Esperanza Hutton DO Consult reason: Other Reason For Visit: Urinary Tract Infection/Seizure Like Activites Narrative: 64-year-old man with coronary artery disease status post CABG (YOUSSEF-OM1, Radial- OM2, [id number] with left ventricular aneurysmectomy complicated by VF arrest and ischemic stroke; LAD known to be occluded), post op AFIB, history of VT, and chronic systolic heart failure (refused ICD in the past) was brought in for seizure-like activity found to have elevated troponin for which Cardiology has been consulted. He was at the shelter when he was working with physical therapy at which point he felt extremely weak on his right side and was having shortness of breath exerting himself when he needed to sit down. While sitting down he would be leaning towards the left side at which point he eventually loss consciousness and had a witness event of seizures. He has been having some shortness of breath with physical activity however it seemed to be improving now. He had some chest discomfort as well however he contributed to recent cough with production of brown mucus consents that and his chest discomfort has been resolved. 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 spastic hemiplegia Ventricular tachycardia Cerebrovascular accident Pulmonary hypertension Severe pulmonary hypertension with RVSP of 81 non echo December 2023 Chronic kidney disease, stage 3 Seizure disorder With epileptiform discharges from the left anterior temporal region on EKG December 2022 consistent with history of focal seizures Glaucoma Depression 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 Gout Hypothyroidism Chronic anemia (01/2019) Post CABG right parietal infarction resultant hemiplegia. Benign prostatic hyperplasia Hyperlipidemia Hypertension Ischemic cardiomyopathy EF was 20 to 25% and May 2023. Coronary artery disease Status post three-vessel bypass and left ventricular aneurysm repair in February 2019 at [facility]. Combined systolic and diastolic congestive heart failure EF 20-25% on echocardiogram December 2023 with grade 2 diastolic dysfunction, severe pulmonary hypertension with RVSP of 81, moderate aortic stenosis with peak velocity of to 4 mean gradient of 9 valve area 1.4 consistent with low- flow low gradient aortic stenosis RLS (restless legs syndrome) Surgical History Surgical History History of cardiac catheterization History of fusion of cervical spine History of coronary artery bypass graft (~02/2019) Three-vessel bypass and surgical repair of left ventricular aneurysm at [facility]. Family History Family History Mother Patient's mother is Hypertension Father Malignant neoplasm of prostate Patient's father is Sibling Lung cancer Sibling Heart attack Social History Social History Social History: He reports that he has not been home since approximately 2019 due to difficulties with mobility he has had to stay in the shelter since then. 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 Code status: Full code. Smoking packs per day: 1.5 Smoking cigarettes per day: 30.0 Years smoked: 30 Smoking pack-years: 45.00 Smoking status: Former smoker Second hand tobacco smoke exposure: No Alcohol intake: former Substance use: never Substance use type: does not use Do You Feel Safe in your Home?: Yes Lack of Transportation: No Lack of Food: Never True Current Housing: I Have Housing Concerned About Future Housing: No Difficulty Paying Gas/Electric Bills: No Difficulty Paying for Meds: No Currently Unemployed: No Education: High School Diploma/GED Difficulty w/ Childcare or Family Care: No Living arrangements: shelter Additional living arrangements comments: . He has resided at [facility] since 2019. 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 Spiritual care concerns: No Meds Home Medications and Allergies Home Medications ?Medication ?Instructions ?Recorded ?Confirmed ?Type aspirin 81 mg tablet,delayed 81 mg PO DAILY 03/30/21 05/27/25 History release atorvastatin 40 mg tablet 40 mg PO HS high cholesterol 03/30/21 05/27/25 History levothyroxine 137 mcg tablet 137 mcg PO QAM hypothyroidism 03/30/21 05/27/25 History tamsulosin 0.4 mg capsule 0.8 mg PO HS benign prostatic 03/30/21 05/27/25 History hyperplasia baclofen 5 mg tablet 10 mg PO TID 06/09/22 05/27/25 History empagliflozin 25 mg tablet 25 mg PO DAILY type 2 diabetes 06/09/22 05/27/25 History (Jardiance) ipratropium 0.5 mg-albuterol 3 mg 3 ml inhalation Q6H PRN Shortness 06/09/22 05/28/25 History (2.5 mg base)/3 mL nebulization Of Breath soln latanoprost 0.005 % eye drops 1 drp EACH EYE HS glaucoma 06/09/22 05/27/25 History brimonidine 0.2 % eye drops 1 drp EACH EYE BID glaucoma 12/29/22 05/27/25 History diclofenac sodium 1 % topical gel 1 ea topical BID 12/29/22 05/27/25 History acetaminophen 500 mg tablet 1,000 mg PO Q8H PRN Pain (Scale 03/06/23 05/27/25 History (Acetaminophen Extra Strength) Score 4-6) azelastine 137 mcg (0.1 %) nasal 1 spray intranasal Q12H allergic 03/06/23 05/27/25 History spray rhinitis magnesium oxide 400 mg (241.3 mg 400 mg PO DAILY hypomagnesemia 03/06/23 05/27/25 History magnesium) tablet glucagon 1 mg injection kit 1 mg subcut PRN PRN Hypoglycemia 04/17/23 05/27/25 History insulin lispro 100 unit/mL 3 unit subcut AC 04/17/23 05/27/25 History subcutaneous pen (Humalog KwikPen (U-100) Insulin) omeprazole 20 mg capsule,delayed 20 mg PO DAILY 04/17/23 05/27/25 History release miconazole nitrate 2 % topical 1 applic topical HS 06/14/23 05/27/25 History cream bisacodyl 10 mg rectal suppository 10 mg RECTAL DAILY PRN Constipation 01/02/24 05/27/25 History insulin lispro 100 unit/mL 1 sliding scale dose subcut 01/02/24 05/27/25 History subcutaneous pen (Humalog KwikPen USEASDIRECTD (U-100) Insulin) magnesium hydroxide 400 mg/5 mL 30 ml PO HS PRN Constipation 01/02/24 05/27/25 History oral suspension (Milk of Magnesia) polyethylene glycol 3350 17 gram 17 g PO DAILY PRN Constipation 01/02/24 05/27/25 History oral powder packet triamcinolone acetonide 0.1 % 1 applic topical BID PRN 01/07/24 05/27/25 Rx topical cream dermatitis #15 grams potassium chloride 10 mEq 10 meq PO DAILY 02/11/24 05/27/25 History tablet,extended release loperamide 2 mg capsule 2 mg PO Q12H PRN Diarrhea 03/13/24 05/27/25 History melatonin 5 mg tablet 5 mg PO HS 08/17/24 05/27/25 History multivitamin (Multiple Vitamins 1 tablet PO DAILY 08/17/24 05/27/25 History tablet) sodium phosphates 19 gram-7 118 ml RECTAL USEASDIRECTD PRN 08/17/24 05/27/25 History gram/118 mL enema (Fleet Enema) Constipation insulin glargine 100 unit/mL (3 12 unit subcut HS 09/22/24 05/27/25 History mL) subcutaneous pen (Lantus Solostar U-100 Insulin) lorazepam 2 mg/mL injection 0.5 mg IM Q4H PRN Seizures 09/22/24 05/27/25 History solution magnesium citrate (Citroma oral 296 ml PO DAILY PRN Constipation 09/22/24 05/27/25 History solution) allopurinol 100 mg tablet 100 mg PO DAILY 02/18/25 05/27/25 History levetiracetam 500 mg tablet 1,500 mg (3 x 500 mg) PO Q12HR #84 02/18/25 05/27/25 Rx (Keppra) tabs pregabalin 75 mg capsule 150 mg PO BID 02/18/25 05/27/25 History primidone 50 mg tablet 100 mg PO BID 02/18/25 05/27/25 History spironolactone 25 mg tablet 25 mg PO DAILY 02/18/25 05/27/25 History albuterol sulfate 90 mcg/actuation 2 inh inhalation Q4H PRN shortness 05/27/25 05/27/25 History aerosol inhaler (Ventolin HFA) of breath or wheezing apixaban 5 mg tablet (Eliquis) 5 mg PO Q12H 05/27/25 05/27/25 History artificial tears solution eye drops 1 drp ophthalmic (eye) BID 05/27/25 05/27/25 History bimatoprost 0.03 % eye drops 1 drp EACH EYE QPM 05/27/25 05/27/25 History cranberry fruit 450 mg tablet 450 mg PO BID 05/27/25 05/27/25 History (cranberry) duloxetine 20 mg capsule,delayed 40 mg PO DAILY 05/27/25 05/27/25 History release sprinkle (Drizalma Sprinkle) ferrous sulfate 325 mg (65 mg 325 mg PO DAILY 05/27/25 05/27/25 History iron) tablet,delayed release furosemide 40 mg tablet 80 mg PO BID 05/27/25 05/27/25 History guaifenesin 600 mg tablet, 600 mg PO Q12H PRN congestion 05/27/25 05/27/25 History extended release 12 hr metoprolol succinate 50 mg 50 mg PO DAILY 05/27/25 05/27/25 History tablet,extended release 24 hr midazolam 5 mg/spray (0.1 mL) 5 mg intranasal ONCE PRN seizure 05/27/25 05/27/25 History nasal spray activity pentoxifylline 400 mg 400 mg PO Q12H 05/27/25 05/27/25 History tablet,extended release tirzepatide 5 mg/0.5 mL 5 mg subcut WEEKLY 05/27/25 05/27/25 History subcutaneous pen injector (Jose) Allergies Allergy/AdvReac Type Severity Reaction Status Date / Time No Known Allergies Allergy Unknown Verified 05/27/25 14:44 Vital Signs Vital Signs - 24 hr 05/27/25 17:27 05/27/25 19:04 05/27/25 20:01 Temperature 36.7 C Pulse Rate 77 80 76 Respiratory Rate 24 H 19 15 Blood Pressure 105/79 120/78 132/78 Pulse Oximetry 96 94 93 Oxygen Delivery 05/27/25 21:20 05/28/25 00:00 05/28/25 05:50 Temperature 36.5 C 36.8 C Pulse Rate 76 74 70 Respiratory Rate 15 18 18 Blood Pressure 132/78 135/75 139/74 Pulse Oximetry 93 98 91 Oxygen Delivery 05/28/25 08:38 05/28/25 08:51 05/28/25 08:53 Temperature Pulse Rate 78 79 Respiratory Rate 20 Blood Pressure Pulse Oximetry 93 Oxygen Delivery Room Air Room Air 05/28/25 10:00 05/28/25 10:07 05/28/25 12:05 Temperature 36.7 C 36.7 C Pulse Rate 71 54 L 74 Respiratory Rate 14 14 Blood Pressure 112/65 103/68 Pulse Oximetry 91 89 L Oxygen Delivery 05/28/25 14:00 05/28/25 15:31 Temperature 36.9 C Pulse Rate 70 91 Respiratory Rate 16 18 Blood Pressure 126/68 127/77 Pulse Oximetry 90 96 Oxygen Delivery Exam 2 Const: General: comfortable HENMT: Mouth: Yes moist mucous membranes Eyes: EOM: EOMs intact bilaterally Neck: Neck: no JVD Resp: Effort & Inspection: normal respiratory effort Auscultation: rales Cardio: Rate: regular rate Rhythm: regular rhythm : Other: Urine is cloudy Extrem: General: no pedal edema Results Labs and Meds 05/28/25 06:07 05/28/25 06:07 Lab results: Cardiac Enzymes 05/28/25 05/28/25 Range/Units 10:47 14:21 Troponin I 2.210 H* 2.080 H* (0.000-0.034) ng/mL CBC 05/28/25 Range/Units 06:07 WBC 8.7 (4.5-10.0) K/mm3 RBC 4.40 L (4.6-6.20) M/mm3 Hgb 13.9 L (14.0-18.0) g/dL Hct 42.9 (42.0-52.0) % Plt Count 113 L (150-375) k/mm3 Comprehensive Metabolic Panel 05/28/25 Range/Units 06:07 Sodium 136 L (137-145) mmol/L Potassium 4.1 (3.4-5.0) mmol/L Chloride 100 (98-107) mmol/L Carbon Dioxide 28 (22-30) mmol/L BUN 36 H (9-20) mg/dL Creatinine 1.25 (0.7-1.3) mg/dL Glucose 192 H (65-110) mg/dL Calcium 8.5 (8.4-10.2) mg/dL Intake and Output 05/28/25 05/28/25 05/28/25 07:59 15:59 23:59 Intake Total 650 1110 480 Output Total 1000 1250 Balance -350 1110 -770 Intake: IV 750 Sodium Chloride 0.9% IV 1,000 750 ml @ 100 mls/hr IV CONT .Q10H JERRY Rx#:[id number] Oral 650 360 480 Output: Urine 1000 Catheter Urine 1250 External/Condom 1250 Other: # Incontinent Voids 1 Number of Bowel Movements Today 1
--- NOTE | 2025-05-28 17:42 | P.CONNEU_ITS ---
Assessment and Plan Assessment and plan (1) Seizure disorder: Code(s): G40.909 - Epilepsy, unspecified, not intractable, without status epilepticus Status: Acute (2) Cerebrovascular accident (CVA) with left hemiparesis: Status: Acute (3) Ischemic cardiomyopathy: Code(s): I25.5 - Ischemic cardiomyopathy Status: Chronic (4) Insulin dependent diabetes mellitus: Status: Chronic Plan The patient is on Keppra 1500 mg twice a day. I will suggest to increase the dose of Lyrica to 200 mg twice a day and Keppra to 2000 mg twice a day in view of the recurrent spells of seizures. which will continue the Mysoline at 200 mg a day in view of interaction between primidone and Eliquis. Lyrica is anticonvulsant being used for peripheral neuropathy. Patient is also on Eliquis on a chronic basis. He has numerous medical problems including ischemic cardiomyopathy and diabetes mellitus and has a possible cardiac arrhythmias or fluctuations in blood glucose need be borne in mind . I spoke to the nursing staff about it and they can watch for that. He is already on cardiac monitoring. From cerebrovascular disease point of view he is on atorvastatin 40 mg a day and aspirin 81 mg a day in addition is also on Eliquis 5 mg twice a day. A carotid Doppler study performed on 08/18/2024 has shown less than 50% narrowing in both internal carotid arteries. Previous CT scan and MRIs have shown large area of encephalomalacia in the distribution of right middle cerebral artery. I reviewed the films and agree with the findings. Consult date: 05/28/25 HPI: Bayron Ann is a 64 year old male with history of CVA with left hemiparesis and insulin-dependent diabetes mellitus resident of a nursing facility was brought to the emergency room on account of having 2 seizure-like spells. He did not have any tongue biting or incontinence of urine. The patient was the opinion that he did not think he had a seizure. He thinks he passed out. He has seen me in neurology office on February 18, 2025. Patient also has history of cardiac disease and has had coronary above artery bypass grafting. He had a stroke in January of 2019 left him with the weakness in the left side of the body. Patient also history of severe pulmonary hypertension and combined systolic and diastolic heart failure. Patient has been wheelchair- bound apparently slumped over on the left side. According to the history the patient has had a myocardial infarction in January of 2019 and was taken to [facility] and was found to have severe three-vessel disease. Stroke occurred after that. He also ischemic cardiomyopathy with ejection fraction of 20-25% in May 2023. He is doing Keppra 1500 mg twice a day however he is also on Lyrica 150 mg twice a day for diabetic neuropathy and primidone 200 mg at bedtime. He has had seizures on several occasions 2023. According to the records he was 6 or 7 seizures last year. I am not entirely sure why primidone was chosen however since he was on Lyrica and primidone which were also anticonvulsant the dose of these have been adjusted over the time. Patient seems to tolerating them well. Review of Systems 2 Review of Systems: All systems reviewed & are unremarkable except as noted in HPI and below [facility] Past Medical History Medical History (Updated 05/28/25 @ 13:14 by BRENNA Morris) Atrial fibrillation 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 spastic hemiplegia Ventricular tachycardia Cerebrovascular accident Pulmonary hypertension Severe pulmonary hypertension with RVSP of 81 non echo December 2023 Chronic kidney disease, stage 3 Seizure disorder With epileptiform discharges from the left anterior temporal region on EKG December 2022 consistent with history of focal seizures Glaucoma Depression 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 Gout Hypothyroidism Chronic anemia (01/2019) Post CABG right parietal infarction resultant hemiplegia. Benign prostatic hyperplasia Hyperlipidemia Hypertension Ischemic cardiomyopathy EF was 20 to 25% and May 2023. Coronary artery disease Status post three-vessel bypass and left ventricular aneurysm repair in February 2019 at [facility]. Combined systolic and diastolic congestive heart failure EF 20-25% on echocardiogram December 2023 with grade 2 diastolic dysfunction, severe pulmonary hypertension with RVSP of 81, moderate aortic stenosis with peak velocity of to 4 mean gradient of 9 valve area 1.4 consistent with low- flow low gradient aortic stenosis RLS (restless legs syndrome) Surgical History Surgical History History of cardiac catheterization History of fusion of cervical spine History of coronary artery bypass graft (~02/2019) Three-vessel bypass and surgical repair of left ventricular aneurysm at [facility]. Family History Family History Mother Patient's mother is Hypertension Father Malignant neoplasm of prostate Patient's father is Sibling Lung cancer Sibling Heart attack Social History Social History Social History: He reports that he has not been home since approximately 2019 due to difficulties with mobility he has had to stay in the shelter since then. 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 Healthcare power of regulatory attorney: Blanquita Ann, . Code status: Full code. Smoking packs per day: 1.5 Smoking cigarettes per day: 30.0 Years smoked: 30 Smoking pack-years: 45.00 Smoking status: Former smoker Second hand tobacco smoke exposure: No Alcohol intake: former Substance use: never Substance use type: does not use Do You Feel Safe in your Home?: Yes Lack of Transportation: No Lack of Food: Never True Current Housing: I Have Housing Concerned About Future Housing: No Difficulty Paying Gas/Electric Bills: No Difficulty Paying for Meds: No Currently Unemployed: No Education: High School Diploma/GED Difficulty w/ Childcare or Family Care: No Living arrangements: shelter Additional living arrangements comments: . He has resided at [facility] since 2019. 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 Spiritual care concerns: No Meds Home Medications and Allergies Home Medications ?Medication ?Instructions ?Recorded ?Confirmed ?Type aspirin 81 mg tablet,delayed 81 mg PO DAILY 03/30/21 05/27/25 History release atorvastatin 40 mg tablet 40 mg PO HS high cholesterol 03/30/21 05/27/25 History levothyroxine 137 mcg tablet 137 mcg PO QAM hypothyroidism 03/30/21 05/27/25 History tamsulosin 0.4 mg capsule 0.8 mg PO HS benign prostatic 03/30/21 05/27/25 History hyperplasia baclofen 5 mg tablet 10 mg PO TID 06/09/22 05/27/25 History empagliflozin 25 mg tablet 25 mg PO DAILY type 2 diabetes 06/09/22 05/27/25 History (Jardiance) ipratropium 0.5 mg-albuterol 3 mg 3 ml inhalation Q6H PRN Shortness 06/09/22 05/28/25 History (2.5 mg base)/3 mL nebulization Of Breath soln latanoprost 0.005 % eye drops 1 drp EACH EYE HS glaucoma 06/09/22 05/27/25 History brimonidine 0.2 % eye drops 1 drp EACH EYE BID glaucoma 12/29/22 05/27/25 History diclofenac sodium 1 % topical gel 1 ea topical BID 12/29/22 05/27/25 History acetaminophen 500 mg tablet 1,000 mg PO Q8H PRN Pain (Scale 03/06/23 05/27/25 History (Acetaminophen Extra Strength) Score 4-6) azelastine 137 mcg (0.1 %) nasal 1 spray intranasal Q12H allergic 03/06/23 05/27/25 History spray rhinitis magnesium oxide 400 mg (241.3 mg 400 mg PO DAILY hypomagnesemia 03/06/23 05/27/25 History magnesium) tablet glucagon 1 mg injection kit 1 mg subcut PRN PRN Hypoglycemia 04/17/23 05/27/25 History insulin lispro 100 unit/mL 3 unit subcut AC 04/17/23 05/27/25 History subcutaneous pen (Humalog KwikPen (U-100) Insulin) omeprazole 20 mg capsule,delayed 20 mg PO DAILY 04/17/23 05/27/25 History release miconazole nitrate 2 % topical 1 applic topical HS 06/14/23 05/27/25 History cream bisacodyl 10 mg rectal suppository 10 mg RECTAL DAILY PRN Constipation 01/02/24 05/27/25 History insulin lispro 100 unit/mL 1 sliding scale dose subcut 01/02/24 05/27/25 History subcutaneous pen (Humalog KwikPen USEASDIRECTD (U-100) Insulin) magnesium hydroxide 400 mg/5 mL 30 ml PO HS PRN Constipation 01/02/24 05/27/25 History oral suspension (Milk of Magnesia) polyethylene glycol 3350 17 gram 17 g PO DAILY PRN Constipation 01/02/24 05/27/25 History oral powder packet triamcinolone acetonide 0.1 % 1 applic topical BID PRN 01/07/24 05/27/25 Rx topical cream dermatitis #15 grams potassium chloride 10 mEq 10 meq PO DAILY 02/11/24 05/27/25 History tablet,extended release loperamide 2 mg capsule 2 mg PO Q12H PRN Diarrhea 03/13/24 05/27/25 History melatonin 5 mg tablet 5 mg PO HS 08/17/24 05/27/25 History multivitamin (Multiple Vitamins 1 tablet PO DAILY 08/17/24 05/27/25 History tablet) sodium phosphates 19 gram-7 118 ml RECTAL USEASDIRECTD PRN 08/17/24 05/27/25 History gram/118 mL enema (Fleet Enema) Constipation insulin glargine 100 unit/mL (3 12 unit subcut HS 09/22/24 05/27/25 History mL) subcutaneous pen (Lantus Solostar U-100 Insulin) lorazepam 2 mg/mL injection 0.5 mg IM Q4H PRN Seizures 09/22/24 05/27/25 History solution magnesium citrate (Citroma oral 296 ml PO DAILY PRN Constipation 09/22/24 05/27/25 History solution) allopurinol 100 mg tablet 100 mg PO DAILY 02/18/25 05/27/25 History levetiracetam 500 mg tablet 1,500 mg (3 x 500 mg) PO Q12HR #84 02/18/25 05/27/25 Rx (Keppra) tabs pregabalin 75 mg capsule 150 mg PO BID 02/18/25 05/27/25 History primidone 50 mg tablet 100 mg PO BID 02/18/25 05/27/25 History spironolactone 25 mg tablet 25 mg PO DAILY 02/18/25 05/27/25 History albuterol sulfate 90 mcg/actuation 2 inh inhalation Q4H PRN shortness 05/27/25 05/27/25 History aerosol inhaler (Ventolin HFA) of breath or wheezing apixaban 5 mg tablet (Eliquis) 5 mg PO Q12H 05/27/25 05/27/25 History artificial tears solution eye drops 1 drp ophthalmic (eye) BID 05/27/25 05/27/25 History bimatoprost 0.03 % eye drops 1 drp EACH EYE QPM 05/27/25 05/27/25 History cranberry fruit 450 mg tablet 450 mg PO BID 05/27/25 05/27/25 History (cranberry) duloxetine 20 mg capsule,delayed 40 mg PO DAILY 05/27/25 05/27/25 History release sprinkle (Drizalma Sprinkle) ferrous sulfate 325 mg (65 mg 325 mg PO DAILY 05/27/25 05/27/25 History iron) tablet,delayed release furosemide 40 mg tablet 80 mg PO BID 05/27/25 05/27/25 History guaifenesin 600 mg tablet, 600 mg PO Q12H PRN congestion 05/27/25 05/27/25 History extended release 12 hr metoprolol succinate 50 mg 50 mg PO DAILY 05/27/25 05/27/25 History tablet,extended release 24 hr midazolam 5 mg/spray (0.1 mL) 5 mg intranasal ONCE PRN seizure 05/27/25 05/27/25 History nasal spray activity pentoxifylline 400 mg 400 mg PO Q12H 05/27/25 05/27/25 History tablet,extended release tirzepatide 5 mg/0.5 mL 5 mg subcut WEEKLY 05/27/25 05/27/25 History subcutaneous pen injector (Jose) Allergies Allergy/AdvReac Type Severity Reaction Status Date / Time No Known Allergies Allergy Unknown Verified 05/27/25 14:44 Vital Signs Vital Signs - 24 hr 05/27/25 19:04 05/27/25 20:01 05/27/25 21:20 Temperature 98.0 F Pulse Rate 80 76 76 Respiratory Rate 19 15 15 Blood Pressure 120/78 132/78 132/78 Pulse Oximetry 94 93 93 Oxygen Delivery 05/28/25 00:00 05/28/25 05:50 05/28/25 08:38 Temperature 97.7 F 98.3 F Pulse Rate 74 70 78 Respiratory Rate 18 18 Blood Pressure 135/75 139/74 Pulse Oximetry 98 91 Oxygen Delivery 05/28/25 08:51 05/28/25 08:53 05/28/25 10:00 Temperature 98.1 F Pulse Rate 79 71 Respiratory Rate 20 14 Blood Pressure 112/65 Pulse Oximetry 93 91 Oxygen Delivery Room Air Room Air 05/28/25 10:07 05/28/25 12:05 05/28/25 14:00 Temperature 98.1 F 98.4 F Pulse Rate 54 L 74 70 Respiratory Rate 14 16 Blood Pressure 103/68 126/68 Pulse Oximetry 89 L 90 Oxygen Delivery 05/28/25 15:31 Temperature Pulse Rate 91 Respiratory Rate 18 Blood Pressure 127/77 Pulse Oximetry 96 Oxygen Delivery Exam 2 Narrative: Fully conscious alert oriented to self time place and person. No aphasia or dysarthria. Patient is cooperative. Examination head and neck shows no evidence of external trauma. No carotid bruit. Heart sounds were normal. Motor system power grade 3 to 4/5 in the left upper and lower limb. Deep tendon reflexes were generally decreased on both sides without any significant asymmetry. Sensory examination was unremarkable. Left upper limb power grade was 4/5 for the lower limb was 3/5 no involuntary movements are seen. No cogwheeling was noted. Results Labs 05/28/25 06:07 05/28/25 06:07 Labs: Short CBC 05/28/25 Range/Units 06:07 WBC 8.7 (4.5-10.0) K/mm3 Hgb 13.9 L (14.0-18.0) g/dL Hct 42.9 (42.0-52.0) % Plt Count 113 L (150-375) k/mm3 BMP 05/28/25 06:07 Sodium 136 L Potassium 4.1 Chloride 100 Carbon Dioxide 28 BUN 36 H Creatinine 1.25 Glucose 192 H Calcium 8.5 Cardiac Enzymes 05/28/25 05/28/25 Range/Units 10:47 14:21 Troponin I 2.210 H* 2.080 H* (0.000-0.034) ng/mL
[2025-05-28] MEDS: cefTRIAXone 1 GM in SODIUM CHLORIDE 0.9% IV 50 ML 100 ML IVPB (18:05)
[2025-05-28 18:51] LABS: Troponin I 1.760 ng/mL (0.000-0.034)
[2025-05-28] MEDS: PREGABALIN (*CRX) 50 MG CAPSULE 200 MG PO (21:46)
[2025-05-28] MEDS: MELATONIN 5 MG TABLET PO (21:46)
[2025-05-28] MEDS: TAMSULOSIN HCL 0.4 MG CAPSULE 0.8 MG PO (21:46)
[2025-05-28] MEDS: ATORVASTATIN 40 MG TABLET PO (21:47)
[2025-05-28] MEDS: LATANOPROST 0.005% OP SOLN 2.5 ML BTL 1 DROP EACH EYE (21:49)
[2025-05-28] MEDS: DICLOFENAC SODIUM 1% 100 GM GEL (*BKC) 1 APPLIC TOPICAL (21:54)
[2025-05-29] VITALS (10 sets, daily range): BP systolic 118–163; BP diastolic 70–82; PULSE 60–83; RESP 16–18; TEMP 36.6–36.8; O2SAT 92–95
[2025-05-29] MEDS: LEVOTHYROXINE SODIUM 25 MCG TABLET PO (05:56)
[2025-05-29] MEDS: LEVOTHYROXINE SODIUM 112 MCG TABLET PO (05:56)
[2025-05-29 06:38] LABS: Hematocrit 42.5 % (42.0-52.0); Hemoglobin 13.6 g/dL (14.0-18.0); Immature Platelet Fraction Pct 4.2 % (0.9-11.2); Mean Corpuscular HGB Conc 32.0 g/dl (32-36); Mean Corpuscular Hemoglobin 31.3 pg (26-34); Mean Corpuscular Volume 97.7 fl (80-100); Platelet Count Result 111 k/mm3 (150-375); Red Blood Count 4.35 M/mm3 (4.6-6.20); White Blood Count 8.2 K/mm3 (4.5-10.0)
[2025-05-29 07:35] LABS: Anion Gap 9 mmol/L (4-12); Blood Urea Nitrogen 32 mg/dL (9-20); Calcium 8.5 mg/dL (8.4-10.2); Carbon Dioxide 25 mmol/L (22-30); Chloride 103 mmol/L (98-107); Estimated CRCL calculation 68 ml/min; Estimated Glomerular Filt Rate > 60; Glucose 199 mg/dL (65-110); Magnesium 2.3 mg/dL (1.6-2.3); Potassium 4.4 mmol/L (3.4-5.0); Sodium 137 mmol/L (137-145)
[2025-05-29 07:37] LABS: Thyroid Stimulating Hormone Reflex 0.617 uIU/mL (0.465-4.68)
--- NOTE | 2025-05-29 07:37 | P.PNIM_ITS ---
Progress Note: A&P Assessment and Plan (1) Observed seizure-like activity: Code(s): R56.9 - Unspecified convulsions Status: Acute Assessment and Plan: -with history of epilepsy on Keppra 1500 mg BID - last saw neurology 02/18/25 (Dr. Carlin) with concern for seizure-like activity - received Keppra load in ED -neurology consulted, recommended to increase Keppra to 2000 mg daily and increase Lyrica to 200 mg daily. Continue Mysoline 200 mg daily. - no further seizure activity witnessed here - seizure precautions (2) Pre-syncope: Code(s): R55 - Syncope and collapse Status: Acute Assessment and Plan: - patient reported feeling lightheaded and SOB while working with therapy and was found slumped over. Unclear if he lost consciousness or if true seizure- like activity was witnessed. - has prior history of VT per cardio notes. - echo 05/28/25 showed EF 15-20%, reduced RV systolic function, severely dilated left atrium, moderate aortic stenosis and severe pulmonary hypertension - check orthostatics. Monitor on telemetry - cardio following. (3) Elevated troponin: Code(s): R79.89 - Other specified abnormal findings of blood chemistry Status: Acute Assessment and Plan: - troponin I 2.21, 2.08, 1.76 - denied chest pain, but reported near syncope and increased dyspnea. - EKG with new TWI in V1, V2 - cardio consulted, suspect demand ischemia. No intervention planned. (4) Combined systolic and diastolic congestive heart failure: Code(s): I50.40 - Unspecified combined systolic (congestive) and diastolic (congestive) heart failure Status: Acute Assessment and Plan: - echo with EF 15-20% - appears euvolemic - continue home lasix, Jardiance, metoprolol, aldactone - start losartan per cardio recs (5) Gouty olecranon bursitis of left elbow: Code(s): M10.9 - Gout, unspecified Status: Acute Assessment and Plan: -patient has a large area of swelling to the left olecranon. Reported that he is supposed to get an outpatient follow-up for draining of the bursitis. He reports that the areas getting is more sore when he tries to lean against support equipment to try to stand up or the knee against a wheelchair. - Unfortunately will not be able to arrange for inpatient aspiration as patient has been receiving Eliquis. Encourage outpatient follow-up. (6) Ventricular tachycardia: Code(s): I47.20 - Ventricular tachycardia, unspecified Status: Chronic Assessment and Plan: - prior history -was previously on amiodarone. - has remained NSR on telemetry - cardio has recommended LifeVest in the past, patient declined. Cardiology has recommended ICD. Discussed with patient he will follow up closely as outpatient. Cardiology to send outpatient EP referral. (7) Abnormal urinalysis: Code(s): R82.90 - Unspecified abnormal findings in urine Status: Acute Assessment and Plan: - UA with cloudy appearance, 1+ blood, 2+ LE, >100 WBC - reported chronic dysuria. Concern for UTI given weakness/fatigue and breakthrough seizure. - continue IV Rocephin, await urine culture. (8) Type 2 diabetes mellitus with hyperglycemia, with long-term current use of insulin: Code(s): E11.65 - Type 2 diabetes mellitus with hyperglycemia; Z79.4 - termination clerk (current) use of insulin Status: Chronic Assessment and Plan: - continue lantus 12 u, lispro 3 u with meals and SSI - POCT glucose qACHS - hypoglycemia management protocol (9) Acute kidney injury superimposed on chronic kidney disease: Code(s): N17.9 - Acute kidney failure, unspecified; N18.9 - Chronic kidney disease, unspecified Status: Acute Assessment and Plan: - admit Cr 1.38, baseline 1.2 - received IV fluids. Will monitor off for now. - Cr stable - avoid nephrotoxins (10) Seizure disorder: Code(s): G40.909 - Epilepsy, unspecified, not intractable, without status epilepticus Status: Acute Assessment and Plan: - continue home Keppra (11) Cerebrovascular accident (CVA) with left hemiparesis: Status: Acute Assessment and Plan: - with chronic L-sided weakness - continue home Eliquis (12) Coronary artery disease: Code(s): I25.10 - Atherosclerotic heart disease of [place] coronary artery without angina pectoris Status: Chronic Assessment and Plan: - s/p CABG in 2019 - continue home ASA, statin (13) Atrial fibrillation: Code(s): I48.91 - Unspecified atrial fibrillation Status: Acute Assessment and Plan: - continue home Eliquis, metoprolol (14) Hypothyroidism: Qualifiers: Hypothyroidism type: unspecified Qualified Code(s): E03.9 - Hypothyroidism, unspecified Code(s): E03.9 - Hypothyroidism, unspecified Status: Chronic Assessment and Plan: - continue Synthroid Subjective Date/time seen: 05/29/25 07:37 Interval history: 64-year-old male with past medical history of seizure disorder, CVA with residual left-sided hemiplegia, combined systolic and diastolic heart failure, grade 2 diastolic dysfunction, severe pulmonary hypertension, essential hypertension, insulin-dependent diabetes mellitus among other comorbidities who presented to the ER from [facility] with reported 2 witnessed seizures by nursing staff. Patient seen and examined at bedside. Feeling okay this AM, no acute complaints. Discussed lab and imaging findings. Patient expressed understanding. Review of Systems Review of Systems: All systems reviewed & are unremarkable except as noted in HPI and below Exam Narrative: General: NAD Eyes: EOMI ENT: neck supple Cardiovascular: Regular rate and rhythm Respiratory: Clear to auscultation, respirations even and unlabored on RA Gastrointestinal: Soft, non tender Genitourinary: no suprapubic tenderness Musculoskeletal: No edema Skin: warm, dry Neuro: Alert. Strength R arm and leg 5/5, chronic left-sided weakness. Face symmetric, speech clear. Psych: Mood appropriate Objective Data Vital Signs Vital Signs: Vital Signs - 24 hr 05/28/25 08:38 05/28/25 08:51 05/28/25 08:53 Temperature Pulse Rate 78 79 Respiratory Rate 20 Blood Pressure Pulse Oximetry 93 Oxygen Delivery Room Air Room Air 05/28/25 10:00 05/28/25 10:07 05/28/25 12:05 Temperature 98.1 F 98.1 F Pulse Rate 71 54 L 74 Respiratory Rate 14 14 Blood Pressure 112/65 103/68 Pulse Oximetry 91 89 L Oxygen Delivery 05/28/25 14:00 05/28/25 15:31 05/28/25 16:04 Temperature 98.4 F Pulse Rate 70 91 74 Respiratory Rate 16 18 Blood Pressure 126/68 127/77 Pulse Oximetry 90 96 Oxygen Delivery 05/28/25 20:00 05/28/25 20:00 05/28/25 21:12 Temperature 98.1 F Pulse Rate 83 79 Respiratory Rate 18 Blood Pressure 148/77 H Pulse Oximetry 92 Oxygen Delivery Room Air 05/29/25 00:00 05/29/25 04:00 05/29/25 05:55 Temperature 97.9 F Pulse Rate 69 69 67 Respiratory Rate 18 Blood Pressure 123/72 Pulse Oximetry 92 Oxygen Delivery Intake/Output Intake/Output: Intake & Output 05/26/25 05/27/25 05/28/25 05/29/25 23:59 23:59 23:59 23:59 Intake Total 150 2480 350 Output Total 2650 1350 Balance 150 -170 -1000 Meds/Results Medications: Active Medications Generic Name Dose Route Start Last Admin Trade Name Freq PRN Reason Stop Dose Admin Acetaminophen 650 mg 05/27/25 18:19 05/28/25 12:28 Acetaminophen 325 Mg Tablet PO 650 mg Q4H PRN Administration Mild Pain (1-3) or Fever Albuterol/Ipratropium 3 ml 05/28/25 01:43 Ipratropium 0.5 Mg/Albuterol Sulfate 2.5 Mg Ampul.Neb 3 Ml INHALATION Q6H PRN Shortness Of Breath Allopurinol 100 mg 05/28/25 08:00 05/28/25 08:38 Allopurinol 100 Mg Tablet PO 100 mg DAILY@0800 JERRY Administration Apixaban 5 mg 05/28/25 09:00 05/28/25 21:46 Apixaban 5 Mg Tablet PO 5 mg Q12HR JERRY Administration Artificial Tears 1 drop 05/28/25 09:00 05/28/25 18:04 Artificial Tears Ophth Soln 15 Ml Bottle EACH EYE 1 drop BID JERRY Administration Aspirin 81 mg 05/28/25 09:00 05/28/25 08:37 Aspirin 81 Mg Enteric Tablet PO 81 mg DAILY JERRY Administration Atorvastatin Calcium 40 mg 05/28/25 21:00 05/28/25 21:47 Atorvastatin 40 Mg Tablet PO 40 mg HS JERRY Administration Azelastine HCl 1 spray 05/28/25 09:00 05/28/25 21:48 Azelastine Hcl Nasal 0.1% 137 Mcg/Spr 30 Ml Btl NASAL 1 spray Q12HR JERRY Administration Baclofen 10 mg 05/28/25 09:00 05/28/25 18:04 Baclofen 10 Mg Tablet PO 10 mg TID JERRY Administration Brimonidine Tartrate 1 drop 05/28/25 09:00 05/28/25 21:49 Brimonidine Tartrate 0.2% Op Soln 5 Ml Btl EACH EYE 1 drop Q12HR JERRY Administration Dextrose 12.5 gm 05/27/25 21:13 Dextrose 50% 25 Gm/50 Ml Syringe IV PUSH PRN PRN Hypoglycemia Protocol Diclofenac Sodium 1 applic 05/28/25 09:44 05/28/25 21:54 Diclofenac Sodium 1% 100 Gm Gel (*Bkc) TOPICAL 1 applic BID PRN Administration joint pain Duloxetine HCl 40 mg 05/28/25 09:00 05/28/25 08:39 Duloxetine Hcl 20 Mg Capsule. PO 40 mg DAILY JERRY Administration Ferrous Sulfate 325 mg 05/28/25 09:00 05/28/25 08:38 Ferrous Sulfate [address] PO 325 mg DAILY JERRY Administration Furosemide 40 mg 05/29/25 09:00 Furosemide 40 Mg Tablet PO BID JERRY Glucagon 1 mg 05/27/25 21:13 Glucagon For Inj 1 Mg Vial IM PRN PRN Hypoglycemia Protocol Glucose 15 gm 05/27/25 21:13 Glucose Oral Gel 15 Gm Of Glucse In 37.5 Gm Tube PO PRN PRN Hypoglycemia Protocol Ceftriaxone Sodium 1 gm/ 50 mls @ 100 mls/hr 05/28/25 18:00 05/28/25 18:05 Sodium Chloride IVPB 05/31/25 18:29 100 mls/hr Q24H JERRY Administration Dextrose 1,000 mls @ 100 mls/hr 05/27/25 21:13 Dextrose 5% 1,000 Ml IVPB PRN PRN Hypoglycemia Protocol Insulin Aspart 1 - 3 units 05/28/25 21:00 05/28/25 21:48 Insulin Aspart (*Bkc) 100 Units/Ml SUB-Q 2 units HS JERRY Administration Protocol Insulin Aspart 3 - 6 units 05/28/25 08:00 05/28/25 18:04 Insulin Aspart (*Bkc) 100 Units/Ml SUB-Q Not Given TIDWM JERRY Protocol Insulin Aspart 3 units 05/28/25 08:00 05/28/25 18:15 Insulin Aspart (*Bkc) 100 Units/Ml SUB-Q 3 units TIDWM JERRY Administration Insulin Glargine 12 units 05/28/25 01:50 05/28/25 21:47 Insulin Glargine (*Bkc) 100 Units/Ml SUB-Q 12 units HS JERRY Administration Latanoprost 1 drop 05/28/25 21:00 05/28/25 21:49 Latanoprost 0.005% Op Soln 2.5 Ml Btl EACH EYE 1 drop HS JERRY Administration Levetiracetam 2,000 mg 05/28/25 21:00 05/28/25 21:47 Levetiracetam 500 Mg Tablet PO 2,000 mg Q12HR JERRY Administration Levothyroxine Sodium 112 mcg 05/28/25 06:30 05/29/25 05:56 Levothyroxine Sodium 112 Mcg Tablet PO 112 mcg DAILY@629 JERRY Administration Levothyroxine Sodium 25 mcg 05/28/25 06:30 05/29/25 05:56 Levothyroxine Sodium 25 Mcg Tablet PO 25 mcg DAILY@30 JERRY Administration Magnesium Hydroxide 30 ml 05/28/25 01:43 Magnesium Hydroxide Susp 30 Ml Udc PO HS PRN Constipation Magnesium Oxide 400 mg 05/28/25 09:00 05/28/25 08:37 Magnesium Oxide 400 Mg Tablet PO 400 mg DAILY JERRY Administration Melatonin 5 mg 05/28/25 21:00 05/28/25 21:46 Melatonin 5 Mg Tablet PO 5 mg HS [facility] Administration Metoprolol Succinate 50 mg 05/28/25 09:00 05/28/25 08:38 Metoprolol Succinate Ext Rel 50 Mg Tabcr PO 50 mg DAILY [facility] Administration Ondansetron HCl 4 mg 05/27/25 18:19 Ondansetron Inj 4 Mg/2 Ml Vial IV PUSH Q4H PRN Nausea Pantoprazole Sodium 40 mg 05/28/25 09:00 05/28/25 08:37 Pantoprazole 40 Mg Tablet PO 40 mg QAM JERRY Administration Pentoxifylline 400 mg 05/28/25 09:00 05/28/25 21:46 Pentoxifylline 400 Mg Tabcr PO 400 mg Q12HR JERRY Administration Potassium Chloride 10 meq 05/28/25 08:00 05/28/25 08:39 Potassium Chloride 10 Meq Er Tablet PO 10 meq DAILY@0800 JERRY Administration Pregabalin 200 mg 05/28/25 21:00 05/28/25 21:46 Pregabalin (*Crx) 50 Mg Capsule PO 200 mg Q12HR JERRY Administration Primidone 100 mg 05/28/25 09:00 05/28/25 18:04 Primidone 50 Mg Tablet PO 100 mg BID JERRY Administration Spironolactone 25 mg 05/29/25 09:00 Spironolactone 25 Mg Tablet PO QAM [facility] Tamsulosin HCl 0.8 mg 05/28/25 21:00 05/28/25 21:46 Tamsulosin Hcl 0.4 Mg Capsule PO 0.8 mg HS JERRY Administration Radiology Results: ITS Impressions Chest X-Ray 05/27/25 16:12 IMPRESSION: Left-sided pleural effusion suspected without focal infiltrate. Labs Labs: Laboratory Results - last 24 hr 05/28/25 05/28/25 05/28/25 08:30 10:47 11:38 WBC RBC Hgb Hct MCV MCH MCHC RDW Plt Count MPV % Immature Plt Fraction Sodium Potassium Chloride Carbon Dioxide Anion Gap BUN Creatinine Estim Creat Clear Calc Estimated GFR Glucose POC Capillary Glucose 188 H 213 H Calcium Magnesium Troponin I 2.210 H* TSH (Reflex) 05/28/25 05/28/25 05/28/25 14:21 16:38 18:12 WBC RBC Hgb Hct MCV MCH MCHC RDW Plt Count MPV % Immature Plt Fraction Sodium Potassium Chloride Carbon Dioxide Anion Gap BUN Creatinine Estim Creat Clear Calc Estimated GFR Glucose POC Capillary Glucose 173 H Calcium Magnesium Troponin I 2.080 H* 1.760 H* TSH (Reflex) 05/28/25 05/29/25 21:17 06:24 WBC 8.2 RBC 4.35 L Hgb 13.6 L Hct 42.5 MCV 97.7 MCH 31.3 MCHC 32.0 RDW 14.4 Plt Count 111 L MPV 11.0 H % Immature Plt Fraction 4.2 Sodium 137 Potassium 4.4 Chloride 103 Carbon Dioxide 25 Anion Gap 9 BUN 32 H Creatinine 1.14 Estim Creat Clear Calc 68 Estimated GFR > 60 Glucose 199 H POC Capillary Glucose 276 H Calcium 8.5 Magnesium 2.3 Troponin I TSH (Reflex) 0.617 Quality VTE Prophylaxis VTE prophylaxis: pharmacologic ordered
[2025-05-29] MEDS: ARTIFICIAL TEARS OPHTH SOLN 15 ML BOTTLE 1 DROP EACH EYE ×2 (08:59→16:48)
[2025-05-29] MEDS: SPIRONOLACTONE 25 MG TABLET PO (09:00)
[2025-05-29] MEDS: POTASSIUM CHLORIDE 10 MEQ ER TABLET PO (09:00)
[2025-05-29] MEDS: PENTOXIFYLLINE 400 MG TABCR PO ×2 (09:00→21:29)
[2025-05-29] MEDS: BACLOFEN 10 MG TABLET PO ×3 (09:00→16:46)
[2025-05-29] MEDS: APIXABAN 5 MG TABLET PO ×2 (09:00→21:28)
[2025-05-29] MEDS: PRIMIDONE 50 MG TABLET 100 MG PO ×2 (09:01→16:46)
[2025-05-29] MEDS: FERROUS SULFATE 325 MG TABLET DR PO (09:01)
[2025-05-29] MEDS: MAGNESIUM OXIDE 400 MG TABLET PO (09:01)
[2025-05-29] MEDS: PANTOPRAZOLE 40 MG TABLET PO (09:01)
[2025-05-29] MEDS: METOPROLOL SUCCINATE EXT REL 50 MG TABCR PO (09:01)
[2025-05-29] MEDS: ASPIRIN 81 MG ENTERIC TABLET PO (09:02)
[2025-05-29] MEDS: PREGABALIN (*CRX) 50 MG CAPSULE 200 MG PO ×2 (09:02→21:29)
[2025-05-29] MEDS: BRIMONIDINE TARTRATE 0.2% OP SOLN 5 ML BTL 1 DROP EACH EYE ×2 (09:04→21:28)
[2025-05-29] MEDS: AZELASTINE HCL NASAL 0.1% 137 MCG/SPR 30 ML BTL 1 SPRAY NASAL ×2 (09:05→21:27)
[2025-05-29] MEDS: INSULIN ASPART (*BKC) 100 UNITS/ML SUB-Q ×5 (09:06→21:30)
[2025-05-29] MEDS: FUROSEMIDE 40 MG TABLET PO ×2 (09:07→16:46)
--- NOTE | 2025-05-29 09:29 | P.PNCA_ITS ---
Progress Note: A&P Assessment and Plan (1) Acute exacerbation of CHF (congestive heart failure): Qualifiers: Heart failure type: unspecified Qualified Code(s): I50.9 - Heart failure, unspecified Code(s): I50.9 - Heart failure, unspecified Status: Acute (2) Ischemic cardiomyopathy: Code(s): I25.5 - Ischemic cardiomyopathy Status: Chronic (3) Coronary artery disease: Code(s): I25.10 - Atherosclerotic heart disease of [place] coronary artery without angina pectoris Status: Chronic (4) Elevated troponin: Code(s): R79.89 - Other specified abnormal findings of blood chemistry Status: Acute Plan 64-year-old man with coronary artery disease status post CABG ([id number], Radial- OM2, [id number] with left ventricular aneurysmectomy complicated by VF arrest and ischemic stroke; LAD known to be occluded), post op AFIB, history of VT, and chronic systolic heart failure (refused ICD in the past) was brought in for seizure-like activity found to have elevated troponin for which Cardiology has been consulted Troponin elevation -is likely demand related Coronary artery disease status post CABG -continue aspirin 81 mg p.o. daily and atorvastatin Ventricular tachycardia -no VT on telemetry thus far. 5 beat run NSVT yesterday afternoon. -for reasons unknown to me and the patient, he has not been on amiodarone for quite some time now -Outpatient EP referral given severe LV systolic dysfunction and history of VT Chronic systolic heart failure -Continue home dose of lasix -continue metoprolol, spironolactone -is blood pressure and renal function tolerates, would add losartan 25 mg p.o. daily Paroxysmal atrial fibrillation -continue Eliquis Cardiology will sign off please call with questions Subjective Date/time seen: 05/29/25 09:29 Interval history: Cardiology follow up visit Date of service 05/29/2025: Feels okay today. No chest pain, shortness of breath Review of Systems Cardiovascular: Cardiovascular: Reports as per HPI Respiratory: Respiratory: Reports as per HPI Exam Const: General: comfortable HENMT: Mouth: Yes moist mucous membranes Eyes: EOM: EOMs intact bilaterally Neck: Neck: no JVD Resp: Effort & Inspection: normal respiratory effort Auscultation: rales Cardio: Rate: regular rate Rhythm: regular rhythm : Other: Urine is cloudy Extrem: General: no pedal edema Objective Data Vital Signs Vital Signs: Vital Signs - 24 hr 05/28/25 10:00 05/28/25 10:07 05/28/25 12:05 Temperature 36.7 C 36.7 C Pulse Rate 71 54 L 74 Respiratory Rate 14 14 Blood Pressure 112/65 103/68 Pulse Oximetry 91 89 L Oxygen Delivery 05/28/25 14:00 05/28/25 15:31 05/28/25 16:04 Temperature 36.9 C Pulse Rate 70 91 74 Respiratory Rate 16 18 Blood Pressure 126/68 127/77 Pulse Oximetry 90 96 Oxygen Delivery 05/28/25 20:00 05/28/25 20:00 05/28/25 21:12 Temperature 36.7 C Pulse Rate 83 79 Respiratory Rate 18 Blood Pressure 148/77 H Pulse Oximetry 92 Oxygen Delivery Room Air 05/29/25 00:00 05/29/25 04:00 05/29/25 05:55 Temperature 36.6 C Pulse Rate 69 69 67 Respiratory Rate 18 Blood Pressure 123/72 Pulse Oximetry 92 Oxygen Delivery 05/29/25 09:01 Temperature Pulse Rate 74 Respiratory Rate Blood Pressure Pulse Oximetry Oxygen Delivery Intake/Output Intake/Output: Intake & Output 05/26/25 05/27/25 05/28/25 05/29/25 23:59 23:59 23:59 23:59 Intake Total 150 2480 1040 Output Total 2650 1350 Balance 150 -170 -310 Meds/Results Medications: Active Medications Generic Name Dose Route Start Last Admin Trade Name Freq PRN Reason Stop Dose Admin Acetaminophen 650 mg 05/27/25 18:19 05/28/25 12:28 Acetaminophen 325 Mg Tablet PO 650 mg Q4H PRN Administration Mild Pain (1-3) or Fever Albuterol/Ipratropium 3 ml 05/28/25 01:43 Ipratropium 0.5 Mg/Albuterol Sulfate 2.5 Mg Ampul.Neb 3 Ml INHALATION Q6H PRN Shortness Of Breath Allopurinol 100 mg 05/28/25 08:00 05/29/25 09:01 Allopurinol 100 Mg Tablet PO 100 mg DAILY@0800 JERRY Administration Apixaban 5 mg 05/28/25 09:00 05/29/25 09:00 Apixaban 5 Mg Tablet PO 5 mg Q12HR JERRY Administration Artificial Tears 1 drop 05/28/25 09:00 05/29/25 08:59 Artificial Tears Ophth Soln 15 Ml Bottle EACH EYE 1 drop BID JERRY Administration Aspirin 81 mg 05/28/25 09:00 05/29/25 09:02 Aspirin 81 Mg Enteric Tablet PO 81 mg DAILY JERRY Administration Atorvastatin Calcium 40 mg 05/28/25 21:00 05/28/25 21:47 Atorvastatin 40 Mg Tablet PO 40 mg HS JERRY Administration Azelastine HCl 1 spray 05/28/25 09:00 05/29/25 09:05 Azelastine Hcl Nasal 0.1% 137 Mcg/Spr 30 Ml Btl NASAL 1 spray Q12HR JERRY Administration Baclofen 10 mg 05/28/25 09:00 05/29/25 09:00 Baclofen 10 Mg Tablet PO 10 mg TID JERRY Administration Brimonidine Tartrate 1 drop 05/28/25 09:00 05/29/25 09:04 Brimonidine Tartrate 0.2% Op Soln 5 Ml Btl EACH EYE 1 drop Q12HR JERRY Administration Dextrose 12.5 gm 05/27/25 21:13 Dextrose 50% 25 Gm/50 Ml Syringe IV PUSH PRN PRN Hypoglycemia Protocol Diclofenac Sodium 1 applic 05/28/25 09:44 05/28/25 21:54 Diclofenac Sodium 1% 100 Gm Gel (*Bkc) TOPICAL 1 applic BID PRN Administration joint pain Duloxetine HCl 40 mg 05/28/25 09:00 05/29/25 09:02 Duloxetine Hcl 20 Mg Capsule.Dr PO 40 mg DAILY JERRY Administration Ferrous Sulfate 325 mg 05/28/25 09:00 05/29/25 09:01 Ferrous Sulfate [address] PO 325 mg DAILY JERRY Administration Furosemide 40 mg 05/29/25 09:00 05/29/25 09:07 Furosemide 40 Mg Tablet PO 40 mg BID JERRY Administration Glucagon 1 mg 05/27/25 21:13 Glucagon For Inj 1 Mg Vial IM PRN PRN Hypoglycemia Protocol Glucose 15 gm 05/27/25 21:13 Glucose Oral Gel 15 Gm Of Glucse In 37.5 Gm Tube PO PRN PRN Hypoglycemia Protocol Ceftriaxone Sodium 1 gm/ 50 mls @ 100 mls/hr 05/28/25 18:00 05/28/25 18:05 Sodium Chloride IVPB 05/31/25 18:29 100 mls/hr Q24H JERRY Administration Dextrose 1,000 mls @ 100 mls/hr 05/27/25 21:13 Dextrose 5% 1,000 Ml IVPB PRN PRN Hypoglycemia Protocol Insulin Aspart 1 - 3 units 05/28/25 21:00 05/28/25 21:48 Insulin Aspart (*Bkc) 100 Units/Ml SUB-Q 2 units HS JERRY Administration Protocol Insulin Aspart 3 - 6 units 05/28/25 08:00 05/29/25 09:06 Insulin Aspart (*Bkc) 100 Units/Ml SUB-Q Not Given TIDWM JERRY Protocol Insulin Aspart 3 units 05/28/25 08:00 05/29/25 09:06 Insulin Aspart (*Bkc) 100 Units/Ml SUB-Q 3 units TIDWM JERRY Administration Insulin Glargine 12 units 05/28/25 01:50 05/28/25 21:47 Insulin Glargine (*Bkc) 100 Units/Ml SUB-Q 12 units HS JERRY Administration Latanoprost 1 drop 05/28/25 21:00 05/28/25 21:49 Latanoprost 0.005% Op Soln 2.5 Ml Btl EACH EYE 1 drop HS JERRY Administration Levetiracetam 2,000 mg 05/28/25 21:00 05/29/25 09:00 Levetiracetam 500 Mg Tablet PO 2,000 mg Q12HR JERRY Administration Levothyroxine Sodium 112 mcg 05/28/25 06:30 05/29/25 05:56 Levothyroxine Sodium 112 Mcg Tablet PO 112 mcg DAILY@0630 JERRY Administration Levothyroxine Sodium 25 mcg 05/28/25 06:30 05/29/25 05:56 Levothyroxine Sodium 25 Mcg Tablet PO 25 mcg DAILY@0630 JERRY Administration Magnesium Hydroxide 30 ml 05/28/25 01:43 Magnesium Hydroxide Susp 30 Ml Udc PO HS PRN Constipation Magnesium Oxide 400 mg 05/28/25 09:00 05/29/25 09:01 Magnesium Oxide 400 Mg Tablet PO 400 mg DAILY JERRY Administration Melatonin 5 mg 05/28/25 21:00 05/28/25 21:46 Melatonin 5 Mg Tablet PO 5 mg HS JERRY Administration Metoprolol Succinate 50 mg 05/28/25 09:00 05/29/25 09:01 Metoprolol Succinate Ext Rel 50 Mg Tabcr PO 50 mg DAILY JERRY Administration Ondansetron HCl 4 mg 05/27/25 18:19 Ondansetron Inj 4 Mg/2 Ml Vial IV PUSH Q4H PRN Nausea Pantoprazole Sodium 40 mg 05/28/25 09:00 05/29/25 09:01 Pantoprazole 40 Mg Tablet PO 40 mg QAM JERRY Administration Pentoxifylline 400 mg 05/28/25 09:00 05/29/25 09:00 Pentoxifylline 400 Mg Tabcr PO 400 mg Q12HR JERRY Administration Potassium Chloride 10 meq 05/28/25 08:00 05/29/25 09:00 Potassium Chloride 10 Meq Er Tablet PO 10 meq DAILY@0800 JERRY Administration Pregabalin 200 mg 05/28/25 21:00 05/29/25 09:02 Pregabalin (*Crx) 50 Mg Capsule PO 200 mg Q12HR JERRY Administration Primidone 100 mg 05/28/25 09:00 05/29/25 09:01 Primidone 50 Mg Tablet PO 100 mg BID JERRY Administration Spironolactone 25 mg 05/29/25 09:00 05/29/25 09:00 Spironolactone 25 Mg Tablet PO 25 mg QAM JERRY Administration Tamsulosin HCl 0.8 mg 05/28/25 21:00 05/28/25 21:46 Tamsulosin Hcl 0.4 Mg Capsule PO 0.8 mg HS JERRY Administration Radiology Results: ITS Impressions Chest X-Ray 05/27/25 16:12 IMPRESSION: Left-sided pleural effusion suspected without focal infiltrate. Labs Labs: Laboratory Results - last 24 hr 05/28/25 05/28/25 05/28/25 10:47 11:38 14:21 WBC RBC Hgb Hct MCV MCH MCHC RDW Plt Count MPV % Immature Plt Fraction Sodium Potassium Chloride Carbon Dioxide Anion Gap BUN Creatinine Estim Creat Clear Calc Estimated GFR Glucose POC Capillary Glucose 213 H Calcium Magnesium Troponin I 2.210 H* 2.080 H* TSH (Reflex) 05/28/25 05/28/25 05/28/25 16:38 18:12 21:17 WBC RBC Hgb Hct MCV MCH MCHC RDW Plt Count MPV % Immature Plt Fraction Sodium Potassium Chloride Carbon Dioxide Anion Gap BUN Creatinine Estim Creat Clear Calc Estimated GFR Glucose POC Capillary Glucose 173 H 276 H Calcium Magnesium Troponin I 1.760 H* TSH (Reflex) 05/29/25 05/29/25 06:24 08:17 WBC 8.2 RBC 4.35 L Hgb 13.6 L Hct 42.5 MCV 97.7 MCH 31.3 MCHC 32.0 RDW 14.4 Plt Count 111 L MPV 11.0 H % Immature Plt Fraction 4.2 Sodium 137 Potassium 4.4 Chloride 103 Carbon Dioxide 25 Anion Gap 9 BUN 32 H Creatinine 1.14 Estim Creat Clear Calc 68 Estimated GFR > 60 Glucose 199 H POC Capillary Glucose 197 H Calcium 8.5 Magnesium 2.3 Troponin I TSH (Reflex) 0.617 Quality VTE Prophylaxis VTE prophylaxis: pharmacologic ordered
[2025-05-29] MEDS: ACETAMINOPHEN 325 MG TABLET 650 MG PO ×2 (16:53→21:36)
[2025-05-29] MEDS: cefTRIAXone 1 GM in SODIUM CHLORIDE 0.9% IV 50 ML 100 ML IVPB (17:00)
[2025-05-29] MEDS: TAMSULOSIN HCL 0.4 MG CAPSULE 0.8 MG PO (21:28)
[2025-05-29] MEDS: LATANOPROST 0.005% OP SOLN 2.5 ML BTL 1 DROP EACH EYE (21:28)
[2025-05-29] MEDS: ATORVASTATIN 40 MG TABLET PO (21:29)
[2025-05-29] MEDS: MELATONIN 5 MG TABLET PO (21:29)
[2025-05-29] MEDS: INSULIN GLARGINE (*BKC) 100 UNITS/ML 12 UNITS SUB-Q (21:30)
[2025-05-30] VITALS (11 sets, daily range): BP systolic 118–133; BP diastolic 61–71; PULSE 60–87; RESP 16–18; TEMP 35.8–36.8; O2SAT 93–96
[2025-05-30 06:17] LABS: Anion Gap 8 mmol/L (4-12); Blood Urea Nitrogen 31 mg/dL (9-20); Calcium 8.7 mg/dL (8.4-10.2); Carbon Dioxide 25 mmol/L (22-30); Chloride 102 mmol/L (98-107); Estimated CRCL calculation 62 ml/min; Estimated Glomerular Filt Rate 58; Glucose 218 mg/dL (65-110); Potassium 4.4 mmol/L (3.4-5.0); Sodium 135 mmol/L (137-145)
[2025-05-30] MEDS: LEVOTHYROXINE SODIUM 25 MCG TABLET PO (06:42)
[2025-05-30] MEDS: LEVOTHYROXINE SODIUM 112 MCG TABLET PO (06:42)
[2025-05-30] MEDS: MAGNESIUM OXIDE 400 MG TABLET PO (08:45)
[2025-05-30] MEDS: POTASSIUM CHLORIDE 10 MEQ ER TABLET PO (08:45)
[2025-05-30] MEDS: APIXABAN 5 MG TABLET PO ×2 (08:45→22:22)
[2025-05-30] MEDS: FERROUS SULFATE 325 MG TABLET DR PO (08:45)
[2025-05-30] MEDS: ASPIRIN 81 MG ENTERIC TABLET PO (08:45)
[2025-05-30] MEDS: PRIMIDONE 50 MG TABLET 100 MG PO ×2 (08:45→17:41)
[2025-05-30] MEDS: LOSARTAN POTASSIUM 25 MG TABLET PO (08:46)
[2025-05-30] MEDS: BACLOFEN 10 MG TABLET PO ×3 (08:46→17:41)
[2025-05-30] MEDS: FUROSEMIDE 40 MG TABLET PO ×2 (08:46→17:41)
[2025-05-30] MEDS: PANTOPRAZOLE 40 MG TABLET PO (08:46)
[2025-05-30] MEDS: METOPROLOL SUCCINATE EXT REL 50 MG TABCR PO (08:46)
[2025-05-30] MEDS: PENTOXIFYLLINE 400 MG TABCR PO ×2 (08:46→22:21)
[2025-05-30] MEDS: SPIRONOLACTONE 25 MG TABLET PO (08:48)
[2025-05-30] MEDS: ARTIFICIAL TEARS OPHTH SOLN 15 ML BOTTLE 1 DROP EACH EYE ×2 (08:49→17:43)
[2025-05-30] MEDS: AZELASTINE HCL NASAL 0.1% 137 MCG/SPR 30 ML BTL 1 SPRAY NASAL ×2 (08:50→22:23)
[2025-05-30] MEDS: BRIMONIDINE TARTRATE 0.2% OP SOLN 5 ML BTL 1 DROP EACH EYE ×2 (08:50→22:24)
[2025-05-30] MEDS: INSULIN ASPART (*BKC) 100 UNITS/ML SUB-Q ×7 (09:06→22:23)
[2025-05-30] MEDS: PREGABALIN (*CRX) 50 MG CAPSULE 200 MG PO ×2 (09:08→22:20)
[2025-05-30] MEDS: ACETAMINOPHEN 325 MG TABLET 650 MG PO (12:47)
--- NOTE | 2025-05-30 13:38 | PM.IMPN ---
Progress Note: A&P Assessment and Plan (1) Observed seizure-like activity: Code(s): R56.9 - Unspecified convulsions Status: Acute Assessment and Plan: -with history of epilepsy on Keppra 1500 mg BID - last saw neurology 02/18/25 (Dr. Carlin) with concern for seizure-like activity - received Keppra load in ED -neurology consulted, recommended to increase Keppra to 2000 mg daily and increase Lyrica to 200 mg daily. Continue Mysoline 200 mg daily. - no further seizure activity witnessed here - seizure precautions (2) Pre-syncope: Code(s): R55 - Syncope and collapse Status: Acute Assessment and Plan: - patient reported feeling lightheaded and SOB while working with therapy and was found slumped over. Unclear if he lost consciousness or if true seizure-like activity was witnessed. - has prior history of VT per cardio notes. - echo 05/28/25 showed EF 15-20%, reduced RV systolic function, severely dilated left atrium, moderate aortic stenosis and severe pulmonary hypertension - check orthostatics. Monitor on telemetry - cardio following. (3) Elevated troponin: Code(s): R79.89 - Other specified abnormal findings of blood chemistry Status: Acute Assessment and Plan: - troponin I 2.21, 2.08, 1.76 - denied chest pain, but reported near syncope and increased dyspnea. - EKG with new TWI in V1, V2 - cardio consulted, suspect demand ischemia. No intervention planned. (4) Combined systolic and diastolic congestive heart failure: Code(s): I50.40 - Unspecified combined systolic (congestive) and diastolic (congestive) heart failure Status: Acute Assessment and Plan: - echo with EF 15-20% - appears euvolemic - continue home lasix, Jardiance, metoprolol, aldactone - start losartan per cardio recs (5) Gouty olecranon bursitis of left elbow: Code(s): M10.9 - Gout, unspecified Status: Acute Assessment and Plan: -patient has a large area of swelling to the left olecranon. Reported that he is supposed to get an outpatient follow-up for draining of the bursitis. He reports that the areas getting is more sore when he tries to lean against support equipment to try to stand up or the knee against a wheelchair. - afebrile, no leukocytosis. Elbow is without erythema, drainage or warmth. No significant tenderness to palpation. Some limited ROM may also be secondary to chronic left-sided weakness. Highly doubt septic joint. - patient is on Eliquis complicating aspiration - plan was for outpatient follow-up, but patient and patient's are now requesting orthopedic consultation - appreciate recommendation (6) Ventricular tachycardia: Code(s): I47.20 - Ventricular tachycardia, unspecified Status: Chronic Assessment and Plan: - prior history -was previously on amiodarone. - has remained NSR on telemetry - cardio has recommended LifeVest in the past, patient declined. Cardiology has recommended ICD. Discussed with patient and patient's and he will follow up closely as outpatient. Cardiology to send outpatient EP referral. (7) Abnormal urinalysis: Code(s): R82.90 - Unspecified abnormal findings in urine Status: Acute Assessment and Plan: - UA with cloudy appearance, 1+ blood, 2+ LE, >100 WBC - reported chronic dysuria. Concern for UTI given weakness/fatigue and breakthrough seizure. - continue IV Rocephin, await urine culture. (8) Type 2 diabetes mellitus with hyperglycemia, with long-term current use of insulin: Code(s): E11.65 - Type 2 diabetes mellitus with hyperglycemia; Z79.4 - continuous churn buttermaker (current) use of insulin Status: Chronic Assessment and Plan: - continue lantus 12 u, lispro 3 u with meals and SSI - POCT glucose qACHS - hypoglycemia management protocol (9) Acute kidney injury superimposed on chronic kidney disease: Code(s): N17.9 - Acute kidney failure, unspecified; N18.9 - Chronic kidney disease, unspecified Status: Acute Assessment and Plan: - admit Cr 1.38, baseline 1.2 - received IV fluids. Will monitor off for now. - Cr stable - avoid nephrotoxins (10) Seizure disorder: Code(s): G40.909 - Epilepsy, unspecified, not intractable, without status epilepticus Status: Acute Assessment and Plan: - continue home Keppra (11) Cerebrovascular accident (CVA) with left hemiparesis: Status: Acute Assessment and Plan: - with chronic L-sided weakness - continue home Eliquis (12) Coronary artery disease: Code(s): I25.10 - Atherosclerotic heart disease of [place] coronary artery without angina pectoris Status: Chronic Assessment and Plan: - s/p CABG in 2019 - continue home ASA, statin (13) Atrial fibrillation: Code(s): I48.91 - Unspecified atrial fibrillation Status: Acute Assessment and Plan: - continue home Eliquis, metoprolol (14) Hypothyroidism: Qualifiers: Hypothyroidism type: unspecified Qualified Code(s): E03.9 - Hypothyroidism, unspecified Code(s): E03.9 - Hypothyroidism, unspecified Status: Chronic Assessment and Plan: - continue Synthroid Subjective Date/time seen: 05/30/25 13:38 Interval history: Patient is a 64 yo male with history of epilepsy, HFrEF, AFib, diabetes and gout who presented to the ER with concern for seizure-like activity. Patient seen and examined at bedside. Denies acute complaints. Discussed plan of care on the phone with who is requesting orthopedic consultation for elbow pain. Plan of care discussed with patient and bedside nurse. Review of Systems Review of Systems: 12 systems were reviewed with pertinent positives and negatives per HPI. Except as documented in the HPI, all other systems were reviewed and are negative. Exam Narrative: General: NAD Eyes: EOMI ENT: neck supple Cardiovascular: Regular rate and rhythm Respiratory: Clear to auscultation, respirations even and unlabored on RA Gastrointestinal: Soft, non tender Genitourinary: no suprapubic tenderness Musculoskeletal: No edema, left olecranon with significant swelling, but no erythema, tenderness or warmth. No drainage. Skin: warm, dry Neuro: Alert. Strength R arm and leg 5/5, chronic left-sided weakness. Face symmetric, speech clear. Psych: Mood appropriate Objective Data Vital Signs Vital Signs: Vital Signs - 24 hr 05/29/25 14:00 05/29/25 16:00 05/29/25 20:00 Temperature 97.9 F Pulse Rate 76 77 83 Respiratory Rate 18 Blood Pressure 118/70 Pulse Oximetry 94 05/29/25 22:40 05/30/25 00:00 05/30/25 04:00 Temperature 98.2 F Pulse Rate 80 75 68 Respiratory Rate 16 Blood Pressure 163/82 H Pulse Oximetry 95 05/30/25 06:00 05/30/25 08:46 Temperature 97.7 F Pulse Rate 87 60 Respiratory Rate 16 Blood Pressure 118/71 Pulse Oximetry 93 Intake/Output Intake/Output: Intake & Output 05/27/25 05/28/25 05/29/25 05/30/25 23:59 23:59 23:59 23:59 Intake Total 150 2530 3486 860 Output Total 2650 3800 1800 Balance 162 -333 -274 -451 Meds/Results Medications: Active Medications Generic Name Dose Route Start Last Admin Trade Name Freq PRN Reason Stop Dose Admin Acetaminophen 650 mg 05/27/25 18:19 05/30/25 12:47 Acetaminophen 325 Mg Tablet PO 650 mg Q4H PRN Administration Mild Pain (1-3) or Fever Albuterol/Ipratropium 3 ml 05/28/25 01:43 Ipratropium 0.5 Mg/Albuterol Sulfate 2.5 Mg Ampul.Neb 3 Ml INHALATION Q6H PRN Shortness Of Breath Allopurinol 100 mg 05/28/25 08:00 05/30/25 08:45 Allopurinol 100 Mg Tablet PO 100 mg DAILY@0800 JERRY Administration Apixaban 5 mg 05/28/25 09:00 05/30/25 08:45 Apixaban 5 Mg Tablet PO 5 mg Q12HR JERRY Administration Artificial Tears 1 drop 05/28/25 09:00 05/30/25 08:49 Artificial Tears Ophth Soln 15 Ml Bottle EACH EYE 1 drop BID JERRY Administration Aspirin 81 mg 05/28/25 09:00 05/30/25 08:45 Aspirin 81 Mg Enteric Tablet PO 81 mg DAILY JERRY Administration Atorvastatin Calcium 40 mg 05/28/25 21:00 05/29/25 21:29 Atorvastatin 40 Mg Tablet PO 40 mg HS JERRY Administration Azelastine HCl 1 spray 05/28/25 09:00 05/30/25 08:50 Azelastine Hcl Nasal 0.1% 137 Mcg/Spr 30 Ml Btl NASAL 1 spray Q12HR JERRY Administration Baclofen 10 mg 05/28/25 09:00 05/30/25 12:38 Baclofen 10 Mg Tablet PO 10 mg TID JERRY Administration Brimonidine Tartrate 1 drop 05/28/25 09:00 05/30/25 08:50 Brimonidine Tartrate 0.2% Op Soln 5 Ml Btl EACH EYE 1 drop Q12HR JERRY Administration Dextrose 12.5 gm 05/27/25 21:13 Dextrose 50% 25 Gm/50 Ml Syringe IV PUSH PRN PRN Hypoglycemia Protocol Diclofenac Sodium 1 applic 05/28/25 09:44 05/28/25 21:54 Diclofenac Sodium 1% 100 Gm Gel (*Bkc) TOPICAL 1 applic BID PRN Administration joint pain Duloxetine HCl 40 mg 05/28/25 09:00 05/30/25 08:45 Duloxetine Hcl 20 Mg Capsule.Dr PO 40 mg DAILY JERRY Administration Ferrous Sulfate 325 mg 05/28/25 09:00 05/30/25 08:45 Ferrous Sulfate [address] PO 325 mg DAILY JERRY Administration Furosemide 40 mg 05/29/25 09:00 05/30/25 08:46 Furosemide 40 Mg Tablet PO 40 mg BID JERRY Administration Glucagon 1 mg 05/27/25 21:13 Glucagon For Inj 1 Mg Vial IM PRN PRN Hypoglycemia Protocol Glucose 15 gm 05/27/25 21:13 Glucose Oral Gel 15 Gm Of Glucse In 37.5 Gm Tube PO PRN PRN Hypoglycemia Protocol Ceftriaxone Sodium 1 gm/ 50 mls @ 100 mls/hr 05/28/25 18:00 05/29/25 17:00 Sodium Chloride IVPB 05/31/25 18:29 100 mls/hr Q24H JERRY Administration Dextrose 1,000 mls @ 100 mls/hr 05/27/25 21:13 Dextrose 5% 1,000 Ml IVPB PRN PRN Hypoglycemia Protocol Insulin Aspart 1 - 3 units 05/28/25 21:00 05/29/25 21:30 Insulin Aspart (*Bkc) 100 Units/Ml SUB-Q 1 units HS JERRY Administration Protocol Insulin Aspart 3 - 6 units 05/28/25 08:00 05/30/25 12:40 Insulin Aspart (*Bkc) 100 Units/Ml SUB-Q 4 units TIDWM JERRY Administration Protocol Insulin Aspart 3 units 05/28/25 08:00 05/30/25 12:40 Insulin Aspart (*Bkc) 100 Units/Ml SUB-Q 3 units TIDWM JERRY Administration Insulin Glargine 12 units 05/28/25 01:50 05/29/25 21:30 Insulin Glargine (*Bkc) 100 Units/Ml SUB-Q 12 units HS JERRY Administration Latanoprost 1 drop 05/28/25 21:00 05/29/25 21:28 Latanoprost 0.005% Op Soln 2.5 Ml Btl EACH EYE 1 drop HS JERRY Administration Levetiracetam 2,000 mg 05/28/25 21:00 05/30/25 08:45 Levetiracetam 500 Mg Tablet PO 2,000 mg Q12HR JERRY Administration Levothyroxine Sodium 112 mcg 05/28/25 06:30 05/30/25 06:42 Levothyroxine Sodium 112 Mcg Tablet PO 112 mcg DAILY@0630 JERRY Administration Levothyroxine Sodium 25 mcg 05/28/25 06:30 05/30/25 06:42 Levothyroxine Sodium 25 Mcg Tablet PO 25 mcg DAILY@0630 JERRY Administration Losartan Potassium 25 mg 05/30/25 09:00 05/30/25 08:46 Losartan Potassium 25 Mg Tablet PO 25 mg DAILY JERRY Administration Magnesium Hydroxide 30 ml 05/28/25 01:43 Magnesium Hydroxide Susp 30 Ml Udc PO HS PRN Constipation Magnesium Oxide 400 mg 05/28/25 09:00 05/30/25 08:45 Magnesium Oxide 400 Mg Tablet PO 400 mg DAILY JERRY Administration Melatonin 5 mg 05/28/25 21:00 05/29/25 21:29 Melatonin 5 Mg Tablet PO 5 mg HS JERRY Administration Metoprolol Succinate 50 mg 05/28/25 09:00 05/30/25 08:46 Metoprolol Succinate Ext Rel 50 Mg Tabcr PO 50 mg DAILY JERRY Administration Ondansetron HCl 4 mg 05/27/25 18:19 Ondansetron Inj 4 Mg/2 Ml Vial IV PUSH Q4H PRN Nausea Pantoprazole Sodium 40 mg 05/28/25 09:00 05/30/25 08:46 Pantoprazole 40 Mg Tablet PO 40 mg QAM JERRY Administration Pentoxifylline 400 mg 05/28/25 09:00 05/30/25 08:46 Pentoxifylline 400 Mg Tabcr PO 400 mg Q12HR JERRY Administration Potassium Chloride 10 meq 05/28/25 08:00 05/30/25 08:45 Potassium Chloride 10 Meq Er Tablet PO 10 meq DAILY@0800 JERRY Administration Pregabalin 200 mg 05/28/25 21:00 05/30/25 09:08 Pregabalin (*Crx) 50 Mg Capsule PO 200 mg Q12HR JERRY Administration Primidone 100 mg 05/28/25 09:00 05/30/25 08:45 Primidone 50 Mg Tablet PO 100 mg BID JERRY Administration Spironolactone 25 mg 05/29/25 09:00 05/30/25 08:48 Spironolactone 25 Mg Tablet PO 25 mg QAM JERRY Administration Tamsulosin HCl 0.8 mg 05/28/25 21:00 05/29/25 21:28 Tamsulosin Hcl 0.4 Mg Capsule PO 0.8 mg HS JERRY Administration Radiology Results: ITS Impressions Chest X-Ray 05/27/25 16:12 IMPRESSION: Left-sided pleural effusion suspected without focal infiltrate. Labs Labs: Laboratory Results - last 24 hr 05/29/25 05/29/25 05/30/25 16:46 19:52 05:19 Sodium 135 L Potassium 4.4 Chloride 102 Carbon Dioxide 25 Anion Gap 8 BUN 31 H Creatinine 1.25 Estim Creat Clear Calc 62 Estimated GFR 58 L Glucose 218 H POC Capillary Glucose 186 H 238 H Calcium 8.7 05/30/25 05/30/25 07:55 12:01 Sodium Potassium Chloride Carbon Dioxide Anion Gap BUN Creatinine Estim Creat Clear Calc Estimated GFR Glucose POC Capillary Glucose 252 H 256 H Calcium Quality VTE Prophylaxis VTE prophylaxis: pharmacologic ordered
--- NOTE | 2025-05-30 16:37 | WPDNEUROLOGY ---
Neurology EEG Report General Information Date of Study: 05/28/25 TEST electroencephalogram DIAGNOSIS seizure disorder and right CVA with left hemiparesis CONDITION OF RECORDING bedside recording EEG NUMBER [id number] CLINICAL HISTORY patient history of witnessed seizures. There is also previous history of right CVA with left hemiparesis EEG DESCRIPTION During wakefulness the background activity consists of posterior dominant alpha rhythm at 9 hertz with an amplitude of 20-40 microvolts which appears moderately formed. Anteriorly low amplitude mixed frequency activity was seen. Hyperventilation or photic stimulation were not performed. Stage I and 2 sleep were recorded during which vertex waves and sleep spindles were noted. IMPRESSION This is a normal EEG obtained during awake and sleep states.
--- NOTE | 2025-05-30 16:43 | WPDNEUROPN ---
Progress Note: A&P Assessment and Plan (1) Seizure disorder: Code(s): G40.909 - Epilepsy, unspecified, not intractable, without status epilepticus Status: Acute (2) Cerebrovascular accident (CVA) with left hemiparesis: Status: Acute (3) Ischemic cardiomyopathy: Code(s): I25.5 - Ischemic cardiomyopathy Status: Chronic (4) Atrial fibrillation: Code(s): I48.91 - Unspecified atrial fibrillation Status: Acute (5) Insulin dependent diabetes mellitus: Status: Chronic (6) Diabetic ulcer of heel: Code(s): E11.621 - Type 2 diabetes mellitus with foot ulcer; L97.409 - Non-pressure chronic ulcer of unspecified heel and midfoot with unspecified severity Status: Acute (7) CKD (chronic kidney disease) stage 3, GFR 30-59 ml/min: Code(s): N18.30 - Chronic kidney disease, stage 3 unspecified Status: Chronic Plan I explained to the patient the drowsiness can occur sensory increase the doses off anticonvulsants. His seizures currently under control. I advised concern regarding significant cardiac disease and diabetes mellitus and hence to look into these as a source for some of the issues that he has had. He is being evaluated by Cardiology. I shall be glad to follow him up from neurologic point of view. His current Eliquis also atorvastatin 40 mg a day. Subjective Date/time seen: 05/30/25 16:43 Interval history: The patient is 64 years old with right CVA and left hemiparesis and seizure disorder was seen for follow-up. He is doing about the same however he does feel drowsy. He has not had any further seizure-like activity. He is currently on Eliquis and besides that he is on Keppra 4000 mg a day and Pregabalin 200 mg twice a day and primidone 100 mg twice a day. he does complain of the numbness and tingling in his both feet more on the left than right side. Also has had source of the heels for which he has soft bruits to prevent further injuries. Review of Systems Review of Systems: All systems reviewed & are unremarkable except as noted in HPI and below Exam Narrative: Fully conscious alert however appears somewhat drowsy at times. No aphasia or dysarthria. Patient has no significant facial weakness. Tongue was midline. Motor weakness in the left upper and lower limb. No involuntary movements were seen. Objective Data Vital Signs Vital Signs: Vital Signs - 24 hr 05/29/25 20:00 05/29/25 22:40 05/30/25 00:00 Temperature 98.2 F Pulse Rate 83 80 75 Respiratory Rate 16 Blood Pressure 163/82 H Pulse Oximetry 95 Oxygen Delivery 05/30/25 04:00 05/30/25 06:00 05/30/25 08:46 Temperature 97.7 F Pulse Rate 68 87 60 Respiratory Rate 16 Blood Pressure 118/71 Pulse Oximetry 93 Oxygen Delivery 05/30/25 08:50 05/30/25 08:50 05/30/25 12:00 Temperature Pulse Rate 60 62 70 Respiratory Rate Blood Pressure Pulse Oximetry 93 Oxygen Delivery Room Air Intake/Output Intake/Output: Intake & Output 05/27/25 05/28/25 05/29/25 05/30/25 23:59 23:59 23:59 23:59 Intake Total 150 2530 3486 1220 Output Total 2650 3800 1800 Balance 653 -136 -879 -420 Meds/Results Medications: Active Medications Generic Name Dose Route Start Last Admin Trade Name Freq PRN Reason Stop Dose Admin Acetaminophen 650 mg 05/27/25 18:19 05/30/25 12:47 Acetaminophen 325 Mg Tablet PO 650 mg Q4H PRN Administration Mild Pain (1-3) or Fever Albuterol/Ipratropium 3 ml 05/28/25 01:43 Ipratropium 0.5 Mg/Albuterol Sulfate 2.5 Mg Ampul.Neb 3 Ml INHALATION Q6H PRN Shortness Of Breath Allopurinol 100 mg 05/28/25 08:00 05/30/25 08:45 Allopurinol 100 Mg Tablet PO 100 mg DAILY@0800 JERRY Administration Apixaban 5 mg 05/28/25 09:00 05/30/25 08:45 Apixaban 5 Mg Tablet PO 5 mg Q12HR JERRY Administration Artificial Tears 1 drop 05/28/25 09:00 05/30/25 08:49 Artificial Tears Ophth Soln 15 Ml Bottle EACH EYE 1 drop BID JERRY Administration Aspirin 81 mg 05/28/25 09:00 05/30/25 08:45 Aspirin 81 Mg Enteric Tablet PO 81 mg DAILY JERRY Administration Atorvastatin Calcium 40 mg 05/28/25 21:00 05/29/25 21:29 Atorvastatin 40 Mg Tablet PO 40 mg HS JERRY Administration Azelastine HCl 1 spray 05/28/25 09:00 05/30/25 08:50 Azelastine Hcl Nasal 0.1% 137 Mcg/Spr 30 Ml Btl NASAL 1 spray Q12HR JERRY Administration Baclofen 10 mg 05/28/25 09:00 05/30/25 12:38 Baclofen 10 Mg Tablet PO 10 mg TID JERRY Administration Brimonidine Tartrate 1 drop 05/28/25 09:00 05/30/25 08:50 Brimonidine Tartrate 0.2% Op Soln 5 Ml Btl EACH EYE 1 drop Q12HR JERRY Administration Dextrose 12.5 gm 05/27/25 21:13 Dextrose 50% 25 Gm/50 Ml Syringe IV PUSH PRN PRN Hypoglycemia Protocol Diclofenac Sodium 1 applic 05/28/25 09:44 05/28/25 21:54 Diclofenac Sodium 1% 100 Gm Gel (*Bkc) TOPICAL 1 applic BID PRN Administration joint pain Duloxetine HCl 40 mg 05/28/25 09:00 05/30/25 08:45 Duloxetine Hcl 20 Mg Capsule.Dr PO 40 mg DAILY JERRY Administration Ferrous Sulfate 325 mg 05/28/25 09:00 05/30/25 08:45 Ferrous Sulfate [address] PO 325 mg DAILY JERRY Administration Furosemide 40 mg 05/29/25 09:00 05/30/25 08:46 Furosemide 40 Mg Tablet PO 40 mg BID JERRY Administration Glucagon 1 mg 05/27/25 21:13 Glucagon For Inj 1 Mg Vial IM PRN PRN Hypoglycemia Protocol Glucose 15 gm 05/27/25 21:13 Glucose Oral Gel 15 Gm Of Glucse In 37.5 Gm Tube PO PRN PRN Hypoglycemia Protocol Ceftriaxone Sodium 1 gm/ 50 mls @ 100 mls/hr 05/28/25 18:00 05/29/25 17:00 Sodium Chloride IVPB 05/31/25 18:29 100 mls/hr Q24H JERRY Administration Dextrose 1,000 mls @ 100 mls/hr 05/27/25 21:13 Dextrose 5% 1,000 Ml IVPB PRN PRN Hypoglycemia Protocol Insulin Aspart 1 - 3 units 05/28/25 21:00 05/29/25 21:30 Insulin Aspart (*Bkc) 100 Units/Ml SUB-Q 1 units HS JERRY Administration Protocol Insulin Aspart 3 - 6 units 05/28/25 08:00 07/26/25 12:40 Insulin Aspart (*Bkc) 100 Units/Ml SUB-Q 4 units TIDWM JERRY Administration Protocol Insulin Aspart 3 units 05/28/25 08:00 05/30/25 12:40 Insulin Aspart (*Bkc) 100 Units/Ml SUB-Q 3 units TIDWM JERRY Administration Insulin Glargine 12 units 05/28/25 01:50 05/29/25 21:30 Insulin Glargine (*Bkc) 100 Units/Ml SUB-Q 12 units HS JERRY Administration Latanoprost 1 drop 05/28/25 21:00 05/29/25 21:28 Latanoprost 0.005% Op Soln 2.5 Ml Btl EACH EYE 1 drop HS JERRY Administration Levetiracetam 2,000 mg 05/28/25 21:00 05/30/25 08:45 Levetiracetam 500 Mg Tablet PO 2,000 mg Q12HR JERRY Administration Levothyroxine Sodium 112 mcg 05/28/25 06:30 05/30/25 06:42 Levothyroxine Sodium 112 Mcg Tablet PO 112 mcg DAILY@0630 JERRY Administration Levothyroxine Sodium 25 mcg 05/28/25 06:30 05/30/25 06:42 Levothyroxine Sodium 25 Mcg Tablet PO 25 mcg DAILY@0630 JERRY Administration Losartan Potassium 25 mg 05/30/25 09:00 05/30/25 08:46 Losartan Potassium 25 Mg Tablet PO 25 mg DAILY JERRY Administration Magnesium Hydroxide 30 ml 05/28/25 01:43 Magnesium Hydroxide Susp 30 Ml Udc PO HS PRN Constipation Magnesium Oxide 400 mg 05/28/25 09:00 05/30/25 08:45 Magnesium Oxide 400 Mg Tablet PO 400 mg DAILY JERRY Administration Melatonin 5 mg 05/28/25 21:00 05/29/25 21:29 Melatonin 5 Mg Tablet PO 5 mg HS JERRY Administration Metoprolol Succinate 50 mg 05/28/25 09:00 05/30/25 08:46 Metoprolol Succinate Ext Rel 50 Mg Tabcr PO 50 mg DAILY JERRY Administration Ondansetron HCl 4 mg 05/27/25 18:19 Ondansetron Inj 4 Mg/2 Ml Vial IV PUSH Q4H PRN Nausea Pantoprazole Sodium 40 mg 05/28/25 09:00 05/30/25 08:46 Pantoprazole 40 Mg Tablet PO 40 mg QAM JERRY Administration Pentoxifylline 400 mg 05/28/25 09:00 05/30/25 08:46 Pentoxifylline 400 Mg Tabcr PO 400 mg Q12HR JERRY Administration Potassium Chloride 10 meq 05/28/25 08:00 05/30/25 08:45 Potassium Chloride 10 Meq Er Tablet PO 10 meq DAILY@0800 JERRY Administration Pregabalin 200 mg 05/28/25 21:00 05/30/25 09:08 Pregabalin (*Crx) 50 Mg Capsule PO 200 mg Q12HR JERRY Administration Primidone 100 mg 05/28/25 09:00 05/30/25 08:45 Primidone 50 Mg Tablet PO 100 mg BID JERRY Administration Spironolactone 25 mg 05/29/25 09:00 05/30/25 08:48 Spironolactone 25 Mg Tablet PO 25 mg QAM JERRY Administration Tamsulosin HCl 0.8 mg 05/28/25 21:00 05/29/25 21:28 Tamsulosin Hcl 0.4 Mg Capsule PO 0.8 mg HS JERRY Administration Radiology Results: ITS Impressions Chest X-Ray 05/27/25 16:12 IMPRESSION: Left-sided pleural effusion suspected without focal infiltrate. Labs Labs: Laboratory Results - last 24 hr 05/29/25 05/29/25 05/30/25 16:46 19:52 05:19 Sodium 135 L Potassium 4.4 Chloride 102 Carbon Dioxide 25 Anion Gap 8 BUN 31 H Creatinine 1.25 Estim Creat Clear Calc 62 Estimated GFR 58 L Glucose 218 H POC Capillary Glucose 186 H 238 H Calcium 8.7 05/30/25 05/30/25 07:55 12:01 Sodium Potassium Chloride Carbon Dioxide Anion Gap BUN Creatinine Estim Creat Clear Calc Estimated GFR Glucose POC Capillary Glucose 252 H 256 H Calcium
[2025-05-30 17:24] LABS: Cholesterol 119 mg/dL (0-200); HDL Direct 22 mg/dL; Triglycerides 191 mg/dL (<150)
[2025-05-30] MEDS: cefTRIAXone 1 GM in SODIUM CHLORIDE 0.9% IV 50 ML 100 ML IVPB (17:40)
[2025-05-30] MEDS: MELATONIN 5 MG TABLET PO (22:21)
[2025-05-30] MEDS: TAMSULOSIN HCL 0.4 MG CAPSULE 0.8 MG PO (22:21)
[2025-05-30] MEDS: INSULIN GLARGINE (*BKC) 100 UNITS/ML 12 UNITS SUB-Q (22:22)
[2025-05-30] MEDS: LATANOPROST 0.005% OP SOLN 2.5 ML BTL 1 DROP EACH EYE (22:24)
[2025-05-30] MEDS: ATORVASTATIN 40 MG TABLET PO (22:26)
[2025-05-31] VITALS: PULSE 61
[2025-05-31 04:00] VITALS: PULSE 61
[2025-05-31 06:00] VITALS: BP 111/63; PULSE 64; RESP 16; TEMP 36.9; O2SAT 93
[2025-05-31] MEDS: LEVOTHYROXINE SODIUM 25 MCG TABLET PO (06:08)
[2025-05-31] MEDS: LEVOTHYROXINE SODIUM 112 MCG TABLET PO (06:08)
[2025-05-31] MEDS: ACETAMINOPHEN 325 MG TABLET 650 MG PO (06:09)
[2025-05-31] MEDS: DICLOFENAC SODIUM 1% 100 GM GEL (*BKC) 1 APPLIC TOPICAL (06:10)
[2025-05-31] MEDS: PREGABALIN (*CRX) 50 MG CAPSULE 200 MG PO (09:29)
[2025-05-31] MEDS: PRIMIDONE 50 MG TABLET 100 MG PO ×2 (09:30→16:31)
[2025-05-31 09:31] VITALS: PULSE 66
[2025-05-31] MEDS: BACLOFEN 10 MG TABLET PO ×3 (09:31→16:31)
[2025-05-31] MEDS: FUROSEMIDE 40 MG TABLET PO ×2 (09:31→16:32)
[2025-05-31] MEDS: POTASSIUM CHLORIDE 10 MEQ ER TABLET PO (09:31)
[2025-05-31] MEDS: PENTOXIFYLLINE 400 MG TABCR PO (09:31)
[2025-05-31] MEDS: METOPROLOL SUCCINATE EXT REL 50 MG TABCR PO (09:31)
[2025-05-31] MEDS: APIXABAN 5 MG TABLET PO (09:31)
[2025-05-31] MEDS: MAGNESIUM OXIDE 400 MG TABLET PO (09:31)
[2025-05-31] MEDS: PANTOPRAZOLE 40 MG TABLET PO (09:32)
[2025-05-31] MEDS: ASPIRIN 81 MG ENTERIC TABLET PO (09:32)
[2025-05-31] MEDS: FERROUS SULFATE 325 MG TABLET DR PO (09:32)
[2025-05-31] MEDS: SPIRONOLACTONE 25 MG TABLET PO (09:32)
[2025-05-31] MEDS: LOSARTAN POTASSIUM 25 MG TABLET PO (09:32)
[2025-05-31] MEDS: BRIMONIDINE TARTRATE 0.2% OP SOLN 5 ML BTL 1 DROP EACH EYE (09:33)
[2025-05-31] MEDS: AZELASTINE HCL NASAL 0.1% 137 MCG/SPR 30 ML BTL 1 SPRAY NASAL (09:33)
[2025-05-31] MEDS: ARTIFICIAL TEARS OPHTH SOLN 15 ML BOTTLE 1 DROP EACH EYE ×2 (09:34→16:32)
[2025-05-31] MEDS: INSULIN ASPART (*BKC) 100 UNITS/ML SUB-Q ×3 (09:42→13:24)
[2025-05-31 14:00] VITALS: BP 133/72; PULSE 72; RESP 16; TEMP 36.4; O2SAT 92
--- NOTE | 2025-05-31 14:04 | PM.DS ---
DS: Admitting Diagnosis Discharge Date 05/31/25 Admitting Diagnosis -seizure-like activity -presyncope -elevated troponin -combined systolic and diastolic CHF -gouty olecranon bursitis of left elbow -history of ventricular tachycardia -abnormal urinalysis -T2DM -seizure disorder -history of CVA -CAD -atrial fibrillation -hypothyroidism DS: Discharge Diagnosis Discharge Diagnosis (1) Observed seizure-like activity: Code(s): R56.9 - Unspecified convulsions Status: Acute (2) Pre-syncope: Code(s): R55 - Syncope and collapse Status: Acute (3) Elevated troponin: Code(s): R79.89 - Other specified abnormal findings of blood chemistry Status: Acute (4) Combined systolic and diastolic congestive heart failure: Code(s): I50.40 - Unspecified combined systolic (congestive) and diastolic (congestive) heart failure Status: Acute (5) Gouty olecranon bursitis of left elbow: Code(s): M10.9 - Gout, unspecified Status: Acute (6) Ventricular tachycardia: Code(s): I47.20 - Ventricular tachycardia, unspecified Status: Chronic (7) Abnormal urinalysis: Code(s): R82.90 - Unspecified abnormal findings in urine Status: Acute (8) Type 2 diabetes mellitus with hyperglycemia, with long-term current use of insulin: Code(s): E11.65 - Type 2 diabetes mellitus with hyperglycemia; Z79.4 - detention (current) use of insulin Status: Chronic (9) Acute kidney injury superimposed on chronic kidney disease: Code(s): N17.9 - Acute kidney failure, unspecified; N18.9 - Chronic kidney disease, unspecified Status: Acute (10) Seizure disorder: Code(s): G40.909 - Epilepsy, unspecified, not intractable, without status epilepticus Status: Acute (11) Cerebrovascular accident (CVA) with left hemiparesis: Status: Acute (12) Coronary artery disease: Code(s): I25.10 - Atherosclerotic heart disease of [place] coronary artery without angina pectoris Status: Chronic (13) Atrial fibrillation: Code(s): I48.91 - Unspecified atrial fibrillation Status: Acute (14) Hypothyroidism: Qualifiers: Hypothyroidism type: unspecified Qualified Code(s): E03.9 - Hypothyroidism, unspecified Code(s): E03.9 - Hypothyroidism, unspecified Status: Chronic DS: Summary Hospital Course Reason for hospitalization: - seizure-like activity - UTI Hospital Course: Patient is a 64 yo male with history of epilepsy, HFrEF, AFib, diabetes and gout who presented to the ER with concern for seizure-like activity. Chest x-ray showed left-sided pleural effusion (chronic per comparison). UA with 2+ leukocytes, >100 WBC. Patient was admitted for concern for breakthrough seizure in setting of possible urinary tract infection. Neurology was consulted due to concern for breakthrough seizure. EEG was obtained and normal. Neurology was consulted and recommended to increase patient's Keppra and Lyrica dosing. Patient had no further seizure-like activity while admitted. He will follow-up with neurology as outpatient. Upon further discussion with the patient he also had presyncopal type symptoms. Patient has extensive cardiac history including prior history of systolic heart failure and ventricular tachycardia. EKG showed normal sinus rhythm with no acute ST changes, new T-wave inversions in V1 and V2. Troponin I 2.21, 2.08, 1.76. Echo 05/28/25 showed EF 15-20%, reduced RV systolic function, severely dilated left atrium, moderate aortic stenosis and severe pulmonary hypertension. Patient denied chest pain and remained in normal sinus rhythm on telemetry. Cardiology was consulted and felt troponin elevation was likely demand ischemia in setting seizure-like activity and did not recommend any intervention. Cardio has recommended ICD placement in the past and patient was lost to follow-up. The patient and patient's were instructed to follow-up very closely with cardiology on discharge to discuss ICD placement. Cardiology plans to send EP referral. Patient declines Life Vest. Plan to continue metoprolol, Jardiance, Aldactone and Lasix. Patient was started on losartan. Patient had abnormal urinalysis concerning for urinary tract infection. There was concern that UTI might have caused a breakthrough seizure. Patient did not complain of any specific new urinary symptoms. Patient does have prior history of abnormal urinalysis in which follow-up urine cultures have been negative. Nevertheless, he was treated with IV Rocephin while admitted and transitioned to Keflex on discharge to a 7-day course. Urine culture data was not resulted due to lab delays and will be followed up on discharge. Will call patient's facility and adjust antibiotics if needed. Patient noted to have swelling of the left olecranon. Patient has prior history of tophaceous gout and olecranon bursitis. This has been ongoing for quite some time. The elbow was free of erythema, warmth or drainage. The patient remained afebrile without leukocytosis. The case was discussed with Orthopedic surgery Dr. Sanchez who did not recommend aspiration at this time due to low suspicion for infection. Patient was instructed to follow up as outpatient. Patient has history of chronic kidney disease and creatinine remained stable admitted. Plan to continue home Eliquis and beta-jalen in setting of atrial fibrillation. Continue aspirin, statin in setting of coronary artery disease s/p CABG. Continue Synthroid in setting of hypothyroidism. Patient was discharged to nursing home facility in stable condition. Discharge plan discussed with patient's over the phone. Status at Discharge Overall status at discharge: patient is back to baseline Time Spent with Patient Time attestation: Total time spent providing and/or coordinating discharge services: Time spent: Greater than 30 minutes Exam Narrative: General: NAD Eyes: EOMI ENT: neck supple Cardiovascular: Regular rate and rhythm Respiratory: Clear to auscultation, respirations even and unlabored on RA Gastrointestinal: Soft, non tender Genitourinary: no suprapubic tenderness Musculoskeletal: No edema, left olecranon with significant swelling, but no erythema, tenderness or warmth. No drainage. Skin: warm, dry Neuro: Alert. Face symmetric, speech clear. Psych: Mood appropriate DS: Data Data Completed and Pending Completed studies during hospitalization: - CXR Pending studies at discharge: - urine culture Labs on day of discharge: Labs from last 24 hours 05/31/25 05/31/25 05/30/25 12:05 08:15 22:41 POC Capillary Glucose 207 H 182 H 239 H Triglycerides Cholesterol LDL Cholesterol Direct HDL Direct 05/30/25 05/30/25 05/30/25 19:56 17:07 05:17 POC Capillary Glucose 224 H 210 H Triglycerides 191 H Cholesterol 119 LDL Cholesterol Direct 52 HDL Direct 22 Preliminary micro results at discharge 05/27/25 16:43 - Preliminary Urine Clean Catch Discharge Plan Discharge Attending physician on discharge: Mary Wesley Consulting providers: Liv Cochran; Brittanie Carlin; Alex Iglesias; Kana Sanchez Discharging Clinician: Ross,Liv J. Anticipated Discharge Date/Time: 05/30/25 10:50 Patient Disposition: SNF Activity: as tolerated Diet: as tolerated Discharge Instructions: Take all medications as prescribed. Finish antibiotics if prescribed, even if you are feeling better. While in hospital, you were diagnosed with a possible urinary tract infection. You have been prescribed antibiotics to cover for this. We will call your facility if your antibiotic needs adjusted after urine culture has resulted. While in the hospital, patient's seizure medications were increased. Please follow-up with Dr. Carlin as an outpatient. It is important to follow-up with your tube coater to discuss low ejection fraction and defibrillator placement due to your history of cardiac arrhythmia. It is also important to follow-up with orthopedic surgery regarding left elbow swelling. Monitor left elbow for increased redness, pain, drainage suggesting infection. If signs of infection occur, return to the emergency department. Consider starting a probiotic due to frequent infections. Follow-up with your primary care provider in one week. Return to the emergency department if you develop chest pain, shortness of breath, persistent fever >100.4, confusion, loss of consciousness. Patient Instructions: Urinary Tract Infection in Older Adults (GEN) Patient Language: [place] Island[place] Stand Alone Forms: General Discharge Information Follow-up/Referrals: Kana Sanchez MD [Physician] - Call for Appointment (left elbow swelling) Alex Iglesias MD [Physician] - Call for Appointment Brittanie Carlin MD [Physician] - Call for Appointment (for seizures) Discharge Medications: New losartan 25 mg Tablet 25 mg PO DAILY Qty: 30 0RF cephalexin 500 mg capsule 500 mg PO Q12H Qty: 6 0RF pregabalin [Lyrica] 50 mg Capsule 200 mg PO Q12HR Qty: 24 0RF Continued spironolactone 25 mg tablet 25 mg PO DAILY allopurinol 100 mg tablet 100 mg PO DAILY primidone 50 mg tablet 100 mg PO BID miconazole nitrate 2 % cream 1 applic topical HS Rx Instructions: apply to penis atorvastatin 40 mg tablet 40 mg PO HS levothyroxine 137 mcg tablet 137 mcg PO QAM aspirin 81 mg Tablet,Delayed Release (Dr/Ec) 81 mg PO DAILY tamsulosin 0.4 mg capsule 0.8 mg PO HS glucagon 1 mg Kit 1 mg subcut PRN PRN (Reason: Hypoglycemia) omeprazole 20 mg Capsule,Delayed Release(Dr/Ec) 20 mg PO DAILY insulin lispro [Humalog KwikPen Insulin] 100 unit/mL Insulin Pen 3 unit SUBCUT AC potassium chloride 10 mEq tablet extended release 10 meq PO DAILY loperamide 2 mg Capsule 2 mg PO Q12H PRN (Reason: Diarrhea) Rx Instructions: give 1 capsule by mouth every 12 hours as needed for diarrhea. Do not exceed 16mg in any 24 hour period. Notify Provider if symptoms persist after 24 hours Eliquis 5 mg tablet 5 mg PO Q12H artificial tears solution Drops 1 drp ophthalmic (eye) BID cranberry 450 mg tablet 450 mg PO BID Rx Instructions: administer with meals Drizalma Sprinkle 20 mg capsule, delayed rel sprinkle 40 mg PO DAILY ferrous sulfate 325 mg (65 mg iron) tablet,delayed release (DR/EC) 325 mg PO DAILY guaifenesin 600 mg tablet extended release 12hr 600 mg PO Q12H PRN (Reason: congestion) bimatoprost 0.03 % drops 1 drp EACH EYE QPM metoprolol succinate 50 mg tablet extended release 24 hr 50 mg PO DAILY midazolam 5 mg/spray (0.1 mL) spray,non-aerosol 5 mg intranasal ONCE PRN (Reason: seizure activity) Rx Instructions: may repeat dose in other nostril after 10 minutes if inadequate response Mounjaro 5 mg/0.5 mL pen injector 5 mg subcut WEEKLY Rx Instructions: SUNDAY pentoxifylline 400 mg tablet extended release 400 mg PO Q12H Rx Instructions: must administer with a meal/food albuterol sulfate [Ventolin HFA] 90 mcg/actuation HFA aerosol inhaler 2 inh inhalation Q4H PRN (Reason: shortness of breath or wheezing) furosemide 40 mg tablet 80 mg PO BID Jardiance 25 mg tablet 25 mg PO DAILY baclofen 5 mg tablet 10 mg PO TID latanoprost 0.005 % drops 1 drp EACH EYE HS ipratropium-albuterol 0.5 mg-3 mg(2.5 mg base)/3 mL Solution For Nebulization 3 ml INHALATION Q6H PRN (Reason: Shortness Of Breath) brimonidine 0.2 % drops 1 drp EACH EYE BID diclofenac sodium 1 % gel 1 ea TOPICAL BID Rx Instructions: apply to BLE acetaminophen [Acetaminophen Extra Strength] 500 mg Tablet 1,000 mg PO Q8H MDD 3000mg PRN (Reason: Pain (Scale Score 4-6)) azelastine 137 mcg (0.1 %) Aerosol,[place] 1 spray INTRANASAL Q12H Rx Instructions: administer into each nostril magnesium oxide 400 mg (241.3 mg magnesium) tablet 400 mg PO DAILY bisacodyl 10 mg Suppository 10 mg RECTAL DAILY PRN (Reason: Constipation) Rx Instructions: if no results from MOM insulin lispro [Humalog KwikPen Insulin] 100 unit/mL Insulin Pen 1 sliding scale dose SUBCUT USEASDIRECTD Rx Instructions: sliding scale 151-200 3 201-250 6 251-300 9 301-350 12 351-400 15 If >400, call polyethylene glycol 3350 17 gram Powder In Packet 17 g PO DAILY PRN (Reason: Constipation) magnesium hydroxide [Milk of Magnesia] 400 mg/5 mL Suspension 30 ml PO HS PRN (Reason: Constipation) Rx Instructions: if no BM in 3 days triamcinolone acetonide 0.1 % Cream 1 applic TOPICAL BID PRN (Reason: dermatitis) Qty: 15 0RF Rx Instructions: apply to face and neck redness topically two times a day for dermatitis multivitamin [Multiple Vitamins] Tablet 1 tablet PO DAILY Fleet Enema 19-7 gram/118 mL Enema 118 ml RECTAL USEASDIRECTD PRN (Reason: Constipation) Rx Instructions: insert one application rectally as needed for constipation if no results 1 day after suppository melatonin 5 mg Tablet 5 mg PO HS lorazepam 2 mg/mL Solution 0.5 mg IM Q4H PRN (Reason: Seizures) insulin glargine [Lantus Solostar U-100 Insulin] 100 unit/mL (3 mL) insulin pen 12 unit SUBCUT HS magnesium citrate [Citroma] Solution 296 ml PO DAILY PRN (Reason: Constipation) Rx Instructions: administer if no results after enema Changed levetiracetam [Keppra] 500 mg tablet 2,000 mg PO Q12HR Qty: 84 0RF Discontinued pregabalin 75 mg capsule 150 mg PO BID Date of admission: 05/30/25 15:28 Primary Care Provider: Bryan Panchal Admitting Provider: Christine Amaya Attending physician on admission: Christine Amaya Condition: Stable Hospitalist MIPS Heart Failure (Exclusion) Patient has history of Heart Transplant or Left Ventricular Assistive Device?: No IF YES, STOP HERE Heart Failure (Qualifier) Patient has current or prior documentation of LVEF less than or equal to 40%, or mod/servere depressed LVSF?: Yes IF NO, STOP HERE If Yes, Heart Failure (Qualifier) Patient was prescribed or already taking an Angiotensin-Converting Enzyme (JOSE) Inhibitor, or Antiotensin Receptor Jalen (ARB): Yes Patient was prescribed or already taking bisoprolol, carvedilol, or sustained release metoprolol succinate: Yes
--- NOTE | 2025-06-03 08:08 | PC.NURSE ---
Urine cx showing mixed normal urogenital johnny.
--- NOTE | 2025-12-17 18:22 | WNDPHOTO ---
PHOTO ONLY - See Nursing Notes and/ or assessments for documentation.
== END 2025-05-31 17:05 | DRG 101 ==
LOC: ANHED 18:32 → ANH3MEDSUR 19:32 → ANH3MED 20:35
PROVIDERS: Internal Medicine; Psychiatry & Neurology Neurology; Admitting Provider Family Medicine; Emergency Provider Emergency Medicine; Visit Provider Physician Assistant
DX: G40.909 Epilepsy, unspecified, not intractable, without status epilepticus (principal); N39.0 Urinary tract infection, site not specified; N17.9 Acute kidney failure, unspecified; I50.42 Chronic combined systolic (congestive) and diastolic (congestive) heart failure; I47.20 Ventricular tachycardia, unspecified; I24.89 Other forms of acute ischemic heart disease; I69.354 Hemiplegia and hemiparesis following cerebral infarction affecting left non-dominant side; I13.0 Hypertensive heart and chronic kidney disease with heart failure and stage 1 through stage 4 chronic kidney disease, or unspecified chronic kidney disease; L97.429 Non-pressure chronic ulcer of left heel and midfoot with unspecified severity; M10.022 Idiopathic gout, left elbow; E11.65 Type 2 diabetes mellitus with hyperglycemia; E11.22 Type 2 diabetes mellitus with diabetic chronic kidney disease; N18.30 Chronic kidney disease, stage 3 unspecified; E78.5 Hyperlipidemia, unspecified; I25.10 Atherosclerotic heart disease of native coronary artery without angina pectoris; I25.5 Ischemic cardiomyopathy; R55 Syncope and collapse; E03.9 Hypothyroidism, unspecified; I48.0 Paroxysmal atrial fibrillation; E11.621 Type 2 diabetes mellitus with foot ulcer; H40.9 Unspecified glaucoma; I35.0 Nonrheumatic aortic (valve) stenosis; G25.81 Restless legs syndrome; Z79.4 Long term (current) use of insulin; Z95.1 Presence of aortocoronary bypass graft; Z79.01 Long term (current) use of anticoagulants; I25.2 Old myocardial infarction; Z98.1 Arthrodesis status; Z87.891 Personal history of nicotine dependence
CPT/HCPCS: 36415; 71045; 80048; 80053; 80061; 81001; 82948; 83735; 84443; 84484; 85025; 85027; 85055; 87086; 93005; 95816; 96361; 96365; 96367; 96375; 99212; 99285; A9270; C8929; G0378; G0463; J0696; J1815; J1953; J7030; Q9957

== ENCOUNTER 2025-08-16 17:40 | Emergency (ER) | payer MEDICARE, MEDICAID, SELFPAY ==
[2025-08-16] VITALS (18 sets, daily range): BP systolic 105–133; BP diastolic 64–90; PULSE 64–72; RESP 11–20; TEMP 37; O2SAT 90–95
--- NOTE | ~2025-08-16 | CT_ITS ---
EXAMINATION: CT brain wo con DATE: 08/16/2025 20:17 INDICATION: Altered mental status. TECHNIQUE: Computed tomography (CT) of the head was performed without intravenous contrast. The mA was adjusted according to patient size. Iterative reconstruction technique was employed. The dose-length product was 681.00 mGy-cm. COMPARISON: Head CT 01/24/2025 FINDINGS: There is an old infarct involving the right temporal parietal occipital region, right posterior insula, and right thalamus. There is no intracranial hemorrhage, acute infarction, or abnormal intracranial mass lesion. There is ex vacuo dilatation of right lateral ventricle. The orbits are normal. There is mild mucosal thickening in the paranasal sinuses. The mastoid air cells are normal. IMPRESSION: 1. Old infarct involving the right temporal parietal occipital region, right posterior insula, and right thalamus. Reviewed, dictated and finalized at location E. IMPRESSION: 1. Old infarct involving the right temporal parietal occipital region, right po sterior insula, and right thalamus.
--- NOTE | 2025-08-16 18:10 | ECG_ITS ---
Test Date: 2025-08-16 18:21:46 Measurements Intervals Garrett Rate: 67 P: 56 GA: 199 QRS: -33 QRSD: 142 T: 115 QT: 457 QTc: 484 Interpretive Statements SINUS RHYTHM LEFT AXIS DEVIATION INTRAVENTRICULAR CONDUCTION DELAY LEFT VENTRICULAR HYPERTROPHY WITH ST-T CHANGE CANNOT R/O SEPTAL INFARCT, AGE INDETERMINATE INFERIOR INFARCT, AGE INDETERMINATE ABNORMAL ECG Compared to ECG 05/28/2025 10:31:54 NO SIGNIFICANT CHANGE Electronically Signed On 08-16-2025 19:55:40 CDT by Valentín James D.O.
[2025-08-16 18:22] LABS: Hematocrit 42.6 % (42.0-52.0); Hemoglobin 13.4 g/dL (14.0-18.0); Immature Granulocyte Percent A 1.8 % (0-0.5); Immature Platelet Fraction Pct 4.2 % (0.9-11.2); Lymphocytes Absolute Auto 0.84 K/mm3 (0.9-3.2); Mean Corpuscular HGB Conc 31.5 g/dl (32-36); Mean Corpuscular Hemoglobin 29.8 pg (26-34); Mean Corpuscular Volume 94.7 fl (80-100); Nucleated Red Blood Cells Absolute Auto 0.000 K/mm3 (0.0-0.012); Nucleated Red Blood Cells Perc 0.0 % (0.0-0.2); Platelet Count Result 121 k/mm3 (150-375); Red Blood Count 4.50 M/mm3 (4.6-6.20); White Blood Count 6.7 K/mm3 (4.5-10.0)
--- NOTE | 2025-08-16 18:25 | PC.NURSE ---
65yo M BIBEMS from [facility] for mental status change while being treated for MRSA UTI. A&Ox4, speech clear. RR even and unlabored. Skin WDL. Pt voided into urinal without difficulty. PIV placed, blood work obtained and sent to lab. UA sent to lab.
[2025-08-16 18:30] LABS: Add Urine Microscopic? YES; Alanine Aminotransferase 70 U/L (6-50); Albumin Level 3.7 g/dL (3.5-5.1); Alkaline Phosphatase 193 U/L (38-126); Anion Gap 11 mmol/L (4-12); Appearance Urine Cloudy (Clear); Aspartate Amino Transferase 81 U/L (17-59); Bilirubin,Total 0.4 mg/dL (0.2-1.3); Blood Urea Nitrogen 51 mg/dL (9-20); Budding Yeast Urine Present /hpf; Calcium 8.2 mg/dL (8.4-10.2); Carbon Dioxide 23 mmol/L (22-30); Chloride 100 mmol/L (98-107); Estimated CRCL calculation 51 ml/min; Estimated Glomerular Filt Rate 39; Glucose 224 mg/dL (65-110); Glucose Urine UA 3+ mg/dL (Negative); Leukocyte Esterase Ur 2+ LEU/UL (Negative); Nitrate Urine Negative (Negative); Non Pathogenic Casts 0-2; Potassium 5.1 mmol/L (3.4-5.0); Sodium 134 mmol/L (137-145); Specific Grav Ur 1.012 (1.001-1.035); Total Protein 8.0 g/dL (6.3-8.2)
[2025-08-16 18:34] LABS: INR 1.2; Prothrombin Time 15.0 Seconds (11.1-14.7)
[2025-08-16 18:35] LABS: Partial Thromboplastin Time 42.4 Seconds (22.3-36.8)
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
--- OUTSIDE RECORDS SUMMARY | 2025-08-16 18:47 | XMS_ITS | Clinical Summary ---
Author Organization [facility] Address [address] [place] [address] Care Team Providers Care Printing Supplies Sales Representative Name Role Phone None, Physician Primary Care Provider Unavailabl e Source Comments [facility],non-owned Affiliates and Associated Physician Practices is amultiple site organization consisting of ambulatory clinics and hospital sitesin [place] and [place]. This disclosure is being madepursuant to the Care Everywhere program and may not contain all information available regarding this patient. 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) 07/28/2025 3:05 PM CDT Clinical Support [facility] - Ophthalmology [address] [place] [phone] Arpan Luong MD 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 No 02/05/2023 Sex and Gender [...] 04/03/2023 12:31 AM CDT Plan of Treatment Upcoming Encounters Date Type Department Care Team (Late st Contact Info) Description 08/19/2025 2:30 PM CDT Office Visit [facility] - Ophthalmology [address] [place] [address] Said, Yvonne, OD [address] [place] [address] Health Maintenance Due Date Last Done Comments COLOGUARD (AGES 45-75) - COL ON CA SCREENING 1958 COLON MONITORING 1958 COLONOSCOPY - COLON CA SCREENING 1958 CT COLONOGRAPHY - COLON CA SCREENING 1958 Colorectal Cancer Screening 1958 FIT - COLON CA SCREENING 1958 FLEX SIG - COLON CA SCREENING 1958 HEPATITIS C SCREENING 07/31/1976 PNEUMOCOCCAL VACCINE 50+ (1 of 1 - PCV) 2008 ZOSTER VACCINE (1 of 2) 2008 DEPRESSION SCREENING 11/05/2024 MEDICARE AWV CALENDAR YEAR 2024 COVID-19 VACCINE (4 - 2024-2 6 season) 2025 10/19/2022, 02/16/2022, 01/12/2022 INFLUENZA VACCINE (#1) 2025 DTAP/TDAP/TD VACCINES (2 - T d or Tdap) 06/06/2031 06/06/2021 Respiratory Syncytial Virus [...] A/C/Y/W VACCINE Aged Out No longer eligible b ased on patient's age to complete this topic Procedures Procedure Name Priority Date/Time Associated Diagnosis Comments CORNEAL TOPOGRAPHY UNI/BI Routine 07/28/2025 3:03 PM CDT Combined forms of age-related cataract of both eyes IOL MASTER Routine 07/28/2025 3:03 PM CDT Combined forms of age-related cataract of both eyes from Last 3 Months Results * CORNEAL TOPOGRAPHY UNI/BI (07/28/2025 3:03 PM CDT) Anatomical Region Laterality Modality Head External-Camera Photography Narrative 07/29/2025 12:14 PM CDT Images from the original result were not included. OD: OS: us Arpan Luong MD OPHTHALMOLOGY SCHED ORD W PAC S Final Result * IOL MASTER (07/28/2025 3:03 PM CDT) Anatomical Region Laterality Modality External-Camera Photography Narrative 07/29/2025 12:10 PM CDT Images from the original result were not included. Biometry was performed and reviewed for IOL power calculation using IOL master for lens selection during surgery. us Arpan Luong MD OPHTHALMOLOGY SCHED ORD W PAC S Final Result from Last 3 Months Insurance MEDICAID - OUT OF STATE MEDICARE [facility] MANAGED MEDICARE ADV Care Teams Printing Supplies Sales Representative Relationship Specialty Start Date End Date None, Physician PCP - General 07/28/25
--- OUTSIDE RECORDS SUMMARY | 2025-08-16 18:47 | XMS_ITS | Clinical Summary ---
Author Organization [facility] Address [address] [place] [address] Care Team Providers Care Pit Supervisor Name Role Phone Unavailable Primary Care Provider [...] 01/23/2019 1:34 PM CDT Plan of Treatment Health Maintenance Due Date Last Done Comments CT Colonography 1960 Colonoscopy 1958 Colorectal Cancer Screening 1958 FIT-DNA (Cologuard) 1958 FIT 1958 FOBT 1958 Sigmoidoscopy 1958 Annual Visit Topic 1959 MMR Vaccines (1 of 1 - Stand krysta series) 1959 Hepatitis C Screening 1976 DTaP/Tdap/Td Vaccines (1 - Tdap) 1977 Pneumococcal Vaccine: 65+ Ye ars (1 of 2 - PCV) 2008 PSA Test 2013 HIB Vaccines Aged Out No longer eligi ble based on patient's age to complete this topic HPV Vaccines Aged Out No longer eligi ble based on patient's age to complete this topic Hepatitis A Vaccines Aged Out No long er eligible based on patient's age to complete this topic Hepatitis B Vaccines Aged Out No long er eligible based on patient's age to complete this topic IPV Vaccines Aged Out No longer eligi ble based on patient's age to complete this topic Meningococcal Vaccine Aged Out No graciela claudia eligible based on patient's age to complete this topic Advance Directives * Full Resuscitation (Latest Code Status on File) Date Activated Date Inactivated Comments 01/22/2019 8:10 PM 02/13/2019 2:18 PM
--- OUTSIDE RECORDS SUMMARY | 2025-08-16 18:47 | XMS_ITS | Patient Health Record ---
Author Organization [facility] Address [address] [place] [address] Care Team Providers Care Farm Specialist Name Role Phone Xiomy Melendez Unavailable [phone] Reason For Referral No Information Medications Medication SIG (Take, Route, Frequency, Duration) Notes Start Date End Date Status Spironolactone 25 MG Tablet Oral 05/27/2021 Active INSULIN LISPRO (U-100) 100 UNIT/ML SUBCUTANEOUS SOLUTION *Reorder from [facility] for eRx and Interaction Alerts* 05/27/2021 Active Tamsulosin HCl 0.4 MG Capsule Oral 05/27/2021 Active Ondansetron HCl 4 MG Tablet Oral 05/27/2021 Active rOPINIRole HCl 1 MG Tablet Oral 05/27/2021 Active Lisinopril 2.5 MG Tablet Oral 05/27/2021 Active Allopurinol 100 MG Tablet Oral 05/27/2021 Active Sertraline HCl 50 MG Tablet Oral 05/27/2021 Active Gabapentin 600 MG Tablet Oral 05/27/2021 Active Sertraline HCl 25 MG Tablet Oral 05/27/2021 Active Cyclobenzaprine HCl 5 MG Tablet Oral 05/27/2021 Active Warfarin Sodium 3 MG Tablet Oral 05/27/2021 Active Benzonatate 100 MG Capsule Oral 05/27/2021 Active Furosemide 40 MG Tablet Oral 05/27/2021 Active Doxycycline Hyclate 100 MG Capsule Oral 05/27/2021 Active Lantus 100 UNIT/ML Solution Subcutaneous 05/27/2021 Active metOLazone 5 MG Tablet Oral 05/27/2021 Active amLODIPine Besylate 5 MG Tablet Oral 05/27/2021 Active Pantoprazole Sodium 40 MG Tablet Delayed Release Oral 05/27/2021 Active Silver sulfADIAZINE 1 % Cream External 05/27/2021 Active Atorvastatin Calcium 40 MG Tablet Oral 05/27/2021 Active amLODIPine Besylate 2.5 MG Tablet Oral 05/27/2021 Active Furosemide 80 MG Tablet Oral 05/27/2021 Active Amoxicillin-Pot Clavulanate 875-125 MG Tablet Oral 05/27/2021 Active Lantus SoloStar 100 UNIT/ML Solution Pen-injector Subcutaneous 05/27/2021 Active Warfarin Sodium 4 MG Tablet Oral 05/27/2021 Active Carvedilol 6.25 MG Tablet Oral 05/27/2021 Active Allopurinol 300 MG Tablet Oral 05/27/2021 Active Gentamicin Sulfate 0.1 % Cream External 05/27/2021 Active Levothyroxine Sodium 137 MCG Tablet Oral 05/27/2021 Active metFORMIN HCl 500 MG Tablet Oral 05/27/2021 Active Azithromycin 250 MG Tablet Oral 05/27/2021 Active Azithromycin 500 MG Tablet Oral 05/27/2021 Active Finasteride 5 MG Tablet Oral 05/27/2021 Active Warfarin Sodium 1 MG Tablet Oral 05/27/2021 Active Gabapentin 300 MG Capsule Oral 05/27/2021 Active Fluticasone Propionate Diskus 50 MCG/ACT Aerosol Powder Breath Activated Inhalation *Reorder from [facility] for eRx and Interaction Alerts* 05/27/2021 Active traMADol HCl 50 MG Tablet Oral 05/27/2021 Active ProAir HFA 108 (90 Base) MCG/ACT Aerosol Solution Inhalation 05/27/2021 Active Ipratropium-Albuterol 0.5-2.5 (3) MG/3ML Solution Inhalation 05/27/2021 Active Baclofen 5 mg TABLET ORAL 05/27/2021 Active Social History Social History Additional Details Category Social Info Options Details Migrated Social History Migrated Social History Tobacco Years: Never smoker 04/12/2021 Plan Of Treatment No Information Insurance Providers Payer Name Payer Address Payer Phone Subscriber Number Group Number Insured Name Patient Relationship to Insured Coverage Start Date Coverage End Date [facility] [place] Medicaid Replacement - [employer]mo [address] [place] [phone] [id number] JOSE ORTIZ Self - patient is the insured
--- OUTSIDE RECORDS SUMMARY | 2025-08-16 18:47 | XMS_ITS | Clinical Summary ---
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 Immunizations Immunization Administration Dates Next Due Covid-19, Mrna, Lnp-s, Pf, 30 Mcg/0.3 Ml Dose (P fizer) 02/16/2022,01/12/2022 Pneumococcal Vaccine - 13 Valent 03/22/2021 Pneumococcal conjugate PCV20 , polysaccharide [id number] conjugate, adjuvant, PF 11/02/2022 TDAP Vaccine 06/06/2021 [...] 02/19/2025 11:37 AM CDT Plan of Treatment Health Maintenance Due Date Last Done Comments Hepatitis C Virus (HCV) Screening 1958 Cologuard 2003 Colonoscopy 2003 Colorectal Cancer Screening 2003 Immunochemical Fecal Occult Blood 2003 Zoster Immunization (1 of 2) 2008 Respiratory Syncytial Virus (RSV) Immunization (Adult) (1 - Risk 60-74 years 1-dose series) 2018 AAA Screening Ultrasound 2023 Medicare Initial AWV [id number] 11/05/2024 Influenza Immunization (#1) 2025 11/02/2022 SARS-COV-2 Immunization ( season) 2025 10/19/2022, 02/16/2022, 01/12/2022 Td Immunization Every 10 [...] Procedure Name Priority Date/Time Associated Diagnosis Comments XR - CHEST 05/27/2025 12:00 AM CDT PSA DIAGNOSTIC,TOTAL Routine 11/27/2024 11:45 AM SCHEDULER MAINTENANCE Normocytic anemia Bladder-neck obstruction from Last 3 Months or Most Recently Relevant to Health Maintenance Results * XR - CHEST (05/27/2025 12:00 AM CDT) 05/27/2025 us Provider Scan IMG DIAGNOSTIC ORDERABLES Final Result Performing Organization Address [facility] Co de Phone Number SCAN * PSA DIAGNOSTIC,TOTAL (11/27/2024 11:45 AM SCHEDULER MAINTENANCE) PSA, TOTAL (PROSTATIC SPECIFIC ANTIGEN) 1.07 <4.00 ng/mL 11/27/2024 1:10 PM SCHEDULER MAINTENANCE [facility] Blood Venipuncture / Unknown 11/27/2024 11:45 AM SCHEDULER MAINTENANCE 11/27/2024 11:45 AM SCHEDULER MAINTENANCE Narrative [facility] - 11/27/2024 1:10 PM SCHEDULER MAINTENANCE PSA NOTE: The PSA value should be used in conjunction with information available from clinical evaluation and other diagnostic procedures. The [employer] Total PSA assay is a Chemiluminescent Microparticle Immunoassay (CMIA) for the quantitative determination of total PSA (both free PSA and PSA complexed to [id number]) in human serum. Total PSA values obtained with different assay methods, including Kaplan PSA assays, cannot be used interchangeably. Bryan Panchal MD CHEMISTRY ORDERABLES Fin al Result Performing Organization Address [facility] de Phone Number [facility] [address] [place] [address] from Last 3 Months or Most Recently Relevant to Health Maintenance Insurance [facility] Advance Directives Documents on File Type Date Recorded Patient Manager Medicaid Expl anation Power of Lead Esthetician for Health Care 08/12/2024 3:33 PM Authorization to Dis close Health Info/Life-sustaining treatment/POA/ Personal Manager Medicaid Designation Care Teams Bilingual Interpreter Relationship Specialty Start Date End Date Caitlin Castillo MD [address] [facility] [address] [place] [address] PCP - General Family Medicine 07/10/24 Micah Romero MD [address] [facility], [facility] [address] [place] [address] Consulting Physician Urology 07/10/24
--- NOTE | 2025-08-16 19:52 | ED.AMS ---
HPI - Altered Mental Status General Chief Complaint: Altered Mental Status Stated Complaint: ams Time Seen by Provider: 08/16/25 18:18 History of Present Illness HPI narrative: Patient is a 65-year-old male who presents to the ER with altered mental status and weakness. He reports he lives that look bowel a longterm due to a previous left-sided stroke. Patient reports the nursing staff at [facility] was concerned because his mental status changed earlier today. He reports that he was recently diagnosed with MRSA in his urine and was started on IV antibiotics on Sunday, 6 days ago. Patient endorses a history of triple bypass surgery, diabetes, and seizures. He denies any shortness of breath, headache, new onset pain, or urinary symptoms. Related Data Home Medications ?Medication ?Instructions ?Recorded ?Confirmed ?Last Taken ?Type aspirin 81 mg tablet,delayed 81 mg PO DAILY 03/30/21 05/27/25 1 Day Ago History release ~01/07/23 atorvastatin 40 mg tablet 40 mg PO HS high cholesterol 03/30/21 05/27/25 1 Day Ago History ~01/07/23 levothyroxine 137 mcg tablet 137 mcg PO QAM hypothyroidism 03/30/21 05/27/25 1 Day Ago History ~01/07/23 tamsulosin 0.4 mg capsule 0.8 mg PO HS benign prostatic 03/30/21 05/27/25 1 Day Ago History hyperplasia ~01/07/23 baclofen 5 mg tablet 10 mg PO TID 06/09/22 05/27/25 1 Day Ago History ~01/07/23 empagliflozin 25 mg tablet 25 mg PO DAILY type 2 diabetes 06/09/22 05/27/25 1 Day Ago History (Jardiance) ~01/07/23 ipratropium 0.5 mg-albuterol 3 mg 3 ml inhalation Q6H PRN Shortness 06/09/22 05/28/25 1 Day Ago History (2.5 mg base)/3 mL nebulization Of Breath ~01/07/23 soln latanoprost 0.005 % eye drops 1 drp EACH EYE HS glaucoma 06/09/22 05/27/25 1 Day Ago History ~01/07/23 brimonidine 0.2 % eye drops 1 drp EACH EYE BID glaucoma 12/29/22 05/27/25 1 Day Ago History ~01/07/23 diclofenac sodium 1 % topical gel 1 ea topical BID 12/29/22 05/27/25 1 Day Ago History ~01/07/23 acetaminophen 500 mg tablet 1,000 mg PO Q8H PRN Pain (Scale 03/06/23 05/27/25 Unknown History (Acetaminophen Extra Strength) Score 4-6) azelastine 137 mcg (0.1 %) nasal 1 spray intranasal Q12H allergic 03/06/23 05/27/25 Unknown History spray rhinitis magnesium oxide 400 mg (241.3 mg 400 mg PO DAILY hypomagnesemia 03/06/23 05/27/25 Unknown History magnesium) tablet glucagon 1 mg injection kit 1 mg subcut PRN PRN Hypoglycemia 04/17/23 05/27/25 Unknown History insulin lispro 100 unit/mL 3 unit subcut AC 04/17/23 05/27/25 Unknown History subcutaneous pen (Humalog KwikPen (U-100) Insulin) omeprazole 20 mg capsule,delayed 20 mg PO DAILY 04/17/23 05/27/25 Unknown History release miconazole nitrate 2 % topical 1 applic topical HS 06/14/23 05/27/25 Unknown History cream bisacodyl 10 mg rectal suppository 10 mg RECTAL DAILY PRN Constipation 01/02/24 05/27/25 Unknown History insulin lispro 100 unit/mL 1 sliding scale dose subcut 01/02/24 05/27/25 Unknown History subcutaneous pen (Humalog KwikPen USEASDIRECTD (U-100) Insulin) magnesium hydroxide 400 mg/5 mL 30 ml PO HS PRN Constipation 01/02/24 05/27/25 Unknown History oral suspension (Milk of Magnesia) polyethylene glycol 3350 17 gram 17 g PO DAILY PRN Constipation 01/02/24 05/27/25 Unknown History oral powder packet potassium chloride 10 mEq 10 meq PO DAILY 02/11/24 05/27/25 Unknown History tablet,extended release loperamide 2 mg capsule 2 mg PO Q12H PRN Diarrhea 03/13/24 05/27/25 Unknown History melatonin 5 mg tablet 5 mg PO HS 08/17/24 05/27/25 Unknown History multivitamin (Multiple Vitamins 1 tablet PO DAILY 08/17/24 05/27/25 Unknown History tablet) sodium phosphates 19 gram-7 118 ml RECTAL USEASDIRECTD PRN 08/17/24 05/27/25 Unknown History gram/118 mL enema (Fleet Enema) Constipation insulin glargine 100 unit/mL (3 12 unit subcut HS 09/22/24 05/27/25 Unknown History mL) subcutaneous pen (Lantus Solostar U-100 Insulin) lorazepam 2 mg/mL injection 0.5 mg IM Q4H PRN Seizures 09/22/24 05/27/25 Unknown History solution magnesium citrate (Citroma oral 296 ml PO DAILY PRN Constipation 09/22/24 05/27/25 Unknown History solution) allopurinol 100 mg tablet 100 mg PO DAILY 02/18/25 05/27/25 Unknown History primidone 50 mg tablet 100 mg PO BID 02/18/25 05/27/25 Unknown History spironolactone 25 mg tablet 25 mg PO DAILY 02/18/25 05/27/25 Unknown History albuterol sulfate 90 mcg/actuation 2 inh inhalation Q4H PRN shortness 05/27/25 05/27/25 Unknown History aerosol inhaler (Ventolin HFA) of breath or wheezing apixaban 5 mg tablet (Eliquis) 5 mg PO Q12H 05/27/25 05/27/25 Unknown History artificial tears solution eye drops 1 drp ophthalmic (eye) BID 05/27/25 05/27/25 Unknown History bimatoprost 0.03 % eye drops 1 drp EACH EYE QPM 05/27/25 05/27/25 Unknown History cranberry fruit 450 mg tablet 450 mg PO BID 05/27/25 05/27/25 Unknown History (cranberry) duloxetine 20 mg capsule,delayed 40 mg PO DAILY 05/27/25 05/27/25 Unknown History release sprinkle (Drizalma Sprinkle) ferrous sulfate 325 mg (65 mg 325 mg PO DAILY 05/27/25 05/27/25 Unknown History iron) tablet,delayed release furosemide 40 mg tablet 80 mg PO BID 05/27/25 05/27/25 Unknown History guaifenesin 600 mg tablet, 600 mg PO Q12H PRN congestion 05/27/25 05/27/25 Unknown History extended release 12 hr metoprolol succinate 50 mg 50 mg PO DAILY 05/27/25 05/27/25 Unknown History tablet,extended release 24 hr midazolam 5 mg/spray (0.1 mL) 5 mg intranasal ONCE PRN seizure 05/27/25 05/27/25 Unknown History nasal spray activity pentoxifylline 400 mg 400 mg PO Q12H 05/27/25 05/27/25 Unknown History tablet,extended release tirzepatide 5 mg/0.5 mL 5 mg subcut WEEKLY 05/27/25 05/27/25 Unknown History subcutaneous pen injector (Mounjaro) Allergies Allergy/AdvReac Type Severity Reaction Status Date / Time No Known Allergies Allergy Unknown Verified 08/16/25 17:52 Review of Systems Review of Systems: All systems reviewed & are unremarkable except as noted in HPI and below [facility] Past Medical History Medical History Gouty arthritis of elbow Gouty arthritis of left elbow Arthritis of left elbow Left elbow pain Gouty olecranon bursitis of left elbow Atrial fibrillation 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 spastic hemiplegia Ventricular tachycardia Cerebrovascular accident Pulmonary hypertension Severe pulmonary hypertension with RVSP of 81 non echo December 2023 Chronic kidney disease, stage 3 Seizure disorder With epileptiform discharges from the left anterior temporal region on EKG December 2022 consistent with history of focal seizures Glaucoma Depression Current use of watermaster anticoagulation Insulin dependent diabetes mellitus Myocardial infarction (01/2019) Late presentation ID found to have severe three-vessel disease, transferred to [facility] for emergent bypass with perioperative ventricular fibrillation arrest. Gout Hypothyroidism Chronic anemia (01/2019) Post CABG right parietal infarction resultant hemiplegia. Benign prostatic hyperplasia Hyperlipidemia Hypertension Ischemic cardiomyopathy EF was 20 to 25% and May 2023. Coronary artery disease Status post three-vessel bypass and left ventricular aneurysm repair in February 2019 at [facility]. Combined systolic and diastolic congestive heart failure EF 20-25% on echocardiogram December 2023 with grade 2 diastolic dysfunction, severe pulmonary hypertension with RVSP of 81, moderate aortic stenosis with peak velocity of to 4 mean gradient of 9 valve area 1.4 consistent with low-flow low gradient aortic stenosis RLS (restless legs syndrome) Surgical History Surgical History History of cardiac catheterization History of fusion of cervical spine History of coronary artery bypass graft (~02/2019) Three-vessel bypass and surgical repair of left ventricular aneurysm at [facility]. Family History Family History Mother Patient's mother is Hypertension Father Malignant neoplasm of prostate Patient's father is Sibling Lung cancer Sibling Heart attack Social History Social History Social History: He reports that he has not been home since approximately 2019 due to difficulties with mobility he has had to stay in the longterm since then. 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 Code status: Full code. Smoking packs per day: 1.5 Smoking cigarettes per day: 30.0 Years smoked: 30 Smoking pack-years: 45.00 Smoking status: Former smoker Second hand tobacco smoke exposure: No Alcohol intake: former Substance use: never Substance use type: does not use Do You Feel Safe in your Home?: Yes Lack of Transportation: No Lack of Food: Never True Current Housing: I Have Housing Concerned About Future Housing: No Difficulty Paying Gas/Electric Bills: No Difficulty Paying for Meds: No Currently Unemployed: No Education: High School Diploma/GED Difficulty w/ Childcare or Family Care: No Living arrangements: longterm Additional living arrangements comments: . He has resided at [facility] since 2019. 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 Spiritual care concerns: No Exam Narrative: GENERAL: Well appearing, obese, non-toxic, in no acute distress. HEAD: Normocephalic, atraumatic. NECK: Supple. No adenopathy, no masses. RESPIRATORY: Airway patent, respirations nonlabored. Clear to auscultation bilaterally, no rales, rhonchi, wheezing. CARDIOVASCULAR: Regular rate and rhythm with murmur, rubs, or gallops. Peripheral pulses 2+ and equal bilaterally. ABDOMINAL: Soft, nontender, nondistended, no hepatosplenomegaly. Normoactive BS. MUSCULOSKELETAL: Moves all right-sided extremities (baseline). R sided strength/ROM intact without gross deformities. SKIN: Warm, dry, normal color. No rashes. NEURO: A&O X3. Speech clear. PSYCHIATRIC: Appropriate mood and affect. Normal interaction. Course Vital Signs Vital signs: Vital Signs Temperature 37.0 C 08/16/25 17:46 Pulse Rate 72 08/16/25 17:46 Respiratory Rate 20 08/16/25 17:46 Blood Pressure 133/76 08/16/25 17:46 Pulse Oximetry 93 08/16/25 17:46 Oxygen Delivery Room Air 08/16/25 17:46 Temperature 37.0 C 08/16/25 17:46 Pulse Rate 67 08/17/25 01:45 Respiratory Rate 11 L 08/17/25 01:45 Blood Pressure 114/64 08/16/25 23:30 Pulse Oximetry 95 08/16/25 22:15 Oxygen Delivery Room Air 08/16/25 18:22 MDM - Altered Mental Status MDM Narrative Medical decision making narrative: Patient is a 65-year-old male who presents to the ER with altered mental status and weakness. He reports he lives that look bowel a longterm due to a previous left-sided stroke. Patient reports the nursing staff at [facility] was concerned because his mental status changed earlier today. He reports that he was recently diagnosed with MRSA in his urine and was started on IV antibiotics on Sunday, 6 days ago. Patient endorses a history of triple bypass surgery, diabetes, and seizures. He denies any shortness of breath, headache, new onset pain, or urinary symptoms. Labs Ordered: CBC, CMP, CK, lactic acid, COVID/flu/RSV, UA, PTT, INR Imaging Ordered: CT brain Medications Ordered: 1 L normal saline IV bolus x 2 Results: Patient's CT head indicates no intracranial hemorrhage. No significant alteration from the prior examination dated 01/24/2025. No new mass effect or midline shift. Chronic encephalomalacia involving the posterior right hemisphere, similar morphologic appearance. Diffuse underlying parenchymal involutional changes with prominence of the cerebral sulci and sylvian fissures. Similar asymmetric ex vacuo dilatation of the right lateral ventricle. The paranasal sinuses and mastoid air cells are well-aerated. His urinalysis indicated a urinary tract infection. Most of patient's current blood work results were similar to previous results. Diagnosis: Altered mental status, mild dehydration, urinary tract infection (known) Patient Education/Shared MDM: Results of lab work and imaging shared with patient. He continues to denies the need for pain medication. Patient will receive his regularly scheduled vancomycin IV while here in the ER. His urinalysis indicated a urinary tract infection, which he is already being treated for at the longterm. He was given 2 L normal saline IV bolus and will be discharged back to his longterm. Patient strongly advised to maintain hydration status upon discharge and follow-up with his PCP as soon as possible. He will not be discharged home with any new prescriptions. Strict return precautions provided. Patient verbalized understanding and is in agreement with plan. Vital signs stable at time of discharge. All questions answered. Differential Diagnosis Differential diagnosis: Likely altered mental status, delirium, dementia, hypoglycemia, hyponatremia and subarachnoid hemorrhage Lab Data Attestation: I reviewed the patient's lab results. 08/16/25 18:12 08/16/25 18:12 Labs: Lab Results 08/16/25 08/16/25 Range/Units 18:12 20:40 WBC 6.7 (4.5-10.0) K/mm3 RBC 4.50 L (4.6-6.20) M/mm3 Hgb 13.4 L (14.0-18.0) g/dL Hct 42.6 (42.0-52.0) % MCV 94.7 (80-100) fl MCH 29.8 (26-34) pg MCHC 31.5 L (32-36) g/dl RDW 14.6 H (11.5-14.5) % Plt Count 121 L (150-375) k/mm3 MPV 11.1 H (7.4-10.4) fl Immature Gran % (Auto) 1.8 H (0-0.5) % Neut % (Auto) 70.6 (45.5-73.1) % Lymph % (Auto) 12.6 L (18.3-44.2) % [place] % (Auto) 10.1 H (2.6-8.5) % Eos % (Auto) 4.1 (0-4.4) % Baso % (Auto) 0.8 (0.2-1.2) % Lymph # (Auto) 0.84 L (0.9-3.2) K/mm3 [place] # (Auto) 0.7 H (0.1-0.6) K/mm3 Eos # (Auto) 0.3 (0-0.3) K/mm3 Baso # (Auto) 0.1 (0.0-0.1) K/mm3 Abs Immat Gran (auto) 0.12 H (0.00-0.031) K/mm3 Absolute Neuts (auto) 4.7 (1.3-6.7) K/mm3 Absolute Nucleated RBC 0.000 (0.0-0.012) K/mm3 Nucleated RBC % 0.0 (0.0-0.2) % % Immature Plt Fraction 4.2 (0.9-11.2) % PT 15.0 H (11.1-14.7) Seconds INR 1.2 APTT 42.4 H (22.3-36.8) Seconds Sodium 134 L (137-145) mmol/L Potassium 5.1 H (3.4-5.0) mmol/L Chloride 100 (98-107) mmol/L Carbon Dioxide 23 (22-30) mmol/L Anion Gap 11 (4-12) mmol/L BUN 51 H D (9-20) mg/dL Creatinine 1.77 H (0.7-1.3) mg/dL Estim Creat Clear Calc 51 ml/min Estimated GFR 39 L (59 - ) Glucose 224 H (65-110) mg/dL Lactic Acid 1.3 (0.7-2.0) mmol/L Calcium 8.2 L (8.4-10.2) mg/dL Total Bilirubin 0.4 (0.2-1.3) mg/dL AST 81 H (17-59) U/L ALT 70 H (6-50) U/L Alkaline Phosphatase 193 H (38-126) U/L Total Creatine Kinase 68 (55-170) U/L C-Reactive Protein 3.2 H (<1.0) mg/dL Total Protein 8.0 (6.3-8.2) g/dL Albumin 3.7 (3.5-5.1) g/dL Urine Color Yellow (Yellow) Urine Appearance Cloudy H (Clear) Urine pH 5.5 (5.0-9.0) Ur Specific [place] 1.012 (1.001-1.035) Urine Protein 1+ H (Negative) mg/dL Urine Glucose (UA) 3+ H (Negative) mg/dL Urine Ketones Negative (Negative) mg/dL Ur Blood (Man) Non-hemolyzed trace (Negative) Urine Nitrate Negative (Negative) Urine Bilirubin Negative (Negative) Urine Urobilinogen 0.2 (<2.0) mg/dL Leukocyte Esterase Rfl 2+ H (Negative) BRENDA/UL Urine RBC 0-2 (0-2) /hpf Urine WBC >100 H (0-3) /hpf Ur Squamous Epith Cells None seen (Few) /hpf Urine Bacteria None seen /hpf Urine Casts 0-2 Urine Yeast (Budding) Present H (None) /hpf Influenza A (RT-PCR) Negative (Negative) Influenza B (RT-PCR) Negative (Negative) RSV (RT-PCR) Negative (Negative) SARS-CoV-2 RNA (RT-PCR) Negative (Negative) Imaging Data Attestation: I personally reviewed and interpreted this imaging study as follows: Radiologist's impression: Chronic encephalomalacia involving the posterior right hemisphere, similar morphologic appearance. Diffuse underlying parenchymal involutional changes with prominence of the cerebral sulci and sylvian fissures. Similar asymmetric ex vacuo dilatation of the right lateral ventricle. The paranasal sinuses and mastoid air cells are well-aerated. Diagnosis: Discharge Plan Discharge Clinical Impression: Altered mental status, Urinary tract infection, History of CVA (cerebrovascular accident) CKD (chronic kidney disease) stage 3, GFR 30-59 ml/min Qualifiers: Chronic kidney disease stage 3 subtype: stage 3a (GFR 45-59) Qualified Code(s): N18.31 - Chronic kidney disease, stage 3a Patient Disposition: [place] Long Term/Asst Living Condition: Stable Instructions: Antibiotic Form, Altered Mental Status (ED) Additional Instructions: Please return to the ER with any worsening symptoms. Follow-up with primary care provider as soon as possible to ensure your urinary tract infection is resolving. Take all medications as prescribed, including regularly scheduled medications. Please remember to drink lots of water. Patient Language: [place] Zealander Prescriptions: No Action spironolactone 25 mg tablet 25 mg PO DAILY allopurinol 100 mg tablet 100 mg PO DAILY primidone 50 mg tablet 100 mg PO BID miconazole nitrate 2 % cream 1 applic topical HS Rx Instructions: apply to penis atorvastatin 40 mg tablet 40 mg PO HS levothyroxine 137 mcg tablet 137 mcg PO QAM aspirin 81 mg Tablet,Delayed Release (Dr/Ec) 81 mg PO DAILY tamsulosin 0.4 mg capsule 0.8 mg PO HS glucagon 1 mg Kit 1 mg subcut PRN PRN (Reason: Hypoglycemia) omeprazole 20 mg Capsule,Delayed Release(Dr/Ec) 20 mg PO DAILY insulin lispro [Humalog KwikPen Insulin] 100 unit/mL Insulin Pen 3 unit SUBCUT AC potassium chloride 10 mEq tablet extended release 10 meq PO DAILY loperamide 2 mg Capsule 2 mg PO Q12H PRN (Reason: Diarrhea) Rx Instructions: give 1 capsule by mouth every 12 hours as needed for diarrhea. Do not exceed 16mg in any 24 hour period. Notify Provider if symptoms persist after 24 hours Eliquis 5 mg tablet 5 mg PO Q12H artificial tears solution Drops 1 drp ophthalmic (eye) BID cranberry 450 mg tablet 450 mg PO BID Rx Instructions: administer with meals Drizalma Sprinkle 20 mg capsule, delayed rel sprinkle 40 mg PO DAILY ferrous sulfate 325 mg (65 mg iron) tablet,delayed release (DR/EC) 325 mg PO DAILY guaifenesin 600 mg tablet extended release 12hr 600 mg PO Q12H PRN (Reason: congestion) bimatoprost 0.03 % drops 1 drp EACH EYE QPM metoprolol succinate 50 mg tablet extended release 24 hr 50 mg PO DAILY midazolam 5 mg/spray (0.1 mL) spray,non-aerosol 5 mg intranasal ONCE PRN (Reason: seizure activity) Rx Instructions: may repeat dose in other nostril after 10 minutes if inadequate response Mounjaro 5 mg/0.5 mL pen injector 5 mg subcut WEEKLY Rx Instructions: SUNDAY pentoxifylline 400 mg tablet extended release 400 mg PO Q12H Rx Instructions: must administer with a meal/food albuterol sulfate [Ventolin HFA] 90 mcg/actuation HFA aerosol inhaler 2 inh inhalation Q4H PRN (Reason: shortness of breath or wheezing) furosemide 40 mg tablet 80 mg PO BID losartan 25 mg Tablet 25 mg PO DAILY Qty: 30 0RF pregabalin [Lyrica] 50 mg Capsule 200 mg PO Q12HR Qty: 24 0RF levetiracetam [Keppra] 500 mg tablet 2,000 mg PO Q12HR Qty: 84 0RF Jardiance 25 mg tablet 25 mg PO DAILY baclofen 5 mg tablet 10 mg PO TID latanoprost 0.005 % drops 1 drp EACH EYE HS ipratropium-albuterol 0.5 mg-3 mg(2.5 mg base)/3 mL Solution For Nebulization 3 ml INHALATION Q6H PRN (Reason: Shortness Of Breath) brimonidine 0.2 % drops 1 drp EACH EYE BID diclofenac sodium 1 % gel 1 ea TOPICAL BID Rx Instructions: apply to BLE acetaminophen [Acetaminophen Extra Strength] 500 mg Tablet 1,000 mg PO Q8H MDD 3000mg PRN (Reason: Pain (Scale Score 4-6)) azelastine 137 mcg (0.1 %) Aerosol,[place] 1 spray INTRANASAL Q12H Rx Instructions: administer into each nostril magnesium oxide 400 mg (241.3 mg magnesium) tablet 400 mg PO DAILY bisacodyl 10 mg Suppository 10 mg RECTAL DAILY PRN (Reason: Constipation) Rx Instructions: if no results from MOM insulin lispro [Humalog KwikPen Insulin] 100 unit/mL Insulin Pen 1 sliding scale dose SUBCUT USEASDIRECTD Rx Instructions: sliding scale 151-200 3 201-250 6 251-300 9 301-350 12 351-400 15 If >400, call polyethylene glycol 3350 17 gram Powder In Packet 17 g PO DAILY PRN (Reason: Constipation) magnesium hydroxide [Milk of Magnesia] 400 mg/5 mL Suspension 30 ml PO HS PRN (Reason: Constipation) Rx Instructions: if no BM in 3 days triamcinolone acetonide 0.1 % Cream 1 applic TOPICAL BID PRN (Reason: dermatitis) Qty: 15 0RF Rx Instructions: apply to face and neck redness topically two times a day for dermatitis multivitamin [Multiple Vitamins] Tablet 1 tablet PO DAILY Fleet Enema 19-7 gram/118 mL Enema 118 ml RECTAL USEASDIRECTD PRN (Reason: Constipation) Rx Instructions: insert one application rectally as needed for constipation if no results 1 day after suppository melatonin 5 mg Tablet 5 mg PO HS lorazepam 2 mg/mL Solution 0.5 mg IM Q4H PRN (Reason: Seizures) insulin glargine [Lantus Solostar U-100 Insulin] 100 unit/mL (3 mL) insulin pen 12 unit SUBCUT HS magnesium citrate [Citroma] Solution 296 ml PO DAILY PRN (Reason: Constipation) Rx Instructions: administer if no results after enema Follow-up/Referrals: PHYSICIAN NOT ON STAFF,NONSTAFF [Primary Care Provider] Stand Alone Forms: Prison Discharge Time of Disposition: 22:26
[2025-08-16] MEDS: SODIUM CHLORIDE 0.9% IV 1,000 ML 999 ML IV CONT (20:34)
[2025-08-16 20:59] LABS: Creatine Kinase 68 U/L (55-170)
[2025-08-16 21:04] LABS: CRP 3.2 mg/dL (<1.0)
[2025-08-16 21:23] LABS: Influenza A QL RT-PCR Negative (Negative); Influenza B QL RT-PCR Negative (Negative); RSV RNA, RT-PCR Negative (Negative); SARS-CoV-2 RNA PCR Negative (Negative)
[2025-08-16] MEDS: SODIUM CHLORIDE 0.9% IV 1,000 ML 500 ML IV CONT (22:15)
[2025-08-16] MEDS: VANCOMYCIN 1,500 MG/NS 500 ML 1,500 MG/500 ML BAG 250 MG IVPB (23:12)
[2025-08-17] VITALS (24 sets, daily range): BP systolic 112–123; BP diastolic 70–80; PULSE 67–76; RESP 11–22; O2SAT 99
--- NOTE | 2025-08-17 06:36 | PC.NURSE ---
Nurse to nurse report given to Leslie at [facility] [phone]
== END 2025-08-17 08:27 ==
PROVIDERS: Emergency Medicine; Emergency Provider Registered Nurse
DX: R41.82 Altered mental status, unspecified (principal); N39.0 Urinary tract infection, site not specified; Z86.73 Personal history of transient ischemic attack (TIA), and cerebral infarction without residual deficits; I13.0 Hypertensive heart and chronic kidney disease with heart failure and stage 1 through stage 4 chronic kidney disease, or unspecified chronic kidney disease; E11.22 Type 2 diabetes mellitus with diabetic chronic kidney disease; N18.30 Chronic kidney disease, stage 3 unspecified; I50.82 Biventricular heart failure; Z79.4 Long term (current) use of insulin; Z20.822 Contact with and (suspected) exposure to COVID-19; I27.20 Pulmonary hypertension, unspecified; G40.909 Epilepsy, unspecified, not intractable, without status epilepticus; F32.A Depression, unspecified; E03.9 Hypothyroidism, unspecified; D64.9 Anemia, unspecified; I25.10 Atherosclerotic heart disease of native coronary artery without angina pectoris; R94.31 Abnormal electrocardiogram [ECG] [EKG]
CPT/HCPCS: 36415; 70450; 80053; 81001; 82550; 83605; 85025; 85055; 85610; 85730; 86140; 87086; 87637; 93005; 96361; 96365; 99284; J3373; J7030